=== PATIENT | female | born 1955 | race Hispanic/Latino ===

== ENCOUNTER 2018-01-17 15:17 | Inpatient (IN) | payer MEDICAID, MEDICARE, OTHER ==
[~2018-01-17 15:17] MED LIST: QUELICIN ONE; VERSED IV ONE
[2018-01-17] MEDS ORDERED: NACL 0.9% 1000 ML 1,000 ML ONE ×3 (15:21→22:14)
[2018-01-17] MEDS ORDERED: NACL 0.9% 500 ML 500 ML IV ONE (15:33)
[2018-01-17] MEDS ORDERED: D50W (25GM) Vial IV ONE (15:38)
[2018-01-17] MEDS ORDERED: D50W (25GM) Syringe IV ONE ×3 (16:00→19:31)
[2018-01-17] MEDS ORDERED: VERSED IV ONE (16:02)
[2018-01-17] MEDS ORDERED: DIPRIVAN 10 MG/ML 1,000 MG/100 ML BOTTLE IV ONE (16:06)
[2018-01-17] MEDS ORDERED: QUELICIN IV ONE (16:30)
--- NOTE | 2018-01-17 16:35 | Emergency Department Report ---
ED Altered Mental Status HPI - General Chief Complaint: Hypoglycemia Stated Complaint: LOW BLOOD PRESSURE Time Seen by Provider: 01/17/18 15:45 Source: patient, EMS Mode of arrival: Stretcher Limitations: No Limitations - History of Present Illness Initial Comments: She is a 62-year-old female that presented to the emergency room via EMS found down in bathroom. Patient is A&OX2. Patient is oriented to person and place. But confused to situation and and date. Patient was found to be hypoxic by EMS and placed on nonrebreather MD Complaint: altered mental status, confusion, decreased responsiveness, weakness -: Sudden Severity: severe Context: unknown Associated Symptoms: denies other symptoms Treatments Prior to Arrival: glucose, IV fluid, oxygen - Related Data Home Medications Medication Instructions Recorded Confirmed Last Taken Lisinopril 40 mg PO DAILY 01/17/18 01/17/18 Unknown Allergies Allergy/AdvReac Type Severity Reaction Status Date / Time Penicillins Allergy Hives Verified 01/17/18 15:27 ED Review of Systems ROS: Stated complaint: LOW BLOOD PRESSURE Other details as noted in HPI Comment: Unobtainable due to pts medical conditions ED Past Medical Hx - Past Medical History Previous Medical History?: Yes Hx Hypertension: Yes - Surgical History Past Surgical History?: No - Family History Family history: no significant - Social History Smoking Status: Never Smoker Substance Use Type: None - Medications Home Medications: Home Medications Medication Instructions Recorded Confirmed Last Taken Type Lisinopril 40 mg PO DAILY 01/17/18 01/17/18 Unknown History ED Physical Exam - General Limitations: No Limitations General appearance: alert, lethargic, in distress - Head Head exam: Present: atraumatic, normocephalic - Eye Eye exam: Present: normal appearance Pupils: Present: normal accommodation - ENT ENT exam: Present: mucous membranes dry - Neck Neck exam: Present: normal inspection - Respiratory Respiratory exam: Present: respiratory distress, rhonchi, accessory muscle use, decreased breath sounds - Cardiovascular Cardiovascular Exam: Present: regular rate, normal rhythm. Absent: systolic murmur, diastolic murmur, rubs, gallop - GI/Abdominal GI/Abdominal exam: Present: soft, normal bowel sounds - Extremities Exam Extremities exam: Present: normal inspection - Back Exam Back exam: Present: normal inspection - Neurological Exam Neurological exam: Present: altered - Skin Skin exam: Present: warm, dry, intact, normal color. Absent: rash ED Course Vital Signs 01/17/18 01/17/18 01/17/18 15:27 17:06 18:38 Temperature 97 F L Pulse Rate 99 H 89 90 Respiratory 16 Rate Blood Pressure 83/45 59/32 Blood Pressure 93/49 [Left] O2 Sat by Pulse 99 97 Oximetry 01/17/18 01/17/18 19:02 19:14 Temperature Pulse Rate 90 90 Respiratory Rate Blood Pressure Blood Pressure 77/47 81/47 [Left] O2 Sat by Pulse Oximetry - Reevaluation(s) Reevaluation #1: Patient found to be hypotensive and hypoxic and hypo-thermic. We will intubate patient to support oxygenation and airway. And give hemodynamic support. 01/17/18 15:45 Reevaluation #2: Patient still restless. We'll need to change her sedation back to propofol. Will add another pressor due to hypotension 01/17/18 19:48 Reevaluation #3: Discussed case with Dr. Denny. He agrees to admit patient to ICU.. 01/17/18 20:09 - Central Line Placement Right IJ Consent Obtained: emergent situation Time Out Performed: Yes Patient Placed on Monitor/Pulse Ox: Yes MD Prep: mask, gown, gloves Central Line Prep: Chlorhexidine scrub, sterile drapes applied Local Anesthesia Used: Lidocaine 1% Amount of Anesthesia Used (mls): 5 (mls) Ultrasound Used for Placement: Yes Central Line Lumen Inserted: triple Bloods Obtained for Lab: Yes Central Line Position: good blood return, all ports aspirated, flus, sutured in place with 2-0 Dressing Applied: Tegaderm Post Procedure X-Ray: tip of catheter in good p, pneumothorax seen Patient Tolerated Procedure: well Complications: none - Intubation Time Out Performed: Yes Sedative: Versed Paralytic: Succinylcholine Laryngoscope: fiberoptic video scope ET Tube Size: 7.5 Tube Secured Depth (cm): 22 Tube Secured Location: lips Tube Placement Confirmation: visualized tube passing t, equal breath sounds bilat, no breath sounds over epi, confirmation by capnometr Patient Tolerated Procedure: well Intubation Complications: none - Lab Data Result diagrams: 01/17/18 16:54 01/17/18 16:54 Lab Results 01/17/18 01/17/18 01/17/18 Range/Units 15:25 16:15 16:48 WBC (4.5-11.0) K/mm3 RBC (3.65-5.03) M/mm3 Hgb (10.1-14.3) gm/dl Hct (30.3-42.9) % MCV (79-97) fl MCH (28-32) pg MCHC (30-34) % RDW (13.2-15.2) % Plt Count (140-440) K/mm3 Lymph % (Auto) [place] % (Auto) Eos % (Auto) Baso % (Auto) Lymph # [place] # Eos # Baso # Add Manual Diff Total Counted Seg Neutrophils % Seg Neuts % (Manual) (40.0-70.0) % Band Neutrophils % % Lymphocytes % (Manual) (13.4-35.0) % Reactive Lymphs % (Man) % Monocytes % (Manual) (0.0-7.3) % Eosinophils % (Manual) (0.0-4.3) % Basophils % (Manual) (0.0-1.8) % Metamyelocytes % % Myelocytes % % Promyelocytes % % Blast Cells % % Nucleated RBC % Seg Neutrophils # Seg Neutrophils # Man (1.8-7.7) K/mm3 Band Neutrophils # K/mm3 Lymphocytes # (Manual) (1.2-5.4) K/mm3 Abs React Lymphs (Man) K/mm3 Monocytes # (Manual) (0.0-0.8) K/mm3 Eosinophils # (Manual) (0.0-0.4) K/mm3 Basophils # (Manual) (0.0-0.1) K/mm3 Metamyelocytes # K/mm3 Myelocytes # K/mm3 Promyelocytes # K/mm3 Blast Cells # K/mm3 WBC Morphology Hypersegmented Neuts Hyposegmented Neuts Hypogranular Neuts Smudge Cells Toxic Granulation Toxic Vacuolation Dohle Bodies Pelger-Huet Anomaly Opal Rods Platelet Estimate Clumped Platelets Plt Clumps, EDTA Large Platelets Giant Platelets Platelet Satelliting Plt Morphology Comment RBC Morphology Dimorphic RBCs Polychromasia Hypochromasia Poikilocytosis Anisocytosis Microcytosis Macrocytosis Spherocytes Pappenheimer Bodies Sickle Cells Target Cells Tear Drop Cells Ovalocytes Helmet Cells Frankel-Pollock Bodies [place] Cells Bite Cells Crenated Cell Elliptocytes Acanthocytes (Spur) Rouleaux Hemoglobin C Crystals Schistocytes Malaria parasites Brock Bodies Hem Pathologist Commnt PT (12.2-14.9) Sec. INR (0.87-1.13) POC ABG pH 7.099 L (7.35-7.45) POC ABG pCO2 58.9 H (35-45) POC ABG pO2 149 H (80-105) POC ABG HCO3 18.3 POC ABG Total CO2 20 POC ABG O2 Sat 98 POC ABG Base Excess -11 VBG pH (7.320-7.420) FiO2 100 % Sodium (137-145) mmol/L Potassium (3.6-5.0) mmol/L Chloride (98-107) mmol/L Carbon Dioxide (22-30) mmol/L Anion Gap mmol/L BUN (7-17) mg/dL Creatinine (0.7-1.2) mg/dL Estimated GFR ml/min BUN/Creatinine Ratio % Glucose (65-100) mg/dL POC Glucose < 40 L 121 H (70-105) Lactic Acid (0.7-2.0) mmol/L Calcium (8.4-10.2) mg/dL Total Bilirubin (0.1-1.2) mg/dL AST (5-40) units/L ALT (7-56) units/L Alkaline Phosphatase (35-129) units/L Total Protein (6.3-8.2) g/dL Albumin (3.9-5) g/dL Albumin/Globulin Ratio % 01/17/18 01/17/18 01/17/18 Range/Units 16:54 16:54 16:54 WBC 8.2 (4.5-11.0) K/mm3 RBC 4.03 (3.65-5.03) M/mm3 Hgb 11.4 (10.1-14.3) gm/dl Hct 36.8 (30.3-42.9) % MCV 91 (79-97) fl MCH 28 (28-32) pg MCHC 31 (30-34) % RDW 14.8 (13.2-15.2) % Plt Count 209 (140-440) K/mm3 Lymph % (Auto) [employer] [place] % (Auto) [employer] Eos % (Auto) [employer] Baso % (Auto) [employer] Lymph # [employer] [place] # [employer] Eos # [employer] Baso # [employer] Add Manual Diff Complete Total Counted 100 Seg Neutrophils % [employer] Seg Neuts % (Manual) 72.0 H (40.0-70.0) % Band Neutrophils % 12.0 % Lymphocytes % (Manual) 3.0 L (13.4-35.0) % Reactive Lymphs % (Man) 0 % Monocytes % (Manual) 4.0 (0.0-7.3) % Eosinophils % (Manual) 1.0 (0.0-4.3) % Basophils % (Manual) 0 (0.0-1.8) % Metamyelocytes % 5.0 % Myelocytes % 1.0 % Promyelocytes % 2.0 % Blast Cells % 0 % Nucleated RBC % Not Reportable Seg Neutrophils # [employer] Seg Neutrophils # Man 5.9 (1.8-7.7) K/mm3 Band Neutrophils # 1.0 K/mm3 Lymphocytes # (Manual) 0.2 L (1.2-5.4) K/mm3 Abs React Lymphs (Man) 0.0 K/mm3 Monocytes # (Manual) 0.3 (0.0-0.8) K/mm3 Eosinophils # (Manual) 0.1 (0.0-0.4) K/mm3 Basophils # (Manual) 0.0 (0.0-0.1) K/mm3 Metamyelocytes # 0.4 K/mm3 Myelocytes # 0.1 K/mm3 Promyelocytes # 0.2 K/mm3 Blast Cells # 0.0 K/mm3 WBC Morphology Not Reportable Hypersegmented Neuts Not Reportable Hyposegmented Neuts Not Reportable Hypogranular Neuts Not Reportable Smudge Cells Not Reportable Toxic Granulation Not Reportable Toxic Vacuolation Not Reportable Dohle Bodies Not Reportable Pelger-Huet Anomaly Not Reportable Opal Rods Not Reportable Platelet Estimate Appears normal Clumped Platelets Not Reportable Plt Clumps, EDTA Not Reportable Large Platelets Not Reportable Giant Platelets Not Reportable Platelet Satelliting Not Reportable Plt Morphology Comment Not Reportable RBC Morphology Normal Dimorphic RBCs Not Reportable Polychromasia Not Reportable Hypochromasia Not Reportable Poikilocytosis Not Reportable Anisocytosis Not Reportable Microcytosis Not Reportable Macrocytosis Not Reportable Spherocytes Not Reportable Pappenheimer Bodies Not Reportable Sickle Cells Not Reportable Target Cells Not Reportable Tear Drop Cells Not Reportable Ovalocytes Not Reportable Helmet Cells Not Reportable Frankel-Pollock Bodies Not Reportable [place] Not Reportable [place] Cells Not Reportable Bite Cells Not Reportable Crenated Cell Not Reportable Elliptocytes Not Reportable Acanthocytes (Spur) Not Reportable Rouleaux Not Reportable Hemoglobin C Crystals Not Reportable Schistocytes Not Reportable Malaria parasites Not Reportable Brock Bodies Not Reportable Hem Pathologist Commnt No PT 18.5 H (12.2-14.9) Sec. INR 1.45 H (0.87-1.13) POC ABG pH (7.35-7.45) POC ABG pCO2 (35-45) POC ABG pO2 (80-105) POC ABG HCO3 POC ABG Total CO2 POC ABG O2 Sat POC ABG Base Excess VBG pH (7.320-7.420) FiO2 % Sodium 136 L (137-145) mmol/L Potassium 3.7 (3.6-5.0) mmol/L Chloride 97.8 L (98-107) mmol/L Carbon Dioxide 16 L (22-30) mmol/L Anion Gap 26 mmol/L BUN 43 H (7-17) mg/dL Creatinine 3.3 H (0.7-1.2) mg/dL Estimated GFR 14 ml/min BUN/Creatinine Ratio 13 % Glucose 121 H (65-100) mg/dL POC Glucose (70-105) Lactic Acid (0.7-2.0) mmol/L Calcium 6.7 L (8.4-10.2) mg/dL Total Bilirubin 0.40 (0.1-1.2) mg/dL AST 17 (5-40) units/L ALT 8 (7-56) units/L Alkaline Phosphatase 54 (35-129) units/L Total Protein 4.4 L (6.3-8.2) g/dL Albumin 2.3 L (3.9-5) g/dL Albumin/Globulin Ratio 1.1 % 01/17/18 01/17/18 01/17/18 Range/Units 16:54 16:54 17:11 WBC (4.5-11.0) K/mm3 RBC (3.65-5.03) M/mm3 Hgb (10.1-14.3) gm/dl Hct (30.3-42.9) % MCV (79-97) fl MCH (28-32) pg MCHC (30-34) % RDW (13.2-15.2) % Plt Count (140-440) K/mm3 Lymph % (Auto) [place] % (Auto) Eos % (Auto) Baso % (Auto) Lymph # [place] # Eos # Baso # Add Manual Diff Total Counted Seg Neutrophils % Seg Neuts % (Manual) (40.0-70.0) % Band Neutrophils % % Lymphocytes % (Manual) (13.4-35.0) % Reactive Lymphs % (Man) % Monocytes % (Manual) (0.0-7.3) % Eosinophils % (Manual) (0.0-4.3) % Basophils % (Manual) (0.0-1.8) % Metamyelocytes % % Myelocytes % % Promyelocytes % % Blast Cells % % Nucleated RBC % Seg Neutrophils # Seg Neutrophils # Man (1.8-7.7) K/mm3 Band Neutrophils # K/mm3 Lymphocytes # (Manual) (1.2-5.4) K/mm3 Abs React Lymphs (Man) K/mm3 Monocytes # (Manual) (0.0-0.8) K/mm3 Eosinophils # (Manual) (0.0-0.4) K/mm3 Basophils # (Manual) (0.0-0.1) K/mm3 Metamyelocytes # K/mm3 Myelocytes # K/mm3 Promyelocytes # K/mm3 Blast Cells # K/mm3 WBC Morphology Hypersegmented Neuts Hyposegmented Neuts Hypogranular Neuts Smudge Cells Toxic Granulation Toxic Vacuolation Dohle Bodies Pelger-Huet Anomaly Opal Rods Platelet Estimate Clumped Platelets Plt Clumps, EDTA Large Platelets Giant Platelets Platelet Satelliting Plt Morphology Comment RBC Morphology Dimorphic RBCs Polychromasia Hypochromasia Poikilocytosis Anisocytosis Microcytosis Macrocytosis Spherocytes Pappenheimer Bodies Sickle Cells Target Cells Tear Drop Cells Ovalocytes Helmet Cells Frankel-Pollock Bodies [place] Cells Bite Cells Crenated Cell Elliptocytes Acanthocytes (Spur) Rouleaux Hemoglobin C Crystals Schistocytes Malaria parasites Rbock Bodies Hem Pathologist Commnt PT (12.2-14.9) Sec. INR (0.87-1.13) POC ABG pH (7.35-7.45) POC ABG pCO2 (35-45) POC ABG pO2 (80-105) POC ABG HCO3 POC ABG Total CO2 POC ABG O2 Sat POC ABG Base Excess VBG pH 7.273 L (7.320-7.420) FiO2 % Sodium (137-145) mmol/L Potassium (3.6-5.0) mmol/L Chloride (98-107) mmol/L Carbon Dioxide (22-30) mmol/L Anion Gap mmol/L BUN (7-17) mg/dL Creatinine (0.7-1.2) mg/dL Estimated GFR ml/min BUN/Creatinine Ratio % Glucose (65-100) mg/dL POC Glucose (70-105) Lactic Acid 4.70 H* 4.30 H* (0.7-2.0) mmol/L Calcium (8.4-10.2) mg/dL Total Bilirubin (0.1-1.2) mg/dL AST (5-40) units/L ALT (7-56) units/L Alkaline Phosphatase (35-129) units/L Total Protein (6.3-8.2) g/dL Albumin (3.9-5) g/dL Albumin/Globulin Ratio % 01/17/18 01/17/18 01/17/18 Range/Units 18:02 18:15 19:21 WBC (4.5-11.0) K/mm3 RBC (3.65-5.03) M/mm3 Hgb (10.1-14.3) gm/dl Hct (30.3-42.9) % MCV (79-97) fl MCH (28-32) pg MCHC (30-34) % RDW (13.2-15.2) % Plt Count (140-440) K/mm3 Lymph % (Auto) [place] % (Auto) Eos % (Auto) Baso % (Auto) Lymph # [place] # Eos # Baso # Add Manual Diff Total Counted Seg Neutrophils % Seg Neuts % (Manual) (40.0-70.0) % Band Neutrophils % % Lymphocytes % (Manual) (13.4-35.0) % Reactive Lymphs % (Man) % Monocytes % (Manual) (0.0-7.3) % Eosinophils % (Manual) (0.0-4.3) % Basophils % (Manual) (0.0-1.8) % Metamyelocytes % % Myelocytes % % Promyelocytes % % Blast Cells % % Nucleated RBC % Seg Neutrophils # Seg Neutrophils # Man (1.8-7.7) K/mm3 Band Neutrophils # K/mm3 Lymphocytes # (Manual) (1.2-5.4) K/mm3 Abs React Lymphs (Man) K/mm3 Monocytes # (Manual) (0.0-0.8) K/mm3 Eosinophils # (Manual) (0.0-0.4) K/mm3 Basophils # (Manual) (0.0-0.1) K/mm3 Metamyelocytes # K/mm3 Myelocytes # K/mm3 Promyelocytes # K/mm3 Blast Cells # K/mm3 WBC Morphology Hypersegmented Neuts Hyposegmented Neuts Hypogranular Neuts Smudge Cells Toxic Granulation Toxic Vacuolation Dohle Bodies Pelger-Huet Anomaly Opal Rods Platelet Estimate Clumped Platelets Plt Clumps, EDTA Large Platelets Giant Platelets Platelet Satelliting Plt Morphology Comment RBC Morphology Dimorphic RBCs Polychromasia Hypochromasia Poikilocytosis Anisocytosis Microcytosis Macrocytosis Spherocytes Pappenheimer Bodies Sickle Cells Target Cells Tear Drop Cells Ovalocytes Helmet Cells Frankel-Pollock Bodies [place] Cells Bite Cells Crenated Cell Elliptocytes Acanthocytes (Spur) Rouleaux Hemoglobin C Crystals Schistocytes Malaria parasites Brock Bodies Hem Pathologist Commnt PT (12.2-14.9) Sec. INR (0.87-1.13) POC ABG pH 7.177 L (7.35-7.45) POC ABG pCO2 45.0 (35-45) POC ABG pO2 87 (80-105) POC ABG HCO3 16.7 POC ABG Total CO2 18 POC ABG O2 Sat 94 POC ABG Base Excess -12 VBG pH (7.320-7.420) FiO2 100 % Sodium (137-145) mmol/L Potassium (3.6-5.0) mmol/L Chloride (98-107) mmol/L Carbon Dioxide (22-30) mmol/L Anion Gap mmol/L BUN (7-17) mg/dL Creatinine (0.7-1.2) mg/dL Estimated GFR ml/min BUN/Creatinine Ratio % Glucose (65-100) mg/dL POC Glucose < 40 L (70-105) Lactic Acid 3.00 H* (0.7-2.0) mmol/L Calcium (8.4-10.2) mg/dL Total Bilirubin (0.1-1.2) mg/dL AST (5-40) units/L ALT (7-56) units/L Alkaline Phosphatase (35-129) units/L Total Protein (6.3-8.2) g/dL Albumin (3.9-5) g/dL Albumin/Globulin Ratio % Critical Care Time: Yes Critical care attestation.: If time is entered above; I have spent that time in minutes in the direct care of this critically ill patient, excluding procedure time. Critical Care Time: 75 minutes spent for critical care time ED Disposition Clinical Impression: Lactic acidosis, Septic shock, Hypotension, Hypoxia, Hypoglycemia Disposition: OP ADMIT IP TO THIS HOSP Is pt being admited?: Yes Does the pt Need Aspirin: No Condition: Critical Time of Disposition: 20:10
[2018-01-17] MEDS ORDERED: NACL 0.9% 1000 ML 1,000 ML IV ONE (16:55)
[2018-01-17] MEDS ORDERED: LEVAQUIN 750MG/150ML 750 MG/150 ML BAG IV ONE (16:56)
[2018-01-17] MEDS ORDERED: VASELINE LIP THERAPY TP PRN (16:57)
[2018-01-17] MEDS ORDERED: NACL 0.9% 500 ML IV SCH (17:00)
[2018-01-17] MEDS ORDERED: VERSED IV NR ×2 (17:00)
[2018-01-17 17:13] LABS: INR 1.45 (0.87-1.13)
[2018-01-17 17:16] LABS: Albumin 2.3 g/dL (3.9-5); Calcium 6.7 mg/dL (8.4-10.2); Hematocrit 36.8 % (30.3-42.9); Hemoglobin 11.4 gm/dl (10.1-14.3); Mean Corpuscular HGB Conc 31 % (30-34); Mean Corpuscular Hemoglobin 28 pg (28-32); Mean Corpuscular Volume 91 fl (79-97); Mean Platelet Volume 8.5 fl (6-12); Platelet Count 209 K/mm3 (140-440); Red Blood Count 4.03 M/mm3 (3.65-5.03); Red Cell Distribution Width 14.8 % (13.2-15.2)
[2018-01-17] MEDS: LEVOPHED DRIP 4 MG/NS 250 ML 4 MG/250 ML BAG IV SCH (18:18)
[2018-01-17 18:22] LABS: Basophils % (Manual) 0 % (0.0-1.8); Myelocytes # (Manual) 0.1 K/mm3; Promyelocytes # (Manual) 0.2 K/mm3; Total Cells Counted 100
[2018-01-17 18:24] LABS: RBC Morphology Normal
[2018-01-17] MEDS: fentaNYL DRIP Premix 2,000 MCG/100 ML BAG IV SCH (18:37)
--- NOTE | 2018-01-17 19:34 | XRay Report ---
FINAL REPORT EXAM: XR CHEST 1V AP HISTORY: line placement TECHNIQUE: Chest single AP view PRIORS: Comparison is dated January 17, 2018 at 1626 hours FINDINGS: The ETT appears to have moved more inferiorly since the prior exam the distal tip overlies the right main bronchus proximally. There is near complete opacification throughout the left antonia thorax consistent with atelectasis at the left lung. Repositioning is recommended. Right IJ catheter has been placed distal tip is overlying the SVC. There is no evidence for pneumothorax post catheter placement. There is a pacemaker again noted. IMPRESSION: ET tube overlying the right main bronchus with near complete atelectasis of the left lung. Recommend repositioning. Could be pulled back 3 centimeters. Right IJ catheter appears in satisfactory position. No evidence for pneumothorax post catheter placement Pacemaker
--- NOTE | 2018-01-17 19:42 | XRay Report ---
FINAL REPORT EXAM: XR CHEST 1V AP HISTORY: possible Sepsis TECHNIQUE: Single AP portable chest PRIORS: Correlation made to a subsequent chest radiograph same date FINDINGS: ET tube present. Tip is just at the glen. There is some developing atelectasis in the left lung. Please see report is subsequent film for further findings. There is right-sided pacemaker present lead wires intact. No additional acute findings IMPRESSION: ET tube position somewhat low. Subsequent film demonstrates positioning of the right main bronchus and referring facility is been notified of the findings Some developing atelectasis seen within the left lung Pacemaker
--- NOTE | 2018-01-17 20:43 | History and Physical Report ---
History of Present Illness Date of examination: 01/17/18 Medications and Allergies Allergies Allergy/AdvReac Type Severity Reaction Status Date / Time Penicillins Allergy Hives Verified 01/17/18 15:27 Home Medications Medication Instructions Recorded Confirmed Last Taken Type Lisinopril 40 mg PO DAILY 01/17/18 01/17/18 Unknown History Active Meds: Active Medications Hydrophilic Ointment (Vaseline Lip Therapy) 1 applic TP Q2HR PRN PRN Reason: Dry Lips Fentanyl Citrate (Fentanyl Drip Premix) 2,000 mcg in 100 mls @ 5.67 mls/hr IV TITR RIGOBERTO; Protocol Last Admin: 01/17/18 18:37 Dose: 1 mcg/kg/hr, 5.67 mls/hr Norepinephrine (Levophed Drip 4 Mg/Ns 250 Ml) 4 mg in 250 mls @ 7.5 mls/hr IV TITR RIGOBERTO; Protocol Last Admin: 01/17/18 18:18 Dose: 12 mcg/min, 45 mls/hr Propofol (Diprivan 10 Mg/Ml) 1,000 mg in 100 mls @ 3.402 mls/hr IV TITR RIGOBERTO; Protocol Multi-Ingred Cream/Lotion/Oil/Oint (Artificial Tears Ophth Oint) 1 applic OU Q4HR PRN PRN Reason: Dry Eye(s) Sodium Chloride (Nacl 0.9% 500 Ml) 1 ml IV DIRECT RIGOBERTO Exam - Constitutional Vitals: Temp Pulse Resp BP Pulse Ox 97 F L 90 16 81/47 97 01/17/18 18:38 01/17/18 19:14 01/17/18 15:27 01/17/18 19:14 01/17/18 17:06 Results - Labs CBC & Chem 7: 01/17/18 16:54 01/17/18 16:54 Labs: Laboratory Last Values WBC 8.2 K/mm3 (4.5-11.0) 01/17/18 16:54 RBC 4.03 M/mm3 (3.65-5.03) 01/17/18 16:54 Hgb 11.4 gm/dl (10.1-14.3) 01/17/18 16:54 Hct 36.8 % (30.3-42.9) 01/17/18 16:54 MCV 91 fl (79-97) 01/17/18 16:54 MCH 28 pg (28-32) 01/17/18 16:54 MCHC 31 % (30-34) 01/17/18 16:54 RDW 14.8 % (13.2-15.2) 01/17/18 16:54 Plt Count 209 K/mm3 (140-440) 01/17/18 16:54 Lymph % (Auto) [facility] 01/17/18 16:54 Sanders % (Auto) [facility] 01/17/18 16:54 Eos % (Auto) [facility] 01/17/18 16:54 Baso % (Auto) [facility] 01/17/18 16:54 Lymph # [facility] 01/17/18 16:54 Sanders # [facility] 01/17/18 16:54 Eos # [facility] 01/17/18 16:54 Baso # [facility] 01/17/18 16:54 Add Manual Diff Complete 01/17/18 16:54 Total Counted 100 01/17/18 16:54 Seg Neutrophils % [facility] 01/17/18 16:54 Seg Neuts % (Manual) 72.0 % (40.0-70.0) H 01/17/18 16:54 Band Neutrophils % 12.0 % 01/17/18 16:54 Lymphocytes % (Manual) 3.0 % (13.4-35.0) L 01/17/18 16:54 Reactive Lymphs % (Man) 0 % 01/17/18 16:54 Monocytes % (Manual) 4.0 % (0.0-7.3) 01/17/18 16:54 Eosinophils % (Manual) 1.0 % (0.0-4.3) 01/17/18 16:54 Basophils % (Manual) 0 % (0.0-1.8) 01/17/18 16:54 Metamyelocytes % 5.0 % 01/17/18 16:54 Myelocytes % 1.0 % 01/17/18 16:54 Promyelocytes % 2.0 % 01/17/18 16:54 Blast Cells % 0 % 01/17/18 16:54 Nucleated RBC % Not Reportable 01/17/18 16:54 Seg Neutrophils # [facility] 01/17/18 16:54 Seg Neutrophils # Man 5.9 K/mm3 (1.8-7.7) 01/17/18 16:54 Band Neutrophils # 1.0 K/mm3 01/17/18 16:54 Lymphocytes # (Manual) 0.2 K/mm3 (1.2-5.4) L 01/17/18 16:54 Abs React Lymphs (Man) 0.0 K/mm3 01/17/18 16:54 Monocytes # (Manual) 0.3 K/mm3 (0.0-0.8) 01/17/18 16:54 Eosinophils # (Manual) 0.1 K/mm3 (0.0-0.4) 01/17/18 16:54 Basophils # (Manual) 0.0 K/mm3 (0.0-0.1) 01/17/18 16:54 Metamyelocytes # 0.4 K/mm3 01/17/18 16:54 Myelocytes # 0.1 K/mm3 01/17/18 16:54 Promyelocytes # 0.2 K/mm3 01/17/18 16:54 Blast Cells # 0.0 K/mm3 01/17/18 16:54 WBC Morphology Not Reportable 01/17/18 16:54 Hypersegmented Neuts Not Reportable 01/17/18 16:54 Hyposegmented Neuts Not Reportable 01/17/18 16:54 Hypogranular Neuts Not Reportable 01/17/18 16:54 Smudge Cells Not Reportable 01/17/18 16:54 Toxic Granulation Not Reportable 01/17/18 16:54 Toxic Vacuolation Not Reportable 01/17/18 16:54 Dohle Bodies Not Reportable 01/17/18 16:54 Pelger-Huet Anomaly Not Reportable 01/17/18 16:54 Opal Rods Not Reportable 01/17/18 16:54 Platelet Estimate Appears normal 01/17/18 16:54 Clumped Platelets Not Reportable 01/17/18 16:54 Plt Clumps, EDTA Not Reportable 01/17/18 16:54 Large Platelets Not Reportable 01/17/18 16:54 Giant Platelets Not Reportable 01/17/18 16:54 Platelet Satelliting Not Reportable 01/17/18 16:54 Plt Morphology Comment Not Reportable 01/17/18 16:54 RBC Morphology Normal 01/17/18 16:54 Dimorphic RBCs Not Reportable 01/17/18 16:54 Polychromasia Not Reportable 01/17/18 16:54 Hypochromasia Not Reportable 01/17/18 16:54 Poikilocytosis Not Reportable 01/17/18 16:54 Anisocytosis Not Reportable 01/17/18 16:54 Microcytosis Not Reportable 01/17/18 16:54 Macrocytosis Not Reportable 01/17/18 16:54 Spherocytes Not Reportable 01/17/18 16:54 Pappenheimer Bodies Not Reportable 01/17/18 16:54 Sickle Cells Not Reportable 01/17/18 16:54 Target Cells Not Reportable 01/17/18 16:54 Tear Drop Cells Not Reportable 01/17/18 16:54 Ovalocytes Not Reportable 01/17/18 16:54 Helmet Cells Not Reportable 01/17/18 16:54 Frankel-Embarrass Bodies Not Reportable 01/17/18 16:54 Comstock Rings Not Reportable 01/17/18 16:54 Jaclyn Cells Not Reportable 01/17/18 16:54 Bite Cells Not Reportable 01/17/18 16:54 Crenated Cell Not Reportable 01/17/18 16:54 Elliptocytes Not Reportable 01/17/18 16:54 Acanthocytes (Spur) Not Reportable 01/17/18 16:54 Rouleaux Not Reportable 01/17/18 16:54 Hemoglobin C Crystals Not Reportable 01/17/18 16:54 Schistocytes Not Reportable 01/17/18 16:54 Malaria parasites Not Reportable 01/17/18 16:54 Brock Bodies Not Reportable 01/17/18 16:54 Hem Pathologist Commnt No 01/17/18 16:54 PT 18.5 Sec. (12.2-14.9) H 01/17/18 16:54 INR 1.45 (0.87-1.13) H 01/17/18 16:54 POC ABG pH 7.177 (7.35-7.45) L 01/17/18 18:02 POC ABG pCO2 45.0 (35-45) 01/17/18 18:02 POC ABG pO2 87 (80-105) 01/17/18 18:02 POC ABG HCO3 16.7 01/17/18 18:02 POC ABG Total CO2 18 01/17/18 18:02 POC ABG O2 Sat 94 03/09/18 18:02 POC ABG Base Excess -12 01/17/18 18:02 VBG pH 7.273 (7.320-7.420) L 01/17/18 16:54 FiO2 100 % 01/17/18 18:02 Sodium 136 mmol/L (137-145) L 01/17/18 16:54 Potassium 3.7 mmol/L (3.6-5.0) 01/17/18 16:54 Chloride 97.8 mmol/L (98-107) L 01/17/18 16:54 Carbon Dioxide 16 mmol/L (22-30) L 01/17/18 16:54 Anion Gap 26 mmol/L 01/17/18 16:54 BUN 43 mg/dL (7-17) H 01/17/18 16:54 Creatinine 3.3 mg/dL (0.7-1.2) H 01/17/18 16:54 Estimated GFR 14 ml/min 01/17/18 16:54 BUN/Creatinine Ratio 13 % 01/17/18 16:54 Glucose 121 mg/dL (65-100) H 01/17/18 16:54 POC Glucose < 40 (70-105) L 01/17/18 19:21 Lactic Acid 3.00 mmol/L (0.7-2.0) H* 01/17/18 18:15 Calcium 6.7 mg/dL (8.4-10.2) L 01/17/18 16:54 Total Bilirubin 0.40 mg/dL (0.1-1.2) 01/17/18 16:54 AST 17 units/L (5-40) 01/17/18 16:54 ALT 8 units/L (7-56) 01/17/18 16:54 Alkaline Phosphatase 54 units/L (35-129) 01/17/18 16:54 Total Protein 4.4 g/dL (6.3-8.2) L 01/17/18 16:54 Albumin 2.3 g/dL (3.9-5) L 01/17/18 16:54 Albumin/Globulin Ratio 1.1 % 01/17/18 16:54
[2018-01-17] MEDS: INTROPIN DRIP 800 MG/D5W 250 ML 800 MG/250 ML BAG IV ONE ×2 (21:12→22:37)
[2018-01-17] MEDS ORDERED: MORPHINE IV PRN (22:07)
[2018-01-17] MEDS ORDERED: SODIUM BICARBONATE FEEDTUBE PRN (22:07)
[2018-01-17] MEDS ORDERED: SIMPLE SYRUP FEEDTUBE PRN ×2 (22:07)
[2018-01-17] MEDS ORDERED: D50W (25GM) Syringe IV PRN ×2 (22:07)
[2018-01-17] MEDS ORDERED: PANCREAZE DR 10,500 UNIT FEEDTUBE PRN (22:07)
[2018-01-17] MEDS ORDERED: DUONEB *Not for PRN Use IH (22:16)
[2018-01-17] MEDS ORDERED: VANCOMYCIN PHARMACY TO DOSE IV SCH (22:16)
[2018-01-17] MEDS: DUONEB *Not for PRN Use IH SCH (23:00)
[2018-01-17] MEDS ORDERED: D5NS 1,000 ML IV SCH (23:00)
[2018-01-17] MEDS ORDERED: MIDAZOLAM 100 MG in NACL 0.9% 80 ML IV SCH (23:00)
[2018-01-17] MEDS ORDERED: ATIVAN 100 MG in NACL 0.9% 50 ML, VIAFLEX EMPTY CONTAINER 0 ML IV SCH (23:00)
[2018-01-17] MEDS ORDERED: SODIUM BICARBONATE 150 MEQ in D5W 1,000 ML IV ONE (23:28)
[2018-01-17] MEDS ORDERED: SODIUM BICARBONATE IV ONE ×2 (23:31→23:45)
[2018-01-17] MEDS ORDERED: Vasostrict 20 UNIT in NACL 0.9% 100 ML IV SCH (23:45)
[2018-01-17] MEDS ORDERED: SODIUM BICARBONATE 100 MEQ in NACL 0.9% 1000 ML 1,000 ML IV SCH (23:45)
--- NOTE | 2018-01-17 23:54 | Event Note ---
Date: 01/17/18 See dictated H/p in reports Sepsis Septic shock Full code Ac resp failure
[2018-01-18] MEDS: HumaLOG SUB-Q SCH ×4 (01:15→19:00)
[2018-01-18] MEDS ORDERED: PROVENTIL IH PRN (01:25)
[2018-01-18] MEDS: ZOSYN/NS 2.25 GM/50ML 2.25 GM/50 ML BAG IV SCH ×3 (01:53→18:36)
[2018-01-18] MEDS ORDERED: VANCOMYCIN 2,000 MG in NACL 0.9% 500 ML 500 ML IV ONE (02:00)
[2018-01-18] MEDS: LEVOPHED DRIP 4 MG/NS 250 ML 4 MG/250 ML BAG IV SCH ×5 (02:51→18:23)
[2018-01-18] MEDS: DUONEB *Not for PRN Use IH SCH ×4 (02:58→21:23)
[2018-01-18] MEDS ORDERED: INTROPIN DRIP 800 MG/D5W 250 ML 800 MG/250 ML BAG IV SCH (04:00)
[2018-01-18 04:03] LABS: Hematocrit 37.8 % (30.3-42.9); Hemoglobin 12.2 gm/dl (10.1-14.3); Mean Corpuscular HGB Conc 32 % (30-34); Mean Corpuscular Hemoglobin 28 pg (28-32); Mean Corpuscular Volume 88 fl (79-97); Platelet Count 292 K/mm3 (140-440); Red Blood Count 4.28 M/mm3 (3.65-5.03); Red Cell Distribution Width 14.5 % (13.2-15.2)
[2018-01-18 04:31] LABS: Albumin 2.4 g/dL (3.9-5); Calcium 6.4 mg/dL (8.4-10.2)
[2018-01-18 04:57] LABS: Basophils % (Manual) 0 % (0.0-1.8); Burr Cells 1+; Eosinophils % (Manual) 0 % (0.0-4.3); Total Cells Counted 100
[2018-01-18 04:58] LABS: Dohle Bodies Few
--- NOTE | 2018-01-18 05:59 | XRay Report ---
FINAL REPORT PROCEDURE: XR CHEST 1V AP TECHNIQUE: Chest radiograph anteroposterior view. CPT 25566 HISTORY: follow up respiratory failure COMPARISON: 01/17/2018 FINDINGS: Heart: Normal. Mediastinum/Vessels: Normal. Lungs/Pleural space: Right lung is clear. There is increased aeration of the left lung compared to prior study suggesting improved pneumonitis or atelectasis. There is residual opacification of the lower half of the left lung field. There is no pneumothorax.. Bony thorax: No acute osseous abnormality. Life support devices: Endotracheal tube is in the mid trachea. NG tube is in the stomach. There is a right-sided central venous catheter. The tip is in the superior vena cava. Pacemaker leads are in proper position.. IMPRESSION: The heart size is normal.. Right lung is clear. There is increased aeration of the left lung compared to prior study suggesting improved pneumonitis or atelectasis. There is residual opacification of the lower half of the left lung field. There is no pneumothorax.. Endotracheal tube is in the mid trachea. NG tube is in the stomach. There is a right-sided central venous catheter. The tip is in the superior vena cava. Pacemaker leads are in proper position..
[2018-01-18] MEDS ORDERED: SODIUM BICARBONATE 150 MEQ in D5W 1,000 ML IV ONE (07:00)
[2018-01-18] MEDS ORDERED: D50W (25GM) Syringe IV ONE (07:00)
[2018-01-18] MEDS: fentaNYL DRIP Premix 2,000 MCG/100 ML BAG IV SCH (07:52)
[2018-01-18] MEDS: DIPRIVAN 10 MG/ML 1,000 MG/100 ML BOTTLE IV SCH ×2 (08:22→13:21)
[2018-01-18] MEDS: ARTIFICIAL TEARS OPHTH OINT OU PRN (08:46)
--- NOTE | 2018-01-18 09:26 | Consultation ---
History of Present Illness - History of Present Illness Thank you for the consultation patient was evaluated today. Source of information; From the current chart History of presenting illness; Patient is a 62-year-old female who was brought into the ER after she was found in the bathroom, she was also noted to be confused disoriented and was hypoxic, for which she was placed on nonrebreather. Patient was taking lisinopril at home, upon arrival in the ER her blood pressure was running in low 50s to 70s systolic. Upon arrival be given was 42 creatinine was 3.3 with a bicarbonate of 16 and potassium of 3.7. She was admitted with lactic acidosis septic shock hypotension and hypoxemia and hypoglycemia, no further information is obtained as there is no other family member available here at the bedside Patient is currently being followed by pulmonary services for respiratory failure requiring ventilatory support Is also history of cocaine abuse past medical history: Unable to obtain Home medication: Lisinopril Current allergies: Penicillin Social history: History of drug abuse Family history: Unable to obtain Review of systems: Unable to obtain Labs and x-rays: Were reviewed from the current chart Physical examination General: No acute distress HEENT: Oral mucosa moist no pharyngeal erythema no pallor or icterus no uremic order Neck: Supple no evidence of any thyromegaly trachea midline no JVD Chest: Clear to auscultation no crackles are also wheezes anteriorly Heart: Regular rate and rhythm S1-S2 heard no S3-S4 Abdomen: Soft nontender no renal bruit no CVA tenderness no suprapubic fullness no organomegaly Extremity: Minimal edema dry skin no peripheral cyanosis pulses palpable Neurological: appears to be encephalopathic no evidence of any tremors or seizure activity Back: Nontender thoracolumbar spine Musculoskeletal: No joint effusion noted Skin: No petechial rash/noted Assessment and plan Assessment and plan are as follows Patient was evaluated today discussed with ICU nurse Acute renal failure in a patient who is 62-year-old admitted with drug abuse, noted with severe lactic acidosis hypotensive on vasopressors, currently intubated also has respiratory failure multiorgan failure-like picture doing poorly on ventilator Hemodynamically patient is doing relatively better discussed with ICU nurse Current labs show hemoglobin 12.2, ABG pH 7.09 PCO2 31 better lactic acid level XI.1 potassium 4.7 bicarbonate of 14 creatinine is 3.4 Patient is currently oliguric Patient likely does require renal placement therapy at the very low blood flow cooler dialysate, she is going to be a high risk candidate in terms of dialysis as well and mortality risk in general is very high given the clinical scenario Would like to discuss with family about options here, with patient's family/ immediate relative If they agree hemodialysis can be attempted as tolerated if not would like to discontinue hemodialysis History of hypertension on lisinopril 40 mg once a day in the outpatient setting patient was profoundly hypotensive upon arrival Chest x-ray shows evidence of possible atelectasis of the lung Patient was found in the bathroom, Overall prognosis extremely poor to grim fertility risk is high Continue with supportive care Thank you for the consultation. Medications and Allergies Allergies Allergy/AdvReac Type Severity Reaction Status Date / Time Penicillins Allergy Hives Verified 01/17/18 15:27 Home Medications Medication Instructions Recorded Confirmed Last Taken Type Lisinopril 40 mg PO DAILY 01/17/18 01/17/18 Unknown History Active Meds: Active Medications Acetaminophen (Tylenol) 650 mg FEEDTUBE Q6H PRN PRN Reason: Pain MILD(1-3)/Fever >100.5/WHEELER Albuterol (Proventil) 2.5 mg IH Q4HRT PRN PRN Reason: Shortness Of Breath Albuterol/Ipratropium (Duoneb *Not For Prn Use*) 1 ampul IH Q6HRT [facility] Last Admin: 01/18/18 08:00 Dose: 1 ampul Lipase/Protease/Amylase (Pancreaze Dr 10,500 Unit) 1 each FEEDTUBE PRN PRN PRN Reason: For Clogged Feeding Tube Dextrose (D50w (25gm) Syringe) 50 ml IV PRN PRN PRN Reason: Hypoglycemia Famotidine (Pepcid) 20 mg IV DAILY [facility] Heparin Sodium (Porcine) (Heparin) 5,000 unit SUB-Q Q12HR [facility] Hydromorphone HCl (Dilaudid) 0.5 mg IV Q3H PRN PRN Reason: Pain , Severe (7-10) Hydrophilic Ointment (Vaseline Lip Therapy) 1 applic TP Q2HR PRN PRN Reason: Dry Lips Fentanyl Citrate (Fentanyl Drip Premix) 2,000 mcg in 100 mls @ 5.67 mls/hr IV TITR [facility]; Protocol Last Admin: 01/18/18 07:52 Dose: 2 mcg/kg/hr, 11.34 mls/hr Norepinephrine (Levophed Drip 4 Mg/Ns 250 Ml) 4 mg in 250 mls @ 7.5 mls/hr IV TITR RIGOBERTO; Protocol Last Admin: 01/18/18 07:40 Dose: 30 mcg/min, 112.5 mls/hr Propofol (Diprivan 10 Mg/Ml) 1,000 mg in 100 mls @ 3.402 mls/hr IV TITR RIGOBERTO; Protocol Last Admin: 01/18/18 08:22 Dose: 25 mcg/kg/min, 17.01 mls/hr Piperacillin Sod/Tazobactam Sod (Zosyn/Ns 2.25 Gm/50ml) 2.25 gm in 50 mls @ 100 mls/hr IV Q8H RIGOBERTO; Protocol Last Admin: 01/18/18 08:40 Dose: 100 mls/hr Lorazepam 100 mg/ Sodium Chloride/ Miscellaneous Information 100 mls @ 1 mls/ hr IV TITR RIGOBERTO; Protocol Vasopressin 20 unit/ Sodium (Chloride) 101 mls @ 9.09 mls/hr IV TITR RIGOBERTO; Protocol Stop: 01/22/18 23:59 Dopamine HCl/Dextrose (Intropin Drip 800 Mg/D5w 250 Ml) 800 mg in 250 mls @ 4.252 mls/hr IV TITR RIGOBERTO; Protocol Last Admin: 01/18/18 03:36 Dose: 20 mcg/kg/min, 42.524 mls/hr Sodium Bicarbonate 150 meq/ (Dextrose) 1,150 mls @ 125 mls/hr IV ONCE.ED ONE Stop: 01/18/18 16:11 Insulin Human Lispro (Humalog) 0 unit SUB-Q Q6HR RIGOBERTO; Protocol Last Admin: 01/18/18 01:15 Dose: Not Given Methylprednisolone Sodium Succinate (Solu-Medrol) 40 mg IV Q8H RIGOBERTO Last Admin: 01/18/18 01:58 Dose: 40 mg Metoclopramide HCl (Reglan) 10 mg IV Q6H PRN PRN Reason: Nausea And Vomiting Morphine Sulfate (Morphine) 2 mg IV Q4H PRN PRN Reason: Pain, Moderate (4-6) Multi-Ingred Cream/Lotion/Oil/Oint (Artificial Tears Ophth Oint) 1 applic OU Q4HR PRN PRN Reason: Dry Eye(s) Last Admin: 01/18/18 08:46 Dose: 1 applic Simple Syrup (Simple Syrup) 15 ml FEEDTUBE PRN PRN PRN Reason: Hypoglycemia Simple Syrup (Simple Syrup) 30 ml FEEDTUBE PRN PRN PRN Reason: Hypoglycemia Sodium Bicarbonate (Sodium Bicarbonate) 325 mg FEEDTUBE PRN PRN PRN Reason: For Clogged Feeding Tube Sodium Chloride (Nacl 0.9% 500 Ml) 1 ml IV DIRECT RIGOBERTO Sodium Chloride (Sodium Chloride Flush Syringe 10 Ml) 10 ml IV BID RIGOBERTO Sodium Chloride (Sodium Chloride Flush Syringe 10 Ml) 10 ml IV PRN PRN PRN Reason: LINE FLUSH Vancomycin HCl (Vancomycin Pharmacy To Dose) 1 each IV PKCONSULT RIGOBERTO; Protocol Exam - Vital Signs Vital signs: Vital Signs Pulse Resp BP 95 H 25 H 78/42 01/17/18 15:15 01/17/18 15:15 01/17/18 15:15 Results - Lab Results 02/12/18 06:09 02/14/18 06:04 Most recent lab results Calcium 6.4 mg/dL (8.4-10.2) L 01/18/18 03:21
[2018-01-18] MEDS: PEPCID IV SCH (09:46)
[2018-01-18] MEDS: HEPARIN SUB-Q SCH ×2 (09:46→22:30)
--- NOTE | 2018-01-18 10:52 | Operative Report ---
Operative Report Operative Report: EXAM: ULTRASOUND GUIDED PLACEMENT OF VAS-CATH CLINICAL INDICATION: ACUTE RENAL FAILURE DATE: 01/18/2018 Procedure: PROCEDURE: Following an explanation of the risks, benefits and alternatives; written informed consent was obtained. The procedure was performed at bedside in the ICU. Initial ultrasound evaluation of the patient' s right groin demonstrated a patent right common femoral vein. The patient's right groin was prepped and draped in the usual sterile fashion. 1% lidocaine was used for anesthesia. Under ultrasound guidance, the right common femoral vein was cannulated with a 7 cm 18-gauge needle. A 0.035 guidewire was advanced centrally easily. The needle was removed and following serial dilation, a 30 cm dialysis catheter was advanced over the guidewire centrally. The guidewire was removed. Nonpulsatile blood return from all 3 ports. The ports were flushed with sterile saline. The catheter was securely fasten the skin surface using 2-0 nylon suture and a sterile dressing applied. The patient tolerated the procedure well. There were no immediate post procedure complications. IMPRESSION: Ultrasound guided placement of Vas-Cath via the right common femoral vein
--- NOTE | 2018-01-18 11:00 | Progress Note ---
Assessment and Plan //Acute respiratory failure - Likely from drug abuse and aspiration //Sepsis likely from aspiration pneumonia - We'll continue broad-spectrum antibiotic for now -We'll follow culture, serial chest x-rays //Septic shock requiring 3 pressors - Continue IV antibiotics and IV fluid - Wean off pressors as tolerated //JANESSA likely due to tumor necrosis from severe sepsis - Continue IV fluid, monitor renal function - Avoid nephrotoxins, nephrology consulted //History of cocaine abuse, UDS pending //Acute encephalopathy - Multifactorial, likely from drug abuse vs severe sepsis - will obtain CT head //Lactic acidosis - Likely from severe sepsis and along with decline in renal function - placed on bicarbonate drip Brief history: 62-year-old admitted with drug abuse, unresponsive found in the bathroom, noted with severe lactic acidosis hypotensive on vasopressors, currently intubated for respiratory failure . Radiological test: Chest x-ray: Left lung atelectasis versus possible infiltrate Hospitalist Physical exam: GENERAL: well-developed and well-nourished elderly WF lying on bed intubated and sedated HEENT: Normocephalic. Atraumatic. No conjunctival congestion or icterus. Patient has dry mucous membranes. NECK: Supple. Trachea midline. ET tube in place CHEST/LUNGS: Clear to auscultated bilaterally, breathing underwent. Positive for a few wheezes, crackles or rhonchi. HEART/CARDIOVASCULAR: Regular in rate and rhythm. S1 and S2 positive. ABDOMEN: Abdomen is soft, nontender. Patient has normal bowel sounds. SKIN: There is no rash. Warm and dry. NEURO: Sedated, does not follow any command MUSCULOSKELETAL: No joint effusion EXTRIMITY: No edema, no cyanosis or clubbing. PSYCH: Unable to assess Subjective Date of service: 01/18/18 Interval history: Patient seen and examined in the ICU Medical record and medication list reviewed Discussed with RN at the bedside Patient remained intubated and sedated, unable to follow any command Objective - Constitutional Vitals: Vital Signs - 12hr 01/17/18 01/17/18 01/17/18 23:00 23:15 23:16 Temperature Pulse Rate 99 H 99 H 100 H Pulse Rate [ Anterior Bilateral Throughout] Respiratory 24 24 Rate Respiratory Rate [Anterior Bilateral Throughout] Blood Pressure 66/40 68/38 73/35 O2 Sat by Pulse 86 88 88 Oximetry 01/17/18 01/17/18 01/18/18 23:30 23:45 00:01 Temperature Pulse Rate 94 H 83 95 H Pulse Rate [ Anterior Bilateral Throughout] Respiratory 30 H 25 H 30 H Rate Respiratory Rate [Anterior Bilateral Throughout] Blood Pressure 51/30 51/30 51/30 O2 Sat by Pulse 83 L 71 L Oximetry 01/18/18 01/18/18 01/18/18 00:15 00:30 00:40 Temperature Pulse Rate 81 99 H 97 H Pulse Rate [ Anterior Bilateral Throughout] Respiratory 29 H 30 H 30 H Rate Respiratory Rate [Anterior Bilateral Throughout] Blood Pressure 51/30 83/46 63/33 O2 Sat by Pulse Oximetry 01/18/18 01/18/18 01/18/18 02:00 02:58 03:08 Temperature Pulse Rate Pulse Rate [ 102 H 104 H Anterior Bilateral Throughout] Respiratory 30 H Rate Respiratory 30 H 29 H Rate [Anterior Bilateral Throughout] Blood Pressure O2 Sat by Pulse Oximetry 01/18/18 01/18/18 01/18/18 03:35 03:41 03:50 Temperature Pulse Rate 92 H 96 H 98 H Pulse Rate [ Anterior Bilateral Throughout] Respiratory 29 H 20 30 H Rate Respiratory Rate [Anterior Bilateral Throughout] Blood Pressure 58/30 58/30 O2 Sat by Pulse Oximetry 01/18/18 01/18/18 01/18/18 04:00 04:01 04:11 Temperature 98.5 F Pulse Rate 103 H 107 H Pulse Rate [ Anterior Bilateral Throughout] Respiratory 30 H 25 H 29 H Rate Respiratory Rate [Anterior Bilateral Throughout] Blood Pressure 85/31 85/31 O2 Sat by Pulse Oximetry 01/18/18 01/18/18 01/18/18 04:15 04:21 04:31 Temperature Pulse Rate 105 H 109 H 108 H Pulse Rate [ Anterior Bilateral Throughout] Respiratory 30 H 19 Rate Respiratory Rate [Anterior Bilateral Throughout] Blood Pressure 95/59 71/45 71/45 O2 Sat by Pulse 105 H 82 L Oximetry 01/18/18 01/18/18 01/18/18 04:41 04:51 05:00 Temperature Pulse Rate 105 H 105 H 106 H Pulse Rate [ Anterior Bilateral Throughout] Respiratory 30 H 30 H 30 H Rate Respiratory Rate [Anterior Bilateral Throughout] Blood Pressure 71/45 95/59 103/66 O2 Sat by Pulse 96 93 Oximetry 01/18/18 01/18/18 01/18/18 07:56 08:00 08:09 Temperature 98.7 F Pulse Rate 106 H Pulse Rate [ 106 H 104 H Anterior Bilateral Throughout] Respiratory Rate Respiratory 34 H 30 H Rate [Anterior Bilateral Throughout] Blood Pressure 132/58 O2 Sat by Pulse 96 Oximetry - Labs CBC & Chem 7: 01/18/18 03:21 01/18/18 03:21 Labs: Abnormal lab results 01/17/18 01/17/18 01/17/18 Range/Units 15:25 16:15 16:48 Seg Neuts % (Manual) (40.0-70.0) % Lymphocytes % (Manual) (13.4-35.0) % Monocytes % (Manual) (0.0-7.3) % Lymphocytes # (Manual) (1.2-5.4) K/mm3 Monocytes # (Manual) (0.0-0.8) K/mm3 PT (12.2-14.9) Sec. INR (0.87-1.13) POC ABG pH 7.099 L (7.35-7.45) POC ABG pCO2 58.9 H (35-45) POC ABG pO2 149 H (80-105) VBG pH (7.320-7.420) Sodium (137-145) mmol/L Chloride (98-107) mmol/L Carbon Dioxide (22-30) mmol/L BUN (7-17) mg/dL Creatinine (0.7-1.2) mg/dL Glucose (65-100) mg/dL POC Glucose < 40 L 121 H (70-105) Hemoglobin A1c (4-6) % Lactic Acid (0.7-2.0) mmol/L Calcium (8.4-10.2) mg/dL AST (5-40) units/L Total Protein (6.3-8.2) g/dL Albumin (3.9-5) g/dL 01/17/18 01/17/18 01/17/18 Range/Units 16:54 16:54 16:54 Seg Neuts % (Manual) 72.0 H (40.0-70.0) % Lymphocytes % (Manual) 3.0 L (13.4-35.0) % Monocytes % (Manual) (0.0-7.3) % Lymphocytes # (Manual) 0.2 L (1.2-5.4) K/mm3 Monocytes # (Manual) (0.0-0.8) K/mm3 PT 18.5 H (12.2-14.9) Sec. INR 1.45 H (0.87-1.13) POC ABG pH (7.35-7.45) POC ABG pCO2 (35-45) POC ABG pO2 (80-105) VBG pH (7.320-7.420) Sodium 136 L (137-145) mmol/L Chloride 97.8 L (98-107) mmol/L Carbon Dioxide 16 L (22-30) mmol/L BUN 43 H (7-17) mg/dL Creatinine 3.3 H (0.7-1.2) mg/dL Glucose 121 H (65-100) mg/dL POC Glucose (70-105) Hemoglobin A1c (4-6) % Lactic Acid (0.7-2.0) mmol/L Calcium 6.7 L (8.4-10.2) mg/dL AST (5-40) units/L Total Protein 4.4 L (6.3-8.2) g/dL Albumin 2.3 L (3.9-5) g/dL 01/17/18 01/17/18 01/17/18 Range/Units 16:54 16:54 17:11 Seg Neuts % (Manual) (40.0-70.0) % Lymphocytes % (Manual) (13.4-35.0) % Monocytes % (Manual) (0.0-7.3) % Lymphocytes # (Manual) (1.2-5.4) K/mm3 Monocytes # (Manual) (0.0-0.8) K/mm3 PT (12.2-14.9) Sec. INR (0.87-1.13) POC ABG pH (7.35-7.45) POC ABG pCO2 (35-45) POC ABG pO2 (80-105) VBG pH 7.273 L (7.320-7.420) Sodium (137-145) mmol/L Chloride (98-107) mmol/L Carbon Dioxide (22-30) mmol/L BUN (7-17) mg/dL Creatinine (0.7-1.2) mg/dL Glucose (65-100) mg/dL POC Glucose (70-105) Hemoglobin A1c (4-6) % Lactic Acid 4.70 H* 4.30 H* (0.7-2.0) mmol/L Calcium (8.4-10.2) mg/dL AST (5-40) units/L Total Protein (6.3-8.2) g/dL Albumin (3.9-5) g/dL 01/17/18 01/17/18 01/17/18 Range/Units 18:02 18:15 19:21 Seg Neuts % (Manual) (40.0-70.0) % Lymphocytes % (Manual) (13.4-35.0) % Monocytes % (Manual) (0.0-7.3) % Lymphocytes # (Manual) (1.2-5.4) K/mm3 Monocytes # (Manual) (0.0-0.8) K/mm3 PT (12.2-14.9) Sec. INR (0.87-1.13) POC ABG pH 7.177 L (7.35-7.45) POC ABG pCO2 (35-45) POC ABG pO2 (80-105) VBG pH (7.320-7.420) Sodium (137-145) mmol/L Chloride (98-107) mmol/L Carbon Dioxide (22-30) mmol/L BUN (7-17) mg/dL Creatinine (0.7-1.2) mg/dL Glucose (65-100) mg/dL POC Glucose < 40 L (70-105) Hemoglobin A1c (4-6) % Lactic Acid 3.00 H* (0.7-2.0) mmol/L Calcium (8.4-10.2) mg/dL AST (5-40) units/L Total Protein (6.3-8.2) g/dL Albumin (3.9-5) g/dL 01/17/18 01/17/18 01/17/18 Range/Units 22:36 22:36 23:16 Seg Neuts % (Manual) (40.0-70.0) % Lymphocytes % (Manual) (13.4-35.0) % Monocytes % (Manual) (0.0-7.3) % Lymphocytes # (Manual) (1.2-5.4) K/mm3 Monocytes # (Manual) (0.0-0.8) K/mm3 PT (12.2-14.9) Sec. INR (0.87-1.13) POC ABG pH 7.112 L (7.35-7.45) POC ABG pCO2 50.1 H (35-45) POC ABG pO2 50 L (80-105) VBG pH (7.320-7.420) Sodium (137-145) mmol/L Chloride (98-107) mmol/L Carbon Dioxide (22-30) mmol/L BUN (7-17) mg/dL Creatinine (0.7-1.2) mg/dL Glucose (65-100) mg/dL POC Glucose (70-105) Hemoglobin A1c 9.0 H (4-6) % Lactic Acid 5.50 H* (0.7-2.0) mmol/L Calcium (8.4-10.2) mg/dL AST (5-40) units/L Total Protein (6.3-8.2) g/dL Albumin (3.9-5) g/dL 01/18/18 01/18/18 01/18/18 Range/Units 01:26 03:21 03:21 Seg Neuts % (Manual) 27.0 L (40.0-70.0) % Lymphocytes % (Manual) 3.0 L (13.4-35.0) % Monocytes % (Manual) 14.0 H (0.0-7.3) % Lymphocytes # (Manual) 0.3 L (1.2-5.4) K/mm3 Monocytes # (Manual) 1.4 H (0.0-0.8) K/mm3 PT (12.2-14.9) Sec. INR (0.87-1.13) POC ABG pH (7.35-7.45) POC ABG pCO2 (35-45) POC ABG pO2 (80-105) VBG pH (7.320-7.420) Sodium (137-145) mmol/L Chloride (98-107) mmol/L Carbon Dioxide (22-30) mmol/L BUN (7-17) mg/dL Creatinine (0.7-1.2) mg/dL Glucose (65-100) mg/dL POC Glucose 107 H (70-105) Hemoglobin A1c (4-6) % Lactic Acid 8.00 H* (0.7-2.0) mmol/L Calcium (8.4-10.2) mg/dL AST (5-40) units/L Total Protein (6.3-8.2) g/dL Albumin (3.9-5) g/dL 01/18/18 01/18/18 01/18/18 Range/Units 03:21 04:40 05:07 Seg Neuts % (Manual) (40.0-70.0) % Lymphocytes % (Manual) (13.4-35.0) % Monocytes % (Manual) (0.0-7.3) % Lymphocytes # (Manual) (1.2-5.4) K/mm3 Monocytes # (Manual) (0.0-0.8) K/mm3 PT (12.2-14.9) Sec. INR (0.87-1.13) POC ABG pH 7.093 L (7.35-7.45) POC ABG pCO2 31.5 L (35-45) POC ABG pO2 77 L (80-105) VBG pH (7.320-7.420) Sodium (137-145) mmol/L Chloride 96.9 L (98-107) mmol/L Carbon Dioxide 14 L (22-30) mmol/L BUN 47 H (7-17) mg/dL Creatinine 3.4 H (0.7-1.2) mg/dL Glucose (65-100) mg/dL POC Glucose (70-105) Hemoglobin A1c (4-6) % Lactic Acid 11.10 H* (0.7-2.0) mmol/L Calcium 6.4 L (8.4-10.2) mg/dL AST 47 H (5-40) units/L Total Protein 4.3 L (6.3-8.2) g/dL Albumin 2.4 L (3.9-5) g/dL 01/18/18 01/18/18 Range/Units 06:29 07:06 Seg Neuts % (Manual) (40.0-70.0) % Lymphocytes % (Manual) (13.4-35.0) % Monocytes % (Manual) (0.0-7.3) % Lymphocytes # (Manual) (1.2-5.4) K/mm3 Monocytes # (Manual) (0.0-0.8) K/mm3 PT (12.2-14.9) Sec. INR (0.87-1.13) POC ABG pH (7.35-7.45) POC ABG pCO2 (35-45) POC ABG pO2 (80-105) VBG pH (7.320-7.420) Sodium (137-145) mmol/L Chloride (98-107) mmol/L Carbon Dioxide (22-30) mmol/L BUN (7-17) mg/dL Creatinine (0.7-1.2) mg/dL Glucose (65-100) mg/dL POC Glucose 47 L 149 H (70-105) Hemoglobin A1c (4-6) % Lactic Acid (0.7-2.0) mmol/L Calcium (8.4-10.2) mg/dL AST (5-40) units/L Total Protein (6.3-8.2) g/dL Albumin (3.9-5) g/dL
--- NOTE | 2018-01-18 11:03 | History and Physical Report ---
CHIEF COMPLAINT: Patient was found unresponsive in the bathroom. HISTORY OF PRESENT ILLNESS: A 62-year-old female with a history of hypertension and also polysubstance abuse as per the family, was found in the bathroom. The patient apparently was oriented to person and place before being found in the bathroom, the patient was found confused to situation and date. Was found to be hypoxic and was placed on nonrebreather. When the patient was brought into the ER, the patient had a very low blood pressure and low oxygen saturation. The patient was intubated for protection of airway and also for ventilation effect because of severe hypoxia. No further history is available. The patient apparently lives alone. The patient has a son and daughter who live at a different place. The patient also has an ex- who lives at a different place. The son and daughter and ex- were present in the room during my examination. No known fever or chills. Apparently, he had some flu symptoms for the last one week as per the daughter, but the daughter could not elaborate the symptoms. PAST MEDICAL HISTORY: Significant for hypertension. PAST SURGICAL HISTORY: Not available. FAMILY HISTORY: Hypertension. SOCIAL HISTORY: Apparently smokes and does methamphetamine on a regular basis. REVIEW OF SYSTEMS: Could not be done. The patient is confused, hypotensive and hypoxic at the time of admission. Flu symptoms were one day prior to admission. Otherwise, review of systems could not be done. CURRENT MEDICATIONS: Lisinopril 40 mg daily. PHYSICAL EXAMINATION: GENERAL: The patient is intubated, obese, on ventilator. VITAL SIGNS: Initially blood pressure 60/40. saturations of 60%, heart rate of 106, respiratory rate of 30. After intubation and pressor, blood pressure improved to 103/56, temperature was 98.7. HEENT: The patient intubated. Pupils equal and reactive. Gag reflex present. NECK: Supple, no lymphadenopathy, no thyromegaly. LUNGS: Clear. Scattered rhonchi bilaterally. CARDIOVASCULAR: S1, S2 heard. No gallop, no murmur, no rub. Apical impulse in the left fifth intercostal space and midclavicular line. ABDOMEN: Soft and benign. No hepatosplenomegaly. No guarding, no rigidity. Hernial orifices are normal. EXTREMITIES: Good pedal pulses. CENTRAL NERVOUS SYSTEM: Unresponsive. LABORATORY DATA: White count is 8200, hemoglobin 11.4, hematocrit 36.8, platelet count is 209,000. ABG: pH of 7.177, pCO2 of 45, pO2 of 87, bicarbonate of 15.7. Sodium of 137, BUN and creatinine of 43 and 3.3, lactic acid of 3.0. It has increased to 5.5. Albumin is 2.3. DIAGNOSTIC DATA: Chest x-ray shows left lung atelectasis. Possible left lung infiltrates were present. ASSESSMENT AND PLAN: 1. Septic shock. The patient is in severe sepsis and shock, white count is unreflected. The patient was started on broad-spectrum antibiotics, IV Zosyn and IV vancomycin. The patient's lactic acid is high. The patient is persistently hypotensive and more in favor of sepsis, pending blood cultures and urine cultures. The patient is already intubated; hence, Zosyn was started even though history of PENICILLIN allergy in the past was taken into consideration. 2A Acute resp failure: Sec to L Pneumonia/Aspiration.Vent support 2B Hypotension. The patient started on vasopressin and also IV dopamine. 3. Polysubstance abuse. Urine drug screen ordered. [facility] protocol if necessary. 4. Acute kidney injury. IV fluids for now. Baseline creatinine is not known, 5. Type 2 diabetes, insulin coverage. A1c is 9.0. The family did not mention any history of diabetes. 6. Malnutrition. Albumin is 2.3. Mild to moderate---dietitian consult after extubation. 7. DVT prophylaxis, heparin 5000 q.8 hours. CRITICAL CARE STATEMENT: High probability of a clinically significant sudden or life-threatening deterioration of the pulmonary, cardiac, and renal systems required my full and direct attention, intervention, and personal management. Aggregate critical care time was 40 minutes. The time is in addition to time spent performing reported procedure, but includes the following, data review and interpretation, the patient assessment and monitoring of vital signs, documentation, medication orders and management. JOB# [id number] TONYA/KATE ROCKWELL
[2018-01-18] MEDS ORDERED: NACL 0.9% 100 ML IV PRN ×3 (11:46→20:28)
--- NOTE | 2018-01-18 12:10 | Consultation ---
History of Present Illness Consult date: 01/18/18 Requesting physician: ALESSIA RODNEY Reason for consult: other (Acute respiratory failure, lactic acidosis) History of present illness: 62-year-old admitted with drug abuse, unresponsive found in the bathroom, noted with severe lactic acidosis hypotensive on vasopressors, currently intubated for respiratory failure . Medications and Allergies Allergies Allergy/AdvReac Type Severity Reaction Status Date / Time Penicillins Allergy Hives Verified 01/17/18 15:27 Home Medications Medication Instructions Recorded Confirmed Last Taken Type Lisinopril 40 mg PO DAILY 01/17/18 01/17/18 Unknown History Active Meds: Active Medications Acetaminophen (Tylenol) 650 mg FEEDTUBE Q6H PRN PRN Reason: Pain MILD(1-3)/Fever >100.5/WHEELER Albuterol (Proventil) 2.5 mg IH Q4HRT PRN PRN Reason: Shortness Of Breath Albuterol/Ipratropium (Duoneb *Not For Prn Use*) 1 ampul IH Q6HRT [facility] Last Admin: 01/18/18 08:00 Dose: 1 ampul Lipase/Protease/Amylase (Pancreaze Dr 10,500 Unit) 1 each FEEDTUBE PRN PRN PRN Reason: For Clogged Feeding Tube Dextrose (D50w (25gm) Syringe) 50 ml IV PRN PRN PRN Reason: Hypoglycemia Famotidine (Pepcid) 20 mg IV DAILY [facility] Last Admin: 01/18/18 09:46 Dose: 20 mg Heparin Sodium (Porcine) (Heparin) 5,000 unit SUB-Q Q12HR [facility] Last Admin: 01/18/18 09:46 Dose: 5,000 unit Hydromorphone HCl (Dilaudid) 0.5 mg IV Q3H PRN PRN Reason: Pain , Severe (7-10) Hydrophilic Ointment (Vaseline Lip Therapy) 1 applic TP Q2HR PRN PRN Reason: Dry Lips Fentanyl Citrate (Fentanyl Drip Premix) 2,000 mcg in 100 mls @ 5.67 mls/hr IV TITR RIGOBERTO; Protocol Last Admin: 01/18/18 07:52 Dose: 2 mcg/kg/hr, 11.34 mls/hr Norepinephrine (Levophed Drip 4 Mg/Ns 250 Ml) 4 mg in 250 mls @ 7.5 mls/hr IV TITR RIGOBERTO; Protocol Last Admin: 01/18/18 10:45 Dose: 30 mcg/min, 112.5 mls/hr Propofol (Diprivan 10 Mg/Ml) 1,000 mg in 100 mls @ 3.402 mls/hr IV TITR RIGOBERTO; Protocol Last Admin: 01/18/18 08:22 Dose: 25 mcg/kg/min, 17.01 mls/hr Piperacillin Sod/Tazobactam Sod (Zosyn/Ns 2.25 Gm/50ml) 2.25 gm in 50 mls @ 100 mls/hr IV Q8H RIGOBERTO; Protocol Last Admin: 01/18/18 08:40 Dose: 100 mls/hr Lorazepam 100 mg/ Sodium Chloride/ Miscellaneous Information 100 mls @ 1 mls/ hr IV TITR RIGOBERTO; Protocol Vasopressin 20 unit/ Sodium (Chloride) 101 mls @ 9.09 mls/hr IV TITR RIGOBERTO; Protocol Stop: 01/22/18 23:59 Last Admin: 01/18/18 10:44 Dose: 0.03 units/min, 9.09 mls/hr Dopamine HCl/Dextrose (Intropin Drip 800 Mg/D5w 250 Ml) 800 mg in 250 mls @ 4.252 mls/hr IV TITR RIGOBERTO; Protocol Last Admin: 01/18/18 03:36 Dose: 20 mcg/kg/min, 42.524 mls/hr Sodium Bicarbonate 150 meq/ (Dextrose) 1,150 mls @ 125 mls/hr IV ONCE.ED ONE Stop: 01/18/18 16:11 Last Admin: 01/18/18 11:52 Dose: 125 mls/hr Sodium Chloride (Nacl 0.9%) 100 mls @ 999 mls/hr IV PAYAL PRN PRN Reason: Hypotension Insulin Human Lispro (Humalog) 0 unit SUB-Q Q6HR RIGOBERTO; Protocol Last Admin: 01/18/18 11:48 Dose: Not Given Methylprednisolone Sodium Succinate (Solu-Medrol) 40 mg IV Q8H RIGOBERTO Last Admin: 01/18/18 09:45 Dose: 40 mg Metoclopramide HCl (Reglan) 10 mg IV Q6H PRN PRN Reason: Nausea And Vomiting Morphine Sulfate (Morphine) 2 mg IV Q4H PRN PRN Reason: Pain, Moderate (4-6) Multi-Ingred Cream/Lotion/Oil/Oint (Artificial Tears Ophth Oint) 1 applic OU Q4HR PRN PRN Reason: Dry Eye(s) Last Admin: 01/18/18 08:46 Dose: 1 applic Simple Syrup (Simple Syrup) 15 ml FEEDTUBE PRN PRN PRN Reason: Hypoglycemia Simple Syrup (Simple Syrup) 30 ml FEEDTUBE PRN PRN PRN Reason: Hypoglycemia Sodium Bicarbonate (Sodium Bicarbonate) 325 mg FEEDTUBE PRN PRN PRN Reason: For Clogged Feeding Tube Sodium Chloride (Nacl 0.9% 500 Ml) 1 ml IV DIRECT RIGOBERTO Sodium Chloride (Sodium Chloride Flush Syringe 10 Ml) 10 ml IV BID RIGOBERTO Sodium Chloride (Sodium Chloride Flush Syringe 10 Ml) 10 ml IV PRN PRN PRN Reason: LINE FLUSH Vancomycin HCl (Vancomycin Pharmacy To Dose) 1 each IV PKCONSULT RIGOBERTO; Protocol Physical Examination Vital signs: Vital Signs Pulse Resp BP 95 H 25 H 78/42 01/17/18 15:15 01/17/18 15:15 01/17/18 15:15 GENERAL: well-developed and well-nourished elderly WF lying on bed intubated and sedated Not in any respiratory distress, no ventilator dys-synchrony HEENT: Normocephalic. Atraumatic. No conjunctival congestion or icterus. Patient has dry mucous membranes. NECK: Supple. Trachea midline. ET tube in place CHEST/LUNGS: Clear to auscultated bilaterally, breathing underwent. Positive for a few wheezes, crackles or rhonchi. HEART/CARDIOVASCULAR: Regular in rate and rhythm. S1 and S2 positive. ABDOMEN: Abdomen is soft, nontender. Patient has normal bowel sounds. SKIN: There is no rash. Warm and dry. NEURO: Sedated, does not follow any command MUSCULOSKELETAL: No joint effusion EXTRIMITY: No edema, no cyanosis or clubbing. PSYCH: Unable to assess Results - Laboratory Findings CBC and BMP: 01/19/18 06:50 01/19/18 06:50 ABG POC ABG pH 7.093 (7.35-7.45) L 01/18/18 05:07 POC ABG pCO2 31.5 (35-45) L 01/18/18 05:07 POC ABG pO2 77 (80-105) L 01/18/18 05:07 POC ABG HCO3 9.6 01/18/18 05:07 POC ABG Total CO2 11 01/18/18 05:07 POC ABG O2 Sat 89 01/18/18 05:07 PT/INR, D-dimer PT 18.5 Sec. (12.2-14.9) H 01/17/18 16:54 INR 1.45 (0.87-1.13) H 01/17/18 16:54 Abnormal lab findings: Abnormal Labs 01/17/18 01/17/18 01/17/18 15:25 16:15 16:48 Seg Neuts % (Manual) Lymphocytes % (Manual) Monocytes % (Manual) Lymphocytes # (Manual) Monocytes # (Manual) PT INR POC ABG pH 7.099 L POC ABG pCO2 58.9 H POC ABG pO2 149 H VBG pH Sodium Chloride Carbon Dioxide BUN Creatinine Glucose POC Glucose < 40 L 121 H Hemoglobin A1c Lactic Acid Calcium AST Total Protein Albumin 01/17/18 01/17/18 01/17/18 16:54 16:54 16:54 Seg Neuts % (Manual) 72.0 H Lymphocytes % (Manual) 3.0 L Monocytes % (Manual) Lymphocytes # (Manual) 0.2 L Monocytes # (Manual) PT 18.5 H INR 1.45 H POC ABG pH POC ABG pCO2 POC ABG pO2 VBG pH Sodium 136 L Chloride 97.8 L Carbon Dioxide 16 L BUN 43 H Creatinine 3.3 H Glucose 121 H POC Glucose Hemoglobin A1c Lactic Acid Calcium 6.7 L AST Total Protein 4.4 L Albumin 2.3 L 01/17/18 01/17/18 01/17/18 16:54 16:54 17:11 Seg Neuts % (Manual) Lymphocytes % (Manual) Monocytes % (Manual) Lymphocytes # (Manual) Monocytes # (Manual) PT INR POC ABG pH POC ABG pCO2 POC ABG pO2 VBG pH 7.273 L Sodium Chloride Carbon Dioxide BUN Creatinine Glucose POC Glucose Hemoglobin A1c Lactic Acid 4.70 H* 4.30 H* Calcium AST Total Protein Albumin 01/17/18 01/17/18 01/17/18 18:02 18:15 19:21 Seg Neuts % (Manual) Lymphocytes % (Manual) Monocytes % (Manual) Lymphocytes # (Manual) Monocytes # (Manual) PT INR POC ABG pH 7.177 L POC ABG pCO2 POC ABG pO2 VBG pH Sodium Chloride Carbon Dioxide BUN Creatinine Glucose POC Glucose < 40 L Hemoglobin A1c Lactic Acid 3.00 H* Calcium AST Total Protein Albumin 01/17/18 01/17/18 01/17/18 22:36 22:36 23:16 Seg Neuts % (Manual) Lymphocytes % (Manual) Monocytes % (Manual) Lymphocytes # (Manual) Monocytes # (Manual) PT INR POC ABG pH 7.112 L POC ABG pCO2 50.1 H POC ABG pO2 50 L VBG pH Sodium Chloride Carbon Dioxide BUN Creatinine Glucose POC Glucose Hemoglobin A1c 9.0 H Lactic Acid 5.50 H* Calcium AST Total Protein Albumin 01/18/18 01/18/18 01/18/18 01:26 03:21 03:21 Seg Neuts % (Manual) 27.0 L Lymphocytes % (Manual) 3.0 L Monocytes % (Manual) 14.0 H Lymphocytes # (Manual) 0.3 L Monocytes # (Manual) 1.4 H PT INR POC ABG pH POC ABG pCO2 POC ABG pO2 VBG pH Sodium Chloride Carbon Dioxide BUN Creatinine Glucose POC Glucose 107 H Hemoglobin A1c Lactic Acid 8.00 H* Calcium AST Total Protein Albumin 01/18/18 01/18/18 01/18/18 03:21 04:40 05:07 Seg Neuts % (Manual) Lymphocytes % (Manual) Monocytes % (Manual) Lymphocytes # (Manual) Monocytes # (Manual) PT INR POC ABG pH 7.093 L POC ABG pCO2 31.5 L POC ABG pO2 77 L VBG pH Sodium Chloride 96.9 L Carbon Dioxide 14 L BUN 47 H Creatinine 3.4 H Glucose POC Glucose Hemoglobin A1c Lactic Acid 11.10 H* Calcium 6.4 L AST 47 H Total Protein 4.3 L Albumin 2.4 L 01/18/18 01/18/18 01/18/18 06:29 07:06 11:44 Seg Neuts % (Manual) Lymphocytes % (Manual) Monocytes % (Manual) Lymphocytes # (Manual) Monocytes # (Manual) PT INR POC ABG pH POC ABG pCO2 POC ABG pO2 VBG pH Sodium Chloride Carbon Dioxide BUN Creatinine Glucose POC Glucose 47 L 149 H < 40 L Hemoglobin A1c Lactic Acid Calcium AST Total Protein Albumin 01/18/18 11:46 Seg Neuts % (Manual) Lymphocytes % (Manual) Monocytes % (Manual) Lymphocytes # (Manual) Monocytes # (Manual) PT INR POC ABG pH POC ABG pCO2 POC ABG pO2 VBG pH Sodium Chloride Carbon Dioxide BUN Creatinine Glucose POC Glucose 116 H Hemoglobin A1c Lactic Acid Calcium AST Total Protein Albumin 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 History of cocaine abuse, Acute encephalopathy Lactic acidosis -Continue with mechanical ventilatory support -VAP bundle -Daily evaluation for SATs and SBTs -For HD today per renal service -VTE prophylaxis -Stress ulcer prophylaxis -Empiric antibiotics, plan to de-escalate once cultures results are available -Supplemental oxygen to wean for oxygen saturations>90% -Wean vasopressor support for MAP>65 -Lung protective strategies, ARDS-net protocol -Family updated Critical care time in (mins) excluding proc time.: 45 Critical care attestation.: If time is entered above; I have spent that time in minutes in the direct care of this critically ill patient, excluding procedure time.
[2018-01-18] MEDS ORDERED: CATHFLO IV ONE (15:16)
[2018-01-18] MEDS ORDERED: WATER FOR INJ (PF) IJ ONE (15:30)
[2018-01-18] MEDS: SODIUM CHLORIDE FLUSH SYRINGE 10 ML IV SCH ×2 (16:40→22:31)
[2018-01-18] MEDS ORDERED: NACL 0.9% 1000 ML 1,000 ML ONE (19:58)
[2018-01-18] MEDS ORDERED: HEPARIN IV PRN (20:28)
[2018-01-18] MEDS: LEVOPHED 8 MG in NACL 0.9% 250ML 242 ML IV SCH (22:30)
[2018-01-19] MEDS: HumaLOG SUB-Q SCH ×4 (00:30→18:53)
[2018-01-19] MEDS ORDERED: PANCREAZE DR 10,500 UNIT FEEDTUBE PRN (00:35)
[2018-01-19] MEDS ORDERED: SIMPLE SYRUP FEEDTUBE PRN ×2 (00:35)
[2018-01-19] MEDS ORDERED: SODIUM BICARBONATE FEEDTUBE PRN (00:35)
[2018-01-19] MEDS: DIPRIVAN 10 MG/ML 1,000 MG/100 ML BOTTLE IV SCH ×2 (01:10→15:47)
[2018-01-19] MEDS: DUONEB *Not for PRN Use IH SCH ×4 (01:38→20:43)
[2018-01-19] MEDS ORDERED: VANCOMYCIN 1,750 MG in NACL 0.9% 500 ML 500 ML IV SCH (02:00)
[2018-01-19 07:10] LABS: Hematocrit 36.1 % (30.3-42.9); Mean Corpuscular HGB Conc 33 % (30-34); Mean Corpuscular Hemoglobin 28 pg (28-32); Mean Corpuscular Volume 84 fl (79-97); Platelet Count 136 K/mm3 (140-440); Red Cell Distribution Width 14.5 % (13.2-15.2)
[2018-01-19 07:19] LABS: INR 1.73 (0.87-1.13)
[2018-01-19 07:28] LABS: Calcium 7.1 mg/dL (8.4-10.2)
[2018-01-19] MEDS: ZOSYN/NS 2.25 GM/50ML 2.25 GM/50 ML BAG IV SCH ×3 (09:11→16:30)
[2018-01-19] MEDS: HEPARIN SUB-Q SCH ×2 (09:13→21:36)
[2018-01-19] MEDS: PEPCID IV SCH (09:16)
[2018-01-19] MEDS: REGLAN IV PRN (09:16)
--- NOTE | 2018-01-19 09:46 | XRay Report ---
AP CHEST: HISTORY: Follow up respiratory failure Lines and tubes remain in the same position. There is decreased opacity in the left lung since 01/18/18. The right lung remains generally clear. Mild cardiomegaly is stable. IMPRESSION: There is better aeration of the left lung on today's exam.
[2018-01-19] MEDS ORDERED: VANCOMYCIN VIAL 500 MG in NACL 0.9% 100 ML IV ONE (10:00)
--- NOTE | 2018-01-19 10:18 | Progress Note ---
Subjective Interval history: Patient was seen today for follow-up on multiple renal related issues patient remains on the ventilator critically ill Received hemodialysis treatment yesterday Tolerated fairly well Labs appear to be better today Vitals labs intake output medications were reviewed Social history: Reviewed Allergies: Reviewed Family history: Reviewed Physical examination HEENT: Oral mucosa moist no pallor or icterus, orally intubated Neck: Supple no JVD Chest: Clear to auscultation anteriorly CVS: Regular rate and rhythm S1 and S2 heard Abdomen: Soft nontender no suprapubic masses no organomegaly appreciable Extremity: Dry skin less than 1+ peripheral edema Musculoskeletal: No joint effusion noted in knees and ankle Neurological: encephalopathicDermatology: No petechial rashes Psychiatry: No evidence of any agitation and aggression noted Assessment and plan Acute kidney injury: status post-hemodialysis, no emergent indication for dialysis today and will need reevaluation in the morning History of cocaine abuse, methamphetamine abuse history; this has been discussed with daughter during this admission Encephalopathy: Multifactorial resulting from drug abuse, respiratory failure needs to be followed by primary team, May need a neurology evaluation Lactic acidosis: To monitor and follow, currently oxygenated well Evolving hepatic failure likely ischemic insult Hemodynamically: Fragile to monitor and follow Multi-organ dysfunction Mortality risk is very high, this has been discussed with the daughter already Continue with supportive care Respiratory failure currently intubated Progressive decline in platelet count will check for HIT, may need hematology evaluation follow up on serial lactate level We'll continue to follow and make recommendation from renal standpoint Objective - Vital Signs Vital signs: Vital Signs - 12hr 01/18/18 01/18/18 01/18/18 21:20 21:27 21:30 Temperature Pulse Rate 92 H 91 H Pulse Rate [ 89 Anterior Bilateral Throughout] Respiratory 30 H 20 Rate Respiratory 30 H Rate [Anterior Bilateral Throughout] Blood Pressure 83/47 66/33 O2 Sat by Pulse 88 Oximetry 01/18/18 01/18/18 01/18/18 21:40 21:50 21:51 Temperature 99.8 F H Pulse Rate 91 H 96 H 90 Pulse Rate [ Anterior Bilateral Throughout] Respiratory 30 H 30 H 30 H Rate Respiratory Rate [Anterior Bilateral Throughout] Blood Pressure 148/96 140/84 132/87 O2 Sat by Pulse 97 95 Oximetry 01/18/18 01/18/18 01/18/18 22:00 22:10 22:20 Temperature Pulse Rate 95 H 95 H 97 H Pulse Rate [ Anterior Bilateral Throughout] Respiratory 30 H 30 H 30 H Rate Respiratory Rate [Anterior Bilateral Throughout] Blood Pressure 151/91 156/95 134/86 O2 Sat by Pulse 97 96 94 Oximetry 01/18/18 01/18/18 01/18/18 22:30 22:40 22:50 Temperature Pulse Rate 97 H 100 H 100 H Pulse Rate [ Anterior Bilateral Throughout] Respiratory 30 H 30 H 30 H Rate Respiratory Rate [Anterior Bilateral Throughout] Blood Pressure 134/79 134/79 98/66 O2 Sat by Pulse 95 99 95 Oximetry 01/18/18 01/18/18 01/18/18 23:00 23:10 23:16 Temperature Pulse Rate 100 H 100 H 100 H Pulse Rate [ Anterior Bilateral Throughout] Respiratory 30 H 30 H Rate Respiratory Rate [Anterior Bilateral Throughout] Blood Pressure 98/64 98/64 90/62 O2 Sat by Pulse 95 91 89 Oximetry 01/18/18 01/18/18 01/18/18 23:20 23:30 23:40 Temperature Pulse Rate 101 H 101 H 98 H Pulse Rate [ Anterior Bilateral Throughout] Respiratory 30 H 30 H 30 H Rate Respiratory Rate [Anterior Bilateral Throughout] Blood Pressure 90/62 95/62 95/62 O2 Sat by Pulse 90 88 88 Oximetry 01/18/18 01/19/18 01/19/18 23:50 00:00 00:10 Temperature 99.7 F H Pulse Rate 100 H 101 H 100 H Pulse Rate [ Anterior Bilateral Throughout] Respiratory 30 H 30 H 30 H Rate Respiratory Rate [Anterior Bilateral Throughout] Blood Pressure 93/59 92/59 92/59 O2 Sat by Pulse 86 88 88 Oximetry 01/19/18 01/19/18 01/19/18 00:20 00:30 00:40 Temperature Pulse Rate 99 H 101 H 100 H Pulse Rate [ Anterior Bilateral Throughout] Respiratory 30 H 30 H 30 H Rate Respiratory Rate [Anterior Bilateral Throughout] Blood Pressure 94/61 93/61 94/61 O2 Sat by Pulse 86 88 87 Oximetry 01/19/18 01/19/18 01/19/18 00:50 01:00 01:10 Temperature Pulse Rate 102 H 101 H 101 H Pulse Rate [ Anterior Bilateral Throughout] Respiratory 30 H 30 H 30 H Rate Respiratory Rate [Anterior Bilateral Throughout] Blood Pressure 93/64 80/47 80/47 O2 Sat by Pulse 93 85 88 Oximetry 01/19/18 01/19/18 01/19/18 01:20 01:30 01:33 Temperature Pulse Rate 101 H 102 H Pulse Rate [ 100 H Anterior Bilateral Throughout] Respiratory 30 H 30 H Rate Respiratory 30 H Rate [Anterior Bilateral Throughout] Blood Pressure 94/60 96/64 O2 Sat by Pulse 88 91 Oximetry 01/19/18 01/19/18 01/19/18 01:40 01:44 01:50 Temperature Pulse Rate 101 H 99 H Pulse Rate [ 102 H Anterior Bilateral Throughout] Respiratory 30 H 30 H Rate Respiratory 30 H Rate [Anterior Bilateral Throughout] Blood Pressure 96/64 86/34 O2 Sat by Pulse 94 90 Oximetry 01/19/18 01/19/18 01/19/18 03:00 03:10 03:20 Temperature Pulse Rate 100 H 101 H 105 H Pulse Rate [ Anterior Bilateral Throughout] Respiratory 30 H 30 H 30 H Rate Respiratory Rate [Anterior Bilateral Throughout] Blood Pressure 87/59 87/59 89/57 O2 Sat by Pulse 88 86 87 Oximetry 01/19/18 01/19/18 01/19/18 03:30 03:40 03:50 Temperature Pulse Rate 103 H 105 H 99 H Pulse Rate [ Anterior Bilateral Throughout] Respiratory 30 H 30 H 30 H Rate Respiratory Rate [Anterior Bilateral Throughout] Blood Pressure 81/46 96/64 86/34 O2 Sat by Pulse 77 L Oximetry 01/19/18 01/19/18 01/19/18 03:54 04:00 04:10 Temperature 99.0 F Pulse Rate 97 H 108 H 109 H Pulse Rate [ Anterior Bilateral Throughout] Respiratory 30 H 30 H Rate Respiratory Rate [Anterior Bilateral Throughout] Blood Pressure 102/65 106/67 106/67 O2 Sat by Pulse 91 93 Oximetry 01/19/18 01/19/18 01/19/18 04:20 04:30 04:40 Temperature Pulse Rate 110 H 110 H 110 H Pulse Rate [ Anterior Bilateral Throughout] Respiratory 30 H 30 H 29 H Rate Respiratory Rate [Anterior Bilateral Throughout] Blood Pressure 106/70 107/67 107/67 O2 Sat by Pulse 92 95 Oximetry 01/19/18 01/19/18 01/19/18 04:50 05:00 05:10 Temperature Pulse Rate 110 H 110 H 111 H Pulse Rate [ Anterior Bilateral Throughout] Respiratory 30 H 30 H 30 H Rate Respiratory Rate [Anterior Bilateral Throughout] Blood Pressure 104/67 108/71 108/71 O2 Sat by Pulse 94 Oximetry 01/19/18 01/19/18 01/19/18 05:20 05:30 05:40 Temperature Pulse Rate 111 H 111 H 112 H Pulse Rate [ Anterior Bilateral Throughout] Respiratory 30 H 30 H 30 H Rate Respiratory Rate [Anterior Bilateral Throughout] Blood Pressure 110/70 109/74 109/74 O2 Sat by Pulse 98 94 Oximetry 01/19/18 01/19/18 01/19/18 05:50 06:00 06:10 Temperature Pulse Rate 112 H 111 H 112 H Pulse Rate [ Anterior Bilateral Throughout] Respiratory 30 H 30 H 30 H Rate Respiratory Rate [Anterior Bilateral Throughout] Blood Pressure 115/73 111/71 111/71 O2 Sat by Pulse 95 99 94 Oximetry 01/19/18 01/19/18 01/19/18 06:20 06:30 06:40 Temperature Pulse Rate 113 H 115 H 115 H Pulse Rate [ Anterior Bilateral Throughout] Respiratory 26 H 25 H 26 H Rate Respiratory Rate [Anterior Bilateral Throughout] Blood Pressure 109/71 116/76 116/76 O2 Sat by Pulse 96 96 96 Oximetry 01/19/18 01/19/18 01/19/18 06:50 07:00 07:10 Temperature Pulse Rate 115 H 116 H 116 H Pulse Rate [ Anterior Bilateral Throughout] Respiratory 26 H 26 H 24 Rate Respiratory Rate [Anterior Bilateral Throughout] Blood Pressure 99/56 109/68 109/68 O2 Sat by Pulse 92 92 92 Oximetry 01/19/18 01/19/18 01/19/18 07:20 07:30 07:40 Temperature Pulse Rate 116 H 115 H 115 H Pulse Rate [ Anterior Bilateral Throughout] Respiratory 24 25 H 25 H Rate Respiratory Rate [Anterior Bilateral Throughout] Blood Pressure 113/67 106/70 106/70 O2 Sat by Pulse 93 93 94 Oximetry 01/19/18 01/19/18 01/19/18 07:50 07:52 07:57 Temperature Pulse Rate 114 H 114 H Pulse Rate [ 115 H Anterior Bilateral Throughout] Respiratory 25 H Rate Respiratory 25 H Rate [Anterior Bilateral Throughout] Blood Pressure 105/61 105/61 O2 Sat by Pulse 93 93 Oximetry 01/19/18 01/19/18 01/19/18 08:00 08:04 08:10 Temperature 100.8 F H Pulse Rate 112 H 114 H Pulse Rate [ 111 H Anterior Bilateral Throughout] Respiratory 24 24 Rate Respiratory 24 Rate [Anterior Bilateral Throughout] Blood Pressure 90/60 90/60 O2 Sat by Pulse 93 93 Oximetry 01/19/18 01/19/18 01/19/18 08:20 08:28 08:30 Temperature Pulse Rate 115 H 113 H Pulse Rate [ Anterior Bilateral Throughout] Respiratory 24 24 Rate Respiratory Rate [Anterior Bilateral Throughout] Blood Pressure 112/68 106/66 O2 Sat by Pulse 92 93 93 Oximetry 01/19/18 01/19/18 01/19/18 08:40 08:50 09:00 Temperature Pulse Rate 114 H 114 H 113 H Pulse Rate [ Anterior Bilateral Throughout] Respiratory 24 24 25 H Rate Respiratory Rate [Anterior Bilateral Throughout] Blood Pressure 106/66 105/61 106/63 O2 Sat by Pulse 93 93 92 Oximetry 01/19/18 01/19/18 01/19/18 09:10 09:20 09:30 Temperature Pulse Rate 115 H 115 H 115 H Pulse Rate [ Anterior Bilateral Throughout] Respiratory 24 30 H 25 H Rate Respiratory Rate [Anterior Bilateral Throughout] Blood Pressure 106/63 109/67 116/69 O2 Sat by Pulse 93 95 Oximetry 01/19/18 01/19/18 01/19/18 09:40 09:50 10:00 Temperature Pulse Rate 115 H 115 H 115 H Pulse Rate [ Anterior Bilateral Throughout] Respiratory 24 24 Rate Respiratory Rate [Anterior Bilateral Throughout] Blood Pressure 116/69 106/68 O2 Sat by Pulse 90 93 Oximetry - Lab 01/20/18 05:18 01/20/18 05:18 Most recent lab results Calcium 7.1 mg/dL (8.4-10.2) L 01/19/18 06:50
--- NOTE | 2018-01-19 10:21 | Progress Note ---
Assessment and Plan //Acute respiratory failure - Likely from drug abuse and aspiration -on vent support //Sepsis likely from aspiration pneumonia - We'll continue broad-spectrum antibiotic for now -We'll follow culture, serial chest x-rays //Septic shock requiring pressors - Continue IV antibiotics and IV fluid - Wean off pressors as tolerated, currently on Levophed only //JANESSA likely due to tumor necrosis from severe sepsis - Continue IV fluid, monitor renal function - Avoid nephrotoxins, nephrology consulted //History of cocaine abuse, UDS pending //Acute encephalopathy - Multifactorial, likely from drug abuse vs severe sepsis versus anoxic encephalopathy - CT head could not be obtained as patient is very unstable //Lactic acidosis - Likely from severe sepsis and along with decline in renal function - placed on bicarbonate drip // Elevated LFTs - Likely from severe hypotension causing shock liver - Continue to monitor // Coagulopathy, due to severe sepsis and abnormal liver function Disposition: Continue ICU monitoring, very poor prognosis. Brief history: 62-year-old admitted with drug abuse, unresponsive found in the bathroom, noted with severe lactic acidosis hypotensive on vasopressors, currently intubated for respiratory failure . Radiological test: Chest x-ray: Left lung atelectasis versus possible infiltrate Hospitalist Physical exam: GENERAL: Elderly WF lying on bed intubated and sedated HEENT: Normocephalic. Atraumatic. No conjunctival congestion or icterus. Patient has dry mucous membranes. NECK: Supple. Trachea midline. ET tube in place CHEST/LUNGS: Clear to auscultated bilaterally, breathing underwent. Positive for a few wheezes, crackles or rhonchi. HEART/CARDIOVASCULAR: Regular in rate and rhythm. S1 and S2 positive. ABDOMEN: Abdomen is soft, nontender. Patient has normal bowel sounds. SKIN: There is no rash. Warm and dry. NEURO: Sedated, does not follow any command MUSCULOSKELETAL: No joint effusion EXTRIMITY: No edema, cyanosis of the toes and fingers. PSYCH: Unable to assess Subjective Date of service: 01/19/18 Interval history: Patient seen and examined in the ICU Medical record and medication list reviewed Discussed with RN at the bedside Patient remained intubated and sedated, unable to follow any command Updated daughter by phone Objective - Constitutional Vitals: Vital Signs - 12hr 01/18/18 01/18/18 01/18/18 21:27 21:30 21:40 Temperature Pulse Rate 91 H 91 H Pulse Rate [ 89 Anterior Bilateral Throughout] Respiratory 20 30 H Rate Respiratory 30 H Rate [Anterior Bilateral Throughout] Blood Pressure 66/33 148/96 O2 Sat by Pulse 88 97 Oximetry 01/18/18 01/18/18 01/18/18 21:50 21:51 22:00 Temperature 99.8 F H Pulse Rate 96 H 90 95 H Pulse Rate [ Anterior Bilateral Throughout] Respiratory 30 H 30 H 30 H Rate Respiratory Rate [Anterior Bilateral Throughout] Blood Pressure 140/84 132/87 151/91 O2 Sat by Pulse 95 97 Oximetry 01/18/18 01/18/18 01/18/18 22:10 22:20 22:30 Temperature Pulse Rate 95 H 97 H 97 H Pulse Rate [ Anterior Bilateral Throughout] Respiratory 30 H 30 H 30 H Rate Respiratory Rate [Anterior Bilateral Throughout] Blood Pressure 156/95 134/86 134/79 O2 Sat by Pulse 96 94 95 Oximetry 01/18/18 01/18/18 01/18/18 22:40 22:50 23:00 Temperature Pulse Rate 100 H 100 H 100 H Pulse Rate [ Anterior Bilateral Throughout] Respiratory 30 H 30 H 30 H Rate Respiratory Rate [Anterior Bilateral Throughout] Blood Pressure 134/79 98/66 98/64 O2 Sat by Pulse 99 95 95 Oximetry 01/18/18 01/18/18 01/18/18 23:10 23:16 23:20 Temperature Pulse Rate 100 H 100 H 101 H Pulse Rate [ Anterior Bilateral Throughout] Respiratory 30 H 30 H Rate Respiratory Rate [Anterior Bilateral Throughout] Blood Pressure 98/64 90/62 90/62 O2 Sat by Pulse 91 89 90 Oximetry 01/18/18 01/18/18 01/18/18 23:30 23:40 23:50 Temperature Pulse Rate 101 H 98 H 100 H Pulse Rate [ Anterior Bilateral Throughout] Respiratory 30 H 30 H 30 H Rate Respiratory Rate [Anterior Bilateral Throughout] Blood Pressure 95/62 95/62 93/59 O2 Sat by Pulse 88 88 86 Oximetry 01/19/18 01/19/18 01/19/18 00:00 00:10 00:20 Temperature 99.7 F H Pulse Rate 101 H 100 H 99 H Pulse Rate [ Anterior Bilateral Throughout] Respiratory 30 H 30 H 30 H Rate Respiratory Rate [Anterior Bilateral Throughout] Blood Pressure 92/59 92/59 94/61 O2 Sat by Pulse 88 88 86 Oximetry 01/19/18 01/19/18 01/19/18 00:30 00:40 00:50 Temperature Pulse Rate 101 H 100 H 102 H Pulse Rate [ Anterior Bilateral Throughout] Respiratory 30 H 30 H 30 H Rate Respiratory Rate [Anterior Bilateral Throughout] Blood Pressure 93/61 94/61 93/64 O2 Sat by Pulse 88 87 93 Oximetry 01/19/18 01/19/18 01/19/18 01:00 01:10 01:20 Temperature Pulse Rate 101 H 101 H 101 H Pulse Rate [ Anterior Bilateral Throughout] Respiratory 30 H 30 H 30 H Rate Respiratory Rate [Anterior Bilateral Throughout] Blood Pressure 80/47 80/47 94/60 O2 Sat by Pulse 85 88 88 Oximetry 01/19/18 01/19/18 01/19/18 01:30 01:33 01:40 Temperature Pulse Rate 102 H 101 H Pulse Rate [ 100 H Anterior Bilateral Throughout] Respiratory 30 H 30 H Rate Respiratory 30 H Rate [Anterior Bilateral Throughout] Blood Pressure 96/64 96/64 O2 Sat by Pulse 91 94 Oximetry 01/19/18 01/19/18 01/19/18 01:44 01:50 03:00 Temperature Pulse Rate 99 H 100 H Pulse Rate [ 102 H Anterior Bilateral Throughout] Respiratory 30 H 30 H Rate Respiratory 30 H Rate [Anterior Bilateral Throughout] Blood Pressure 86/34 87/59 O2 Sat by Pulse 90 88 Oximetry 01/19/18 01/19/18 01/19/18 03:10 03:20 03:30 Temperature Pulse Rate 101 H 105 H 103 H Pulse Rate [ Anterior Bilateral Throughout] Respiratory 30 H 30 H 30 H Rate Respiratory Rate [Anterior Bilateral Throughout] Blood Pressure 87/59 89/57 81/46 O2 Sat by Pulse 86 87 Oximetry 01/19/18 01/19/18 01/19/18 03:40 03:50 03:54 Temperature Pulse Rate 105 H 99 H 97 H Pulse Rate [ Anterior Bilateral Throughout] Respiratory 30 H 30 H Rate Respiratory Rate [Anterior Bilateral Throughout] Blood Pressure 96/64 86/34 102/65 O2 Sat by Pulse 77 L 91 Oximetry 01/19/18 01/19/18 01/19/18 04:00 04:10 04:20 Temperature 99.0 F Pulse Rate 108 H 109 H 110 H Pulse Rate [ Anterior Bilateral Throughout] Respiratory 30 H 30 H 30 H Rate Respiratory Rate [Anterior Bilateral Throughout] Blood Pressure 106/67 106/67 106/70 O2 Sat by Pulse 93 92 Oximetry 01/19/18 01/19/18 01/19/18 04:30 04:40 04:50 Temperature Pulse Rate 110 H 110 H 110 H Pulse Rate [ Anterior Bilateral Throughout] Respiratory 30 H 29 H 30 H Rate Respiratory Rate [Anterior Bilateral Throughout] Blood Pressure 107/67 107/67 104/67 O2 Sat by Pulse 95 94 Oximetry 01/19/18 01/19/18 01/19/18 05:00 05:10 05:20 Temperature Pulse Rate 110 H 111 H 111 H Pulse Rate [ Anterior Bilateral Throughout] Respiratory 30 H 30 H 30 H Rate Respiratory Rate [Anterior Bilateral Throughout] Blood Pressure 108/71 108/71 110/70 O2 Sat by Pulse 98 Oximetry 01/19/18 01/19/18 01/19/18 05:30 05:40 05:50 Temperature Pulse Rate 111 H 112 H 112 H Pulse Rate [ Anterior Bilateral Throughout] Respiratory 30 H 30 H 30 H Rate Respiratory Rate [Anterior Bilateral Throughout] Blood Pressure 109/74 109/74 115/73 O2 Sat by Pulse 94 95 Oximetry 01/19/18 01/19/18 01/19/18 06:00 06:10 06:20 Temperature Pulse Rate 111 H 112 H 113 H Pulse Rate [ Anterior Bilateral Throughout] Respiratory 30 H 30 H 26 H Rate Respiratory Rate [Anterior Bilateral Throughout] Blood Pressure 111/71 111/71 109/71 O2 Sat by Pulse 99 94 96 Oximetry 01/19/18 01/19/18 01/19/18 06:30 06:40 06:50 Temperature Pulse Rate 115 H 115 H 115 H Pulse Rate [ Anterior Bilateral Throughout] Respiratory 25 H 26 H 26 H Rate Respiratory Rate [Anterior Bilateral Throughout] Blood Pressure 116/76 116/76 99/56 O2 Sat by Pulse 96 96 92 Oximetry 01/19/18 01/19/18 01/19/18 07:00 07:10 07:20 Temperature Pulse Rate 116 H 116 H 116 H Pulse Rate [ Anterior Bilateral Throughout] Respiratory 26 H 24 24 Rate Respiratory Rate [Anterior Bilateral Throughout] Blood Pressure 109/68 109/68 113/67 O2 Sat by Pulse 92 92 93 Oximetry 01/19/18 01/19/18 01/19/18 07:30 07:40 07:50 Temperature Pulse Rate 115 H 115 H 114 H Pulse Rate [ Anterior Bilateral Throughout] Respiratory 25 H 25 H 25 H Rate Respiratory Rate [Anterior Bilateral Throughout] Blood Pressure 106/70 106/70 105/61 O2 Sat by Pulse 93 94 93 Oximetry 01/19/18 01/19/18 01/19/18 07:52 07:57 08:00 Temperature 100.8 F H Pulse Rate 114 H 112 H Pulse Rate [ 115 H Anterior Bilateral Throughout] Respiratory 24 Rate Respiratory 25 H Rate [Anterior Bilateral Throughout] Blood Pressure 105/61 90/60 O2 Sat by Pulse 93 93 Oximetry 01/19/18 01/19/18 01/19/18 08:04 08:10 08:20 Temperature Pulse Rate 114 H 115 H Pulse Rate [ 111 H Anterior Bilateral Throughout] Respiratory 24 24 Rate Respiratory 24 Rate [Anterior Bilateral Throughout] Blood Pressure 90/60 112/68 O2 Sat by Pulse 93 92 Oximetry 01/19/18 01/19/18 01/19/18 08:28 08:30 08:40 Temperature Pulse Rate 113 H 114 H Pulse Rate [ Anterior Bilateral Throughout] Respiratory 24 24 Rate Respiratory Rate [Anterior Bilateral Throughout] Blood Pressure 106/66 106/66 O2 Sat by Pulse 93 93 93 Oximetry 01/19/18 01/19/18 01/19/18 08:50 09:00 09:10 Temperature Pulse Rate 114 H 113 H 115 H Pulse Rate [ Anterior Bilateral Throughout] Respiratory 24 25 H 24 Rate Respiratory Rate [Anterior Bilateral Throughout] Blood Pressure 105/61 106/63 106/63 O2 Sat by Pulse 93 92 Oximetry 01/19/18 01/19/18 01/19/18 09:20 09:30 09:40 Temperature Pulse Rate 115 H 115 H 115 H Pulse Rate [ Anterior Bilateral Throughout] Respiratory 30 H 25 H 24 Rate Respiratory Rate [Anterior Bilateral Throughout] Blood Pressure 109/67 116/69 116/69 O2 Sat by Pulse 93 95 90 Oximetry 01/19/18 01/19/18 09:50 10:00 Temperature Pulse Rate 115 H 115 H Pulse Rate [ Anterior Bilateral Throughout] Respiratory 24 Rate Respiratory Rate [Anterior Bilateral Throughout] Blood Pressure 106/68 O2 Sat by Pulse 93 Oximetry - Labs CBC & Chem 7: 01/19/18 06:50 01/19/18 06:50 Labs: Abnormal lab results 01/17/18 01/17/18 01/18/18 Range/Units 16:54 16:54 11:44 WBC (4.5-11.0) K/mm3 Plt Count (140-440) K/mm3 PT 18.5 H (12.2-14.9) Sec. INR 1.45 H (0.87-1.13) POC ABG pCO2 (35-45) POC ABG pO2 (80-105) Sodium (137-145) mmol/L Chloride (98-107) mmol/L Carbon Dioxide (22-30) mmol/L BUN (7-17) mg/dL Creatinine (0.7-1.2) mg/dL POC Glucose < 40 L (70-105) Lactic Acid 4.70 H* (0.7-2.0) mmol/L Calcium (8.4-10.2) mg/dL Total Bilirubin (0.1-1.2) mg/dL AST (5-40) units/L ALT (7-56) units/L Alkaline Phosphatase (35-129) units/L Total Protein (6.3-8.2) g/dL Albumin (3.9-5) g/dL 01/18/18 01/18/18 01/18/18 Range/Units 11:46 14:15 18:01 WBC (4.5-11.0) K/mm3 Plt Count (140-440) K/mm3 PT (12.2-14.9) Sec. INR (0.87-1.13) POC ABG pCO2 (35-45) POC ABG pO2 (80-105) Sodium (137-145) mmol/L Chloride (98-107) mmol/L Carbon Dioxide (22-30) mmol/L BUN (7-17) mg/dL Creatinine (0.7-1.2) mg/dL POC Glucose 116 H < 40 L (70-105) Lactic Acid 10.00 H* (0.7-2.0) mmol/L Calcium (8.4-10.2) mg/dL Total Bilirubin (0.1-1.2) mg/dL AST (5-40) units/L ALT (7-56) units/L Alkaline Phosphatase (35-129) units/L Total Protein (6.3-8.2) g/dL Albumin (3.9-5) g/dL 01/18/18 01/18/18 01/18/18 Range/Units 18:02 23:25 23:27 WBC (4.5-11.0) K/mm3 Plt Count (140-440) K/mm3 PT (12.2-14.9) Sec. INR (0.87-1.13) POC ABG pCO2 (35-45) POC ABG pO2 (80-105) Sodium (137-145) mmol/L Chloride (98-107) mmol/L Carbon Dioxide (22-30) mmol/L BUN (7-17) mg/dL Creatinine (0.7-1.2) mg/dL POC Glucose 136 H < 40 L < 40 L (70-105) Lactic Acid (0.7-2.0) mmol/L Calcium (8.4-10.2) mg/dL Total Bilirubin (0.1-1.2) mg/dL AST (5-40) units/L ALT (7-56) units/L Alkaline Phosphatase (35-129) units/L Total Protein (6.3-8.2) g/dL Albumin (3.9-5) g/dL 01/19/18 01/19/18 01/19/18 Range/Units 04:02 06:50 06:50 WBC 18.5 H (4.5-11.0) K/mm3 Plt Count 136 L (140-440) K/mm3 PT 21.3 H (12.2-14.9) Sec. INR 1.73 H (0.87-1.13) POC ABG pCO2 28.3 L (35-45) POC ABG pO2 57 L (80-105) Sodium (137-145) mmol/L Chloride (98-107) mmol/L Carbon Dioxide (22-30) mmol/L BUN (7-17) mg/dL Creatinine (0.7-1.2) mg/dL POC Glucose (70-105) Lactic Acid (0.7-2.0) mmol/L Calcium (8.4-10.2) mg/dL Total Bilirubin (0.1-1.2) mg/dL AST (5-40) units/L ALT (7-56) units/L Alkaline Phosphatase (35-129) units/L Total Protein (6.3-8.2) g/dL Albumin (3.9-5) g/dL 01/19/18 01/19/18 Range/Units 06:50 08:45 WBC (4.5-11.0) K/mm3 Plt Count (140-440) K/mm3 PT (12.2-14.9) Sec. INR (0.87-1.13) POC ABG pCO2 (35-45) POC ABG pO2 (80-105) Sodium 135 L (137-145) mmol/L Chloride 92.8 L (98-107) mmol/L Carbon Dioxide 19 L (22-30) mmol/L BUN 31 H (7-17) mg/dL Creatinine 2.6 H (0.7-1.2) mg/dL POC Glucose (70-105) Lactic Acid 7.90 H* (0.7-2.0) mmol/L Calcium 7.1 L (8.4-10.2) mg/dL Total Bilirubin 1.60 H (0.1-1.2) mg/dL AST 2526 H (5-40) units/L ALT 1187 H (7-56) units/L Alkaline Phosphatase 133 H (35-129) units/L Total Protein 4.8 L (6.3-8.2) g/dL Albumin 2.0 L (3.9-5) g/dL
[2018-01-19] MEDS: SODIUM CHLORIDE FLUSH SYRINGE 10 ML IV SCH (10:51)
[2018-01-19 11:40] LABS: Anisocytosis 1+; Band Neutrophils # (Manual) 0.7 K/mm3; Basophils % (Manual) 0 % (0.0-1.8); Eosinophils % (Manual) 0 % (0.0-4.3); Platelet Estimate Consistent w Auto; Total Cells Counted 100
--- NOTE | 2018-01-19 11:41 | Progress Note ---
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 History of cocaine abuse, Acute encephalopathy Lactic acidosis Fevers..cultures pending Thrombocytopenia -Continue with mechanical ventilatory support -VAP bundle -Daily evaluation for SATs and SBTs -For HD today per renal service -Bellamy cather for monitoring of accurate intake and output in this patient with newly diagnosed acute renal failure in the setting of severe sepsis with septic shock -Stress ulcer prophylaxis, VTE prophylaxis -Empiric antibiotics, plan to de-escalate once cultures results are available -Supplemental oxygen to wean for oxygen saturations>90% -Wean vasopressor support for MAP>65 -Lung protective strategies, ARDS-net protocol -Family updated Subjective Date of service: 01/19/18 Principal diagnosis: Acute hypoxic respiratory failure, severe sepsis with shock , encephalopathy Interval history: Patient seen today for: Seen and examined at bedside; 24-hour events reviewed; nursing and respiratory care staff consulted; no adverse overnight events reported to me; Persistently elevated fevers. S/pHD ..femoral HD Worsening renal indices, leukocytosis Objective - Exam Narrative Exam: GENERAL: well-developed and well-nourished elderly WF lying on bed intubated and sedated Not in any respiratory distress, no ventilator dys-synchrony HEENT: Normocephalic. Atraumatic. No conjunctival congestion or icterus. Patient has dry mucous membranes. NECK: Supple. Trachea midline. ET tube in place CHEST/LUNGS: Clear to auscultated bilaterally, breathing underwent. Positive for a few wheezes, crackles or rhonchi. HEART/CARDIOVASCULAR: Regular in rate and rhythm. S1 and S2 positive. ABDOMEN: Abdomen is soft, nontender. Patient has normal bowel sounds. SKIN: There is no rash. Warm and dry. NEURO: Sedated, does not follow any command MUSCULOSKELETAL: No joint effusion EXTRIMITY: No edema, no cyanosis or clubbing. PSYCH: Unable to assess Vital Signs - 12hr 01/18/18 01/18/18 01/18/18 22:50 23:00 23:10 Temperature Pulse Rate 100 H 100 H 100 H Pulse Rate [ Anterior Bilateral Throughout] Respiratory 30 H 30 H 30 H Rate Respiratory Rate [Anterior Bilateral Throughout] Blood Pressure 98/66 98/64 98/64 O2 Sat by Pulse 95 95 91 Oximetry 01/18/18 01/18/18 01/18/18 23:16 23:20 23:30 Temperature Pulse Rate 100 H 101 H 101 H Pulse Rate [ Anterior Bilateral Throughout] Respiratory 30 H 30 H Rate Respiratory Rate [Anterior Bilateral Throughout] Blood Pressure 90/62 90/62 95/62 O2 Sat by Pulse 89 90 88 Oximetry 01/18/18 01/18/18 01/19/18 23:40 23:50 00:00 Temperature 99.7 F H Pulse Rate 98 H 100 H 101 H Pulse Rate [ Anterior Bilateral Throughout] Respiratory 30 H 30 H 30 H Rate Respiratory Rate [Anterior Bilateral Throughout] Blood Pressure 95/62 93/59 92/59 O2 Sat by Pulse 88 86 88 Oximetry 01/19/18 01/19/18 01/19/18 00:10 00:20 00:30 Temperature Pulse Rate 100 H 99 H 101 H Pulse Rate [ Anterior Bilateral Throughout] Respiratory 30 H 30 H 30 H Rate Respiratory Rate [Anterior Bilateral Throughout] Blood Pressure 92/59 94/61 93/61 O2 Sat by Pulse 88 86 88 Oximetry 01/19/18 01/19/18 01/19/18 00:40 00:50 01:00 Temperature Pulse Rate 100 H 102 H 101 H Pulse Rate [ Anterior Bilateral Throughout] Respiratory 30 H 30 H 30 H Rate Respiratory Rate [Anterior Bilateral Throughout] Blood Pressure 94/61 93/64 80/47 O2 Sat by Pulse 87 93 85 Oximetry 01/19/18 01/19/18 01/19/18 01:10 01:20 01:30 Temperature Pulse Rate 101 H 101 H 102 H Pulse Rate [ Anterior Bilateral Throughout] Respiratory 30 H 30 H 30 H Rate Respiratory Rate [Anterior Bilateral Throughout] Blood Pressure 80/47 94/60 96/64 O2 Sat by Pulse 88 88 91 Oximetry 01/19/18 01/19/18 01/19/18 01:33 01:40 01:44 Temperature Pulse Rate 101 H Pulse Rate [ 100 H 102 H Anterior Bilateral Throughout] Respiratory 30 H Rate Respiratory 30 H 30 H Rate [Anterior Bilateral Throughout] Blood Pressure 96/64 O2 Sat by Pulse 94 Oximetry 01/19/18 01/19/18 01/19/18 01:50 03:00 03:10 Temperature Pulse Rate 99 H 100 H 101 H Pulse Rate [ Anterior Bilateral Throughout] Respiratory 30 H 30 H 30 H Rate Respiratory Rate [Anterior Bilateral Throughout] Blood Pressure 86/34 87/59 87/59 O2 Sat by Pulse 90 88 86 Oximetry 01/19/18 01/19/18 01/19/18 03:20 03:30 03:40 Temperature Pulse Rate 105 H 103 H 105 H Pulse Rate [ Anterior Bilateral Throughout] Respiratory 30 H 30 H 30 H Rate Respiratory Rate [Anterior Bilateral Throughout] Blood Pressure 89/57 81/46 96/64 O2 Sat by Pulse 87 Oximetry 01/19/18 01/19/18 01/19/18 03:50 03:54 04:00 Temperature 99.0 F Pulse Rate 99 H 97 H 108 H Pulse Rate [ Anterior Bilateral Throughout] Respiratory 30 H 30 H Rate Respiratory Rate [Anterior Bilateral Throughout] Blood Pressure 86/34 102/65 106/67 O2 Sat by Pulse 77 L 91 Oximetry 01/19/18 01/19/18 01/19/18 04:10 04:20 04:30 Temperature Pulse Rate 109 H 110 H 110 H Pulse Rate [ Anterior Bilateral Throughout] Respiratory 30 H 30 H 30 H Rate Respiratory Rate [Anterior Bilateral Throughout] Blood Pressure 106/67 106/70 107/67 O2 Sat by Pulse 93 92 95 Oximetry 01/19/18 01/19/18 01/19/18 04:40 04:50 05:00 Temperature Pulse Rate 110 H 110 H 110 H Pulse Rate [ Anterior Bilateral Throughout] Respiratory 29 H 30 H 30 H Rate Respiratory Rate [Anterior Bilateral Throughout] Blood Pressure 107/67 104/67 108/71 O2 Sat by Pulse 94 Oximetry 01/19/18 01/19/18 01/19/18 05:10 05:20 05:30 Temperature Pulse Rate 111 H 111 H 111 H Pulse Rate [ Anterior Bilateral Throughout] Respiratory 30 H 30 H 30 H Rate Respiratory Rate [Anterior Bilateral Throughout] Blood Pressure 108/71 110/70 109/74 O2 Sat by Pulse 98 Oximetry 01/19/18 01/19/18 01/19/18 05:40 05:50 06:00 Temperature Pulse Rate 112 H 112 H 111 H Pulse Rate [ Anterior Bilateral Throughout] Respiratory 30 H 30 H 30 H Rate Respiratory Rate [Anterior Bilateral Throughout] Blood Pressure 109/74 115/73 111/71 O2 Sat by Pulse 94 95 99 Oximetry 01/19/18 01/19/18 01/19/18 06:10 06:20 06:30 Temperature Pulse Rate 112 H 113 H 115 H Pulse Rate [ Anterior Bilateral Throughout] Respiratory 30 H 26 H 25 H Rate Respiratory Rate [Anterior Bilateral Throughout] Blood Pressure 111/71 109/71 116/76 O2 Sat by Pulse 94 96 96 Oximetry 01/19/18 01/19/18 01/19/18 06:40 06:50 07:00 Temperature Pulse Rate 115 H 115 H 116 H Pulse Rate [ Anterior Bilateral Throughout] Respiratory 26 H 26 H 26 H Rate Respiratory Rate [Anterior Bilateral Throughout] Blood Pressure 116/76 99/56 109/68 O2 Sat by Pulse 96 92 92 Oximetry 01/19/18 01/19/18 01/19/18 07:10 07:20 07:30 Temperature Pulse Rate 116 H 116 H 115 H Pulse Rate [ Anterior Bilateral Throughout] Respiratory 24 24 25 H Rate Respiratory Rate [Anterior Bilateral Throughout] Blood Pressure 109/68 113/67 106/70 O2 Sat by Pulse 92 93 93 Oximetry 01/19/18 01/19/18 01/19/18 07:40 07:50 07:52 Temperature Pulse Rate 115 H 114 H 114 H Pulse Rate [ Anterior Bilateral Throughout] Respiratory 25 H 25 H Rate Respiratory Rate [Anterior Bilateral Throughout] Blood Pressure 106/70 105/61 105/61 O2 Sat by Pulse 94 93 93 Oximetry 01/19/18 01/19/18 01/19/18 07:57 08:00 08:04 Temperature 100.8 F H Pulse Rate 112 H Pulse Rate [ 115 H 111 H Anterior Bilateral Throughout] Respiratory 24 Rate Respiratory 25 H 24 Rate [Anterior Bilateral Throughout] Blood Pressure 90/60 O2 Sat by Pulse 93 Oximetry 01/19/18 01/19/18 01/19/18 08:10 08:20 08:28 Temperature Pulse Rate 114 H 115 H Pulse Rate [ Anterior Bilateral Throughout] Respiratory 24 24 Rate Respiratory Rate [Anterior Bilateral Throughout] Blood Pressure 90/60 112/68 O2 Sat by Pulse 93 92 93 Oximetry 01/19/18 01/19/18 01/19/18 08:30 08:40 08:50 Temperature Pulse Rate 113 H 114 H 114 H Pulse Rate [ Anterior Bilateral Throughout] Respiratory 24 24 24 Rate Respiratory Rate [Anterior Bilateral Throughout] Blood Pressure 106/66 106/66 105/61 O2 Sat by Pulse 93 93 93 Oximetry 01/19/18 01/19/18 01/19/18 09:00 09:10 09:20 Temperature Pulse Rate 113 H 115 H 115 H Pulse Rate [ Anterior Bilateral Throughout] Respiratory 25 H 24 30 H Rate Respiratory Rate [Anterior Bilateral Throughout] Blood Pressure 106/63 106/63 109/67 O2 Sat by Pulse 92 93 Oximetry 01/19/18 01/19/18 01/19/18 09:30 09:40 09:50 Temperature Pulse Rate 115 H 115 H 115 H Pulse Rate [ Anterior Bilateral Throughout] Respiratory 25 H 24 24 Rate Respiratory Rate [Anterior Bilateral Throughout] Blood Pressure 116/69 116/69 106/68 O2 Sat by Pulse 95 90 93 Oximetry 01/19/18 01/19/18 01/19/18 10:00 10:10 10:20 Temperature Pulse Rate 113 H 112 H 111 H Pulse Rate [ Anterior Bilateral Throughout] Respiratory 24 24 24 Rate Respiratory Rate [Anterior Bilateral Throughout] Blood Pressure 109/64 109/64 107/62 O2 Sat by Pulse 94 93 Oximetry 01/19/18 01/19/18 01/19/18 10:30 10:40 10:44 Temperature Pulse Rate 112 H 113 H 114 H Pulse Rate [ Anterior Bilateral Throughout] Respiratory 24 20 Rate Respiratory Rate [Anterior Bilateral Throughout] Blood Pressure 112/65 112/65 112/65 O2 Sat by Pulse 93 91 91 Oximetry 01/19/18 01/19/18 01/19/18 10:50 11:05 11:10 Temperature Pulse Rate 110 H 113 H 112 H Pulse Rate [ Anterior Bilateral Throughout] Respiratory 24 24 24 Rate Respiratory Rate [Anterior Bilateral Throughout] Blood Pressure 106/71 106/71 109/66 O2 Sat by Pulse 93 92 90 Oximetry 01/19/18 11:12 Temperature Pulse Rate 112 H Pulse Rate [ Anterior Bilateral Throughout] Respiratory Rate Respiratory Rate [Anterior Bilateral Throughout] Blood Pressure 109/66 O2 Sat by Pulse 90 Oximetry CBC and BMP: 01/21/18 05:00 01/21/18 05:00 ABG, PT/INR, D-dimer: ABG POC ABG pH 7.406 (7.35-7.45) 01/19/18 04:02 POC ABG pCO2 28.3 (35-45) L 01/19/18 04:02 POC ABG pO2 57 (80-105) L 01/19/18 04:02 POC ABG HCO3 17.8 01/19/18 04:02 POC ABG Total CO2 19 01/19/18 04:02 POC ABG O2 Sat 90 01/19/18 04:02 PT/INR, D-dimer PT 21.3 Sec. (12.2-14.9) H 01/19/18 06:50 INR 1.73 (0.87-1.13) H 01/19/18 06:50 Abnormal lab findings: Abnormal Labs 01/17/18 01/17/18 01/17/18 15:25 16:15 16:48 WBC Plt Count Seg Neuts % (Manual) Lymphocytes % (Manual) Monocytes % (Manual) Lymphocytes # (Manual) Monocytes # (Manual) PT INR POC ABG pH 7.099 L POC ABG pCO2 58.9 H POC ABG pO2 149 H VBG pH Sodium Chloride Carbon Dioxide BUN Creatinine Glucose POC Glucose < 40 L 121 H Hemoglobin A1c Lactic Acid Calcium Total Bilirubin AST ALT Alkaline Phosphatase Total Protein Albumin 01/17/18 01/17/18 01/17/18 16:54 16:54 16:54 WBC Plt Count Seg Neuts % (Manual) 72.0 H Lymphocytes % (Manual) 3.0 L Monocytes % (Manual) Lymphocytes # (Manual) 0.2 L Monocytes # (Manual) PT 18.5 H INR 1.45 H POC ABG pH POC ABG pCO2 POC ABG pO2 VBG pH Sodium 136 L Chloride 97.8 L Carbon Dioxide 16 L BUN 43 H Creatinine 3.3 H Glucose 121 H POC Glucose Hemoglobin A1c Lactic Acid Calcium 6.7 L Total Bilirubin AST ALT Alkaline Phosphatase Total Protein 4.4 L Albumin 2.3 L 01/17/18 01/17/18 01/17/18 16:54 16:54 17:11 WBC Plt Count Seg Neuts % (Manual) Lymphocytes % (Manual) Monocytes % (Manual) Lymphocytes # (Manual) Monocytes # (Manual) PT INR POC ABG pH POC ABG pCO2 POC ABG pO2 VBG pH 7.273 L Sodium Chloride Carbon Dioxide BUN Creatinine Glucose POC Glucose Hemoglobin A1c Lactic Acid 4.70 H* 4.30 H* Calcium Total Bilirubin AST ALT Alkaline Phosphatase Total Protein Albumin 01/17/18 01/17/18 01/17/18 18:02 18:15 19:21 WBC Plt Count Seg Neuts % (Manual) Lymphocytes % (Manual) Monocytes % (Manual) Lymphocytes # (Manual) Monocytes # (Manual) PT INR POC ABG pH 7.177 L POC ABG pCO2 POC ABG pO2 VBG pH Sodium Chloride Carbon Dioxide BUN Creatinine Glucose POC Glucose < 40 L Hemoglobin A1c Lactic Acid 3.00 H* Calcium Total Bilirubin AST ALT Alkaline Phosphatase Total Protein Albumin 01/17/18 01/17/18 01/17/18 22:36 22:36 23:16 WBC Plt Count Seg Neuts % (Manual) Lymphocytes % (Manual) Monocytes % (Manual) Lymphocytes # (Manual) Monocytes # (Manual) PT INR POC ABG pH 7.112 L POC ABG pCO2 50.1 H POC ABG pO2 50 L VBG pH Sodium Chloride Carbon Dioxide BUN Creatinine Glucose POC Glucose Hemoglobin A1c 9.0 H Lactic Acid 5.50 H* Calcium Total Bilirubin AST ALT Alkaline Phosphatase Total Protein Albumin 01/18/18 01/18/18 01/18/18 01:26 03:21 03:21 WBC Plt Count Seg Neuts % (Manual) 27.0 L Lymphocytes % (Manual) 3.0 L Monocytes % (Manual) 14.0 H Lymphocytes # (Manual) 0.3 L Monocytes # (Manual) 1.4 H PT INR POC ABG pH POC ABG pCO2 POC ABG pO2 VBG pH Sodium Chloride Carbon Dioxide BUN Creatinine Glucose POC Glucose 107 H Hemoglobin A1c Lactic Acid 8.00 H* Calcium Total Bilirubin AST ALT Alkaline Phosphatase Total Protein Albumin 01/18/18 01/18/18 01/18/18 03:21 04:40 05:07 WBC Plt Count Seg Neuts % (Manual) Lymphocytes % (Manual) Monocytes % (Manual) Lymphocytes # (Manual) Monocytes # (Manual) PT INR POC ABG pH 7.093 L POC ABG pCO2 31.5 L POC ABG pO2 77 L VBG pH Sodium Chloride 96.9 L Carbon Dioxide 14 L BUN 47 H Creatinine 3.4 H Glucose POC Glucose Hemoglobin A1c Lactic Acid 11.10 H* Calcium 6.4 L Total Bilirubin AST 47 H ALT Alkaline Phosphatase Total Protein 4.3 L Albumin 2.4 L 01/18/18 01/18/18 01/18/18 06:29 07:06 11:44 WBC Plt Count Seg Neuts % (Manual) Lymphocytes % (Manual) Monocytes % (Manual) Lymphocytes # (Manual) Monocytes # (Manual) PT INR POC ABG pH POC ABG pCO2 POC ABG pO2 VBG pH Sodium Chloride Carbon Dioxide BUN Creatinine Glucose POC Glucose 47 L 149 H < 40 L Hemoglobin A1c Lactic Acid Calcium Total Bilirubin AST ALT Alkaline Phosphatase Total Protein Albumin 01/18/18 01/18/18 01/18/18 11:46 14:15 18:01 WBC Plt Count Seg Neuts % (Manual) Lymphocytes % (Manual) Monocytes % (Manual) Lymphocytes # (Manual) Monocytes # (Manual) PT INR POC ABG pH POC ABG pCO2 POC ABG pO2 VBG pH Sodium Chloride Carbon Dioxide BUN Creatinine Glucose POC Glucose 116 H < 40 L Hemoglobin A1c Lactic Acid 10.00 H* Calcium Total Bilirubin AST ALT Alkaline Phosphatase Total Protein Albumin 01/18/18 01/18/18 01/18/18 18:02 23:25 23:27 WBC Plt Count Seg Neuts % (Manual) Lymphocytes % (Manual) Monocytes % (Manual) Lymphocytes # (Manual) Monocytes # (Manual) PT INR POC ABG pH POC ABG pCO2 POC ABG pO2 VBG pH Sodium Chloride Carbon Dioxide BUN Creatinine Glucose POC Glucose 136 H < 40 L < 40 L Hemoglobin A1c Lactic Acid Calcium Total Bilirubin AST ALT Alkaline Phosphatase Total Protein Albumin 01/19/18 01/19/18 01/19/18 04:02 06:50 06:50 WBC 18.5 H Plt Count 136 L Seg Neuts % (Manual) Lymphocytes % (Manual) Monocytes % (Manual) Lymphocytes # (Manual) Monocytes # (Manual) PT 21.3 H INR 1.73 H POC ABG pH POC ABG pCO2 28.3 L POC ABG pO2 57 L VBG pH Sodium Chloride Carbon Dioxide BUN Creatinine Glucose POC Glucose Hemoglobin A1c Lactic Acid Calcium Total Bilirubin AST ALT Alkaline Phosphatase Total Protein Albumin 01/19/18 01/19/18 01/19/18 06:50 08:45 11:17 WBC Plt Count Seg Neuts % (Manual) Lymphocytes % (Manual) Monocytes % (Manual) Lymphocytes # (Manual) Monocytes # (Manual) PT INR POC ABG pH POC ABG pCO2 POC ABG pO2 VBG pH Sodium 135 L Chloride 92.8 L Carbon Dioxide 19 L BUN 31 H Creatinine 2.6 H Glucose POC Glucose 110 H Hemoglobin A1c Lactic Acid 7.90 H* Calcium 7.1 L Total Bilirubin 1.60 H AST 2526 H ALT 1187 H Alkaline Phosphatase 133 H Total Protein 4.8 L Albumin 2.0 L Allied health notes reviewed: RT
[2018-01-19] MEDS: LEVOPHED 8 MG in NACL 0.9% 250ML 242 ML IV SCH (13:31)
[2018-01-19] MEDS: TYLENOL FEEDTUBE PRN (17:36)
[2018-01-19] MEDS: ARTIFICIAL TEARS OPHTH OINT OU PRN (17:41)
[2018-01-20] MEDS: ZOSYN/NS 2.25 GM/50ML 2.25 GM/50 ML BAG IV SCH ×4 (00:09→23:42)
[2018-01-20] MEDS: TYLENOL FEEDTUBE PRN ×3 (00:09→11:50)
[2018-01-20] MEDS: DUONEB *Not for PRN Use IH SCH ×4 (01:40→20:20)
--- NOTE | 2018-01-20 04:43 | XRay Report ---
FINAL REPORT PROCEDURE: XR CHEST 1V AP TECHNIQUE: Chest radiograph anteroposterior view. CPT 57470 HISTORY: follow up respiratory failure COMPARISON: 01/18/2018 FINDINGS: Heart: Normal. Mediastinum/Vessels: Normal. Lungs/Pleural space: There are bilateral pleural effusions. There is no pneumothorax. The lungs are well-expanded.. Bony thorax: No acute osseous abnormality. Life support devices: Endotracheal tube is in the mid trachea. NG tube is in the stomach. Pacemaker leads are in proper position. There is right-sided central venous catheter. The tip is in the superior vena cava.. IMPRESSION: Heart size is normal. There are bilateral pleural effusions. There is no pneumothorax. The lungs are well-expanded.. Endotracheal tube is in the mid trachea. NG tube is in the stomach. Pacemaker leads are in proper position. There is right-sided central venous catheter. The tip is in the superior vena cava..
--- NOTE | 2018-01-20 05:09 | Cat Scan Report ---
FINAL REPORT PROCEDURE: CT HEAD/BRAIN WO CON TECHNIQUE: Computerized tomography of the head was performed without contrast material. HISTORY: AMS COMPARISON: No prior studies are available for comparison. FINDINGS: Skull and scalp: Normal. Paranasal sinuses: Normal. Ventricles and subarachnoid spaces: Normal. Cerebrum: No evidence of hemorrhage, acute infarction or mass . Cerebellum and brainstem: No evidence of hemorrhage, acute infarction or mass. Vasculature: Normal. Comments: None. IMPRESSION: Normal Examination
[2018-01-20 06:02] LABS: Hematocrit 35.1 % (30.3-42.9); Hemoglobin 11.4 gm/dl (10.1-14.3); Mean Corpuscular HGB Conc 32 % (30-34); Mean Corpuscular Hemoglobin 27 pg (28-32); Mean Corpuscular Volume 85 fl (79-97); Red Blood Count 4.15 M/mm3 (3.65-5.03); Red Cell Distribution Width 14.5 % (13.2-15.2)
[2018-01-20 06:03] LABS: Platelet Count 84 K/mm3 (140-440)
[2018-01-20 06:26] LABS: Albumin 1.7 g/dL (3.9-5); Calcium 7.1 mg/dL (8.4-10.2)
[2018-01-20 06:37] LABS: Band Neutrophils # (Manual) 0.6 K/mm3; Basophils % (Manual) 0 % (0.0-1.8); Eosinophils % (Manual) 0 % (0.0-4.3); Myelocytes # (Manual) 0.6 K/mm3; Total Cells Counted 100
[2018-01-20 06:38] LABS: Platelet Estimate Appears Decreased
[2018-01-20 07:28] LABS: INR 1.35 (0.87-1.13)
[2018-01-20] MEDS: HEPARIN SUB-Q SCH (09:45)
[2018-01-20] MEDS: PEPCID IV SCH (09:45)
[2018-01-20] MEDS: HumaLOG SUB-Q SCH ×2 (09:46→11:52)
[2018-01-20] MEDS: SODIUM CHLORIDE FLUSH SYRINGE 10 ML IV SCH (10:27)
--- NOTE | 2018-01-20 10:31 | Progress Note ---
Subjective Principal diagnosis: Acute hypoxic respiratory failure, severe sepsis with shock , encephalopathy Interval history: Patient was seen today for follow-up on multiple renal related issues Patient remains on ventilator Hemodynamically a little more stable today Vitals labs intake output medications were reviewed Social history: Reviewed Allergies: Reviewed Family history: Reviewed Physical examination HEENT: Oral mucosa moist no pallor or icterus Neck: Supple no JVD Chest: Clear to auscultation anteriorly CVS: Regular rate and rhythm S1 and S2 heard Abdomen: Soft nontender no suprapubic masses no organomegaly appreciable Extremity: Dry skin less than 1+ peripheral edema Musculoskeletal: No joint effusion noted in knees and ankle Neurological: encephalopathicDermatology: No petechial rashes Psychiatry: No evidence of any agitation and aggression noted Assessment and plan Acute kidney injury: Patient will require hemodialysis today as tolerated I have discussed the renal care plan with patient's daughter at length History of cocaine abuse, methamphetamine abuse history; discussed with daughter during this admission Encephalopathy: Multifactorial resulting from drug abuse, respiratory failure needs to be followed by primary team Lactic acidosis: To monitor and follow Respiratory failure currently intubated Hemodynamically relatively more stable now, low-grade tachycardia under 115 Current labs: Hemoglobin normal 11.4 white cell count 19.7 thousand rising Progressive decline in platelet count will check for HIT, may need hematology evaluation Patient needs follow-up on the lactic acid level Hypocalcemia: Currently better Rising liver enzyme likely shock liver please consider ultrasonogram of the right upper quadrant Prognosis: Very poor Mortality risk: Very high Continue with supportive care Will order for hemodialysis today, more than 35 minutes were spent in direct patient care in the critical care setting Please discuss with family about goals of care and consider neurology evaluation We'll continue to follow and make recommendation from renal standpoint Objective - Vital Signs Vital signs: Vital Signs - 12hr 01/19/18 01/19/18 01/19/18 22:41 22:51 23:01 Temperature Pulse Rate 115 H 117 H 116 H Pulse Rate [ Anterior Bilateral Throughout] Pulse Rate [ From Monitor] Pulse Rate [ Right Dorsalis Pedis] Respiratory 34 H 33 H 30 H Rate Respiratory Rate [Anterior Bilateral Throughout] Blood Pressure 136/87 144/91 152/92 O2 Sat by Pulse 88 95 94 Oximetry 01/19/18 01/19/18 01/19/18 23:11 23:21 23:30 Temperature Pulse Rate 118 H 117 H 117 H Pulse Rate [ Anterior Bilateral Throughout] Pulse Rate [ From Monitor] Pulse Rate [ Right Dorsalis Pedis] Respiratory 32 H 34 H 35 H Rate Respiratory Rate [Anterior Bilateral Throughout] Blood Pressure 144/91 155/96 131/101 O2 Sat by Pulse 95 Oximetry 01/19/18 01/19/18 01/19/18 23:39 23:41 23:51 Temperature Pulse Rate 118 H 118 H 117 H Pulse Rate [ Anterior Bilateral Throughout] Pulse Rate [ From Monitor] Pulse Rate [ Right Dorsalis Pedis] Respiratory 32 H 29 H Rate Respiratory Rate [Anterior Bilateral Throughout] Blood Pressure 131/101 155/96 146/98 O2 Sat by Pulse 94 95 Oximetry 01/19/18 01/20/18 01/20/18 23:53 00:00 00:11 Temperature 102.7 F H Pulse Rate 117 H 117 H Pulse Rate [ Anterior Bilateral Throughout] Pulse Rate [ From Monitor] Pulse Rate [ 109 H Right Dorsalis Pedis] Respiratory 35 H 27 H Rate Respiratory Rate [Anterior Bilateral Throughout] Blood Pressure 136/100 131/101 O2 Sat by Pulse 95 96 Oximetry 01/20/18 01/20/18 01/20/18 00:21 00:30 00:41 Temperature Pulse Rate 118 H 114 H 118 H Pulse Rate [ Anterior Bilateral Throughout] Pulse Rate [ From Monitor] Pulse Rate [ Right Dorsalis Pedis] Respiratory 31 H 29 H 32 H Rate Respiratory Rate [Anterior Bilateral Throughout] Blood Pressure 154/91 139/89 136/100 O2 Sat by Pulse 95 94 95 Oximetry 01/20/18 01/20/18 01/20/18 00:51 01:00 01:11 Temperature Pulse Rate 118 H 119 H 118 H Pulse Rate [ Anterior Bilateral Throughout] Pulse Rate [ From Monitor] Pulse Rate [ Right Dorsalis Pedis] Respiratory 27 H 34 H 33 H Rate Respiratory Rate [Anterior Bilateral Throughout] Blood Pressure 163/90 159/105 139/89 O2 Sat by Pulse 95 95 95 Oximetry 01/20/18 01/20/18 01/20/18 01:21 01:30 01:36 Temperature Pulse Rate 118 H 119 H Pulse Rate [ 118 H Anterior Bilateral Throughout] Pulse Rate [ From Monitor] Pulse Rate [ Right Dorsalis Pedis] Respiratory 34 H 35 H Rate Respiratory 23 Rate [Anterior Bilateral Throughout] Blood Pressure 154/103 164/108 O2 Sat by Pulse 95 94 Oximetry 01/20/18 01/20/1801/20/18 01:41 01:46 01:51 Temperature Pulse Rate 116 H 117 H Pulse Rate [ 116 H Anterior Bilateral Throughout] Pulse Rate [ From Monitor] Pulse Rate [ Right Dorsalis Pedis] Respiratory 24 29 H Rate Respiratory 24 Rate [Anterior Bilateral Throughout] Blood Pressure 164/108 121/78 O2 Sat by Pulse 94 96 Oximetry 01/20/18 01/20/18 01/20/18 02:00 02:11 02:21 Temperature Pulse Rate 117 H 117 H 110 H Pulse Rate [ Anterior Bilateral Throughout] Pulse Rate [ From Monitor] Pulse Rate [ Right Dorsalis Pedis] Respiratory 31 H 34 H 20 Rate Respiratory Rate [Anterior Bilateral Throughout] Blood Pressure 143/97 143/97 128/85 O2 Sat by Pulse 95 95 Oximetry 01/20/18 01/20/18 01/20/18 02:30 02:41 02:51 Temperature Pulse Rate 111 H 115 H 115 H Pulse Rate [ Anterior Bilateral Throughout] Pulse Rate [ From Monitor] Pulse Rate [ Right Dorsalis Pedis] Respiratory 29 H 28 H 27 H Rate Respiratory Rate [Anterior Bilateral Throughout] Blood Pressure 123/73 143/97 128/80 O2 Sat by Pulse 98 96 97 Oximetry 01/20/18 01/20/18 01/20/18 03:00 03:11 03:21 Temperature Pulse Rate 114 H 115 H 115 H Pulse Rate [ Anterior Bilateral Throughout] Pulse Rate [ From Monitor] Pulse Rate [ Right Dorsalis Pedis] Respiratory 29 H 36 H 29 H Rate Respiratory Rate [Anterior Bilateral Throughout] Blood Pressure 128/81 123/73 135/85 O2 Sat by Pulse 96 96 98 Oximetry 01/20/18 01/20/18 01/20/18 03:30 03:41 04:00 Temperature 102.8 F H Pulse Rate 115 H 113 H Pulse Rate [ Anterior Bilateral Throughout] Pulse Rate [ From Monitor] Pulse Rate [ 109 H Right Dorsalis Pedis] Respiratory 33 H 29 H Rate Respiratory Rate [Anterior Bilateral Throughout] Blood Pressure 141/91 141/91 O2 Sat by Pulse 97 98 97 Oximetry 01/20/18 01/20/18 01/20/18 04:16 04:21 04:30 Temperature Pulse Rate 115 H 112 H 111 H Pulse Rate [ Anterior Bilateral Throughout] Pulse Rate [ From Monitor] Pulse Rate [ Right Dorsalis Pedis] Respiratory 31 H 28 H 27 H Rate Respiratory Rate [Anterior Bilateral Throughout] Blood Pressure 116/83 116/83 115/78 O2 Sat by Pulse 90 93 96 Oximetry 01/20/18 01/20/18 01/20/18 04:41 04:51 05:00 Temperature Pulse Rate 111 H 112 H 111 H Pulse Rate [ Anterior Bilateral Throughout] Pulse Rate [ From Monitor] Pulse Rate [ Right Dorsalis Pedis] Respiratory 30 H 27 H 29 H Rate Respiratory Rate [Anterior Bilateral Throughout] Blood Pressure 115/78 120/76 123/77 O2 Sat by Pulse 97 98 98 Oximetry 01/20/18 01/20/18 01/20/18 05:11 05:21 05:30 Temperature Pulse Rate 110 H 111 H 111 H Pulse Rate [ Anterior Bilateral Throughout] Pulse Rate [ From Monitor] Pulse Rate [ Right Dorsalis Pedis] Respiratory 28 H 27 H 27 H Rate Respiratory Rate [Anterior Bilateral Throughout] Blood Pressure 123/77 117/78 119/80 O2 Sat by Pulse 97 98 98 Oximetry 01/20/18 01/20/18 01/20/18 05:41 05:51 06:00 Temperature Pulse Rate 111 H 111 H 109 H Pulse Rate [ Anterior Bilateral Throughout] Pulse Rate [ From Monitor] Pulse Rate [ Right Dorsalis Pedis] Respiratory 28 H 29 H 27 H Rate Respiratory Rate [Anterior Bilateral Throughout] Blood Pressure 119/80 119/76 110/77 O2 Sat by Pulse 98 98 99 Oximetry 01/20/18 01/20/18 01/20/18 06:11 06:21 06:30 Temperature Pulse Rate 110 H 110 H 111 H Pulse Rate [ Anterior Bilateral Throughout] Pulse Rate [ From Monitor] Pulse Rate [ Right Dorsalis Pedis] Respiratory 27 H 28 H 28 H Rate Respiratory Rate [Anterior Bilateral Throughout] Blood Pressure 110/77 124/80 127/81 O2 Sat by Pulse 98 98 98 Oximetry 01/20/18 01/20/18 01/20/18 06:41 06:51 07:00 Temperature Pulse Rate 111 H 111 H 112 H Pulse Rate [ Anterior Bilateral Throughout] Pulse Rate [ From Monitor] Pulse Rate [ Right Dorsalis Pedis] Respiratory 27 H 28 H 28 H Rate Respiratory Rate [Anterior Bilateral Throughout] Blood Pressure 127/81 125/81 137/82 O2 Sat by Pulse 98 99 99 Oximetry 01/20/18 01/20/18 01/20/18 07:11 07:21 07:30 Temperature Pulse Rate 112 H 111 H 113 H Pulse Rate [ Anterior Bilateral Throughout] Pulse Rate [ From Monitor] Pulse Rate [ Right Dorsalis Pedis] Respiratory 28 H 28 H 31 H Rate Respiratory Rate [Anterior Bilateral Throughout] Blood Pressure 137/82 133/86 143/92 O2 Sat by Pulse 98 97 97 Oximetry 01/20/18 01/20/18 01/20/18 07:41 07:51 08:00 Temperature Pulse Rate 113 H 113 H 111 H Pulse Rate [ Anterior Bilateral Throughout] Pulse Rate [ 112 H From Monitor] Pulse Rate [ Right Dorsalis Pedis] Respiratory 31 H 29 H 27 H Rate Respiratory Rate [Anterior Bilateral Throughout] Blood Pressure 143/92 148/89 127/83 O2 Sat by Pulse 97 97 97 Oximetry 01/20/18 01/20/18 01/20/18 08:11 08:21 10:07 Temperature Pulse Rate 112 H 110 H 113 H Pulse Rate [ Anterior Bilateral Throughout] Pulse Rate [ From Monitor] Pulse Rate [ Right Dorsalis Pedis] Respiratory 27 H 27 H Rate Respiratory Rate [Anterior Bilateral Throughout] Blood Pressure 127/83 128/79 152/99 O2 Sat by Pulse 97 98 95 Oximetry 01/20/18 01/20/18 10:13 10:23 Temperature Pulse Rate Pulse Rate [ 111 H 105 H Anterior Bilateral Throughout] Pulse Rate [ From Monitor] Pulse Rate [ Right Dorsalis Pedis] Respiratory Rate Respiratory 26 H 24 Rate [Anterior Bilateral Throughout] Blood Pressure O2 Sat by Pulse Oximetry - Lab 01/20/18 05:18 01/20/18 05:18 Most recent lab results Calcium 7.1 mg/dL (8.4-10.2) L 01/20/18 05:18
--- NOTE | 2018-01-20 11:29 | Progress Note ---
Assessment and Plan //Acute respiratory failure - Likely from drug abuse and aspiration -on vent support //Sepsis likely from aspiration pneumonia - We'll continue broad-spectrum antibiotic for now -negative blood culture, sputum cx pending //Shock required pressors - likley from sepsis vs cardiogenic - Continue IV antibiotics - off pressors today. 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 - monitor renal function - Avoid nephrotoxins, nephrology consulted - started on HD since yesterday //History of cocaine abuse, UDS pending //Acute encephalopathy - Multifactorial, likely from drug abuse vs severe sepsis versus anoxic encephalopathy - CT head no acute finding - pt is off sedation since yesterday //Lactic acidosis - Likely from severe sepsis and along with decline in renal function - placed on bicarbonate drip inittially, now on HD // Elevated LFTs - Likely from severe hypotension causing shock liver - Continue to monitor // Coagulopathy, due to severe sepsis and abnormal liver function // FEN - start on TF, D5Ns @ 42ml/h Disposition: Continue ICU monitoring, very poor prognosis. Brief history: 62-year-old admitted with drug abuse, unresponsive found in the bathroom, noted with severe lactic acidosis hypotensive on vasopressors, currently intubated for respiratory failure . Radiological test: Chest x-ray: Left lung atelectasis versus possible infiltrate Hospitalist Physical exam: GENERAL: Elderly WF lying on bed intubated and unresponsive HEENT: Normocephalic. Atraumatic. No conjunctival congestion or icterus. Patient has dry mucous membranes. NECK: Supple. Trachea midline. ET tube in place CHEST/LUNGS: Clear to auscultated bilaterally, breathing under vent. Positive for a few wheezes, crackles or rhonchi. HEART/CARDIOVASCULAR: tachycardic. S1 and S2 positive. ABDOMEN: Abdomen is soft, nontender. Patient has normal bowel sounds. SKIN: There is no rash. Warm and dry. NEURO: Sedated, does not follow any command MUSCULOSKELETAL: No joint effusion EXTRIMITY: No edema, cyanosis of the toes and fingers. PSYCH: Unable to assess Subjective Date of service: 01/20/18 Principal diagnosis: Acute hypoxic respiratory failure, severe sepsis with shock , encephalopathy Interval history: Patient seen and examined in the ICU Medical record and medication list reviewed Discussed with RN at the bedside Patient remained intubated and sedated, unable to follow any command Updated daughter by phone, cont to spike fever Objective - Constitutional Vitals: Vital Signs - 12hr 01/19/18 01/19/18 01/19/18 23:30 23:39 23:41 Temperature Pulse Rate 117 H 118 H 118 H Pulse Rate [ Anterior Bilateral Throughout] Pulse Rate [ From Monitor] Pulse Rate [ Right Dorsalis Pedis] Respiratory 35 H 32 H Rate Respiratory Rate [Anterior Bilateral Throughout] Blood Pressure 131/101 131/101 155/96 O2 Sat by Pulse 94 Oximetry 01/19/18 01/19/18 01/20/18 23:51 23:53 00:00 Temperature 102.7 F H Pulse Rate 117 H 117 H Pulse Rate [ Anterior Bilateral Throughout] Pulse Rate [ From Monitor] Pulse Rate [ 109 H Right Dorsalis Pedis] Respiratory 29 H 35 H Rate Respiratory Rate [Anterior Bilateral Throughout] Blood Pressure 146/98 136/100 O2 Sat by Pulse 95 95 Oximetry 01/20/18 01/20/18 01/20/18 00:11 00:21 00:30 Temperature Pulse Rate 117 H 118 H 114 H Pulse Rate [ Anterior Bilateral Throughout] Pulse Rate [ From Monitor] Pulse Rate [ Right Dorsalis Pedis] Respiratory 27 H 31 H 29 H Rate Respiratory Rate [Anterior Bilateral Throughout] Blood Pressure 131/101 154/91 139/89 O2 Sat by Pulse 96 95 94 Oximetry 01/20/18 01/20/18 01/20/18 00:41 00:51 01:00 Temperature Pulse Rate 118 H 118 H 119 H Pulse Rate [ Anterior Bilateral Throughout] Pulse Rate [ From Monitor] Pulse Rate [ Right Dorsalis Pedis] Respiratory 32 H 27 H 34 H Rate Respiratory Rate [Anterior Bilateral Throughout] Blood Pressure 136/100 163/90 159/105 O2 Sat by Pulse 95 95 95 Oximetry 01/20/18 01/20/18 01/20/18 01:11 01:21 01:30 Temperature Pulse Rate 118 H 118 H 119 H Pulse Rate [ Anterior Bilateral Throughout] Pulse Rate [ From Monitor] Pulse Rate [ Right Dorsalis Pedis] Respiratory 33 H 34 H 35 H Rate Respiratory Rate [Anterior Bilateral Throughout] Blood Pressure 139/89 154/103 164/108 O2 Sat by Pulse 95 95 94 Oximetry 01/20/18 01/20/18 01/20/18 01:36 01:41 01:46 Temperature Pulse Rate 116 H Pulse Rate [ 118 H 116 H Anterior Bilateral Throughout] Pulse Rate [ From Monitor] Pulse Rate [ Right Dorsalis Pedis] Respiratory 24 Rate Respiratory 23 24 Rate [Anterior Bilateral Throughout] Blood Pressure 164/108 O2 Sat by Pulse 94 Oximetry 01/20/18 01/20/18 01/20/18 01:51 02:00 02:11 Temperature Pulse Rate 117 H 117 H 117 H Pulse Rate [ Anterior Bilateral Throughout] Pulse Rate [ From Monitor] Pulse Rate [ Right Dorsalis Pedis] Respiratory 29 H 31 H 34 H Rate Respiratory Rate [Anterior Bilateral Throughout] Blood Pressure 121/78 143/97 143/97 O2 Sat by Pulse 96 95 95 Oximetry 01/20/18 01/20/18 01/20/18 02:21 02:30 02:41 Temperature Pulse Rate 110 H 111 H 115 H Pulse Rate [ Anterior Bilateral Throughout] Pulse Rate [ From Monitor] Pulse Rate [ Right Dorsalis Pedis] Respiratory 20 29 H 28 H Rate Respiratory Rate [Anterior Bilateral Throughout] Blood Pressure 128/85 123/73 143/97 O2 Sat by Pulse 98 96 Oximetry 01/20/18 01/20/18 01/20/18 02:51 03:00 03:11 Temperature Pulse Rate 115 H 114 H 115 H Pulse Rate [ Anterior Bilateral Throughout] Pulse Rate [ From Monitor] Pulse Rate [ Right Dorsalis Pedis] Respiratory 27 H 29 H 36 H Rate Respiratory Rate [Anterior Bilateral Throughout] Blood Pressure 128/80 128/81 123/73 O2 Sat by Pulse 97 96 96 Oximetry 01/20/18 01/20/18 01/20/18 03:21 03:30 03:41 Temperature Pulse Rate 115 H 115 H 113 H Pulse Rate [ Anterior Bilateral Throughout] Pulse Rate [ From Monitor] Pulse Rate [ Right Dorsalis Pedis] Respiratory 29 H 33 H 29 H Rate Respiratory Rate [Anterior Bilateral Throughout] Blood Pressure 135/85 141/91 141/91 O2 Sat by Pulse 98 97 98 Oximetry 01/20/18 01/20/18 01/20/18 04:00 04:16 04:21 Temperature 102.8 F H Pulse Rate 115 H 112 H Pulse Rate [ Anterior Bilateral Throughout] Pulse Rate [ From Monitor] Pulse Rate [ 109 H Right Dorsalis Pedis] Respiratory 31 H 28 H Rate Respiratory Rate [Anterior Bilateral Throughout] Blood Pressure 116/83 116/83 O2 Sat by Pulse 97 90 93 Oximetry 01/20/18 01/20/18 01/20/18 04:30 04:41 04:51 Temperature Pulse Rate 111 H 111 H 112 H Pulse Rate [ Anterior Bilateral Throughout] Pulse Rate [ From Monitor] Pulse Rate [ Right Dorsalis Pedis] Respiratory 27 H 30 H 27 H Rate Respiratory Rate [Anterior Bilateral Throughout] Blood Pressure 115/78 115/78 120/76 O2 Sat by Pulse 96 97 98 Oximetry 01/20/18 01/20/18 01/20/18 05:00 05:11 05:21 Temperature Pulse Rate 111 H 110 H 111 H Pulse Rate [ Anterior Bilateral Throughout] Pulse Rate [ From Monitor] Pulse Rate [ Right Dorsalis Pedis] Respiratory 29 H 28 H 27 H Rate Respiratory Rate [Anterior Bilateral Throughout] Blood Pressure 123/77 123/77 117/78 O2 Sat by Pulse 98 97 98 Oximetry 01/20/18 01/20/18 01/20/18 05:30 05:41 05:51 Temperature Pulse Rate 111 H 111 H 111 H Pulse Rate [ Anterior Bilateral Throughout] Pulse Rate [ From Monitor] Pulse Rate [ Right Dorsalis Pedis] Respiratory 27 H 28 H 29 H Rate Respiratory Rate [Anterior Bilateral Throughout] Blood Pressure 119/80 119/80 119/76 O2 Sat by Pulse 98 98 98 Oximetry 01/20/18 01/20/18 01/20/18 06:00 06:11 06:21 Temperature Pulse Rate 109 H 110 H 110 H Pulse Rate [ Anterior Bilateral Throughout] Pulse Rate [ From Monitor] Pulse Rate [ Right Dorsalis Pedis] Respiratory 27 H 27 H 28 H Rate Respiratory Rate [Anterior Bilateral Throughout] Blood Pressure 110/77 110/77 124/80 O2 Sat by Pulse 99 98 98 Oximetry 01/20/18 01/20/18 01/20/18 06:30 06:41 06:51 Temperature Pulse Rate 111 H 111 H 111 H Pulse Rate [ Anterior Bilateral Throughout] Pulse Rate [ From Monitor] Pulse Rate [ Right Dorsalis Pedis] Respiratory 28 H 27 H 28 H Rate Respiratory Rate [Anterior Bilateral Throughout] Blood Pressure 127/81 127/81 125/81 O2 Sat by Pulse 98 98 99 Oximetry 01/20/18 01/20/18 01/20/18 07:00 07:11 07:21 Temperature Pulse Rate 112 H 112 H 111 H Pulse Rate [ Anterior Bilateral Throughout] Pulse Rate [ From Monitor] Pulse Rate [ Right Dorsalis Pedis] Respiratory 28 H 28 H 28 H Rate Respiratory Rate [Anterior Bilateral Throughout] Blood Pressure 137/82 137/82 133/86 O2 Sat by Pulse 99 98 97 Oximetry 01/20/18 01/20/18 01/20/18 07:30 07:41 07:51 Temperature Pulse Rate 113 H 113 H 113 H Pulse Rate [ Anterior Bilateral Throughout] Pulse Rate [ From Monitor] Pulse Rate [ Right Dorsalis Pedis] Respiratory 31 H 31 H 29 H Rate Respiratory Rate [Anterior Bilateral Throughout] Blood Pressure 143/92 143/92 148/89 O2 Sat by Pulse 97 97 97 Oximetry 01/20/18 01/20/18 01/20/18 08:00 08:11 08:21 Temperature Pulse Rate 111 H 112 H 110 H Pulse Rate [ Anterior Bilateral Throughout] Pulse Rate [ 112 H From Monitor] Pulse Rate [ Right Dorsalis Pedis] Respiratory 27 H 27 H 27 H Rate Respiratory Rate [Anterior Bilateral Throughout] Blood Pressure 127/83 127/83 128/79 O2 Sat by Pulse 97 97 98 Oximetry 01/20/18 01/20/18 01/20/18 10:07 10:13 10:23 Temperature Pulse Rate 113 H Pulse Rate [ 111 H 105 H Anterior Bilateral Throughout] Pulse Rate [ From Monitor] Pulse Rate [ Right Dorsalis Pedis] Respiratory Rate Respiratory 26 H 24 Rate [Anterior Bilateral Throughout] Blood Pressure 152/99 O2 Sat by Pulse 95 Oximetry - Labs CBC & Chem 7: 01/20/18 05:18 01/20/18 05:18 Labs: Abnormal lab results 01/19/18 01/19/18 01/19/18 Range/Units 06:50 11:31 22:12 WBC (4.5-11.0) K/mm3 MCH (28-32) pg Plt Count (140-440) K/mm3 Seg Neuts % (Manual) 86.0 H (40.0-70.0) % Lymphocytes % (Manual) 4.0 L (13.4-35.0) % Monocytes % (Manual) (0.0-7.3) % Seg Neutrophils # Man 15.9 H (1.8-7.7) K/mm3 Lymphocytes # (Manual) 0.7 L (1.2-5.4) K/mm3 Monocytes # (Manual) 1.1 H (0.0-0.8) K/mm3 PT (12.2-14.9) Sec. INR (0.87-1.13) POC ABG pCO2 31.6 L (35-45) POC ABG pO2 59 L (80-105) Sodium (137-145) mmol/L Chloride (98-107) mmol/L Carbon Dioxide (22-30) mmol/L BUN (7-17) mg/dL Creatinine (0.7-1.2) mg/dL Glucose (65-100) mg/dL POC Glucose 131 H (70-105) Calcium (8.4-10.2) mg/dL Total Bilirubin (0.1-1.2) mg/dL AST (5-40) units/L ALT (7-56) units/L Alkaline Phosphatase (35-129) units/L Total Protein (6.3-8.2) g/dL Albumin (3.9-5) g/dL 01/19/18 01/20/18 01/20/18 Range/Units 23:34 05:18 05:18 WBC 19.7 H (4.5-11.0) K/mm3 MCH 27 L (28-32) pg Plt Count 84 L (140-440) K/mm3 Seg Neuts % (Manual) 84.0 H (40.0-70.0) % Lymphocytes % (Manual) 2.0 L (13.4-35.0) % Monocytes % (Manual) 8.0 H (0.0-7.3) % Seg Neutrophils # Man 16.5 H (1.8-7.7) K/mm3 Lymphocytes # (Manual) 0.4 L (1.2-5.4) K/mm3 Monocytes # (Manual) 1.6 H (0.0-0.8) K/mm3 PT (12.2-14.9) Sec. INR (0.87-1.13) POC ABG pCO2 (35-45) POC ABG pO2 (80-105) Sodium 136 L (137-145) mmol/L Chloride 96.9 L (98-107) mmol/L Carbon Dioxide 17 L (22-30) mmol/L BUN 65 H (7-17) mg/dL Creatinine 4.1 H D (0.7-1.2) mg/dL Glucose 104 H (65-100) mg/dL POC Glucose 53 L (70-105) Calcium 7.1 L (8.4-10.2) mg/dL Total Bilirubin 1.60 H (0.1-1.2) mg/dL AST 1702 H (5-40) units/L ALT 1141 H (7-56) units/L Alkaline Phosphatase 172 H (35-129) units/L Total Protein 5.0 L (6.3-8.2) g/dL Albumin 1.7 L (3.9-5) g/dL 18 01/20/18 Range/Units 05:19 07:00 WBC (4.5-11.0) K/mm3 MCH (28-32) pg Plt Count (140-440) K/mm3 Seg Neuts % (Manual) (40.0-70.0) % Lymphocytes % (Manual) (13.4-35.0) % Monocytes % (Manual) (0.0-7.3) % Seg Neutrophils # Man (1.8-7.7) K/mm3 Lymphocytes # (Manual) (1.2-5.4) K/mm3 Monocytes # (Manual) (0.0-0.8) K/mm3 PT 17.5 H (12.2-14.9) Sec. INR 1.35 H (0.87-1.13) POC ABG pCO2 (35-45) POC ABG pO2 (80-105) Sodium (137-145) mmol/L Chloride (98-107) mmol/L Carbon Dioxide (22-30) mmol/L BUN (7-17) mg/dL Creatinine (0.7-1.2) mg/dL Glucose (65-100) mg/dL POC Glucose 125 H (70-105) Calcium (8.4-10.2) mg/dL Total Bilirubin (0.1-1.2) mg/dL AST (5-40) units/L ALT (7-56) units/L Alkaline Phosphatase (35-129) units/L Total Protein (6.3-8.2) g/dL Albumin (3.9-5) g/dL
[2018-01-20] MEDS ORDERED: D5/0.45NS 1,000 ML IV SCH (12:00)
[2018-01-20] MEDS ORDERED: D5NS 1,000 ML IV SCH (12:00)
[2018-01-20 12:49] LABS: Hepatitis A Antibody IgM Non-Reactive (NonReactive); Hepatitis B Core IgM Non-Reactive (NonReactive); Hepatitis B Surface Antigen Non-Reactive (Negative); Hepatitis C Virus Antibody Non-Reactive (NonReactive)
--- NOTE | 2018-01-20 12:53 | Consultation ---
History of Present Illness - Reason for Consult Consult date: 01/20/18 fever Requesting physician: ALESSAI RODNEY - History of Present Illness 62 years old female with hsitory of pacemaker in placed and ?presumed drug abuse ; admitted 01/17/18 after being found unresponsive in the bathroom. Upon EMS arrival, patient was alert and oriented 2. Her O2 sat was found low and she was placed on a nonrebreather. In the ED, initial temperature was 97, heart rate 95, respiration 25, blood pressure 78/42, O2 sat 99%. Initial white count 8.2. Hemoglobin 11.4. Platelets 209. Creatinine 3.3. Lactic acid 3. Hemoglobin A1c 9. In the ED she became more hypotensive, was found hypoglycemic, was intubated and started on pressors. On January 18 she spiked a fever of 101.9. Patient weak and oliguric and was started on hemodialysis. Chest x-ray showed left-sided atelectasis. TTE EF30-35%. Microbiology: Blood cultures: 01/17 ngtd 01/20 ngtd Urine cultures: Respiratory cultures: TA 01/17 ngtd Current Antimicrobials: Zosyn 01/18 Vancomycin 01/18 Previous Antimicrobials: Past History Past Medical History: other (unable to obtain ) Past Surgical History: Other (pacemaker) Medications and Allergies Allergies Allergy/AdvReac Type Severity Reaction Status Date / Time Penicillins Allergy Hives Verified 01/17/18 15:27 Home Medications Medication Instructions Recorded Confirmed Last Taken Type Lisinopril 40 mg PO DAILY 01/17/18 01/17/18 Unknown History Active Meds: Active Medications Acetaminophen (Tylenol) 650 mg FEEDTUBE Q6H PRN PRN Reason: Pain MILD(1-3)/Fever >100.5/WHEELER Last Admin: 01/20/18 11:50 Dose: 650 mg Albuterol (Proventil) 2.5 mg IH Q4HRT PRN PRN Reason: Shortness Of Breath Albuterol/Ipratropium (Duoneb *Not For Prn Use*) 1 ampul IH Q6HRT [facility] Last Admin: 01/20/18 10:13 Dose: 1 ampul Lipase/Protease/Amylase (Pancreaze Dr 10,500 Unit) 1 each FEEDTUBE PRN PRN PRN Reason: For Clogged Feeding Tube Dextrose (D50w (25gm) Syringe) 50 ml IV PRN PRN PRN Reason: Hypoglycemia Famotidine (Pepcid) 20 mg IV DAILY RIGOBERTO Last Admin: 01/20/18 09:45 Dose: 20 mg Heparin Sodium (Porcine) (Heparin) 5,000 unit SUB-Q Q12HR RIGOBERTO Last Admin: 01/20/18 09:45 Dose: 5,000 unit Heparin Sodium (Porcine) (Heparin) 5,000 unit IV PAYAL PRN PRN Reason: hemodialysis Last Admin: 01/18/18 21:36 Dose: 5,000 unit Hydromorphone HCl (Dilaudid) 0.5 mg IV Q3H PRN PRN Reason: Pain , Severe (7-10) Hydrophilic Ointment (Vaseline Lip Therapy) 1 applic TP Q2HR PRN PRN Reason: Dry Lips Fentanyl Citrate (Fentanyl Drip Premix) 2,000 mcg in 100 mls @ 5.67 mls/hr IV TITR RIGOBERTO; Protocol Last Admin: 01/18/18 07:52 Dose: 2 mcg/kg/hr, 11.34 mls/hr Propofol (Diprivan 10 Mg/Ml) 1,000 mg in 100 mls @ 3.402 mls/hr IV TITR RIGOBERTO; Protocol Last Admin: 01/19/18 15:47 Dose: 10 mcg/kg/min, 6.804 mls/hr Piperacillin Sod/Tazobactam Sod (Zosyn/Ns 2.25 Gm/50ml) 2.25 gm in 50 mls @ 100 mls/hr IV Q8H RIGOBERTO; Protocol Last Admin: 01/20/18 09:45 Dose: 100 mls/hr Lorazepam 100 mg/ Sodium Chloride/ Miscellaneous Information 100 mls @ 1 mls/ hr IV TITR RIGOBERTO; Protocol Last Admin: 01/18/18 13:00 Dose: 2 mg/hr, 2 mls/hr Vasopressin 20 unit/ Sodium (Chloride) 101 mls @ 9.09 mls/hr IV TITR RIGOBERTO; Protocol Stop: 01/22/18 23:59 Last Titration: 01/18/18 15:00 Dose: 0 units/min, 0 mls/hr Dopamine HCl/Dextrose (Intropin Drip 800 Mg/D5w 250 Ml) 800 mg in 250 mls @ 4.252 mls/hr IV TITR RIGOBERTO; Protocol Last Titration: 01/18/18 10:00 Dose: Infused Sodium Chloride (Nacl 0.9%) 100 mls @ 999 mls/hr IV PAYAL PRN PRN Reason: Hypotension Norepinephrine 8 mg/ Sodium (Chloride) 250 mls @ 56.25 mls/hr IV TITR RIGOBERTO; Protocol Last Titration: 01/19/18 22:03 Dose: 0 mcg/min, 0 mls/hr Dextrose/Sodium Chloride (D5ns) 1,000 mls @ 42 mls/hr IV DIRECT RIGOBERTO Dextrose/Sodium Chloride (D5/0.45ns) 1,000 mls @ 42 mls/hr IV DIRECT RIGOBERTO Last Admin: 01/20/18 12:21 Dose: 42 mls/hr Insulin Human Lispro (Humalog) 0 unit SUB-Q Q6HR RIGOBERTO; Protocol Last Admin: 01/20/18 11:52 Dose: Not Given Methylprednisolone Sodium Succinate (Solu-Medrol) 40 mg IV Q8H RIGOBERTO Last Admin: 01/20/18 09:45 Dose: 40 mg Metoclopramide HCl (Reglan) 10 mg IV Q6H PRN PRN Reason: Nausea And Vomiting Last Admin: 01/19/18 09:16 Dose: 10 mg Morphine Sulfate (Morphine) 2 mg IV Q4H PRN PRN Reason: Pain, Moderate (4-6) Multi-Ingred Cream/Lotion/Oil/Oint (Artificial Tears Ophth Oint) 1 applic OU Q4HR PRN PRN Reason: Dry Eye(s) Last Admin: 01/19/18 17:41 Dose: 1 applic Simple Syrup (Simple Syrup) 15 ml FEEDTUBE PRN PRN PRN Reason: Hypoglycemia Simple Syrup (Simple Syrup) 30 ml FEEDTUBE PRN PRN PRN Reason: Hypoglycemia Sodium Bicarbonate (Sodium Bicarbonate) 325 mg FEEDTUBE PRN PRN PRN Reason: For Clogged Feeding Tube Sodium Chloride (Nacl 0.9% 500 Ml) 1 ml IV DIRECT RIGOBERTO Sodium Chloride (Sodium Chloride Flush Syringe 10 Ml) 10 ml IV BID RIGOBERTO Last Admin: 01/19/18 10:51 Dose: 10 ml Sodium Chloride (Sodium Chloride Flush Syringe 10 Ml) 10 ml IV PRN PRN PRN Reason: LINE FLUSH Vancomycin HCl (Vancomycin Pharmacy To Dose) 1 each IV PKCONSULT [facility]; Protocol Review of Systems ROS unobtainable: due to endotracheal tube All systems: negative Physical Examination - Physical Exam Narrative exam: General appearance: sedated on the vent Eyes: anicteric sclerae, moist conjunctivae; no lid-lag; PERRLA HENT: Atraumatic; oropharynx clear +ETT +NGT Neck: Trachea midline; supple, no thyromegaly or lymphadenopathy Lungs: juan rhonchi CV: tachy Abdomen: Soft, non-tender; distended Extremities: No peripheral edema or extremity lymphadenopathy Skin: mild erythematous macular rash on chest and upper arms. +bilateral multiple fingers purpuric changes Psych: sedated Neuro: sedated Lines: right fem vascath, right IJ TLC - Constitutional Vitals: Vital Signs Temp Pulse Resp BP Pulse Ox 102.8 F H 105 H 24 152/99 95 01/20/18 04:00 01/20/18 10:23 01/20/18 10:23 01/20/18 10:07 01/20/18 10:07 Temperature -Last 24 Hours Temperature 102.8 F Temperature 102.7 F Temperature 101.5 F Results - Labs CBC & Chem 7: 01/20/18 05:18 01/20/18 05:18 Labs: Abnormal lab results 01/19/18 01/19/18 01/20/18 Range/Units 22:12 23:34 05:18 WBC 19.7 H (4.5-11.0) K/mm3 MCH 27 L (28-32) pg Plt Count 84 L (140-440) K/mm3 Seg Neuts % (Manual) 84.0 H (40.0-70.0) % Lymphocytes % (Manual) 2.0 L (13.4-35.0) % Monocytes % (Manual) 8.0 H (0.0-7.3) % Seg Neutrophils # Man 16.5 H (1.8-7.7) K/mm3 Lymphocytes # (Manual) 0.4 L (1.2-5.4) K/mm3 Monocytes # (Manual) 1.6 H (0.0-0.8) K/mm3 PT (12.2-14.9) Sec. INR (0.87-1.13) Sodium (137-145) mmol/L Chloride (98-107) mmol/L Carbon Dioxide (22-30) mmol/L BUN (7-17) mg/dL Creatinine (0.7-1.2) mg/dL Glucose (65-100) mg/dL POC Glucose 131 H 53 L (70-105) Calcium (8.4-10.2) mg/dL Total Bilirubin (0.1-1.2) mg/dL AST (5-40) units/L ALT (7-56) units/L Alkaline Phosphatase (35-129) units/L Total Protein (6.3-8.2) g/dL Albumin (3.9-5) g/dL 01/20/18 01/20/18 01/20/18 Range/Units 05:18 05:19 07:00 WBC (4.5-11.0) K/mm3 MCH (28-32) pg Plt Count (140-440) K/mm3 Seg Neuts % (Manual) (40.0-70.0) % Lymphocytes % (Manual) (13.4-35.0) % Monocytes % (Manual) (0.0-7.3) % Seg Neutrophils # Man (1.8-7.7) K/mm3 Lymphocytes # (Manual) (1.2-5.4) K/mm3 Monocytes # (Manual) (0.0-0.8) K/mm3 PT 17.5 H (12.2-14.9) Sec. INR 1.35 H (0.87-1.13) Sodium 136 L (137-145) mmol/L Chloride 96.9 L (98-107) mmol/L Carbon Dioxide 17 L (22-30) mmol/L BUN 65 H (7-17) mg/dL Creatinine 4.1 H D (0.7-1.2) mg/dL Glucose 104 H (65-100) mg/dL POC Glucose 125 H (70-105) Calcium 7.1 L (8.4-10.2) mg/dL Total Bilirubin 1.60 H (0.1-1.2) mg/dL AST 1702 H (5-40) units/L ALT 1141 H (7-56) units/L Alkaline Phosphatase 172 H (35-129) units/L Total Protein 5.0 L (6.3-8.2) g/dL Albumin 1.7 L (3.9-5) g/dL 01/20/18 Range/Units 11:48 WBC (4.5-11.0) K/mm3 MCH (28-32) pg Plt Count (140-440) K/mm3 Seg Neuts % (Manual) (40.0-70.0) % Lymphocytes % (Manual) (13.4-35.0) % Monocytes % (Manual) (0.0-7.3) % Seg Neutrophils # Man (1.8-7.7) K/mm3 Lymphocytes # (Manual) (1.2-5.4) K/mm3 Monocytes # (Manual) (0.0-0.8) K/mm3 PT (12.2-14.9) Sec. INR (0.87-1.13) Sodium (137-145) mmol/L Chloride (98-107) mmol/L Carbon Dioxide (22-30) mmol/L BUN (7-17) mg/dL Creatinine (0.7-1.2) mg/dL Glucose (65-100) mg/dL POC Glucose 109 H (70-105) Calcium (8.4-10.2) mg/dL Total Bilirubin (0.1-1.2) mg/dL AST (5-40) units/L ALT (7-56) units/L Alkaline Phosphatase (35-129) units/L Total Protein (6.3-8.2) g/dL Albumin (3.9-5) g/dL Assessment and Plan Assessment: 1) Severe sepsis with septic shock and MODS: Present on admission, manifested by fever, tachycardia, hypotension, increased lactate. Etiology most likely unclear. DDx: aspiration pneumonia, endocarditis, PE 2) Acute respiratory failure 3) Acute encephalopathy 4) JANESSA: worsening now on HD 5) Presumed ? drug abuse 6) DM-poorly controlled 7) Bilateral fingers ischemic changes 8) Pacemaker in place 9) Low EF Plan: -eval for PE? -legs US r/o DVT -vascular eval in view of juan finger ischemic changes -follow-up blood cultures -obtain respiratory cultures, procalcitonin, C-reactive protein (CRP) -check influenza antigen PCR in nasopharinx -continue vancomycin and zosyn renally dosed Thank you for your consultation, will follow up with you. Michaela Parekh MD Infectious Diseases Specialist [facility] ([facility]) M [phone] O [phone]
--- NOTE | 2018-01-20 12:55 | XRay Report ---
AP ABDOMEN: HISTORY: Distention. A nasogastric tube terminates in the fundus of the stomach. Right femoral venous catheter terminates at the level of L3-4. Little gas is appreciated within the abdomen. No obvious obstructive pattern. Calcifications overlie the expected position of the left kidney suggesting left nephrolithiasis. Cardiomegaly and small left pleural effusion are partially imaged at the lung bases. IMPRESSION: Unremarkable abdomen. Left abdominal calcifications which could represent renal stones. Cardiomegaly and left pleural effusion.
[2018-01-20] MEDS ORDERED: NACL 0.9% 100 ML IV PRN (15:12)
--- NOTE | 2018-01-20 16:24 | Progress Note ---
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 History of cocaine abuse, Acute encephalopathy Lactic acidosis Thrombocytopenia - Continue with mechanical ventilatory support - VAP bundle addressed - daily evaluation for SATs and SBTs - HD/UF per nephrology for toxin and volume clearance - VTE prophylaxis with eliquis and send HIT assay - continue stress ulcer prophylaxis - continue Empiric antibiotics, plan to de-escalate per ID recs - continue supplemental oxygen to wean for oxygen saturations >90% (on 70% FiO2 now) - Wean vasopressor support for MAP>65 - continue Lung protective strategies, ARDS-net protocol - send repeat lactic acid and send CRP levels re: anti-infective de-escalation - continue other care per attending/other consultants ....remains critically ill on MVS and at high risk for further deterioration including ...35' CCT Subjective Date of service: 01/20/18 Principal diagnosis: Acute hypoxic respiratory failure, severe sepsis with shock , encephalopathy Interval history: Patient seen today for: Acute hypoxic respiratory failure, severe sepsis with shock, encephalopathy Seen and examined at bedside; 24-hour events reviewed; nursing and respiratory care staff consulted; no adverse overnight events reported to me; remains on MVS ; FiO2 slowly improving; still encephalopathic; No emesis or overt aspiration reported; platelets dropping Objective Vital Signs - 12hr 01/20/18 01/20/18 01/20/18 04:30 04:41 04:51 Pulse Rate 111 H 111 H 112 H Pulse Rate [ Anterior Bilateral Throughout] Pulse Rate [ From Monitor] Respiratory 27 H 30 H 27 H Rate Respiratory Rate [Anterior Bilateral Throughout] Blood Pressure 115/78 115/78 120/76 O2 Sat by Pulse 96 97 98 Oximetry 01/20/18 01/20/18 01/20/18 05:00 05:11 05:21 Pulse Rate 111 H 110 H 111 H Pulse Rate [ Anterior Bilateral Throughout] Pulse Rate [ From Monitor] Respiratory 29 H 28 H 27 H Rate Respiratory Rate [Anterior Bilateral Throughout] Blood Pressure 123/77 123/77 117/78 O2 Sat by Pulse 98 97 98 Oximetry 01/20/18 01/20/18 01/20/18 05:30 05:41 05:51 Pulse Rate 111 H 111 H 111 H Pulse Rate [ Anterior Bilateral Throughout] Pulse Rate [ From Monitor] Respiratory 27 H 28 H 29 H Rate Respiratory Rate [Anterior Bilateral Throughout] Blood Pressure 119/80 119/80 119/76 O2 Sat by Pulse 98 98 98 Oximetry 01/20/18 01/20/18 01/20/18 06:00 06:11 06:21 Pulse Rate 109 H 110 H 110 H Pulse Rate [ Anterior Bilateral Throughout] Pulse Rate [ From Monitor] Respiratory 27 H 27 H 28 H Rate Respiratory Rate [Anterior Bilateral Throughout] Blood Pressure 110/77 110/77 124/80 O2 Sat by Pulse 99 98 98 Oximetry 01/20/18 01/20/18 01/20/18 06:30 06:41 06:51 Pulse Rate 111 H 111 H 111 H Pulse Rate [ Anterior Bilateral Throughout] Pulse Rate [ From Monitor] Respiratory 28 H 27 H 28 H Rate Respiratory Rate [Anterior Bilateral Throughout] Blood Pressure 127/81 127/81 125/81 O2 Sat by Pulse 98 98 99 Oximetry 01/20/18 01/20/18 01/20/18 07:00 07:11 07:21 Pulse Rate 112 H 112 H 111 H Pulse Rate [ Anterior Bilateral Throughout] Pulse Rate [ From Monitor] Respiratory 28 H 28 H 28 H Rate Respiratory Rate [Anterior Bilateral Throughout] Blood Pressure 137/82 137/82 133/86 O2 Sat by Pulse 99 98 97 Oximetry 01/20/18 01/20/18 01/20/18 07:30 07:41 07:51 Pulse Rate 113 H 113 H 113 H Pulse Rate [ Anterior Bilateral Throughout] Pulse Rate [ From Monitor] Respiratory 31 H 31 H 29 H Rate Respiratory Rate [Anterior Bilateral Throughout] Blood Pressure 143/92 143/92 148/89 O2 Sat by Pulse 97 97 97 Oximetry 01/20/18 01/20/18 01/20/18 08:00 08:11 08:21 Pulse Rate 111 H 112 H 110 H Pulse Rate [ Anterior Bilateral Throughout] Pulse Rate [ 112 H From Monitor] Respiratory 27 H 27 H 27 H Rate Respiratory Rate [Anterior Bilateral Throughout] Blood Pressure 127/83 127/83 128/79 O2 Sat by Pulse 97 97 98 Oximetry 01/20/18 01/20/18 01/20/18 08:30 08:41 08:51 Pulse Rate 112 H 111 H 110 H Pulse Rate [ Anterior Bilateral Throughout] Pulse Rate [ From Monitor] Respiratory 33 H 27 H 28 H Rate Respiratory Rate [Anterior Bilateral Throughout] Blood Pressure 144/95 144/95 126/78 O2 Sat by Pulse 96 97 97 Oximetry 01/20/18 01/20/18 01/20/18 09:00 09:11 09:21 Pulse Rate 111 H 112 H 110 H Pulse Rate [ Anterior Bilateral Throughout] Pulse Rate [ From Monitor] Respiratory 27 H 28 H 27 H Rate Respiratory Rate [Anterior Bilateral Throughout] Blood Pressure 139/88 139/88 127/86 O2 Sat by Pulse 98 98 97 Oximetry 01/20/18 01/20/18 01/20/18 09:30 09:41 09:51 Pulse Rate 112 H 117 H 112 H Pulse Rate [ Anterior Bilateral Throughout] Pulse Rate [ From Monitor] Respiratory 27 H 33 H 27 H Rate Respiratory Rate [Anterior Bilateral Throughout] Blood Pressure 133/89 133/89 141/88 O2 Sat by Pulse 99 97 98 Oximetry 01/20/18 01/20/18 01/20/18 10:00 10:07 10:11 Pulse Rate 113 H 113 H 110 H Pulse Rate [ Anterior Bilateral Throughout] Pulse Rate [ From Monitor] Respiratory 29 H 24 Rate Respiratory Rate [Anterior Bilateral Throughout] Blood Pressure 152/99 152/99 152/99 O2 Sat by Pulse 96 95 97 Oximetry 01/20/18 01/20/18 01/20/18 10:13 10:21 10:23 Pulse Rate 105 H Pulse Rate [ 111 H 105 H Anterior Bilateral Throughout] Pulse Rate [ From Monitor] Respiratory 21 Rate Respiratory 26 H 24 Rate [Anterior Bilateral Throughout] Blood Pressure 152/99 O2 Sat by Pulse 100 Oximetry 01/20/18 01/20/18 01/20/18 10:30 10:41 10:51 Pulse Rate 113 H 114 H 114 H Pulse Rate [ Anterior Bilateral Throughout] Pulse Rate [ From Monitor] Respiratory 27 H 29 H 30 H Rate Respiratory Rate [Anterior Bilateral Throughout] Blood Pressure 142/91 142/91 151/90 O2 Sat by Pulse 98 97 98 Oximetry 01/20/18 01/20/18 01/20/18 11:00 11:11 11:21 Pulse Rate 114 H 115 H 115 H Pulse Rate [ Anterior Bilateral Throughout] Pulse Rate [ From Monitor] Respiratory 30 H 30 H 30 H Rate Respiratory Rate [Anterior Bilateral Throughout] Blood Pressure 149/99 149/99 159/103 O2 Sat by Pulse 97 98 97 Oximetry 01/20/18 01/20/18 01/20/18 11:30 11:41 11:51 Pulse Rate 114 H 115 H 116 H Pulse Rate [ Anterior Bilateral Throughout] Pulse Rate [ From Monitor] Respiratory 27 H 29 H 27 H Rate Respiratory Rate [Anterior Bilateral Throughout] Blood Pressure 153/89 153/89 151/93 O2 Sat by Pulse 98 97 98 Oximetry 01/20/18 01/20/18 01/20/18 12:00 12:11 12:21 Pulse Rate 115 H 116 H 115 H Pulse Rate [ Anterior Bilateral Throughout] Pulse Rate [ From Monitor] Respiratory 28 H 31 H 29 H Rate Respiratory Rate [Anterior Bilateral Throughout] Blood Pressure 150/91 150/91 146/98 O2 Sat by Pulse 98 98 97 Oximetry 01/20/18 01/20/18 01/20/18 12:30 12:41 12:51 Pulse Rate 113 H 113 H 114 H Pulse Rate [ Anterior Bilateral Throughout] Pulse Rate [ From Monitor] Respiratory 27 H 30 H 31 H Rate Respiratory Rate [Anterior Bilateral Throughout] Blood Pressure 126/83 126/83 122/83 O2 Sat by Pulse 97 98 92 Oximetry 01/20/18 01/20/18 01/20/18 13:00 13:11 13:21 Pulse Rate 114 H 114 H 115 H Pulse Rate [ Anterior Bilateral Throughout] Pulse Rate [ From Monitor] Respiratory 27 H 28 H 30 H Rate Respiratory Rate [Anterior Bilateral Throughout] Blood Pressure 140/85 140/85 149/94 O2 Sat by Pulse 90 89 88 Oximetry 01/20/18 01/20/18 01/20/18 13:30 13:41 13:51 Pulse Rate 114 H 113 H 113 H Pulse Rate [ Anterior Bilateral Throughout] Pulse Rate [ From Monitor] Respiratory 31 H 27 H 30 H Rate Respiratory Rate [Anterior Bilateral Throughout] Blood Pressure 126/86 126/86 122/79 O2 Sat by Pulse 85 88 87 Oximetry 01/20/18 01/20/18 01/20/18 14:00 14:11 14:21 Pulse Rate 113 H 114 H 114 H Pulse Rate [ Anterior Bilateral Throughout] Pulse Rate [ From Monitor] Respiratory 28 H 31 H 29 H Rate Respiratory Rate [Anterior Bilateral Throughout] Blood Pressure 142/84 142/84 130/79 O2 Sat by Pulse 86 92 99 Oximetry 01/20/18 01/20/18 01/20/18 14:30 14:36 14:38 Pulse Rate 113 H 113 H Pulse Rate [ 114 H Anterior Bilateral Throughout] Pulse Rate [ From Monitor] Respiratory 28 H Rate Respiratory 30 H Rate [Anterior Bilateral Throughout] Blood Pressure 130/80 130/80 O2 Sat by Pulse 99 99 Oximetry 01/20/18 01/20/18 01/20/18 14:41 14:50 14:51 Pulse Rate 111 H 112 H Pulse Rate [ 110 H Anterior Bilateral Throughout] Pulse Rate [ From Monitor] Respiratory 24 29 H Rate Respiratory 29 H Rate [Anterior Bilateral Throughout] Blood Pressure 130/80 116/77 O2 Sat by Pulse 90 89 Oximetry 01/20/18 01/20/18 01/20/18 15:00 15:11 15:21 Pulse Rate 111 H 112 H 110 H Pulse Rate [ Anterior Bilateral Throughout] Pulse Rate [ From Monitor] Respiratory 28 H 28 H 28 H Rate Respiratory Rate [Anterior Bilateral Throughout] Blood Pressure 125/78 125/78 115/75 O2 Sat by Pulse 84 81 L 82 L Oximetry 01/20/18 15:30 Pulse Rate 110 H Pulse Rate [ Anterior Bilateral Throughout] Pulse Rate [ From Monitor] Respiratory 28 H Rate Respiratory Rate [Anterior Bilateral Throughout] Blood Pressure 118/72 O2 Sat by Pulse 81 L Oximetry Constitutional: appears uncomfortable Eyes: non-icteric ENT: oropharynx moist, other (ETT 23cm MARGOT) Neck: supple, no lymphadenopathy, no JVD, other (no thyromegaly) Effort: mildly labored Ascultation: Bilateral: diminished breath sounds, rales Percussion: Bilateral: not dull Cardiovascular: regular rate and rhythm, other (no rubs or murmurs) Gastrointestinal: normoactive bowel sounds, soft, non-tender, non-distended, other (no [place] HSM) Integumentary: normal Extremities: no cyanosis, no edema, pink and warm, pulses normal Neurologic: non-focal exam (grossly), motor strength normal and, unable to assess Psychiatric: other (unable to assess) CBC and BMP: 01/21/18 05:00 01/21/18 05:00 ABG, PT/INR, D-dimer: ABG POC ABG pH 7.402 (7.35-7.45) 01/20/18 05:31 POC ABG pCO2 35.6 (35-45) 01/20/18 05:31 POC ABG pO2 91 (80-105) 01/20/18 05:31 POC ABG HCO3 22.1 01/20/18 05:31 POC ABG Total CO2 23 01/20/18 05:31 POC ABG O2 Sat 97 01/20/18 05:31 PT/INR, D-dimer PT 17.5 Sec. (12.2-14.9) H 01/20/18 07:00 INR 1.35 (0.87-1.13) H 01/20/18 07:00 Abnormal lab findings: Abnormal Labs 01/17/18 01/17/18 01/17/18 15:25 16:15 16:48 WBC MCH Plt Count Seg Neuts % (Manual) Lymphocytes % (Manual) Monocytes % (Manual) Seg Neutrophils # Man Lymphocytes # (Manual) Monocytes # (Manual) PT INR POC ABG pH 7.099 L POC ABG pCO2 58.9 H POC ABG pO2 149 H VBG pH Sodium Chloride Carbon Dioxide BUN Creatinine Glucose POC Glucose < 40 L 121 H Hemoglobin A1c Lactic Acid Calcium Total Bilirubin AST ALT Alkaline Phosphatase C-Reactive Protein Total Protein Albumin 01/17/18 01/17/18 01/17/18 16:54 16:54 16:54 WBC MCH Plt Count Seg Neuts % (Manual) 72.0 H Lymphocytes % (Manual) 3.0 L Monocytes % (Manual) Seg Neutrophils # Man Lymphocytes # (Manual) 0.2 L Monocytes # (Manual) PT 18.5 H INR 1.45 H POC ABG pH POC ABG pCO2 POC ABG pO2 VBG pH Sodium 136 L Chloride 97.8 L Carbon Dioxide 16 L BUN 43 H Creatinine 3.3 H Glucose 121 H POC Glucose Hemoglobin A1c Lactic Acid Calcium 6.7 L Total Bilirubin AST ALT Alkaline Phosphatase C-Reactive Protein Total Protein 4.4 L Albumin 2.3 L 01/17/18 01/17/18 01/17/18 16:54 16:54 17:11 WBC MCH Plt Count Seg Neuts % (Manual) Lymphocytes % (Manual) Monocytes % (Manual) Seg Neutrophils # Man Lymphocytes # (Manual) Monocytes # (Manual) PT INR POC ABG pH POC ABG pCO2 POC ABG pO2 VBG pH 7.273 L Sodium Chloride Carbon Dioxide BUN Creatinine Glucose POC Glucose Hemoglobin A1c Lactic Acid 4.70 H* 4.30 H* Calcium Total Bilirubin AST ALT Alkaline Phosphatase C-Reactive Protein Total Protein Albumin 01/17/18 01/17/18 01/17/18 18:02 18:15 19:21 WBC MCH Plt Count Seg Neuts % (Manual) Lymphocytes % (Manual) Monocytes % (Manual) Seg Neutrophils # Man Lymphocytes # (Manual) Monocytes # (Manual) PT INR POC ABG pH 7.177 L POC ABG pCO2 POC ABG pO2 VBG pH Sodium Chloride Carbon Dioxide BUN Creatinine Glucose POC Glucose < 40 L Hemoglobin A1c Lactic Acid 3.00 H* Calcium Total Bilirubin AST ALT Alkaline Phosphatase C-Reactive Protein Total Protein Albumin 01/17/18 01/17/18 01/17/18 22:36 22:36 23:16 WBC MCH Plt Count Seg Neuts % (Manual) Lymphocytes % (Manual) Monocytes % (Manual) Seg Neutrophils # Man Lymphocytes # (Manual) Monocytes # (Manual) PT INR POC ABG pH 7.112 L POC ABG pCO2 50.1 H POC ABG pO2 50 L VBG pH Sodium Chloride Carbon Dioxide BUN Creatinine Glucose POC Glucose Hemoglobin A1c 9.0 H Lactic Acid 5.50 H* Calcium Total Bilirubin AST ALT Alkaline Phosphatase C-Reactive Protein Total Protein Albumin 01/18/18 01/18/18 01/18/18 01:26 03:21 03:21 WBC MCH Plt Count Seg Neuts % (Manual) 27.0 L Lymphocytes % (Manual) 3.0 L Monocytes % (Manual) 14.0 H Seg Neutrophils # Man Lymphocytes # (Manual) 0.3 L Monocytes # (Manual) 1.4 H PT INR POC ABG pH POC ABG pCO2 POC ABG pO2 VBG pH Sodium Chloride Carbon Dioxide BUN Creatinine Glucose POC Glucose 107 H Hemoglobin A1c Lactic Acid 8.00 H* Calcium Total Bilirubin AST ALT Alkaline Phosphatase C-Reactive Protein Total Protein Albumin 01/18/18 01/18/18 01/18/18 03:21 04:40 05:07 WBC MCH Plt Count Seg Neuts % (Manual) Lymphocytes % (Manual) Monocytes % (Manual) Seg Neutrophils # Man Lymphocytes # (Manual) Monocytes # (Manual) PT INR POC ABG pH 7.093 L POC ABG pCO2 31.5 L POC ABG pO2 77 L VBG pH Sodium Chloride 96.9 L Carbon Dioxide 14 L BUN 47 H Creatinine 3.4 H Glucose POC Glucose Hemoglobin A1c Lactic Acid 11.10 H* Calcium 6.4 L Total Bilirubin AST 47 H ALT Alkaline Phosphatase C-Reactive Protein Total Protein 4.3 L Albumin 2.4 L 0301/18/18 01/18/18 06:29 07:06 11:44 WBC MCH Plt Count Seg Neuts % (Manual) Lymphocytes % (Manual) Monocytes % (Manual) Seg Neutrophils # Man Lymphocytes # (Manual) Monocytes # (Manual) PT INR POC ABG pH POC ABG pCO2 POC ABG pO2 VBG pH Sodium Chloride Carbon Dioxide BUN Creatinine Glucose POC Glucose 47 L 149 H < 40 L Hemoglobin A1c Lactic Acid Calcium Total Bilirubin AST ALT Alkaline Phosphatase C-Reactive Protein Total Protein Albumin 01/18/18 01/18/18 01/18/18 11:46 14:15 18:01 WBC MCH Plt Count Seg Neuts % (Manual) Lymphocytes % (Manual) Monocytes % (Manual) Seg Neutrophils # Man Lymphocytes # (Manual) Monocytes # (Manual) PT INR POC ABG pH POC ABG pCO2 POC ABG pO2 VBG pH Sodium Chloride Carbon Dioxide BUN Creatinine Glucose POC Glucose 116 H < 40 L Hemoglobin A1c Lactic Acid 10.00 H* Calcium Total Bilirubin AST ALT Alkaline Phosphatase C-Reactive Protein Total Protein Albumin 01/18/18 01/18/18 01/18/18 18:02 23:25 23:27 WBC MCH Plt Count Seg Neuts % (Manual) Lymphocytes % (Manual) Monocytes % (Manual) Seg Neutrophils # Man Lymphocytes # (Manual) Monocytes # (Manual) PT INR POC ABG pH POC ABG pCO2 POC ABG pO2 VBG pH Sodium Chloride Carbon Dioxide BUN Creatinine Glucose POC Glucose 136 H < 40 L < 40 L Hemoglobin A1c Lactic Acid Calcium Total Bilirubin AST ALT Alkaline Phosphatase C-Reactive Protein Total Protein Albumin 01/19/18 01/19/18 01/19/18 04:02 06:50 06:50 WBC 18.5 H MCH Plt Count 136 L Seg Neuts % (Manual) 86.0 H Lymphocytes % (Manual) 4.0 L Monocytes % (Manual) Seg Neutrophils # Man 15.9 H Lymphocytes # (Manual) 0.7 L Monocytes # (Manual) 1.1 H PT 21.3 H INR 1.73 H POC ABG pH POC ABG pCO2 28.3 L POC ABG pO2 57 L VBG pH Sodium Chloride Carbon Dioxide BUN Creatinine Glucose POC Glucose Hemoglobin A1c Lactic Acid Calcium Total Bilirubin AST ALT Alkaline Phosphatase C-Reactive Protein Total Protein Albumin 01/19/18 01/19/18 01/19/18 06:50 08:45 11:17 WBC MCH Plt Count Seg Neuts % (Manual) Lymphocytes % (Manual) Monocytes % (Manual) Seg Neutrophils # Man Lymphocytes # (Manual) Monocytes # (Manual) PT INR POC ABG pH POC ABG pCO2 POC ABG pO2 VBG pH Sodium 135 L Chloride 92.8 L Carbon Dioxide 19 L BUN 31 H Creatinine 2.6 H Glucose POC Glucose 110 H Hemoglobin A1c Lactic Acid 7.90 H* Calcium 7.1 L Total Bilirubin 1.60 H AST 2526 H ALT 1187 H Alkaline Phosphatase 133 H C-Reactive Protein Total Protein 4.8 L Albumin 2.0 L 01/19/18 01/19/18 01/19/18 11:31 22:12 23:34 WBC MCH Plt Count Seg Neuts % (Manual) Lymphocytes % (Manual) Monocytes % (Manual) Seg Neutrophils # Man Lymphocytes # (Manual) Monocytes # (Manual) PT INR POC ABG pH POC ABG pCO2 31.6 L POC ABG pO2 59 L VBG pH Sodium Chloride Carbon Dioxide BUN Creatinine Glucose POC Glucose 131 H 53 L Hemoglobin A1c Lactic Acid Calcium Total Bilirubin AST ALT Alkaline Phosphatase C-Reactive Protein Total Protein Albumin 01/20/18 01/20/18 01/20/18 05:18 05:18 05:19 WBC 19.7 H MCH 27 L Plt Count 84 L Seg Neuts % (Manual) 84.0 H Lymphocytes % (Manual) 2.0 L Monocytes % (Manual) 8.0 H Seg Neutrophils # Man 16.5 H Lymphocytes # (Manual) 0.4 L Monocytes # (Manual) 1.6 H PT INR POC ABG pH POC ABG pCO2 POC ABG pO2 VBG pH Sodium 136 L Chloride 96.9 L Carbon Dioxide 17 L BUN 65 H Creatinine 4.1 H D Glucose 104 H POC Glucose 125 H Hemoglobin A1c Lactic Acid Calcium 7.1 L Total Bilirubin 1.60 H AST 1702 H ALT 1141 H Alkaline Phosphatase 172 H C-Reactive Protein Total Protein 5.0 L Albumin 1.7 L 01/20/18 01/20/18 01/20/18 07:00 11:48 13:54 WBC MCH Plt Count Seg Neuts % (Manual) Lymphocytes % (Manual) Monocytes % (Manual) Seg Neutrophils # Man Lymphocytes # (Manual) Monocytes # (Manual) PT 17.5 H INR 1.35 H POC ABG pH POC ABG pCO2 POC ABG pO2 VBG pH Sodium Chloride Carbon Dioxide BUN Creatinine Glucose POC Glucose 109 H Hemoglobin A1c Lactic Acid Calcium Total Bilirubin AST ALT Alkaline Phosphatase C-Reactive Protein 37.50 H Total Protein Albumin 01/20/18 Unknown WBC MCH Plt Count Seg Neuts % (Manual) Lymphocytes % (Manual) Monocytes % (Manual) Seg Neutrophils # Man Lymphocytes # (Manual) Monocytes # (Manual) PT INR POC ABG pH POC ABG pCO2 POC ABG pO2 VBG pH Sodium Chloride Carbon Dioxide BUN Creatinine Glucose POC Glucose Hemoglobin A1c Lactic Acid 2.50 H* Calcium Total Bilirubin AST ALT Alkaline Phosphatase C-Reactive Protein Total Protein Albumin Chest x-ray: image reviewed (AICD in right chest; stable bilateral effusions; ETT in good position; RIJ in place)
[2018-01-20] MEDS: ELIQUIS FEEDTUBE SCH ×2 (16:28→23:32)
[2018-01-20] MEDS: LEVOPHED 8 MG in NACL 0.9% 250ML 242 ML IV SCH (23:32)
[2018-01-21] MEDS: DUONEB *Not for PRN Use IH SCH ×4 (01:04→19:03)
--- NOTE | 2018-01-21 03:51 | XRay Report ---
FINAL REPORT PROCEDURE: XR CHEST 1V AP TECHNIQUE: Chest radiograph anteroposterior view. CPT 17841 HISTORY: follow up respiratory failure COMPARISON: 01/20/2018 FINDINGS: Heart: Normal. Mediastinum/Vessels: Normal. Lungs/Pleural space: There is a large left pleural effusion. There is suboptimal inspiration. There is atelectasis or infiltrate at the right lung base. There are no pneumothoraces.. Bony thorax: No acute osseous abnormality. Life support devices: The endotracheal tube, NG tube and central venous catheter are in proper position and unchanged from prior study.. IMPRESSION: The heart size is normal. There is a large left pleural effusion. There is suboptimal inspiration. There is atelectasis or infiltrate at the right lung base. There are no pneumothoraces.. The endotracheal tube, NG tube and central venous catheter are in proper position and unchanged from prior study..
[2018-01-21] MEDS: HumaLOG SUB-Q SCH ×4 (05:17→18:27)
[2018-01-21 05:48] LABS: Hematocrit 33.4 % (30.3-42.9); Hemoglobin 10.9 gm/dl (10.1-14.3); Mean Corpuscular HGB Conc 33 % (30-34); Mean Corpuscular Hemoglobin 27 pg (28-32); Mean Corpuscular Volume 84 fl (79-97); Red Cell Distribution Width 14.6 % (13.2-15.2)
[2018-01-21 05:54] LABS: Platelet Count 67 K/mm3 (140-440)
[2018-01-21 06:17] LABS: Albumin 1.9 g/dL (3.9-5); Calcium 7.5 mg/dL (8.4-10.2)
[2018-01-21 06:37] LABS: Band Neutrophils # (Manual) 3.9 K/mm3; Basophils % (Manual) 0 % (0.0-1.8); Eosinophils % (Manual) 0 % (0.0-4.3); Total Cells Counted 100
[2018-01-21 06:38] LABS: Stomatocytes Few
[2018-01-21 06:39] LABS: Dohle Bodies Rare; Platelet Estimate Consistent w Auto
--- NOTE | 2018-01-21 07:37 | Ultrasound Report ---
ULTRASOUND RENAL BILATERAL HISTORY: Acute renal insufficiency. TECHNIQUE: transabdominal ultrasound with color Doppler interrogation. COMPARISON: None at this facility. FINDINGS: The right kidney measures 11.5 x 4.5 x 5.3cm. Right renal cortex: 1.0cm. The left kidney measures 10.4 x 5.5 x 5.5cm. Left renal cortex: 1.2cm. The kidneys are normal size, contour and echotexture. No focal renal lesion, nephrolithiasis or hydronephrosis is identified. The bladder appears to be a decompressed containing a Bellamy catheter. While scanning the bladder, a complex cystic mass was identified in the superior pelvis measuring up to 10.3 cm in diameter. The etiology of this is unclear. This may be ovarian in origin. The uterus is visualized. There is no evidence for fibroid disease. The endometrial stripe is homogeneous but appears thickened measuring 13 mm. Correlate with the menstrual status of the patient and consider further imaging. IMPRESSION: Unremarkable renal ultrasound. A cystic mass is identified in the superior pelvis just above the uterine fundus, please see above. This cystic mass would likely best be evaluated with CT with IV and oral contrast if needed. I am assuming this patient is postmenopausal, the endometrium measures 13 mm. Consider further evaluation with pelvic ultrasound.
[2018-01-21] MEDS ORDERED: VANCOMYCIN PHARMACY TO DOSE IV SCH (08:00)
--- NOTE | 2018-01-21 08:37 | Progress Note ---
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 History of cocaine abuse, Acute encephalopathy Lactic acidosis Large left pleural effusion Fevers..cultures pending Thrombocytopenia -Continue with mechanical ventilatory support -VAP bundle -HIT pending, apixaban for VTE prophylaxis, continue with anticoagulation in view of ischemic digits -Daily evaluation for SATs and SBTs -For HD today per renal service -Bellamy catheter for monitoring of accurate intake and output in this patient with newly diagnosed acute renal failure in the setting of severe sepsis with septic shock -Stress ulcer prophylaxis -Empiric antibiotics, plan to de-escalate once cultures results are available -Supplemental oxygen to wean for oxygen saturations>90% -Wean vasopressor support for MAP>65 -Lung protective strategies, ARDS-net protocol -Discussed with ID, plan for thoracentesis of left pleural effusion to r/o parapneumoic effusion/empyema -Daughter updated Subjective Date of service: 01/21/18 Principal diagnosis: Acute hypoxic respiratory failure, severe sepsis with shock , encephalopathy Interval history: Patient seen today for: Acute hypoxic respiratory failures, severe sepsis with MODS, Seen and examined at bedside; 24-hour events reviewed; nursing and respiratory care staff consulted; no adverse overnight events reported to me; On going fevers, Vitals, labs, medications, chart notes reviewed. Discussed on interdisciplinary ICU rounds Objective - Exam Narrative Exam: General appearance: morbidly obese, encephalopathic Eyes: anicteric sclerae, moist conjunctivae; PERRLA HENT: Atraumatic; oropharynx clear +ETT +NGT Neck: Trachea midline; supple, no thyromegaly or lymphadenopathy Lungs: Decreased AE bilaterally, bilateral rhonchi CV: tachycardia, irregularly, irregular, S1, S2, no murmurs Abdomen: Soft, non-tender; distended Extremities: No peripheral edema or extremity lymphadenopathy Skin: mild erythematous macular rash on chest and upper arms. +bilateral multiple fingers ischemic changes..upper and lower extremities Psych: sedated Neuro: unresponsive Lines: right femoral vascath, right IJ TLC Vital Signs - 12hr 01/20/18 01/20/18 01/20/18 20:40 20:45 20:50 Temperature Pulse Rate 97 H 97 H 97 H Pulse Rate [ Anterior Bilateral Throughout] Pulse Rate [ From Monitor] Respiratory 25 H 26 H Rate Respiratory Rate [Anterior Bilateral Throughout] Blood Pressure 113/68 111/70 113/74 O2 Sat by Pulse 96 97 Oximetry O2 Sat by Pulse Oximetry [ Anterior Bilateral Throughout] 01/20/18 01/20/18 01/20/18 21:00 21:10 21:15 Temperature Pulse Rate 97 H 97 H 97 H Pulse Rate [ Anterior Bilateral Throughout] Pulse Rate [ From Monitor] Respiratory 26 H 24 Rate Respiratory Rate [Anterior Bilateral Throughout] Blood Pressure 111/73 115/72 111/73 O2 Sat by Pulse 98 97 Oximetry O2 Sat by Pulse Oximetry [ Anterior Bilateral Throughout] 01/20/18 01/20/18 01/20/18 21:20 21:30 21:40 Temperature Pulse Rate 94 H 94 H 92 H Pulse Rate [ Anterior Bilateral Throughout] Pulse Rate [ From Monitor] Respiratory 25 H 25 H 24 Rate Respiratory Rate [Anterior Bilateral Throughout] Blood Pressure 112/68 104/66 105/66 O2 Sat by Pulse 99 Oximetry O2 Sat by Pulse Oximetry [ Anterior Bilateral Throughout] 01/20/18 01/20/18 01/20/18 21:45 21:50 22:00 Temperature Pulse Rate 94 H 94 H 101 H Pulse Rate [ Anterior Bilateral Throughout] Pulse Rate [ 101 H From Monitor] Respiratory 26 H 25 H Rate Respiratory Rate [Anterior Bilateral Throughout] Blood Pressure 105/66 103/68 103/65 O2 Sat by Pulse 80 L Oximetry O2 Sat by Pulse Oximetry [ Anterior Bilateral Throughout] 01/20/18 01/20/18 01/20/18 22:05 22:10 22:15 Temperature 98.6 F Pulse Rate 94 H 91 H 93 H Pulse Rate [ Anterior Bilateral Throughout] Pulse Rate [ From Monitor] Respiratory 26 H 26 H Rate Respiratory Rate [Anterior Bilateral Throughout] Blood Pressure 103/68 101/66 103/63 O2 Sat by Pulse 99 Oximetry O2 Sat by Pulse 96 Oximetry [ Anterior Bilateral Throughout] 01/20/18 01/20/18 01/20/18 22:20 22:30 22:40 Temperature Pulse Rate 96 H 95 H 90 Pulse Rate [ Anterior Bilateral Throughout] Pulse Rate [ From Monitor] Respiratory 25 H 27 H 21 Rate Respiratory Rate [Anterior Bilateral Throughout] Blood Pressure 108/67 103/63 95/60 O2 Sat by Pulse 94 94 98 Oximetry O2 Sat by Pulse Oximetry [ Anterior Bilateral Throughout] 03/12/18 03/12/18 03/12/18 22:50 23:00 23:10 Temperature Pulse Rate 92 H 95 H 94 H Pulse Rate [ Anterior Bilateral Throughout] Pulse Rate [ From Monitor] Respiratory 24 24 24 Rate Respiratory Rate [Anterior Bilateral Throughout] Blood Pressure 96/62 78/53 82/55 O2 Sat by Pulse 97 98 100 Oximetry O2 Sat by Pulse Oximetry [ Anterior Bilateral Throughout] 01/20/18 01/20/18 01/20/18 23:20 23:24 23:30 Temperature Pulse Rate 95 H 96 H 96 H Pulse Rate [ Anterior Bilateral Throughout] Pulse Rate [ From Monitor] Respiratory 24 24 24 Rate Respiratory Rate [Anterior Bilateral Throughout] Blood Pressure 83/57 83/57 108/69 O2 Sat by Pulse 100 98 97 Oximetry O2 Sat by Pulse Oximetry [ Anterior Bilateral Throughout] 01/20/18 01/20/18 01/20/18 23:40 23:45 23:50 Temperature Pulse Rate 99 H 94 H 100 H Pulse Rate [ Anterior Bilateral Throughout] Pulse Rate [ From Monitor] Respiratory 24 25 H Rate Respiratory Rate [Anterior Bilateral Throughout] Blood Pressure 111/73 82/54 111/76 O2 Sat by Pulse 96 100 96 Oximetry O2 Sat by Pulse Oximetry [ Anterior Bilateral Throughout] 01/20/18 01/21/18 01/21/18 23:55 00:00 00:10 Temperature 100.2 F H Pulse Rate 100 H 100 H Pulse Rate [ Anterior Bilateral Throughout] Pulse Rate [ From Monitor] Respiratory 25 H 25 H Rate Respiratory Rate [Anterior Bilateral Throughout] Blood Pressure 111/74 111/74 O2 Sat by Pulse 99 97 Oximetry O2 Sat by Pulse Oximetry [ Anterior Bilateral Throughout] 01/21/18 01/21/18 01/21/18 00:20 00:30 00:40 Temperature Pulse Rate 101 H 101 H 101 H Pulse Rate [ Anterior Bilateral Throughout] Pulse Rate [ From Monitor] Respiratory 26 H 26 H 26 H Rate Respiratory Rate [Anterior Bilateral Throughout] Blood Pressure 108/71 115/72 110/74 O2 Sat by Pulse 99 97 97 Oximetry O2 Sat by Pulse Oximetry [ Anterior Bilateral Throughout] 01/21/18 01/21/18 01/21/18 00:50 01:00 01:04 Temperature Pulse Rate 101 H 96 H Pulse Rate [ 100 H Anterior Bilateral Throughout] Pulse Rate [ From Monitor] Respiratory 25 H 24 Rate Respiratory 20 Rate [Anterior Bilateral Throughout] Blood Pressure 107/70 89/59 O2 Sat by Pulse 97 95 Oximetry O2 Sat by Pulse Oximetry [ Anterior Bilateral Throughout] 01/21/18 01/21/18 01/21/18 01:10 01:19 01:20 Temperature Pulse Rate 94 H 97 H Pulse Rate [ 102 H Anterior Bilateral Throughout] Pulse Rate [ From Monitor] Respiratory 24 24 Rate Respiratory 20 Rate [Anterior Bilateral Throughout] Blood Pressure 90/60 106/71 O2 Sat by Pulse 97 98 Oximetry O2 Sat by Pulse Oximetry [ Anterior Bilateral Throughout] 01/21/18 01/21/18 01/21/18 01:30 01:40 01:50 Temperature Pulse Rate 100 H 100 H 99 H Pulse Rate [ Anterior Bilateral Throughout] Pulse Rate [ From Monitor] Respiratory 24 25 H 25 H Rate Respiratory Rate [Anterior Bilateral Throughout] Blood Pressure 112/72 106/70 111/71 O2 Sat by Pulse 96 97 96 Oximetry O2 Sat by Pulse Oximetry [ Anterior Bilateral Throughout] 01/21/18 01/21/18 01/21/18 02:00 02:10 02:20 Temperature Pulse Rate 99 H 100 H 102 H Pulse Rate [ Anterior Bilateral Throughout] Pulse Rate [ 111 H From Monitor] Respiratory 25 H 26 H 24 Rate Respiratory Rate [Anterior Bilateral Throughout] Blood Pressure 111/73 111/73 118/78 O2 Sat by Pulse 80 L 96 91 Oximetry O2 Sat by Pulse Oximetry [ Anterior Bilateral Throughout] 01/21/18 01/21/18 01/21/18 02:30 02:40 02:50 Temperature Pulse Rate 102 H 98 H 99 H Pulse Rate [ Anterior Bilateral Throughout] Pulse Rate [ From Monitor] Respiratory 27 H 26 H 27 H Rate Respiratory Rate [Anterior Bilateral Throughout] Blood Pressure 114/72 115/79 112/76 O2 Sat by Pulse 91 96 Oximetry O2 Sat by Pulse Oximetry [ Anterior Bilateral Throughout] 01/21/18 01/21/18 01/21/18 03:00 03:10 03:20 Temperature Pulse Rate 101 H 100 H 100 H Pulse Rate [ Anterior Bilateral Throughout] Pulse Rate [ From Monitor] Respiratory 26 H 28 H 26 H Rate Respiratory Rate [Anterior Bilateral Throughout] Blood Pressure 112/75 119/72 116/74 O2 Sat by Pulse Oximetry O2 Sat by Pulse Oximetry [ Anterior Bilateral Throughout] 01/21/18 01/21/18 01/21/18 03:30 03:40 03:47 Temperature 100.3 F H Pulse Rate 100 H 103 H Pulse Rate [ Anterior Bilateral Throughout] Pulse Rate [ From Monitor] Respiratory 26 H 26 H Rate Respiratory Rate [Anterior Bilateral Throughout] Blood Pressure 120/79 118/82 O2 Sat by Pulse 96 Oximetry O2 Sat by Pulse Oximetry [ Anterior Bilateral Throughout] 01/21/18 01/21/18 01/21/18 03:50 04:00 04:10 Temperature Pulse Rate 93 H 92 H 94 H Pulse Rate [ Anterior Bilateral Throughout] Pulse Rate [ From Monitor] Respiratory 25 H 21 26 H Rate Respiratory Rate [Anterior Bilateral Throughout] Blood Pressure 118/82 118/82 114/77 O2 Sat by Pulse 96 Oximetry O2 Sat by Pulse Oximetry [ Anterior Bilateral Throughout] 01/21/18 01/21/18 01/21/18 04:20 04:22 04:30 Temperature Pulse Rate 93 H 94 H 93 H Pulse Rate [ Anterior Bilateral Throughout] Pulse Rate [ From Monitor] Respiratory 26 H 26 H Rate Respiratory Rate [Anterior Bilateral Throughout] Blood Pressure 107/70 114/77 113/76 O2 Sat by Pulse 97 96 96 Oximetry O2 Sat by Pulse Oximetry [ Anterior Bilateral Throughout] 01/21/18 01/21/18 01/21/18 04:40 04:50 05:00 Temperature Pulse Rate 94 H 95 H 92 H Pulse Rate [ Anterior Bilateral Throughout] Pulse Rate [ From Monitor] Respiratory 26 H 27 H 26 H Rate Respiratory Rate [Anterior Bilateral Throughout] Blood Pressure 112/74 107/73 112/74 O2 Sat by Pulse 95 96 94 Oximetry O2 Sat by Pulse Oximetry [ Anterior Bilateral Throughout] 01/21/18 01/21/18 01/21/18 05:10 05:20 05:30 Temperature Pulse Rate 89 92 H 97 H Pulse Rate [ Anterior Bilateral Throughout] Pulse Rate [ From Monitor] Respiratory 24 26 H 30 H Rate Respiratory Rate [Anterior Bilateral Throughout] Blood Pressure 115/76 112/76 132/78 O2 Sat by Pulse 98 82 L Oximetry O2 Sat by Pulse Oximetry [ Anterior Bilateral Throughout] 01/21/18 01/21/18 01/21/18 05:40 05:50 06:00 Temperature Pulse Rate 97 H 92 H 95 H Pulse Rate [ Anterior Bilateral Throughout] Pulse Rate [ 109 H From Monitor] Respiratory 31 H 27 H 27 H Rate Respiratory Rate [Anterior Bilateral Throughout] Blood Pressure 119/81 106/76 114/67 O2 Sat by Pulse 82 L 89 88 Oximetry O2 Sat by Pulse Oximetry [ Anterior Bilateral Throughout] 01/21/18 01/21/18 01/21/18 06:10 06:20 06:30 Temperature Pulse Rate 94 H 94 H 93 H Pulse Rate [ Anterior Bilateral Throughout] Pulse Rate [ From Monitor] Respiratory 28 H 30 H 28 H Rate Respiratory Rate [Anterior Bilateral Throughout] Blood Pressure 110/75 107/76 109/72 O2 Sat by Pulse 87 87 91 Oximetry O2 Sat by Pulse Oximetry [ Anterior Bilateral Throughout] 01/21/18 01/21/18 01/21/18 06:40 06:50 07:00 Temperature Pulse Rate 93 H 92 H 91 H Pulse Rate [ Anterior Bilateral Throughout] Pulse Rate [ From Monitor] Respiratory 27 H 27 H 25 H Rate Respiratory Rate [Anterior Bilateral Throughout] Blood Pressure 108/73 110/72 111/75 O2 Sat by Pulse 92 94 95 Oximetry O2 Sat by Pulse Oximetry [ Anterior Bilateral Throughout] 01/21/18 01/21/18 01/21/18 07:10 07:20 07:30 Temperature Pulse Rate 93 H 92 H 93 H Pulse Rate [ Anterior Bilateral Throughout] Pulse Rate [ From Monitor] Respiratory 27 H 26 H 26 H Rate Respiratory Rate [Anterior Bilateral Throughout] Blood Pressure 114/77 115/77 121/73 O2 Sat by Pulse 95 95 94 Oximetry O2 Sat by Pulse Oximetry [ Anterior Bilateral Throughout] 01/21/18 01/21/18 01/21/18 07:40 07:50 08:00 Temperature Pulse Rate 93 H 93 H 94 H Pulse Rate [ Anterior Bilateral Throughout] Pulse Rate [ 94 H From Monitor] Respiratory 26 H 25 H 26 H Rate Respiratory Rate [Anterior Bilateral Throughout] Blood Pressure 115/77 113/78 122/78 O2 Sat by Pulse 94 95 97 Oximetry O2 Sat by Pulse Oximetry [ Anterior Bilateral Throughout] 01/21/18 01/21/18 08:01 08:10 Temperature Pulse Rate 95 H 95 H Pulse Rate [ Anterior Bilateral Throughout] Pulse Rate [ From Monitor] Respiratory 27 H Rate Respiratory Rate [Anterior Bilateral Throughout] Blood Pressure 122/78 122/79 O2 Sat by Pulse 94 95 Oximetry O2 Sat by Pulse Oximetry [ Anterior Bilateral Throughout] CBC and BMP: 01/21/18 05:00 01/21/18 05:00 ABG, PT/INR, D-dimer: ABG POC ABG pH 7.411 (7.35-7.45) 01/21/18 04:27 POC ABG pCO2 33.8 (35-45) L 01/21/18 04:27 POC ABG pO2 72 (80-105) L 01/21/18 04:27 POC ABG HCO3 21.5 01/21/18 04:27 POC ABG Total CO2 22 01/21/18 04:27 POC ABG O2 Sat 95 01/21/18 04:27 PT/INR, D-dimer PT 17.5 Sec. (12.2-14.9) H 01/20/18 07:00 INR 1.35 (0.87-1.13) H 01/20/18 07:00 Abnormal lab findings: Abnormal Labs 01/17/18 01/17/18 01/17/18 15:25 16:15 16:48 WBC MCH Plt Count Seg Neuts % (Manual) Lymphocytes % (Manual) Monocytes % (Manual) Nucleated RBC % Seg Neutrophils # Man Lymphocytes # (Manual) Monocytes # (Manual) PT INR POC ABG pH 7.099 L POC ABG pCO2 58.9 H POC ABG pO2 149 H VBG pH Sodium Chloride Carbon Dioxide BUN Creatinine Glucose POC Glucose < 40 L 121 H Hemoglobin A1c Lactic Acid Calcium Total Bilirubin AST ALT Alkaline Phosphatase C-Reactive Protein Total Protein Albumin 01/17/18 01/17/18 01/17/18 16:54 16:54 16:54 WBC MCH Plt Count Seg Neuts % (Manual) 72.0 H Lymphocytes % (Manual) 3.0 L Monocytes % (Manual) Nucleated RBC % Seg Neutrophils # Man Lymphocytes # (Manual) 0.2 L Monocytes # (Manual) PT 18.5 H INR 1.45 H POC ABG pH POC ABG pCO2 POC ABG pO2 VBG pH Sodium 136 L Chloride 97.8 L Carbon Dioxide 16 L BUN 43 H Creatinine 3.3 H Glucose 121 H POC Glucose Hemoglobin A1c Lactic Acid Calcium 6.7 L Total Bilirubin AST ALT Alkaline Phosphatase C-Reactive Protein Total Protein 4.4 L Albumin 2.3 L 01/17/18 01/17/18 01/17/18 16:54 16:54 17:11 WBC MCH Plt Count Seg Neuts % (Manual) Lymphocytes % (Manual) Monocytes % (Manual) Nucleated RBC % Seg Neutrophils # Man Lymphocytes # (Manual) Monocytes # (Manual) PT INR POC ABG pH POC ABG pCO2 POC ABG pO2 VBG pH 7.273 L Sodium Chloride Carbon Dioxide BUN Creatinine Glucose POC Glucose Hemoglobin A1c Lactic Acid 4.70 H* 4.30 H* Calcium Total Bilirubin AST ALT Alkaline Phosphatase C-Reactive Protein Total Protein Albumin 01/17/18 01/17/18 01/17/18 18:02 18:15 19:21 WBC MCH Plt Count Seg Neuts % (Manual) Lymphocytes % (Manual) Monocytes % (Manual) Nucleated RBC % Seg Neutrophils # Man Lymphocytes # (Manual) Monocytes # (Manual) PT INR POC ABG pH 7.177 L POC ABG pCO2 POC ABG pO2 VBG pH Sodium Chloride Carbon Dioxide BUN Creatinine Glucose POC Glucose < 40 L Hemoglobin A1c Lactic Acid 3.00 H* Calcium Total Bilirubin AST ALT Alkaline Phosphatase C-Reactive Protein Total Protein Albumin 01/17/18 01/17/18 01/17/18 22:36 22:36 23:16 WBC MCH Plt Count Seg Neuts % (Manual) Lymphocytes % (Manual) Monocytes % (Manual) Nucleated RBC % Seg Neutrophils # Man Lymphocytes # (Manual) Monocytes # (Manual) PT INR POC ABG pH 7.112 L POC ABG pCO2 50.1 H POC ABG pO2 50 L VBG pH Sodium Chloride Carbon Dioxide BUN Creatinine Glucose POC Glucose Hemoglobin A1c 9.0 H Lactic Acid 5.50 H* Calcium Total Bilirubin AST ALT Alkaline Phosphatase C-Reactive Protein Total Protein Albumin 01/18/18 01/18/18 01/18/18 01:26 03:21 03:21 WBC MCH Plt Count Seg Neuts % (Manual) 27.0 L Lymphocytes % (Manual) 3.0 L Monocytes % (Manual) 14.0 H Nucleated RBC % Seg Neutrophils # Man Lymphocytes # (Manual) 0.3 L Monocytes # (Manual) 1.4 H PT INR POC ABG pH POC ABG pCO2 POC ABG pO2 VBG pH Sodium Chloride Carbon Dioxide BUN Creatinine Glucose POC Glucose 107 H Hemoglobin A1c Lactic Acid 8.00 H* Calcium Total Bilirubin AST ALT Alkaline Phosphatase C-Reactive Protein Total Protein Albumin 01/18/18 01/18/18 01/18/18 03:21 04:40 05:07 WBC MCH Plt Count Seg Neuts % (Manual) Lymphocytes % (Manual) Monocytes % (Manual) Nucleated RBC % Seg Neutrophils # Man Lymphocytes # (Manual) Monocytes # (Manual) PT INR POC ABG pH 7.093 L POC ABG pCO2 31.5 L POC ABG pO2 77 L VBG pH Sodium Chloride 96.9 L Carbon Dioxide 14 L BUN 47 H Creatinine 3.4 H Glucose POC Glucose Hemoglobin A1c Lactic Acid 11.10 H* Calcium 6.4 L Total Bilirubin AST 47 H ALT Alkaline Phosphatase C-Reactive Protein Total Protein 4.3 L Albumin 2.4 L 01/18/18 01/18/18 01/18/18 06:29 07:06 11:44 WBC MCH Plt Count Seg Neuts % (Manual) Lymphocytes % (Manual) Monocytes % (Manual) Nucleated RBC % Seg Neutrophils # Man Lymphocytes # (Manual) Monocytes # (Manual) PT INR POC ABG pH POC ABG pCO2 POC ABG pO2 VBG pH Sodium Chloride Carbon Dioxide BUN Creatinine Glucose POC Glucose 47 L 149 H < 40 L Hemoglobin A1c Lactic Acid Calcium Total Bilirubin AST ALT Alkaline Phosphatase C-Reactive Protein Total Protein Albumin 01/18/18 01/18/18 01/18/18 11:46 14:15 18:01 WBC MCH Plt Count Seg Neuts % (Manual) Lymphocytes % (Manual) Monocytes % (Manual) Nucleated RBC % Seg Neutrophils # Man Lymphocytes # (Manual) Monocytes # (Manual) PT INR POC ABG pH POC ABG pCO2 POC ABG pO2 VBG pH Sodium Chloride Carbon Dioxide BUN Creatinine Glucose POC Glucose 116 H < 40 L Hemoglobin A1c Lactic Acid 10.00 H* Calcium Total Bilirubin AST ALT Alkaline Phosphatase C-Reactive Protein Total Protein Albumin 01/18/18 01/18/18 01/18/18 18:02 23:25 23:27 WBC MCH Plt Count Seg Neuts % (Manual) Lymphocytes % (Manual) Monocytes % (Manual) Nucleated RBC % Seg Neutrophils # Man Lymphocytes # (Manual) Monocytes # (Manual) PT INR POC ABG pH POC ABG pCO2 POC ABG pO2 VBG pH Sodium Chloride Carbon Dioxide BUN Creatinine Glucose POC Glucose 136 H < 40 L < 40 L Hemoglobin A1c Lactic Acid Calcium Total Bilirubin AST ALT Alkaline Phosphatase C-Reactive Protein Total Protein Albumin 01/19/18 01/19/18 01/19/18 04:02 06:50 06:50 WBC 18.5 H MCH Plt Count 136 L Seg Neuts % (Manual) 86.0 H Lymphocytes % (Manual) 4.0 L Monocytes % (Manual) Nucleated RBC % Seg Neutrophils # Man 15.9 H Lymphocytes # (Manual) 0.7 L Monocytes # (Manual) 1.1 H PT 21.3 H INR 1.73 H POC ABG pH POC ABG pCO2 28.3 L POC ABG pO2 57 L VBG pH Sodium Chloride Carbon Dioxide BUN Creatinine Glucose POC Glucose Hemoglobin A1c Lactic Acid Calcium Total Bilirubin AST ALT Alkaline Phosphatase C-Reactive Protein Total Protein Albumin 01/19/18 01/19/18 01/19/18 06:50 08:45 11:17 WBC MCH Plt Count Seg Neuts % (Manual) Lymphocytes % (Manual) Monocytes % (Manual) Nucleated RBC % Seg Neutrophils # Man Lymphocytes # (Manual) Monocytes # (Manual) PT INR POC ABG pH POC ABG pCO2 POC ABG pO2 VBG pH Sodium 135 L Chloride 92.8 L Carbon Dioxide 19 L BUN 31 H Creatinine 2.6 H Glucose POC Glucose 110 H Hemoglobin A1c Lactic Acid 7.90 H* Calcium 7.1 L Total Bilirubin 1.60 H AST 2526 H ALT 1187 H Alkaline Phosphatase 133 H C-Reactive Protein Total Protein 4.8 L Albumin 2.0 L 01/19/18 01/19/18 01/19/18 11:31 22:12 23:34 WBC MCH Plt Count Seg Neuts % (Manual) Lymphocytes % (Manual) Monocytes % (Manual) Nucleated RBC % Seg Neutrophils # Man Lymphocytes # (Manual) Monocytes # (Manual) PT INR POC ABG pH POC ABG pCO2 31.6 L POC ABG pO2 59 L VBG pH Sodium Chloride Carbon Dioxide BUN Creatinine Glucose POC Glucose 131 H 53 L Hemoglobin A1c Lactic Acid Calcium Total Bilirubin AST ALT Alkaline Phosphatase C-Reactive Protein Total Protein Albumin 01/20/18 01/20/18 01/20/18 05:18 05:18 05:19 WBC 19.7 H MCH 27 L Plt Count 84 L Seg Neuts % (Manual) 84.0 H Lymphocytes % (Manual) 2.0 L Monocytes % (Manual) 8.0 H Nucleated RBC % Seg Neutrophils # Man 16.5 H Lymphocytes # (Manual) 0.4 L Monocytes # (Manual) 1.6 H PT INR POC ABG pH POC ABG pCO2 POC ABG pO2 VBG pH Sodium 136 L Chloride 96.9 L Carbon Dioxide 17 L BUN 65 H Creatinine 4.1 H D Glucose 104 H POC Glucose 125 H Hemoglobin A1c Lactic Acid Calcium 7.1 L Total Bilirubin 1.60 H AST 1702 H ALT 1141 H Alkaline Phosphatase 172 H C-Reactive Protein Total Protein 5.0 L Albumin 1.7 L 01/20/18 01/20/18 01/20/18 07:00 11:48 13:54 WBC MCH Plt Count Seg Neuts % (Manual) Lymphocytes % (Manual) Monocytes % (Manual) Nucleated RBC % Seg Neutrophils # Man Lymphocytes # (Manual) Monocytes # (Manual) PT 17.5 H INR 1.35 H POC ABG pH POC ABG pCO2 POC ABG pO2 VBG pH Sodium Chloride Carbon Dioxide BUN Creatinine Glucose POC Glucose 109 H Hemoglobin A1c Lactic Acid Calcium Total Bilirubin AST ALT Alkaline Phosphatase C-Reactive Protein 37.50 H Total Protein Albumin 01/20/18 01/20/18 01/20/18 17:28 17:51 20:50 WBC MCH Plt Count Seg Neuts % (Manual) Lymphocytes % (Manual) Monocytes % (Manual) Nucleated RBC % Seg Neutrophils # Man Lymphocytes # (Manual) Monocytes # (Manual) PT INR POC ABG pH POC ABG pCO2 POC ABG pO2 VBG pH Sodium Chloride Carbon Dioxide BUN Creatinine Glucose POC Glucose 140 H Hemoglobin A1c Lactic Acid 2.70 H* 2.30 H* Calcium Total Bilirubin AST ALT Alkaline Phosphatase C-Reactive Protein Total Protein Albumin 01/20/18 01/20/18 01/21/18 23:55 Unknown 00:12 WBC MCH Plt Count Seg Neuts % (Manual) Lymphocytes % (Manual) Monocytes % (Manual) Nucleated RBC % Seg Neutrophils # Man Lymphocytes # (Manual) Monocytes # (Manual) PT INR POC ABG pH POC ABG pCO2 POC ABG pO2 VBG pH Sodium Chloride Carbon Dioxide BUN Creatinine Glucose POC Glucose 149 H 134 H Hemoglobin A1c Lactic Acid 2.50 H* Calcium Total Bilirubin AST ALT Alkaline Phosphatase C-Reactive Protein Total Protein Albumin 01/21/18 01/21/18 01/21/18 04:27 05:00 05:00 WBC 21.7 H MCH 27 L Plt Count 67 L Seg Neuts % (Manual) 71.0 H Lymphocytes % (Manual) 9.0 L Monocytes % (Manual) Nucleated RBC % 4.0 H Seg Neutrophils # Man 15.4 H Lymphocytes # (Manual) Monocytes # (Manual) PT INR POC ABG pH POC ABG pCO2 33.8 L POC ABG pO2 72 L VBG pH Sodium Chloride Carbon Dioxide 21 L BUN 71 H Creatinine 4.1 H Glucose 149 H POC Glucose Hemoglobin A1c Lactic Acid Calcium 7.5 L Total Bilirubin AST 494 H ALT 780 H Alkaline Phosphatase 151 H C-Reactive Protein Total Protein 4.9 L Albumin 1.9 L 01/21/18 01/21/18 05:00 05:18 WBC MCH Plt Count Seg Neuts % (Manual) Lymphocytes % (Manual) Monocytes % (Manual) Nucleated RBC % Seg Neutrophils # Man Lymphocytes # (Manual) Monocytes # (Manual) PT INR POC ABG pH POC ABG pCO2 POC ABG pO2 VBG pH Sodium Chloride Carbon Dioxide BUN Creatinine Glucose POC Glucose 132 H Hemoglobin A1c Lactic Acid 2.10 H* Calcium Total Bilirubin AST ALT Alkaline Phosphatase C-Reactive Protein Total Protein Albumin
--- NOTE | 2018-01-21 08:59 | Progress Note ---
Subjective Principal diagnosis: Acute hypoxic respiratory failure, severe sepsis with shock , encephalopathy Interval history: Patient was seen today for follow-up on multiple renal related issues patient remains on the ventilator critically ill,patient is unresponsive she received her hemodialysis treatment yesterday She does not follow any purposeful command Currently being followed by infectious disease as well as multiple other disciplines Acidosis appears to be better Vitals labs intake output medications were reviewed Social history: Reviewed Allergies: Reviewed Family history: Reviewed Physical examination HEENT: Oral mucosa moist no pallor or icterus, orally intubated Neck: Supple no JVD Chest: bilateral basilar crackles coarse breath sounds CVS: Regular rate and rhythm S1 and S2 heard Abdomen: Soft nontender no suprapubic masses no organomegaly appreciable Extremity: Dry skin less than 1+ peripheral edema Musculoskeletal: No joint effusion noted in knees and ankle Neurological: encephalopathicDermatology: No petechial rashes Psychiatry: No evidence of any agitation and aggression noted Assessment and plan Acute kidney injury: llikely due to acute tubular necrosis given the clinical scenario patient is currently dialysis dependent and will continue to dialyze as tolerated History of cocaine abuse, history of methamphetamine abuse, discussed and confirmed with daughter who is aware of patient's very poor prognosis, high mortality risk that has been clearly explained to her during this admission I would like to dialyze her today as long as she is stable Encephalopathy: Multivitamin at this time that includes respiratory failure, drug abuse, rule out other causes Lactic acidosis: Slowly improving to monitor and follow Hepatic failure, part of the clinical picture mostly resulting from ischemic injury/ shock liver in my opinion Overall prognosis is extremely poor patient is high risk mortality risk very high in my opinion Discussed with hospital medicine team We'll continue to follow and make recommendation from renal standpoint Objective - Vital Signs Vital signs: Vital Signs - 12hr 01/20/18 01/20/18 01/20/18 21:00 21:10 21:15 Temperature Pulse Rate 97 H 97 H 97 H Pulse Rate [ Anterior Bilateral Throughout] Pulse Rate [ From Monitor] Respiratory 26 H 24 Rate Respiratory Rate [Anterior Bilateral Throughout] Blood Pressure 111/73 115/72 111/73 O2 Sat by Pulse 98 97 Oximetry O2 Sat by Pulse Oximetry [ Anterior Bilateral Throughout] 01/20/18 01/20/18 01/20/18 21:20 21:30 21:40 Temperature Pulse Rate 94 H 94 H 92 H Pulse Rate [ Anterior Bilateral Throughout] Pulse Rate [ From Monitor] Respiratory 25 H 25 H 24 Rate Respiratory Rate [Anterior Bilateral Throughout] Blood Pressure 112/68 104/66 105/66 O2 Sat by Pulse 99 Oximetry O2 Sat by Pulse Oximetry [ Anterior Bilateral Throughout] 01/20/18 01/20/18 01/20/18 21:45 21:50 22:00 Temperature Pulse Rate 94 H 94 H 101 H Pulse Rate [ Anterior Bilateral Throughout] Pulse Rate [ 101 H From Monitor] Respiratory 26 H 25 H Rate Respiratory Rate [Anterior Bilateral Throughout] Blood Pressure 105/66 103/68 103/65 O2 Sat by Pulse 80 L Oximetry O2 Sat by Pulse Oximetry [ Anterior Bilateral Throughout] 01/20/18 01/20/18 01/20/18 22:05 22:10 22:15 Temperature 98.6 F Pulse Rate 94 H 91 H 93 H Pulse Rate [ Anterior Bilateral Throughout] Pulse Rate [ From Monitor] Respiratory 26 H 26 H Rate Respiratory Rate [Anterior Bilateral Throughout] Blood Pressure 103/68 101/66 103/63 O2 Sat by Pulse 99 Oximetry O2 Sat by Pulse 96 Oximetry [ Anterior Bilateral Throughout] 01/20/18 01/20/18 01/20/18 22:20 22:30 22:40 Temperature Pulse Rate 96 H 95 H 90 Pulse Rate [ Anterior Bilateral Throughout] Pulse Rate [ From Monitor] Respiratory 25 H 27 H 21 Rate Respiratory Rate [Anterior Bilateral Throughout] Blood Pressure 108/67 103/63 95/60 O2 Sat by Pulse 94 94 98 Oximetry O2 Sat by Pulse Oximetry [ Anterior Bilateral Throughout] 01/20/18 01/20/18 01/20/18 22:50 23:00 23:10 Temperature Pulse Rate 92 H 95 H 94 H Pulse Rate [ Anterior Bilateral Throughout] Pulse Rate [ From Monitor] Respiratory 24 24 24 Rate Respiratory Rate [Anterior Bilateral Throughout] Blood Pressure 96/62 78/53 82/55 O2 Sat by Pulse 97 98 100 Oximetry O2 Sat by Pulse Oximetry [ Anterior Bilateral Throughout] 01/20/18 01/20/18 01/20/18 23:20 23:24 23:30 Temperature Pulse Rate 95 H 96 H 96 H Pulse Rate [ Anterior Bilateral Throughout] Pulse Rate [ From Monitor] Respiratory 24 24 24 Rate Respiratory Rate [Anterior Bilateral Throughout] Blood Pressure 83/57 83/57 108/69 O2 Sat by Pulse 100 98 97 Oximetry O2 Sat by Pulse Oximetry [ Anterior Bilateral Throughout] 01/20/18 01/20/18 01/20/18 23:40 23:45 23:50 Temperature Pulse Rate 99 H 94 H 100 H Pulse Rate [ Anterior Bilateral Throughout] Pulse Rate [ From Monitor] Respiratory 24 25 H Rate Respiratory Rate [Anterior Bilateral Throughout] Blood Pressure 111/73 82/54 111/76 O2 Sat by Pulse 96 100 96 Oximetry O2 Sat by Pulse Oximetry [ Anterior Bilateral Throughout] 01/20/18 01/21/18 01/21/18 23:55 00:00 00:10 Temperature 100.2 F H Pulse Rate 100 H 100 H Pulse Rate [ Anterior Bilateral Throughout] Pulse Rate [ From Monitor] Respiratory 25 H 25 H Rate Respiratory Rate [Anterior Bilateral Throughout] Blood Pressure 111/74 111/74 O2 Sat by Pulse 99 97 Oximetry O2 Sat by Pulse Oximetry [ Anterior Bilateral Throughout] 01/21/18 01/21/18 01/21/18 00:20 00:30 00:40 Temperature Pulse Rate 101 H 101 H 101 H Pulse Rate [ Anterior Bilateral Throughout] Pulse Rate [ From Monitor] Respiratory 26 H 26 H 26 H Rate Respiratory Rate [Anterior Bilateral Throughout] Blood Pressure 108/71 115/72 110/74 O2 Sat by Pulse 99 97 97 Oximetry O2 Sat by Pulse Oximetry [ Anterior Bilateral Throughout] 01/21/18 01/21/18 01/21/18 00:50 01:00 01:04 Temperature Pulse Rate 101 H 96 H Pulse Rate [ 100 H Anterior Bilateral Throughout] Pulse Rate [ From Monitor] Respiratory 25 H 24 Rate Respiratory 20 Rate [Anterior Bilateral Throughout] Blood Pressure 107/70 89/59 O2 Sat by Pulse 97 95 Oximetry O2 Sat by Pulse Oximetry [ Anterior Bilateral Throughout] 01/21/18 01/21/18 01/21/18 01:10 01:19 01:20 Temperature Pulse Rate 94 H 97 H Pulse Rate [ 102 H Anterior Bilateral Throughout] Pulse Rate [ From Monitor] Respiratory 24 24 Rate Respiratory 20 Rate [Anterior Bilateral Throughout] Blood Pressure 90/60 106/71 O2 Sat by Pulse 97 98 Oximetry O2 Sat by Pulse Oximetry [ Anterior Bilateral Throughout] 01/21/18 01/21/18 01/21/18 01:30 01:40 01:50 Temperature Pulse Rate 100 H 100 H 99 H Pulse Rate [ Anterior Bilateral Throughout] Pulse Rate [ From Monitor] Respiratory 24 25 H 25 H Rate Respiratory Rate [Anterior Bilateral Throughout] Blood Pressure 112/72 106/70 111/71 O2 Sat by Pulse 96 97 96 Oximetry O2 Sat by Pulse Oximetry [ Anterior Bilateral Throughout] 01/21/18 01/21/18 01/21/18 02:00 02:10 02:20 Temperature Pulse Rate 99 H 100 H 102 H Pulse Rate [ Anterior Bilateral Throughout] Pulse Rate [ 111 H From Monitor] Respiratory 25 H 26 H 24 Rate Respiratory Rate [Anterior Bilateral Throughout] Blood Pressure 111/73 111/73 118/78 O2 Sat by Pulse 80 L 96 91 Oximetry O2 Sat by Pulse Oximetry [ Anterior Bilateral Throughout] 01/21/18 01/21/18 01/21/18 02:30 02:40 02:50 Temperature Pulse Rate 102 H 98 H 99 H Pulse Rate [ Anterior Bilateral Throughout] Pulse Rate [ From Monitor] Respiratory 27 H 26 H 27 H Rate Respiratory Rate [Anterior Bilateral Throughout] Blood Pressure 114/72 115/79 112/76 O2 Sat by Pulse 91 96 Oximetry O2 Sat by Pulse Oximetry [ Anterior Bilateral Throughout] 01/21/18 01/21/18 01/21/18 03:00 03:10 03:20 Temperature Pulse Rate 101 H 100 H 100 H Pulse Rate [ Anterior Bilateral Throughout] Pulse Rate [ From Monitor] Respiratory 26 H 28 H 26 H Rate Respiratory Rate [Anterior Bilateral Throughout] Blood Pressure 112/75 119/72 116/74 O2 Sat by Pulse Oximetry O2 Sat by Pulse Oximetry [ Anterior Bilateral Throughout] 01/21/18 01/21/18 01/21/18 03:30 03:40 03:47 Temperature 100.3 F H Pulse Rate 100 H 103 H Pulse Rate [ Anterior Bilateral Throughout] Pulse Rate [ From Monitor] Respiratory 26 H 26 H Rate Respiratory Rate [Anterior Bilateral Throughout] Blood Pressure 120/79 118/82 O2 Sat by Pulse 96 Oximetry O2 Sat by Pulse Oximetry [ Anterior Bilateral Throughout] 01/21/18 01/21/18 01/21/18 03:50 04:00 04:10 Temperature Pulse Rate 93 H 92 H 94 H Pulse Rate [ Anterior Bilateral Throughout] Pulse Rate [ From Monitor] Respiratory 25 H 21 26 H Rate Respiratory Rate [Anterior Bilateral Throughout] Blood Pressure 118/82 118/82 114/77 O2 Sat by Pulse 96 Oximetry O2 Sat by Pulse Oximetry [ Anterior Bilateral Throughout] 01/21/18 01/21/18 01/21/18 04:20 04:22 04:30 Temperature Pulse Rate 93 H 94 H 93 H Pulse Rate [ Anterior Bilateral Throughout] Pulse Rate [ From Monitor] Respiratory 26 H 26 H Rate Respiratory Rate [Anterior Bilateral Throughout] Blood Pressure 107/70 114/77 113/76 O2 Sat by Pulse 97 96 96 Oximetry O2 Sat by Pulse Oximetry [ Anterior Bilateral Throughout] 01/21/18 01/21/18 01/21/18 04:40 04:50 05:00 Temperature Pulse Rate 94 H 95 H 92 H Pulse Rate [ Anterior Bilateral Throughout] Pulse Rate [ From Monitor] Respiratory 26 H 27 H 26 H Rate Respiratory Rate [Anterior Bilateral Throughout] Blood Pressure 112/74 107/73 112/74 O2 Sat by Pulse 95 96 94 Oximetry O2 Sat by Pulse Oximetry [ Anterior Bilateral Throughout] 01/21/18 01/21/18 01/21/18 05:10 05:20 05:30 Temperature Pulse Rate 89 92 H 97 H Pulse Rate [ Anterior Bilateral Throughout] Pulse Rate [ From Monitor] Respiratory 24 26 H 30 H Rate Respiratory Rate [Anterior Bilateral Throughout] Blood Pressure 115/76 112/76 132/78 O2 Sat by Pulse 98 82 L Oximetry O2 Sat by Pulse Oximetry [ Anterior Bilateral Throughout] 01/21/18 01/21/18 01/21/18 05:40 05:50 06:00 Temperature Pulse Rate 97 H 92 H 95 H Pulse Rate [ Anterior Bilateral Throughout] Pulse Rate [ 109 H From Monitor] Respiratory 31 H 27 H 27 H Rate Respiratory Rate [Anterior Bilateral Throughout] Blood Pressure 119/81 106/76 114/67 O2 Sat by Pulse 82 L 89 88 Oximetry O2 Sat by Pulse Oximetry [ Anterior Bilateral Throughout] 01/21/18 01/21/18 01/21/18 06:10 06:20 06:30 Temperature Pulse Rate 94 H 94 H 93 H Pulse Rate [ Anterior Bilateral Throughout] Pulse Rate [ From Monitor] Respiratory 28 H 30 H 28 H Rate Respiratory Rate [Anterior Bilateral Throughout] Blood Pressure 110/75 107/76 109/72 O2 Sat by Pulse 87 87 91 Oximetry O2 Sat by Pulse Oximetry [ Anterior Bilateral Throughout] 01/21/18 01/21/18 01/21/18 06:40 06:50 07:00 Temperature Pulse Rate 93 H 92 H 91 H Pulse Rate [ Anterior Bilateral Throughout] Pulse Rate [ From Monitor] Respiratory 27 H 27 H 25 H Rate Respiratory Rate [Anterior Bilateral Throughout] Blood Pressure 108/73 110/72 111/75 O2 Sat by Pulse 92 94 95 Oximetry O2 Sat by Pulse Oximetry [ Anterior Bilateral Throughout] 01/21/18 01/21/18 01/21/18 07:10 07:20 07:30 Temperature Pulse Rate 93 H 92 H 93 H Pulse Rate [ Anterior Bilateral Throughout] Pulse Rate [ From Monitor] Respiratory 27 H 26 H 26 H Rate Respiratory Rate [Anterior Bilateral Throughout] Blood Pressure 114/77 115/77 121/73 O2 Sat by Pulse 95 95 94 Oximetry O2 Sat by Pulse Oximetry [ Anterior Bilateral Throughout] 01/21/18 01/21/18 01/21/18 07:40 07:50 08:00 Temperature Pulse Rate 93 H 93 H 94 H Pulse Rate [ Anterior Bilateral Throughout] Pulse Rate [ 94 H From Monitor] Respiratory 26 H 25 H 26 H Rate Respiratory Rate [Anterior Bilateral Throughout] Blood Pressure 115/77 113/78 122/78 O2 Sat by Pulse 94 95 97 Oximetry O2 Sat by Pulse Oximetry [ Anterior Bilateral Throughout] 01/21/18 01/21/18 01/21/18 08:01 08:10 08:50 Temperature Pulse Rate 95 H 95 H Pulse Rate [ 97 H Anterior Bilateral Throughout] Pulse Rate [ From Monitor] Respiratory 27 H Rate Respiratory 24 Rate [Anterior Bilateral Throughout] Blood Pressure 122/78 122/79 O2 Sat by Pulse 94 95 Oximetry O2 Sat by Pulse Oximetry [ Anterior Bilateral Throughout] - Lab 01/21/18 05:00 01/21/18 05:00 Most recent lab results Calcium 7.5 mg/dL (8.4-10.2) L 01/21/18 05:00
[2018-01-21] MEDS: PEPCID IV SCH (09:25)
[2018-01-21] MEDS: ZOSYN/NS 2.25 GM/50ML 2.25 GM/50 ML BAG IV SCH ×2 (09:25→20:38)
[2018-01-21] MEDS: ELIQUIS FEEDTUBE SCH ×2 (09:25→21:04)
[2018-01-21] MEDS: SODIUM CHLORIDE FLUSH SYRINGE 10 ML IV SCH (09:26)
[2018-01-21] MEDS ORDERED: VANCOMYCIN/0.45 NS 1 GM/250 ML 1 GM/250 ML BAG IV SCH (10:00)
--- NOTE | 2018-01-21 10:55 | Progress Note ---
Assessment and Plan Assessment and plan: 62-year-old admitted with hx of htn, polysubstance drug abuse per family, admitted after she was found unresponsive found in the bathroom pf a friends home, noted with severe lactic acidosis, hypotensive on vasopressors, hypercapeniac respiratory failure requiring intubation . //Acute hypercapenic respiratory failure - Likely from drug abuse and aspiration - VAP bundle -on vent support //Large Left Pleural Effusion - Will discuss with Pulmonary about Thoracentesis //Severe Sepsis with septic shock likely from aspiration pneumonia-POA -Recurrent fever possible due to the infection vs Central - Left lobar infiltrate on admission - We'll continue broad-spectrum antibiotic for now - negative blood culture, sputum cx pending //Shock required pressors - likely from sepsis vs cardiogenic - Continue IV antibiotics - off pressors today. required 3 pressors on admission //Decompensated acute CHF - EF 30-35% on ed echo - will consult cardiology - cautious use of iv fluid //Febrile illness, repeat cx, cont abx, consult ID ?pelvic mass, will get LOCUM TENENS eval and Pelvic ultrasound //JANESSA likely due to tumor necrosis from severe sepsis - monitor renal function, now on HD - Avoid nephrotoxins, nephrology consulted //History of cocaine abuse, UDS pending //Acute encephalopathy - Multifactorial, likely from drug abuse vs severe sepsis versus anoxic encephalopathy - CT head no acute finding - pt is off sedation since DAY prior to yesterday -Pacemaker precludes getting MRI brain -May obtain neurology if no clinical improvement //Lactic acidosis - Likely from severe sepsis and along with decline in renal function - placed on bicarbonate drip inittially, now on HD // Elevated LFTs- shock liver syndrome - Likely from severe hypotension causing shock liver - Continue to monitor // Coagulopathy, due to severe sepsis and abnormal liver function // Bilateral finger Ischemic Changes possible secondary to pressors but potentiated by hx of from drug abuse, will get vascular consult // FEN - start on TF, D5Ns @ 42ml/h Disposition: Continue ICU monitoring, very poor prognosis. Discussed management and prognosis in detail with the daughter, also discussed with lacquer sprayer and ID The high probability of a clinically significant, sudden or life threatening deterioration of the [multiorgan] system(s) required my full and direct attention, intervention and personal management. The aggregate critical care time was [35] minutes. This time is in addition to time spent performing reported procedures but includes the following: [x] Data Review and interpretation [x] Patient assessment and monitoring of vital signs [x] Documentation [x] Medication orders and management History Interval history: Patient seen and examined, remains on mechanical ventilation, unreponsive despite being off sedation. Daughter at bedside Hospitalist Physical - Physical exam Narrative exam: GENERAL: Elderly WF lying on bed intubated and unresponsive HEENT: Normocephalic. Atraumatic. No conjunctival congestion or icterus. Patient has dry mucous membranes. NECK: Supple. Trachea midline. ET tube in place CHEST/LUNGS: Clear to auscultated bilaterally, breathing under vent. Positive for a few wheezes, crackles or rhonchi. HEART/CARDIOVASCULAR: tachycardic. S1 and S2 positive. ABDOMEN: Abdomen is soft, nontender. Patient has normal bowel sounds. SKIN: There is no rash. Warm and dry. NEURO: Sedated, does not follow any command MUSCULOSKELETAL: No joint effusion EXTRIMITY: No edema, cyanosis of the toes and fingers possible ischmeia, fingers much worse PSYCH: Unable to assess - Constitutional Vitals: Temp Pulse Resp BP Pulse Ox 100.3 F H 95 H 27 H 130/87 100 01/21/18 03:47 01/21/18 10:40 01/21/18 10:40 01/21/18 10:40 01/21/18 10:40 Results - Labs CBC & Chem 7: 01/22/18 04:10 01/22/18 04:10 Labs: Laboratory Last Values WBC 21.7 K/mm3 (4.5-11.0) H 01/21/18 05:00 RBC 4.00 M/mm3 (3.65-5.03) 01/21/18 05:00 Hgb 10.9 gm/dl (10.1-14.3) 01/21/18 05:00 Hct 33.4 % (30.3-42.9) 01/21/18 05:00 MCV 84 fl (79-97) 01/21/18 05:00 MCH 27 pg (28-32) L 01/21/18 05:00 MCHC 33 % (30-34) 01/21/18 05:00 RDW 14.6 % (13.2-15.2) 01/21/18 05:00 Plt Count 67 K/mm3 (140-440) L 01/21/18 05:00 Lymph % (Auto) [employer] 01/17/18 16:54 Gates % (Auto) [employer] 01/17/18 16:54 Eos % (Auto) [employer] 01/17/18 16:54 Baso % (Auto) [employer] 01/17/18 16:54 Lymph # [employer] 01/17/18 16:54 Gates # [employer] 01/17/18 16:54 Eos # [employer] 01/17/18 16:54 Baso # [employer] 01/17/18 16:54 Add Manual Diff Complete 01/21/18 05:00 Total Counted 100 01/21/18 05:00 Seg Neutrophils % [employer] 01/21/18 05:00 Seg Neuts % (Manual) 71.0 % (40.0-70.0) H 01/21/18 05:00 Band Neutrophils % 18.0 % 01/21/18 05:00 Lymphocytes % (Manual) 9.0 % (13.4-35.0) L 01/21/18 05:00 Reactive Lymphs % (Man) 0 % 01/21/18 05:00 Monocytes % (Manual) 2.0 % (0.0-7.3) 01/21/18 05:00 Eosinophils % (Manual) 0 % (0.0-4.3) 01/21/18 05:00 Basophils % (Manual) 0 % (0.0-1.8) 01/21/18 05:00 Metamyelocytes % 0 % 01/21/18 05:00 Myelocytes % 0 % 01/21/18 05:00 Promyelocytes % 0 % 01/21/18 05:00 Blast Cells % 0 % 01/21/18 05:00 Nucleated RBC % 4.0 % (0.0-0.9) H 01/21/18 05:00 Seg Neutrophils # [employer] 01/17/18 16:54 Seg Neutrophils # Man 15.4 K/mm3 (1.8-7.7) H 01/21/18 05:00 Band Neutrophils # 3.9 K/mm3 01/21/18 05:00 Lymphocytes # (Manual) 2.0 K/mm3 (1.2-5.4) 01/21/18 05:00 Abs React Lymphs (Man) 0.0 K/mm3 01/21/18 05:00 Monocytes # (Manual) 0.4 K/mm3 (0.0-0.8) 01/21/18 05:00 Eosinophils # (Manual) 0.0 K/mm3 (0.0-0.4) 01/21/18 05:00 Basophils # (Manual) 0.0 K/mm3 (0.0-0.1) 01/21/18 05:00 Metamyelocytes # 0.0 K/mm3 01/21/18 05:00 Myelocytes # 0.0 K/mm3 01/21/18 05:00 Promyelocytes # 0.0 K/mm3 01/21/18 05:00 Blast Cells # 0.0 K/mm3 01/21/18 05:00 WBC Morphology Not Reportable 01/21/18 05:00 Hypersegmented Neuts Not Reportable 01/21/18 05:00 Hyposegmented Neuts Not Reportable 01/21/18 05:00 Hypogranular Neuts Not Reportable 01/21/18 05:00 Smudge Cells Not Reportable 01/21/18 05:00 Toxic Granulation Not Reportable 01/21/18 05:00 Toxic Vacuolation Not Reportable 01/21/18 05:00 Dohle Bodies Rare 01/21/18 05:00 Pelger-Huet Anomaly Not Reportable 01/21/18 05:00 Opal Rods Not Reportable 01/21/18 05:00 Platelet Estimate Consistent w auto 01/21/18 05:00 Clumped Platelets Not Reportable 01/21/18 05:00 Plt Clumps, EDTA Not Reportable 01/21/18 05:00 Large Platelets Not Reportable 01/21/18 05:00 Giant Platelets Not Reportable 01/21/18 05:00 Platelet Satelliting Not Reportable 01/21/18 05:00 Plt Morphology Comment Not Reportable 01/21/18 05:00 RBC Morphology Not Reportable 01/21/18 05:00 Dimorphic RBCs Not Reportable 01/21/18 05:00 Polychromasia Not Reportable 01/21/18 05:00 Hypochromasia Not Reportable 01/21/18 05:00 Poikilocytosis Not Reportable 01/21/18 05:00 Anisocytosis Not Reportable 01/21/18 05:00 Microcytosis Not Reportable 01/21/18 05:00 Macrocytosis Not Reportable 01/21/18 05:00 Spherocytes Not Reportable 01/21/18 05:00 Pappenheimer Bodies Not Reportable 01/21/18 05:00 Sickle Cells Not Reportable 01/21/18 05:00 Target Cells Not Reportable 01/21/18 05:00 Tear Drop Cells Not Reportable 01/21/18 05:00 Ovalocytes Not Reportable 01/21/18 05:00 Stomatocytes Few 01/21/18 05:00 Helmet Cells Not Reportable 01/21/18 05:00 Frankel-Haysi Bodies Not Reportable 01/21/18 05:00 [place] Rings Not Reportable 01/21/18 05:00 Jaclyn Cells Not Reportable 01/21/18 05:00 Bite Cells Not Reportable 01/21/18 05:00 Crenated Cell Not Reportable 01/21/18 05:00 Elliptocytes Not Reportable 01/21/18 05:00 Acanthocytes (Spur) Not Reportable 01/21/18 05:00 Rouleaux Not Reportable 01/21/18 05:00 Hemoglobin C Crystals Not Reportable 01/21/18 05:00 Schistocytes Not Reportable 01/21/18 05:00 Malaria parasites Not Reportable 01/21/18 05:00 Brock Bodies Not Reportable 01/21/18 05:00 Hem Pathologist Commnt No 01/21/18 05:00 PT 17.5 Sec. (12.2-14.9) H 01/20/18 07:00 INR 1.35 (0.87-1.13) H 01/20/18 07:00 POC ABG pH 7.411 (7.35-7.45) 01/21/18 04:27 POC ABG pCO2 33.8 (35-45) L 01/21/18 04:27 POC ABG pO2 72 (80-105) L 01/21/18 04:27 POC ABG HCO3 21.5 01/21/18 04:27 POC ABG Total CO2 22 01/21/18 04:27 POC ABG O2 Sat 95 01/21/18 04:27 POC ABG Base Excess -3 01/21/18 04:27 VBG pH 7.273 (7.320-7.420) L 01/17/18 16:54 FiO2 70 % 01/21/18 04:27 Sodium 142 mmol/L (137-145) 01/21/18 05:00 Potassium 4.1 mmol/L (3.6-5.0) 01/21/18 05:00 Chloride 102.2 mmol/L (98-107) 01/21/18 05:00 Carbon Dioxide 21 mmol/L (22-30) L 01/21/18 05:00 Anion Gap 23 mmol/L 01/21/18 05:00 BUN 71 mg/dL (7-17) H 01/21/18 05:00 Creatinine 4.1 mg/dL (0.7-1.2) H 01/21/18 05:00 Estimated GFR 11 ml/min 01/21/18 05:00 BUN/Creatinine Ratio 17 % 01/21/18 05:00 Glucose 149 mg/dL (65-100) H 01/21/18 05:00 POC Glucose 132 (70-105) H 01/21/18 05:18 Hemoglobin A1c 9.0 % (4-6) H 01/17/18 22:36 Lactic Acid 2.10 mmol/L (0.7-2.0) H* 01/21/18 05:00 Calcium 7.5 mg/dL (8.4-10.2) L 01/21/18 05:00 Total Bilirubin 1.00 mg/dL (0.1-1.2) 01/21/18 05:00 AST 494 units/L (5-40) H 01/21/18 05:00 ALT 780 units/L (7-56) H 01/21/18 05:00 Alkaline Phosphatase 151 units/L (35-129) H 01/21/18 05:00 C-Reactive Protein 37.50 mg/dL (0.00-1.30) H 01/20/18 13:54 Total Protein 4.9 g/dL (6.3-8.2) L 01/21/18 05:00 Albumin 1.9 g/dL (3.9-5) L 01/21/18 05:00 Albumin/Globulin Ratio 0.6 % 01/21/18 05:00 Random Vancomycin 12.5 ug/mL (0-40.0) 01/21/18 Unknown Hepatitis A IgM Ab Non-reactive (NonReactive) 01/20/18 07:00 Hep Bs Antigen Non-reactive (Negative) 01/20/18 07:00 Hep B Core IgM Ab Non-reactive (NonReactive) 01/20/18 07:00 Hepatitis C Antibody Non-reactive (NonReactive) 01/20/18 07:00 HIV 1&2 Antibody Rapid Non react (Non React) 01/20/18 Unknown HIV P24 Antigen Non react (Non React) 01/20/18 Unknown
--- NOTE | 2018-01-21 11:18 | Consultation ---
History of Present Illness Consult date: 01/21/18 Consult reason: congestive heart failure History of present illness: This is a 62yr old woman who was brought in 01/17 after she was found by friends unresponsive on the bathroom floor. On presentation, patient was noted hypotensive requiring pressors, hypoglycemic with a blood glucose less than 40 and hypoxic. Patient was subsequently intubated in the ED for airway support and admitted to CCU. Hospital course complicated with acute kidney injury requiring dialysis. Head CT scan is normal. Most recent chest xray reports a large left pleural effusion. There is atelectasis or infiltrate at the right lung base. There is also a right sided pacemaker present. An echocardiogram demonstrates a moderate left ventricular hypertrophy. There is also evidence of right ventricular volume overload. Left ventricular ejection fraction 30-35%. Cardiology consultation was requested for CHF evaluation. History is unobtainable. Patient remains intubated on mechanical ventilation. There are no family members present. 12 lead ECG is a sinus rhythm with LVH. Past History Past Medical History: other (unable to obtain ) Past Surgical History: Other (pacemaker) Medications and Allergies Allergies Allergy/AdvReac Type Severity Reaction Status Date / Time Penicillins Allergy Hives Verified 01/17/18 15:27 Home Medications Medication Instructions Recorded Confirmed Last Taken Type Lisinopril 40 mg PO DAILY 01/17/18 01/17/18 Unknown History Active Meds: Active Medications Acetaminophen (Tylenol) 650 mg FEEDTUBE Q6H PRN PRN Reason: Pain MILD(1-3)/Fever >100.5/WHEELER Last Admin: 01/20/18 11:50 Dose: 650 mg Albuterol (Proventil) 2.5 mg IH Q4HRT PRN PRN Reason: Shortness Of Breath Albuterol/Ipratropium (Duoneb *Not For Prn Use*) 1 ampul IH Q6HRT [facility] Last Admin: 01/21/18 08:51 Dose: 1 ampul Lipase/Protease/Amylase (Mackenzie Jarrell 10,500 Unit) 1 each FEEDTUBE PRN PRN PRN Reason: For Clogged Feeding Tube Apixaban (Eliquis) 2.5 mg FEEDTUBE BID [facility] Last Admin: 01/21/18 09:25 Dose: 2.5 mg Dextrose (D50w (25gm) Syringe) 50 ml IV PRN PRN PRN Reason: Hypoglycemia Famotidine (Pepcid) 20 mg IV DAILY [facility] Last Admin: 01/21/18 09:25 Dose: 20 mg Hydromorphone HCl (Dilaudid) 0.5 mg IV Q3H PRN PRN Reason: Pain , Severe (7-10) Hydrophilic Ointment (Vaseline Lip Therapy) 1 applic TP Q2HR PRN PRN Reason: Dry Lips Fentanyl Citrate (Fentanyl Drip Premix) 2,000 mcg in 100 mls @ 5.67 mls/hr IV TITR RIGOBERTO; Protocol Last Admin: 01/18/18 07:52 Dose: 2 mcg/kg/hr, 11.34 mls/hr Propofol (Diprivan 10 Mg/Ml) 1,000 mg in 100 mls @ 3.402 mls/hr IV TITR RIGOBERTO; Protocol Last Admin: 01/19/18 15:47 Dose: 10 mcg/kg/min, 6.804 mls/hr Piperacillin Sod/Tazobactam Sod (Zosyn/Ns 2.25 Gm/50ml) 2.25 gm in 50 mls @ 100 mls/hr IV Q8H [facility]IG[facility]; Protocol Last Admin: 01/21/18 09:25 Dose: 100 mls/hr Lorazepam 100 mg/ Sodium Chloride/ Miscellaneous Information 100 mls @ 1 mls/ hr IV TITR RIGOBERTO; Protocol Last Admin: 01/18/18 13:00 Dose: 2 mg/hr, 2 mls/hr Vasopressin 20 unit/ Sodium (Chloride) 101 mls @ 9.09 mls/hr IV TITR RIGOBERTO; Protocol Stop: 01/22/18 23:59 Last Titration: 01/18/18 15:00 Dose: 0 units/min, 0 mls/hr Dopamine HCl/Dextrose (Intropin Drip 800 Mg/D5w 250 Ml) 800 mg in 250 mls @ 4.252 mls/hr IV TITR RIGOBERTO; Protocol Last Titration: 01/18/18 10:00 Dose: Infused Sodium Chloride (Nacl 0.9%) 100 mls @ 999 mls/hr IV PAYAL PRN PRN Reason: Hypotension Norepinephrine 8 mg/ Sodium (Chloride) 250 mls @ 56.25 mls/hr IV TITR RIGOBERTO; Protocol Last Titration: 01/21/18 05:18 Dose: 0 mcg/min, 0 mls/hr Dextrose/Sodium Chloride (D5/0.45ns) 1,000 mls @ 42 mls/hr IV DIRECT RIGOBERTO Last Admin: 01/20/18 12:21 Dose: 42 mls/hr Sodium Chloride (Nacl 0.9%) 100 mls @ 999 mls/hr IV PAYAL PRN PRN Reason: Hypotension Vancomycin HCl (Vancomycin/0.45 Ns 1 Gm/250 Ml) 1 gm in 250 mls @ 167.007 mls/ hr IV ONCE RIGOBERTO Stop: 01/21/18 11:30 Insulin Human Lispro (Humalog) 0 unit SUB-Q Q6HR [facility]IGOBERT[facility]; Protocol Last Admin: 01/21/18 06:37 Dose: Not Given Methylprednisolone Sodium Succinate (Solu-Medrol) 40 mg IV Q8H [facility]IG[facility] Last Admin: 01/21/18 09:25 Dose: 40 mg Metoclopramide HCl (Reglan) 10 mg IV Q6H PRN PRN Reason: Nausea And Vomiting Last Admin: 01/19/18 09:16 Dose: 10 mg Morphine Sulfate (Morphine) 2 mg IV Q4H PRN PRN Reason: Pain, Moderate (4-6) Multi-Ingred Cream/Lotion/Oil/Oint (Artificial Tears Ophth Oint) 1 applic OU Q4HR PRN PRN Reason: Dry Eye(s) Last Admin: 01/19/18 17:41 Dose: 1 applic Simple Syrup (Simple Syrup) 15 ml FEEDTUBE PRN PRN PRN Reason: Hypoglycemia Simple Syrup (Simple Syrup) 30 ml FEEDTUBE PRN PRN PRN Reason: Hypoglycemia Sodium Bicarbonate (Sodium Bicarbonate) 325 mg FEEDTUBE PRN PRN PRN Reason: For Clogged Feeding Tube Sodium Chloride (Nacl 0.9% 500 Ml) 1 ml IV DIRECT RIGOBERTO Sodium Chloride (Sodium Chloride Flush Syringe 10 Ml) 10 ml IV BID [facility] Last Admin: 01/21/18 09:26 Dose: 10 ml Sodium Chloride (Sodium Chloride Flush Syringe 10 Ml) 10 ml IV PRN PRN PRN Reason: LINE FLUSH Vancomycin HCl (Vancomycin Pharmacy To Dose) 1 each IV PKCONSULT [facility]; Protocol Physical Examination Vital Signs Pulse Resp BP 95 H 25 H 78/42 01/17/18 15:15 01/17/18 15:15 01/17/18 15:15 General appearance: other (intubated on mechanical ventilation) Cardiac: Positive: Reg Rate and Rhythm Results 01/21/18 05:00 01/21/18 05:00 Cardiac Enzymes 01/21/18 Range/Units 05:00 AST 494 H (5-40) units/L CBC 01/21/18 Range/Units 05:00 WBC 21.7 H (4.5-11.0) K/mm3 RBC 4.00 (3.65-5.03) M/mm3 Hgb 10.9 (10.1-14.3) gm/dl Hct 33.4 (30.3-42.9) % Plt Count 67 L (140-440) K/mm3 Comprehensive Metabolic Panel 01/21/18 Range/Units 05:00 Sodium 142 (137-145) mmol/L Potassium 4.1 (3.6-5.0) mmol/L Chloride 102.2 (98-107) mmol/L Carbon Dioxide 21 L (22-30) mmol/L BUN 71 H (7-17) mg/dL Creatinine 4.1 H (0.7-1.2) mg/dL Glucose 149 H (65-100) mg/dL Calcium 7.5 L (8.4-10.2) mg/dL AST 494 H (5-40) units/L ALT 780 H (7-56) units/L Alkaline Phosphatase 151 H (35-129) units/L Total Protein 4.9 L (6.3-8.2) g/dL Albumin 1.9 L (3.9-5) g/dL Assessment and Plan Acute respiratory failure intubated on mechanical ventilation Pleural effusion, left Pneumonia Sepsis Thrombocytopenia Acute kidney injury requiring dialysis Presence of PPM Transaminitis Lactic acidosis Dilated Cardiomyopathy EF 30-35% on echocardiogram
--- NOTE | 2018-01-21 12:09 | Progress Note ---
Assessment and Plan Assessment: 1) Severe sepsis with septic shock and MODS: shock resolved, still high fever and leukocytosis. Etiology most likely unclear. DDx: pneumonia with parapneumonic effsion ? pelvic abscess? PE. CRP=37 2) Acute respiratory failure 3) Presumed pneumonia with large left pleural effusion 4) JANESSA: worsening now on HD 5) Presumed ? drug abuse 6) DM-poorly controlled 7) Bilateral fingers ischemic changes 8) Pacemaker in place 9) Low EF 10) Facial/chest rash ? flushing 11) Acute encephalopathy 12) Pelvic mass ? abscess Plan: -obtain CT abd with contrast -CHLORINE OPERATOR consult -large left pleural effusion to be eval by pulmonary -legs US r/o DVT -vascular eval in view of juan finger ischemic changes -follow-up blood cultures -obtain respiratory cultures, procalcitonin - pending -check influenza antigen PCR in nasopharinx -continue vancomycin and zosyn renally dosed Thank you for your consultation, will follow up with you. Michaela Parekh MD Infectious Diseases Specialist [facility] ([facility]) M [phone] O [phone] Subjective Date of service: 01/21/18 Principal diagnosis: Acute hypoxic respiratory failure, severe sepsis with shock , encephalopathy Interval history: Remains critically ill, intubated, sedated, tmax 103.1. Microbiology: Blood cultures: 01/17 ngtd 01/20 ngtd Urine cultures: Respiratory cultures: TA 01/17 ngtd / Gram stain many GPC in chains Current Antimicrobials: Zosyn 01/18 Vancomycin 01/18 Objective - Exam Narrative Exam: General appearance: sedated on the vent Eyes: anicteric sclerae, moist conjunctivae; no lid-lag; PERRLA HENT: Atraumatic; oropharynx clear +ETT +NGT Neck: Trachea midline; supple, no thyromegaly or lymphadenopathy Lungs: juna rhonchi CV: tachy Abdomen: Soft, non-tender; distended Extremities: No peripheral edema or extremity lymphadenopathy Skin: mild erythematous macular rash on chest and upper arms. +bilateral multiple fingers purpuric changes Psych: sedated Neuro: sedated Lines: right fem vascath, right IJ TLC - Constitutional Vitals: Vital Signs Temp Pulse Resp BP Pulse Ox 100.3 F H 94 H 27 H 130/87 94 01/21/18 03:47 01/21/18 11:30 01/21/18 10:40 01/21/18 10:40 01/21/18 11:30 Temperature -Last 24 Hours Temperature 100.3 F Temperature 100.2 F Temperature 98.6 F Temperature 98.6 F Temperature 98.9 F Temperature 98.9 F - Labs CBC & Chem 7: 01/21/18 05:00 01/21/18 05:00 Labs: Abnormal lab results 01/20/18 01/20/18 01/20/18 Range/Units 11:48 13:54 17:28 WBC (4.5-11.0) K/mm3 MCH (28-32) pg Plt Count (140-440) K/mm3 Seg Neuts % (Manual) (40.0-70.0) % Lymphocytes % (Manual) (13.4-35.0) % Nucleated RBC % (0.0-0.9) % Seg Neutrophils # Man (1.8-7.7) K/mm3 POC ABG pCO2 (35-45) POC ABG pO2 (80-105) Carbon Dioxide (22-30) mmol/L BUN (7-17) mg/dL Creatinine (0.7-1.2) mg/dL Glucose (65-100) mg/dL POC Glucose 109 H (70-105) Lactic Acid 2.70 H* (0.7-2.0) mmol/L Calcium (8.4-10.2) mg/dL AST (5-40) units/L ALT (7-56) units/L Alkaline Phosphatase (35-129) units/L C-Reactive Protein 37.50 H (0.00-1.30) mg/dL Total Protein (6.3-8.2) g/dL Albumin (3.9-5) g/dL 01/20/18 01/20/18 01/20/18 Range/Units 17:51 20:50 23:55 WBC (4.5-11.0) K/mm3 MCH (28-32) pg Plt Count (140-440) K/mm3 Seg Neuts % (Manual) (40.0-70.0) % Lymphocytes % (Manual) (13.4-35.0) % Nucleated RBC % (0.0-0.9) % Seg Neutrophils # Man (1.8-7.7) K/mm3 POC ABG pCO2 (35-45) POC ABG pO2 (80-105) Carbon Dioxide (22-30) mmol/L BUN (7-17) mg/dL Creatinine (0.7-1.2) mg/dL Glucose (65-100) mg/dL POC Glucose 140 H 149 H (70-105) Lactic Acid 2.30 H* (0.7-2.0) mmol/L Calcium (8.4-10.2) mg/dL AST (5-40) units/L ALT (7-56) units/L Alkaline Phosphatase (35-129) units/L C-Reactive Protein (0.00-1.30) mg/dL Total Protein (6.3-8.2) g/dL Albumin (3.9-5) g/dL 01/20/18 01/21/18 01/21/18 Range/Units Unknown 00:12 04:27 WBC (4.5-11.0) K/mm3 MCH (28-32) pg Plt Count (140-440) K/mm3 Seg Neuts % (Manual) (40.0-70.0) % Lymphocytes % (Manual) (13.4-35.0) % Nucleated RBC % (0.0-0.9) % Seg Neutrophils # Man (1.8-7.7) K/mm3 POC ABG pCO2 33.8 L (35-45) POC ABG pO2 72 L (80-105) Carbon Dioxide (22-30) mmol/L BUN (7-17) mg/dL Creatinine (0.7-1.2) mg/dL Glucose (65-100) mg/dL POC Glucose 134 H (70-105) Lactic Acid 2.50 H* (0.7-2.0) mmol/L Calcium (8.4-10.2) mg/dL AST (5-40) units/L ALT (7-56) units/L Alkaline Phosphatase (35-129) units/L C-Reactive Protein (0.00-1.30) mg/dL Total Protein (6.3-8.2) g/dL Albumin (3.9-5) g/dL 01/21/18 01/21/18 01/21/18 Range/Units 05:00 05:00 05:00 WBC 21.7 H (4.5-11.0) K/mm3 MCH 27 L (28-32) pg Plt Count 67 L (140-440) K/mm3 Seg Neuts % (Manual) 71.0 H (40.0-70.0) % Lymphocytes % (Manual) 9.0 L (13.4-35.0) % Nucleated RBC % 4.0 H (0.0-0.9) % Seg Neutrophils # Man 15.4 H (1.8-7.7) K/mm3 POC ABG pCO2 (35-45) POC ABG pO2 (80-105) Carbon Dioxide 21 L (22-30) mmol/L BUN 71 H (7-17) mg/dL Creatinine 4.1 H (0.7-1.2) mg/dL Glucose 149 H (65-100) mg/dL POC Glucose (70-105) Lactic Acid 2.10 H* (0.7-2.0) mmol/L Calcium 7.5 L (8.4-10.2) mg/dL AST 494 H (5-40) units/L ALT 780 H (7-56) units/L Alkaline Phosphatase 151 H (35-129) units/L C-Reactive Protein (0.00-1.30) mg/dL Total Protein 4.9 L (6.3-8.2) g/dL Albumin 1.9 L (3.9-5) g/dL 01/21/18 Range/Units 05:18 WBC (4.5-11.0) K/mm3 MCH (28-32) pg Plt Count (140-440) K/mm3 Seg Neuts % (Manual) (40.0-70.0) % Lymphocytes % (Manual) (13.4-35.0) % Nucleated RBC % (0.0-0.9) % Seg Neutrophils # Man (1.8-7.7) K/mm3 POC ABG pCO2 (35-45) POC ABG pO2 (80-105) Carbon Dioxide (22-30) mmol/L BUN (7-17) mg/dL Creatinine (0.7-1.2) mg/dL Glucose (65-100) mg/dL POC Glucose 132 H (70-105) Lactic Acid (0.7-2.0) mmol/L Calcium (8.4-10.2) mg/dL AST (5-40) units/L ALT (7-56) units/L Alkaline Phosphatase (35-129) units/L C-Reactive Protein (0.00-1.30) mg/dL Total Protein (6.3-8.2) g/dL Albumin (3.9-5) g/dL
[2018-01-21] MEDS ORDERED: HumaLOG SUB-Q ONE (12:24)
[2018-01-21] MEDS ORDERED: NACL 0.9% 100 ML IV PRN ×2 (14:38→19:48)
[2018-01-21 14:59] LABS: Heparin-Induced Platelet Antib Negative (Negative); Unfractionated Heparin Negative (Negative)
[2018-01-21] MEDS ORDERED: NACL 0.9% 1000 ML 2,000 ML ONE (15:54)
--- NOTE | 2018-01-21 16:58 | Progress Note ---
Assessment and Plan Patient with a history of hypertension and multiple pressors. She has developed ischemic changes to the digits on both hands and both feet. This will be secondary to her pressor support and hypertension however, will evaluate with arterial ultrasound. Would recommend local wound care as ordered ischemic digits on her hands declare themselves. Subjective Date of service: 01/21/18 Principal diagnosis: Acute hypoxic respiratory failure, severe sepsis with shock , encephalopathy Interval history: Patient with a history of hypertension requiring multiple pressure-support. She was noted to have the onset of ischemic changes to the digits of her hands and feet which has progressed. Patient is multiple ischemic digits on both hands as well as mottled feet. Her hands are warm with palpable radial pulses. Nonpalpable pedal pulses. Patient is unresponsive and intubated. Currently receiving dialysis at time of examination. Pressor support has been weaned back. Objective - Constitutional Vitals: Vital Signs - 12hr 01/21/18 01/21/18 01/21/18 05:00 05:10 05:20 Temperature Pulse Rate 92 H 89 92 H Pulse Rate [ Anterior Bilateral Throughout] Pulse Rate [ From Monitor] Respiratory 26 H 24 26 H Rate Respiratory Rate [Anterior Bilateral Throughout] Blood Pressure 112/74 115/76 112/76 O2 Sat by Pulse 94 98 Oximetry 01/21/18 01/21/18 01/21/18 05:30 05:40 05:50 Temperature Pulse Rate 97 H 97 H 92 H Pulse Rate [ Anterior Bilateral Throughout] Pulse Rate [ From Monitor] Respiratory 30 H 31 H 27 H Rate Respiratory Rate [Anterior Bilateral Throughout] Blood Pressure 132/78 119/81 106/76 O2 Sat by Pulse 82 L 82 L 89 Oximetry 01/21/18 01/21/18 01/21/18 06:00 06:10 06:20 Temperature Pulse Rate 95 H 94 H 94 H Pulse Rate [ Anterior Bilateral Throughout] Pulse Rate [ 109 H From Monitor] Respiratory 27 H 28 H 30 H Rate Respiratory Rate [Anterior Bilateral Throughout] Blood Pressure 114/67 110/75 107/76 O2 Sat by Pulse 88 87 87 Oximetry 01/21/18 01/21/18 01/21/18 06:30 06:40 06:50 Temperature Pulse Rate 93 H 93 H 92 H Pulse Rate [ Anterior Bilateral Throughout] Pulse Rate [ From Monitor] Respiratory 28 H 27 H 27 H Rate Respiratory Rate [Anterior Bilateral Throughout] Blood Pressure 109/72 108/73 110/72 O2 Sat by Pulse 91 92 94 Oximetry 01/21/18 01/21/18 01/21/18 07:00 07:10 07:20 Temperature Pulse Rate 91 H 93 H 92 H Pulse Rate [ Anterior Bilateral Throughout] Pulse Rate [ From Monitor] Respiratory 25 H 27 H 26 H Rate Respiratory Rate [Anterior Bilateral Throughout] Blood Pressure 111/75 114/77 115/77 O2 Sat by Pulse 95 95 95 Oximetry 01/21/18 01/21/18 01/21/18 07:30 07:40 07:50 Temperature Pulse Rate 93 H 93 H 93 H Pulse Rate [ Anterior Bilateral Throughout] Pulse Rate [ From Monitor] Respiratory 26 H 26 H 25 H Rate Respiratory Rate [Anterior Bilateral Throughout] Blood Pressure 121/73 115/77 113/78 O2 Sat by Pulse 94 94 95 Oximetry 01/21/18 01/21/18 01/21/18 08:00 08:01 08:10 Temperature 98.5 F Pulse Rate 94 H 95 H 95 H Pulse Rate [ Anterior Bilateral Throughout] Pulse Rate [ 94 H From Monitor] Respiratory 26 H 27 H Rate Respiratory Rate [Anterior Bilateral Throughout] Blood Pressure 122/78 122/78 122/79 O2 Sat by Pulse 97 94 95 Oximetry 01/21/18 01/21/18 01/21/18 08:20 08:30 08:40 Temperature Pulse Rate 94 H 92 H 93 H Pulse Rate [ Anterior Bilateral Throughout] Pulse Rate [ From Monitor] Respiratory 26 H 26 H 27 H Rate Respiratory Rate [Anterior Bilateral Throughout] Blood Pressure 119/77 117/77 120/81 O2 Sat by Pulse 95 95 96 Oximetry 01/21/18 01/21/18 01/21/18 08:50 09:00 09:10 Temperature Pulse Rate 91 H 92 H 94 H Pulse Rate [ 97 H 100 H Anterior Bilateral Throughout] Pulse Rate [ From Monitor] Respiratory 24 28 H 25 H Rate Respiratory 24 24 Rate [Anterior Bilateral Throughout] Blood Pressure 115/74 128/86 128/85 O2 Sat by Pulse 96 95 95 Oximetry 01/21/18 01/21/18 01/21/18 09:20 09:30 09:40 Temperature Pulse Rate 96 H 95 H 96 H Pulse Rate [ Anterior Bilateral Throughout] Pulse Rate [ From Monitor] Respiratory 29 H 30 H 30 H Rate Respiratory Rate [Anterior Bilateral Throughout] Blood Pressure 129/88 135/89 133/87 O2 Sat by Pulse 96 95 96 Oximetry 01/21/18 01/21/18 01/21/18 09:50 10:00 10:10 Temperature Pulse Rate 95 H 95 H 93 H Pulse Rate [ Anterior Bilateral Throughout] Pulse Rate [ 95 H From Monitor] Respiratory 28 H 28 H 27 H Rate Respiratory Rate [Anterior Bilateral Throughout] Blood Pressure 129/86 127/87 131/85 O2 Sat by Pulse 100 98 99 Oximetry 01/21/18 01/21/18 01/21/18 10:20 10:30 10:40 Temperature Pulse Rate 93 H 93 H 95 H Pulse Rate [ Anterior Bilateral Throughout] Pulse Rate [ From Monitor] Respiratory 28 H 27 H 27 H Rate Respiratory Rate [Anterior Bilateral Throughout] Blood Pressure 132/85 127/79 130/87 O2 Sat by Pulse 100 99 100 Oximetry 01/21/18 01/21/18 01/21/18 10:50 11:00 11:10 Temperature Pulse Rate 92 H 94 H 92 H Pulse Rate [ Anterior Bilateral Throughout] Pulse Rate [ From Monitor] Respiratory 24 27 H 25 H Rate Respiratory Rate [Anterior Bilateral Throughout] Blood Pressure 128/84 126/84 126/82 O2 Sat by Pulse 99 99 99 Oximetry 01/21/18 01/21/18 01/21/18 11:20 11:30 11:40 Temperature Pulse Rate 95 H 93 H 92 H Pulse Rate [ Anterior Bilateral Throughout] Pulse Rate [ From Monitor] Respiratory 28 H 30 H 29 H Rate Respiratory Rate [Anterior Bilateral Throughout] Blood Pressure 131/87 127/87 127/87 O2 Sat by Pulse 100 98 98 Oximetry 01/21/18 01/21/18 01/21/18 11:50 12:00 12:10 Temperature 98.7 F Pulse Rate 92 H 93 H 93 H Pulse Rate [ Anterior Bilateral Throughout] Pulse Rate [ 93 H From Monitor] Respiratory 25 H 27 H 25 H Rate Respiratory Rate [Anterior Bilateral Throughout] Blood Pressure 125/84 131/86 O2 Sat by Pulse 99 98 99 Oximetry 01/21/18 01/21/18 01/21/18 12:20 12:30 12:40 Temperature Pulse Rate 92 H 92 H 95 H Pulse Rate [ Anterior Bilateral Throughout] Pulse Rate [ From Monitor] Respiratory 26 H 26 H 26 H Rate Respiratory Rate [Anterior Bilateral Throughout] Blood Pressure 127/86 123/83 141/92 O2 Sat by Pulse 100 99 100 Oximetry 01/21/18 01/21/18 01/21/18 12:50 13:00 13:10 Temperature Pulse Rate 94 H 94 H 92 H Pulse Rate [ Anterior Bilateral Throughout] Pulse Rate [ From Monitor] Respiratory 27 H 30 H 26 H Rate Respiratory Rate [Anterior Bilateral Throughout] Blood Pressure 131/88 131/87 129/85 O2 Sat by Pulse 97 99 100 Oximetry 01/21/18 01/21/18 01/21/18 13:20 13:30 13:40 Temperature Pulse Rate 92 H 92 H 93 H Pulse Rate [ Anterior Bilateral Throughout] Pulse Rate [ From Monitor] Respiratory 27 H 26 H 29 H Rate Respiratory Rate [Anterior Bilateral Throughout] Blood Pressure 128/90 132/85 132/87 O2 Sat by Pulse 96 99 100 Oximetry 01/21/18 01/21/18 01/21/18 13:50 14:00 14:10 Temperature Pulse Rate 93 H 92 H 92 H Pulse Rate [ Anterior Bilateral Throughout] Pulse Rate [ 92 H From Monitor] Respiratory 25 H 24 24 Rate Respiratory Rate [Anterior Bilateral Throughout] Blood Pressure 135/88 125/84 133/88 O2 Sat by Pulse 100 99 99 Oximetry 01/21/18 01/21/18 01/21/18 14:20 14:28 14:30 Temperature Pulse Rate 94 H 83 Pulse Rate [ 94 H Anterior Bilateral Throughout] Pulse Rate [ From Monitor] Respiratory 27 H 24 Rate Respiratory 24 Rate [Anterior Bilateral Throughout] Blood Pressure 135/88 109/72 O2 Sat by Pulse 99 99 Oximetry 01/21/18 01/21/18 01/21/18 14:34 14:40 14:50 Temperature Pulse Rate 90 93 H Pulse Rate [ 98 H Anterior Bilateral Throughout] Pulse Rate [ From Monitor] Respiratory 24 28 H Rate Respiratory 24 Rate [Anterior Bilateral Throughout] Blood Pressure 129/84 130/91 O2 Sat by Pulse 98 98 Oximetry 01/21/18 01/21/18 01/21/18 15:00 15:10 15:20 Temperature Pulse Rate 89 94 H 96 H Pulse Rate [ Anterior Bilateral Throughout] Pulse Rate [ From Monitor] Respiratory 25 H 28 H 29 H Rate Respiratory Rate [Anterior Bilateral Throughout] Blood Pressure 121/82 131/84 129/84 O2 Sat by Pulse 98 98 Oximetry 01/21/18 01/21/18 01/21/18 15:30 15:40 15:46 Temperature Pulse Rate 97 H 93 H 92 H Pulse Rate [ Anterior Bilateral Throughout] Pulse Rate [ From Monitor] Respiratory 28 H 24 Rate Respiratory Rate [Anterior Bilateral Throughout] Blood Pressure 139/90 126/85 O2 Sat by Pulse 93 99 96 Oximetry 01/21/18 01/21/18 01/21/18 15:50 16:00 16:10 Temperature 98.9 F Pulse Rate 92 H 95 H Pulse Rate [ Anterior Bilateral Throughout] Pulse Rate [ 96 H From Monitor] Respiratory 29 H 25 H Rate Respiratory Rate [Anterior Bilateral Throughout] Blood Pressure 122/80 130/87 O2 Sat by Pulse 97 97 Oximetry General appearance: Present: other (intubated) - Neck Neck: other (right ijv catheter) - Breasts Breasts: deferred - Cardiovascular Rhythm: regular Extremities: abnormal Extremity abnormal: black, pulses diminished - Gastrointestinal General gastrointestinal: Present: deferred Rectal Exam: deferred - Genitourinary Female genitourinary: deferred - Labs CBC & Chem 7: 01/21/18 05:00 01/21/18 05:00 Labs: Abnormal lab results 01/20/18 01/20/18 01/20/18 Range/Units 17:28 17:51 20:50 WBC (4.5-11.0) K/mm3 MCH (28-32) pg Plt Count (140-440) K/mm3 Seg Neuts % (Manual) (40.0-70.0) % Lymphocytes % (Manual) (13.4-35.0) % Nucleated RBC % (0.0-0.9) % Seg Neutrophils # Man (1.8-7.7) K/mm3 POC ABG pCO2 (35-45) POC ABG pO2 (80-105) Carbon Dioxide (22-30) mmol/L BUN (7-17) mg/dL Creatinine (0.7-1.2) mg/dL Glucose (65-100) mg/dL POC Glucose 140 H (70-105) Lactic Acid 2.70 H* 2.30 H* (0.7-2.0) mmol/L Calcium (8.4-10.2) mg/dL AST (5-40) units/L ALT (7-56) units/L Alkaline Phosphatase (35-129) units/L Total Protein (6.3-8.2) g/dL Albumin (3.9-5) g/dL 01/20/18 01/21/18 01/21/18 Range/Units 23:55 00:12 04:27 WBC (4.5-11.0) K/mm3 MCH (28-32) pg Plt Count (140-440) K/mm3 Seg Neuts % (Manual) (40.0-70.0) % Lymphocytes % (Manual) (13.4-35.0) % Nucleated RBC % (0.0-0.9) % Seg Neutrophils # Man (1.8-7.7) K/mm3 POC ABG pCO2 33.8 L (35-45) POC ABG pO2 72 L (80-105) Carbon Dioxide (22-30) mmol/L BUN (7-17) mg/dL Creatinine (0.7-1.2) mg/dL Glucose (65-100) mg/dL POC Glucose 149 H 134 H (70-105) Lactic Acid (0.7-2.0) mmol/L Calcium (8.4-10.2) mg/dL AST (5-40) units/L ALT (7-56) units/L Alkaline Phosphatase (35-129) units/L Total Protein (6.3-8.2) g/dL Albumin (3.9-5) g/dL 01/21/18 01/21/18 01/21/18 Range/Units 05:00 05:00 05:00 WBC 21.7 H (4.5-11.0) K/mm3 MCH 27 L (28-32) pg Plt Count 67 L (140-440) K/mm3 Seg Neuts % (Manual) 71.0 H (40.0-70.0) % Lymphocytes % (Manual) 9.0 L (13.4-35.0) % Nucleated RBC % 4.0 H (0.0-0.9) % Seg Neutrophils # Man 15.4 H (1.8-7.7) K/mm3 POC ABG pCO2 (35-45) POC ABG pO2 (80-105) Carbon Dioxide 21 L (22-30) mmol/L BUN 71 H (7-17) mg/dL Creatinine 4.1 H (0.7-1.2) mg/dL Glucose 149 H (65-100) mg/dL POC Glucose (70-105) Lactic Acid 2.10 H* (0.7-2.0) mmol/L Calcium 7.5 L (8.4-10.2) mg/dL AST 494 H (5-40) units/L ALT 780 H (7-56) units/L Alkaline Phosphatase 151 H (35-129) units/L Total Protein 4.9 L (6.3-8.2) g/dL Albumin 1.9 L (3.9-5) g/dL 01/21/18 Range/Units 05:18 WBC (4.5-11.0) K/mm3 MCH (28-32) pg Plt Count (140-440) K/mm3 Seg Neuts % (Manual) (40.0-70.0) % Lymphocytes % (Manual) (13.4-35.0) % Nucleated RBC % (0.0-0.9) % Seg Neutrophils # Man (1.8-7.7) K/mm3 POC ABG pCO2 (35-45) POC ABG pO2 (80-105) Carbon Dioxide (22-30) mmol/L BUN (7-17) mg/dL Creatinine (0.7-1.2) mg/dL Glucose (65-100) mg/dL POC Glucose 132 H (70-105) Lactic Acid (0.7-2.0) mmol/L Calcium (8.4-10.2) mg/dL AST (5-40) units/L ALT (7-56) units/L Alkaline Phosphatase (35-129) units/L Total Protein (6.3-8.2) g/dL Albumin (3.9-5) g/dL
--- NOTE | 2018-01-21 18:11 | Ultrasound Report ---
FINAL REPORT PROCEDURE: US PELVIC COMPLETE TECHNIQUE: Real-time transabdominal sonography in multiple planes of pelvis was performed with image documentation. This examination was performed without Doppler. Vascular abnormalities, including ovarian torsion, will not be detectable without Doppler evaluation. CPT 52599 HISTORY: Possible abscess COMPARISON: No prior studies are available for comparison. FINDINGS: UTERUS: There is very limited evaluation of the uterus. Size: Approximately 7.8 x 4.6 x 6.1 cm. Endometrial thickness: Very limited evaluation, possibly thickened, measuring 9 millimeters in thickness Limited evaluation for focal uterine lesions. RIGHT Ovary: There is very limited evaluation of the right ovary. There are either cystic structures or focal fluid collections in the right pelvis. Three are measured, measuring up to 6.7 centimeters, 8.8 centimeters, and 7.3 centimeters. LEFT Ovary: Not visualized. Pelvic fluid: None. Other: None. IMPRESSION: Very limited evaluation of the uterus. Possible endometrial thickening. There are either large cysts in the right pelvis versus focal fluid collections. Consider further evaluation with CT with IV and oral contrast.
[2018-01-21] MEDS ORDERED: HEPARIN IV PRN (19:48)
[2018-01-21] MEDS ORDERED: NACL 0.9% 1000 ML 1,000 ML ONE (20:21)
[2018-01-21] MEDS: SODIUM CHLORIDE FLUSH SYRINGE 10 ML IV PRN (23:00)
[2018-01-22] MEDS: HumaLOG SUB-Q SCH ×4 (01:12→18:00)
[2018-01-22] MEDS: SODIUM CHLORIDE FLUSH SYRINGE 10 ML IV SCH ×2 (01:13→03:16)
[2018-01-22] MEDS: DUONEB *Not for PRN Use IH SCH ×4 (01:15→20:45)
[2018-01-22] MEDS: ZOSYN/NS 2.25 GM/50ML 2.25 GM/50 ML BAG IV SCH ×4 (01:18→23:58)
--- NOTE | 2018-01-22 03:26 | XRay Report ---
FINAL REPORT EXAM: XR CHEST 1V AP HISTORY: follow up respiratory failure COMPARISON: January 21, 2018 FINDINGS: Frontal view(s) of the chest obtained. Stable cardiac enlargement. Decrease in size of left-sided pleural effusion. Small pleural effusion consolidation remain. Linear atelectasis mid lungs bilaterally. Lines and tubes are grossly unchanged. IMPRESSION: Decrease in size of left-sided pleural effusion. Small consolidation and effusion remain at the left lung base.
[2018-01-22] MEDS: APRESOLINE IV PRN (04:50)
[2018-01-22 04:57] LABS: Mean Corpuscular HGB Conc 32 % (30-34); Mean Corpuscular Hemoglobin 27 pg (28-32); Mean Corpuscular Volume 84 fl (79-97); Red Blood Count 4.42 M/mm3 (3.65-5.03)
[2018-01-22 05:00] LABS: Platelet Count 80 K/mm3 (140-440)
[2018-01-22 05:16] LABS: Albumin 2.3 g/dL (3.9-5); Calcium 7.3 mg/dL (8.4-10.2)
[2018-01-22] MEDS: MORPHINE IV PRN ×2 (05:20→13:11)
--- NOTE | 2018-01-22 08:42 | Consultation ---
History of Present Illness Consult date: 01/22/18 Reason for consult: pelvic mass History of present illness: 62y/o female admitted from the emergency dept after being found in her bathroom. The patient was noted to be hypoxic upon evaluation. She is currently admitted to the ICU intubated and unresponsive. Medical history is not obtainable from the patient. She is experiencing multiple co-morbidities to include diabetes, hypertension, acute renal failure, respiratory distress, sepsis, peripheral vascular compromise. A pelvic ultrasound was obtained with findings of a right fluid collection measuring 6.7cm, 8.8cm, and 7.3cm respectively. Unable to clearly determine if these are actual ovarian cysts or loculated collections of fluid in the pelvis. The left ovary could not be identified. The images of the fluid is not consistent with an abscess. Current findings likely not contributing to patient's current condition. Past History Past Medical History: hypertension, diabetes, renal disease, vascular disease Past Surgical History: other (unable to obtain) Medications and Allergies Allergies Allergy/AdvReac Type Severity Reaction Status Date / Time Penicillins Allergy Hives Verified 01/17/18 15:27 Home Medications Medication Instructions Recorded Confirmed Last Taken Type Lisinopril 40 mg PO DAILY 01/17/18 01/17/18 Unknown History Active Meds: Active Medications Acetaminophen (Tylenol) 650 mg FEEDTUBE Q6H PRN PRN Reason: Pain MILD(1-3)/Fever >100.5/WHEELER Last Admin: 01/20/18 11:50 Dose: 650 mg Albuterol (Proventil) 2.5 mg IH Q4HRT PRN PRN Reason: Shortness Of Breath Albuterol/Ipratropium (Duoneb *Not For Prn Use*) 1 ampul IH Q6HRT [facility] Last Admin: 01/22/18 01:15 Dose: 1 ampul Lipase/Protease/Amylase (Pancreaze Dr 10,500 Unit) 1 each FEEDTUBE PRN PRN PRN Reason: For Clogged Feeding Tube Apixaban (Eliquis) 2.5 mg FEEDTUBE BID [facility] Last Admin: 01/21/18 21:04 Dose: 2.5 mg Dextrose (D50w (25gm) Syringe) 50 ml IV PRN PRN PRN Reason: Hypoglycemia Famotidine (Pepcid) 20 mg IV DAILY [facility] Last Admin: 01/21/18 09:25 Dose: 20 mg Heparin Sodium (Porcine) (Heparin) 5,000 unit IV PAYAL PRN PRN Reason: hemodialysis Hydralazine HCl (Apresoline) 5 mg IV Q4H PRN PRN Reason: Hypertension Last Admin: 01/22/18 04:50 Dose: 5 mg Hydromorphone HCl (Dilaudid) 0.5 mg IV Q3H PRN PRN Reason: Pain , Severe (7-10) Hydrophilic Ointment (Vaseline Lip Therapy) 1 applic TP Q2HR PRN PRN Reason: Dry Lips Fentanyl Citrate (Fentanyl Drip Premix) 2,000 mcg in 100 mls @ 5.67 mls/hr IV TITR RIGOBERTO; Protocol Last Admin: 01/18/18 07:52 Dose: 2 mcg/kg/hr, 11.34 mls/hr Propofol (Diprivan 10 Mg/Ml) 1,000 mg in 100 mls @ 3.402 mls/hr IV TITR RIGOBERTO; Protocol Last Admin: 01/19/18 15:47 Dose: 10 mcg/kg/min, 6.804 mls/hr Piperacillin Sod/Tazobactam Sod (Zosyn/Ns 2.25 Gm/50ml) 2.25 gm in 50 mls @ 100 mls/hr IV Q8H RIGOBERTO; Protocol Last Admin: 01/22/18 01:18 Dose: 100 mls/hr Lorazepam 100 mg/ Sodium Chloride/ Miscellaneous Information 100 mls @ 1 mls/ hr IV TITR RIGOBERTO; Protocol Last Admin: 01/18/18 13:00 Dose: 2 mg/hr, 2 mls/hr Dextrose/Sodium Chloride (D5/0.45ns) 1,000 mls @ 42 mls/hr IV DIRECT RIGOBERTO Last Admin: 01/20/18 12:21 Dose: 42 mls/hr Sodium Chloride (Nacl 0.9%) 100 mls @ 999 mls/hr IV PAYAL PRN PRN Reason: Hypotension Insulin Human Lispro (Humalog) 0 unit SUB-Q Q6HR RIGOBERTO; Protocol Last Admin: 01/22/18 06:30 Dose: Not Given Methylprednisolone Sodium Succinate (Solu-Medrol) 40 mg IV Q8H RIGOBERTO Last Admin: 01/22/18 00:00 Dose: 40 mg Metoclopramide HCl (Reglan) 10 mg IV Q6H PRN PRN Reason: Nausea And Vomiting Last Admin: 01/19/18 09:16 Dose: 10 mg Morphine Sulfate (Morphine) 2 mg IV Q4H PRN PRN Reason: Pain, Moderate (4-6) Last Admin: 01/22/18 05:20 Dose: 2 mg Multi-Ingred Cream/Lotion/Oil/Oint (Artificial Tears Ophth Oint) 1 applic OU Q4HR PRN PRN Reason: Dry Eye(s) Last Admin: 01/19/18 17:41 Dose: 1 applic Simple Syrup (Simple Syrup) 15 ml FEEDTUBE PRN PRN PRN Reason: Hypoglycemia Simple Syrup (Simple Syrup) 30 ml FEEDTUBE PRN PRN PRN Reason: Hypoglycemia Sodium Bicarbonate (Sodium Bicarbonate) 325 mg FEEDTUBE PRN PRN PRN Reason: For Clogged Feeding Tube Sodium Chloride (Nacl 0.9% 500 Ml) 1 ml IV DIRECT RIGOBERTO Sodium Chloride (Sodium Chloride Flush Syringe 10 Ml) 10 ml IV BID RIGOBERTO Last Admin: 01/22/18 03:16 Dose: Not Given Sodium Chloride (Sodium Chloride Flush Syringe 10 Ml) 10 ml IV PRN PRN PRN Reason: LINE FLUSH Last Admin: 01/21/18 23:00 Dose: 10 ml Vancomycin HCl (Vancomycin Pharmacy To Dose) 1 each IV PKCONSULT RIGOBERTO; Protocol Review of Systems ROS unobtainable: due to endotracheal tube, due to mental status - Vital Signs Vital signs: Vital Signs Pulse Resp BP 95 H 25 H 78/42 01/17/18 15:15 01/17/18 15:15 01/17/18 15:15 Temp Pulse Resp BP Pulse Ox 98.4 F 103 H 32 H 139/90 94 01/22/18 08:00 01/22/18 08:20 01/22/18 08:20 01/22/18 08:20 01/22/18 08:20 Results Result Diagrams: 01/22/18 04:10 01/22/18 04:10 Abnormal lab results 01/21/18 01/21/18 01/21/18 Range/Units 12:20 18:07 23:40 WBC (4.5-11.0) K/mm3 MCH (28-32) pg Plt Count (140-440) K/mm3 POC ABG pO2 (80-105) Chloride (98-107) mmol/L BUN (7-17) mg/dL Creatinine (0.7-1.2) mg/dL Glucose (65-100) mg/dL POC Glucose 158 H 143 H 136 H (70-105) Calcium (8.4-10.2) mg/dL AST (5-40) units/L ALT (7-56) units/L Total Protein (6.3-8.2) g/dL Albumin (3.9-5) g/dL 01/22/18 01/22/18 01/22/18 Range/Units 03:48 04:10 04:10 WBC 24.9 H (4.5-11.0) K/mm3 MCH 27 L (28-32) pg Plt Count 80 L (140-440) K/mm3 POC ABG pO2 65 L (80-105) Chloride 97.7 L (98-107) mmol/L BUN 72 H (7-17) mg/dL Creatinine 3.6 H (0.7-1.2) mg/dL Glucose 145 H (65-100) mg/dL POC Glucose (70-105) Calcium 7.3 L (8.4-10.2) mg/dL AST 146 H (5-40) units/L ALT 547 H (7-56) units/L Total Protein 5.2 L (6.3-8.2) g/dL Albumin 2.3 L (3.9-5) g/dL 01/22/18 Range/Units 05:56 WBC (4.5-11.0) K/mm3 MCH (28-32) pg Plt Count (140-440) K/mm3 POC ABG pO2 (80-105) Chloride (98-107) mmol/L BUN (7-17) mg/dL Creatinine (0.7-1.2) mg/dL Glucose (65-100) mg/dL POC Glucose 139 H (70-105) Calcium (8.4-10.2) mg/dL AST (5-40) units/L ALT (7-56) units/L Total Protein (6.3-8.2) g/dL Albumin (3.9-5) g/dL All other labs normal. Assessment and Plan - Patient Problems (1) Pelvic mass in female Current Visit: Yes Status: Acute Plan to address problem: findings of right fluid collection vs ovarian cysts. Images not consistent with pelvic abscess. 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 Highly unlikely that current findings are contributing to patient's multiple morbidities. She is not a surgical candidate until overall status improves dramatically Thank you for the consult Please let me know if I can be of further assistance Bernie Lance MD [phone] (cell) (2) Renal failure Current Visit: Yes Status: Acute (3) Hypoxia Current Visit: Yes Status: Acute (4) Septic shock Current Visit: Yes Status: Acute
[2018-01-22] MEDS ORDERED: SIMPLE SYRUP FEEDTUBE PRN ×2 (08:52)
[2018-01-22] MEDS ORDERED: SODIUM BICARBONATE FEEDTUBE PRN (08:52)
[2018-01-22] MEDS ORDERED: PANCREAZE DR 10,500 UNIT FEEDTUBE PRN (08:52)
--- NOTE | 2018-01-22 09:57 | Progress Note ---
Subjective Principal diagnosis: Acute hypoxic respiratory failure, severe sepsis with shock , encephalopathy Interval history: Patient was seen today for follow-up on multiple renal related issues, she is still intubated events of 24 hours noted Renal ultrasonogram unremarkable kidneys cystic mass in the pelvic area Vitals labs intake output medications were reviewed Social history: Reviewed Allergies: Reviewed Family history: Reviewed Physical examination HEENT: Oral mucosa moist no pallor or icterus, orally intubated Neck: Supple no JVD Chest: bilateral coarse breath sounds diminished at lung bases CVS: Regular rate and rhythm S1 and S2 heard Abdomen: Soft nontender no suprapubic masses no organomegaly appreciable Extremity: Dry skin less than 1+ peripheral edema Musculoskeletal: No joint effusion noted in knees and ankle Neurological: encephalopathic Dermatology: No petechial rashes Psychiatry: No evidence of any agitation and aggression noted Assessment and plan acute renal failure mostly resulting from acute tubular necrosis given the clinical satiety or currently dialysis dependent continue with hemodialysis 3-4 times per week for now Respiratory failure with pleural effusion continue to monitor may require pleural tap Cystic-appearing pelvic mass being followed by gynecology Worsening leukocytosis to monitor and follow likely may require pleural tap, if CT scan of the chest abdomen pelvis is to be done B high risk discussed with hospital medicine it'll also impair recovery of renal function however if it is life-threatening and needs to be done patient's family needs to be explained about this discussed with hospital medicine Hypotension: Slowly improving Encephalopathy: Appears to be dense toxic metabolic History of cocaine as well as methamphetamine abuse chronic according to daughter with whom I discussed when patient came in Aspiration pneumonia:? Parapneumonic effusion that needs to be tapped Mortality risk still remains high Objective - Vital Signs Vital signs: Vital Signs - 12hr 01/21/18 01/21/18 01/21/18 22:00 22:10 22:20 Temperature Pulse Rate 100 H 103 H 150 H Pulse Rate [ Anterior Bilateral Throughout] Pulse Rate [ 100 H From Monitor] Respiratory 30 H 29 H 32 H Rate Respiratory Rate [Anterior Bilateral Throughout] Respiratory Rate [denies] Blood Pressure 158/102 145/109 150/118 O2 Sat by Pulse 97 98 99 Oximetry 01/21/18 01/21/18 01/21/18 22:30 22:40 22:50 Temperature Pulse Rate 101 H 102 H 101 H Pulse Rate [ Anterior Bilateral Throughout] Pulse Rate [ From Monitor] Respiratory 29 H 30 H 27 H Rate Respiratory Rate [Anterior Bilateral Throughout] Respiratory Rate [denies] Blood Pressure 153/93 160/99 153/106 O2 Sat by Pulse 98 97 97 Oximetry 01/21/18 01/21/18 01/21/18 23:00 23:08 23:10 Temperature Pulse Rate 103 H 98 H 101 H Pulse Rate [ Anterior Bilateral Throughout] Pulse Rate [ From Monitor] Respiratory 32 H 29 H Rate Respiratory Rate [Anterior Bilateral Throughout] Respiratory Rate [denies] Blood Pressure 156/105 160/99 167/105 O2 Sat by Pulse 97 98 96 Oximetry 01/21/18 01/21/18 01/21/18 23:20 23:30 23:41 Temperature Pulse Rate 103 H 102 H 101 H Pulse Rate [ Anterior Bilateral Throughout] Pulse Rate [ From Monitor] Respiratory 32 H 28 H 30 H Rate Respiratory Rate [Anterior Bilateral Throughout] Respiratory Rate [denies] Blood Pressure 159/108 163/104 163/104 O2 Sat by Pulse 96 96 99 Oximetry 01/21/18 01/22/18 01/22/18 23:51 00:00 00:10 Temperature 99.1 F Pulse Rate 99 H 101 H 97 H Pulse Rate [ Anterior Bilateral Throughout] Pulse Rate [ From Monitor] Respiratory 26 H 22 26 H Rate Respiratory Rate [Anterior Bilateral Throughout] Respiratory Rate [denies] Blood Pressure 163/104 169/113 169/113 O2 Sat by Pulse 97 98 97 Oximetry 01/22/18 01/22/18 01/22/18 00:20 00:30 00:40 Temperature Pulse Rate 102 H 102 H 92 H Pulse Rate [ Anterior Bilateral Throughout] Pulse Rate [ From Monitor] Respiratory 33 H 33 H 28 H Rate Respiratory Rate [Anterior Bilateral Throughout] Respiratory Rate [denies] Blood Pressure 169/113 177/117 177/117 O2 Sat by Pulse 92 90 96 Oximetry 01/22/18 01/22/18 01/22/18 00:50 01:00 01:11 Temperature Pulse Rate 90 91 H 93 H Pulse Rate [ Anterior Bilateral Throughout] Pulse Rate [ From Monitor] Respiratory 28 H 27 H 28 H Rate Respiratory Rate [Anterior Bilateral Throughout] Respiratory Rate [denies] Blood Pressure 177/117 122/79 122/79 O2 Sat by Pulse 95 96 96 Oximetry 01/22/18 01/22/18 01/22/18 01:15 01:21 01:30 Temperature Pulse Rate 85 85 Pulse Rate [ 92 H 94 H Anterior Bilateral Throughout] Pulse Rate [ From Monitor] Respiratory 24 24 Rate Respiratory 29 H 29 H Rate [Anterior Bilateral Throughout] Respiratory Rate [denies] Blood Pressure 122/79 101/69 O2 Sat by Pulse 97 97 Oximetry 01/22/18 01/22/18 01/22/18 01:41 01:51 02:00 Temperature Pulse Rate 90 101 H Pulse Rate [ Anterior Bilateral Throughout] Pulse Rate [ 100 H From Monitor] Respiratory 21 31 H 30 H Rate Respiratory Rate [Anterior Bilateral Throughout] Respiratory Rate [denies] Blood Pressure 101/69 101/69 O2 Sat by Pulse 97 97 97 Oximetry 01/22/18 01/22/18 01/22/18 02:01 02:11 02:21 Temperature Pulse Rate 99 H 98 H 102 H Pulse Rate [ Anterior Bilateral Throughout] Pulse Rate [ From Monitor] Respiratory 28 H 26 H 33 H Rate Respiratory Rate [Anterior Bilateral Throughout] Respiratory Rate [denies] Blood Pressure 150/102 150/102 150/102 O2 Sat by Pulse 97 97 Oximetry 01/22/18 01/22/18 01/22/18 02:30 02:41 02:51 Temperature Pulse Rate 98 H 100 H 101 H Pulse Rate [ Anterior Bilateral Throughout] Pulse Rate [ From Monitor] Respiratory 28 H 29 H 32 H Rate Respiratory Rate [Anterior Bilateral Throughout] Respiratory Rate [denies] Blood Pressure 160/112 160/112 160/112 O2 Sat by Pulse 97 90 92 Oximetry 01/22/18 01/22/18 01/22/18 03:00 03:11 03:21 Temperature Pulse Rate 100 H 99 H 101 H Pulse Rate [ Anterior Bilateral Throughout] Pulse Rate [ From Monitor] Respiratory 35 H 30 H 33 H Rate Respiratory Rate [Anterior Bilateral Throughout] Respiratory Rate [denies] Blood Pressure 160/112 166/121 166/121 O2 Sat by Pulse 95 93 Oximetry 01/22/18 01/22/18 01/22/18 03:30 03:41 03:42 Temperature Pulse Rate 99 H 97 H 101 H Pulse Rate [ Anterior Bilateral Throughout] Pulse Rate [ From Monitor] Respiratory 25 H 32 H Rate Respiratory Rate [Anterior Bilateral Throughout] Respiratory Rate [denies] Blood Pressure 174/114 170/110 170/110 O2 Sat by Pulse 100 93 94 Oximetry 01/22/18 01/22/18 01/22/18 03:51 04:00 04:11 Temperature 100.1 F H Pulse Rate 96 H 98 H 101 H Pulse Rate [ Anterior Bilateral Throughout] Pulse Rate [ 106 H From Monitor] Respiratory 30 H 31 H 32 H Rate Respiratory Rate [Anterior Bilateral Throughout] Respiratory Rate [denies] Blood Pressure 170/110 177/116 191/122 O2 Sat by Pulse 96 94 91 Oximetry 01/22/18 01/22/18 01/22/18 04:20 04:30 04:40 Temperature Pulse Rate 101 H 100 H 101 H Pulse Rate [ Anterior Bilateral Throughout] Pulse Rate [ From Monitor] Respiratory 30 H 31 H 33 H Rate Respiratory Rate [Anterior Bilateral Throughout] Respiratory Rate [denies] Blood Pressure 191/122 193/123 191/122 O2 Sat by Pulse 93 93 Oximetry 01/22/18 01/22/18 01/22/18 04:50 05:00 05:10 Temperature Pulse Rate 96 H 98 H 101 H Pulse Rate [ Anterior Bilateral Throughout] Pulse Rate [ From Monitor] Respiratory 26 H 32 H 43 H Rate Respiratory Rate [Anterior Bilateral Throughout] Respiratory Rate [denies] Blood Pressure 191/122 164/101 164/101 O2 Sat by Pulse 97 100 96 Oximetry 01/22/18 01/22/18 01/22/18 05:16 05:20 05:30 Temperature Pulse Rate 105 H 107 H Pulse Rate [ Anterior Bilateral Throughout] Pulse Rate [ From Monitor] Respiratory 35 H 35 H Rate Respiratory Rate [Anterior Bilateral Throughout] Respiratory 40 H Rate [denies] Blood Pressure 164/101 214/136 O2 Sat by Pulse 95 94 Oximetry 01/22/18 01/22/18 01/22/18 05:40 05:50 06:00 Temperature Pulse Rate 106 H 106 H 106 H Pulse Rate [ Anterior Bilateral Throughout] Pulse Rate [ From Monitor] Respiratory 35 H 35 H 34 H Rate Respiratory Rate [Anterior Bilateral Throughout] Respiratory Rate [denies] Blood Pressure 214/136 214/136 214/125 O2 Sat by Pulse 94 94 93 Oximetry 01/22/18 01/22/18 01/22/18 06:10 06:20 06:30 Temperature Pulse Rate 105 H 106 H 105 H Pulse Rate [ Anterior Bilateral Throughout] Pulse Rate [ From Monitor] Respiratory 37 H 35 H 35 H Rate Respiratory Rate [Anterior Bilateral Throughout] Respiratory Rate [denies] Blood Pressure 214/125 214/125 200/114 O2 Sat by Pulse 92 95 94 Oximetry 0301/22/18 01/22/18 06:40 06:50 07:00 Temperature Pulse Rate 107 H 108 H 105 H Pulse Rate [ Anterior Bilateral Throughout] Pulse Rate [ From Monitor] Respiratory 34 H 35 H 37 H Rate Respiratory Rate [Anterior Bilateral Throughout] Respiratory Rate [denies] Blood Pressure 200/114 200/114 197/121 O2 Sat by Pulse 94 94 92 Oximetry 01/22/18 01/22/18 01/22/18 07:10 07:20 07:30 Temperature Pulse Rate 109 H 107 H 109 H Pulse Rate [ Anterior Bilateral Throughout] Pulse Rate [ From Monitor] Respiratory 33 H 34 H 32 H Rate Respiratory Rate [Anterior Bilateral Throughout] Respiratory Rate [denies] Blood Pressure 198/118 198/118 199/107 O2 Sat by Pulse 95 95 92 Oximetry 01/22/18 01/22/18 01/22/18 07:40 07:50 08:00 Temperature 98.4 F Pulse Rate 108 H 106 H 104 H Pulse Rate [ Anterior Bilateral Throughout] Pulse Rate [ From Monitor] Respiratory 36 H 34 H 23 Rate Respiratory Rate [Anterior Bilateral Throughout] Respiratory Rate [denies] Blood Pressure 199/107 199/107 139/90 O2 Sat by Pulse 90 88 96 Oximetry 01/22/18 01/22/18 01/22/18 08:10 08:20 09:14 Temperature Pulse Rate 105 H 103 H 109 H Pulse Rate [ Anterior Bilateral Throughout] Pulse Rate [ From Monitor] Respiratory 32 H 32 H Rate Respiratory Rate [Anterior Bilateral Throughout] Respiratory Rate [denies] Blood Pressure 139/90 139/90 161/92 O2 Sat by Pulse 94 94 94 Oximetry 01/22/18 09:19 Temperature Pulse Rate Pulse Rate [ 107 H Anterior Bilateral Throughout] Pulse Rate [ From Monitor] Respiratory Rate Respiratory 34 H Rate [Anterior Bilateral Throughout] Respiratory Rate [denies] Blood Pressure O2 Sat by Pulse Oximetry - Lab 01/22/18 04:10 01/22/18 04:10 Most recent lab results Calcium 7.3 mg/dL (8.4-10.2) L 01/22/18 04:10
--- NOTE | 2018-01-22 11:12 | Vascular Lab Report ---
LOWER EXTREMITY VENOUS DUPLEX: REASON FOR EXAM: Deep venous thrombosis. COMMENTS ON THE RIGHT: All veins visualized are freely compressible without evidence of internal echogenicity. Flow is spontaneous and phasic throughout. COMMENTS ON THE LEFT: All veins visualized are freely compressible without evidence of internal echogenicity. Flow is spontaneous and phasic throughout. IMPRESSION: No evidence of acute or chronic deep venous thrombosis in either lower extremity.
[2018-01-22] MEDS: ELIQUIS FEEDTUBE SCH ×2 (11:41→22:39)
[2018-01-22] MEDS: PEPCID IV SCH (11:42)
[2018-01-22] MEDS: REGLAN IV PRN (11:42)
--- NOTE | 2018-01-22 12:54 | Progress Note ---
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 History of cocaine abuse, Acute encephalopathy Lactic acidosis Thrombocytopenia - Continue with mechanical ventilatory support - VAP bundle addressed - daily evaluation for SATs and SBTs - HD/UF per nephrology for toxin and volume clearance - continue VTE prophylaxis with eliquis (sent HIT assay) - continue stress ulcer prophylaxis - continue Empiric antibiotics, plan to de-escalate per ID recs - continue supplemental oxygen to wean for oxygen saturations >90% (on 50% FiO2 now) - Wean vasopressor support for MAP>65 - continue Lung protective strategies, ARDS-net protocol - send repeat lactic acid and send CRP levels re: anti-infective de-escalation - continue other care per attending/other consultants ....remains critically ill on MVS and at high risk for further deterioration including ...30' CCT Subjective Date of service: 01/22/18 Principal diagnosis: Acute hypoxic respiratory failure, severe sepsis with shock , encephalopathy Interval history: Patient seen today for: Acute hypoxic respiratory failure, severe sepsis with shock, encephalopathy Seen and examined at bedside; 24-hour events reviewed; nursing and respiratory care staff consulted; no adverse overnight events reported to me; remains on MVS ; AMS is persistent; more active but not purposeful; FiO2 requirements slowly improving; No emesis or overt aspiration Objective Vital Signs - 12hr 01/22/18 01/22/18 01/22/18 01:00 01:11 01:15 Temperature Pulse Rate 91 H 93 H Pulse Rate [ 92 H Anterior Bilateral Throughout] Pulse Rate [ From Monitor] Respiratory 27 H 28 H Rate Respiratory 29 H Rate [Anterior Bilateral Throughout] Respiratory Rate [denies] Blood Pressure 122/79 122/79 O2 Sat by Pulse 96 96 Oximetry 01/22/18 01/22/18 01/22/18 01:21 01:30 01:41 Temperature Pulse Rate 85 85 90 Pulse Rate [ 94 H Anterior Bilateral Throughout] Pulse Rate [ From Monitor] Respiratory 24 24 21 Rate Respiratory 29 H Rate [Anterior Bilateral Throughout] Respiratory Rate [denies] Blood Pressure 122/79 101/69 101/69 O2 Sat by Pulse 97 97 97 Oximetry 01/22/18 01/22/18 01/22/18 01:51 02:00 02:01 Temperature Pulse Rate 101 H 99 H Pulse Rate [ Anterior Bilateral Throughout] Pulse Rate [ 100 H From Monitor] Respiratory 31 H 30 H 28 H Rate Respiratory Rate [Anterior Bilateral Throughout] Respiratory Rate [denies] Blood Pressure 101/69 150/102 O2 Sat by Pulse 97 97 97 Oximetry 01/22/18 01/22/18 01/22/18 02:11 02:21 02:30 Temperature Pulse Rate 98 H 102 H 98 H Pulse Rate [ Anterior Bilateral Throughout] Pulse Rate [ From Monitor] Respiratory 26 H 33 H 28 H Rate Respiratory Rate [Anterior Bilateral Throughout] Respiratory Rate [denies] Blood Pressure 150/102 150/102 160/112 O2 Sat by Pulse 97 97 Oximetry 01/22/18 01/22/18 01/22/18 02:41 02:51 03:00 Temperature Pulse Rate 100 H 101 H 100 H Pulse Rate [ Anterior Bilateral Throughout] Pulse Rate [ From Monitor] Respiratory 29 H 32 H 35 H Rate Respiratory Rate [Anterior Bilateral Throughout] Respiratory Rate [denies] Blood Pressure 160/112 160/112 160/112 O2 Sat by Pulse 90 92 Oximetry 01/22/18 01/22/18 01/22/18 03:11 03:21 03:30 Temperature Pulse Rate 99 H 101 H 99 H Pulse Rate [ Anterior Bilateral Throughout] Pulse Rate [ From Monitor] Respiratory 30 H 33 H 25 H Rate Respiratory Rate [Anterior Bilateral Throughout] Respiratory Rate [denies] Blood Pressure 166/121 166/121 174/114 O2 Sat by Pulse 95 93 100 Oximetry 01/22/18 01/22/18 01/22/18 03:41 03:42 03:51 Temperature Pulse Rate 97 H 101 H 96 H Pulse Rate [ Anterior Bilateral Throughout] Pulse Rate [ From Monitor] Respiratory 32 H 30 H Rate Respiratory Rate [Anterior Bilateral Throughout] Respiratory Rate [denies] Blood Pressure 170/110 170/110 170/110 O2 Sat by Pulse 93 94 96 Oximetry 01/22/18 01/22/18 01/22/18 04:00 04:11 04:20 Temperature 100.1 F H Pulse Rate 98 H 101 H 101 H Pulse Rate [ Anterior Bilateral Throughout] Pulse Rate [ 106 H From Monitor] Respiratory 31 H 32 H 30 H Rate Respiratory Rate [Anterior Bilateral Throughout] Respiratory Rate [denies] Blood Pressure 177/116 191/122 191/122 O2 Sat by Pulse 94 91 Oximetry 01/22/18 01/22/18 01/22/18 04:30 04:40 04:50 Temperature Pulse Rate 100 H 101 H 96 H Pulse Rate [ Anterior Bilateral Throughout] Pulse Rate [ From Monitor] Respiratory 31 H 33 H 26 H Rate Respiratory Rate [Anterior Bilateral Throughout] Respiratory Rate [denies] Blood Pressure 193/123 191/122 191/122 O2 Sat by Pulse 93 93 97 Oximetry 01/22/18 01/22/18 01/22/18 05:00 05:10 05:16 Temperature Pulse Rate 98 H 101 H Pulse Rate [ Anterior Bilateral Throughout] Pulse Rate [ From Monitor] Respiratory 32 H 43 H Rate Respiratory Rate [Anterior Bilateral Throughout] Respiratory 40 H Rate [denies] Blood Pressure 164/101 164/101 O2 Sat by Pulse 100 96 Oximetry 01/22/18 01/22/18 01/22/18 05:20 05:30 05:40 Temperature Pulse Rate 105 H 107 H 106 H Pulse Rate [ Anterior Bilateral Throughout] Pulse Rate [ From Monitor] Respiratory 35 H 35 H 35 H Rate Respiratory Rate [Anterior Bilateral Throughout] Respiratory Rate [denies] Blood Pressure 164/101 214/136 214/136 O2 Sat by Pulse 95 94 94 Oximetry 01/22/18 01/22/18 01/22/18 05:50 06:00 06:10 Temperature Pulse Rate 106 H 106 H 105 H Pulse Rate [ Anterior Bilateral Throughout] Pulse Rate [ From Monitor] Respiratory 35 H 34 H 37 H Rate Respiratory Rate [Anterior Bilateral Throughout] Respiratory Rate [denies] Blood Pressure 214/136 214/125 214/125 O2 Sat by Pulse 94 93 92 Oximetry 01/22/18 01/22/18 01/22/18 06:20 06:30 06:40 Temperature Pulse Rate 106 H 105 H 107 H Pulse Rate [ Anterior Bilateral Throughout] Pulse Rate [ From Monitor] Respiratory 35 H 35 H 34 H Rate Respiratory Rate [Anterior Bilateral Throughout] Respiratory Rate [denies] Blood Pressure 214/125 200/114 200/114 O2 Sat by Pulse 95 94 94 Oximetry 01/22/18 01/22/18 01/22/18 06:50 07:00 07:10 Temperature Pulse Rate 108 H 105 H 109 H Pulse Rate [ Anterior Bilateral Throughout] Pulse Rate [ From Monitor] Respiratory 35 H 37 H 33 H Rate Respiratory Rate [Anterior Bilateral Throughout] Respiratory Rate [denies] Blood Pressure 200/114 197/121 198/118 O2 Sat by Pulse 94 92 95 Oximetry 01/22/18 01/22/18 01/22/18 07:20 07:30 07:40 Temperature Pulse Rate 107 H 109 H 108 H Pulse Rate [ Anterior Bilateral Throughout] Pulse Rate [ From Monitor] Respiratory 34 H 32 H 36 H Rate Respiratory Rate [Anterior Bilateral Throughout] Respiratory Rate [denies] Blood Pressure 198/118 199/107 199/107 O2 Sat by Pulse 95 92 90 Oximetry 01/22/18 01/22/18 01/22/18 07:50 08:00 08:10 Temperature 98.4 F Pulse Rate 106 H 104 H 105 H Pulse Rate [ Anterior Bilateral Throughout] Pulse Rate [ From Monitor] Respiratory 34 H 23 32 H Rate Respiratory Rate [Anterior Bilateral Throughout] Respiratory Rate [denies] Blood Pressure 199/107 139/90 139/90 O2 Sat by Pulse 88 96 94 Oximetry 01/22/18 01/22/18 01/22/18 08:20 09:14 09:19 Temperature Pulse Rate 103 H 109 H Pulse Rate [ 107 H Anterior Bilateral Throughout] Pulse Rate [ From Monitor] Respiratory 32 H Rate Respiratory 34 H Rate [Anterior Bilateral Throughout] Respiratory Rate [denies] Blood Pressure 139/90 161/92 O2 Sat by Pulse 94 94 Oximetry 01/22/18 01/22/18 01/22/18 09:45 11:52 11:57 Temperature 99.7 F H Pulse Rate 100 H Pulse Rate [ 95 H Anterior Bilateral Throughout] Pulse Rate [ From Monitor] Respiratory Rate Respiratory 24 Rate [Anterior Bilateral Throughout] Respiratory Rate [denies] Blood Pressure 138/90 O2 Sat by Pulse 97 Oximetry Constitutional: appears uncomfortable Eyes: non-icteric ENT: oropharynx moist, other (ETT 23cm MARGOT) Neck: supple, no lymphadenopathy, no JVD, other (no thyromegaly) Effort: mildly labored Ascultation: Bilateral: diminished breath sounds, rales Percussion: Bilateral: not dull Cardiovascular: regular rate and rhythm, other (no rubs or murmurs) Gastrointestinal: normoactive bowel sounds, soft, non-tender, non-distended, other (no [place] HSM) Integumentary: normal Extremities: no cyanosis, no edema, pink and warm, pulses normal Neurologic: non-focal exam (grossly), motor strength normal and, unable to assess Psychiatric: other (unable to assess) CBC and BMP: 01/24/18 03:40 01/24/18 03:40 ABG, PT/INR, D-dimer: ABG POC ABG pH 7.400 (7.35-7.45) 01/22/18 03:48 POC ABG pCO2 37.5 (35-45) 01/22/18 03:48 POC ABG pO2 65 (80-105) L 01/22/18 03:48 POC ABG HCO3 23.2 01/22/18 03:48 POC ABG Total CO2 24 01/22/18 03:48 POC ABG O2 Sat 92 01/22/18 03:48 PT/INR, D-dimer PT 17.5 Sec. (12.2-14.9) H 01/20/18 07:00 INR 1.35 (0.87-1.13) H 01/20/18 07:00 Abnormal lab findings: Abnormal Labs 01/17/18 01/17/18 01/17/18 15:25 16:15 16:48 WBC MCH Plt Count Seg Neuts % (Manual) Lymphocytes % (Manual) Monocytes % (Manual) Nucleated RBC % Seg Neutrophils # Man Lymphocytes # (Manual) Monocytes # (Manual) PT INR POC ABG pH 7.099 L POC ABG pCO2 58.9 H POC ABG pO2 149 H VBG pH Sodium Chloride Carbon Dioxide BUN Creatinine Glucose POC Glucose < 40 L 121 H Hemoglobin A1c Lactic Acid Calcium Total Bilirubin AST ALT Alkaline Phosphatase C-Reactive Protein Total Protein Albumin 01/17/18 01/17/18 01/17/18 16:54 16:54 16:54 WBC MCH Plt Count Seg Neuts % (Manual) 72.0 H Lymphocytes % (Manual) 3.0 L Monocytes % (Manual) Nucleated RBC % Seg Neutrophils # Man Lymphocytes # (Manual) 0.2 L Monocytes # (Manual) PT 18.5 H INR 1.45 H POC ABG pH POC ABG pCO2 POC ABG pO2 VBG pH Sodium 136 L Chloride 97.8 L Carbon Dioxide 16 L BUN 43 H Creatinine 3.3 H Glucose 121 H POC Glucose Hemoglobin A1c Lactic Acid Calcium 6.7 L Total Bilirubin AST ALT Alkaline Phosphatase C-Reactive Protein Total Protein 4.4 L Albumin 2.3 L 01/17/18 01/17/18 01/17/18 16:54 16:54 17:11 WBC MCH Plt Count Seg Neuts % (Manual) Lymphocytes % (Manual) Monocytes % (Manual) Nucleated RBC % Seg Neutrophils # Man Lymphocytes # (Manual) Monocytes # (Manual) PT INR POC ABG pH POC ABG pCO2 POC ABG pO2 VBG pH 7.273 L Sodium Chloride Carbon Dioxide BUN Creatinine Glucose POC Glucose Hemoglobin A1c Lactic Acid 4.70 H* 4.30 H* Calcium Total Bilirubin AST ALT Alkaline Phosphatase C-Reactive Protein Total Protein Albumin 01/17/18 01/17/18 01/17/18 18:02 18:15 19:21 WBC MCH Plt Count Seg Neuts % (Manual) Lymphocytes % (Manual) Monocytes % (Manual) Nucleated RBC % Seg Neutrophils # Man Lymphocytes # (Manual) Monocytes # (Manual) PT INR POC ABG pH 7.177 L POC ABG pCO2 POC ABG pO2 VBG pH Sodium Chloride Carbon Dioxide BUN Creatinine Glucose POC Glucose < 40 L Hemoglobin A1c Lactic Acid 3.00 H* Calcium Total Bilirubin AST ALT Alkaline Phosphatase C-Reactive Protein Total Protein Albumin 01/17/18 01/17/18 01/17/18 22:36 22:36 23:16 WBC MCH Plt Count Seg Neuts % (Manual) Lymphocytes % (Manual) Monocytes % (Manual) Nucleated RBC % Seg Neutrophils # Man Lymphocytes # (Manual) Monocytes # (Manual) PT INR POC ABG pH 7.112 L POC ABG pCO2 50.1 H POC ABG pO2 50 L VBG pH Sodium Chloride Carbon Dioxide BUN Creatinine Glucose POC Glucose Hemoglobin A1c 9.0 H Lactic Acid 5.50 H* Calcium Total Bilirubin AST ALT Alkaline Phosphatase C-Reactive Protein Total Protein Albumin 01/18/18 01/18/18 01/18/18 01:26 03:21 03:21 WBC MCH Plt Count Seg Neuts % (Manual) 27.0 L Lymphocytes % (Manual) 3.0 L Monocytes % (Manual) 14.0 H Nucleated RBC % Seg Neutrophils # Man Lymphocytes # (Manual) 0.3 L Monocytes # (Manual) 1.4 H PT INR POC ABG pH POC ABG pCO2 POC ABG pO2 VBG pH Sodium Chloride Carbon Dioxide BUN Creatinine Glucose POC Glucose 107 H Hemoglobin A1c Lactic Acid 8.00 H* Calcium Total Bilirubin AST ALT Alkaline Phosphatase C-Reactive Protein Total Protein Albumin 01/18/18 01/18/18 01/18/18 03:21 04:40 05:07 WBC MCH Plt Count Seg Neuts % (Manual) Lymphocytes % (Manual) Monocytes % (Manual) Nucleated RBC % Seg Neutrophils # Man Lymphocytes # (Manual) Monocytes # (Manual) PT INR POC ABG pH 7.093 L POC ABG pCO2 31.5 L POC ABG pO2 77 L VBG pH Sodium Chloride 96.9 L Carbon Dioxide 14 L BUN 47 H Creatinine 3.4 H Glucose POC Glucose Hemoglobin A1c Lactic Acid 11.10 H* Calcium 6.4 L Total Bilirubin AST 47 H ALT Alkaline Phosphatase C-Reactive Protein Total Protein 4.3 L Albumin 2.4 L 01/18/18 01/18/18 01/18/18 06:29 07:06 11:44 WBC MCH Plt Count Seg Neuts % (Manual) Lymphocytes % (Manual) Monocytes % (Manual) Nucleated RBC % Seg Neutrophils # Man Lymphocytes # (Manual) Monocytes # (Manual) PT INR POC ABG pH POC ABG pCO2 POC ABG pO2 VBG pH Sodium Chloride Carbon Dioxide BUN Creatinine Glucose POC Glucose 47 L 149 H < 40 L Hemoglobin A1c Lactic Acid Calcium Total Bilirubin AST ALT Alkaline Phosphatase C-Reactive Protein Total Protein Albumin 01/18/18 01/18/18 01/18/18 11:46 14:15 18:01 WBC MCH Plt Count Seg Neuts % (Manual) Lymphocytes % (Manual) Monocytes % (Manual) Nucleated RBC % Seg Neutrophils # Man Lymphocytes # (Manual) Monocytes # (Manual) PT INR POC ABG pH POC ABG pCO2 POC ABG pO2 VBG pH Sodium Chloride Carbon Dioxide BUN Creatinine Glucose POC Glucose 116 H < 40 L Hemoglobin A1c Lactic Acid 10.00 H* Calcium Total Bilirubin AST ALT Alkaline Phosphatase C-Reactive Protein Total Protein Albumin 01/18/18 01/18/18 01/18/18 18:02 23:25 23:27 WBC MCH Plt Count Seg Neuts % (Manual) Lymphocytes % (Manual) Monocytes % (Manual) Nucleated RBC % Seg Neutrophils # Man Lymphocytes # (Manual) Monocytes # (Manual) PT INR POC ABG pH POC ABG pCO2 POC ABG pO2 VBG pH Sodium Chloride Carbon Dioxide BUN Creatinine Glucose POC Glucose 136 H < 40 L < 40 L Hemoglobin A1c Lactic Acid Calcium Total Bilirubin AST ALT Alkaline Phosphatase C-Reactive Protein Total Protein Albumin 01/19/18 01/19/18 01/19/18 04:02 06:50 06:50 WBC 18.5 H MCH Plt Count 136 L Seg Neuts % (Manual) 86.0 H Lymphocytes % (Manual) 4.0 L Monocytes % (Manual) Nucleated RBC % Seg Neutrophils # Man 15.9 H Lymphocytes # (Manual) 0.7 L Monocytes # (Manual) 1.1 H PT 21.3 H INR 1.73 H POC ABG pH POC ABG pCO2 28.3 L POC ABG pO2 57 L VBG pH Sodium Chloride Carbon Dioxide BUN Creatinine Glucose POC Glucose Hemoglobin A1c Lactic Acid Calcium Total Bilirubin AST ALT Alkaline Phosphatase C-Reactive Protein Total Protein Albumin 01/19/18 01/19/18 01/19/18 06:50 08:45 11:17 WBC MCH Plt Count Seg Neuts % (Manual) Lymphocytes % (Manual) Monocytes % (Manual) Nucleated RBC % Seg Neutrophils # Man Lymphocytes # (Manual) Monocytes # (Manual) PT INR POC ABG pH POC ABG pCO2 POC ABG pO2 VBG pH Sodium 135 L Chloride 92.8 L Carbon Dioxide 19 L BUN 31 H Creatinine 2.6 H Glucose POC Glucose 110 H Hemoglobin A1c Lactic Acid 7.90 H* Calcium 7.1 L Total Bilirubin 1.60 H AST 2526 H ALT 1187 H Alkaline Phosphatase 133 H C-Reactive Protein Total Protein 4.8 L Albumin 2.0 L 01/19/18 01/19/18 01/19/18 11:31 22:12 23:34 WBC MCH Plt Count Seg Neuts % (Manual) Lymphocytes % (Manual) Monocytes % (Manual) Nucleated RBC % Seg Neutrophils # Man Lymphocytes # (Manual) Monocytes # (Manual) PT INR POC ABG pH POC ABG pCO2 31.6 L POC ABG pO2 59 L VBG pH Sodium Chloride Carbon Dioxide BUN Creatinine Glucose POC Glucose 131 H 53 L Hemoglobin A1c Lactic Acid Calcium Total Bilirubin AST ALT Alkaline Phosphatase C-Reactive Protein Total Protein Albumin 01/20/18 01/20/18 01/20/18 05:18 05:18 05:19 WBC 19.7 H MCH 27 L Plt Count 84 L Seg Neuts % (Manual) 84.0 H Lymphocytes % (Manual) 2.0 L Monocytes % (Manual) 8.0 H Nucleated RBC % Seg Neutrophils # Man 16.5 H Lymphocytes # (Manual) 0.4 L Monocytes # (Manual) 1.6 H PT INR POC ABG pH POC ABG pCO2 POC ABG pO2 VBG pH Sodium 136 L Chloride 96.9 L Carbon Dioxide 17 L BUN 65 H Creatinine 4.1 H D Glucose 104 H POC Glucose 125 H Hemoglobin A1c Lactic Acid Calcium 7.1 L Total Bilirubin 1.60 H AST 1702 H ALT 1141 H Alkaline Phosphatase 172 H C-Reactive Protein Total Protein 5.0 L Albumin 1.7 L 01/20/18 01/20/18 01/20/18 07:00 11:48 13:54 WBC MCH Plt Count Seg Neuts % (Manual) Lymphocytes % (Manual) Monocytes % (Manual) Nucleated RBC % Seg Neutrophils # Man Lymphocytes # (Manual) Monocytes # (Manual) PT 17.5 H INR 1.35 H POC ABG pH POC ABG pCO2 POC ABG pO2 VBG pH Sodium Chloride Carbon Dioxide BUN Creatinine Glucose POC Glucose 109 H Hemoglobin A1c Lactic Acid Calcium Total Bilirubin AST ALT Alkaline Phosphatase C-Reactive Protein 37.50 H Total Protein Albumin 01/20/18 01/20/18 01/20/18 17:28 17:51 20:50 WBC MCH Plt Count Seg Neuts % (Manual) Lymphocytes % (Manual) Monocytes % (Manual) Nucleated RBC % Seg Neutrophils # Man Lymphocytes # (Manual) Monocytes # (Manual) PT INR POC ABG pH POC ABG pCO2 POC ABG pO2 VBG pH Sodium Chloride Carbon Dioxide BUN Creatinine Glucose POC Glucose 140 H Hemoglobin A1c Lactic Acid 2.70 H* 2.30 H* Calcium Total Bilirubin AST ALT Alkaline Phosphatase C-Reactive Protein Total Protein Albumin 01/20/18 01/20/18 01/21/18 23:55 Unknown 00:12 WBC MCH Plt Count Seg Neuts % (Manual) Lymphocytes % (Manual) Monocytes % (Manual) Nucleated RBC % Seg Neutrophils # Man Lymphocytes # (Manual) Monocytes # (Manual) PT INR POC ABG pH POC ABG pCO2 POC ABG pO2 VBG pH Sodium Chloride Carbon Dioxide BUN Creatinine Glucose POC Glucose 149 H 134 H Hemoglobin A1c Lactic Acid 2.50 H* Calcium Total Bilirubin AST ALT Alkaline Phosphatase C-Reactive Protein Total Protein Albumin 01/21/18 01/21/18 01/21/18 04:27 05:00 05:00 WBC 21.7 H MCH 27 L Plt Count 67 L Seg Neuts % (Manual) 71.0 H Lymphocytes % (Manual) 9.0 L Monocytes % (Manual) Nucleated RBC % 4.0 H Seg Neutrophils # Man 15.4 H Lymphocytes # (Manual) Monocytes # (Manual) PT INR POC ABG pH POC ABG pCO2 33.8 L POC ABG pO2 72 L VBG pH Sodium Chloride Carbon Dioxide 21 L BUN 71 H Creatinine 4.1 H Glucose 149 H POC Glucose Hemoglobin A1c Lactic Acid Calcium 7.5 L Total Bilirubin AST 494 H ALT 780 H Alkaline Phosphatase 151 H C-Reactive Protein Total Protein 4.9 L Albumin 1.9 L 01/21/18 01/21/18 01/21/18 05:00 05:18 12:20 WBC MCH Plt Count Seg Neuts % (Manual) Lymphocytes % (Manual) Monocytes % (Manual) Nucleated RBC % Seg Neutrophils # Man Lymphocytes # (Manual) Monocytes # (Manual) PT INR POC ABG pH POC ABG pCO2 POC ABG pO2 VBG pH Sodium Chloride Carbon Dioxide BUN Creatinine Glucose POC Glucose 132 H 158 H Hemoglobin A1c Lactic Acid 2.10 H* Calcium Total Bilirubin AST ALT Alkaline Phosphatase C-Reactive Protein Total Protein Albumin 01/21/18 01/21/18 01/22/18 18:07 23:40 03:48 WBC MCH Plt Count Seg Neuts % (Manual) Lymphocytes % (Manual) Monocytes % (Manual) Nucleated RBC % Seg Neutrophils # Man Lymphocytes # (Manual) Monocytes # (Manual) PT INR POC ABG pH POC ABG pCO2 POC ABG pO2 65 L VBG pH Sodium Chloride Carbon Dioxide BUN Creatinine Glucose POC Glucose 143 H 136 H Hemoglobin A1c Lactic Acid Calcium Total Bilirubin AST ALT Alkaline Phosphatase C-Reactive Protein Total Protein Albumin 01/22/18 01/22/18 01/22/18 04:10 04:10 05:56 WBC 24.9 H MCH 27 L Plt Count 80 L Seg Neuts % (Manual) Lymphocytes % (Manual) Monocytes % (Manual) Nucleated RBC % Seg Neutrophils # Man Lymphocytes # (Manual) Monocytes # (Manual) PT INR POC ABG pH POC ABG pCO2 POC ABG pO2 VBG pH Sodium Chloride 97.7 L Carbon Dioxide BUN 72 H Creatinine 3.6 H Glucose 145 H POC Glucose 139 H Hemoglobin A1c Lactic Acid Calcium 7.3 L Total Bilirubin AST 146 H ALT 547 H Alkaline Phosphatase C-Reactive Protein Total Protein 5.2 L Albumin 2.3 L 01/22/18 11:30 WBC MCH Plt Count Seg Neuts % (Manual) Lymphocytes % (Manual) Monocytes % (Manual) Nucleated RBC % Seg Neutrophils # Man Lymphocytes # (Manual) Monocytes # (Manual) PT INR POC ABG pH POC ABG pCO2 POC ABG pO2 VBG pH Sodium Chloride Carbon Dioxide BUN Creatinine Glucose POC Glucose 156 H Hemoglobin A1c Lactic Acid Calcium Total Bilirubin AST ALT Alkaline Phosphatase C-Reactive Protein Total Protein Albumin Chest x-ray: image reviewed (ETT riding a little high; subtle left lung infiltrate / effusion) Allied health notes reviewed: RT
--- NOTE | 2018-01-22 13:36 | Progress Note ---
Assessment and Plan Assessment: 1) Severe sepsis with septic shock and MODS: shock resolved, still low fever and worsening leukocytosis. Etiology most likely unclear. DDx: pneumonia with para-pneumonic effusion ? pelvic collections? PE. CRP=37 -blood cx negative -legs US neg for DVT 2) Acute respiratory failure 3) Presumed pneumonia with large left pleural effusion: -repeat CXR - decreased effusion -TA pending 4) JANESSA: worsening now on HD 5) Presumed ? drug abuse 6) DM-poorly controlled 7) Bilateral fingers ischemic changes: from pressors ? 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 flushing 11) Acute encephalopathy 12) Pelvic collections x 3: ? etiology Plan: -follow-up tracheal asp cultures and procalcitonin - pending -continue vancomycin and zosyn renally dosed - day 5 Thank you for your consultation, will follow up with you. Michaela Parekh MD Infectious Diseases Specialist [facility] ([facility]) M [phone] O [phone] Subjective Date of service: 01/22/18 Principal diagnosis: Acute hypoxic respiratory failure, severe sepsis with shock , encephalopathy Interval history: Remains critically ill, intubated, sedated, tmax 100.1 Microbiology: Blood cultures: 01/17 neg 01/20 ngtd Urine cultures: Respiratory cultures: TA 01/17 ngtd / Gram stain - many GPC in chains Current Antimicrobials: Zosyn 01/18 Vancomycin 01/18 Objective - Exam Narrative Exam: General appearance: sedated on the vent Eyes: anicteric sclerae, moist conjunctivae; no lid-lag; PERRLA HENT: Atraumatic; oropharynx clear +ETT +NGT Neck: Trachea midline; supple, no thyromegaly or lymphadenopathy Lungs: juan rhonchi CV: tachy Abdomen: Soft, non-tender; distended Extremities: No peripheral edema or extremity lymphadenopathy Skin: mild erythematous macular rash on chest and upper arms. +bilateral multiple fingers purpuric changes Psych: sedated Neuro: sedated Lines: right fem vascath, right IJ TLC - Constitutional Vitals: Vital Signs Temp Pulse Resp BP Pulse Ox 99.7 F H 100 H 24 138/90 97 01/22/18 11:52 01/22/18 11:57 01/22/18 09:45 01/22/18 11:57 01/22/18 11:57 Temperature -Last 24 Hours Temperature 99.7 F Temperature 98.4 F Temperature 100.1 F Temperature 99.1 F Temperature 97.9 F Temperature 98.9 F Temperature 98.9 F Temperature 98.9 F - Labs CBC & Chem 7: 01/22/18 04:10 01/22/18 04:10 Labs: Abnormal lab results 01/21/18 01/21/18 01/21/18 Range/Units 12:20 18:07 23:40 WBC (4.5-11.0) K/mm3 MCH (28-32) pg Plt Count (140-440) K/mm3 POC ABG pO2 (80-105) Chloride (98-107) mmol/L BUN (7-17) mg/dL Creatinine (0.7-1.2) mg/dL Glucose (65-100) mg/dL POC Glucose 158 H 143 H 136 H (70-105) Calcium (8.4-10.2) mg/dL AST (5-40) units/L ALT (7-56) units/L Total Protein (6.3-8.2) g/dL Albumin (3.9-5) g/dL 01/22/18 01/22/18 01/22/18 Range/Units 03:48 04:10 04:10 WBC 24.9 H (4.5-11.0) K/mm3 MCH 27 L (28-32) pg Plt Count 80 L (140-440) K/mm3 POC ABG pO2 65 L (80-105) Chloride 97.7 L (98-107) mmol/L BUN 72 H (7-17) mg/dL Creatinine 3.6 H (0.7-1.2) mg/dL Glucose 145 H (65-100) mg/dL POC Glucose (70-105) Calcium 7.3 L (8.4-10.2) mg/dL AST 146 H (5-40) units/L ALT 547 H (7-56) units/L Total Protein 5.2 L (6.3-8.2) g/dL Albumin 2.3 L (3.9-5) g/dL 01/22/18 01/22/18 Range/Units 05:56 11:30 WBC (4.5-11.0) K/mm3 MCH (28-32) pg Plt Count (140-440) K/mm3 POC ABG pO2 (80-105) Chloride (98-107) mmol/L BUN (7-17) mg/dL Creatinine (0.7-1.2) mg/dL Glucose (65-100) mg/dL POC Glucose 139 H 156 H (70-105) Calcium (8.4-10.2) mg/dL AST (5-40) units/L ALT (7-56) units/L Total Protein (6.3-8.2) g/dL Albumin (3.9-5) g/dL
--- NOTE | 2018-01-22 14:19 | Progress Note ---
Assessment and Plan Acute respiratory failure intubated on mechanical ventilation Pleural effusion, left History of active methamphetamine use Family lost contact with patient on Saturday. She was found unresponsive on saturday Daughter concerned about the time lapse and anticipating grave neurological prognosis History of pacemaker insertion in 2008 post PCI The pacemaker has never been checked since the. Family was told that battery is depleted and PPM is non-functional Tele is showing SR, sinus tach with no pauses History of CAD s/p PCI in 2008 History of heavy tobacco use Patient smokes 3 packs per day History of uncontrolled hypertension Acute renal failure requiring hemodialysis Cardiomyopathy, LVEF 30-35% Pneumonia/sepsis/leukocytosis/thrombocytopenia Conservative cardiac management. Subjective Date of service: 01/22/18 Principal diagnosis: Acute hypoxic respiratory failure, severe sepsis with shock , encephalopathy Interval history: Remains intubated on mechanical ventilation. Noted febrile today. Objective Vital Signs Temp Pulse Pulse Pulse Resp Resp Resp 01/22/18 11:57 100 H 01/22/18 11:52 99.7 F H 01/22/18 09:45 95 H 24 01/22/18 09:19 107 H 34 H 01/22/18 09:14 109 H 01/22/18 08:20 103 H 32 H 01/22/18 08:10 105 H 32 H 01/22/18 08:00 98.4 F 104 H 23 01/22/18 07:50 106 H 34 H 01/22/18 07:40 108 H 36 H 01/22/18 07:30 109 H 32 H 01/22/18 07:20 107 H 34 H 01/22/18 07:10 109 H 33 H 01/22/18 07:00 105 H 37 H 01/22/18 06:50 108 H 35 H 01/22/18 06:40 107 H 34 H 01/22/18 06:30 105 H 35 H 01/22/18 06:20 106 H 35 H 01/22/18 06:10 105 H 37 H 01/22/18 06:00 106 H 34 H 01/22/18 05:50 106 H 35 H 01/22/18 05:40 106 H 35 H 01/22/18 05:30 107 H 35 H 01/22/18 05:20 105 H 35 H 01/22/18 05:16 40 H 01/22/18 05:10 101 H 43 H 01/22/18 05:00 98 H 32 H 01/22/18 04:50 96 H 26 H 18 04:40 101 H 33 H 01/22/18 04:30 100 H 31 H 01/22/18 04:20 101 H 30 H 01/22/18 04:11 101 H 32 H 01/22/18 04:00 100.1 F H 98 H 106 H 31 H 01/22/18 03:51 96 H 30 H 01/22/18 03:42 101 H 01/22/18 03:41 97 H 32 H 01/22/18 03:30 99 H 25 H 01/22/18 03:21 101 H 33 H 01/22/18 03:11 99 H 30 H 01/22/18 03:00 100 H 35 H 01/22/18 02:51 101 H 32 H 01/22/18 02:41 100 H 29 H 01/22/18 02:30 98 H 28 H 01/22/18 02:21 102 H 33 H 01/22/18 02:11 98 H 26 H 01/22/18 02:01 99 H 28 H 01/22/18 02:00 100 H 30 H 01/22/18 01:51 101 H 31 H 01/22/18 01:41 90 21 01/22/18 01:30 85 94 H 24 29 H 01/22/18 01:21 85 24 01/22/18 01:15 92 H 29 H 01/22/18 01:11 93 H 28 H 01/22/18 01:00 91 H 27 H 01/22/18 00:50 90 28 H 01/22/18 00:40 92 H 28 H 01/22/18 00:30 102 H 33 H 18 00:20 102 H 33 H 18 00:10 97 H 26 H 18 00:00 99.1 F 101 H 22 18 23:51 99 H 26 H 18 23:41 101 H 30 H 18 23:30 102 H 28 H 18 23:20 103 H 32 H 18 23:10 101 H 29 H 18 23:08 98 H 18 23:00 103 H 32 H 18 22:50 101 H 27 H 03/13/18 22:40 102 H 30 H 03/13/18 22:30 101 H 29 H 03/13/18 22:20 150 H 32 H 03/13/18 22:10 103 H 29 H 03/13/18 22:00 100 H 100 H 30 H 03/13/18 21:50 98 H 28 H 03/13/18 21:40 94 H 24 03/13/18 21:30 96 H 27 H 03/13/18 21:20 94 H 24 03/13/18 21:10 98 H 26 H 03/13/18 21:00 97 H 27 H 03/13/18 20:50 98 H 29 H 03/13/18 20:40 99 H 27 H 03/13/18 20:30 100 H 28 H 03/13/18 20:20 99 H 27 H 03/13/18 20:10 96 H 24 03/13/18 20:02 97.9 F 878 H 24 03/13/18 20:00 98.9 F 93 H 93 H 28 H 03/13/18 19:50 87 24 03/13/18 19:45 91 H 03/13/18 19:40 85 24 03/13/18 19:30 82 24 03/13/18 19:20 91 H 99 H 25 H 24 03/13/18 19:15 83 03/13/18 19:10 88 24 03/13/18 19:04 96 H 97 H 24 03/13/18 19:00 93 H 26 H 03/13/18 18:50 94 H 23 03/13/18 18:45 96 H 03/13/18 18:40 93 H 27 H 03/13/18 18:35 92 H 03/13/18 18:30 90 25 H 03/13/18 18:20 91 H 25 H 03/13/18 18:15 92 H 03/13/18 18:10 90 25 H 03/13/18 18:03 95 H 26 H 03/13/18 18:00 95 H 26 H 03/13/18 17:50 92 H 19 03/13/18 17:45 92 H 03/13/18 17:40 94 H 28 H 03/13/18 17:30 91 H 27 H 03/13/18 17:20 94 H 25 H 03/13/18 17:15 94 H 18 17:10 89 24 18 17:00 90 27 H 18 16:50 90 24 01/21/18 16:46 98.9 F 94 H 27 H 18 16:45 54 L 18 16:40 94 H 27 H 01/21/18 16:30 95 H 30 H 01/21/18 16:20 89 26 H 01/21/18 16:10 98.9 F 92 H 25 H 01/21/18 16:00 95 H 96 H 25 H 13/18 15:50 92 H 29 H 13/18 15:46 92 H 0313/18 15:40 93 H 24 01/21/18 15:30 97 H 28 H 01/21/18 15:20 96 H 29 H 01/21/18 15:10 94 H 28 H 01/21/18 15:00 89 25 H 01/21/18 14:50 93 H 28 H 18 14:40 90 24 01/21/18 14:34 98 H 24 18 14:30 83 24 18 14:28 94 H 24 01/21/18 14:20 94 H 27 H BP Pulse Ox 01/22/18 11:57 138/90 97 01/22/18 11:52 01/22/18 09:45 01/22/18 09:19 01/22/18 09:14 161/92 94 01/22/18 08:20 139/90 94 01/22/18 08:10 139/90 94 01/22/18 08:00 139/90 96 01/22/18 07:50 199/107 88 01/22/18 07:40 199/107 90 01/22/18 07:30 199/107 92 01/22/18 07:20 198/118 95 01/22/18 07:10 198/118 95 01/22/18 07:00 197/121 92 18 06:50 200/114 94 01/22/18 06:40 200/114 94 18 06:30 200/114 94 14 06:20 214/125 95 01/22/18 06:10 214/125 92 03/14/18 06:00 214/125 93 03/14/18 05:50 214/136 94 03/14/18 05:40 214/136 94 14/18 05:30 214/136 94 14/18 05:20 164/101 95 0314/18 05:16 1418 05:10 164/101 96 14/18 05:00 164/101 100 1418 04:50 191/122 97 1418 04:40 191/122 93 1418 04:30 193/123 93 14/18 04:20 191/122 18 04:11 191/122 91 1418 04:00 177/116 94 1418 03:51 170/110 96 1418 03:42 170/110 94 1418 03:41 170/110 93 1418 03:30 174/114 100 14/18 03:21 166/121 93 1418 03:11 166/121 95 18 03:00 160/112 1418 02:51 160/112 92 1418 02:41 160/112 90 14/18 02:30 160/112 97 1418 02:21 150/102 1418 02:11 150/102 97 1418 02:01 150/102 97 1418 02:00 97 1418 01:51 101/69 97 14/18 01:41 101/69 97 1418 01:30 101/69 97 1418 01:21 122/79 97 14/18 01:15 18 01:11 122/79 96 14/18 01:00 122/79 96 14/18 00:50 177/117 95 0314/18 00:40 177/117 96 14/18 00:30 177/117 90 14/18 00:20 169/113 92 14/18 00:10 169/113 97 /14/18 00:00 169/113 98 01/21/18 23:51 163/104 97 18 23:41 163/104 99 03/13/18 23:30 163/104 96 01/21/18 23:20 159/108 96 01/21/18 23:10 167/105 96 01/21/18 23:08 160/99 98 01/21/18 23:00 156/105 97 18 22:50 153/106 97 01/21/18 22:40 160/99 97 01/21/18 22:30 153/93 98 01/21/18 22:20 150/118 99 01/21/18 22:10 145/109 98 01/21/18 22:00 158/102 97 01/21/18 21:50 150/93 98 01/21/18 21:40 144/63 97 01/21/18 21:30 144/63 98 01/21/18 21:20 140/84 97 01/21/18 21:10 129/88 97 01/21/18 21:00 139/81 97 01/21/18 20:50 140/92 97 01/21/18 20:40 141/84 97 01/21/18 20:30 137/88 96 01/21/18 20:20 127/88 97 01/21/18 20:10 119/89 97 01/21/18 20:02 101/68 01/21/18 20:00 113/82 100 01/21/18 19:50 103/68 92 18 19:45 103/68 18 19:40 101/68 18 19:30 111/73 18 19:20 117/87 96 01/21/18 19:15 104/46 01/21/18 19:10 141/90 100 18 19:04 141/90 97 01/21/18 19:00 141/90 97 18 18:50 137/93 97 18 18:45 137/93 18 18:40 138/91 98 01/21/18 18:35 135/88 18 18:30 135/88 97 18 18:20 135/90 97 18 18:15 145/80 18 18:10 145/80 98 18 18:03 96 01/21/18 18:00 145/95 96 01/21/18 17:50 145/89 96 01/21/18 17:45 145/89 01/21/18 17:40 143/98 97 01/21/18 17:30 135/99 99 01/21/18 17:20 141/100 98 01/21/18 17:15 131/90 01/21/18 17:10 131/90 97 01/21/18 17:00 126/86 99 01/21/18 16:50 117/81 100 01/21/18 16:46 147/96 01/21/18 16:45 129/87 01/21/18 16:40 147/96 97 01/21/18 16:30 137/92 98 01/21/18 16:20 117/78 99 01/21/18 16:10 120/79 98 01/21/18 16:00 130/87 97 01/21/18 15:50 122/80 97 01/21/18 15:46 96 01/21/18 15:40 126/85 99 01/21/18 15:30 139/90 93 01/21/18 15:20 129/84 98 01/21/18 15:10 131/84 98 01/21/18 15:00 121/82 01/21/18 14:50 130/91 98 01/21/18 14:40 129/84 98 01/21/18 14:34 01/21/18 14:30 109/72 99 01/21/18 14:28 01/21/18 14:20 135/88 99 - Physical Examination General: Other (intubated on the vent) Cardiac: Positive: Tachycardia - Labs and Meds Cardiac Enzymes 01/22/18 Range/Units 04:10 AST 146 H (5-40) units/L CBC 01/22/18 Range/Units 04:10 WBC 24.9 H (4.5-11.0) K/mm3 RBC 4.42 (3.65-5.03) M/mm3 Hgb 12.0 (10.1-14.3) gm/dl Hct 37.0 (30.3-42.9) % Plt Count 80 L (140-440) K/mm3 Comprehensive Metabolic Panel 01/22/18 Range/Units 04:10 Sodium 138 (137-145) mmol/L Potassium 4.7 (3.6-5.0) mmol/L Chloride 97.7 L (98-107) mmol/L Carbon Dioxide 22 (22-30) mmol/L BUN 72 H (7-17) mg/dL Creatinine 3.6 H (0.7-1.2) mg/dL Glucose 145 H (65-100) mg/dL Calcium 7.3 L (8.4-10.2) mg/dL AST 146 H (5-40) units/L ALT 547 H (7-56) units/L Alkaline Phosphatase 123 (35-129) units/L Total Protein 5.2 L (6.3-8.2) g/dL Albumin 2.3 L (3.9-5) g/dL - Allied health notes Allied health notes reviewed: RT
[2018-01-22 21:07] LABS: ANA Screen, IFA Negative (Negative)
[2018-01-23] MEDS: HumaLOG SUB-Q SCH ×6 (00:31→20:22)
[2018-01-23] MEDS: SODIUM CHLORIDE FLUSH SYRINGE 10 ML IV SCH ×4 (00:34→21:59)
[2018-01-23] MEDS: DUONEB *Not for PRN Use IH SCH ×4 (01:41→19:42)
[2018-01-23] MEDS: SODIUM CHLORIDE FLUSH SYRINGE 10 ML IV PRN (02:18)
--- NOTE | 2018-01-23 03:23 | XRay Report ---
FINAL REPORT EXAM: XR CHEST 1V AP HISTORY: follow up respiratory failure COMPARISON: January 22, 2018 FINDINGS: Frontal view(s) of the chest obtained. Stable mild cardiac enlargement. Lines and tubes unchanged. Stable discoid atelectasis right midlung. Stable hazy opacity left lung base and small effusion. No pneumothorax. IMPRESSION: Stable hazy opacity left lung base and small effusion. Discoid atelectasis right midlung is unchanged.
[2018-01-23] MEDS: APRESOLINE IV PRN (03:57)
[2018-01-23] MEDS: MORPHINE IV PRN ×4 (04:02→22:10)
[2018-01-23] MEDS ORDERED: HumaLOG SUB-Q ONE (06:42)
--- NOTE | 2018-01-23 08:39 | Progress Note ---
Assessment and Plan Assessment and plan: 62-year-old admitted with hx of htn, polysubstance drug abuse per family, admitted after she was found unresponsive found in the bathroom pf a friends home, noted with severe lactic acidosis, hypotensive on vasopressors, hypercapeniac respiratory failure requiring intubation . //Acute hypercapenic respiratory failure - Likely from drug abuse and aspiration - VAP bundle -on vent support //Large Left Pleural Effusion - Will discuss with Pulmonary about Thoracentesis //Severe Sepsis with septic shock likely from aspiration pneumonia-POA -Recurrent fever possible due to the infection vs Central - Left lobar infiltrate on admission - We'll continue broad-spectrum antibiotic for now - negative blood culture, sputum cx pending //Shock required pressors - likely from sepsis vs cardiogenic - Continue IV antibiotics - off pressors today. required 3 pressors on admission //Decompensated acute CHF - EF 30-35% on ed echo - will consult cardiology - cautious use of iv fluid //Febrile illness, repeat cx, cont abx, consult ID ?pelvic mass, Discussed with POLICE SPECIALIST likely cyst. and Pelvic ultrasound //JANESSA likely due to tumor necrosis from severe sepsis - monitor renal function, now on HD - Avoid nephrotoxins, nephrology consulted //History of cocaine abuse, UDS pending //Acute encephalopathy - Multifactorial, likely from drug abuse vs severe sepsis versus anoxic encephalopathy - CT head no acute finding - pt is off sedation since DAY prior to yesterday -Pacemaker precludes getting MRI brain -May obtain neurology if no clinical improvement //Lactic acidosis - Likely from severe sepsis and along with decline in renal function - placed on bicarbonate drip inittially, now on HD // Elevated LFTs- shock liver syndrome - Likely from severe hypotension causing shock liver - Continue to monitor // Coagulopathy, due to severe sepsis and abnormal liver function // Bilateral finger Ischemic Changes possible secondary to pressors but potentiated by hx of from drug abuse, will get vascular consult // FEN - start on TF, D5Ns @ 42ml/h Disposition: Continue ICU monitoring, very poor prognosis. Discussed management and prognosis in detail with the daughter, also discussed with pluck trimmer and ID lATE ENTRY The high probability of a clinically significant, sudden or life threatening deterioration of the [multiorgan] system(s) required my full and direct attention, intervention and personal management. The aggregate critical care time was [35] minutes. This time is in addition to time spent performing reported procedures but includes the following: [x] Data Review and interpretation [x] Patient assessment and monitoring of vital signs [x] Documentation [x] Medication orders and management History Interval history: Patient seen and examined, remains on mechanical ventilation, unreponsive despite being off sedation. Daughter at bedside Hospitalist Physical - Physical exam Narrative exam: GENERAL: Elderly WF lying on bed intubated and unresponsive HEENT: Normocephalic. Atraumatic. No conjunctival congestion or icterus. Patient has dry mucous membranes. NECK: Supple. Trachea midline. ET tube in place CHEST/LUNGS: Clear to auscultated bilaterally, breathing under vent. Positive for a few wheezes, crackles or rhonchi. HEART/CARDIOVASCULAR: tachycardic. S1 and S2 positive. ABDOMEN: Abdomen is soft, nontender. Patient has normal bowel sounds. SKIN: There is no rash. Warm and dry. NEURO: Sedated, does not follow any command MUSCULOSKELETAL: No joint effusion EXTRIMITY: No edema, cyanosis of the toes and fingers possible ischmeia, fingers much worse PSYCH: Unable to assess - Constitutional Vitals: Temp Pulse Resp BP Pulse Ox 98.9 F 99 H 26 H 186/96 87 01/23/18 04:00 01/23/18 06:11 01/23/18 06:11 01/23/18 06:11 01/23/18 06:11 General appearance: Present: other (intubated) Results - Labs CBC & Chem 7: 01/22/18 04:10 01/22/18 04:10 Labs: Laboratory Last Values WBC 24.9 K/mm3 (4.5-11.0) H 01/22/18 04:10 RBC 4.42 M/mm3 (3.65-5.03) 01/22/18 04:10 Hgb 12.0 gm/dl (10.1-14.3) 01/22/18 04:10 Hct 37.0 % (30.3-42.9) 01/22/18 04:10 MCV 84 fl (79-97) 01/22/18 04:10 MCH 27 pg (28-32) L 01/22/18 04:10 MCHC 32 % (30-34) 01/22/18 04:10 RDW 15.0 % (13.2-15.2) 01/22/18 04:10 Plt Count 80 K/mm3 (140-440) L 01/22/18 04:10 Lymph % (Auto) Automotive Electrical Helper 01/17/18 16:54 Smith % (Auto) Automotive Electrical Helper 01/17/18 16:54 Eos % (Auto) [employer]otive Electrical Helper 01/17/18 16:54 Baso % (Auto) [employer] Electrical Helper 01/17/18 16:54 Lymph # [employer] Electrical Helper 01/17/18 16:54 Smith # Automotive Electrical Helper 01/17/18 16:54 Eos # Automotive Electrical Helper 01/17/18 16:54 Baso # Automotive Electrical Helper 01/17/18 16:54 Add Manual Diff Complete 01/21/18 05:00 Total Counted 100 01/21/18 05:00 Seg Neutrophils % [employer] Electrical Helper 01/21/18 05:00 Seg Neuts % (Manual) 71.0 % (40.0-70.0) H 01/21/18 05:00 Band Neutrophils % 18.0 % 01/21/18 05:00 Lymphocytes % (Manual) 9.0 % (13.4-35.0) L 01/21/18 05:00 Reactive Lymphs % (Man) 0 % 01/21/18 05:00 Monocytes % (Manual) 2.0 % (0.0-7.3) 01/21/18 05:00 Eosinophils % (Manual) 0 % (0.0-4.3) 01/21/18 05:00 Basophils % (Manual) 0 % (0.0-1.8) 01/21/18 05:00 Metamyelocytes % 0 % 01/21/18 05:00 Myelocytes % 0 % 01/21/18 05:00 Promyelocytes % 0 % 01/21/18 05:00 Blast Cells % 0 % 01/21/18 05:00 Nucleated RBC % 4.0 % (0.0-0.9) H 01/21/18 05:00 Seg Neutrophils # [employer]otive Electrical Helper 01/17/18 16:54 Seg Neutrophils # Man 15.4 K/mm3 (1.8-7.7) H 01/21/18 05:00 Band Neutrophils # 3.9 K/mm3 01/21/18 05:00 Lymphocytes # (Manual) 2.0 K/mm3 (1.2-5.4) 01/21/18 05:00 Abs React Lymphs (Man) 0.0 K/mm3 01/21/18 05:00 Monocytes # (Manual) 0.4 K/mm3 (0.0-0.8) 01/21/18 05:00 Eosinophils # (Manual) 0.0 K/mm3 (0.0-0.4) 01/21/18 05:00 Basophils # (Manual) 0.0 K/mm3 (0.0-0.1) 01/21/18 05:00 Metamyelocytes # 0.0 K/mm3 01/21/18 05:00 Myelocytes # 0.0 K/mm3 01/21/18 05:00 Promyelocytes # 0.0 K/mm3 01/21/18 05:00 Blast Cells # 0.0 K/mm3 01/21/18 05:00 WBC Morphology Not Reportable 01/21/18 05:00 Hypersegmented Neuts Not Reportable 01/21/18 05:00 Hyposegmented Neuts Not Reportable 01/21/18 05:00 Hypogranular Neuts Not Reportable 01/21/18 05:00 Smudge Cells Not Reportable 01/21/18 05:00 Toxic Granulation Not Reportable 01/21/18 05:00 Toxic Vacuolation Not Reportable 01/21/18 05:00 Dohle Bodies Rare 01/21/18 05:00 Pelger-Huet Anomaly Not Reportable 01/21/18 05:00 Opal Rods Not Reportable 01/21/18 05:00 Platelet Estimate Consistent w auto 01/21/18 05:00 Clumped Platelets Not Reportable 01/21/18 05:00 Plt Clumps, EDTA Not Reportable 01/21/18 05:00 Large Platelets Not Reportable 01/21/18 05:00 Giant Platelets Not Reportable 01/21/18 05:00 Platelet Satelliting Not Reportable 01/21/18 05:00 Plt Morphology Comment Not Reportable 01/21/18 05:00 RBC Morphology Not Reportable 01/21/18 05:00 Dimorphic RBCs Not Reportable 01/21/18 05:00 Polychromasia Not Reportable 01/21/18 05:00 Hypochromasia Not Reportable 01/21/18 05:00 Poikilocytosis Not Reportable 01/21/18 05:00 Anisocytosis Not Reportable 01/21/18 05:00 Microcytosis Not Reportable 01/21/18 05:00 Macrocytosis Not Reportable 01/21/18 05:00 Spherocytes Not Reportable 01/21/18 05:00 Pappenheimer Bodies Not Reportable 01/21/18 05:00 Sickle Cells Not Reportable 01/21/18 05:00 Target Cells Not Reportable 01/21/18 05:00 Tear Drop Cells Not Reportable 01/21/18 05:00 Ovalocytes Not Reportable 01/21/18 05:00 Stomatocytes Few 01/21/18 05:00 Helmet Cells Not Reportable 01/21/18 05:00 Frankel-Crum Bodies Not Reportable 01/21/18 05:00 [place] Rings Not Reportable 01/21/18 05:00 Gridley Cells Not Reportable 01/21/18 05:00 Bite Cells Not Reportable 01/21/18 05:00 Crenated Cell Not Reportable 01/21/18 05:00 Elliptocytes Not Reportable 01/21/18 05:00 Acanthocytes (Spur) Not Reportable 01/21/18 05:00 Rouleaux Not Reportable 01/21/18 05:00 Hemoglobin C Crystals Not Reportable 01/21/18 05:00 Schistocytes Not Reportable 01/21/18 05:00 Malaria parasites Not Reportable 01/21/18 05:00 Brock Bodies Not Reportable 01/21/18 05:00 Hem Pathologist Commnt No 01/21/18 05:00 PT 17.5 Sec. (12.2-14.9) H 01/20/18 07:00 INR 1.35 (0.87-1.13) H 01/20/18 07:00 Heparin Anti-Xa, Unfract Negative (Negative) 01/20/18 11:03 POC ABG pH 7.399 (7.35-7.45) 01/23/18 04:39 POC ABG pCO2 31.9 (35-45) L 01/23/18 04:39 POC ABG pO2 62 (80-105) L 01/23/18 04:39 POC ABG HCO3 19.7 01/23/18 04:39 POC ABG Total CO2 21 01/23/18 04:39 POC ABG O2 Sat 92 01/23/18 04:39 POC ABG Base Excess -5 01/23/18 04:39 VBG pH 7.273 (7.320-7.420) L 01/17/18 16:54 FiO2 40 % 01/23/18 04:39 Sodium 138 mmol/L (137-145) 01/22/18 04:10 Potassium 4.7 mmol/L (3.6-5.0) 01/22/18 04:10 Chloride 97.7 mmol/L (98-107) L 01/22/18 04:10 Carbon Dioxide 22 mmol/L (22-30) 01/22/18 04:10 Anion Gap 23 mmol/L 01/22/18 04:10 BUN 72 mg/dL (7-17) H 01/22/18 04:10 Creatinine 3.6 mg/dL (0.7-1.2) H 01/22/18 04:10 Estimated GFR 13 ml/min 01/22/18 04:10 BUN/Creatinine Ratio 20 % 01/22/18 04:10 Glucose 145 mg/dL (65-100) H 01/22/18 04:10 POC Glucose 215 (70-105) H 01/23/18 05:24 Hemoglobin A1c 9.0 % (4-6) H 01/17/18 22:36 Lactic Acid 2.10 mmol/L (0.7-2.0) H* 01/21/18 05:00 Calcium 7.3 mg/dL (8.4-10.2) L 01/22/18 04:10 Total Bilirubin 0.90 mg/dL (0.1-1.2) 01/22/18 04:10 AST 146 units/L (5-40) H 01/22/18 04:10 ALT 547 units/L (7-56) H 01/22/18 04:10 Alkaline Phosphatase 123 units/L (35-129) 01/22/18 04:10 C-Reactive Protein 37.50 mg/dL (0.00-1.30) H 01/20/18 13:54 Total Protein 5.2 g/dL (6.3-8.2) L 01/22/18 04:10 Albumin 2.3 g/dL (3.9-5) L 01/22/18 04:10 Albumin/Globulin Ratio 0.8 % 01/22/18 04:10 Random Vancomycin 12.5 ug/mL (0-40.0) 01/21/18 Unknown ALISA Screen Negative (Negative) 01/20/18 Unknown Heparin-induced Plt Ab Negative (Negative) 01/20/18 11:03 UF Heparin High Dose 0 % Release 01/20/18 11:03 NEGRITA UFH Low Dose 0.1 0 % Release 01/20/18 11:03 NEGRITA UFH Low Dose 0.5 0 % Release 01/20/18 11:03 Hepatitis A IgM Ab Non-reactive (NonReactive) 01/20/18 07:00 Hep Bs Antigen Non-reactive (Negative) 01/20/18 07:00 Hep B Core IgM Ab Non-reactive (NonReactive) 01/20/18 07:00 Hepatitis C Antibody Non-reactive (NonReactive) 01/20/18 07:00 HIV 1&2 Antibody Rapid Non react (Non React) 01/20/18 Unknown HIV P24 Antigen Non react (Non React) 01/20/18 Unknown
--- NOTE | 2018-01-23 09:09 | Progress Note ---
Subjective Principal diagnosis: Acute hypoxic respiratory failure, severe sepsis with shock , encephalopathy Interval history: Patient was seen today for follow-up on multiple renal related issues, she is still intubated Trying to open her eyes but could not when called by her name and squeezed her hand for handshake events of 24 hours noted Vitals labs intake output medications were reviewed Social history: Reviewed Allergies: Reviewed Family history: Reviewed Physical examination HEENT: Oral mucosa moist no pallor or icterus, orally intubated Neck: Supple no JVD Chest: bilateral coarse breath sounds diminished at lung bases CVS: Regular rate and rhythm S1 and S2 heard Abdomen: Soft nontender no suprapubic masses no organomegaly appreciable Extremity: Dry skin less than 1+ peripheral edema Musculoskeletal: No joint effusion noted in knees and ankle Neurological: encephalopathic Dermatology: No petechial rashes Psychiatry: No evidence of any agitation and aggression noted Assessment and plan Acute renal failure in a patient who has been admitted with respiratory failure drug abuse high suspicion for acute kidney injury resulting from acute tubular necrosis given the clinical scenario patient is currently dialysis dependent: We will need to hemodialysis treatment today verbal orders were given to dialysis nurse Madeleine about dialysis as tolerated as the [employer] system was down Labs were reviewed potassium was 4.7BU and 72 creatinine 3.6, worsening leukocytosis renal ultrasound: Unremarkable, cystic mass in pelvis etiology unclear, remains to be defined Pleural effusion: Need to rule out any possibility of empyema pleural tap may be beneficial Worsening thrombocytopenia: Please monitor and follow likely due to sepsis Anemia and renal failure: To monitor and follow Dense encephalopathy: Multifactorial patient trying to open her eyes but could not Respiratory failure currently intubated Hypotension: Currently improving slowly History of cocaine and methamphetamine abuse, chronic per daughter Severe sepsis with multiorgan dysfunction currently being followed by multiple disciplines Aspiration pneumonia large left pleural effusion Poorly controlled diabetes, pacemaker placement, low ejection fraction, Prognosis remains guarded to poor in my opinion from a renal standpoint as well as in general Mortality risk still remains high Objective - Vital Signs Vital signs: Vital Signs - 12hr 01/22/18 01/22/18 01/22/18 21:10 21:20 21:30 Temperature Pulse Rate 83 85 86 Pulse Rate [ Anterior Bilateral Throughout] Respiratory 22 24 24 Rate Respiratory Rate [Anterior Bilateral Throughout] Blood Pressure 106/72 106/72 139/87 O2 Sat by Pulse 98 98 98 Oximetry 01/22/18 01/22/18 01/22/18 21:40 21:50 22:00 Temperature Pulse Rate 86 85 84 Pulse Rate [ Anterior Bilateral Throughout] Respiratory 22 24 24 Rate Respiratory Rate [Anterior Bilateral Throughout] Blood Pressure 139/87 139/87 138/85 O2 Sat by Pulse 99 99 99 Oximetry 01/22/18 01/22/18 01/22/18 22:10 22:20 22:30 Temperature Pulse Rate 87 83 86 Pulse Rate [ Anterior Bilateral Throughout] Respiratory 25 H 25 H 24 Rate Respiratory Rate [Anterior Bilateral Throughout] Blood Pressure 138/85 138/85 136/85 O2 Sat by Pulse 99 99 99 Oximetry 01/22/18 01/22/18 01/22/18 22:40 22:50 23:00 Temperature Pulse Rate 86 87 87 Pulse Rate [ Anterior Bilateral Throughout] Respiratory 24 24 24 Rate Respiratory Rate [Anterior Bilateral Throughout] Blood Pressure 136/85 136/85 141/87 O2 Sat by Pulse 99 99 99 Oximetry 01/22/18 01/22/18 01/22/18 23:10 23:20 23:28 Temperature Pulse Rate 85 83 84 Pulse Rate [ Anterior Bilateral Throughout] Respiratory 24 24 Rate Respiratory Rate [Anterior Bilateral Throughout] Blood Pressure 141/87 141/87 141/87 O2 Sat by Pulse 99 99 98 Oximetry 01/22/18 01/22/18 01/22/18 23:30 23:40 23:42 Temperature Pulse Rate 84 83 83 Pulse Rate [ Anterior Bilateral Throughout] Respiratory 24 25 H 24 Rate Respiratory Rate [Anterior Bilateral Throughout] Blood Pressure 139/86 139/86 139/86 O2 Sat by Pulse 99 98 98 Oximetry 01/22/18 01/23/18 01/23/18 23:50 00:00 00:10 Temperature 98.3 F Pulse Rate 84 80 83 Pulse Rate [ Anterior Bilateral Throughout] Respiratory 24 24 24 Rate Respiratory Rate [Anterior Bilateral Throughout] Blood Pressure 139/86 144/88 144/88 O2 Sat by Pulse 99 97 98 Oximetry 01/23/18 01/23/18 01/23/18 00:20 00:30 00:40 Temperature Pulse Rate 85 83 81 Pulse Rate [ Anterior Bilateral Throughout] Respiratory 18 20 22 Rate Respiratory Rate [Anterior Bilateral Throughout] Blood Pressure 144/88 150/94 150/94 O2 Sat by Pulse 98 98 98 Oximetry 01/23/18 01/23/18 01/23/18 00:50 01:00 01:10 Temperature Pulse Rate 84 91 H 93 H Pulse Rate [ Anterior Bilateral Throughout] Respiratory 23 27 H 27 H Rate Respiratory Rate [Anterior Bilateral Throughout] Blood Pressure 150/94 153/99 153/99 O2 Sat by Pulse 98 Oximetry 01/23/18 01/23/18 01/23/18 01:20 01:30 01:40 Temperature Pulse Rate 93 H 95 H 93 H Pulse Rate [ Anterior Bilateral Throughout] Respiratory 27 H 28 H 22 Rate Respiratory Rate [Anterior Bilateral Throughout] Blood Pressure 153/99 153/99 153/99 O2 Sat by Pulse 97 Oximetry 01/23/18 01/23/18 01/23/18 01:41 01:50 01:56 Temperature Pulse Rate 83 Pulse Rate [ 95 H 97 H Anterior Bilateral Throughout] Respiratory 24 Rate Respiratory 29 H 29 H Rate [Anterior Bilateral Throughout] Blood Pressure 147/84 O2 Sat by Pulse 97 Oximetry 01/23/18 01/23/18 01/23/18 02:00 02:10 02:20 Temperature Pulse Rate 82 95 H 89 Pulse Rate [ Anterior Bilateral Throughout] Respiratory 18 28 H 18 Rate Respiratory Rate [Anterior Bilateral Throughout] Blood Pressure 134/81 134/81 134/81 O2 Sat by Pulse 99 98 96 Oximetry 01/23/18 01/23/18 01/23/18 02:30 02:40 02:50 Temperature Pulse Rate 83 94 H 96 H Pulse Rate [ Anterior Bilateral Throughout] Respiratory 28 H 25 H 24 Rate Respiratory Rate [Anterior Bilateral Throughout] Blood Pressure 157/92 157/92 157/92 O2 Sat by Pulse 99 97 Oximetry 01/23/18 01/23/18 01/23/18 03:00 03:10 03:20 Temperature Pulse Rate 94 H 96 H 92 H Pulse Rate [ Anterior Bilateral Throughout] Respiratory 29 H 30 H 27 H Rate Respiratory Rate [Anterior Bilateral Throughout] Blood Pressure 211/111 211/111 211/111 O2 Sat by Pulse 96 96 96 Oximetry 01/23/18 01/23/18 01/23/18 03:30 03:40 03:50 Temperature Pulse Rate 94 H 96 H 94 H Pulse Rate [ Anterior Bilateral Throughout] Respiratory 26 H 24 29 H Rate Respiratory Rate [Anterior Bilateral Throughout] Blood Pressure 200/113 199/115 199/115 O2 Sat by Pulse 96 96 Oximetry 01/23/18 01/23/18 01/23/18 04:00 04:10 04:20 Temperature 98.9 F Pulse Rate 98 H 96 H 96 H Pulse Rate [ Anterior Bilateral Throughout] Respiratory 30 H 32 H 31 H Rate Respiratory Rate [Anterior Bilateral Throughout] Blood Pressure 199/104 199/104 199/104 O2 Sat by Pulse 98 93 93 Oximetry 01/23/18 01/23/18 01/23/18 04:30 04:34 04:41 Temperature Pulse Rate 99 H 99 H 98 H Pulse Rate [ Anterior Bilateral Throughout] Respiratory 20 25 H Rate Respiratory Rate [Anterior Bilateral Throughout] Blood Pressure 170/104 185/98 O2 Sat by Pulse 94 93 96 Oximetry 01/23/18 01/23/18 01/23/18 04:51 05:00 05:11 Temperature Pulse Rate 98 H 100 H 99 H Pulse Rate [ Anterior Bilateral Throughout] Respiratory 29 H 26 H 33 H Rate Respiratory Rate [Anterior Bilateral Throughout] Blood Pressure 185/98 184/91 184/91 O2 Sat by Pulse 88 Oximetry 01/23/18 01/23/18 01/23/18 05:21 05:30 05:41 Temperature Pulse Rate 98 H 99 H 99 H Pulse Rate [ Anterior Bilateral Throughout] Respiratory 33 H 31 H 33 H Rate Respiratory Rate [Anterior Bilateral Throughout] Blood Pressure 184/91 192/94 192/94 O2 Sat by Pulse 91 90 89 Oximetry 01/23/18 01/23/18 01/23/18 05:51 06:00 06:11 Temperature Pulse Rate 98 H 98 H 99 H Pulse Rate [ Anterior Bilateral Throughout] Respiratory 33 H 33 H 26 H Rate Respiratory Rate [Anterior Bilateral Throughout] Blood Pressure 192/94 186/96 186/96 O2 Sat by Pulse 87 88 87 Oximetry 01/23/18 08:29 Temperature Pulse Rate 94 H Pulse Rate [ 86 Anterior Bilateral Throughout] Respiratory Rate Respiratory 24 Rate [Anterior Bilateral Throughout] Blood Pressure 176/90 O2 Sat by Pulse 97 Oximetry - Lab 01/22/18 04:10 01/22/18 04:10 Most recent lab results Calcium 7.3 mg/dL (8.4-10.2) L 01/22/18 04:10
--- NOTE | 2018-01-23 09:28 | Progress Note ---
Assessment and Plan Assessment and plan: 62-year-old admitted with hx of htn, polysubstance drug abuse per family, admitted after she was found unresponsive found in the bathroom pf a friends home, noted with severe lactic acidosis, hypotensive on vasopressors, hypercapeniac respiratory failure requiring intubation . //Acute hypercapenic respiratory failure - Likely from drug abuse and aspiration - VAP bundle -on vent support //Large Left Pleural Effusion - Will discuss with Pulmonary about Thoracentesis //Severe Sepsis with septic shock likely from aspiration pneumonia-POA -Recurrent fever possible due to the infection vs Central - Left lobar infiltrate on admission - We'll continue broad-spectrum antibiotic for now - negative blood culture, sputum cx pending //Shock required pressors - likely from sepsis vs cardiogenic - Continue IV antibiotics - off pressors today. required 3 pressors on admission //Decompensated acute CHF - EF 30-35% on ed echo - will consult cardiology - cautious use of iv fluid //Febrile illness, repeat cx, cont abx, consult ID ?pelvic mass, Discussed with CHLORINATOR likely cyst. and Pelvic ultrasound //JANESSA likely due to tumor necrosis from severe sepsis - monitor renal function, now on HD - Avoid nephrotoxins, nephrology consulted //History of cocaine abuse, UDS pending //Acute encephalopathy - Multifactorial, likely from drug abuse vs severe sepsis versus anoxic encephalopathy - CT head no acute finding - pt is off sedation since DAY prior to yesterday -Pacemaker precludes getting MRI brain -May obtain neurology if no clinical improvement //Lactic acidosis - Likely from severe sepsis and along with decline in renal function - placed on bicarbonate drip inittially, now on HD // Elevated LFTs- shock liver syndrome - Likely from severe hypotension causing shock liver - Continue to monitor // Coagulopathy, due to severe sepsis and abnormal liver function // Bilateral finger Ischemic Changes possible secondary to pressors but potentiated by hx of from drug abuse, will get vascular consult // FEN - start on TF, D5Ns @ 42ml/h Disposition: Continue ICU monitoring, very poor prognosis. Discussed management and prognosis in detail with the daughter, also discussed with bottle house cleaners supervisor and ID lATE ENTRY The high probability of a clinically significant, sudden or life threatening deterioration of the [multiorgan] system(s) required my full and direct attention, intervention and personal management. The aggregate critical care time was [35] minutes. This time is in addition to time spent performing reported procedures but includes the following: [x] Data Review and interpretation [x] Patient assessment and monitoring of vital signs [x] Documentation [x] Medication orders and management History Interval history: Patient seen and examined, remains on mechanical ventilation, No change Hospitalist Physical - Physical exam Narrative exam: GENERAL: Elderly WF lying on bed intubated and unresponsive HEENT: Normocephalic. Atraumatic. No conjunctival congestion or icterus. Patient has dry mucous membranes. NECK: Supple. Trachea midline. ET tube in place CHEST/LUNGS: Clear to auscultated bilaterally, breathing under vent. Positive for a few wheezes, crackles or rhonchi. HEART/CARDIOVASCULAR: tachycardic. S1 and S2 positive. ABDOMEN: Abdomen is soft, nontender. Patient has normal bowel sounds. SKIN: There is no rash. Warm and dry. NEURO: Sedated, does not follow any command MUSCULOSKELETAL: No joint effusion EXTRIMITY: No edema, cyanosis of the toes and fingers possible ischmeia, fingers much worse PSYCH: Unable to assess - Constitutional Vitals: Temp Pulse Resp BP Pulse Ox 98.9 F 86 24 176/90 97 01/23/18 04:00 01/23/18 08:29 01/23/18 08:29 01/23/18 08:29 01/23/18 08:29 General appearance: Present: other (intubated) Results - Labs CBC & Chem 7: 01/24/18 03:40 01/24/18 03:40 Labs: Laboratory Last Values WBC 24.9 K/mm3 (4.5-11.0) H 01/22/18 04:10 RBC 4.42 M/mm3 (3.65-5.03) 01/22/18 04:10 Hgb 12.0 gm/dl (10.1-14.3) 01/22/18 04:10 Hct 37.0 % (30.3-42.9) 01/22/18 04:10 MCV 84 fl (79-97) 01/22/18 04:10 MCH 27 pg (28-32) L 01/22/18 04:10 MCHC 32 % (30-34) 01/22/18 04:10 RDW 15.0 % (13.2-15.2) 01/22/18 04:10 Plt Count 80 K/mm3 (140-440) L 01/22/18 04:10 Lymph % (Auto) Underground Roof Bolter 01/17/18 16:54 [place] % (Auto) Underground Ro[place]ter 01/17/18 16:54 Eos % (Auto) Underground [place] 01/17/18 16:54 Baso % (Auto) Underground [place] 01/17/18 16:54 Lymph # Underground [place] 01/17/18 16:54 [place] # Underground Roof Bolter 01/17/18 16:54 Eos # Underground Ro[place]ter 01/17/18 16:54 Baso # Underground [place]ter 01/17/18 16:54 Add Manual Diff Complete 01/21/18 05:00 Total Counted 100 01/21/18 05:00 Seg Neutrophils % Underground [place]ter 01/21/18 05:00 Seg Neuts % (Manual) 71.0 % (40.0-70.0) H 01/21/18 05:00 Band Neutrophils % 18.0 % 01/21/18 05:00 Lymphocytes % (Manual) 9.0 % (13.4-35.0) L 01/21/18 05:00 Reactive Lymphs % (Man) 0 % 01/21/18 05:00 Monocytes % (Manual) 2.0 % (0.0-7.3) 01/21/18 05:00 Eosinophils % (Manual) 0 % (0.0-4.3) 01/21/18 05:00 Basophils % (Manual) 0 % (0.0-1.8) 01/21/18 05:00 Metamyelocytes % 0 % 01/21/18 05:00 Myelocytes % 0 % 01/21/18 05:00 Promyelocytes % 0 % 01/21/18 05:00 Blast Cells % 0 % 01/21/18 05:00 Nucleated RBC % 4.0 % (0.0-0.9) H 01/21/18 05:00 Seg Neutrophils # Underground [place] 01/17/18 16:54 Seg Neutrophils # Man 15.4 K/mm3 (1.8-7.7) H 01/21/18 05:00 Band Neutrophils # 3.9 K/mm3 01/21/18 05:00 Lymphocytes # (Manual) 2.0 K/mm3 (1.2-5.4) 01/21/18 05:00 Abs React Lymphs (Man) 0.0 K/mm3 01/21/18 05:00 Monocytes # (Manual) 0.4 K/mm3 (0.0-0.8) 01/21/18 05:00 Eosinophils # (Manual) 0.0 K/mm3 (0.0-0.4) 01/21/18 05:00 Basophils # (Manual) 0.0 K/mm3 (0.0-0.1) 01/21/18 05:00 Metamyelocytes # 0.0 K/mm3 01/21/18 05:00 Myelocytes # 0.0 K/mm3 01/21/18 05:00 Promyelocytes # 0.0 K/mm3 01/21/18 05:00 Blast Cells # 0.0 K/mm3 01/21/18 05:00 WBC Morphology Not Reportable 01/21/18 05:00 Hypersegmented Neuts Not Reportable 01/21/18 05:00 Hyposegmented Neuts Not Reportable 01/21/18 05:00 Hypogranular Neuts Not Reportable 01/21/18 05:00 Smudge Cells Not Reportable 01/21/18 05:00 Toxic Granulation Not Reportable 01/21/18 05:00 Toxic Vacuolation Not Reportable 01/21/18 05:00 Dohle Bodies Rare 01/21/18 05:00 Pelger-Huet Anomaly Not Reportable 01/21/18 05:00 Opal Rods Not Reportable 01/21/18 05:00 Platelet Estimate Consistent w auto 01/21/18 05:00 Clumped Platelets Not Reportable 01/21/18 05:00 Plt Clumps, EDTA Not Reportable 01/21/18 05:00 Large Platelets Not Reportable 01/21/18 05:00 Giant Platelets Not Reportable 01/21/18 05:00 Platelet Satelliting Not Reportable 01/21/18 05:00 Plt Morphology Comment Not Reportable 01/21/18 05:00 RBC Morphology Not Reportable 01/21/18 05:00 Dimorphic RBCs Not Reportable 01/21/18 05:00 Polychromasia Not Reportable 01/21/18 05:00 Hypochromasia Not Reportable 01/21/18 05:00 Poikilocytosis Not Reportable 01/21/18 05:00 Anisocytosis Not Reportable 01/21/18 05:00 Microcytosis Not Reportable 01/21/18 05:00 Macrocytosis Not Reportable 01/21/18 05:00 Spherocytes Not Reportable 01/21/18 05:00 Pappenheimer Bodies Not Reportable 01/21/18 05:00 Sickle Cells Not Reportable 01/21/18 05:00 Target Cells Not Reportable 01/21/18 05:00 Tear Drop Cells Not Reportable 01/21/18 05:00 Ovalocytes Not Reportable 01/21/18 05:00 Stomatocytes Few 01/21/18 05:00 Helmet Cells Not Reportable 01/21/18 05:00 [place] Bodies Not Reportable 01/21/18 05:00 [place] Rings Not Reportable 01/21/18 05:00 [place] Cells Not Reportable 01/21/18 05:00 Bite Cells Not Reportable 01/21/18 05:00 Crenated Cell Not Reportable 01/21/18 05:00 Elliptocytes Not Reportable 01/21/18 05:00 Acanthocytes (Spur) Not Reportable 01/21/18 05:00 Rouleaux Not Reportable 01/21/18 05:00 Hemoglobin C Crystals Not Reportable 01/21/18 05:00 Schistocytes Not Reportable 01/21/18 05:00 Malaria parasites Not Reportable 01/21/18 05:00 [place] Bodies Not Reportable 01/21/18 05:00 Hem Pathologist Commnt No 01/21/18 05:00 PT 17.5 Sec. (12.2-14.9) H 01/20/18 07:00 INR 1.35 (0.87-1.13) H 01/20/18 07:00 Heparin Anti-Xa, Unfract Negative (Negative) 01/20/18 11:03 POC ABG pH 7.399 (7.35-7.45) 01/23/18 04:39 POC ABG pCO2 31.9 (35-45) L 01/23/18 04:39 POC ABG pO2 62 (80-105) L 01/23/18 04:39 POC ABG HCO3 19.7 01/23/18 04:39 POC ABG Total CO2 21 01/23/18 04:39 POC ABG O2 Sat 92 01/23/18 04:39 POC ABG Base Excess -5 01/23/18 04:39 VBG pH 7.273 (7.320-7.420) L 01/17/18 16:54 FiO2 40 % 01/23/18 04:39 Sodium 138 mmol/L (137-145) 01/22/18 04:10 Potassium 4.7 mmol/L (3.6-5.0) 01/22/18 04:10 Chloride 97.7 mmol/L (98-107) L 01/22/18 04:10 Carbon Dioxide 22 mmol/L (22-30) 01/22/18 04:10 Anion Gap 23 mmol/L 01/22/18 04:10 BUN 72 mg/dL (7-17) H 01/22/18 04:10 Creatinine 3.6 mg/dL (0.7-1.2) H 01/22/18 04:10 Estimated GFR 13 ml/min 01/22/18 04:10 BUN/Creatinine Ratio 20 % 01/22/18 04:10 Glucose 145 mg/dL (65-100) H 01/22/18 04:10 POC Glucose 215 (70-105) H 01/23/18 05:24 Hemoglobin A1c 9.0 % (4-6) H 01/17/18 22:36 Lactic Acid 2.10 mmol/L (0.7-2.0) H* 01/21/18 05:00 Calcium 7.3 mg/dL (8.4-10.2) L 01/22/18 04:10 Total Bilirubin 0.90 mg/dL (0.1-1.2) 01/22/18 04:10 AST 146 units/L (5-40) H 01/22/18 04:10 ALT 547 units/L (7-56) H 01/22/18 04:10 Alkaline Phosphatase 123 units/L (35-129) 01/22/18 04:10 C-Reactive Protein 37.50 mg/dL (0.00-1.30) H 01/20/18 13:54 Total Protein 5.2 g/dL (6.3-8.2) L 01/22/18 04:10 Albumin 2.3 g/dL (3.9-5) L 01/22/18 04:10 Albumin/Globulin Ratio 0.8 % 01/22/18 04:10 Random Vancomycin 12.5 ug/mL (0-40.0) 01/21/18 Unknown ALISA Screen Negative (Negative) 01/20/18 Unknown Heparin-induced Plt Ab Negative (Negative) 01/20/18 11:03 UF Heparin High Dose 0 % Release 01/20/18 11:03 NEGRITA UFH Low Dose 0.1 0 % Release 01/20/18 11:03 NEGRITA UFH Low Dose 0.5 0 % Release 01/20/18 11:03 Hepatitis A IgM Ab Non-reactive (NonReactive) 01/20/18 07:00 Hep Bs Antigen Non-reactive (Negative) 01/20/18 07:00 Hep B Core IgM Ab Non-reactive (NonReactive) 01/20/18 07:00 Hepatitis C Antibody Non-reactive (NonReactive) 01/20/18 07:00 HIV 1&2 Antibody Rapid Non react (Non React) 01/20/18 Unknown HIV P24 Antigen Non react (Non React) 01/20/18 Unknown
[2018-01-23] MEDS ORDERED: APRESOLINE IV PRN (09:30)
[2018-01-23] MEDS: ZOSYN/NS 2.25 GM/50ML 2.25 GM/50 ML BAG IV SCH (09:55)
--- NOTE | 2018-01-23 10:13 | Progress Note ---
Assessment and Plan Acute respiratory failure intubated on mechanical ventilation Pleural effusion, left History of active methamphetamine use Family lost contact with patient on Saturday. She was found unresponsive on saturday Daughter concerned about the time lapse and anticipating grave neurological prognosis History of pacemaker insertion in 2008 post PCI The pacemaker has never been checked since the. Family was told that battery is depleted and PPM is non-functional Tele is showing SR, sinus tach with no pauses History of CAD s/p PCI in 2008 History of heavy tobacco use Patient smokes 3 packs per day History of uncontrolled hypertension Acute renal failure requiring hemodialysis Cardiomyopathy, LVEF 30-35% Pneumonia/sepsis/leukocytosis/thrombocytopenia Conservative cardiac management. Subjective Date of service: 01/23/18 Principal diagnosis: Acute hypoxic respiratory failure, severe sepsis with shock , encephalopathy Interval history: Remains intubated on mechanical ventilation. Objective Vital Signs Temp Pulse Pulse Pulse Resp Resp BP 01/23/18 08:29 94 H 86 24 176/90 01/23/18 06:11 99 H 26 H 186/96 01/23/18 06:00 98 H 33 H 186/96 01/23/18 05:51 98 H 33 H 192/94 01/23/18 05:41 99 H 33 H 192/94 01/23/18 05:30 99 H 31 H 192/94 01/23/18 05:21 98 H 33 H 184/91 01/23/18 05:11 99 H 33 H 184/91 01/23/18 05:00 100 H 26 H 184/91 01/23/18 04:51 98 H 29 H 185/98 01/23/18 04:41 98 H 25 H 01/23/18 04:34 99 H 185/98 01/23/18 04:30 99 H 20 170/104 01/23/18 04:20 96 H 31 H 199/104 01/23/18 04:10 96 H 32 H 199/104 01/23/18 04:00 98.9 F 98 H 30 H 199/104 01/23/18 03:50 94 H 29 H 199/115 01/23/18 03:40 96 H 24 199/115 01/23/18 03:30 94 H 26 H 200/113 01/23/18 03:20 92 H 27 H 211/111 01/23/18 03:10 96 H 30 H 211/111 01/23/18 03:00 94 H 29 H 211/111 01/23/18 02:50 96 H 24 157/92 /15/18 02:40 94 H 25 H 157/92 18 02:30 83 28 H 157/92 18 02:20 89 18 134/81 18 02:10 95 H 28 H 134/81 15/18 02:00 82 18 134/81 18 01:56 97 H 29 H 01/23/18 01:50 83 24 147/84 01/23/18 01:41 95 H 29 H 01/23/18 01:40 93 H 22 153/99 /18 01:30 95 H 28 H 153/99 01/23/18 01:20 93 H 27 H 153/99 / 01:10 93 H 27 H 153/99 01/23/18 01:00 91 H 27 H 153/99 18 00:50 84 23 150/94 18 00:40 81 22 150/94 18 00:30 83 20 150/94 1518 00:20 85 18 144/88 1518 00:10 83 24 144/88 18 00:00 98.3 F 80 24 144/88 18 23:50 84 24 139/86 /14/18 23:42 83 24 139/86 /14/18 23:40 83 25 H 139/86 /14/18 23:30 84 24 139/86 /14/18 23:28 84 141/87 14/18 23:20 83 24 141/87 14/18 23:10 85 24 141/87 14/18 23:00 87 24 141/87 /14/18 22:50 87 24 136/85 03/14/18 22:40 86 24 136/85 /14/18 22:30 86 24 136/85 03/14/18 22:20 83 25 H 138/85 03/14/18 22:10 87 25 H 138/85 03/14/18 22:00 84 24 138/85 03/14/18 21:50 85 24 139/87 14/18 21:40 86 22 139/87 03/14/18 21:30 86 24 139/87 03/14/18 21:20 85 24 106/72 03/14/18 21:10 83 22 106/72 03/14/18 21:01 88 24 03/14/18 21:00 78 24 106/72 03/14/18 20:50 83 24 144/87 03/14/18 20:47 85 144/87 03/14/18 20:46 86 24 03/14/18 20:40 84 23 144/87 03/14/18 20:30 86 25 H 144/87 03/14/18 20:20 90 22 142/84 03/14/18 20:10 88 25 H 142/84 03/14/18 20:00 98.8 F 88 24 142/84 03/14/18 19:50 88 25 H 140/87 03/14/18 19:40 88 26 H 140/87 03/14/18 19:30 88 21 140/87 03/14/18 19:20 89 25 H 136/82 03/14/18 19:10 86 24 136/82 03/14/18 19:00 87 21 136/82 03/14/18 18:50 89 26 H 127/78 03/14/18 18:40 91 H 26 H 127/78 03/14/18 18:30 91 H 22 127/78 03/14/18 18:20 92 H 27 H 129/80 03/14/18 18:10 91 H 23 129/80 03/14/18 18:00 92 H 26 H 129/80 03/14/18 17:50 93 H 30 H 125/75 03/14/18 17:40 93 H 27 H 125/75 03/14/18 17:30 92 H 22 125/75 03/14/18 17:29 91 H 03/14/18 17:20 92 H 27 H 150/93 03/14/18 17:10 95 H 25 H 150/93 03/14/18 17:00 98 H 26 H 150/93 03/14/18 16:50 85 23 122/76 03/14/18 16:46 95 H 122/76 03/14/18 16:40 91 H 27 H 122/76 03/14/18 16:30 92 H 26 H 122/76 03/14/18 16:20 95 H 29 H 131/85 03/14/18 16:10 94 H 28 H 131/85 03/14/18 16:00 98.7 F 96 H 27 H 131/85 03/14/18 15:50 96 H 28 H 139/89 03/14/18 15:40 96 H 27 H 139/89 03/14/18 15:30 99 H 26 H 139/89 03/14/18 15:20 98 H 24 141/88 03/14/18 15:10 99 H 27 H 141/88 03/14/18 15:00 102 H 25 H 141/88 03/14/18 14:54 92 H 24 03/14/18 14:50 92 H 24 140/90 03/14/18 14:40 95 H 24 140/90 03/14/18 14:39 100 H 29 H 03/14/18 14:30 103 H 26 H 140/90 03/14/18 14:20 100 H 30 H 170/103 03/14/18 14:10 102 H 28 H 170/103 /14/18 14:00 104 H 33 H 170/103 03/14/18 13:50 102 H 30 H 162/112 03/14/18 13:40 162 H 31 H 162/112 03/14/18 13:30 102 H 39 H 162/112 03/14/18 13:20 108 H 26 H 147/94 03/14/18 13:10 103 H 31 H 147/94 03/14/18 13:00 97 H 26 H 147/94 03/14/18 12:50 104 H 29 H 207/122 /14/18 12:40 103 H 30 H 204/107 03/14/18 12:30 101 H 27 H 204/107 /14/18 12:20 98 H 27 H 162/95 03/14/18 12:10 100 H 27 H 162/95 03/14/18 12:00 105 H 30 H 03/14/18 11:57 100 H 138/90 03/14/18 11:52 99.7 F H Pulse Ox 18 08:29 97 15/18 06:11 87 15/18 06:00 88 1518 05:51 87 18 05:41 89 15/18 05:30 90 03/15/18 05:21 91 01/23/18 05:11 01/23/18 05:00 01/23/18 04:51 88 01/23/18 04:41 96 01/23/18 04:34 93 01/23/18 04:30 94 01/23/18 04:20 93 01/23/18 04:10 93 01/23/18 04:00 98 01/23/18 03:50 01/23/18 03:40 96 01/23/18 03:30 96 01/23/18 03:20 96 01/23/18 03:10 96 01/23/18 03:00 96 01/23/18 02:50 97 01/23/18 02:40 01/23/18 02:30 99 01/23/18 02:20 96 01/23/18 02:10 98 01/23/18 02:00 99 01/23/18 01:56 01/23/18 01:50 97 01/23/18 01:41 01/23/18 01:40 97 01/23/18 01:30 01/23/18 01:20 01/23/18 01:10 01/23/18 01:00 01/23/18 00:50 98 01/23/18 00:40 98 01/23/18 00:30 98 01/23/18 00:20 98 01/23/18 00:10 98 01/23/18 00:00 97 01/22/18 23:50 99 01/22/18 23:42 98 01/22/18 23:40 98 01/22/18 23:30 99 01/22/18 23:28 98 01/22/18 23:20 99 18 23:10 99 01/22/18 23:00 99 18 22:50 99 18 22:40 99 18 22:30 99 18 22:20 99 01/22/18 22:10 99 01/22/18 22:00 99 01/22/18 21:50 99 18 21:40 99 18 21:30 98 18 21:20 98 01/22/18 21:10 98 01/22/18 21:01 01/22/18 21:00 99 03/14/18 20:50 99 03/14/18 20:47 98 03/14/18 20:46 03/14/18 20:40 99 03/14/18 20:30 99 03/14/18 20:20 99 03/14/18 20:10 99 03/14/18 20:00 98 03/14/18 19:50 99 03/14/18 19:40 98 03/14/18 19:30 98 03/14/18 19:20 98 03/14/18 19:10 98 03/14/18 19:00 98 03/14/18 18:50 98 03/14/18 18:40 98 03/14/18 18:30 98 03/14/18 18:20 98 0314/18 18:10 98 03/14/18 18:00 98 03/14/18 17:50 98 03/14/18 17:40 98 03/14/18 17:30 98 03/14/18 17:29 98 0314/18 17:20 98 14/18 17:10 98 0314/18 17:00 97 0314/18 16:50 0314/18 16:46 99 03/14/18 16:40 99 /14/18 16:30 98 14/18 16:20 96 14/18 16:10 97 14/18 16:00 03/14/18 15:50 03/14/18 15:40 03/14/18 15:30 03/14/18 15:20 /14/18 15:10 97 14/18 15:00 96 14/18 14:54 03/14/18 14:50 96 03/14/18 14:40 95 03/14/18 14:39 03/14/18 14:30 95 03/14/18 14:20 95 03/14/18 14:10 95 03/14/18 14:00 94 03/14/18 13:50 95 03/14/18 13:40 94 03/14/18 13:30 91 03/14/18 13:20 95 03/14/18 13:10 95 03/14/18 13:00 96 03/14/18 12:50 92 03/14/18 12:40 92 03/14/18 12:30 94 03/14/18 12:20 97 01/22/18 12:10 97 01/22/18 12:00 97 01/22/18 11:57 97 01/22/18 11:52 - Physical Examination General: Other (intubated on the vent) Cardiac: Positive: Reg Rate and Rhythm - Allied health notes Allied health notes reviewed: RT
[2018-01-23] MEDS: PEPCID PO SCH (10:56)
[2018-01-23] MEDS: ELIQUIS FEEDTUBE SCH ×2 (10:56→21:58)
--- NOTE | 2018-01-23 11:08 | Progress Note ---
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 History of cocaine abuse, Acute encephalopathy Lactic acidosis Thrombocytopenia - Continue with mechanical ventilatory support - VAP bundle addressed - daily evaluation for SATs and SBTs - HD/UF per nephrology for toxin and volume clearance - continue VTE prophylaxis with eliquis (sent HIT assay) - continue stress ulcer prophylaxis - continue Empiric antibiotics, plan to de-escalate per ID recs - continue supplemental oxygen to wean for oxygen saturations >90% (on 50% FiO2 now) - Wean vasopressor support for MAP>65 - continue Lung protective strategies, ARDS-net protocol - send repeat lactic acid and send CRP levels re: anti-infective de-escalation - continue other care per attending/other consultants ....remains critically ill on MVS and at high risk for further deterioration including ...35' CCT Subjective Date of service: 01/23/18 Principal diagnosis: Acute hypoxic respiratory failure, severe sepsis with shock , encephalopathy Interval history: Patient seen today for: Acute hypoxic respiratory failure, severe sepsis with shock, encephalopathy Seen and examined at bedside; 24-hour events reviewed; nursing and respiratory care staff consulted; no adverse overnight events reported to me; remains on MVS ; AMS is persistent; more active but still not purposeful; daughter in room and care plan discussed; FiO2 at 45%; tolerating HD/UF sessions so far Objective Vital Signs - 12hr 01/22/18 01/22/18 01/22/18 23:10 23:20 23:28 Temperature Pulse Rate 85 83 84 Pulse Rate [ Anterior Bilateral Throughout] Respiratory 24 24 Rate Respiratory Rate [Anterior Bilateral Throughout] Blood Pressure 141/87 141/87 141/87 O2 Sat by Pulse 99 99 98 Oximetry 01/22/18 01/22/18 01/22/18 23:30 23:40 23:42 Temperature Pulse Rate 84 83 83 Pulse Rate [ Anterior Bilateral Throughout] Respiratory 24 25 H 24 Rate Respiratory Rate [Anterior Bilateral Throughout] Blood Pressure 139/86 139/86 139/86 O2 Sat by Pulse 99 98 98 Oximetry 01/22/18 01/23/18 01/23/18 23:50 00:00 00:10 Temperature 98.3 F Pulse Rate 84 80 83 Pulse Rate [ Anterior Bilateral Throughout] Respiratory 24 24 24 Rate Respiratory Rate [Anterior Bilateral Throughout] Blood Pressure 139/86 144/88 144/88 O2 Sat by Pulse 99 97 98 Oximetry 01/23/18 01/23/18 01/23/18 00:20 00:30 00:40 Temperature Pulse Rate 85 83 81 Pulse Rate [ Anterior Bilateral Throughout] Respiratory 18 20 22 Rate Respiratory Rate [Anterior Bilateral Throughout] Blood Pressure 144/88 150/94 150/94 O2 Sat by Pulse 98 98 98 Oximetry 01/23/18 01/23/18 01/23/18 00:50 01:00 01:10 Temperature Pulse Rate 84 91 H 93 H Pulse Rate [ Anterior Bilateral Throughout] Respiratory 23 27 H 27 H Rate Respiratory Rate [Anterior Bilateral Throughout] Blood Pressure 150/94 153/99 153/99 O2 Sat by Pulse 98 Oximetry 01/23/18 01/23/18 01/23/18 01:20 01:30 01:40 Temperature Pulse Rate 93 H 95 H 93 H Pulse Rate [ Anterior Bilateral Throughout] Respiratory 27 H 28 H 22 Rate Respiratory Rate [Anterior Bilateral Throughout] Blood Pressure 153/99 153/99 153/99 O2 Sat by Pulse 97 Oximetry 01/23/18 01/23/18 01/23/18 01:41 01:50 01:56 Temperature Pulse Rate 83 Pulse Rate [ 95 H 97 H Anterior Bilateral Throughout] Respiratory 24 Rate Respiratory 29 H 29 H Rate [Anterior Bilateral Throughout] Blood Pressure 147/84 O2 Sat by Pulse 97 Oximetry 01/23/18 01/23/18 01/23/18 02:00 02:10 02:20 Temperature Pulse Rate 82 95 H 89 Pulse Rate [ Anterior Bilateral Throughout] Respiratory 18 28 H 18 Rate Respiratory Rate [Anterior Bilateral Throughout] Blood Pressure 134/81 134/81 134/81 O2 Sat by Pulse 99 98 96 Oximetry 01/23/18 01/23/18 01/23/18 02:30 02:40 02:50 Temperature Pulse Rate 83 94 H 96 H Pulse Rate [ Anterior Bilateral Throughout] Respiratory 28 H 25 H 24 Rate Respiratory Rate [Anterior Bilateral Throughout] Blood Pressure 157/92 157/92 157/92 O2 Sat by Pulse 99 97 Oximetry 01/23/18 01/23/18 01/23/18 03:00 03:10 03:20 Temperature Pulse Rate 94 H 96 H 92 H Pulse Rate [ Anterior Bilateral Throughout] Respiratory 29 H 30 H 27 H Rate Respiratory Rate [Anterior Bilateral Throughout] Blood Pressure 211/111 211/111 211/111 O2 Sat by Pulse 96 96 96 Oximetry 01/23/18 01/23/18 01/23/18 03:30 03:40 03:50 Temperature Pulse Rate 94 H 96 H 94 H Pulse Rate [ Anterior Bilateral Throughout] Respiratory 26 H 24 29 H Rate Respiratory Rate [Anterior Bilateral Throughout] Blood Pressure 200/113 199/115 199/115 O2 Sat by Pulse 96 96 Oximetry 01/23/18 01/23/18 01/23/18 04:00 04:10 04:20 Temperature 98.9 F Pulse Rate 98 H 96 H 96 H Pulse Rate [ Anterior Bilateral Throughout] Respiratory 30 H 32 H 31 H Rate Respiratory Rate [Anterior Bilateral Throughout] Blood Pressure 199/104 199/104 199/104 O2 Sat by Pulse 98 93 93 Oximetry 01/23/18 01/23/18 01/23/18 04:30 04:34 04:41 Temperature Pulse Rate 99 H 99 H 98 H Pulse Rate [ Anterior Bilateral Throughout] Respiratory 20 25 H Rate Respiratory Rate [Anterior Bilateral Throughout] Blood Pressure 170/104 185/98 O2 Sat by Pulse 94 93 96 Oximetry 01/23/18 01/23/18 01/23/18 04:51 05:00 05:11 Temperature Pulse Rate 98 H 100 H 99 H Pulse Rate [ Anterior Bilateral Throughout] Respiratory 29 H 26 H 33 H Rate Respiratory Rate [Anterior Bilateral Throughout] Blood Pressure 185/98 184/91 184/91 O2 Sat by Pulse 88 Oximetry 01/23/18 01/23/18 01/23/18 05:21 05:30 05:41 Temperature Pulse Rate 98 H 99 H 99 H Pulse Rate [ Anterior Bilateral Throughout] Respiratory 33 H 31 H 33 H Rate Respiratory Rate [Anterior Bilateral Throughout] Blood Pressure 184/91 192/94 192/94 O2 Sat by Pulse 91 90 89 Oximetry 01/23/18 01/23/18 01/23/18 05:51 06:00 06:11 Temperature Pulse Rate 98 H 98 H 99 H Pulse Rate [ Anterior Bilateral Throughout] Respiratory 33 H 33 H 26 H Rate Respiratory Rate [Anterior Bilateral Throughout] Blood Pressure 192/94 186/96 186/96 O2 Sat by Pulse 87 88 87 Oximetry 01/23/18 08:29 Temperature Pulse Rate 94 H Pulse Rate [ 86 Anterior Bilateral Throughout] Respiratory Rate Respiratory 24 Rate [Anterior Bilateral Throughout] Blood Pressure 176/90 O2 Sat by Pulse 97 Oximetry Constitutional: appears uncomfortable Eyes: non-icteric ENT: oropharynx moist, other (ETT 23cm MARGOT) Neck: supple, no lymphadenopathy, no JVD, other (no thyromegaly) Effort: mildly labored Ascultation: Bilateral: diminished breath sounds, rales Percussion: Bilateral: not dull Cardiovascular: regular rate and rhythm, other (no rubs or murmurs) Gastrointestinal: normoactive bowel sounds, soft, non-tender, non-distended, other (no [place] HSM) Integumentary: normal Extremities: no cyanosis, no edema, pink and warm, pulses normal Neurologic: non-focal exam (grossly), motor strength normal and, unable to assess Psychiatric: other (unable to assess) CBC and BMP: 01/24/18 03:40 01/24/18 03:40 ABG, PT/INR, D-dimer: ABG POC ABG pH 7.399 (7.35-7.45) 01/23/18 04:39 POC ABG pCO2 31.9 (35-45) L 01/23/18 04:39 POC ABG pO2 62 (80-105) L 01/23/18 04:39 POC ABG HCO3 19.7 01/23/18 04:39 POC ABG Total CO2 21 01/23/18 04:39 POC ABG O2 Sat 92 01/23/18 04:39 PT/INR, D-dimer PT 17.5 Sec. (12.2-14.9) H 01/20/18 07:00 INR 1.35 (0.87-1.13) H 01/20/18 07:00 Abnormal lab findings: Abnormal Labs 01/17/18 01/17/18 01/17/18 15:25 16:15 16:48 WBC MCH Plt Count Seg Neuts % (Manual) Lymphocytes % (Manual) Monocytes % (Manual) Nucleated RBC % Seg Neutrophils # Man Lymphocytes # (Manual) Monocytes # (Manual) PT INR POC ABG pH 7.099 L POC ABG pCO2 58.9 H POC ABG pO2 149 H VBG pH Sodium Chloride Carbon Dioxide BUN Creatinine Glucose POC Glucose < 40 L 121 H Hemoglobin A1c Lactic Acid Calcium Total Bilirubin AST ALT Alkaline Phosphatase C-Reactive Protein Total Protein Albumin 01/17/18 01/17/18 01/17/18 16:54 16:54 16:54 WBC MCH Plt Count Seg Neuts % (Manual) 72.0 H Lymphocytes % (Manual) 3.0 L Monocytes % (Manual) Nucleated RBC % Seg Neutrophils # Man Lymphocytes # (Manual) 0.2 L Monocytes # (Manual) PT 18.5 H INR 1.45 H POC ABG pH POC ABG pCO2 POC ABG pO2 VBG pH Sodium 136 L Chloride 97.8 L Carbon Dioxide 16 L BUN 43 H Creatinine 3.3 H Glucose 121 H POC Glucose Hemoglobin A1c Lactic Acid Calcium 6.7 L Total Bilirubin AST ALT Alkaline Phosphatase C-Reactive Protein Total Protein 4.4 L Albumin 2.3 L 01/17/18 01/17/18 01/17/18 16:54 16:54 17:11 WBC MCH Plt Count Seg Neuts % (Manual) Lymphocytes % (Manual) Monocytes % (Manual) Nucleated RBC % Seg Neutrophils # Man Lymphocytes # (Manual) Monocytes # (Manual) PT INR POC ABG pH POC ABG pCO2 POC ABG pO2 VBG pH 7.273 L Sodium Chloride Carbon Dioxide BUN Creatinine Glucose POC Glucose Hemoglobin A1c Lactic Acid 4.70 H* 4.30 H* Calcium Total Bilirubin AST ALT Alkaline Phosphatase C-Reactive Protein Total Protein Albumin 01/17/18 01/17/18 01/17/18 18:02 18:15 19:21 WBC MCH Plt Count Seg Neuts % (Manual) Lymphocytes % (Manual) Monocytes % (Manual) Nucleated RBC % Seg Neutrophils # Man Lymphocytes # (Manual) Monocytes # (Manual) PT INR POC ABG pH 7.177 L POC ABG pCO2 POC ABG pO2 VBG pH Sodium Chloride Carbon Dioxide BUN Creatinine Glucose POC Glucose < 40 L Hemoglobin A1c Lactic Acid 3.00 H* Calcium Total Bilirubin AST ALT Alkaline Phosphatase C-Reactive Protein Total Protein Albumin 01/17/18 01/17/18 01/17/18 22:36 22:36 23:16 WBC MCH Plt Count Seg Neuts % (Manual) Lymphocytes % (Manual) Monocytes % (Manual) Nucleated RBC % Seg Neutrophils # Man Lymphocytes # (Manual) Monocytes # (Manual) PT INR POC ABG pH 7.112 L POC ABG pCO2 50.1 H POC ABG pO2 50 L VBG pH Sodium Chloride Carbon Dioxide BUN Creatinine Glucose POC Glucose Hemoglobin A1c 9.0 H Lactic Acid 5.50 H* Calcium Total Bilirubin AST ALT Alkaline Phosphatase C-Reactive Protein Total Protein Albumin 01/18/18 01/18/18 01/18/18 01:26 03:21 03:21 WBC MCH Plt Count Seg Neuts % (Manual) 27.0 L Lymphocytes % (Manual) 3.0 L Monocytes % (Manual) 14.0 H Nucleated RBC % Seg Neutrophils # Man Lymphocytes # (Manual) 0.3 L Monocytes # (Manual) 1.4 H PT INR POC ABG pH POC ABG pCO2 POC ABG pO2 VBG pH Sodium Chloride Carbon Dioxide BUN Creatinine Glucose POC Glucose 107 H Hemoglobin A1c Lactic Acid 8.00 H* Calcium Total Bilirubin AST ALT Alkaline Phosphatase C-Reactive Protein Total Protein Albumin 01/18/18 01/18/18 01/18/18 03:21 04:40 05:07 WBC MCH Plt Count Seg Neuts % (Manual) Lymphocytes % (Manual) Monocytes % (Manual) Nucleated RBC % Seg Neutrophils # Man Lymphocytes # (Manual) Monocytes # (Manual) PT INR POC ABG pH 7.093 L POC ABG pCO2 31.5 L POC ABG pO2 77 L VBG pH Sodium Chloride 96.9 L Carbon Dioxide 14 L BUN 47 H Creatinine 3.4 H Glucose POC Glucose Hemoglobin A1c Lactic Acid 11.10 H* Calcium 6.4 L Total Bilirubin AST 47 H ALT Alkaline Phosphatase C-Reactive Protein Total Protein 4.3 L Albumin 2.4 L 01/18/18 01/18/18 01/18/18 06:29 07:06 11:44 WBC MCH Plt Count Seg Neuts % (Manual) Lymphocytes % (Manual) Monocytes % (Manual) Nucleated RBC % Seg Neutrophils # Man Lymphocytes # (Manual) Monocytes # (Manual) PT INR POC ABG pH POC ABG pCO2 POC ABG pO2 VBG pH Sodium Chloride Carbon Dioxide BUN Creatinine Glucose POC Glucose 47 L 149 H < 40 L Hemoglobin A1c Lactic Acid Calcium Total Bilirubin AST ALT Alkaline Phosphatase C-Reactive Protein Total Protein Albumin 01/18/18 01/18/18 01/18/18 11:46 14:15 18:01 WBC MCH Plt Count Seg Neuts % (Manual) Lymphocytes % (Manual) Monocytes % (Manual) Nucleated RBC % Seg Neutrophils # Man Lymphocytes # (Manual) Monocytes # (Manual) PT INR POC ABG pH POC ABG pCO2 POC ABG pO2 VBG pH Sodium Chloride Carbon Dioxide BUN Creatinine Glucose POC Glucose 116 H < 40 L Hemoglobin A1c Lactic Acid 10.00 H* Calcium Total Bilirubin AST ALT Alkaline Phosphatase C-Reactive Protein Total Protein Albumin 01/18/18 01/18/18 01/18/18 18:02 23:25 23:27 WBC MCH Plt Count Seg Neuts % (Manual) Lymphocytes % (Manual) Monocytes % (Manual) Nucleated RBC % Seg Neutrophils # Man Lymphocytes # (Manual) Monocytes # (Manual) PT INR POC ABG pH POC ABG pCO2 POC ABG pO2 VBG pH Sodium Chloride Carbon Dioxide BUN Creatinine Glucose POC Glucose 136 H < 40 L < 40 L Hemoglobin A1c Lactic Acid Calcium Total Bilirubin AST ALT Alkaline Phosphatase C-Reactive Protein Total Protein Albumin 01/19/18 01/19/18 01/19/18 04:02 06:50 06:50 WBC 18.5 H MCH Plt Count 136 L Seg Neuts % (Manual) 86.0 H Lymphocytes % (Manual) 4.0 L Monocytes % (Manual) Nucleated RBC % Seg Neutrophils # Man 15.9 H Lymphocytes # (Manual) 0.7 L Monocytes # (Manual) 1.1 H PT 21.3 H INR 1.73 H POC ABG pH POC ABG pCO2 28.3 L POC ABG pO2 57 L VBG pH Sodium Chloride Carbon Dioxide BUN Creatinine Glucose POC Glucose Hemoglobin A1c Lactic Acid Calcium Total Bilirubin AST ALT Alkaline Phosphatase C-Reactive Protein Total Protein Albumin 01/19/18 01/19/18 01/19/18 06:50 08:45 11:17 WBC MCH Plt Count Seg Neuts % (Manual) Lymphocytes % (Manual) Monocytes % (Manual) Nucleated RBC % Seg Neutrophils # Man Lymphocytes # (Manual) Monocytes # (Manual) PT INR POC ABG pH POC ABG pCO2 POC ABG pO2 VBG pH Sodium 135 L Chloride 92.8 L Carbon Dioxide 19 L BUN 31 H Creatinine 2.6 H Glucose POC Glucose 110 H Hemoglobin A1c Lactic Acid 7.90 H* Calcium 7.1 L Total Bilirubin 1.60 H AST 2526 H ALT 1187 H Alkaline Phosphatase 133 H C-Reactive Protein Total Protein 4.8 L Albumin 2.0 L 01/19/18 01/19/18 01/19/18 11:31 22:12 23:34 WBC MCH Plt Count Seg Neuts % (Manual) Lymphocytes % (Manual) Monocytes % (Manual) Nucleated RBC % Seg Neutrophils # Man Lymphocytes # (Manual) Monocytes # (Manual) PT INR POC ABG pH POC ABG pCO2 31.6 L POC ABG pO2 59 L VBG pH Sodium Chloride Carbon Dioxide BUN Creatinine Glucose POC Glucose 131 H 53 L Hemoglobin A1c Lactic Acid Calcium Total Bilirubin AST ALT Alkaline Phosphatase C-Reactive Protein Total Protein Albumin 01/20/18 01/20/18 01/20/18 05:18 05:18 05:19 WBC 19.7 H MCH 27 L Plt Count 84 L Seg Neuts % (Manual) 84.0 H Lymphocytes % (Manual) 2.0 L Monocytes % (Manual) 8.0 H Nucleated RBC % Seg Neutrophils # Man 16.5 H Lymphocytes # (Manual) 0.4 L Monocytes # (Manual) 1.6 H PT INR POC ABG pH POC ABG pCO2 POC ABG pO2 VBG pH Sodium 136 L Chloride 96.9 L Carbon Dioxide 17 L BUN 65 H Creatinine 4.1 H D Glucose 104 H POC Glucose 125 H Hemoglobin A1c Lactic Acid Calcium 7.1 L Total Bilirubin 1.60 H AST 1702 H ALT 1141 H Alkaline Phosphatase 172 H C-Reactive Protein Total Protein 5.0 L Albumin 1.7 L 01/20/18 01/20/18 01/20/18 07:00 11:48 13:54 WBC MCH Plt Count Seg Neuts % (Manual) Lymphocytes % (Manual) Monocytes % (Manual) Nucleated RBC % Seg Neutrophils # Man Lymphocytes # (Manual) Monocytes # (Manual) PT 17.5 H INR 1.35 H POC ABG pH POC ABG pCO2 POC ABG pO2 VBG pH Sodium Chloride Carbon Dioxide BUN Creatinine Glucose POC Glucose 109 H Hemoglobin A1c Lactic Acid Calcium Total Bilirubin AST ALT Alkaline Phosphatase C-Reactive Protein 37.50 H Total Protein Albumin 01/20/18 01/20/18 01/20/18 17:28 17:51 20:50 WBC MCH Plt Count Seg Neuts % (Manual) Lymphocytes % (Manual) Monocytes % (Manual) Nucleated RBC % Seg Neutrophils # Man Lymphocytes # (Manual) Monocytes # (Manual) PT INR POC ABG pH POC ABG pCO2 POC ABG pO2 VBG pH Sodium Chloride Carbon Dioxide BUN Creatinine Glucose POC Glucose 140 H Hemoglobin A1c Lactic Acid 2.70 H* 2.30 H* Calcium Total Bilirubin AST ALT Alkaline Phosphatase C-Reactive Protein Total Protein Albumin 01/20/18 01/20/18 01/21/18 23:55 Unknown 00:12 WBC MCH Plt Count Seg Neuts % (Manual) Lymphocytes % (Manual) Monocytes % (Manual) Nucleated RBC % Seg Neutrophils # Man Lymphocytes # (Manual) Monocytes # (Manual) PT INR POC ABG pH POC ABG pCO2 POC ABG pO2 VBG pH Sodium Chloride Carbon Dioxide BUN Creatinine Glucose POC Glucose 149 H 134 H Hemoglobin A1c Lactic Acid 2.50 H* Calcium Total Bilirubin AST ALT Alkaline Phosphatase C-Reactive Protein Total Protein Albumin 01/21/18 01/21/18 01/21/18 04:27 05:00 05:00 WBC 21.7 H MCH 27 L Plt Count 67 L Seg Neuts % (Manual) 71.0 H Lymphocytes % (Manual) 9.0 L Monocytes % (Manual) Nucleated RBC % 4.0 H Seg Neutrophils # Man 15.4 H Lymphocytes # (Manual) Monocytes # (Manual) PT INR POC ABG pH POC ABG pCO2 33.8 L POC ABG pO2 72 L VBG pH Sodium Chloride Carbon Dioxide 21 L BUN 71 H Creatinine 4.1 H Glucose 149 H POC Glucose Hemoglobin A1c Lactic Acid Calcium 7.5 L Total Bilirubin AST 494 H ALT 780 H Alkaline Phosphatase 151 H C-Reactive Protein Total Protein 4.9 L Albumin 1.9 L 01/21/18 01/21/18 01/21/18 05:00 05:18 12:20 WBC MCH Plt Count Seg Neuts % (Manual) Lymphocytes % (Manual) Monocytes % (Manual) Nucleated RBC % Seg Neutrophils # Man Lymphocytes # (Manual) Monocytes # (Manual) PT INR POC ABG pH POC ABG pCO2 POC ABG pO2 VBG pH Sodium Chloride Carbon Dioxide BUN Creatinine Glucose POC Glucose 132 H 158 H Hemoglobin A1c Lactic Acid 2.10 H* Calcium Total Bilirubin AST ALT Alkaline Phosphatase C-Reactive Protein Total Protein Albumin 01/21/18 01/21/18 01/22/18 18:07 23:40 03:48 WBC MCH Plt Count Seg Neuts % (Manual) Lymphocytes % (Manual) Monocytes % (Manual) Nucleated RBC % Seg Neutrophils # Man Lymphocytes # (Manual) Monocytes # (Manual) PT INR POC ABG pH POC ABG pCO2 POC ABG pO2 65 L VBG pH Sodium Chloride Carbon Dioxide BUN Creatinine Glucose POC Glucose 143 H 136 H Hemoglobin A1c Lactic Acid Calcium Total Bilirubin AST ALT Alkaline Phosphatase C-Reactive Protein Total Protein Albumin 01/22/18 01/22/18 01/22/18 04:10 04:10 05:56 WBC 24.9 H MCH 27 L Plt Count 80 L Seg Neuts % (Manual) Lymphocytes % (Manual) Monocytes % (Manual) Nucleated RBC % Seg Neutrophils # Man Lymphocytes # (Manual) Monocytes # (Manual) PT INR POC ABG pH POC ABG pCO2 POC ABG pO2 VBG pH Sodium Chloride 97.7 L Carbon Dioxide BUN 72 H Creatinine 3.6 H Glucose 145 H POC Glucose 139 H Hemoglobin A1c Lactic Acid Calcium 7.3 L Total Bilirubin AST 146 H ALT 547 H Alkaline Phosphatase C-Reactive Protein Total Protein 5.2 L Albumin 2.3 L 01/22/18 01/22/18 01/23/18 11:30 17:41 00:00 WBC MCH Plt Count Seg Neuts % (Manual) Lymphocytes % (Manual) Monocytes % (Manual) Nucleated RBC % Seg Neutrophils # Man Lymphocytes # (Manual) Monocytes # (Manual) PT INR POC ABG pH POC ABG pCO2 POC ABG pO2 VBG pH Sodium Chloride Carbon Dioxide BUN Creatinine Glucose POC Glucose 156 H 185 H 150 H Hemoglobin A1c Lactic Acid Calcium Total Bilirubin AST ALT Alkaline Phosphatase C-Reactive Protein Total Protein Albumin 01/23/18 01/23/18 04:39 05:24 WBC MCH Plt Count Seg Neuts % (Manual) Lymphocytes % (Manual) Monocytes % (Manual) Nucleated RBC % Seg Neutrophils # Man Lymphocytes # (Manual) Monocytes # (Manual) PT INR POC ABG pH POC ABG pCO2 31.9 L POC ABG pO2 62 L VBG pH Sodium Chloride Carbon Dioxide BUN Creatinine Glucose POC Glucose 215 H Hemoglobin A1c Lactic Acid Calcium Total Bilirubin AST ALT Alkaline Phosphatase C-Reactive Protein Total Protein Albumin Chest x-ray: image reviewed Allied health notes reviewed: RT
[2018-01-23] MEDS ORDERED: BENADRYL ONE (12:28)
--- NOTE | 2018-01-23 16:35 | Progress Note ---
Assessment and Plan Assessment: 1) Severe sepsis with septic shock and MODS: shock resolved, still low fever and worsening leukocytosis. Etiology most likely unclear. DDx: pneumonia with para-pneumonic effusion ? pelvic collections? PE. CRP=37 -blood cx negative -legs US neg for DVT 2) Acute respiratory failure 3) Presumed pneumonia with large left pleural effusion: -repeat CXR - decreased effusion -TA no growth 4) JANESSA: worsening now on HD 5) Presumed ? drug abuse 6) DM-poorly controlled 7) Bilateral fingers ischemic changes: from pressors ? 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 flushing ? zosyn allergy 11) Acute encephalopathy 12) Pelvic collections x 3: ? etiology 13) Penicillin allergy Plan: -stop zosyn -start levaquin and flagyl -follow-up tracheal asp cultures and procalcitonin - pending -continue vancomycin - day 6 Thank you for your consultation, will follow up with you. Michaela Parekh MD Infectious Diseases Specialist [facility] ([facility]) M [phone] O [phone] Subjective Date of service: 01/23/18 Principal diagnosis: Acute hypoxic respiratory failure, severe sepsis with shock , encephalopathy Interval history: Remains critically ill, intubated, sedated, tmax 100.1 Microbiology: Blood cultures: 01/17 neg 01/20 ngtd Urine cultures: Respiratory cultures: TA 01/17 ngtd / Gram stain - many GPC in chains Current Antimicrobials: Zosyn 01/18 Vancomycin 01/18 Objective - Exam Narrative Exam: General appearance: sedated on the vent Eyes: anicteric sclerae, moist conjunctivae; no lid-lag; PERRLA HENT: Atraumatic; oropharynx clear +ETT +NGT Neck: Trachea midline; supple, no thyromegaly or lymphadenopathy Lungs: juan rhonchi CV: tachy Abdomen: Soft, non-tender; distended Extremities: No peripheral edema or extremity lymphadenopathy Skin: mild erythematous macular rash on chest and upper arms. +bilateral multiple fingers purpuric changes Psych: sedated Neuro: sedated Lines: right fem vascath, right IJ TLC - Constitutional Vitals: Vital Signs Temp Pulse Resp BP Pulse Ox 97.6 F 92 H 32 H 160/81 95 01/23/18 15:00 01/23/18 16:15 03/15/18 15:00 01/23/18 16:15 01/23/18 15:00 Temperature -Last 24 Hours Temperature 97.6 F Temperature 98.9 F Temperature 98.3 F Temperature 98.8 F - Labs CBC & Chem 7: 01/22/18 04:10 01/22/18 04:10 Labs: Abnormal lab results 01/22/18 01/23/18 01/23/18 Range/Units 17:41 00:00 04:39 POC ABG pCO2 31.9 L (35-45) POC ABG pO2 62 L (80-105) POC Glucose 185 H 150 H (70-105) 01/23/18 Range/Units 05:24 POC ABG pCO2 (35-45) POC ABG pO2 (80-105) POC Glucose 215 H (70-105)
[2018-01-23] MEDS ORDERED: NACL 0.9% 100 ML IV PRN (17:00)
[2018-01-23] MEDS: LEVAQUIN 750MG/150ML 750 MG/150 ML BAG IV SCH (21:58)
[2018-01-23] MEDS: FLAGYL 500 MG/100 ML 500 MG/100 ML BAG IV SCH (21:58)
[2018-01-24] MEDS ORDERED: HumaLOG SUB-Q ONE ×2 (00:11)
[2018-01-24] MEDS: HumaLOG SUB-Q SCH ×2 (00:11→06:14)
[2018-01-24] MEDS: FLAGYL 500 MG/100 ML 500 MG/100 ML BAG IV SCH ×3 (02:29→18:43)
[2018-01-24] MEDS: DUONEB *Not for PRN Use IH SCH ×4 (02:55→20:11)
--- NOTE | 2018-01-24 03:17 | XRay Report ---
FINAL REPORT EXAM: XR CHEST 1V AP HISTORY: follow up respiratory failure TECHNIQUE: A portable semi-erect view the chest was obtained and compared the study of 01/23/2018. FINDINGS: The heart is moderately enlarged. The lungs remain congested with bilateral effusions. The central venous line ET tube and NG tube appear in good position. There is a right-sided pacemaker noted with the leads in the right atrium and right ventricle. The skeletal structures otherwise are unchanged. IMPRESSION: Stable cardiomegaly with diffuse vascular congestion and bilateral effusions. Satisfactory position of all tubes and lines.
[2018-01-24 04:40] LABS: Hematocrit 35.6 % (30.3-42.9); Hemoglobin 11.2 gm/dl (10.1-14.3); Mean Corpuscular HGB Conc 31 % (30-34); Mean Corpuscular Hemoglobin 27 pg (28-32); Mean Corpuscular Volume 85 fl (79-97); Red Blood Count 4.21 M/mm3 (3.65-5.03); Red Cell Distribution Width 14.9 % (13.2-15.2)
[2018-01-24 04:58] LABS: Platelet Count 130 K/mm3 (140-440)
[2018-01-24 05:04] LABS: Albumin 2.5 g/dL (3.9-5); Calcium 7.3 mg/dL (8.4-10.2)
--- NOTE | 2018-01-24 09:19 | Progress Note ---
Assessment and Plan Assessment and plan: 62-year-old admitted with hx of htn, polysubstance drug abuse per family, admitted after she was found unresponsive found in the bathroom pf a friends home, noted with severe lactic acidosis, hypotensive on vasopressors, hypercapeniac respiratory failure requiring intubation . //Acute hypercapenic respiratory failure - Likely from drug abuse and aspiration - VAP bundle -on vent support //Large Left Pleural Effusion - Will discuss with Pulmonary about Thoracentesis //Severe Sepsis with septic shock likely from aspiration pneumonia-POA -Recurrent fever possible due to the infection - Had some reaction to zosyn with facial flushing -abx changed to levaquin and flagyl -worsening Leukocytosis like secondary to steroids given for allergic reaction - Left lobar infiltrate on admission - We'll continue broad-spectrum antibiotic for now - negative blood culture, sputum cx pending //DM uncontrolled hyperglycemia -Continue insulin therapy //Shock required pressors - likely from sepsis vs cardiogenic - Continue IV antibiotics - off pressors today. required 3 pressors on admission //Decompensated acute CHF - EF 30-35% on ed echo - will consult cardiology - cautious use of iv fluid //Febrile illness, repeat cx, cont abx, consult ID ?pelvic mass, Discussed with PROGRAM SCHEDULER likely cyst. and Pelvic ultrasound //JANESSA likely due to tumor necrosis from severe sepsis - monitor renal function, now on HD - Avoid nephrotoxins, nephrology consulted //History of cocaine abuse, UDS pending //Acute encephalopathy - Multifactorial, likely from drug abuse vs severe sepsis versus anoxic encephalopathy - CT head no acute finding - pt is off sedation since DAY prior to yesterday -Pacemaker precludes getting MRI brain -May obtain neurology if no clinical improvement //Lactic acidosis - Likely from severe sepsis and along with decline in renal function - placed on bicarbonate drip inittially, now on HD // Elevated LFTs- shock liver syndrome - Likely from severe hypotension causing shock liver - Continue to monitor // Coagulopathy, due to severe sepsis and abnormal liver function // Bilateral finger Ischemic Changes possible secondary to pressors but potentiated by hx of from drug abuse, will get vascular consult //Thrombocytopenia - Montior // FEN - start on TF, D5Ns @ 42ml/h Disposition: Continue ICU monitoring, very poor prognosis. Discussed management and prognosis in detail with the daughter, also discussed with charge gang weigher and ID The high probability of a clinically significant, sudden or life threatening deterioration of the [multiorgan] system(s) required my full and direct attention, intervention and personal management. The aggregate critical care time was [35] minutes. This time is in addition to time spent performing reported procedures but includes the following: [x] Data Review and interpretation [x] Patient assessment and monitoring of vital signs [x] Documentation [x] Medication orders and management History Interval history: Patient seen and examined, remains on mechanical ventilation, remains with flushed face but improved compared to yesterday Hospitalist Physical - Physical exam Narrative exam: GENERAL: Elderly WF lying on bed intubated and unresponsive HEENT: Normocephalic. Atraumatic. No conjunctival congestion or icterus. Patient has dry mucous membranes. NECK: Supple. Trachea midline. ET tube in place CHEST/LUNGS: Clear to auscultated bilaterally, breathing under vent. Positive for a few wheezes, crackles or rhonchi. HEART/CARDIOVASCULAR: tachycardic. S1 and S2 positive. ABDOMEN: Abdomen is soft, nontender. Patient has normal bowel sounds. SKIN: There is no rash. Warm and dry. NEURO: Sedated, does not follow any command MUSCULOSKELETAL: No joint effusion EXTRIMITY: No edema, cyanosis of the toes and fingers possible ischmeia, fingers much worse PSYCH: Unable to assess skin: multiple tattoes - Constitutional Vitals: Temp Pulse Resp BP Pulse Ox 97.3 F L 90 20 173/120 99 01/24/18 08:00 01/24/18 09:00 01/24/18 09:00 01/24/18 09:00 01/24/18 09:00 General appearance: Present: other (intubated) Results - Labs CBC & Chem 7: 01/24/18 03:40 01/24/18 03:40 Labs: Laboratory Last Values WBC 34.5 K/mm3 (4.5-11.0) H 01/24/18 03:40 RBC 4.21 M/mm3 (3.65-5.03) 01/24/18 03:40 Hgb 11.2 gm/dl (10.1-14.3) 01/24/18 03:40 Hct 35.6 % (30.3-42.9) 01/24/18 03:40 MCV 85 fl (79-97) 01/24/18 03:40 MCH 27 pg (28-32) L 01/24/18 03:40 MCHC 31 % (30-34) 01/24/18 03:40 RDW 14.9 % (13.2-15.2) 01/24/18 03:40 Plt Count 130 K/mm3 (140-440) L 01/24/18 03:40 Lymph % (Auto) Verification Lead 01/17/18 16:54 Chester % (Auto) Verification Lead 01/17/18 16:54 Eos % (Auto) Verification Lead 01/17/18 16:54 Baso % (Auto) Verification Lead 01/17/18 16:54 Lymph # Verification Lead 01/17/18 16:54 Chester # Verification Lead 01/17/18 16:54 Eos # Verification Lead 01/17/18 16:54 Baso # Verification Lead 01/17/18 16:54 Add Manual Diff Complete 01/21/18 05:00 Total Counted 100 01/21/18 05:00 Seg Neutrophils % Verification Lead 01/21/18 05:00 Seg Neuts % (Manual) 71.0 % (40.0-70.0) H 01/21/18 05:00 Band Neutrophils % 18.0 % 01/21/18 05:00 Lymphocytes % (Manual) 9.0 % (13.4-35.0) L 01/21/18 05:00 Reactive Lymphs % (Man) 0 % 01/21/18 05:00 Monocytes % (Manual) 2.0 % (0.0-7.3) 01/21/18 05:00 Eosinophils % (Manual) 0 % (0.0-4.3) 01/21/18 05:00 Basophils % (Manual) 0 % (0.0-1.8) 01/21/18 05:00 Metamyelocytes % 0 % 01/21/18 05:00 Myelocytes % 0 % 01/21/18 05:00 Promyelocytes % 0 % 01/21/18 05:00 Blast Cells % 0 % 01/21/18 05:00 Nucleated RBC % 4.0 % (0.0-0.9) H 01/21/18 05:00 Seg Neutrophils # Verification Lead 01/17/18 16:54 Seg Neutrophils # Man 15.4 K/mm3 (1.8-7.7) H 01/21/18 05:00 Band Neutrophils # 3.9 K/mm3 01/21/18 05:00 Lymphocytes # (Manual) 2.0 K/mm3 (1.2-5.4) 01/21/18 05:00 Abs React Lymphs (Man) 0.0 K/mm3 01/21/18 05:00 Monocytes # (Manual) 0.4 K/mm3 (0.0-0.8) 01/21/18 05:00 Eosinophils # (Manual) 0.0 K/mm3 (0.0-0.4) 01/21/18 05:00 Basophils # (Manual) 0.0 K/mm3 (0.0-0.1) 01/21/18 05:00 Metamyelocytes # 0.0 K/mm3 01/21/18 05:00 Myelocytes # 0.0 K/mm3 01/21/18 05:00 Promyelocytes # 0.0 K/mm3 01/21/18 05:00 Blast Cells # 0.0 K/mm3 01/21/18 05:00 WBC Morphology Not Reportable 01/21/18 05:00 Hypersegmented Neuts Not Reportable 01/21/18 05:00 Hyposegmented Neuts Not Reportable 01/21/18 05:00 Hypogranular Neuts Not Reportable 01/21/18 05:00 Smudge Cells Not Reportable 01/21/18 05:00 Toxic Granulation Not Reportable 01/21/18 05:00 Toxic Vacuolation Not Reportable 01/21/18 05:00 Dohle Bodies Rare 01/21/18 05:00 Pelger-Huet Anomaly Not Reportable 01/21/18 05:00 Opal Rods Not Reportable 01/21/18 05:00 Platelet Estimate Consistent w auto 01/21/18 05:00 Clumped Platelets Not Reportable 01/21/18 05:00 Plt Clumps, EDTA Not Reportable 01/21/18 05:00 Large Platelets Not Reportable 01/21/18 05:00 Giant Platelets Not Reportable 01/21/18 05:00 Platelet Satelliting Not Reportable 01/21/18 05:00 Plt Morphology Comment Not Reportable 01/21/18 05:00 RBC Morphology Not Reportable 01/21/18 05:00 Dimorphic RBCs Not Reportable 01/21/18 05:00 Polychromasia Not Reportable 01/21/18 05:00 Hypochromasia Not Reportable 01/21/18 05:00 Poikilocytosis Not Reportable 01/21/18 05:00 Anisocytosis Not Reportable 01/21/18 05:00 Microcytosis Not Reportable 01/21/18 05:00 Macrocytosis Not Reportable 01/21/18 05:00 Spherocytes Not Reportable 01/21/18 05:00 Pappenheimer Bodies Not Reportable 01/21/18 05:00 Sickle Cells Not Reportable 01/21/18 05:00 Target Cells Not Reportable 01/21/18 05:00 Tear Drop Cells Not Reportable 01/21/18 05:00 Ovalocytes Not Reportable 01/21/18 05:00 Stomatocytes Few 01/21/18 05:00 Helmet Cells Not Reportable 01/21/18 05:00 Frankel-[place] Bodies Not Reportable 01/21/18 05:00 Ramona Rings Not Reportable 01/21/18 05:00 Jaclyn Cells Not Reportable 01/21/18 05:00 Bite Cells Not Reportable 01/21/18 05:00 Crenated Cell Not Reportable 01/21/18 05:00 Elliptocytes Not Reportable 01/21/18 05:00 Acanthocytes (Spur) Not Reportable 01/21/18 05:00 Rouleaux Not Reportable 01/21/18 05:00 Hemoglobin C Crystals Not Reportable 01/21/18 05:00 Schistocytes Not Reportable 01/21/18 05:00 Malaria parasites Not Reportable 01/21/18 05:00 Brock Bodies Not Reportable 01/21/18 05:00 Hem Pathologist Commnt No 01/21/18 05:00 PT 17.5 Sec. (12.2-14.9) H 01/20/18 07:00 INR 1.35 (0.87-1.13) H 01/20/18 07:00 Heparin Anti-Xa, Unfract Negative (Negative) 01/20/18 11:03 POC ABG pH 7.399 (7.35-7.45) 01/23/18 04:39 POC ABG pCO2 31.9 (35-45) L 01/23/18 04:39 POC ABG pO2 62 (80-105) L 01/23/18 04:39 POC ABG HCO3 19.7 01/23/18 04:39 POC ABG Total CO2 21 01/23/18 04:39 POC ABG O2 Sat 92 01/23/18 04:39 POC ABG Base Excess -5 01/23/18 04:39 VBG pH 7.273 (7.320-7.420) L 01/17/18 16:54 FiO2 40 % 01/23/18 04:39 Sodium 138 mmol/L (137-145) 01/24/18 03:40 Potassium 5.7 mmol/L (3.6-5.0) H D 01/24/18 03:40 Chloride 95.6 mmol/L (98-107) L 01/24/18 03:40 Carbon Dioxide 20 mmol/L (22-30) L 01/24/18 03:40 Anion Gap 28 mmol/L 01/24/18 03:40 BUN 96 mg/dL (7-17) H 01/24/18 03:40 Creatinine 4.2 mg/dL (0.7-1.2) H 01/24/18 03:40 Estimated GFR 11 ml/min 01/24/18 03:40 BUN/Creatinine Ratio 23 % 01/24/18 03:40 Glucose 166 mg/dL (65-100) H 01/24/18 03:40 POC Glucose 215 (70-105) H 01/23/18 05:24 Hemoglobin A1c 9.0 % (4-6) H 01/17/18 22:36 Lactic Acid 2.10 mmol/L (0.7-2.0) H* 01/21/18 05:00 Calcium 7.3 mg/dL (8.4-10.2) L 01/24/18 03:40 Total Bilirubin 1.10 mg/dL (0.1-1.2) 01/24/18 03:40 AST 52 units/L (5-40) H 01/24/18 03:40 ALT 235 units/L (7-56) H 01/24/18 03:40 Alkaline Phosphatase 105 units/L (35-129) 01/24/18 03:40 C-Reactive Protein 37.50 mg/dL (0.00-1.30) H 01/20/18 13:54 Total Protein 5.1 g/dL (6.3-8.2) L 01/24/18 03:40 Albumin 2.5 g/dL (3.9-5) L 01/24/18 03:40 Albumin/Globulin Ratio 1.0 % 01/24/18 03:40 Random Vancomycin 11.5 ug/mL (0-40.0) 01/24/18 03:40 ALISA Screen Negative (Negative) 01/20/18 Unknown Heparin-induced Plt Ab Negative (Negative) 01/20/18 11:03 UF Heparin High Dose 0 % Release 01/20/18 11:03 NEGRITA UFH Low Dose 0.1 0 % Release 01/20/18 11:03 NEGRITA UFH Low Dose 0.5 0 % Release 01/20/18 11:03 Hepatitis A IgM Ab Non-reactive (NonReactive) 01/20/18 07:00 Hep Bs Antigen Non-reactive (Negative) 01/20/18 07:00 Hep B Core IgM Ab Non-reactive (NonReactive) 01/20/18 07:00 Hepatitis C Antibody Non-reactive (NonReactive) 01/20/18 07:00 HIV 1&2 Antibody Rapid Non react (Non React) 01/20/18 Unknown HIV P24 Antigen Non react (Non React) 01/20/18 Unknown
[2018-01-24] MEDS ORDERED: NORMODYNE IV ONE (09:44)
[2018-01-24] MEDS: PEPCID PO SCH (09:51)
[2018-01-24] MEDS: ELIQUIS FEEDTUBE SCH ×2 (09:51→22:17)
--- NOTE | 2018-01-24 10:22 | Progress Note ---
Assessment and Plan Acute respiratory failure intubated on mechanical ventilation Pleural effusion, left History of active methamphetamine use Family lost contact with patient on Saturday. She was found unresponsive on saturday Daughter concerned about the time lapse and anticipating grave neurological prognosis History of pacemaker insertion in 2008 post PCI The pacemaker has never been checked since the. Family was told that battery is depleted and PPM is non-functional Tele is showing SR, sinus tach with no pauses History of CAD s/p PCI in 2008 History of heavy tobacco use Patient smokes 3 packs per day History of uncontrolled hypertension Acute renal failure requiring hemodialysis Cardiomyopathy, LVEF 30-35% Pneumonia/sepsis/leukocytosis/thrombocytopenia Conservative cardiac management. Subjective Date of service: 01/24/18 Principal diagnosis: Acute hypoxic respiratory failure, severe sepsis with shock , encephalopathy Interval history: Remains intubated on mechanical ventilation. Objective Vital Signs Temp Pulse Pulse Pulse Resp Resp BP 01/24/18 09:15 64 180/91 01/24/18 09:00 90 20 173/120 01/24/18 08:51 83 21 142/101 01/24/18 08:41 89 23 175/91 01/24/18 08:30 89 22 175/91 01/24/18 08:20 86 22 160/78 01/24/18 08:11 90 25 H 200/96 01/24/18 08:01 97 H 20 200/96 01/24/18 08:00 97.3 F L 87 23 01/24/18 07:51 95 H 16 191/87 01/24/18 07:41 93 H 30 H 183/111 01/24/18 07:30 97 H 31 H 183/111 01/24/18 07:21 97 H 26 H 179/114 01/24/18 07:11 98 H 26 H 150/89 01/24/18 07:01 91 H 23 150/89 01/24/18 06:51 88 22 163/82 01/24/18 06:41 95 H 19 159/74 01/24/18 06:30 92 H 23 159/74 01/24/18 06:21 94 H 23 157/82 01/24/18 06:11 89 22 154/88 01/24/18 06:00 93 H 22 154/88 01/24/18 05:51 100 H 28 H 190/123 01/24/18 05:41 96 H 29 H 176/98 /16/18 05:31 95 H 22 176/98 /16/18 05:21 97 H 30 H 165/107 16/18 05:11 94 H 28 H 0316/18 05:00 96 H 27 H 195/126 /16/18 04:59 98 H 184/84 /16/18 04:51 96 H 25 H 195/126 /16/18 04:41 95 H 24 184/84 /16/18 04:30 96 H 23 184/84 16/18 04:21 96 H 27 H 185/83 16/18 04:11 93 H 26 H 191/92 16/18 04:01 96 H 29 H 191/92 16/18 04:00 98 F 98 H 30 H 16/18 03:51 98 H 27 H 178/88 1618 03:41 97 H 23 151/91 16/18 03:31 95 H 26 H 151/91 1618 03:21 93 H 26 H 136/70 16/18 03:11 87 15 122/64 /16/18 03:01 89 18 122/64 16/18 02:51 87 15 165/90 1618 02:41 92 H 18 171/87 16/18 02:40 102 H 31 H 1618 02:30 96 H 102 H 21 35 H 171/87 1618 02:21 98 H 26 H 177/73 16/18 02:11 100 H 24 176/73 1618 02:00 98 H 26 H 176/73 16/18 01:51 99 H 23 170/86 1618 01:41 99 H 27 H 158/79 /16/18 01:30 94 H 26 H 158/79 16/18 01:21 96 H 28 H 158/104 1618 01:11 99 H 27 H 163/94 16/18 01:01 101 H 28 H 163/94 16/18 00:50 102 H 32 H 180/90 16/18 00:47 99 H 153/78 16/18 00:41 101 H 24 164/98 1618 00:30 99 H 25 H 164/98 16/18 00:21 99 H 27 H 153/78 16/18 00:11 102 H 22 162/90 /16/18 00:00 98.3 F 98 H 97 H 23 162/90 18 23:51 96 H 29 H 163/79 18 23:41 101 H 22 140/84 15/18 23:30 99 H 32 H 140/84 18 23:21 102 H 27 H 145/90 18 23:11 103 H 24 145/81 /18 23:00 101 H 21 145/81 /15/18 22:51 103 H 27 H 155/89 18 22:41 102 H 30 H 152/91 18 22:30 101 H 25 H 152/91 18 22:21 101 H 33 H 173/92 18 22:11 100 H 25 H 180/110 18 22:10 98 H 180/110 18 22:00 100 H 22 180/110 18 21:51 96 H 20 174/115 1518 21:46 93 H 19 18 21:41 95 H 24 147/81 1518 21:30 94 H 22 147/81 18 21:21 89 26 H 171/63 /15/18 21:11 92 H 21 169/73 /15/18 21:01 90 22 169/73 01/23/18 20:51 92 H 23 171/63 /15/18 20:50 89 22 171/63 15/18 20:45 96 H 24 1518 20:41 98 H 27 H 170/98 /15/18 20:31 94 H 24 170/98 /15/18 20:21 96 H 24 152/76 1518 20:11 93 H 23 138/85 /15/18 20:00 98.1 F 94 H 26 H 138/85 15/18 19:51 90 23 132/82 03/15/18 19:42 95 H 136/86 03/15/18 19:41 93 H 21 136/86 03/15/18 19:30 94 H 24 136/86 03/15/18 19:21 94 H 23 119/72 03/15/18 19:11 90 22 115/69 03/15/18 19:00 95 H 23 115/69 /15/18 18:57 97.6 F 95 H 22 116/66 /15/18 18:51 96 H 24 116/66 03/15/18 18:45 95 H 116/66 03/15/18 18:41 93 H 23 118/63 /15/18 18:30 91 H 24 118/63 /15/18 18:21 95 H 25 H 116/84 /15/18 18:15 94 H 116/34 /15/18 18:11 93 H 26 H 124/73 /15/18 18:00 91 H 27 H 124/73 15/18 17:51 92 H 26 H 122/77 15/18 17:45 92 H 122/77 15/18 17:41 95 H 25 H 128/78 18 17:30 94 H 28 H 128/78 01/23/18 17:21 100 H 30 H 148/83 1518 17:15 94 H 153/86 15/18 17:11 98 H 32 H 148/83 18 17:04 98 H 148/83 18 17:00 94 H 28 H 148/83 1518 16:50 97 H 32 H 141/85 15/18 16:45 96 H 155/80 18 16:41 96 H 30 H 150/87 1518 16:30 97 H 34 H 150/87 15/18 16:21 95 H 31 H 160/81 15/18 16:15 92 H 160/81 15/18 16:11 94 H 30 H 188/86 /15/18 16:01 91 H 30 H 188/86 15/18 16:00 97.6 F 93 H 188/86 15/18 15:51 96 H 33 H 189/84 03/15/18 15:45 97 H 189/84 15/18 15:41 92 H 32 H 194/92 15/18 15:30 96 H 33 H 194/92 0315/18 15:21 99 H 32 H 172/84 03/15/18 15:15 100 H 172/84 03/15/18 15:11 101 H 32 H 178/83 /1518 15:00 97.6 F 104 H 34 H 178/83 1518 14:51 103 H 35 H 188/97 18 14:41 101 H 34 H 177/86 18 14:30 102 H 32 H 177/86 18 14:21 102 H 29 H 210/84 18 14:11 100 H 30 H 197/94 18 14:01 99 H 26 H 197/94 18 13:51 95 H 33 H 154/77 01/23/18 13:41 101 H 28 H 200/104 18 13:35 105 H 18 01/23/18 13:30 101 H 36 H 196/92 01/23/18 13:25 102 H 24 01/23/18 13:21 96 H 32 H 198/102 01/23/18 13:11 99 H 34 H 202/115 01/23/18 13:01 101 H 28 H 193/107 18 13:00 102 H 197/101 01/23/18 12:51 99 H 22 166/74 01/23/18 12:40 97 H 28 H 202/115 18 12:31 102 H 27 H 202/115 18 12:20 100 H 31 H 200/107 01/23/18 12:11 101 H 23 178/92 01/23/18 12:01 100 H 28 H 164/128 18 12:00 99.7 F H 101 H 28 H 18 11:51 91 H 19 110/68 18 11:41 81 24 106/56 18 11:30 78 24 106/56 18 11:21 83 24 97/56 18 11:11 80 24 88/45 18 11:00 80 24 95/39 18 10:51 75 24 86/38 18 10:40 78 24 84/36 18 10:30 77 25 H 84/36 03/15/18 10:21 80 25 H 74/44 Pulse Ox Pulse Ox 01/24/18 09:15 100 01/24/18 09:00 99 01/24/18 08:51 100 01/24/18 08:41 99 01/24/18 08:30 100 01/24/18 08:20 99 01/24/18 08:11 01/24/18 08:01 97 01/24/18 08:00 96 01/24/18 07:51 99 01/24/18 07:41 96 01/24/18 07:30 96 01/24/18 07:21 96 01/24/18 07:11 97 01/24/18 07:01 100 01/24/18 06:51 100 01/24/18 06:41 99 01/24/18 06:30 100 01/24/18 06:21 99 01/24/18 06:11 99 01/24/18 06:00 98 01/24/18 05:51 01/24/18 05:41 01/24/18 05:31 01/24/18 05:21 01/24/18 05:11 01/24/18 05:00 01/24/18 04:59 98 01/24/18 04:51 01/24/18 04:41 98 01/24/18 04:30 99 01/24/18 04:21 99 01/24/18 04:11 100 01/24/18 04:01 97 01/24/18 04:00 95 01/24/18 03:51 97 01/24/18 03:41 98 01/24/18 03:31 97 01/24/18 03:21 99 01/24/18 03:11 100 01/24/18 03:01 99 01/24/18 02:51 99 01/24/18 02:41 99 01/24/18 02:40 01/24/18 02:30 99 01/24/18 02:21 99 01/24/18 02:11 100 01/24/18 02:00 98 01/24/18 01:51 01/24/18 01:41 99 01/24/18 01:30 98 01/24/18 01:21 98 01/24/18 01:11 96 01/24/18 01:01 96 01/24/18 00:50 94 01/24/18 00:47 99 18 00:41 95 18 00:30 99 18 00:21 99 18 00:11 99 18 00:00 98 18 23:51 99 18 23:41 97 01/23/18 23:30 99 18 23:21 99 01/23/18 23:11 98 01/23/18 23:00 98 01/23/18 22:51 97 18 22:41 96 01/23/18 22:30 98 01/23/18 22:21 97 01/23/18 22:11 97 01/23/18 22:10 01/23/18 22:00 98 01/23/18 21:51 97 01/23/18 21:46 01/23/18 21:41 97 01/23/18 21:30 01/23/18 21:21 94 01/23/18 21:11 94 01/23/18 21:01 94 01/23/18 20:51 94 18 20:50 95 01/23/18 20:45 18 20:41 98 01/23/18 20:31 97 01/23/18 20:21 97 01/23/18 20:11 97 01/23/18 20:00 97 18 19:51 97 18 19:42 97 18 19:41 97 01/23/18 19:30 96 01/23/18 19:21 99 01/23/18 19:11 99 18 19:00 98 18 18:57 99 18 18:51 99 18 18:45 18 18:41 99 18 18:30 97 18 18:21 98 01/23/18 18:15 18 18:11 99 18 18:00 99 18 17:51 18 17:45 18 17:41 01/23/18 17:30 18 17:21 97 01/23/18 17:15 03/15/18 17:11 97 03/15/18 17:04 01/23/18 17:00 98 01/23/18 16:50 82 L 01/23/18 16:45 01/23/18 16:41 99 01/23/18 16:30 97 01/23/18 16:21 98 01/23/18 16:15 01/23/18 16:11 99 01/23/18 16:01 95 01/23/18 16:00 01/23/18 15:51 95 01/23/18 15:45 01/23/18 15:41 96 01/23/18 15:30 94 01/23/18 15:21 93 01/23/18 15:15 01/23/18 15:11 93 01/23/18 15:00 93 95 01/23/18 14:51 94 01/23/18 14:41 94 01/23/18 14:30 85 01/23/18 14:21 89 01/23/18 14:11 83 L 01/23/18 14:01 99 01/23/18 13:51 97 01/23/18 13:41 94 01/23/18 13:35 01/23/18 13:30 94 01/23/18 13:25 01/23/18 13:21 94 01/23/18 13:11 01/23/18 13:01 93 01/23/18 13:00 93 01/23/18 12:51 99 01/23/18 12:40 92 01/23/18 12:31 93 01/23/18 12:20 93 01/23/18 12:11 93 01/23/18 12:01 95 01/23/18 12:00 98 01/23/18 11:51 96 01/23/18 11:41 95 01/23/18 11:30 96 01/23/18 11:21 96 01/23/18 11:11 98 01/23/18 11:00 99 01/23/18 10:51 100 01/23/18 10:40 98 01/23/18 10:30 99 01/23/18 10:21 - Physical Examination General: Other (intubated on the vent) Cardiac: Positive: Reg Rate and Rhythm - Labs and Meds Cardiac Enzymes 01/24/18 Range/Units 03:40 AST 52 H (5-40) units/L CBC 01/24/18 Range/Units 03:40 WBC 34.5 H (4.5-11.0) K/mm3 RBC 4.21 (3.65-5.03) M/mm3 Hgb 11.2 (10.1-14.3) gm/dl Hct 35.6 (30.3-42.9) % Plt Count 130 L (140-440) K/mm3 Comprehensive Metabolic Panel 01/24/18 Range/Units 03:40 Sodium 138 (137-145) mmol/L Potassium 5.7 H D (3.6-5.0) mmol/L Chloride 95.6 L (98-107) mmol/L Carbon Dioxide 20 L (22-30) mmol/L BUN 96 H (7-17) mg/dL Creatinine 4.2 H (0.7-1.2) mg/dL Glucose 166 H (65-100) mg/dL Calcium 7.3 L (8.4-10.2) mg/dL AST 52 H (5-40) units/L ALT 235 H (7-56) units/L Alkaline Phosphatase 105 (35-129) units/L Total Protein 5.1 L (6.3-8.2) g/dL Albumin 2.5 L (3.9-5) g/dL - Allied health notes Allied health notes reviewed: RT
[2018-01-24] MEDS ORDERED: VANCOMYCIN/0.45 NS 1 GM/250 ML 1 GM/250 ML BAG IV ONE (12:00)
--- NOTE | 2018-01-24 12:13 | Progress Note ---
Assessment and Plan Impression: * JANESSA-with ATN * VAP * Pl Effusion * Cardiomyopathy * Anemia * Sepsis * Drug abuse * DM type 2 Plan: * HD q MWF and prn * monitory for renal recovery * strict i/os * avoid nephrotoxins * uf as tolerated with HD * daily lytes * ?thoracentesis * IV abx per primary team Subjective Date of service: 01/24/18 Principal diagnosis: Acute hypoxic respiratory failure, severe sepsis with shock , encephalopathy Interval history: resting well in bed today Objective - Exam Narrative Exam: HEENT: Oral mucosa moist no pallor or icterus, orally intubated Neck: Supple no JVD Chest: bilateral coarse breath sounds diminished at lung bases CVS: Regular rate and rhythm S1 and S2 heard Abdomen: Soft nontender no suprapubic masses no organomegaly appreciable Extremity: Dry skin less than 1+ peripheral edema Musculoskeletal: No joint effusion noted in knees and ankle Neurological: encephalopathic Dermatology: No petechial rashes Psychiatry: No evidence of any agitation and aggression noted - Vital Signs Vital signs: Vital Signs - 12hr 01/24/18 01/24/18 01/24/18 00:11 00:21 00:30 Temperature Pulse Rate 102 H 99 H 99 H Pulse Rate [ Anterior Bilateral Throughout] Pulse Rate [ From Monitor] Respiratory 22 27 H 25 H Rate Respiratory Rate [Anterior Bilateral Throughout] Blood Pressure 162/90 153/78 164/98 O2 Sat by Pulse 99 99 99 Oximetry 01/24/18 01/24/18 01/24/18 00:41 00:47 00:50 Temperature Pulse Rate 101 H 99 H 102 H Pulse Rate [ Anterior Bilateral Throughout] Pulse Rate [ From Monitor] Respiratory 24 32 H Rate Respiratory Rate [Anterior Bilateral Throughout] Blood Pressure 164/98 153/78 180/90 O2 Sat by Pulse 95 99 94 Oximetry 01/24/18 01/24/18 01/24/18 01:01 01:11 01:21 Temperature Pulse Rate 101 H 99 H 96 H Pulse Rate [ Anterior Bilateral Throughout] Pulse Rate [ From Monitor] Respiratory 28 H 27 H 28 H Rate Respiratory Rate [Anterior Bilateral Throughout] Blood Pressure 163/94 163/94 158/104 O2 Sat by Pulse 96 96 98 Oximetry 01/24/18 01/24/18 01/24/18 01:30 01:41 01:51 Temperature Pulse Rate 94 H 99 H 99 H Pulse Rate [ Anterior Bilateral Throughout] Pulse Rate [ From Monitor] Respiratory 26 H 27 H 23 Rate Respiratory Rate [Anterior Bilateral Throughout] Blood Pressure 158/79 158/79 170/86 O2 Sat by Pulse 98 99 Oximetry 01/24/18 01/24/18 01/24/18 02:00 02:11 02:21 Temperature Pulse Rate 98 H 100 H 98 H Pulse Rate [ Anterior Bilateral Throughout] Pulse Rate [ From Monitor] Respiratory 26 H 24 26 H Rate Respiratory Rate [Anterior Bilateral Throughout] Blood Pressure 176/73 176/73 177/73 O2 Sat by Pulse 98 100 99 Oximetry 01/24/18 01/24/18 01/24/18 02:30 02:40 02:41 Temperature Pulse Rate 96 H 92 H Pulse Rate [ 102 H 102 H Anterior Bilateral Throughout] Pulse Rate [ From Monitor] Respiratory 21 18 Rate Respiratory 35 H 31 H Rate [Anterior Bilateral Throughout] Blood Pressure 171/87 171/87 O2 Sat by Pulse 99 99 Oximetry 01/24/18 01/24/18 01/24/18 02:51 03:01 03:11 Temperature Pulse Rate 87 89 87 Pulse Rate [ Anterior Bilateral Throughout] Pulse Rate [ From Monitor] Respiratory 15 18 15 Rate Respiratory Rate [Anterior Bilateral Throughout] Blood Pressure 165/90 122/64 122/64 O2 Sat by Pulse 99 99 100 Oximetry 01/24/18 01/24/18 01/24/18 03:21 03:31 03:41 Temperature Pulse Rate 93 H 95 H 97 H Pulse Rate [ Anterior Bilateral Throughout] Pulse Rate [ From Monitor] Respiratory 26 H 26 H 23 Rate Respiratory Rate [Anterior Bilateral Throughout] Blood Pressure 136/70 151/91 151/91 O2 Sat by Pulse 99 97 98 Oximetry 01/24/18 01/24/18 01/24/18 03:51 04:00 04:01 Temperature 98 F Pulse Rate 98 H 96 H Pulse Rate [ Anterior Bilateral Throughout] Pulse Rate [ 98 H From Monitor] Respiratory 27 H 30 H 29 H Rate Respiratory Rate [Anterior Bilateral Throughout] Blood Pressure 178/88 191/92 O2 Sat by Pulse 97 95 97 Oximetry 01/24/18 01/24/18 01/24/18 04:11 04:21 04:30 Temperature Pulse Rate 93 H 96 H 96 H Pulse Rate [ Anterior Bilateral Throughout] Pulse Rate [ From Monitor] Respiratory 26 H 27 H 23 Rate Respiratory Rate [Anterior Bilateral Throughout] Blood Pressure 191/92 185/83 184/84 O2 Sat by Pulse 100 99 99 Oximetry 01/24/18 01/24/18 01/24/18 04:41 04:51 04:59 Temperature Pulse Rate 95 H 96 H 98 H Pulse Rate [ Anterior Bilateral Throughout] Pulse Rate [ From Monitor] Respiratory 24 25 H Rate Respiratory Rate [Anterior Bilateral Throughout] Blood Pressure 184/84 195/126 184/84 O2 Sat by Pulse 98 98 Oximetry 01/24/18 01/24/18 01/24/18 05:00 05:11 05:21 Temperature Pulse Rate 96 H 94 H 97 H Pulse Rate [ Anterior Bilateral Throughout] Pulse Rate [ From Monitor] Respiratory 27 H 28 H 30 H Rate Respiratory Rate [Anterior Bilateral Throughout] Blood Pressure 195/126 165/107 O2 Sat by Pulse Oximetry 01/24/18 01/24/18 01/24/18 05:31 05:41 05:51 Temperature Pulse Rate 95 H 96 H 100 H Pulse Rate [ Anterior Bilateral Throughout] Pulse Rate [ From Monitor] Respiratory 22 29 H 28 H Rate Respiratory Rate [Anterior Bilateral Throughout] Blood Pressure 176/98 176/98 190/123 O2 Sat by Pulse Oximetry 01/24/18 01/24/18 01/24/18 06:00 06:11 06:21 Temperature Pulse Rate 93 H 89 94 H Pulse Rate [ Anterior Bilateral Throughout] Pulse Rate [ From Monitor] Respiratory 22 22 23 Rate Respiratory Rate [Anterior Bilateral Throughout] Blood Pressure 154/88 154/88 157/82 O2 Sat by Pulse 98 99 99 Oximetry 01/24/18 01/24/18 01/24/18 06:30 06:41 06:51 Temperature Pulse Rate 92 H 95 H 88 Pulse Rate [ Anterior Bilateral Throughout] Pulse Rate [ From Monitor] Respiratory 23 19 22 Rate Respiratory Rate [Anterior Bilateral Throughout] Blood Pressure 159/74 159/74 163/82 O2 Sat by Pulse 100 99 100 Oximetry 01/24/18 01/24/18 01/24/18 07:01 07:11 07:21 Temperature Pulse Rate 91 H 98 H 97 H Pulse Rate [ Anterior Bilateral Throughout] Pulse Rate [ From Monitor] Respiratory 23 26 H 26 H Rate Respiratory Rate [Anterior Bilateral Throughout] Blood Pressure 150/89 150/89 179/114 O2 Sat by Pulse 100 97 96 Oximetry 01/24/18 01/24/18 01/24/18 07:30 07:41 07:51 Temperature Pulse Rate 97 H 93 H 95 H Pulse Rate [ Anterior Bilateral Throughout] Pulse Rate [ From Monitor] Respiratory 31 H 30 H 16 Rate Respiratory Rate [Anterior Bilateral Throughout] Blood Pressure 183/111 183/111 191/87 O2 Sat by Pulse 96 96 99 Oximetry 01/24/18 01/24/18 01/24/18 08:00 08:01 08:11 Temperature 97.3 F L Pulse Rate 97 H 90 Pulse Rate [ Anterior Bilateral Throughout] Pulse Rate [ 87 From Monitor] Respiratory 23 20 25 H Rate Respiratory Rate [Anterior Bilateral Throughout] Blood Pressure 200/96 200/96 O2 Sat by Pulse 96 97 Oximetry 01/24/18 01/24/18 01/24/18 08:20 08:30 08:41 Temperature Pulse Rate 86 89 89 Pulse Rate [ Anterior Bilateral Throughout] Pulse Rate [ From Monitor] Respiratory 22 22 23 Rate Respiratory Rate [Anterior Bilateral Throughout] Blood Pressure 160/78 175/91 175/91 O2 Sat by Pulse 99 100 99 Oximetry 01/24/18 01/24/18 01/24/18 08:51 09:00 09:11 Temperature Pulse Rate 83 90 97 H Pulse Rate [ Anterior Bilateral Throughout] Pulse Rate [ From Monitor] Respiratory 21 20 29 H Rate Respiratory Rate [Anterior Bilateral Throughout] Blood Pressure 142/101 173/120 173/120 O2 Sat by Pulse 100 99 Oximetry 01/24/18 01/24/18 01/24/18 09:15 09:21 09:30 Temperature Pulse Rate 64 96 H 97 H Pulse Rate [ 68 Anterior Bilateral Throughout] Pulse Rate [ From Monitor] Respiratory 30 H 24 Rate Respiratory 20 Rate [Anterior Bilateral Throughout] Blood Pressure 180/91 204/135 221/125 O2 Sat by Pulse 100 Oximetry 01/24/18 01/24/18 01/24/18 09:40 09:41 09:51 Temperature Pulse Rate 94 H 85 Pulse Rate [ 116 H Anterior Bilateral Throughout] Pulse Rate [ From Monitor] Respiratory 21 18 Rate Respiratory 20 Rate [Anterior Bilateral Throughout] Blood Pressure 221/125 180/91 O2 Sat by Pulse Oximetry 01/24/18 01/24/18 01/24/18 10:01 10:11 10:21 Temperature Pulse Rate 66 70 71 Pulse Rate [ Anterior Bilateral Throughout] Pulse Rate [ From Monitor] Respiratory 20 21 20 Rate Respiratory Rate [Anterior Bilateral Throughout] Blood Pressure 96/56 96/56 111/56 O2 Sat by Pulse 100 99 100 Oximetry 01/24/18 01/24/18 01/24/18 10:30 10:31 10:41 Temperature Pulse Rate 68 69 73 Pulse Rate [ Anterior Bilateral Throughout] Pulse Rate [ From Monitor] Respiratory 21 21 Rate Respiratory Rate [Anterior Bilateral Throughout] Blood Pressure 114/62 111/56 114/62 O2 Sat by Pulse 92 100 Oximetry 01/24/18 01/24/18 01/24/18 10:51 11:00 11:11 Temperature Pulse Rate 76 78 80 Pulse Rate [ Anterior Bilateral Throughout] Pulse Rate [ From Monitor] Respiratory 17 13 20 Rate Respiratory Rate [Anterior Bilateral Throughout] Blood Pressure 128/82 150/96 150/96 O2 Sat by Pulse 100 99 100 Oximetry 01/24/18 01/24/18 11:21 11:30 Temperature Pulse Rate 80 79 Pulse Rate [ Anterior Bilateral Throughout] Pulse Rate [ From Monitor] Respiratory 15 15 Rate Respiratory Rate [Anterior Bilateral Throughout] Blood Pressure 160/95 151/91 O2 Sat by Pulse 98 99 Oximetry - Lab 01/24/18 03:40 01/24/18 03:40 Most recent lab results Calcium 7.3 mg/dL (8.4-10.2) L 01/24/18 03:40
[2018-01-24] MEDS: LOPRESSOR IV SCH ×2 (12:26→18:43)
[2018-01-24] MEDS: fentaNYL DRIP Premix 2,000 MCG/100 ML BAG IV SCH (12:27)
--- NOTE | 2018-01-24 13:10 | Progress Note ---
Assessment and Plan Assessment: 1) Severe sepsis with septic shock and MODS: shock resolved, fever resolved and worsening leukocytosis 24-->34K. Etiology most likely unclear. DDx: pneumonia with para-pneumonic effusion ? pelvic collections? PE. CRP=37 -blood cx negative -legs US neg for DVT 2) Acute respiratory failure 3) Presumed pneumonia with large left pleural effusion: -repeat CXR - decreased effusion -TA no growth 4) JANESSA: worsening now on HD 5) Presumed ? drug abuse 6) DM-poorly controlled 7) Bilateral fingers ischemic changes: from pressors ? 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 flushing ? zosyn allergy 11) Acute encephalopathy 12) Pelvic collections x 3: ? etiology 13) Penicillin allergy Plan: -obtain CT chest,abd,pelvis w/o contrast respiratory. Discussed with Dr Aleman -taper down steroids -continue levaquin and flagyl - day 2 -continue vancomycin - day 7 -follow-up tracheal asp cultures and procalcitonin - pending -monitor leukocytosis I am rounding on Saturday Thank you for your consultation, will follow up with you. . Michaela Parekh MD Infectious Diseases Specialist [facility] M [phone] O [phone] Subjective Date of service: 01/24/18 Principal diagnosis: Acute hypoxic respiratory failure, severe sepsis with shock , encephalopathy Interval history: Remains intubated, sedated, no fever Microbiology: Blood cultures: 01/17 neg 01/20 ngtd Urine cultures: Respiratory cultures: TA 01/17 ngtd / Gram stain - many GPC in chains Current Antimicrobials: levaquin 01/23 flagyl 01/23 Vancomycin 01/18 Previous Antimicrobials: Zosyn 01/18 Objective - Exam Narrative Exam: General appearance: sedated on the vent, alert eyes opening Eyes: anicteric sclerae, moist conjunctivae; no lid-lag; PERRLA HENT: Atraumatic; oropharynx clear +ETT +NGT Neck: Trachea midline; supple, no thyromegaly or lymphadenopathy Lungs: juan rhonchi CV: tachy Abdomen: Soft, non-tender; distended Extremities: No peripheral edema or extremity lymphadenopathy Skin: resolved erythematous macular rash on chest and upper arms. +bilateral multiple fingers purpuric changes Psych: sedated Neuro: sedated Lines: right fem vascath, right IJ TLC - Constitutional Vitals: Vital Signs Temp Pulse Resp BP Pulse Ox 98.3 F 78 19 145/76 100 01/24/18 12:00 01/24/18 12:50 01/24/18 12:31 01/24/18 12:50 01/24/18 12:50 Temperature -Last 24 Hours Temperature 98.3 F Temperature 98.3 F Temperature 97.3 F Temperature 98 F Temperature 98.3 F Temperature 98.1 F Temperature 97.6 F Temperature 97.6 F Temperature 97.6 F - Labs CBC & Chem 7: 01/24/18 03:40 01/24/18 03:40 Labs: Abnormal lab results 01/23/18 01/23/18 01/23/18 Range/Units 11:38 14:20 17:26 WBC (4.5-11.0) K/mm3 MCH (28-32) pg Plt Count (140-440) K/mm3 POC ABG pCO2 31.4 L (35-45) POC ABG pO2 55 L (80-105) Potassium (3.6-5.0) mmol/L Chloride (98-107) mmol/L Carbon Dioxide (22-30) mmol/L BUN (7-17) mg/dL Creatinine (0.7-1.2) mg/dL Glucose (65-100) mg/dL POC Glucose 182 H 252 H (70-105) Calcium (8.4-10.2) mg/dL AST (5-40) units/L ALT (7-56) units/L Total Protein (6.3-8.2) g/dL Albumin (3.9-5) g/dL 01/24/18 01/24/18 01/24/18 Range/Units 00:10 03:40 03:40 WBC 34.5 H (4.5-11.0) K/mm3 MCH 27 L (28-32) pg Plt Count 130 L (140-440) K/mm3 POC ABG pCO2 (35-45) POC ABG pO2 (80-105) Potassium 5.7 H D (3.6-5.0) mmol/L Chloride 95.6 L (98-107) mmol/L Carbon Dioxide 20 L (22-30) mmol/L BUN 96 H (7-17) mg/dL Creatinine 4.2 H (0.7-1.2) mg/dL Glucose 166 H (65-100) mg/dL POC Glucose 225 H (70-105) Calcium 7.3 L (8.4-10.2) mg/dL AST 52 H (5-40) units/L ALT 235 H (7-56) units/L Total Protein 5.1 L (6.3-8.2) g/dL Albumin 2.5 L (3.9-5) g/dL 01/24/18 01/24/18 Range/Units 06:06 11:36 WBC (4.5-11.0) K/mm3 MCH (28-32) pg Plt Count (140-440) K/mm3 POC ABG pCO2 (35-45) POC ABG pO2 (80-105) Potassium (3.6-5.0) mmol/L Chloride (98-107) mmol/L Carbon Dioxide (22-30) mmol/L BUN (7-17) mg/dL Creatinine (0.7-1.2) mg/dL Glucose (65-100) mg/dL POC Glucose 162 H 160 H (70-105) Calcium (8.4-10.2) mg/dL AST (5-40) units/L ALT (7-56) units/L Total Protein (6.3-8.2) g/dL Albumin (3.9-5) g/dL
--- NOTE | 2018-01-24 13:18 | Progress Note ---
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 effusion vs infiltrate as possible source (+/- Thoracentesis) - quickly wean off steroids at this stage re: ? steroid leucocytosis - continue stress ulcer prophylaxis - continue Empiric antibiotics, plan to de-escalate per ID recs - continue supplemental oxygen to wean for oxygen saturations >90% (on 50% FiO2 now) - Wean vasopressor support for MAP>65 - continue Lung protective strategies, ARDS-net protocol - send repeat lactic acid and send CRP levels re: anti-infective de-escalation - continue other care per attending/other consultants ....remains critically ill on MVS and at high risk for further deterioration including ...35' CCT Subjective Date of service: 01/24/18 Principal diagnosis: Acute hypoxic respiratory failure, severe sepsis with shock , encephalopathy Interval history: Patient seen today for: Acute hypoxic respiratory failure, severe sepsis with shock, encephalopathy Seen and examined at bedside; 24-hour events reviewed; nursing and respiratory care staff consulted; no adverse overnight events reported to me; remains on MVS ; AMS is persistent; more active but still not purposeful; daughter in room and care plan discussed; FiO2 at 40% and peep at 8; leucocytosis is worsening but fevers better Objective Vital Signs - 12hr 01/24/18 01/24/18 01/24/18 01:21 01:30 01:41 Temperature Pulse Rate 96 H 94 H 99 H Pulse Rate [ Anterior Bilateral Throughout] Pulse Rate [ From Monitor] Respiratory 28 H 26 H 27 H Rate Respiratory Rate [Anterior Bilateral Throughout] Blood Pressure 158/104 158/79 158/79 O2 Sat by Pulse 98 98 99 Oximetry 01/24/18 01/24/18 01/24/18 01:51 02:00 02:11 Temperature Pulse Rate 99 H 98 H 100 H Pulse Rate [ Anterior Bilateral Throughout] Pulse Rate [ From Monitor] Respiratory 23 26 H 24 Rate Respiratory Rate [Anterior Bilateral Throughout] Blood Pressure 170/86 176/73 176/73 O2 Sat by Pulse 98 100 Oximetry 01/24/18 01/24/18 01/24/18 02:21 02:30 02:40 Temperature Pulse Rate 98 H 96 H Pulse Rate [ 102 H 102 H Anterior Bilateral Throughout] Pulse Rate [ From Monitor] Respiratory 26 H 21 Rate Respiratory 35 H 31 H Rate [Anterior Bilateral Throughout] Blood Pressure 177/73 171/87 O2 Sat by Pulse 99 99 Oximetry 01/24/18 01/24/18 01/24/18 02:41 02:51 03:01 Temperature Pulse Rate 92 H 87 89 Pulse Rate [ Anterior Bilateral Throughout] Pulse Rate [ From Monitor] Respiratory 18 15 18 Rate Respiratory Rate [Anterior Bilateral Throughout] Blood Pressure 171/87 165/90 122/64 O2 Sat by Pulse 99 99 99 Oximetry 01/24/18 01/24/18 01/24/18 03:11 03:21 03:31 Temperature Pulse Rate 87 93 H 95 H Pulse Rate [ Anterior Bilateral Throughout] Pulse Rate [ From Monitor] Respiratory 15 26 H 26 H Rate Respiratory Rate [Anterior Bilateral Throughout] Blood Pressure 122/64 136/70 151/91 O2 Sat by Pulse 100 99 97 Oximetry 01/24/18 01/24/18 01/24/18 03:41 03:51 04:00 Temperature 98 F Pulse Rate 97 H 98 H Pulse Rate [ Anterior Bilateral Throughout] Pulse Rate [ 98 H From Monitor] Respiratory 23 27 H 30 H Rate Respiratory Rate [Anterior Bilateral Throughout] Blood Pressure 151/91 178/88 O2 Sat by Pulse 98 97 95 Oximetry 01/24/18 01/24/18 01/24/18 04:01 04:11 04:21 Temperature Pulse Rate 96 H 93 H 96 H Pulse Rate [ Anterior Bilateral Throughout] Pulse Rate [ From Monitor] Respiratory 29 H 26 H 27 H Rate Respiratory Rate [Anterior Bilateral Throughout] Blood Pressure 191/92 191/92 185/83 O2 Sat by Pulse 97 100 99 Oximetry 01/24/18 01/24/18 01/24/18 04:30 04:41 04:51 Temperature Pulse Rate 96 H 95 H 96 H Pulse Rate [ Anterior Bilateral Throughout] Pulse Rate [ From Monitor] Respiratory 23 24 25 H Rate Respiratory Rate [Anterior Bilateral Throughout] Blood Pressure 184/84 184/84 195/126 O2 Sat by Pulse 99 98 Oximetry 01/24/18 01/24/18 01/24/18 04:59 05:00 05:11 Temperature Pulse Rate 98 H 96 H 94 H Pulse Rate [ Anterior Bilateral Throughout] Pulse Rate [ From Monitor] Respiratory 27 H 28 H Rate Respiratory Rate [Anterior Bilateral Throughout] Blood Pressure 184/84 195/126 O2 Sat by Pulse 98 Oximetry 01/24/18 01/24/18 01/24/18 05:21 05:31 05:41 Temperature Pulse Rate 97 H 95 H 96 H Pulse Rate [ Anterior Bilateral Throughout] Pulse Rate [ From Monitor] Respiratory 30 H 22 29 H Rate Respiratory Rate [Anterior Bilateral Throughout] Blood Pressure 165/107 176/98 176/98 O2 Sat by Pulse Oximetry 01/24/18 01/24/18 01/24/18 05:51 06:00 06:11 Temperature Pulse Rate 100 H 93 H 89 Pulse Rate [ Anterior Bilateral Throughout] Pulse Rate [ From Monitor] Respiratory 28 H 22 22 Rate Respiratory Rate [Anterior Bilateral Throughout] Blood Pressure 190/123 154/88 154/88 O2 Sat by Pulse 98 99 Oximetry 01/24/18 01/24/18 01/24/18 06:21 06:30 06:41 Temperature Pulse Rate 94 H 92 H 95 H Pulse Rate [ Anterior Bilateral Throughout] Pulse Rate [ From Monitor] Respiratory 23 23 19 Rate Respiratory Rate [Anterior Bilateral Throughout] Blood Pressure 157/82 159/74 159/74 O2 Sat by Pulse 99 100 99 Oximetry 01/24/18 01/24/18 01/24/18 06:51 07:01 07:11 Temperature Pulse Rate 88 91 H 98 H Pulse Rate [ Anterior Bilateral Throughout] Pulse Rate [ From Monitor] Respiratory 22 23 26 H Rate Respiratory Rate [Anterior Bilateral Throughout] Blood Pressure 163/82 150/89 150/89 O2 Sat by Pulse 100 100 97 Oximetry 01/24/18 01/24/18 01/24/18 07:21 07:30 07:41 Temperature Pulse Rate 97 H 97 H 93 H Pulse Rate [ Anterior Bilateral Throughout] Pulse Rate [ From Monitor] Respiratory 26 H 31 H 30 H Rate Respiratory Rate [Anterior Bilateral Throughout] Blood Pressure 179/114 183/111 183/111 O2 Sat by Pulse 96 96 96 Oximetry 01/24/18 01/24/18 01/24/18 07:51 08:00 08:01 Temperature 97.3 F L Pulse Rate 95 H 97 H Pulse Rate [ Anterior Bilateral Throughout] Pulse Rate [ 87 From Monitor] Respiratory 16 23 20 Rate Respiratory Rate [Anterior Bilateral Throughout] Blood Pressure 191/87 200/96 O2 Sat by Pulse 99 96 97 Oximetry 01/24/18 01/24/18 01/24/18 08:11 08:20 08:30 Temperature Pulse Rate 90 86 89 Pulse Rate [ Anterior Bilateral Throughout] Pulse Rate [ From Monitor] Respiratory 25 H 22 22 Rate Respiratory Rate [Anterior Bilateral Throughout] Blood Pressure 200/96 160/78 175/91 O2 Sat by Pulse 99 100 Oximetry 01/24/18 01/24/18 01/24/18 08:41 08:51 09:00 Temperature Pulse Rate 89 83 90 Pulse Rate [ Anterior Bilateral Throughout] Pulse Rate [ From Monitor] Respiratory 23 21 20 Rate Respiratory Rate [Anterior Bilateral Throughout] Blood Pressure 175/91 142/101 173/120 O2 Sat by Pulse 99 100 99 Oximetry 01/24/18 01/24/18 01/24/18 09:11 09:15 09:21 Temperature Pulse Rate 97 H 64 96 H Pulse Rate [ Anterior Bilateral Throughout] Pulse Rate [ From Monitor] Respiratory 29 H 30 H Rate Respiratory Rate [Anterior Bilateral Throughout] Blood Pressure 173/120 180/91 204/135 O2 Sat by Pulse 100 Oximetry 01/24/18 01/24/18 01/24/18 09:30 09:40 09:41 Temperature Pulse Rate 97 H 94 H Pulse Rate [ 68 116 H Anterior Bilateral Throughout] Pulse Rate [ From Monitor] Respiratory 24 21 Rate Respiratory 20 20 Rate [Anterior Bilateral Throughout] Blood Pressure 221/125 221/125 O2 Sat by Pulse Oximetry 01/24/18 01/24/18 01/24/18 09:51 10:01 10:11 Temperature Pulse Rate 85 66 70 Pulse Rate [ Anterior Bilateral Throughout] Pulse Rate [ From Monitor] Respiratory 18 20 21 Rate Respiratory Rate [Anterior Bilateral Throughout] Blood Pressure 180/91 96/56 96/56 O2 Sat by Pulse 100 99 Oximetry 01/24/18 01/24/18 01/24/18 10:21 10:30 10:31 Temperature Pulse Rate 71 68 69 Pulse Rate [ Anterior Bilateral Throughout] Pulse Rate [ From Monitor] Respiratory 20 21 Rate Respiratory Rate [Anterior Bilateral Throughout] Blood Pressure 111/56 114/62 111/56 O2 Sat by Pulse 100 92 Oximetry 01/24/18 01/24/18 01/24/18 10:41 10:51 11:00 Temperature Pulse Rate 73 76 78 Pulse Rate [ Anterior Bilateral Throughout] Pulse Rate [ From Monitor] Respiratory 21 17 13 Rate Respiratory Rate [Anterior Bilateral Throughout] Blood Pressure 114/62 128/82 150/96 O2 Sat by Pulse 100 100 99 Oximetry 01/24/18 01/24/18 01/24/18 11:11 11:21 11:30 Temperature Pulse Rate 80 80 79 Pulse Rate [ Anterior Bilateral Throughout] Pulse Rate [ From Monitor] Respiratory 20 15 15 Rate Respiratory Rate [Anterior Bilateral Throughout] Blood Pressure 150/96 160/95 151/91 O2 Sat by Pulse 100 98 99 Oximetry 01/24/18 01/24/18 01/24/18 11:41 11:51 12:00 Temperature 98.3 F Pulse Rate 81 85 82 Pulse Rate [ Anterior Bilateral Throughout] Pulse Rate [ From Monitor] Respiratory 25 H 12 19 Rate Respiratory Rate [Anterior Bilateral Throughout] Blood Pressure 151/91 166/85 155/90 O2 Sat by Pulse 99 100 Oximetry 01/24/18 01/24/18 01/24/18 12:11 12:21 12:26 Temperature Pulse Rate 80 79 79 Pulse Rate [ Anterior Bilateral Throughout] Pulse Rate [ From Monitor] Respiratory 21 26 H Rate Respiratory Rate [Anterior Bilateral Throughout] Blood Pressure 155/90 165/94 165/94 O2 Sat by Pulse 99 100 Oximetry 01/24/18 01/24/18 12:31 12:50 Temperature Pulse Rate 71 78 Pulse Rate [ Anterior Bilateral Throughout] Pulse Rate [ From Monitor] Respiratory 19 Rate Respiratory Rate [Anterior Bilateral Throughout] Blood Pressure 126/73 145/76 O2 Sat by Pulse 100 100 Oximetry Constitutional: appears uncomfortable Eyes: non-icteric ENT: oropharynx moist, other (ETT 23cm MARGOT) Neck: supple, no lymphadenopathy, no JVD, other (no thyromegaly) Effort: mildly labored Ascultation: Bilateral: diminished breath sounds, rales Percussion: Bilateral: not dull Cardiovascular: regular rate and rhythm, other (no rubs or murmurs) Gastrointestinal: normoactive bowel sounds, soft, non-tender, non-distended, other (no [place] HSM) Integumentary: normal Extremities: no cyanosis, no edema, pink and warm, pulses normal Neurologic: non-focal exam (grossly), motor strength normal and, unable to assess Psychiatric: other (unable to assess) CBC and BMP: 01/24/18 03:40 01/24/18 03:40 ABG, PT/INR, D-dimer: ABG POC ABG pH 7.408 (7.35-7.45) 01/24/18 05:27 POC ABG pCO2 35.8 (35-45) 01/24/18 05:27 POC ABG pO2 82 (80-105) 01/24/18 05:27 POC ABG HCO3 22.6 01/24/18 05:27 POC ABG Total CO2 24 01/24/18 05:27 POC ABG O2 Sat 96 01/24/18 05:27 PT/INR, D-dimer PT 17.5 Sec. (12.2-14.9) H 01/20/18 07:00 INR 1.35 (0.87-1.13) H 01/20/18 07:00 Abnormal lab findings: Abnormal Labs 01/17/18 01/17/18 01/17/18 15:25 16:15 16:48 WBC MCH Plt Count Seg Neuts % (Manual) Lymphocytes % (Manual) Monocytes % (Manual) Nucleated RBC % Seg Neutrophils # Man Lymphocytes # (Manual) Monocytes # (Manual) PT INR POC ABG pH 7.099 L POC ABG pCO2 58.9 H POC ABG pO2 149 H VBG pH Sodium Potassium Chloride Carbon Dioxide BUN Creatinine Glucose POC Glucose < 40 L 121 H Hemoglobin A1c Lactic Acid Calcium Total Bilirubin AST ALT Alkaline Phosphatase C-Reactive Protein Total Protein Albumin 01/17/18 01/17/18 01/17/18 16:54 16:54 16:54 WBC MCH Plt Count Seg Neuts % (Manual) 72.0 H Lymphocytes % (Manual) 3.0 L Monocytes % (Manual) Nucleated RBC % Seg Neutrophils # Man Lymphocytes # (Manual) 0.2 L Monocytes # (Manual) PT 18.5 H INR 1.45 H POC ABG pH POC ABG pCO2 POC ABG pO2 VBG pH Sodium 136 L Potassium Chloride 97.8 L Carbon Dioxide 16 L BUN 43 H Creatinine 3.3 H Glucose 121 H POC Glucose Hemoglobin A1c Lactic Acid Calcium 6.7 L Total Bilirubin AST ALT Alkaline Phosphatase C-Reactive Protein Total Protein 4.4 L Albumin 2.3 L 01/17/18 01/17/18 01/17/18 16:54 16:54 17:11 WBC MCH Plt Count Seg Neuts % (Manual) Lymphocytes % (Manual) Monocytes % (Manual) Nucleated RBC % Seg Neutrophils # Man Lymphocytes # (Manual) Monocytes # (Manual) PT INR POC ABG pH POC ABG pCO2 POC ABG pO2 VBG pH 7.273 L Sodium Potassium Chloride Carbon Dioxide BUN Creatinine Glucose POC Glucose Hemoglobin A1c Lactic Acid 4.70 H* 4.30 H* Calcium Total Bilirubin AST ALT Alkaline Phosphatase C-Reactive Protein Total Protein Albumin 01/17/18 01/17/18 01/17/18 18:02 18:15 19:21 WBC MCH Plt Count Seg Neuts % (Manual) Lymphocytes % (Manual) Monocytes % (Manual) Nucleated RBC % Seg Neutrophils # Man Lymphocytes # (Manual) Monocytes # (Manual) PT INR POC ABG pH 7.177 L POC ABG pCO2 POC ABG pO2 VBG pH Sodium Potassium Chloride Carbon Dioxide BUN Creatinine Glucose POC Glucose < 40 L Hemoglobin A1c Lactic Acid 3.00 H* Calcium Total Bilirubin AST ALT Alkaline Phosphatase C-Reactive Protein Total Protein Albumin 01/17/18 01/17/18 01/17/18 22:36 22:36 23:16 WBC MCH Plt Count Seg Neuts % (Manual) Lymphocytes % (Manual) Monocytes % (Manual) Nucleated RBC % Seg Neutrophils # Man Lymphocytes # (Manual) Monocytes # (Manual) PT INR POC ABG pH 7.112 L POC ABG pCO2 50.1 H POC ABG pO2 50 L VBG pH Sodium Potassium Chloride Carbon Dioxide BUN Creatinine Glucose POC Glucose Hemoglobin A1c 9.0 H Lactic Acid 5.50 H* Calcium Total Bilirubin AST ALT Alkaline Phosphatase C-Reactive Protein Total Protein Albumin 01/18/18 01/18/18 01/18/18 01:26 03:21 03:21 WBC MCH Plt Count Seg Neuts % (Manual) 27.0 L Lymphocytes % (Manual) 3.0 L Monocytes % (Manual) 14.0 H Nucleated RBC % Seg Neutrophils # Man Lymphocytes # (Manual) 0.3 L Monocytes # (Manual) 1.4 H PT INR POC ABG pH POC ABG pCO2 POC ABG pO2 VBG pH Sodium Potassium Chloride Carbon Dioxide BUN Creatinine Glucose POC Glucose 107 H Hemoglobin A1c Lactic Acid 8.00 H* Calcium Total Bilirubin AST ALT Alkaline Phosphatase C-Reactive Protein Total Protein Albumin 01/18/18 01/18/18 01/18/18 03:21 04:40 05:07 WBC MCH Plt Count Seg Neuts % (Manual) Lymphocytes % (Manual) Monocytes % (Manual) Nucleated RBC % Seg Neutrophils # Man Lymphocytes # (Manual) Monocytes # (Manual) PT INR POC ABG pH 7.093 L POC ABG pCO2 31.5 L POC ABG pO2 77 L VBG pH Sodium Potassium Chloride 96.9 L Carbon Dioxide 14 L BUN 47 H Creatinine 3.4 H Glucose POC Glucose Hemoglobin A1c Lactic Acid 11.10 H* Calcium 6.4 L Total Bilirubin AST 47 H ALT Alkaline Phosphatase C-Reactive Protein Total Protein 4.3 L Albumin 2.4 L 01/18/18 01/18/18 01/18/18 06:29 07:06 11:44 WBC MCH Plt Count Seg Neuts % (Manual) Lymphocytes % (Manual) Monocytes % (Manual) Nucleated RBC % Seg Neutrophils # Man Lymphocytes # (Manual) Monocytes # (Manual) PT INR POC ABG pH POC ABG pCO2 POC ABG pO2 VBG pH Sodium Potassium Chloride Carbon Dioxide BUN Creatinine Glucose POC Glucose 47 L 149 H < 40 L Hemoglobin A1c Lactic Acid Calcium Total Bilirubin AST ALT Alkaline Phosphatase C-Reactive Protein Total Protein Albumin 01/18/18 01/18/18 01/18/18 11:46 14:15 18:01 WBC MCH Plt Count Seg Neuts % (Manual) Lymphocytes % (Manual) Monocytes % (Manual) Nucleated RBC % Seg Neutrophils # Man Lymphocytes # (Manual) Monocytes # (Manual) PT INR POC ABG pH POC ABG pCO2 POC ABG pO2 VBG pH Sodium Potassium Chloride Carbon Dioxide BUN Creatinine Glucose POC Glucose 116 H < 40 L Hemoglobin A1c Lactic Acid 10.00 H* Calcium Total Bilirubin AST ALT Alkaline Phosphatase C-Reactive Protein Total Protein Albumin 01/18/18 01/18/18 01/18/18 18:02 23:25 23:27 WBC MCH Plt Count Seg Neuts % (Manual) Lymphocytes % (Manual) Monocytes % (Manual) Nucleated RBC % Seg Neutrophils # Man Lymphocytes # (Manual) Monocytes # (Manual) PT INR POC ABG pH POC ABG pCO2 POC ABG pO2 VBG pH Sodium Potassium Chloride Carbon Dioxide BUN Creatinine Glucose POC Glucose 136 H < 40 L < 40 L Hemoglobin A1c Lactic Acid Calcium Total Bilirubin AST ALT Alkaline Phosphatase C-Reactive Protein Total Protein Albumin 01/19/18 01/19/18 01/19/18 04:02 06:50 06:50 WBC 18.5 H MCH Plt Count 136 L Seg Neuts % (Manual) 86.0 H Lymphocytes % (Manual) 4.0 L Monocytes % (Manual) Nucleated RBC % Seg Neutrophils # Man 15.9 H Lymphocytes # (Manual) 0.7 L Monocytes # (Manual) 1.1 H PT 21.3 H INR 1.73 H POC ABG pH POC ABG pCO2 28.3 L POC ABG pO2 57 L VBG pH Sodium Potassium Chloride Carbon Dioxide BUN Creatinine Glucose POC Glucose Hemoglobin A1c Lactic Acid Calcium Total Bilirubin AST ALT Alkaline Phosphatase C-Reactive Protein Total Protein Albumin 01/19/18 01/19/18 01/19/18 06:50 08:45 11:17 WBC MCH Plt Count Seg Neuts % (Manual) Lymphocytes % (Manual) Monocytes % (Manual) Nucleated RBC % Seg Neutrophils # Man Lymphocytes # (Manual) Monocytes # (Manual) PT INR POC ABG pH POC ABG pCO2 POC ABG pO2 VBG pH Sodium 135 L Potassium Chloride 92.8 L Carbon Dioxide 19 L BUN 31 H Creatinine 2.6 H Glucose POC Glucose 110 H Hemoglobin A1c Lactic Acid 7.90 H* Calcium 7.1 L Total Bilirubin 1.60 H AST 2526 H ALT 1187 H Alkaline Phosphatase 133 H C-Reactive Protein Total Protein 4.8 L Albumin 2.0 L 01/19/18 01/19/18 01/19/18 11:31 22:12 23:34 WBC MCH Plt Count Seg Neuts % (Manual) Lymphocytes % (Manual) Monocytes % (Manual) Nucleated RBC % Seg Neutrophils # Man Lymphocytes # (Manual) Monocytes # (Manual) PT INR POC ABG pH POC ABG pCO2 31.6 L POC ABG pO2 59 L VBG pH Sodium Potassium Chloride Carbon Dioxide BUN Creatinine Glucose POC Glucose 131 H 53 L Hemoglobin A1c Lactic Acid Calcium Total Bilirubin AST ALT Alkaline Phosphatase C-Reactive Protein Total Protein Albumin 01/20/18 01/20/18 01/20/18 05:18 05:18 05:19 WBC 19.7 H MCH 27 L Plt Count 84 L Seg Neuts % (Manual) 84.0 H Lymphocytes % (Manual) 2.0 L Monocytes % (Manual) 8.0 H Nucleated RBC % Seg Neutrophils # Man 16.5 H Lymphocytes # (Manual) 0.4 L Monocytes # (Manual) 1.6 H PT INR POC ABG pH POC ABG pCO2 POC ABG pO2 VBG pH Sodium 136 L Potassium Chloride 96.9 L Carbon Dioxide 17 L BUN 65 H Creatinine 4.1 H D Glucose 104 H POC Glucose 125 H Hemoglobin A1c Lactic Acid Calcium 7.1 L Total Bilirubin 1.60 H AST 1702 H ALT 1141 H Alkaline Phosphatase 172 H C-Reactive Protein Total Protein 5.0 L Albumin 1.7 L 01/20/18 01/20/18 01/20/18 07:00 11:48 13:54 WBC MCH Plt Count Seg Neuts % (Manual) Lymphocytes % (Manual) Monocytes % (Manual) Nucleated RBC % Seg Neutrophils # Man Lymphocytes # (Manual) Monocytes # (Manual) PT 17.5 H INR 1.35 H POC ABG pH POC ABG pCO2 POC ABG pO2 VBG pH Sodium Potassium Chloride Carbon Dioxide BUN Creatinine Glucose POC Glucose 109 H Hemoglobin A1c Lactic Acid Calcium Total Bilirubin AST ALT Alkaline Phosphatase C-Reactive Protein 37.50 H Total Protein Albumin 01/20/18 01/20/18 01/20/18 17:28 17:51 20:50 WBC MCH Plt Count Seg Neuts % (Manual) Lymphocytes % (Manual) Monocytes % (Manual) Nucleated RBC % Seg Neutrophils # Man Lymphocytes # (Manual) Monocytes # (Manual) PT INR POC ABG pH POC ABG pCO2 POC ABG pO2 VBG pH Sodium Potassium Chloride Carbon Dioxide BUN Creatinine Glucose POC Glucose 140 H Hemoglobin A1c Lactic Acid 2.70 H* 2.30 H* Calcium Total Bilirubin AST ALT Alkaline Phosphatase C-Reactive Protein Total Protein Albumin 01/20/18 01/20/18 01/21/18 23:55 Unknown 00:12 WBC MCH Plt Count Seg Neuts % (Manual) Lymphocytes % (Manual) Monocytes % (Manual) Nucleated RBC % Seg Neutrophils # Man Lymphocytes # (Manual) Monocytes # (Manual) PT INR POC ABG pH POC ABG pCO2 POC ABG pO2 VBG pH Sodium Potassium Chloride Carbon Dioxide BUN Creatinine Glucose POC Glucose 149 H 134 H Hemoglobin A1c Lactic Acid 2.50 H* Calcium Total Bilirubin AST ALT Alkaline Phosphatase C-Reactive Protein Total Protein Albumin 01/21/18 01/21/18 01/21/18 04:27 05:00 05:00 WBC 21.7 H MCH 27 L Plt Count 67 L Seg Neuts % (Manual) 71.0 H Lymphocytes % (Manual) 9.0 L Monocytes % (Manual) Nucleated RBC % 4.0 H Seg Neutrophils # Man 15.4 H Lymphocytes # (Manual) Monocytes # (Manual) PT INR POC ABG pH POC ABG pCO2 33.8 L POC ABG pO2 72 L VBG pH Sodium Potassium Chloride Carbon Dioxide 21 L BUN 71 H Creatinine 4.1 H Glucose 149 H POC Glucose Hemoglobin A1c Lactic Acid Calcium 7.5 L Total Bilirubin AST 494 H ALT 780 H Alkaline Phosphatase 151 H C-Reactive Protein Total Protein 4.9 L Albumin 1.9 L 01/21/18 01/21/18 01/21/18 05:00 05:18 12:20 WBC MCH Plt Count Seg Neuts % (Manual) Lymphocytes % (Manual) Monocytes % (Manual) Nucleated RBC % Seg Neutrophils # Man Lymphocytes # (Manual) Monocytes # (Manual) PT INR POC ABG pH POC ABG pCO2 POC ABG pO2 VBG pH Sodium Potassium Chloride Carbon Dioxide BUN Creatinine Glucose POC Glucose 132 H 158 H Hemoglobin A1c Lactic Acid 2.10 H* Calcium Total Bilirubin AST ALT Alkaline Phosphatase C-Reactive Protein Total Protein Albumin 01/21/18 01/21/18 01/22/18 18:07 23:40 03:48 WBC MCH Plt Count Seg Neuts % (Manual) Lymphocytes % (Manual) Monocytes % (Manual) Nucleated RBC % Seg Neutrophils # Man Lymphocytes # (Manual) Monocytes # (Manual) PT INR POC ABG pH POC ABG pCO2 POC ABG pO2 65 L VBG pH Sodium Potassium Chloride Carbon Dioxide BUN Creatinine Glucose POC Glucose 143 H 136 H Hemoglobin A1c Lactic Acid Calcium Total Bilirubin AST ALT Alkaline Phosphatase C-Reactive Protein Total Protein Albumin 01/22/18 01/22/18 01/22/18 04:10 04:10 05:56 WBC 24.9 H MCH 27 L Plt Count 80 L Seg Neuts % (Manual) Lymphocytes % (Manual) Monocytes % (Manual) Nucleated RBC % Seg Neutrophils # Man Lymphocytes # (Manual) Monocytes # (Manual) PT INR POC ABG pH POC ABG pCO2 POC ABG pO2 VBG pH Sodium Potassium Chloride 97.7 L Carbon Dioxide BUN 72 H Creatinine 3.6 H Glucose 145 H POC Glucose 139 H Hemoglobin A1c Lactic Acid Calcium 7.3 L Total Bilirubin AST 146 H ALT 547 H Alkaline Phosphatase C-Reactive Protein Total Protein 5.2 L Albumin 2.3 L 01/22/18 01/22/18 01/23/18 11:30 17:41 00:00 WBC MCH Plt Count Seg Neuts % (Manual) Lymphocytes % (Manual) Monocytes % (Manual) Nucleated RBC % Seg Neutrophils # Man Lymphocytes # (Manual) Monocytes # (Manual) PT INR POC ABG pH POC ABG pCO2 POC ABG pO2 VBG pH Sodium Potassium Chloride Carbon Dioxide BUN Creatinine Glucose POC Glucose 156 H 185 H 150 H Hemoglobin A1c Lactic Acid Calcium Total Bilirubin AST ALT Alkaline Phosphatase C-Reactive Protein Total Protein Albumin 01/23/18 01/23/18 01/23/18 04:39 05:24 11:38 WBC MCH Plt Count Seg Neuts % (Manual) Lymphocytes % (Manual) Monocytes % (Manual) Nucleated RBC % Seg Neutrophils # Man Lymphocytes # (Manual) Monocytes # (Manual) PT INR POC ABG pH POC ABG pCO2 31.9 L POC ABG pO2 62 L VBG pH Sodium Potassium Chloride Carbon Dioxide BUN Creatinine Glucose POC Glucose 215 H 182 H Hemoglobin A1c Lactic Acid Calcium Total Bilirubin AST ALT Alkaline Phosphatase C-Reactive Protein Total Protein Albumin 01/23/18 01/23/18 01/24/18 14:20 17:26 00:10 WBC MCH Plt Count Seg Neuts % (Manual) Lymphocytes % (Manual) Monocytes % (Manual) Nucleated RBC % Seg Neutrophils # Man Lymphocytes # (Manual) Monocytes # (Manual) PT INR POC ABG pH POC ABG pCO2 31.4 L POC ABG pO2 55 L VBG pH Sodium Potassium Chloride Carbon Dioxide BUN Creatinine Glucose POC Glucose 252 H 225 H Hemoglobin A1c Lactic Acid Calcium Total Bilirubin AST ALT Alkaline Phosphatase C-Reactive Protein Total Protein Albumin 01/24/18 01/24/18 01/24/18 03:40 03:40 06:06 WBC 34.5 H MCH 27 L Plt Count 130 L Seg Neuts % (Manual) Lymphocytes % (Manual) Monocytes % (Manual) Nucleated RBC % Seg Neutrophils # Man Lymphocytes # (Manual) Monocytes # (Manual) PT INR POC ABG pH POC ABG pCO2 POC ABG pO2 VBG pH Sodium Potassium 5.7 H D Chloride 95.6 L Carbon Dioxide 20 L BUN 96 H Creatinine 4.2 H Glucose 166 H POC Glucose 162 H Hemoglobin A1c Lactic Acid Calcium 7.3 L Total Bilirubin AST 52 H ALT 235 H Alkaline Phosphatase C-Reactive Protein Total Protein 5.1 L Albumin 2.5 L 01/24/18 11:36 WBC MCH Plt Count Seg Neuts % (Manual) Lymphocytes % (Manual) Monocytes % (Manual) Nucleated RBC % Seg Neutrophils # Man Lymphocytes # (Manual) Monocytes # (Manual) PT INR POC ABG pH POC ABG pCO2 POC ABG pO2 VBG pH Sodium Potassium Chloride Carbon Dioxide BUN Creatinine Glucose POC Glucose 160 H Hemoglobin A1c Lactic Acid Calcium Total Bilirubin AST ALT Alkaline Phosphatase C-Reactive Protein Total Protein Albumin Allied health notes reviewed: RT
--- NOTE | 2018-01-24 17:06 | Vascular Lab Report ---
UPPER EXTREMITY ARTERIAL DUPLEX: REASON FOR EXAM: Ischemic fingers. COMMENTS ON THE RIGHT: Triphasic waveforms are seen proximally. Monophasic waveforms are seen distally. No significant velocity gradients are identified. No significant plaque is identified. Findings are consistent with mildly abnormal perfusion. COMMENTS ON THE LEFT: Triphasic waveforms are seen proximally. Monophasic waveforms are seen distally. No significant velocity gradients are identified. No significant plaque is identified. Findings are consistent with mildly abnormal perfusion. IMPRESSION: RIGHT: Essentially normal arterial flow. LEFT:Essentially normal arterial flow. Monophasic flow velocities in the hand are consistent with general low perfusion in a patient with septic shock.
--- NOTE | 2018-01-24 17:08 | Vascular Lab Report ---
LOWER EXTREMITY ARTERIAL DUPLEX: REASON FOR EXAM: Ischemic feet and septic shock. COMMENTS ON THE RIGHT: Triphasic waveforms are seen proximally. Biphasic waveforms are seen distally. No significant velocity gradients are identified. No significant plaque is identified. Findings are consistent with abnormal perfusion. COMMENTS ON THE LEFT: Triphasic waveforms are seen proximally. Biphasic waveforms are seen distally. No significant velocity gradients are identified. No significant plaque is identified. Findings are consistent with and normal perfusion. IMPRESSION: RIGHT: Reduced arterial flow distally. This is consistent with low flow in septic shock. LEFT:As on the right, there is reduced arterial flow distally consistent with low flow state in septic shock.
[2018-01-24] MEDS: SODIUM CHLORIDE FLUSH SYRINGE 10 ML IV SCH (22:17)
[2018-01-25] MEDS: HumaLOG SUB-Q SCH ×5 (00:24→17:42)
[2018-01-25] MEDS: LOPRESSOR IV SCH ×4 (00:25→17:41)
[2018-01-25] MEDS: FLAGYL 500 MG/100 ML 500 MG/100 ML BAG IV SCH ×3 (02:13→17:41)
[2018-01-25] MEDS: fentaNYL DRIP Premix 2,000 MCG/100 ML BAG IV SCH ×3 (02:14→18:34)
[2018-01-25] MEDS: DUONEB *Not for PRN Use IH SCH ×4 (03:08→20:23)
[2018-01-25] MEDS: SODIUM CHLORIDE FLUSH SYRINGE 10 ML IV SCH ×4 (07:28→21:53)
[2018-01-25] MEDS: ZOSYN/NS 2.25 GM/50ML 2.25 GM/50 ML BAG IV SCH (07:30)
[2018-01-25] MEDS: PEPCID PO SCH (09:48)
[2018-01-25] MEDS: DELTASONE PO SCH (09:49)
[2018-01-25] MEDS: ELIQUIS FEEDTUBE SCH ×2 (09:49→21:52)
--- NOTE | 2018-01-25 11:46 | Progress Note ---
Assessment and Plan Impression: * JANESSA-with ATN * VAP * Pl Effusion * Cardiomyopathy * Anemia * Sepsis * Drug abuse * DM type 2 Plan: * HD q MWF and prn * monitory for renal recovery * strict i/os * avoid nephrotoxins * uf as tolerated with HD * daily lytes * ?thoracentesis * IV abx per primary team Subjective Date of service: 01/25/18 Principal diagnosis: Acute hypoxic respiratory failure, severe sepsis with shock , encephalopathy Interval history: resting well in bed today Objective - Exam Narrative Exam: HEENT: Oral mucosa moist no pallor or icterus, orally intubated Neck: Supple no JVD Chest: bilateral coarse breath sounds diminished at lung bases CVS: Regular rate and rhythm S1 and S2 heard Abdomen: Soft nontender no suprapubic masses no organomegaly appreciable Extremity: Dry skin less than 1+ peripheral edema Musculoskeletal: No joint effusion noted in knees and ankle Neurological: encephalopathic Dermatology: No petechial rashes Psychiatry: No evidence of any agitation and aggression noted - Vital Signs Vital signs: Vital Signs - 12hr 01/24/18 01/25/18 01/25/18 23:51 00:00 00:11 Temperature 98.4 F Pulse Rate 75 72 71 Pulse Rate [ Anterior Bilateral Throughout] Pulse Rate [ 71 From Monitor] Respiratory 15 15 14 Rate Respiratory Rate [Anterior Bilateral Throughout] Blood Pressure 109/58 109/58 O2 Sat by Pulse 99 99 99 Oximetry 01/25/18 01/25/18 01/25/18 00:20 00:25 00:30 Temperature Pulse Rate 67 71 67 Pulse Rate [ Anterior Bilateral Throughout] Pulse Rate [ From Monitor] Respiratory 14 14 Rate Respiratory Rate [Anterior Bilateral Throughout] Blood Pressure 109/58 109/58 O2 Sat by Pulse 99 99 Oximetry 01/25/18 01/25/18 01/25/18 00:40 00:50 01:00 Temperature Pulse Rate 63 65 68 Pulse Rate [ Anterior Bilateral Throughout] Pulse Rate [ From Monitor] Respiratory 15 14 14 Rate Respiratory Rate [Anterior Bilateral Throughout] Blood Pressure 109/58 109/58 102/54 O2 Sat by Pulse 100 99 99 Oximetry 01/25/18 01/25/18 01/25/18 01:03 01:10 01:20 Temperature Pulse Rate 63 65 83 Pulse Rate [ Anterior Bilateral Throughout] Pulse Rate [ From Monitor] Respiratory 15 16 14 Rate Respiratory Rate [Anterior Bilateral Throughout] Blood Pressure 102/54 102/54 102/54 O2 Sat by Pulse 100 100 100 Oximetry 01/25/18 01/25/18 01/25/18 01:30 01:40 01:50 Temperature Pulse Rate 75 81 83 Pulse Rate [ Anterior Bilateral Throughout] Pulse Rate [ From Monitor] Respiratory 12 12 13 Rate Respiratory Rate [Anterior Bilateral Throughout] Blood Pressure 102/54 102/54 102/54 O2 Sat by Pulse Oximetry 01/25/18 01/25/18 01/25/18 02:00 02:10 02:20 Temperature Pulse Rate 79 67 68 Pulse Rate [ Anterior Bilateral Throughout] Pulse Rate [ From Monitor] Respiratory 15 15 14 Rate Respiratory Rate [Anterior Bilateral Throughout] Blood Pressure 102/54 177/82 177/82 O2 Sat by Pulse 94 Oximetry 01/25/18 01/25/18 01/25/18 02:30 02:40 02:50 Temperature Pulse Rate 68 70 68 Pulse Rate [ Anterior Bilateral Throughout] Pulse Rate [ From Monitor] Respiratory 14 14 14 Rate Respiratory Rate [Anterior Bilateral Throughout] Blood Pressure 177/82 177/82 177/82 O2 Sat by Pulse 89 88 87 Oximetry 01/25/18 01/25/18 01/25/18 03:00 03:10 03:20 Temperature Pulse Rate 68 62 65 Pulse Rate [ 67 70 Anterior Bilateral Throughout] Pulse Rate [ From Monitor] Respiratory 14 14 14 Rate Respiratory 14 16 Rate [Anterior Bilateral Throughout] Blood Pressure 177/82 90/49 90/49 O2 Sat by Pulse 88 98 97 Oximetry 01/25/18 01/25/18 01/25/18 03:30 03:40 03:50 Temperature 97.1 F L Pulse Rate 66 86 73 Pulse Rate [ Anterior Bilateral Throughout] Pulse Rate [ From Monitor] Respiratory 14 17 14 Rate Respiratory Rate [Anterior Bilateral Throughout] Blood Pressure 90/49 90/49 90/49 O2 Sat by Pulse 97 100 100 Oximetry 01/25/18 01/25/18 01/25/18 04:00 04:10 04:20 Temperature Pulse Rate 72 87 65 Pulse Rate [ Anterior Bilateral Throughout] Pulse Rate [ 86 From Monitor] Respiratory 14 15 14 Rate Respiratory Rate [Anterior Bilateral Throughout] Blood Pressure 90/49 139/79 139/79 O2 Sat by Pulse 100 99 Oximetry 01/25/18 01/25/18 01/25/18 04:28 04:30 04:40 Temperature Pulse Rate 71 80 87 Pulse Rate [ Anterior Bilateral Throughout] Pulse Rate [ From Monitor] Respiratory 11 L 15 Rate Respiratory Rate [Anterior Bilateral Throughout] Blood Pressure 139/79 139/79 139/79 O2 Sat by Pulse 97 99 Oximetry 01/25/18 01/25/18 01/25/18 04:50 05:00 05:10 Temperature Pulse Rate 67 83 71 Pulse Rate [ Anterior Bilateral Throughout] Pulse Rate [ From Monitor] Respiratory 14 12 17 Rate Respiratory Rate [Anterior Bilateral Throughout] Blood Pressure 139/79 129/78 129/78 O2 Sat by Pulse 100 100 100 Oximetry 01/25/18 01/25/18 01/25/18 05:20 05:30 05:40 Temperature Pulse Rate 87 77 80 Pulse Rate [ Anterior Bilateral Throughout] Pulse Rate [ From Monitor] Respiratory 22 18 16 Rate Respiratory Rate [Anterior Bilateral Throughout] Blood Pressure 129/78 129/78 129/78 O2 Sat by Pulse 100 100 100 Oximetry 01/25/18 01/25/18 01/25/18 05:50 05:51 06:00 Temperature Pulse Rate 71 88 74 Pulse Rate [ Anterior Bilateral Throughout] Pulse Rate [ From Monitor] Respiratory 14 13 Rate Respiratory Rate [Anterior Bilateral Throughout] Blood Pressure 129/78 129/78 129/78 O2 Sat by Pulse 100 100 Oximetry 01/25/18 01/25/18 01/25/18 06:10 06:20 06:30 Temperature Pulse Rate 63 80 84 Pulse Rate [ Anterior Bilateral Throughout] Pulse Rate [ From Monitor] Respiratory 15 13 14 Rate Respiratory Rate [Anterior Bilateral Throughout] Blood Pressure 148/69 148/69 148/69 O2 Sat by Pulse 100 100 100 Oximetry 01/25/18 01/25/18 01/25/18 06:40 06:50 07:00 Temperature Pulse Rate 91 H 91 H 92 H Pulse Rate [ Anterior Bilateral Throughout] Pulse Rate [ From Monitor] Respiratory 14 15 15 Rate Respiratory Rate [Anterior Bilateral Throughout] Blood Pressure 148/69 148/69 148/69 O2 Sat by Pulse 100 100 99 Oximetry 01/25/18 01/25/18 01/25/18 07:10 07:20 07:30 Temperature Pulse Rate 89 89 90 Pulse Rate [ Anterior Bilateral Throughout] Pulse Rate [ From Monitor] Respiratory 15 13 15 Rate Respiratory Rate [Anterior Bilateral Throughout] Blood Pressure 122/83 122/83 122/83 O2 Sat by Pulse 98 98 98 Oximetry 01/25/18 01/25/18 01/25/18 07:40 07:50 08:00 Temperature 98.5 F Pulse Rate 95 H 93 H 72 Pulse Rate [ Anterior Bilateral Throughout] Pulse Rate [ 72 From Monitor] Respiratory 14 9 L 7 L Rate Respiratory Rate [Anterior Bilateral Throughout] Blood Pressure 122/83 122/83 89/52 O2 Sat by Pulse 98 97 99 Oximetry 01/25/18 01/25/18 01/25/18 08:10 08:20 08:30 Temperature Pulse Rate 73 72 72 Pulse Rate [ Anterior Bilateral Throughout] Pulse Rate [ From Monitor] Respiratory 14 14 14 Rate Respiratory Rate [Anterior Bilateral Throughout] Blood Pressure 89/52 89/52 89/52 O2 Sat by Pulse 100 100 99 Oximetry 01/25/18 01/25/18 01/25/18 08:40 08:50 09:00 Temperature Pulse Rate 69 70 69 Pulse Rate [ Anterior Bilateral Throughout] Pulse Rate [ From Monitor] Respiratory 14 14 14 Rate Respiratory Rate [Anterior Bilateral Throughout] Blood Pressure 89/52 89/52 76/43 O2 Sat by Pulse 100 100 99 Oximetry 01/25/18 01/25/18 01/25/18 09:10 09:20 09:30 Temperature Pulse Rate 69 70 64 Pulse Rate [ 89 82 Anterior Bilateral Throughout] Pulse Rate [ From Monitor] Respiratory 14 14 13 Rate Respiratory 16 16 Rate [Anterior Bilateral Throughout] Blood Pressure 74/40 74/40 74/40 O2 Sat by Pulse 97 100 100 Oximetry 01/25/18 01/25/18 01/25/18 09:40 09:50 10:00 Temperature Pulse Rate 64 63 61 Pulse Rate [ Anterior Bilateral Throughout] Pulse Rate [ From Monitor] Respiratory 14 14 11 L Rate Respiratory Rate [Anterior Bilateral Throughout] Blood Pressure 77/50 80/43 92/54 O2 Sat by Pulse 100 100 99 Oximetry 01/25/18 01/25/18 01/25/18 10:10 10:20 10:30 Temperature Pulse Rate 76 85 72 Pulse Rate [ Anterior Bilateral Throughout] Pulse Rate [ From Monitor] Respiratory 12 15 14 Rate Respiratory Rate [Anterior Bilateral Throughout] Blood Pressure 109/66 109/66 109/66 O2 Sat by Pulse 98 99 Oximetry 01/25/18 01/25/18 01/25/18 10:40 10:50 11:00 Temperature Pulse Rate 88 68 78 Pulse Rate [ Anterior Bilateral Throughout] Pulse Rate [ From Monitor] Respiratory 24 16 12 Rate Respiratory Rate [Anterior Bilateral Throughout] Blood Pressure 109/66 109/66 109/66 O2 Sat by Pulse 99 98 98 Oximetry 01/25/18 01/25/18 11:10 11:20 Temperature Pulse Rate 76 87 Pulse Rate [ Anterior Bilateral Throughout] Pulse Rate [ From Monitor] Respiratory 11 L 12 Rate Respiratory Rate [Anterior Bilateral Throughout] Blood Pressure 163/78 163/78 O2 Sat by Pulse 97 95 Oximetry - Lab 01/24/18 03:40 01/24/18 03:40 Most recent lab results Calcium 7.3 mg/dL (8.4-10.2) L 01/24/18 03:40
--- NOTE | 2018-01-25 12:27 | Cat Scan Report ---
CT scan of chest without IV contrast: History: Empyema, abscess evaluate pelvic abscess. Findings: No definite endobronchial lesion identified in the distal left lower lobe bronchus. Evidence of atelectasis of left lower lobe. Minimal left pleural effusion. There is pleural thickening noted in the right lower lobe with scarring of the adjacent lung parenchyma. No pericardial effusion. No mediastinal mass or adenopathy. No definite ulceration lung parenchyma. Impression: Left lower lobe atelectasis with left pleural effusion. Pleural thickening right lower lobe with adjacent linear densities probably suggestive of scarring or areas of discoid atelectasis and less likely pneumonitis.
[2018-01-25] MEDS ORDERED: VANCOMYCIN/0.45 NS 1 GM/250 ML 1 GM/250 ML BAG IV ONE (12:30)
--- NOTE | 2018-01-25 12:30 | Progress Note ---
Assessment and Plan Assessment and plan: Acute hypercapenic respiratory failure - Likely from drug abuse and aspiration - VAP bundle -on vent support Large Left Pleural Effusion - Will discuss with Pulmonary about Thoracentesis Severe Sepsis with septic shock likely from aspiration pneumonia-POA -Recurrent fever possible due to the infection - Had some reaction to zosyn with facial flushing -abx changed to levaquin and flagyl -worsening Leukocytosis like secondary to steroids given for allergic reaction - Left lobar infiltrate on admission - We'll continue broad-spectrum antibiotic for now - ?pelvic mass, Discussed with [employer] 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 and Pelvic ultrasound -negative blood culture, sputum cx pending -Lactic acidosis L\likely from severe sepsis and along with decline in renal function - placed on bicarbonate drip initially, now on HD DM uncontrolled hyperglycemia -Continue insulin therapy Shock required pressors - likely from sepsis vs cardiogenic - Continue IV antibiotics - off pressors today. required 3 pressors on admission Decompensated acute CHF - EF 30-35% on ed echo - will consult cardiology - cautious use of iv fluid JANESSA Etiology likely due to ATN from severe sepsis - monitor renal function, now on HD - Avoid nephrotoxins, nephrology consulted History of cocaine abuse, UDS pending Acute encephalopathy - Multifactorial, likely from drug abuse vs severe sepsis versus anoxic encephalopathy - CT head no acute finding - pt is off sedation since DAY prior to yesterday -Pacemaker precludes getting MRI brain -May obtain neurology if no clinical improvement Ischemic hepatitis Elevated LFTs, etiology secondary to shock liver syndrome - Likely from severe hypotension causing shock liver - Continue to monitor Coagulopathy Etiology due to severe sepsis and abnormal liver function Bilateral finger Ischemic Changes possible secondary to pressors but potentiated by hx of from drug abuse, will get vascular consult Thrombocytopenia Etiology likely secondary to sepsis - Montior Disposition: Continue ICU monitoring, very poor prognosis. The high probability of a clinically significant, sudden or life threatening deterioration of the [multiorgan] system(s) required my full and direct attention, intervention and personal management. The aggregate critical care time was [33] minutes. This time is in addition to time spent performing reported procedures but includes the following: [x] Data Review and interpretation [x] Patient assessment and monitoring of vital signs [x] Documentation [x] Medication orders and management History Interval history: 62-year-old admitted with hx of htn, polysubstance drug abuse per family, admitted after she was found unresponsive found in the bathroom pf a friends home, noted with severe lactic acidosis, hypotensive on vasopressors, hypercapeniac respiratory failure requiring intubation . Hospitalist Physical - Constitutional Vitals: Temp Pulse Resp BP Pulse Ox 98.4 F 64 21 150/77 97 01/25/18 12:00 01/25/18 12:10 01/25/18 12:10 01/25/18 12:10 01/25/18 12:10 General appearance: Present: other (intubated) - EENT Eyes: Present: PERRL, EOM intact ENT: hearing intact, clear oral mucosa, dentition normal - Neck Neck: Present: supple, normal ROM - Respiratory Respiratory effort: normal Respiratory: bilateral: diminished, rhonchi - Cardiovascular Rhythm: regular Heart Sounds: Present: S1 & S2. Absent: gallop, rub - Extremities Extremities: No edema, Full ROM Extremity abnormal: cyanosis, black, cold, other (iscemic digits) - Abdominal General gastrointestinal: soft, non-tender, non-distended, normal bowel sounds - Integumentary Integumentary: Present: clear, warm, dry - Neurologic Neurologic: CNII-XII intact, moves all extremities Results - Labs CBC & Chem 7: 01/24/18 03:40 01/24/18 03:40 Labs: Laboratory Last Values WBC 34.5 K/mm3 (4.5-11.0) H 01/24/18 03:40 RBC 4.21 M/mm3 (3.65-5.03) 01/24/18 03:40 Hgb 11.2 gm/dl (10.1-14.3) 01/24/18 03:40 Hct 35.6 % (30.3-42.9) 01/24/18 03:40 MCV 85 fl (79-97) 01/24/18 03:40 MCH 27 pg (28-32) L 01/24/18 03:40 MCHC 31 % (30-34) 01/24/18 03:40 RDW 14.9 % (13.2-15.2) 01/24/18 03:40 Plt Count 130 K/mm3 (140-440) L 01/24/18 03:40 Lymph % (Auto) Manager Statistics 01/17/18 16:54 [place] % (Auto) Manager Statistics 01/17/18 16:54 Eos % (Auto) Manager Statistics 01/17/18 16:54 Baso % (Auto) Manager Statistics 01/17/18 16:54 Lymph # Manager Statistics 01/17/18 16:54 [place] # Manager Statistics 01/17/18 16:54 Eos # Manager Statistics 01/17/18 16:54 Baso # Manager Statistics 01/17/18 16:54 Add Manual Diff Complete 01/21/18 05:00 Total Counted 100 01/21/18 05:00 Seg Neutrophils % Manager Statistics 01/21/18 05:00 Seg Neuts % (Manual) 71.0 % (40.0-70.0) H 01/21/18 05:00 Band Neutrophils % 18.0 % 01/21/18 05:00 Lymphocytes % (Manual) 9.0 % (13.4-35.0) L 01/21/18 05:00 Reactive Lymphs % (Man) 0 % 01/21/18 05:00 Monocytes % (Manual) 2.0 % (0.0-7.3) 01/21/18 05:00 Eosinophils % (Manual) 0 % (0.0-4.3) 01/21/18 05:00 Basophils % (Manual) 0 % (0.0-1.8) 01/21/18 05:00 Metamyelocytes % 0 % 01/21/18 05:00 Myelocytes % 0 % 01/21/18 05:00 Promyelocytes % 0 % 01/21/18 05:00 Blast Cells % 0 % 01/21/18 05:00 Nucleated RBC % 4.0 % (0.0-0.9) H 01/21/18 05:00 Seg Neutrophils # Manager Statistics 01/17/18 16:54 Seg Neutrophils # Man 15.4 K/mm3 (1.8-7.7) H 01/21/18 05:00 Band Neutrophils # 3.9 K/mm3 01/21/18 05:00 Lymphocytes # (Manual) 2.0 K/mm3 (1.2-5.4) 01/21/18 05:00 Abs React Lymphs (Man) 0.0 K/mm3 01/21/18 05:00 Monocytes # (Manual) 0.4 K/mm3 (0.0-0.8) 01/21/18 05:00 Eosinophils # (Manual) 0.0 K/mm3 (0.0-0.4) 01/21/18 05:00 Basophils # (Manual) 0.0 K/mm3 (0.0-0.1) 01/21/18 05:00 Metamyelocytes # 0.0 K/mm3 01/21/18 05:00 Myelocytes # 0.0 K/mm3 01/21/18 05:00 Promyelocytes # 0.0 K/mm3 01/21/18 05:00 Blast Cells # 0.0 K/mm3 01/21/18 05:00 WBC Morphology Not Reportable 01/21/18 05:00 Hypersegmented Neuts Not Reportable 01/21/18 05:00 Hyposegmented Neuts Not Reportable 01/21/18 05:00 Hypogranular Neuts Not Reportable 01/21/18 05:00 Smudge Cells Not Reportable 01/21/18 05:00 Toxic Granulation Not Reportable 01/21/18 05:00 Toxic Vacuolation Not Reportable 01/21/18 05:00 Dohle Bodies Rare 01/21/18 05:00 Pelger-Huet Anomaly Not Reportable 01/21/18 05:00 Opal Rods Not Reportable 01/21/18 05:00 Platelet Estimate Consistent w auto 01/21/18 05:00 Clumped Platelets Not Reportable 01/21/18 05:00 Plt Clumps, EDTA Not Reportable 01/21/18 05:00 Large Platelets Not Reportable 01/21/18 05:00 Giant Platelets Not Reportable 01/21/18 05:00 Platelet Satelliting Not Reportable 01/21/18 05:00 Plt Morphology Comment Not Reportable 01/21/18 05:00 RBC Morphology Not Reportable 01/21/18 05:00 Dimorphic RBCs Not Reportable 01/21/18 05:00 Polychromasia Not Reportable 01/21/18 05:00 Hypochromasia Not Reportable 01/21/18 05:00 Poikilocytosis Not Reportable 01/21/18 05:00 Anisocytosis Not Reportable 01/21/18 05:00 Microcytosis Not Reportable 01/21/18 05:00 Macrocytosis Not Reportable 01/21/18 05:00 Spherocytes Not Reportable 01/21/18 05:00 Pappenheimer Bodies Not Reportable 01/21/18 05:00 Sickle Cells Not Reportable 01/21/18 05:00 Target Cells Not Reportable 01/21/18 05:00 Tear Drop Cells Not Reportable 01/21/18 05:00 Ovalocytes Not Reportable 01/21/18 05:00 Stomatocytes Few 01/21/18 05:00 Helmet Cells Not Reportable 01/21/18 05:00 Frank[place] Bodies Not Reportable 01/21/18 05:00 [place] Rings Not Reportable 01/21/18 05:00 Jaclyn Cells Not Reportable 01/21/18 05:00 Bite Cells Not Reportable 01/21/18 05:00 Crenated Cell Not Reportable 01/21/18 05:00 Elliptocytes Not Reportable 01/21/18 05:00 Acanthocytes (Spur) Not Reportable 01/21/18 05:00 Rouleaux Not Reportable 01/21/18 05:00 Hemoglobin C Crystals Not Reportable 01/21/18 05:00 Schistocytes Not Reportable 01/21/18 05:00 Malaria parasites Not Reportable 01/21/18 05:00 Brock Bodies Not Reportable 01/21/18 05:00 Hem Pathologist Commnt No 01/21/18 05:00 PT 17.5 Sec. (12.2-14.9) H 01/20/18 07:00 INR 1.35 (0.87-1.13) H 01/20/18 07:00 Heparin Anti-Xa, Unfract Negative (Negative) 01/20/18 11:03 POC ABG pH 7.342 (7.35-7.45) L 01/25/18 04:34 POC ABG pCO2 48.7 (35-45) H 01/25/18 04:34 POC ABG pO2 80 (80-105) 01/25/18 04:34 POC ABG HCO3 26.4 01/25/18 04:34 POC ABG Total CO2 28 01/25/18 04:34 POC ABG O2 Sat 95 01/25/18 04:34 POC ABG Base Excess 1 01/25/18 04:34 VBG pH 7.273 (7.320-7.420) L 01/17/18 16:54 FiO2 35 % 01/25/18 04:34 Sodium 138 mmol/L (137-145) 01/24/18 03:40 Potassium 5.7 mmol/L (3.6-5.0) H D 01/24/18 03:40 Chloride 95.6 mmol/L (98-107) L 01/24/18 03:40 Carbon Dioxide 20 mmol/L (22-30) L 01/24/18 03:40 Anion Gap 28 mmol/L 01/24/18 03:40 BUN 96 mg/dL (7-17) H 01/24/18 03:40 Creatinine 4.2 mg/dL (0.7-1.2) H 01/24/18 03:40 Estimated GFR 11 ml/min 01/24/18 03:40 BUN/Creatinine Ratio 23 % 01/24/18 03:40 Glucose 166 mg/dL (65-100) H 01/24/18 03:40 POC Glucose 121 (70-105) H 01/25/18 11:46 Hemoglobin A1c 9.0 % (4-6) H 01/17/18 22:36 Lactic Acid 1.40 mmol/L (0.7-2.0) 01/24/18 15:08 Calcium 7.3 mg/dL (8.4-10.2) L 01/24/18 03:40 Total Bilirubin 1.10 mg/dL (0.1-1.2) 01/24/18 03:40 AST 52 units/L (5-40) H 01/24/18 03:40 ALT 235 units/L (7-56) H 01/24/18 03:40 Alkaline Phosphatase 105 units/L (35-129) 01/24/18 03:40 C-Reactive Protein 3.30 mg/dL (0.00-1.30) H 01/24/18 15:08 Total Protein 5.1 g/dL (6.3-8.2) L 01/24/18 03:40 Albumin 2.5 g/dL (3.9-5) L 01/24/18 03:40 Albumin/Globulin Ratio 1.0 % 01/24/18 03:40 Serotonin Release Assay See scanned report 01/20/18 11:03 Random Vancomycin 11.5 ug/mL (0-40.0) 01/24/18 03:40 ALISA Screen Negative (Negative) 01/20/18 Unknown Heparin-induced Plt Ab Negative (Negative) 01/20/18 11:03 UF Heparin High Dose 0 % Release 01/20/18 11:03 NEGRTIA UFH Low Dose 0.1 0 % Release 01/20/18 11:03 NEGRITA UFH Low Dose 0.5 0 % Release 01/20/18 11:03 Hepatitis A IgM Ab Non-reactive (NonReactive) 01/20/18 07:00 Hep Bs Antigen Non-reactive (Negative) 01/20/18 07:00 Hep B Core IgM Ab Non-reactive (NonReactive) 01/20/18 07:00 Hepatitis C Antibody Non-reactive (NonReactive) 01/20/18 07:00 HIV 1&2 Antibody Rapid Non react (Non React) 01/20/18 Unknown HIV P24 Antigen Non react (Non React) 01/20/18 Unknown
--- NOTE | 2018-01-25 12:36 | Cat Scan Report ---
CT scan of abdomen and pelvis without IV contrast: Next History: Evaluate for pelvic abscess empyema or abscess. Findings: Normal liver. Very faint areas of low attenuation in spleen probably artifactual. Ischemic changes if present cannot be entirely excluded. Patient status post cholecystectomy. Normal pancreas. Normal adrenals. There is 8mm radiopaque density left kidney suggestive of calculus. There is tiny 1 mm calculus also identified in the adjacent parenchyma. No evidence of hydronephrosis. Bladder is faintly visualized and appears decompressed with a catheter within the bladder. There is a large cyst identified at superior aspect of uterus measuring 12 x 7 cm in diameter. There is oval mass identified to the left of the uterus within the pelvis measuring 8.8 x 5.7 cm in diameter with attenuation value of 30. No free intraperitoneal fluid or. No evidence of adenopathy degenerative sclerotic abdominal aorta without aneurysm. Impression: Faint linear lucencies within the spleen may be artifactual or related to ischemia/trauma. Further evaluation with contrast study advised. Nonobstructing calculi left kidney. Large cyst with thin septa anterosuperior to the uterus. Solid appearing mass left of the uterus in the pelvis. Further correlation with sonography may be recommended. Diverticulosis sigmoid colon without evidence of diverticulitis.
--- NOTE | 2018-01-25 14:35 | Progress Note ---
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 effusion vs infiltrate as possible source (+/- Thoracentesis) - quickly wean off steroids at this stage re: ? steroid leucocytosis - continue stress ulcer prophylaxis - continue Empiric antibiotics, plan to de-escalate per ID recs - continue supplemental oxygen to wean for oxygen saturations >90% (on 50% FiO2 now) - Wean vasopressor support for MAP>65 - continue Lung protective strategies, ARDS-net protocol - send repeat lactic acid and send CRP levels re: anti-infective de-escalation - continue other care per attending/other consultants ....remains critically ill on MVS and at high risk for further deterioration including ...35' CCT Subjective Date of service: 01/25/18 Principal diagnosis: Acute hypoxic respiratory failure, severe sepsis with shock , encephalopathy Interval history: Patient seen today for: Acute hypoxic respiratory failure, severe sepsis with shock, encephalopathy Seen and examined at bedside; 24-hour events reviewed; nursing and respiratory care staff consulted; no adverse overnight events reported to me; remains on MVS ; in bed; more alert and appropriate; No N/V/F/C; denies pain; did not tolerate bedside SBT well; delirious really Objective Vital Signs - 12hr 01/25/18 01/25/18 01/25/18 02:40 02:50 03:00 Temperature Pulse Rate 70 68 68 Pulse Rate [ 67 Anterior Bilateral Throughout] Pulse Rate [ From Monitor] Respiratory 14 14 14 Rate Respiratory 14 Rate [Anterior Bilateral Throughout] Blood Pressure 177/82 177/82 177/82 O2 Sat by Pulse 88 87 88 Oximetry 01/25/18 01/25/18 01/25/18 03:10 03:20 03:30 Temperature 97.1 F L Pulse Rate 62 65 66 Pulse Rate [ 70 Anterior Bilateral Throughout] Pulse Rate [ From Monitor] Respiratory 14 14 14 Rate Respiratory 16 Rate [Anterior Bilateral Throughout] Blood Pressure 90/49 90/49 90/49 O2 Sat by Pulse 98 97 97 Oximetry 01/25/18 01/25/18 01/25/18 03:40 03:50 04:00 Temperature Pulse Rate 86 73 72 Pulse Rate [ Anterior Bilateral Throughout] Pulse Rate [ 86 From Monitor] Respiratory 17 14 14 Rate Respiratory Rate [Anterior Bilateral Throughout] Blood Pressure 90/49 90/49 90/49 O2 Sat by Pulse 100 100 100 Oximetry 01/25/18 01/25/18 01/25/18 04:10 04:20 04:28 Temperature Pulse Rate 87 65 71 Pulse Rate [ Anterior Bilateral Throughout] Pulse Rate [ From Monitor] Respiratory 15 14 Rate Respiratory Rate [Anterior Bilateral Throughout] Blood Pressure 139/79 139/79 139/79 O2 Sat by Pulse 99 97 Oximetry 01/25/18 01/25/18 01/25/18 04:30 04:40 04:50 Temperature Pulse Rate 80 87 67 Pulse Rate [ Anterior Bilateral Throughout] Pulse Rate [ From Monitor] Respiratory 11 L 15 14 Rate Respiratory Rate [Anterior Bilateral Throughout] Blood Pressure 139/79 139/79 139/79 O2 Sat by Pulse 99 100 Oximetry 01/25/18 01/25/18 01/25/18 05:00 05:10 05:20 Temperature Pulse Rate 83 71 87 Pulse Rate [ Anterior Bilateral Throughout] Pulse Rate [ From Monitor] Respiratory 12 17 22 Rate Respiratory Rate [Anterior Bilateral Throughout] Blood Pressure 129/78 129/78 129/78 O2 Sat by Pulse 100 100 100 Oximetry 01/25/18 01/25/18 01/25/18 05:30 05:40 05:50 Temperature Pulse Rate 77 80 71 Pulse Rate [ Anterior Bilateral Throughout] Pulse Rate [ From Monitor] Respiratory 18 16 14 Rate Respiratory Rate [Anterior Bilateral Throughout] Blood Pressure 129/78 129/78 129/78 O2 Sat by Pulse 100 100 100 Oximetry 01/25/18 01/25/18 01/25/18 05:51 06:00 06:10 Temperature Pulse Rate 88 74 63 Pulse Rate [ Anterior Bilateral Throughout] Pulse Rate [ From Monitor] Respiratory 13 15 Rate Respiratory Rate [Anterior Bilateral Throughout] Blood Pressure 129/78 129/78 148/69 O2 Sat by Pulse 100 100 Oximetry 01/25/18 01/25/18 01/25/18 06:20 06:30 06:40 Temperature Pulse Rate 80 84 91 H Pulse Rate [ Anterior Bilateral Throughout] Pulse Rate [ From Monitor] Respiratory 13 14 14 Rate Respiratory Rate [Anterior Bilateral Throughout] Blood Pressure 148/69 148/69 148/69 O2 Sat by Pulse 100 100 100 Oximetry 01/25/18 01/25/18 01/25/18 06:50 07:00 07:10 Temperature Pulse Rate 91 H 92 H 89 Pulse Rate [ Anterior Bilateral Throughout] Pulse Rate [ From Monitor] Respiratory 15 15 15 Rate Respiratory Rate [Anterior Bilateral Throughout] Blood Pressure 148/69 148/69 122/83 O2 Sat by Pulse 100 99 98 Oximetry 01/25/18 01/25/18 01/25/18 07:20 07:30 07:40 Temperature Pulse Rate 89 90 95 H Pulse Rate [ Anterior Bilateral Throughout] Pulse Rate [ From Monitor] Respiratory 13 15 14 Rate Respiratory Rate [Anterior Bilateral Throughout] Blood Pressure 122/83 122/83 122/83 O2 Sat by Pulse 98 98 98 Oximetry 01/25/18 01/25/18 01/25/18 07:50 08:00 08:10 Temperature 98.5 F Pulse Rate 93 H 72 73 Pulse Rate [ Anterior Bilateral Throughout] Pulse Rate [ 72 From Monitor] Respiratory 9 L 7 L 14 Rate Respiratory Rate [Anterior Bilateral Throughout] Blood Pressure 122/83 89/52 89/52 O2 Sat by Pulse 97 99 100 Oximetry 01/25/18 01/25/18 01/25/18 08:20 08:30 08:40 Temperature Pulse Rate 72 72 69 Pulse Rate [ Anterior Bilateral Throughout] Pulse Rate [ From Monitor] Respiratory 14 14 14 Rate Respiratory Rate [Anterior Bilateral Throughout] Blood Pressure 89/52 89/52 89/52 O2 Sat by Pulse 100 99 100 Oximetry 01/25/18 01/25/18 01/25/18 08:50 09:00 09:10 Temperature Pulse Rate 70 69 69 Pulse Rate [ 89 Anterior Bilateral Throughout] Pulse Rate [ From Monitor] Respiratory 14 14 14 Rate Respiratory 16 Rate [Anterior Bilateral Throughout] Blood Pressure 89/52 76/43 74/40 O2 Sat by Pulse 100 99 97 Oximetry 01/25/18 01/25/18 01/25/18 09:20 09:30 09:40 Temperature Pulse Rate 70 64 64 Pulse Rate [ 82 Anterior Bilateral Throughout] Pulse Rate [ From Monitor] Respiratory 14 13 14 Rate Respiratory 16 Rate [Anterior Bilateral Throughout] Blood Pressure 74/40 74/40 77/50 O2 Sat by Pulse 100 100 100 Oximetry 01/25/18 01/25/18 01/25/18 09:50 10:00 10:10 Temperature Pulse Rate 63 61 76 Pulse Rate [ Anterior Bilateral Throughout] Pulse Rate [ From Monitor] Respiratory 14 11 L 12 Rate Respiratory Rate [Anterior Bilateral Throughout] Blood Pressure 80/43 92/54 109/66 O2 Sat by Pulse 100 99 98 Oximetry 01/25/18 01/25/18 01/25/18 10:20 10:30 10:40 Temperature Pulse Rate 85 72 88 Pulse Rate [ Anterior Bilateral Throughout] Pulse Rate [ From Monitor] Respiratory 15 14 24 Rate Respiratory Rate [Anterior Bilateral Throughout] Blood Pressure 109/66 109/66 109/66 O2 Sat by Pulse 99 99 Oximetry 01/25/18 01/25/18 01/25/18 10:50 11:00 11:10 Temperature Pulse Rate 68 78 76 Pulse Rate [ Anterior Bilateral Throughout] Pulse Rate [ From Monitor] Respiratory 16 12 11 L Rate Respiratory Rate [Anterior Bilateral Throughout] Blood Pressure 109/66 109/66 163/78 O2 Sat by Pulse 98 98 97 Oximetry 01/25/18 01/25/18 01/25/18 11:20 11:30 11:40 Temperature Pulse Rate 87 84 Pulse Rate [ Anterior Bilateral Throughout] Pulse Rate [ From Monitor] Respiratory 12 13 14 Rate Respiratory Rate [Anterior Bilateral Throughout] Blood Pressure 163/78 163/78 163/78 O2 Sat by Pulse 95 95 95 Oximetry 01/25/18 01/25/18 01/25/18 12:00 12:02 12:10 Temperature 98.4 F Pulse Rate 62 64 Pulse Rate [ Anterior Bilateral Throughout] Pulse Rate [ From Monitor] Respiratory 13 21 Rate Respiratory Rate [Anterior Bilateral Throughout] Blood Pressure 150/77 O2 Sat by Pulse 96 97 Oximetry 01/25/18 01/25/18 01/25/18 12:20 12:30 12:33 Temperature Pulse Rate 66 86 77 Pulse Rate [ Anterior Bilateral Throughout] Pulse Rate [ From Monitor] Respiratory 16 8 L Rate Respiratory Rate [Anterior Bilateral Throughout] Blood Pressure 150/77 177/75 177/75 O2 Sat by Pulse 96 Oximetry 01/25/18 01/25/18 01/25/18 12:40 12:50 13:00 Temperature Pulse Rate 79 66 68 Pulse Rate [ Anterior Bilateral Throughout] Pulse Rate [ From Monitor] Respiratory 12 10 L 12 Rate Respiratory Rate [Anterior Bilateral Throughout] Blood Pressure 177/75 177/75 131/86 O2 Sat by Pulse 97 97 97 Oximetry Constitutional: appears uncomfortable Eyes: non-icteric ENT: oropharynx moist, other (ETT 20 cm MARGOT and advanced to 23cm MARGOT) Neck: supple, no lymphadenopathy, no JVD, other (no thyromegaly) Effort: mildly labored Ascultation: Bilateral: diminished breath sounds, rales Percussion: Bilateral: not dull Cardiovascular: regular rate and rhythm, other (no rubs or murmurs) Gastrointestinal: normoactive bowel sounds, soft, non-tender, non-distended, other (no [place] HSM) Integumentary: normal Extremities: no cyanosis, no edema, pink and warm, pulses normal Neurologic: non-focal exam (grossly), motor strength normal and, other (agitated ) Psychiatric: other (delirious) CBC and BMP: 01/26/18 06:20 01/26/18 06:20 ABG, PT/INR, D-dimer: ABG POC ABG pH 7.342 (7.35-7.45) L 01/25/18 04:34 POC ABG pCO2 48.7 (35-45) H 01/25/18 04:34 POC ABG pO2 80 (80-105) 01/25/18 04:34 POC ABG HCO3 26.4 01/25/18 04:34 POC ABG Total CO2 28 01/25/18 04:34 POC ABG O2 Sat 95 01/25/18 04:34 PT/INR, D-dimer PT 17.5 Sec. (12.2-14.9) H 01/20/18 07:00 INR 1.35 (0.87-1.13) H 01/20/18 07:00 Abnormal lab findings: Abnormal Labs 01/17/18 01/17/18 01/17/18 15:25 16:15 16:48 WBC MCH Plt Count Seg Neuts % (Manual) Lymphocytes % (Manual) Monocytes % (Manual) Nucleated RBC % Seg Neutrophils # Man Lymphocytes # (Manual) Monocytes # (Manual) PT INR POC ABG pH 7.099 L POC ABG pCO2 58.9 H POC ABG pO2 149 H VBG pH Sodium Potassium Chloride Carbon Dioxide BUN Creatinine Glucose POC Glucose < 40 L 121 H Hemoglobin A1c Lactic Acid Calcium Total Bilirubin AST ALT Alkaline Phosphatase C-Reactive Protein Total Protein Albumin 01/17/18 01/17/18 01/17/18 16:54 16:54 16:54 WBC MCH Plt Count Seg Neuts % (Manual) 72.0 H Lymphocytes % (Manual) 3.0 L Monocytes % (Manual) Nucleated RBC % Seg Neutrophils # Man Lymphocytes # (Manual) 0.2 L Monocytes # (Manual) PT 18.5 H INR 1.45 H POC ABG pH POC ABG pCO2 POC ABG pO2 VBG pH Sodium 136 L Potassium Chloride 97.8 L Carbon Dioxide 16 L BUN 43 H Creatinine 3.3 H Glucose 121 H POC Glucose Hemoglobin A1c Lactic Acid Calcium 6.7 L Total Bilirubin AST ALT Alkaline Phosphatase C-Reactive Protein Total Protein 4.4 L Albumin 2.3 L 01/17/18 01/17/18 01/17/18 16:54 16:54 17:11 WBC MCH Plt Count Seg Neuts % (Manual) Lymphocytes % (Manual) Monocytes % (Manual) Nucleated RBC % Seg Neutrophils # Man Lymphocytes # (Manual) Monocytes # (Manual) PT INR POC ABG pH POC ABG pCO2 POC ABG pO2 VBG pH 7.273 L Sodium Potassium Chloride Carbon Dioxide BUN Creatinine Glucose POC Glucose Hemoglobin A1c Lactic Acid 4.70 H* 4.30 H* Calcium Total Bilirubin AST ALT Alkaline Phosphatase C-Reactive Protein Total Protein Albumin 01/17/18 01/17/18 01/17/18 18:02 18:15 19:21 WBC MCH Plt Count Seg Neuts % (Manual) Lymphocytes % (Manual) Monocytes % (Manual) Nucleated RBC % Seg Neutrophils # Man Lymphocytes # (Manual) Monocytes # (Manual) PT INR POC ABG pH 7.177 L POC ABG pCO2 POC ABG pO2 VBG pH Sodium Potassium Chloride Carbon Dioxide BUN Creatinine Glucose POC Glucose < 40 L Hemoglobin A1c Lactic Acid 3.00 H* Calcium Total Bilirubin AST ALT Alkaline Phosphatase C-Reactive Protein Total Protein Albumin 01/17/18 01/17/18 01/17/18 22:36 22:36 23:16 WBC MCH Plt Count Seg Neuts % (Manual) Lymphocytes % (Manual) Monocytes % (Manual) Nucleated RBC % Seg Neutrophils # Man Lymphocytes # (Manual) Monocytes # (Manual) PT INR POC ABG pH 7.112 L POC ABG pCO2 50.1 H POC ABG pO2 50 L VBG pH Sodium Potassium Chloride Carbon Dioxide BUN Creatinine Glucose POC Glucose Hemoglobin A1c 9.0 H Lactic Acid 5.50 H* Calcium Total Bilirubin AST ALT Alkaline Phosphatase C-Reactive Protein Total Protein Albumin 01/18/18 01/18/18 01/18/18 01:26 03:21 03:21 WBC MCH Plt Count Seg Neuts % (Manual) 27.0 L Lymphocytes % (Manual) 3.0 L Monocytes % (Manual) 14.0 H Nucleated RBC % Seg Neutrophils # Man Lymphocytes # (Manual) 0.3 L Monocytes # (Manual) 1.4 H PT INR POC ABG pH POC ABG pCO2 POC ABG pO2 VBG pH Sodium Potassium Chloride Carbon Dioxide BUN Creatinine Glucose POC Glucose 107 H Hemoglobin A1c Lactic Acid 8.00 H* Calcium Total Bilirubin AST ALT Alkaline Phosphatase C-Reactive Protein Total Protein Albumin 01/18/18 01/18/18 01/18/18 03:21 04:40 05:07 WBC MCH Plt Count Seg Neuts % (Manual) Lymphocytes % (Manual) Monocytes % (Manual) Nucleated RBC % Seg Neutrophils # Man Lymphocytes # (Manual) Monocytes # (Manual) PT INR POC ABG pH 7.093 L POC ABG pCO2 31.5 L POC ABG pO2 77 L VBG pH Sodium Potassium Chloride 96.9 L Carbon Dioxide 14 L BUN 47 H Creatinine 3.4 H Glucose POC Glucose Hemoglobin A1c Lactic Acid 11.10 H* Calcium 6.4 L Total Bilirubin AST 47 H ALT Alkaline Phosphatase C-Reactive Protein Total Protein 4.3 L Albumin 2.4 L 01/18/18 01/18/18 01/18/18 06:29 07:06 11:44 WBC MCH Plt Count Seg Neuts % (Manual) Lymphocytes % (Manual) Monocytes % (Manual) Nucleated RBC % Seg Neutrophils # Man Lymphocytes # (Manual) Monocytes # (Manual) PT INR POC ABG pH POC ABG pCO2 POC ABG pO2 VBG pH Sodium Potassium Chloride Carbon Dioxide BUN Creatinine Glucose POC Glucose 47 L 149 H < 40 L Hemoglobin A1c Lactic Acid Calcium Total Bilirubin AST ALT Alkaline Phosphatase C-Reactive Protein Total Protein Albumin 01/18/18 01/18/18 01/18/18 11:46 14:15 18:01 WBC MCH Plt Count Seg Neuts % (Manual) Lymphocytes % (Manual) Monocytes % (Manual) Nucleated RBC % Seg Neutrophils # Man Lymphocytes # (Manual) Monocytes # (Manual) PT INR POC ABG pH POC ABG pCO2 POC ABG pO2 VBG pH Sodium Potassium Chloride Carbon Dioxide BUN Creatinine Glucose POC Glucose 116 H < 40 L Hemoglobin A1c Lactic Acid 10.00 H* Calcium Total Bilirubin AST ALT Alkaline Phosphatase C-Reactive Protein Total Protein Albumin 01/18/18 01/18/18 01/18/18 18:02 23:25 23:27 WBC MCH Plt Count Seg Neuts % (Manual) Lymphocytes % (Manual) Monocytes % (Manual) Nucleated RBC % Seg Neutrophils # Man Lymphocytes # (Manual) Monocytes # (Manual) PT INR POC ABG pH POC ABG pCO2 POC ABG pO2 VBG pH Sodium Potassium Chloride Carbon Dioxide BUN Creatinine Glucose POC Glucose 136 H < 40 L < 40 L Hemoglobin A1c Lactic Acid Calcium Total Bilirubin AST ALT Alkaline Phosphatase C-Reactive Protein Total Protein Albumin 01/19/18 01/19/18 01/19/18 04:02 06:50 06:50 WBC 18.5 H MCH Plt Count 136 L Seg Neuts % (Manual) 86.0 H Lymphocytes % (Manual) 4.0 L Monocytes % (Manual) Nucleated RBC % Seg Neutrophils # Man 15.9 H Lymphocytes # (Manual) 0.7 L Monocytes # (Manual) 1.1 H PT 21.3 H INR 1.73 H POC ABG pH POC ABG pCO2 28.3 L POC ABG pO2 57 L VBG pH Sodium Potassium Chloride Carbon Dioxide BUN Creatinine Glucose POC Glucose Hemoglobin A1c Lactic Acid Calcium Total Bilirubin AST ALT Alkaline Phosphatase C-Reactive Protein Total Protein Albumin 01/19/18 01/19/18 01/19/18 06:50 08:45 11:17 WBC MCH Plt Count Seg Neuts % (Manual) Lymphocytes % (Manual) Monocytes % (Manual) Nucleated RBC % Seg Neutrophils # Man Lymphocytes # (Manual) Monocytes # (Manual) PT INR POC ABG pH POC ABG pCO2 POC ABG pO2 VBG pH Sodium 135 L Potassium Chloride 92.8 L Carbon Dioxide 19 L BUN 31 H Creatinine 2.6 H Glucose POC Glucose 110 H Hemoglobin A1c Lactic Acid 7.90 H* Calcium 7.1 L Total Bilirubin 1.60 H AST 2526 H ALT 1187 H Alkaline Phosphatase 133 H C-Reactive Protein Total Protein 4.8 L Albumin 2.0 L 01/19/18 01/19/18 01/19/18 11:31 22:12 23:34 WBC MCH Plt Count Seg Neuts % (Manual) Lymphocytes % (Manual) Monocytes % (Manual) Nucleated RBC % Seg Neutrophils # Man Lymphocytes # (Manual) Monocytes # (Manual) PT INR POC ABG pH POC ABG pCO2 31.6 L POC ABG pO2 59 L VBG pH Sodium Potassium Chloride Carbon Dioxide BUN Creatinine Glucose POC Glucose 131 H 53 L Hemoglobin A1c Lactic Acid Calcium Total Bilirubin AST ALT Alkaline Phosphatase C-Reactive Protein Total Protein Albumin 01/20/18 01/20/18 01/20/18 05:18 05:18 05:19 WBC 19.7 H MCH 27 L Plt Count 84 L Seg Neuts % (Manual) 84.0 H Lymphocytes % (Manual) 2.0 L Monocytes % (Manual) 8.0 H Nucleated RBC % Seg Neutrophils # Man 16.5 H Lymphocytes # (Manual) 0.4 L Monocytes # (Manual) 1.6 H PT INR POC ABG pH POC ABG pCO2 POC ABG pO2 VBG pH Sodium 136 L Potassium Chloride 96.9 L Carbon Dioxide 17 L BUN 65 H Creatinine 4.1 H D Glucose 104 H POC Glucose 125 H Hemoglobin A1c Lactic Acid Calcium 7.1 L Total Bilirubin 1.60 H AST 1702 H ALT 1141 H Alkaline Phosphatase 172 H C-Reactive Protein Total Protein 5.0 L Albumin 1.7 L 01/20/18 01/20/18 01/20/18 07:00 11:48 13:54 WBC MCH Plt Count Seg Neuts % (Manual) Lymphocytes % (Manual) Monocytes % (Manual) Nucleated RBC % Seg Neutrophils # Man Lymphocytes # (Manual) Monocytes # (Manual) PT 17.5 H INR 1.35 H POC ABG pH POC ABG pCO2 POC ABG pO2 VBG pH Sodium Potassium Chloride Carbon Dioxide BUN Creatinine Glucose POC Glucose 109 H Hemoglobin A1c Lactic Acid Calcium Total Bilirubin AST ALT Alkaline Phosphatase C-Reactive Protein 37.50 H Total Protein Albumin 01/20/18 01/20/18 01/20/18 17:28 17:51 20:50 WBC MCH Plt Count Seg Neuts % (Manual) Lymphocytes % (Manual) Monocytes % (Manual) Nucleated RBC % Seg Neutrophils # Man Lymphocytes # (Manual) Monocytes # (Manual) PT INR POC ABG pH POC ABG pCO2 POC ABG pO2 VBG pH Sodium Potassium Chloride Carbon Dioxide BUN Creatinine Glucose POC Glucose 140 H Hemoglobin A1c Lactic Acid 2.70 H* 2.30 H* Calcium Total Bilirubin AST ALT Alkaline Phosphatase C-Reactive Protein Total Protein Albumin 01/20/18 01/20/18 01/21/18 23:55 Unknown 00:12 WBC MCH Plt Count Seg Neuts % (Manual) Lymphocytes % (Manual) Monocytes % (Manual) Nucleated RBC % Seg Neutrophils # Man Lymphocytes # (Manual) Monocytes # (Manual) PT INR POC ABG pH POC ABG pCO2 POC ABG pO2 VBG pH Sodium Potassium Chloride Carbon Dioxide BUN Creatinine Glucose POC Glucose 149 H 134 H Hemoglobin A1c Lactic Acid 2.50 H* Calcium Total Bilirubin AST ALT Alkaline Phosphatase C-Reactive Protein Total Protein Albumin 01/21/18 01/21/18 01/21/18 04:27 05:00 05:00 WBC 21.7 H MCH 27 L Plt Count 67 L Seg Neuts % (Manual) 71.0 H Lymphocytes % (Manual) 9.0 L Monocytes % (Manual) Nucleated RBC % 4.0 H Seg Neutrophils # Man 15.4 H Lymphocytes # (Manual) Monocytes # (Manual) PT INR POC ABG pH POC ABG pCO2 33.8 L POC ABG pO2 72 L VBG pH Sodium Potassium Chloride Carbon Dioxide 21 L BUN 71 H Creatinine 4.1 H Glucose 149 H POC Glucose Hemoglobin A1c Lactic Acid Calcium 7.5 L Total Bilirubin AST 494 H ALT 780 H Alkaline Phosphatase 151 H C-Reactive Protein Total Protein 4.9 L Albumin 1.9 L 01/21/18 01/21/18 01/21/18 05:00 05:18 12:20 WBC MCH Plt Count Seg Neuts % (Manual) Lymphocytes % (Manual) Monocytes % (Manual) Nucleated RBC % Seg Neutrophils # Man Lymphocytes # (Manual) Monocytes # (Manual) PT INR POC ABG pH POC ABG pCO2 POC ABG pO2 VBG pH Sodium Potassium Chloride Carbon Dioxide BUN Creatinine Glucose POC Glucose 132 H 158 H Hemoglobin A1c Lactic Acid 2.10 H* Calcium Total Bilirubin AST ALT Alkaline Phosphatase C-Reactive Protein Total Protein Albumin 01/21/18 01/21/18 01/22/18 18:07 23:40 03:48 WBC MCH Plt Count Seg Neuts % (Manual) Lymphocytes % (Manual) Monocytes % (Manual) Nucleated RBC % Seg Neutrophils # Man Lymphocytes # (Manual) Monocytes # (Manual) PT INR POC ABG pH POC ABG pCO2 POC ABG pO2 65 L VBG pH Sodium Potassium Chloride Carbon Dioxide BUN Creatinine Glucose POC Glucose 143 H 136 H Hemoglobin A1c Lactic Acid Calcium Total Bilirubin AST ALT Alkaline Phosphatase C-Reactive Protein Total Protein Albumin 01/22/18 01/22/18 01/22/18 04:10 04:10 05:56 WBC 24.9 H MCH 27 L Plt Count 80 L Seg Neuts % (Manual) Lymphocytes % (Manual) Monocytes % (Manual) Nucleated RBC % Seg Neutrophils # Man Lymphocytes # (Manual) Monocytes # (Manual) PT INR POC ABG pH POC ABG pCO2 POC ABG pO2 VBG pH Sodium Potassium Chloride 97.7 L Carbon Dioxide BUN 72 H Creatinine 3.6 H Glucose 145 H POC Glucose 139 H Hemoglobin A1c Lactic Acid Calcium 7.3 L Total Bilirubin AST 146 H ALT 547 H Alkaline Phosphatase C-Reactive Protein Total Protein 5.2 L Albumin 2.3 L 01/22/18 01/22/18 01/23/18 11:30 17:41 00:00 WBC MCH Plt Count Seg Neuts % (Manual) Lymphocytes % (Manual) Monocytes % (Manual) Nucleated RBC % Seg Neutrophils # Man Lymphocytes # (Manual) Monocytes # (Manual) PT INR POC ABG pH POC ABG pCO2 POC ABG pO2 VBG pH Sodium Potassium Chloride Carbon Dioxide BUN Creatinine Glucose POC Glucose 156 H 185 H 150 H Hemoglobin A1c Lactic Acid Calcium Total Bilirubin AST ALT Alkaline Phosphatase C-Reactive Protein Total Protein Albumin 01/23/18 01/23/18 01/23/18 04:39 05:24 11:38 WBC MCH Plt Count Seg Neuts % (Manual) Lymphocytes % (Manual) Monocytes % (Manual) Nucleated RBC % Seg Neutrophils # Man Lymphocytes # (Manual) Monocytes # (Manual) PT INR POC ABG pH POC ABG pCO2 31.9 L POC ABG pO2 62 L VBG pH Sodium Potassium Chloride Carbon Dioxide BUN Creatinine Glucose POC Glucose 215 H 182 H Hemoglobin A1c Lactic Acid Calcium Total Bilirubin AST ALT Alkaline Phosphatase C-Reactive Protein Total Protein Albumin 01/23/18 01/23/18 01/24/18 14:20 17:26 00:10 WBC MCH Plt Count Seg Neuts % (Manual) Lymphocytes % (Manual) Monocytes % (Manual) Nucleated RBC % Seg Neutrophils # Man Lymphocytes # (Manual) Monocytes # (Manual) PT INR POC ABG pH POC ABG pCO2 31.4 L POC ABG pO2 55 L VBG pH Sodium Potassium Chloride Carbon Dioxide BUN Creatinine Glucose POC Glucose 252 H 225 H Hemoglobin A1c Lactic Acid Calcium Total Bilirubin AST ALT Alkaline Phosphatase C-Reactive Protein Total Protein Albumin 01/24/18 01/24/18 01/24/18 03:40 03:40 06:06 WBC 34.5 H MCH 27 L Plt Count 130 L Seg Neuts % (Manual) Lymphocytes % (Manual) Monocytes % (Manual) Nucleated RBC % Seg Neutrophils # Man Lymphocytes # (Manual) Monocytes # (Manual) PT INR POC ABG pH POC ABG pCO2 POC ABG pO2 VBG pH Sodium Potassium 5.7 H D Chloride 95.6 L Carbon Dioxide 20 L BUN 96 H Creatinine 4.2 H Glucose 166 H POC Glucose 162 H Hemoglobin A1c Lactic Acid Calcium 7.3 L Total Bilirubin AST 52 H ALT 235 H Alkaline Phosphatase C-Reactive Protein Total Protein 5.1 L Albumin 2.5 L 01/24/18 01/24/18 01/24/18 11:36 15:08 17:32 WBC MCH Plt Count Seg Neuts % (Manual) Lymphocytes % (Manual) Monocytes % (Manual) Nucleated RBC % Seg Neutrophils # Man Lymphocytes # (Manual) Monocytes # (Manual) PT INR POC ABG pH POC ABG pCO2 POC ABG pO2 VBG pH Sodium Potassium Chloride Carbon Dioxide BUN Creatinine Glucose POC Glucose 160 H 160 H Hemoglobin A1c Lactic Acid Calcium Total Bilirubin AST ALT Alkaline Phosphatase C-Reactive Protein 3.30 H Total Protein Albumin 01/25/18 01/25/18 01/25/18 00:04 04:34 05:25 WBC MCH Plt Count Seg Neuts % (Manual) Lymphocytes % (Manual) Monocytes % (Manual) Nucleated RBC % Seg Neutrophils # Man Lymphocytes # (Manual) Monocytes # (Manual) PT INR POC ABG pH 7.342 L POC ABG pCO2 48.7 H POC ABG pO2 VBG pH Sodium Potassium Chloride Carbon Dioxide BUN Creatinine Glucose POC Glucose 169 H 133 H Hemoglobin A1c Lactic Acid Calcium Total Bilirubin AST ALT Alkaline Phosphatase C-Reactive Protein Total Protein Albumin 01/25/18 11:46 WBC MCH Plt Count Seg Neuts % (Manual) Lymphocytes % (Manual) Monocytes % (Manual) Nucleated RBC % Seg Neutrophils # Man Lymphocytes # (Manual) Monocytes # (Manual) PT INR POC ABG pH POC ABG pCO2 POC ABG pO2 VBG pH Sodium Potassium Chloride Carbon Dioxide BUN Creatinine Glucose POC Glucose 121 H Hemoglobin A1c Lactic Acid Calcium Total Bilirubin AST ALT Alkaline Phosphatase C-Reactive Protein Total Protein Albumin Chest x-ray: image reviewed (ETT riding high) Allied health notes reviewed: nursing
--- NOTE | 2018-01-25 17:06 | XRay Report ---
FINAL REPORT EXAM: XR CHEST 1V AP HISTORY: ET tube advancement TECHNIQUE: Frontal portable examination of the chest PRIORS: 01/24/2018 FINDINGS: An electronic cardiac device remains in place and again obscures a portion of the right chest, limiting the examination. Cable entry is via the right subclavian vein. Stable position of NG tube and right central venous catheter. Right lung appears clear. Visible portion of left lung appears clear although the base is obscured by cardiac silhouette. Left diaphragm also obscured possibly from effusion, atelectasis, or pneumonitis. No pneumothorax. Cardiac silhouette slightly enlarged. No acute displaced fracture. IMPRESSION: An endotracheal tube remains in place in the region of the trachea with distal tip projecting approximately 4.4 cm above the region of the glen. Left lung base opacity may be artifact from obscuration. Differential includes left pleural effusion, atelectasis, or pneumonitis Cardiomegaly without definite vascular congestion
[2018-01-25] MEDS: LEVAQUIN 750MG/150ML 750 MG/150 ML BAG IV SCH (17:41)
[2018-01-26] MEDS: HumaLOG SUB-Q SCH ×4 (00:11→18:39)
[2018-01-26] MEDS: LOPRESSOR IV SCH ×4 (00:12→17:38)
[2018-01-26] MEDS: FLAGYL 500 MG/100 ML 500 MG/100 ML BAG IV SCH ×3 (03:28→17:42)
[2018-01-26] MEDS: DUONEB *Not for PRN Use IH SCH ×4 (03:54→19:43)
[2018-01-26] MEDS: fentaNYL DRIP Premix 2,000 MCG/100 ML BAG IV SCH (04:30)
[2018-01-26 07:10] LABS: Hematocrit 32.2 % (30.3-42.9); Hemoglobin 10.4 gm/dl (10.1-14.3); Mean Corpuscular HGB Conc 32 % (30-34); Mean Corpuscular Hemoglobin 28 pg (28-32); Mean Corpuscular Volume 85 fl (79-97); Platelet Count 221 K/mm3 (140-440); Red Blood Count 3.77 M/mm3 (3.65-5.03); Red Cell Distribution Width 15.1 % (13.2-15.2)
[2018-01-26 07:21] LABS: Calcium 6.6 mg/dL (8.4-10.2)
[2018-01-26 08:38] LABS: Band Neutrophils # (Manual) 0.4 K/mm3; Basophils % (Manual) 0 % (0.0-1.8); Eosinophils % (Manual) 0 % (0.0-4.3); Myelocytes # (Manual) 0.2 K/mm3; Total Cells Counted 100
[2018-01-26 08:39] LABS: Ovalocytes 1+; Stomatocytes Few; Target Cells Few
[2018-01-26] MEDS: PEPCID PO SCH (09:18)
[2018-01-26] MEDS: DELTASONE PO SCH (09:18)
[2018-01-26] MEDS: SODIUM CHLORIDE FLUSH SYRINGE 10 ML IV SCH ×2 (09:18→21:38)
[2018-01-26] MEDS: ELIQUIS FEEDTUBE SCH ×2 (09:19→21:37)
--- NOTE | 2018-01-26 11:19 | Progress Note ---
Assessment and Plan Assessment and plan: Acute hypercapenic respiratory failure - Likely from drug abuse and aspiration - VAP bundle -on vent support Large Left Pleural Effusion - Will discuss with Pulmonary about Thoracentesis Severe Sepsis with septic shock likely from aspiration pneumonia-POA -Recurrent fever possible due to the infection -Had some reaction to zosyn with facial flushing -abx changed to levaquin and flagyl -worsening Leukocytosis like secondary to steroids given for allergic reaction -Left lobar infiltrate on admission -We'll continue broad-spectrum antibiotic for now -?pelvic mass, Discussed with INSURANCE CONSULTANT likely cyst. and Pelvic ultrasound -negative blood culture, sputum cx pending -Lactic acidosis likely from severe sepsis and along with decline in renal function -placed on bicarbonate drip initially, now on HD DM uncontrolled -Continue insulin therapy Shock required pressors - likely from sepsis vs cardiogenic - Continue IV antibiotics - off pressors today. required 3 pressors on admission Decompensated acute CHF - EF 30-35% on echo - cardiology following - cautious use of iv fluid History of pacemaker insertion in 2008 post PCI History of CAD s/p PCI in 2008 JANESSA Etiology likely due to ATN from severe sepsis - monitor renal function, now on HD - Avoid nephrotoxins, nephrology consulted Hyperkalemia -Continue hemodialysis -Kayexalate 1 History of cocaine and methamphetamine abuse, Acute encephalopathy - Multifactorial, likely from drug abuse vs severe sepsis versus anoxic encephalopathy - CT head no acute finding -Pacemaker precludes getting MRI brain -Neurology consultation ordered Ischemic hepatitis Elevated LFTs, etiology secondary to shock liver syndrome - Likely from severe hypotension causing shock liver - Continue to monitor Coagulopathy Etiology due to severe sepsis and abnormal liver function Bilateral finger Ischemic Changes possible secondary to pressors but potentiated by hx of from drug abuse, will get vascular consult Thrombocytopenia Etiology likely secondary to sepsis - Mont[place] Disposition: Continue ICU monitoring, very poor prognosis. The high probability of a clinically significant, sudden or life threatening deterioration of the [multiorgan] system(s) required my full and direct attention, intervention and personal management. The aggregate critical care time was [33] minutes. This time is in addition to time spent performing reported procedures but includes the following: [x] Data Review and interpretation [x] Patient assessment and monitoring of vital signs [x] Documentation [x] Medication orders and management History Interval history: 62-year-old admitted with hx of htn, polysubstance drug abuse per family, admitted after she was found unresponsive found in the bathroom pf a friends home, noted with severe lactic acidosis, hypotensive on vasopressors, hypercapenic respiratory failure requiring intubation . Hospitalist Physical - Constitutional Vitals: Temp Pulse Resp BP Pulse Ox 97.9 F 70 10 L 107/52 100 01/26/18 08:00 01/26/18 11:00 01/26/18 11:00 01/26/18 11:00 01/26/18 11:00 General appearance: Present: other (intubated) - EENT Eyes: Present: PERRL, EOM intact ENT: hearing intact, clear oral mucosa, dentition normal - Neck Neck: Present: supple, normal ROM - Respiratory Respiratory effort: normal Respiratory: bilateral: diminished, rhonchi - Cardiovascular Rhythm: regular Heart Sounds: Present: S1 & S2. Absent: gallop, rub - Extremities Extremities: no ischemia, No edema, Full ROM - Abdominal General gastrointestinal: soft, non-tender, non-distended, normal bowel sounds - Integumentary Integumentary: Present: clear, warm, dry - Neurologic Neurologic: CNII-XII intact, moves all extremities Results - Labs CBC & Chem 7: 01/26/18 06:20 01/26/18 06:20 Labs: Laboratory Last Values WBC 21.0 K/mm3 (4.5-11.0) H 01/26/18 06:20 RBC 3.77 M/mm3 (3.65-5.03) 01/26/18 06:20 Hgb 10.4 gm/dl (10.1-14.3) 01/26/18 06:20 Hct 32.2 % (30.3-42.9) 01/26/18 06:20 MCV 85 fl (79-97) 01/26/18 06:20 MCH 28 pg (28-32) 01/26/18 06:20 MCHC 32 % (30-34) 01/26/18 06:20 RDW 15.1 % (13.2-15.2) 01/26/18 06:20 Plt Count 221 K/mm3 (140-440) 01/26/18 06:20 Lymph % (Auto) Advertising Coordinator 01/17/18 16:54 Wheeler % (Auto) Advertising Coordinator 01/17/18 16:54 Eos % (Auto) Advertising Coordinator 03/09/18 16:54 Baso % (Auto) Advertising Coordinator 01/17/18 16:54 Lymph # Advertising Coordinator 01/17/18 16:54 Wheeler # Advertising Coordinator 01/17/18 16:54 Eos # Advertising Coordinator 01/17/18 16:54 Baso # Advertising Coordinator 01/17/18 16:54 Add Manual Diff Complete 01/26/18 06:20 Total Counted 100 01/26/18 06:20 Seg Neutrophils % Advertising Coordinator 01/26/18 06:20 Seg Neuts % (Manual) 95.0 % (40.0-70.0) H 01/26/18 06:20 Band Neutrophils % 2.0 % 01/26/18 06:20 Lymphocytes % (Manual) 1.0 % (13.4-35.0) L 01/26/18 06:20 Reactive Lymphs % (Man) 0 % 01/26/18 06:20 Monocytes % (Manual) 1.0 % (0.0-7.3) 01/26/18 06:20 Eosinophils % (Manual) 0 % (0.0-4.3) 01/26/18 06:20 Basophils % (Manual) 0 % (0.0-1.8) 01/26/18 06:20 Metamyelocytes % 0 % 01/26/18 06:20 Myelocytes % 1.0 % 01/26/18 06:20 Promyelocytes % 0 % 01/26/18 06:20 Blast Cells % 0 % 01/26/18 06:20 Nucleated RBC % Not Reportable 01/26/18 06:20 Seg Neutrophils # Advertising Coordinator 01/17/18 16:54 Seg Neutrophils # Man 20.0 K/mm3 (1.8-7.7) H 01/26/18 06:20 Band Neutrophils # 0.4 K/mm3 01/26/18 06:20 Lymphocytes # (Manual) 0.2 K/mm3 (1.2-5.4) L 01/26/18 06:20 Abs React Lymphs (Man) 0.0 K/mm3 01/26/18 06:20 Monocytes # (Manual) 0.2 K/mm3 (0.0-0.8) 01/26/18 06:20 Eosinophils # (Manual) 0.0 K/mm3 (0.0-0.4) 01/26/18 06:20 Basophils # (Manual) 0.0 K/mm3 (0.0-0.1) 01/26/18 06:20 Metamyelocytes # 0.0 K/mm3 01/26/18 06:20 Myelocytes # 0.2 K/mm3 01/26/18 06:20 Promyelocytes # 0.0 K/mm3 01/26/18 06:20 Blast Cells # 0.0 K/mm3 01/26/18 06:20 WBC Morphology Not Reportable 01/26/18 06:20 Hypersegmented Neuts Not Reportable 01/26/18 06:20 Hyposegmented Neuts Not Reportable 01/26/18 06:20 Hypogranular Neuts Not Reportable 01/26/18 06:20 Smudge Cells Not Reportable 01/26/18 06:20 Toxic Granulation Not Reportable 01/26/18 06:20 Toxic Vacuolation Not Reportable 01/26/18 06:20 Dohle Bodies Not Reportable 01/26/18 06:20 Pelger-Huet Anomaly Not Reportable 01/26/18 06:20 Opal Rods Not Reportable 01/26/18 06:20 Platelet Estimate Appears normal 01/26/18 06:20 Clumped Platelets Not Reportable 01/26/18 06:20 Plt Clumps, EDTA Not Reportable 01/26/18 06:20 Large Platelets Not Reportable 01/26/18 06:20 Giant Platelets Not Reportable 01/26/18 06:20 Platelet Satelliting Not Reportable 01/26/18 06:20 Plt Morphology Comment Not Reportable 01/26/18 06:20 RBC Morphology Not Reportable 01/26/18 06:20 Dimorphic RBCs Not Reportable 01/26/18 06:20 Polychromasia Not Reportable 01/26/18 06:20 Hypochromasia Not Reportable 01/26/18 06:20 Poikilocytosis Not Reportable 01/26/18 06:20 Anisocytosis Not Reportable 01/26/18 06:20 Microcytosis Not Reportable 01/26/18 06:20 Macrocytosis Not Reportable 01/26/18 06:20 Spherocytes Not Reportable 01/26/18 06:20 Pappenheimer Bodies Not Reportable 01/26/18 06:20 Sickle Cells Not Reportable 01/26/18 06:20 Target Cells Few 01/26/18 06:20 Tear Drop Cells Not Reportable 01/26/18 06:20 Ovalocytes 1+ 01/26/18 06:20 Stomatocytes Few 01/26/18 06:20 Helmet Cells Not Reportable 01/26/18 06:20 [place] Bodies Not Reportable 01/26/18 06:20 [place] Rings Not Reportable 01/26/18 06:20 [place] Cells Not Reportable 01/26/18 06:20 Bite Cells Not Reportable 01/26/18 06:20 Crenated Cell Not Reportable 01/26/18 06:20 Elliptocytes Rare 01/26/18 06:20 Acanthocytes (Spur) Not Reportable 01/26/18 06:20 Rouleaux Not Reportable 01/26/18 06:20 Hemoglobin C Crystals Not Reportable 01/26/18 06:20 Schistocytes Not Reportable 01/26/18 06:20 Malaria parasites Not Reportable 01/26/18 06:20 Brock Bodies Not Reportable 01/26/18 06:20 Hem Pathologist Commnt No 01/26/18 06:20 PT 17.5 Sec. (12.2-14.9) H 01/20/18 07:00 INR 1.35 (0.87-1.13) H 01/20/18 07:00 Heparin Anti-Xa, Unfract Negative (Negative) 01/20/18 11:03 POC ABG pH 7.380 (7.35-7.45) 01/26/18 04:13 POC ABG pCO2 40.9 (35-45) 01/26/18 04:13 POC ABG pO2 70 (80-105) L 01/26/18 04:13 POC ABG HCO3 24.2 01/26/18 04:13 POC ABG Total CO2 25 01/26/18 04:13 POC ABG O2 Sat 94 01/26/18 04:13 POC ABG Base Excess -1 01/26/18 04:13 VBG pH 7.273 (7.320-7.420) L 01/17/18 16:54 FiO2 30 % 01/26/18 04:13 Sodium 138 mmol/L (137-145) 01/26/18 06:20 Potassium 5.9 mmol/L (3.6-5.0) H 01/26/18 06:20 Chloride 95.7 mmol/L (98-107) L 01/26/18 06:20 Carbon Dioxide 22 mmol/L (22-30) 01/26/18 06:20 Anion Gap 26 mmol/L 01/26/18 06:20 BUN 102 mg/dL (7-17) H 01/26/18 06:20 Creatinine 4.6 mg/dL (0.7-1.2) H 01/26/18 06:20 Estimated GFR 10 ml/min 01/26/18 06:20 BUN/Creatinine Ratio 22 % 01/26/18 06:20 Glucose 94 mg/dL (65-100) 01/26/18 06:20 POC Glucose 107 (70-105) H 01/26/18 05:25 Hemoglobin A1c 9.0 % (4-6) H 01/17/18 22:36 Lactic Acid 1.40 mmol/L (0.7-2.0) 01/24/18 15:08 Calcium 6.6 mg/dL (8.4-10.2) L 01/26/18 06:20 Total Bilirubin 1.10 mg/dL (0.1-1.2) 01/24/18 03:40 AST 52 units/L (5-40) H 01/24/18 03:40 ALT 235 units/L (7-56) H 01/24/18 03:40 Alkaline Phosphatase 105 units/L (35-129) 01/24/18 03:40 C-Reactive Protein 3.30 mg/dL (0.00-1.30) H 01/24/18 15:08 Total Protein 5.1 g/dL (6.3-8.2) L 01/24/18 03:40 Albumin 2.5 g/dL (3.9-5) L 01/24/18 03:40 Albumin/Globulin Ratio 1.0 % 01/24/18 03:40 Serotonin Release Assay See scanned report 01/20/18 11:03 Random Vancomycin 21.7 ug/mL (0-40.0) 01/26/18 06:20 ALISA Screen Negative (Negative) 01/20/18 Unknown Heparin-induced Plt Ab Negative (Negative) 01/20/18 11:03 UF Heparin High Dose 0 % Release 01/20/18 11:03 NEGRITA UFH Low Dose 0.1 0 % Release 01/20/18 11:03 NEGRITA UFH Low Dose 0.5 0 % Release 01/20/18 11:03 Hepatitis A IgM Ab Non-reactive (NonReactive) 01/20/18 07:00 Hep Bs Antigen Non-reactive (Negative) 01/20/18 07:00 Hep B Core IgM Ab Non-reactive (NonReactive) 01/20/18 07:00 Hepatitis C Antibody Non-reactive (NonReactive) 01/20/18 07:00 HIV 1&2 Antibody Rapid Non react (Non React) 01/20/18 Unknown HIV P24 Antigen Non react (Non React) 01/20/18 Unknown
[2018-01-26] MEDS ORDERED: KIONEX PO ONE ×2 (11:20→14:30)
--- NOTE | 2018-01-26 11:28 | Progress Note ---
Assessment and Plan Impression: * JANESSA-with ATN * VAP * Pl Effusion * Cardiomyopathy * Anemia * Sepsis * Drug abuse * DM type 2 * hyperkalemia Plan: * HD q MWF and prn * k noted, kayexalate today * low k bath with hd * monitory for renal recovery * strict i/os * avoid nephrotoxins * uf as tolerated with HD * daily lytes * ?thoracentesis * IV abx per primary team Subjective Date of service: 01/26/18 Principal diagnosis: Acute hypoxic respiratory failure, severe sepsis with shock , encephalopathy Interval history: resting well in bed today Objective - Exam Narrative Exam: HEENT: Oral mucosa moist no pallor or icterus, orally intubated Neck: Supple no JVD Chest: bilateral coarse breath sounds diminished at lung bases CVS: Regular rate and rhythm S1 and S2 heard Abdomen: Soft nontender no suprapubic masses no organomegaly appreciable Extremity: Dry skin less than 1+ peripheral edema Musculoskeletal: No joint effusion noted in knees and ankle Neurological: encephalopathic Dermatology: No petechial rashes Psychiatry: No evidence of any agitation and aggression noted - Vital Signs Vital signs: Vital Signs - 12hr 01/25/18 01/25/18 01/25/18 23:31 23:34 23:41 Temperature 97.4 F L Pulse Rate 72 73 Pulse Rate [ Anterior Bilateral Throughout] Pulse Rate [ From Monitor] Pulse Rate [ Left Dorsalis Pedis] Pulse Rate [ Right Dorsalis Pedis] Respiratory 14 15 Rate Respiratory Rate [Anterior Bilateral Throughout] Blood Pressure 94/52 94/52 O2 Sat by Pulse 100 100 Oximetry 01/25/18 01/26/18 01/26/18 23:51 00:00 00:01 Temperature Pulse Rate 73 75 75 Pulse Rate [ Anterior Bilateral Throughout] Pulse Rate [ 77 From Monitor] Pulse Rate [ 77 Left Dorsalis Pedis] Pulse Rate [ 77 Right Dorsalis Pedis] Respiratory 14 14 7 L Rate Respiratory Rate [Anterior Bilateral Throughout] Blood Pressure 94/52 86/45 83/43 O2 Sat by Pulse 100 100 100 Oximetry 01/26/18 01/26/18 01/26/18 00:11 00:12 00:21 Temperature Pulse Rate 70 74 74 Pulse Rate [ Anterior Bilateral Throughout] Pulse Rate [ From Monitor] Pulse Rate [ Left Dorsalis Pedis] Pulse Rate [ Right Dorsalis Pedis] Respiratory 14 15 Rate Respiratory Rate [Anterior Bilateral Throughout] Blood Pressure 93/43 85/41 93/43 O2 Sat by Pulse 100 100 Oximetry 01/26/18 01/26/18 01/26/18 00:31 00:36 00:41 Temperature Pulse Rate 68 71 71 Pulse Rate [ Anterior Bilateral Throughout] Pulse Rate [ From Monitor] Pulse Rate [ Left Dorsalis Pedis] Pulse Rate [ Right Dorsalis Pedis] Respiratory 14 16 Rate Respiratory Rate [Anterior Bilateral Throughout] Blood Pressure 93/43 93/43 93/43 O2 Sat by Pulse 100 100 100 Oximetry 01/26/18 01/26/18 01/26/18 00:51 01:00 01:11 Temperature Pulse Rate 73 70 69 Pulse Rate [ Anterior Bilateral Throughout] Pulse Rate [ From Monitor] Pulse Rate [ Left Dorsalis Pedis] Pulse Rate [ Right Dorsalis Pedis] Respiratory 13 14 16 Rate Respiratory Rate [Anterior Bilateral Throughout] Blood Pressure 93/43 92/49 92/49 O2 Sat by Pulse 100 100 100 Oximetry 01/26/18 01/26/18 01/26/18 01:21 01:31 01:41 Temperature Pulse Rate 70 68 70 Pulse Rate [ Anterior Bilateral Throughout] Pulse Rate [ From Monitor] Pulse Rate [ Left Dorsalis Pedis] Pulse Rate [ Right Dorsalis Pedis] Respiratory 13 13 14 Rate Respiratory Rate [Anterior Bilateral Throughout] Blood Pressure 92/49 92/49 92/49 O2 Sat by Pulse 100 100 100 Oximetry 01/26/18 01/26/18 01/26/18 01:51 02:00 02:11 Temperature Pulse Rate 70 70 66 Pulse Rate [ Anterior Bilateral Throughout] Pulse Rate [ 77 From Monitor] Pulse Rate [ 77 Left Dorsalis Pedis] Pulse Rate [ 77 Right Dorsalis Pedis] Respiratory 15 13 13 Rate Respiratory Rate [Anterior Bilateral Throughout] Blood Pressure 92/49 103/55 103/55 O2 Sat by Pulse 100 100 100 Oximetry 01/26/18 01/26/18 01/26/18 02:21 02:31 02:41 Temperature Pulse Rate 67 68 67 Pulse Rate [ Anterior Bilateral Throughout] Pulse Rate [ From Monitor] Pulse Rate [ Left Dorsalis Pedis] Pulse Rate [ Right Dorsalis Pedis] Respiratory 8 L 13 18 Rate Respiratory Rate [Anterior Bilateral Throughout] Blood Pressure 103/55 103/55 103/55 O2 Sat by Pulse 100 100 100 Oximetry 01/26/18 01/26/18 01/26/18 02:51 03:01 03:11 Temperature Pulse Rate 68 71 74 Pulse Rate [ Anterior Bilateral Throughout] Pulse Rate [ From Monitor] Pulse Rate [ Left Dorsalis Pedis] Pulse Rate [ Right Dorsalis Pedis] Respiratory 12 11 L 22 Rate Respiratory Rate [Anterior Bilateral Throughout] Blood Pressure 103/55 129/65 129/65 O2 Sat by Pulse 100 100 100 Oximetry 01/26/18 01/26/18 01/26/18 03:12 03:21 03:31 Temperature 98.8 F Pulse Rate 68 69 Pulse Rate [ Anterior Bilateral Throughout] Pulse Rate [ From Monitor] Pulse Rate [ Left Dorsalis Pedis] Pulse Rate [ Right Dorsalis Pedis] Respiratory 10 L 9 L Rate Respiratory Rate [Anterior Bilateral Throughout] Blood Pressure 129/65 129/65 O2 Sat by Pulse 100 Oximetry 01/26/18 01/26/18 01/26/18 03:41 03:51 03:54 Temperature Pulse Rate 87 88 87 Pulse Rate [ 75 Anterior Bilateral Throughout] Pulse Rate [ From Monitor] Pulse Rate [ Left Dorsalis Pedis] Pulse Rate [ Right Dorsalis Pedis] Respiratory 11 L 12 Rate Respiratory 13 Rate [Anterior Bilateral Throughout] Blood Pressure 129/65 129/65 129/65 O2 Sat by Pulse 100 Oximetry 01/26/18 01/26/18 01/26/18 04:00 04:01 04:11 Temperature Pulse Rate 83 84 Pulse Rate [ Anterior Bilateral Throughout] Pulse Rate [ 72 From Monitor] Pulse Rate [ 72 Left Dorsalis Pedis] Pulse Rate [ 72 Right Dorsalis Pedis] Respiratory 8 L 11 L 16 Rate Respiratory Rate [Anterior Bilateral Throughout] Blood Pressure 129/65 129/65 O2 Sat by Pulse Oximetry 01/26/18 01/26/18 01/26/18 04:21 04:31 04:41 Temperature Pulse Rate 86 68 86 Pulse Rate [ Anterior Bilateral Throughout] Pulse Rate [ From Monitor] Pulse Rate [ Left Dorsalis Pedis] Pulse Rate [ Right Dorsalis Pedis] Respiratory 14 10 L 17 Rate Respiratory Rate [Anterior Bilateral Throughout] Blood Pressure 124/58 124/58 124/58 O2 Sat by Pulse Oximetry 01/26/18 01/26/18 01/26/18 04:51 05:00 05:11 Temperature Pulse Rate 75 66 67 Pulse Rate [ Anterior Bilateral Throughout] Pulse Rate [ From Monitor] Pulse Rate [ Left Dorsalis Pedis] Pulse Rate [ Right Dorsalis Pedis] Respiratory 12 13 13 Rate Respiratory Rate [Anterior Bilateral Throughout] Blood Pressure 124/58 106/53 106/53 O2 Sat by Pulse Oximetry 01/26/18 01/26/18 01/26/18 05:21 05:31 05:41 Temperature Pulse Rate 71 74 70 Pulse Rate [ Anterior Bilateral Throughout] Pulse Rate [ From Monitor] Pulse Rate [ Left Dorsalis Pedis] Pulse Rate [ Right Dorsalis Pedis] Respiratory 14 13 11 L Rate Respiratory Rate [Anterior Bilateral Throughout] Blood Pressure 106/53 106/53 106/53 O2 Sat by Pulse Oximetry 01/26/18 01/26/18 01/26/18 05:51 06:00 06:11 Temperature Pulse Rate 76 67 89 Pulse Rate [ Anterior Bilateral Throughout] Pulse Rate [ From Monitor] Pulse Rate [ Left Dorsalis Pedis] Pulse Rate [ Right Dorsalis Pedis] Respiratory 14 11 L 20 Rate Respiratory Rate [Anterior Bilateral Throughout] Blood Pressure 106/53 116/51 116/51 O2 Sat by Pulse Oximetry 01/26/18 01/26/18 01/26/18 06:21 06:31 06:41 Temperature Pulse Rate 82 79 78 Pulse Rate [ Anterior Bilateral Throughout] Pulse Rate [ From Monitor] Pulse Rate [ Left Dorsalis Pedis] Pulse Rate [ Right Dorsalis Pedis] Respiratory 15 11 L 10 L Rate Respiratory Rate [Anterior Bilateral Throughout] Blood Pressure 116/51 116/51 116/51 O2 Sat by Pulse 84 96 97 Oximetry 01/26/18 01/26/18 01/26/18 06:49 06:51 07:01 Temperature Pulse Rate 76 73 Pulse Rate [ Anterior Bilateral Throughout] Pulse Rate [ From Monitor] Pulse Rate [ Left Dorsalis Pedis] Pulse Rate [ Right Dorsalis Pedis] Respiratory 13 12 Rate Respiratory Rate [Anterior Bilateral Throughout] Blood Pressure 106/53 116/51 87/46 O2 Sat by Pulse 98 98 Oximetry 01/26/18 01/26/18 01/26/18 07:11 07:21 07:31 Temperature Pulse Rate 69 68 68 Pulse Rate [ Anterior Bilateral Throughout] Pulse Rate [ From Monitor] Pulse Rate [ Left Dorsalis Pedis] Pulse Rate [ Right Dorsalis Pedis] Respiratory 15 14 14 Rate Respiratory Rate [Anterior Bilateral Throughout] Blood Pressure 87/46 75/41 83/49 O2 Sat by Pulse 98 99 100 Oximetry 01/26/18 01/26/18 01/26/18 07:41 07:51 07:55 Temperature Pulse Rate 68 66 65 Pulse Rate [ Anterior Bilateral Throughout] Pulse Rate [ From Monitor] Pulse Rate [ Left Dorsalis Pedis] Pulse Rate [ Right Dorsalis Pedis] Respiratory 14 14 14 Rate Respiratory Rate [Anterior Bilateral Throughout] Blood Pressure 72/38 83/38 83/38 O2 Sat by Pulse 100 99 99 Oximetry 01/26/18 01/26/18 01/26/18 07:58 08:00 08:06 Temperature 97.9 F Pulse Rate 76 Pulse Rate [ 68 73 Anterior Bilateral Throughout] Pulse Rate [ 83 From Monitor] Pulse Rate [ Left Dorsalis Pedis] Pulse Rate [ Right Dorsalis Pedis] Respiratory 14 Rate Respiratory 11 L 12 Rate [Anterior Bilateral Throughout] Blood Pressure 90/46 O2 Sat by Pulse 100 Oximetry 01/26/18 01/26/18 01/26/18 08:11 08:21 08:31 Temperature Pulse Rate 72 78 71 Pulse Rate [ Anterior Bilateral Throughout] Pulse Rate [ From Monitor] Pulse Rate [ Left Dorsalis Pedis] Pulse Rate [ Right Dorsalis Pedis] Respiratory 16 14 11 L Rate Respiratory Rate [Anterior Bilateral Throughout] Blood Pressure 90/46 90/46 90/46 O2 Sat by Pulse 100 100 100 Oximetry 01/26/18 01/26/18 01/26/18 08:41 08:51 09:00 Temperature Pulse Rate 74 84 81 Pulse Rate [ Anterior Bilateral Throughout] Pulse Rate [ From Monitor] Pulse Rate [ Left Dorsalis Pedis] Pulse Rate [ Right Dorsalis Pedis] Respiratory 12 11 L 11 L Rate Respiratory Rate [Anterior Bilateral Throughout] Blood Pressure 119/53 119/53 134/70 O2 Sat by Pulse 100 100 100 Oximetry 01/26/18 01/26/18 01/26/18 09:11 09:21 09:31 Temperature Pulse Rate 79 78 86 Pulse Rate [ Anterior Bilateral Throughout] Pulse Rate [ From Monitor] Pulse Rate [ Left Dorsalis Pedis] Pulse Rate [ Right Dorsalis Pedis] Respiratory 13 11 L 12 Rate Respiratory Rate [Anterior Bilateral Throughout] Blood Pressure 134/70 134/70 134/70 O2 Sat by Pulse 100 100 100 Oximetry 01/26/18 01/26/18 01/26/18 09:41 09:51 10:00 Temperature Pulse Rate 85 86 84 Pulse Rate [ Anterior Bilateral Throughout] Pulse Rate [ From Monitor] Pulse Rate [ Left Dorsalis Pedis] Pulse Rate [ Right Dorsalis Pedis] Respiratory 11 L 12 13 Rate Respiratory Rate [Anterior Bilateral Throughout] Blood Pressure 134/70 134/70 102/51 O2 Sat by Pulse 100 99 100 Oximetry 01/26/18 01/26/18 01/26/18 10:11 10:21 10:31 Temperature Pulse Rate 84 88 82 Pulse Rate [ Anterior Bilateral Throughout] Pulse Rate [ From Monitor] Pulse Rate [ Left Dorsalis Pedis] Pulse Rate [ Right Dorsalis Pedis] Respiratory 12 12 14 Rate Respiratory Rate [Anterior Bilateral Throughout] Blood Pressure 102/51 102/51 102/51 O2 Sat by Pulse 100 100 100 Oximetry 01/26/18 01/26/18 01/26/18 10:41 10:51 11:00 Temperature Pulse Rate 82 74 70 Pulse Rate [ Anterior Bilateral Throughout] Pulse Rate [ From Monitor] Pulse Rate [ Left Dorsalis Pedis] Pulse Rate [ Right Dorsalis Pedis] Respiratory 16 12 10 L Rate Respiratory Rate [Anterior Bilateral Throughout] Blood Pressure 102/51 102/51 107/52 O2 Sat by Pulse 100 100 100 Oximetry - Lab 01/26/18 06:20 01/26/18 06:20 Most recent lab results Calcium 6.6 mg/dL (8.4-10.2) L 01/26/18 06:20
--- NOTE | 2018-01-26 14:02 | Progress Note ---
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 Hyperkalemia History of cocaine abuse, Acute encephalopathy Lactic acidosis Thrombocytopenia - keep Peep at 8 for alveolar recruitment -Continue with mechanical ventilatory support - continue daily SBT's - Small effusion and clinically improving; will hold on thoracentesis acutely - Kayexalate given by nephrology re: K+ - advanced ETT to 23cm MARGOT - continue seroquel re: delirium - VAP bundle addressed - continue daily SATs - HD/UF per nephrology for toxin and volume clearance - continue VTE prophylaxis with eliquis (sent HIT assay); platelet count improving - trend CRP & lactate (Significantly improved) - continue steroid taper - continue stress ulcer prophylaxis - continue Empiric antibiotics, plan to de-escalate per ID recs - continue supplemental oxygen to wean for oxygen saturations >90% - Wean vasopressor support for MAP>65 - continue Lung protective strategies, ARDS-net protocol - continue other care per attending/other consultants ....remains critically ill on MVS and at high risk for further deterioration including ...35' CCT Subjective Date of service: 01/26/18 Principal diagnosis: Acute hypoxic respiratory failure, severe sepsis with shock , encephalopathy Interval history: Patient seen today for: Acute hypoxic respiratory failure, severe sepsis with shock, encephalopathy Seen and examined at bedside; 24-hour events reviewed; nursing and respiratory care staff consulted; no adverse overnight events reported to me; remains on MVS ; less agitated; tolerating SBT; responds appropriately; NAD Objective Vital Signs - 12hr 01/26/18 01/26/18 01/26/18 02:11 02:21 02:31 Temperature Pulse Rate 66 67 68 Pulse Rate [ Anterior Bilateral Throughout] Pulse Rate [ From Monitor] Pulse Rate [ Left Dorsalis Pedis] Pulse Rate [ Right Dorsalis Pedis] Respiratory 13 8 L 13 Rate Respiratory Rate [Anterior Bilateral Throughout] Blood Pressure 103/55 103/55 103/55 O2 Sat by Pulse 100 100 100 Oximetry 01/26/18 01/26/18 01/26/18 02:41 02:51 03:01 Temperature Pulse Rate 67 68 71 Pulse Rate [ Anterior Bilateral Throughout] Pulse Rate [ From Monitor] Pulse Rate [ Left Dorsalis Pedis] Pulse Rate [ Right Dorsalis Pedis] Respiratory 18 12 11 L Rate Respiratory Rate [Anterior Bilateral Throughout] Blood Pressure 103/55 103/55 129/65 O2 Sat by Pulse 100 100 100 Oximetry 01/26/18 01/26/18 01/26/18 03:11 03:12 03:21 Temperature 98.8 F Pulse Rate 74 68 Pulse Rate [ Anterior Bilateral Throughout] Pulse Rate [ From Monitor] Pulse Rate [ Left Dorsalis Pedis] Pulse Rate [ Right Dorsalis Pedis] Respiratory 22 10 L Rate Respiratory Rate [Anterior Bilateral Throughout] Blood Pressure 129/65 129/65 O2 Sat by Pulse 100 Oximetry 01/26/18 01/26/18 01/26/18 03:31 03:41 03:51 Temperature Pulse Rate 69 87 88 Pulse Rate [ Anterior Bilateral Throughout] Pulse Rate [ From Monitor] Pulse Rate [ Left Dorsalis Pedis] Pulse Rate [ Right Dorsalis Pedis] Respiratory 9 L 11 L 12 Rate Respiratory Rate [Anterior Bilateral Throughout] Blood Pressure 129/65 129/65 129/65 O2 Sat by Pulse 100 Oximetry 01/26/18 01/26/18 01/26/18 03:54 04:00 04:01 Temperature Pulse Rate 87 83 Pulse Rate [ 75 Anterior Bilateral Throughout] Pulse Rate [ 72 From Monitor] Pulse Rate [ 72 Left Dorsalis Pedis] Pulse Rate [ 72 Right Dorsalis Pedis] Respiratory 8 L 11 L Rate Respiratory 13 Rate [Anterior Bilateral Throughout] Blood Pressure 129/65 129/65 O2 Sat by Pulse 100 Oximetry 01/26/18 01/26/18 01/26/18 04:11 04:21 04:31 Temperature Pulse Rate 84 86 68 Pulse Rate [ Anterior Bilateral Throughout] Pulse Rate [ From Monitor] Pulse Rate [ Left Dorsalis Pedis] Pulse Rate [ Right Dorsalis Pedis] Respiratory 16 14 10 L Rate Respiratory Rate [Anterior Bilateral Throughout] Blood Pressure 129/65 124/58 124/58 O2 Sat by Pulse Oximetry 01/26/18 01/26/18 01/26/18 04:41 04:51 05:00 Temperature Pulse Rate 86 75 66 Pulse Rate [ Anterior Bilateral Throughout] Pulse Rate [ From Monitor] Pulse Rate [ Left Dorsalis Pedis] Pulse Rate [ Right Dorsalis Pedis] Respiratory 17 12 13 Rate Respiratory Rate [Anterior Bilateral Throughout] Blood Pressure 124/58 124/58 106/53 O2 Sat by Pulse Oximetry 01/26/18 01/26/18 01/26/18 05:11 05:21 05:31 Temperature Pulse Rate 67 71 74 Pulse Rate [ Anterior Bilateral Throughout] Pulse Rate [ From Monitor] Pulse Rate [ Left Dorsalis Pedis] Pulse Rate [ Right Dorsalis Pedis] Respiratory 13 14 13 Rate Respiratory Rate [Anterior Bilateral Throughout] Blood Pressure 106/53 106/53 106/53 O2 Sat by Pulse Oximetry 01/26/18 01/26/18 01/26/18 05:41 05:51 06:00 Temperature Pulse Rate 70 76 67 Pulse Rate [ Anterior Bilateral Throughout] Pulse Rate [ From Monitor] Pulse Rate [ Left Dorsalis Pedis] Pulse Rate [ Right Dorsalis Pedis] Respiratory 11 L 14 11 L Rate Respiratory Rate [Anterior Bilateral Throughout] Blood Pressure 106/53 106/53 116/51 O2 Sat by Pulse Oximetry 01/26/18 01/26/18 01/26/18 06:11 06:21 06:31 Temperature Pulse Rate 89 82 79 Pulse Rate [ Anterior Bilateral Throughout] Pulse Rate [ From Monitor] Pulse Rate [ Left Dorsalis Pedis] Pulse Rate [ Right Dorsalis Pedis] Respiratory 20 15 11 L Rate Respiratory Rate [Anterior Bilateral Throughout] Blood Pressure 116/51 116/51 116/51 O2 Sat by Pulse 84 96 Oximetry 01/26/18 01/26/18 01/26/18 06:41 06:49 06:51 Temperature Pulse Rate 78 76 Pulse Rate [ Anterior Bilateral Throughout] Pulse Rate [ From Monitor] Pulse Rate [ Left Dorsalis Pedis] Pulse Rate [ Right Dorsalis Pedis] Respiratory 10 L 13 Rate Respiratory Rate [Anterior Bilateral Throughout] Blood Pressure 116/51 106/53 116/51 O2 Sat by Pulse 97 98 Oximetry 01/26/18 01/26/18 01/26/18 07:01 07:11 07:21 Temperature Pulse Rate 73 69 68 Pulse Rate [ Anterior Bilateral Throughout] Pulse Rate [ From Monitor] Pulse Rate [ Left Dorsalis Pedis] Pulse Rate [ Right Dorsalis Pedis] Respiratory 12 15 14 Rate Respiratory Rate [Anterior Bilateral Throughout] Blood Pressure 87/46 87/46 75/41 O2 Sat by Pulse 98 98 99 Oximetry 01/26/18 01/26/18 01/26/18 07:31 07:41 07:51 Temperature Pulse Rate 68 68 66 Pulse Rate [ Anterior Bilateral Throughout] Pulse Rate [ From Monitor] Pulse Rate [ Left Dorsalis Pedis] Pulse Rate [ Right Dorsalis Pedis] Respiratory 14 14 14 Rate Respiratory Rate [Anterior Bilateral Throughout] Blood Pressure 83/49 72/38 83/38 O2 Sat by Pulse 100 100 99 Oximetry 01/26/18 01/26/18 01/26/18 07:55 07:58 08:00 Temperature 97.9 F Pulse Rate 65 76 Pulse Rate [ 68 Anterior Bilateral Throughout] Pulse Rate [ 83 From Monitor] Pulse Rate [ Left Dorsalis Pedis] Pulse Rate [ Right Dorsalis Pedis] Respiratory 14 14 Rate Respiratory 11 L Rate [Anterior Bilateral Throughout] Blood Pressure 83/38 90/46 O2 Sat by Pulse 99 100 Oximetry 01/26/18 01/26/18 01/26/18 08:06 08:11 08:21 Temperature Pulse Rate 72 78 Pulse Rate [ 73 Anterior Bilateral Throughout] Pulse Rate [ From Monitor] Pulse Rate [ Left Dorsalis Pedis] Pulse Rate [ Right Dorsalis Pedis] Respiratory 16 14 Rate Respiratory 12 Rate [Anterior Bilateral Throughout] Blood Pressure 90/46 90/46 O2 Sat by Pulse 100 100 Oximetry 01/26/18 01/26/18 01/26/18 08:31 08:41 08:51 Temperature Pulse Rate 71 74 84 Pulse Rate [ Anterior Bilateral Throughout] Pulse Rate [ From Monitor] Pulse Rate [ Left Dorsalis Pedis] Pulse Rate [ Right Dorsalis Pedis] Respiratory 11 L 12 11 L Rate Respiratory Rate [Anterior Bilateral Throughout] Blood Pressure 90/46 119/53 119/53 O2 Sat by Pulse 100 100 100 Oximetry 01/26/18 01/26/18 01/26/18 09:00 09:11 09:21 Temperature Pulse Rate 81 79 78 Pulse Rate [ Anterior Bilateral Throughout] Pulse Rate [ From Monitor] Pulse Rate [ Left Dorsalis Pedis] Pulse Rate [ Right Dorsalis Pedis] Respiratory 11 L 13 11 L Rate Respiratory Rate [Anterior Bilateral Throughout] Blood Pressure 134/70 134/70 134/70 O2 Sat by Pulse 100 100 100 Oximetry 01/26/18 01/26/18 01/26/18 09:31 09:41 09:51 Temperature Pulse Rate 86 85 86 Pulse Rate [ Anterior Bilateral Throughout] Pulse Rate [ From Monitor] Pulse Rate [ Left Dorsalis Pedis] Pulse Rate [ Right Dorsalis Pedis] Respiratory 12 11 L 12 Rate Respiratory Rate [Anterior Bilateral Throughout] Blood Pressure 134/70 134/70 134/70 O2 Sat by Pulse 100 100 99 Oximetry 01/26/18 01/26/18 01/26/18 10:00 10:11 10:21 Temperature Pulse Rate 84 84 88 Pulse Rate [ Anterior Bilateral Throughout] Pulse Rate [ From Monitor] Pulse Rate [ Left Dorsalis Pedis] Pulse Rate [ Right Dorsalis Pedis] Respiratory 13 12 12 Rate Respiratory Rate [Anterior Bilateral Throughout] Blood Pressure 102/51 102/51 102/51 O2 Sat by Pulse 100 100 100 Oximetry 01/26/18 01/26/18 01/26/18 10:31 10:41 10:51 Temperature Pulse Rate 82 82 74 Pulse Rate [ Anterior Bilateral Throughout] Pulse Rate [ From Monitor] Pulse Rate [ Left Dorsalis Pedis] Pulse Rate [ Right Dorsalis Pedis] Respiratory 14 16 12 Rate Respiratory Rate [Anterior Bilateral Throughout] Blood Pressure 102/51 102/51 102/51 O2 Sat by Pulse 100 100 100 Oximetry 01/26/18 01/26/18 01/26/18 11:00 11:10 11:21 Temperature Pulse Rate 70 80 80 Pulse Rate [ Anterior Bilateral Throughout] Pulse Rate [ From Monitor] Pulse Rate [ Left Dorsalis Pedis] Pulse Rate [ Right Dorsalis Pedis] Respiratory 10 L 9 L 8 L Rate Respiratory Rate [Anterior Bilateral Throughout] Blood Pressure 107/52 107/52 102/51 O2 Sat by Pulse 100 100 100 Oximetry 01/26/18 01/26/18 01/26/18 11:31 11:36 11:41 Temperature Pulse Rate 70 82 78 Pulse Rate [ Anterior Bilateral Throughout] Pulse Rate [ From Monitor] Pulse Rate [ Left Dorsalis Pedis] Pulse Rate [ Right Dorsalis Pedis] Respiratory 13 13 10 L Rate Respiratory Rate [Anterior Bilateral Throughout] Blood Pressure 107/52 107/52 107/52 O2 Sat by Pulse 100 100 100 Oximetry 01/26/18 01/26/18 01/26/18 11:51 12:00 12:02 Temperature 97.6 F Pulse Rate 82 81 Pulse Rate [ Anterior Bilateral Throughout] Pulse Rate [ From Monitor] Pulse Rate [ Left Dorsalis Pedis] Pulse Rate [ Right Dorsalis Pedis] Respiratory 12 11 L Rate Respiratory Rate [Anterior Bilateral Throughout] Blood Pressure 107/52 109/64 O2 Sat by Pulse 100 100 Oximetry 01/26/18 01/26/18 01/26/18 12:11 12:21 12:31 Temperature Pulse Rate 84 79 81 Pulse Rate [ Anterior Bilateral Throughout] Pulse Rate [ From Monitor] Pulse Rate [ Left Dorsalis Pedis] Pulse Rate [ Right Dorsalis Pedis] Respiratory 13 12 9 L Rate Respiratory Rate [Anterior Bilateral Throughout] Blood Pressure 109/64 109/64 109/64 O2 Sat by Pulse 100 100 100 Oximetry 01/26/18 01/26/18 01/26/18 12:41 12:51 13:00 Temperature Pulse Rate 72 81 77 Pulse Rate [ Anterior Bilateral Throughout] Pulse Rate [ From Monitor] Pulse Rate [ Left Dorsalis Pedis] Pulse Rate [ Right Dorsalis Pedis] Respiratory 11 L 8 L 12 Rate Respiratory Rate [Anterior Bilateral Throughout] Blood Pressure 109/64 109/64 109/65 O2 Sat by Pulse 100 100 100 Oximetry 01/26/18 01/26/18 01/26/18 13:11 13:21 13:31 Temperature Pulse Rate 76 85 81 Pulse Rate [ Anterior Bilateral Throughout] Pulse Rate [ From Monitor] Pulse Rate [ Left Dorsalis Pedis] Pulse Rate [ Right Dorsalis Pedis] Respiratory 13 13 13 Rate Respiratory Rate [Anterior Bilateral Throughout] Blood Pressure 109/65 109/65 109/65 O2 Sat by Pulse 100 100 100 Oximetry 01/26/18 13:49 Temperature Pulse Rate 85 Pulse Rate [ Anterior Bilateral Throughout] Pulse Rate [ From Monitor] Pulse Rate [ Left Dorsalis Pedis] Pulse Rate [ Right Dorsalis Pedis] Respiratory Rate Respiratory Rate [Anterior Bilateral Throughout] Blood Pressure 109/65 O2 Sat by Pulse Oximetry Constitutional: no acute distress Eyes: non-icteric ENT: oropharynx moist, other (ETT 20 cm MARGOT and advanced to 23cm MARGOT) Neck: supple, no lymphadenopathy, no JVD Effort: mildly labored Ascultation: Bilateral: diminished breath sounds, rales Percussion: Bilateral: not dull Cardiovascular: regular rate and rhythm, other (no rubs or murmurs) Gastrointestinal: normoactive bowel sounds, soft, non-tender, non-distended, other (no [place] HSM) Integumentary: normal Extremities: no cyanosis, no edema, pink and warm, pulses normal Neurologic: non-focal exam (grossly), pupils equal and round, CN II-XII normal, motor strength normal and Psychiatric: other (calm) CBC and BMP: 01/26/18 06:20 01/26/18 06:20 ABG, PT/INR, D-dimer: ABG POC ABG pH 7.380 (7.35-7.45) 01/26/18 04:13 POC ABG pCO2 40.9 (35-45) 01/26/18 04:13 POC ABG pO2 70 (80-105) L 01/26/18 04:13 POC ABG HCO3 24.2 01/26/18 04:13 POC ABG Total CO2 25 01/26/18 04:13 POC ABG O2 Sat 94 01/26/18 04:13 PT/INR, D-dimer PT 17.5 Sec. (12.2-14.9) H 01/20/18 07:00 INR 1.35 (0.87-1.13) H 01/20/18 07:00 Abnormal lab findings: Abnormal Labs 01/17/18 01/17/18 01/17/18 15:25 16:15 16:48 WBC MCH Plt Count Seg Neuts % (Manual) Lymphocytes % (Manual) Monocytes % (Manual) Nucleated RBC % Seg Neutrophils # Man Lymphocytes # (Manual) Monocytes # (Manual) PT INR POC ABG pH 7.099 L POC ABG pCO2 58.9 H POC ABG pO2 149 H VBG pH Sodium Potassium Chloride Carbon Dioxide BUN Creatinine Glucose POC Glucose < 40 L 121 H Hemoglobin A1c Lactic Acid Calcium Total Bilirubin AST ALT Alkaline Phosphatase C-Reactive Protein Total Protein Albumin 01/17/18 01/17/18 01/17/18 16:54 16:54 16:54 WBC MCH Plt Count Seg Neuts % (Manual) 72.0 H Lymphocytes % (Manual) 3.0 L Monocytes % (Manual) Nucleated RBC % Seg Neutrophils # Man Lymphocytes # (Manual) 0.2 L Monocytes # (Manual) PT 18.5 H INR 1.45 H POC ABG pH POC ABG pCO2 POC ABG pO2 VBG pH Sodium 136 L Potassium Chloride 97.8 L Carbon Dioxide 16 L BUN 43 H Creatinine 3.3 H Glucose 121 H POC Glucose Hemoglobin A1c Lactic Acid Calcium 6.7 L Total Bilirubin AST ALT Alkaline Phosphatase C-Reactive Protein Total Protein 4.4 L Albumin 2.3 L 01/17/18 01/17/18 01/17/18 16:54 16:54 17:11 WBC MCH Plt Count Seg Neuts % (Manual) Lymphocytes % (Manual) Monocytes % (Manual) Nucleated RBC % Seg Neutrophils # Man Lymphocytes # (Manual) Monocytes # (Manual) PT INR POC ABG pH POC ABG pCO2 POC ABG pO2 VBG pH 7.273 L Sodium Potassium Chloride Carbon Dioxide BUN Creatinine Glucose POC Glucose Hemoglobin A1c Lactic Acid 4.70 H* 4.30 H* Calcium Total Bilirubin AST ALT Alkaline Phosphatase C-Reactive Protein Total Protein Albumin 01/17/18 01/17/18 01/17/18 18:02 18:15 19:21 WBC MCH Plt Count Seg Neuts % (Manual) Lymphocytes % (Manual) Monocytes % (Manual) Nucleated RBC % Seg Neutrophils # Man Lymphocytes # (Manual) Monocytes # (Manual) PT INR POC ABG pH 7.177 L POC ABG pCO2 POC ABG pO2 VBG pH Sodium Potassium Chloride Carbon Dioxide BUN Creatinine Glucose POC Glucose < 40 L Hemoglobin A1c Lactic Acid 3.00 H* Calcium Total Bilirubin AST ALT Alkaline Phosphatase C-Reactive Protein Total Protein Albumin 01/17/18 01/17/18 01/17/18 22:36 22:36 23:16 WBC MCH Plt Count Seg Neuts % (Manual) Lymphocytes % (Manual) Monocytes % (Manual) Nucleated RBC % Seg Neutrophils # Man Lymphocytes # (Manual) Monocytes # (Manual) PT INR POC ABG pH 7.112 L POC ABG pCO2 50.1 H POC ABG pO2 50 L VBG pH Sodium Potassium Chloride Carbon Dioxide BUN Creatinine Glucose POC Glucose Hemoglobin A1c 9.0 H Lactic Acid 5.50 H* Calcium Total Bilirubin AST ALT Alkaline Phosphatase C-Reactive Protein Total Protein Albumin 01/18/18 01/18/18 01/18/18 01:26 03:21 03:21 WBC MCH Plt Count Seg Neuts % (Manual) 27.0 L Lymphocytes % (Manual) 3.0 L Monocytes % (Manual) 14.0 H Nucleated RBC % Seg Neutrophils # Man Lymphocytes # (Manual) 0.3 L Monocytes # (Manual) 1.4 H PT INR POC ABG pH POC ABG pCO2 POC ABG pO2 VBG pH Sodium Potassium Chloride Carbon Dioxide BUN Creatinine Glucose POC Glucose 107 H Hemoglobin A1c Lactic Acid 8.00 H* Calcium Total Bilirubin AST ALT Alkaline Phosphatase C-Reactive Protein Total Protein Albumin 01/18/18 01/18/18 01/18/18 03:21 04:40 05:07 WBC MCH Plt Count Seg Neuts % (Manual) Lymphocytes % (Manual) Monocytes % (Manual) Nucleated RBC % Seg Neutrophils # Man Lymphocytes # (Manual) Monocytes # (Manual) PT INR POC ABG pH 7.093 L POC ABG pCO2 31.5 L POC ABG pO2 77 L VBG pH Sodium Potassium Chloride 96.9 L Carbon Dioxide 14 L BUN 47 H Creatinine 3.4 H Glucose POC Glucose Hemoglobin A1c Lactic Acid 11.10 H* Calcium 6.4 L Total Bilirubin AST 47 H ALT Alkaline Phosphatase C-Reactive Protein Total Protein 4.3 L Albumin 2.4 L 01/18/18 01/18/18 01/18/18 06:29 07:06 11:44 WBC MCH Plt Count Seg Neuts % (Manual) Lymphocytes % (Manual) Monocytes % (Manual) Nucleated RBC % Seg Neutrophils # Man Lymphocytes # (Manual) Monocytes # (Manual) PT INR POC ABG pH POC ABG pCO2 POC ABG pO2 VBG pH Sodium Potassium Chloride Carbon Dioxide BUN Creatinine Glucose POC Glucose 47 L 149 H < 40 L Hemoglobin A1c Lactic Acid Calcium Total Bilirubin AST ALT Alkaline Phosphatase C-Reactive Protein Total Protein Albumin 01/18/18 01/18/18 01/18/18 11:46 14:15 18:01 WBC MCH Plt Count Seg Neuts % (Manual) Lymphocytes % (Manual) Monocytes % (Manual) Nucleated RBC % Seg Neutrophils # Man Lymphocytes # (Manual) Monocytes # (Manual) PT INR POC ABG pH POC ABG pCO2 POC ABG pO2 VBG pH Sodium Potassium Chloride Carbon Dioxide BUN Creatinine Glucose POC Glucose 116 H < 40 L Hemoglobin A1c Lactic Acid 10.00 H* Calcium Total Bilirubin AST ALT Alkaline Phosphatase C-Reactive Protein Total Protein Albumin 01/18/18 01/18/18 01/18/18 18:02 23:25 23:27 WBC MCH Plt Count Seg Neuts % (Manual) Lymphocytes % (Manual) Monocytes % (Manual) Nucleated RBC % Seg Neutrophils # Man Lymphocytes # (Manual) Monocytes # (Manual) PT INR POC ABG pH POC ABG pCO2 POC ABG pO2 VBG pH Sodium Potassium Chloride Carbon Dioxide BUN Creatinine Glucose POC Glucose 136 H < 40 L < 40 L Hemoglobin A1c Lactic Acid Calcium Total Bilirubin AST ALT Alkaline Phosphatase C-Reactive Protein Total Protein Albumin 01/19/18 01/19/18 01/19/18 04:02 06:50 06:50 WBC 18.5 H MCH Plt Count 136 L Seg Neuts % (Manual) 86.0 H Lymphocytes % (Manual) 4.0 L Monocytes % (Manual) Nucleated RBC % Seg Neutrophils # Man 15.9 H Lymphocytes # (Manual) 0.7 L Monocytes # (Manual) 1.1 H PT 21.3 H INR 1.73 H POC ABG pH POC ABG pCO2 28.3 L POC ABG pO2 57 L VBG pH Sodium Potassium Chloride Carbon Dioxide BUN Creatinine Glucose POC Glucose Hemoglobin A1c Lactic Acid Calcium Total Bilirubin AST ALT Alkaline Phosphatase C-Reactive Protein Total Protein Albumin 01/19/18 01/19/18 01/19/18 06:50 08:45 11:17 WBC MCH Plt Count Seg Neuts % (Manual) Lymphocytes % (Manual) Monocytes % (Manual) Nucleated RBC % Seg Neutrophils # Man Lymphocytes # (Manual) Monocytes # (Manual) PT INR POC ABG pH POC ABG pCO2 POC ABG pO2 VBG pH Sodium 135 L Potassium Chloride 92.8 L Carbon Dioxide 19 L BUN 31 H Creatinine 2.6 H Glucose POC Glucose 110 H Hemoglobin A1c Lactic Acid 7.90 H* Calcium 7.1 L Total Bilirubin 1.60 H AST 2526 H ALT 1187 H Alkaline Phosphatase 133 H C-Reactive Protein Total Protein 4.8 L Albumin 2.0 L 01/19/18 01/19/18 01/19/18 11:31 22:12 23:34 WBC MCH Plt Count Seg Neuts % (Manual) Lymphocytes % (Manual) Monocytes % (Manual) Nucleated RBC % Seg Neutrophils # Man Lymphocytes # (Manual) Monocytes # (Manual) PT INR POC ABG pH POC ABG pCO2 31.6 L POC ABG pO2 59 L VBG pH Sodium Potassium Chloride Carbon Dioxide BUN Creatinine Glucose POC Glucose 131 H 53 L Hemoglobin A1c Lactic Acid Calcium Total Bilirubin AST ALT Alkaline Phosphatase C-Reactive Protein Total Protein Albumin 01/20/18 01/20/18 01/20/18 05:18 05:18 05:19 WBC 19.7 H MCH 27 L Plt Count 84 L Seg Neuts % (Manual) 84.0 H Lymphocytes % (Manual) 2.0 L Monocytes % (Manual) 8.0 H Nucleated RBC % Seg Neutrophils # Man 16.5 H Lymphocytes # (Manual) 0.4 L Monocytes # (Manual) 1.6 H PT INR POC ABG pH POC ABG pCO2 POC ABG pO2 VBG pH Sodium 136 L Potassium Chloride 96.9 L Carbon Dioxide 17 L BUN 65 H Creatinine 4.1 H D Glucose 104 H POC Glucose 125 H Hemoglobin A1c Lactic Acid Calcium 7.1 L Total Bilirubin 1.60 H AST 1702 H ALT 1141 H Alkaline Phosphatase 172 H C-Reactive Protein Total Protein 5.0 L Albumin 1.7 L 01/20/18 01/20/18 01/20/18 07:00 11:48 13:54 WBC MCH Plt Count Seg Neuts % (Manual) Lymphocytes % (Manual) Monocytes % (Manual) Nucleated RBC % Seg Neutrophils # Man Lymphocytes # (Manual) Monocytes # (Manual) PT 17.5 H INR 1.35 H POC ABG pH POC ABG pCO2 POC ABG pO2 VBG pH Sodium Potassium Chloride Carbon Dioxide BUN Creatinine Glucose POC Glucose 109 H Hemoglobin A1c Lactic Acid Calcium Total Bilirubin AST ALT Alkaline Phosphatase C-Reactive Protein 37.50 H Total Protein Albumin 01/20/18 01/20/18 01/20/18 17:28 17:51 20:50 WBC MCH Plt Count Seg Neuts % (Manual) Lymphocytes % (Manual) Monocytes % (Manual) Nucleated RBC % Seg Neutrophils # Man Lymphocytes # (Manual) Monocytes # (Manual) PT INR POC ABG pH POC ABG pCO2 POC ABG pO2 VBG pH Sodium Potassium Chloride Carbon Dioxide BUN Creatinine Glucose POC Glucose 140 H Hemoglobin A1c Lactic Acid 2.70 H* 2.30 H* Calcium Total Bilirubin AST ALT Alkaline Phosphatase C-Reactive Protein Total Protein Albumin 01/20/18 01/20/18 01/21/18 23:55 Unknown 00:12 WBC MCH Plt Count Seg Neuts % (Manual) Lymphocytes % (Manual) Monocytes % (Manual) Nucleated RBC % Seg Neutrophils # Man Lymphocytes # (Manual) Monocytes # (Manual) PT INR POC ABG pH POC ABG pCO2 POC ABG pO2 VBG pH Sodium Potassium Chloride Carbon Dioxide BUN Creatinine Glucose POC Glucose 149 H 134 H Hemoglobin A1c Lactic Acid 2.50 H* Calcium Total Bilirubin AST ALT Alkaline Phosphatase C-Reactive Protein Total Protein Albumin 01/21/18 01/21/18 01/21/18 04:27 05:00 05:00 WBC 21.7 H MCH 27 L Plt Count 67 L Seg Neuts % (Manual) 71.0 H Lymphocytes % (Manual) 9.0 L Monocytes % (Manual) Nucleated RBC % 4.0 H Seg Neutrophils # Man 15.4 H Lymphocytes # (Manual) Monocytes # (Manual) PT INR POC ABG pH POC ABG pCO2 33.8 L POC ABG pO2 72 L VBG pH Sodium Potassium Chloride Carbon Dioxide 21 L BUN 71 H Creatinine 4.1 H Glucose 149 H POC Glucose Hemoglobin A1c Lactic Acid Calcium 7.5 L Total Bilirubin AST 494 H ALT 780 H Alkaline Phosphatase 151 H C-Reactive Protein Total Protein 4.9 L Albumin 1.9 L 01/21/18 01/21/18 01/21/18 05:00 05:18 12:20 WBC MCH Plt Count Seg Neuts % (Manual) Lymphocytes % (Manual) Monocytes % (Manual) Nucleated RBC % Seg Neutrophils # Man Lymphocytes # (Manual) Monocytes # (Manual) PT INR POC ABG pH POC ABG pCO2 POC ABG pO2 VBG pH Sodium Potassium Chloride Carbon Dioxide BUN Creatinine Glucose POC Glucose 132 H 158 H Hemoglobin A1c Lactic Acid 2.10 H* Calcium Total Bilirubin AST ALT Alkaline Phosphatase C-Reactive Protein Total Protein Albumin 01/21/18 01/21/18 01/22/18 18:07 23:40 03:48 WBC MCH Plt Count Seg Neuts % (Manual) Lymphocytes % (Manual) Monocytes % (Manual) Nucleated RBC % Seg Neutrophils # Man Lymphocytes # (Manual) Monocytes # (Manual) PT INR POC ABG pH POC ABG pCO2 POC ABG pO2 65 L VBG pH Sodium Potassium Chloride Carbon Dioxide BUN Creatinine Glucose POC Glucose 143 H 136 H Hemoglobin A1c Lactic Acid Calcium Total Bilirubin AST ALT Alkaline Phosphatase C-Reactive Protein Total Protein Albumin 01/22/18 01/22/18 01/22/18 04:10 04:10 05:56 WBC 24.9 H MCH 27 L Plt Count 80 L Seg Neuts % (Manual) Lymphocytes % (Manual) Monocytes % (Manual) Nucleated RBC % Seg Neutrophils # Man Lymphocytes # (Manual) Monocytes # (Manual) PT INR POC ABG pH POC ABG pCO2 POC ABG pO2 VBG pH Sodium Potassium Chloride 97.7 L Carbon Dioxide BUN 72 H Creatinine 3.6 H Glucose 145 H POC Glucose 139 H Hemoglobin A1c Lactic Acid Calcium 7.3 L Total Bilirubin AST 146 H ALT 547 H Alkaline Phosphatase C-Reactive Protein Total Protein 5.2 L Albumin 2.3 L 01/22/18 01/22/18 01/23/18 11:30 17:41 00:00 WBC MCH Plt Count Seg Neuts % (Manual) Lymphocytes % (Manual) Monocytes % (Manual) Nucleated RBC % Seg Neutrophils # Man Lymphocytes # (Manual) Monocytes # (Manual) PT INR POC ABG pH POC ABG pCO2 POC ABG pO2 VBG pH Sodium Potassium Chloride Carbon Dioxide BUN Creatinine Glucose POC Glucose 156 H 185 H 150 H Hemoglobin A1c Lactic Acid Calcium Total Bilirubin AST ALT Alkaline Phosphatase C-Reactive Protein Total Protein Albumin 01/23/18 01/23/18 01/23/18 04:39 05:24 11:38 WBC MCH Plt Count Seg Neuts % (Manual) Lymphocytes % (Manual) Monocytes % (Manual) Nucleated RBC % Seg Neutrophils # Man Lymphocytes # (Manual) Monocytes # (Manual) PT INR POC ABG pH POC ABG pCO2 31.9 L POC ABG pO2 62 L VBG pH Sodium Potassium Chloride Carbon Dioxide BUN Creatinine Glucose POC Glucose 215 H 182 H Hemoglobin A1c Lactic Acid Calcium Total Bilirubin AST ALT Alkaline Phosphatase C-Reactive Protein Total Protein Albumin 01/23/18 01/23/18 01/24/18 14:20 17:26 00:10 WBC MCH Plt Count Seg Neuts % (Manual) Lymphocytes % (Manual) Monocytes % (Manual) Nucleated RBC % Seg Neutrophils # Man Lymphocytes # (Manual) Monocytes # (Manual) PT INR POC ABG pH POC ABG pCO2 31.4 L POC ABG pO2 55 L VBG pH Sodium Potassium Chloride Carbon Dioxide BUN Creatinine Glucose POC Glucose 252 H 225 H Hemoglobin A1c Lactic Acid Calcium Total Bilirubin AST ALT Alkaline Phosphatase C-Reactive Protein Total Protein Albumin 01/24/18 01/24/18 01/24/18 03:40 03:40 06:06 WBC 34.5 H MCH 27 L Plt Count 130 L Seg Neuts % (Manual) Lymphocytes % (Manual) Monocytes % (Manual) Nucleated RBC % Seg Neutrophils # Man Lymphocytes # (Manual) Monocytes # (Manual) PT INR POC ABG pH POC ABG pCO2 POC ABG pO2 VBG pH Sodium Potassium 5.7 H D Chloride 95.6 L Carbon Dioxide 20 L BUN 96 H Creatinine 4.2 H Glucose 166 H POC Glucose 162 H Hemoglobin A1c Lactic Acid Calcium 7.3 L Total Bilirubin AST 52 H ALT 235 H Alkaline Phosphatase C-Reactive Protein Total Protein 5.1 L Albumin 2.5 L 01/24/18 01/24/18 01/24/18 11:36 15:08 17:32 WBC MCH Plt Count Seg Neuts % (Manual) Lymphocytes % (Manual) Monocytes % (Manual) Nucleated RBC % Seg Neutrophils # Man Lymphocytes # (Manual) Monocytes # (Manual) PT INR POC ABG pH POC ABG pCO2 POC ABG pO2 VBG pH Sodium Potassium Chloride Carbon Dioxide BUN Creatinine Glucose POC Glucose 160 H 160 H Hemoglobin A1c Lactic Acid Calcium Total Bilirubin AST ALT Alkaline Phosphatase C-Reactive Protein 3.30 H Total Protein Albumin 01/25/18 01/25/18 01/25/18 00:04 04:34 05:25 WBC MCH Plt Count Seg Neuts % (Manual) Lymphocytes % (Manual) Monocytes % (Manual) Nucleated RBC % Seg Neutrophils # Man Lymphocytes # (Manual) Monocytes # (Manual) PT INR POC ABG pH 7.342 L POC ABG pCO2 48.7 H POC ABG pO2 VBG pH Sodium Potassium Chloride Carbon Dioxide BUN Creatinine Glucose POC Glucose 169 H 133 H Hemoglobin A1c Lactic Acid Calcium Total Bilirubin AST ALT Alkaline Phosphatase C-Reactive Protein Total Protein Albumin 01/25/18 01/25/18 01/25/18 11:46 17:42 23:50 WBC MCH Plt Count Seg Neuts % (Manual) Lymphocytes % (Manual) Monocytes % (Manual) Nucleated RBC % Seg Neutrophils # Man Lymphocytes # (Manual) Monocytes # (Manual) PT INR POC ABG pH POC ABG pCO2 POC ABG pO2 VBG pH Sodium Potassium Chloride Carbon Dioxide BUN Creatinine Glucose POC Glucose 121 H 150 H 149 H Hemoglobin A1c Lactic Acid Calcium Total Bilirubin AST ALT Alkaline Phosphatase C-Reactive Protein Total Protein Albumin 01/26/18 01/26/18 01/26/18 04:13 05:25 06:20 WBC 21.0 H MCH Plt Count Seg Neuts % (Manual) 95.0 H Lymphocytes % (Manual) 1.0 L Monocytes % (Manual) Nucleated RBC % Seg Neutrophils # Man 20.0 H Lymphocytes # (Manual) 0.2 L Monocytes # (Manual) PT INR POC ABG pH POC ABG pCO2 POC ABG pO2 70 L VBG pH Sodium Potassium Chloride Carbon Dioxide BUN Creatinine Glucose POC Glucose 107 H Hemoglobin A1c Lactic Acid Calcium Total Bilirubin AST ALT Alkaline Phosphatase C-Reactive Protein Total Protein Albumin 01/26/18 01/26/18 06:20 12:19 WBC MCH Plt Count Seg Neuts % (Manual) Lymphocytes % (Manual) Monocytes % (Manual) Nucleated RBC % Seg Neutrophils # Man Lymphocytes # (Manual) Monocytes # (Manual) PT INR POC ABG pH POC ABG pCO2 POC ABG pO2 VBG pH Sodium Potassium 5.9 H Chloride 95.7 L Carbon Dioxide BUN 102 H Creatinine 4.6 H Glucose POC Glucose 151 H Hemoglobin A1c Lactic Acid Calcium 6.6 L Total Bilirubin AST ALT Alkaline Phosphatase C-Reactive Protein Total Protein Albumin Chest x-ray: image reviewed (mild improvement in LLL atelectasis) Allied health notes reviewed: nursing
--- NOTE | 2018-01-26 15:30 | XRay Report ---
FINAL REPORT EXAM: XR CHEST 1V AP HISTORY: Resp Failure; LLL Atelectasis vs effusion TECHNIQUE: AP portable view of the chest PRIORS: CXR 01/25/2018 FINDINGS: Lines, tubes, and devices: Endotracheal tube, nasogastric tube, and right jugular catheter are unchanged and in satisfactory position. Right subclavian dual lead pacemaker is again noted. Lungs and pleura: Trachea is normal in position. There is haziness in the left base consistent with pleural effusion tracking posteriorly. Mild right hemidiaphragm elevation is again noted Cardiomediastinal silhouette: Cardiac silhouette is mildly prominent but stable. Calcification of the aorta is stable. Other: Bony structures are intact. IMPRESSION: Left pleural effusion. Stable cardiomegaly.
[2018-01-26] MEDS: DILAUDID IV PRN (21:37)
[2018-01-27] MEDS: LOPRESSOR IV SCH ×4 (00:45→17:02)
[2018-01-27] MEDS ORDERED: HumaLOG SUB-Q ONE (00:54)
[2018-01-27] MEDS: HumaLOG SUB-Q SCH ×4 (00:54→17:43)
[2018-01-27] MEDS: FLAGYL 500 MG/100 ML 500 MG/100 ML BAG IV SCH ×3 (02:18→17:07)
[2018-01-27] MEDS: DILAUDID IV PRN ×2 (03:09→18:24)
[2018-01-27] MEDS: DUONEB *Not for PRN Use IH SCH ×4 (04:25→19:45)
[2018-01-27 05:41] LABS: Hematocrit 32.3 % (30.3-42.9); Hemoglobin 10.2 gm/dl (10.1-14.3); Mean Corpuscular HGB Conc 31 % (30-34); Mean Corpuscular Hemoglobin 27 pg (28-32); Mean Corpuscular Volume 86 fl (79-97); Platelet Count 262 K/mm3 (140-440); Red Blood Count 3.78 M/mm3 (3.65-5.03)
[2018-01-27 06:10] LABS: Calcium 6.1 mg/dL (8.4-10.2)
[2018-01-27 06:20] LABS: Basophils % (Manual) 0 % (0.0-1.8); Eosinophils % (Manual) 0 % (0.0-4.3); Giant Platelets Rare; Myelocytes # (Manual) 0.2 K/mm3; Total Cells Counted 100
[2018-01-27 06:21] LABS: Platelet Estimate Consistent w Auto
[2018-01-27] MEDS: PEPCID PO SCH (09:02)
[2018-01-27] MEDS: SODIUM CHLORIDE FLUSH SYRINGE 10 ML IV SCH (09:02)
[2018-01-27] MEDS: DELTASONE PO SCH (09:02)
[2018-01-27] MEDS: ELIQUIS FEEDTUBE SCH (09:02)
--- NOTE | 2018-01-27 09:39 | Progress Note ---
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 History of cocaine abuse, Acute encephalopathy Lactic acidosis Fevers..cultures pending Thrombocytopenia Pleural efffusion -Continue with mechanical ventilatory support - continue daily SBT's - Small effusion and clinically improving - continue seroquel re: delirium - VAP bundle addressed - continue daily SATs - HD/UF per nephrology for toxin and volume clearance - continue VTE prophylaxis - continue steroid taper - continue stress ulcer prophylaxis - continue Empiric antibiotics, plan to de-escalate per ID recs - continue supplemental oxygen to wean for oxygen saturations >90% - continue Lung protective strategies, ARDS-net protocol - continue other care per attending/other consultants -follow up CXR today to evaluate pleural effusion ....remains critically ill on MVS and at high risk for further deterioration including ...35' CCT -Daughter updated Subjective Date of service: 01/27/18 Principal diagnosis: Acute hypoxic respiratory failure, severe sepsis with shock , encephalopathy Interval history: Patient seen today for: Seen and examined at bedside; 24-hour events reviewed; nursing and respiratory care staff consulted; no adverse overnight events reported to me; Reamins afebrile S/pHD ..femoral HD, getting HD Fentanyl infusion is off. Off vasopressors Objective - Exam Narrative Exam: HEENT: Oral mucosa moist no pallor or icterus, orally intubated Neck: Supple no JVD Chest: bilateral coarse breath sounds diminished at lung bases CVS: Regular rate and rhythm S1 and S2 heard Abdomen: Soft nontender no suprapubic masses no organomegaly appreciable Extremity: Dry skin less than 1+ peripheral edema Musculoskeletal: No joint effusion noted in knees and ankle Neurological: encephalopathic Dermatology: No petechial rashes Psychiatry: No evidence of any agitation and aggression noted Vital Signs - 12hr 01/26/18 01/26/18 01/26/18 21:41 21:50 22:00 Temperature Pulse Rate 96 H 92 H 67 Pulse Rate [ Anterior Bilateral Throughout] Pulse Rate [ From Monitor] Respiratory 20 18 20 Rate Respiratory Rate [Anterior Bilateral Throughout] Respiratory 17 Rate [denies] Blood Pressure 133/66 159/80 135/68 O2 Sat by Pulse 97 Oximetry 01/26/18 01/26/18 01/26/18 22:10 22:20 22:30 Temperature Pulse Rate 82 80 87 Pulse Rate [ Anterior Bilateral Throughout] Pulse Rate [ From Monitor] Respiratory 17 16 11 L Rate Respiratory Rate [Anterior Bilateral Throughout] Respiratory Rate [denies] Blood Pressure 159/80 159/80 159/80 O2 Sat by Pulse Oximetry 01/26/18 01/26/18 01/26/18 22:40 22:50 23:00 Temperature Pulse Rate 68 70 69 Pulse Rate [ Anterior Bilateral Throughout] Pulse Rate [ From Monitor] Respiratory 14 19 18 Rate Respiratory Rate [Anterior Bilateral Throughout] Respiratory Rate [denies] Blood Pressure 159/80 159/80 109/55 O2 Sat by Pulse 100 100 100 Oximetry 01/26/18 01/26/18 01/26/18 23:10 23:13 23:20 Temperature Pulse Rate 68 67 67 Pulse Rate [ Anterior Bilateral Throughout] Pulse Rate [ From Monitor] Respiratory 15 14 Rate Respiratory Rate [Anterior Bilateral Throughout] Respiratory Rate [denies] Blood Pressure 109/55 109/55 109/55 O2 Sat by Pulse 100 100 100 Oximetry 01/26/18 01/26/18 01/26/18 23:30 23:38 23:40 Temperature 97.4 F L Pulse Rate 70 70 Pulse Rate [ Anterior Bilateral Throughout] Pulse Rate [ From Monitor] Respiratory 16 14 Rate Respiratory Rate [Anterior Bilateral Throughout] Respiratory Rate [denies] Blood Pressure 109/55 109/55 O2 Sat by Pulse 100 100 Oximetry 01/26/18 01/27/18 01/27/18 23:50 00:00 00:10 Temperature Pulse Rate 70 66 69 Pulse Rate [ Anterior Bilateral Throughout] Pulse Rate [ 86 From Monitor] Respiratory 15 14 19 Rate Respiratory Rate [Anterior Bilateral Throughout] Respiratory Rate [denies] Blood Pressure 109/55 97/46 97/46 O2 Sat by Pulse 100 100 99 Oximetry 01/27/18 01/27/18 01/27/18 00:20 00:30 00:45 Temperature Pulse Rate 69 66 68 Pulse Rate [ Anterior Bilateral Throughout] Pulse Rate [ From Monitor] Respiratory 16 15 Rate Respiratory Rate [Anterior Bilateral Throughout] Respiratory Rate [denies] Blood Pressure 97/46 97/46 97/46 O2 Sat by Pulse 100 100 Oximetry 01/27/18 01/27/18 01/27/18 01:00 01:30 02:00 Temperature Pulse Rate 71 70 71 Pulse Rate [ Anterior Bilateral Throughout] Pulse Rate [ From Monitor] Respiratory 17 18 19 Rate Respiratory Rate [Anterior Bilateral Throughout] Respiratory Rate [denies] Blood Pressure 101/51 101/51 109/54 O2 Sat by Pulse 100 100 97 Oximetry 01/27/18 01/27/18 01/27/18 02:44 03:00 03:09 Temperature 98.1 F Pulse Rate 96 H 97 H Pulse Rate [ Anterior Bilateral Throughout] Pulse Rate [ From Monitor] Respiratory 22 19 Rate Respiratory Rate [Anterior Bilateral Throughout] Respiratory Rate [denies] Blood Pressure 109/54 121/64 O2 Sat by Pulse 97 Oximetry 01/27/18 01/27/18 01/27/18 03:30 03:39 04:00 Temperature Pulse Rate 94 H 82 Pulse Rate [ 74 Anterior Bilateral Throughout] Pulse Rate [ 97 H From Monitor] Respiratory 19 19 13 Rate Respiratory 19 Rate [Anterior Bilateral Throughout] Respiratory Rate [denies] Blood Pressure 109/54 97/50 O2 Sat by Pulse 97 96 Oximetry 01/27/18 01/27/18 01/27/18 04:21 05:00 05:43 Temperature Pulse Rate 74 91 H Pulse Rate [ Anterior Bilateral Throughout] Pulse Rate [ 78 From Monitor] Respiratory 12 10 L Rate Respiratory Rate [Anterior Bilateral Throughout] Respiratory Rate [denies] Blood Pressure 97/50 129/71 O2 Sat by Pulse 100 98 Oximetry 01/27/18 01/27/18 01/27/18 06:00 06:50 07:00 Temperature Pulse Rate 81 81 74 Pulse Rate [ Anterior Bilateral Throughout] Pulse Rate [ From Monitor] Respiratory 17 14 Rate Respiratory Rate [Anterior Bilateral Throughout] Respiratory Rate [denies] Blood Pressure 109/58 109/58 98/49 O2 Sat by Pulse 97 98 Oximetry 01/27/18 01/27/18 01/27/18 07:40 08:00 09:00 Temperature 97.4 F L Pulse Rate 80 75 77 Pulse Rate [ Anterior Bilateral Throughout] Pulse Rate [ 75 From Monitor] Respiratory 19 18 12 Rate Respiratory Rate [Anterior Bilateral Throughout] Respiratory Rate [denies] Blood Pressure 98/49 98/61 90/60 O2 Sat by Pulse 99 100 100 Oximetry Constitutional: no acute distress Eyes: non-icteric ENT: oropharynx moist, other (ETT 20 cm MARGOT and advanced to 23cm MARGOT) Neck: supple, no lymphadenopathy, no JVD Effort: mildly labored Ascultation: Bilateral: diminished breath sounds, rales Percussion: Bilateral: not dull Cardiovascular: regular rate and rhythm, other (no rubs or murmurs) Gastrointestinal: normoactive bowel sounds, soft, non-tender, non-distended, other (no [place] HSM) Integumentary: normal Extremities: no cyanosis, no edema, pink and warm, pulses normal Neurologic: non-focal exam (grossly), pupils equal and round, CN II-XII normal, motor strength normal and Psychiatric: other (calm) CBC and BMP: 01/28/18 06:30 01/28/18 06:30 ABG, PT/INR, D-dimer: ABG POC ABG pH 7.362 (7.35-7.45) 01/27/18 04:42 POC ABG pCO2 39.1 (35-45) 01/27/18 04:42 POC ABG pO2 83 (80-105) 01/27/18 04:42 POC ABG HCO3 22.2 01/27/18 04:42 POC ABG Total CO2 23 01/27/18 04:42 POC ABG O2 Sat 96 01/27/18 04:42 PT/INR, D-dimer PT 17.5 Sec. (12.2-14.9) H 01/20/18 07:00 INR 1.35 (0.87-1.13) H 01/20/18 07:00 Abnormal lab findings: Abnormal Labs 01/17/18 01/17/18 01/17/18 15:25 16:15 16:48 WBC MCH Plt Count Seg Neuts % (Manual) Lymphocytes % (Manual) Monocytes % (Manual) Nucleated RBC % Seg Neutrophils # Man Lymphocytes # (Manual) Monocytes # (Manual) PT INR POC ABG pH 7.099 L POC ABG pCO2 58.9 H POC ABG pO2 149 H VBG pH Sodium Potassium Chloride Carbon Dioxide BUN Creatinine Glucose POC Glucose < 40 L 121 H Hemoglobin A1c Lactic Acid Calcium Total Bilirubin AST ALT Alkaline Phosphatase C-Reactive Protein Total Protein Albumin 01/17/18 01/17/18 01/17/18 16:54 16:54 16:54 WBC MCH Plt Count Seg Neuts % (Manual) 72.0 H Lymphocytes % (Manual) 3.0 L Monocytes % (Manual) Nucleated RBC % Seg Neutrophils # Man Lymphocytes # (Manual) 0.2 L Monocytes # (Manual) PT 18.5 H INR 1.45 H POC ABG pH POC ABG pCO2 POC ABG pO2 VBG pH Sodium 136 L Potassium Chloride 97.8 L Carbon Dioxide 16 L BUN 43 H Creatinine 3.3 H Glucose 121 H POC Glucose Hemoglobin A1c Lactic Acid Calcium 6.7 L Total Bilirubin AST ALT Alkaline Phosphatase C-Reactive Protein Total Protein 4.4 L Albumin 2.3 L 01/17/18 01/17/18 01/17/18 16:54 16:54 17:11 WBC MCH Plt Count Seg Neuts % (Manual) Lymphocytes % (Manual) Monocytes % (Manual) Nucleated RBC % Seg Neutrophils # Man Lymphocytes # (Manual) Monocytes # (Manual) PT INR POC ABG pH POC ABG pCO2 POC ABG pO2 VBG pH 7.273 L Sodium Potassium Chloride Carbon Dioxide BUN Creatinine Glucose POC Glucose Hemoglobin A1c Lactic Acid 4.70 H* 4.30 H* Calcium Total Bilirubin AST ALT Alkaline Phosphatase C-Reactive Protein Total Protein Albumin 01/17/18 01/17/18 01/17/18 18:02 18:15 19:21 WBC MCH Plt Count Seg Neuts % (Manual) Lymphocytes % (Manual) Monocytes % (Manual) Nucleated RBC % Seg Neutrophils # Man Lymphocytes # (Manual) Monocytes # (Manual) PT INR POC ABG pH 7.177 L POC ABG pCO2 POC ABG pO2 VBG pH Sodium Potassium Chloride Carbon Dioxide BUN Creatinine Glucose POC Glucose < 40 L Hemoglobin A1c Lactic Acid 3.00 H* Calcium Total Bilirubin AST ALT Alkaline Phosphatase C-Reactive Protein Total Protein Albumin 01/17/18 01/17/18 01/17/18 22:36 22:36 23:16 WBC MCH Plt Count Seg Neuts % (Manual) Lymphocytes % (Manual) Monocytes % (Manual) Nucleated RBC % Seg Neutrophils # Man Lymphocytes # (Manual) Monocytes # (Manual) PT INR POC ABG pH 7.112 L POC ABG pCO2 50.1 H POC ABG pO2 50 L VBG pH Sodium Potassium Chloride Carbon Dioxide BUN Creatinine Glucose POC Glucose Hemoglobin A1c 9.0 H Lactic Acid 5.50 H* Calcium Total Bilirubin AST ALT Alkaline Phosphatase C-Reactive Protein Total Protein Albumin 01/18/18 01/18/18 01/18/18 01:26 03:21 03:21 WBC MCH Plt Count Seg Neuts % (Manual) 27.0 L Lymphocytes % (Manual) 3.0 L Monocytes % (Manual) 14.0 H Nucleated RBC % Seg Neutrophils # Man Lymphocytes # (Manual) 0.3 L Monocytes # (Manual) 1.4 H PT INR POC ABG pH POC ABG pCO2 POC ABG pO2 VBG pH Sodium Potassium Chloride Carbon Dioxide BUN Creatinine Glucose POC Glucose 107 H Hemoglobin A1c Lactic Acid 8.00 H* Calcium Total Bilirubin AST ALT Alkaline Phosphatase C-Reactive Protein Total Protein Albumin 01/18/18 01/18/18 01/18/18 03:21 04:40 05:07 WBC MCH Plt Count Seg Neuts % (Manual) Lymphocytes % (Manual) Monocytes % (Manual) Nucleated RBC % Seg Neutrophils # Man Lymphocytes # (Manual) Monocytes # (Manual) PT INR POC ABG pH 7.093 L POC ABG pCO2 31.5 L POC ABG pO2 77 L VBG pH Sodium Potassium Chloride 96.9 L Carbon Dioxide 14 L BUN 47 H Creatinine 3.4 H Glucose POC Glucose Hemoglobin A1c Lactic Acid 11.10 H* Calcium 6.4 L Total Bilirubin AST 47 H ALT Alkaline Phosphatase C-Reactive Protein Total Protein 4.3 L Albumin 2.4 L 01/18/18 01/18/18 01/18/18 06:29 07:06 11:44 WBC MCH Plt Count Seg Neuts % (Manual) Lymphocytes % (Manual) Monocytes % (Manual) Nucleated RBC % Seg Neutrophils # Man Lymphocytes # (Manual) Monocytes # (Manual) PT INR POC ABG pH POC ABG pCO2 POC ABG pO2 VBG pH Sodium Potassium Chloride Carbon Dioxide BUN Creatinine Glucose POC Glucose 47 L 149 H < 40 L Hemoglobin A1c Lactic Acid Calcium Total Bilirubin AST ALT Alkaline Phosphatase C-Reactive Protein Total Protein Albumin 01/18/18 01/18/18 01/18/18 11:46 14:15 18:01 WBC MCH Plt Count Seg Neuts % (Manual) Lymphocytes % (Manual) Monocytes % (Manual) Nucleated RBC % Seg Neutrophils # Man Lymphocytes # (Manual) Monocytes # (Manual) PT INR POC ABG pH POC ABG pCO2 POC ABG pO2 VBG pH Sodium Potassium Chloride Carbon Dioxide BUN Creatinine Glucose POC Glucose 116 H < 40 L Hemoglobin A1c Lactic Acid 10.00 H* Calcium Total Bilirubin AST ALT Alkaline Phosphatase C-Reactive Protein Total Protein Albumin 01/18/18 01/18/18 01/18/18 18:02 23:25 23:27 WBC MCH Plt Count Seg Neuts % (Manual) Lymphocytes % (Manual) Monocytes % (Manual) Nucleated RBC % Seg Neutrophils # Man Lymphocytes # (Manual) Monocytes # (Manual) PT INR POC ABG pH POC ABG pCO2 POC ABG pO2 VBG pH Sodium Potassium Chloride Carbon Dioxide BUN Creatinine Glucose POC Glucose 136 H < 40 L < 40 L Hemoglobin A1c Lactic Acid Calcium Total Bilirubin AST ALT Alkaline Phosphatase C-Reactive Protein Total Protein Albumin 01/19/18 01/19/18 01/19/18 04:02 06:50 06:50 WBC 18.5 H MCH Plt Count 136 L Seg Neuts % (Manual) 86.0 H Lymphocytes % (Manual) 4.0 L Monocytes % (Manual) Nucleated RBC % Seg Neutrophils # Man 15.9 H Lymphocytes # (Manual) 0.7 L Monocytes # (Manual) 1.1 H PT 21.3 H INR 1.73 H POC ABG pH POC ABG pCO2 28.3 L POC ABG pO2 57 L VBG pH Sodium Potassium Chloride Carbon Dioxide BUN Creatinine Glucose POC Glucose Hemoglobin A1c Lactic Acid Calcium Total Bilirubin AST ALT Alkaline Phosphatase C-Reactive Protein Total Protein Albumin 01/19/18 01/19/18 01/19/18 06:50 08:45 11:17 WBC MCH Plt Count Seg Neuts % (Manual) Lymphocytes % (Manual) Monocytes % (Manual) Nucleated RBC % Seg Neutrophils # Man Lymphocytes # (Manual) Monocytes # (Manual) PT INR POC ABG pH POC ABG pCO2 POC ABG pO2 VBG pH Sodium 135 L Potassium Chloride 92.8 L Carbon Dioxide 19 L BUN 31 H Creatinine 2.6 H Glucose POC Glucose 110 H Hemoglobin A1c Lactic Acid 7.90 H* Calcium 7.1 L Total Bilirubin 1.60 H AST 2526 H ALT 1187 H Alkaline Phosphatase 133 H C-Reactive Protein Total Protein 4.8 L Albumin 2.0 L 01/19/18 01/19/18 01/19/18 11:31 22:12 23:34 WBC MCH Plt Count Seg Neuts % (Manual) Lymphocytes % (Manual) Monocytes % (Manual) Nucleated RBC % Seg Neutrophils # Man Lymphocytes # (Manual) Monocytes # (Manual) PT INR POC ABG pH POC ABG pCO2 31.6 L POC ABG pO2 59 L VBG pH Sodium Potassium Chloride Carbon Dioxide BUN Creatinine Glucose POC Glucose 131 H 53 L Hemoglobin A1c Lactic Acid Calcium Total Bilirubin AST ALT Alkaline Phosphatase C-Reactive Protein Total Protein Albumin 01/20/18 01/20/18 01/20/18 05:18 05:18 05:19 WBC 19.7 H MCH 27 L Plt Count 84 L Seg Neuts % (Manual) 84.0 H Lymphocytes % (Manual) 2.0 L Monocytes % (Manual) 8.0 H Nucleated RBC % Seg Neutrophils # Man 16.5 H Lymphocytes # (Manual) 0.4 L Monocytes # (Manual) 1.6 H PT INR POC ABG pH POC ABG pCO2 POC ABG pO2 VBG pH Sodium 136 L Potassium Chloride 96.9 L Carbon Dioxide 17 L BUN 65 H Creatinine 4.1 H D Glucose 104 H POC Glucose 125 H Hemoglobin A1c Lactic Acid Calcium 7.1 L Total Bilirubin 1.60 H AST 1702 H ALT 1141 H Alkaline Phosphatase 172 H C-Reactive Protein Total Protein 5.0 L Albumin 1.7 L 01/20/18 01/20/18 01/20/18 07:00 11:48 13:54 WBC MCH Plt Count Seg Neuts % (Manual) Lymphocytes % (Manual) Monocytes % (Manual) Nucleated RBC % Seg Neutrophils # Man Lymphocytes # (Manual) Monocytes # (Manual) PT 17.5 H INR 1.35 H POC ABG pH POC ABG pCO2 POC ABG pO2 VBG pH Sodium Potassium Chloride Carbon Dioxide BUN Creatinine Glucose POC Glucose 109 H Hemoglobin A1c Lactic Acid Calcium Total Bilirubin AST ALT Alkaline Phosphatase C-Reactive Protein 37.50 H Total Protein Albumin 01/20/18 01/20/18 01/20/18 17:28 17:51 20:50 WBC MCH Plt Count Seg Neuts % (Manual) Lymphocytes % (Manual) Monocytes % (Manual) Nucleated RBC % Seg Neutrophils # Man Lymphocytes # (Manual) Monocytes # (Manual) PT INR POC ABG pH POC ABG pCO2 POC ABG pO2 VBG pH Sodium Potassium Chloride Carbon Dioxide BUN Creatinine Glucose POC Glucose 140 H Hemoglobin A1c Lactic Acid 2.70 H* 2.30 H* Calcium Total Bilirubin AST ALT Alkaline Phosphatase C-Reactive Protein Total Protein Albumin 01/20/18 01/20/18 01/21/18 23:55 Unknown 00:12 WBC MCH Plt Count Seg Neuts % (Manual) Lymphocytes % (Manual) Monocytes % (Manual) Nucleated RBC % Seg Neutrophils # Man Lymphocytes # (Manual) Monocytes # (Manual) PT INR POC ABG pH POC ABG pCO2 POC ABG pO2 VBG pH Sodium Potassium Chloride Carbon Dioxide BUN Creatinine Glucose POC Glucose 149 H 134 H Hemoglobin A1c Lactic Acid 2.50 H* Calcium Total Bilirubin AST ALT Alkaline Phosphatase C-Reactive Protein Total Protein Albumin 01/21/18 01/21/18 01/21/18 04:27 05:00 05:00 WBC 21.7 H MCH 27 L Plt Count 67 L Seg Neuts % (Manual) 71.0 H Lymphocytes % (Manual) 9.0 L Monocytes % (Manual) Nucleated RBC % 4.0 H Seg Neutrophils # Man 15.4 H Lymphocytes # (Manual) Monocytes # (Manual) PT INR POC ABG pH POC ABG pCO2 33.8 L POC ABG pO2 72 L VBG pH Sodium Potassium Chloride Carbon Dioxide 21 L BUN 71 H Creatinine 4.1 H Glucose 149 H POC Glucose Hemoglobin A1c Lactic Acid Calcium 7.5 L Total Bilirubin AST 494 H ALT 780 H Alkaline Phosphatase 151 H C-Reactive Protein Total Protein 4.9 L Albumin 1.9 L 01/21/18 01/21/18 01/21/18 05:00 05:18 12:20 WBC MCH Plt Count Seg Neuts % (Manual) Lymphocytes % (Manual) Monocytes % (Manual) Nucleated RBC % Seg Neutrophils # Man Lymphocytes # (Manual) Monocytes # (Manual) PT INR POC ABG pH POC ABG pCO2 POC ABG pO2 VBG pH Sodium Potassium Chloride Carbon Dioxide BUN Creatinine Glucose POC Glucose 132 H 158 H Hemoglobin A1c Lactic Acid 2.10 H* Calcium Total Bilirubin AST ALT Alkaline Phosphatase C-Reactive Protein Total Protein Albumin 01/21/18 01/21/18 01/22/18 18:07 23:40 03:48 WBC MCH Plt Count Seg Neuts % (Manual) Lymphocytes % (Manual) Monocytes % (Manual) Nucleated RBC % Seg Neutrophils # Man Lymphocytes # (Manual) Monocytes # (Manual) PT INR POC ABG pH POC ABG pCO2 POC ABG pO2 65 L VBG pH Sodium Potassium Chloride Carbon Dioxide BUN Creatinine Glucose POC Glucose 143 H 136 H Hemoglobin A1c Lactic Acid Calcium Total Bilirubin AST ALT Alkaline Phosphatase C-Reactive Protein Total Protein Albumin 01/22/18 01/22/18 01/22/18 04:10 04:10 05:56 WBC 24.9 H MCH 27 L Plt Count 80 L Seg Neuts % (Manual) Lymphocytes % (Manual) Monocytes % (Manual) Nucleated RBC % Seg Neutrophils # Man Lymphocytes # (Manual) Monocytes # (Manual) PT INR POC ABG pH POC ABG pCO2 POC ABG pO2 VBG pH Sodium Potassium Chloride 97.7 L Carbon Dioxide BUN 72 H Creatinine 3.6 H Glucose 145 H POC Glucose 139 H Hemoglobin A1c Lactic Acid Calcium 7.3 L Total Bilirubin AST 146 H ALT 547 H Alkaline Phosphatase C-Reactive Protein Total Protein 5.2 L Albumin 2.3 L 01/22/18 01/22/18 01/23/18 11:30 17:41 00:00 WBC MCH Plt Count Seg Neuts % (Manual) Lymphocytes % (Manual) Monocytes % (Manual) Nucleated RBC % Seg Neutrophils # Man Lymphocytes # (Manual) Monocytes # (Manual) PT INR POC ABG pH POC ABG pCO2 POC ABG pO2 VBG pH Sodium Potassium Chloride Carbon Dioxide BUN Creatinine Glucose POC Glucose 156 H 185 H 150 H Hemoglobin A1c Lactic Acid Calcium Total Bilirubin AST ALT Alkaline Phosphatase C-Reactive Protein Total Protein Albumin 01/23/18 01/23/18 01/23/18 04:39 05:24 11:38 WBC MCH Plt Count Seg Neuts % (Manual) Lymphocytes % (Manual) Monocytes % (Manual) Nucleated RBC % Seg Neutrophils # Man Lymphocytes # (Manual) Monocytes # (Manual) PT INR POC ABG pH POC ABG pCO2 31.9 L POC ABG pO2 62 L VBG pH Sodium Potassium Chloride Carbon Dioxide BUN Creatinine Glucose POC Glucose 215 H 182 H Hemoglobin A1c Lactic Acid Calcium Total Bilirubin AST ALT Alkaline Phosphatase C-Reactive Protein Total Protein Albumin 01/23/18 01/23/18 01/24/18 14:20 17:26 00:10 WBC MCH Plt Count Seg Neuts % (Manual) Lymphocytes % (Manual) Monocytes % (Manual) Nucleated RBC % Seg Neutrophils # Man Lymphocytes # (Manual) Monocytes # (Manual) PT INR POC ABG pH POC ABG pCO2 31.4 L POC ABG pO2 55 L VBG pH Sodium Potassium Chloride Carbon Dioxide BUN Creatinine Glucose POC Glucose 252 H 225 H Hemoglobin A1c Lactic Acid Calcium Total Bilirubin AST ALT Alkaline Phosphatase C-Reactive Protein Total Protein Albumin 01/24/18 01/24/18 01/24/18 03:40 03:40 06:06 WBC 34.5 H MCH 27 L Plt Count 130 L Seg Neuts % (Manual) Lymphocytes % (Manual) Monocytes % (Manual) Nucleated RBC % Seg Neutrophils # Man Lymphocytes # (Manual) Monocytes # (Manual) PT INR POC ABG pH POC ABG pCO2 POC ABG pO2 VBG pH Sodium Potassium 5.7 H D Chloride 95.6 L Carbon Dioxide 20 L BUN 96 H Creatinine 4.2 H Glucose 166 H POC Glucose 162 H Hemoglobin A1c Lactic Acid Calcium 7.3 L Total Bilirubin AST 52 H ALT 235 H Alkaline Phosphatase C-Reactive Protein Total Protein 5.1 L Albumin 2.5 L 01/24/18 01/24/18 01/24/18 11:36 15:08 17:32 WBC MCH Plt Count Seg Neuts % (Manual) Lymphocytes % (Manual) Monocytes % (Manual) Nucleated RBC % Seg Neutrophils # Man Lymphocytes # (Manual) Monocytes # (Manual) PT INR POC ABG pH POC ABG pCO2 POC ABG pO2 VBG pH Sodium Potassium Chloride Carbon Dioxide BUN Creatinine Glucose POC Glucose 160 H 160 H Hemoglobin A1c Lactic Acid Calcium Total Bilirubin AST ALT Alkaline Phosphatase C-Reactive Protein 3.30 H Total Protein Albumin 01/25/18 01/25/18 01/25/18 00:04 04:34 05:25 WBC MCH Plt Count Seg Neuts % (Manual) Lymphocytes % (Manual) Monocytes % (Manual) Nucleated RBC % Seg Neutrophils # Man Lymphocytes # (Manual) Monocytes # (Manual) PT INR POC ABG pH 7.342 L POC ABG pCO2 48.7 H POC ABG pO2 VBG pH Sodium Potassium Chloride Carbon Dioxide BUN Creatinine Glucose POC Glucose 169 H 133 H Hemoglobin A1c Lactic Acid Calcium Total Bilirubin AST ALT Alkaline Phosphatase C-Reactive Protein Total Protein Albumin 01/25/18 01/25/18 01/25/18 11:46 17:42 23:50 WBC MCH Plt Count Seg Neuts % (Manual) Lymphocytes % (Manual) Monocytes % (Manual) Nucleated RBC % Seg Neutrophils # Man Lymphocytes # (Manual) Monocytes # (Manual) PT INR POC ABG pH POC ABG pCO2 POC ABG pO2 VBG pH Sodium Potassium Chloride Carbon Dioxide BUN Creatinine Glucose POC Glucose 121 H 150 H 149 H Hemoglobin A1c Lactic Acid Calcium Total Bilirubin AST ALT Alkaline Phosphatase C-Reactive Protein Total Protein Albumin 01/26/18 01/26/18 01/26/18 04:13 05:25 06:20 WBC 21.0 H MCH Plt Count Seg Neuts % (Manual) 95.0 H Lymphocytes % (Manual) 1.0 L Monocytes % (Manual) Nucleated RBC % Seg Neutrophils # Man 20.0 H Lymphocytes # (Manual) 0.2 L Monocytes # (Manual) PT INR POC ABG pH POC ABG pCO2 POC ABG pO2 70 L VBG pH Sodium Potassium Chloride Carbon Dioxide BUN Creatinine Glucose POC Glucose 107 H Hemoglobin A1c Lactic Acid Calcium Total Bilirubin AST ALT Alkaline Phosphatase C-Reactive Protein Total Protein Albumin 01/26/18 01/26/18 01/26/18 06:20 12:19 18:09 WBC MCH Plt Count Seg Neuts % (Manual) Lymphocytes % (Manual) Monocytes % (Manual) Nucleated RBC % Seg Neutrophils # Man Lymphocytes # (Manual) Monocytes # (Manual) PT INR POC ABG pH POC ABG pCO2 POC ABG pO2 VBG pH Sodium Potassium 5.9 H Chloride 95.7 L Carbon Dioxide BUN 102 H Creatinine 4.6 H Glucose POC Glucose 151 H 110 H Hemoglobin A1c Lactic Acid Calcium 6.6 L Total Bilirubin AST ALT Alkaline Phosphatase C-Reactive Protein Total Protein Albumin 01/27/18 01/27/18 01/27/18 00:17 05:20 05:20 WBC 23.3 H MCH 27 L Plt Count Seg Neuts % (Manual) 97.0 H Lymphocytes % (Manual) 0 L Monocytes % (Manual) Nucleated RBC % Seg Neutrophils # Man 22.6 H Lymphocytes # (Manual) 0.0 L Monocytes # (Manual) PT INR POC ABG pH POC ABG pCO2 POC ABG pO2 VBG pH Sodium Potassium 5.7 H Chloride 93.9 L Carbon Dioxide 21 L BUN 121 H Creatinine 5.2 H Glucose 131 H POC Glucose 159 H Hemoglobin A1c Lactic Acid Calcium 6.1 L Total Bilirubin AST ALT Alkaline Phosphatase C-Reactive Protein Total Protein Albumin 01/27/18 05:43 WBC MCH Plt Count Seg Neuts % (Manual) Lymphocytes % (Manual) Monocytes % (Manual) Nucleated RBC % Seg Neutrophils # Man Lymphocytes # (Manual) Monocytes # (Manual) PT INR POC ABG pH POC ABG pCO2 POC ABG pO2 VBG pH Sodium Potassium Chloride Carbon Dioxide BUN Creatinine Glucose POC Glucose 121 H Hemoglobin A1c Lactic Acid Calcium Total Bilirubin AST ALT Alkaline Phosphatase C-Reactive Protein Total Protein Albumin Allied health notes reviewed: nursing
--- NOTE | 2018-01-27 11:33 | Progress Note ---
Assessment and Plan Assessment and plan: Acute hypercapnic respiratory failure - Likely from drug abuse and aspiration - VAP bundle -on vent support -Lung protective strategies, ARDS-net protocol Large Left Pleural Effusion - Will discuss with Pulmonary about Thoracentesis Severe Sepsis with septic shock likely from aspiration pneumonia-POA -Recurrent fever possible due to the infection -Had some reaction to zosyn with facial flushing -abx changed to levaquin and flagyl -worsening Leukocytosis like secondary to steroids given for allergic reaction -Left lobar infiltrate on admission -We'll continue broad-spectrum antibiotic for now -?pelvic mass, Discussed with [employer] likely cyst. and Pelvic ultrasound -negative blood culture, sputum cx pending -Lactic acidosis likely from severe sepsis and along with decline in renal function -placed on bicarbonate drip initially, now on HD DM uncontrolled -Continue insulin therapy Shock required pressors - likely from sepsis vs cardiogenic - Continue IV antibiotics - off pressors today. required 3 pressors on admission Decompensated acute CHF - EF 30-35% on echo - cardiology following - For HD today per renal service History of pacemaker insertion in 2008 post PCI History of CAD s/p PCI in 2008 JANESSA Etiology likely due to ATN from severe sepsis - monitor renal function, now on HD - For HD today per renal service - Avoid nephrotoxins, nephrology consulted Hyperkalemia -Continue hemodialysis History of cocaine and methamphetamine abuse Acute encephalopathy - Multifactorial, likely from drug abuse vs severe sepsis versus anoxic encephalopathy - CT head no acute finding - Pacemaker precludes getting MRI brain - Neurology consultation ordered Ischemic hepatitis Elevated LFTs, etiology secondary to shock liver syndrome - Likely from severe hypotension causing shock liver - Continue to monitor Coagulopathy Etiology due to severe sepsis and abnormal liver function Bilateral finger Ischemic Changes possible secondary to pressors but potentiated by hx of from drug abuse, will get vascular consult Thrombocytopenia Etiology likely secondary to sepsis - Montior Disposition: Continue ICU monitoring, very poor prognosis. The high probability of a clinically significant, sudden or life threatening deterioration of the [multiorgan] system(s) required my full and direct attention, intervention and personal management. The aggregate critical care time was [31] minutes. This time is in addition to time spent performing reported procedures but includes the following: [x] Data Review and interpretation [x] Patient assessment and monitoring of vital signs [x] Documentation [x] Medication orders and management History Interval history: 62-year-old admitted with hx of htn, polysubstance drug abuse per family, admitted after she was found unresponsive found in the bathroom pf a friends home, noted with severe lactic acidosis, hypotensive on vasopressors, hypercapenic respiratory failure requiring intubation . Hospitalist Physical - Constitutional Vitals: Temp Pulse Resp BP Pulse Ox 97.4 F L 89 20 106/58 100 01/27/18 09:00 01/27/18 11:07 01/27/18 11:00 01/27/18 11:07 01/27/18 11:00 General appearance: Present: other (intubated) - EENT Eyes: Present: PERRL, EOM intact ENT: hearing intact, clear oral mucosa, dentition normal - Neck Neck: Present: supple, normal ROM - Respiratory Respiratory effort: normal Respiratory: bilateral: diminished, rhonchi - Cardiovascular Rhythm: regular Heart Sounds: Present: S1 & S2. Absent: gallop, rub - Extremities Extremities: no ischemia, No edema, Full ROM - Abdominal General gastrointestinal: soft, non-tender, non-distended, normal bowel sounds - Integumentary Integumentary: Present: clear, warm, dry - Neurologic Neurologic: CNII-XII intact, moves all extremities Results - Labs CBC & Chem 7: 01/27/18 05:20 01/27/18 05:20 Labs: Laboratory Last Values WBC 23.3 K/mm3 (4.5-11.0) H 01/27/18 05:20 RBC 3.78 M/mm3 (3.65-5.03) 01/27/18 05:20 Hgb 10.2 gm/dl (10.1-14.3) 01/27/18 05:20 Hct 32.3 % (30.3-42.9) 01/27/18 05:20 MCV 86 fl (79-97) 01/27/18 05:20 MCH 27 pg (28-32) L 01/27/18 05:20 MCHC 31 % (30-34) 01/27/18 05:20 RDW 15.0 % (13.2-15.2) 01/27/18 05:20 Plt Count 262 K/mm3 (140-440) 01/27/18 05:20 Lymph % (Auto) Bank Reconciliator 01/17/18 16:54 Ellis % (Auto) Bank Reconciliator 01/17/18 16:54 Eos % (Auto) Bank Reconciliator 01/17/18 16:54 Baso % (Auto) Bank Reconciliator 01/17/18 16:54 Lymph # Bank Reconciliator 01/17/18 16:54 Ellis # Bank Reconciliator 01/17/18 16:54 Eos # Bank Reconciliator 01/17/18 16:54 Baso # Bank Reconciliator 01/17/18 16:54 Add Manual Diff Complete 01/27/18 05:20 Total Counted 100 01/27/18 05:20 Seg Neutrophils % Bank Reconciliator 01/27/18 05:20 Seg Neuts % (Manual) 97.0 % (40.0-70.0) H 01/27/18 05:20 Band Neutrophils % 0 % 01/27/18 05:20 Lymphocytes % (Manual) 0 % (13.4-35.0) L 01/27/18 05:20 Reactive Lymphs % (Man) 0 % 01/27/18 05:20 Monocytes % (Manual) 2.0 % (0.0-7.3) 01/27/18 05:20 Eosinophils % (Manual) 0 % (0.0-4.3) 01/27/18 05:20 Basophils % (Manual) 0 % (0.0-1.8) 01/27/18 05:20 Metamyelocytes % 0 % 01/27/18 05:20 Myelocytes % 1.0 % 01/27/18 05:20 Promyelocytes % 0 % 01/27/18 05:20 Blast Cells % 0 % 01/27/18 05:20 Nucleated RBC % Not Reportable 01/27/18 05:20 Seg Neutrophils # Bank Reconciliator 01/17/18 16:54 Seg Neutrophils # Man 22.6 K/mm3 (1.8-7.7) H 01/27/18 05:20 Band Neutrophils # 0.0 K/mm3 01/27/18 05:20 Lymphocytes # (Manual) 0.0 K/mm3 (1.2-5.4) L 01/27/18 05:20 Abs React Lymphs (Man) 0.0 K/mm3 01/27/18 05:20 Monocytes # (Manual) 0.5 K/mm3 (0.0-0.8) 01/27/18 05:20 Eosinophils # (Manual) 0.0 K/mm3 (0.0-0.4) 01/27/18 05:20 Basophils # (Manual) 0.0 K/mm3 (0.0-0.1) 01/27/18 05:20 Metamyelocytes # 0.0 K/mm3 01/27/18 05:20 Myelocytes # 0.2 K/mm3 01/27/18 05:20 Promyelocytes # 0.0 K/mm3 01/27/18 05:20 Blast Cells # 0.0 K/mm3 01/27/18 05:20 WBC Morphology Not Reportable 01/27/18 05:20 Hypersegmented Neuts Not Reportable 01/27/18 05:20 Hyposegmented Neuts Not Reportable 01/27/18 05:20 Hypogranular Neuts Not Reportable 01/27/18 05:20 Smudge Cells Not Reportable 01/27/18 05:20 Toxic Granulation Not Reportable 01/27/18 05:20 Toxic Vacuolation Not Reportable 01/27/18 05:20 Dohle Bodies Not Reportable 01/27/18 05:20 Pelger-Huet Anomaly Not Reportable 01/27/18 05:20 Opal Rods Not Reportable 01/27/18 05:20 Platelet Estimate Consistent w auto 01/27/18 05:20 Clumped Platelets Not Reportable 01/27/18 05:20 Plt Clumps, EDTA Not Reportable 01/27/18 05:20 Large Platelets Not Reportable 01/27/18 05:20 Giant Platelets Rare 01/27/18 05:20 Platelet Satelliting Not Reportable 01/27/18 05:20 Plt Morphology Comment Not Reportable 01/27/18 05:20 RBC Morphology Not Reportable 01/27/18 05:20 Dimorphic RBCs Not Reportable 01/27/18 05:20 Polychromasia Not Reportable 01/27/18 05:20 Hypochromasia Not Reportable 01/27/18 05:20 Poikilocytosis Not Reportable 01/27/18 05:20 Anisocytosis Not Reportable 01/27/18 05:20 Microcytosis Not Reportable 01/27/18 05:20 Macrocytosis Not Reportable 01/27/18 05:20 Spherocytes Not Reportable 01/27/18 05:20 Pappenheimer Bodies Not Reportable 01/27/18 05:20 Sickle Cells Not Reportable 01/27/18 05:20 Target Cells Not Reportable 01/27/18 05:20 Tear Drop Cells Not Reportable 01/27/18 05:20 Ovalocytes Not Reportable 01/27/18 05:20 Stomatocytes Few 01/26/18 06:20 Helmet Cells Not Reportable 01/27/18 05:20 [place] Bodies Not Reportable 01/27/18 05:20 [place] Rings Not Reportable 01/27/18 05:20 [place] Cells Not Reportable 01/27/18 05:20 Bite Cells Not Reportable 01/27/18 05:20 Crenated Cell Not Reportable 01/27/18 05:20 Elliptocytes Not Reportable 01/27/18 05:20 Acanthocytes (Spur) Not Reportable 01/27/18 05:20 Rouleaux Not Reportable 01/27/18 05:20 Hemoglobin C Crystals Not Reportable 01/27/18 05:20 Schistocytes Not Reportable 01/27/18 05:20 Malaria parasites Not Reportable 01/27/18 05:20 Brock Bodies Not Reportable 01/27/18 05:20 Hem Pathologist Commnt No 01/27/18 05:20 PT 17.5 Sec. (12.2-14.9) H 01/20/18 07:00 INR 1.35 (0.87-1.13) H 01/20/18 07:00 Heparin Anti-Xa, Unfract Negative (Negative) 01/20/18 11:03 POC ABG pH 7.362 (7.35-7.45) 01/27/18 04:42 POC ABG pCO2 39.1 (35-45) 01/27/18 04:42 POC ABG pO2 83 (80-105) 01/27/18 04:42 POC ABG HCO3 22.2 01/27/18 04:42 POC ABG Total CO2 23 01/27/18 04:42 POC ABG O2 Sat 96 01/27/18 04:42 POC ABG Base Excess -3 01/27/18 04:42 VBG pH 7.273 (7.320-7.420) L 01/17/18 16:54 FiO2 30 % 01/27/18 04:42 Sodium 137 mmol/L (137-145) 01/27/18 05:20 Potassium 5.7 mmol/L (3.6-5.0) H 01/27/18 05:20 Chloride 93.9 mmol/L (98-107) L 01/27/18 05:20 Carbon Dioxide 21 mmol/L (22-30) L 01/27/18 05:20 Anion Gap 28 mmol/L 01/27/18 05:20 BUN 121 mg/dL (7-17) H 01/27/18 05:20 Creatinine 5.2 mg/dL (0.7-1.2) H 01/27/18 05:20 Estimated GFR 8 ml/min 01/27/18 05:20 BUN/Creatinine Ratio 23 % 01/27/18 05:20 Glucose 131 mg/dL (65-100) H 01/27/18 05:20 POC Glucose 121 (70-105) H 01/27/18 05:43 Hemoglobin A1c 9.0 % (4-6) H 01/17/18 22:36 Lactic Acid 1.40 mmol/L (0.7-2.0) 01/24/18 15:08 Calcium 6.1 mg/dL (8.4-10.2) L 01/27/18 05:20 Total Bilirubin 1.10 mg/dL (0.1-1.2) 01/24/18 03:40 AST 52 units/L (5-40) H 01/24/18 03:40 ALT 235 units/L (7-56) H 01/24/18 03:40 Alkaline Phosphatase 105 units/L (35-129) 01/24/18 03:40 C-Reactive Protein 3.30 mg/dL (0.00-1.30) H 01/24/18 15:08 Total Protein 5.1 g/dL (6.3-8.2) L 01/24/18 03:40 Albumin 2.5 g/dL (3.9-5) L 01/24/18 03:40 Albumin/Globulin Ratio 1.0 % 01/24/18 03:40 Serotonin Release Assay See scanned report 01/20/18 11:03 Random Vancomycin 19.8 ug/mL (0-40.0) 01/27/18 05:20 ALISA Screen Negative (Negative) 01/20/18 Unknown Heparin-induced Plt Ab Negative (Negative) 01/20/18 11:03 UF Heparin High Dose 0 % Release 01/20/18 11:03 NEGRITA UFH Low Dose 0.1 0 % Release 01/20/18 11:03 NEGRITA UFH Low Dose 0.5 0 % Release 01/20/18 11:03 Hepatitis A IgM Ab Non-reactive (NonReactive) 01/20/18 07:00 Hep Bs Antigen Non-reactive (Negative) 01/20/18 07:00 Hep B Core IgM Ab Non-reactive (NonReactive) 01/20/18 07:00 Hepatitis C Antibody Non-reactive (NonReactive) 01/20/18 07:00 HIV 1&2 Antibody Rapid Non react (Non React) 01/20/18 Unknown HIV P24 Antigen Non react (Non React) 01/20/18 Unknown
--- NOTE | 2018-01-27 11:45 | Progress Note ---
Assessment and Plan Assessment: 1) Severe sepsis with septic shock and MODS: shock resolved, fever resolved and still leukocytosis 24-->34-->23K. Etiology most likely unclear. DDx: pneumonia ? pelvic collections? PE. CRP=37 -blood cx negative -legs US neg for DVT 2) Acute respiratory failure 3) Presumed pneumonia with large left pleural effusion: -repeat CXR - decreased effusion -TA no growth 4) JANESSA: worsening now on HD 5) Presumed ? drug abuse 6) DM-poorly controlled 7) Bilateral fingers ischemic changes: from pressors ? 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 flushing ? zosyn allergy 11) Acute encephalopathy 12) Pelvic collections x 3: ? etiology -CT showed non obstructed left kidney stones, large left pelvic cyst 8.8 x 5.7 cm, LLL atelectasis minimal pleural effusion 13) Penicillin allergy Plan: -continue levaquin and flagyl - day 5 (day 11 counting previous abx) -stop vancomycin - day11 -monitor leukocytosis -consider IR eval to drain large left pelvic cyst 8.8 x 5.7 cm Thank you for your consultation, will follow up with you. . Michaela Parekh MD Infectious Diseases Specialist [facility] ([facility] M [phone] O [phone] Subjective Date of service: 01/27/18 Principal diagnosis: Acute hypoxic respiratory failure, severe sepsis with shock , encephalopathy Interval history: Remains intubated, sedated, no fever Microbiology: Blood cultures: 01/17 neg 01/20 ngtd Urine cultures: Respiratory cultures: TA 01/17 ngtd / Gram stain - many GPC in chains Current Antimicrobials: levaquin 01/23 flagyl 01/23 Vancomycin 01/18 Previous Antimicrobials: Zosyn 01/18 Objective - Exam Narrative Exam: General appearance: sedated on the vent, alert eyes opening Eyes: anicteric sclerae, moist conjunctivae; no lid-lag; PERRLA HENT: Atraumatic; oropharynx clear +ETT +NGT Neck: Trachea midline; supple, no thyromegaly or lymphadenopathy Lungs: juan rhonchi CV: tachy Abdomen: Soft, non-tender; distended Extremities: No peripheral edema or extremity lymphadenopathy Skin: resolved erythematous macular rash on chest and upper arms. +bilateral multiple fingers and toes purpuric changes Psych: sedated Neuro: sedated Lines: right fem vascath, right IJ TLC - Constitutional Vitals: Vital Signs Temp Pulse Resp BP Pulse Ox 97.4 F L 89 20 106/58 100 01/27/18 09:00 01/27/18 11:07 01/27/18 11:00 01/27/18 11:07 01/27/18 11:00 Temperature -Last 24 Hours Temperature 97.4 F Temperature 97.4 F Temperature 98.1 F Temperature 97.4 F Temperature 97.5 F Temperature 97.9 F Temperature 97.6 F - Labs CBC & Chem 7: 01/27/18 05:20 01/27/18 05:20 Labs: Abnormal lab results 01/26/18 01/26/18 01/27/18 Range/Units 12:19 18:09 00:17 WBC (4.5-11.0) K/mm3 MCH (28-32) pg Seg Neuts % (Manual) (40.0-70.0) % Lymphocytes % (Manual) (13.4-35.0) % Seg Neutrophils # Man (1.8-7.7) K/mm3 Lymphocytes # (Manual) (1.2-5.4) K/mm3 Potassium (3.6-5.0) mmol/L Chloride (98-107) mmol/L Carbon Dioxide (22-30) mmol/L BUN (7-17) mg/dL Creatinine (0.7-1.2) mg/dL Glucose (65-100) mg/dL POC Glucose 151 H 110 H 159 H (70-105) Calcium (8.4-10.2) mg/dL 01/27/18 01/27/18 01/27/18 Range/Units 05:20 05:20 05:43 WBC 23.3 H (4.5-11.0) K/mm3 MCH 27 L (28-32) pg Seg Neuts % (Manual) 97.0 H (40.0-70.0) % Lymphocytes % (Manual) 0 L (13.4-35.0) % Seg Neutrophils # Man 22.6 H (1.8-7.7) K/mm3 Lymphocytes # (Manual) 0.0 L (1.2-5.4) K/mm3 Potassium 5.7 H (3.6-5.0) mmol/L Chloride 93.9 L (98-107) mmol/L Carbon Dioxide 21 L (22-30) mmol/L BUN 121 H (7-17) mg/dL Creatinine 5.2 H (0.7-1.2) mg/dL Glucose 131 H (65-100) mg/dL POC Glucose 121 H (70-105) Calcium 6.1 L (8.4-10.2) mg/dL
--- NOTE | 2018-01-27 12:52 | Progress Note ---
Assessment and Plan - Patient Problems (1) Acute renal failure Current Visit: Yes Status: Acute Plan to address problem: may be prerenal with ATN. Pt has mild hyperkalemia-HD as ordered. Adjust meds per renal function. Prognosis- guarded (2) Sepsis Current Visit: Yes Status: Acute Plan to address problem: Severe sepsis with multiorgan failure. ID notes reviewed (3) Acute respiratory failure Current Visit: Yes Status: Acute Plan to address problem: on ventilator-pulmonary notes reviewed. (4) PVD (peripheral vascular disease) Current Visit: Yes Status: Acute (5) Anemia Current Visit: Yes Status: Acute (6) Hypocalcemia Current Visit: Yes Status: Acute (7) Hypoalbuminemia Current Visit: Yes Status: Acute (8) Transaminitis Current Visit: Yes Status: Acute (9) Pleural effusion Current Visit: Yes Status: Acute (10) Encephalopathy Current Visit: Yes Status: Acute (11) Hyperkalemia Current Visit: Yes Status: Acute Subjective Date of service: 01/27/18 Principal diagnosis: Acute hypoxic respiratory failure, severe sepsis with shock , encephalopathy Interval history: pt is orally intubated, on ventilator, sedated. Fio2-30%.Chart was reviewed, spoke with pt's nurse Objective - Vital Signs Vital signs: Vital Signs - 12hr 01/27/18 01/27/18 01/27/18 01:00 01:30 02:00 Temperature Pulse Rate 71 70 71 Pulse Rate [ Anterior Bilateral Throughout] Pulse Rate [ From Monitor] Respiratory 17 18 19 Rate Respiratory Rate [Anterior Bilateral Throughout] Blood Pressure 101/51 101/51 109/54 O2 Sat by Pulse 100 100 97 Oximetry O2 Sat by Pulse Oximetry [ Anterior Bilateral Throughout] 01/27/18 01/27/18 01/27/18 02:44 03:00 03:09 Temperature 98.1 F Pulse Rate 96 H 97 H Pulse Rate [ Anterior Bilateral Throughout] Pulse Rate [ From Monitor] Respiratory 22 19 Rate Respiratory Rate [Anterior Bilateral Throughout] Blood Pressure 109/54 121/64 O2 Sat by Pulse 97 Oximetry O2 Sat by Pulse Oximetry [ Anterior Bilateral Throughout] 01/27/18 01/27/18 01/27/18 03:30 03:39 04:00 Temperature Pulse Rate 94 H 82 Pulse Rate [ 74 Anterior Bilateral Throughout] Pulse Rate [ 97 H From Monitor] Respiratory 19 19 13 Rate Respiratory 19 Rate [Anterior Bilateral Throughout] Blood Pressure 109/54 97/50 O2 Sat by Pulse 97 96 Oximetry O2 Sat by Pulse Oximetry [ Anterior Bilateral Throughout] 01/27/18 01/27/18 01/27/18 04:21 05:00 05:43 Temperature Pulse Rate 74 91 H Pulse Rate [ Anterior Bilateral Throughout] Pulse Rate [ 78 From Monitor] Respiratory 12 10 L Rate Respiratory Rate [Anterior Bilateral Throughout] Blood Pressure 97/50 129/71 O2 Sat by Pulse 100 98 Oximetry O2 Sat by Pulse Oximetry [ Anterior Bilateral Throughout] 01/27/18 01/27/18 01/27/18 06:00 06:50 07:00 Temperature Pulse Rate 81 81 74 Pulse Rate [ Anterior Bilateral Throughout] Pulse Rate [ From Monitor] Respiratory 17 14 Rate Respiratory Rate [Anterior Bilateral Throughout] Blood Pressure 109/58 109/58 98/49 O2 Sat by Pulse 97 98 Oximetry O2 Sat by Pulse Oximetry [ Anterior Bilateral Throughout] 01/27/18 01/27/18 01/27/18 07:40 08:00 09:00 Temperature 97.4 F L 97.4 F L Pulse Rate 80 75 80 Pulse Rate [ Anterior Bilateral Throughout] Pulse Rate [ 75 From Monitor] Respiratory 19 18 16 Rate Respiratory Rate [Anterior Bilateral Throughout] Blood Pressure 98/49 98/61 92/50 O2 Sat by Pulse 99 100 100 Oximetry O2 Sat by Pulse 100 Oximetry [ Anterior Bilateral Throughout] 01/27/18 01/27/18 01/27/18 09:40 09:45 10:00 Temperature Pulse Rate 94 H 83 84 Pulse Rate [ Anterior Bilateral Throughout] Pulse Rate [ From Monitor] Respiratory 26 H Rate Respiratory Rate [Anterior Bilateral Throughout] Blood Pressure 96/50 104/60 94/52 O2 Sat by Pulse 100 Oximetry O2 Sat by Pulse Oximetry [ Anterior Bilateral Throughout] 01/27/18 01/27/18 01/27/18 10:15 10:25 10:30 Temperature Pulse Rate 83 86 Pulse Rate [ Anterior Bilateral Throughout] Pulse Rate [ From Monitor] Respiratory 17 22 Rate Respiratory Rate [Anterior Bilateral Throughout] Blood Pressure 89/56 104/60 90/55 O2 Sat by Pulse 100 99 Oximetry O2 Sat by Pulse Oximetry [ Anterior Bilateral Throughout] 01/27/18 01/27/18 01/27/18 10:35 10:45 11:00 Temperature Pulse Rate 75 86 82 Pulse Rate [ Anterior Bilateral Throughout] Pulse Rate [ From Monitor] Respiratory 22 23 20 Rate Respiratory Rate [Anterior Bilateral Throughout] Blood Pressure 101/60 106/59 O2 Sat by Pulse 98 99 100 Oximetry O2 Sat by Pulse Oximetry [ Anterior Bilateral Throughout] 01/27/18 01/27/18 01/27/18 11:07 11:15 11:30 Temperature Pulse Rate 89 92 H 79 Pulse Rate [ Anterior Bilateral Throughout] Pulse Rate [ From Monitor] Respiratory 20 18 Rate Respiratory Rate [Anterior Bilateral Throughout] Blood Pressure 106/58 98/54 97/54 O2 Sat by Pulse 100 Oximetry O2 Sat by Pulse Oximetry [ Anterior Bilateral Throughout] 01/27/18 01/27/18 01/27/18 11:45 12:00 12:15 Temperature Pulse Rate 85 90 88 Pulse Rate [ Anterior Bilateral Throughout] Pulse Rate [ From Monitor] Respiratory 20 22 18 Rate Respiratory Rate [Anterior Bilateral Throughout] Blood Pressure 99/63 104/65 114/63 O2 Sat by Pulse 100 100 100 Oximetry O2 Sat by Pulse Oximetry [ Anterior Bilateral Throughout] 01/27/18 01/27/18 12:30 12:45 Temperature Pulse Rate 77 79 Pulse Rate [ Anterior Bilateral Throughout] Pulse Rate [ From Monitor] Respiratory 19 15 Rate Respiratory Rate [Anterior Bilateral Throughout] Blood Pressure 91/58 97/61 O2 Sat by Pulse 100 100 Oximetry O2 Sat by Pulse Oximetry [ Anterior Bilateral Throughout] - General Appearance General appearance: chronically ill, sedated on ventilator, intubated EENT: mucous membranes dry Neck: no JVD Respiratory: Present: Decreased Breath Sounds Cardiology: regular Gastrointestinal: normoactive bowel sounds Integumentary: cool/clammy, other (ischemic extremities) - Lab 01/27/18 05:20 01/27/18 05:20 Most recent lab results Calcium 6.1 mg/dL (8.4-10.2) L 01/27/18 05:20 - Imaging Chest x-ray: report reviewed
[2018-01-27] MEDS: LEVAQUIN 750MG/150ML 750 MG/150 ML BAG IV SCH (17:43)
[2018-01-27] MEDS ORDERED: NACL 0.9 (PRIMING MACHINE ONLY DIALYSIS) MC ONE (18:57)
[2018-01-27] MEDS ORDERED: VANCOMYCIN/0.45 NS 1 GM/250 ML 1 GM/250 ML BAG IV SCH (20:00)
--- NOTE | 2018-01-27 20:14 | Consultation ---
History of Present Illness Consult date: 01/27/18 Requesting physician: NILE FOWLER Reason for Consult: altered mental status Chief complaint: altered mental status History of present illness: This 63-year-old left-handed white female omitted 01/17/18 after having been found unresponsive in the bathroom by family. Blood pressure and oxygen were low and she was intubated. She had a history of use of methamphetamine nasally up to admission and smokes at least one pack per day but no alcohol. She has a pacemaker and echo previously has shown low ejection fraction and she is thought to have sepsis. EEG which I ordered shows some slowing in the centrotemporal and parietal regions bilaterally that is intermittent. There is lots of motion artifact. No epileptiform activity was seen. Past History Past Medical History: other (unable to obtain ) Past Surgical History: Other (pacemaker) Social history: smoking, other (nasal methamphetamine frequently per daughter). denies: alcohol abuse (1 pack per day) Family history: hypertension (both parents), other (no history of seizures). denies: stroke Medications and Allergies Allergies Allergy/AdvReac Type Severity Reaction Status Date / Time Penicillins Allergy Hives Verified 01/17/18 15:27 Home Medications Medication Instructions Recorded Confirmed Last Taken Type Lisinopril 40 mg PO DAILY 01/17/18 01/17/18 Unknown History Active Meds: Active Medications Acetaminophen (Tylenol) 650 mg FEEDTUBE Q6H PRN PRN Reason: Pain MILD(1-3)/Fever >100.5/WHEELER Last Admin: 01/20/18 11:50 Dose: 650 mg Albuterol (Proventil) 2.5 mg IH Q4HRT PRN PRN Reason: Shortness Of Breath Albuterol/Ipratropium (Duoneb *Not For Prn Use*) 1 ampul IH Q6HRT [facility] Last Admin: 01/27/18 19:45 Dose: 1 ampul Lipase/Protease/Amylase (Mackenzie Jarrell 10,500 Unit) 1 each FEEDTUBE PRN PRN PRN Reason: For Clogged Feeding Tube Apixaban (Eliquis) 2.5 mg FEEDTUBE BID [facility] Last Admin: 01/27/18 09:02 Dose: 2.5 mg Dextrose (D50w (25gm) Syringe) 50 ml IV PRN PRN PRN Reason: Hypoglycemia Famotidine (Pepcid) 20 mg PO DAILY [facility] Last Admin: 01/27/18 09:02 Dose: 20 mg Hydralazine HCl (Apresoline) 10 mg IV Q4H PRN PRN Reason: Hypertension Hydromorphone HCl (Dilaudid) 0.5 mg IV Q3H PRN PRN Reason: Pain , Severe (7-10) Last Admin: 01/27/18 18:24 Dose: 0.5 mg Hydrophilic Ointment (Vaseline Lip Therapy) 1 applic TP Q2HR PRN PRN Reason: Dry Lips Sodium Chloride (Nacl 0.9%) 100 mls @ 999 mls/hr IV PAYAL PRN PRN Reason: Hypotension Sodium Chloride (Nacl 0.9%) 100 mls @ 999 mls/hr IV PAYAL PRN PRN Reason: Hypotension Levofloxacin/Dextrose (Levaquin 750mg/150ml) 750 mg in 150 mls @ 100 mls/hr IV Q48H [facility]; Protocol Last Admin: 01/27/18 17:43 Dose: 100 mls/hr Metronidazole (Flagyl 500 Mg/100 Ml) 500 mg in 100 mls @ 100 mls/hr IV Q8H [facility] Last Admin: 01/27/18 17:07 Dose: 100 mls/hr Insulin Human Lispro (Humalog) 0 unit SUB-Q Q6HR [facility]; Protocol Last Admin: 01/27/18 17:43 Dose: Not Given Metoclopramide HCl (Reglan) 10 mg IV Q6H PRN PRN Reason: Nausea And Vomiting Last Admin: 01/22/18 11:42 Dose: 10 mg Metoprolol Tartrate (Lopressor) 2.5 mg IV Q6HR [facility] Last Admin: 01/27/18 17:02 Dose: Not Given Morphine Sulfate (Morphine) 2 mg IV Q4H PRN PRN Reason: Pain, Moderate (4-6) Last Admin: 01/23/18 22:10 Dose: 2 mg Multi-Ingred Cream/Lotion/Oil/Oint (Artificial Tears Ophth Oint) 1 applic OU Q4HR PRN PRN Reason: Dry Eye(s) Last Admin: 01/19/18 17:41 Dose: 1 applic Prednisone (Deltasone) 40 mg PO QDAY [facility] Last Admin: 01/27/18 09:02 Dose: 40 mg Quetiapine Fumarate (Seroquel) 200 mg PO QHS RIGOBERTO Simple Syrup (Simple Syrup) 15 ml FEEDTUBE PRN PRN PRN Reason: Hypoglycemia Simple Syrup (Simple Syrup) 30 ml FEEDTUBE PRN PRN PRN Reason: Hypoglycemia Sodium Bicarbonate (Sodium Bicarbonate) 325 mg FEEDTUBE PRN PRN PRN Reason: For Clogged Feeding Tube Sodium Chloride (Nacl 0.9% 500 Ml) 1 ml IV DIRECT RIGOBERTO Sodium Chloride (Sodium Chloride Flush Syringe 10 Ml) 10 ml IV BID RIGOBERTO Last Admin: 01/27/18 09:02 Dose: 10 ml Sodium Chloride (Sodium Chloride Flush Syringe 10 Ml) 10 ml IV PRN PRN PRN Reason: LINE FLUSH Last Admin: 01/23/18 02:18 Dose: 10 ml Review of Systems All systems: negative (no headaches or dizziness. Some snoring but no pauses noted and not sleepy driving. No memory problems her daughter.) Physical Examination - Vital Signs Vital Signs: Vital Signs Pulse Resp BP 95 H 25 H 78/42 01/17/18 15:15 01/17/18 15:15 01/17/18 15:15 - Physical Exam Narrative exam: General Appearance: well developed but obese (per BMI) early 60s white female in [facility], intubated orally. HEENT: atraumatic, normocephalic; no bruits, 2+ Nathalie without soreness or induration or enlargement, sclerae nonicteric. Oropharynx pink and moist. Neck: supple, no bruits. Heart: no murmur but sounds are distant. Extremities: no clubbing, cyanosis or edema but dusky fingers and toes with possibly some gangrene. No posterior tibial or dorsalis pedis pulses on either side. Neurologic Exam: Mental Status: Awake, alert, oriented to being at home according to her mounting but cannot identify the month and nods yes for the year being 2016. Cannot identify President by multiple choice. Cannot do further testing. Cranial Nerves: cornell full, cannot see fundi due to lack of cooperation, SVPs present, PERRL, EOMs full without nystagmus or diplopia, facial sensation intact to pinprick, no facial weakness, Messina is midline, gags are absent, shoulder shrug cannot be tested due to lack of cooperation, tongue protrudes midline. Cerebellar: finger to nose and heel to pitts cannot be done due to weakness. Sensory: intact to light touch and vibrations, pinprick is diminished below the knees. Cannot assess double simultaneous stimulation. Motor Exam Upper Extremities: Cannot hold her arms off the bed but tribal delegate 4+ right and 3+ left. Mis intact. Tone is normal. No atrophy or fasciculations are noted visually. Motor Exam Lower Extremities: Cannot lift legs off the bed even with knee support but wiggles toes of both feet to command. Mis intact. Tone is normal. No atrophy or fasciculations are noted visually. Reflexes: Palmomental and jaw jerk are negative but snout is slightly positive. Triceps are trace, biceps are 0 right and 1 left and brachioradialis are trace right and 1 left bilaterally. Baljinder's is negative bilaterally. Knee jerks are trace to 1 right and trace left and ankle jerks are 0 bilaterally without clonus. Toes are downgoing right and slightly upgoing left to Babinski testing. Results - Laboratory Findings CBC and BMP: 01/27/18 05:20 01/27/18 05:20 Abnormal Lab Findings: Abnormal Labs 01/17/18 01/17/18 01/17/18 15:25 16:15 16:48 WBC MCH Plt Count Seg Neuts % (Manual) Lymphocytes % (Manual) Monocytes % (Manual) Nucleated RBC % Seg Neutrophils # Man Lymphocytes # (Manual) Monocytes # (Manual) PT INR POC ABG pH 7.099 L POC ABG pCO2 58.9 H POC ABG pO2 149 H VBG pH Sodium Potassium Chloride Carbon Dioxide BUN Creatinine Glucose POC Glucose < 40 L 121 H Hemoglobin A1c Lactic Acid Calcium Total Bilirubin AST ALT Alkaline Phosphatase C-Reactive Protein Total Protein Albumin 01/17/18 01/17/18 01/17/18 16:54 16:54 16:54 WBC MCH Plt Count Seg Neuts % (Manual) 72.0 H Lymphocytes % (Manual) 3.0 L Monocytes % (Manual) Nucleated RBC % Seg Neutrophils # Man Lymphocytes # (Manual) 0.2 L Monocytes # (Manual) PT 18.5 H INR 1.45 H POC ABG pH POC ABG pCO2 POC ABG pO2 VBG pH Sodium 136 L Potassium Chloride 97.8 L Carbon Dioxide 16 L BUN 43 H Creatinine 3.3 H Glucose 121 H POC Glucose Hemoglobin A1c Lactic Acid Calcium 6.7 L Total Bilirubin AST ALT Alkaline Phosphatase C-Reactive Protein Total Protein 4.4 L Albumin 2.3 L 01/17/18 01/17/18 01/17/18 16:54 16:54 17:11 WBC MCH Plt Count Seg Neuts % (Manual) Lymphocytes % (Manual) Monocytes % (Manual) Nucleated RBC % Seg Neutrophils # Man Lymphocytes # (Manual) Monocytes # (Manual) PT INR POC ABG pH POC ABG pCO2 POC ABG pO2 VBG pH 7.273 L Sodium Potassium Chloride Carbon Dioxide BUN Creatinine Glucose POC Glucose Hemoglobin A1c Lactic Acid 4.70 H* 4.30 H* Calcium Total Bilirubin AST ALT Alkaline Phosphatase C-Reactive Protein Total Protein Albumin 01/17/18 01/17/18 01/17/18 18:02 18:15 19:21 WBC MCH Plt Count Seg Neuts % (Manual) Lymphocytes % (Manual) Monocytes % (Manual) Nucleated RBC % Seg Neutrophils # Man Lymphocytes # (Manual) Monocytes # (Manual) PT INR POC ABG pH 7.177 L POC ABG pCO2 POC ABG pO2 VBG pH Sodium Potassium Chloride Carbon Dioxide BUN Creatinine Glucose POC Glucose < 40 L Hemoglobin A1c Lactic Acid 3.00 H* Calcium Total Bilirubin AST ALT Alkaline Phosphatase C-Reactive Protein Total Protein Albumin 01/17/18 01/17/18 01/17/18 22:36 22:36 23:16 WBC MCH Plt Count Seg Neuts % (Manual) Lymphocytes % (Manual) Monocytes % (Manual) Nucleated RBC % Seg Neutrophils # Man Lymphocytes # (Manual) Monocytes # (Manual) PT INR POC ABG pH 7.112 L POC ABG pCO2 50.1 H POC ABG pO2 50 L VBG pH Sodium Potassium Chloride Carbon Dioxide BUN Creatinine Glucose POC Glucose Hemoglobin A1c 9.0 H Lactic Acid 5.50 H* Calcium Total Bilirubin AST ALT Alkaline Phosphatase C-Reactive Protein Total Protein Albumin 01/18/18 01/18/18 01/18/18 01:26 03:21 03:21 WBC MCH Plt Count Seg Neuts % (Manual) 27.0 L Lymphocytes % (Manual) 3.0 L Monocytes % (Manual) 14.0 H Nucleated RBC % Seg Neutrophils # Man Lymphocytes # (Manual) 0.3 L Monocytes # (Manual) 1.4 H PT INR POC ABG pH POC ABG pCO2 POC ABG pO2 VBG pH Sodium Potassium Chloride Carbon Dioxide BUN Creatinine Glucose POC Glucose 107 H Hemoglobin A1c Lactic Acid 8.00 H* Calcium Total Bilirubin AST ALT Alkaline Phosphatase C-Reactive Protein Total Protein Albumin 01/18/18 01/18/18 01/18/18 03:21 04:40 05:07 WBC MCH Plt Count Seg Neuts % (Manual) Lymphocytes % (Manual) Monocytes % (Manual) Nucleated RBC % Seg Neutrophils # Man Lymphocytes # (Manual) Monocytes # (Manual) PT INR POC ABG pH 7.093 L POC ABG pCO2 31.5 L POC ABG pO2 77 L VBG pH Sodium Potassium Chloride 96.9 L Carbon Dioxide 14 L BUN 47 H Creatinine 3.4 H Glucose POC Glucose Hemoglobin A1c Lactic Acid 11.10 H* Calcium 6.4 L Total Bilirubin AST 47 H ALT Alkaline Phosphatase C-Reactive Protein Total Protein 4.3 L Albumin 2.4 L 01/18/18 01/18/18 01/18/18 06:29 07:06 11:44 WBC MCH Plt Count Seg Neuts % (Manual) Lymphocytes % (Manual) Monocytes % (Manual) Nucleated RBC % Seg Neutrophils # Man Lymphocytes # (Manual) Monocytes # (Manual) PT INR POC ABG pH POC ABG pCO2 POC ABG pO2 VBG pH Sodium Potassium Chloride Carbon Dioxide BUN Creatinine Glucose POC Glucose 47 L 149 H < 40 L Hemoglobin A1c Lactic Acid Calcium Total Bilirubin AST ALT Alkaline Phosphatase C-Reactive Protein Total Protein Albumin 01/18/18 01/18/18 01/18/18 11:46 14:15 18:01 WBC MCH Plt Count Seg Neuts % (Manual) Lymphocytes % (Manual) Monocytes % (Manual) Nucleated RBC % Seg Neutrophils # Man Lymphocytes # (Manual) Monocytes # (Manual) PT INR POC ABG pH POC ABG pCO2 POC ABG pO2 VBG pH Sodium Potassium Chloride Carbon Dioxide BUN Creatinine Glucose POC Glucose 116 H < 40 L Hemoglobin A1c Lactic Acid 10.00 H* Calcium Total Bilirubin AST ALT Alkaline Phosphatase C-Reactive Protein Total Protein Albumin 01/18/18 01/18/18 01/18/18 18:02 23:25 23:27 WBC MCH Plt Count Seg Neuts % (Manual) Lymphocytes % (Manual) Monocytes % (Manual) Nucleated RBC % Seg Neutrophils # Man Lymphocytes # (Manual) Monocytes # (Manual) PT INR POC ABG pH POC ABG pCO2 POC ABG pO2 VBG pH Sodium Potassium Chloride Carbon Dioxide BUN Creatinine Glucose POC Glucose 136 H < 40 L < 40 L Hemoglobin A1c Lactic Acid Calcium Total Bilirubin AST ALT Alkaline Phosphatase C-Reactive Protein Total Protein Albumin 01/19/18 01/19/18 01/19/18 04:02 06:50 06:50 WBC 18.5 H MCH Plt Count 136 L Seg Neuts % (Manual) 86.0 H Lymphocytes % (Manual) 4.0 L Monocytes % (Manual) Nucleated RBC % Seg Neutrophils # Man 15.9 H Lymphocytes # (Manual) 0.7 L Monocytes # (Manual) 1.1 H PT 21.3 H INR 1.73 H POC ABG pH POC ABG pCO2 28.3 L POC ABG pO2 57 L VBG pH Sodium Potassium Chloride Carbon Dioxide BUN Creatinine Glucose POC Glucose Hemoglobin A1c Lactic Acid Calcium Total Bilirubin AST ALT Alkaline Phosphatase C-Reactive Protein Total Protein Albumin 01/19/18 01/19/18 01/19/18 06:50 08:45 11:17 WBC MCH Plt Count Seg Neuts % (Manual) Lymphocytes % (Manual) Monocytes % (Manual) Nucleated RBC % Seg Neutrophils # Man Lymphocytes # (Manual) Monocytes # (Manual) PT INR POC ABG pH POC ABG pCO2 POC ABG pO2 VBG pH Sodium 135 L Potassium Chloride 92.8 L Carbon Dioxide 19 L BUN 31 H Creatinine 2.6 H Glucose POC Glucose 110 H Hemoglobin A1c Lactic Acid 7.90 H* Calcium 7.1 L Total Bilirubin 1.60 H AST 2526 H ALT 1187 H Alkaline Phosphatase 133 H C-Reactive Protein Total Protein 4.8 L Albumin 2.0 L 01/19/18 01/19/18 01/19/18 11:31 22:12 23:34 WBC MCH Plt Count Seg Neuts % (Manual) Lymphocytes % (Manual) Monocytes % (Manual) Nucleated RBC % Seg Neutrophils # Man Lymphocytes # (Manual) Monocytes # (Manual) PT INR POC ABG pH POC ABG pCO2 31.6 L POC ABG pO2 59 L VBG pH Sodium Potassium Chloride Carbon Dioxide BUN Creatinine Glucose POC Glucose 131 H 53 L Hemoglobin A1c Lactic Acid Calcium Total Bilirubin AST ALT Alkaline Phosphatase C-Reactive Protein Total Protein Albumin 01/20/18 01/20/18 01/20/18 05:18 05:18 05:19 WBC 19.7 H MCH 27 L Plt Count 84 L Seg Neuts % (Manual) 84.0 H Lymphocytes % (Manual) 2.0 L Monocytes % (Manual) 8.0 H Nucleated RBC % Seg Neutrophils # Man 16.5 H Lymphocytes # (Manual) 0.4 L Monocytes # (Manual) 1.6 H PT INR POC ABG pH POC ABG pCO2 POC ABG pO2 VBG pH Sodium 136 L Potassium Chloride 96.9 L Carbon Dioxide 17 L BUN 65 H Creatinine 4.1 H D Glucose 104 H POC Glucose 125 H Hemoglobin A1c Lactic Acid Calcium 7.1 L Total Bilirubin 1.60 H AST 1702 H ALT 1141 H Alkaline Phosphatase 172 H C-Reactive Protein Total Protein 5.0 L Albumin 1.7 L 01/20/18 01/20/18 01/20/18 07:00 11:48 13:54 WBC MCH Plt Count Seg Neuts % (Manual) Lymphocytes % (Manual) Monocytes % (Manual) Nucleated RBC % Seg Neutrophils # Man Lymphocytes # (Manual) Monocytes # (Manual) PT 17.5 H INR 1.35 H POC ABG pH POC ABG pCO2 POC ABG pO2 VBG pH Sodium Potassium Chloride Carbon Dioxide BUN Creatinine Glucose POC Glucose 109 H Hemoglobin A1c Lactic Acid Calcium Total Bilirubin AST ALT Alkaline Phosphatase C-Reactive Protein 37.50 H Total Protein Albumin 01/20/18 01/20/18 01/20/18 17:28 17:51 20:50 WBC MCH Plt Count Seg Neuts % (Manual) Lymphocytes % (Manual) Monocytes % (Manual) Nucleated RBC % Seg Neutrophils # Man Lymphocytes # (Manual) Monocytes # (Manual) PT INR POC ABG pH POC ABG pCO2 POC ABG pO2 VBG pH Sodium Potassium Chloride Carbon Dioxide BUN Creatinine Glucose POC Glucose 140 H Hemoglobin A1c Lactic Acid 2.70 H* 2.30 H* Calcium Total Bilirubin AST ALT Alkaline Phosphatase C-Reactive Protein Total Protein Albumin 01/20/18 01/20/18 01/21/18 23:55 Unknown 00:12 WBC MCH Plt Count Seg Neuts % (Manual) Lymphocytes % (Manual) Monocytes % (Manual) Nucleated RBC % Seg Neutrophils # Man Lymphocytes # (Manual) Monocytes # (Manual) PT INR POC ABG pH POC ABG pCO2 POC ABG pO2 VBG pH Sodium Potassium Chloride Carbon Dioxide BUN Creatinine Glucose POC Glucose 149 H 134 H Hemoglobin A1c Lactic Acid 2.50 H* Calcium Total Bilirubin AST ALT Alkaline Phosphatase C-Reactive Protein Total Protein Albumin 01/21/18 01/21/18 01/21/18 04:27 05:00 05:00 WBC 21.7 H MCH 27 L Plt Count 67 L Seg Neuts % (Manual) 71.0 H Lymphocytes % (Manual) 9.0 L Monocytes % (Manual) Nucleated RBC % 4.0 H Seg Neutrophils # Man 15.4 H Lymphocytes # (Manual) Monocytes # (Manual) PT INR POC ABG pH POC ABG pCO2 33.8 L POC ABG pO2 72 L VBG pH Sodium Potassium Chloride Carbon Dioxide 21 L BUN 71 H Creatinine 4.1 H Glucose 149 H POC Glucose Hemoglobin A1c Lactic Acid Calcium 7.5 L Total Bilirubin AST 494 H ALT 780 H Alkaline Phosphatase 151 H C-Reactive Protein Total Protein 4.9 L Albumin 1.9 L 01/21/18 01/21/18 01/21/18 05:00 05:18 12:20 WBC MCH Plt Count Seg Neuts % (Manual) Lymphocytes % (Manual) Monocytes % (Manual) Nucleated RBC % Seg Neutrophils # Man Lymphocytes # (Manual) Monocytes # (Manual) PT INR POC ABG pH POC ABG pCO2 POC ABG pO2 VBG pH Sodium Potassium Chloride Carbon Dioxide BUN Creatinine Glucose POC Glucose 132 H 158 H Hemoglobin A1c Lactic Acid 2.10 H* Calcium Total Bilirubin AST ALT Alkaline Phosphatase C-Reactive Protein Total Protein Albumin 01/21/18 01/21/18 01/22/18 18:07 23:40 03:48 WBC MCH Plt Count Seg Neuts % (Manual) Lymphocytes % (Manual) Monocytes % (Manual) Nucleated RBC % Seg Neutrophils # Man Lymphocytes # (Manual) Monocytes # (Manual) PT INR POC ABG pH POC ABG pCO2 POC ABG pO2 65 L VBG pH Sodium Potassium Chloride Carbon Dioxide BUN Creatinine Glucose POC Glucose 143 H 136 H Hemoglobin A1c Lactic Acid Calcium Total Bilirubin AST ALT Alkaline Phosphatase C-Reactive Protein Total Protein Albumin 01/22/18 01/22/18 01/22/18 04:10 04:10 05:56 WBC 24.9 H MCH 27 L Plt Count 80 L Seg Neuts % (Manual) Lymphocytes % (Manual) Monocytes % (Manual) Nucleated RBC % Seg Neutrophils # Man Lymphocytes # (Manual) Monocytes # (Manual) PT INR POC ABG pH POC ABG pCO2 POC ABG pO2 VBG pH Sodium Potassium Chloride 97.7 L Carbon Dioxide BUN 72 H Creatinine 3.6 H Glucose 145 H POC Glucose 139 H Hemoglobin A1c Lactic Acid Calcium 7.3 L Total Bilirubin AST 146 H ALT 547 H Alkaline Phosphatase C-Reactive Protein Total Protein 5.2 L Albumin 2.3 L 01/22/18 01/22/18 01/23/18 11:30 17:41 00:00 WBC MCH Plt Count Seg Neuts % (Manual) Lymphocytes % (Manual) Monocytes % (Manual) Nucleated RBC % Seg Neutrophils # Man Lymphocytes # (Manual) Monocytes # (Manual) PT INR POC ABG pH POC ABG pCO2 POC ABG pO2 VBG pH Sodium Potassium Chloride Carbon Dioxide BUN Creatinine Glucose POC Glucose 156 H 185 H 150 H Hemoglobin A1c Lactic Acid Calcium Total Bilirubin AST ALT Alkaline Phosphatase C-Reactive Protein Total Protein Albumin 01/23/18 01/23/18 01/23/18 04:39 05:24 11:38 WBC MCH Plt Count Seg Neuts % (Manual) Lymphocytes % (Manual) Monocytes % (Manual) Nucleated RBC % Seg Neutrophils # Man Lymphocytes # (Manual) Monocytes # (Manual) PT INR POC ABG pH POC ABG pCO2 31.9 L POC ABG pO2 62 L VBG pH Sodium Potassium Chloride Carbon Dioxide BUN Creatinine Glucose POC Glucose 215 H 182 H Hemoglobin A1c Lactic Acid Calcium Total Bilirubin AST ALT Alkaline Phosphatase C-Reactive Protein Total Protein Albumin 01/23/18 01/23/18 01/24/18 14:20 17:26 00:10 WBC MCH Plt Count Seg Neuts % (Manual) Lymphocytes % (Manual) Monocytes % (Manual) Nucleated RBC % Seg Neutrophils # Man Lymphocytes # (Manual) Monocytes # (Manual) PT INR POC ABG pH POC ABG pCO2 31.4 L POC ABG pO2 55 L VBG pH Sodium Potassium Chloride Carbon Dioxide BUN Creatinine Glucose POC Glucose 252 H 225 H Hemoglobin A1c Lactic Acid Calcium Total Bilirubin AST ALT Alkaline Phosphatase C-Reactive Protein Total Protein Albumin 01/24/18 01/24/18 01/24/18 03:40 03:40 06:06 WBC 34.5 H MCH 27 L Plt Count 130 L Seg Neuts % (Manual) Lymphocytes % (Manual) Monocytes % (Manual) Nucleated RBC % Seg Neutrophils # Man Lymphocytes # (Manual) Monocytes # (Manual) PT INR POC ABG pH POC ABG pCO2 POC ABG pO2 VBG pH Sodium Potassium 5.7 H D Chloride 95.6 L Carbon Dioxide 20 L BUN 96 H Creatinine 4.2 H Glucose 166 H POC Glucose 162 H Hemoglobin A1c Lactic Acid Calcium 7.3 L Total Bilirubin AST 52 H ALT 235 H Alkaline Phosphatase C-Reactive Protein Total Protein 5.1 L Albumin 2.5 L 01/24/18 01/24/18 01/24/18 11:36 15:08 17:32 WBC MCH Plt Count Seg Neuts % (Manual) Lymphocytes % (Manual) Monocytes % (Manual) Nucleated RBC % Seg Neutrophils # Man Lymphocytes # (Manual) Monocytes # (Manual) PT INR POC ABG pH POC ABG pCO2 POC ABG pO2 VBG pH Sodium Potassium Chloride Carbon Dioxide BUN Creatinine Glucose POC Glucose 160 H 160 H Hemoglobin A1c Lactic Acid Calcium Total Bilirubin AST ALT Alkaline Phosphatase C-Reactive Protein 3.30 H Total Protein Albumin 01/25/18 01/25/18 01/25/18 00:04 04:34 05:25 WBC MCH Plt Count Seg Neuts % (Manual) Lymphocytes % (Manual) Monocytes % (Manual) Nucleated RBC % Seg Neutrophils # Man Lymphocytes # (Manual) Monocytes # (Manual) PT INR POC ABG pH 7.342 L POC ABG pCO2 48.7 H POC ABG pO2 VBG pH Sodium Potassium Chloride Carbon Dioxide BUN Creatinine Glucose POC Glucose 169 H 133 H Hemoglobin A1c Lactic Acid Calcium Total Bilirubin AST ALT Alkaline Phosphatase C-Reactive Protein Total Protein Albumin 01/25/18 01/25/18 01/25/18 11:46 17:42 23:50 WBC MCH Plt Count Seg Neuts % (Manual) Lymphocytes % (Manual) Monocytes % (Manual) Nucleated RBC % Seg Neutrophils # Man Lymphocytes # (Manual) Monocytes # (Manual) PT INR POC ABG pH POC ABG pCO2 POC ABG pO2 VBG pH Sodium Potassium Chloride Carbon Dioxide BUN Creatinine Glucose POC Glucose 121 H 150 H 149 H Hemoglobin A1c Lactic Acid Calcium Total Bilirubin AST ALT Alkaline Phosphatase C-Reactive Protein Total Protein Albumin 01/26/18 01/26/18 01/26/18 04:13 05:25 06:20 WBC 21.0 H MCH Plt Count Seg Neuts % (Manual) 95.0 H Lymphocytes % (Manual) 1.0 L Monocytes % (Manual) Nucleated RBC % Seg Neutrophils # Man 20.0 H Lymphocytes # (Manual) 0.2 L Monocytes # (Manual) PT INR POC ABG pH POC ABG pCO2 POC ABG pO2 70 L VBG pH Sodium Potassium Chloride Carbon Dioxide BUN Creatinine Glucose POC Glucose 107 H Hemoglobin A1c Lactic Acid Calcium Total Bilirubin AST ALT Alkaline Phosphatase C-Reactive Protein Total Protein Albumin 01/26/18 01/26/18 01/26/18 06:20 12:19 18:09 WBC MCH Plt Count Seg Neuts % (Manual) Lymphocytes % (Manual) Monocytes % (Manual) Nucleated RBC % Seg Neutrophils # Man Lymphocytes # (Manual) Monocytes # (Manual) PT INR POC ABG pH POC ABG pCO2 POC ABG pO2 VBG pH Sodium Potassium 5.9 H Chloride 95.7 L Carbon Dioxide BUN 102 H Creatinine 4.6 H Glucose POC Glucose 151 H 110 H Hemoglobin A1c Lactic Acid Calcium 6.6 L Total Bilirubin AST ALT Alkaline Phosphatase C-Reactive Protein Total Protein Albumin 01/27/18 01/27/18 01/27/18 00:17 05:20 05:20 WBC 23.3 H MCH 27 L Plt Count Seg Neuts % (Manual) 97.0 H Lymphocytes % (Manual) 0 L Monocytes % (Manual) Nucleated RBC % Seg Neutrophils # Man 22.6 H Lymphocytes # (Manual) 0.0 L Monocytes # (Manual) PT INR POC ABG pH POC ABG pCO2 POC ABG pO2 VBG pH Sodium Potassium 5.7 H Chloride 93.9 L Carbon Dioxide 21 L BUN 121 H Creatinine 5.2 H Glucose 131 H POC Glucose 159 H Hemoglobin A1c Lactic Acid Calcium 6.1 L Total Bilirubin AST ALT Alkaline Phosphatase C-Reactive Protein Total Protein Albumin 01/27/18 01/27/18 01/27/18 05:43 12:16 17:32 WBC MCH Plt Count Seg Neuts % (Manual) Lymphocytes % (Manual) Monocytes % (Manual) Nucleated RBC % Seg Neutrophils # Man Lymphocytes # (Manual) Monocytes # (Manual) PT INR POC ABG pH POC ABG pCO2 POC ABG pO2 VBG pH Sodium Potassium Chloride Carbon Dioxide BUN Creatinine Glucose POC Glucose 121 H 161 H 146 H Hemoglobin A1c Lactic Acid Calcium Total Bilirubin AST ALT Alkaline Phosphatase C-Reactive Protein Total Protein Albumin Assessment and Plan Impression: 1. Hypoxic ischemic encephalopathy Plan: 1. Reviewed CT showing moderate cerebral atrophy but a lot of noise. Pending her clinical course, should be repeated without contrast. 2. Will sign off since seeming to improve slowly. Call us to reevaluate her once extubated and off sedation if not improved to baseline. 35 minutes critical care time spent with this patient. Thank you for an interesting consultation on this unfortunate early 60s lady.
[2018-01-28] MEDS: DILAUDID IV PRN ×3 (00:18→20:57)
[2018-01-28] MEDS: ELIQUIS FEEDTUBE SCH ×3 (00:19→22:59)
[2018-01-28] MEDS: SODIUM CHLORIDE FLUSH SYRINGE 10 ML IV SCH ×2 (00:20→23:00)
[2018-01-28] MEDS: HumaLOG SUB-Q SCH ×3 (00:20→16:57)
[2018-01-28] MEDS: LOPRESSOR IV SCH ×4 (00:20→17:30)
[2018-01-28] MEDS: DUONEB *Not for PRN Use IH SCH ×4 (01:44→20:27)
[2018-01-28] MEDS: FLAGYL 500 MG/100 ML 500 MG/100 ML BAG IV SCH ×3 (02:00→17:41)
[2018-01-28 07:32] LABS: Calcium 6.4 mg/dL (8.4-10.2)
[2018-01-28 08:12] LABS: Hematocrit 32.6 % (30.3-42.9); Hemoglobin 10.7 gm/dl (10.1-14.3); Mean Corpuscular HGB Conc 33 % (30-34); Mean Corpuscular Hemoglobin 28 pg (28-32); Mean Corpuscular Volume 84 fl (79-97); Platelet Count 294 K/mm3 (140-440); Red Blood Count 3.87 M/mm3 (3.65-5.03); Red Cell Distribution Width 14.9 % (13.2-15.2)
--- NOTE | 2018-01-28 08:33 | Progress Note ---
Assessment and Plan Assessment: 1) Severe sepsis with septic shock and MODS: shock resolved, fever resolved and still leukocytosis 24-->34-->23-->24K. Etiology most likely unclear. DDx: pneumonia ? pelvic collections? PE. CRP=37 -blood cx negative -legs US neg for DVT 2) Acute respiratory failure - better 3) Presumed pneumonia with large left pleural effusion: -repeat CXR - decreased effusion -TA no growth 4) JANESSA: on HD 5) Presumed ? drug abuse 6) DM-poorly controlled 7) Bilateral fingers ischemic changes: from pressors ? 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 flushing ? zosyn allergy 11) Acute encephalopathy 12) Pelvic collections x 3: ? etiology -CT showed non obstructed left kidney stones, large left pelvic cyst 8.8 x 5.7 cm, LLL atelectasis minimal pleural effusion 13) Penicillin allergy Plan: -continue levaquin and flagyl - day 6 (day 12 counting previous abx) -monitor leukocytosis -consider IR eval to drain large left pelvic cyst 8.8 x 5.7 cm Thank you for your consultation, will follow up with you. . Michaela Parekh MD Infectious Diseases Specialist [facility] ([facility] M [phone] O [phone] Subjective Date of service: 01/28/18 Principal diagnosis: Acute hypoxic respiratory failure, severe sepsis with shock , encephalopathy Interval history: Remains intubated, sedated, no fever, alert following commands Microbiology: Blood cultures: 01/17 neg 01/20 ngtd Urine cultures: Respiratory cultures: TA 01/17 ngtd / Gram stain - many GPC in chains Current Antimicrobials: levaquin 01/23 flagyl 01/23 Previous Antimicrobials: Zosyn 01/18 Vancomycin 01/18 Objective - Exam Narrative Exam: General appearance: sedated on the vent, alert eyes opening Eyes: anicteric sclerae, moist conjunctivae; no lid-lag; PERRLA HENT: Atraumatic; oropharynx clear +ETT +NGT Neck: Trachea midline; supple, no thyromegaly or lymphadenopathy Lungs: juan rhonchi CV: tachy Abdomen: Soft, non-tender; distended Extremities: No peripheral edema or extremity lymphadenopathy Skin: . +bilateral hands, multiple fingers and sole and toes necrotic changes Psych: sedated Neuro: sedated Lines: right fem vascath, right IJ TLC - Constitutional Vitals: Vital Signs Temp Pulse Resp BP Pulse Ox 97.7 F 95 H 15 79/43 99 01/28/18 08:00 01/28/18 07:50 01/28/18 07:50 01/28/18 07:38 01/28/18 07:38 Temperature -Last 24 Hours Temperature 97.7 F Temperature 98.9 F Temperature 99.0 F Temperature 98.8 F Temperature 98.0 F Temperature 98.0 F Temperature 98.0 F Temperature 97.4 F - Labs CBC & Chem 7: 01/28/18 06:30 01/28/18 06:30 Labs: Abnormal lab results 01/27/18 01/27/18 01/28/18 Range/Units 12:16 17:32 00:05 WBC (4.5-11.0) K/mm3 POC ABG pO2 (80-105) Chloride (98-107) mmol/L BUN (7-17) mg/dL Creatinine (0.7-1.2) mg/dL Glucose (65-100) mg/dL POC Glucose 161 H 146 H 128 H (70-105) Calcium (8.4-10.2) mg/dL 01/28/18 01/28/18 01/28/18 Range/Units 04:24 05:43 06:30 WBC 24.8 H (4.5-11.0) K/mm3 POC ABG pO2 77 L (80-105) Chloride (98-107) mmol/L BUN (7-17) mg/dL Creatinine (0.7-1.2) mg/dL Glucose (65-100) mg/dL POC Glucose 137 H (70-105) Calcium (8.4-10.2) mg/dL 01/28/18 Range/Units 06:30 WBC (4.5-11.0) K/mm3 POC ABG pO2 (80-105) Chloride 95.2 L (98-107) mmol/L BUN 70 H (7-17) mg/dL Creatinine 3.7 H (0.7-1.2) mg/dL Glucose 135 H (65-100) mg/dL POC Glucose (70-105) Calcium 6.4 L (8.4-10.2) mg/dL
--- NOTE | 2018-01-28 09:14 | Progress Note ---
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 History of cocaine abuse, Acute encephalopathy Lactic acidosis Fevers..cultures pending Thrombocytopenia Pleural efffusion -Continue with mechanical ventilatory support - continue daily SBT's trials as tolerated - Small effusion and clinically improving - continue seroquel re: delirium - VAP bundle addressed - continue daily SATs - HD/UF per nephrology for toxin and volume clearance - continue VTE prophylaxis with eliquis (sent HIT assay); platelet count improving - trend CRP & lactate (Significantly improved) - continue steroid taper - continue stress ulcer prophylaxis - continue Empiric antibiotics, plan to de-escalate per ID recs - continue supplemental oxygen to wean for oxygen saturations >90% - Wean vasopressor support for MAP>65 - continue Lung protective strategies, ARDS-net protocol - continue other care per attending/other consultants ....remains critically ill on MVS and at high risk for further deterioration including ...35' CCT -Daughter updated Subjective Date of service: 01/28/18 Principal diagnosis: Acute hypoxic respiratory failure, severe sepsis with shock , encephalopathy Interval history: Patient seen today for: Seen and examined at bedside; 24-hour events reviewed; nursing and respiratory care staff consulted; no adverse overnight events reported to me; Reamins afebrile Femoral vasc cath in place. RIJ CVC, getting HD Fentanyl infusion is off. Off vasopressors Not tolerating PSV today. I got a CXR which shows a pneumothorax...IR to place a right pleural drain Objective - Exam Narrative Exam: HEENT: Oral mucosa moist no pallor or icterus, orally intubated Neck: Supple no JVD Chest: bilateral coarse breath sounds diminished at lung bases CVS: Regular rate and rhythm S1 and S2 heard Abdomen: Soft nontender no suprapubic masses no organomegaly appreciable Extremity: Dry skin less than 1+ peripheral edema Musculoskeletal: No joint effusion noted in knees and ankle Neurological: encephalopathic Dermatology: No petechial rashes Psychiatry: No evidence of any agitation and aggression noted Vital Signs - 12hr 01/27/18 01/27/18 01/27/18 21:15 21:30 21:45 Temperature Pulse Rate 77 74 81 Pulse Rate [ Anterior Bilateral Throughout] Pulse Rate [ From Monitor] Respiratory 22 19 20 Rate Respiratory Rate [Anterior Bilateral Throughout] Blood Pressure 87/50 101/59 98/57 O2 Sat by Pulse 99 99 100 Oximetry 01/27/18 01/27/18 01/27/18 22:00 22:15 22:30 Temperature Pulse Rate 101 H 74 80 Pulse Rate [ Anterior Bilateral Throughout] Pulse Rate [ 102 H From Monitor] Respiratory 16 13 19 Rate Respiratory Rate [Anterior Bilateral Throughout] Blood Pressure 104/59 103/55 100/60 O2 Sat by Pulse 100 100 99 Oximetry 01/27/18 01/27/18 01/27/18 22:45 22:55 23:00 Temperature Pulse Rate 81 77 77 Pulse Rate [ Anterior Bilateral Throughout] Pulse Rate [ From Monitor] Respiratory 19 17 16 Rate Respiratory Rate [Anterior Bilateral Throughout] Blood Pressure 93/57 93/57 90/53 O2 Sat by Pulse 100 100 99 Oximetry 01/27/18 01/27/18 01/27/18 23:15 23:31 23:45 Temperature Pulse Rate 77 107 H 102 H Pulse Rate [ Anterior Bilateral Throughout] Pulse Rate [ From Monitor] Respiratory 17 21 11 L Rate Respiratory Rate [Anterior Bilateral Throughout] Blood Pressure 106/55 139/90 153/90 O2 Sat by Pulse 99 97 95 Oximetry 01/27/18 01/28/18 01/28/18 23:46 00:00 00:15 Temperature 99.0 F Pulse Rate 106 H 96 H 90 Pulse Rate [ Anterior Bilateral Throughout] Pulse Rate [ 102 H From Monitor] Respiratory 23 22 Rate Respiratory Rate [Anterior Bilateral Throughout] Blood Pressure 106/55 143/80 105/62 O2 Sat by Pulse 98 94 91 Oximetry 01/28/18 01/28/18 01/28/18 00:20 00:30 00:45 Temperature Pulse Rate 92 H 81 75 Pulse Rate [ Anterior Bilateral Throughout] Pulse Rate [ From Monitor] Respiratory 19 18 Rate Respiratory Rate [Anterior Bilateral Throughout] Blood Pressure 105/62 90/56 85/51 O2 Sat by Pulse 95 92 Oximetry 01/28/18 01/28/18 01/28/18 01:00 01:15 01:30 Temperature Pulse Rate 75 73 74 Pulse Rate [ Anterior Bilateral Throughout] Pulse Rate [ From Monitor] Respiratory 18 16 15 Rate Respiratory Rate [Anterior Bilateral Throughout] Blood Pressure 90/49 85/51 79/42 O2 Sat by Pulse 84 88 91 Oximetry 01/28/18 01/28/18 01/28/18 01:44 01:45 02:00 Temperature Pulse Rate 80 75 Pulse Rate [ 79 81 Anterior Bilateral Throughout] Pulse Rate [ 101 H From Monitor] Respiratory 14 14 Rate Respiratory 14 14 Rate [Anterior Bilateral Throughout] Blood Pressure 79/42 69/41 O2 Sat by Pulse 99 Oximetry 01/28/18 01/28/18 01/28/18 02:15 02:31 02:45 Temperature Pulse Rate 83 91 H 95 H Pulse Rate [ Anterior Bilateral Throughout] Pulse Rate [ From Monitor] Respiratory 15 15 18 Rate Respiratory Rate [Anterior Bilateral Throughout] Blood Pressure 84/50 144/72 144/72 O2 Sat by Pulse 97 97 99 Oximetry 01/28/18 01/28/18 01/28/18 03:00 03:15 03:30 Temperature Pulse Rate 75 89 89 Pulse Rate [ Anterior Bilateral Throughout] Pulse Rate [ From Monitor] Respiratory 22 13 24 Rate Respiratory Rate [Anterior Bilateral Throughout] Blood Pressure 114/63 114/63 125/61 O2 Sat by Pulse 97 96 Oximetry 01/28/18 01/28/18 01/28/18 03:45 04:00 04:15 Temperature 98.9 F Pulse Rate 85 91 H 83 Pulse Rate [ Anterior Bilateral Throughout] Pulse Rate [ 94 H From Monitor] Respiratory 21 22 20 Rate Respiratory Rate [Anterior Bilateral Throughout] Blood Pressure 125/61 94/52 125/61 O2 Sat by Pulse 97 98 98 Oximetry 01/28/18 01/28/18 01/28/18 04:18 04:30 04:45 Temperature Pulse Rate 83 90 89 Pulse Rate [ Anterior Bilateral Throughout] Pulse Rate [ From Monitor] Respiratory 16 21 Rate Respiratory Rate [Anterior Bilateral Throughout] Blood Pressure 94/52 95/57 94/52 O2 Sat by Pulse 97 98 99 Oximetry 01/28/18 01/28/18 01/28/18 05:00 05:15 05:30 Temperature Pulse Rate 91 H 92 H 93 H Pulse Rate [ Anterior Bilateral Throughout] Pulse Rate [ From Monitor] Respiratory 20 22 23 Rate Respiratory Rate [Anterior Bilateral Throughout] Blood Pressure 100/58 100/58 82/55 O2 Sat by Pulse 97 97 98 Oximetry 01/28/18 01/28/18 01/28/18 05:45 06:00 06:15 Temperature Pulse Rate 91 H 96 H 93 H Pulse Rate [ Anterior Bilateral Throughout] Pulse Rate [ 92 H From Monitor] Respiratory 22 26 H 22 Rate Respiratory Rate [Anterior Bilateral Throughout] Blood Pressure 82/55 89/56 82/55 O2 Sat by Pulse 97 97 98 Oximetry 01/28/18 01/28/18 01/28/18 06:30 06:44 06:45 Temperature Pulse Rate 92 H 99 H 90 Pulse Rate [ Anterior Bilateral Throughout] Pulse Rate [ From Monitor] Respiratory 18 25 H Rate Respiratory Rate [Anterior Bilateral Throughout] Blood Pressure 97/52 97/52 89/56 O2 Sat by Pulse 99 Oximetry 01/28/18 01/28/18 01/28/18 07:00 07:15 07:30 Temperature Pulse Rate 96 H 93 H 93 H Pulse Rate [ Anterior Bilateral Throughout] Pulse Rate [ From Monitor] Respiratory 24 15 21 Rate Respiratory Rate [Anterior Bilateral Throughout] Blood Pressure 79/50 78/48 79/43 O2 Sat by Pulse 99 98 99 Oximetry 01/28/18 01/28/18 01/28/18 07:31 07:35 07:38 Temperature Pulse Rate 93 H 95 H 96 H Pulse Rate [ Anterior Bilateral Throughout] Pulse Rate [ From Monitor] Respiratory 39 H Rate Respiratory Rate [Anterior Bilateral Throughout] Blood Pressure 80/42 79/73 79/43 O2 Sat by Pulse 99 97 99 Oximetry 01/28/18 01/28/18 01/28/18 07:40 07:50 08:00 Temperature 97.7 F Pulse Rate Pulse Rate [ 94 H 95 H Anterior Bilateral Throughout] Pulse Rate [ From Monitor] Respiratory Rate Respiratory 25 H 15 Rate [Anterior Bilateral Throughout] Blood Pressure O2 Sat by Pulse Oximetry Constitutional: no acute distress Eyes: non-icteric ENT: oropharynx moist, other (ETT 20 cm MARGOT and advanced to 23cm MARGOT) Neck: supple, no lymphadenopathy, no JVD Effort: mildly labored Ascultation: Bilateral: diminished breath sounds, rales Percussion: Bilateral: not dull Cardiovascular: regular rate and rhythm, other (no rubs or murmurs) Gastrointestinal: normoactive bowel sounds, soft, non-tender, non-distended, other (no [place] HSM) Integumentary: normal Extremities: no cyanosis, no edema, pink and warm, pulses normal Neurologic: non-focal exam (grossly), pupils equal and round, CN II-XII normal, motor strength normal and Psychiatric: other (calm) CBC and BMP: 01/30/18 Unknown 01/30/18 Unknown ABG, PT/INR, D-dimer: ABG POC ABG pH 7.429 (7.35-7.45) 01/28/18 04:24 POC ABG pCO2 39.1 (35-45) 01/28/18 04:24 POC ABG pO2 77 (80-105) L 01/28/18 04:24 POC ABG HCO3 25.9 01/28/18 04:24 POC ABG Total CO2 27 01/28/18 04:24 POC ABG O2 Sat 96 01/28/18 04:24 PT/INR, D-dimer PT 17.5 Sec. (12.2-14.9) H 01/20/18 07:00 INR 1.35 (0.87-1.13) H 01/20/18 07:00 Abnormal lab findings: Abnormal Labs 01/17/18 01/17/18 01/17/18 15:25 16:15 16:48 WBC MCH Plt Count Seg Neuts % (Manual) Lymphocytes % (Manual) Monocytes % (Manual) Nucleated RBC % Seg Neutrophils # Man Lymphocytes # (Manual) Monocytes # (Manual) PT INR POC ABG pH 7.099 L POC ABG pCO2 58.9 H POC ABG pO2 149 H VBG pH Sodium Potassium Chloride Carbon Dioxide BUN Creatinine Glucose POC Glucose < 40 L 121 H Hemoglobin A1c Lactic Acid Calcium Total Bilirubin AST ALT Alkaline Phosphatase C-Reactive Protein Total Protein Albumin 01/17/18 01/17/18 01/17/18 16:54 16:54 16:54 WBC MCH Plt Count Seg Neuts % (Manual) 72.0 H Lymphocytes % (Manual) 3.0 L Monocytes % (Manual) Nucleated RBC % Seg Neutrophils # Man Lymphocytes # (Manual) 0.2 L Monocytes # (Manual) PT 18.5 H INR 1.45 H POC ABG pH POC ABG pCO2 POC ABG pO2 VBG pH Sodium 136 L Potassium Chloride 97.8 L Carbon Dioxide 16 L BUN 43 H Creatinine 3.3 H Glucose 121 H POC Glucose Hemoglobin A1c Lactic Acid Calcium 6.7 L Total Bilirubin AST ALT Alkaline Phosphatase C-Reactive Protein Total Protein 4.4 L Albumin 2.3 L 01/17/18 01/17/18 01/17/18 16:54 16:54 17:11 WBC MCH Plt Count Seg Neuts % (Manual) Lymphocytes % (Manual) Monocytes % (Manual) Nucleated RBC % Seg Neutrophils # Man Lymphocytes # (Manual) Monocytes # (Manual) PT INR POC ABG pH POC ABG pCO2 POC ABG pO2 VBG pH 7.273 L Sodium Potassium Chloride Carbon Dioxide BUN Creatinine Glucose POC Glucose Hemoglobin A1c Lactic Acid 4.70 H* 4.30 H* Calcium Total Bilirubin AST ALT Alkaline Phosphatase C-Reactive Protein Total Protein Albumin 01/17/18 01/17/18 01/17/18 18:02 18:15 19:21 WBC MCH Plt Count Seg Neuts % (Manual) Lymphocytes % (Manual) Monocytes % (Manual) Nucleated RBC % Seg Neutrophils # Man Lymphocytes # (Manual) Monocytes # (Manual) PT INR POC ABG pH 7.177 L POC ABG pCO2 POC ABG pO2 VBG pH Sodium Potassium Chloride Carbon Dioxide BUN Creatinine Glucose POC Glucose < 40 L Hemoglobin A1c Lactic Acid 3.00 H* Calcium Total Bilirubin AST ALT Alkaline Phosphatase C-Reactive Protein Total Protein Albumin 01/17/18 01/17/18 01/17/18 22:36 22:36 23:16 WBC MCH Plt Count Seg Neuts % (Manual) Lymphocytes % (Manual) Monocytes % (Manual) Nucleated RBC % Seg Neutrophils # Man Lymphocytes # (Manual) Monocytes # (Manual) PT INR POC ABG pH 7.112 L POC ABG pCO2 50.1 H POC ABG pO2 50 L VBG pH Sodium Potassium Chloride Carbon Dioxide BUN Creatinine Glucose POC Glucose Hemoglobin A1c 9.0 H Lactic Acid 5.50 H* Calcium Total Bilirubin AST ALT Alkaline Phosphatase C-Reactive Protein Total Protein Albumin 01/18/18 01/18/18 01/18/18 01:26 03:21 03:21 WBC MCH Plt Count Seg Neuts % (Manual) 27.0 L Lymphocytes % (Manual) 3.0 L Monocytes % (Manual) 14.0 H Nucleated RBC % Seg Neutrophils # Man Lymphocytes # (Manual) 0.3 L Monocytes # (Manual) 1.4 H PT INR POC ABG pH POC ABG pCO2 POC ABG pO2 VBG pH Sodium Potassium Chloride Carbon Dioxide BUN Creatinine Glucose POC Glucose 107 H Hemoglobin A1c Lactic Acid 8.00 H* Calcium Total Bilirubin AST ALT Alkaline Phosphatase C-Reactive Protein Total Protein Albumin 01/18/18 01/18/18 01/18/18 03:21 04:40 05:07 WBC MCH Plt Count Seg Neuts % (Manual) Lymphocytes % (Manual) Monocytes % (Manual) Nucleated RBC % Seg Neutrophils # Man Lymphocytes # (Manual) Monocytes # (Manual) PT INR POC ABG pH 7.093 L POC ABG pCO2 31.5 L POC ABG pO2 77 L VBG pH Sodium Potassium Chloride 96.9 L Carbon Dioxide 14 L BUN 47 H Creatinine 3.4 H Glucose POC Glucose Hemoglobin A1c Lactic Acid 11.10 H* Calcium 6.4 L Total Bilirubin AST 47 H ALT Alkaline Phosphatase C-Reactive Protein Total Protein 4.3 L Albumin 2.4 L 01/18/18 01/18/18 01/18/18 06:29 07:06 11:44 WBC MCH Plt Count Seg Neuts % (Manual) Lymphocytes % (Manual) Monocytes % (Manual) Nucleated RBC % Seg Neutrophils # Man Lymphocytes # (Manual) Monocytes # (Manual) PT INR POC ABG pH POC ABG pCO2 POC ABG pO2 VBG pH Sodium Potassium Chloride Carbon Dioxide BUN Creatinine Glucose POC Glucose 47 L 149 H < 40 L Hemoglobin A1c Lactic Acid Calcium Total Bilirubin AST ALT Alkaline Phosphatase C-Reactive Protein Total Protein Albumin 01/18/18 01/18/18 01/18/18 11:46 14:15 18:01 WBC MCH Plt Count Seg Neuts % (Manual) Lymphocytes % (Manual) Monocytes % (Manual) Nucleated RBC % Seg Neutrophils # Man Lymphocytes # (Manual) Monocytes # (Manual) PT INR POC ABG pH POC ABG pCO2 POC ABG pO2 VBG pH Sodium Potassium Chloride Carbon Dioxide BUN Creatinine Glucose POC Glucose 116 H < 40 L Hemoglobin A1c Lactic Acid 10.00 H* Calcium Total Bilirubin AST ALT Alkaline Phosphatase C-Reactive Protein Total Protein Albumin 01/18/18 01/18/18 01/18/18 18:02 23:25 23:27 WBC MCH Plt Count Seg Neuts % (Manual) Lymphocytes % (Manual) Monocytes % (Manual) Nucleated RBC % Seg Neutrophils # Man Lymphocytes # (Manual) Monocytes # (Manual) PT INR POC ABG pH POC ABG pCO2 POC ABG pO2 VBG pH Sodium Potassium Chloride Carbon Dioxide BUN Creatinine Glucose POC Glucose 136 H < 40 L < 40 L Hemoglobin A1c Lactic Acid Calcium Total Bilirubin AST ALT Alkaline Phosphatase C-Reactive Protein Total Protein Albumin 01/19/18 01/19/18 01/19/18 04:02 06:50 06:50 WBC 18.5 H MCH Plt Count 136 L Seg Neuts % (Manual) 86.0 H Lymphocytes % (Manual) 4.0 L Monocytes % (Manual) Nucleated RBC % Seg Neutrophils # Man 15.9 H Lymphocytes # (Manual) 0.7 L Monocytes # (Manual) 1.1 H PT 21.3 H INR 1.73 H POC ABG pH POC ABG pCO2 28.3 L POC ABG pO2 57 L VBG pH Sodium Potassium Chloride Carbon Dioxide BUN Creatinine Glucose POC Glucose Hemoglobin A1c Lactic Acid Calcium Total Bilirubin AST ALT Alkaline Phosphatase C-Reactive Protein Total Protein Albumin 01/19/18 01/19/18 01/19/18 06:50 08:45 11:17 WBC MCH Plt Count Seg Neuts % (Manual) Lymphocytes % (Manual) Monocytes % (Manual) Nucleated RBC % Seg Neutrophils # Man Lymphocytes # (Manual) Monocytes # (Manual) PT INR POC ABG pH POC ABG pCO2 POC ABG pO2 VBG pH Sodium 135 L Potassium Chloride 92.8 L Carbon Dioxide 19 L BUN 31 H Creatinine 2.6 H Glucose POC Glucose 110 H Hemoglobin A1c Lactic Acid 7.90 H* Calcium 7.1 L Total Bilirubin 1.60 H AST 2526 H ALT 1187 H Alkaline Phosphatase 133 H C-Reactive Protein Total Protein 4.8 L Albumin 2.0 L 01/19/18 01/19/18 01/19/18 11:31 22:12 23:34 WBC MCH Plt Count Seg Neuts % (Manual) Lymphocytes % (Manual) Monocytes % (Manual) Nucleated RBC % Seg Neutrophils # Man Lymphocytes # (Manual) Monocytes # (Manual) PT INR POC ABG pH POC ABG pCO2 31.6 L POC ABG pO2 59 L VBG pH Sodium Potassium Chloride Carbon Dioxide BUN Creatinine Glucose POC Glucose 131 H 53 L Hemoglobin A1c Lactic Acid Calcium Total Bilirubin AST ALT Alkaline Phosphatase C-Reactive Protein Total Protein Albumin 01/20/18 01/20/18 01/20/18 05:18 05:18 05:19 WBC 19.7 H MCH 27 L Plt Count 84 L Seg Neuts % (Manual) 84.0 H Lymphocytes % (Manual) 2.0 L Monocytes % (Manual) 8.0 H Nucleated RBC % Seg Neutrophils # Man 16.5 H Lymphocytes # (Manual) 0.4 L Monocytes # (Manual) 1.6 H PT INR POC ABG pH POC ABG pCO2 POC ABG pO2 VBG pH Sodium 136 L Potassium Chloride 96.9 L Carbon Dioxide 17 L BUN 65 H Creatinine 4.1 H D Glucose 104 H POC Glucose 125 H Hemoglobin A1c Lactic Acid Calcium 7.1 L Total Bilirubin 1.60 H AST 1702 H ALT 1141 H Alkaline Phosphatase 172 H C-Reactive Protein Total Protein 5.0 L Albumin 1.7 L 01/20/18 01/20/18 01/20/18 07:00 11:48 13:54 WBC MCH Plt Count Seg Neuts % (Manual) Lymphocytes % (Manual) Monocytes % (Manual) Nucleated RBC % Seg Neutrophils # Man Lymphocytes # (Manual) Monocytes # (Manual) PT 17.5 H INR 1.35 H POC ABG pH POC ABG pCO2 POC ABG pO2 VBG pH Sodium Potassium Chloride Carbon Dioxide BUN Creatinine Glucose POC Glucose 109 H Hemoglobin A1c Lactic Acid Calcium Total Bilirubin AST ALT Alkaline Phosphatase C-Reactive Protein 37.50 H Total Protein Albumin 01/20/18 01/20/18 01/20/18 17:28 17:51 20:50 WBC MCH Plt Count Seg Neuts % (Manual) Lymphocytes % (Manual) Monocytes % (Manual) Nucleated RBC % Seg Neutrophils # Man Lymphocytes # (Manual) Monocytes # (Manual) PT INR POC ABG pH POC ABG pCO2 POC ABG pO2 VBG pH Sodium Potassium Chloride Carbon Dioxide BUN Creatinine Glucose POC Glucose 140 H Hemoglobin A1c Lactic Acid 2.70 H* 2.30 H* Calcium Total Bilirubin AST ALT Alkaline Phosphatase C-Reactive Protein Total Protein Albumin 01/20/18 01/20/18 01/21/18 23:55 Unknown 00:12 WBC MCH Plt Count Seg Neuts % (Manual) Lymphocytes % (Manual) Monocytes % (Manual) Nucleated RBC % Seg Neutrophils # Man Lymphocytes # (Manual) Monocytes # (Manual) PT INR POC ABG pH POC ABG pCO2 POC ABG pO2 VBG pH Sodium Potassium Chloride Carbon Dioxide BUN Creatinine Glucose POC Glucose 149 H 134 H Hemoglobin A1c Lactic Acid 2.50 H* Calcium Total Bilirubin AST ALT Alkaline Phosphatase C-Reactive Protein Total Protein Albumin 01/21/18 01/21/18 01/21/18 04:27 05:00 05:00 WBC 21.7 H MCH 27 L Plt Count 67 L Seg Neuts % (Manual) 71.0 H Lymphocytes % (Manual) 9.0 L Monocytes % (Manual) Nucleated RBC % 4.0 H Seg Neutrophils # Man 15.4 H Lymphocytes # (Manual) Monocytes # (Manual) PT INR POC ABG pH POC ABG pCO2 33.8 L POC ABG pO2 72 L VBG pH Sodium Potassium Chloride Carbon Dioxide 21 L BUN 71 H Creatinine 4.1 H Glucose 149 H POC Glucose Hemoglobin A1c Lactic Acid Calcium 7.5 L Total Bilirubin AST 494 H ALT 780 H Alkaline Phosphatase 151 H C-Reactive Protein Total Protein 4.9 L Albumin 1.9 L 01/21/18 01/21/18 01/21/18 05:00 05:18 12:20 WBC MCH Plt Count Seg Neuts % (Manual) Lymphocytes % (Manual) Monocytes % (Manual) Nucleated RBC % Seg Neutrophils # Man Lymphocytes # (Manual) Monocytes # (Manual) PT INR POC ABG pH POC ABG pCO2 POC ABG pO2 VBG pH Sodium Potassium Chloride Carbon Dioxide BUN Creatinine Glucose POC Glucose 132 H 158 H Hemoglobin A1c Lactic Acid 2.10 H* Calcium Total Bilirubin AST ALT Alkaline Phosphatase C-Reactive Protein Total Protein Albumin 01/21/18 01/21/18 01/22/18 18:07 23:40 03:48 WBC MCH Plt Count Seg Neuts % (Manual) Lymphocytes % (Manual) Monocytes % (Manual) Nucleated RBC % Seg Neutrophils # Man Lymphocytes # (Manual) Monocytes # (Manual) PT INR POC ABG pH POC ABG pCO2 POC ABG pO2 65 L VBG pH Sodium Potassium Chloride Carbon Dioxide BUN Creatinine Glucose POC Glucose 143 H 136 H Hemoglobin A1c Lactic Acid Calcium Total Bilirubin AST ALT Alkaline Phosphatase C-Reactive Protein Total Protein Albumin 01/22/18 01/22/18 01/22/18 04:10 04:10 05:56 WBC 24.9 H MCH 27 L Plt Count 80 L Seg Neuts % (Manual) Lymphocytes % (Manual) Monocytes % (Manual) Nucleated RBC % Seg Neutrophils # Man Lymphocytes # (Manual) Monocytes # (Manual) PT INR POC ABG pH POC ABG pCO2 POC ABG pO2 VBG pH Sodium Potassium Chloride 97.7 L Carbon Dioxide BUN 72 H Creatinine 3.6 H Glucose 145 H POC Glucose 139 H Hemoglobin A1c Lactic Acid Calcium 7.3 L Total Bilirubin AST 146 H ALT 547 H Alkaline Phosphatase C-Reactive Protein Total Protein 5.2 L Albumin 2.3 L 01/22/18 01/22/18 01/23/18 11:30 17:41 00:00 WBC MCH Plt Count Seg Neuts % (Manual) Lymphocytes % (Manual) Monocytes % (Manual) Nucleated RBC % Seg Neutrophils # Man Lymphocytes # (Manual) Monocytes # (Manual) PT INR POC ABG pH POC ABG pCO2 POC ABG pO2 VBG pH Sodium Potassium Chloride Carbon Dioxide BUN Creatinine Glucose POC Glucose 156 H 185 H 150 H Hemoglobin A1c Lactic Acid Calcium Total Bilirubin AST ALT Alkaline Phosphatase C-Reactive Protein Total Protein Albumin 01/23/18 01/23/18 01/23/18 04:39 05:24 11:38 WBC MCH Plt Count Seg Neuts % (Manual) Lymphocytes % (Manual) Monocytes % (Manual) Nucleated RBC % Seg Neutrophils # Man Lymphocytes # (Manual) Monocytes # (Manual) PT INR POC ABG pH POC ABG pCO2 31.9 L POC ABG pO2 62 L VBG pH Sodium Potassium Chloride Carbon Dioxide BUN Creatinine Glucose POC Glucose 215 H 182 H Hemoglobin A1c Lactic Acid Calcium Total Bilirubin AST ALT Alkaline Phosphatase C-Reactive Protein Total Protein Albumin 01/23/18 01/23/18 01/24/18 14:20 17:26 00:10 WBC MCH Plt Count Seg Neuts % (Manual) Lymphocytes % (Manual) Monocytes % (Manual) Nucleated RBC % Seg Neutrophils # Man Lymphocytes # (Manual) Monocytes # (Manual) PT INR POC ABG pH POC ABG pCO2 31.4 L POC ABG pO2 55 L VBG pH Sodium Potassium Chloride Carbon Dioxide BUN Creatinine Glucose POC Glucose 252 H 225 H Hemoglobin A1c Lactic Acid Calcium Total Bilirubin AST ALT Alkaline Phosphatase C-Reactive Protein Total Protein Albumin 01/24/18 01/24/18 01/24/18 03:40 03:40 06:06 WBC 34.5 H MCH 27 L Plt Count 130 L Seg Neuts % (Manual) Lymphocytes % (Manual) Monocytes % (Manual) Nucleated RBC % Seg Neutrophils # Man Lymphocytes # (Manual) Monocytes # (Manual) PT INR POC ABG pH POC ABG pCO2 POC ABG pO2 VBG pH Sodium Potassium 5.7 H D Chloride 95.6 L Carbon Dioxide 20 L BUN 96 H Creatinine 4.2 H Glucose 166 H POC Glucose 162 H Hemoglobin A1c Lactic Acid Calcium 7.3 L Total Bilirubin AST 52 H ALT 235 H Alkaline Phosphatase C-Reactive Protein Total Protein 5.1 L Albumin 2.5 L 01/24/18 01/24/18 01/24/18 11:36 15:08 17:32 WBC MCH Plt Count Seg Neuts % (Manual) Lymphocytes % (Manual) Monocytes % (Manual) Nucleated RBC % Seg Neutrophils # Man Lymphocytes # (Manual) Monocytes # (Manual) PT INR POC ABG pH POC ABG pCO2 POC ABG pO2 VBG pH Sodium Potassium Chloride Carbon Dioxide BUN Creatinine Glucose POC Glucose 160 H 160 H Hemoglobin A1c Lactic Acid Calcium Total Bilirubin AST ALT Alkaline Phosphatase C-Reactive Protein 3.30 H Total Protein Albumin 01/25/18 01/25/18 01/25/18 00:04 04:34 05:25 WBC MCH Plt Count Seg Neuts % (Manual) Lymphocytes % (Manual) Monocytes % (Manual) Nucleated RBC % Seg Neutrophils # Man Lymphocytes # (Manual) Monocytes # (Manual) PT INR POC ABG pH 7.342 L POC ABG pCO2 48.7 H POC ABG pO2 VBG pH Sodium Potassium Chloride Carbon Dioxide BUN Creatinine Glucose POC Glucose 169 H 133 H Hemoglobin A1c Lactic Acid Calcium Total Bilirubin AST ALT Alkaline Phosphatase C-Reactive Protein Total Protein Albumin 01/25/18 01/25/18 01/25/18 11:46 17:42 23:50 WBC MCH Plt Count Seg Neuts % (Manual) Lymphocytes % (Manual) Monocytes % (Manual) Nucleated RBC % Seg Neutrophils # Man Lymphocytes # (Manual) Monocytes # (Manual) PT INR POC ABG pH POC ABG pCO2 POC ABG pO2 VBG pH Sodium Potassium Chloride Carbon Dioxide BUN Creatinine Glucose POC Glucose 121 H 150 H 149 H Hemoglobin A1c Lactic Acid Calcium Total Bilirubin AST ALT Alkaline Phosphatase C-Reactive Protein Total Protein Albumin 01/26/18 01/26/18 01/26/18 04:13 05:25 06:20 WBC 21.0 H MCH Plt Count Seg Neuts % (Manual) 95.0 H Lymphocytes % (Manual) 1.0 L Monocytes % (Manual) Nucleated RBC % Seg Neutrophils # Man 20.0 H Lymphocytes # (Manual) 0.2 L Monocytes # (Manual) PT INR POC ABG pH POC ABG pCO2 POC ABG pO2 70 L VBG pH Sodium Potassium Chloride Carbon Dioxide BUN Creatinine Glucose POC Glucose 107 H Hemoglobin A1c Lactic Acid Calcium Total Bilirubin AST ALT Alkaline Phosphatase C-Reactive Protein Total Protein Albumin 01/26/18 01/26/18 01/26/18 06:20 12:19 18:09 WBC MCH Plt Count Seg Neuts % (Manual) Lymphocytes % (Manual) Monocytes % (Manual) Nucleated RBC % Seg Neutrophils # Man Lymphocytes # (Manual) Monocytes # (Manual) PT INR POC ABG pH POC ABG pCO2 POC ABG pO2 VBG pH Sodium Potassium 5.9 H Chloride 95.7 L Carbon Dioxide BUN 102 H Creatinine 4.6 H Glucose POC Glucose 151 H 110 H Hemoglobin A1c Lactic Acid Calcium 6.6 L Total Bilirubin AST ALT Alkaline Phosphatase C-Reactive Protein Total Protein Albumin 01/27/18 01/27/18 01/27/18 00:17 05:20 05:20 WBC 23.3 H MCH 27 L Plt Count Seg Neuts % (Manual) 97.0 H Lymphocytes % (Manual) 0 L Monocytes % (Manual) Nucleated RBC % Seg Neutrophils # Man 22.6 H Lymphocytes # (Manual) 0.0 L Monocytes # (Manual) PT INR POC ABG pH POC ABG pCO2 POC ABG pO2 VBG pH Sodium Potassium 5.7 H Chloride 93.9 L Carbon Dioxide 21 L BUN 121 H Creatinine 5.2 H Glucose 131 H POC Glucose 159 H Hemoglobin A1c Lactic Acid Calcium 6.1 L Total Bilirubin AST ALT Alkaline Phosphatase C-Reactive Protein Total Protein Albumin 01/27/18 01/27/18 01/27/18 05:43 12:16 17:32 WBC MCH Plt Count Seg Neuts % (Manual) Lymphocytes % (Manual) Monocytes % (Manual) Nucleated RBC % Seg Neutrophils # Man Lymphocytes # (Manual) Monocytes # (Manual) PT INR POC ABG pH POC ABG pCO2 POC ABG pO2 VBG pH Sodium Potassium Chloride Carbon Dioxide BUN Creatinine Glucose POC Glucose 121 H 161 H 146 H Hemoglobin A1c Lactic Acid Calcium Total Bilirubin AST ALT Alkaline Phosphatase C-Reactive Protein Total Protein Albumin 01/28/18 01/28/18 01/28/18 00:05 04:24 05:43 WBC MCH Plt Count Seg Neuts % (Manual) Lymphocytes % (Manual) Monocytes % (Manual) Nucleated RBC % Seg Neutrophils # Man Lymphocytes # (Manual) Monocytes # (Manual) PT INR POC ABG pH POC ABG pCO2 POC ABG pO2 77 L VBG pH Sodium Potassium Chloride Carbon Dioxide BUN Creatinine Glucose POC Glucose 128 H 137 H Hemoglobin A1c Lactic Acid Calcium Total Bilirubin AST ALT Alkaline Phosphatase C-Reactive Protein Total Protein Albumin 01/28/18 01/28/18 06:30 06:30 WBC 24.8 H MCH Plt Count Seg Neuts % (Manual) Lymphocytes % (Manual) Monocytes % (Manual) Nucleated RBC % Seg Neutrophils # Man Lymphocytes # (Manual) Monocytes # (Manual) PT INR POC ABG pH POC ABG pCO2 POC ABG pO2 VBG pH Sodium Potassium Chloride 95.2 L Carbon Dioxide BUN 70 H Creatinine 3.7 H Glucose 135 H POC Glucose Hemoglobin A1c Lactic Acid Calcium 6.4 L Total Bilirubin AST ALT Alkaline Phosphatase C-Reactive Protein Total Protein Albumin Allied health notes reviewed: nursing
[2018-01-28] MEDS: DELTASONE PO SCH (09:47)
[2018-01-28] MEDS: PEPCID PO SCH (09:48)
[2018-01-28] MEDS ORDERED: NACL 0.9% 500 ML 500 ML IV SCH (10:00)
--- NOTE | 2018-01-28 10:58 | XRay Report ---
AP CHEST: HISTORY: Respiratory failure Compared to 01/26/18. A new large left pneumothorax is identified is estimated at 50-60%. There is mild mediastinal shift to the right. The right lung is generally clear. Heart size is borderline and unchanged. The endotracheal tube, nasogastric tube and right venous catheter and pacemaker device are unchanged. IMPRESSION: New left pneumothorax as described. These findings were relayed to CC1 at 1042 hrs. The patient's doctor and nurse were in a code.
--- NOTE | 2018-01-28 12:01 | Progress Note ---
Assessment and Plan Assessment and plan: Acute hypercapnic respiratory failure -Likely from drug abuse and aspiration -VAP bundle -on vent support -Lung protective strategies, ARDS-net protocol Left Pneumothorax -Consult IR for chest tube -I notified pulmonary Severe Sepsis with septic shock likely from aspiration pneumonia-POA -Recurrent fever possible due to the infection -Had some reaction to zosyn with facial flushing -abx per ID -worsening Leukocytosis like secondary to steroids given for allergic reaction -Left lobar infiltrate on admission -?pelvic abscess -IR evaluation for possible drainage and cx DM uncontrolled -Continue insulin therapy Shock required pressors - likely from sepsis vs cardiogenic - Continue IV antibiotics - off pressors today. required 3 pressors on admission Decompensated acute CHF - EF 30-35% on echo - cardiology following - For HD today per renal service History of pacemaker insertion in 2008 post PCI History of CAD s/p PCI in 2008 JANESSA Etiology likely due to ATN from severe sepsis - monitor renal function, now on HD - For HD today per renal service - Avoid nephrotoxins, nephrology consulted Hyperkalemia -Continue hemodialysis History of cocaine and methamphetamine abuse Acute encephalopathy - Multifactorial, likely from drug abuse vs severe sepsis versus anoxic encephalopathy - CT head no acute finding - Pacemaker precludes getting MRI brain - Neurology consultation ordered Ischemic hepatitis Elevated LFTs, etiology secondary to shock liver syndrome - Likely from severe hypotension causing shock liver - Continue to monitor Coagulopathy Etiology due to severe sepsis and abnormal liver function Bilateral finger Ischemic Changes possible secondary to pressors but potentiated by hx of from drug abuse, will get vascular consult Thrombocytopenia Etiology likely secondary to sepsis - Montior Disposition: Continue ICU monitoring, very poor prognosis. The high probability of a clinically significant, sudden or life threatening deterioration of the [multiorgan] system(s) required my full and direct attention, intervention and personal management. The aggregate critical care time was [31] minutes. This time is in addition to time spent performing reported procedures but includes the following: [x] Data Review and interpretation [x] Patient assessment and monitoring of vital signs [x] Documentation [x] Medication orders and management History Interval history: 62-year-old admitted with hx of htn, polysubstance drug abuse per family, admitted after she was found unresponsive found in the bathroom of a friends home, noted with severe lactic acidosis, hypotensive on vasopressors, hypercapenic respiratory failure requiring intubation . Hospitalist Physical - Constitutional Vitals: Temp Pulse Resp BP Pulse Ox 97.7 F 95 H 15 79/43 99 01/28/18 08:00 01/28/18 07:50 01/28/18 07:50 01/28/18 07:38 01/28/18 07:38 General appearance: Present: other (intubated) - EENT Eyes: Present: PERRL, EOM intact ENT: hearing intact, clear oral mucosa, dentition normal - Neck Neck: Present: supple, normal ROM - Respiratory Respiratory effort: normal Respiratory: bilateral: diminished, rhonchi - Cardiovascular Rhythm: regular Heart Sounds: Present: S1 & S2. Absent: gallop, rub - Extremities Extremities: no ischemia, No edema, Full ROM - Abdominal General gastrointestinal: soft, non-tender, non-distended, normal bowel sounds - Integumentary Integumentary: Present: clear, warm, dry - Neurologic Neurologic: CNII-XII intact, moves all extremities Results - Labs CBC & Chem 7: 01/28/18 06:30 01/28/18 06:30 Labs: Laboratory Last Values WBC 24.8 K/mm3 (4.5-11.0) H 01/28/18 06:30 RBC 3.87 M/mm3 (3.65-5.03) 01/28/18 06:30 Hgb 10.7 gm/dl (10.1-14.3) 01/28/18 06:30 Hct 32.6 % (30.3-42.9) 01/28/18 06:30 MCV 84 fl (79-97) 01/28/18 06:30 MCH 28 pg (28-32) 01/28/18 06:30 MCHC 33 % (30-34) 01/28/18 06:30 RDW 14.9 % (13.2-15.2) 01/28/18 06:30 Plt Count 294 K/mm3 (140-440) 01/28/18 06:30 Lymph % (Auto) Avian Keeper 01/17/18 16:54 [place] % (Auto) Avian Keeper 01/17/18 16:54 Eos % (Auto) Avian Keeper 01/17/18 16:54 Baso % (Auto) Avian Keeper 01/17/18 16:54 Lymph # Avian Keeper 01/17/18 16:54 [place] # Avian Keeper 01/17/18 16:54 Eos # Avian Keeper 01/17/18 16:54 Baso # Avian Keeper 01/17/18 16:54 Add Manual Diff Complete 01/27/18 05:20 Total Counted 100 01/27/18 05:20 Seg Neutrophils % Avian Keeper 01/28/18 06:30 Seg Neuts % (Manual) 97.0 % (40.0-70.0) H 01/27/18 05:20 Band Neutrophils % 0 % 01/27/18 05:20 Lymphocytes % (Manual) 0 % (13.4-35.0) L 01/27/18 05:20 Reactive Lymphs % (Man) 0 % 01/27/18 05:20 Monocytes % (Manual) 2.0 % (0.0-7.3) 01/27/18 05:20 Eosinophils % (Manual) 0 % (0.0-4.3) 01/27/18 05:20 Basophils % (Manual) 0 % (0.0-1.8) 01/27/18 05:20 Metamyelocytes % 0 % 01/27/18 05:20 Myelocytes % 1.0 % 01/27/18 05:20 Promyelocytes % 0 % 01/27/18 05:20 Blast Cells % 0 % 01/27/18 05:20 Nucleated RBC % Not Reportable 01/27/18 05:20 Seg Neutrophils # Avian Keeper 01/17/18 16:54 Seg Neutrophils # Man 22.6 K/mm3 (1.8-7.7) H 01/27/18 05:20 Band Neutrophils # 0.0 K/mm3 01/27/18 05:20 Lymphocytes # (Manual) 0.0 K/mm3 (1.2-5.4) L 01/27/18 05:20 Abs React Lymphs (Man) 0.0 K/mm3 01/27/18 05:20 Monocytes # (Manual) 0.5 K/mm3 (0.0-0.8) 01/27/18 05:20 Eosinophils # (Manual) 0.0 K/mm3 (0.0-0.4) 01/27/18 05:20 Basophils # (Manual) 0.0 K/mm3 (0.0-0.1) 01/27/18 05:20 Metamyelocytes # 0.0 K/mm3 01/27/18 05:20 Myelocytes # 0.2 K/mm3 01/27/18 05:20 Promyelocytes # 0.0 K/mm3 01/27/18 05:20 Blast Cells # 0.0 K/mm3 01/27/18 05:20 WBC Morphology Not Reportable 01/27/18 05:20 Hypersegmented Neuts Not Reportable 01/27/18 05:20 Hyposegmented Neuts Not Reportable 01/27/18 05:20 Hypogranular Neuts Not Reportable 01/27/18 05:20 Smudge Cells Not Reportable 01/27/18 05:20 Toxic Granulation Not Reportable 01/27/18 05:20 Toxic Vacuolation Not Reportable 01/27/18 05:20 Dohle Bodies Not Reportable 01/27/18 05:20 Pelger-Huet Anomaly Not Reportable 01/27/18 05:20 Opal Rods Not Reportable 01/27/18 05:20 Platelet Estimate Consistent w auto 01/27/18 05:20 Clumped Platelets Not Reportable 01/27/18 05:20 Plt Clumps, EDTA Not Reportable 01/27/18 05:20 Large Platelets Not Reportable 01/27/18 05:20 Giant Platelets Rare 01/27/18 05:20 Platelet Satelliting Not Reportable 01/27/18 05:20 Plt Morphology Comment Not Reportable 01/27/18 05:20 RBC Morphology Not Reportable 01/27/18 05:20 Dimorphic RBCs Not Reportable 01/27/18 05:20 Polychromasia Not Reportable 01/27/18 05:20 Hypochromasia Not Reportable 01/27/18 05:20 Poikilocytosis Not Reportable 01/27/18 05:20 Anisocytosis Not Reportable 01/27/18 05:20 Microcytosis Not Reportable 01/27/18 05:20 Macrocytosis Not Reportable 01/27/18 05:20 Spherocytes Not Reportable 01/27/18 05:20 Pappenheimer Bodies Not Reportable 01/27/18 05:20 Sickle Cells Not Reportable 01/27/18 05:20 Target Cells Not Reportable 01/27/18 05:20 Tear Drop Cells Not Reportable 01/27/18 05:20 Ovalocytes Not Reportable 01/27/18 05:20 Stomatocytes Few 01/26/18 06:20 Helmet Cells Not Reportable 01/27/18 05:20 Frankel-Daguao Bodies Not Reportable 01/27/18 05:20 [place] Rings Not Reportable 01/27/18 05:20 Carefree Cells Not Reportable 01/27/18 05:20 Bite Cells Not Reportable 01/27/18 05:20 Crenated Cell Not Reportable 01/27/18 05:20 Elliptocytes Not Reportable 01/27/18 05:20 Acanthocytes (Spur) Not Reportable 01/27/18 05:20 Rouleaux Not Reportable 01/27/18 05:20 Hemoglobin C Crystals Not Reportable 01/27/18 05:20 Schistocytes Not Reportable 01/27/18 05:20 Malaria parasites Not Reportable 01/27/18 05:20 Brock Bodies Not Reportable 01/27/18 05:20 Hem Pathologist Commnt No 01/27/18 05:20 PT 17.5 Sec. (12.2-14.9) H 01/20/18 07:00 INR 1.35 (0.87-1.13) H 01/20/18 07:00 Heparin Anti-Xa, Unfract Negative (Negative) 01/20/18 11:03 POC ABG pH 7.429 (7.35-7.45) 01/28/18 04:24 POC ABG pCO2 39.1 (35-45) 01/28/18 04:24 POC ABG pO2 77 (80-105) L 01/28/18 04:24 POC ABG HCO3 25.9 01/28/18 04:24 POC ABG Total CO2 27 01/28/18 04:24 POC ABG O2 Sat 96 01/28/18 04:24 POC ABG Base Excess 2 01/28/18 04:24 VBG pH 7.273 (7.320-7.420) L 01/17/18 16:54 FiO2 30 % 01/28/18 04:24 Sodium 138 mmol/L (137-145) 01/28/18 06:30 Potassium 4.5 mmol/L (3.6-5.0) D 01/28/18 06:30 Chloride 95.2 mmol/L (98-107) L 01/28/18 06:30 Carbon Dioxide 24 mmol/L (22-30) 01/28/18 06:30 Anion Gap 23 mmol/L 01/28/18 06:30 BUN 70 mg/dL (7-17) H 01/28/18 06:30 Creatinine 3.7 mg/dL (0.7-1.2) H 01/28/18 06:30 Estimated GFR 12 ml/min 01/28/18 06:30 BUN/Creatinine Ratio 19 % 01/28/18 06:30 Glucose 135 mg/dL (65-100) H 01/28/18 06:30 POC Glucose 137 (70-105) H 01/28/18 05:43 Hemoglobin A1c 9.0 % (4-6) H 01/17/18 22:36 Lactic Acid 1.40 mmol/L (0.7-2.0) 01/24/18 15:08 Calcium 6.4 mg/dL (8.4-10.2) L 01/28/18 06:30 Total Bilirubin 1.10 mg/dL (0.1-1.2) 01/24/18 03:40 AST 52 units/L (5-40) H 01/24/18 03:40 ALT 235 units/L (7-56) H 01/24/18 03:40 Alkaline Phosphatase 105 units/L (35-129) 01/24/18 03:40 C-Reactive Protein 3.30 mg/dL (0.00-1.30) H 01/24/18 15:08 Total Protein 5.1 g/dL (6.3-8.2) L 01/24/18 03:40 Albumin 2.5 g/dL (3.9-5) L 01/24/18 03:40 Albumin/Globulin Ratio 1.0 % 01/24/18 03:40 Serotonin Release Assay See scanned report 01/20/18 11:03 Random Vancomycin 19.8 ug/mL (0-40.0) 01/27/18 05:20 ALISA Screen Negative (Negative) 01/20/18 Unknown Heparin-induced Plt Ab Negative (Negative) 01/20/18 11:03 UF Heparin High Dose 0 % Release 01/20/18 11:03 NEGRITA UFH Low Dose 0.1 0 % Release 01/20/18 11:03 NEGRITA UFH Low Dose 0.5 0 % Release 01/20/18 11:03 Hepatitis A IgM Ab Non-reactive (NonReactive) 01/20/18 07:00 Hep Bs Antigen Non-reactive (Negative) 01/20/18 07:00 Hep B Core IgM Ab Non-reactive (NonReactive) 01/20/18 07:00 Hepatitis C Antibody Non-reactive (NonReactive) 01/20/18 07:00 HIV 1&2 Antibody Rapid Non react (Non React) 01/20/18 Unknown HIV P24 Antigen Non react (Non React) 01/20/18 Unknown
--- NOTE | 2018-01-28 12:15 | Progress Note ---
Assessment and Plan - Patient Problems (1) Acute renal failure Current Visit: Yes Status: Acute Plan to address problem: may be prerenal with ATN. Dialysis dependent. Adjust meds per renal function. Prognosis- guarded. Calcium noted to be low with low Albumin. Check ionised Calcium and Magnesium levels. (2) Sepsis Current Visit: Yes Status: Acute Plan to address problem: Severe sepsis with multiorgan failure. Antibiotics per ID- notes reviewed (3) Acute respiratory failure Current Visit: Yes Status: Acute (4) PVD (peripheral vascular disease) Current Visit: Yes Status: Acute (5) Anemia Current Visit: Yes Status: Acute (6) Hypocalcemia Current Visit: Yes Status: Acute (7) Hypoalbuminemia Current Visit: Yes Status: Acute (8) Transaminitis Current Visit: Yes Status: Acute (9) Pleural effusion Current Visit: Yes Status: Acute (10) Encephalopathy Current Visit: Yes Status: Acute Subjective Date of service: 01/28/18 Principal diagnosis: Acute hypoxic respiratory failure, severe sepsis with shock , encephalopathy Interval history: pt is orally intubated, on ventilator, sedated. Fio2-30%.Chart was reviewed, spoke with pt's nurse. Reported to have spontaneous Left pneumothorax Objective - Vital Signs Vital signs: Vital Signs - 12hr 01/28/18 01/28/18 01/28/18 00:20 00:30 00:45 Temperature Pulse Rate 92 H 81 75 Pulse Rate [ Anterior Bilateral Throughout] Pulse Rate [ From Monitor] Respiratory 19 18 Rate Respiratory Rate [Anterior Bilateral Throughout] Blood Pressure 105/62 90/56 85/51 O2 Sat by Pulse 95 92 Oximetry 01/28/18 01/28/18 01/28/18 01:00 01:15 01:30 Temperature Pulse Rate 75 73 74 Pulse Rate [ Anterior Bilateral Throughout] Pulse Rate [ From Monitor] Respiratory 18 16 15 Rate Respiratory Rate [Anterior Bilateral Throughout] Blood Pressure 90/49 85/51 79/42 O2 Sat by Pulse 84 88 91 Oximetry 01/28/18 01/28/18 01/28/18 01:44 01:45 02:00 Temperature Pulse Rate 80 75 Pulse Rate [ 79 81 Anterior Bilateral Throughout] Pulse Rate [ 101 H From Monitor] Respiratory 14 14 Rate Respiratory 14 14 Rate [Anterior Bilateral Throughout] Blood Pressure 79/42 69/41 O2 Sat by Pulse 99 Oximetry 01/28/18 01/28/18 01/28/18 02:15 02:31 02:45 Temperature Pulse Rate 83 91 H 95 H Pulse Rate [ Anterior Bilateral Throughout] Pulse Rate [ From Monitor] Respiratory 15 15 18 Rate Respiratory Rate [Anterior Bilateral Throughout] Blood Pressure 84/50 144/72 144/72 O2 Sat by Pulse 97 97 99 Oximetry 01/28/18 01/28/18 01/28/18 03:00 03:15 03:30 Temperature Pulse Rate 75 89 89 Pulse Rate [ Anterior Bilateral Throughout] Pulse Rate [ From Monitor] Respiratory 22 13 24 Rate Respiratory Rate [Anterior Bilateral Throughout] Blood Pressure 114/63 114/63 125/61 O2 Sat by Pulse 97 96 Oximetry 01/28/18 01/28/18 01/28/18 03:45 04:00 04:15 Temperature 98.9 F Pulse Rate 85 91 H 83 Pulse Rate [ Anterior Bilateral Throughout] Pulse Rate [ 94 H From Monitor] Respiratory 21 22 20 Rate Respiratory Rate [Anterior Bilateral Throughout] Blood Pressure 125/61 94/52 125/61 O2 Sat by Pulse 97 98 98 Oximetry 01/28/18 01/28/18 01/28/18 04:18 04:30 04:45 Temperature Pulse Rate 83 90 89 Pulse Rate [ Anterior Bilateral Throughout] Pulse Rate [ From Monitor] Respiratory 16 21 Rate Respiratory Rate [Anterior Bilateral Throughout] Blood Pressure 94/52 95/57 94/52 O2 Sat by Pulse 97 98 99 Oximetry 01/28/18 01/28/18 01/28/18 05:00 05:15 05:30 Temperature Pulse Rate 91 H 92 H 93 H Pulse Rate [ Anterior Bilateral Throughout] Pulse Rate [ From Monitor] Respiratory 20 22 23 Rate Respiratory Rate [Anterior Bilateral Throughout] Blood Pressure 100/58 100/58 82/55 O2 Sat by Pulse 97 97 98 Oximetry 01/28/18 01/28/18 01/28/18 05:45 06:00 06:15 Temperature Pulse Rate 91 H 96 H 93 H Pulse Rate [ Anterior Bilateral Throughout] Pulse Rate [ 92 H From Monitor] Respiratory 22 26 H 22 Rate Respiratory Rate [Anterior Bilateral Throughout] Blood Pressure 82/55 89/56 82/55 O2 Sat by Pulse 97 97 98 Oximetry 01/28/18 01/28/18 01/28/18 06:30 06:44 06:45 Temperature Pulse Rate 92 H 99 H 90 Pulse Rate [ Anterior Bilateral Throughout] Pulse Rate [ From Monitor] Respiratory 18 25 H Rate Respiratory Rate [Anterior Bilateral Throughout] Blood Pressure 97/52 97/52 89/56 O2 Sat by Pulse 99 Oximetry 01/28/18 01/28/18 01/28/18 07:00 07:15 07:30 Temperature Pulse Rate 96 H 93 H 93 H Pulse Rate [ Anterior Bilateral Throughout] Pulse Rate [ From Monitor] Respiratory 24 15 21 Rate Respiratory Rate [Anterior Bilateral Throughout] Blood Pressure 79/50 78/48 79/43 O2 Sat by Pulse 99 98 99 Oximetry 01/28/18 01/28/18 01/28/18 07:31 07:35 07:38 Temperature Pulse Rate 93 H 95 H 96 H Pulse Rate [ Anterior Bilateral Throughout] Pulse Rate [ From Monitor] Respiratory 39 H Rate Respiratory Rate [Anterior Bilateral Throughout] Blood Pressure 80/42 79/73 79/43 O2 Sat by Pulse 99 97 99 Oximetry 01/28/18 01/28/18 01/28/18 07:40 07:50 08:00 Temperature 97.7 F Pulse Rate Pulse Rate [ 94 H 95 H Anterior Bilateral Throughout] Pulse Rate [ From Monitor] Respiratory Rate Respiratory 25 H 15 Rate [Anterior Bilateral Throughout] Blood Pressure O2 Sat by Pulse Oximetry 01/28/18 12:03 Temperature Pulse Rate 95 H Pulse Rate [ Anterior Bilateral Throughout] Pulse Rate [ From Monitor] Respiratory Rate Respiratory Rate [Anterior Bilateral Throughout] Blood Pressure 114/76 O2 Sat by Pulse 97 Oximetry - General Appearance General appearance: chronically ill, sedated on ventilator EENT: mucous membranes dry Neck: no JVD Respiratory: Present: Decreased Breath Sounds Cardiology: regular Gastrointestinal: normoactive bowel sounds Musculoskeletal: other (ischemic extremities) - Lab 01/28/18 06:30 01/28/18 06:30 Most recent lab results Calcium 6.4 mg/dL (8.4-10.2) L 01/28/18 06:30
--- NOTE | 2018-01-28 12:20 | Event Note ---
Date: 01/28/18 Pt known to our service with spontaneous large left PTX found on CXR. Will place chest tube for decompression.
[2018-01-28] MEDS ORDERED: NACL 0.9% 500 ML 500 ML ONE (12:55)
[2018-01-28] MEDS ORDERED: XYLOCAINE 2% INFILTRATI ONE (12:56)
[2018-01-28] MEDS ORDERED: HEPARIN/NS 5000 UNIT/500ML(CATH LAB) 500 ML IR ONE (12:56)
[2018-01-28 13:42] LABS: Basophils % (Manual) 0 % (0.0-1.8); RBC Morphology Normal; Total Cells Counted 100
--- NOTE | 2018-01-28 14:28 | Operative Report ---
Operative Report Operative Report: Procedure: Fluoroscopic-guided placement of a left-sided chest tube Date of Procedure: 01/28/2018 History/Indication: 63-year-old female on a ventilator in the intensive care unit, with spontaneous left-sided pneumothorax Physician: Jose Smith MD Technique/Procedural Details: The patient was placed in the supine position and prepped and draped in the usual sterile fashion. A timeout was performed. Local anesthetic was administered. A skin neck was made, and tissue dilation was performed with a hemostat. Under fluoroscopic guidance, an 18-gauge needle was advanced into the pleural cavity at the superior aspect of the seventh postero-lateral rib. The needle was exchanged over a note 35 wire for a 10 Czech purpose drainage catheter. The locking loop was formed, and the catheter was connected to a Pleur-evac unit. The catheter was sutured in place with 2-0 Ethilon suture and dressed with Vaseline gauze. Discussion: Initial imaging demonstrates a moderate to large left pneumothorax. After chest tube placement, there was immediate decompression of the pleural space, with reexpansion of the lungs. After evacuation of air, somewhat purulent appearing pleural fluid began to accumulate in the Pleur-evac, raising suspicion for an infectious/inflammatory process. The patient is already on antibiotics for pneumonia. Specimen: None EBL: <5 cc
--- NOTE | 2018-01-28 15:23 | XRay Report ---
AP CHEST: HISTORY: Chest tube placement, left pneumothorax A left Heimlich chest tube has been inserted which terminates along the lateral thoracic cage at the level of the left hilum. No residual left pneumothorax is detected. The remainder of the examination is unchanged since 1014 hrs. earlier today. IMPRESSION: Left chest tube placement. No residual left pneumothorax is detected.
[2018-01-29] MEDS: FLAGYL 500 MG/100 ML 500 MG/100 ML BAG IV SCH ×3 (02:47→18:37)
[2018-01-29] MEDS: DUONEB *Not for PRN Use IH SCH ×5 (04:42→20:04)
[2018-01-29] MEDS: HumaLOG SUB-Q SCH ×4 (06:13→18:45)
[2018-01-29] MEDS: LOPRESSOR IV SCH ×3 (06:13→12:30)
[2018-01-29 07:07] LABS: Hematocrit 28.6 % (30.3-42.9); Hemoglobin 9.1 gm/dl (10.1-14.3); Mean Corpuscular HGB Conc 32 % (30-34); Mean Corpuscular Hemoglobin 27 pg (28-32); Mean Corpuscular Volume 85 fl (79-97); Platelet Count 275 K/mm3 (140-440); Red Blood Count 3.37 M/mm3 (3.65-5.03); Red Cell Distribution Width 15.1 % (13.2-15.2)
[2018-01-29 07:14] LABS: Calcium 6.5 mg/dL (8.4-10.2)
--- NOTE | 2018-01-29 08:04 | Progress Note ---
Assessment and Plan Assessment: 1) Severe sepsis with septic shock and MODS: shock resolved, fever resolved and leukocytosis better 34-->23-->24-->15K. Etiology most likely unclear. DDx: pneumonia ? pelvic collections? large left sided pneumothorax -blood cx negative -legs US neg for DVT -CRP=37 -HIV neg -ALISA neg 2) Acute respiratory failure - better s/p Chest tube due to large left sided pneumothorax on 01/28 3) Presumed pneumonia: -repeat CXR - decreased effusion -TA no growth -CT chest left minimal pleural effusion and infiltrate 4) JANESSA: on HD 5) Large left sided pneumothorax s/p CT on 01/28 6) DM-poorly controlled 7) Bilateral fingers ischemic changes: from pressors ? 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 flushing ? zosyn allergy 11) Acute encephalopathy 12) Pelvic collections x 3: ? etiology -CT showed non obstructed left kidney stones, large left pelvic cyst 8.8 x 5.7 cm, LLL atelectasis minimal pleural effusion 13) Penicillin allergy Plan: -continue levaquin and flagyl - day 7 (day 13 counting previous abx) -monitor leukocytosis -consider IR eval to drain large left pelvic cyst 8.8 x 5.7 cm -chest tube monitoring Thank you for your consultation, will follow up with you. . Michaela Parekh MD Infectious Diseases Specialist [facility] ([facility]) M [phone] O [phone] Subjective Date of service: 01/29/18 Principal diagnosis: Acute hypoxic respiratory failure, severe sepsis with shock , encephalopathy Interval history: Remains intubated fiO2 30%, p5, sedated, no fever, sedated. Had a left large pneumothorax s/p CT placement yesterday. Microbiology: Blood cultures: 01/17 neg 01/20 ngtd Urine cultures: Respiratory cultures: TA 01/17 ngtd / Gram stain - many GPC in chains Current Antimicrobials: levaquin 01/23 flagyl 01/23 Previous Antimicrobials: Zosyn 01/18 Vancomycin 01/18 Objective - Exam Narrative Exam: General appearance: sedated on the vent Eyes: anicteric sclerae, moist conjunctivae; no lid-lag; PERRLA HENT: Atraumatic; oropharynx clear +ETT +NGT Neck: Trachea midline; supple, no thyromegaly or lymphadenopathy Lungs: juan rhonchi, left sided chest tube CV: tachy Abdomen: Soft, non-tender; distended Extremities: No peripheral edema or extremity lymphadenopathy Skin: . +bilateral hands, multiple fingers and sole and toes necrotic changes. Multiple skin tears and ecchymoses Psych: sedated Neuro: sedated Lines: right fem vascath, right IJ TLC - Constitutional Vitals: Vital Signs Temp Pulse Resp BP Pulse Ox 98.8 F 79 17 113/66 92 01/29/18 04:00 01/29/18 06:00 01/29/18 06:00 01/29/18 06:00 01/29/18 06:00 Temperature -Last 24 Hours Temperature 98.8 F Temperature 98.1 F Temperature 97.8 F Temperature 98.4 F Temperature 98.3 F - Labs CBC & Chem 7: 01/29/18 06:00 01/29/18 06:00 Labs: Abnormal lab results 01/28/18 01/28/18 01/28/18 Range/Units 06:30 11:30 18:08 WBC 24.8 H (4.5-11.0) K/mm3 RBC (3.65-5.03) M/mm3 Hgb (10.1-14.3) gm/dl Hct (30.3-42.9) % MCH (28-32) pg Seg Neuts % (Manual) 91.0 H (40.0-70.0) % Lymphocytes % (Manual) 4.0 L (13.4-35.0) % Seg Neutrophils # Man 22.6 H (1.8-7.7) K/mm3 Lymphocytes # (Manual) 1.0 L (1.2-5.4) K/mm3 Monocytes # (Manual) 1.0 H (0.0-0.8) K/mm3 Sodium (137-145) mmol/L Chloride (98-107) mmol/L BUN (7-17) mg/dL Creatinine (0.7-1.2) mg/dL Glucose (65-100) mg/dL POC Glucose 183 H 129 H (70-105) Calcium (8.4-10.2) mg/dL Total Protein (6.3-8.2) g/dL Albumin (3.9-5) g/dL 03/21/18 03/21/18 03/21/18 Range/Units 00:00 05:50 06:00 WBC 15.8 H (4.5-11.0) K/mm3 RBC 3.37 L (3.65-5.03) M/mm3 Hgb 9.1 L (10.1-14.3) gm/dl Hct 28.6 L (30.3-42.9) % MCH 27 L (28-32) pg Seg Neuts % (Manual) (40.0-70.0) % Lymphocytes % (Manual) (13.4-35.0) % Seg Neutrophils # Man (1.8-7.7) K/mm3 Lymphocytes # (Manual) (1.2-5.4) K/mm3 Monocytes # (Manual) (0.0-0.8) K/mm3 Sodium (137-145) mmol/L Chloride (98-107) mmol/L BUN (7-17) mg/dL Creatinine (0.7-1.2) mg/dL Glucose (65-100) mg/dL POC Glucose 111 H 120 H (70-105) Calcium (8.4-10.2) mg/dL Total Protein (6.3-8.2) g/dL Albumin (3.9-5) g/dL 01/29/18 Range/Units 06:00 WBC (4.5-11.0) K/mm3 RBC (3.65-5.03) M/mm3 Hgb (10.1-14.3) gm/dl Hct (30.3-42.9) % MCH (28-32) pg Seg Neuts % (Manual) (40.0-70.0) % Lymphocytes % (Manual) (13.4-35.0) % Seg Neutrophils # Man (1.8-7.7) K/mm3 Lymphocytes # (Manual) (1.2-5.4) K/mm3 Monocytes # (Manual) (0.0-0.8) K/mm3 Sodium 136 L (137-145) mmol/L Chloride 95.4 L (98-107) mmol/L BUN 94 H (7-17) mg/dL Creatinine 4.2 H (0.7-1.2) mg/dL Glucose 120 H (65-100) mg/dL POC Glucose (70-105) Calcium 6.5 L (8.4-10.2) mg/dL Total Protein 4.5 L (6.3-8.2) g/dL Albumin 2.0 L (3.9-5) g/dL
--- NOTE | 2018-01-29 08:24 | XRay Report ---
AP CHEST: HISTORY: Left chest tube, followup left pneumothorax The left chest tube appears to have been repositioned and now terminates near the left lung base. No residual or recurrent left pneumothorax is detected. Mild segmental atelectasis has developed in the lingula. The right lung remains generally clear. Heart size is stable. The remaining lines and support devices are in adequate position. IMPRESSION: No recurrent left pneumothorax identified.
[2018-01-29 09:19] LABS: Basophils % (Manual) 0 % (0.0-1.8); RBC Morphology Normal; Total Cells Counted 100
[2018-01-29] MEDS: ELIQUIS FEEDTUBE SCH ×3 (09:49→23:21)
[2018-01-29] MEDS: DELTASONE PO SCH ×2 (09:49→14:04)
[2018-01-29] MEDS: PEPCID PO SCH ×2 (09:49→14:06)
--- NOTE | 2018-01-29 11:12 | Progress Note ---
Assessment and Plan Assessment and plan: Acute hypercapnic respiratory failure -Likely from drug abuse and aspiration -VAP bundle -on vent support -Lung protective strategies, ARDS-net protocol Left Pneumothorax -s/p chest tube with immediate decompression of pleural space and reexpansion of the lung -Follow up serial chest x-ray Severe Sepsis with septic shock likely from aspiration pneumonia-POA -Shock resolved -abx per ID -Leukocytosis is improving -Left lobar infiltrate on admission -?pelvic abscess -IR evaluation for possible drainage and cx Penicillin allergy DM uncontrolled -Continue insulin therapy Shock required pressors -Resolved - likely from sepsis vs cardiogenic - Continue IV antibiotics - off pressors but required 3 pressors on admission Decompensated acute CHF - EF 30-35% on echo - cardiology following History of pacemaker insertion in 2008 post PCI History of CAD s/p PCI in 2008 JANESSA Etiology likely due to ATN from severe sepsis - monitor renal function, now on HD - HD per renal service - Avoid nephrotoxins, nephrology consulted Hyperkalemia -Continue hemodialysis History of cocaine and methamphetamine abuse Acute encephalopathy - Multifactorial, likely from drug abuse vs severe sepsis versus anoxic encephalopathy - CT head no acute finding - Pacemaker precludes getting MRI brain Ischemic hepatitis Elevated LFTs, etiology secondary to shock liver syndrome - Likely from severe hypotension causing shock liver - Continue to monitor Coagulopathy Etiology due to severe sepsis and abnormal liver function Bilateral finger Ischemic Changes possible secondary to pressors but potentiated by hx of from drug abuse, will get vascular consult Thrombocytopenia Etiology likely secondary to sepsis - Montior Disposition: Continue ICU monitoring, very poor prognosis. The high probability of a clinically significant, sudden or life threatening deterioration of the [multiorgan] system(s) required my full and direct attention, intervention and personal management. The aggregate critical care time was [31] minutes. This time is in addition to time spent performing reported procedures but includes the following: [x] Data Review and interpretation [x] Patient assessment and monitoring of vital signs [x] Documentation [x] Medication orders and management History Interval history: 62-year-old admitted with hx of htn, polysubstance drug abuse per family, admitted after she was found unresponsive found in the bathroom of a friends home, noted with severe lactic acidosis, hypotensive on vasopressors, hypercapenic respiratory failure requiring intubation . Hospitalist Physical - Constitutional Vitals: Temp Pulse Resp BP Pulse Ox 97.6 F 78 24 108/66 94 01/29/18 08:00 01/29/18 10:45 01/29/18 10:45 01/29/18 10:45 01/29/18 10:45 General appearance: Present: other (intubated) - EENT Eyes: Present: PERRL, EOM intact ENT: hearing intact, clear oral mucosa, dentition normal - Neck Neck: Present: supple, normal ROM - Respiratory Respiratory effort: normal Respiratory: bilateral: diminished, rhonchi - Cardiovascular Rhythm: regular Heart Sounds: Present: S1 & S2. Absent: gallop, rub - Extremities Extremities: no ischemia, No edema, Full ROM - Abdominal General gastrointestinal: soft, non-tender, non-distended, normal bowel sounds - Integumentary Integumentary: Present: clear, warm, dry - Neurologic Neurologic: CNII-XII intact, moves all extremities Results - Labs CBC & Chem 7: 01/29/18 06:00 01/29/18 06:00 Labs: Laboratory Last Values WBC 15.8 K/mm3 (4.5-11.0) H 01/29/18 06:00 RBC 3.37 M/mm3 (3.65-5.03) L 01/29/18 06:00 Hgb 9.1 gm/dl (10.1-14.3) L 01/29/18 06:00 Hct 28.6 % (30.3-42.9) L 01/29/18 06:00 MCV 85 fl (79-97) 01/29/18 06:00 MCH 27 pg (28-32) L 01/29/18 06:00 MCHC 32 % (30-34) 01/29/18 06:00 RDW 15.1 % (13.2-15.2) 01/29/18 06:00 Plt Count 275 K/mm3 (140-440) 01/29/18 06:00 Lymph % (Auto) Carrier Blower 01/17/18 16:54 Frederick % (Auto) Carrier Blower 01/17/18 16:54 Eos % (Auto) Carrier Blower 01/17/18 16:54 Baso % (Auto) Carrier Blower 01/17/18 16:54 Lymph # Carrier Blower 01/17/18 16:54 Frederick # Carrier Blower 01/17/18 16:54 Eos # Carrier Blower 01/17/18 16:54 Baso # Carrier Blower 01/17/18 16:54 Add Manual Diff Complete 01/29/18 06:00 Total Counted 100 01/29/18 06:00 Seg Neutrophils % Carrier Blower 01/29/18 06:00 Seg Neuts % (Manual) 87.0 % (40.0-70.0) H 01/29/18 06:00 Band Neutrophils % 0 % 01/29/18 06:00 Lymphocytes % (Manual) 7.0 % (13.4-35.0) L 01/29/18 06:00 Reactive Lymphs % (Man) 0 % 01/29/18 06:00 Monocytes % (Manual) 5.0 % (0.0-7.3) 01/29/18 06:00 Eosinophils % (Manual) 1.0 % (0.0-4.3) 01/29/18 06:00 Basophils % (Manual) 0 % (0.0-1.8) 01/29/18 06:00 Metamyelocytes % 0 % 01/29/18 06:00 Myelocytes % 0 % 01/29/18 06:00 Promyelocytes % 0 % 01/29/18 06:00 Blast Cells % 0 % 01/29/18 06:00 Nucleated RBC % Not Reportable 01/29/18 06:00 Seg Neutrophils # Carrier Blower 01/17/18 16:54 Seg Neutrophils # Man 13.7 K/mm3 (1.8-7.7) H 01/29/18 06:00 Band Neutrophils # 0.0 K/mm3 01/29/18 06:00 Lymphocytes # (Manual) 1.1 K/mm3 (1.2-5.4) L 01/29/18 06:00 Abs React Lymphs (Man) 0.0 K/mm3 01/29/18 06:00 Monocytes # (Manual) 0.8 K/mm3 (0.0-0.8) 01/29/18 06:00 Eosinophils # (Manual) 0.2 K/mm3 (0.0-0.4) 01/29/18 06:00 Basophils # (Manual) 0.0 K/mm3 (0.0-0.1) 01/29/18 06:00 Metamyelocytes # 0.0 K/mm3 01/29/18 06:00 Myelocytes # 0.0 K/mm3 01/29/18 06:00 Promyelocytes # 0.0 K/mm3 01/29/18 06:00 Blast Cells # 0.0 K/mm3 01/29/18 06:00 WBC Morphology Not Reportable 01/29/18 06:00 Hypersegmented Neuts Not Reportable 01/29/18 06:00 Hyposegmented Neuts Not Reportable 01/29/18 06:00 Hypogranular Neuts Not Reportable 01/29/18 06:00 Smudge Cells Not Reportable 01/29/18 06:00 Toxic Granulation Not Reportable 01/29/18 06:00 Toxic Vacuolation Not Reportable 01/29/18 06:00 Dohle Bodies Not Reportable 01/29/18 06:00 Pelger-Huet Anomaly Not Reportable 01/29/18 06:00 Opal Rods Not Reportable 01/29/18 06:00 Platelet Estimate Not Reportable 01/29/18 06:00 Clumped Platelets Not Reportable 01/29/18 06:00 Plt Clumps, EDTA Not Reportable 01/29/18 06:00 Large Platelets Not Reportable 01/29/18 06:00 Giant Platelets Not Reportable 01/29/18 06:00 Platelet Satelliting Not Reportable 01/29/18 06:00 Plt Morphology Comment Not Reportable 01/29/18 06:00 RBC Morphology Normal 01/29/18 06:00 Dimorphic RBCs Not Reportable 01/29/18 06:00 Polychromasia Not Reportable 01/29/18 06:00 Hypochromasia Not Reportable 01/29/18 06:00 Poikilocytosis Not Reportable 01/29/18 06:00 Anisocytosis Not Reportable 01/29/18 06:00 Microcytosis Not Reportable 01/29/18 06:00 Macrocytosis Not Reportable 01/29/18 06:00 Spherocytes Not Reportable 01/29/18 06:00 Pappenheimer Bodies Not Reportable 01/29/18 06:00 Sickle Cells Not Reportable 01/29/18 06:00 Target Cells Not Reportable 01/29/18 06:00 Tear Drop Cells Not Reportable 01/29/18 06:00 Ovalocytes Not Reportable 01/29/18 06:00 Stomatocytes Few 01/26/18 06:20 Helmet Cells Not Reportable 01/29/18 06:00 Frankel-Nicut Bodies Not Reportable 01/29/18 06:00 [facility] Rings Not Reportable 01/29/18 06:00 Jaclyn Cells Not Reportable 01/29/18 06:00 Bite Cells Not Reportable 01/29/18 06:00 Crenated Cell Not Reportable 01/29/18 06:00 Elliptocytes Not Reportable 01/29/18 06:00 Acanthocytes (Spur) Not Reportable 01/29/18 06:00 Rouleaux Not Reportable 01/29/18 06:00 Hemoglobin C Crystals Not Reportable 01/29/18 06:00 Schistocytes Not Reportable 01/29/18 06:00 Malaria parasites Not Reportable 01/29/18 06:00 Brock Bodies Not Reportable 01/29/18 06:00 Hem Pathologist Commnt No 01/29/18 06:00 PT 17.5 Sec. (12.2-14.9) H 01/20/18 07:00 INR 1.35 (0.87-1.13) H 01/20/18 07:00 Heparin Anti-Xa, Unfract Negative (Negative) 01/20/18 11:03 POC ABG pH 7.398 (7.35-7.45) 01/29/18 05:44 POC ABG pCO2 38.9 (35-45) 01/29/18 05:44 POC ABG pO2 84 (80-105) 01/29/18 05:44 POC ABG HCO3 24.0 01/29/18 05:44 POC ABG Total CO2 25 01/29/18 05:44 POC ABG O2 Sat 96 01/29/18 05:44 POC ABG Base Excess -1 01/29/18 05:44 VBG pH 7.273 (7.320-7.420) L 01/17/18 16:54 FiO2 30 % 01/29/18 05:44 Sodium 136 mmol/L (137-145) L 01/29/18 06:00 Potassium 4.2 mmol/L (3.6-5.0) 01/29/18 06:00 Chloride 95.4 mmol/L (98-107) L 01/29/18 06:00 Carbon Dioxide 25 mmol/L (22-30) 01/29/18 06:00 Anion Gap 20 mmol/L 01/29/18 06:00 BUN 94 mg/dL (7-17) H 01/29/18 06:00 Creatinine 4.2 mg/dL (0.7-1.2) H 01/29/18 06:00 Estimated GFR 11 ml/min 01/29/18 06:00 BUN/Creatinine Ratio 22 % 01/29/18 06:00 Glucose 120 mg/dL (65-100) H 01/29/18 06:00 POC Glucose 120 (70-105) H 01/29/18 05:50 Hemoglobin A1c 9.0 % (4-6) H 01/17/18 22:36 Lactic Acid 1.40 mmol/L (0.7-2.0) 01/24/18 15:08 Calcium 6.5 mg/dL (8.4-10.2) L 01/29/18 06:00 Magnesium 1.80 mg/dL (1.7-2.3) 01/29/18 06:00 Total Bilirubin 0.50 mg/dL (0.1-1.2) 01/29/18 06:00 AST 21 units/L (5-40) 01/29/18 06:00 ALT 53 units/L (7-56) 01/29/18 06:00 Alkaline Phosphatase 88 units/L (35-129) 01/29/18 06:00 C-Reactive Protein 3.30 mg/dL (0.00-1.30) H 01/24/18 15:08 Total Protein 4.5 g/dL (6.3-8.2) L 01/29/18 06:00 Albumin 2.0 g/dL (3.9-5) L 01/29/18 06:00 Albumin/Globulin Ratio 0.8 % 01/29/18 06:00 Serotonin Release Assay See scanned report 01/20/18 11:03 Random Vancomycin 19.8 ug/mL (0-40.0) 01/27/18 05:20 ALISA Screen Negative (Negative) 01/20/18 Unknown Heparin-induced Plt Ab Negative (Negative) 01/20/18 11:03 UF Heparin High Dose 0 % Release 01/20/18 11:03 NEGRITA UFH Low Dose 0.1 0 % Release 01/20/18 11:03 NEGRITA UFH Low Dose 0.5 0 % Release 01/20/18 11:03 Hepatitis A IgM Ab Non-reactive (NonReactive) 01/20/18 07:00 Hep Bs Antigen Non-reactive (Negative) 01/20/18 07:00 Hep B Core IgM Ab Non-reactive (NonReactive) 01/20/18 07:00 Hepatitis C Antibody Non-reactive (NonReactive) 01/20/18 07:00 HIV 1&2 Antibody Rapid Non react (Non React) 01/20/18 Unknown HIV P24 Antigen Non react (Non React) 01/20/18 Unknown
[2018-01-29] MEDS ORDERED: NACL 0.9% 100 ML IV PRN (11:19)
--- NOTE | 2018-01-29 11:51 | Progress Note ---
Assessment and Plan Impression: * Acute kidney injury secondary to ATN - on hemodialysis * Acute respiratory failure * Left pneumothorax s/p chest tube insertion * Sepsis * Pleural effusion * Cardiomyopathy * Anemia * Polysubstance abuse * Type II DM * Ischemic digits of hands/feet Plan: * HD q MWF and prn * UF as tolerated * Monitor for renal recovery * Consultants' recommendations noted * Abx per ID * Strict i/os * Avoid nephrotoxins * Daily lytes Subjective Date of service: 01/29/18 Principal diagnosis: Acute hypoxic respiratory failure, severe sepsis with shock , encephalopathy Interval history: 24h events reviewed. Objective - Vital Signs Vital signs: Vital Signs - 12hr 01/29/18 01/29/18 01/29/18 00:00 00:01 00:15 Temperature 98.1 F Pulse Rate 83 80 Pulse Rate [ Anterior Bilateral Throughout] Respiratory 19 19 Rate Respiratory Rate [Anterior Bilateral Throughout] Blood Pressure 105/56 105/56 O2 Sat by Pulse 95 95 Oximetry O2 Sat by Pulse Oximetry [ Anterior Bilateral Throughout] 01/29/18 01/29/18 01/29/18 00:30 00:45 01:00 Temperature Pulse Rate 80 75 84 Pulse Rate [ Anterior Bilateral Throughout] Respiratory 13 14 16 Rate Respiratory Rate [Anterior Bilateral Throughout] Blood Pressure 106/60 106/60 108/62 O2 Sat by Pulse 90 96 95 Oximetry O2 Sat by Pulse Oximetry [ Anterior Bilateral Throughout] 01/29/18 01/29/18 01/29/18 01:15 01:30 01:45 Temperature Pulse Rate 88 81 77 Pulse Rate [ Anterior Bilateral Throughout] Respiratory 23 19 13 Rate Respiratory Rate [Anterior Bilateral Throughout] Blood Pressure 108/62 107/61 107/61 O2 Sat by Pulse 93 96 92 Oximetry O2 Sat by Pulse Oximetry [ Anterior Bilateral Throughout] 01/29/18 01/29/18 01/29/18 02:00 02:15 02:30 Temperature Pulse Rate 81 85 88 Pulse Rate [ Anterior Bilateral Throughout] Respiratory 13 23 27 H Rate Respiratory Rate [Anterior Bilateral Throughout] Blood Pressure 120/68 120/68 131/80 O2 Sat by Pulse 97 98 97 Oximetry O2 Sat by Pulse Oximetry [ Anterior Bilateral Throughout] 01/29/18 01/29/18 01/29/18 02:45 03:00 03:15 Temperature Pulse Rate 81 85 83 Pulse Rate [ Anterior Bilateral Throughout] Respiratory 22 22 13 Rate Respiratory Rate [Anterior Bilateral Throughout] Blood Pressure 131/80 123/74 123/74 O2 Sat by Pulse 96 97 96 Oximetry O2 Sat by Pulse Oximetry [ Anterior Bilateral Throughout] 01/29/18 01/29/18 01/29/18 03:31 03:45 04:00 Temperature 98.8 F Pulse Rate 87 77 76 Pulse Rate [ 79 Anterior Bilateral Throughout] Respiratory 18 15 19 Rate Respiratory 16 Rate [Anterior Bilateral Throughout] Blood Pressure 111/61 111/61 114/65 O2 Sat by Pulse 96 96 96 Oximetry O2 Sat by Pulse Oximetry [ Anterior Bilateral Throughout] 01/29/18 01/29/18 01/29/18 04:15 04:31 04:45 Temperature Pulse Rate 74 92 H 77 Pulse Rate [ Anterior Bilateral Throughout] Respiratory 17 19 17 Rate Respiratory Rate [Anterior Bilateral Throughout] Blood Pressure 114/65 89/47 89/47 O2 Sat by Pulse 97 97 98 Oximetry O2 Sat by Pulse Oximetry [ Anterior Bilateral Throughout] 01/29/18 01/29/18 01/29/18 05:00 05:05 05:15 Temperature Pulse Rate 75 77 76 Pulse Rate [ Anterior Bilateral Throughout] Respiratory 17 10 L Rate Respiratory Rate [Anterior Bilateral Throughout] Blood Pressure 98/50 98/50 O2 Sat by Pulse 96 97 Oximetry O2 Sat by Pulse Oximetry [ Anterior Bilateral Throughout] 01/29/18 01/29/18 01/29/18 05:30 05:45 06:00 Temperature Pulse Rate 76 81 79 Pulse Rate [ Anterior Bilateral Throughout] Respiratory 12 22 17 Rate Respiratory Rate [Anterior Bilateral Throughout] Blood Pressure 105/59 98/50 113/66 O2 Sat by Pulse 97 93 92 Oximetry O2 Sat by Pulse Oximetry [ Anterior Bilateral Throughout] 01/29/18 01/29/18 01/29/18 06:15 06:31 06:45 Temperature Pulse Rate 77 84 72 Pulse Rate [ Anterior Bilateral Throughout] Respiratory 10 L 22 21 Rate Respiratory Rate [Anterior Bilateral Throughout] Blood Pressure 105/59 121/74 113/66 O2 Sat by Pulse 96 95 93 Oximetry O2 Sat by Pulse Oximetry [ Anterior Bilateral Throughout] 01/29/18 01/29/18 01/29/18 07:00 07:15 07:30 Temperature Pulse Rate 75 82 81 Pulse Rate [ Anterior Bilateral Throughout] Respiratory 17 17 17 Rate Respiratory Rate [Anterior Bilateral Throughout] Blood Pressure 95/52 121/74 100/58 O2 Sat by Pulse 90 98 96 Oximetry O2 Sat by Pulse Oximetry [ Anterior Bilateral Throughout] 01/29/18 01/29/18 01/29/18 07:45 08:00 08:15 Temperature 97.6 F Pulse Rate 75 83 82 Pulse Rate [ Anterior Bilateral Throughout] Respiratory 18 19 24 Rate Respiratory Rate [Anterior Bilateral Throughout] Blood Pressure 95/52 122/77 122/77 O2 Sat by Pulse 90 98 97 Oximetry O2 Sat by Pulse Oximetry [ Anterior Bilateral Throughout] 01/29/18 01/29/18 01/29/18 08:30 08:45 08:48 Temperature Pulse Rate 82 80 83 Pulse Rate [ Anterior Bilateral Throughout] Respiratory 22 19 Rate Respiratory Rate [Anterior Bilateral Throughout] Blood Pressure 99/58 122/77 99/58 O2 Sat by Pulse 97 97 95 Oximetry O2 Sat by Pulse Oximetry [ Anterior Bilateral Throughout] 01/29/18 01/29/18 01/29/18 09:00 09:07 09:15 Temperature Pulse Rate 77 84 Pulse Rate [ 82 Anterior Bilateral Throughout] Respiratory 24 14 Rate Respiratory 26 H Rate [Anterior Bilateral Throughout] Blood Pressure 105/59 99/58 O2 Sat by Pulse 95 94 Oximetry O2 Sat by Pulse Oximetry [ Anterior Bilateral Throughout] 01/29/18 01/29/18 01/29/18 09:20 09:30 09:45 Temperature Pulse Rate 76 75 Pulse Rate [ 90 Anterior Bilateral Throughout] Respiratory 22 20 Rate Respiratory 24 Rate [Anterior Bilateral Throughout] Blood Pressure 104/61 105/59 O2 Sat by Pulse 93 91 Oximetry O2 Sat by Pulse Oximetry [ Anterior Bilateral Throughout] 01/29/18 01/29/18 01/29/18 10:00 10:15 10:30 Temperature 97.6 F Pulse Rate 84 84 78 Pulse Rate [ Anterior Bilateral Throughout] Respiratory 19 22 23 Rate Respiratory Rate [Anterior Bilateral Throughout] Blood Pressure 117/54 117/54 115/60 O2 Sat by Pulse 98 95 96 Oximetry O2 Sat by Pulse 94 Oximetry [ Anterior Bilateral Throughout] 01/29/18 01/29/18 01/29/18 10:45 11:00 11:15 Temperature Pulse Rate 72 80 82 Pulse Rate [ Anterior Bilateral Throughout] Respiratory 24 Rate Respiratory Rate [Anterior Bilateral Throughout] Blood Pressure 117/64 101/60 110/64 O2 Sat by Pulse 94 Oximetry O2 Sat by Pulse Oximetry [ Anterior Bilateral Throughout] 01/29/18 01/29/18 11:30 11:45 Temperature Pulse Rate 73 76 Pulse Rate [ Anterior Bilateral Throughout] Respiratory Rate Respiratory Rate [Anterior Bilateral Throughout] Blood Pressure 102/51 92/64 O2 Sat by Pulse Oximetry O2 Sat by Pulse Oximetry [ Anterior Bilateral Throughout] - General Appearance General appearance: intubated EENT: ATNC, other (ETT in place) Respiratory: Present: Clear to Ascultation Cardiology: regular, S1S2 Gastrointestinal: normal, no tenderness, no distended Musculoskeletal: other (ischemic digits of hands/feet) - Lab 01/29/18 06:00 01/29/18 06:00 Most recent lab results Calcium 6.5 mg/dL (8.4-10.2) L 01/29/18 06:00 Magnesium 1.80 mg/dL (1.7-2.3) 01/29/18 06:00
--- NOTE | 2018-01-29 12:38 | Progress Note ---
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 Hyperkalemia History of cocaine abuse, Acute encephalopathy Lactic acidosis Thrombocytopenia - continue with mechanical ventilatory support (Daily SBT's as tolerated) - continue daily SAT's - s/p left chest tube for spontaneous pneumothorax with small volume sero- sanguinous drainage - advanced ETT to 23cm MARGOT - continue seroquel re: delirium - VAP bundle addressed - continue HD/UF per nephrology for toxin and volume clearance (M/W/F) - continue VTE prophylaxis with eliquis - trend CRP & lactate (Significantly improved) - continue steroid taper - continue stress ulcer prophylaxis - continue Empiric antibiotics, plan to de-escalate per ID recs - continue supplemental oxygen to wean for oxygen saturations >90% - Wean vasopressor support for MAP>65 - continue Lung protective strategies, ARDS-net protocol - continue other care per attending/other consultants ....remains critically ill on MVS and at high risk for further deterioration including ...35' CCT Subjective Date of service: 01/29/18 Principal diagnosis: Acute hypoxic respiratory failure, severe sepsis with shock , encephalopathy Interval history: Patient seen today for: Acute hypoxic respiratory failure, severe sepsis with shock, encephalopathy Seen and examined at bedside; 24-hour events reviewed; nursing and respiratory care staff consulted; no adverse overnight events reported to me; remains on MVS ; Tolerating HD/uf and remains dialysis dependent; responds to simple questions ; not tolerating PSV trials well today Objective Vital Signs - 12hr 01/29/18 01/29/18 01/29/18 00:45 01:00 01:15 Temperature Pulse Rate 75 84 88 Pulse Rate [ Anterior Bilateral Throughout] Respiratory 14 16 23 Rate Respiratory Rate [Anterior Bilateral Throughout] Blood Pressure 106/60 108/62 108/62 O2 Sat by Pulse 96 95 93 Oximetry O2 Sat by Pulse Oximetry [ Anterior Bilateral Throughout] 01/29/18 01/29/18 01/29/18 01:30 01:45 02:00 Temperature Pulse Rate 81 77 81 Pulse Rate [ Anterior Bilateral Throughout] Respiratory 19 13 13 Rate Respiratory Rate [Anterior Bilateral Throughout] Blood Pressure 107/61 107/61 120/68 O2 Sat by Pulse 96 92 97 Oximetry O2 Sat by Pulse Oximetry [ Anterior Bilateral Throughout] 01/29/18 01/29/18 01/29/18 02:15 02:30 02:45 Temperature Pulse Rate 85 88 81 Pulse Rate [ Anterior Bilateral Throughout] Respiratory 23 27 H 22 Rate Respiratory Rate [Anterior Bilateral Throughout] Blood Pressure 120/68 131/80 131/80 O2 Sat by Pulse 98 97 96 Oximetry O2 Sat by Pulse Oximetry [ Anterior Bilateral Throughout] 01/29/18 01/29/18 01/29/18 03:00 03:15 03:31 Temperature Pulse Rate 85 83 87 Pulse Rate [ Anterior Bilateral Throughout] Respiratory 22 13 18 Rate Respiratory Rate [Anterior Bilateral Throughout] Blood Pressure 123/74 123/74 111/61 O2 Sat by Pulse 97 96 96 Oximetry O2 Sat by Pulse Oximetry [ Anterior Bilateral Throughout] 01/29/18 01/29/18 01/29/18 03:45 04:00 04:15 Temperature 98.8 F Pulse Rate 77 76 74 Pulse Rate [ 79 Anterior Bilateral Throughout] Respiratory 15 19 17 Rate Respiratory 16 Rate [Anterior Bilateral Throughout] Blood Pressure 111/61 114/65 114/65 O2 Sat by Pulse 96 96 97 Oximetry O2 Sat by Pulse Oximetry [ Anterior Bilateral Throughout] 01/29/18 01/29/18 01/29/18 04:31 04:45 05:00 Temperature Pulse Rate 92 H 77 75 Pulse Rate [ Anterior Bilateral Throughout] Respiratory 19 17 17 Rate Respiratory Rate [Anterior Bilateral Throughout] Blood Pressure 89/47 89/47 98/50 O2 Sat by Pulse 97 98 96 Oximetry O2 Sat by Pulse Oximetry [ Anterior Bilateral Throughout] 01/29/18 01/29/18 01/29/18 05:05 05:15 05:30 Temperature Pulse Rate 77 76 76 Pulse Rate [ Anterior Bilateral Throughout] Respiratory 10 L 12 Rate Respiratory Rate [Anterior Bilateral Throughout] Blood Pressure 98/50 105/59 O2 Sat by Pulse 97 97 Oximetry O2 Sat by Pulse Oximetry [ Anterior Bilateral Throughout] 01/29/18 01/29/18 01/29/18 05:45 06:00 06:15 Temperature Pulse Rate 81 79 77 Pulse Rate [ Anterior Bilateral Throughout] Respiratory 22 17 10 L Rate Respiratory Rate [Anterior Bilateral Throughout] Blood Pressure 98/50 113/66 105/59 O2 Sat by Pulse 93 92 96 Oximetry O2 Sat by Pulse Oximetry [ Anterior Bilateral Throughout] 01/29/18 01/29/18 01/29/18 06:31 06:45 07:00 Temperature Pulse Rate 84 72 75 Pulse Rate [ Anterior Bilateral Throughout] Respiratory 22 21 17 Rate Respiratory Rate [Anterior Bilateral Throughout] Blood Pressure 121/74 113/66 95/52 O2 Sat by Pulse 95 93 90 Oximetry O2 Sat by Pulse Oximetry [ Anterior Bilateral Throughout] 01/29/18 01/29/18 01/29/18 07:15 07:30 07:45 Temperature Pulse Rate 82 81 75 Pulse Rate [ Anterior Bilateral Throughout] Respiratory 17 17 18 Rate Respiratory Rate [Anterior Bilateral Throughout] Blood Pressure 121/74 100/58 95/52 O2 Sat by Pulse 98 96 90 Oximetry O2 Sat by Pulse Oximetry [ Anterior Bilateral Throughout] 01/29/18 01/29/18 01/29/18 08:00 08:15 08:30 Temperature 97.6 F Pulse Rate 83 82 82 Pulse Rate [ Anterior Bilateral Throughout] Respiratory 19 24 22 Rate Respiratory Rate [Anterior Bilateral Throughout] Blood Pressure 122/77 122/77 99/58 O2 Sat by Pulse 98 97 97 Oximetry O2 Sat by Pulse Oximetry [ Anterior Bilateral Throughout] 01/29/18 01/29/18 01/29/18 08:45 08:48 09:00 Temperature Pulse Rate 80 83 77 Pulse Rate [ Anterior Bilateral Throughout] Respiratory 19 24 Rate Respiratory Rate [Anterior Bilateral Throughout] Blood Pressure 122/77 99/58 105/59 O2 Sat by Pulse 97 95 95 Oximetry O2 Sat by Pulse Oximetry [ Anterior Bilateral Throughout] 01/29/18 01/29/18 01/29/18 09:07 09:15 09:20 Temperature Pulse Rate 84 Pulse Rate [ 82 90 Anterior Bilateral Throughout] Respiratory 14 Rate Respiratory 26 H 24 Rate [Anterior Bilateral Throughout] Blood Pressure 99/58 O2 Sat by Pulse 94 Oximetry O2 Sat by Pulse Oximetry [ Anterior Bilateral Throughout] 01/29/18 01/29/18 01/29/18 09:30 09:45 10:00 Temperature 97.6 F Pulse Rate 76 75 84 Pulse Rate [ Anterior Bilateral Throughout] Respiratory 22 20 19 Rate Respiratory Rate [Anterior Bilateral Throughout] Blood Pressure 104/61 105/59 117/54 O2 Sat by Pulse 93 91 98 Oximetry O2 Sat by Pulse 94 Oximetry [ Anterior Bilateral Throughout] 01/29/18 01/29/18 01/29/18 10:15 10:30 10:45 Temperature Pulse Rate 84 78 72 Pulse Rate [ Anterior Bilateral Throughout] Respiratory 22 23 24 Rate Respiratory Rate [Anterior Bilateral Throughout] Blood Pressure 117/54 115/60 117/64 O2 Sat by Pulse 95 96 94 Oximetry O2 Sat by Pulse Oximetry [ Anterior Bilateral Throughout] 01/29/18 01/29/18 01/29/18 11:00 11:15 11:30 Temperature Pulse Rate 80 82 73 Pulse Rate [ Anterior Bilateral Throughout] Respiratory Rate Respiratory Rate [Anterior Bilateral Throughout] Blood Pressure 101/60 110/64 102/51 O2 Sat by Pulse Oximetry O2 Sat by Pulse Oximetry [ Anterior Bilateral Throughout] 01/29/18 01/29/18 01/29/18 11:45 12:00 12:15 Temperature Pulse Rate 76 81 79 Pulse Rate [ Anterior Bilateral Throughout] Respiratory Rate Respiratory Rate [Anterior Bilateral Throughout] Blood Pressure 92/64 109/66 99/68 O2 Sat by Pulse Oximetry O2 Sat by Pulse Oximetry [ Anterior Bilateral Throughout] 01/29/18 12:30 Temperature Pulse Rate 90 Pulse Rate [ Anterior Bilateral Throughout] Respiratory Rate Respiratory Rate [Anterior Bilateral Throughout] Blood Pressure 96/56 O2 Sat by Pulse Oximetry O2 Sat by Pulse Oximetry [ Anterior Bilateral Throughout] Constitutional: no acute distress Eyes: non-icteric ENT: oropharynx moist, other (ETT 20 cm MARGOT and advanced to 23cm MARGOT) Neck: supple, no lymphadenopathy, no JVD Effort: mildly labored Ascultation: Bilateral: diminished breath sounds, rales Percussion: Bilateral: not dull Cardiovascular: regular rate and rhythm, other (no rubs or murmurs) Gastrointestinal: normoactive bowel sounds, soft, non-tender, non-distended, other (no [place] HSM) Integumentary: normal Extremities: no cyanosis, no edema, pink and warm, pulses normal Neurologic: non-focal exam (grossly), pupils equal and round, CN II-XII normal, motor strength normal and Psychiatric: other (calm) CBC and BMP: 02/01/18 04:00 02/03/18 04:45 ABG, PT/INR, D-dimer: ABG POC ABG pH 7.398 (7.35-7.45) 01/29/18 05:44 POC ABG pCO2 38.9 (35-45) 01/29/18 05:44 POC ABG pO2 84 (80-105) 01/29/18 05:44 POC ABG HCO3 24.0 01/29/18 05:44 POC ABG Total CO2 25 01/29/18 05:44 POC ABG O2 Sat 96 01/29/18 05:44 PT/INR, D-dimer PT 17.5 Sec. (12.2-14.9) H 01/20/18 07:00 INR 1.35 (0.87-1.13) H 01/20/18 07:00 Abnormal lab findings: Abnormal Labs 01/17/18 01/17/18 01/17/18 15:25 16:15 16:48 WBC RBC Hgb Hct MCH Plt Count Seg Neuts % (Manual) Lymphocytes % (Manual) Monocytes % (Manual) Nucleated RBC % Seg Neutrophils # Man Lymphocytes # (Manual) Monocytes # (Manual) PT INR POC ABG pH 7.099 L POC ABG pCO2 58.9 H POC ABG pO2 149 H VBG pH Sodium Potassium Chloride Carbon Dioxide BUN Creatinine Glucose POC Glucose < 40 L 121 H Hemoglobin A1c Lactic Acid Calcium Total Bilirubin AST ALT Alkaline Phosphatase C-Reactive Protein Total Protein Albumin 01/17/18 01/17/18 01/17/18 16:54 16:54 16:54 WBC RBC Hgb Hct MCH Plt Count Seg Neuts % (Manual) 72.0 H Lymphocytes % (Manual) 3.0 L Monocytes % (Manual) Nucleated RBC % Seg Neutrophils # Man Lymphocytes # (Manual) 0.2 L Monocytes # (Manual) PT 18.5 H INR 1.45 H POC ABG pH POC ABG pCO2 POC ABG pO2 VBG pH Sodium 136 L Potassium Chloride 97.8 L Carbon Dioxide 16 L BUN 43 H Creatinine 3.3 H Glucose 121 H POC Glucose Hemoglobin A1c Lactic Acid Calcium 6.7 L Total Bilirubin AST ALT Alkaline Phosphatase C-Reactive Protein Total Protein 4.4 L Albumin 2.3 L 01/17/18 01/17/18 01/17/18 16:54 16:54 17:11 WBC RBC Hgb Hct MCH Plt Count Seg Neuts % (Manual) Lymphocytes % (Manual) Monocytes % (Manual) Nucleated RBC % Seg Neutrophils # Man Lymphocytes # (Manual) Monocytes # (Manual) PT INR POC ABG pH POC ABG pCO2 POC ABG pO2 VBG pH 7.273 L Sodium Potassium Chloride Carbon Dioxide BUN Creatinine Glucose POC Glucose Hemoglobin A1c Lactic Acid 4.70 H* 4.30 H* Calcium Total Bilirubin AST ALT Alkaline Phosphatase C-Reactive Protein Total Protein Albumin 01/17/18 01/17/18 01/17/18 18:02 18:15 19:21 WBC RBC Hgb Hct MCH Plt Count Seg Neuts % (Manual) Lymphocytes % (Manual) Monocytes % (Manual) Nucleated RBC % Seg Neutrophils # Man Lymphocytes # (Manual) Monocytes # (Manual) PT INR POC ABG pH 7.177 L POC ABG pCO2 POC ABG pO2 VBG pH Sodium Potassium Chloride Carbon Dioxide BUN Creatinine Glucose POC Glucose < 40 L Hemoglobin A1c Lactic Acid 3.00 H* Calcium Total Bilirubin AST ALT Alkaline Phosphatase C-Reactive Protein Total Protein Albumin 01/17/18 01/17/18 01/17/18 22:36 22:36 23:16 WBC RBC Hgb Hct MCH Plt Count Seg Neuts % (Manual) Lymphocytes % (Manual) Monocytes % (Manual) Nucleated RBC % Seg Neutrophils # Man Lymphocytes # (Manual) Monocytes # (Manual) PT INR POC ABG pH 7.112 L POC ABG pCO2 50.1 H POC ABG pO2 50 L VBG pH Sodium Potassium Chloride Carbon Dioxide BUN Creatinine Glucose POC Glucose Hemoglobin A1c 9.0 H Lactic Acid 5.50 H* Calcium Total Bilirubin AST ALT Alkaline Phosphatase C-Reactive Protein Total Protein Albumin 01/18/18 01/18/18 01/18/18 01:26 03:21 03:21 WBC RBC Hgb Hct MCH Plt Count Seg Neuts % (Manual) 27.0 L Lymphocytes % (Manual) 3.0 L Monocytes % (Manual) 14.0 H Nucleated RBC % Seg Neutrophils # Man Lymphocytes # (Manual) 0.3 L Monocytes # (Manual) 1.4 H PT INR POC ABG pH POC ABG pCO2 POC ABG pO2 VBG pH Sodium Potassium Chloride Carbon Dioxide BUN Creatinine Glucose POC Glucose 107 H Hemoglobin A1c Lactic Acid 8.00 H* Calcium Total Bilirubin AST ALT Alkaline Phosphatase C-Reactive Protein Total Protein Albumin 01/18/18 01/18/18 01/18/18 03:21 04:40 05:07 WBC RBC Hgb Hct MCH Plt Count Seg Neuts % (Manual) Lymphocytes % (Manual) Monocytes % (Manual) Nucleated RBC % Seg Neutrophils # Man Lymphocytes # (Manual) Monocytes # (Manual) PT INR POC ABG pH 7.093 L POC ABG pCO2 31.5 L POC ABG pO2 77 L VBG pH Sodium Potassium Chloride 96.9 L Carbon Dioxide 14 L BUN 47 H Creatinine 3.4 H Glucose POC Glucose Hemoglobin A1c Lactic Acid 11.10 H* Calcium 6.4 L Total Bilirubin AST 47 H ALT Alkaline Phosphatase C-Reactive Protein Total Protein 4.3 L Albumin 2.4 L 01/18/18 01/18/18 01/18/18 06:29 07:06 11:44 WBC RBC Hgb Hct MCH Plt Count Seg Neuts % (Manual) Lymphocytes % (Manual) Monocytes % (Manual) Nucleated RBC % Seg Neutrophils # Man Lymphocytes # (Manual) Monocytes # (Manual) PT INR POC ABG pH POC ABG pCO2 POC ABG pO2 VBG pH Sodium Potassium Chloride Carbon Dioxide BUN Creatinine Glucose POC Glucose 47 L 149 H < 40 L Hemoglobin A1c Lactic Acid Calcium Total Bilirubin AST ALT Alkaline Phosphatase C-Reactive Protein Total Protein Albumin 01/18/18 01/18/18 01/18/18 11:46 14:15 18:01 WBC RBC Hgb Hct MCH Plt Count Seg Neuts % (Manual) Lymphocytes % (Manual) Monocytes % (Manual) Nucleated RBC % Seg Neutrophils # Man Lymphocytes # (Manual) Monocytes # (Manual) PT INR POC ABG pH POC ABG pCO2 POC ABG pO2 VBG pH Sodium Potassium Chloride Carbon Dioxide BUN Creatinine Glucose POC Glucose 116 H < 40 L Hemoglobin A1c Lactic Acid 10.00 H* Calcium Total Bilirubin AST ALT Alkaline Phosphatase C-Reactive Protein Total Protein Albumin 01/18/18 01/18/18 01/18/18 18:02 23:25 23:27 WBC RBC Hgb Hct MCH Plt Count Seg Neuts % (Manual) Lymphocytes % (Manual) Monocytes % (Manual) Nucleated RBC % Seg Neutrophils # Man Lymphocytes # (Manual) Monocytes # (Manual) PT INR POC ABG pH POC ABG pCO2 POC ABG pO2 VBG pH Sodium Potassium Chloride Carbon Dioxide BUN Creatinine Glucose POC Glucose 136 H < 40 L < 40 L Hemoglobin A1c Lactic Acid Calcium Total Bilirubin AST ALT Alkaline Phosphatase C-Reactive Protein Total Protein Albumin 01/19/18 01/19/18 01/19/18 04:02 06:50 06:50 WBC 18.5 H RBC Hgb Hct MCH Plt Count 136 L Seg Neuts % (Manual) 86.0 H Lymphocytes % (Manual) 4.0 L Monocytes % (Manual) Nucleated RBC % Seg Neutrophils # Man 15.9 H Lymphocytes # (Manual) 0.7 L Monocytes # (Manual) 1.1 H PT 21.3 H INR 1.73 H POC ABG pH POC ABG pCO2 28.3 L POC ABG pO2 57 L VBG pH Sodium Potassium Chloride Carbon Dioxide BUN Creatinine Glucose POC Glucose Hemoglobin A1c Lactic Acid Calcium Total Bilirubin AST ALT Alkaline Phosphatase C-Reactive Protein Total Protein Albumin 01/19/18 01/19/18 01/19/18 06:50 08:45 11:17 WBC RBC Hgb Hct MCH Plt Count Seg Neuts % (Manual) Lymphocytes % (Manual) Monocytes % (Manual) Nucleated RBC % Seg Neutrophils # Man Lymphocytes # (Manual) Monocytes # (Manual) PT INR POC ABG pH POC ABG pCO2 POC ABG pO2 VBG pH Sodium 135 L Potassium Chloride 92.8 L Carbon Dioxide 19 L BUN 31 H Creatinine 2.6 H Glucose POC Glucose 110 H Hemoglobin A1c Lactic Acid 7.90 H* Calcium 7.1 L Total Bilirubin 1.60 H AST 2526 H ALT 1187 H Alkaline Phosphatase 133 H C-Reactive Protein Total Protein 4.8 L Albumin 2.0 L 01/19/18 01/19/18 01/19/18 11:31 22:12 23:34 WBC RBC Hgb Hct MCH Plt Count Seg Neuts % (Manual) Lymphocytes % (Manual) Monocytes % (Manual) Nucleated RBC % Seg Neutrophils # Man Lymphocytes # (Manual) Monocytes # (Manual) PT INR POC ABG pH POC ABG pCO2 31.6 L POC ABG pO2 59 L VBG pH Sodium Potassium Chloride Carbon Dioxide BUN Creatinine Glucose POC Glucose 131 H 53 L Hemoglobin A1c Lactic Acid Calcium Total Bilirubin AST ALT Alkaline Phosphatase C-Reactive Protein Total Protein Albumin 01/20/18 01/20/18 01/20/18 05:18 05:18 05:19 WBC 19.7 H RBC Hgb Hct MCH 27 L Plt Count 84 L Seg Neuts % (Manual) 84.0 H Lymphocytes % (Manual) 2.0 L Monocytes % (Manual) 8.0 H Nucleated RBC % Seg Neutrophils # Man 16.5 H Lymphocytes # (Manual) 0.4 L Monocytes # (Manual) 1.6 H PT INR POC ABG pH POC ABG pCO2 POC ABG pO2 VBG pH Sodium 136 L Potassium Chloride 96.9 L Carbon Dioxide 17 L BUN 65 H Creatinine 4.1 H D Glucose 104 H POC Glucose 125 H Hemoglobin A1c Lactic Acid Calcium 7.1 L Total Bilirubin 1.60 H AST 1702 H ALT 1141 H Alkaline Phosphatase 172 H C-Reactive Protein Total Protein 5.0 L Albumin 1.7 L 01/20/18 01/20/18 01/20/18 07:00 11:48 13:54 WBC RBC Hgb Hct MCH Plt Count Seg Neuts % (Manual) Lymphocytes % (Manual) Monocytes % (Manual) Nucleated RBC % Seg Neutrophils # Man Lymphocytes # (Manual) Monocytes # (Manual) PT 17.5 H INR 1.35 H POC ABG pH POC ABG pCO2 POC ABG pO2 VBG pH Sodium Potassium Chloride Carbon Dioxide BUN Creatinine Glucose POC Glucose 109 H Hemoglobin A1c Lactic Acid Calcium Total Bilirubin AST ALT Alkaline Phosphatase C-Reactive Protein 37.50 H Total Protein Albumin 01/20/18 01/20/18 01/20/18 17:28 17:51 20:50 WBC RBC Hgb Hct MCH Plt Count Seg Neuts % (Manual) Lymphocytes % (Manual) Monocytes % (Manual) Nucleated RBC % Seg Neutrophils # Man Lymphocytes # (Manual) Monocytes # (Manual) PT INR POC ABG pH POC ABG pCO2 POC ABG pO2 VBG pH Sodium Potassium Chloride Carbon Dioxide BUN Creatinine Glucose POC Glucose 140 H Hemoglobin A1c Lactic Acid 2.70 H* 2.30 H* Calcium Total Bilirubin AST ALT Alkaline Phosphatase C-Reactive Protein Total Protein Albumin 01/20/18 01/20/18 01/21/18 23:55 Unknown 00:12 WBC RBC Hgb Hct MCH Plt Count Seg Neuts % (Manual) Lymphocytes % (Manual) Monocytes % (Manual) Nucleated RBC % Seg Neutrophils # Man Lymphocytes # (Manual) Monocytes # (Manual) PT INR POC ABG pH POC ABG pCO2 POC ABG pO2 VBG pH Sodium Potassium Chloride Carbon Dioxide BUN Creatinine Glucose POC Glucose 149 H 134 H Hemoglobin A1c Lactic Acid 2.50 H* Calcium Total Bilirubin AST ALT Alkaline Phosphatase C-Reactive Protein Total Protein Albumin 01/21/18 01/21/18 01/21/18 04:27 05:00 05:00 WBC 21.7 H RBC Hgb Hct MCH 27 L Plt Count 67 L Seg Neuts % (Manual) 71.0 H Lymphocytes % (Manual) 9.0 L Monocytes % (Manual) Nucleated RBC % 4.0 H Seg Neutrophils # Man 15.4 H Lymphocytes # (Manual) Monocytes # (Manual) PT INR POC ABG pH POC ABG pCO2 33.8 L POC ABG pO2 72 L VBG pH Sodium Potassium Chloride Carbon Dioxide 21 L BUN 71 H Creatinine 4.1 H Glucose 149 H POC Glucose Hemoglobin A1c Lactic Acid Calcium 7.5 L Total Bilirubin AST 494 H ALT 780 H Alkaline Phosphatase 151 H C-Reactive Protein Total Protein 4.9 L Albumin 1.9 L 01/21/18 01/21/18 01/21/18 05:00 05:18 12:20 WBC RBC Hgb Hct MCH Plt Count Seg Neuts % (Manual) Lymphocytes % (Manual) Monocytes % (Manual) Nucleated RBC % Seg Neutrophils # Man Lymphocytes # (Manual) Monocytes # (Manual) PT INR POC ABG pH POC ABG pCO2 POC ABG pO2 VBG pH Sodium Potassium Chloride Carbon Dioxide BUN Creatinine Glucose POC Glucose 132 H 158 H Hemoglobin A1c Lactic Acid 2.10 H* Calcium Total Bilirubin AST ALT Alkaline Phosphatase C-Reactive Protein Total Protein Albumin 01/21/18 01/21/18 01/22/18 18:07 23:40 03:48 WBC RBC Hgb Hct MCH Plt Count Seg Neuts % (Manual) Lymphocytes % (Manual) Monocytes % (Manual) Nucleated RBC % Seg Neutrophils # Man Lymphocytes # (Manual) Monocytes # (Manual) PT INR POC ABG pH POC ABG pCO2 POC ABG pO2 65 L VBG pH Sodium Potassium Chloride Carbon Dioxide BUN Creatinine Glucose POC Glucose 143 H 136 H Hemoglobin A1c Lactic Acid Calcium Total Bilirubin AST ALT Alkaline Phosphatase C-Reactive Protein Total Protein Albumin 01/22/18 01/22/18 01/22/18 04:10 04:10 05:56 WBC 24.9 H RBC Hgb Hct MCH 27 L Plt Count 80 L Seg Neuts % (Manual) Lymphocytes % (Manual) Monocytes % (Manual) Nucleated RBC % Seg Neutrophils # Man Lymphocytes # (Manual) Monocytes # (Manual) PT INR POC ABG pH POC ABG pCO2 POC ABG pO2 VBG pH Sodium Potassium Chloride 97.7 L Carbon Dioxide BUN 72 H Creatinine 3.6 H Glucose 145 H POC Glucose 139 H Hemoglobin A1c Lactic Acid Calcium 7.3 L Total Bilirubin AST 146 H ALT 547 H Alkaline Phosphatase C-Reactive Protein Total Protein 5.2 L Albumin 2.3 L 01/22/18 01/22/18 01/23/18 11:30 17:41 00:00 WBC RBC Hgb Hct MCH Plt Count Seg Neuts % (Manual) Lymphocytes % (Manual) Monocytes % (Manual) Nucleated RBC % Seg Neutrophils # Man Lymphocytes # (Manual) Monocytes # (Manual) PT INR POC ABG pH POC ABG pCO2 POC ABG pO2 VBG pH Sodium Potassium Chloride Carbon Dioxide BUN Creatinine Glucose POC Glucose 156 H 185 H 150 H Hemoglobin A1c Lactic Acid Calcium Total Bilirubin AST ALT Alkaline Phosphatase C-Reactive Protein Total Protein Albumin 01/23/18 01/23/18 01/23/18 04:39 05:24 11:38 WBC RBC Hgb Hct MCH Plt Count Seg Neuts % (Manual) Lymphocytes % (Manual) Monocytes % (Manual) Nucleated RBC % Seg Neutrophils # Man Lymphocytes # (Manual) Monocytes # (Manual) PT INR POC ABG pH POC ABG pCO2 31.9 L POC ABG pO2 62 L VBG pH Sodium Potassium Chloride Carbon Dioxide BUN Creatinine Glucose POC Glucose 215 H 182 H Hemoglobin A1c Lactic Acid Calcium Total Bilirubin AST ALT Alkaline Phosphatase C-Reactive Protein Total Protein Albumin 01/23/18 01/23/18 01/24/18 14:20 17:26 00:10 WBC RBC Hgb Hct MCH Plt Count Seg Neuts % (Manual) Lymphocytes % (Manual) Monocytes % (Manual) Nucleated RBC % Seg Neutrophils # Man Lymphocytes # (Manual) Monocytes # (Manual) PT INR POC ABG pH POC ABG pCO2 31.4 L POC ABG pO2 55 L VBG pH Sodium Potassium Chloride Carbon Dioxide BUN Creatinine Glucose POC Glucose 252 H 225 H Hemoglobin A1c Lactic Acid Calcium Total Bilirubin AST ALT Alkaline Phosphatase C-Reactive Protein Total Protein Albumin 01/24/18 01/24/18 01/24/18 03:40 03:40 06:06 WBC 34.5 H RBC Hgb Hct MCH 27 L Plt Count 130 L Seg Neuts % (Manual) Lymphocytes % (Manual) Monocytes % (Manual) Nucleated RBC % Seg Neutrophils # Man Lymphocytes # (Manual) Monocytes # (Manual) PT INR POC ABG pH POC ABG pCO2 POC ABG pO2 VBG pH Sodium Potassium 5.7 H D Chloride 95.6 L Carbon Dioxide 20 L BUN 96 H Creatinine 4.2 H Glucose 166 H POC Glucose 162 H Hemoglobin A1c Lactic Acid Calcium 7.3 L Total Bilirubin AST 52 H ALT 235 H Alkaline Phosphatase C-Reactive Protein Total Protein 5.1 L Albumin 2.5 L 01/24/18 01/24/18 01/24/18 11:36 15:08 17:32 WBC RBC Hgb Hct MCH Plt Count Seg Neuts % (Manual) Lymphocytes % (Manual) Monocytes % (Manual) Nucleated RBC % Seg Neutrophils # Man Lymphocytes # (Manual) Monocytes # (Manual) PT INR POC ABG pH POC ABG pCO2 POC ABG pO2 VBG pH Sodium Potassium Chloride Carbon Dioxide BUN Creatinine Glucose POC Glucose 160 H 160 H Hemoglobin A1c Lactic Acid Calcium Total Bilirubin AST ALT Alkaline Phosphatase C-Reactive Protein 3.30 H Total Protein Albumin 01/25/18 01/25/18 01/25/18 00:04 04:34 05:25 WBC RBC Hgb Hct MCH Plt Count Seg Neuts % (Manual) Lymphocytes % (Manual) Monocytes % (Manual) Nucleated RBC % Seg Neutrophils # Man Lymphocytes # (Manual) Monocytes # (Manual) PT INR POC ABG pH 7.342 L POC ABG pCO2 48.7 H POC ABG pO2 VBG pH Sodium Potassium Chloride Carbon Dioxide BUN Creatinine Glucose POC Glucose 169 H 133 H Hemoglobin A1c Lactic Acid Calcium Total Bilirubin AST ALT Alkaline Phosphatase C-Reactive Protein Total Protein Albumin 01/25/18 01/25/18 01/25/18 11:46 17:42 23:50 WBC RBC Hgb Hct MCH Plt Count Seg Neuts % (Manual) Lymphocytes % (Manual) Monocytes % (Manual) Nucleated RBC % Seg Neutrophils # Man Lymphocytes # (Manual) Monocytes # (Manual) PT INR POC ABG pH POC ABG pCO2 POC ABG pO2 VBG pH Sodium Potassium Chloride Carbon Dioxide BUN Creatinine Glucose POC Glucose 121 H 150 H 149 H Hemoglobin A1c Lactic Acid Calcium Total Bilirubin AST ALT Alkaline Phosphatase C-Reactive Protein Total Protein Albumin 01/26/18 01/26/18 01/26/18 04:13 05:25 06:20 WBC 21.0 H RBC Hgb Hct MCH Plt Count Seg Neuts % (Manual) 95.0 H Lymphocytes % (Manual) 1.0 L Monocytes % (Manual) Nucleated RBC % Seg Neutrophils # Man 20.0 H Lymphocytes # (Manual) 0.2 L Monocytes # (Manual) PT INR POC ABG pH POC ABG pCO2 POC ABG pO2 70 L VBG pH Sodium Potassium Chloride Carbon Dioxide BUN Creatinine Glucose POC Glucose 107 H Hemoglobin A1c Lactic Acid Calcium Total Bilirubin AST ALT Alkaline Phosphatase C-Reactive Protein Total Protein Albumin 01/26/18 01/26/18 01/26/18 06:20 12:19 18:09 WBC RBC Hgb Hct MCH Plt Count Seg Neuts % (Manual) Lymphocytes % (Manual) Monocytes % (Manual) Nucleated RBC % Seg Neutrophils # Man Lymphocytes # (Manual) Monocytes # (Manual) PT INR POC ABG pH POC ABG pCO2 POC ABG pO2 VBG pH Sodium Potassium 5.9 H Chloride 95.7 L Carbon Dioxide BUN 102 H Creatinine 4.6 H Glucose POC Glucose 151 H 110 H Hemoglobin A1c Lactic Acid Calcium 6.6 L Total Bilirubin AST ALT Alkaline Phosphatase C-Reactive Protein Total Protein Albumin 01/27/18 01/27/18 01/27/18 00:17 05:20 05:20 WBC 23.3 H RBC Hgb Hct MCH 27 L Plt Count Seg Neuts % (Manual) 97.0 H Lymphocytes % (Manual) 0 L Monocytes % (Manual) Nucleated RBC % Seg Neutrophils # Man 22.6 H Lymphocytes # (Manual) 0.0 L Monocytes # (Manual) PT INR POC ABG pH POC ABG pCO2 POC ABG pO2 VBG pH Sodium Potassium 5.7 H Chloride 93.9 L Carbon Dioxide 21 L BUN 121 H Creatinine 5.2 H Glucose 131 H POC Glucose 159 H Hemoglobin A1c Lactic Acid Calcium 6.1 L Total Bilirubin AST ALT Alkaline Phosphatase C-Reactive Protein Total Protein Albumin 01/27/18 01/27/18 01/27/18 05:43 12:16 17:32 WBC RBC Hgb Hct MCH Plt Count Seg Neuts % (Manual) Lymphocytes % (Manual) Monocytes % (Manual) Nucleated RBC % Seg Neutrophils # Man Lymphocytes # (Manual) Monocytes # (Manual) PT INR POC ABG pH POC ABG pCO2 POC ABG pO2 VBG pH Sodium Potassium Chloride Carbon Dioxide BUN Creatinine Glucose POC Glucose 121 H 161 H 146 H Hemoglobin A1c Lactic Acid Calcium Total Bilirubin AST ALT Alkaline Phosphatase C-Reactive Protein Total Protein Albumin 01/28/18 01/28/18 01/28/18 00:05 04:24 05:43 WBC RBC Hgb Hct MCH Plt Count Seg Neuts % (Manual) Lymphocytes % (Manual) Monocytes % (Manual) Nucleated RBC % Seg Neutrophils # Man Lymphocytes # (Manual) Monocytes # (Manual) PT INR POC ABG pH POC ABG pCO2 POC ABG pO2 77 L VBG pH Sodium Potassium Chloride Carbon Dioxide BUN Creatinine Glucose POC Glucose 128 H 137 H Hemoglobin A1c Lactic Acid Calcium Total Bilirubin AST ALT Alkaline Phosphatase C-Reactive Protein Total Protein Albumin 01/28/18 01/28/18 01/28/18 06:30 06:30 11:30 WBC 24.8 H RBC Hgb Hct MCH Plt Count Seg Neuts % (Manual) 91.0 H Lymphocytes % (Manual) 4.0 L Monocytes % (Manual) Nucleated RBC % Seg Neutrophils # Man 22.6 H Lymphocytes # (Manual) 1.0 L Monocytes # (Manual) 1.0 H PT INR POC ABG pH POC ABG pCO2 POC ABG pO2 VBG pH Sodium Potassium Chloride 95.2 L Carbon Dioxide BUN 70 H Creatinine 3.7 H Glucose 135 H POC Glucose 183 H Hemoglobin A1c Lactic Acid Calcium 6.4 L Total Bilirubin AST ALT Alkaline Phosphatase C-Reactive Protein Total Protein Albumin 01/28/18 01/29/18 01/29/18 18:08 00:00 05:50 WBC RBC Hgb Hct MCH Plt Count Seg Neuts % (Manual) Lymphocytes % (Manual) Monocytes % (Manual) Nucleated RBC % Seg Neutrophils # Man Lymphocytes # (Manual) Monocytes # (Manual) PT INR POC ABG pH POC ABG pCO2 POC ABG pO2 VBG pH Sodium Potassium Chloride Carbon Dioxide BUN Creatinine Glucose POC Glucose 129 H 111 H 120 H Hemoglobin A1c Lactic Acid Calcium Total Bilirubin AST ALT Alkaline Phosphatase C-Reactive Protein Total Protein Albumin 01/29/18 01/29/18 01/29/18 06:00 06:00 12:29 WBC 15.8 H RBC 3.37 L Hgb 9.1 L Hct 28.6 L MCH 27 L Plt Count Seg Neuts % (Manual) 87.0 H Lymphocytes % (Manual) 7.0 L Monocytes % (Manual) Nucleated RBC % Seg Neutrophils # Man 13.7 H Lymphocytes # (Manual) 1.1 L Monocytes # (Manual) PT INR POC ABG pH POC ABG pCO2 POC ABG pO2 VBG pH Sodium 136 L Potassium Chloride 95.4 L Carbon Dioxide BUN 94 H Creatinine 4.2 H Glucose 120 H POC Glucose 134 H Hemoglobin A1c Lactic Acid Calcium 6.5 L Total Bilirubin AST ALT Alkaline Phosphatase C-Reactive Protein Total Protein 4.5 L Albumin 2.0 L Chest x-ray: image reviewed Allied health notes reviewed: nursing
[2018-01-29] MEDS ORDERED: LOPRESSOR IV PRN (14:00)
[2018-01-29] MEDS: SODIUM CHLORIDE FLUSH SYRINGE 10 ML IV SCH ×2 (14:10→23:22)
[2018-01-29] MEDS: HEPARIN IV PRN (14:17)
[2018-01-29] MEDS: DILAUDID IV PRN (18:29)
[2018-01-29] MEDS: LEVAQUIN 750MG/150ML 750 MG/150 ML BAG IV SCH (18:30)
[2018-01-30] MEDS: HumaLOG SUB-Q SCH ×4 (00:47→18:01)
[2018-01-30] MEDS: FLAGYL 500 MG/100 ML 500 MG/100 ML BAG IV SCH (01:35)
[2018-01-30] MEDS ORDERED: NACL 0.9% 500 ML 500 ML IV ONE (02:47)
[2018-01-30] MEDS: DUONEB *Not for PRN Use IH SCH ×4 (03:01→19:42)
[2018-01-30 06:59] LABS: Hematocrit 26.2 % (30.3-42.9); Hemoglobin 8.4 gm/dl (10.1-14.3); Mean Corpuscular HGB Conc 32 % (30-34); Mean Corpuscular Hemoglobin 27 pg (28-32); Mean Corpuscular Volume 85 fl (79-97); Platelet Count 263 K/mm3 (140-440); Red Blood Count 3.09 M/mm3 (3.65-5.03)
[2018-01-30 07:20] LABS: Calcium 6.7 mg/dL (8.4-10.2)
--- NOTE | 2018-01-30 08:40 | Progress Note ---
Assessment and Plan Assessment: 1) Severe sepsis with septic shock and MODS: shock resolved, fever resolved and leukocytosis better 34-->23-->24-->15K. Etiology most likely unclear. DDx: pneumonia ? pelvic collections? large left sided pneumothorax -blood cx negative -legs US neg for DVT -CRP=37 -HIV neg -ALISA neg 2) Acute respiratory failure - better s/p Chest tube due to large left sided pneumothorax on 01/28 3) Presumed pneumonia: -repeat CXR - decreased effusion -TA no growth -CT chest left minimal pleural effusion and infiltrate 4) JANESSA: on HD 5) Large left sided pneumothorax s/p CT on 01/28 6) DM-poorly controlled 7) Bilateral fingers ischemic changes: from pressors ? 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 flushing ? zosyn allergy 11) Acute encephalopathy 12) Pelvic collections x 3: ? etiology -CT showed non obstructed left kidney stones, large left pelvic cyst 8.8 x 5.7 cm, LLL atelectasis minimal pleural effusion 13) Penicillin allergy Plan: -stop levaquin and flagyl - day 8 (day 14 counting previous abx) -monitor leukocytosis off antibiotics -consider IR eval to drain large left pelvic cyst 8.8 x 5.7 cm -chest tube monitoring Thank you for your consultation, will follow up with you. . Michaela Parekh MD Infectious Diseases Specialist [facility] [id number] [phone] Subjective Date of service: 01/30/18 Principal diagnosis: Acute hypoxic respiratory failure, severe sepsis with shock , encephalopathy Interval history: Remains intubated fiO2 30%, p5, sedated, no fever, sedated. Microbiology: Blood cultures: 01/17 neg 01/20 ngtd Urine cultures: Respiratory cultures: TA 01/17 ngtd / Gram stain - many GPC in chains Current Antimicrobials: levaquin 01/23 flagyl 01/23 Previous Antimicrobials: Zosyn 01/18 Vancomycin 01/18 Objective - Exam Narrative Exam: General appearance: sedated on the vent Eyes: anicteric sclerae, moist conjunctivae; no lid-lag; PERRLA HENT: Atraumatic; oropharynx clear +ETT +NGT Neck: Trachea midline; supple, no thyromegaly or lymphadenopathy Lungs: juan rhonchi, left sided chest tube CV: tachy Abdomen: Soft, non-tender; distended Extremities: No peripheral edema or extremity lymphadenopathy Skin: . +bilateral hands, multiple fingers and sole and toes necrotic changes. Multiple skin tears and ecchymoses Psych: sedated Neuro: sedated Lines: right fem vascath, right IJ TLC - Constitutional Vitals: Vital Signs Temp Pulse Resp BP Pulse Ox 98.2 F 77 19 111/51 91 01/30/18 08:00 01/30/18 06:00 01/30/18 06:00 01/30/18 06:00 01/30/18 06:00 Temperature -Last 24 Hours Temperature 98.2 F Temperature 98.9 F Temperature 98.5 F Temperature 97.5 F Temperature 98.8 F Temperature 97.6 F Temperature 98.2 F Temperature 97.6 F - Labs CBC & Chem 7: 01/30/18 Unknown 01/30/18 Unknown Labs: Abnormal lab results 01/29/18 01/29/18 01/29/18 Range/Units 06:00 12:29 18:32 WBC (4.5-11.0) K/mm3 RBC (3.65-5.03) M/mm3 Hgb (10.1-14.3) gm/dl Hct (30.3-42.9) % MCH (28-32) pg Seg Neuts % (Manual) 87.0 H (40.0-70.0) % Lymphocytes % (Manual) 7.0 L (13.4-35.0) % Seg Neutrophils # Man 13.7 H (1.8-7.7) K/mm3 Lymphocytes # (Manual) 1.1 L (1.2-5.4) K/mm3 POC ABG pH (7.35-7.45) BUN (7-17) mg/dL Creatinine (0.7-1.2) mg/dL Glucose (65-100) mg/dL POC Glucose 134 H 158 H (70-105) Calcium (8.4-10.2) mg/dL 01/30/18 01/30/18 01/30/18 Range/Units 00:12 04:47 Unknown WBC 12.8 H (4.5-11.0) K/mm3 RBC 3.09 L (3.65-5.03) M/mm3 Hgb 8.4 L (10.1-14.3) gm/dl Hct 26.2 L (30.3-42.9) % MCH 27 L (28-32) pg Seg Neuts % (Manual) (40.0-70.0) % Lymphocytes % (Manual) (13.4-35.0) % Seg Neutrophils # Man (1.8-7.7) K/mm3 Lymphocytes # (Manual) (1.2-5.4) K/mm3 POC ABG pH 7.456 H (7.35-7.45) BUN (7-17) mg/dL Creatinine (0.7-1.2) mg/dL Glucose (65-100) mg/dL POC Glucose 155 H (70-105) Calcium (8.4-10.2) mg/dL 01/30/18 Range/Units Unknown WBC (4.5-11.0) K/mm3 RBC (3.65-5.03) M/mm3 Hgb (10.1-14.3) gm/dl Hct (30.3-42.9) % MCH (28-32) pg Seg Neuts % (Manual) (40.0-70.0) % Lymphocytes % (Manual) (13.4-35.0) % Seg Neutrophils # Man (1.8-7.7) K/mm3 Lymphocytes # (Manual) (1.2-5.4) K/mm3 POC ABG pH (7.35-7.45) BUN 52 H (7-17) mg/dL Creatinine 2.9 H (0.7-1.2) mg/dL Glucose 105 H (65-100) mg/dL POC Glucose (70-105) Calcium 6.7 L (8.4-10.2) mg/dL
[2018-01-30] MEDS ORDERED: DELTASONE PO SCH (10:00)
[2018-01-30] MEDS: ELIQUIS FEEDTUBE SCH (10:03)
[2018-01-30] MEDS: PEPCID PO SCH (10:03)
[2018-01-30] MEDS: DILAUDID IV PRN ×3 (10:05→21:00)
[2018-01-30] MEDS: SODIUM CHLORIDE FLUSH SYRINGE 10 ML IV SCH ×3 (10:30→21:00)
--- NOTE | 2018-01-30 10:41 | Progress Note ---
Assessment and Plan Assessment and plan: Acute hypercapnic respiratory failure -Likely from drug abuse and aspiration -VAP bundle -on vent support -Lung protective strategies, ARDS-net protocol Left Pneumothorax -s/p chest tube with immediate decompression of pleural space and reexpansion of the lung -Follow up serial chest x-ray Severe Sepsis with septic shock likely from aspiration pneumonia-POA -Shock resolved -abx on hold per ID -Leukocytosis is improving -Left lobar infiltrate on admission -?pelvic abscess -IR consulted for evaluation for possible drainage and cx Penicillin allergy DM uncontrolled -Continue insulin therapy Shock required pressors -Resolved -likely from sepsis vs cardiogenic -off pressors but required 3 pressors on admission Bilateral upper and lower extremity ischemia/necrosis Etiology secondary to sepsis and previous pressors. Decompensated acute CHF - EF 30-35% on echo - cardiology following History of pacemaker insertion in 2008 post PCI History of CAD s/p PCI in 2008 JANESSA Etiology likely due to ATN from severe sepsis - monitor renal function, now on HD - HD per renal service - Avoid nephrotoxins, nephrology consulted Hyperkalemia -Continue hemodialysis History of cocaine and methamphetamine abuse Acute encephalopathy - Multifactorial, likely from drug abuse vs severe sepsis versus anoxic encephalopathy - CT head no acute finding - Pacemaker precludes getting MRI brain Ischemic hepatitis Elevated LFTs, etiology secondary to shock liver syndrome - Likely from severe hypotension causing shock liver - Continue to monitor Coagulopathy Etiology due to severe sepsis and abnormal liver function Bilateral finger Ischemic Changes possible secondary to pressors but potentiated by hx of from drug abuse, will get vascular consult Thrombocytopenia Etiology likely secondary to sepsis - Montior Disposition: Continue ICU monitoring, very poor prognosis. The high probability of a clinically significant, sudden or life threatening deterioration of the [multiorgan] system(s) required my full and direct attention, intervention and personal management. The aggregate critical care time was [33] minutes. This time is in addition to time spent performing reported procedures but includes the following: [x] Data Review and interpretation [x] Patient assessment and monitoring of vital signs [x] Documentation [x] Medication orders and management History Interval history: 62-year-old admitted with hx of htn, polysubstance drug abuse per family, admitted after she was found unresponsive found in the bathroom of a friends home, noted with severe lactic acidosis, hypotensive on vasopressors, hypercapenic respiratory failure requiring intubation . Hospitalist Physical - Constitutional Vitals: Temp Pulse Resp BP Pulse Ox 98.2 F 70 20 128/63 100 01/30/18 08:00 01/30/18 09:30 01/30/18 10:05 01/30/18 09:30 01/30/18 09:30 General appearance: Present: other (intubated) - EENT Eyes: Present: PERRL, EOM intact ENT: hearing intact, clear oral mucosa, dentition normal - Neck Neck: Present: supple, normal ROM - Respiratory Respiratory effort: normal Respiratory: bilateral: CTA - Cardiovascular Rhythm: regular Heart Sounds: Present: S1 & S2. Absent: gallop, rub - Extremities Extremities: No edema, Full ROM Extremity abnormal: cyanosis (Bilateral feet, toes and fingers) - Abdominal General gastrointestinal: soft, non-tender, non-distended, normal bowel sounds - Integumentary Integumentary: Present: dry - Neurologic Neurologic: CNII-XII intact, moves all extremities Results - Labs CBC & Chem 7: 01/30/18 Unknown 01/30/18 Unknown Labs: Laboratory Last Values WBC 12.8 K/mm3 (4.5-11.0) H 01/30/18 Unknown RBC 3.09 M/mm3 (3.65-5.03) L 01/30/18 Unknown Hgb 8.4 gm/dl (10.1-14.3) L 01/30/18 Unknown Hct 26.2 % (30.3-42.9) L 01/30/18 Unknown MCV 85 fl (79-97) 01/30/18 Unknown MCH 27 pg (28-32) L 01/30/18 Unknown MCHC 32 % (30-34) 01/30/18 Unknown RDW 15.0 % (13.2-15.2) 01/30/18 Unknown Plt Count 263 K/mm3 (140-440) 01/30/18 Unknown Lymph % (Auto) Livestock Feeder 01/17/18 16:54 [place] % (Auto) Livestock Feeder 01/17/18 16:54 Eos % (Auto) Livestock Feeder 01/17/18 16:54 Baso % (Auto) Livestock Feeder 01/17/18 16:54 Lymph # Livestock Feeder 01/17/18 16:54 [place] # Livestock Feeder 01/17/18 16:54 Eos # Livestock Feeder 01/17/18 16:54 Baso # Livestock Feeder 01/17/18 16:54 Add Manual Diff Complete 01/29/18 06:00 Total Counted 100 01/29/18 06:00 Seg Neutrophils % Livestock Feeder 01/29/18 06:00 Seg Neuts % (Manual) 87.0 % (40.0-70.0) H 01/29/18 06:00 Band Neutrophils % 0 % 01/29/18 06:00 Lymphocytes % (Manual) 7.0 % (13.4-35.0) L 01/29/18 06:00 Reactive Lymphs % (Man) 0 % 01/29/18 06:00 Monocytes % (Manual) 5.0 % (0.0-7.3) 01/29/18 06:00 Eosinophils % (Manual) 1.0 % (0.0-4.3) 01/29/18 06:00 Basophils % (Manual) 0 % (0.0-1.8) 01/29/18 06:00 Metamyelocytes % 0 % 01/29/18 06:00 Myelocytes % 0 % 01/29/18 06:00 Promyelocytes % 0 % 01/29/18 06:00 Blast Cells % 0 % 01/29/18 06:00 Nucleated RBC % Not Reportable 01/29/18 06:00 Seg Neutrophils # Livestock Feeder 01/17/18 16:54 Seg Neutrophils # Man 13.7 K/mm3 (1.8-7.7) H 01/29/18 06:00 Band Neutrophils # 0.0 K/mm3 01/29/18 06:00 Lymphocytes # (Manual) 1.1 K/mm3 (1.2-5.4) L 01/29/18 06:00 Abs React Lymphs (Man) 0.0 K/mm3 01/29/18 06:00 Monocytes # (Manual) 0.8 K/mm3 (0.0-0.8) 01/29/18 06:00 Eosinophils # (Manual) 0.2 K/mm3 (0.0-0.4) 01/29/18 06:00 Basophils # (Manual) 0.0 K/mm3 (0.0-0.1) 01/29/18 06:00 Metamyelocytes # 0.0 K/mm3 01/29/18 06:00 Myelocytes # 0.0 K/mm3 01/29/18 06:00 Promyelocytes # 0.0 K/mm3 01/29/18 06:00 Blast Cells # 0.0 K/mm3 01/29/18 06:00 WBC Morphology Not Reportable 01/29/18 06:00 Hypersegmented Neuts Not Reportable 01/29/18 06:00 Hyposegmented Neuts Not Reportable 01/29/18 06:00 Hypogranular Neuts Not Reportable 01/29/18 06:00 Smudge Cells Not Reportable 01/29/18 06:00 Toxic Granulation Not Reportable 01/29/18 06:00 Toxic Vacuolation Not Reportable 01/29/18 06:00 Dohle Bodies Not Reportable 01/29/18 06:00 Pelger-Huet Anomaly Not Reportable 01/29/18 06:00 Opal Rods Not Reportable 01/29/18 06:00 Platelet Estimate Not Reportable 01/29/18 06:00 Clumped Platelets Not Reportable 01/29/18 06:00 Plt Clumps, EDTA Not Reportable 01/29/18 06:00 Large Platelets Not Reportable 01/29/18 06:00 Giant Platelets Not Reportable 01/29/18 06:00 Platelet Satelliting Not Reportable 01/29/18 06:00 Plt Morphology Comment Not Reportable 01/29/18 06:00 RBC Morphology Normal 01/29/18 06:00 Dimorphic RBCs Not Reportable 01/29/18 06:00 Polychromasia Not Reportable 01/29/18 06:00 Hypochromasia Not Reportable 01/29/18 06:00 Poikilocytosis Not Reportable 01/29/18 06:00 Anisocytosis Not Reportable 01/29/18 06:00 Microcytosis Not Reportable 01/29/18 06:00 Macrocytosis Not Reportable 01/29/18 06:00 Spherocytes Not Reportable 01/29/18 06:00 Pappenheimer Bodies Not Reportable 01/29/18 06:00 Sickle Cells Not Reportable 01/29/18 06:00 Target Cells Not Reportable 01/29/18 06:00 Tear Drop Cells Not Reportable 01/29/18 06:00 Ovalocytes Not Reportable 01/29/18 06:00 Stomatocytes Few 01/26/18 06:20 Helmet Cells Not Reportable 01/29/18 06:00 [place] Bodies Not Reportable 01/29/18 06:00 [place] Rings Not Reportable 01/29/18 06:00 [place] Cells Not Reportable 01/29/18 06:00 Bite Cells Not Reportable 01/29/18 06:00 Crenated Cell Not Reportable 01/29/18 06:00 Elliptocytes Not Reportable 01/29/18 06:00 Acanthocytes (Spur) Not Reportable 01/29/18 06:00 Rouleaux Not Reportable 01/29/18 06:00 Hemoglobin C Crystals Not Reportable 01/29/18 06:00 Schistocytes Not Reportable 01/29/18 06:00 Malaria parasites Not Reportable 01/29/18 06:00 Brock Bodies Not Reportable 01/29/18 06:00 Hem Pathologist Commnt No 01/29/18 06:00 PT 17.5 Sec. (12.2-14.9) H 01/20/18 07:00 INR 1.35 (0.87-1.13) H 01/20/18 07:00 Heparin Anti-Xa, Unfract Negative (Negative) 01/20/18 11:03 POC ABG pH 7.456 (7.35-7.45) H 01/30/18 04:47 POC ABG pCO2 36.5 (35-45) 01/30/18 04:47 POC ABG pO2 82 (80-105) 01/30/18 04:47 POC ABG HCO3 25.7 01/30/18 04:47 POC ABG Total CO2 27 01/30/18 04:47 POC ABG O2 Sat 97 01/30/18 04:47 POC ABG Base Excess 2 01/30/18 04:47 VBG pH 7.273 (7.320-7.420) L 01/17/18 16:54 FiO2 30 % 01/30/18 04:47 Sodium 140 mmol/L (137-145) 01/30/18 Unknown Potassium 3.8 mmol/L (3.6-5.0) 01/30/18 Unknown Chloride 100.1 mmol/L (98-107) 01/30/18 Unknown Carbon Dioxide 26 mmol/L (22-30) 01/30/18 Unknown Anion Gap 18 mmol/L 01/30/18 Unknown BUN 52 mg/dL (7-17) H 01/30/18 Unknown Creatinine 2.9 mg/dL (0.7-1.2) H 01/30/18 Unknown Estimated GFR 16 ml/min 01/30/18 Unknown BUN/Creatinine Ratio 18 % 01/30/18 Unknown Glucose 105 mg/dL (65-100) H 01/30/18 Unknown POC Glucose 96 (70-105) 01/30/18 05:33 Hemoglobin A1c 9.0 % (4-6) H 01/17/18 22:36 Lactic Acid 1.40 mmol/L (0.7-2.0) 01/24/18 15:08 Calcium 6.7 mg/dL (8.4-10.2) L 01/30/18 Unknown Magnesium 1.80 mg/dL (1.7-2.3) 01/29/18 06:00 Total Bilirubin 0.50 mg/dL (0.1-1.2) 01/29/18 06:00 AST 21 units/L (5-40) 01/29/18 06:00 ALT 53 units/L (7-56) 01/29/18 06:00 Alkaline Phosphatase 88 units/L (35-129) 01/29/18 06:00 C-Reactive Protein 3.30 mg/dL (0.00-1.30) H 01/24/18 15:08 Total Protein 4.5 g/dL (6.3-8.2) L 01/29/18 06:00 Albumin 2.0 g/dL (3.9-5) L 01/29/18 06:00 Albumin/Globulin Ratio 0.8 % 01/29/18 06:00 Serotonin Release Assay See scanned report 01/20/18 11:03 Random Vancomycin 19.8 ug/mL (0-40.0) 01/27/18 05:20 ALISA Screen Negative (Negative) 01/20/18 Unknown Heparin-induced Plt Ab Negative (Negative) 01/20/18 11:03 UF Heparin High Dose 0 % Release 01/20/18 11:03 NEGRITA UFH Low Dose 0.1 0 % Release 01/20/18 11:03 NEGRITA UFH Low Dose 0.5 0 % Release 01/20/18 11:03 Hepatitis A IgM Ab Non-reactive (NonReactive) 01/20/18 07:00 Hep Bs Antigen Non-reactive (Negative) 01/20/18 07:00 Hep B Core IgM Ab Non-reactive (NonReactive) 01/20/18 07:00 Hepatitis C Antibody Non-reactive (NonReactive) 01/20/18 07:00 HIV 1&2 Antibody Rapid Non react (Non React) 01/20/18 Unknown HIV P24 Antigen Non react (Non React) 01/20/18 Unknown
--- NOTE | 2018-01-30 10:49 | Progress Note ---
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 She completes antibiotics today -IR to place trialysis catheter, neck veins, discontinue the femoral HD catheter - VAP bundle addressed - continue daily SATs - HD/UF per nephrology for toxin and volume clearance - continue steroid taper - continue stress ulcer prophylaxis - continue supplemental oxygen to wean for oxygen saturations >90% - continue other care per attending/other consultants ....remains critically ill on MVS and at high risk for further deterioration including Subjective Date of service: 01/30/18 Principal diagnosis: Acute hypoxic respiratory failure, severe sepsis with shock , encephalopathy Interval history: Patient seen today for: Seen and examined at bedside; 24-hour events reviewed; nursing and respiratory care staff consulted; no adverse overnight events reported to me; Awake and alert, mouthing "water". Did not tolerate PSV trial today. HIT panel negative. Vitals, labs, medications, chart reviewed. Discussed in IDT rounds Objective - Exam Narrative Exam: General appearance: obese, ETT to MVS, awake and alert, mouthing words. No dyssynchrony Eyes: anicteric sclerae, moist conjunctivae; no lid-lag; PERRLA HENT: Atraumatic; oropharynx clear +ETT +NGT Neck: Trachea midline; supple, no thyromegaly or lymphadenopathy Lungs: juan rhonchi, left sided chest tube Breasts with induration and sloughing CV: tachy Abdomen: Soft, non-tender; distended Extremities: No peripheral edema or extremity lymphadenopathy Skin: . +bilateral hands, multiple fingers and sole and toes necrotic changes. Multiple skin tears and ecchymoses Psych:Flat affect Neuro:Obeys simple commands, non-focal neurology Lines: right fem vascath, right IJ TLC Vital Signs - 12hr 01/29/18 01/29/18 01/29/18 23:00 23:15 23:30 Temperature Pulse Rate 84 82 84 Pulse Rate [ Anterior Bilateral Throughout] Respiratory 14 14 14 Rate Respiratory Rate [Anterior Bilateral Throughout] Blood Pressure 103/60 95/58 101/58 O2 Sat by Pulse 100 100 100 Oximetry 01/29/18 01/29/18 01/30/18 23:45 23:48 00:00 Temperature 98.5 F Pulse Rate 75 74 Pulse Rate [ Anterior Bilateral Throughout] Respiratory 14 14 Rate Respiratory Rate [Anterior Bilateral Throughout] Blood Pressure 104/56 82/44 O2 Sat by Pulse 100 100 Oximetry 01/30/18 01/30/18 01/30/18 00:15 00:30 00:45 Temperature Pulse Rate 90 90 81 Pulse Rate [ Anterior Bilateral Throughout] Respiratory 13 15 13 Rate Respiratory Rate [Anterior Bilateral Throughout] Blood Pressure 82/42 87/46 O2 Sat by Pulse 100 Oximetry 01/30/18 01/30/18 01/30/18 01:00 01:15 01:30 Temperature Pulse Rate 82 82 85 Pulse Rate [ Anterior Bilateral Throughout] Respiratory 15 20 15 Rate Respiratory Rate [Anterior Bilateral Throughout] Blood Pressure 76/42 81/44 92/53 O2 Sat by Pulse 100 98 Oximetry 01/30/18 01/30/18 01/30/18 01:45 02:00 02:15 Temperature Pulse Rate 87 85 77 Pulse Rate [ Anterior Bilateral Throughout] Respiratory 18 19 17 Rate Respiratory Rate [Anterior Bilateral Throughout] Blood Pressure 93/50 76/43 84/42 O2 Sat by Pulse 99 97 98 Oximetry 01/30/18 01/30/18 01/30/18 02:30 02:45 03:00 Temperature Pulse Rate 73 78 81 Pulse Rate [ Anterior Bilateral Throughout] Respiratory 19 19 15 Rate Respiratory Rate [Anterior Bilateral Throughout] Blood Pressure 85/44 81/42 96/52 O2 Sat by Pulse 99 99 100 Oximetry 01/30/18 01/30/18 01/30/18 03:15 03:30 03:45 Temperature Pulse Rate 77 83 83 Pulse Rate [ Anterior Bilateral Throughout] Respiratory 14 15 19 Rate Respiratory Rate [Anterior Bilateral Throughout] Blood Pressure 101/55 105/53 84/42 O2 Sat by Pulse 100 99 98 Oximetry 01/30/18 01/30/18 01/30/18 04:00 04:15 04:30 Temperature 98.9 F Pulse Rate 85 79 77 Pulse Rate [ Anterior Bilateral Throughout] Respiratory 14 20 18 Rate Respiratory Rate [Anterior Bilateral Throughout] Blood Pressure 116/58 99/53 93/47 O2 Sat by Pulse 97 96 97 Oximetry 01/30/18 01/30/18 01/30/18 04:45 04:47 05:00 Temperature Pulse Rate 79 79 74 Pulse Rate [ Anterior Bilateral Throughout] Respiratory 16 17 Rate Respiratory Rate [Anterior Bilateral Throughout] Blood Pressure 95/51 95/51 94/44 O2 Sat by Pulse 94 94 97 Oximetry 01/30/18 01/30/18 01/30/18 05:15 05:30 05:45 Temperature Pulse Rate 79 87 81 Pulse Rate [ Anterior Bilateral Throughout] Respiratory 17 21 22 Rate Respiratory Rate [Anterior Bilateral Throughout] Blood Pressure 96/50 111/53 110/56 O2 Sat by Pulse 95 98 94 Oximetry 01/30/18 01/30/18 01/30/18 06:00 06:15 06:30 Temperature Pulse Rate 77 78 79 Pulse Rate [ Anterior Bilateral Throughout] Respiratory 19 18 17 Rate Respiratory Rate [Anterior Bilateral Throughout] Blood Pressure 111/51 105/58 102/52 O2 Sat by Pulse 91 90 90 Oximetry 01/30/18 01/30/18 01/30/18 06:45 07:00 07:15 Temperature Pulse Rate 74 90 81 Pulse Rate [ Anterior Bilateral Throughout] Respiratory 18 15 25 H Rate Respiratory Rate [Anterior Bilateral Throughout] Blood Pressure 111/50 117/56 119/51 O2 Sat by Pulse 97 98 93 Oximetry 01/30/18 01/30/18 01/30/18 07:30 07:45 08:00 Temperature 98.2 F Pulse Rate 99 H 77 75 Pulse Rate [ Anterior Bilateral Throughout] Respiratory 14 22 22 Rate Respiratory Rate [Anterior Bilateral Throughout] Blood Pressure 115/70 99/53 110/49 O2 Sat by Pulse 99 99 100 Oximetry 01/30/18 01/30/18 01/30/18 08:15 08:30 08:45 Temperature Pulse Rate 72 71 69 Pulse Rate [ Anterior Bilateral Throughout] Respiratory 19 17 18 Rate Respiratory Rate [Anterior Bilateral Throughout] Blood Pressure 109/58 114/58 111/59 O2 Sat by Pulse 100 100 100 Oximetry 01/30/18 01/30/18 01/30/18 09:00 09:15 09:20 Temperature Pulse Rate 76 76 80 Pulse Rate [ Anterior Bilateral Throughout] Respiratory 22 19 Rate Respiratory Rate [Anterior Bilateral Throughout] Blood Pressure 111/57 109/57 109/57 O2 Sat by Pulse 100 100 100 Oximetry 01/30/18 01/30/18 01/30/18 09:21 09:28 09:30 Temperature Pulse Rate 74 70 Pulse Rate [ 74 Anterior Bilateral Throughout] Respiratory 18 Rate Respiratory 14 Rate [Anterior Bilateral Throughout] Blood Pressure 109/57 128/63 O2 Sat by Pulse 98 100 Oximetry 01/30/18 10:05 Temperature Pulse Rate Pulse Rate [ Anterior Bilateral Throughout] Respiratory 20 Rate Respiratory Rate [Anterior Bilateral Throughout] Blood Pressure O2 Sat by Pulse Oximetry Constitutional: no acute distress Eyes: non-icteric ENT: oropharynx moist, other (ETT 20 cm MARGOT and advanced to 23cm MARGOT) Neck: supple, no lymphadenopathy, no JVD Effort: mildly labored Ascultation: Bilateral: diminished breath sounds, rales Percussion: Bilateral: not dull Cardiovascular: regular rate and rhythm, other (no rubs or murmurs) Gastrointestinal: normoactive bowel sounds, soft, non-tender, non-distended, other (no [place] HSM) Integumentary: normal Extremities: no cyanosis, no edema, pink and warm, pulses normal Neurologic: non-focal exam (grossly), pupils equal and round, CN II-XII normal, motor strength normal and Psychiatric: other (calm) CBC and BMP: 01/31/18 04:50 01/31/18 04:50 ABG, PT/INR, D-dimer: ABG POC ABG pH 7.456 (7.35-7.45) H 01/30/18 04:47 POC ABG pCO2 36.5 (35-45) 01/30/18 04:47 POC ABG pO2 82 (80-105) 01/30/18 04:47 POC ABG HCO3 25.7 01/30/18 04:47 POC ABG Total CO2 27 01/30/18 04:47 POC ABG O2 Sat 97 01/30/18 04:47 PT/INR, D-dimer PT 17.5 Sec. (12.2-14.9) H 01/20/18 07:00 INR 1.35 (0.87-1.13) H 01/20/18 07:00 Abnormal lab findings: Abnormal Labs 01/17/18 01/17/18 01/17/18 15:25 16:15 16:48 WBC RBC Hgb Hct MCH Plt Count Seg Neuts % (Manual) Lymphocytes % (Manual) Monocytes % (Manual) Nucleated RBC % Seg Neutrophils # Man Lymphocytes # (Manual) Monocytes # (Manual) PT INR POC ABG pH 7.099 L POC ABG pCO2 58.9 H POC ABG pO2 149 H VBG pH Sodium Potassium Chloride Carbon Dioxide BUN Creatinine Glucose POC Glucose < 40 L 121 H Hemoglobin A1c Lactic Acid Calcium Total Bilirubin AST ALT Alkaline Phosphatase C-Reactive Protein Total Protein Albumin 01/17/18 01/17/18 01/17/18 16:54 16:54 16:54 WBC RBC Hgb Hct MCH Plt Count Seg Neuts % (Manual) 72.0 H Lymphocytes % (Manual) 3.0 L Monocytes % (Manual) Nucleated RBC % Seg Neutrophils # Man Lymphocytes # (Manual) 0.2 L Monocytes # (Manual) PT 18.5 H INR 1.45 H POC ABG pH POC ABG pCO2 POC ABG pO2 VBG pH Sodium 136 L Potassium Chloride 97.8 L Carbon Dioxide 16 L BUN 43 H Creatinine 3.3 H Glucose 121 H POC Glucose Hemoglobin A1c Lactic Acid Calcium 6.7 L Total Bilirubin AST ALT Alkaline Phosphatase C-Reactive Protein Total Protein 4.4 L Albumin 2.3 L 01/17/18 01/17/18 01/17/18 16:54 16:54 17:11 WBC RBC Hgb Hct MCH Plt Count Seg Neuts % (Manual) Lymphocytes % (Manual) Monocytes % (Manual) Nucleated RBC % Seg Neutrophils # Man Lymphocytes # (Manual) Monocytes # (Manual) PT INR POC ABG pH POC ABG pCO2 POC ABG pO2 VBG pH 7.273 L Sodium Potassium Chloride Carbon Dioxide BUN Creatinine Glucose POC Glucose Hemoglobin A1c Lactic Acid 4.70 H* 4.30 H* Calcium Total Bilirubin AST ALT Alkaline Phosphatase C-Reactive Protein Total Protein Albumin 01/17/18 01/17/18 01/17/18 18:02 18:15 19:21 WBC RBC Hgb Hct MCH Plt Count Seg Neuts % (Manual) Lymphocytes % (Manual) Monocytes % (Manual) Nucleated RBC % Seg Neutrophils # Man Lymphocytes # (Manual) Monocytes # (Manual) PT INR POC ABG pH 7.177 L POC ABG pCO2 POC ABG pO2 VBG pH Sodium Potassium Chloride Carbon Dioxide BUN Creatinine Glucose POC Glucose < 40 L Hemoglobin A1c Lactic Acid 3.00 H* Calcium Total Bilirubin AST ALT Alkaline Phosphatase C-Reactive Protein Total Protein Albumin 01/17/18 01/17/18 01/17/18 22:36 22:36 23:16 WBC RBC Hgb Hct MCH Plt Count Seg Neuts % (Manual) Lymphocytes % (Manual) Monocytes % (Manual) Nucleated RBC % Seg Neutrophils # Man Lymphocytes # (Manual) Monocytes # (Manual) PT INR POC ABG pH 7.112 L POC ABG pCO2 50.1 H POC ABG pO2 50 L VBG pH Sodium Potassium Chloride Carbon Dioxide BUN Creatinine Glucose POC Glucose Hemoglobin A1c 9.0 H Lactic Acid 5.50 H* Calcium Total Bilirubin AST ALT Alkaline Phosphatase C-Reactive Protein Total Protein Albumin 01/18/18 01/18/18 01/18/18 01:26 03:21 03:21 WBC RBC Hgb Hct MCH Plt Count Seg Neuts % (Manual) 27.0 L Lymphocytes % (Manual) 3.0 L Monocytes % (Manual) 14.0 H Nucleated RBC % Seg Neutrophils # Man Lymphocytes # (Manual) 0.3 L Monocytes # (Manual) 1.4 H PT INR POC ABG pH POC ABG pCO2 POC ABG pO2 VBG pH Sodium Potassium Chloride Carbon Dioxide BUN Creatinine Glucose POC Glucose 107 H Hemoglobin A1c Lactic Acid 8.00 H* Calcium Total Bilirubin AST ALT Alkaline Phosphatase C-Reactive Protein Total Protein Albumin 01/18/18 01/18/18 01/18/18 03:21 04:40 05:07 WBC RBC Hgb Hct MCH Plt Count Seg Neuts % (Manual) Lymphocytes % (Manual) Monocytes % (Manual) Nucleated RBC % Seg Neutrophils # Man Lymphocytes # (Manual) Monocytes # (Manual) PT INR POC ABG pH 7.093 L POC ABG pCO2 31.5 L POC ABG pO2 77 L VBG pH Sodium Potassium Chloride 96.9 L Carbon Dioxide 14 L BUN 47 H Creatinine 3.4 H Glucose POC Glucose Hemoglobin A1c Lactic Acid 11.10 H* Calcium 6.4 L Total Bilirubin AST 47 H ALT Alkaline Phosphatase C-Reactive Protein Total Protein 4.3 L Albumin 2.4 L 01/18/18 01/18/18 01/18/18 06:29 07:06 11:44 WBC RBC Hgb Hct MCH Plt Count Seg Neuts % (Manual) Lymphocytes % (Manual) Monocytes % (Manual) Nucleated RBC % Seg Neutrophils # Man Lymphocytes # (Manual) Monocytes # (Manual) PT INR POC ABG pH POC ABG pCO2 POC ABG pO2 VBG pH Sodium Potassium Chloride Carbon Dioxide BUN Creatinine Glucose POC Glucose 47 L 149 H < 40 L Hemoglobin A1c Lactic Acid Calcium Total Bilirubin AST ALT Alkaline Phosphatase C-Reactive Protein Total Protein Albumin 01/18/18 01/18/18 01/18/18 11:46 14:15 18:01 WBC RBC Hgb Hct MCH Plt Count Seg Neuts % (Manual) Lymphocytes % (Manual) Monocytes % (Manual) Nucleated RBC % Seg Neutrophils # Man Lymphocytes # (Manual) Monocytes # (Manual) PT INR POC ABG pH POC ABG pCO2 POC ABG pO2 VBG pH Sodium Potassium Chloride Carbon Dioxide BUN Creatinine Glucose POC Glucose 116 H < 40 L Hemoglobin A1c Lactic Acid 10.00 H* Calcium Total Bilirubin AST ALT Alkaline Phosphatase C-Reactive Protein Total Protein Albumin 01/18/18 01/18/18 01/18/18 18:02 23:25 23:27 WBC RBC Hgb Hct MCH Plt Count Seg Neuts % (Manual) Lymphocytes % (Manual) Monocytes % (Manual) Nucleated RBC % Seg Neutrophils # Man Lymphocytes # (Manual) Monocytes # (Manual) PT INR POC ABG pH POC ABG pCO2 POC ABG pO2 VBG pH Sodium Potassium Chloride Carbon Dioxide BUN Creatinine Glucose POC Glucose 136 H < 40 L < 40 L Hemoglobin A1c Lactic Acid Calcium Total Bilirubin AST ALT Alkaline Phosphatase C-Reactive Protein Total Protein Albumin 01/19/18 01/19/18 01/19/18 04:02 06:50 06:50 WBC 18.5 H RBC Hgb Hct MCH Plt Count 136 L Seg Neuts % (Manual) 86.0 H Lymphocytes % (Manual) 4.0 L Monocytes % (Manual) Nucleated RBC % Seg Neutrophils # Man 15.9 H Lymphocytes # (Manual) 0.7 L Monocytes # (Manual) 1.1 H PT 21.3 H INR 1.73 H POC ABG pH POC ABG pCO2 28.3 L POC ABG pO2 57 L VBG pH Sodium Potassium Chloride Carbon Dioxide BUN Creatinine Glucose POC Glucose Hemoglobin A1c Lactic Acid Calcium Total Bilirubin AST ALT Alkaline Phosphatase C-Reactive Protein Total Protein Albumin 01/19/18 01/19/18 01/19/18 06:50 08:45 11:17 WBC RBC Hgb Hct MCH Plt Count Seg Neuts % (Manual) Lymphocytes % (Manual) Monocytes % (Manual) Nucleated RBC % Seg Neutrophils # Man Lymphocytes # (Manual) Monocytes # (Manual) PT INR POC ABG pH POC ABG pCO2 POC ABG pO2 VBG pH Sodium 135 L Potassium Chloride 92.8 L Carbon Dioxide 19 L BUN 31 H Creatinine 2.6 H Glucose POC Glucose 110 H Hemoglobin A1c Lactic Acid 7.90 H* Calcium 7.1 L Total Bilirubin 1.60 H AST 2526 H ALT 1187 H Alkaline Phosphatase 133 H C-Reactive Protein Total Protein 4.8 L Albumin 2.0 L 01/19/18 01/19/18 01/19/18 11:31 22:12 23:34 WBC RBC Hgb Hct MCH Plt Count Seg Neuts % (Manual) Lymphocytes % (Manual) Monocytes % (Manual) Nucleated RBC % Seg Neutrophils # Man Lymphocytes # (Manual) Monocytes # (Manual) PT INR POC ABG pH POC ABG pCO2 31.6 L POC ABG pO2 59 L VBG pH Sodium Potassium Chloride Carbon Dioxide BUN Creatinine Glucose POC Glucose 131 H 53 L Hemoglobin A1c Lactic Acid Calcium Total Bilirubin AST ALT Alkaline Phosphatase C-Reactive Protein Total Protein Albumin 01/20/18 01/20/18 01/20/18 05:18 05:18 05:19 WBC 19.7 H RBC Hgb Hct MCH 27 L Plt Count 84 L Seg Neuts % (Manual) 84.0 H Lymphocytes % (Manual) 2.0 L Monocytes % (Manual) 8.0 H Nucleated RBC % Seg Neutrophils # Man 16.5 H Lymphocytes # (Manual) 0.4 L Monocytes # (Manual) 1.6 H PT INR POC ABG pH POC ABG pCO2 POC ABG pO2 VBG pH Sodium 136 L Potassium Chloride 96.9 L Carbon Dioxide 17 L BUN 65 H Creatinine 4.1 H D Glucose 104 H POC Glucose 125 H Hemoglobin A1c Lactic Acid Calcium 7.1 L Total Bilirubin 1.60 H AST 1702 H ALT 1141 H Alkaline Phosphatase 172 H C-Reactive Protein Total Protein 5.0 L Albumin 1.7 L 01/20/18 01/20/18 01/20/18 07:00 11:48 13:54 WBC RBC Hgb Hct MCH Plt Count Seg Neuts % (Manual) Lymphocytes % (Manual) Monocytes % (Manual) Nucleated RBC % Seg Neutrophils # Man Lymphocytes # (Manual) Monocytes # (Manual) PT 17.5 H INR 1.35 H POC ABG pH POC ABG pCO2 POC ABG pO2 VBG pH Sodium Potassium Chloride Carbon Dioxide BUN Creatinine Glucose POC Glucose 109 H Hemoglobin A1c Lactic Acid Calcium Total Bilirubin AST ALT Alkaline Phosphatase C-Reactive Protein 37.50 H Total Protein Albumin 01/20/18 01/20/18 01/20/18 17:28 17:51 20:50 WBC RBC Hgb Hct MCH Plt Count Seg Neuts % (Manual) Lymphocytes % (Manual) Monocytes % (Manual) Nucleated RBC % Seg Neutrophils # Man Lymphocytes # (Manual) Monocytes # (Manual) PT INR POC ABG pH POC ABG pCO2 POC ABG pO2 VBG pH Sodium Potassium Chloride Carbon Dioxide BUN Creatinine Glucose POC Glucose 140 H Hemoglobin A1c Lactic Acid 2.70 H* 2.30 H* Calcium Total Bilirubin AST ALT Alkaline Phosphatase C-Reactive Protein Total Protein Albumin 01/20/18 01/20/18 01/21/18 23:55 Unknown 00:12 WBC RBC Hgb Hct MCH Plt Count Seg Neuts % (Manual) Lymphocytes % (Manual) Monocytes % (Manual) Nucleated RBC % Seg Neutrophils # Man Lymphocytes # (Manual) Monocytes # (Manual) PT INR POC ABG pH POC ABG pCO2 POC ABG pO2 VBG pH Sodium Potassium Chloride Carbon Dioxide BUN Creatinine Glucose POC Glucose 149 H 134 H Hemoglobin A1c Lactic Acid 2.50 H* Calcium Total Bilirubin AST ALT Alkaline Phosphatase C-Reactive Protein Total Protein Albumin 01/21/18 01/21/18 01/21/18 04:27 05:00 05:00 WBC 21.7 H RBC Hgb Hct MCH 27 L Plt Count 67 L Seg Neuts % (Manual) 71.0 H Lymphocytes % (Manual) 9.0 L Monocytes % (Manual) Nucleated RBC % 4.0 H Seg Neutrophils # Man 15.4 H Lymphocytes # (Manual) Monocytes # (Manual) PT INR POC ABG pH POC ABG pCO2 33.8 L POC ABG pO2 72 L VBG pH Sodium Potassium Chloride Carbon Dioxide 21 L BUN 71 H Creatinine 4.1 H Glucose 149 H POC Glucose Hemoglobin A1c Lactic Acid Calcium 7.5 L Total Bilirubin AST 494 H ALT 780 H Alkaline Phosphatase 151 H C-Reactive Protein Total Protein 4.9 L Albumin 1.9 L 01/21/18 01/21/18 01/21/18 05:00 05:18 12:20 WBC RBC Hgb Hct MCH Plt Count Seg Neuts % (Manual) Lymphocytes % (Manual) Monocytes % (Manual) Nucleated RBC % Seg Neutrophils # Man Lymphocytes # (Manual) Monocytes # (Manual) PT INR POC ABG pH POC ABG pCO2 POC ABG pO2 VBG pH Sodium Potassium Chloride Carbon Dioxide BUN Creatinine Glucose POC Glucose 132 H 158 H Hemoglobin A1c Lactic Acid 2.10 H* Calcium Total Bilirubin AST ALT Alkaline Phosphatase C-Reactive Protein Total Protein Albumin 01/21/18 01/21/18 01/22/18 18:07 23:40 03:48 WBC RBC Hgb Hct MCH Plt Count Seg Neuts % (Manual) Lymphocytes % (Manual) Monocytes % (Manual) Nucleated RBC % Seg Neutrophils # Man Lymphocytes # (Manual) Monocytes # (Manual) PT INR POC ABG pH POC ABG pCO2 POC ABG pO2 65 L VBG pH Sodium Potassium Chloride Carbon Dioxide BUN Creatinine Glucose POC Glucose 143 H 136 H Hemoglobin A1c Lactic Acid Calcium Total Bilirubin AST ALT Alkaline Phosphatase C-Reactive Protein Total Protein Albumin 01/22/18 01/22/18 01/22/18 04:10 04:10 05:56 WBC 24.9 H RBC Hgb Hct MCH 27 L Plt Count 80 L Seg Neuts % (Manual) Lymphocytes % (Manual) Monocytes % (Manual) Nucleated RBC % Seg Neutrophils # Man Lymphocytes # (Manual) Monocytes # (Manual) PT INR POC ABG pH POC ABG pCO2 POC ABG pO2 VBG pH Sodium Potassium Chloride 97.7 L Carbon Dioxide BUN 72 H Creatinine 3.6 H Glucose 145 H POC Glucose 139 H Hemoglobin A1c Lactic Acid Calcium 7.3 L Total Bilirubin AST 146 H ALT 547 H Alkaline Phosphatase C-Reactive Protein Total Protein 5.2 L Albumin 2.3 L 01/22/18 01/22/18 01/23/18 11:30 17:41 00:00 WBC RBC Hgb Hct MCH Plt Count Seg Neuts % (Manual) Lymphocytes % (Manual) Monocytes % (Manual) Nucleated RBC % Seg Neutrophils # Man Lymphocytes # (Manual) Monocytes # (Manual) PT INR POC ABG pH POC ABG pCO2 POC ABG pO2 VBG pH Sodium Potassium Chloride Carbon Dioxide BUN Creatinine Glucose POC Glucose 156 H 185 H 150 H Hemoglobin A1c Lactic Acid Calcium Total Bilirubin AST ALT Alkaline Phosphatase C-Reactive Protein Total Protein Albumin 01/23/18 01/23/18 01/23/18 04:39 05:24 11:38 WBC RBC Hgb Hct MCH Plt Count Seg Neuts % (Manual) Lymphocytes % (Manual) Monocytes % (Manual) Nucleated RBC % Seg Neutrophils # Man Lymphocytes # (Manual) Monocytes # (Manual) PT INR POC ABG pH POC ABG pCO2 31.9 L POC ABG pO2 62 L VBG pH Sodium Potassium Chloride Carbon Dioxide BUN Creatinine Glucose POC Glucose 215 H 182 H Hemoglobin A1c Lactic Acid Calcium Total Bilirubin AST ALT Alkaline Phosphatase C-Reactive Protein Total Protein Albumin 01/23/18 01/23/18 01/24/18 14:20 17:26 00:10 WBC RBC Hgb Hct MCH Plt Count Seg Neuts % (Manual) Lymphocytes % (Manual) Monocytes % (Manual) Nucleated RBC % Seg Neutrophils # Man Lymphocytes # (Manual) Monocytes # (Manual) PT INR POC ABG pH POC ABG pCO2 31.4 L POC ABG pO2 55 L VBG pH Sodium Potassium Chloride Carbon Dioxide BUN Creatinine Glucose POC Glucose 252 H 225 H Hemoglobin A1c Lactic Acid Calcium Total Bilirubin AST ALT Alkaline Phosphatase C-Reactive Protein Total Protein Albumin 01/24/18 01/24/18 01/24/18 03:40 03:40 06:06 WBC 34.5 H RBC Hgb Hct MCH 27 L Plt Count 130 L Seg Neuts % (Manual) Lymphocytes % (Manual) Monocytes % (Manual) Nucleated RBC % Seg Neutrophils # Man Lymphocytes # (Manual) Monocytes # (Manual) PT INR POC ABG pH POC ABG pCO2 POC ABG pO2 VBG pH Sodium Potassium 5.7 H D Chloride 95.6 L Carbon Dioxide 20 L BUN 96 H Creatinine 4.2 H Glucose 166 H POC Glucose 162 H Hemoglobin A1c Lactic Acid Calcium 7.3 L Total Bilirubin AST 52 H ALT 235 H Alkaline Phosphatase C-Reactive Protein Total Protein 5.1 L Albumin 2.5 L 01/24/18 01/24/18 01/24/18 11:36 15:08 17:32 WBC RBC Hgb Hct MCH Plt Count Seg Neuts % (Manual) Lymphocytes % (Manual) Monocytes % (Manual) Nucleated RBC % Seg Neutrophils # Man Lymphocytes # (Manual) Monocytes # (Manual) PT INR POC ABG pH POC ABG pCO2 POC ABG pO2 VBG pH Sodium Potassium Chloride Carbon Dioxide BUN Creatinine Glucose POC Glucose 160 H 160 H Hemoglobin A1c Lactic Acid Calcium Total Bilirubin AST ALT Alkaline Phosphatase C-Reactive Protein 3.30 H Total Protein Albumin 01/25/18 01/25/18 01/25/18 00:04 04:34 05:25 WBC RBC Hgb Hct MCH Plt Count Seg Neuts % (Manual) Lymphocytes % (Manual) Monocytes % (Manual) Nucleated RBC % Seg Neutrophils # Man Lymphocytes # (Manual) Monocytes # (Manual) PT INR POC ABG pH 7.342 L POC ABG pCO2 48.7 H POC ABG pO2 VBG pH Sodium Potassium Chloride Carbon Dioxide BUN Creatinine Glucose POC Glucose 169 H 133 H Hemoglobin A1c Lactic Acid Calcium Total Bilirubin AST ALT Alkaline Phosphatase C-Reactive Protein Total Protein Albumin 01/25/18 01/25/18 01/25/18 11:46 17:42 23:50 WBC RBC Hgb Hct MCH Plt Count Seg Neuts % (Manual) Lymphocytes % (Manual) Monocytes % (Manual) Nucleated RBC % Seg Neutrophils # Man Lymphocytes # (Manual) Monocytes # (Manual) PT INR POC ABG pH POC ABG pCO2 POC ABG pO2 VBG pH Sodium Potassium Chloride Carbon Dioxide BUN Creatinine Glucose POC Glucose 121 H 150 H 149 H Hemoglobin A1c Lactic Acid Calcium Total Bilirubin AST ALT Alkaline Phosphatase C-Reactive Protein Total Protein Albumin 01/26/18 01/26/18 01/26/18 04:13 05:25 06:20 WBC 21.0 H RBC Hgb Hct MCH Plt Count Seg Neuts % (Manual) 95.0 H Lymphocytes % (Manual) 1.0 L Monocytes % (Manual) Nucleated RBC % Seg Neutrophils # Man 20.0 H Lymphocytes # (Manual) 0.2 L Monocytes # (Manual) PT INR POC ABG pH POC ABG pCO2 POC ABG pO2 70 L VBG pH Sodium Potassium Chloride Carbon Dioxide BUN Creatinine Glucose POC Glucose 107 H Hemoglobin A1c Lactic Acid Calcium Total Bilirubin AST ALT Alkaline Phosphatase C-Reactive Protein Total Protein Albumin 01/26/18 01/26/18 01/26/18 06:20 12:19 18:09 WBC RBC Hgb Hct MCH Plt Count Seg Neuts % (Manual) Lymphocytes % (Manual) Monocytes % (Manual) Nucleated RBC % Seg Neutrophils # Man Lymphocytes # (Manual) Monocytes # (Manual) PT INR POC ABG pH POC ABG pCO2 POC ABG pO2 VBG pH Sodium Potassium 5.9 H Chloride 95.7 L Carbon Dioxide BUN 102 H Creatinine 4.6 H Glucose POC Glucose 151 H 110 H Hemoglobin A1c Lactic Acid Calcium 6.6 L Total Bilirubin AST ALT Alkaline Phosphatase C-Reactive Protein Total Protein Albumin 01/27/18 01/27/18 01/27/18 00:17 05:20 05:20 WBC 23.3 H RBC Hgb Hct MCH 27 L Plt Count Seg Neuts % (Manual) 97.0 H Lymphocytes % (Manual) 0 L Monocytes % (Manual) Nucleated RBC % Seg Neutrophils # Man 22.6 H Lymphocytes # (Manual) 0.0 L Monocytes # (Manual) PT INR POC ABG pH POC ABG pCO2 POC ABG pO2 VBG pH Sodium Potassium 5.7 H Chloride 93.9 L Carbon Dioxide 21 L BUN 121 H Creatinine 5.2 H Glucose 131 H POC Glucose 159 H Hemoglobin A1c Lactic Acid Calcium 6.1 L Total Bilirubin AST ALT Alkaline Phosphatase C-Reactive Protein Total Protein Albumin 01/27/18 01/27/18 01/27/18 05:43 12:16 17:32 WBC RBC Hgb Hct MCH Plt Count Seg Neuts % (Manual) Lymphocytes % (Manual) Monocytes % (Manual) Nucleated RBC % Seg Neutrophils # Man Lymphocytes # (Manual) Monocytes # (Manual) PT INR POC ABG pH POC ABG pCO2 POC ABG pO2 VBG pH Sodium Potassium Chloride Carbon Dioxide BUN Creatinine Glucose POC Glucose 121 H 161 H 146 H Hemoglobin A1c Lactic Acid Calcium Total Bilirubin AST ALT Alkaline Phosphatase C-Reactive Protein Total Protein Albumin 01/28/18 01/28/18 01/28/18 00:05 04:24 05:43 WBC RBC Hgb Hct MCH Plt Count Seg Neuts % (Manual) Lymphocytes % (Manual) Monocytes % (Manual) Nucleated RBC % Seg Neutrophils # Man Lymphocytes # (Manual) Monocytes # (Manual) PT INR POC ABG pH POC ABG pCO2 POC ABG pO2 77 L VBG pH Sodium Potassium Chloride Carbon Dioxide BUN Creatinine Glucose POC Glucose 128 H 137 H Hemoglobin A1c Lactic Acid Calcium Total Bilirubin AST ALT Alkaline Phosphatase C-Reactive Protein Total Protein Albumin 01/28/18 01/28/18 01/28/18 06:30 06:30 11:30 WBC 24.8 H RBC Hgb Hct MCH Plt Count Seg Neuts % (Manual) 91.0 H Lymphocytes % (Manual) 4.0 L Monocytes % (Manual) Nucleated RBC % Seg Neutrophils # Man 22.6 H Lymphocytes # (Manual) 1.0 L Monocytes # (Manual) 1.0 H PT INR POC ABG pH POC ABG pCO2 POC ABG pO2 VBG pH Sodium Potassium Chloride 95.2 L Carbon Dioxide BUN 70 H Creatinine 3.7 H Glucose 135 H POC Glucose 183 H Hemoglobin A1c Lactic Acid Calcium 6.4 L Total Bilirubin AST ALT Alkaline Phosphatase C-Reactive Protein Total Protein Albumin 01/28/18 01/29/18 01/29/18 18:08 00:00 05:50 WBC RBC Hgb Hct MCH Plt Count Seg Neuts % (Manual) Lymphocytes % (Manual) Monocytes % (Manual) Nucleated RBC % Seg Neutrophils # Man Lymphocytes # (Manual) Monocytes # (Manual) PT INR POC ABG pH POC ABG pCO2 POC ABG pO2 VBG pH Sodium Potassium Chloride Carbon Dioxide BUN Creatinine Glucose POC Glucose 129 H 111 H 120 H Hemoglobin A1c Lactic Acid Calcium Total Bilirubin AST ALT Alkaline Phosphatase C-Reactive Protein Total Protein Albumin 01/29/18 01/29/18 01/29/18 06:00 06:00 12:29 WBC 15.8 H RBC 3.37 L Hgb 9.1 L Hct 28.6 L MCH 27 L Plt Count Seg Neuts % (Manual) 87.0 H Lymphocytes % (Manual) 7.0 L Monocytes % (Manual) Nucleated RBC % Seg Neutrophils # Man 13.7 H Lymphocytes # (Manual) 1.1 L Monocytes # (Manual) PT INR POC ABG pH POC ABG pCO2 POC ABG pO2 VBG pH Sodium 136 L Potassium Chloride 95.4 L Carbon Dioxide BUN 94 H Creatinine 4.2 H Glucose 120 H POC Glucose 134 H Hemoglobin A1c Lactic Acid Calcium 6.5 L Total Bilirubin AST ALT Alkaline Phosphatase C-Reactive Protein Total Protein 4.5 L Albumin 2.0 L 01/29/18 01/30/18 01/30/18 18:32 00:12 04:47 WBC RBC Hgb Hct MCH Plt Count Seg Neuts % (Manual) Lymphocytes % (Manual) Monocytes % (Manual) Nucleated RBC % Seg Neutrophils # Man Lymphocytes # (Manual) Monocytes # (Manual) PT INR POC ABG pH 7.456 H POC ABG pCO2 POC ABG pO2 VBG pH Sodium Potassium Chloride Carbon Dioxide BUN Creatinine Glucose POC Glucose 158 H 155 H Hemoglobin A1c Lactic Acid Calcium Total Bilirubin AST ALT Alkaline Phosphatase C-Reactive Protein Total Protein Albumin 01/30/18 01/30/18 Unknown Unknown WBC 12.8 H RBC 3.09 L Hgb 8.4 L Hct 26.2 L MCH 27 L Plt Count Seg Neuts % (Manual) Lymphocytes % (Manual) Monocytes % (Manual) Nucleated RBC % Seg Neutrophils # Man Lymphocytes # (Manual) Monocytes # (Manual) PT INR POC ABG pH POC ABG pCO2 POC ABG pO2 VBG pH Sodium Potassium Chloride Carbon Dioxide BUN 52 H Creatinine 2.9 H Glucose 105 H POC Glucose Hemoglobin A1c Lactic Acid Calcium 6.7 L Total Bilirubin AST ALT Alkaline Phosphatase C-Reactive Protein Total Protein Albumin Allied health notes reviewed: nursing
[2018-01-30 10:50] LABS: Band Neutrophils # (Manual) 0.3 K/mm3; Basophils % (Manual) 0 % (0.0-1.8); Eosinophils % (Manual) 0 % (0.0-4.3); Total Cells Counted 100
[2018-01-30 10:51] LABS: Hypochromasia 1+; Platelet Estimate Consistent w Auto; Stomatocytes Few
--- NOTE | 2018-01-30 13:18 | Progress Note ---
Assessment and Plan Impression: * Acute kidney injury secondary to ATN - on hemodialysis * Acute respiratory failure * Spontaneous left pneumothorax s/p chest tube insertion * Sepsis * Pleural effusion * Cardiomyopathy * Anemia * Polysubstance abuse * Type II DM * Ischemic, necrotic digits of hands/feet Plan: * HD q MWF and prn; UF as tolerated * Currently dialyzing via femoral vas cath; needs IJ access * Will plan to remove femoral vas cath after HD tomorrow w/ IJ access next week - will discuss w/ vascular * Monitor for renal recovery * Consultants' recommendations noted * Abx per ID * Strict i/os * Avoid nephrotoxins * Daily lytes Subjective Date of service: 01/30/18 Principal diagnosis: Acute hypoxic respiratory failure, severe sepsis with shock , encephalopathy Interval history: Received 500ml bolus overnight due to hypotension; remains off pressors. Intubated - TV 450, Rage 14, FiO2 30 and PEEP 5. Objective - Vital Signs Vital signs: Vital Signs - 12hr 01/30/18 01/30/18 01/30/18 01:30 01:45 02:00 Temperature Pulse Rate 85 87 85 Pulse Rate [ Anterior Bilateral Throughout] Pulse Rate [ From Monitor] Respiratory 15 18 19 Rate Respiratory Rate [Anterior Bilateral Throughout] Blood Pressure 92/53 93/50 76/43 O2 Sat by Pulse 98 99 97 Oximetry 01/30/18 01/30/18 01/30/18 02:15 02:30 02:45 Temperature Pulse Rate 77 73 78 Pulse Rate [ Anterior Bilateral Throughout] Pulse Rate [ From Monitor] Respiratory 17 19 19 Rate Respiratory Rate [Anterior Bilateral Throughout] Blood Pressure 84/42 85/44 81/42 O2 Sat by Pulse 98 99 99 Oximetry 01/30/18 01/30/18 01/30/18 03:00 03:15 03:30 Temperature Pulse Rate 81 77 83 Pulse Rate [ Anterior Bilateral Throughout] Pulse Rate [ From Monitor] Respiratory 15 14 15 Rate Respiratory Rate [Anterior Bilateral Throughout] Blood Pressure 96/52 101/55 105/53 O2 Sat by Pulse 100 100 99 Oximetry 01/30/18 01/30/18 01/30/18 03:45 04:00 04:15 Temperature 98.9 F Pulse Rate 83 85 79 Pulse Rate [ Anterior Bilateral Throughout] Pulse Rate [ From Monitor] Respiratory 19 14 20 Rate Respiratory Rate [Anterior Bilateral Throughout] Blood Pressure 84/42 116/58 99/53 O2 Sat by Pulse 98 97 96 Oximetry 01/30/18 01/30/18 01/30/18 04:30 04:45 04:47 Temperature Pulse Rate 77 79 79 Pulse Rate [ Anterior Bilateral Throughout] Pulse Rate [ From Monitor] Respiratory 18 16 Rate Respiratory Rate [Anterior Bilateral Throughout] Blood Pressure 93/47 95/51 95/51 O2 Sat by Pulse 97 94 94 Oximetry 01/30/18 01/30/18 01/30/18 05:00 05:15 05:30 Temperature Pulse Rate 74 79 87 Pulse Rate [ Anterior Bilateral Throughout] Pulse Rate [ From Monitor] Respiratory 17 17 21 Rate Respiratory Rate [Anterior Bilateral Throughout] Blood Pressure 94/44 96/50 111/53 O2 Sat by Pulse 97 95 98 Oximetry 01/30/18 01/30/18 01/30/18 05:45 06:00 06:15 Temperature Pulse Rate 81 77 78 Pulse Rate [ Anterior Bilateral Throughout] Pulse Rate [ From Monitor] Respiratory 19 18 Rate Respiratory Rate [Anterior Bilateral Throughout] Blood Pressure 110/56 111/51 105/58 O2 Sat by Pulse 94 91 90 Oximetry 01/30/18 01/30/18 01/30/18 06:30 06:45 07:00 Temperature Pulse Rate 79 74 90 Pulse Rate [ Anterior Bilateral Throughout] Pulse Rate [ From Monitor] Respiratory 17 18 15 Rate Respiratory Rate [Anterior Bilateral Throughout] Blood Pressure 102/52 111/50 117/56 O2 Sat by Pulse 90 97 98 Oximetry 01/30/18 01/30/18 01/30/18 07:15 07:30 07:45 Temperature Pulse Rate 81 99 H 77 Pulse Rate [ Anterior Bilateral Throughout] Pulse Rate [ From Monitor] Respiratory 25 H 14 22 Rate Respiratory Rate [Anterior Bilateral Throughout] Blood Pressure 119/51 115/70 99/53 O2 Sat by Pulse 93 99 99 Oximetry 01/30/18 01/30/18 01/30/18 08:00 08:15 08:30 Temperature 98.2 F Pulse Rate 75 72 71 Pulse Rate [ Anterior Bilateral Throughout] Pulse Rate [ 83 From Monitor] Respiratory 22 19 17 Rate Respiratory Rate [Anterior Bilateral Throughout] Blood Pressure 110/49 109/58 114/58 O2 Sat by Pulse 93 100 100 Oximetry 01/30/18 01/30/18 01/30/18 08:45 09:00 09:15 Temperature Pulse Rate 69 76 76 Pulse Rate [ Anterior Bilateral Throughout] Pulse Rate [ From Monitor] Respiratory 18 22 19 Rate Respiratory Rate [Anterior Bilateral Throughout] Blood Pressure 111/59 111/57 109/57 O2 Sat by Pulse 100 100 100 Oximetry 01/30/18 01/30/18 01/30/18 09:20 09:21 09:28 Temperature Pulse Rate 80 74 Pulse Rate [ 74 Anterior Bilateral Throughout] Pulse Rate [ From Monitor] Respiratory Rate Respiratory 14 Rate [Anterior Bilateral Throughout] Blood Pressure 109/57 109/57 O2 Sat by Pulse 100 98 Oximetry 01/30/18 01/30/18 01/30/18 09:30 09:31 09:45 Temperature Pulse Rate 70 75 Pulse Rate [ 74 Anterior Bilateral Throughout] Pulse Rate [ From Monitor] Respiratory 18 19 Rate Respiratory 17 Rate [Anterior Bilateral Throughout] Blood Pressure 128/63 122/63 O2 Sat by Pulse 100 99 Oximetry 01/30/18 01/30/18 01/30/18 10:00 10:05 10:15 Temperature Pulse Rate 74 68 Pulse Rate [ Anterior Bilateral Throughout] Pulse Rate [ From Monitor] Respiratory 18 20 20 Rate Respiratory Rate [Anterior Bilateral Throughout] Blood Pressure 134/66 128/67 O2 Sat by Pulse 100 100 Oximetry 01/30/18 01/30/18 01/30/18 10:30 10:45 11:00 Temperature Pulse Rate 65 77 69 Pulse Rate [ Anterior Bilateral Throughout] Pulse Rate [ From Monitor] Respiratory 8 L 18 16 Rate Respiratory Rate [Anterior Bilateral Throughout] Blood Pressure 120/63 128/75 128/75 O2 Sat by Pulse 100 100 100 Oximetry 01/30/18 01/30/18 01/30/18 11:15 11:30 11:45 Temperature Pulse Rate 67 69 72 Pulse Rate [ Anterior Bilateral Throughout] Pulse Rate [ From Monitor] Respiratory 16 14 16 Rate Respiratory Rate [Anterior Bilateral Throughout] Blood Pressure 111/58 119/65 107/57 O2 Sat by Pulse 100 100 99 Oximetry 01/30/18 01/30/18 01/30/18 12:00 12:44 12:52 Temperature 98.9 F 98.9 F Pulse Rate 67 73 Pulse Rate [ Anterior Bilateral Throughout] Pulse Rate [ 66 From Monitor] Respiratory 16 Rate Respiratory Rate [Anterior Bilateral Throughout] Blood Pressure 111/61 98/51 O2 Sat by Pulse 99 100 Oximetry - General Appearance General appearance: intubated, other (opens eyes to verbal stimuli) EENT: ATNC Respiratory: Present: Other (coarse breath sounds) Cardiology: regular, S1S2 Gastrointestinal: normal, no tenderness, no distended Integumentary: other (necrotic, ischemic digits of hands and feet) Musculoskeletal: other (trace edema) Psychiatric: cooperative - Lab 01/30/18 Unknown 01/30/18 Unknown Most recent lab results Calcium 6.7 mg/dL (8.4-10.2) L 01/30/18 Unknown Magnesium 1.80 mg/dL (1.7-2.3) 01/29/18 06:00
[2018-01-30] MEDS: HEPARIN SUB-Q SCH ×2 (14:05→21:02)
[2018-01-31] MEDS: HumaLOG SUB-Q SCH ×4 (01:10→23:37)
[2018-01-31] MEDS: DUONEB *Not for PRN Use IH SCH ×4 (01:18→19:49)
[2018-01-31] MEDS: DILAUDID IV PRN ×5 (03:12→21:53)
[2018-01-31] MEDS: SODIUM CHLORIDE FLUSH SYRINGE 10 ML IV SCH ×3 (03:14→21:53)
[2018-01-31] MEDS: HEPARIN SUB-Q SCH ×3 (05:04→21:54)
[2018-01-31 05:20] LABS: Basophils % (Auto) 0.3 % (0.0-1.8); Eosinophils % (Auto) 0.3 % (0.0-4.3); Hemoglobin 9.8 gm/dl (10.1-14.3); Lymphocytes # (Auto) 0.5 K/mm3 (1.2-5.4); Lymphocytes % (Auto) 3.6 % (13.4-35.0); Mean Corpuscular HGB Conc 33 % (30-34); Mean Corpuscular Hemoglobin 28 pg (28-32); Mean Corpuscular Volume 85 fl (79-97); Monocytes # (Auto) 1.2 K/mm3 (0.0-0.8); Monocytes % (Auto) 8.7 % (0.0-7.3); Platelet Count 321 K/mm3 (140-440); Red Blood Count 3.53 M/mm3 (3.65-5.03); Red Cell Distribution Width 15.4 % (13.2-15.2)
[2018-01-31 05:26] LABS: Calcium 7.1 mg/dL (8.4-10.2)
--- NOTE | 2018-01-31 09:31 | Progress Note ---
Assessment and Plan Assessment: 1) Severe sepsis with septic shock and MODS: shock resolved, fever resolved and leukocytosis better 34-->23-->24-->15K. Etiology most likely unclear. DDx: pneumonia ? pelvic collections? large left sided pneumothorax -blood cx negative -legs US neg for DVT -CRP=37 -HIV neg -ALISA neg 2) Acute respiratory failure - better s/p Chest tube due to large left sided pneumothorax on 01/28 3) Presumed pneumonia: -repeat CXR - decreased effusion -TA no growth -CT chest left minimal pleural effusion and infiltrate 4) JANESSA: on HD 5) Large left sided pneumothorax s/p CT on 01/28 6) DM-poorly controlled 7) Bilateral fingers ischemic changes: from pressors ? 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 flushing ? zosyn allergy 11) Acute encephalopathy 12) Pelvic collections x 3: ? etiology -CT showed non obstructed left kidney stones, large left pelvic cyst 8.8 x 5.7 cm, LLL atelectasis minimal pleural effusion 13) Penicillin allergy Plan: -monitor leukocytosis off antibiotics -chest tube monitoring -monitor leukocytosis -at some point needs vascualr eval about digits ischemia. I am signing off Thank you for your consultation, will follow up with you. . Michaela Parekh MD Infectious Diseases Specialist [facility] ([facility]) M [phone] O [phone] Subjective Date of service: 01/31/18 Principal diagnosis: Acute hypoxic respiratory failure, severe sepsis with shock , encephalopathy Interval history: Remains intubated fiO2 30%, p5, sedated, no fever, sedated however eyes opening Microbiology: Blood cultures: 01/17 neg 01/20 neg 01/24 neg Urine cultures: Respiratory cultures: TA 01/17 ngtd Current Antimicrobials: none Previous Antimicrobials: Zosyn 01/18 Vancomycin 01/18 levaquin 01/23 -01/28 flagyl 01/23 -01/28 Objective - Exam Narrative Exam: General appearance: sedated on the vent Eyes: anicteric sclerae, moist conjunctivae; no lid-lag; PERRLA HENT: Atraumatic; oropharynx clear +ETT +NGT Neck: Trachea midline; supple, no thyromegaly or lymphadenopathy Lungs: juan rhonchi, left sided chest tube CV: tachy Abdomen: Soft, non-tender; distended Extremities: No peripheral edema or extremity lymphadenopathy Skin: . +bilateral hands, multiple fingers and sole and toes necrotic changes. Multiple skin tears and ecchymoses Psych: sedated Neuro: sedated Lines: right fem vascath, right IJ TLC - Constitutional Vitals: Vital Signs Temp Pulse Resp BP Pulse Ox 97.9 F 87 16 119/68 98 01/31/18 03:16 01/31/18 09:15 01/31/18 09:15 01/31/18 09:15 01/31/18 09:15 Temperature -Last 24 Hours Temperature 97.9 F Temperature 97.5 F Temperature 98.5 F Temperature 98.5 F Temperature 98.5 F Temperature 97.7 F Temperature 98.9 F Temperature 98.9 F - Labs CBC & Chem 7: 01/31/18 04:50 01/31/18 04:50 Labs: Abnormal lab results 01/20/18 01/20/18 01/30/18 Range/Units Unknown Unknown 12:06 WBC (4.5-11.0) K/mm3 RBC (3.65-5.03) M/mm3 Hgb (10.1-14.3) gm/dl Hct (30.3-42.9) % RDW (13.2-15.2) % Lymph % (Auto) (13.4-35.0) % [place] % (Auto) (0.0-7.3) % Lymph # (1.2-5.4) K/mm3 [place] # (0.0-0.8) K/mm3 Seg Neutrophils % (40.0-70.0) % Seg Neuts % (Manual) (40.0-70.0) % Lymphocytes % (Manual) (13.4-35.0) % Seg Neutrophils # (1.8-7.7) K/mm3 Seg Neutrophils # Man (1.8-7.7) K/mm3 Lymphocytes # (Manual) (1.2-5.4) K/mm3 BUN (7-17) mg/dL Creatinine (0.7-1.2) mg/dL Glucose (65-100) mg/dL POC Glucose 117 H (70-105) Calcium (8.4-10.2) mg/dL Complement C3 47 L (83-193) mg/dL Complement C4 9 L (15-57) mg/dL 01/30/18 01/30/18 01/31/18 Range/Units 17:46 Unknown 00:04 WBC (4.5-11.0) K/mm3 RBC (3.65-5.03) M/mm3 Hgb (10.1-14.3) gm/dl Hct (30.3-42.9) % RDW (13.2-15.2) % Lymph % (Auto) (13.4-35.0) % [place] % (Auto) (0.0-7.3) % Lymph # (1.2-5.4) K/mm3 [place] # (0.0-0.8) K/mm3 Seg Neutrophils % (40.0-70.0) % Seg Neuts % (Manual) 95.0 H (40.0-70.0) % Lymphocytes % (Manual) 1.0 L (13.4-35.0) % Seg Neutrophils # (1.8-7.7) K/mm3 Seg Neutrophils # Man 12.2 H (1.8-7.7) K/mm3 Lymphocytes # (Manual) 0.1 L (1.2-5.4) K/mm3 BUN (7-17) mg/dL Creatinine (0.7-1.2) mg/dL Glucose (65-100) mg/dL POC Glucose 166 H 155 H (70-105) Calcium (8.4-10.2) mg/dL Complement C3 (83-193) mg/dL Complement C4 (15-57) mg/dL 01/31/18 01/31/18 Range/Units 04:50 04:50 WBC 13.6 H (4.5-11.0) K/mm3 RBC 3.53 L (3.65-5.03) M/mm3 Hgb 9.8 L (10.1-14.3) gm/dl Hct 30.0 L (30.3-42.9) % RDW 15.4 H (13.2-15.2) % Lymph % (Auto) 3.6 L (13.4-35.0) % [place] % (Auto) 8.7 H (0.0-7.3) % Lymph # 0.5 L (1.2-5.4) K/mm3 [place] # 1.2 H (0.0-0.8) K/mm3 Seg Neutrophils % 87.1 H (40.0-70.0) % Seg Neuts % (Manual) (40.0-70.0) % Lymphocytes % (Manual) (13.4-35.0) % Seg Neutrophils # 11.8 H (1.8-7.7) K/mm3 Seg Neutrophils # Man (1.8-7.7) K/mm3 Lymphocytes # (Manual) (1.2-5.4) K/mm3 BUN 70 H (7-17) mg/dL Creatinine 3.3 H (0.7-1.2) mg/dL Glucose 102 H (65-100) mg/dL POC Glucose (70-105) Calcium 7.1 L (8.4-10.2) mg/dL Complement C3 (83-193) mg/dL Complement C4 (15-57) mg/dL
[2018-01-31] MEDS ORDERED: DELTASONE PO SCH (10:00)
--- NOTE | 2018-01-31 10:36 | Progress Note ---
Assessment and Plan Impression: * Acute kidney injury secondary to ATN - on hemodialysis * Acute respiratory failure * Spontaneous left pneumothorax s/p chest tube insertion * Sepsis * Pleural effusion * Cardiomyopathy * Anemia * Polysubstance abuse * Type II DM * Ischemic, necrotic digits of hands/feet * Pelvic mass Plan: * HD q MWF and prn; UF as tolerated * Monitor for recovery - UOP seems to be improving * Currently dialyzing via femoral vas cath; needs IJ access if to remain on HD. Will plan to remove femoral vas cath after HD today * Discussed potential need for IJ vas cath placement next week w/ * Consultants' recommendations noted * Abx per ID * Strict i/os * Avoid nephrotoxins * Daily lytes Subjective Date of service: 01/31/18 Principal diagnosis: Acute hypoxic respiratory failure, severe sepsis with shock , encephalopathy Interval history: No acute events overnight. Remains off pressors. Objective - Vital Signs Vital signs: Vital Signs - 12hr 01/30/18 01/30/18 01/30/18 22:45 23:00 23:15 Temperature Pulse Rate 75 76 79 Pulse Rate [ Bilateral Throughout] Respiratory 15 8 L 14 Rate Respiratory Rate [Bilateral Throughout] Blood Pressure 104/54 110/59 110/64 O2 Sat by Pulse 99 99 99 Oximetry 01/30/18 01/30/18 01/30/18 23:19 23:30 23:31 Temperature 98.5 F Pulse Rate 70 78 78 Pulse Rate [ Bilateral Throughout] Respiratory 18 15 Rate Respiratory Rate [Bilateral Throughout] Blood Pressure 110/64 154/72 154/72 O2 Sat by Pulse 99 100 Oximetry 01/30/18 01/30/18 01/31/18 23:45 23:46 00:00 Temperature 97.5 F L Pulse Rate 84 80 78 Pulse Rate [ Bilateral Throughout] Respiratory 14 17 17 Rate Respiratory Rate [Bilateral Throughout] Blood Pressure 118/58 118/58 140/62 O2 Sat by Pulse 100 Oximetry 01/31/18 01/31/18 01/31/18 00:15 00:30 00:45 Temperature Pulse Rate 80 86 100 H Pulse Rate [ Bilateral Throughout] Respiratory 14 21 16 Rate Respiratory Rate [Bilateral Throughout] Blood Pressure 124/63 146/73 155/74 O2 Sat by Pulse 100 100 Oximetry 01/31/18 01/31/18 01/31/18 01:00 01:15 01:18 Temperature Pulse Rate 78 82 Pulse Rate [ 75 Bilateral Throughout] Respiratory 18 18 Rate Respiratory 17 Rate [Bilateral Throughout] Blood Pressure 132/68 151/68 O2 Sat by Pulse 100 100 Oximetry 01/31/18 01/31/18 01/31/18 01:28 01:30 01:45 Temperature Pulse Rate 80 80 Pulse Rate [ 86 Bilateral Throughout] Respiratory 20 21 Rate Respiratory 17 Rate [Bilateral Throughout] Blood Pressure 143/63 139/64 O2 Sat by Pulse 100 100 Oximetry 01/31/18 01/31/18 01/31/18 02:00 02:15 02:30 Temperature Pulse Rate 84 82 83 Pulse Rate [ Bilateral Throughout] Respiratory 22 21 19 Rate Respiratory Rate [Bilateral Throughout] Blood Pressure 140/69 124/63 131/63 O2 Sat by Pulse 100 100 100 Oximetry 01/31/18 01/31/18 01/31/18 02:45 03:00 03:12 Temperature Pulse Rate 82 85 Pulse Rate [ Bilateral Throughout] Respiratory 20 22 21 Rate Respiratory Rate [Bilateral Throughout] Blood Pressure 140/65 148/68 O2 Sat by Pulse 100 100 Oximetry 01/31/18 01/31/18 01/31/18 03:15 03:16 03:31 Temperature 97.9 F Pulse Rate 91 H 96 H Pulse Rate [ Bilateral Throughout] Respiratory 13 15 Rate Respiratory Rate [Bilateral Throughout] Blood Pressure 137/70 137/70 O2 Sat by Pulse 99 98 Oximetry 01/31/18 01/31/18 01/31/18 03:42 03:45 04:00 Temperature Pulse Rate 95 H 96 H Pulse Rate [ Bilateral Throughout] Respiratory 18 25 H 18 Rate Respiratory Rate [Bilateral Throughout] Blood Pressure 167/94 184/96 O2 Sat by Pulse 95 100 Oximetry 01/31/18 01/31/18 01/31/18 04:15 04:30 04:45 Temperature Pulse Rate 96 H 87 85 Pulse Rate [ Bilateral Throughout] Respiratory 28 H 24 21 Rate Respiratory Rate [Bilateral Throughout] Blood Pressure 178/85 150/77 139/72 O2 Sat by Pulse 93 93 96 Oximetry 01/31/18 01/31/18 01/31/18 05:00 05:15 05:30 Temperature Pulse Rate 82 86 82 Pulse Rate [ Bilateral Throughout] Respiratory 17 20 12 Rate Respiratory Rate [Bilateral Throughout] Blood Pressure 133/70 117/67 135/73 O2 Sat by Pulse 99 97 97 Oximetry 01/31/18 01/31/18 01/31/18 05:45 06:00 06:15 Temperature Pulse Rate 90 86 83 Pulse Rate [ Bilateral Throughout] Respiratory 22 19 20 Rate Respiratory Rate [Bilateral Throughout] Blood Pressure 131/73 126/71 125/69 O2 Sat by Pulse 98 100 100 Oximetry 01/31/18 01/31/18 01/31/18 06:30 06:45 07:00 Temperature Pulse Rate 91 H 88 85 Pulse Rate [ Bilateral Throughout] Respiratory 22 20 20 Rate Respiratory Rate [Bilateral Throughout] Blood Pressure 134/76 127/73 128/69 O2 Sat by Pulse 95 94 96 Oximetry 01/31/18 01/31/18 01/31/18 07:15 07:30 07:45 Temperature Pulse Rate 83 84 92 H Pulse Rate [ Bilateral Throughout] Respiratory 20 21 15 Rate Respiratory Rate [Bilateral Throughout] Blood Pressure 135/70 130/70 130/70 O2 Sat by Pulse 96 99 90 Oximetry 01/31/18 01/31/18 01/31/18 08:00 08:15 08:23 Temperature Pulse Rate 85 87 89 Pulse Rate [ 84 Bilateral Throughout] Respiratory 22 20 Rate Respiratory 20 Rate [Bilateral Throughout] Blood Pressure 123/73 135/74 135/74 O2 Sat by Pulse 100 100 100 Oximetry 01/31/18 01/31/18 01/31/18 08:31 08:34 08:45 Temperature Pulse Rate 85 91 H Pulse Rate [ 94 H Bilateral Throughout] Respiratory 14 14 Rate Respiratory 15 Rate [Bilateral Throughout] Blood Pressure 114/64 129/69 O2 Sat by Pulse 100 98 Oximetry 01/31/18 01/31/18 09:00 09:15 Temperature Pulse Rate 83 87 Pulse Rate [ Bilateral Throughout] Respiratory 14 16 Rate Respiratory Rate [Bilateral Throughout] Blood Pressure 101/54 119/68 O2 Sat by Pulse 98 98 Oximetry - General Appearance General appearance: intubated EENT: ATNC, other (ETT in place) Neck: no JVD Respiratory: Present: Other (coarse breath sounds) Cardiology: regular, S1S2 Gastrointestinal: hypoactive bowel sounds Neurologic: other (awakens to verbal stimuli) Musculoskeletal: other (ischemic, necrotic digits of hands, feet) - Lab 01/31/18 04:50 01/31/18 04:50 Most recent lab results Calcium 7.1 mg/dL (8.4-10.2) L 01/31/18 04:50 Magnesium 1.80 mg/dL (1.7-2.3) 01/29/18 06:00
--- NOTE | 2018-01-31 10:51 | Progress Note ---
Assessment and Plan Assessment and plan: Acute hypercapnic respiratory failure -Likely from drug abuse and aspiration -VAP bundle -on vent support -Lung protective strategies, ARDS-net protocol Left Pneumothorax -s/p chest tube with immediate decompression of pleural space and reexpansion of the lung -Follow up serial chest x-ray Severe Sepsis with septic shock likely from aspiration pneumonia-POA -Shock resolved -abx on hold per ID -Leukocytosis is improving -Left lobar infiltrate on admission -?pelvic abscess -IR consulted for evaluation for possible drainage and cx Penicillin allergy DM uncontrolled -Continue insulin therapy Shock required pressors -Resolved -likely from sepsis vs cardiogenic -off pressors but required 3 pressors on admission Bilateral upper and lower extremity ischemia/necrosis Etiology secondary to sepsis and previous pressors. Vascular follow up. Decompensated acute CHF - EF 30-35% on echo - cardiology following History of pacemaker insertion in 2008 post PCI History of CAD s/p PCI in 2008 JANESSA Etiology likely due to ATN from severe sepsis - monitor renal function, now on HD - HD per renal service. Patient currently dialyzing via a femoral Vas-Cath. Vascular surgery to place access next week - Avoid nephrotoxins, nephrology consulted History of cocaine and methamphetamine abuse Acute encephalopathy - Multifactorial, likely from drug abuse vs severe sepsis versus anoxic encephalopathy - CT head no acute finding - Pacemaker precludes getting MRI brain Ischemic hepatitis Elevated LFTs, etiology secondary to shock liver syndrome - Likely from severe hypotension causing shock liver - Continue to monitor Coagulopathy Etiology due to severe sepsis and abnormal liver function Thrombocytopenia Etiology likely secondary to sepsis - Montior Disposition: Continue ICU monitoring, very poor prognosis. The high probability of a clinically significant, sudden or life threatening deterioration of the [multiorgan] system(s) required my full and direct attention, intervention and personal management. The aggregate critical care time was [33] minutes. This time is in addition to time spent performing reported procedures but includes the following: [x] Data Review and interpretation [x] Patient assessment and monitoring of vital signs [x] Documentation [x] Medication orders and management History Interval history: 62-year-old admitted with hx of htn, polysubstance drug abuse per family, admitted after she was found unresponsive found in the bathroom of a friends home, noted with severe lactic acidosis, hypotensive on vasopressors, hypercapenic respiratory failure requiring intubation . Hospitalist Physical - Constitutional Vitals: Temp Pulse Resp BP Pulse Ox 97.9 F 83 19 133/61 100 01/31/18 10:00 01/31/18 10:30 01/31/18 10:00 01/31/18 10:30 01/31/18 10:00 General appearance: Present: other (intubated) - EENT Eyes: Present: PERRL, EOM intact ENT: hearing intact, clear oral mucosa, dentition normal - Neck Neck: Present: supple, normal ROM - Respiratory Respiratory effort: normal Respiratory: bilateral: CTA - Cardiovascular Rhythm: regular Heart Sounds: Present: S1 & S2. Absent: gallop, rub - Extremities Extremities: no ischemia, No edema, Full ROM - Abdominal General gastrointestinal: soft, non-tender, non-distended, normal bowel sounds - Integumentary Integumentary: Present: clear, warm, dry - Neurologic Neurologic: CNII-XII intact, moves all extremities Results - Labs CBC & Chem 7: 01/31/18 04:50 01/31/18 04:50 Labs: Laboratory Last Values WBC 13.6 K/mm3 (4.5-11.0) H 01/31/18 04:50 RBC 3.53 M/mm3 (3.65-5.03) L 01/31/18 04:50 Hgb 9.8 gm/dl (10.1-14.3) L 01/31/18 04:50 Hct 30.0 % (30.3-42.9) L 01/31/18 04:50 MCV 85 fl (79-97) 01/31/18 04:50 MCH 28 pg (28-32) 01/31/18 04:50 MCHC 33 % (30-34) 01/31/18 04:50 RDW 15.4 % (13.2-15.2) H 01/31/18 04:50 Plt Count 321 K/mm3 (140-440) 01/31/18 04:50 Lymph % (Auto) 3.6 % (13.4-35.0) L 01/31/18 04:50 Hale % (Auto) 8.7 % (0.0-7.3) H 01/31/18 04:50 Eos % (Auto) 0.3 % (0.0-4.3) 01/31/18 04:50 Baso % (Auto) 0.3 % (0.0-1.8) 01/31/18 04:50 Lymph # 0.5 K/mm3 (1.2-5.4) L 01/31/18 04:50 Hale # 1.2 K/mm3 (0.0-0.8) H 01/31/18 04:50 Eos # 0.0 K/mm3 (0.0-0.4) 01/31/18 04:50 Baso # 0.0 K/mm3 (0.0-0.1) 01/31/18 04:50 Add Manual Diff Complete 01/30/18 Unknown Total Counted 100 01/30/18 Unknown Seg Neutrophils % 87.1 % (40.0-70.0) H 01/31/18 04:50 Seg Neuts % (Manual) 95.0 % (40.0-70.0) H 01/30/18 Unknown Band Neutrophils % 2.0 % 01/30/18 Unknown Lymphocytes % (Manual) 1.0 % (13.4-35.0) L 01/30/18 Unknown Reactive Lymphs % (Man) 0 % 01/30/18 Unknown Monocytes % (Manual) 2.0 % (0.0-7.3) 01/30/18 Unknown Eosinophils % (Manual) 0 % (0.0-4.3) 01/30/18 Unknown Basophils % (Manual) 0 % (0.0-1.8) 01/30/18 Unknown Metamyelocytes % 0 % 01/30/18 Unknown Myelocytes % 0 % 01/30/18 Unknown Promyelocytes % 0 % 01/30/18 Unknown Blast Cells % 0 % 01/30/18 Unknown Nucleated RBC % Not Reportable 01/30/18 Unknown Seg Neutrophils # 11.8 K/mm3 (1.8-7.7) H 01/31/18 04:50 Seg Neutrophils # Man 12.2 K/mm3 (1.8-7.7) H 01/30/18 Unknown Band Neutrophils # 0.3 K/mm3 01/30/18 Unknown Lymphocytes # (Manual) 0.1 K/mm3 (1.2-5.4) L 01/30/18 Unknown Abs React Lymphs (Man) 0.0 K/mm3 01/30/18 Unknown Monocytes # (Manual) 0.3 K/mm3 (0.0-0.8) 01/30/18 Unknown Eosinophils # (Manual) 0.0 K/mm3 (0.0-0.4) 01/30/18 Unknown Basophils # (Manual) 0.0 K/mm3 (0.0-0.1) 01/30/18 Unknown Metamyelocytes # 0.0 K/mm3 01/30/18 Unknown Myelocytes # 0.0 K/mm3 01/30/18 Unknown Promyelocytes # 0.0 K/mm3 01/30/18 Unknown Blast Cells # 0.0 K/mm3 01/30/18 Unknown WBC Morphology Not Reportable 01/30/18 Unknown Hypersegmented Neuts Not Reportable 01/30/18 Unknown Hyposegmented Neuts Not Reportable 01/30/18 Unknown Hypogranular Neuts Not Reportable 01/30/18 Unknown Smudge Cells Not Reportable 01/30/18 Unknown Toxic Granulation Not Reportable 01/30/18 Unknown Toxic Vacuolation Not Reportable 01/30/18 Unknown Dohle Bodies Not Reportable 01/30/18 Unknown Pelger-Huet Anomaly Not Reportable 01/30/18 Unknown Opal Rods Not Reportable 01/30/18 Unknown Platelet Estimate Consistent w auto 01/30/18 Unknown Clumped Platelets Not Reportable 01/30/18 Unknown Plt Clumps, EDTA Not Reportable 01/30/18 Unknown Large Platelets Not Reportable 01/30/18 Unknown Giant Platelets Not Reportable 01/30/18 Unknown Platelet Satelliting Not Reportable 01/30/18 Unknown Plt Morphology Comment Not Reportable 01/30/18 Unknown RBC Morphology Not Reportable 01/30/18 Unknown Dimorphic RBCs Not Reportable 01/30/18 Unknown Polychromasia Not Reportable 01/30/18 Unknown Hypochromasia 1+ 01/30/18 Unknown Poikilocytosis Not Reportable 01/30/18 Unknown Anisocytosis Not Reportable 01/30/18 Unknown Microcytosis Few 01/30/18 Unknown Macrocytosis Not Reportable 01/30/18 Unknown Spherocytes Not Reportable 01/30/18 Unknown Pappenheimer Bodies Not Reportable 01/30/18 Unknown Sickle Cells Not Reportable 01/30/18 Unknown Target Cells Not Reportable 01/30/18 Unknown Tear Drop Cells Not Reportable 01/30/18 Unknown Ovalocytes Not Reportable 01/30/18 Unknown Stomatocytes Few 01/30/18 Unknown Helmet Cells Not Reportable 01/30/18 Unknown Frankel-Mary [place] Bodies Not Reportable 01/30/18 Unknown Flat Lick Rings Not Reportable 01/30/18 Unknown Jaclyn Cells Not Reportable 01/30/18 Unknown Bite Cells Not Reportable 01/30/18 Unknown Crenated Cell Not Reportable 01/30/18 Unknown Elliptocytes Not Reportable 01/30/18 Unknown Acanthocytes (Spur) Not Reportable 01/30/18 Unknown Rouleaux Not Reportable 01/30/18 Unknown Hemoglobin C Crystals Not Reportable 01/30/18 Unknown Schistocytes Not Reportable 01/30/18 Unknown Malaria parasites Not Reportable 01/30/18 Unknown Brock Bodies Not Reportable 01/30/18 Unknown Hem Pathologist Commnt No 01/30/18 Unknown PT 17.5 Sec. (12.2-14.9) H 01/20/18 07:00 INR 1.35 (0.87-1.13) H 01/20/18 07:00 Heparin Anti-Xa, Unfract Negative (Negative) 01/20/18 11:03 POC ABG pH 7.456 (7.35-7.45) H 01/30/18 04:47 POC ABG pCO2 36.5 (35-45) 01/30/18 04:47 POC ABG pO2 82 (80-105) 01/30/18 04:47 POC ABG HCO3 25.7 01/30/18 04:47 POC ABG Total CO2 27 01/30/18 04:47 POC ABG O2 Sat 97 01/30/18 04:47 POC ABG Base Excess 2 01/30/18 04:47 VBG pH 7.273 (7.320-7.420) L 01/17/18 16:54 FiO2 30 % 01/30/18 04:47 Sodium 141 mmol/L (137-145) 01/31/18 04:50 Potassium 3.9 mmol/L (3.6-5.0) 01/31/18 04:50 Chloride 99.0 mmol/L (98-107) 01/31/18 04:50 Carbon Dioxide 26 mmol/L (22-30) 01/31/18 04:50 Anion Gap 20 mmol/L 01/31/18 04:50 BUN 70 mg/dL (7-17) H 01/31/18 04:50 Creatinine 3.3 mg/dL (0.7-1.2) H 01/31/18 04:50 Estimated GFR 14 ml/min 01/31/18 04:50 BUN/Creatinine Ratio 21 % 01/31/18 04:50 Glucose 102 mg/dL (65-100) H 01/31/18 04:50 POC Glucose 96 (70-105) 01/31/18 04:57 Hemoglobin A1c 9.0 % (4-6) H 01/17/18 22:36 Lactic Acid 1.40 mmol/L (0.7-2.0) 01/24/18 15:08 Calcium 7.1 mg/dL (8.4-10.2) L 01/31/18 04:50 Magnesium 1.80 mg/dL (1.7-2.3) 01/29/18 06:00 Total Bilirubin 0.50 mg/dL (0.1-1.2) 01/29/18 06:00 AST 21 units/L (5-40) 01/29/18 06:00 ALT 53 units/L (7-56) 01/29/18 06:00 Alkaline Phosphatase 88 units/L (35-129) 01/29/18 06:00 C-Reactive Protein 3.30 mg/dL (0.00-1.30) H 01/24/18 15:08 Total Protein 4.5 g/dL (6.3-8.2) L 01/29/18 06:00 Albumin 2.0 g/dL (3.9-5) L 01/29/18 06:00 Albumin/Globulin Ratio 0.8 % 01/29/18 06:00 Serotonin Release Assay See scanned report 01/20/18 11:03 Random Vancomycin 19.8 ug/mL (0-40.0) 01/27/18 05:20 ALISA Screen Negative (Negative) 01/20/18 Unknown Heparin-induced Plt Ab Negative (Negative) 01/20/18 11:03 UF Heparin High Dose 0 % Release 01/20/18 11:03 NEGRITA UFH Low Dose 0.1 0 % Release 01/20/18 11:03 NEGRITA UFH Low Dose 0.5 0 % Release 01/20/18 11:03 Complement C3 47 mg/dL (83-193) L 01/20/18 Unknown Complement C4 9 mg/dL (15-57) L 01/20/18 Unknown Hepatitis A IgM Ab Non-reactive (NonReactive) 01/20/18 07:00 Hep Bs Antigen Non-reactive (Negative) 01/20/18 07:00 Hep B Core IgM Ab Non-reactive (NonReactive) 01/20/18 07:00 Hepatitis C Antibody Non-reactive (NonReactive) 01/20/18 07:00 HIV 1&2 Antibody Rapid Non react (Non React) 01/20/18 Unknown HIV P24 Antigen Non react (Non React) 01/20/18 Unknown
--- NOTE | 2018-01-31 14:22 | Event Note ---
Date: 01/31/18 Contacted for evaluation for drainage of pelvic collections a 63-year-old female with numerous medical issues who is currently intubated. Multiple cystic lesions associated with masses in the pelvis in a postmenopausal female patient. These are likely related to the ovaries. Recommended utility bag assembler consult. This is concerning for underlying ovarian malignancy. Percutaneous drainage of ovarian cysts is contraindicated.
[2018-01-31] MEDS: PEPCID PO SCH (15:39)
--- NOTE | 2018-01-31 18:23 | Event Note ---
Date: 01/31/[address] Cano about vascath in the groin. She will remove it today. Nephrology will reassess need for vascath on saturday. If we need to replace catheter, we will attempt to place it in the jugular vein.
[2018-02-01] MEDS: DUONEB *Not for PRN Use IH SCH ×4 (01:37→20:09)
[2018-02-01 04:15] LABS: Basophils % (Auto) 0.4 % (0.0-1.8); Eosinophils # (Auto) 0.1 K/mm3 (0.0-0.4); Eosinophils % (Auto) 1.3 % (0.0-4.3); Hematocrit 27.5 % (30.3-42.9); Hemoglobin 8.7 gm/dl (10.1-14.3); Lymphocytes # (Auto) 0.7 K/mm3 (1.2-5.4); Lymphocytes % (Auto) 6.4 % (13.4-35.0); Mean Corpuscular HGB Conc 32 % (30-34); Mean Corpuscular Hemoglobin 28 pg (28-32); Mean Corpuscular Volume 87 fl (79-97); Monocytes # (Auto) 1.1 K/mm3 (0.0-0.8); Monocytes % (Auto) 10.2 % (0.0-7.3); Platelet Count 257 K/mm3 (140-440); Red Blood Count 3.16 M/mm3 (3.65-5.03); Red Cell Distribution Width 15.2 % (13.2-15.2)
[2018-02-01 05:00] LABS: Calcium 7.1 mg/dL (8.4-10.2)
[2018-02-01] MEDS: HEPARIN SUB-Q SCH ×3 (05:33→21:10)
[2018-02-01] MEDS: HumaLOG SUB-Q SCH ×4 (05:35→18:22)
[2018-02-01] MEDS: PEPCID PO SCH (09:46)
[2018-02-01] MEDS ORDERED: DELTASONE PO SCH (10:00)
--- NOTE | 2018-02-01 11:00 | Progress Note ---
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 She completes antibiotics today -IR to place trialysis catheter, neck veins, discontinue the femoral HD catheter - VAP bundle addressed - continue daily SATs - HD/UF per nephrology for toxin and volume clearance - continue steroid taper - continue stress ulcer prophylaxis - continue supplemental oxygen to wean for oxygen saturations >90% - continue other care per attending/other consultants ....remains critically ill on MVS and at high risk for further deterioration including Subjective Date of service: 02/01/18 Principal diagnosis: Acute hypoxic respiratory failure, severe sepsis with shock , encephalopathy Interval history: Patient seen today for: Seen and examined at bedside; 24-hour events reviewed; nursing and respiratory care staff consulted; no adverse overnight events reported to me; Awake and alert, mouthing "water". Did not tolerate PSV trial today. HIT panel negative. Vitals, labs, medications, chart reviewed. Discussed in IDT rounds Objective - Exam Narrative Exam: General appearance: sedated on the vent Eyes: anicteric sclerae, moist conjunctivae; no lid-lag; PERRLA HENT: Atraumatic; oropharynx clear +ETT +NGT Neck: Trachea midline; supple, no thyromegaly or lymphadenopathy Lungs: juan rhonchi, left sided chest tube CV: tachy Abdomen: Soft, non-tender; distended Extremities: No peripheral edema or extremity lymphadenopathy Skin: . +bilateral hands, multiple fingers and sole and toes necrotic changes. Multiple skin tears and ecchymoses Psych: sedated Neuro: sedated Lines: right fem vascath, right IJ TLC Vital Signs - 12hr 01/31/18 01/31/18 01/31/18 23:15 23:22 23:31 Temperature Pulse Rate 91 H 88 82 Pulse Rate [ Bilateral Throughout] Respiratory 17 14 Rate Respiratory Rate [Bilateral Throughout] Blood Pressure 77/42 77/42 93/55 O2 Sat by Pulse 98 98 100 Oximetry 01/31/18 01/31/18 01/31/18 23:36 23:39 23:45 Temperature 98.3 F Pulse Rate 88 83 Pulse Rate [ Bilateral Throughout] Respiratory 17 19 Rate Respiratory Rate [Bilateral Throughout] Blood Pressure 93/55 O2 Sat by Pulse 99 Oximetry 02/01/18 02/01/18 02/01/18 00:00 00:15 00:31 Temperature Pulse Rate 79 82 82 Pulse Rate [ Bilateral Throughout] Respiratory 15 16 15 Rate Respiratory Rate [Bilateral Throughout] Blood Pressure 95/52 95/52 93/55 O2 Sat by Pulse 100 100 100 Oximetry 02/01/18 02/01/18 02/01/18 00:45 01:00 01:11 Temperature Pulse Rate 83 83 88 Pulse Rate [ Bilateral Throughout] Respiratory 15 18 17 Rate Respiratory Rate [Bilateral Throughout] Blood Pressure 93/55 95/52 O2 Sat by Pulse 99 100 Oximetry 02/01/18 02/01/18 02/01/18 01:15 01:31 01:37 Temperature Pulse Rate 83 83 Pulse Rate [ 82 Bilateral Throughout] Respiratory 16 14 Rate Respiratory 14 Rate [Bilateral Throughout] Blood Pressure 92/59 92/59 O2 Sat by Pulse 99 100 Oximetry 02/01/18 02/01/18 02/01/18 01:45 02:00 02:15 Temperature Pulse Rate 82 84 85 Pulse Rate [ 83 Bilateral Throughout] Respiratory 14 16 17 Rate Respiratory 14 Rate [Bilateral Throughout] Blood Pressure 92/59 108/58 108/58 O2 Sat by Pulse 97 99 99 Oximetry 02/01/18 02/01/18 02/01/18 02:31 02:45 03:00 Temperature Pulse Rate 83 90 86 Pulse Rate [ Bilateral Throughout] Respiratory 16 20 18 Rate Respiratory Rate [Bilateral Throughout] Blood Pressure 108/58 108/58 98/55 O2 Sat by Pulse 99 99 100 Oximetry 02/01/18 02/01/18 02/01/18 03:15 03:30 03:31 Temperature 98.3 F Pulse Rate 99 H 86 97 H Pulse Rate [ Bilateral Throughout] Respiratory 24 17 14 Rate Respiratory Rate [Bilateral Throughout] Blood Pressure 98/55 98/52 98/55 O2 Sat by Pulse 97 100 93 Oximetry 02/01/18 02/01/18 02/01/18 03:45 04:00 04:15 Temperature Pulse Rate 90 88 90 Pulse Rate [ Bilateral Throughout] Respiratory 16 15 19 Rate Respiratory Rate [Bilateral Throughout] Blood Pressure 98/55 98/52 98/52 O2 Sat by Pulse 100 100 100 Oximetry 02/01/18 02/01/18 02/01/18 04:31 04:45 05:01 Temperature Pulse Rate 78 85 84 Pulse Rate [ Bilateral Throughout] Respiratory 15 17 16 Rate Respiratory Rate [Bilateral Throughout] Blood Pressure 98/52 98/52 98/52 O2 Sat by Pulse 100 99 99 Oximetry 02/01/18 02/01/18 02/01/18 05:15 05:23 05:31 Temperature Pulse Rate 94 H 94 H 86 Pulse Rate [ Bilateral Throughout] Respiratory 22 17 17 Rate Respiratory Rate [Bilateral Throughout] Blood Pressure 98/52 118/60 O2 Sat by Pulse 100 100 Oximetry 02/01/18 02/01/18 02/01/18 05:45 06:00 06:15 Temperature Pulse Rate 85 84 84 Pulse Rate [ Bilateral Throughout] Respiratory 17 16 18 Rate Respiratory Rate [Bilateral Throughout] Blood Pressure 118/60 94/56 94/56 O2 Sat by Pulse 100 100 100 Oximetry 02/01/18 02/01/18 02/01/18 06:31 06:45 07:00 Temperature Pulse Rate 97 H 85 88 Pulse Rate [ Bilateral Throughout] Respiratory 17 16 18 Rate Respiratory Rate [Bilateral Throughout] Blood Pressure 94/56 94/56 110/59 O2 Sat by Pulse 98 Oximetry 02/01/18 02/01/18 02/01/18 07:15 07:30 07:46 Temperature Pulse Rate 91 H 89 87 Pulse Rate [ Bilateral Throughout] Respiratory 19 19 17 Rate Respiratory Rate [Bilateral Throughout] Blood Pressure 110/59 110/59 O2 Sat by Pulse Oximetry 02/01/18 02/01/18 02/01/18 08:00 08:16 08:30 Temperature 99.0 F Pulse Rate 102 H 102 H 91 H Pulse Rate [ Bilateral Throughout] Respiratory 20 14 24 Rate Respiratory Rate [Bilateral Throughout] Blood Pressure 110/59 110/59 110/59 O2 Sat by Pulse Oximetry 02/01/18 02/01/18 08:31 08:46 Temperature Pulse Rate 90 86 Pulse Rate [ Bilateral Throughout] Respiratory 24 23 Rate Respiratory Rate [Bilateral Throughout] Blood Pressure 110/59 110/59 O2 Sat by Pulse Oximetry Constitutional: no acute distress Eyes: non-icteric ENT: oropharynx moist, other (ETT 20 cm MARGOT and advanced to 23cm MARGOT) Neck: supple, no lymphadenopathy, no JVD Effort: mildly labored Ascultation: Bilateral: diminished breath sounds, rales Percussion: Bilateral: not dull Cardiovascular: regular rate and rhythm, other (no rubs or murmurs) Gastrointestinal: normoactive bowel sounds, soft, non-tender, non-distended, other (no [place] HSM) Integumentary: normal Extremities: no cyanosis, no edema, pink and warm, pulses normal Neurologic: non-focal exam (grossly), pupils equal and round, CN II-XII normal, motor strength normal and Psychiatric: other (calm) CBC and BMP: 02/01/18 04:00 02/01/18 04:00 ABG, PT/INR, D-dimer: ABG POC ABG pH 7.456 (7.35-7.45) H 01/30/18 04:47 POC ABG pCO2 36.5 (35-45) 01/30/18 04:47 POC ABG pO2 82 (80-105) 01/30/18 04:47 POC ABG HCO3 25.7 01/30/18 04:47 POC ABG Total CO2 27 01/30/18 04:47 POC ABG O2 Sat 97 01/30/18 04:47 PT/INR, D-dimer PT 17.5 Sec. (12.2-14.9) H 01/20/18 07:00 INR 1.35 (0.87-1.13) H 01/20/18 07:00 Abnormal lab findings: Abnormal Labs 01/17/18 01/17/18 01/17/18 15:25 16:15 16:48 WBC RBC Hgb Hct MCH RDW Plt Count Lymph % (Auto) [place] % (Auto) Lymph # [place] # Seg Neutrophils % Seg Neuts % (Manual) Lymphocytes % (Manual) Monocytes % (Manual) Nucleated RBC % Seg Neutrophils # Seg Neutrophils # Man Lymphocytes # (Manual) Monocytes # (Manual) PT INR POC ABG pH 7.099 L POC ABG pCO2 58.9 H POC ABG pO2 149 H VBG pH Sodium Potassium Chloride Carbon Dioxide BUN Creatinine Glucose POC Glucose < 40 L 121 H Hemoglobin A1c Lactic Acid Calcium Ionized Calcium Total Bilirubin AST ALT Alkaline Phosphatase C-Reactive Protein Total Protein Albumin Complement C3 Complement C4 01/17/18 01/17/18 01/17/18 16:54 16:54 16:54 WBC RBC Hgb Hct MCH RDW Plt Count Lymph % (Auto) [place] % (Auto) Lymph # [place] # Seg Neutrophils % Seg Neuts % (Manual) 72.0 H Lymphocytes % (Manual) 3.0 L Monocytes % (Manual) Nucleated RBC % Seg Neutrophils # Seg Neutrophils # Man Lymphocytes # (Manual) 0.2 L Monocytes # (Manual) PT 18.5 H INR 1.45 H POC ABG pH POC ABG pCO2 POC ABG pO2 VBG pH Sodium 136 L Potassium Chloride 97.8 L Carbon Dioxide 16 L BUN 43 H Creatinine 3.3 H Glucose 121 H POC Glucose Hemoglobin A1c Lactic Acid Calcium 6.7 L Ionized Calcium Total Bilirubin AST ALT Alkaline Phosphatase C-Reactive Protein Total Protein 4.4 L Albumin 2.3 L Complement C3 Complement C4 01/17/18 01/17/18 01/17/18 16:54 16:54 17:11 WBC RBC Hgb Hct MCH RDW Plt Count Lymph % (Auto) [place] % (Auto) Lymph # [place] # Seg Neutrophils % Seg Neuts % (Manual) Lymphocytes % (Manual) Monocytes % (Manual) Nucleated RBC % Seg Neutrophils # Seg Neutrophils # Man Lymphocytes # (Manual) Monocytes # (Manual) PT INR POC ABG pH POC ABG pCO2 POC ABG pO2 VBG pH 7.273 L Sodium Potassium Chloride Carbon Dioxide BUN Creatinine Glucose POC Glucose Hemoglobin A1c Lactic Acid 4.70 H* 4.30 H* Calcium Ionized Calcium Total Bilirubin AST ALT Alkaline Phosphatase C-Reactive Protein Total Protein Albumin Complement C3 Complement C4 01/17/18 01/17/18 01/17/18 18:02 18:15 19:21 WBC RBC Hgb Hct MCH RDW Plt Count Lymph % (Auto) [place] % (Auto) Lymph # [place] # Seg Neutrophils % Seg Neuts % (Manual) Lymphocytes % (Manual) Monocytes % (Manual) Nucleated RBC % Seg Neutrophils # Seg Neutrophils # Man Lymphocytes # (Manual) Monocytes # (Manual) PT INR POC ABG pH 7.177 L POC ABG pCO2 POC ABG pO2 VBG pH Sodium Potassium Chloride Carbon Dioxide BUN Creatinine Glucose POC Glucose < 40 L Hemoglobin A1c Lactic Acid 3.00 H* Calcium Ionized Calcium Total Bilirubin AST ALT Alkaline Phosphatase C-Reactive Protein Total Protein Albumin Complement C3 Complement C4 01/17/18 01/17/18 01/17/18 22:36 22:36 23:16 WBC RBC Hgb Hct MCH RDW Plt Count Lymph % (Auto) [place] % (Auto) Lymph # [place] # Seg Neutrophils % Seg Neuts % (Manual) Lymphocytes % (Manual) Monocytes % (Manual) Nucleated RBC % Seg Neutrophils # Seg Neutrophils # Man Lymphocytes # (Manual) Monocytes # (Manual) PT INR POC ABG pH 7.112 L POC ABG pCO2 50.1 H POC ABG pO2 50 L VBG pH Sodium Potassium Chloride Carbon Dioxide BUN Creatinine Glucose POC Glucose Hemoglobin A1c 9.0 H Lactic Acid 5.50 H* Calcium Ionized Calcium Total Bilirubin AST ALT Alkaline Phosphatase C-Reactive Protein Total Protein Albumin Complement C3 Complement C4 01/18/18 01/18/18 01/18/18 01:26 03:21 03:21 WBC RBC Hgb Hct MCH RDW Plt Count Lymph % (Auto) [place] % (Auto) Lymph # [place] # Seg Neutrophils % Seg Neuts % (Manual) 27.0 L Lymphocytes % (Manual) 3.0 L Monocytes % (Manual) 14.0 H Nucleated RBC % Seg Neutrophils # Seg Neutrophils # Man Lymphocytes # (Manual) 0.3 L Monocytes # (Manual) 1.4 H PT INR POC ABG pH POC ABG pCO2 POC ABG pO2 VBG pH Sodium Potassium Chloride Carbon Dioxide BUN Creatinine Glucose POC Glucose 107 H Hemoglobin A1c Lactic Acid 8.00 H* Calcium Ionized Calcium Total Bilirubin AST ALT Alkaline Phosphatase C-Reactive Protein Total Protein Albumin Complement C3 Complement C4 01/18/18 01/18/18 01/18/18 03:21 04:40 05:07 WBC RBC Hgb Hct MCH RDW Plt Count Lymph % (Auto) [place] % (Auto) Lymph # [place] # Seg Neutrophils % Seg Neuts % (Manual) Lymphocytes % (Manual) Monocytes % (Manual) Nucleated RBC % Seg Neutrophils # Seg Neutrophils # Man Lymphocytes # (Manual) Monocytes # (Manual) PT INR POC ABG pH 7.093 L POC ABG pCO2 31.5 L POC ABG pO2 77 L VBG pH Sodium Potassium Chloride 96.9 L Carbon Dioxide 14 L BUN 47 H Creatinine 3.4 H Glucose POC Glucose Hemoglobin A1c Lactic Acid 11.10 H* Calcium 6.4 L Ionized Calcium Total Bilirubin AST 47 H ALT Alkaline Phosphatase C-Reactive Protein Total Protein 4.3 L Albumin 2.4 L Complement C3 Complement C4 01/18/18 01/18/18 01/18/18 06:29 07:06 11:44 WBC RBC Hgb Hct MCH RDW Plt Count Lymph % (Auto) [place] % (Auto) Lymph # [place] # Seg Neutrophils % Seg Neuts % (Manual) Lymphocytes % (Manual) Monocytes % (Manual) Nucleated RBC % Seg Neutrophils # Seg Neutrophils # Man Lymphocytes # (Manual) Monocytes # (Manual) PT INR POC ABG pH POC ABG pCO2 POC ABG pO2 VBG pH Sodium Potassium Chloride Carbon Dioxide BUN Creatinine Glucose POC Glucose 47 L 149 H < 40 L Hemoglobin A1c Lactic Acid Calcium Ionized Calcium Total Bilirubin AST ALT Alkaline Phosphatase C-Reactive Protein Total Protein Albumin Complement C3 Complement C4 01/18/18 01/18/18 01/18/18 11:46 14:15 18:01 WBC RBC Hgb Hct MCH RDW Plt Count Lymph % (Auto) [place] % (Auto) Lymph # [place] # Seg Neutrophils % Seg Neuts % (Manual) Lymphocytes % (Manual) Monocytes % (Manual) Nucleated RBC % Seg Neutrophils # Seg Neutrophils # Man Lymphocytes # (Manual) Monocytes # (Manual) PT INR POC ABG pH POC ABG pCO2 POC ABG pO2 VBG pH Sodium Potassium Chloride Carbon Dioxide BUN Creatinine Glucose POC Glucose 116 H < 40 L Hemoglobin A1c Lactic Acid 10.00 H* Calcium Ionized Calcium Total Bilirubin AST ALT Alkaline Phosphatase C-Reactive Protein Total Protein Albumin Complement C3 Complement C4 01/18/18 01/18/18 01/18/18 18:02 23:25 23:27 WBC RBC Hgb Hct MCH RDW Plt Count Lymph % (Auto) [place] % (Auto) Lymph # [place] # Seg Neutrophils % Seg Neuts % (Manual) Lymphocytes % (Manual) Monocytes % (Manual) Nucleated RBC % Seg Neutrophils # Seg Neutrophils # Man Lymphocytes # (Manual) Monocytes # (Manual) PT INR POC ABG pH POC ABG pCO2 POC ABG pO2 VBG pH Sodium Potassium Chloride Carbon Dioxide BUN Creatinine Glucose POC Glucose 136 H < 40 L < 40 L Hemoglobin A1c Lactic Acid Calcium Ionized Calcium Total Bilirubin AST ALT Alkaline Phosphatase C-Reactive Protein Total Protein Albumin Complement C3 Complement C4 01/19/18 01/19/18 01/19/18 04:02 06:50 06:50 WBC 18.5 H RBC Hgb Hct MCH RDW Plt Count 136 L Lymph % (Auto) [place] % (Auto) Lymph # [place] # Seg Neutrophils % Seg Neuts % (Manual) 86.0 H Lymphocytes % (Manual) 4.0 L Monocytes % (Manual) Nucleated RBC % Seg Neutrophils # Seg Neutrophils # Man 15.9 H Lymphocytes # (Manual) 0.7 L Monocytes # (Manual) 1.1 H PT 21.3 H INR 1.73 H POC ABG pH POC ABG pCO2 28.3 L POC ABG pO2 57 L VBG pH Sodium Potassium Chloride Carbon Dioxide BUN Creatinine Glucose POC Glucose Hemoglobin A1c Lactic Acid Calcium Ionized Calcium Total Bilirubin AST ALT Alkaline Phosphatase C-Reactive Protein Total Protein Albumin Complement C3 Complement C4 01/19/18 01/19/18 01/19/18 06:50 08:45 11:17 WBC RBC Hgb Hct MCH RDW Plt Count Lymph % (Auto) [place] % (Auto) Lymph # [place] # Seg Neutrophils % Seg Neuts % (Manual) Lymphocytes % (Manual) Monocytes % (Manual) Nucleated RBC % Seg Neutrophils # Seg Neutrophils # Man Lymphocytes # (Manual) Monocytes # (Manual) PT INR POC ABG pH POC ABG pCO2 POC ABG pO2 VBG pH Sodium 135 L Potassium Chloride 92.8 L Carbon Dioxide 19 L BUN 31 H Creatinine 2.6 H Glucose POC Glucose 110 H Hemoglobin A1c Lactic Acid 7.90 H* Calcium 7.1 L Ionized Calcium Total Bilirubin 1.60 H AST 2526 H ALT 1187 H Alkaline Phosphatase 133 H C-Reactive Protein Total Protein 4.8 L Albumin 2.0 L Complement C3 Complement C4 01/19/18 01/19/18 01/19/18 11:31 22:12 23:34 WBC RBC Hgb Hct MCH RDW Plt Count Lymph % (Auto) [place] % (Auto) Lymph # [place] # Seg Neutrophils % Seg Neuts % (Manual) Lymphocytes % (Manual) Monocytes % (Manual) Nucleated RBC % Seg Neutrophils # Seg Neutrophils # Man Lymphocytes # (Manual) Monocytes # (Manual) PT INR POC ABG pH POC ABG pCO2 31.6 L POC ABG pO2 59 L VBG pH Sodium Potassium Chloride Carbon Dioxide BUN Creatinine Glucose POC Glucose 131 H 53 L Hemoglobin A1c Lactic Acid Calcium Ionized Calcium Total Bilirubin AST ALT Alkaline Phosphatase C-Reactive Protein Total Protein Albumin Complement C3 Complement C4 01/20/18 01/20/18 01/20/18 05:18 05:18 05:19 WBC 19.7 H RBC Hgb Hct MCH 27 L RDW Plt Count 84 L Lymph % (Auto) [place] % (Auto) Lymph # [place] # Seg Neutrophils % Seg Neuts % (Manual) 84.0 H Lymphocytes % (Manual) 2.0 L Monocytes % (Manual) 8.0 H Nucleated RBC % Seg Neutrophils # Seg Neutrophils # Man 16.5 H Lymphocytes # (Manual) 0.4 L Monocytes # (Manual) 1.6 H PT INR POC ABG pH POC ABG pCO2 POC ABG pO2 VBG pH Sodium 136 L Potassium Chloride 96.9 L Carbon Dioxide 17 L BUN 65 H Creatinine 4.1 H D Glucose 104 H POC Glucose 125 H Hemoglobin A1c Lactic Acid Calcium 7.1 L Ionized Calcium Total Bilirubin 1.60 H AST 1702 H ALT 1141 H Alkaline Phosphatase 172 H C-Reactive Protein Total Protein 5.0 L Albumin 1.7 L Complement C3 Complement C4 01/20/18 01/20/18 01/20/18 07:00 11:48 13:54 WBC RBC Hgb Hct MCH RDW Plt Count Lymph % (Auto) [place] % (Auto) Lymph # [place] # Seg Neutrophils % Seg Neuts % (Manual) Lymphocytes % (Manual) Monocytes % (Manual) Nucleated RBC % Seg Neutrophils # Seg Neutrophils # Man Lymphocytes # (Manual) Monocytes # (Manual) PT 17.5 H INR 1.35 H POC ABG pH POC ABG pCO2 POC ABG pO2 VBG pH Sodium Potassium Chloride Carbon Dioxide BUN Creatinine Glucose POC Glucose 109 H Hemoglobin A1c Lactic Acid Calcium Ionized Calcium Total Bilirubin AST ALT Alkaline Phosphatase C-Reactive Protein 37.50 H Total Protein Albumin Complement C3 Complement C4 01/20/18 01/20/18 01/20/18 17:28 17:51 20:50 WBC RBC Hgb Hct MCH RDW Plt Count Lymph % (Auto) [place] % (Auto) Lymph # [place] # Seg Neutrophils % Seg Neuts % (Manual) Lymphocytes % (Manual) Monocytes % (Manual) Nucleated RBC % Seg Neutrophils # Seg Neutrophils # Man Lymphocytes # (Manual) Monocytes # (Manual) PT INR POC ABG pH POC ABG pCO2 POC ABG pO2 VBG pH Sodium Potassium Chloride Carbon Dioxide BUN Creatinine Glucose POC Glucose 140 H Hemoglobin A1c Lactic Acid 2.70 H* 2.30 H* Calcium Ionized Calcium Total Bilirubin AST ALT Alkaline Phosphatase C-Reactive Protein Total Protein Albumin Complement C3 Complement C4 01/20/18 01/20/18 01/20/18 23:55 Unknown Unknown WBC RBC Hgb Hct MCH RDW Plt Count Lymph % (Auto) [place] % (Auto) Lymph # [place] # Seg Neutrophils % Seg Neuts % (Manual) Lymphocytes % (Manual) Monocytes % (Manual) Nucleated RBC % Seg Neutrophils # Seg Neutrophils # Man Lymphocytes # (Manual) Monocytes # (Manual) PT INR POC ABG pH POC ABG pCO2 POC ABG pO2 VBG pH Sodium Potassium Chloride Carbon Dioxide BUN Creatinine Glucose POC Glucose 149 H Hemoglobin A1c Lactic Acid 2.50 H* Calcium Ionized Calcium Total Bilirubin AST ALT Alkaline Phosphatase C-Reactive Protein Total Protein Albumin Complement C3 47 L Complement C4 01/20/18 01/21/18 01/21/18 Unknown 00:12 04:27 WBC RBC Hgb Hct MCH RDW Plt Count Lymph % (Auto) [place] % (Auto) Lymph # [place] # Seg Neutrophils % Seg Neuts % (Manual) Lymphocytes % (Manual) Monocytes % (Manual) Nucleated RBC % Seg Neutrophils # Seg Neutrophils # Man Lymphocytes # (Manual) Monocytes # (Manual) PT INR POC ABG pH POC ABG pCO2 33.8 L POC ABG pO2 72 L VBG pH Sodium Potassium Chloride Carbon Dioxide BUN Creatinine Glucose POC Glucose 134 H Hemoglobin A1c Lactic Acid Calcium Ionized Calcium Total Bilirubin AST ALT Alkaline Phosphatase C-Reactive Protein Total Protein Albumin Complement C3 Complement C4 9 L 01/21/18 01/21/18 01/21/18 05:00 05:00 05:00 WBC 21.7 H RBC Hgb Hct MCH 27 L RDW Plt Count 67 L Lymph % (Auto) [place] % (Auto) Lymph # [place] # Seg Neutrophils % Seg Neuts % (Manual) 71.0 H Lymphocytes % (Manual) 9.0 L Monocytes % (Manual) Nucleated RBC % 4.0 H Seg Neutrophils # Seg Neutrophils # Man 15.4 H Lymphocytes # (Manual) Monocytes # (Manual) PT INR POC ABG pH POC ABG pCO2 POC ABG pO2 VBG pH Sodium Potassium Chloride Carbon Dioxide 21 L BUN 71 H Creatinine 4.1 H Glucose 149 H POC Glucose Hemoglobin A1c Lactic Acid 2.10 H* Calcium 7.5 L Ionized Calcium Total Bilirubin AST 494 H ALT 780 H Alkaline Phosphatase 151 H C-Reactive Protein Total Protein 4.9 L Albumin 1.9 L Complement C3 Complement C4 01/21/18 01/21/18 01/21/18 05:18 12:20 18:07 WBC RBC Hgb Hct MCH RDW Plt Count Lymph % (Auto) [place] % (Auto) Lymph # [place] # Seg Neutrophils % Seg Neuts % (Manual) Lymphocytes % (Manual) Monocytes % (Manual) Nucleated RBC % Seg Neutrophils # Seg Neutrophils # Man Lymphocytes # (Manual) Monocytes # (Manual) PT INR POC ABG pH POC ABG pCO2 POC ABG pO2 VBG pH Sodium Potassium Chloride Carbon Dioxide BUN Creatinine Glucose POC Glucose 132 H 158 H 143 H Hemoglobin A1c Lactic Acid Calcium Ionized Calcium Total Bilirubin AST ALT Alkaline Phosphatase C-Reactive Protein Total Protein Albumin Complement C3 Complement C4 01/21/18 01/22/18 01/22/18 23:40 03:48 04:10 WBC 24.9 H RBC Hgb Hct MCH 27 L RDW Plt Count 80 L Lymph % (Auto) [place] % (Auto) Lymph # [place] # Seg Neutrophils % Seg Neuts % (Manual) Lymphocytes % (Manual) Monocytes % (Manual) Nucleated RBC % Seg Neutrophils # Seg Neutrophils # Man Lymphocytes # (Manual) Monocytes # (Manual) PT INR POC ABG pH POC ABG pCO2 POC ABG pO2 65 L VBG pH Sodium Potassium Chloride Carbon Dioxide BUN Creatinine Glucose POC Glucose 136 H Hemoglobin A1c Lactic Acid Calcium Ionized Calcium Total Bilirubin AST ALT Alkaline Phosphatase C-Reactive Protein Total Protein Albumin Complement C3 Complement C4 01/22/18 01/22/18 01/22/18 04:10 05:56 11:30 WBC RBC Hgb Hct MCH RDW Plt Count Lymph % (Auto) [place] % (Auto) Lymph # [place] # Seg Neutrophils % Seg Neuts % (Manual) Lymphocytes % (Manual) Monocytes % (Manual) Nucleated RBC % Seg Neutrophils # Seg Neutrophils # Man Lymphocytes # (Manual) Monocytes # (Manual) PT INR POC ABG pH POC ABG pCO2 POC ABG pO2 VBG pH Sodium Potassium Chloride 97.7 L Carbon Dioxide BUN 72 H Creatinine 3.6 H Glucose 145 H POC Glucose 139 H 156 H Hemoglobin A1c Lactic Acid Calcium 7.3 L Ionized Calcium Total Bilirubin AST 146 H ALT 547 H Alkaline Phosphatase C-Reactive Protein Total Protein 5.2 L Albumin 2.3 L Complement C3 Complement C4 01/22/18 01/23/18 01/23/18 17:41 00:00 04:39 WBC RBC Hgb Hct MCH RDW Plt Count Lymph % (Auto) [place] % (Auto) Lymph # [place] # Seg Neutrophils % Seg Neuts % (Manual) Lymphocytes % (Manual) Monocytes % (Manual) Nucleated RBC % Seg Neutrophils # Seg Neutrophils # Man Lymphocytes # (Manual) Monocytes # (Manual) PT INR POC ABG pH POC ABG pCO2 31.9 L POC ABG pO2 62 L VBG pH Sodium Potassium Chloride Carbon Dioxide BUN Creatinine Glucose POC Glucose 185 H 150 H Hemoglobin A1c Lactic Acid Calcium Ionized Calcium Total Bilirubin AST ALT Alkaline Phosphatase C-Reactive Protein Total Protein Albumin Complement C3 Complement C4 01/23/18 01/23/18 01/23/18 05:24 11:38 14:20 WBC RBC Hgb Hct MCH RDW Plt Count Lymph % (Auto) [place] % (Auto) Lymph # [place] # Seg Neutrophils % Seg Neuts % (Manual) Lymphocytes % (Manual) Monocytes % (Manual) Nucleated RBC % Seg Neutrophils # Seg Neutrophils # Man Lymphocytes # (Manual) Monocytes # (Manual) PT INR POC ABG pH POC ABG pCO2 31.4 L POC ABG pO2 55 L VBG pH Sodium Potassium Chloride Carbon Dioxide BUN Creatinine Glucose POC Glucose 215 H 182 H Hemoglobin A1c Lactic Acid Calcium Ionized Calcium Total Bilirubin AST ALT Alkaline Phosphatase C-Reactive Protein Total Protein Albumin Complement C3 Complement C4 01/23/18 01/24/18 01/24/18 17:26 00:10 03:40 WBC 34.5 H RBC Hgb Hct MCH 27 L RDW Plt Count 130 L Lymph % (Auto) [place] % (Auto) Lymph # [place] # Seg Neutrophils % Seg Neuts % (Manual) Lymphocytes % (Manual) Monocytes % (Manual) Nucleated RBC % Seg Neutrophils # Seg Neutrophils # Man Lymphocytes # (Manual) Monocytes # (Manual) PT INR POC ABG pH POC ABG pCO2 POC ABG pO2 VBG pH Sodium Potassium Chloride Carbon Dioxide BUN Creatinine Glucose POC Glucose 252 H 225 H Hemoglobin A1c Lactic Acid Calcium Ionized Calcium Total Bilirubin AST ALT Alkaline Phosphatase C-Reactive Protein Total Protein Albumin Complement C3 Complement C4 01/24/18 01/24/18 01/24/18 03:40 06:06 11:36 WBC RBC Hgb Hct MCH RDW Plt Count Lymph % (Auto) [place] % (Auto) Lymph # [place] # Seg Neutrophils % Seg Neuts % (Manual) Lymphocytes % (Manual) Monocytes % (Manual) Nucleated RBC % Seg Neutrophils # Seg Neutrophils # Man Lymphocytes # (Manual) Monocytes # (Manual) PT INR POC ABG pH POC ABG pCO2 POC ABG pO2 VBG pH Sodium Potassium 5.7 H D Chloride 95.6 L Carbon Dioxide 20 L BUN 96 H Creatinine 4.2 H Glucose 166 H POC Glucose 162 H 160 H Hemoglobin A1c Lactic Acid Calcium 7.3 L Ionized Calcium Total Bilirubin AST 52 H ALT 235 H Alkaline Phosphatase C-Reactive Protein Total Protein 5.1 L Albumin 2.5 L Complement C3 Complement C4 01/24/18 01/24/18 01/25/18 15:08 17:32 00:04 WBC RBC Hgb Hct MCH RDW Plt Count Lymph % (Auto) [place] % (Auto) Lymph # [place] # Seg Neutrophils % Seg Neuts % (Manual) Lymphocytes % (Manual) Monocytes % (Manual) Nucleated RBC % Seg Neutrophils # Seg Neutrophils # Man Lymphocytes # (Manual) Monocytes # (Manual) PT INR POC ABG pH POC ABG pCO2 POC ABG pO2 VBG pH Sodium Potassium Chloride Carbon Dioxide BUN Creatinine Glucose POC Glucose 160 H 169 H Hemoglobin A1c Lactic Acid Calcium Ionized Calcium Total Bilirubin AST ALT Alkaline Phosphatase C-Reactive Protein 3.30 H Total Protein Albumin Complement C3 Complement C4 01/25/18 01/25/18 01/25/18 04:34 05:25 11:46 WBC RBC Hgb Hct MCH RDW Plt Count Lymph % (Auto) [place] % (Auto) Lymph # [place] # Seg Neutrophils % Seg Neuts % (Manual) Lymphocytes % (Manual) Monocytes % (Manual) Nucleated RBC % Seg Neutrophils # Seg Neutrophils # Man Lymphocytes # (Manual) Monocytes # (Manual) PT INR POC ABG pH 7.342 L POC ABG pCO2 48.7 H POC ABG pO2 VBG pH Sodium Potassium Chloride Carbon Dioxide BUN Creatinine Glucose POC Glucose 133 H 121 H Hemoglobin A1c Lactic Acid Calcium Ionized Calcium Total Bilirubin AST ALT Alkaline Phosphatase C-Reactive Protein Total Protein Albumin Complement C3 Complement C4 01/25/18 01/25/18 01/26/18 17:42 23:50 04:13 WBC RBC Hgb Hct MCH RDW Plt Count Lymph % (Auto) [place] % (Auto) Lymph # [place] # Seg Neutrophils % Seg Neuts % (Manual) Lymphocytes % (Manual) Monocytes % (Manual) Nucleated RBC % Seg Neutrophils # Seg Neutrophils # Man Lymphocytes # (Manual) Monocytes # (Manual) PT INR POC ABG pH POC ABG pCO2 POC ABG pO2 70 L VBG pH Sodium Potassium Chloride Carbon Dioxide BUN Creatinine Glucose POC Glucose 150 H 149 H Hemoglobin A1c Lactic Acid Calcium Ionized Calcium Total Bilirubin AST ALT Alkaline Phosphatase C-Reactive Protein Total Protein Albumin Complement C3 Complement C4 01/26/18 01/26/18 01/26/18 05:25 06:20 06:20 WBC 21.0 H RBC Hgb Hct MCH RDW Plt Count Lymph % (Auto) [place] % (Auto) Lymph # [place] # Seg Neutrophils % Seg Neuts % (Manual) 95.0 H Lymphocytes % (Manual) 1.0 L Monocytes % (Manual) Nucleated RBC % Seg Neutrophils # Seg Neutrophils # Man 20.0 H Lymphocytes # (Manual) 0.2 L Monocytes # (Manual) PT INR POC ABG pH POC ABG pCO2 POC ABG pO2 VBG pH Sodium Potassium 5.9 H Chloride 95.7 L Carbon Dioxide BUN 102 H Creatinine 4.6 H Glucose POC Glucose 107 H Hemoglobin A1c Lactic Acid Calcium 6.6 L Ionized Calcium Total Bilirubin AST ALT Alkaline Phosphatase C-Reactive Protein Total Protein Albumin Complement C3 Complement C4 01/26/18 01/26/18 01/27/18 12:19 18:09 00:17 WBC RBC Hgb Hct MCH RDW Plt Count Lymph % (Auto) [place] % (Auto) Lymph # [place] # Seg Neutrophils % Seg Neuts % (Manual) Lymphocytes % (Manual) Monocytes % (Manual) Nucleated RBC % Seg Neutrophils # Seg Neutrophils # Man Lymphocytes # (Manual) Monocytes # (Manual) PT INR POC ABG pH POC ABG pCO2 POC ABG pO2 VBG pH Sodium Potassium Chloride Carbon Dioxide BUN Creatinine Glucose POC Glucose 151 H 110 H 159 H Hemoglobin A1c Lactic Acid Calcium Ionized Calcium Total Bilirubin AST ALT Alkaline Phosphatase C-Reactive Protein Total Protein Albumin Complement C3 Complement C4 01/27/18 01/27/18 01/27/18 05:20 05:20 05:43 WBC 23.3 H RBC Hgb Hct MCH 27 L RDW Plt Count Lymph % (Auto) [place] % (Auto) Lymph # [place] # Seg Neutrophils % Seg Neuts % (Manual) 97.0 H Lymphocytes % (Manual) 0 L Monocytes % (Manual) Nucleated RBC % Seg Neutrophils # Seg Neutrophils # Man 22.6 H Lymphocytes # (Manual) 0.0 L Monocytes # (Manual) PT INR POC ABG pH POC ABG pCO2 POC ABG pO2 VBG pH Sodium Potassium 5.7 H Chloride 93.9 L Carbon Dioxide 21 L BUN 121 H Creatinine 5.2 H Glucose 131 H POC Glucose 121 H Hemoglobin A1c Lactic Acid Calcium 6.1 L Ionized Calcium Total Bilirubin AST ALT Alkaline Phosphatase C-Reactive Protein Total Protein Albumin Complement C3 Complement C4 01/27/18 01/27/18 01/28/18 12:16 17:32 00:05 WBC RBC Hgb Hct MCH RDW Plt Count Lymph % (Auto) [place] % (Auto) Lymph # [place] # Seg Neutrophils % Seg Neuts % (Manual) Lymphocytes % (Manual) Monocytes % (Manual) Nucleated RBC % Seg Neutrophils # Seg Neutrophils # Man Lymphocytes # (Manual) Monocytes # (Manual) PT INR POC ABG pH POC ABG pCO2 POC ABG pO2 VBG pH Sodium Potassium Chloride Carbon Dioxide BUN Creatinine Glucose POC Glucose 161 H 146 H 128 H Hemoglobin A1c Lactic Acid Calcium Ionized Calcium Total Bilirubin AST ALT Alkaline Phosphatase C-Reactive Protein Total Protein Albumin Complement C3 Complement C4 01/28/18 01/28/18 01/28/18 04:24 05:43 06:30 WBC 24.8 H RBC Hgb Hct MCH RDW Plt Count Lymph % (Auto) [place] % (Auto) Lymph # [place] # Seg Neutrophils % Seg Neuts % (Manual) 91.0 H Lymphocytes % (Manual) 4.0 L Monocytes % (Manual) Nucleated RBC % Seg Neutrophils # Seg Neutrophils # Man 22.6 H Lymphocytes # (Manual) 1.0 L Monocytes # (Manual) 1.0 H PT INR POC ABG pH POC ABG pCO2 POC ABG pO2 77 L VBG pH Sodium Potassium Chloride Carbon Dioxide BUN Creatinine Glucose POC Glucose 137 H Hemoglobin A1c Lactic Acid Calcium Ionized Calcium Total Bilirubin AST ALT Alkaline Phosphatase C-Reactive Protein Total Protein Albumin Complement C3 Complement C4 01/28/18 01/28/18 01/28/18 06:30 11:30 18:08 WBC RBC Hgb Hct MCH RDW Plt Count Lymph % (Auto) [place] % (Auto) Lymph # [place] # Seg Neutrophils % Seg Neuts % (Manual) Lymphocytes % (Manual) Monocytes % (Manual) Nucleated RBC % Seg Neutrophils # Seg Neutrophils # Man Lymphocytes # (Manual) Monocytes # (Manual) PT INR POC ABG pH POC ABG pCO2 POC ABG pO2 VBG pH Sodium Potassium Chloride 95.2 L Carbon Dioxide BUN 70 H Creatinine 3.7 H Glucose 135 H POC Glucose 183 H 129 H Hemoglobin A1c Lactic Acid Calcium 6.4 L Ionized Calcium Total Bilirubin AST ALT Alkaline Phosphatase C-Reactive Protein Total Protein Albumin Complement C3 Complement C4 01/29/18 01/29/18 01/29/18 00:00 05:50 06:00 WBC 15.8 H RBC 3.37 L Hgb 9.1 L Hct 28.6 L MCH 27 L RDW Plt Count Lymph % (Auto) [place] % (Auto) Lymph # [place] # Seg Neutrophils % Seg Neuts % (Manual) 87.0 H Lymphocytes % (Manual) 7.0 L Monocytes % (Manual) Nucleated RBC % Seg Neutrophils # Seg Neutrophils # Man 13.7 H Lymphocytes # (Manual) 1.1 L Monocytes # (Manual) PT INR POC ABG pH POC ABG pCO2 POC ABG pO2 VBG pH Sodium Potassium Chloride Carbon Dioxide BUN Creatinine Glucose POC Glucose 111 H 120 H Hemoglobin A1c Lactic Acid Calcium Ionized Calcium Total Bilirubin AST ALT Alkaline Phosphatase C-Reactive Protein Total Protein Albumin Complement C3 Complement C4 01/29/18 01/29/18 01/29/18 06:00 06:00 12:29 WBC RBC Hgb Hct MCH RDW Plt Count Lymph % (Auto) [place] % (Auto) Lymph # [place] # Seg Neutrophils % Seg Neuts % (Manual) Lymphocytes % (Manual) Monocytes % (Manual) Nucleated RBC % Seg Neutrophils # Seg Neutrophils # Man Lymphocytes # (Manual) Monocytes # (Manual) PT INR POC ABG pH POC ABG pCO2 POC ABG pO2 VBG pH Sodium 136 L Potassium Chloride 95.4 L Carbon Dioxide BUN 94 H Creatinine 4.2 H Glucose 120 H POC Glucose 134 H Hemoglobin A1c Lactic Acid Calcium 6.5 L Ionized Calcium 3.9 L Total Bilirubin AST ALT Alkaline Phosphatase C-Reactive Protein Total Protein 4.5 L Albumin 2.0 L Complement C3 Complement C4 01/29/18 01/30/18 01/30/18 18:32 00:12 04:47 WBC RBC Hgb Hct MCH RDW Plt Count Lymph % (Auto) [place] % (Auto) Lymph # [place] # Seg Neutrophils % Seg Neuts % (Manual) Lymphocytes % (Manual) Monocytes % (Manual) Nucleated RBC % Seg Neutrophils # Seg Neutrophils # Man Lymphocytes # (Manual) Monocytes # (Manual) PT INR POC ABG pH 7.456 H POC ABG pCO2 POC ABG pO2 VBG pH Sodium Potassium Chloride Carbon Dioxide BUN Creatinine Glucose POC Glucose 158 H 155 H Hemoglobin A1c Lactic Acid Calcium Ionized Calcium Total Bilirubin AST ALT Alkaline Phosphatase C-Reactive Protein Total Protein Albumin Complement C3 Complement C4 01/30/18 01/30/18 01/30/18 12:06 17:46 Unknown WBC 12.8 H RBC 3.09 L Hgb 8.4 L Hct 26.2 L MCH 27 L RDW Plt Count Lymph % (Auto) [place] % (Auto) Lymph # [place] # Seg Neutrophils % Seg Neuts % (Manual) 95.0 H Lymphocytes % (Manual) 1.0 L Monocytes % (Manual) Nucleated RBC % Seg Neutrophils # Seg Neutrophils # Man 12.2 H Lymphocytes # (Manual) 0.1 L Monocytes # (Manual) PT INR POC ABG pH POC ABG pCO2 POC ABG pO2 VBG pH Sodium Potassium Chloride Carbon Dioxide BUN Creatinine Glucose POC Glucose 117 H 166 H Hemoglobin A1c Lactic Acid Calcium Ionized Calcium Total Bilirubin AST ALT Alkaline Phosphatase C-Reactive Protein Total Protein Albumin Complement C3 Complement C4 01/30/18 01/31/18 01/31/18 Unknown 00:04 04:50 WBC 13.6 H RBC 3.53 L Hgb 9.8 L Hct 30.0 L MCH RDW 15.4 H Plt Count Lymph % (Auto) 3.6 L [place] % (Auto) 8.7 H Lymph # 0.5 L [place] # 1.2 H Seg Neutrophils % 87.1 H Seg Neuts % (Manual) Lymphocytes % (Manual) Monocytes % (Manual) Nucleated RBC % Seg Neutrophils # 11.8 H Seg Neutrophils # Man Lymphocytes # (Manual) Monocytes # (Manual) PT INR POC ABG pH POC ABG pCO2 POC ABG pO2 VBG pH Sodium Potassium Chloride Carbon Dioxide BUN 52 H Creatinine 2.9 H Glucose 105 H POC Glucose 155 H Hemoglobin A1c Lactic Acid Calcium 6.7 L Ionized Calcium Total Bilirubin AST ALT Alkaline Phosphatase C-Reactive Protein Total Protein Albumin Complement C3 Complement C4 01/31/18 01/31/18 01/31/18 04:50 17:08 23:38 WBC RBC Hgb Hct MCH RDW Plt Count Lymph % (Auto) [place] % (Auto) Lymph # [place] # Seg Neutrophils % Seg Neuts % (Manual) Lymphocytes % (Manual) Monocytes % (Manual) Nucleated RBC % Seg Neutrophils # Seg Neutrophils # Man Lymphocytes # (Manual) Monocytes # (Manual) PT INR POC ABG pH POC ABG pCO2 POC ABG pO2 VBG pH Sodium Potassium Chloride Carbon Dioxide BUN 70 H Creatinine 3.3 H Glucose 102 H POC Glucose 106 H 136 H Hemoglobin A1c Lactic Acid Calcium 7.1 L Ionized Calcium Total Bilirubin AST ALT Alkaline Phosphatase C-Reactive Protein Total Protein Albumin Complement C3 Complement C4 02/01/18 02/01/18 02/01/18 04:00 04:00 05:25 WBC RBC 3.16 L Hgb 8.7 L Hct 27.5 L MCH RDW Plt Count Lymph % (Auto) 6.4 L [place] % (Auto) 10.2 H Lymph # 0.7 L [place] # 1.1 H Seg Neutrophils % 81.7 H Seg Neuts % (Manual) Lymphocytes % (Manual) Monocytes % (Manual) Nucleated RBC % Seg Neutrophils # 8.6 H Seg Neutrophils # Man Lymphocytes # (Manual) Monocytes # (Manual) PT INR POC ABG pH POC ABG pCO2 POC ABG pO2 VBG pH Sodium Potassium 3.4 L Chloride Carbon Dioxide 31 H BUN 42 H Creatinine 2.2 H Glucose 101 H POC Glucose 163 H Hemoglobin A1c Lactic Acid Calcium 7.1 L Ionized Calcium Total Bilirubin AST ALT Alkaline Phosphatase C-Reactive Protein Total Protein Albumin Complement C3 Complement C4 Allied health notes reviewed: nursing
[2018-02-01] MEDS: SODIUM CHLORIDE FLUSH SYRINGE 10 ML IV SCH ×2 (11:54→21:12)
--- NOTE | 2018-02-01 12:44 | Progress Note ---
Assessment and Plan Assessment and plan: Acute hypercapnic respiratory failure -Likely from drug abuse and aspiration -VAP bundle -on vent support -Lung protective strategies, ARDS-net protocol Left Pneumothorax -s/p chest tube with immediate decompression of pleural space and reexpansion of the lung -Follow up serial chest x-ray Severe Sepsis with septic shock likely from aspiration pneumonia-POA -Shock resolved -abx on hold per ID -Leukocytosis is improving -Left lobar infiltrate on admission -?pelvic abscess -IR consulted for evaluation for possible drainage and cx Penicillin allergy DM uncontrolled -Continue insulin therapy Shock required pressors -Resolved -likely from sepsis vs cardiogenic -off pressors but required 3 pressors on admission Bilateral upper and lower extremity ischemia/necrosis Etiology secondary to sepsis and previous pressors. Vascular follow up. Decompensated acute CHF - EF 30-35% on echo - cardiology following History of pacemaker insertion in 2008 post PCI History of CAD s/p PCI in 2008 [place] Etiology likely due to ATN from severe sepsis - monitor renal function, now on HD - HD per renal service. Patient currently dialyzing via a femoral Vas-Cath. Vascular surgery to place access next week - Avoid nephrotoxins, nephrology consulted History of cocaine and methamphetamine abuse Acute encephalopathy - Multifactorial, likely from drug abuse vs severe sepsis versus anoxic encephalopathy - CT head no acute finding - Pacemaker precludes getting MRI brain Ischemic hepatitis Elevated LFTs, etiology secondary to shock liver syndrome - Likely from severe hypotension causing shock liver - Continue to monitor Coagulopathy Etiology due to severe sepsis and abnormal liver function Thrombocytopenia Etiology likely secondary to sepsis - [place] Disposition: Continue ICU monitoring, very poor prognosis. The high probability of a clinically significant, sudden or life threatening deterioration of the [multiorgan] system(s) required my full and direct attention, intervention and personal management. The aggregate critical care time was [33] minutes. This time is in addition to time spent performing reported procedures but includes the following: [x] Data Review and interpretation [x] Patient assessment and monitoring of vital signs [x] Documentation [x] Medication orders and management History Interval history: 62-year-old admitted with hx of htn, polysubstance drug abuse per family, admitted after she was found unresponsive found in the bathroom of a friends home, noted with severe lactic acidosis, hypotensive on vasopressors, hypercapenic respiratory failure requiring intubation . Hospitalist Physical - Constitutional Vitals: Temp Pulse Resp BP Pulse Ox 98.9 F 87 23 128/63 98 02/01/18 12:00 02/01/18 12:16 02/01/18 12:16 02/01/18 12:16 02/01/18 12:16 General appearance: Present: other (intubated) - EENT Eyes: Present: PERRL, EOM intact ENT: hearing intact, clear oral mucosa, dentition normal - Neck Neck: Present: supple, normal ROM - Respiratory Respiratory effort: normal Respiratory: bilateral: CTA - Cardiovascular Rhythm: regular Heart Sounds: Present: S1 & S2. Absent: gallop, rub - Extremities Extremities: no ischemia, No edema, Full ROM - Abdominal General gastrointestinal: soft, non-tender, non-distended, normal bowel sounds - Integumentary Integumentary: Present: clear, warm, dry - Neurologic Neurologic: CNII-XII intact, moves all extremities Results - Labs CBC & Chem 7: 02/01/18 04:00 02/01/18 04:00 Labs: Laboratory Last Values WBC 10.5 K/mm3 (4.5-11.0) 02/01/18 04:00 RBC 3.16 M/mm3 (3.65-5.03) L 02/01/18 04:00 Hgb 8.7 gm/dl (10.1-14.3) L 02/01/18 04:00 Hct 27.5 % (30.3-42.9) L 02/01/18 04:00 MCV 87 fl (79-97) 02/01/18 04:00 MCH 28 pg (28-32) 02/01/18 04:00 MCHC 32 % (30-34) 02/01/18 04:00 RDW 15.2 % (13.2-15.2) 02/01/18 04:00 Plt Count 257 K/mm3 (140-440) 02/01/18 04:00 Lymph % (Auto) 6.4 % (13.4-35.0) L 02/01/18 04:00 [place] % (Auto) 10.2 % (0.0-7.3) H 02/01/18 04:00 Eos % (Auto) 1.3 % (0.0-4.3) 02/01/18 04:00 Baso % (Auto) 0.4 % (0.0-1.8) 02/01/18 04:00 Lymph # 0.7 K/mm3 (1.2-5.4) L 02/01/18 04:00 [place] # 1.1 K/mm3 (0.0-0.8) H 02/01/18 04:00 Eos # 0.1 K/mm3 (0.0-0.4) 02/01/18 04:00 Baso # 0.0 K/mm3 (0.0-0.1) 02/01/18 04:00 Add Manual Diff Complete 01/30/18 Unknown Total Counted 100 01/30/18 Unknown Seg Neutrophils % 81.7 % (40.0-70.0) H 02/01/18 04:00 Seg Neuts % (Manual) 95.0 % (40.0-70.0) H 01/30/18 Unknown Band Neutrophils % 2.0 % 01/30/18 Unknown Lymphocytes % (Manual) 1.0 % (13.4-35.0) L 01/30/18 Unknown Reactive Lymphs % (Man) 0 % 01/30/18 Unknown Monocytes % (Manual) 2.0 % (0.0-7.3) 01/30/18 Unknown Eosinophils % (Manual) 0 % (0.0-4.3) 01/30/18 Unknown Basophils % (Manual) 0 % (0.0-1.8) 01/30/18 Unknown Metamyelocytes % 0 % 01/30/18 Unknown Myelocytes % 0 % 01/30/18 Unknown Promyelocytes % 0 % 01/30/18 Unknown Blast Cells % 0 % 01/30/18 Unknown Nucleated RBC % Not Reportable 01/30/18 Unknown Seg Neutrophils # 8.6 K/mm3 (1.8-7.7) H 02/01/18 04:00 Seg Neutrophils # Man 12.2 K/mm3 (1.8-7.7) H 01/30/18 Unknown Band Neutrophils # 0.3 K/mm3 01/30/18 Unknown Lymphocytes # (Manual) 0.1 K/mm3 (1.2-5.4) L 01/30/18 Unknown Abs React Lymphs (Man) 0.0 K/mm3 01/30/18 Unknown Monocytes # (Manual) 0.3 K/mm3 (0.0-0.8) 01/30/18 Unknown Eosinophils # (Manual) 0.0 K/mm3 (0.0-0.4) 01/30/18 Unknown Basophils # (Manual) 0.0 K/mm3 (0.0-0.1) 01/30/18 Unknown Metamyelocytes # 0.0 K/mm3 01/30/18 Unknown Myelocytes # 0.0 K/mm3 01/30/18 Unknown Promyelocytes # 0.0 K/mm3 01/30/18 Unknown Blast Cells # 0.0 K/mm3 01/30/18 Unknown WBC Morphology Not Reportable 01/30/18 Unknown Hypersegmented Neuts Not Reportable 01/30/18 Unknown Hyposegmented Neuts Not Reportable 01/30/18 Unknown Hypogranular Neuts Not Reportable 01/30/18 Unknown Smudge Cells Not Reportable 01/30/18 Unknown Toxic Granulation Not Reportable 01/30/18 Unknown Toxic Vacuolation Not Reportable 01/30/18 Unknown Dohle Bodies Not Reportable 01/30/18 Unknown Pelger-Huet Anomaly Not Reportable 01/30/18 Unknown [place] Rods Not Reportable 01/30/18 Unknown Platelet Estimate Consistent w auto 01/30/18 Unknown Clumped Platelets Not Reportable 01/30/18 Unknown Plt Clumps, EDTA Not Reportable 01/30/18 Unknown Large Platelets Not Reportable 01/30/18 Unknown Giant Platelets Not Reportable 01/30/18 Unknown Platelet Satelliting Not Reportable 01/30/18 Unknown Plt Morphology Comment Not Reportable 01/30/18 Unknown RBC Morphology Not Reportable 01/30/18 Unknown Dimorphic RBCs Not Reportable 01/30/18 Unknown Polychromasia Not Reportable 01/30/18 Unknown Hypochromasia 1+ 01/30/18 Unknown Poikilocytosis Not Reportable 01/30/18 Unknown Anisocytosis Not Reportable 01/30/18 Unknown Microcytosis Few 01/30/18 Unknown Macrocytosis Not Reportable 01/30/18 Unknown Spherocytes Not Reportable 01/30/18 Unknown Pappenheimer Bodies Not Reportable 01/30/18 Unknown Sickle Cells Not Reportable 01/30/18 Unknown Target Cells Not Reportable 01/30/18 Unknown Tear Drop Cells Not Reportable 01/30/18 Unknown Ovalocytes Not Reportable 01/30/18 Unknown Stomatocytes Few 01/30/18 Unknown Helmet Cells Not Reportable 01/30/18 Unknown [place] Bodies Not Reportable 01/30/18 Unknown [place] Rings Not Reportable 01/30/18 Unknown [place] Cells Not Reportable 01/30/18 Unknown Bite Cells Not Reportable 01/30/18 Unknown Crenated Cell Not Reportable 01/30/18 Unknown Elliptocytes Not Reportable 01/30/18 Unknown Acanthocytes (Spur) Not Reportable 01/30/18 Unknown Rouleaux Not Reportable 01/30/18 Unknown Hemoglobin C Crystals Not Reportable 01/30/18 Unknown Schistocytes Not Reportable 01/30/18 Unknown Malaria parasites Not Reportable 01/30/18 Unknown Brock Bodies Not Reportable 01/30/18 Unknown Hem Pathologist Commnt No 01/30/18 Unknown PT 17.5 Sec. (12.2-14.9) H 01/20/18 07:00 INR 1.35 (0.87-1.13) H 01/20/18 07:00 Heparin Anti-Xa, Unfract Negative (Negative) 01/20/18 11:03 POC ABG pH 7.456 (7.35-7.45) H 01/30/18 04:47 POC ABG pCO2 36.5 (35-45) 01/30/18 04:47 POC ABG pO2 82 (80-105) 01/30/18 04:47 POC ABG HCO3 25.7 01/30/18 04:47 POC ABG Total CO2 27 01/30/18 04:47 POC ABG O2 Sat 97 01/30/18 04:47 POC ABG Base Excess 2 01/30/18 04:47 VBG pH 7.273 (7.320-7.420) L 01/17/18 16:54 FiO2 30 % 01/30/18 04:47 Sodium 142 mmol/L (137-145) 02/01/18 04:00 Potassium 3.4 mmol/L (3.6-5.0) L 02/01/18 04:00 Chloride 99.8 mmol/L (98-107) 02/01/18 04:00 Carbon Dioxide 31 mmol/L (22-30) H 02/01/18 04:00 Anion Gap 15 mmol/L 02/01/18 04:00 BUN 42 mg/dL (7-17) H 02/01/18 04:00 Creatinine 2.2 mg/dL (0.7-1.2) H 02/01/18 04:00 Estimated GFR 23 ml/min 02/01/18 04:00 BUN/Creatinine Ratio 19 % 02/01/18 04:00 Glucose 101 mg/dL (65-100) H 02/01/18 04:00 POC Glucose 123 (70-105) H 02/01/18 11:54 Hemoglobin A1c 9.0 % (4-6) H 01/17/18 22:36 Lactic Acid 1.40 mmol/L (0.7-2.0) 01/24/18 15:08 Calcium 7.1 mg/dL (8.4-10.2) L 02/01/18 04:00 Ionized Calcium 3.9 mg/dL (4.8-5.6) L 01/29/18 06:00 Magnesium 1.80 mg/dL (1.7-2.3) 01/29/18 06:00 Total Bilirubin 0.50 mg/dL (0.1-1.2) 01/29/18 06:00 AST 21 units/L (5-40) 01/29/18 06:00 ALT 53 units/L (7-56) 01/29/18 06:00 Alkaline Phosphatase 88 units/L (35-129) 01/29/18 06:00 C-Reactive Protein 3.30 mg/dL (0.00-1.30) H 01/24/18 15:08 Total Protein 4.5 g/dL (6.3-8.2) L 01/29/18 06:00 Albumin 2.0 g/dL (3.9-5) L 01/29/18 06:00 Albumin/Globulin Ratio 0.8 % 01/29/18 06:00 Serotonin Release Assay See scanned report 01/20/18 11:03 Random Vancomycin 19.8 ug/mL (0-40.0) 01/27/18 05:20 ALISA Screen Negative (Negative) 01/20/18 Unknown Heparin-induced Plt Ab Negative (Negative) 01/20/18 11:03 UF Heparin High Dose 0 % Release 01/20/18 11:03 NEGRITA UFH Low Dose 0.1 0 % Release 01/20/18 11:03 NEGRITA UFH Low Dose 0.5 0 % Release 01/20/18 11:03 Complement C3 47 mg/dL (83-193) L 01/20/18 Unknown Complement C4 9 mg/dL (15-57) L 01/20/18 Unknown Hepatitis A IgM Ab Non-reactive (NonReactive) 01/20/18 07:00 Hep Bs Antigen Non-reactive (Negative) 01/20/18 07:00 Hep B Core IgM Ab Non-reactive (NonReactive) 01/20/18 07:00 Hepatitis C Antibody Non-reactive (NonReactive) 01/20/18 07:00 HIV 1&2 Antibody Rapid Non react (Non React) 01/20/18 Unknown HIV P24 Antigen Non react (Non React) 01/20/18 Unknown
--- NOTE | 2018-02-01 14:00 | Progress Note ---
Assessment and Plan Impression: * Acute kidney injury secondary to ATN - on hemodialysis * Acute respiratory failure * Spontaneous left pneumothorax s/p chest tube insertion * Sepsis * Pleural effusion * Cardiomyopathy * Anemia * Polysubstance abuse * Type II DM * Ischemic, necrotic digits of hands/feet * Pelvic mass Plan: * Patient had hemodialysis yesterday * Monitor for recovery - UOP seems to be improving * Her femoral Vas-Cath has been removed . If patient needs to continue dialysis , she will require an IJ access on Saturday * Consultants' recommendations noted * Abx per ID * Strict i/os * Avoid nephrotoxins * Daily lytes Subjective Date of service: 02/01/18 Principal diagnosis: Acute hypoxic respiratory failure, severe sepsis with shock , encephalopathy Interval history: Patient remains on the ventilator. Currently on 30% FiO2. Unresponsive. Her femoral Vas-Cath has been removed. Objective - Vital Signs Vital signs: Vital Signs - 12hr 02/01/18 02/01/18 02/01/18 02:00 02:15 02:31 Temperature Pulse Rate 84 85 83 Respiratory 16 17 16 Rate Blood Pressure 108/58 108/58 108/58 O2 Sat by Pulse 99 99 99 Oximetry 02/01/18 02/01/18 02/01/18 02:45 03:00 03:15 Temperature Pulse Rate 90 86 99 H Respiratory 20 18 24 Rate Blood Pressure 108/58 98/55 98/55 O2 Sat by Pulse 99 100 97 Oximetry 02/01/18 02/01/18 02/01/18 03:30 03:31 03:45 Temperature 98.3 F Pulse Rate 86 97 H 90 Respiratory 17 14 16 Rate Blood Pressure 98/52 98/55 98/55 O2 Sat by Pulse 100 93 100 Oximetry 02/01/18 02/01/18 02/01/18 04:00 04:15 04:31 Temperature Pulse Rate 88 90 78 Respiratory 15 19 15 Rate Blood Pressure 98/52 98/52 98/52 O2 Sat by Pulse 100 100 100 Oximetry 02/01/18 02/01/18 02/01/18 04:45 05:01 05:15 Temperature Pulse Rate 85 84 94 H Respiratory 17 16 22 Rate Blood Pressure 98/52 98/52 98/52 O2 Sat by Pulse 99 99 100 Oximetry 02/01/18 02/01/18 02/01/18 05:23 05:31 05:45 Temperature Pulse Rate 94 H 86 85 Respiratory 17 17 17 Rate Blood Pressure 118/60 118/60 O2 Sat by Pulse 100 100 Oximetry 02/01/18 02/01/18 02/01/18 06:00 06:15 06:31 Temperature Pulse Rate 84 84 97 H Respiratory 16 18 17 Rate Blood Pressure 94/56 94/56 94/56 O2 Sat by Pulse 100 100 98 Oximetry 02/01/18 02/01/18 02/01/18 06:45 07:00 07:15 Temperature Pulse Rate 85 88 91 H Respiratory 16 18 19 Rate Blood Pressure 94/56 110/59 110/59 O2 Sat by Pulse Oximetry 02/01/18 02/01/18 02/01/18 07:30 07:46 08:00 Temperature 99.0 F Pulse Rate 89 87 102 H Respiratory 19 17 20 Rate Blood Pressure 110/59 110/59 O2 Sat by Pulse Oximetry 02/01/18 02/01/18 02/01/18 08:16 08:30 08:31 Temperature Pulse Rate 102 H 91 H 90 Respiratory 14 24 24 Rate Blood Pressure 110/59 110/59 110/59 O2 Sat by Pulse Oximetry 02/01/18 02/01/18 02/01/18 08:46 09:00 09:16 Temperature Pulse Rate 86 87 87 Respiratory 23 23 25 H Rate Blood Pressure 110/59 110/59 110/59 O2 Sat by Pulse Oximetry 02/01/18 02/01/18 02/01/18 09:30 09:46 10:00 Temperature Pulse Rate 87 89 85 Respiratory 24 21 25 H Rate Blood Pressure 110/59 110/59 105/56 O2 Sat by Pulse 100 Oximetry 02/01/18 02/01/18 02/01/18 10:16 10:30 10:46 Temperature Pulse Rate 82 82 83 Respiratory 24 22 23 Rate Blood Pressure 105/56 105/56 105/56 O2 Sat by Pulse 99 100 100 Oximetry 02/01/18 02/01/18 02/01/18 11:00 11:16 11:30 Temperature Pulse Rate 81 90 81 Respiratory 22 24 22 Rate Blood Pressure 101/52 101/52 101/52 O2 Sat by Pulse 100 99 100 Oximetry 02/01/18 02/01/18 02/01/18 11:46 12:00 12:16 Temperature 98.9 F Pulse Rate 86 86 87 Respiratory 25 H 23 23 Rate Blood Pressure 101/52 128/63 128/63 O2 Sat by Pulse 100 95 98 Oximetry 02/01/18 02/01/18 12:30 12:46 Temperature Pulse Rate 85 88 Respiratory 21 23 Rate Blood Pressure 128/63 128/63 O2 Sat by Pulse 98 98 Oximetry - General Appearance General appearance: well-developed, well-nourished, appears stated age EENT: PERRL, mucous membranes moist Neck: no JVD, no thyromegaly, no carotid bruit, supple Respiratory: Present: Ronchi, Other (left chest tube in place ) Gastrointestinal: normal, normoactive bowel sounds Integumentary: other (trace edema ) - Lab 02/01/18 04:00 02/01/18 04:00 Most recent lab results Calcium 7.1 mg/dL (8.4-10.2) L 02/01/18 04:00 Magnesium 1.80 mg/dL (1.7-2.3) 01/29/18 06:00
[2018-02-01] MEDS: DILAUDID IV PRN (21:10)
[2018-02-02] MEDS: HumaLOG SUB-Q SCH ×4 (01:29→17:47)
[2018-02-02] MEDS: DUONEB *Not for PRN Use IH SCH ×4 (02:30→20:08)
[2018-02-02] MEDS: DILAUDID IV PRN ×2 (05:05→18:11)
[2018-02-02] MEDS: HEPARIN SUB-Q SCH ×3 (05:05→21:32)
[2018-02-02 05:36] LABS: Calcium 7.1 mg/dL (8.4-10.2)
[2018-02-02] MEDS: SODIUM CHLORIDE FLUSH SYRINGE 10 ML IV SCH ×2 (11:03→21:32)
[2018-02-02] MEDS: PEPCID PO SCH (11:04)
--- NOTE | 2018-02-02 11:06 | Progress Note ---
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 - VAP bundle addressed - continue daily SATs - HD/UF per nephrology for toxin and volume clearance - continue steroid taper - continue stress ulcer prophylaxis - continue supplemental oxygen to wean for oxygen saturations >90% - continue other care per attending/other consultants ....remains critically ill on MVS and at high risk for further deterioration including Subjective Date of service: 02/02/18 Principal diagnosis: Acute hypoxic respiratory failure, severe sepsis with shock , encephalopathy Interval history: Patient seen today for: Acute hypoxic respiratory failure, Left PTX, sepsis, aspiration pneumonia Seen and examined at bedside; 24-hour events reviewed; nursing and respiratory care staff consulted; no adverse overnight events reported to me; Tolerating PSV today, however requires PS 12 to generate spontaneous tidal volumes of 350 Sleeping but rousable Vitals, labs, medications, chart reviewed. Objective - Exam Narrative Exam: General appearance: sedated on the vent Not in any distress, no dyssynchrony Eyes: anicteric sclerae, moist conjunctivae; no lid-lag; PERRLA HENT: Atraumatic; oropharynx clear +ETT +NGT Neck: Trachea midline; supple, no thyromegaly or lymphadenopathy Lungs: juan rhonchi, left sided chest tube CV: tachy Abdomen: Soft, non-tender; distended Extremities: No peripheral edema or extremity lymphadenopathy Skin: . +bilateral hands, multiple fingers and sole and toes necrotic changes. Multiple skin tears and ecchymoses Psych: sedated Neuro: sedated Lines:right IJ TLC Vital Signs - 12hr 02/01/18 02/01/18 02/01/18 23:16 23:30 23:46 Temperature Pulse Rate 91 H 92 H 85 Pulse Rate [ Bilateral Throughout] Pulse Rate [ From Monitor] Respiratory 22 22 20 Rate Respiratory Rate [Bilateral Throughout] Blood Pressure 113/53 113/53 113/53 O2 Sat by Pulse 100 99 100 Oximetry 02/02/18 02/02/18 02/02/18 00:00 00:16 00:21 Temperature 99.9 F H Pulse Rate 83 90 86 Pulse Rate [ Bilateral Throughout] Pulse Rate [ 83 From Monitor] Respiratory 19 20 Rate Respiratory Rate [Bilateral Throughout] Blood Pressure 93/50 113/53 93/50 O2 Sat by Pulse 100 99 99 Oximetry 02/02/18 02/02/18 02/02/18 00:30 00:46 01:00 Temperature Pulse Rate 84 82 88 Pulse Rate [ Bilateral Throughout] Pulse Rate [ From Monitor] Respiratory 21 21 19 Rate Respiratory Rate [Bilateral Throughout] Blood Pressure 113/53 93/50 93/50 O2 Sat by Pulse 100 100 100 Oximetry 02/02/18 02/02/18 02/02/18 01:16 01:30 01:46 Temperature Pulse Rate 83 86 84 Pulse Rate [ Bilateral Throughout] Pulse Rate [ From Monitor] Respiratory 18 16 16 Rate Respiratory Rate [Bilateral Throughout] Blood Pressure 109/62 109/62 109/62 O2 Sat by Pulse 100 100 100 Oximetry 02/02/18 02/02/18 02/02/18 02:00 02:16 02:30 Temperature Pulse Rate 87 90 89 Pulse Rate [ 93 H Bilateral Throughout] Pulse Rate [ From Monitor] Respiratory 18 18 14 Rate Respiratory 19 Rate [Bilateral Throughout] Blood Pressure 115/57 115/57 115/57 O2 Sat by Pulse 99 99 100 Oximetry 02/02/18 02/02/18 02/02/18 02:36 02:46 03:00 Temperature Pulse Rate 91 H 87 Pulse Rate [ 88 Bilateral Throughout] Pulse Rate [ From Monitor] Respiratory 20 17 Rate Respiratory 15 Rate [Bilateral Throughout] Blood Pressure 115/57 103/55 O2 Sat by Pulse 100 99 Oximetry 02/02/18 02/02/18 02/02/18 03:16 03:30 03:46 Temperature Pulse Rate 90 87 83 Pulse Rate [ Bilateral Throughout] Pulse Rate [ From Monitor] Respiratory 16 20 16 Rate Respiratory Rate [Bilateral Throughout] Blood Pressure 103/55 115/57 103/55 O2 Sat by Pulse 100 99 100 Oximetry 02/02/18 02/02/18 02/02/18 04:00 04:15 04:30 Temperature 99.6 F Pulse Rate 82 93 H 98 H Pulse Rate [ Bilateral Throughout] Pulse Rate [ 85 From Monitor] Respiratory 15 14 22 Rate Respiratory Rate [Bilateral Throughout] Blood Pressure 96/50 96/50 96/50 O2 Sat by Pulse 99 Oximetry 02/02/18 02/02/18 02/02/18 04:35 04:45 05:01 Temperature Pulse Rate 90 95 H 89 Pulse Rate [ Bilateral Throughout] Pulse Rate [ From Monitor] Respiratory 28 H 18 Rate Respiratory Rate [Bilateral Throughout] Blood Pressure 96/50 96/50 96/50 O2 Sat by Pulse 99 87 Oximetry 02/02/18 02/02/18 02/02/18 05:15 05:31 05:45 Temperature Pulse Rate 84 83 86 Pulse Rate [ Bilateral Throughout] Pulse Rate [ From Monitor] Respiratory 16 15 17 Rate Respiratory Rate [Bilateral Throughout] Blood Pressure 140/72 140/72 140/72 O2 Sat by Pulse 99 100 100 Oximetry 02/02/18 02/02/18 02/02/18 06:00 06:15 06:31 Temperature Pulse Rate 86 85 87 Pulse Rate [ Bilateral Throughout] Pulse Rate [ From Monitor] Respiratory 19 15 14 Rate Respiratory Rate [Bilateral Throughout] Blood Pressure 129/67 129/67 129/67 O2 Sat by Pulse 100 100 100 Oximetry 02/02/18 02/02/18 02/02/18 06:45 07:00 07:15 Temperature Pulse Rate 86 85 83 Pulse Rate [ Bilateral Throughout] Pulse Rate [ From Monitor] Respiratory 18 16 15 Rate Respiratory Rate [Bilateral Throughout] Blood Pressure 129/67 104/56 104/56 O2 Sat by Pulse 100 100 100 Oximetry 02/02/18 02/02/18 02/02/18 07:31 07:45 08:00 Temperature 97.9 F Pulse Rate 83 84 79 Pulse Rate [ Bilateral Throughout] Pulse Rate [ 81 From Monitor] Respiratory 15 16 10 L Rate Respiratory Rate [Bilateral Throughout] Blood Pressure 104/56 104/56 116/56 O2 Sat by Pulse 100 100 100 Oximetry 02/02/18 02/02/18 02/02/18 08:15 08:31 08:38 Temperature Pulse Rate 80 80 81 Pulse Rate [ Bilateral Throughout] Pulse Rate [ From Monitor] Respiratory 14 15 22 Rate Respiratory Rate [Bilateral Throughout] Blood Pressure 116/56 116/56 116/56 O2 Sat by Pulse 100 100 100 Oximetry 02/02/18 02/02/18 02/02/18 08:42 08:45 08:50 Temperature Pulse Rate 81 Pulse Rate [ 80 81 Bilateral Throughout] Pulse Rate [ From Monitor] Respiratory 19 Rate Respiratory 22 21 Rate [Bilateral Throughout] Blood Pressure 116/56 O2 Sat by Pulse 100 Oximetry 02/02/18 09:00 Temperature Pulse Rate 79 Pulse Rate [ Bilateral Throughout] Pulse Rate [ From Monitor] Respiratory 19 Rate Respiratory Rate [Bilateral Throughout] Blood Pressure 114/60 O2 Sat by Pulse 99 Oximetry Constitutional: no acute distress Eyes: non-icteric ENT: oropharynx moist, other (ETT 20 cm MARGOT and advanced to 23cm MARGOT) Neck: supple, no lymphadenopathy, no JVD Effort: mildly labored Ascultation: Bilateral: diminished breath sounds, rales Percussion: Bilateral: not dull Cardiovascular: regular rate and rhythm, other (no rubs or murmurs) Gastrointestinal: normoactive bowel sounds, soft, non-tender, non-distended, other (no [place] HSM) Integumentary: normal Extremities: no cyanosis, no edema, pink and warm, pulses normal Neurologic: pupils equal and round Psychiatric: other (calm) CBC and BMP: 02/01/18 04:00 02/03/18 04:45 ABG, PT/INR, D-dimer: ABG POC ABG pH 7.456 (7.35-7.45) H 01/30/18 04:47 POC ABG pCO2 36.5 (35-45) 01/30/18 04:47 POC ABG pO2 82 (80-105) 01/30/18 04:47 POC ABG HCO3 25.7 01/30/18 04:47 POC ABG Total CO2 27 01/30/18 04:47 POC ABG O2 Sat 97 01/30/18 04:47 PT/INR, D-dimer PT 17.5 Sec. (12.2-14.9) H 01/20/18 07:00 INR 1.35 (0.87-1.13) H 01/20/18 07:00 Abnormal lab findings: Abnormal Labs 01/17/18 01/17/18 01/17/18 15:25 16:15 16:48 WBC RBC Hgb Hct MCH RDW Plt Count Lymph % (Auto) [place] % (Auto) Lymph # Dent # Seg Neutrophils % Seg Neuts % (Manual) Lymphocytes % (Manual) Monocytes % (Manual) Nucleated RBC % Seg Neutrophils # Seg Neutrophils # Man Lymphocytes # (Manual) Monocytes # (Manual) PT INR POC ABG pH 7.099 L POC ABG pCO2 58.9 H POC ABG pO2 149 H VBG pH Sodium Potassium Chloride Carbon Dioxide BUN Creatinine Glucose POC Glucose < 40 L 121 H Hemoglobin A1c Lactic Acid Calcium Ionized Calcium Total Bilirubin AST ALT Alkaline Phosphatase C-Reactive Protein Total Protein Albumin Complement C3 Complement C4 01/17/18 01/17/18 01/17/18 16:54 16:54 16:54 WBC RBC Hgb Hct MCH RDW Plt Count Lymph % (Auto) [place] % (Auto) Lymph # [place] # Seg Neutrophils % Seg Neuts % (Manual) 72.0 H Lymphocytes % (Manual) 3.0 L Monocytes % (Manual) Nucleated RBC % Seg Neutrophils # Seg Neutrophils # Man Lymphocytes # (Manual) 0.2 L Monocytes # (Manual) PT 18.5 H INR 1.45 H POC ABG pH POC ABG pCO2 POC ABG pO2 VBG pH Sodium 136 L Potassium Chloride 97.8 L Carbon Dioxide 16 L BUN 43 H Creatinine 3.3 H Glucose 121 H POC Glucose Hemoglobin A1c Lactic Acid Calcium 6.7 L Ionized Calcium Total Bilirubin AST ALT Alkaline Phosphatase C-Reactive Protein Total Protein 4.4 L Albumin 2.3 L Complement C3 Complement C4 01/17/18 01/17/18 01/17/18 16:54 16:54 17:11 WBC RBC Hgb Hct MCH RDW Plt Count Lymph % (Auto) [place] % (Auto) Lymph # [place] # Seg Neutrophils % Seg Neuts % (Manual) Lymphocytes % (Manual) Monocytes % (Manual) Nucleated RBC % Seg Neutrophils # Seg Neutrophils # Man Lymphocytes # (Manual) Monocytes # (Manual) PT INR POC ABG pH POC ABG pCO2 POC ABG pO2 VBG pH 7.273 L Sodium Potassium Chloride Carbon Dioxide BUN Creatinine Glucose POC Glucose Hemoglobin A1c Lactic Acid 4.70 H* 4.30 H* Calcium Ionized Calcium Total Bilirubin AST ALT Alkaline Phosphatase C-Reactive Protein Total Protein Albumin Complement C3 Complement C4 01/17/18 01/17/18 01/17/18 18:02 18:15 19:21 WBC RBC Hgb Hct MCH RDW Plt Count Lymph % (Auto) [place] % (Auto) Lymph # [place] # Seg Neutrophils % Seg Neuts % (Manual) Lymphocytes % (Manual) Monocytes % (Manual) Nucleated RBC % Seg Neutrophils # Seg Neutrophils # Man Lymphocytes # (Manual) Monocytes # (Manual) PT INR POC ABG pH 7.177 L POC ABG pCO2 POC ABG pO2 VBG pH Sodium Potassium Chloride Carbon Dioxide BUN Creatinine Glucose POC Glucose < 40 L Hemoglobin A1c Lactic Acid 3.00 H* Calcium Ionized Calcium Total Bilirubin AST ALT Alkaline Phosphatase C-Reactive Protein Total Protein Albumin Complement C3 Complement C4 01/17/18 01/17/18 01/17/18 22:36 22:36 23:16 WBC RBC Hgb Hct MCH RDW Plt Count Lymph % (Auto) [place] % (Auto) Lymph # [place] # Seg Neutrophils % Seg Neuts % (Manual) Lymphocytes % (Manual) Monocytes % (Manual) Nucleated RBC % Seg Neutrophils # Seg Neutrophils # Man Lymphocytes # (Manual) Monocytes # (Manual) PT INR POC ABG pH 7.112 L POC ABG pCO2 50.1 H POC ABG pO2 50 L VBG pH Sodium Potassium Chloride Carbon Dioxide BUN Creatinine Glucose POC Glucose Hemoglobin A1c 9.0 H Lactic Acid 5.50 H* Calcium Ionized Calcium Total Bilirubin AST ALT Alkaline Phosphatase C-Reactive Protein Total Protein Albumin Complement C3 Complement C4 01/18/18 01/18/18 01/18/18 01:26 03:21 03:21 WBC RBC Hgb Hct MCH RDW Plt Count Lymph % (Auto) [place] % (Auto) Lymph # [place] # Seg Neutrophils % Seg Neuts % (Manual) 27.0 L Lymphocytes % (Manual) 3.0 L Monocytes % (Manual) 14.0 H Nucleated RBC % Seg Neutrophils # Seg Neutrophils # Man Lymphocytes # (Manual) 0.3 L Monocytes # (Manual) 1.4 H PT INR POC ABG pH POC ABG pCO2 POC ABG pO2 VBG pH Sodium Potassium Chloride Carbon Dioxide BUN Creatinine Glucose POC Glucose 107 H Hemoglobin A1c Lactic Acid 8.00 H* Calcium Ionized Calcium Total Bilirubin AST ALT Alkaline Phosphatase C-Reactive Protein Total Protein Albumin Complement C3 Complement C4 01/18/18 01/18/18 01/18/18 03:21 04:40 05:07 WBC RBC Hgb Hct MCH RDW Plt Count Lymph % (Auto) [place] % (Auto) Lymph # [place] # Seg Neutrophils % Seg Neuts % (Manual) Lymphocytes % (Manual) Monocytes % (Manual) Nucleated RBC % Seg Neutrophils # Seg Neutrophils # Man Lymphocytes # (Manual) Monocytes # (Manual) PT INR POC ABG pH 7.093 L POC ABG pCO2 31.5 L POC ABG pO2 77 L VBG pH Sodium Potassium Chloride 96.9 L Carbon Dioxide 14 L BUN 47 H Creatinine 3.4 H Glucose POC Glucose Hemoglobin A1c Lactic Acid 11.10 H* Calcium 6.4 L Ionized Calcium Total Bilirubin AST 47 H ALT Alkaline Phosphatase C-Reactive Protein Total Protein 4.3 L Albumin 2.4 L Complement C3 Complement C4 01/18/18 01/18/18 01/18/18 06:29 07:06 11:44 WBC RBC Hgb Hct MCH RDW Plt Count Lymph % (Auto) [place] % (Auto) Lymph # [place] # Seg Neutrophils % Seg Neuts % (Manual) Lymphocytes % (Manual) Monocytes % (Manual) Nucleated RBC % Seg Neutrophils # Seg Neutrophils # Man Lymphocytes # (Manual) Monocytes # (Manual) PT INR POC ABG pH POC ABG pCO2 POC ABG pO2 VBG pH Sodium Potassium Chloride Carbon Dioxide BUN Creatinine Glucose POC Glucose 47 L 149 H < 40 L Hemoglobin A1c Lactic Acid Calcium Ionized Calcium Total Bilirubin AST ALT Alkaline Phosphatase C-Reactive Protein Total Protein Albumin Complement C3 Complement C4 01/18/18 01/18/18 01/18/18 11:46 14:15 18:01 WBC RBC Hgb Hct MCH RDW Plt Count Lymph % (Auto) [place] % (Auto) Lymph # [place] # Seg Neutrophils % Seg Neuts % (Manual) Lymphocytes % (Manual) Monocytes % (Manual) Nucleated RBC % Seg Neutrophils # Seg Neutrophils # Man Lymphocytes # (Manual) Monocytes # (Manual) PT INR POC ABG pH POC ABG pCO2 POC ABG pO2 VBG pH Sodium Potassium Chloride Carbon Dioxide BUN Creatinine Glucose POC Glucose 116 H < 40 L Hemoglobin A1c Lactic Acid 10.00 H* Calcium Ionized Calcium Total Bilirubin AST ALT Alkaline Phosphatase C-Reactive Protein Total Protein Albumin Complement C3 Complement C4 01/18/18 01/18/18 01/18/18 18:02 23:25 23:27 WBC RBC Hgb Hct MCH RDW Plt Count Lymph % (Auto) [place] % (Auto) Lymph # [place] # Seg Neutrophils % Seg Neuts % (Manual) Lymphocytes % (Manual) Monocytes % (Manual) Nucleated RBC % Seg Neutrophils # Seg Neutrophils # Man Lymphocytes # (Manual) Monocytes # (Manual) PT INR POC ABG pH POC ABG pCO2 POC ABG pO2 VBG pH Sodium Potassium Chloride Carbon Dioxide BUN Creatinine Glucose POC Glucose 136 H < 40 L < 40 L Hemoglobin A1c Lactic Acid Calcium Ionized Calcium Total Bilirubin AST ALT Alkaline Phosphatase C-Reactive Protein Total Protein Albumin Complement C3 Complement C4 01/19/18 01/19/18 01/19/18 04:02 06:50 06:50 WBC 18.5 H RBC Hgb Hct MCH RDW Plt Count 136 L Lymph % (Auto) [place] % (Auto) Lymph # [place] # Seg Neutrophils % Seg Neuts % (Manual) 86.0 H Lymphocytes % (Manual) 4.0 L Monocytes % (Manual) Nucleated RBC % Seg Neutrophils # Seg Neutrophils # Man 15.9 H Lymphocytes # (Manual) 0.7 L Monocytes # (Manual) 1.1 H PT 21.3 H INR 1.73 H POC ABG pH POC ABG pCO2 28.3 L POC ABG pO2 57 L VBG pH Sodium Potassium Chloride Carbon Dioxide BUN Creatinine Glucose POC Glucose Hemoglobin A1c Lactic Acid Calcium Ionized Calcium Total Bilirubin AST ALT Alkaline Phosphatase C-Reactive Protein Total Protein Albumin Complement C3 Complement C4 01/19/18 01/19/18 01/19/18 06:50 08:45 11:17 WBC RBC Hgb Hct MCH RDW Plt Count Lymph % (Auto) [place] % (Auto) Lymph # [place] # Seg Neutrophils % Seg Neuts % (Manual) Lymphocytes % (Manual) Monocytes % (Manual) Nucleated RBC % Seg Neutrophils # Seg Neutrophils # Man Lymphocytes # (Manual) Monocytes # (Manual) PT INR POC ABG pH POC ABG pCO2 POC ABG pO2 VBG pH Sodium 135 L Potassium Chloride 92.8 L Carbon Dioxide 19 L BUN 31 H Creatinine 2.6 H Glucose POC Glucose 110 H Hemoglobin A1c Lactic Acid 7.90 H* Calcium 7.1 L Ionized Calcium Total Bilirubin 1.60 H AST 2526 H ALT 1187 H Alkaline Phosphatase 133 H C-Reactive Protein Total Protein 4.8 L Albumin 2.0 L Complement C3 Complement C4 01/19/18 01/19/18 01/19/18 11:31 22:12 23:34 WBC RBC Hgb Hct MCH RDW Plt Count Lymph % (Auto) [place] % (Auto) Lymph # [place] # Seg Neutrophils % Seg Neuts % (Manual) Lymphocytes % (Manual) Monocytes % (Manual) Nucleated RBC % Seg Neutrophils # Seg Neutrophils # Man Lymphocytes # (Manual) Monocytes # (Manual) PT INR POC ABG pH POC ABG pCO2 31.6 L POC ABG pO2 59 L VBG pH Sodium Potassium Chloride Carbon Dioxide BUN Creatinine Glucose POC Glucose 131 H 53 L Hemoglobin A1c Lactic Acid Calcium Ionized Calcium Total Bilirubin AST ALT Alkaline Phosphatase C-Reactive Protein Total Protein Albumin Complement C3 Complement C4 01/20/18 01/20/18 01/20/18 05:18 05:18 05:19 WBC 19.7 H RBC Hgb Hct MCH 27 L RDW Plt Count 84 L Lymph % (Auto) [place] % (Auto) Lymph # [place] # Seg Neutrophils % Seg Neuts % (Manual) 84.0 H Lymphocytes % (Manual) 2.0 L Monocytes % (Manual) 8.0 H Nucleated RBC % Seg Neutrophils # Seg Neutrophils # Man 16.5 H Lymphocytes # (Manual) 0.4 L Monocytes # (Manual) 1.6 H PT INR POC ABG pH POC ABG pCO2 POC ABG pO2 VBG pH Sodium 136 L Potassium Chloride 96.9 L Carbon Dioxide 17 L BUN 65 H Creatinine 4.1 H D Glucose 104 H POC Glucose 125 H Hemoglobin A1c Lactic Acid Calcium 7.1 L Ionized Calcium Total Bilirubin 1.60 H AST 1702 H ALT 1141 H Alkaline Phosphatase 172 H C-Reactive Protein Total Protein 5.0 L Albumin 1.7 L Complement C3 Complement C4 01/20/18 01/20/18 01/20/18 07:00 11:48 13:54 WBC RBC Hgb Hct MCH RDW Plt Count Lymph % (Auto) [place] % (Auto) Lymph # [place] # Seg Neutrophils % Seg Neuts % (Manual) Lymphocytes % (Manual) Monocytes % (Manual) Nucleated RBC % Seg Neutrophils # Seg Neutrophils # Man Lymphocytes # (Manual) Monocytes # (Manual) PT 17.5 H INR 1.35 H POC ABG pH POC ABG pCO2 POC ABG pO2 VBG pH Sodium Potassium Chloride Carbon Dioxide BUN Creatinine Glucose POC Glucose 109 H Hemoglobin A1c Lactic Acid Calcium Ionized Calcium Total Bilirubin AST ALT Alkaline Phosphatase C-Reactive Protein 37.50 H Total Protein Albumin Complement C3 Complement C4 01/20/18 01/20/18 01/20/18 17:28 17:51 20:50 WBC RBC Hgb Hct MCH RDW Plt Count Lymph % (Auto) [place] % (Auto) Lymph # [place] # Seg Neutrophils % Seg Neuts % (Manual) Lymphocytes % (Manual) Monocytes % (Manual) Nucleated RBC % Seg Neutrophils # Seg Neutrophils # Man Lymphocytes # (Manual) Monocytes # (Manual) PT INR POC ABG pH POC ABG pCO2 POC ABG pO2 VBG pH Sodium Potassium Chloride Carbon Dioxide BUN Creatinine Glucose POC Glucose 140 H Hemoglobin A1c Lactic Acid 2.70 H* 2.30 H* Calcium Ionized Calcium Total Bilirubin AST ALT Alkaline Phosphatase C-Reactive Protein Total Protein Albumin Complement C3 Complement C4 01/20/18 01/20/18 01/20/18 23:55 Unknown Unknown WBC RBC Hgb Hct MCH RDW Plt Count Lymph % (Auto) [place] % (Auto) Lymph # [place] # Seg Neutrophils % Seg Neuts % (Manual) Lymphocytes % (Manual) Monocytes % (Manual) Nucleated RBC % Seg Neutrophils # Seg Neutrophils # Man Lymphocytes # (Manual) Monocytes # (Manual) PT INR POC ABG pH POC ABG pCO2 POC ABG pO2 VBG pH Sodium Potassium Chloride Carbon Dioxide BUN Creatinine Glucose POC Glucose 149 H Hemoglobin A1c Lactic Acid 2.50 H* Calcium Ionized Calcium Total Bilirubin AST ALT Alkaline Phosphatase C-Reactive Protein Total Protein Albumin Complement C3 47 L Complement C4 01/20/18 01/21/18 01/21/18 Unknown 00:12 04:27 WBC RBC Hgb Hct MCH RDW Plt Count Lymph % (Auto) [place] % (Auto) Lymph # [place] # Seg Neutrophils % Seg Neuts % (Manual) Lymphocytes % (Manual) Monocytes % (Manual) Nucleated RBC % Seg Neutrophils # Seg Neutrophils # Man Lymphocytes # (Manual) Monocytes # (Manual) PT INR POC ABG pH POC ABG pCO2 33.8 L POC ABG pO2 72 L VBG pH Sodium Potassium Chloride Carbon Dioxide BUN Creatinine Glucose POC Glucose 134 H Hemoglobin A1c Lactic Acid Calcium Ionized Calcium Total Bilirubin AST ALT Alkaline Phosphatase C-Reactive Protein Total Protein Albumin Complement C3 Complement C4 9 L 01/21/18 01/21/18 01/21/18 05:00 05:00 05:00 WBC 21.7 H RBC Hgb Hct MCH 27 L RDW Plt Count 67 L Lymph % (Auto) [place] % (Auto) Lymph # [place] # Seg Neutrophils % Seg Neuts % (Manual) 71.0 H Lymphocytes % (Manual) 9.0 L Monocytes % (Manual) Nucleated RBC % 4.0 H Seg Neutrophils # Seg Neutrophils # Man 15.4 H Lymphocytes # (Manual) Monocytes # (Manual) PT INR POC ABG pH POC ABG pCO2 POC ABG pO2 VBG pH Sodium Potassium Chloride Carbon Dioxide 21 L BUN 71 H Creatinine 4.1 H Glucose 149 H POC Glucose Hemoglobin A1c Lactic Acid 2.10 H* Calcium 7.5 L Ionized Calcium Total Bilirubin AST 494 H ALT 780 H Alkaline Phosphatase 151 H C-Reactive Protein Total Protein 4.9 L Albumin 1.9 L Complement C3 Complement C4 01/21/18 01/21/18 01/21/18 05:18 12:20 18:07 WBC RBC Hgb Hct MCH RDW Plt Count Lymph % (Auto) [place] % (Auto) Lymph # [place] # Seg Neutrophils % Seg Neuts % (Manual) Lymphocytes % (Manual) Monocytes % (Manual) Nucleated RBC % Seg Neutrophils # Seg Neutrophils # Man Lymphocytes # (Manual) Monocytes # (Manual) PT INR POC ABG pH POC ABG pCO2 POC ABG pO2 VBG pH Sodium Potassium Chloride Carbon Dioxide BUN Creatinine Glucose POC Glucose 132 H 158 H 143 H Hemoglobin A1c Lactic Acid Calcium Ionized Calcium Total Bilirubin AST ALT Alkaline Phosphatase C-Reactive Protein Total Protein Albumin Complement C3 Complement C4 01/21/18 01/22/18 01/22/18 23:40 03:48 04:10 WBC 24.9 H RBC Hgb Hct MCH 27 L RDW Plt Count 80 L Lymph % (Auto) [place] % (Auto) Lymph # [place] # Seg Neutrophils % Seg Neuts % (Manual) Lymphocytes % (Manual) Monocytes % (Manual) Nucleated RBC % Seg Neutrophils # Seg Neutrophils # Man Lymphocytes # (Manual) Monocytes # (Manual) PT INR POC ABG pH POC ABG pCO2 POC ABG pO2 65 L VBG pH Sodium Potassium Chloride Carbon Dioxide BUN Creatinine Glucose POC Glucose 136 H Hemoglobin A1c Lactic Acid Calcium Ionized Calcium Total Bilirubin AST ALT Alkaline Phosphatase C-Reactive Protein Total Protein Albumin Complement C3 Complement C4 01/22/18 01/22/18 01/22/18 04:10 05:56 11:30 WBC RBC Hgb Hct MCH RDW Plt Count Lymph % (Auto) [place] % (Auto) Lymph # [place] # Seg Neutrophils % Seg Neuts % (Manual) Lymphocytes % (Manual) Monocytes % (Manual) Nucleated RBC % Seg Neutrophils # Seg Neutrophils # Man Lymphocytes # (Manual) Monocytes # (Manual) PT INR POC ABG pH POC ABG pCO2 POC ABG pO2 VBG pH Sodium Potassium Chloride 97.7 L Carbon Dioxide BUN 72 H Creatinine 3.6 H Glucose 145 H POC Glucose 139 H 156 H Hemoglobin A1c Lactic Acid Calcium 7.3 L Ionized Calcium Total Bilirubin AST 146 H ALT 547 H Alkaline Phosphatase C-Reactive Protein Total Protein 5.2 L Albumin 2.3 L Complement C3 Complement C4 01/22/18 01/23/18 01/23/18 17:41 00:00 04:39 WBC RBC Hgb Hct MCH RDW Plt Count Lymph % (Auto) [place] % (Auto) Lymph # [place] # Seg Neutrophils % Seg Neuts % (Manual) Lymphocytes % (Manual) Monocytes % (Manual) Nucleated RBC % Seg Neutrophils # Seg Neutrophils # Man Lymphocytes # (Manual) Monocytes # (Manual) PT INR POC ABG pH POC ABG pCO2 31.9 L POC ABG pO2 62 L VBG pH Sodium Potassium Chloride Carbon Dioxide BUN Creatinine Glucose POC Glucose 185 H 150 H Hemoglobin A1c Lactic Acid Calcium Ionized Calcium Total Bilirubin AST ALT Alkaline Phosphatase C-Reactive Protein Total Protein Albumin Complement C3 Complement C4 01/23/18 01/23/18 01/23/18 05:24 11:38 14:20 WBC RBC Hgb Hct MCH RDW Plt Count Lymph % (Auto) [place] % (Auto) Lymph # [place] # Seg Neutrophils % Seg Neuts % (Manual) Lymphocytes % (Manual) Monocytes % (Manual) Nucleated RBC % Seg Neutrophils # Seg Neutrophils # Man Lymphocytes # (Manual) Monocytes # (Manual) PT INR POC ABG pH POC ABG pCO2 31.4 L POC ABG pO2 55 L VBG pH Sodium Potassium Chloride Carbon Dioxide BUN Creatinine Glucose POC Glucose 215 H 182 H Hemoglobin A1c Lactic Acid Calcium Ionized Calcium Total Bilirubin AST ALT Alkaline Phosphatase C-Reactive Protein Total Protein Albumin Complement C3 Complement C4 01/23/18 01/24/18 01/24/18 17:26 00:10 03:40 WBC 34.5 H RBC Hgb Hct MCH 27 L RDW Plt Count 130 L Lymph % (Auto) [place] % (Auto) Lymph # [place] # Seg Neutrophils % Seg Neuts % (Manual) Lymphocytes % (Manual) Monocytes % (Manual) Nucleated RBC % Seg Neutrophils # Seg Neutrophils # Man Lymphocytes # (Manual) Monocytes # (Manual) PT INR POC ABG pH POC ABG pCO2 POC ABG pO2 VBG pH Sodium Potassium Chloride Carbon Dioxide BUN Creatinine Glucose POC Glucose 252 H 225 H Hemoglobin A1c Lactic Acid Calcium Ionized Calcium Total Bilirubin AST ALT Alkaline Phosphatase C-Reactive Protein Total Protein Albumin Complement C3 Complement C4 01/24/18 01/24/18 01/24/18 03:40 06:06 11:36 WBC RBC Hgb Hct MCH RDW Plt Count Lymph % (Auto) [place] % (Auto) Lymph # [place] # Seg Neutrophils % Seg Neuts % (Manual) Lymphocytes % (Manual) Monocytes % (Manual) Nucleated RBC % Seg Neutrophils # Seg Neutrophils # Man Lymphocytes # (Manual) Monocytes # (Manual) PT INR POC ABG pH POC ABG pCO2 POC ABG pO2 VBG pH Sodium Potassium 5.7 H D Chloride 95.6 L Carbon Dioxide 20 L BUN 96 H Creatinine 4.2 H Glucose 166 H POC Glucose 162 H 160 H Hemoglobin A1c Lactic Acid Calcium 7.3 L Ionized Calcium Total Bilirubin AST 52 H ALT 235 H Alkaline Phosphatase C-Reactive Protein Total Protein 5.1 L Albumin 2.5 L Complement C3 Complement C4 01/24/18 01/24/18 01/25/18 15:08 17:32 00:04 WBC RBC Hgb Hct MCH RDW Plt Count Lymph % (Auto) [place] % (Auto) Lymph # [place] # Seg Neutrophils % Seg Neuts % (Manual) Lymphocytes % (Manual) Monocytes % (Manual) Nucleated RBC % Seg Neutrophils # Seg Neutrophils # Man Lymphocytes # (Manual) Monocytes # (Manual) PT INR POC ABG pH POC ABG pCO2 POC ABG pO2 VBG pH Sodium Potassium Chloride Carbon Dioxide BUN Creatinine Glucose POC Glucose 160 H 169 H Hemoglobin A1c Lactic Acid Calcium Ionized Calcium Total Bilirubin AST ALT Alkaline Phosphatase C-Reactive Protein 3.30 H Total Protein Albumin Complement C3 Complement C4 01/25/18 01/25/18 01/25/18 04:34 05:25 11:46 WBC RBC Hgb Hct MCH RDW Plt Count Lymph % (Auto) [place] % (Auto) Lymph # [place] # Seg Neutrophils % Seg Neuts % (Manual) Lymphocytes % (Manual) Monocytes % (Manual) Nucleated RBC % Seg Neutrophils # Seg Neutrophils # Man Lymphocytes # (Manual) Monocytes # (Manual) PT INR POC ABG pH 7.342 L POC ABG pCO2 48.7 H POC ABG pO2 VBG pH Sodium Potassium Chloride Carbon Dioxide BUN Creatinine Glucose POC Glucose 133 H 121 H Hemoglobin A1c Lactic Acid Calcium Ionized Calcium Total Bilirubin AST ALT Alkaline Phosphatase C-Reactive Protein Total Protein Albumin Complement C3 Complement C4 01/25/18 01/25/18 01/26/18 17:42 23:50 04:13 WBC RBC Hgb Hct MCH RDW Plt Count Lymph % (Auto) [place] % (Auto) Lymph # [place] # Seg Neutrophils % Seg Neuts % (Manual) Lymphocytes % (Manual) Monocytes % (Manual) Nucleated RBC % Seg Neutrophils # Seg Neutrophils # Man Lymphocytes # (Manual) Monocytes # (Manual) PT INR POC ABG pH POC ABG pCO2 POC ABG pO2 70 L VBG pH Sodium Potassium Chloride Carbon Dioxide BUN Creatinine Glucose POC Glucose 150 H 149 H Hemoglobin A1c Lactic Acid Calcium Ionized Calcium Total Bilirubin AST ALT Alkaline Phosphatase C-Reactive Protein Total Protein Albumin Complement C3 Complement C4 01/26/18 01/26/18 01/26/18 05:25 06:20 06:20 WBC 21.0 H RBC Hgb Hct MCH RDW Plt Count Lymph % (Auto) [place] % (Auto) Lymph # [place] # Seg Neutrophils % Seg Neuts % (Manual) 95.0 H Lymphocytes % (Manual) 1.0 L Monocytes % (Manual) Nucleated RBC % Seg Neutrophils # Seg Neutrophils # Man 20.0 H Lymphocytes # (Manual) 0.2 L Monocytes # (Manual) PT INR POC ABG pH POC ABG pCO2 POC ABG pO2 VBG pH Sodium Potassium 5.9 H Chloride 95.7 L Carbon Dioxide BUN 102 H Creatinine 4.6 H Glucose POC Glucose 107 H Hemoglobin A1c Lactic Acid Calcium 6.6 L Ionized Calcium Total Bilirubin AST ALT Alkaline Phosphatase C-Reactive Protein Total Protein Albumin Complement C3 Complement C4 01/26/18 01/26/18 01/27/18 12:19 18:09 00:17 WBC RBC Hgb Hct MCH RDW Plt Count Lymph % (Auto) [place] % (Auto) Lymph # [place] # Seg Neutrophils % Seg Neuts % (Manual) Lymphocytes % (Manual) Monocytes % (Manual) Nucleated RBC % Seg Neutrophils # Seg Neutrophils # Man Lymphocytes # (Manual) Monocytes # (Manual) PT INR POC ABG pH POC ABG pCO2 POC ABG pO2 VBG pH Sodium Potassium Chloride Carbon Dioxide BUN Creatinine Glucose POC Glucose 151 H 110 H 159 H Hemoglobin A1c Lactic Acid Calcium Ionized Calcium Total Bilirubin AST ALT Alkaline Phosphatase C-Reactive Protein Total Protein Albumin Complement C3 Complement C4 01/27/18 01/27/18 01/27/18 05:20 05:20 05:43 WBC 23.3 H RBC Hgb Hct MCH 27 L RDW Plt Count Lymph % (Auto) [place] % (Auto) Lymph # [place] # Seg Neutrophils % Seg Neuts % (Manual) 97.0 H Lymphocytes % (Manual) 0 L Monocytes % (Manual) Nucleated RBC % Seg Neutrophils # Seg Neutrophils # Man 22.6 H Lymphocytes # (Manual) 0.0 L Monocytes # (Manual) PT INR POC ABG pH POC ABG pCO2 POC ABG pO2 VBG pH Sodium Potassium 5.7 H Chloride 93.9 L Carbon Dioxide 21 L BUN 121 H Creatinine 5.2 H Glucose 131 H POC Glucose 121 H Hemoglobin A1c Lactic Acid Calcium 6.1 L Ionized Calcium Total Bilirubin AST ALT Alkaline Phosphatase C-Reactive Protein Total Protein Albumin Complement C3 Complement C4 01/27/18 01/27/18 01/28/18 12:16 17:32 00:05 WBC RBC Hgb Hct MCH RDW Plt Count Lymph % (Auto) [place] % (Auto) Lymph # [place] # Seg Neutrophils % Seg Neuts % (Manual) Lymphocytes % (Manual) Monocytes % (Manual) Nucleated RBC % Seg Neutrophils # Seg Neutrophils # Man Lymphocytes # (Manual) Monocytes # (Manual) PT INR POC ABG pH POC ABG pCO2 POC ABG pO2 VBG pH Sodium Potassium Chloride Carbon Dioxide BUN Creatinine Glucose POC Glucose 161 H 146 H 128 H Hemoglobin A1c Lactic Acid Calcium Ionized Calcium Total Bilirubin AST ALT Alkaline Phosphatase C-Reactive Protein Total Protein Albumin Complement C3 Complement C4 01/28/18 01/28/18 01/28/18 04:24 05:43 06:30 WBC 24.8 H RBC Hgb Hct MCH RDW Plt Count Lymph % (Auto) [place] % (Auto) Lymph # [place] # Seg Neutrophils % Seg Neuts % (Manual) 91.0 H Lymphocytes % (Manual) 4.0 L Monocytes % (Manual) Nucleated RBC % Seg Neutrophils # Seg Neutrophils # Man 22.6 H Lymphocytes # (Manual) 1.0 L Monocytes # (Manual) 1.0 H PT INR POC ABG pH POC ABG pCO2 POC ABG pO2 77 L VBG pH Sodium Potassium Chloride Carbon Dioxide BUN Creatinine Glucose POC Glucose 137 H Hemoglobin A1c Lactic Acid Calcium Ionized Calcium Total Bilirubin AST ALT Alkaline Phosphatase C-Reactive Protein Total Protein Albumin Complement C3 Complement C4 01/28/18 01/28/18 01/28/18 06:30 11:30 18:08 WBC RBC Hgb Hct MCH RDW Plt Count Lymph % (Auto) [place] % (Auto) Lymph # [place] # Seg Neutrophils % Seg Neuts % (Manual) Lymphocytes % (Manual) Monocytes % (Manual) Nucleated RBC % Seg Neutrophils # Seg Neutrophils # Man Lymphocytes # (Manual) Monocytes # (Manual) PT INR POC ABG pH POC ABG pCO2 POC ABG pO2 VBG pH Sodium Potassium Chloride 95.2 L Carbon Dioxide BUN 70 H Creatinine 3.7 H Glucose 135 H POC Glucose 183 H 129 H Hemoglobin A1c Lactic Acid Calcium 6.4 L Ionized Calcium Total Bilirubin AST ALT Alkaline Phosphatase C-Reactive Protein Total Protein Albumin Complement C3 Complement C4 01/29/18 01/29/18 01/29/18 00:00 05:50 06:00 WBC 15.8 H RBC 3.37 L Hgb 9.1 L Hct 28.6 L MCH 27 L RDW Plt Count Lymph % (Auto) [place] % (Auto) Lymph # [place] # Seg Neutrophils % Seg Neuts % (Manual) 87.0 H Lymphocytes % (Manual) 7.0 L Monocytes % (Manual) Nucleated RBC % Seg Neutrophils # Seg Neutrophils # Man 13.7 H Lymphocytes # (Manual) 1.1 L Monocytes # (Manual) PT INR POC ABG pH POC ABG pCO2 POC ABG pO2 VBG pH Sodium Potassium Chloride Carbon Dioxide BUN Creatinine Glucose POC Glucose 111 H 120 H Hemoglobin A1c Lactic Acid Calcium Ionized Calcium Total Bilirubin AST ALT Alkaline Phosphatase C-Reactive Protein Total Protein Albumin Complement C3 Complement C4 01/29/18 01/29/18 01/29/18 06:00 06:00 12:29 WBC RBC Hgb Hct MCH RDW Plt Count Lymph % (Auto) [place] % (Auto) Lymph # [place] # Seg Neutrophils % Seg Neuts % (Manual) Lymphocytes % (Manual) Monocytes % (Manual) Nucleated RBC % Seg Neutrophils # Seg Neutrophils # Man Lymphocytes # (Manual) Monocytes # (Manual) PT INR POC ABG pH POC ABG pCO2 POC ABG pO2 VBG pH Sodium 136 L Potassium Chloride 95.4 L Carbon Dioxide BUN 94 H Creatinine 4.2 H Glucose 120 H POC Glucose 134 H Hemoglobin A1c Lactic Acid Calcium 6.5 L Ionized Calcium 3.9 L Total Bilirubin AST ALT Alkaline Phosphatase C-Reactive Protein Total Protein 4.5 L Albumin 2.0 L Complement C3 Complement C4 01/29/18 01/30/18 01/30/18 18:32 00:12 04:47 WBC RBC Hgb Hct MCH RDW Plt Count Lymph % (Auto) [place] % (Auto) Lymph # [place] # Seg Neutrophils % Seg Neuts % (Manual) Lymphocytes % (Manual) Monocytes % (Manual) Nucleated RBC % Seg Neutrophils # Seg Neutrophils # Man Lymphocytes # (Manual) Monocytes # (Manual) PT INR POC ABG pH 7.456 H POC ABG pCO2 POC ABG pO2 VBG pH Sodium Potassium Chloride Carbon Dioxide BUN Creatinine Glucose POC Glucose 158 H 155 H Hemoglobin A1c Lactic Acid Calcium Ionized Calcium Total Bilirubin AST ALT Alkaline Phosphatase C-Reactive Protein Total Protein Albumin Complement C3 Complement C4 01/30/18 01/30/18 01/30/18 12:06 17:46 Unknown WBC 12.8 H RBC 3.09 L Hgb 8.4 L Hct 26.2 L MCH 27 L RDW Plt Count Lymph % (Auto) [place] % (Auto) Lymph # [place] # Seg Neutrophils % Seg Neuts % (Manual) 95.0 H Lymphocytes % (Manual) 1.0 L Monocytes % (Manual) Nucleated RBC % Seg Neutrophils # Seg Neutrophils # Man 12.2 H Lymphocytes # (Manual) 0.1 L Monocytes # (Manual) PT INR POC ABG pH POC ABG pCO2 POC ABG pO2 VBG pH Sodium Potassium Chloride Carbon Dioxide BUN Creatinine Glucose POC Glucose 117 H 166 H Hemoglobin A1c Lactic Acid Calcium Ionized Calcium Total Bilirubin AST ALT Alkaline Phosphatase C-Reactive Protein Total Protein Albumin Complement C3 Complement C4 01/30/18 01/31/18 01/31/18 Unknown 00:04 04:50 WBC 13.6 H RBC 3.53 L Hgb 9.8 L Hct 30.0 L MCH RDW 15.4 H Plt Count Lymph % (Auto) 3.6 L [place] % (Auto) 8.7 H Lymph # 0.5 L [place] # 1.2 H Seg Neutrophils % 87.1 H Seg Neuts % (Manual) Lymphocytes % (Manual) Monocytes % (Manual) Nucleated RBC % Seg Neutrophils # 11.8 H Seg Neutrophils # Man Lymphocytes # (Manual) Monocytes # (Manual) PT INR POC ABG pH POC ABG pCO2 POC ABG pO2 VBG pH Sodium Potassium Chloride Carbon Dioxide BUN 52 H Creatinine 2.9 H Glucose 105 H POC Glucose 155 H Hemoglobin A1c Lactic Acid Calcium 6.7 L Ionized Calcium Total Bilirubin AST ALT Alkaline Phosphatase C-Reactive Protein Total Protein Albumin Complement C3 Complement C4 01/31/18 01/31/18 01/31/18 04:50 17:08 23:38 WBC RBC Hgb Hct MCH RDW Plt Count Lymph % (Auto) [place] % (Auto) Lymph # [place] # Seg Neutrophils % Seg Neuts % (Manual) Lymphocytes % (Manual) Monocytes % (Manual) Nucleated RBC % Seg Neutrophils # Seg Neutrophils # Man Lymphocytes # (Manual) Monocytes # (Manual) PT INR POC ABG pH POC ABG pCO2 POC ABG pO2 VBG pH Sodium Potassium Chloride Carbon Dioxide BUN 70 H Creatinine 3.3 H Glucose 102 H POC Glucose 106 H 136 H Hemoglobin A1c Lactic Acid Calcium 7.1 L Ionized Calcium Total Bilirubin AST ALT Alkaline Phosphatase C-Reactive Protein Total Protein Albumin Complement C3 Complement C4 02/01/18 02/01/18 02/01/18 04:00 04:00 05:25 WBC RBC 3.16 L Hgb 8.7 L Hct 27.5 L MCH RDW Plt Count Lymph % (Auto) 6.4 L [place] % (Auto) 10.2 H Lymph # 0.7 L [place] # 1.1 H Seg Neutrophils % 81.7 H Seg Neuts % (Manual) Lymphocytes % (Manual) Monocytes % (Manual) Nucleated RBC % Seg Neutrophils # 8.6 H Seg Neutrophils # Man Lymphocytes # (Manual) Monocytes # (Manual) PT INR POC ABG pH POC ABG pCO2 POC ABG pO2 VBG pH Sodium Potassium 3.4 L Chloride Carbon Dioxide 31 H BUN 42 H Creatinine 2.2 H Glucose 101 H POC Glucose 163 H Hemoglobin A1c Lactic Acid Calcium 7.1 L Ionized Calcium Total Bilirubin AST ALT Alkaline Phosphatase C-Reactive Protein Total Protein Albumin Complement C3 Complement C4 02/01/18 02/01/18 02/01/18 11:54 18:21 23:34 WBC RBC Hgb Hct MCH RDW Plt Count Lymph % (Auto) [place] % (Auto) Lymph # [place] # Seg Neutrophils % Seg Neuts % (Manual) Lymphocytes % (Manual) Monocytes % (Manual) Nucleated RBC % Seg Neutrophils # Seg Neutrophils # Man Lymphocytes # (Manual) Monocytes # (Manual) PT INR POC ABG pH POC ABG pCO2 POC ABG pO2 VBG pH Sodium Potassium Chloride Carbon Dioxide BUN Creatinine Glucose POC Glucose 123 H 157 H 114 H Hemoglobin A1c Lactic Acid Calcium Ionized Calcium Total Bilirubin AST ALT Alkaline Phosphatase C-Reactive Protein Total Protein Albumin Complement C3 Complement C4 02/02/18 02/02/18 03:30 05:45 WBC RBC Hgb Hct MCH RDW Plt Count Lymph % (Auto) [place] % (Auto) Lymph # [place] # Seg Neutrophils % Seg Neuts % (Manual) Lymphocytes % (Manual) Monocytes % (Manual) Nucleated RBC % Seg Neutrophils # Seg Neutrophils # Man Lymphocytes # (Manual) Monocytes # (Manual) PT INR POC ABG pH POC ABG pCO2 POC ABG pO2 VBG pH Sodium Potassium 3.3 L Chloride 97.8 L Carbon Dioxide BUN 58 H Creatinine 2.7 H Glucose 111 H POC Glucose 110 H Hemoglobin A1c Lactic Acid Calcium 7.1 L Ionized Calcium Total Bilirubin AST ALT Alkaline Phosphatase C-Reactive Protein Total Protein Albumin Complement C3 Complement C4 Allied health notes reviewed: nursing
--- NOTE | 2018-02-02 12:01 | Progress Note ---
Assessment and Plan Assessment and plan: Acute hypercapnic respiratory failure -Likely from drug abuse and aspiration -VAP bundle -on vent support -Lung protective strategies, ARDS-net protocol Left Pneumothorax -s/p chest tube -Follow up serial chest x-ray Severe Sepsis with septic shock likely from aspiration pneumonia-POA -Shock resolved -abx on hold per ID -Leukocytosis is improving -Left lobar infiltrate on admission -?pelvic abscess -IR consulted for evaluation for possible drainage and cx Penicillin allergy DM uncontrolled -Continue insulin therapy Shock required pressors -Resolved -likely from sepsis vs cardiogenic -off pressors but required 3 pressors on admission Bilateral upper and lower extremity ischemia/necrosis Etiology secondary to sepsis and previous pressors. Vascular follow up. Decompensated acute CHF - EF 30-35% on echo - cardiology following History of pacemaker insertion in 2008 post PCI History of CAD s/p PCI in 2008 [place] Etiology likely due to ATN from severe sepsis - monitor renal function, now on HD - HD per renal service. Patient currently dialyzing via a femoral Vas-Cath. Vascular surgery to place access next week - Avoid nephrotoxins, nephrology consulted History of cocaine and methamphetamine abuse Acute encephalopathy - Multifactorial, likely from drug abuse vs severe sepsis versus anoxic encephalopathy - CT head no acute finding - Pacemaker precludes getting MRI brain Ischemic hepatitis Elevated LFTs, etiology secondary to shock liver syndrome - Likely from severe hypotension causing shock liver - Continue to monitor Coagulopathy Etiology due to severe sepsis and abnormal liver function Thrombocytopenia Etiology likely secondary to sepsis - Montior Disposition: Continue ICU monitoring The high probability of a clinically significant, sudden or life threatening deterioration of the [multiorgan] system(s) required my full and direct attention, intervention and personal management. The aggregate critical care time was [32] minutes. This time is in addition to time spent performing reported procedures but includes the following: [x] Data Review and interpretation [x] Patient assessment and monitoring of vital signs [x] Documentation [x] Medication orders and management History Interval history: 62-year-old admitted with hx of htn, polysubstance drug abuse per family, admitted after she was found unresponsive found in the bathroom of a friends home, noted with severe lactic acidosis, hypotensive on vasopressors, hypercapenic respiratory failure requiring intubation . Hospitalist Physical - Constitutional Vitals: Temp Pulse Resp BP Pulse Ox 97.9 F 79 19 114/60 99 02/02/18 08:00 02/02/18 09:00 02/02/18 09:00 02/02/18 09:00 02/02/18 09:00 General appearance: Present: other (intubated) - EENT Eyes: Present: PERRL, EOM intact ENT: hearing intact, clear oral mucosa, dentition normal - Neck Neck: Present: supple, normal ROM - Respiratory Respiratory effort: normal Respiratory: bilateral: diminished, rhonchi - Cardiovascular Rhythm: regular Heart Sounds: Present: S1 & S2. Absent: gallop, rub - Extremities Extremities: no ischemia, No edema, Full ROM - Abdominal General gastrointestinal: soft, non-tender, non-distended, normal bowel sounds - Integumentary Integumentary: Present: clear, warm, dry - Neurologic Neurologic: CNII-XII intact, moves all extremities Results - Labs CBC & Chem 7: 02/01/18 04:00 02/02/18 03:30 Labs: Laboratory Last Values WBC 10.5 K/mm3 (4.5-11.0) 02/01/18 04:00 RBC 3.16 M/mm3 (3.65-5.03) L 02/01/18 04:00 Hgb 8.7 gm/dl (10.1-14.3) L 02/01/18 04:00 Hct 27.5 % (30.3-42.9) L 02/01/18 04:00 MCV 87 fl (79-97) 02/01/18 04:00 MCH 28 pg (28-32) 02/01/18 04:00 MCHC 32 % (30-34) 02/01/18 04:00 RDW 15.2 % (13.2-15.2) 02/01/18 04:00 Plt Count 257 K/mm3 (140-440) 02/01/18 04:00 Lymph % (Auto) 6.4 % (13.4-35.0) L 02/01/18 04:00 [place] % (Auto) 10.2 % (0.0-7.3) H 02/01/18 04:00 Eos % (Auto) 1.3 % (0.0-4.3) 02/01/18 04:00 Baso % (Auto) 0.4 % (0.0-1.8) 02/01/18 04:00 Lymph # 0.7 K/mm3 (1.2-5.4) L 02/01/18 04:00 [place] # 1.1 K/mm3 (0.0-0.8) H 02/01/18 04:00 Eos # 0.1 K/mm3 (0.0-0.4) 02/01/18 04:00 Baso # 0.0 K/mm3 (0.0-0.1) 02/01/18 04:00 Add Manual Diff Complete 01/30/18 Unknown Total Counted 100 01/30/18 Unknown Seg Neutrophils % 81.7 % (40.0-70.0) H 02/01/18 04:00 Seg Neuts % (Manual) 95.0 % (40.0-70.0) H 01/30/18 Unknown Band Neutrophils % 2.0 % 01/30/18 Unknown Lymphocytes % (Manual) 1.0 % (13.4-35.0) L 01/30/18 Unknown Reactive Lymphs % (Man) 0 % 01/30/18 Unknown Monocytes % (Manual) 2.0 % (0.0-7.3) 01/30/18 Unknown Eosinophils % (Manual) 0 % (0.0-4.3) 01/30/18 Unknown Basophils % (Manual) 0 % (0.0-1.8) 01/30/18 Unknown Metamyelocytes % 0 % 01/30/18 Unknown Myelocytes % 0 % 01/30/18 Unknown Promyelocytes % 0 % 01/30/18 Unknown Blast Cells % 0 % 01/30/18 Unknown Nucleated RBC % Not Reportable 01/30/18 Unknown Seg Neutrophils # 8.6 K/mm3 (1.8-7.7) H 02/01/18 04:00 Seg Neutrophils # Man 12.2 K/mm3 (1.8-7.7) H 01/30/18 Unknown Band Neutrophils # 0.3 K/mm3 01/30/18 Unknown Lymphocytes # (Manual) 0.1 K/mm3 (1.2-5.4) L 01/30/18 Unknown Abs React Lymphs (Man) 0.0 K/mm3 01/30/18 Unknown Monocytes # (Manual) 0.3 K/mm3 (0.0-0.8) 01/30/18 Unknown Eosinophils # (Manual) 0.0 K/mm3 (0.0-0.4) 01/30/18 Unknown Basophils # (Manual) 0.0 K/mm3 (0.0-0.1) 01/30/18 Unknown Metamyelocytes # 0.0 K/mm3 01/30/18 Unknown Myelocytes # 0.0 K/mm3 01/30/18 Unknown Promyelocytes # 0.0 K/mm3 01/30/18 Unknown Blast Cells # 0.0 K/mm3 01/30/18 Unknown WBC Morphology Not Reportable 01/30/18 Unknown Hypersegmented Neuts Not Reportable 01/30/18 Unknown Hyposegmented Neuts Not Reportable 01/30/18 Unknown Hypogranular Neuts Not Reportable 01/30/18 Unknown Smudge Cells Not Reportable 01/30/18 Unknown Toxic Granulation Not Reportable 01/30/18 Unknown Toxic Vacuolation Not Reportable 01/30/18 Unknown Dohle Bodies Not Reportable 01/30/18 Unknown Pelger-Huet Anomaly Not Reportable 01/30/18 Unknown Opal Rods Not Reportable 01/30/18 Unknown Platelet Estimate Consistent w auto 01/30/18 Unknown Clumped Platelets Not Reportable 01/30/18 Unknown Plt Clumps, EDTA Not Reportable 01/30/18 Unknown Large Platelets Not Reportable 01/30/18 Unknown Giant Platelets Not Reportable 01/30/18 Unknown Platelet Satelliting Not Reportable 01/30/18 Unknown Plt Morphology Comment Not Reportable 01/30/18 Unknown RBC Morphology Not Reportable 01/30/18 Unknown Dimorphic RBCs Not Reportable 01/30/18 Unknown Polychromasia Not Reportable 01/30/18 Unknown Hypochromasia 1+ 01/30/18 Unknown Poikilocytosis Not Reportable 01/30/18 Unknown Anisocytosis Not Reportable 01/30/18 Unknown Microcytosis Few 01/30/18 Unknown Macrocytosis Not Reportable 01/30/18 Unknown Spherocytes Not Reportable 01/30/18 Unknown Pappenheimer Bodies Not Reportable 01/30/18 Unknown Sickle Cells Not Reportable 01/30/18 Unknown Target Cells Not Reportable 01/30/18 Unknown Tear Drop Cells Not Reportable 01/30/18 Unknown Ovalocytes Not Reportable 01/30/18 Unknown Stomatocytes Few 01/30/18 Unknown Helmet Cells Not Reportable 01/30/18 Unknown [place] Bodies Not Reportable 01/30/18 Unknown [place] Rings Not Reportable 01/30/18 Unknown [place] Cells Not Reportable 01/30/18 Unknown Bite Cells Not Reportable 01/30/18 Unknown Crenated Cell Not Reportable 01/30/18 Unknown Elliptocytes Not Reportable 01/30/18 Unknown Acanthocytes (Spur) Not Reportable 01/30/18 Unknown Rouleaux Not Reportable 01/30/18 Unknown Hemoglobin C Crystals Not Reportable 01/30/18 Unknown Schistocytes Not Reportable 01/30/18 Unknown Malaria parasites Not Reportable 01/30/18 Unknown Brock Bodies Not Reportable 01/30/18 Unknown Hem Pathologist Commnt No 01/30/18 Unknown PT 17.5 Sec. (12.2-14.9) H 01/20/18 07:00 INR 1.35 (0.87-1.13) H 01/20/18 07:00 Heparin Anti-Xa, Unfract Negative (Negative) 01/20/18 11:03 POC ABG pH 7.456 (7.35-7.45) H 01/30/18 04:47 POC ABG pCO2 36.5 (35-45) 01/30/18 04:47 POC ABG pO2 82 (80-105) 01/30/18 04:47 POC ABG HCO3 25.7 01/30/18 04:47 POC ABG Total CO2 27 01/30/18 04:47 POC ABG O2 Sat 97 01/30/18 04:47 POC ABG Base Excess 2 01/30/18 04:47 VBG pH 7.273 (7.320-7.420) L 01/17/18 16:54 FiO2 30 % 01/30/18 04:47 Sodium 138 mmol/L (137-145) 02/02/18 03:30 Potassium 3.3 mmol/L (3.6-5.0) L 02/02/18 03:30 Chloride 97.8 mmol/L (98-107) L 02/02/18 03:30 Carbon Dioxide 28 mmol/L (22-30) 02/02/18 03:30 Anion Gap 16 mmol/L 02/02/18 03:30 BUN 58 mg/dL (7-17) H 02/02/18 03:30 Creatinine 2.7 mg/dL (0.7-1.2) H 02/02/18 03:30 Estimated GFR 18 ml/min 02/02/18 03:30 BUN/Creatinine Ratio 21 % 02/02/18 03:30 Glucose 111 mg/dL (65-100) H 02/02/18 03:30 POC Glucose 110 (70-105) H 02/02/18 05:45 Hemoglobin A1c 9.0 % (4-6) H 01/17/18 22:36 Lactic Acid 1.40 mmol/L (0.7-2.0) 01/24/18 15:08 Calcium 7.1 mg/dL (8.4-10.2) L 02/02/18 03:30 Ionized Calcium 3.9 mg/dL (4.8-5.6) L 01/29/18 06:00 Magnesium 1.80 mg/dL (1.7-2.3) 01/29/18 06:00 Total Bilirubin 0.50 mg/dL (0.1-1.2) 01/29/18 06:00 AST 21 units/L (5-40) 01/29/18 06:00 ALT 53 units/L (7-56) 01/29/18 06:00 Alkaline Phosphatase 88 units/L (35-129) 01/29/18 06:00 C-Reactive Protein 3.30 mg/dL (0.00-1.30) H 01/24/18 15:08 Total Protein 4.5 g/dL (6.3-8.2) L 01/29/18 06:00 Albumin 2.0 g/dL (3.9-5) L 01/29/18 06:00 Albumin/Globulin Ratio 0.8 % 01/29/18 06:00 Serotonin Release Assay See scanned report 01/20/18 11:03 Random Vancomycin 19.8 ug/mL (0-40.0) 01/27/18 05:20 ALISA Screen Negative (Negative) 01/20/18 Unknown Heparin-induced Plt Ab Negative (Negative) 01/20/18 11:03 UF Heparin High Dose 0 % Release 01/20/18 11:03 NEGRITA UFH Low Dose 0.1 0 % Release 01/20/18 11:03 NEGRITA UFH Low Dose 0.5 0 % Release 01/20/18 11:03 Complement C3 47 mg/dL (83-193) L 01/20/18 Unknown Complement C4 9 mg/dL (15-57) L 01/20/18 Unknown Hepatitis A IgM Ab Non-reactive (NonReactive) 01/20/18 07:00 Hep Bs Antigen Non-reactive (Negative) 01/20/18 07:00 Hep B Core IgM Ab Non-reactive (NonReactive) 01/20/18 07:00 Hepatitis C Antibody Non-reactive (NonReactive) 01/20/18 07:00 HIV 1&2 Antibody Rapid Non react (Non React) 01/20/18 Unknown HIV P24 Antigen Non react (Non React) 01/20/18 Unknown
--- NOTE | 2018-02-02 12:46 | Progress Note ---
Assessment and Plan Impression: * Acute kidney injury secondary to ATN - on hemodialysis * Acute respiratory failure * Spontaneous left pneumothorax s/p chest tube insertion * Sepsis * Pleural effusion * Cardiomyopathy * Anemia * Polysubstance abuse * Type II DM * Ischemic, necrotic digits of hands/feet * Pelvic mass Plan: * Patient had hemodialysis on Saturday * Monitor for recovery - * Her urine output seems to be borderline. Serum creatinine is slightly higher today. * Depending on her volume status and chemistries will decide about her next dialysis. Shall keep her nothing by mouth from midnight for possible access placement in the morning. Discussed with Dr. Frederick * Consultants' recommendations noted * Abx per ID * Strict i/os * Avoid nephrotoxins * Daily lytes Subjective Date of service: 02/02/18 Principal diagnosis: Acute hypoxic respiratory failure, severe sepsis with shock , encephalopathy Interval history: Patient remains on the ventilator. Currently on 30% FiO2. Unresponsive. Currently off pressors. Objective - Vital Signs Vital signs: Vital Signs - 12hr 02/02/18 02/02/18 02/02/18 00:46 01:00 01:16 Temperature Pulse Rate 82 88 83 Pulse Rate [ Bilateral Throughout] Pulse Rate [ From Monitor] Respiratory 21 19 18 Rate Respiratory Rate [Bilateral Throughout] Blood Pressure 93/50 93/50 109/62 O2 Sat by Pulse 100 100 100 Oximetry 02/02/18 02/02/18 02/02/18 01:30 01:46 02:00 Temperature Pulse Rate 86 84 87 Pulse Rate [ Bilateral Throughout] Pulse Rate [ From Monitor] Respiratory 16 16 18 Rate Respiratory Rate [Bilateral Throughout] Blood Pressure 109/62 109/62 115/57 O2 Sat by Pulse 100 100 99 Oximetry 02/02/18 02/02/18 02/02/18 02:16 02:30 02:36 Temperature Pulse Rate 90 89 Pulse Rate [ 93 H 88 Bilateral Throughout] Pulse Rate [ From Monitor] Respiratory 18 14 Rate Respiratory 19 15 Rate [Bilateral Throughout] Blood Pressure 115/57 115/57 O2 Sat by Pulse 99 100 Oximetry 02/02/18 02/02/18 02/02/18 02:46 03:00 03:16 Temperature Pulse Rate 91 H 87 90 Pulse Rate [ Bilateral Throughout] Pulse Rate [ From Monitor] Respiratory 20 17 16 Rate Respiratory Rate [Bilateral Throughout] Blood Pressure 115/57 103/55 103/55 O2 Sat by Pulse 100 99 100 Oximetry 02/02/18 02/02/18 02/02/18 03:30 03:46 04:00 Temperature 99.6 F Pulse Rate 87 83 82 Pulse Rate [ Bilateral Throughout] Pulse Rate [ 85 From Monitor] Respiratory 20 16 15 Rate Respiratory Rate [Bilateral Throughout] Blood Pressure 115/57 103/55 96/50 O2 Sat by Pulse 99 100 99 Oximetry 02/02/18 02/02/18 02/02/18 04:15 04:30 04:35 Temperature Pulse Rate 93 H 98 H 90 Pulse Rate [ Bilateral Throughout] Pulse Rate [ From Monitor] Respiratory 14 22 Rate Respiratory Rate [Bilateral Throughout] Blood Pressure 96/50 96/50 96/50 O2 Sat by Pulse 99 Oximetry 02/02/18 02/02/18 02/02/18 04:45 05:01 05:15 Temperature Pulse Rate 95 H 89 84 Pulse Rate [ Bilateral Throughout] Pulse Rate [ From Monitor] Respiratory 28 H 18 16 Rate Respiratory Rate [Bilateral Throughout] Blood Pressure 96/50 96/50 140/72 O2 Sat by Pulse 87 99 Oximetry 02/02/18 02/02/18 02/02/18 05:31 05:45 06:00 Temperature Pulse Rate 83 86 86 Pulse Rate [ Bilateral Throughout] Pulse Rate [ From Monitor] Respiratory 15 17 19 Rate Respiratory Rate [Bilateral Throughout] Blood Pressure 140/72 140/72 129/67 O2 Sat by Pulse 100 100 100 Oximetry 02/02/18 02/02/18 02/02/18 06:15 06:31 06:45 Temperature Pulse Rate 85 87 86 Pulse Rate [ Bilateral Throughout] Pulse Rate [ From Monitor] Respiratory 15 14 18 Rate Respiratory Rate [Bilateral Throughout] Blood Pressure 129/67 129/67 129/67 O2 Sat by Pulse 100 100 100 Oximetry 02/02/18 02/02/18 02/02/18 07:00 07:15 07:31 Temperature Pulse Rate 85 83 83 Pulse Rate [ Bilateral Throughout] Pulse Rate [ From Monitor] Respiratory 16 15 15 Rate Respiratory Rate [Bilateral Throughout] Blood Pressure 104/56 104/56 104/56 O2 Sat by Pulse 100 100 100 Oximetry 02/02/18 02/02/18 02/02/18 07:45 08:00 08:15 Temperature 97.9 F Pulse Rate 84 79 80 Pulse Rate [ Bilateral Throughout] Pulse Rate [ 81 From Monitor] Respiratory 16 10 L 14 Rate Respiratory Rate [Bilateral Throughout] Blood Pressure 104/56 116/56 116/56 O2 Sat by Pulse 100 100 100 Oximetry 02/02/18 02/02/18 02/02/18 08:31 08:38 08:42 Temperature Pulse Rate 80 81 Pulse Rate [ 80 Bilateral Throughout] Pulse Rate [ From Monitor] Respiratory 15 22 Rate Respiratory 22 Rate [Bilateral Throughout] Blood Pressure 116/56 116/56 O2 Sat by Pulse 100 100 Oximetry 02/02/18 02/02/18 02/02/18 08:45 08:50 09:00 Temperature Pulse Rate 81 79 Pulse Rate [ 81 Bilateral Throughout] Pulse Rate [ From Monitor] Respiratory 19 19 Rate Respiratory 21 Rate [Bilateral Throughout] Blood Pressure 116/56 114/60 O2 Sat by Pulse 100 99 Oximetry 02/02/18 02/02/18 02/02/18 09:15 09:31 09:45 Temperature Pulse Rate 78 80 81 Pulse Rate [ Bilateral Throughout] Pulse Rate [ From Monitor] Respiratory 18 18 19 Rate Respiratory Rate [Bilateral Throughout] Blood Pressure 116/56 116/56 116/56 O2 Sat by Pulse 100 100 100 Oximetry 02/02/18 02/02/18 02/02/18 10:00 10:15 10:31 Temperature Pulse Rate 79 78 82 Pulse Rate [ Bilateral Throughout] Pulse Rate [ From Monitor] Respiratory 16 24 18 Rate Respiratory Rate [Bilateral Throughout] Blood Pressure 113/60 113/60 113/60 O2 Sat by Pulse 100 99 100 Oximetry 02/02/18 02/02/18 02/02/18 10:45 11:00 11:15 Temperature Pulse Rate 80 80 78 Pulse Rate [ Bilateral Throughout] Pulse Rate [ From Monitor] Respiratory 16 18 17 Rate Respiratory Rate [Bilateral Throughout] Blood Pressure 113/60 129/69 129/69 O2 Sat by Pulse 100 100 100 Oximetry 02/02/18 02/02/18 02/02/18 11:31 11:45 12:00 Temperature Pulse Rate 88 92 H 86 Pulse Rate [ Bilateral Throughout] Pulse Rate [ From Monitor] Respiratory 20 15 18 Rate Respiratory Rate [Bilateral Throughout] Blood Pressure 129/69 129/69 139/71 O2 Sat by Pulse 100 99 100 Oximetry 02/02/18 02/02/18 12:01 12:15 Temperature Pulse Rate 87 87 Pulse Rate [ Bilateral Throughout] Pulse Rate [ From Monitor] Respiratory 17 15 Rate Respiratory Rate [Bilateral Throughout] Blood Pressure 139/71 139/71 O2 Sat by Pulse 100 99 Oximetry - General Appearance General appearance: well-developed, well-nourished, appears stated age, intubated EENT: PERRL, mucous membranes moist Neck: no JVD, no thyromegaly, no carotid bruit, supple Respiratory: Present: Clear to Ascultation Cardiology: regular, normal heart rate Gastrointestinal: normal, normoactive bowel sounds Integumentary: other (1+ edema) - Lab 02/01/18 04:00 02/02/18 03:30 Most recent lab results Calcium 7.1 mg/dL (8.4-10.2) L 02/02/18 03:30 Magnesium 1.80 mg/dL (1.7-2.3) 01/29/18 06:00
[2018-02-02] MEDS: APRESOLINE IV PRN (17:47)
[2018-02-03] MEDS: HumaLOG SUB-Q SCH ×5 (00:05→23:12)
[2018-02-03] MEDS: HEPARIN SUB-Q SCH ×3 (05:34→21:33)
[2018-02-03 05:42] LABS: Calcium 7.6 mg/dL (8.4-10.2)
[2018-02-03] MEDS: DUONEB *Not for PRN Use IH SCH ×4 (06:20→21:09)
--- NOTE | 2018-02-03 08:34 | Progress Note ---
Assessment and Plan Assessment: 1) Severe sepsis with septic shock and MODS: shock resolved, fever resolved and leukocytosis better 34-->23-->24-->15 -->8K. Etiology most likely unclear. DDx: pneumonia ? pelvic collections? large left sided pneumothorax -blood cx negative -legs US neg for DVT -CRP=37 -HIV neg -ALISA neg 2) Acute respiratory failure - better s/p Chest tube due to large left sided pneumothorax on 01/28 3) Presumed pneumonia: -repeat CXR - decreased effusion -TA no growth -CT chest left minimal pleural effusion and infiltrate 4) JANESSA: on HD 5) Large left sided pneumothorax s/p CT on 01/28 6) DM-poorly controlled 7) Bilateral fingers ischemic changes: from pressors ? 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 flushing ? zosyn allergy 11) Acute encephalopathy 12) Pelvic collections x 3: ? etiology -CT showed non obstructed left kidney stones, large left pelvic cyst 8.8 x 5.7 cm, LLL atelectasis minimal pleural effusion 13) Penicillin allergy Plan: -monitor fever off antibiotics -at some point needs vascular eval about digits ischemia.\ -Call me back if fever >101 and check blood cultures I am signing off Thank you for your consultation, will follow up with you. . Michaela Parekh MD Infectious Diseases Specialist [facility], [place] [phone] O [phone] Subjective Date of service: 02/03/18 Principal diagnosis: Acute hypoxic respiratory failure, severe sepsis with shock , encephalopathy Interval history: Remains intubated fiO2 30%, p5, sedated, sedated however eyes opening. + low grade temp 100.2 Microbiology: Blood cultures: 01/17 neg 01/20 neg 01/24 neg Urine cultures: Respiratory cultures: TA 01/17 ngtd Current Antimicrobials: none Previous Antimicrobials: Zosyn 01/18 Vancomycin 01/18 levaquin 01/23 -01/28 flagyl 01/23 -01/28 Objective - Exam Narrative Exam: General appearance: sedated on the vent open eyes Eyes: anicteric sclerae, moist conjunctivae; no lid-lag; PERRLA HENT: Atraumatic; oropharynx clear +ETT +NGT Neck: Trachea midline; supple, no thyromegaly or lymphadenopathy Lungs: juan rhonchi, left sided chest tube CV: tachy Abdomen: Soft, non-tender; distended Extremities: No peripheral edema or extremity lymphadenopathy Skin: . +bilateral hands, multiple fingers and sole and toes necrotic changes. Multiple skin tears and ecchymoses Psych: sedated Neuro: sedated Lines: right fem vascath, right IJ TLC - Constitutional Vitals: Vital Signs Temp Pulse Resp BP Pulse Ox 99 F 84 15 102/43 99 02/03/18 04:00 02/03/18 08:00 02/03/18 08:00 02/03/18 08:00 02/03/18 08:00 Temperature -Last 24 Hours Temperature 99 F Temperature 100.0 F Temperature 100.3 F Temperature 99.2 F Temperature 98.7 F - Labs CBC & Chem 7: 02/01/18 04:00 02/03/18 04:45 Labs: Abnormal lab results 02/02/18 02/02/18 02/03/18 Range/Units 17:27 23:34 04:45 BUN 72 H (7-17) mg/dL Creatinine 3.2 H (0.7-1.2) mg/dL POC Glucose 125 H 153 H (70-105) Calcium 7.6 L (8.4-10.2) mg/dL 02/03/18 Range/Units 05:38 BUN (7-17) mg/dL Creatinine (0.7-1.2) mg/dL POC Glucose 111 H (70-105) Calcium (8.4-10.2) mg/dL
--- NOTE | 2018-02-03 09:55 | Event Note ---
Date: 02/03/18 Patient will have Vas-Cath placed today so that she may resume dialysis. Additionally, evaluating the patient, her left chest tube has serous drainage but also blood. We'll order a CT of the chest for further evaluation.
--- NOTE | 2018-02-03 10:49 | Progress Note ---
Assessment and Plan Impression: * JANESSA-with ATN * VAP * Pl Effusion * Cardiomyopathy * Anemia * Sepsis * Drug abuse * DM type 2 * hyperkalemia Plan: * HD q MWF and prn * k noted, kayexalate today * low k bath with hd * monitory for renal recovery * strict i/os * avoid nephrotoxins * uf as tolerated with HD * daily lytes * IV abx per primary team Subjective Date of service: 02/03/18 Principal diagnosis: Acute hypoxic respiratory failure, severe sepsis with shock , encephalopathy Interval history: resting well in bed today Objective - Exam Narrative Exam: HEENT: Oral mucosa moist no pallor or icterus, orally intubated Neck: Supple no JVD Chest: bilateral coarse breath sounds diminished at lung bases CVS: Regular rate and rhythm S1 and S2 heard Abdomen: Soft nontender no suprapubic masses no organomegaly appreciable Extremity: Dry skin less than 1+ peripheral edema Musculoskeletal: No joint effusion noted in knees and ankle Neurological: encephalopathic Dermatology: No petechial rashes Psychiatry: No evidence of any agitation and aggression noted - Vital Signs Vital signs: Vital Signs - 12hr 02/02/18 02/02/18 02/02/18 23:00 23:15 23:24 Temperature Pulse Rate 110 H 102 H 121 H Pulse Rate [ Bilateral Throughout] Respiratory 21 17 Rate Respiratory Rate [Bilateral Throughout] Blood Pressure 106/64 96/54 106/64 O2 Sat by Pulse 99 97 99 Oximetry 02/02/18 02/02/18 02/03/18 23:31 23:45 00:00 Temperature 100.0 F H Pulse Rate 104 H 103 H 103 H Pulse Rate [ Bilateral Throughout] Respiratory 28 H 24 25 H Rate Respiratory Rate [Bilateral Throughout] Blood Pressure 96/54 96/54 94/56 O2 Sat by Pulse 95 93 96 Oximetry 02/03/18 02/03/18 02/03/18 00:15 00:30 00:45 Temperature Pulse Rate 98 H 97 H 97 H Pulse Rate [ Bilateral Throughout] Respiratory 22 18 19 Rate Respiratory Rate [Bilateral Throughout] Blood Pressure 94/56 94/56 94/56 O2 Sat by Pulse 94 96 94 Oximetry 02/03/18 02/03/18 02/03/18 01:00 01:15 01:31 Temperature Pulse Rate 96 H 95 H 103 H Pulse Rate [ Bilateral Throughout] Respiratory 17 19 18 Rate Respiratory Rate [Bilateral Throughout] Blood Pressure 99/55 99/55 99/55 O2 Sat by Pulse 92 96 94 Oximetry 02/03/18 02/03/18 02/03/18 01:45 02:00 02:15 Temperature Pulse Rate 98 H 97 H 105 H Pulse Rate [ Bilateral Throughout] Respiratory 20 17 22 Rate Respiratory Rate [Bilateral Throughout] Blood Pressure 99/55 100/60 100/60 O2 Sat by Pulse 95 91 92 Oximetry 02/03/18 02/03/18 02/03/18 02:31 02:45 03:00 Temperature Pulse Rate 100 H 98 H 94 H Pulse Rate [ Bilateral Throughout] Respiratory 22 22 19 Rate Respiratory Rate [Bilateral Throughout] Blood Pressure 100/60 100/60 99/55 O2 Sat by Pulse 93 100 99 Oximetry 02/03/18 02/03/18 02/03/18 03:15 03:30 03:46 Temperature Pulse Rate 92 H 97 H 93 H Pulse Rate [ Bilateral Throughout] Respiratory 21 16 14 Rate Respiratory Rate [Bilateral Throughout] Blood Pressure 99/55 99/55 O2 Sat by Pulse 99 99 99 Oximetry 02/03/18 02/03/18 02/03/18 04:00 04:16 04:30 Temperature 99 F Pulse Rate 93 H 95 H 93 H Pulse Rate [ Bilateral Throughout] Respiratory 20 18 18 Rate Respiratory Rate [Bilateral Throughout] Blood Pressure 97/55 97/55 97/55 O2 Sat by Pulse 99 99 99 Oximetry 02/03/18 02/03/18 02/03/18 04:46 05:00 05:16 Temperature Pulse Rate 93 H 91 H 90 Pulse Rate [ Bilateral Throughout] Respiratory 19 18 17 Rate Respiratory Rate [Bilateral Throughout] Blood Pressure 97/55 97/55 104/58 O2 Sat by Pulse 99 99 99 Oximetry 02/03/18 02/03/18 02/03/18 05:30 05:46 06:00 Temperature Pulse Rate 92 H 90 87 Pulse Rate [ Bilateral Throughout] Respiratory 17 18 17 Rate Respiratory Rate [Bilateral Throughout] Blood Pressure 104/58 104/58 98/56 O2 Sat by Pulse 99 99 98 Oximetry 02/03/18 02/03/18 02/03/18 07:00 08:00 08:15 Temperature Pulse Rate 94 H 84 88 Pulse Rate [ Bilateral Throughout] Respiratory 21 15 Rate Respiratory Rate [Bilateral Throughout] Blood Pressure 110/63 102/43 102/43 O2 Sat by Pulse 98 99 98 Oximetry 02/03/18 02/03/18 02/03/18 08:30 08:45 08:57 Temperature 98.7 F Pulse Rate Pulse Rate [ 98 H 88 Bilateral Throughout] Respiratory Rate Respiratory 24 24 Rate [Bilateral Throughout] Blood Pressure O2 Sat by Pulse Oximetry - Lab 02/01/18 04:00 02/03/18 04:45 Most recent lab results Calcium 7.6 mg/dL (8.4-10.2) L 02/03/18 04:45 Magnesium 1.80 mg/dL (1.7-2.3) 01/29/18 06:00
[2018-02-03] MEDS: PEPCID PO SCH (11:00)
[2018-02-03] MEDS: SODIUM CHLORIDE FLUSH SYRINGE 10 ML IV SCH ×2 (11:01→21:20)
--- NOTE | 2018-02-03 11:06 | Operative Report ---
Operative Report Operative Report: Operative note: Date: 02/03/2018 Preoperative diagnosis: Renal failure Postoperative diagnosis: Same. Operation: Left IJ Vas-Cath insertion Surgeon: Linnea Montano. Asst.: None Anesthesia: Local EBL: Minimal Findings: patent left IJ Indications: Acute renal failure, patient had femoral Vas-Cath that was removed and needs IJ access. All risks and benefits were discussed with her daughter, she agreed and signed informed consent. Operative details: Procedure was performed at the bedside in the ICU setting. Patient's left neck was prepped and draped right groin in a sterile fashion. After timeout performed and left neck injected with local anesthetic left IJ vein was accessed under ultrasound guidance with micropuncture needle and exchanged for micropuncture sheath. Wire was advanced in the SVC. Skin incision was made with 11 blade and serially dilated skin past with subsequent insertion of Vas-Cath catheter 15 cm in length. Ports were checked for good flow and flushed with saline. Catheter was secured in place with 3-0 silk stitches and sterile dressing applied. she tolerated the procedure well.
--- NOTE | 2018-02-03 12:05 | Progress Note ---
Assessment and Plan Assessment and plan: Acute hypercapnic respiratory failure -Likely from drug abuse and aspiration -VAP bundle -on vent support -Lung protective strategies, ARDS-net protocol Left Pneumothorax -s/p chest tube. Patient with bloody drainage today. -? Hemothorax -Follow up CT chest today. I discussed with Dr. Suazo. Severe Sepsis with septic shock likely from aspiration pneumonia-POA -Shock resolved -abx on hold per ID -Leukocytosis is improving -Left lobar infiltrate on admission -?pelvic abscess -IR consulted for evaluation for possible drainage and cx Penicillin allergy DM uncontrolled -Continue insulin therapy Shock required pressors -Resolved -likely from sepsis vs cardiogenic -off pressors but required 3 pressors on admission Bilateral upper and lower extremity ischemia/necrosis Etiology secondary to sepsis and previous pressors. Vascular follow up. Decompensated acute CHF - EF 30-35% on echo - cardiology following History of pacemaker insertion in 2008 post PCI History of CAD s/p PCI in 2008 [place] Etiology likely due to ATN from severe sepsis - monitor renal function, now on HD - HD per renal service. Vascular surgery placed left IJ Vas-Cath today - Avoid nephrotoxins, nephrology consulted History of cocaine and methamphetamine abuse Acute encephalopathy - Multifactorial, likely from drug abuse vs severe sepsis versus anoxic encephalopathy - CT head no acute finding - Pacemaker precludes getting MRI brain Ischemic hepatitis Elevated LFTs, etiology secondary to shock liver syndrome - Likely from severe hypotension causing shock liver - Continue to monitor Coagulopathy Etiology due to severe sepsis and abnormal liver function Thrombocytopenia Etiology likely secondary to sepsis - Montior Disposition: Continue ICU monitoring The high probability of a clinically significant, sudden or life threatening deterioration of the [multiorgan] system(s) required my full and direct attention, intervention and personal management. The aggregate critical care time was [32] minutes. This time is in addition to time spent performing reported procedures but includes the following: [x] Data Review and interpretation [x] Patient assessment and monitoring of vital signs [x] Documentation [x] Medication orders and management History Interval history: 62-year-old admitted with hx of htn, polysubstance drug abuse per family, admitted after she was found unresponsive found in the bathroom of a friends home, noted with severe lactic acidosis, hypotensive on vasopressors, hypercapenic respiratory failure requiring intubation . Hospitalist Physical - Constitutional Vitals: Temp Pulse Resp BP Pulse Ox 98.7 F 82 24 111/56 100 02/03/18 08:57 03/26/18 11:00 02/03/18 11:00 02/03/18 11:00 02/03/18 11:00 General appearance: Present: other (intubated) - EENT Eyes: Present: PERRL, EOM intact ENT: hearing intact, clear oral mucosa, dentition normal - Neck Neck: Present: supple, normal ROM - Respiratory Respiratory effort: normal Respiratory: bilateral: CTA - Cardiovascular Rhythm: regular Heart Sounds: Present: S1 & S2. Absent: gallop, rub - Extremities Extremities: no ischemia, No edema, Full ROM - Abdominal General gastrointestinal: soft, non-tender, non-distended, normal bowel sounds - Integumentary Integumentary: Present: clear, warm, dry - Neurologic Neurologic: CNII-XII intact, moves all extremities Results - Labs CBC & Chem 7: 02/01/18 04:00 02/03/18 04:45 Labs: Laboratory Last Values WBC 10.5 K/mm3 (4.5-11.0) 02/01/18 04:00 RBC 3.16 M/mm3 (3.65-5.03) L 02/01/18 04:00 Hgb 8.7 gm/dl (10.1-14.3) L 02/01/18 04:00 Hct 27.5 % (30.3-42.9) L 02/01/18 04:00 MCV 87 fl (79-97) 02/01/18 04:00 MCH 28 pg (28-32) 02/01/18 04:00 MCHC 32 % (30-34) 02/01/18 04:00 RDW 15.2 % (13.2-15.2) 02/01/18 04:00 Plt Count 257 K/mm3 (140-440) 02/01/18 04:00 Lymph % (Auto) 6.4 % (13.4-35.0) L 02/01/18 04:00 [place] % (Auto) 10.2 % (0.0-7.3) H 02/01/18 04:00 Eos % (Auto) 1.3 % (0.0-4.3) 02/01/18 04:00 Baso % (Auto) 0.4 % (0.0-1.8) 02/01/18 04:00 Lymph # 0.7 K/mm3 (1.2-5.4) L 02/01/18 04:00 [place] # 1.1 K/mm3 (0.0-0.8) H 02/01/18 04:00 Eos # 0.1 K/mm3 (0.0-0.4) 02/01/18 04:00 Baso # 0.0 K/mm3 (0.0-0.1) 02/01/18 04:00 Add Manual Diff Complete 01/30/18 Unknown Total Counted 100 01/30/18 Unknown Seg Neutrophils % 81.7 % (40.0-70.0) H 02/01/18 04:00 Seg Neuts % (Manual) 95.0 % (40.0-70.0) H 01/30/18 Unknown Band Neutrophils % 2.0 % 01/30/18 Unknown Lymphocytes % (Manual) 1.0 % (13.4-35.0) L 01/30/18 Unknown Reactive Lymphs % (Man) 0 % 01/30/18 Unknown Monocytes % (Manual) 2.0 % (0.0-7.3) 01/30/18 Unknown Eosinophils % (Manual) 0 % (0.0-4.3) 01/30/18 Unknown Basophils % (Manual) 0 % (0.0-1.8) 01/30/18 Unknown Metamyelocytes % 0 % 01/30/18 Unknown Myelocytes % 0 % 01/30/18 Unknown Promyelocytes % 0 % 01/30/18 Unknown Blast Cells % 0 % 01/30/18 Unknown Nucleated RBC % Not Reportable 01/30/18 Unknown Seg Neutrophils # 8.6 K/mm3 (1.8-7.7) H 02/01/18 04:00 Seg Neutrophils # Man 12.2 K/mm3 (1.8-7.7) H 01/30/18 Unknown Band Neutrophils # 0.3 K/mm3 01/30/18 Unknown Lymphocytes # (Manual) 0.1 K/mm3 (1.2-5.4) L 01/30/18 Unknown Abs React Lymphs (Man) 0.0 K/mm3 01/30/18 Unknown Monocytes # (Manual) 0.3 K/mm3 (0.0-0.8) 01/30/18 Unknown Eosinophils # (Manual) 0.0 K/mm3 (0.0-0.4) 01/30/18 Unknown Basophils # (Manual) 0.0 K/mm3 (0.0-0.1) 01/30/18 Unknown Metamyelocytes # 0.0 K/mm3 01/30/18 Unknown Myelocytes # 0.0 K/mm3 01/30/18 Unknown Promyelocytes # 0.0 K/mm3 01/30/18 Unknown Blast Cells # 0.0 K/mm3 01/30/18 Unknown WBC Morphology Not Reportable 01/30/18 Unknown Hypersegmented Neuts Not Reportable 01/30/18 Unknown Hyposegmented Neuts Not Reportable 01/30/18 Unknown Hypogranular Neuts Not Reportable 01/30/18 Unknown Smudge Cells Not Reportable 01/30/18 Unknown Toxic Granulation Not Reportable 01/30/18 Unknown Toxic Vacuolation Not Reportable 01/30/18 Unknown Dohle Bodies Not Reportable 01/30/18 Unknown Pelger-Huet Anomaly Not Reportable 01/30/18 Unknown Opal Rods Not Reportable 01/30/18 Unknown Platelet Estimate Consistent w auto 01/30/18 Unknown Clumped Platelets Not Reportable 01/30/18 Unknown Plt Clumps, EDTA Not Reportable 01/30/18 Unknown Large Platelets Not Reportable 01/30/18 Unknown Giant Platelets Not Reportable 01/30/18 Unknown Platelet Satelliting Not Reportable 01/30/18 Unknown Plt Morphology Comment Not Reportable 01/30/18 Unknown RBC Morphology Not Reportable 01/30/18 Unknown Dimorphic RBCs Not Reportable 01/30/18 Unknown Polychromasia Not Reportable 01/30/18 Unknown Hypochromasia 1+ 01/30/18 Unknown Poikilocytosis Not Reportable 01/30/18 Unknown Anisocytosis Not Reportable 01/30/18 Unknown Microcytosis Few 01/30/18 Unknown Macrocytosis Not Reportable 01/30/18 Unknown Spherocytes Not Reportable 01/30/18 Unknown Pappenheimer Bodies Not Reportable 01/30/18 Unknown Sickle Cells Not Reportable 01/30/18 Unknown Target Cells Not Reportable 01/30/18 Unknown Tear Drop Cells Not Reportable 01/30/18 Unknown Ovalocytes Not Reportable 01/30/18 Unknown Stomatocytes Few 01/30/18 Unknown Helmet Cells Not Reportable 01/30/18 Unknown [place] Bodies Not Reportable 01/30/18 Unknown [place] Rings Not Reportable 01/30/18 Unknown [place] Cells Not Reportable 01/30/18 Unknown Bite Cells Not Reportable 01/30/18 Unknown Crenated Cell Not Reportable 01/30/18 Unknown Elliptocytes Not Reportable 01/30/18 Unknown Acanthocytes (Spur) Not Reportable 01/30/18 Unknown Rouleaux Not Reportable 01/30/18 Unknown Hemoglobin C Crystals Not Reportable 01/30/18 Unknown Schistocytes Not Reportable 01/30/18 Unknown Malaria parasites Not Reportable 01/30/18 Unknown Brock Bodies Not Reportable 01/30/18 Unknown Hem Pathologist Commnt No 01/30/18 Unknown PT 17.5 Sec. (12.2-14.9) H 01/20/18 07:00 INR 1.35 (0.87-1.13) H 01/20/18 07:00 Heparin Anti-Xa, Unfract Negative (Negative) 01/20/18 11:03 POC ABG pH 7.456 (7.35-7.45) H 01/30/18 04:47 POC ABG pCO2 36.5 (35-45) 01/30/18 04:47 POC ABG pO2 82 (80-105) 01/30/18 04:47 POC ABG HCO3 25.7 01/30/18 04:47 POC ABG Total CO2 27 01/30/18 04:47 POC ABG O2 Sat 97 01/30/18 04:47 POC ABG Base Excess 2 01/30/18 04:47 VBG pH 7.273 (7.320-7.420) L 01/17/18 16:54 FiO2 30 % 01/30/18 04:47 Sodium 141 mmol/L (137-145) 02/03/18 04:45 Potassium 3.6 mmol/L (3.6-5.0) 02/03/18 04:45 Chloride 100.1 mmol/L (98-107) 02/03/18 04:45 Carbon Dioxide 28 mmol/L (22-30) 02/03/18 04:45 Anion Gap 17 mmol/L 02/03/18 04:45 BUN 72 mg/dL (7-17) H 02/03/18 04:45 Creatinine 3.2 mg/dL (0.7-1.2) H 02/03/18 04:45 Estimated GFR 15 ml/min 02/03/18 04:45 BUN/Creatinine Ratio 23 % 02/03/18 04:45 Glucose 94 mg/dL (65-100) 02/03/18 04:45 POC Glucose 111 (70-105) H 02/03/18 05:38 Hemoglobin A1c 9.0 % (4-6) H 01/17/18 22:36 Lactic Acid 1.40 mmol/L (0.7-2.0) 01/24/18 15:08 Calcium 7.6 mg/dL (8.4-10.2) L 02/03/18 04:45 Ionized Calcium 3.9 mg/dL (4.8-5.6) L 01/29/18 06:00 Magnesium 1.80 mg/dL (1.7-2.3) 01/29/18 06:00 Total Bilirubin 0.50 mg/dL (0.1-1.2) 01/29/18 06:00 AST 21 units/L (5-40) 01/29/18 06:00 ALT 53 units/L (7-56) 01/29/18 06:00 Alkaline Phosphatase 88 units/L (35-129) 01/29/18 06:00 C-Reactive Protein 3.30 mg/dL (0.00-1.30) H 01/24/18 15:08 Total Protein 4.5 g/dL (6.3-8.2) L 01/29/18 06:00 Albumin 2.0 g/dL (3.9-5) L 01/29/18 06:00 Albumin/Globulin Ratio 0.8 % 01/29/18 06:00 Serotonin Release Assay See scanned report 01/20/18 11:03 Random Vancomycin 19.8 ug/mL (0-40.0) 01/27/18 05:20 ALISA Screen Negative (Negative) 01/20/18 Unknown Heparin-induced Plt Ab Negative (Negative) 01/20/18 11:03 UF Heparin High Dose 0 % Release 01/20/18 11:03 NEGRITA UFH Low Dose 0.1 0 % Release 01/20/18 11:03 NEGRITA UFH Low Dose 0.5 0 % Release 01/20/18 11:03 Complement C3 47 mg/dL (83-193) L 01/20/18 Unknown Complement C4 9 mg/dL (15-57) L 01/20/18 Unknown Hepatitis A IgM Ab Non-reactive (NonReactive) 01/20/18 07:00 Hep Bs Antigen Non-reactive (Negative) 01/20/18 07:00 Hep B Core IgM Ab Non-reactive (NonReactive) 01/20/18 07:00 Hepatitis C Antibody Non-reactive (NonReactive) 01/20/18 07:00 HIV 1&2 Antibody Rapid Non react (Non React) 01/20/18 Unknown HIV P24 Antigen Non react (Non React) 01/20/18 Unknown
--- NOTE | 2018-02-03 13:20 | Progress Note ---
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 Hyperkalemia History of cocaine abuse, Acute encephalopathy Lactic acidosis Thrombocytopenia - s/p left chest tube for spontaneous pneumothorax with small volume sero- sanguinous drainage; will plan to discontinue in am - continue seroquel re: delirium issues prior but taper to off - continue HD/UF per nephrology for toxin and volume clearance (M/W/F) - continue VTE prophylaxis with eliquis - trend CRP & lactate (Significantly improved) - tapered off steroids - continue stress ulcer prophylaxis - off antibiotics - continue supplemental oxygen to wean for oxygen saturations >90% - continue other care per attending/other consultants .... transfer to telemetry mo ...35' Subjective Date of service: 02/03/18 Principal diagnosis: Acute hypoxic respiratory failure, severe sepsis with shock , encephalopathy Interval history: Patient seen today for: Acute hypoxic respiratory failure, severe sepsis with shock, encephalopathy Seen and examined at bedside; 24-hour events reviewed; nursing and respiratory care staff consulted; no adverse overnight events reported to me; remains off MVS; doing well post-extubation; no N/V/F/C; tolerating HD/UF; no new issues otherwise Objective Vital Signs - 12hr 02/03/18 02/03/18 02/03/18 01:31 01:45 02:00 Temperature Pulse Rate 103 H 98 H 97 H Pulse Rate [ Bilateral Throughout] Respiratory 18 20 17 Rate Respiratory Rate [Bilateral Throughout] Respiratory Rate [denies] Blood Pressure 99/55 99/55 100/60 O2 Sat by Pulse 94 95 91 Oximetry 02/03/18 02/03/18 02/03/18 02:15 02:31 02:45 Temperature Pulse Rate 105 H 100 H 98 H Pulse Rate [ Bilateral Throughout] Respiratory 22 22 22 Rate Respiratory Rate [Bilateral Throughout] Respiratory Rate [denies] Blood Pressure 100/60 100/60 100/60 O2 Sat by Pulse 92 93 100 Oximetry 02/03/18 02/03/18 02/03/18 03:00 03:15 03:30 Temperature Pulse Rate 94 H 92 H 97 H Pulse Rate [ Bilateral Throughout] Respiratory 19 21 16 Rate Respiratory Rate [Bilateral Throughout] Respiratory Rate [denies] Blood Pressure 99/55 99/55 99/55 O2 Sat by Pulse 99 99 99 Oximetry 02/03/18 02/03/18 02/03/18 03:46 04:00 04:16 Temperature 99 F Pulse Rate 93 H 93 H 95 H Pulse Rate [ Bilateral Throughout] Respiratory 14 20 18 Rate Respiratory Rate [Bilateral Throughout] Respiratory Rate [denies] Blood Pressure 97/55 97/55 O2 Sat by Pulse 99 99 99 Oximetry 02/03/18 02/03/18 02/03/18 04:30 04:46 05:00 Temperature Pulse Rate 93 H 93 H 91 H Pulse Rate [ Bilateral Throughout] Respiratory 18 19 18 Rate Respiratory Rate [Bilateral Throughout] Respiratory Rate [denies] Blood Pressure 97/55 97/55 97/55 O2 Sat by Pulse 99 99 99 Oximetry 02/03/18 02/03/18 02/03/18 05:16 05:30 05:46 Temperature Pulse Rate 90 92 H 90 Pulse Rate [ Bilateral Throughout] Respiratory 17 17 18 Rate Respiratory Rate [Bilateral Throughout] Respiratory Rate [denies] Blood Pressure 104/58 104/58 104/58 O2 Sat by Pulse 99 99 99 Oximetry 02/03/18 02/03/18 02/03/18 06:00 07:00 08:00 Temperature Pulse Rate 87 94 H 84 Pulse Rate [ Bilateral Throughout] Respiratory 17 21 15 Rate Respiratory Rate [Bilateral Throughout] Respiratory Rate [denies] Blood Pressure 98/56 110/63 102/43 O2 Sat by Pulse 98 98 99 Oximetry 02/03/18 02/03/18 02/03/18 08:15 08:30 08:45 Temperature Pulse Rate 88 Pulse Rate [ 98 H 88 Bilateral Throughout] Respiratory Rate Respiratory 24 24 Rate [Bilateral Throughout] Respiratory Rate [denies] Blood Pressure 102/43 O2 Sat by Pulse 98 Oximetry 02/03/18 02/03/18 02/03/18 08:57 09:00 10:00 Temperature 98.7 F Pulse Rate 87 86 Pulse Rate [ Bilateral Throughout] Respiratory 24 25 H Rate Respiratory Rate [Bilateral Throughout] Respiratory 27 H Rate [denies] Blood Pressure 112/50 103/49 O2 Sat by Pulse 99 99 Oximetry 02/03/18 02/03/18 02/03/18 11:00 11:49 12:40 Temperature 97.7 F Pulse Rate 82 84 Pulse Rate [ Bilateral Throughout] Respiratory 24 Rate Respiratory Rate [Bilateral Throughout] Respiratory Rate [denies] Blood Pressure 111/56 112/56 O2 Sat by Pulse 100 99 Oximetry Constitutional: no acute distress Eyes: non-icteric ENT: oropharynx moist, other (mallampatti 3) Neck: supple, no lymphadenopathy, no JVD, other (no thyromegaly) Effort: mildly labored Ascultation: Bilateral: diminished breath sounds, rales Percussion: Bilateral: not dull Cardiovascular: regular rate and rhythm, other (no rubs or murmurs) Gastrointestinal: normoactive bowel sounds, soft, non-tender, non-distended, other (no [place] HSM) Integumentary: normal Extremities: no cyanosis, no edema, pink and warm, pulses normal Neurologic: normal mental status, non-focal exam (grossly), pupils equal and round, CN II-XII normal, motor strength normal and Psychiatric: mood appropriate, affect normal CBC and BMP: 02/12/18 06:09 02/14/18 06:04 ABG, PT/INR, D-dimer: ABG POC ABG pH 7.456 (7.35-7.45) H 01/30/18 04:47 POC ABG pCO2 36.5 (35-45) 01/30/18 04:47 POC ABG pO2 82 (80-105) 01/30/18 04:47 POC ABG HCO3 25.7 01/30/18 04:47 POC ABG Total CO2 27 01/30/18 04:47 POC ABG O2 Sat 97 01/30/18 04:47 PT/INR, D-dimer PT 17.5 Sec. (12.2-14.9) H 01/20/18 07:00 INR 1.35 (0.87-1.13) H 01/20/18 07:00 Abnormal lab findings: Abnormal Labs 01/17/18 01/17/18 01/17/18 15:25 16:15 16:48 WBC RBC Hgb Hct MCH RDW Plt Count Lymph % (Auto) [place] % (Auto) Lymph # [place] # Seg Neutrophils % Seg Neuts % (Manual) Lymphocytes % (Manual) Monocytes % (Manual) Nucleated RBC % Seg Neutrophils # Seg Neutrophils # Man Lymphocytes # (Manual) Monocytes # (Manual) PT INR POC ABG pH 7.099 L POC ABG pCO2 58.9 H POC ABG pO2 149 H VBG pH Sodium Potassium Chloride Carbon Dioxide BUN Creatinine Glucose POC Glucose < 40 L 121 H Hemoglobin A1c Lactic Acid Calcium Ionized Calcium Total Bilirubin AST ALT Alkaline Phosphatase C-Reactive Protein Total Protein Albumin Complement C3 Complement C4 01/17/18 01/17/18 01/17/18 16:54 16:54 16:54 WBC RBC Hgb Hct MCH RDW Plt Count Lymph % (Auto) [place] % (Auto) Lymph # [place] # Seg Neutrophils % Seg Neuts % (Manual) 72.0 H Lymphocytes % (Manual) 3.0 L Monocytes % (Manual) Nucleated RBC % Seg Neutrophils # Seg Neutrophils # Man Lymphocytes # (Manual) 0.2 L Monocytes # (Manual) PT 18.5 H INR 1.45 H POC ABG pH POC ABG pCO2 POC ABG pO2 VBG pH Sodium 136 L Potassium Chloride 97.8 L Carbon Dioxide 16 L BUN 43 H Creatinine 3.3 H Glucose 121 H POC Glucose Hemoglobin A1c Lactic Acid Calcium 6.7 L Ionized Calcium Total Bilirubin AST ALT Alkaline Phosphatase C-Reactive Protein Total Protein 4.4 L Albumin 2.3 L Complement C3 Complement C4 01/17/18 01/17/18 01/17/18 16:54 16:54 17:11 WBC RBC Hgb Hct MCH RDW Plt Count Lymph % (Auto) [place] % (Auto) Lymph # [place] # Seg Neutrophils % Seg Neuts % (Manual) Lymphocytes % (Manual) Monocytes % (Manual) Nucleated RBC % Seg Neutrophils # Seg Neutrophils # Man Lymphocytes # (Manual) Monocytes # (Manual) PT INR POC ABG pH POC ABG pCO2 POC ABG pO2 VBG pH 7.273 L Sodium Potassium Chloride Carbon Dioxide BUN Creatinine Glucose POC Glucose Hemoglobin A1c Lactic Acid 4.70 H* 4.30 H* Calcium Ionized Calcium Total Bilirubin AST ALT Alkaline Phosphatase C-Reactive Protein Total Protein Albumin Complement C3 Complement C4 01/17/18 01/17/18 01/17/18 18:02 18:15 19:21 WBC RBC Hgb Hct MCH RDW Plt Count Lymph % (Auto) [place] % (Auto) Lymph # [place] # Seg Neutrophils % Seg Neuts % (Manual) Lymphocytes % (Manual) Monocytes % (Manual) Nucleated RBC % Seg Neutrophils # Seg Neutrophils # Man Lymphocytes # (Manual) Monocytes # (Manual) PT INR POC ABG pH 7.177 L POC ABG pCO2 POC ABG pO2 VBG pH Sodium Potassium Chloride Carbon Dioxide BUN Creatinine Glucose POC Glucose < 40 L Hemoglobin A1c Lactic Acid 3.00 H* Calcium Ionized Calcium Total Bilirubin AST ALT Alkaline Phosphatase C-Reactive Protein Total Protein Albumin Complement C3 Complement C4 01/17/18 01/17/18 01/17/18 22:36 22:36 23:16 WBC RBC Hgb Hct MCH RDW Plt Count Lymph % (Auto) [place] % (Auto) Lymph # [place] # Seg Neutrophils % Seg Neuts % (Manual) Lymphocytes % (Manual) Monocytes % (Manual) Nucleated RBC % Seg Neutrophils # Seg Neutrophils # Man Lymphocytes # (Manual) Monocytes # (Manual) PT INR POC ABG pH 7.112 L POC ABG pCO2 50.1 H POC ABG pO2 50 L VBG pH Sodium Potassium Chloride Carbon Dioxide BUN Creatinine Glucose POC Glucose Hemoglobin A1c 9.0 H Lactic Acid 5.50 H* Calcium Ionized Calcium Total Bilirubin AST ALT Alkaline Phosphatase C-Reactive Protein Total Protein Albumin Complement C3 Complement C4 01/18/18 01/18/18 01/18/18 01:26 03:21 03:21 WBC RBC Hgb Hct MCH RDW Plt Count Lymph % (Auto) [place] % (Auto) Lymph # [place] # Seg Neutrophils % Seg Neuts % (Manual) 27.0 L Lymphocytes % (Manual) 3.0 L Monocytes % (Manual) 14.0 H Nucleated RBC % Seg Neutrophils # Seg Neutrophils # Man Lymphocytes # (Manual) 0.3 L Monocytes # (Manual) 1.4 H PT INR POC ABG pH POC ABG pCO2 POC ABG pO2 VBG pH Sodium Potassium Chloride Carbon Dioxide BUN Creatinine Glucose POC Glucose 107 H Hemoglobin A1c Lactic Acid 8.00 H* Calcium Ionized Calcium Total Bilirubin AST ALT Alkaline Phosphatase C-Reactive Protein Total Protein Albumin Complement C3 Complement C4 01/18/18 01/18/18 01/18/18 03:21 04:40 05:07 WBC RBC Hgb Hct MCH RDW Plt Count Lymph % (Auto) [place] % (Auto) Lymph # [place] # Seg Neutrophils % Seg Neuts % (Manual) Lymphocytes % (Manual) Monocytes % (Manual) Nucleated RBC % Seg Neutrophils # Seg Neutrophils # Man Lymphocytes # (Manual) Monocytes # (Manual) PT INR POC ABG pH 7.093 L POC ABG pCO2 31.5 L POC ABG pO2 77 L VBG pH Sodium Potassium Chloride 96.9 L Carbon Dioxide 14 L BUN 47 H Creatinine 3.4 H Glucose POC Glucose Hemoglobin A1c Lactic Acid 11.10 H* Calcium 6.4 L Ionized Calcium Total Bilirubin AST 47 H ALT Alkaline Phosphatase C-Reactive Protein Total Protein 4.3 L Albumin 2.4 L Complement C3 Complement C4 01/18/18 01/18/18 01/18/18 06:29 07:06 11:44 WBC RBC Hgb Hct MCH RDW Plt Count Lymph % (Auto) [place] % (Auto) Lymph # [place] # Seg Neutrophils % Seg Neuts % (Manual) Lymphocytes % (Manual) Monocytes % (Manual) Nucleated RBC % Seg Neutrophils # Seg Neutrophils # Man Lymphocytes # (Manual) Monocytes # (Manual) PT INR POC ABG pH POC ABG pCO2 POC ABG pO2 VBG pH Sodium Potassium Chloride Carbon Dioxide BUN Creatinine Glucose POC Glucose 47 L 149 H < 40 L Hemoglobin A1c Lactic Acid Calcium Ionized Calcium Total Bilirubin AST ALT Alkaline Phosphatase C-Reactive Protein Total Protein Albumin Complement C3 Complement C4 01/18/18 01/18/18 01/18/18 11:46 14:15 18:01 WBC RBC Hgb Hct MCH RDW Plt Count Lymph % (Auto) [place] % (Auto) Lymph # [place] # Seg Neutrophils % Seg Neuts % (Manual) Lymphocytes % (Manual) Monocytes % (Manual) Nucleated RBC % Seg Neutrophils # Seg Neutrophils # Man Lymphocytes # (Manual) Monocytes # (Manual) PT INR POC ABG pH POC ABG pCO2 POC ABG pO2 VBG pH Sodium Potassium Chloride Carbon Dioxide BUN Creatinine Glucose POC Glucose 116 H < 40 L Hemoglobin A1c Lactic Acid 10.00 H* Calcium Ionized Calcium Total Bilirubin AST ALT Alkaline Phosphatase C-Reactive Protein Total Protein Albumin Complement C3 Complement C4 01/18/18 01/18/18 01/18/18 18:02 23:25 23:27 WBC RBC Hgb Hct MCH RDW Plt Count Lymph % (Auto) [place] % (Auto) Lymph # [place] # Seg Neutrophils % Seg Neuts % (Manual) Lymphocytes % (Manual) Monocytes % (Manual) Nucleated RBC % Seg Neutrophils # Seg Neutrophils # Man Lymphocytes # (Manual) Monocytes # (Manual) PT INR POC ABG pH POC ABG pCO2 POC ABG pO2 VBG pH Sodium Potassium Chloride Carbon Dioxide BUN Creatinine Glucose POC Glucose 136 H < 40 L < 40 L Hemoglobin A1c Lactic Acid Calcium Ionized Calcium Total Bilirubin AST ALT Alkaline Phosphatase C-Reactive Protein Total Protein Albumin Complement C3 Complement C4 01/19/18 01/19/18 01/19/18 04:02 06:50 06:50 WBC 18.5 H RBC Hgb Hct MCH RDW Plt Count 136 L Lymph % (Auto) [place] % (Auto) Lymph # [place] # Seg Neutrophils % Seg Neuts % (Manual) 86.0 H Lymphocytes % (Manual) 4.0 L Monocytes % (Manual) Nucleated RBC % Seg Neutrophils # Seg Neutrophils # Man 15.9 H Lymphocytes # (Manual) 0.7 L Monocytes # (Manual) 1.1 H PT 21.3 H INR 1.73 H POC ABG pH POC ABG pCO2 28.3 L POC ABG pO2 57 L VBG pH Sodium Potassium Chloride Carbon Dioxide BUN Creatinine Glucose POC Glucose Hemoglobin A1c Lactic Acid Calcium Ionized Calcium Total Bilirubin AST ALT Alkaline Phosphatase C-Reactive Protein Total Protein Albumin Complement C3 Complement C4 01/19/18 01/19/18 01/19/18 06:50 08:45 11:17 WBC RBC Hgb Hct MCH RDW Plt Count Lymph % (Auto) [place] % (Auto) Lymph # [place] # Seg Neutrophils % Seg Neuts % (Manual) Lymphocytes % (Manual) Monocytes % (Manual) Nucleated RBC % Seg Neutrophils # Seg Neutrophils # Man Lymphocytes # (Manual) Monocytes # (Manual) PT INR POC ABG pH POC ABG pCO2 POC ABG pO2 VBG pH Sodium 135 L Potassium Chloride 92.8 L Carbon Dioxide 19 L BUN 31 H Creatinine 2.6 H Glucose POC Glucose 110 H Hemoglobin A1c Lactic Acid 7.90 H* Calcium 7.1 L Ionized Calcium Total Bilirubin 1.60 H AST 2526 H ALT 1187 H Alkaline Phosphatase 133 H C-Reactive Protein Total Protein 4.8 L Albumin 2.0 L Complement C3 Complement C4 01/19/18 01/19/18 01/19/18 11:31 22:12 23:34 WBC RBC Hgb Hct MCH RDW Plt Count Lymph % (Auto) [place] % (Auto) Lymph # [place] # Seg Neutrophils % Seg Neuts % (Manual) Lymphocytes % (Manual) Monocytes % (Manual) Nucleated RBC % Seg Neutrophils # Seg Neutrophils # Man Lymphocytes # (Manual) Monocytes # (Manual) PT INR POC ABG pH POC ABG pCO2 31.6 L POC ABG pO2 59 L VBG pH Sodium Potassium Chloride Carbon Dioxide BUN Creatinine Glucose POC Glucose 131 H 53 L Hemoglobin A1c Lactic Acid Calcium Ionized Calcium Total Bilirubin AST ALT Alkaline Phosphatase C-Reactive Protein Total Protein Albumin Complement C3 Complement C4 01/20/18 01/20/18 01/20/18 05:18 05:18 05:19 WBC 19.7 H RBC Hgb Hct MCH 27 L RDW Plt Count 84 L Lymph % (Auto) [place] % (Auto) Lymph # [place] # Seg Neutrophils % Seg Neuts % (Manual) 84.0 H Lymphocytes % (Manual) 2.0 L Monocytes % (Manual) 8.0 H Nucleated RBC % Seg Neutrophils # Seg Neutrophils # Man 16.5 H Lymphocytes # (Manual) 0.4 L Monocytes # (Manual) 1.6 H PT INR POC ABG pH POC ABG pCO2 POC ABG pO2 VBG pH Sodium 136 L Potassium Chloride 96.9 L Carbon Dioxide 17 L BUN 65 H Creatinine 4.1 H D Glucose 104 H POC Glucose 125 H Hemoglobin A1c Lactic Acid Calcium 7.1 L Ionized Calcium Total Bilirubin 1.60 H AST 1702 H ALT 1141 H Alkaline Phosphatase 172 H C-Reactive Protein Total Protein 5.0 L Albumin 1.7 L Complement C3 Complement C4 01/20/18 01/20/18 01/20/18 07:00 11:48 13:54 WBC RBC Hgb Hct MCH RDW Plt Count Lymph % (Auto) [place] % (Auto) Lymph # [place] # Seg Neutrophils % Seg Neuts % (Manual) Lymphocytes % (Manual) Monocytes % (Manual) Nucleated RBC % Seg Neutrophils # Seg Neutrophils # Man Lymphocytes # (Manual) Monocytes # (Manual) PT 17.5 H INR 1.35 H POC ABG pH POC ABG pCO2 POC ABG pO2 VBG pH Sodium Potassium Chloride Carbon Dioxide BUN Creatinine Glucose POC Glucose 109 H Hemoglobin A1c Lactic Acid Calcium Ionized Calcium Total Bilirubin AST ALT Alkaline Phosphatase C-Reactive Protein 37.50 H Total Protein Albumin Complement C3 Complement C4 01/20/18 01/20/18 01/20/18 17:28 17:51 20:50 WBC RBC Hgb Hct MCH RDW Plt Count Lymph % (Auto) [place] % (Auto) Lymph # [place] # Seg Neutrophils % Seg Neuts % (Manual) Lymphocytes % (Manual) Monocytes % (Manual) Nucleated RBC % Seg Neutrophils # Seg Neutrophils # Man Lymphocytes # (Manual) Monocytes # (Manual) PT INR POC ABG pH POC ABG pCO2 POC ABG pO2 VBG pH Sodium Potassium Chloride Carbon Dioxide BUN Creatinine Glucose POC Glucose 140 H Hemoglobin A1c Lactic Acid 2.70 H* 2.30 H* Calcium Ionized Calcium Total Bilirubin AST ALT Alkaline Phosphatase C-Reactive Protein Total Protein Albumin Complement C3 Complement C4 01/20/18 01/20/18 01/20/18 23:55 Unknown Unknown WBC RBC Hgb Hct MCH RDW Plt Count Lymph % (Auto) [place] % (Auto) Lymph # [place] # Seg Neutrophils % Seg Neuts % (Manual) Lymphocytes % (Manual) Monocytes % (Manual) Nucleated RBC % Seg Neutrophils # Seg Neutrophils # Man Lymphocytes # (Manual) Monocytes # (Manual) PT INR POC ABG pH POC ABG pCO2 POC ABG pO2 VBG pH Sodium Potassium Chloride Carbon Dioxide BUN Creatinine Glucose POC Glucose 149 H Hemoglobin A1c Lactic Acid 2.50 H* Calcium Ionized Calcium Total Bilirubin AST ALT Alkaline Phosphatase C-Reactive Protein Total Protein Albumin Complement C3 47 L Complement C4 01/20/18 01/21/18 01/21/18 Unknown 00:12 04:27 WBC RBC Hgb Hct MCH RDW Plt Count Lymph % (Auto) [place] % (Auto) Lymph # [place] # Seg Neutrophils % Seg Neuts % (Manual) Lymphocytes % (Manual) Monocytes % (Manual) Nucleated RBC % Seg Neutrophils # Seg Neutrophils # Man Lymphocytes # (Manual) Monocytes # (Manual) PT INR POC ABG pH POC ABG pCO2 33.8 L POC ABG pO2 72 L VBG pH Sodium Potassium Chloride Carbon Dioxide BUN Creatinine Glucose POC Glucose 134 H Hemoglobin A1c Lactic Acid Calcium Ionized Calcium Total Bilirubin AST ALT Alkaline Phosphatase C-Reactive Protein Total Protein Albumin Complement C3 Complement C4 9 L 01/21/18 01/21/18 01/21/18 05:00 05:00 05:00 WBC 21.7 H RBC Hgb Hct MCH 27 L RDW Plt Count 67 L Lymph % (Auto) [place] % (Auto) Lymph # [place] # Seg Neutrophils % Seg Neuts % (Manual) 71.0 H Lymphocytes % (Manual) 9.0 L Monocytes % (Manual) Nucleated RBC % 4.0 H Seg Neutrophils # Seg Neutrophils # Man 15.4 H Lymphocytes # (Manual) Monocytes # (Manual) PT INR POC ABG pH POC ABG pCO2 POC ABG pO2 VBG pH Sodium Potassium Chloride Carbon Dioxide 21 L BUN 71 H Creatinine 4.1 H Glucose 149 H POC Glucose Hemoglobin A1c Lactic Acid 2.10 H* Calcium 7.5 L Ionized Calcium Total Bilirubin AST 494 H ALT 780 H Alkaline Phosphatase 151 H C-Reactive Protein Total Protein 4.9 L Albumin 1.9 L Complement C3 Complement C4 01/21/18 01/21/18 01/21/18 05:18 12:20 18:07 WBC RBC Hgb Hct MCH RDW Plt Count Lymph % (Auto) [place] % (Auto) Lymph # [place] # Seg Neutrophils % Seg Neuts % (Manual) Lymphocytes % (Manual) Monocytes % (Manual) Nucleated RBC % Seg Neutrophils # Seg Neutrophils # Man Lymphocytes # (Manual) Monocytes # (Manual) PT INR POC ABG pH POC ABG pCO2 POC ABG pO2 VBG pH Sodium Potassium Chloride Carbon Dioxide BUN Creatinine Glucose POC Glucose 132 H 158 H 143 H Hemoglobin A1c Lactic Acid Calcium Ionized Calcium Total Bilirubin AST ALT Alkaline Phosphatase C-Reactive Protein Total Protein Albumin Complement C3 Complement C4 01/21/18 01/22/18 01/22/18 23:40 03:48 04:10 WBC 24.9 H RBC Hgb Hct MCH 27 L RDW Plt Count 80 L Lymph % (Auto) [place] % (Auto) Lymph # [place] # Seg Neutrophils % Seg Neuts % (Manual) Lymphocytes % (Manual) Monocytes % (Manual) Nucleated RBC % Seg Neutrophils # Seg Neutrophils # Man Lymphocytes # (Manual) Monocytes # (Manual) PT INR POC ABG pH POC ABG pCO2 POC ABG pO2 65 L VBG pH Sodium Potassium Chloride Carbon Dioxide BUN Creatinine Glucose POC Glucose 136 H Hemoglobin A1c Lactic Acid Calcium Ionized Calcium Total Bilirubin AST ALT Alkaline Phosphatase C-Reactive Protein Total Protein Albumin Complement C3 Complement C4 01/22/18 01/22/18 01/22/18 04:10 05:56 11:30 WBC RBC Hgb Hct MCH RDW Plt Count Lymph % (Auto) [place] % (Auto) Lymph # [place] # Seg Neutrophils % Seg Neuts % (Manual) Lymphocytes % (Manual) Monocytes % (Manual) Nucleated RBC % Seg Neutrophils # Seg Neutrophils # Man Lymphocytes # (Manual) Monocytes # (Manual) PT INR POC ABG pH POC ABG pCO2 POC ABG pO2 VBG pH Sodium Potassium Chloride 97.7 L Carbon Dioxide BUN 72 H Creatinine 3.6 H Glucose 145 H POC Glucose 139 H 156 H Hemoglobin A1c Lactic Acid Calcium 7.3 L Ionized Calcium Total Bilirubin AST 146 H ALT 547 H Alkaline Phosphatase C-Reactive Protein Total Protein 5.2 L Albumin 2.3 L Complement C3 Complement C4 01/22/18 01/23/18 01/23/18 17:41 00:00 04:39 WBC RBC Hgb Hct MCH RDW Plt Count Lymph % (Auto) [place] % (Auto) Lymph # [place] # Seg Neutrophils % Seg Neuts % (Manual) Lymphocytes % (Manual) Monocytes % (Manual) Nucleated RBC % Seg Neutrophils # Seg Neutrophils # Man Lymphocytes # (Manual) Monocytes # (Manual) PT INR POC ABG pH POC ABG pCO2 31.9 L POC ABG pO2 62 L VBG pH Sodium Potassium Chloride Carbon Dioxide BUN Creatinine Glucose POC Glucose 185 H 150 H Hemoglobin A1c Lactic Acid Calcium Ionized Calcium Total Bilirubin AST ALT Alkaline Phosphatase C-Reactive Protein Total Protein Albumin Complement C3 Complement C4 01/23/18 01/23/18 01/23/18 05:24 11:38 14:20 WBC RBC Hgb Hct MCH RDW Plt Count Lymph % (Auto) [place] % (Auto) Lymph # [place] # Seg Neutrophils % Seg Neuts % (Manual) Lymphocytes % (Manual) Monocytes % (Manual) Nucleated RBC % Seg Neutrophils # Seg Neutrophils # Man Lymphocytes # (Manual) Monocytes # (Manual) PT INR POC ABG pH POC ABG pCO2 31.4 L POC ABG pO2 55 L VBG pH Sodium Potassium Chloride Carbon Dioxide BUN Creatinine Glucose POC Glucose 215 H 182 H Hemoglobin A1c Lactic Acid Calcium Ionized Calcium Total Bilirubin AST ALT Alkaline Phosphatase C-Reactive Protein Total Protein Albumin Complement C3 Complement C4 01/23/18 01/24/18 01/24/18 17:26 00:10 03:40 WBC 34.5 H RBC Hgb Hct MCH 27 L RDW Plt Count 130 L Lymph % (Auto) [place] % (Auto) Lymph # [place] # Seg Neutrophils % Seg Neuts % (Manual) Lymphocytes % (Manual) Monocytes % (Manual) Nucleated RBC % Seg Neutrophils # Seg Neutrophils # Man Lymphocytes # (Manual) Monocytes # (Manual) PT INR POC ABG pH POC ABG pCO2 POC ABG pO2 VBG pH Sodium Potassium Chloride Carbon Dioxide BUN Creatinine Glucose POC Glucose 252 H 225 H Hemoglobin A1c Lactic Acid Calcium Ionized Calcium Total Bilirubin AST ALT Alkaline Phosphatase C-Reactive Protein Total Protein Albumin Complement C3 Complement C4 01/24/18 01/24/18 01/24/18 03:40 06:06 11:36 WBC RBC Hgb Hct MCH RDW Plt Count Lymph % (Auto) [place] % (Auto) Lymph # [place] # Seg Neutrophils % Seg Neuts % (Manual) Lymphocytes % (Manual) Monocytes % (Manual) Nucleated RBC % Seg Neutrophils # Seg Neutrophils # Man Lymphocytes # (Manual) Monocytes # (Manual) PT INR POC ABG pH POC ABG pCO2 POC ABG pO2 VBG pH Sodium Potassium 5.7 H D Chloride 95.6 L Carbon Dioxide 20 L BUN 96 H Creatinine 4.2 H Glucose 166 H POC Glucose 162 H 160 H Hemoglobin A1c Lactic Acid Calcium 7.3 L Ionized Calcium Total Bilirubin AST 52 H ALT 235 H Alkaline Phosphatase C-Reactive Protein Total Protein 5.1 L Albumin 2.5 L Complement C3 Complement C4 01/24/18 01/24/18 01/25/18 15:08 17:32 00:04 WBC RBC Hgb Hct MCH RDW Plt Count Lymph % (Auto) [place] % (Auto) Lymph # [place] # Seg Neutrophils % Seg Neuts % (Manual) Lymphocytes % (Manual) Monocytes % (Manual) Nucleated RBC % Seg Neutrophils # Seg Neutrophils # Man Lymphocytes # (Manual) Monocytes # (Manual) PT INR POC ABG pH POC ABG pCO2 POC ABG pO2 VBG pH Sodium Potassium Chloride Carbon Dioxide BUN Creatinine Glucose POC Glucose 160 H 169 H Hemoglobin A1c Lactic Acid Calcium Ionized Calcium Total Bilirubin AST ALT Alkaline Phosphatase C-Reactive Protein 3.30 H Total Protein Albumin Complement C3 Complement C4 01/25/18 01/25/18 01/25/18 04:34 05:25 11:46 WBC RBC Hgb Hct MCH RDW Plt Count Lymph % (Auto) [place] % (Auto) Lymph # [place] # Seg Neutrophils % Seg Neuts % (Manual) Lymphocytes % (Manual) Monocytes % (Manual) Nucleated RBC % Seg Neutrophils # Seg Neutrophils # Man Lymphocytes # (Manual) Monocytes # (Manual) PT INR POC ABG pH 7.342 L POC ABG pCO2 48.7 H POC ABG pO2 VBG pH Sodium Potassium Chloride Carbon Dioxide BUN Creatinine Glucose POC Glucose 133 H 121 H Hemoglobin A1c Lactic Acid Calcium Ionized Calcium Total Bilirubin AST ALT Alkaline Phosphatase C-Reactive Protein Total Protein Albumin Complement C3 Complement C4 01/25/18 01/25/18 01/26/18 17:42 23:50 04:13 WBC RBC Hgb Hct MCH RDW Plt Count Lymph % (Auto) [place] % (Auto) Lymph # [place] # Seg Neutrophils % Seg Neuts % (Manual) Lymphocytes % (Manual) Monocytes % (Manual) Nucleated RBC % Seg Neutrophils # Seg Neutrophils # Man Lymphocytes # (Manual) Monocytes # (Manual) PT INR POC ABG pH POC ABG pCO2 POC ABG pO2 70 L VBG pH Sodium Potassium Chloride Carbon Dioxide BUN Creatinine Glucose POC Glucose 150 H 149 H Hemoglobin A1c Lactic Acid Calcium Ionized Calcium Total Bilirubin AST ALT Alkaline Phosphatase C-Reactive Protein Total Protein Albumin Complement C3 Complement C4 01/26/18 01/26/18 01/26/18 05:25 06:20 06:20 WBC 21.0 H RBC Hgb Hct MCH RDW Plt Count Lymph % (Auto) [place] % (Auto) Lymph # [place] # Seg Neutrophils % Seg Neuts % (Manual) 95.0 H Lymphocytes % (Manual) 1.0 L Monocytes % (Manual) Nucleated RBC % Seg Neutrophils # Seg Neutrophils # Man 20.0 H Lymphocytes # (Manual) 0.2 L Monocytes # (Manual) PT INR POC ABG pH POC ABG pCO2 POC ABG pO2 VBG pH Sodium Potassium 5.9 H Chloride 95.7 L Carbon Dioxide BUN 102 H Creatinine 4.6 H Glucose POC Glucose 107 H Hemoglobin A1c Lactic Acid Calcium 6.6 L Ionized Calcium Total Bilirubin AST ALT Alkaline Phosphatase C-Reactive Protein Total Protein Albumin Complement C3 Complement C4 01/26/18 01/26/18 01/27/18 12:19 18:09 00:17 WBC RBC Hgb Hct MCH RDW Plt Count Lymph % (Auto) [place] % (Auto) Lymph # [place] # Seg Neutrophils % Seg Neuts % (Manual) Lymphocytes % (Manual) Monocytes % (Manual) Nucleated RBC % Seg Neutrophils # Seg Neutrophils # Man Lymphocytes # (Manual) Monocytes # (Manual) PT INR POC ABG pH POC ABG pCO2 POC ABG pO2 VBG pH Sodium Potassium Chloride Carbon Dioxide BUN Creatinine Glucose POC Glucose 151 H 110 H 159 H Hemoglobin A1c Lactic Acid Calcium Ionized Calcium Total Bilirubin AST ALT Alkaline Phosphatase C-Reactive Protein Total Protein Albumin Complement C3 Complement C4 01/27/18 01/27/18 01/27/18 05:20 05:20 05:43 WBC 23.3 H RBC Hgb Hct MCH 27 L RDW Plt Count Lymph % (Auto) [place] % (Auto) Lymph # [place] # Seg Neutrophils % Seg Neuts % (Manual) 97.0 H Lymphocytes % (Manual) 0 L Monocytes % (Manual) Nucleated RBC % Seg Neutrophils # Seg Neutrophils # Man 22.6 H Lymphocytes # (Manual) 0.0 L Monocytes # (Manual) PT INR POC ABG pH POC ABG pCO2 POC ABG pO2 VBG pH Sodium Potassium 5.7 H Chloride 93.9 L Carbon Dioxide 21 L BUN 121 H Creatinine 5.2 H Glucose 131 H POC Glucose 121 H Hemoglobin A1c Lactic Acid Calcium 6.1 L Ionized Calcium Total Bilirubin AST ALT Alkaline Phosphatase C-Reactive Protein Total Protein Albumin Complement C3 Complement C4 01/27/18 01/27/18 01/28/18 12:16 17:32 00:05 WBC RBC Hgb Hct MCH RDW Plt Count Lymph % (Auto) [place] % (Auto) Lymph # [place] # Seg Neutrophils % Seg Neuts % (Manual) Lymphocytes % (Manual) Monocytes % (Manual) Nucleated RBC % Seg Neutrophils # Seg Neutrophils # Man Lymphocytes # (Manual) Monocytes # (Manual) PT INR POC ABG pH POC ABG pCO2 POC ABG pO2 VBG pH Sodium Potassium Chloride Carbon Dioxide BUN Creatinine Glucose POC Glucose 161 H 146 H 128 H Hemoglobin A1c Lactic Acid Calcium Ionized Calcium Total Bilirubin AST ALT Alkaline Phosphatase C-Reactive Protein Total Protein Albumin Complement C3 Complement C4 01/28/18 01/28/18 01/28/18 04:24 05:43 06:30 WBC 24.8 H RBC Hgb Hct MCH RDW Plt Count Lymph % (Auto) [place] % (Auto) Lymph # [place] # Seg Neutrophils % Seg Neuts % (Manual) 91.0 H Lymphocytes % (Manual) 4.0 L Monocytes % (Manual) Nucleated RBC % Seg Neutrophils # Seg Neutrophils # Man 22.6 H Lymphocytes # (Manual) 1.0 L Monocytes # (Manual) 1.0 H PT INR POC ABG pH POC ABG pCO2 POC ABG pO2 77 L VBG pH Sodium Potassium Chloride Carbon Dioxide BUN Creatinine Glucose POC Glucose 137 H Hemoglobin A1c Lactic Acid Calcium Ionized Calcium Total Bilirubin AST ALT Alkaline Phosphatase C-Reactive Protein Total Protein Albumin Complement C3 Complement C4 01/28/18 01/28/18 01/28/18 06:30 11:30 18:08 WBC RBC Hgb Hct MCH RDW Plt Count Lymph % (Auto) [place] % (Auto) Lymph # [place] # Seg Neutrophils % Seg Neuts % (Manual) Lymphocytes % (Manual) Monocytes % (Manual) Nucleated RBC % Seg Neutrophils # Seg Neutrophils # Man Lymphocytes # (Manual) Monocytes # (Manual) PT INR POC ABG pH POC ABG pCO2 POC ABG pO2 VBG pH Sodium Potassium Chloride 95.2 L Carbon Dioxide BUN 70 H Creatinine 3.7 H Glucose 135 H POC Glucose 183 H 129 H Hemoglobin A1c Lactic Acid Calcium 6.4 L Ionized Calcium Total Bilirubin AST ALT Alkaline Phosphatase C-Reactive Protein Total Protein Albumin Complement C3 Complement C4 01/29/18 01/29/18 01/29/18 00:00 05:50 06:00 WBC 15.8 H RBC 3.37 L Hgb 9.1 L Hct 28.6 L MCH 27 L RDW Plt Count Lymph % (Auto) [place] % (Auto) Lymph # [place] # Seg Neutrophils % Seg Neuts % (Manual) 87.0 H Lymphocytes % (Manual) 7.0 L Monocytes % (Manual) Nucleated RBC % Seg Neutrophils # Seg Neutrophils # Man 13.7 H Lymphocytes # (Manual) 1.1 L Monocytes # (Manual) PT INR POC ABG pH POC ABG pCO2 POC ABG pO2 VBG pH Sodium Potassium Chloride Carbon Dioxide BUN Creatinine Glucose POC Glucose 111 H 120 H Hemoglobin A1c Lactic Acid Calcium Ionized Calcium Total Bilirubin AST ALT Alkaline Phosphatase C-Reactive Protein Total Protein Albumin Complement C3 Complement C4 01/29/18 01/29/18 01/29/18 06:00 06:00 12:29 WBC RBC Hgb Hct MCH RDW Plt Count Lymph % (Auto) [place] % (Auto) Lymph # [place] # Seg Neutrophils % Seg Neuts % (Manual) Lymphocytes % (Manual) Monocytes % (Manual) Nucleated RBC % Seg Neutrophils # Seg Neutrophils # Man Lymphocytes # (Manual) Monocytes # (Manual) PT INR POC ABG pH POC ABG pCO2 POC ABG pO2 VBG pH Sodium 136 L Potassium Chloride 95.4 L Carbon Dioxide BUN 94 H Creatinine 4.2 H Glucose 120 H POC Glucose 134 H Hemoglobin A1c Lactic Acid Calcium 6.5 L Ionized Calcium 3.9 L Total Bilirubin AST ALT Alkaline Phosphatase C-Reactive Protein Total Protein 4.5 L Albumin 2.0 L Complement C3 Complement C4 01/29/18 01/30/18 01/30/18 18:32 00:12 04:47 WBC RBC Hgb Hct MCH RDW Plt Count Lymph % (Auto) [place] % (Auto) Lymph # [place] # Seg Neutrophils % Seg Neuts % (Manual) Lymphocytes % (Manual) Monocytes % (Manual) Nucleated RBC % Seg Neutrophils # Seg Neutrophils # Man Lymphocytes # (Manual) Monocytes # (Manual) PT INR POC ABG pH 7.456 H POC ABG pCO2 POC ABG pO2 VBG pH Sodium Potassium Chloride Carbon Dioxide BUN Creatinine Glucose POC Glucose 158 H 155 H Hemoglobin A1c Lactic Acid Calcium Ionized Calcium Total Bilirubin AST ALT Alkaline Phosphatase C-Reactive Protein Total Protein Albumin Complement C3 Complement C4 01/30/18 01/30/18 01/30/18 12:06 17:46 Unknown WBC 12.8 H RBC 3.09 L Hgb 8.4 L Hct 26.2 L MCH 27 L RDW Plt Count Lymph % (Auto) [place] % (Auto) Lymph # [place] # Seg Neutrophils % Seg Neuts % (Manual) 95.0 H Lymphocytes % (Manual) 1.0 L Monocytes % (Manual) Nucleated RBC % Seg Neutrophils # Seg Neutrophils # Man 12.2 H Lymphocytes # (Manual) 0.1 L Monocytes # (Manual) PT INR POC ABG pH POC ABG pCO2 POC ABG pO2 VBG pH Sodium Potassium Chloride Carbon Dioxide BUN Creatinine Glucose POC Glucose 117 H 166 H Hemoglobin A1c Lactic Acid Calcium Ionized Calcium Total Bilirubin AST ALT Alkaline Phosphatase C-Reactive Protein Total Protein Albumin Complement C3 Complement C4 01/30/18 01/31/18 01/31/18 Unknown 00:04 04:50 WBC 13.6 H RBC 3.53 L Hgb 9.8 L Hct 30.0 L MCH RDW 15.4 H Plt Count Lymph % (Auto) 3.6 L [place] % (Auto) 8.7 H Lymph # 0.5 L [place] # 1.2 H Seg Neutrophils % 87.1 H Seg Neuts % (Manual) Lymphocytes % (Manual) Monocytes % (Manual) Nucleated RBC % Seg Neutrophils # 11.8 H Seg Neutrophils # Man Lymphocytes # (Manual) Monocytes # (Manual) PT INR POC ABG pH POC ABG pCO2 POC ABG pO2 VBG pH Sodium Potassium Chloride Carbon Dioxide BUN 52 H Creatinine 2.9 H Glucose 105 H POC Glucose 155 H Hemoglobin A1c Lactic Acid Calcium 6.7 L Ionized Calcium Total Bilirubin AST ALT Alkaline Phosphatase C-Reactive Protein Total Protein Albumin Complement C3 Complement C4 01/31/18 01/31/18 01/31/18 04:50 17:08 23:38 WBC RBC Hgb Hct MCH RDW Plt Count Lymph % (Auto) [place] % (Auto) Lymph # [place] # Seg Neutrophils % Seg Neuts % (Manual) Lymphocytes % (Manual) Monocytes % (Manual) Nucleated RBC % Seg Neutrophils # Seg Neutrophils # Man Lymphocytes # (Manual) Monocytes # (Manual) PT INR POC ABG pH POC ABG pCO2 POC ABG pO2 VBG pH Sodium Potassium Chloride Carbon Dioxide BUN 70 H Creatinine 3.3 H Glucose 102 H POC Glucose 106 H 136 H Hemoglobin A1c Lactic Acid Calcium 7.1 L Ionized Calcium Total Bilirubin AST ALT Alkaline Phosphatase C-Reactive Protein Total Protein Albumin Complement C3 Complement C4 02/01/18 02/01/18 02/01/18 04:00 04:00 05:25 WBC RBC 3.16 L Hgb 8.7 L Hct 27.5 L MCH RDW Plt Count Lymph % (Auto) 6.4 L [place] % (Auto) 10.2 H Lymph # 0.7 L [place] # 1.1 H Seg Neutrophils % 81.7 H Seg Neuts % (Manual) Lymphocytes % (Manual) Monocytes % (Manual) Nucleated RBC % Seg Neutrophils # 8.6 H Seg Neutrophils # Man Lymphocytes # (Manual) Monocytes # (Manual) PT INR POC ABG pH POC ABG pCO2 POC ABG pO2 VBG pH Sodium Potassium 3.4 L Chloride Carbon Dioxide 31 H BUN 42 H Creatinine 2.2 H Glucose 101 H POC Glucose 163 H Hemoglobin A1c Lactic Acid Calcium 7.1 L Ionized Calcium Total Bilirubin AST ALT Alkaline Phosphatase C-Reactive Protein Total Protein Albumin Complement C3 Complement C4 02/01/18 02/01/18 02/01/18 11:54 18:21 23:34 WBC RBC Hgb Hct MCH RDW Plt Count Lymph % (Auto) [place] % (Auto) Lymph # [place] # Seg Neutrophils % Seg Neuts % (Manual) Lymphocytes % (Manual) Monocytes % (Manual) Nucleated RBC % Seg Neutrophils # Seg Neutrophils # Man Lymphocytes # (Manual) Monocytes # (Manual) PT INR POC ABG pH POC ABG pCO2 POC ABG pO2 VBG pH Sodium Potassium Chloride Carbon Dioxide BUN Creatinine Glucose POC Glucose 123 H 157 H 114 H Hemoglobin A1c Lactic Acid Calcium Ionized Calcium Total Bilirubin AST ALT Alkaline Phosphatase C-Reactive Protein Total Protein Albumin Complement C3 Complement C4 02/02/18 02/02/18 02/02/18 03:30 05:45 17:27 WBC RBC Hgb Hct MCH RDW Plt Count Lymph % (Auto) [place] % (Auto) Lymph # [place] # Seg Neutrophils % Seg Neuts % (Manual) Lymphocytes % (Manual) Monocytes % (Manual) Nucleated RBC % Seg Neutrophils # Seg Neutrophils # Man Lymphocytes # (Manual) Monocytes # (Manual) PT INR POC ABG pH POC ABG pCO2 POC ABG pO2 VBG pH Sodium Potassium 3.3 L Chloride 97.8 L Carbon Dioxide BUN 58 H Creatinine 2.7 H Glucose 111 H POC Glucose 110 H 125 H Hemoglobin A1c Lactic Acid Calcium 7.1 L Ionized Calcium Total Bilirubin AST ALT Alkaline Phosphatase C-Reactive Protein Total Protein Albumin Complement C3 Complement C4 02/02/18 02/03/18 02/03/18 23:34 04:45 05:38 WBC RBC Hgb Hct MCH RDW Plt Count Lymph % (Auto) [place] % (Auto) Lymph # [place] # Seg Neutrophils % Seg Neuts % (Manual) Lymphocytes % (Manual) Monocytes % (Manual) Nucleated RBC % Seg Neutrophils # Seg Neutrophils # Man Lymphocytes # (Manual) Monocytes # (Manual) PT INR POC ABG pH POC ABG pCO2 POC ABG pO2 VBG pH Sodium Potassium Chloride Carbon Dioxide BUN 72 H Creatinine 3.2 H Glucose POC Glucose 153 H 111 H Hemoglobin A1c Lactic Acid Calcium 7.6 L Ionized Calcium Total Bilirubin AST ALT Alkaline Phosphatase C-Reactive Protein Total Protein Albumin Complement C3 Complement C4 02/03/18 11:36 WBC RBC Hgb Hct MCH RDW Plt Count Lymph % (Auto) [place] % (Auto) Lymph # [place] # Seg Neutrophils % Seg Neuts % (Manual) Lymphocytes % (Manual) Monocytes % (Manual) Nucleated RBC % Seg Neutrophils # Seg Neutrophils # Man Lymphocytes # (Manual) Monocytes # (Manual) PT INR POC ABG pH POC ABG pCO2 POC ABG pO2 VBG pH Sodium Potassium Chloride Carbon Dioxide BUN Creatinine Glucose POC Glucose 108 H Hemoglobin A1c Lactic Acid Calcium Ionized Calcium Total Bilirubin AST ALT Alkaline Phosphatase C-Reactive Protein Total Protein Albumin Complement C3 Complement C4 Chest x-ray: image reviewed (left chest tube) Allied health notes reviewed: nursing
--- NOTE | 2018-02-03 14:14 | XRay Report ---
AP CHEST: HISTORY: Left IJ Vas-Cath placement A left IJ Vas-Cath has been inserted which terminates in the lower SVC. There is no evidence for pneumothorax. The endotracheal tube, nasogastric tube, right IJ venous catheter and pacemaker device are unchanged. Heart size is at the upper limits of normal. The right lung is clear. There is decreased hazy infiltrate or atelectasis in the lingula on today's exam. Small left pleural effusion is noted. The left chest tube remains in similar position. IMPRESSION: Left IJ Vas-Cath placement as described. No pneumothorax.
--- NOTE | 2018-02-03 15:25 | Cat Scan Report ---
CT CHEST WITH CONTRAST: HISTORY: Bloody drainage from left chest tube. COMPARISON: CT chest without contrast dated 01/25/18. TECHNIQUE: Helical CT in 1.25mm intervals following IV contrast. Sagittal and coronal reformatted images. FINDINGS: Thyroid gland: Not included. Tracheobronchial tree: Normal. An endotracheal tube terminates just below the clavicles. Esophagus: Normal. A nasogastric tube is in place. Heart: Normal. Pericardium: Normal. Mediastinum: Normal. Lung Cortes: A left thymic chest tube terminates in the anterior left pleural space near the lingula. There is decreased atelectasis throughout the left lower lobe. A cavitary lesion in the left lower lobe is now evident measuring approximately 5.2 x 5.8 cm in axial dimensions. This may represent a pneumatocele. Cavitating mass or fungal lesion is thought less likely. Minor segmental atelectasis in the right lower lobe is stable. The remainder of the lungs are well-aerated. Pleural Spaces: Small layering right pleural effusion is relatively stable. Small to medium left pleural effusion has increased slightly. No pneumothorax is visualized. Musculoskeletal: Within normal limits. IMPRESSION: The left chest tube terminates in the anterior left pleural space adjacent to lingula. There is decreased left lower lobe atelectasis although a cavitating lesion in the left lower lobe is now visualized most consistent with a pneumatocele. Bilateral pleural effusions as described.
[2018-02-03] MEDS: HEPARIN IV PRN (21:14)
[2018-02-03] MEDS: TYLENOL FEEDTUBE PRN (21:20)
[2018-02-03] MEDS: DILAUDID IV PRN (21:21)
[2018-02-04] MEDS: DUONEB *Not for PRN Use IH SCH ×4 (02:24→20:17)
[2018-02-04 05:11] LABS: Calcium 7.3 mg/dL (8.4-10.2)
[2018-02-04] MEDS: HEPARIN SUB-Q SCH ×3 (05:36→21:39)
[2018-02-04] MEDS: HumaLOG SUB-Q SCH ×4 (05:36→23:35)
[2018-02-04] MEDS: PEPCID PO SCH (09:19)
[2018-02-04] MEDS: SODIUM CHLORIDE FLUSH SYRINGE 10 ML IV SCH (09:19)
--- NOTE | 2018-02-04 10:01 | Progress Note ---
Assessment and Plan Impression: * JANESSA-with ATN * VAP * Pl Effusion * Cardiomyopathy * Anemia * Sepsis * Drug abuse * DM type 2 * hyperkalemia Plan: * HD q MWF and prn * k noted, kayexalate today * low k bath with hd * monitory for renal recovery * strict i/os * avoid nephrotoxins * uf as tolerated with HD * daily lytes * IV abx per primary team Subjective Date of service: 02/04/18 Principal diagnosis: Acute hypoxic respiratory failure, severe sepsis with shock , encephalopathy Interval history: resting well in bed today Objective - Exam Narrative Exam: HEENT: Oral mucosa moist no pallor or icterus, orally intubated Neck: Supple no JVD Chest: bilateral coarse breath sounds diminished at lung bases CVS: Regular rate and rhythm S1 and S2 heard Abdomen: Soft nontender no suprapubic masses no organomegaly appreciable Extremity: Dry skin less than 1+ peripheral edema Musculoskeletal: No joint effusion noted in knees and ankle Neurological: encephalopathic Dermatology: No petechial rashes Psychiatry: No evidence of any agitation and aggression noted - Vital Signs Vital signs: Vital Signs - 12hr 02/03/18 02/03/18 02/04/18 23:00 23:06 00:00 Temperature Pulse Rate 83 89 Pulse Rate [ Bilateral Throughout] Pulse Rate [ From Monitor] Pulse Rate [ Left Throughout ] Pulse Rate [ None] Respiratory 17 17 17 Rate Respiratory Rate [Bilateral Throughout] Respiratory Rate [Left Throughout] Blood Pressure 97/44 97/44 O2 Sat by Pulse 100 100 Oximetry 02/04/18 02/04/18 02/04/18 00:03 00:06 00:07 Temperature Pulse Rate 100 H 78 80 Pulse Rate [ Bilateral Throughout] Pulse Rate [ From Monitor] Pulse Rate [ Left Throughout ] Pulse Rate [ None] Respiratory 14 16 Rate Respiratory Rate [Bilateral Throughout] Respiratory Rate [Left Throughout] Blood Pressure 84/43 85/43 94/50 O2 Sat by Pulse 100 100 100 Oximetry 02/04/18 02/04/18 02/04/18 00:08 00:10 00:12 Temperature Pulse Rate 81 82 82 Pulse Rate [ Bilateral Throughout] Pulse Rate [ From Monitor] Pulse Rate [ Left Throughout ] Pulse Rate [ None] Respiratory 16 15 16 Rate Respiratory Rate [Bilateral Throughout] Respiratory Rate [Left Throughout] Blood Pressure 94/50 94/50 94/50 O2 Sat by Pulse 100 100 100 Oximetry 02/04/18 02/04/18 02/04/18 00:14 00:18 00:20 Temperature Pulse Rate 81 79 82 Pulse Rate [ Bilateral Throughout] Pulse Rate [ From Monitor] Pulse Rate [ Left Throughout ] Pulse Rate [ 82 None] Respiratory 16 16 16 Rate Respiratory Rate [Bilateral Throughout] Respiratory Rate [Left Throughout] Blood Pressure 94/50 87/48 87/48 O2 Sat by Pulse 100 100 100 Oximetry 02/04/18 02/04/18 02/04/18 00:22 00:24 00:26 Temperature Pulse Rate 78 88 84 Pulse Rate [ Bilateral Throughout] Pulse Rate [ From Monitor] Pulse Rate [ Left Throughout ] Pulse Rate [ None] Respiratory 16 15 16 Rate Respiratory Rate [Bilateral Throughout] Respiratory Rate [Left Throughout] Blood Pressure 87/48 87/48 94/50 O2 Sat by Pulse 100 100 100 Oximetry 02/04/18 02/04/18 02/04/18 00:27 00:30 00:32 Temperature 98.7 F Pulse Rate 81 83 Pulse Rate [ Bilateral Throughout] Pulse Rate [ From Monitor] Pulse Rate [ Left Throughout ] Pulse Rate [ None] Respiratory 15 15 Rate Respiratory Rate [Bilateral Throughout] Respiratory Rate [Left Throughout] Blood Pressure 104/53 104/55 110/58 O2 Sat by Pulse 100 100 Oximetry 02/04/18 02/04/18 02/04/18 00:46 01:00 01:16 Temperature Pulse Rate 81 86 85 Pulse Rate [ Bilateral Throughout] Pulse Rate [ From Monitor] Pulse Rate [ Left Throughout ] Pulse Rate [ None] Respiratory 16 17 17 Rate Respiratory Rate [Bilateral Throughout] Respiratory Rate [Left Throughout] Blood Pressure 104/55 110/62 110/62 O2 Sat by Pulse 100 100 98 Oximetry 02/04/18 02/04/18 02/04/18 01:30 01:42 02:00 Temperature Pulse Rate 84 Pulse Rate [ 82 Bilateral Throughout] Pulse Rate [ From Monitor] Pulse Rate [ Left Throughout ] Pulse Rate [ 80 77 None] Respiratory 17 17 17 Rate Respiratory 16 Rate [Bilateral Throughout] Respiratory Rate [Left Throughout] Blood Pressure 110/62 92/55 97/56 O2 Sat by Pulse 98 98 98 Oximetry 02/04/18 02/04/18 02/04/18 02:25 02:30 02:46 Temperature Pulse Rate 77 78 Pulse Rate [ 80 Bilateral Throughout] Pulse Rate [ From Monitor] Pulse Rate [ Left Throughout ] Pulse Rate [ None] Respiratory 14 16 Rate Respiratory 14 Rate [Bilateral Throughout] Respiratory Rate [Left Throughout] Blood Pressure 106/60 106/60 O2 Sat by Pulse 100 100 Oximetry 02/04/18 02/04/18 02/04/18 03:00 03:16 03:30 Temperature Pulse Rate 78 75 77 Pulse Rate [ Bilateral Throughout] Pulse Rate [ From Monitor] Pulse Rate [ Left Throughout ] Pulse Rate [ None] Respiratory 17 17 16 Rate Respiratory Rate [Bilateral Throughout] Respiratory Rate [Left Throughout] Blood Pressure 101/55 101/55 105/55 O2 Sat by Pulse 100 100 100 Oximetry 02/04/18 02/04/18 02/04/18 03:46 03:50 04:00 Temperature 99.9 F H Pulse Rate 78 80 Pulse Rate [ Bilateral Throughout] Pulse Rate [ From Monitor] Pulse Rate [ Left Throughout ] Pulse Rate [ None] Respiratory 17 21 Rate Respiratory Rate [Bilateral Throughout] Respiratory Rate [Left Throughout] Blood Pressure 105/55 112/62 O2 Sat by Pulse 100 100 Oximetry 02/04/18 02/04/18 02/04/18 04:16 04:30 04:46 Temperature Pulse Rate 88 82 81 Pulse Rate [ Bilateral Throughout] Pulse Rate [ From Monitor] Pulse Rate [ Left Throughout ] Pulse Rate [ None] Respiratory 17 16 20 Rate Respiratory Rate [Bilateral Throughout] Respiratory Rate [Left Throughout] Blood Pressure 112/62 122/64 122/64 O2 Sat by Pulse 98 98 94 Oximetry 02/04/18 02/04/18 02/04/18 04:55 05:00 05:16 Temperature Pulse Rate 83 86 81 Pulse Rate [ Bilateral Throughout] Pulse Rate [ From Monitor] Pulse Rate [ Left Throughout ] Pulse Rate [ None] Respiratory 19 18 Rate Respiratory Rate [Bilateral Throughout] Respiratory Rate [Left Throughout] Blood Pressure 122/64 123/66 123/66 O2 Sat by Pulse 96 94 93 Oximetry 02/04/18 02/04/18 02/04/18 05:30 05:46 06:00 Temperature Pulse Rate 82 87 84 Pulse Rate [ Bilateral Throughout] Pulse Rate [ From Monitor] Pulse Rate [ Left Throughout ] Pulse Rate [ None] Respiratory 17 20 17 Rate Respiratory Rate [Bilateral Throughout] Respiratory Rate [Left Throughout] Blood Pressure 118/63 118/63 113/58 O2 Sat by Pulse 95 96 97 Oximetry 02/04/18 02/04/18 02/04/18 06:16 06:30 06:46 Temperature Pulse Rate 85 85 83 Pulse Rate [ Bilateral Throughout] Pulse Rate [ From Monitor] Pulse Rate [ Left Throughout ] Pulse Rate [ None] Respiratory 17 16 17 Rate Respiratory Rate [Bilateral Throughout] Respiratory Rate [Left Throughout] Blood Pressure 113/58 119/62 119/62 O2 Sat by Pulse 99 99 99 Oximetry 02/04/18 02/04/18 02/04/18 07:00 07:16 07:30 Temperature Pulse Rate 79 84 82 Pulse Rate [ Bilateral Throughout] Pulse Rate [ From Monitor] Pulse Rate [ Left Throughout ] Pulse Rate [ None] Respiratory 19 17 24 Rate Respiratory Rate [Bilateral Throughout] Respiratory Rate [Left Throughout] Blood Pressure 110/59 110/59 126/63 O2 Sat by Pulse 99 99 100 Oximetry 02/04/18 02/04/18 02/04/18 07:33 07:34 07:46 Temperature Pulse Rate 82 81 Pulse Rate [ 85 Bilateral Throughout] Pulse Rate [ From Monitor] Pulse Rate [ Left Throughout ] Pulse Rate [ None] Respiratory 18 Rate Respiratory 20 Rate [Bilateral Throughout] Respiratory Rate [Left Throughout] Blood Pressure 126/63 126/63 O2 Sat by Pulse 100 100 Oximetry 02/04/18 02/04/18 02/04/18 07:54 08:00 08:10 Temperature 99.3 F Pulse Rate 90 Pulse Rate [ Bilateral Throughout] Pulse Rate [ 82 From Monitor] Pulse Rate [ 81 Left Throughout ] Pulse Rate [ None] Respiratory 20 22 Rate Respiratory Rate [Bilateral Throughout] Respiratory 19 Rate [Left Throughout] Blood Pressure 119/62 O2 Sat by Pulse 99 99 Oximetry 02/04/18 02/04/18 02/04/18 08:16 08:30 08:46 Temperature Pulse Rate 88 86 87 Pulse Rate [ Bilateral Throughout] Pulse Rate [ From Monitor] Pulse Rate [ Left Throughout ] Pulse Rate [ None] Respiratory 17 17 17 Rate Respiratory Rate [Bilateral Throughout] Respiratory Rate [Left Throughout] Blood Pressure 119/62 119/59 119/59 O2 Sat by Pulse 100 99 99 Oximetry 02/04/18 09:00 Temperature Pulse Rate 82 Pulse Rate [ Bilateral Throughout] Pulse Rate [ From Monitor] Pulse Rate [ Left Throughout ] Pulse Rate [ None] Respiratory 21 Rate Respiratory Rate [Bilateral Throughout] Respiratory Rate [Left Throughout] Blood Pressure 117/61 O2 Sat by Pulse 98 Oximetry - Lab 02/01/18 04:00 02/04/18 04:06 Most recent lab results Calcium 7.3 mg/dL (8.4-10.2) L 02/04/18 04:06 Magnesium 1.80 mg/dL (1.7-2.3) 01/29/18 06:00
--- NOTE | 2018-02-04 12:08 | Progress Note ---
Assessment and Plan Assessment and plan: Acute hypercapnic respiratory failure -Likely from drug abuse and aspiration -VAP bundle -on vent support -Lung protective strategies, ARDS-net protocol Left Pneumothorax -s/p chest tube. Patient with bloody drainage today. -? Hemothorax -Follow up CT chest today. I discussed with Dr. Suazo. Severe Sepsis with septic shock likely from aspiration pneumonia-POA -Shock resolved -abx on hold per ID -Leukocytosis is improving -Left lobar infiltrate on admission -?pelvic abscess -IR consulted for evaluation for possible drainage and cx Penicillin allergy DM uncontrolled -Continue insulin therapy Shock required pressors -Resolved -likely from sepsis vs cardiogenic -off pressors but required 3 pressors on admission Bilateral upper and lower extremity ischemia/necrosis Etiology secondary to sepsis and previous pressors. Vascular follow up. Decompensated acute CHF - EF 30-35% on echo - cardiology following History of pacemaker insertion in 2008 post PCI History of CAD s/p PCI in 2008 [place] Etiology likely due to ATN from severe sepsis - monitor renal function, now on HD - HD per renal service. Vascular surgery placed left IJ Vas-Cath today - Avoid nephrotoxins, nephrology consulted History of cocaine and methamphetamine abuse Acute encephalopathy - Multifactorial, likely from drug abuse vs severe sepsis versus anoxic encephalopathy - CT head no acute finding - Pacemaker precludes getting MRI brain Ischemic hepatitis Elevated LFTs, etiology secondary to shock liver syndrome - Likely from severe hypotension causing shock liver - Continue to monitor Coagulopathy Etiology due to severe sepsis and abnormal liver function Thrombocytopenia Etiology likely secondary to sepsis - Montior Disposition: Continue ICU monitoring The high probability of a clinically significant, sudden or life threatening deterioration of the [multiorgan] system(s) required my full and direct attention, intervention and personal management. The aggregate critical care time was [32] minutes. This time is in addition to time spent performing reported procedures but includes the following: [x] Data Review and interpretation [x] Patient assessment and monitoring of vital signs [x] Documentation [x] Medication orders and management History Interval history: 62-year-old admitted with hx of htn, polysubstance drug abuse per family, admitted after she was found unresponsive found in the bathroom of a friends home, noted with severe lactic acidosis, hypotensive on vasopressors, hypercapenic respiratory failure requiring intubation . Hospitalist Physical - Constitutional Vitals: Temp Pulse Resp BP Pulse Ox 99.3 F 85 19 116/58 100 02/04/18 08:00 02/04/18 10:30 02/04/18 10:30 02/04/18 10:30 02/04/18 10:30 General appearance: Present: other (intubated) - EENT Eyes: Present: PERRL, EOM intact ENT: hearing intact, clear oral mucosa, dentition normal - Neck Neck: Present: supple, normal ROM - Respiratory Respiratory effort: normal Respiratory: bilateral: CTA - Cardiovascular Rhythm: regular Heart Sounds: Present: S1 & S2. Absent: gallop, rub - Extremities Extremities: no ischemia, No edema, Full ROM - Abdominal General gastrointestinal: soft, non-tender, non-distended, normal bowel sounds - Integumentary Integumentary: Present: clear, warm, dry - Neurologic Neurologic: CNII-XII intact, moves all extremities Results - Labs CBC & Chem 7: 02/01/18 04:00 02/04/18 04:06 Labs: Laboratory Last Values WBC 10.5 K/mm3 (4.5-11.0) 02/01/18 04:00 RBC 3.16 M/mm3 (3.65-5.03) L 02/01/18 04:00 Hgb 8.7 gm/dl (10.1-14.3) L 02/01/18 04:00 Hct 27.5 % (30.3-42.9) L 02/01/18 04:00 MCV 87 fl (79-97) 02/01/18 04:00 MCH 28 pg (28-32) 02/01/18 04:00 MCHC 32 % (30-34) 02/01/18 04:00 RDW 15.2 % (13.2-15.2) 02/01/18 04:00 Plt Count 257 K/mm3 (140-440) 02/01/18 04:00 Lymph % (Auto) 6.4 % (13.4-35.0) L 02/01/18 04:00 [place] % (Auto) 10.2 % (0.0-7.3) H 02/01/18 04:00 Eos % (Auto) 1.3 % (0.0-4.3) 02/01/18 04:00 Baso % (Auto) 0.4 % (0.0-1.8) 02/01/18 04:00 Lymph # 0.7 K/mm3 (1.2-5.4) L 02/01/18 04:00 [place] # 1.1 K/mm3 (0.0-0.8) H 02/01/18 04:00 Eos # 0.1 K/mm3 (0.0-0.4) 02/01/18 04:00 Baso # 0.0 K/mm3 (0.0-0.1) 02/01/18 04:00 Add Manual Diff Complete 01/30/18 Unknown Total Counted 100 01/30/18 Unknown Seg Neutrophils % 81.7 % (40.0-70.0) H 02/01/18 04:00 Seg Neuts % (Manual) 95.0 % (40.0-70.0) H 01/30/18 Unknown Band Neutrophils % 2.0 % 01/30/18 Unknown Lymphocytes % (Manual) 1.0 % (13.4-35.0) L 01/30/18 Unknown Reactive Lymphs % (Man) 0 % 01/30/18 Unknown Monocytes % (Manual) 2.0 % (0.0-7.3) 01/30/18 Unknown Eosinophils % (Manual) 0 % (0.0-4.3) 01/30/18 Unknown Basophils % (Manual) 0 % (0.0-1.8) 01/30/18 Unknown Metamyelocytes % 0 % 01/30/18 Unknown Myelocytes % 0 % 01/30/18 Unknown Promyelocytes % 0 % 01/30/18 Unknown Blast Cells % 0 % 01/30/18 Unknown Nucleated RBC % Not Reportable 01/30/18 Unknown Seg Neutrophils # 8.6 K/mm3 (1.8-7.7) H 02/01/18 04:00 Seg Neutrophils # Man 12.2 K/mm3 (1.8-7.7) H 01/30/18 Unknown Band Neutrophils # 0.3 K/mm3 01/30/18 Unknown Lymphocytes # (Manual) 0.1 K/mm3 (1.2-5.4) L 01/30/18 Unknown Abs React Lymphs (Man) 0.0 K/mm3 01/30/18 Unknown Monocytes # (Manual) 0.3 K/mm3 (0.0-0.8) 01/30/18 Unknown Eosinophils # (Manual) 0.0 K/mm3 (0.0-0.4) 01/30/18 Unknown Basophils # (Manual) 0.0 K/mm3 (0.0-0.1) 01/30/18 Unknown Metamyelocytes # 0.0 K/mm3 01/30/18 Unknown Myelocytes # 0.0 K/mm3 01/30/18 Unknown Promyelocytes # 0.0 K/mm3 01/30/18 Unknown Blast Cells # 0.0 K/mm3 01/30/18 Unknown WBC Morphology Not Reportable 01/30/18 Unknown Hypersegmented Neuts Not Reportable 01/30/18 Unknown Hyposegmented Neuts Not Reportable 01/30/18 Unknown Hypogranular Neuts Not Reportable 01/30/18 Unknown Smudge Cells Not Reportable 01/30/18 Unknown Toxic Granulation Not Reportable 01/30/18 Unknown Toxic Vacuolation Not Reportable 01/30/18 Unknown Dohle Bodies Not Reportable 01/30/18 Unknown Pelger-Huet Anomaly Not Reportable 01/30/18 Unknown Opal Rods Not Reportable 01/30/18 Unknown Platelet Estimate Consistent w auto 01/30/18 Unknown Clumped Platelets Not Reportable 01/30/18 Unknown Plt Clumps, EDTA Not Reportable 01/30/18 Unknown Large Platelets Not Reportable 01/30/18 Unknown Giant Platelets Not Reportable 01/30/18 Unknown Platelet Satelliting Not Reportable 01/30/18 Unknown Plt Morphology Comment Not Reportable 01/30/18 Unknown RBC Morphology Not Reportable 01/30/18 Unknown Dimorphic RBCs Not Reportable 01/30/18 Unknown Polychromasia Not Reportable 01/30/18 Unknown Hypochromasia 1+ 01/30/18 Unknown Poikilocytosis Not Reportable 01/30/18 Unknown Anisocytosis Not Reportable 01/30/18 Unknown Microcytosis Few 01/30/18 Unknown Macrocytosis Not Reportable 01/30/18 Unknown Spherocytes Not Reportable 01/30/18 Unknown Pappenheimer Bodies Not Reportable 01/30/18 Unknown Sickle Cells Not Reportable 01/30/18 Unknown Target Cells Not Reportable 01/30/18 Unknown Tear Drop Cells Not Reportable 01/30/18 Unknown Ovalocytes Not Reportable 01/30/18 Unknown Stomatocytes Few 01/30/18 Unknown Helmet Cells Not Reportable 01/30/18 Unknown Frankel-Aniwa Bodies Not Reportable 01/30/18 Unknown [place] Rings Not Reportable 01/30/18 Unknown [place] Cells Not Reportable 01/30/18 Unknown Bite Cells Not Reportable 01/30/18 Unknown Crenated Cell Not Reportable 01/30/18 Unknown Elliptocytes Not Reportable 01/30/18 Unknown Acanthocytes (Spur) Not Reportable 01/30/18 Unknown Rouleaux Not Reportable 01/30/18 Unknown Hemoglobin C Crystals Not Reportable 01/30/18 Unknown Schistocytes Not Reportable 01/30/18 Unknown Malaria parasites Not Reportable 01/30/18 Unknown Brock Bodies Not Reportable 01/30/18 Unknown Hem Pathologist Commnt No 01/30/18 Unknown PT 17.5 Sec. (12.2-14.9) H 01/20/18 07:00 INR 1.35 (0.87-1.13) H 01/20/18 07:00 Heparin Anti-Xa, Unfract Negative (Negative) 01/20/18 11:03 POC ABG pH 7.456 (7.35-7.45) H 01/30/18 04:47 POC ABG pCO2 36.5 (35-45) 01/30/18 04:47 POC ABG pO2 82 (80-105) 01/30/18 04:47 POC ABG HCO3 25.7 01/30/18 04:47 POC ABG Total CO2 27 01/30/18 04:47 POC ABG O2 Sat 97 01/30/18 04:47 POC ABG Base Excess 2 01/30/18 04:47 VBG pH 7.273 (7.320-7.420) L 01/17/18 16:54 FiO2 30 % 01/30/18 04:47 Sodium 136 mmol/L (137-145) L 02/04/18 04:06 Potassium 3.4 mmol/L (3.6-5.0) L 02/04/18 04:06 Chloride 96.7 mmol/L (98-107) L 02/04/18 04:06 Carbon Dioxide 27 mmol/L (22-30) 02/04/18 04:06 Anion Gap 16 mmol/L 02/04/18 04:06 BUN 42 mg/dL (7-17) H 02/04/18 04:06 Creatinine 1.9 mg/dL (0.7-1.2) H 02/04/18 04:06 Estimated GFR 27 ml/min 02/04/18 04:06 BUN/Creatinine Ratio 22 % 02/04/18 04:06 Glucose 90 mg/dL (65-100) 02/04/18 04:06 POC Glucose 119 (70-105) H 02/04/18 11:57 Hemoglobin A1c 9.0 % (4-6) H 01/17/18 22:36 Lactic Acid 1.40 mmol/L (0.7-2.0) 01/24/18 15:08 Calcium 7.3 mg/dL (8.4-10.2) L 02/04/18 04:06 Ionized Calcium 3.9 mg/dL (4.8-5.6) L 01/29/18 06:00 Magnesium 1.80 mg/dL (1.7-2.3) 01/29/18 06:00 Total Bilirubin 0.50 mg/dL (0.1-1.2) 01/29/18 06:00 AST 21 units/L (5-40) 01/29/18 06:00 ALT 53 units/L (7-56) 01/29/18 06:00 Alkaline Phosphatase 88 units/L (35-129) 01/29/18 06:00 C-Reactive Protein 3.30 mg/dL (0.00-1.30) H 01/24/18 15:08 Total Protein 4.5 g/dL (6.3-8.2) L 01/29/18 06:00 Albumin 2.0 g/dL (3.9-5) L 01/29/18 06:00 Albumin/Globulin Ratio 0.8 % 01/29/18 06:00 Serotonin Release Assay See scanned report 01/20/18 11:03 Random Vancomycin 19.8 ug/mL (0-40.0) 01/27/18 05:20 ALISA Screen Negative (Negative) 01/20/18 Unknown Heparin-induced Plt Ab Negative (Negative) 01/20/18 11:03 UF Heparin High Dose 0 % Release 01/20/18 11:03 NEGRITA UFH Low Dose 0.1 0 % Release 01/20/18 11:03 NEGRITA UFH Low Dose 0.5 0 % Release 01/20/18 11:03 Complement C3 47 mg/dL (83-193) L 01/20/18 Unknown Complement C4 9 mg/dL (15-57) L 01/20/18 Unknown Hepatitis A IgM Ab Non-reactive (NonReactive) 01/20/18 07:00 Hep Bs Antigen Non-reactive (Negative) 01/20/18 07:00 Hep B Core IgM Ab Non-reactive (NonReactive) 01/20/18 07:00 Hepatitis C Antibody Non-reactive (NonReactive) 01/20/18 07:00 HIV 1&2 Antibody Rapid Non react (Non React) 01/20/18 Unknown HIV P24 Antigen Non react (Non React) 01/20/18 Unknown
[2018-02-04] MEDS ORDERED: SIMPLE SYRUP FEEDTUBE PRN ×2 (14:45)
[2018-02-04] MEDS ORDERED: PANCREAZE DR 10,500 UNIT FEEDTUBE PRN (14:45)
[2018-02-04] MEDS ORDERED: SODIUM BICARBONATE FEEDTUBE PRN (14:45)
--- NOTE | 2018-02-04 14:46 | Progress Note ---
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 History of cocaine abuse, Acute encephalopathy-improving Left PTX, left pleural drain in place Thrombocytopenia-improving Pleural efffusion-improving Cardiomyopathy -Get weaning parameters, if acceptable will extubate Chest tube will be discontinued off she is weaned off mechanical ventilatory support Stop apixaban, resume heparin..HIT negative - VAP bundle addressed - HD/UF per nephrology for toxin and volume clearance - continue steroid taper - continue stress ulcer prophylaxis - continue supplemental oxygen to wean for oxygen saturations >90% - continue other care per attending/other consultants Subjective Date of service: 02/04/18 Principal diagnosis: Acute hypoxic respiratory failure, severe sepsis with shock , encephalopathy Interval history: Patient seen today for: Acute hypoxic respiratory failure, Left PTX, sepsis, aspiration pneumonia Seen and examined at bedside; 24-hour events reviewed; nursing and respiratory care staff consulted; no adverse overnight events reported to me; Tolerating PSV today,with minimal PS. Plan for T-piece trial Sleeping but rousable Vitals, labs, medications, chart reviewed. Objective - Exam Narrative Exam: HEENT: Oral mucosa moist no pallor or icterus, orally intubated Neck: Supple no JVD Chest: bilateral coarse breath sounds diminished at lung bases CVS: Regular rate and rhythm S1 and S2 heard Abdomen: Soft nontender no suprapubic masses no organomegaly appreciable Extremity: Dry skin less than 1+ peripheral edema Musculoskeletal: No joint effusion noted in knees and ankle Neurological: encephalopathic Dermatology: No petechial rashes Psychiatry: No evidence of any agitation and aggression noted Vital Signs - 12hr 02/04/18 02/04/18 02/04/18 03:00 03:16 03:30 Temperature Pulse Rate 78 75 77 Pulse Rate [ Bilateral Throughout] Pulse Rate [ From Monitor] Pulse Rate [ Left Throughout ] Respiratory 17 17 16 Rate Respiratory Rate [Bilateral Throughout] Respiratory Rate [Left Throughout] Blood Pressure 101/55 101/55 105/55 O2 Sat by Pulse 100 100 100 Oximetry 02/04/18 02/04/18 02/04/18 03:46 03:50 04:00 Temperature 99.9 F H Pulse Rate 78 80 Pulse Rate [ Bilateral Throughout] Pulse Rate [ From Monitor] Pulse Rate [ Left Throughout ] Respiratory 17 21 Rate Respiratory Rate [Bilateral Throughout] Respiratory Rate [Left Throughout] Blood Pressure 105/55 112/62 O2 Sat by Pulse 100 100 Oximetry 02/04/18 02/04/18 02/04/18 04:16 04:30 04:46 Temperature Pulse Rate 88 82 81 Pulse Rate [ Bilateral Throughout] Pulse Rate [ From Monitor] Pulse Rate [ Left Throughout ] Respiratory 17 16 20 Rate Respiratory Rate [Bilateral Throughout] Respiratory Rate [Left Throughout] Blood Pressure 112/62 122/64 122/64 O2 Sat by Pulse 98 98 94 Oximetry 02/04/18 02/04/18 02/04/18 04:55 05:00 05:16 Temperature Pulse Rate 83 86 81 Pulse Rate [ Bilateral Throughout] Pulse Rate [ From Monitor] Pulse Rate [ Left Throughout ] Respiratory 19 18 Rate Respiratory Rate [Bilateral Throughout] Respiratory Rate [Left Throughout] Blood Pressure 122/64 123/66 123/66 O2 Sat by Pulse 96 94 93 Oximetry 02/04/18 02/04/18 02/04/18 05:30 05:46 06:00 Temperature Pulse Rate 82 87 84 Pulse Rate [ Bilateral Throughout] Pulse Rate [ From Monitor] Pulse Rate [ Left Throughout ] Respiratory 17 20 17 Rate Respiratory Rate [Bilateral Throughout] Respiratory Rate [Left Throughout] Blood Pressure 118/63 118/63 113/58 O2 Sat by Pulse 95 96 97 Oximetry 02/04/18 02/04/18 02/04/18 06:16 06:30 06:46 Temperature Pulse Rate 85 85 83 Pulse Rate [ Bilateral Throughout] Pulse Rate [ From Monitor] Pulse Rate [ Left Throughout ] Respiratory 17 16 17 Rate Respiratory Rate [Bilateral Throughout] Respiratory Rate [Left Throughout] Blood Pressure 113/58 119/62 119/62 O2 Sat by Pulse 99 99 99 Oximetry 02/04/18 02/04/18 02/04/18 07:00 07:16 07:30 Temperature Pulse Rate 79 84 82 Pulse Rate [ Bilateral Throughout] Pulse Rate [ From Monitor] Pulse Rate [ Left Throughout ] Respiratory 19 17 24 Rate Respiratory Rate [Bilateral Throughout] Respiratory Rate [Left Throughout] Blood Pressure 110/59 110/59 126/63 O2 Sat by Pulse 99 99 100 Oximetry 02/04/18 02/04/18 02/04/18 07:33 07:34 07:46 Temperature Pulse Rate 82 81 Pulse Rate [ 85 Bilateral Throughout] Pulse Rate [ From Monitor] Pulse Rate [ Left Throughout ] Respiratory 18 Rate Respiratory 20 Rate [Bilateral Throughout] Respiratory Rate [Left Throughout] Blood Pressure 126/63 126/63 O2 Sat by Pulse 100 100 Oximetry 02/04/18 02/04/18 02/04/18 07:54 08:00 08:10 Temperature 99.3 F Pulse Rate 90 Pulse Rate [ Bilateral Throughout] Pulse Rate [ 82 From Monitor] Pulse Rate [ 81 Left Throughout ] Respiratory 20 22 Rate Respiratory Rate [Bilateral Throughout] Respiratory 19 Rate [Left Throughout] Blood Pressure 119/62 O2 Sat by Pulse 99 99 Oximetry 02/04/18 02/04/18 02/04/18 08:16 08:30 08:46 Temperature Pulse Rate 88 86 87 Pulse Rate [ Bilateral Throughout] Pulse Rate [ From Monitor] Pulse Rate [ Left Throughout ] Respiratory 17 17 17 Rate Respiratory Rate [Bilateral Throughout] Respiratory Rate [Left Throughout] Blood Pressure 119/62 119/59 119/59 O2 Sat by Pulse 100 99 99 Oximetry 02/04/18 02/04/18 02/04/18 09:00 09:16 09:30 Temperature Pulse Rate 82 83 83 Pulse Rate [ Bilateral Throughout] Pulse Rate [ From Monitor] Pulse Rate [ Left Throughout ] Respiratory 21 18 20 Rate Respiratory Rate [Bilateral Throughout] Respiratory Rate [Left Throughout] Blood Pressure 117/61 117/61 124/60 O2 Sat by Pulse 98 96 97 Oximetry 02/04/18 02/04/18 02/04/18 09:46 10:00 10:16 Temperature Pulse Rate 81 83 84 Pulse Rate [ Bilateral Throughout] Pulse Rate [ From Monitor] Pulse Rate [ Left Throughout ] Respiratory 19 20 19 Rate Respiratory Rate [Bilateral Throughout] Respiratory Rate [Left Throughout] Blood Pressure 124/60 117/59 117/59 O2 Sat by Pulse 99 100 100 Oximetry 02/04/18 02/04/18 02/04/18 10:20 10:30 10:46 Temperature Pulse Rate 85 83 Pulse Rate [ Bilateral Throughout] Pulse Rate [ 89 From Monitor] Pulse Rate [ Left Throughout ] Respiratory 18 19 19 Rate Respiratory Rate [Bilateral Throughout] Respiratory Rate [Left Throughout] Blood Pressure 116/58 116/58 O2 Sat by Pulse 100 100 100 Oximetry 02/04/18 02/04/18 02/04/18 11:00 11:16 11:30 Temperature Pulse Rate 87 81 84 Pulse Rate [ Bilateral Throughout] Pulse Rate [ From Monitor] Pulse Rate [ Left Throughout ] Respiratory 20 18 19 Rate Respiratory Rate [Bilateral Throughout] Respiratory Rate [Left Throughout] Blood Pressure 122/60 122/60 119/58 O2 Sat by Pulse 99 99 99 Oximetry 02/04/18 02/04/18 02/04/18 11:46 11:50 12:00 Temperature 99 F Pulse Rate 92 H 87 Pulse Rate [ Bilateral Throughout] Pulse Rate [ 87 From Monitor] Pulse Rate [ Left Throughout ] Respiratory 22 21 18 Rate Respiratory Rate [Bilateral Throughout] Respiratory Rate [Left Throughout] Blood Pressure 119/58 116/57 O2 Sat by Pulse 99 99 99 Oximetry 02/04/18 02/04/18 02/04/18 12:16 12:30 12:46 Temperature Pulse Rate 86 83 91 H Pulse Rate [ Bilateral Throughout] Pulse Rate [ From Monitor] Pulse Rate [ Left Throughout ] Respiratory 22 20 22 Rate Respiratory Rate [Bilateral Throughout] Respiratory Rate [Left Throughout] Blood Pressure 116/57 119/58 119/58 O2 Sat by Pulse 99 99 99 Oximetry 02/04/18 02/04/18 02/04/18 13:00 13:16 13:30 Temperature Pulse Rate 95 H 92 H 92 H Pulse Rate [ Bilateral Throughout] Pulse Rate [ From Monitor] Pulse Rate [ Left Throughout ] Respiratory 31 H 24 22 Rate Respiratory Rate [Bilateral Throughout] Respiratory Rate [Left Throughout] Blood Pressure 117/53 117/53 127/65 O2 Sat by Pulse 99 100 98 Oximetry 02/04/18 02/04/18 02/04/18 13:46 14:00 14:16 Temperature Pulse Rate 89 88 96 H Pulse Rate [ Bilateral Throughout] Pulse Rate [ From Monitor] Pulse Rate [ Left Throughout ] Respiratory 25 H 25 H 24 Rate Respiratory Rate [Bilateral Throughout] Respiratory Rate [Left Throughout] Blood Pressure 127/65 127/62 127/62 O2 Sat by Pulse 97 98 99 Oximetry Constitutional: no acute distress Eyes: non-icteric ENT: oropharynx moist, other (ETT 20 cm MARGOT and advanced to 23cm MARGOT) Neck: supple, no lymphadenopathy, no JVD Effort: mildly labored Ascultation: Bilateral: diminished breath sounds, rales Percussion: Bilateral: not dull Cardiovascular: regular rate and rhythm, other (no rubs or murmurs) Gastrointestinal: normoactive bowel sounds, soft, non-tender, non-distended, other (no [place] HSM) Integumentary: normal Extremities: no cyanosis, no edema, pink and warm, pulses normal Neurologic: non-focal exam (grossly), pupils equal and round, CN II-XII normal, motor strength normal and Psychiatric: other (calm) CBC and BMP: 02/08/18 08:16 02/08/18 08:16 ABG, PT/INR, D-dimer: ABG POC ABG pH 7.456 (7.35-7.45) H 01/30/18 04:47 POC ABG pCO2 36.5 (35-45) 01/30/18 04:47 POC ABG pO2 82 (80-105) 01/30/18 04:47 POC ABG HCO3 25.7 01/30/18 04:47 POC ABG Total CO2 27 01/30/18 04:47 POC ABG O2 Sat 97 01/30/18 04:47 PT/INR, D-dimer PT 17.5 Sec. (12.2-14.9) H 01/20/18 07:00 INR 1.35 (0.87-1.13) H 01/20/18 07:00 Abnormal lab findings: Abnormal Labs 01/17/18 01/17/18 01/17/18 15:25 16:15 16:48 WBC RBC Hgb Hct MCH RDW Plt Count Lymph % (Auto) [place] % (Auto) Lymph # [place] # Seg Neutrophils % Seg Neuts % (Manual) Lymphocytes % (Manual) Monocytes % (Manual) Nucleated RBC % Seg Neutrophils # Seg Neutrophils # Man Lymphocytes # (Manual) Monocytes # (Manual) PT INR POC ABG pH 7.099 L POC ABG pCO2 58.9 H POC ABG pO2 149 H VBG pH Sodium Potassium Chloride Carbon Dioxide BUN Creatinine Glucose POC Glucose < 40 L 121 H Hemoglobin A1c Lactic Acid Calcium Ionized Calcium Total Bilirubin AST ALT Alkaline Phosphatase C-Reactive Protein Total Protein Albumin Complement C3 Complement C4 01/17/18 01/17/18 01/17/18 16:54 16:54 16:54 WBC RBC Hgb Hct MCH RDW Plt Count Lymph % (Auto) [place] % (Auto) Lymph # [place] # Seg Neutrophils % Seg Neuts % (Manual) 72.0 H Lymphocytes % (Manual) 3.0 L Monocytes % (Manual) Nucleated RBC % Seg Neutrophils # Seg Neutrophils # Man Lymphocytes # (Manual) 0.2 L Monocytes # (Manual) PT 18.5 H INR 1.45 H POC ABG pH POC ABG pCO2 POC ABG pO2 VBG pH Sodium 136 L Potassium Chloride 97.8 L Carbon Dioxide 16 L BUN 43 H Creatinine 3.3 H Glucose 121 H POC Glucose Hemoglobin A1c Lactic Acid Calcium 6.7 L Ionized Calcium Total Bilirubin AST ALT Alkaline Phosphatase C-Reactive Protein Total Protein 4.4 L Albumin 2.3 L Complement C3 Complement C4 01/17/18 01/17/18 01/17/18 16:54 16:54 17:11 WBC RBC Hgb Hct MCH RDW Plt Count Lymph % (Auto) [place] % (Auto) Lymph # [place] # Seg Neutrophils % Seg Neuts % (Manual) Lymphocytes % (Manual) Monocytes % (Manual) Nucleated RBC % Seg Neutrophils # Seg Neutrophils # Man Lymphocytes # (Manual) Monocytes # (Manual) PT INR POC ABG pH POC ABG pCO2 POC ABG pO2 VBG pH 7.273 L Sodium Potassium Chloride Carbon Dioxide BUN Creatinine Glucose POC Glucose Hemoglobin A1c Lactic Acid 4.70 H* 4.30 H* Calcium Ionized Calcium Total Bilirubin AST ALT Alkaline Phosphatase C-Reactive Protein Total Protein Albumin Complement C3 Complement C4 01/17/18 01/17/18 01/17/18 18:02 18:15 19:21 WBC RBC Hgb Hct MCH RDW Plt Count Lymph % (Auto) [place] % (Auto) Lymph # [place] # Seg Neutrophils % Seg Neuts % (Manual) Lymphocytes % (Manual) Monocytes % (Manual) Nucleated RBC % Seg Neutrophils # Seg Neutrophils # Man Lymphocytes # (Manual) Monocytes # (Manual) PT INR POC ABG pH 7.177 L POC ABG pCO2 POC ABG pO2 VBG pH Sodium Potassium Chloride Carbon Dioxide BUN Creatinine Glucose POC Glucose < 40 L Hemoglobin A1c Lactic Acid 3.00 H* Calcium Ionized Calcium Total Bilirubin AST ALT Alkaline Phosphatase C-Reactive Protein Total Protein Albumin Complement C3 Complement C4 01/17/18 01/17/18 01/17/18 22:36 22:36 23:16 WBC RBC Hgb Hct MCH RDW Plt Count Lymph % (Auto) [place] % (Auto) Lymph # [place] # Seg Neutrophils % Seg Neuts % (Manual) Lymphocytes % (Manual) Monocytes % (Manual) Nucleated RBC % Seg Neutrophils # Seg Neutrophils # Man Lymphocytes # (Manual) Monocytes # (Manual) PT INR POC ABG pH 7.112 L POC ABG pCO2 50.1 H POC ABG pO2 50 L VBG pH Sodium Potassium Chloride Carbon Dioxide BUN Creatinine Glucose POC Glucose Hemoglobin A1c 9.0 H Lactic Acid 5.50 H* Calcium Ionized Calcium Total Bilirubin AST ALT Alkaline Phosphatase C-Reactive Protein Total Protein Albumin Complement C3 Complement C4 01/18/18 01/18/18 01/18/18 01:26 03:21 03:21 WBC RBC Hgb Hct MCH RDW Plt Count Lymph % (Auto) [place] % (Auto) Lymph # [place] # Seg Neutrophils % Seg Neuts % (Manual) 27.0 L Lymphocytes % (Manual) 3.0 L Monocytes % (Manual) 14.0 H Nucleated RBC % Seg Neutrophils # Seg Neutrophils # Man Lymphocytes # (Manual) 0.3 L Monocytes # (Manual) 1.4 H PT INR POC ABG pH POC ABG pCO2 POC ABG pO2 VBG pH Sodium Potassium Chloride Carbon Dioxide BUN Creatinine Glucose POC Glucose 107 H Hemoglobin A1c Lactic Acid 8.00 H* Calcium Ionized Calcium Total Bilirubin AST ALT Alkaline Phosphatase C-Reactive Protein Total Protein Albumin Complement C3 Complement C4 01/18/18 01/18/18 01/18/18 03:21 04:40 05:07 WBC RBC Hgb Hct MCH RDW Plt Count Lymph % (Auto) [place] % (Auto) Lymph # [place] # Seg Neutrophils % Seg Neuts % (Manual) Lymphocytes % (Manual) Monocytes % (Manual) Nucleated RBC % Seg Neutrophils # Seg Neutrophils # Man Lymphocytes # (Manual) Monocytes # (Manual) PT INR POC ABG pH 7.093 L POC ABG pCO2 31.5 L POC ABG pO2 77 L VBG pH Sodium Potassium Chloride 96.9 L Carbon Dioxide 14 L BUN 47 H Creatinine 3.4 H Glucose POC Glucose Hemoglobin A1c Lactic Acid 11.10 H* Calcium 6.4 L Ionized Calcium Total Bilirubin AST 47 H ALT Alkaline Phosphatase C-Reactive Protein Total Protein 4.3 L Albumin 2.4 L Complement C3 Complement C4 01/18/18 01/18/18 01/18/18 06:29 07:06 11:44 WBC RBC Hgb Hct MCH RDW Plt Count Lymph % (Auto) [place] % (Auto) Lymph # [place] # Seg Neutrophils % Seg Neuts % (Manual) Lymphocytes % (Manual) Monocytes % (Manual) Nucleated RBC % Seg Neutrophils # Seg Neutrophils # Man Lymphocytes # (Manual) Monocytes # (Manual) PT INR POC ABG pH POC ABG pCO2 POC ABG pO2 VBG pH Sodium Potassium Chloride Carbon Dioxide BUN Creatinine Glucose POC Glucose 47 L 149 H < 40 L Hemoglobin A1c Lactic Acid Calcium Ionized Calcium Total Bilirubin AST ALT Alkaline Phosphatase C-Reactive Protein Total Protein Albumin Complement C3 Complement C4 01/18/18 01/18/18 01/18/18 11:46 14:15 18:01 WBC RBC Hgb Hct MCH RDW Plt Count Lymph % (Auto) [place] % (Auto) Lymph # [place] # Seg Neutrophils % Seg Neuts % (Manual) Lymphocytes % (Manual) Monocytes % (Manual) Nucleated RBC % Seg Neutrophils # Seg Neutrophils # Man Lymphocytes # (Manual) Monocytes # (Manual) PT INR POC ABG pH POC ABG pCO2 POC ABG pO2 VBG pH Sodium Potassium Chloride Carbon Dioxide BUN Creatinine Glucose POC Glucose 116 H < 40 L Hemoglobin A1c Lactic Acid 10.00 H* Calcium Ionized Calcium Total Bilirubin AST ALT Alkaline Phosphatase C-Reactive Protein Total Protein Albumin Complement C3 Complement C4 01/18/18 01/18/18 01/18/18 18:02 23:25 23:27 WBC RBC Hgb Hct MCH RDW Plt Count Lymph % (Auto) [place] % (Auto) Lymph # [place] # Seg Neutrophils % Seg Neuts % (Manual) Lymphocytes % (Manual) Monocytes % (Manual) Nucleated RBC % Seg Neutrophils # Seg Neutrophils # Man Lymphocytes # (Manual) Monocytes # (Manual) PT INR POC ABG pH POC ABG pCO2 POC ABG pO2 VBG pH Sodium Potassium Chloride Carbon Dioxide BUN Creatinine Glucose POC Glucose 136 H < 40 L < 40 L Hemoglobin A1c Lactic Acid Calcium Ionized Calcium Total Bilirubin AST ALT Alkaline Phosphatase C-Reactive Protein Total Protein Albumin Complement C3 Complement C4 01/19/18 01/19/18 01/19/18 04:02 06:50 06:50 WBC 18.5 H RBC Hgb Hct MCH RDW Plt Count 136 L Lymph % (Auto) [place] % (Auto) Lymph # [place] # Seg Neutrophils % Seg Neuts % (Manual) 86.0 H Lymphocytes % (Manual) 4.0 L Monocytes % (Manual) Nucleated RBC % Seg Neutrophils # Seg Neutrophils # Man 15.9 H Lymphocytes # (Manual) 0.7 L Monocytes # (Manual) 1.1 H PT 21.3 H INR 1.73 H POC ABG pH POC ABG pCO2 28.3 L POC ABG pO2 57 L VBG pH Sodium Potassium Chloride Carbon Dioxide BUN Creatinine Glucose POC Glucose Hemoglobin A1c Lactic Acid Calcium Ionized Calcium Total Bilirubin AST ALT Alkaline Phosphatase C-Reactive Protein Total Protein Albumin Complement C3 Complement C4 01/19/18 01/19/18 01/19/18 06:50 08:45 11:17 WBC RBC Hgb Hct MCH RDW Plt Count Lymph % (Auto) [place] % (Auto) Lymph # [place] # Seg Neutrophils % Seg Neuts % (Manual) Lymphocytes % (Manual) Monocytes % (Manual) Nucleated RBC % Seg Neutrophils # Seg Neutrophils # Man Lymphocytes # (Manual) Monocytes # (Manual) PT INR POC ABG pH POC ABG pCO2 POC ABG pO2 VBG pH Sodium 135 L Potassium Chloride 92.8 L Carbon Dioxide 19 L BUN 31 H Creatinine 2.6 H Glucose POC Glucose 110 H Hemoglobin A1c Lactic Acid 7.90 H* Calcium 7.1 L Ionized Calcium Total Bilirubin 1.60 H AST 2526 H ALT 1187 H Alkaline Phosphatase 133 H C-Reactive Protein Total Protein 4.8 L Albumin 2.0 L Complement C3 Complement C4 01/19/18 01/19/18 01/19/18 11:31 22:12 23:34 WBC RBC Hgb Hct MCH RDW Plt Count Lymph % (Auto) [place] % (Auto) Lymph # [place] # Seg Neutrophils % Seg Neuts % (Manual) Lymphocytes % (Manual) Monocytes % (Manual) Nucleated RBC % Seg Neutrophils # Seg Neutrophils # Man Lymphocytes # (Manual) Monocytes # (Manual) PT INR POC ABG pH POC ABG pCO2 31.6 L POC ABG pO2 59 L VBG pH Sodium Potassium Chloride Carbon Dioxide BUN Creatinine Glucose POC Glucose 131 H 53 L Hemoglobin A1c Lactic Acid Calcium Ionized Calcium Total Bilirubin AST ALT Alkaline Phosphatase C-Reactive Protein Total Protein Albumin Complement C3 Complement C4 01/20/18 01/20/18 01/20/18 05:18 05:18 05:19 WBC 19.7 H RBC Hgb Hct MCH 27 L RDW Plt Count 84 L Lymph % (Auto) [place] % (Auto) Lymph # [place] # Seg Neutrophils % Seg Neuts % (Manual) 84.0 H Lymphocytes % (Manual) 2.0 L Monocytes % (Manual) 8.0 H Nucleated RBC % Seg Neutrophils # Seg Neutrophils # Man 16.5 H Lymphocytes # (Manual) 0.4 L Monocytes # (Manual) 1.6 H PT INR POC ABG pH POC ABG pCO2 POC ABG pO2 VBG pH Sodium 136 L Potassium Chloride 96.9 L Carbon Dioxide 17 L BUN 65 H Creatinine 4.1 H D Glucose 104 H POC Glucose 125 H Hemoglobin A1c Lactic Acid Calcium 7.1 L Ionized Calcium Total Bilirubin 1.60 H AST 1702 H ALT 1141 H Alkaline Phosphatase 172 H C-Reactive Protein Total Protein 5.0 L Albumin 1.7 L Complement C3 Complement C4 01/20/18 01/20/18 01/20/18 07:00 11:48 13:54 WBC RBC Hgb Hct MCH RDW Plt Count Lymph % (Auto) [place] % (Auto) Lymph # [place] # Seg Neutrophils % Seg Neuts % (Manual) Lymphocytes % (Manual) Monocytes % (Manual) Nucleated RBC % Seg Neutrophils # Seg Neutrophils # Man Lymphocytes # (Manual) Monocytes # (Manual) PT 17.5 H INR 1.35 H POC ABG pH POC ABG pCO2 POC ABG pO2 VBG pH Sodium Potassium Chloride Carbon Dioxide BUN Creatinine Glucose POC Glucose 109 H Hemoglobin A1c Lactic Acid Calcium Ionized Calcium Total Bilirubin AST ALT Alkaline Phosphatase C-Reactive Protein 37.50 H Total Protein Albumin Complement C3 Complement C4 01/20/18 01/20/18 01/20/18 17:28 17:51 20:50 WBC RBC Hgb Hct MCH RDW Plt Count Lymph % (Auto) [place] % (Auto) Lymph # [place] # Seg Neutrophils % Seg Neuts % (Manual) Lymphocytes % (Manual) Monocytes % (Manual) Nucleated RBC % Seg Neutrophils # Seg Neutrophils # Man Lymphocytes # (Manual) Monocytes # (Manual) PT INR POC ABG pH POC ABG pCO2 POC ABG pO2 VBG pH Sodium Potassium Chloride Carbon Dioxide BUN Creatinine Glucose POC Glucose 140 H Hemoglobin A1c Lactic Acid 2.70 H* 2.30 H* Calcium Ionized Calcium Total Bilirubin AST ALT Alkaline Phosphatase C-Reactive Protein Total Protein Albumin Complement C3 Complement C4 01/20/18 01/20/18 01/20/18 23:55 Unknown Unknown WBC RBC Hgb Hct MCH RDW Plt Count Lymph % (Auto) [place] % (Auto) Lymph # [place] # Seg Neutrophils % Seg Neuts % (Manual) Lymphocytes % (Manual) Monocytes % (Manual) Nucleated RBC % Seg Neutrophils # Seg Neutrophils # Man Lymphocytes # (Manual) Monocytes # (Manual) PT INR POC ABG pH POC ABG pCO2 POC ABG pO2 VBG pH Sodium Potassium Chloride Carbon Dioxide BUN Creatinine Glucose POC Glucose 149 H Hemoglobin A1c Lactic Acid 2.50 H* Calcium Ionized Calcium Total Bilirubin AST ALT Alkaline Phosphatase C-Reactive Protein Total Protein Albumin Complement C3 47 L Complement C4 01/20/18 01/21/18 01/21/18 Unknown 00:12 04:27 WBC RBC Hgb Hct MCH RDW Plt Count Lymph % (Auto) [place] % (Auto) Lymph # [place] # Seg Neutrophils % Seg Neuts % (Manual) Lymphocytes % (Manual) Monocytes % (Manual) Nucleated RBC % Seg Neutrophils # Seg Neutrophils # Man Lymphocytes # (Manual) Monocytes # (Manual) PT INR POC ABG pH POC ABG pCO2 33.8 L POC ABG pO2 72 L VBG pH Sodium Potassium Chloride Carbon Dioxide BUN Creatinine Glucose POC Glucose 134 H Hemoglobin A1c Lactic Acid Calcium Ionized Calcium Total Bilirubin AST ALT Alkaline Phosphatase C-Reactive Protein Total Protein Albumin Complement C3 Complement C4 9 L 01/21/18 01/21/18 01/21/18 05:00 05:00 05:00 WBC 21.7 H RBC Hgb Hct MCH 27 L RDW Plt Count 67 L Lymph % (Auto) [place] % (Auto) Lymph # [place] # Seg Neutrophils % Seg Neuts % (Manual) 71.0 H Lymphocytes % (Manual) 9.0 L Monocytes % (Manual) Nucleated RBC % 4.0 H Seg Neutrophils # Seg Neutrophils # Man 15.4 H Lymphocytes # (Manual) Monocytes # (Manual) PT INR POC ABG pH POC ABG pCO2 POC ABG pO2 VBG pH Sodium Potassium Chloride Carbon Dioxide 21 L BUN 71 H Creatinine 4.1 H Glucose 149 H POC Glucose Hemoglobin A1c Lactic Acid 2.10 H* Calcium 7.5 L Ionized Calcium Total Bilirubin AST 494 H ALT 780 H Alkaline Phosphatase 151 H C-Reactive Protein Total Protein 4.9 L Albumin 1.9 L Complement C3 Complement C4 01/21/18 01/21/18 01/21/18 05:18 12:20 18:07 WBC RBC Hgb Hct MCH RDW Plt Count Lymph % (Auto) [place] % (Auto) Lymph # [place] # Seg Neutrophils % Seg Neuts % (Manual) Lymphocytes % (Manual) Monocytes % (Manual) Nucleated RBC % Seg Neutrophils # Seg Neutrophils # Man Lymphocytes # (Manual) Monocytes # (Manual) PT INR POC ABG pH POC ABG pCO2 POC ABG pO2 VBG pH Sodium Potassium Chloride Carbon Dioxide BUN Creatinine Glucose POC Glucose 132 H 158 H 143 H Hemoglobin A1c Lactic Acid Calcium Ionized Calcium Total Bilirubin AST ALT Alkaline Phosphatase C-Reactive Protein Total Protein Albumin Complement C3 Complement C4 01/21/18 01/22/18 01/22/18 23:40 03:48 04:10 WBC 24.9 H RBC Hgb Hct MCH 27 L RDW Plt Count 80 L Lymph % (Auto) [place] % (Auto) Lymph # [place] # Seg Neutrophils % Seg Neuts % (Manual) Lymphocytes % (Manual) Monocytes % (Manual) Nucleated RBC % Seg Neutrophils # Seg Neutrophils # Man Lymphocytes # (Manual) Monocytes # (Manual) PT INR POC ABG pH POC ABG pCO2 POC ABG pO2 65 L VBG pH Sodium Potassium Chloride Carbon Dioxide BUN Creatinine Glucose POC Glucose 136 H Hemoglobin A1c Lactic Acid Calcium Ionized Calcium Total Bilirubin AST ALT Alkaline Phosphatase C-Reactive Protein Total Protein Albumin Complement C3 Complement C4 01/22/18 01/22/18 01/22/18 04:10 05:56 11:30 WBC RBC Hgb Hct MCH RDW Plt Count Lymph % (Auto) [place] % (Auto) Lymph # [place] # Seg Neutrophils % Seg Neuts % (Manual) Lymphocytes % (Manual) Monocytes % (Manual) Nucleated RBC % Seg Neutrophils # Seg Neutrophils # Man Lymphocytes # (Manual) Monocytes # (Manual) PT INR POC ABG pH POC ABG pCO2 POC ABG pO2 VBG pH Sodium Potassium Chloride 97.7 L Carbon Dioxide BUN 72 H Creatinine 3.6 H Glucose 145 H POC Glucose 139 H 156 H Hemoglobin A1c Lactic Acid Calcium 7.3 L Ionized Calcium Total Bilirubin AST 146 H ALT 547 H Alkaline Phosphatase C-Reactive Protein Total Protein 5.2 L Albumin 2.3 L Complement C3 Complement C4 01/22/18 01/23/18 01/23/18 17:41 00:00 04:39 WBC RBC Hgb Hct MCH RDW Plt Count Lymph % (Auto) [place] % (Auto) Lymph # [place] # Seg Neutrophils % Seg Neuts % (Manual) Lymphocytes % (Manual) Monocytes % (Manual) Nucleated RBC % Seg Neutrophils # Seg Neutrophils # Man Lymphocytes # (Manual) Monocytes # (Manual) PT INR POC ABG pH POC ABG pCO2 31.9 L POC ABG pO2 62 L VBG pH Sodium Potassium Chloride Carbon Dioxide BUN Creatinine Glucose POC Glucose 185 H 150 H Hemoglobin A1c Lactic Acid Calcium Ionized Calcium Total Bilirubin AST ALT Alkaline Phosphatase C-Reactive Protein Total Protein Albumin Complement C3 Complement C4 01/23/18 01/23/18 01/23/18 05:24 11:38 14:20 WBC RBC Hgb Hct MCH RDW Plt Count Lymph % (Auto) [place] % (Auto) Lymph # [place] # Seg Neutrophils % Seg Neuts % (Manual) Lymphocytes % (Manual) Monocytes % (Manual) Nucleated RBC % Seg Neutrophils # Seg Neutrophils # Man Lymphocytes # (Manual) Monocytes # (Manual) PT INR POC ABG pH POC ABG pCO2 31.4 L POC ABG pO2 55 L VBG pH Sodium Potassium Chloride Carbon Dioxide BUN Creatinine Glucose POC Glucose 215 H 182 H Hemoglobin A1c Lactic Acid Calcium Ionized Calcium Total Bilirubin AST ALT Alkaline Phosphatase C-Reactive Protein Total Protein Albumin Complement C3 Complement C4 01/23/18 01/24/18 01/24/18 17:26 00:10 03:40 WBC 34.5 H RBC Hgb Hct MCH 27 L RDW Plt Count 130 L Lymph % (Auto) [place] % (Auto) Lymph # [place] # Seg Neutrophils % Seg Neuts % (Manual) Lymphocytes % (Manual) Monocytes % (Manual) Nucleated RBC % Seg Neutrophils # Seg Neutrophils # Man Lymphocytes # (Manual) Monocytes # (Manual) PT INR POC ABG pH POC ABG pCO2 POC ABG pO2 VBG pH Sodium Potassium Chloride Carbon Dioxide BUN Creatinine Glucose POC Glucose 252 H 225 H Hemoglobin A1c Lactic Acid Calcium Ionized Calcium Total Bilirubin AST ALT Alkaline Phosphatase C-Reactive Protein Total Protein Albumin Complement C3 Complement C4 01/24/18 01/24/18 01/24/18 03:40 06:06 11:36 WBC RBC Hgb Hct MCH RDW Plt Count Lymph % (Auto) [place] % (Auto) Lymph # [place] # Seg Neutrophils % Seg Neuts % (Manual) Lymphocytes % (Manual) Monocytes % (Manual) Nucleated RBC % Seg Neutrophils # Seg Neutrophils # Man Lymphocytes # (Manual) Monocytes # (Manual) PT INR POC ABG pH POC ABG pCO2 POC ABG pO2 VBG pH Sodium Potassium 5.7 H D Chloride 95.6 L Carbon Dioxide 20 L BUN 96 H Creatinine 4.2 H Glucose 166 H POC Glucose 162 H 160 H Hemoglobin A1c Lactic Acid Calcium 7.3 L Ionized Calcium Total Bilirubin AST 52 H ALT 235 H Alkaline Phosphatase C-Reactive Protein Total Protein 5.1 L Albumin 2.5 L Complement C3 Complement C4 01/24/18 01/24/18 01/25/18 15:08 17:32 00:04 WBC RBC Hgb Hct MCH RDW Plt Count Lymph % (Auto) [place] % (Auto) Lymph # [place] # Seg Neutrophils % Seg Neuts % (Manual) Lymphocytes % (Manual) Monocytes % (Manual) Nucleated RBC % Seg Neutrophils # Seg Neutrophils # Man Lymphocytes # (Manual) Monocytes # (Manual) PT INR POC ABG pH POC ABG pCO2 POC ABG pO2 VBG pH Sodium Potassium Chloride Carbon Dioxide BUN Creatinine Glucose POC Glucose 160 H 169 H Hemoglobin A1c Lactic Acid Calcium Ionized Calcium Total Bilirubin AST ALT Alkaline Phosphatase C-Reactive Protein 3.30 H Total Protein Albumin Complement C3 Complement C4 01/25/18 01/25/18 01/25/18 04:34 05:25 11:46 WBC RBC Hgb Hct MCH RDW Plt Count Lymph % (Auto) [place] % (Auto) Lymph # [place] # Seg Neutrophils % Seg Neuts % (Manual) Lymphocytes % (Manual) Monocytes % (Manual) Nucleated RBC % Seg Neutrophils # Seg Neutrophils # Man Lymphocytes # (Manual) Monocytes # (Manual) PT INR POC ABG pH 7.342 L POC ABG pCO2 48.7 H POC ABG pO2 VBG pH Sodium Potassium Chloride Carbon Dioxide BUN Creatinine Glucose POC Glucose 133 H 121 H Hemoglobin A1c Lactic Acid Calcium Ionized Calcium Total Bilirubin AST ALT Alkaline Phosphatase C-Reactive Protein Total Protein Albumin Complement C3 Complement C4 01/25/18 01/25/18 01/26/18 17:42 23:50 04:13 WBC RBC Hgb Hct MCH RDW Plt Count Lymph % (Auto) [place] % (Auto) Lymph # [place] # Seg Neutrophils % Seg Neuts % (Manual) Lymphocytes % (Manual) Monocytes % (Manual) Nucleated RBC % Seg Neutrophils # Seg Neutrophils # Man Lymphocytes # (Manual) Monocytes # (Manual) PT INR POC ABG pH POC ABG pCO2 POC ABG pO2 70 L VBG pH Sodium Potassium Chloride Carbon Dioxide BUN Creatinine Glucose POC Glucose 150 H 149 H Hemoglobin A1c Lactic Acid Calcium Ionized Calcium Total Bilirubin AST ALT Alkaline Phosphatase C-Reactive Protein Total Protein Albumin Complement C3 Complement C4 01/26/18 01/26/18 01/26/18 05:25 06:20 06:20 WBC 21.0 H RBC Hgb Hct MCH RDW Plt Count Lymph % (Auto) [place] % (Auto) Lymph # [place] # Seg Neutrophils % Seg Neuts % (Manual) 95.0 H Lymphocytes % (Manual) 1.0 L Monocytes % (Manual) Nucleated RBC % Seg Neutrophils # Seg Neutrophils # Man 20.0 H Lymphocytes # (Manual) 0.2 L Monocytes # (Manual) PT INR POC ABG pH POC ABG pCO2 POC ABG pO2 VBG pH Sodium Potassium 5.9 H Chloride 95.7 L Carbon Dioxide BUN 102 H Creatinine 4.6 H Glucose POC Glucose 107 H Hemoglobin A1c Lactic Acid Calcium 6.6 L Ionized Calcium Total Bilirubin AST ALT Alkaline Phosphatase C-Reactive Protein Total Protein Albumin Complement C3 Complement C4 01/26/18 01/26/18 01/27/18 12:19 18:09 00:17 WBC RBC Hgb Hct MCH RDW Plt Count Lymph % (Auto) [place] % (Auto) Lymph # [place] # Seg Neutrophils % Seg Neuts % (Manual) Lymphocytes % (Manual) Monocytes % (Manual) Nucleated RBC % Seg Neutrophils # Seg Neutrophils # Man Lymphocytes # (Manual) Monocytes # (Manual) PT INR POC ABG pH POC ABG pCO2 POC ABG pO2 VBG pH Sodium Potassium Chloride Carbon Dioxide BUN Creatinine Glucose POC Glucose 151 H 110 H 159 H Hemoglobin A1c Lactic Acid Calcium Ionized Calcium Total Bilirubin AST ALT Alkaline Phosphatase C-Reactive Protein Total Protein Albumin Complement C3 Complement C4 01/27/18 01/27/18 01/27/18 05:20 05:20 05:43 WBC 23.3 H RBC Hgb Hct MCH 27 L RDW Plt Count Lymph % (Auto) [place] % (Auto) Lymph # [place] # Seg Neutrophils % Seg Neuts % (Manual) 97.0 H Lymphocytes % (Manual) 0 L Monocytes % (Manual) Nucleated RBC % Seg Neutrophils # Seg Neutrophils # Man 22.6 H Lymphocytes # (Manual) 0.0 L Monocytes # (Manual) PT INR POC ABG pH POC ABG pCO2 POC ABG pO2 VBG pH Sodium Potassium 5.7 H Chloride 93.9 L Carbon Dioxide 21 L BUN 121 H Creatinine 5.2 H Glucose 131 H POC Glucose 121 H Hemoglobin A1c Lactic Acid Calcium 6.1 L Ionized Calcium Total Bilirubin AST ALT Alkaline Phosphatase C-Reactive Protein Total Protein Albumin Complement C3 Complement C4 01/27/18 01/27/18 01/28/18 12:16 17:32 00:05 WBC RBC Hgb Hct MCH RDW Plt Count Lymph % (Auto) [place] % (Auto) Lymph # [place] # Seg Neutrophils % Seg Neuts % (Manual) Lymphocytes % (Manual) Monocytes % (Manual) Nucleated RBC % Seg Neutrophils # Seg Neutrophils # Man Lymphocytes # (Manual) Monocytes # (Manual) PT INR POC ABG pH POC ABG pCO2 POC ABG pO2 VBG pH Sodium Potassium Chloride Carbon Dioxide BUN Creatinine Glucose POC Glucose 161 H 146 H 128 H Hemoglobin A1c Lactic Acid Calcium Ionized Calcium Total Bilirubin AST ALT Alkaline Phosphatase C-Reactive Protein Total Protein Albumin Complement C3 Complement C4 01/28/18 01/28/18 01/28/18 04:24 05:43 06:30 WBC 24.8 H RBC Hgb Hct MCH RDW Plt Count Lymph % (Auto) [place] % (Auto) Lymph # [place] # Seg Neutrophils % Seg Neuts % (Manual) 91.0 H Lymphocytes % (Manual) 4.0 L Monocytes % (Manual) Nucleated RBC % Seg Neutrophils # Seg Neutrophils # Man 22.6 H Lymphocytes # (Manual) 1.0 L Monocytes # (Manual) 1.0 H PT INR POC ABG pH POC ABG pCO2 POC ABG pO2 77 L VBG pH Sodium Potassium Chloride Carbon Dioxide BUN Creatinine Glucose POC Glucose 137 H Hemoglobin A1c Lactic Acid Calcium Ionized Calcium Total Bilirubin AST ALT Alkaline Phosphatase C-Reactive Protein Total Protein Albumin Complement C3 Complement C4 01/28/18 01/28/18 01/28/18 06:30 11:30 18:08 WBC RBC Hgb Hct MCH RDW Plt Count Lymph % (Auto) [place] % (Auto) Lymph # [place] # Seg Neutrophils % Seg Neuts % (Manual) Lymphocytes % (Manual) Monocytes % (Manual) Nucleated RBC % Seg Neutrophils # Seg Neutrophils # Man Lymphocytes # (Manual) Monocytes # (Manual) PT INR POC ABG pH POC ABG pCO2 POC ABG pO2 VBG pH Sodium Potassium Chloride 95.2 L Carbon Dioxide BUN 70 H Creatinine 3.7 H Glucose 135 H POC Glucose 183 H 129 H Hemoglobin A1c Lactic Acid Calcium 6.4 L Ionized Calcium Total Bilirubin AST ALT Alkaline Phosphatase C-Reactive Protein Total Protein Albumin Complement C3 Complement C4 01/29/18 01/29/18 01/29/18 00:00 05:50 06:00 WBC 15.8 H RBC 3.37 L Hgb 9.1 L Hct 28.6 L MCH 27 L RDW Plt Count Lymph % (Auto) [place] % (Auto) Lymph # [place] # Seg Neutrophils % Seg Neuts % (Manual) 87.0 H Lymphocytes % (Manual) 7.0 L Monocytes % (Manual) Nucleated RBC % Seg Neutrophils # Seg Neutrophils # Man 13.7 H Lymphocytes # (Manual) 1.1 L Monocytes # (Manual) PT INR POC ABG pH POC ABG pCO2 POC ABG pO2 VBG pH Sodium Potassium Chloride Carbon Dioxide BUN Creatinine Glucose POC Glucose 111 H 120 H Hemoglobin A1c Lactic Acid Calcium Ionized Calcium Total Bilirubin AST ALT Alkaline Phosphatase C-Reactive Protein Total Protein Albumin Complement C3 Complement C4 01/29/18 01/29/18 01/29/18 06:00 06:00 12:29 WBC RBC Hgb Hct MCH RDW Plt Count Lymph % (Auto) [place] % (Auto) Lymph # [place] # Seg Neutrophils % Seg Neuts % (Manual) Lymphocytes % (Manual) Monocytes % (Manual) Nucleated RBC % Seg Neutrophils # Seg Neutrophils # Man Lymphocytes # (Manual) Monocytes # (Manual) PT INR POC ABG pH POC ABG pCO2 POC ABG pO2 VBG pH Sodium 136 L Potassium Chloride 95.4 L Carbon Dioxide BUN 94 H Creatinine 4.2 H Glucose 120 H POC Glucose 134 H Hemoglobin A1c Lactic Acid Calcium 6.5 L Ionized Calcium 3.9 L Total Bilirubin AST ALT Alkaline Phosphatase C-Reactive Protein Total Protein 4.5 L Albumin 2.0 L Complement C3 Complement C4 01/29/18 01/30/18 01/30/18 18:32 00:12 04:47 WBC RBC Hgb Hct MCH RDW Plt Count Lymph % (Auto) [place] % (Auto) Lymph # [place] # Seg Neutrophils % Seg Neuts % (Manual) Lymphocytes % (Manual) Monocytes % (Manual) Nucleated RBC % Seg Neutrophils # Seg Neutrophils # Man Lymphocytes # (Manual) Monocytes # (Manual) PT INR POC ABG pH 7.456 H POC ABG pCO2 POC ABG pO2 VBG pH Sodium Potassium Chloride Carbon Dioxide BUN Creatinine Glucose POC Glucose 158 H 155 H Hemoglobin A1c Lactic Acid Calcium Ionized Calcium Total Bilirubin AST ALT Alkaline Phosphatase C-Reactive Protein Total Protein Albumin Complement C3 Complement C4 01/30/18 01/30/18 01/30/18 12:06 17:46 Unknown WBC 12.8 H RBC 3.09 L Hgb 8.4 L Hct 26.2 L MCH 27 L RDW Plt Count Lymph % (Auto) [place] % (Auto) Lymph # [place] # Seg Neutrophils % Seg Neuts % (Manual) 95.0 H Lymphocytes % (Manual) 1.0 L Monocytes % (Manual) Nucleated RBC % Seg Neutrophils # Seg Neutrophils # Man 12.2 H Lymphocytes # (Manual) 0.1 L Monocytes # (Manual) PT INR POC ABG pH POC ABG pCO2 POC ABG pO2 VBG pH Sodium Potassium Chloride Carbon Dioxide BUN Creatinine Glucose POC Glucose 117 H 166 H Hemoglobin A1c Lactic Acid Calcium Ionized Calcium Total Bilirubin AST ALT Alkaline Phosphatase C-Reactive Protein Total Protein Albumin Complement C3 Complement C4 01/30/18 01/31/18 01/31/18 Unknown 00:04 04:50 WBC 13.6 H RBC 3.53 L Hgb 9.8 L Hct 30.0 L MCH RDW 15.4 H Plt Count Lymph % (Auto) 3.6 L [place] % (Auto) 8.7 H Lymph # 0.5 L [place] # 1.2 H Seg Neutrophils % 87.1 H Seg Neuts % (Manual) Lymphocytes % (Manual) Monocytes % (Manual) Nucleated RBC % Seg Neutrophils # 11.8 H Seg Neutrophils # Man Lymphocytes # (Manual) Monocytes # (Manual) PT INR POC ABG pH POC ABG pCO2 POC ABG pO2 VBG pH Sodium Potassium Chloride Carbon Dioxide BUN 52 H Creatinine 2.9 H Glucose 105 H POC Glucose 155 H Hemoglobin A1c Lactic Acid Calcium 6.7 L Ionized Calcium Total Bilirubin AST ALT Alkaline Phosphatase C-Reactive Protein Total Protein Albumin Complement C3 Complement C4 01/31/18 01/31/18 01/31/18 04:50 17:08 23:38 WBC RBC Hgb Hct MCH RDW Plt Count Lymph % (Auto) [place] % (Auto) Lymph # [place] # Seg Neutrophils % Seg Neuts % (Manual) Lymphocytes % (Manual) Monocytes % (Manual) Nucleated RBC % Seg Neutrophils # Seg Neutrophils # Man Lymphocytes # (Manual) Monocytes # (Manual) PT INR POC ABG pH POC ABG pCO2 POC ABG pO2 VBG pH Sodium Potassium Chloride Carbon Dioxide BUN 70 H Creatinine 3.3 H Glucose 102 H POC Glucose 106 H 136 H Hemoglobin A1c Lactic Acid Calcium 7.1 L Ionized Calcium Total Bilirubin AST ALT Alkaline Phosphatase C-Reactive Protein Total Protein Albumin Complement C3 Complement C4 02/01/18 02/01/18 02/01/18 04:00 04:00 05:25 WBC RBC 3.16 L Hgb 8.7 L Hct 27.5 L MCH RDW Plt Count Lymph % (Auto) 6.4 L [place] % (Auto) 10.2 H Lymph # 0.7 L [place] # 1.1 H Seg Neutrophils % 81.7 H Seg Neuts % (Manual) Lymphocytes % (Manual) Monocytes % (Manual) Nucleated RBC % Seg Neutrophils # 8.6 H Seg Neutrophils # Man Lymphocytes # (Manual) Monocytes # (Manual) PT INR POC ABG pH POC ABG pCO2 POC ABG pO2 VBG pH Sodium Potassium 3.4 L Chloride Carbon Dioxide 31 H BUN 42 H Creatinine 2.2 H Glucose 101 H POC Glucose 163 H Hemoglobin A1c Lactic Acid Calcium 7.1 L Ionized Calcium Total Bilirubin AST ALT Alkaline Phosphatase C-Reactive Protein Total Protein Albumin Complement C3 Complement C4 02/01/18 02/01/18 02/01/18 11:54 18:21 23:34 WBC RBC Hgb Hct MCH RDW Plt Count Lymph % (Auto) [place] % (Auto) Lymph # [place] # Seg Neutrophils % Seg Neuts % (Manual) Lymphocytes % (Manual) Monocytes % (Manual) Nucleated RBC % Seg Neutrophils # Seg Neutrophils # Man Lymphocytes # (Manual) Monocytes # (Manual) PT INR POC ABG pH POC ABG pCO2 POC ABG pO2 VBG pH Sodium Potassium Chloride Carbon Dioxide BUN Creatinine Glucose POC Glucose 123 H 157 H 114 H Hemoglobin A1c Lactic Acid Calcium Ionized Calcium Total Bilirubin AST ALT Alkaline Phosphatase C-Reactive Protein Total Protein Albumin Complement C3 Complement C4 02/02/18 02/02/18 02/02/18 03:30 05:45 17:27 WBC RBC Hgb Hct MCH RDW Plt Count Lymph % (Auto) [place] % (Auto) Lymph # [place] # Seg Neutrophils % Seg Neuts % (Manual) Lymphocytes % (Manual) Monocytes % (Manual) Nucleated RBC % Seg Neutrophils # Seg Neutrophils # Man Lymphocytes # (Manual) Monocytes # (Manual) PT INR POC ABG pH POC ABG pCO2 POC ABG pO2 VBG pH Sodium Potassium 3.3 L Chloride 97.8 L Carbon Dioxide BUN 58 H Creatinine 2.7 H Glucose 111 H POC Glucose 110 H 125 H Hemoglobin A1c Lactic Acid Calcium 7.1 L Ionized Calcium Total Bilirubin AST ALT Alkaline Phosphatase C-Reactive Protein Total Protein Albumin Complement C3 Complement C4 02/02/18 02/03/18 02/03/18 23:34 04:45 05:38 WBC RBC Hgb Hct MCH RDW Plt Count Lymph % (Auto) [place] % (Auto) Lymph # [place] # Seg Neutrophils % Seg Neuts % (Manual) Lymphocytes % (Manual) Monocytes % (Manual) Nucleated RBC % Seg Neutrophils # Seg Neutrophils # Man Lymphocytes # (Manual) Monocytes # (Manual) PT INR POC ABG pH POC ABG pCO2 POC ABG pO2 VBG pH Sodium Potassium Chloride Carbon Dioxide BUN 72 H Creatinine 3.2 H Glucose POC Glucose 153 H 111 H Hemoglobin A1c Lactic Acid Calcium 7.6 L Ionized Calcium Total Bilirubin AST ALT Alkaline Phosphatase C-Reactive Protein Total Protein Albumin Complement C3 Complement C4 02/03/18 02/03/18 02/03/18 11:36 18:26 22:45 WBC RBC Hgb Hct MCH RDW Plt Count Lymph % (Auto) [place] % (Auto) Lymph # [place] # Seg Neutrophils % Seg Neuts % (Manual) Lymphocytes % (Manual) Monocytes % (Manual) Nucleated RBC % Seg Neutrophils # Seg Neutrophils # Man Lymphocytes # (Manual) Monocytes # (Manual) PT INR POC ABG pH POC ABG pCO2 POC ABG pO2 VBG pH Sodium Potassium Chloride Carbon Dioxide BUN Creatinine Glucose POC Glucose 108 H 155 H 141 H Hemoglobin A1c Lactic Acid Calcium Ionized Calcium Total Bilirubin AST ALT Alkaline Phosphatase C-Reactive Protein Total Protein Albumin Complement C3 Complement C4 02/04/18 02/04/18 04:06 11:57 WBC RBC Hgb Hct MCH RDW Plt Count Lymph % (Auto) [place] % (Auto) Lymph # [place] # Seg Neutrophils % Seg Neuts % (Manual) Lymphocytes % (Manual) Monocytes % (Manual) Nucleated RBC % Seg Neutrophils # Seg Neutrophils # Man Lymphocytes # (Manual) Monocytes # (Manual) PT INR POC ABG pH POC ABG pCO2 POC ABG pO2 VBG pH Sodium 136 L Potassium 3.4 L Chloride 96.7 L Carbon Dioxide BUN 42 H Creatinine 1.9 H Glucose POC Glucose 119 H Hemoglobin A1c Lactic Acid Calcium 7.3 L Ionized Calcium Total Bilirubin AST ALT Alkaline Phosphatase C-Reactive Protein Total Protein Albumin Complement C3 Complement C4 Allied health notes reviewed: nursing
[2018-02-04] MEDS: TYLENOL FEEDTUBE PRN (21:39)
[2018-02-05] MEDS: DUONEB *Not for PRN Use IH SCH ×4 (01:58→20:10)
[2018-02-05 05:12] LABS: Calcium 7.5 mg/dL (8.4-10.2)
[2018-02-05] MEDS: HumaLOG SUB-Q SCH ×3 (05:53→18:03)
[2018-02-05] MEDS: HEPARIN SUB-Q SCH ×3 (05:53→22:00)
[2018-02-05] MEDS: PEPCID PO SCH (09:17)
[2018-02-05] MEDS: SODIUM CHLORIDE FLUSH SYRINGE 10 ML IV SCH ×2 (09:18→22:00)
--- NOTE | 2018-02-05 10:30 | Progress Note ---
Assessment and Plan Assessment and plan: Acute hypercapnic respiratory failure -Likely from drug abuse and aspiration -VAP bundle -Patient extubated. Continue O2 for supportive care. Left Pneumothorax -s/p chest tube. Severe Sepsis with septic shock likely from aspiration pneumonia-POA -Shock resolved -abx on hold per ID -Leukocytosis has improved -Left lobar infiltrate on admission Multiple cystic lesions associated with masses in the pelvis reconsult [employer] now the patient is extubated Penicillin allergy DM uncontrolled -Continue insulin therapy Shock required pressors -Resolved -likely from sepsis vs cardiogenic -off pressors but required 3 pressors on admission Bilateral upper and lower extremity ischemia/necrosis Etiology secondary to sepsis and previous pressors. Vascular follow up now that the patient has stabilized and is extubated. Decompensated acute CHF - EF 30-35% on echo - cardiology following History of pacemaker insertion in 2008 post PCI History of CAD s/p PCI in 2008 [place] Etiology likely due to ATN from severe sepsis - monitor renal function, now on HD - HD per renal service. Vascular surgery placed left IJ Vas-Cath - Avoid nephrotoxins, nephrology consulted History of cocaine and methamphetamine abuse Acute encephalopathy -Improved - Multifactorial, likely from drug abuse vs severe sepsis versus anoxic encephalopathy - CT head no acute finding - Pacemaker precludes getting MRI brain Ischemic hepatitis Elevated LFTs, etiology secondary to shock liver syndrome - Likely from severe hypotension causing shock liver - Continue to monitor Coagulopathy Etiology due to severe sepsis and abnormal liver function Thrombocytopenia Etiology likely secondary to sepsis - Mont[place] Disposition: Continue ICU monitoring History Interval history: 62-year-old admitted with hx of htn, polysubstance drug abuse per family, admitted after she was found unresponsive found in the bathroom of a friends home, noted with severe lactic acidosis, hypotensive on vasopressors, hypercapenic respiratory failure requiring intubation. Patient now extubated on Ventimask. Hospitalist Physical - Constitutional Vitals: Temp Pulse Resp BP Pulse Ox 99.5 F 95 H 25 H 145/73 100 02/05/18 08:00 02/05/18 08:15 02/05/18 08:15 02/05/18 08:15 02/05/18 08:15 General appearance: Present: other (intubated) - EENT Eyes: Present: PERRL, EOM intact ENT: hearing intact, clear oral mucosa, dentition normal - Neck Neck: Present: supple, normal ROM - Respiratory Respiratory effort: normal Respiratory: bilateral: CTA - Cardiovascular Rhythm: regular Heart Sounds: Present: S1 & S2. Absent: gallop, rub - Extremities Extremities: no ischemia, No edema, Full ROM - Abdominal General gastrointestinal: soft, non-tender, non-distended, normal bowel sounds - Integumentary Integumentary: Present: clear, warm, dry - Neurologic Neurologic: CNII-XII intact, moves all extremities Results - Labs CBC & Chem 7: 02/01/18 04:00 02/05/18 04:10 Labs: Laboratory Last Values WBC 10.5 K/mm3 (4.5-11.0) 02/01/18 04:00 RBC 3.16 M/mm3 (3.65-5.03) L 02/01/18 04:00 Hgb 8.7 gm/dl (10.1-14.3) L 02/01/18 04:00 Hct 27.5 % (30.3-42.9) L 02/01/18 04:00 MCV 87 fl (79-97) 02/01/18 04:00 MCH 28 pg (28-32) 02/01/18 04:00 MCHC 32 % (30-34) 02/01/18 04:00 RDW 15.2 % (13.2-15.2) 02/01/18 04:00 Plt Count 257 K/mm3 (140-440) 02/01/18 04:00 Lymph % (Auto) 6.4 % (13.4-35.0) L 02/01/18 04:00 [place] % (Auto) 10.2 % (0.0-7.3) H 02/01/18 04:00 Eos % (Auto) 1.3 % (0.0-4.3) 02/01/18 04:00 Baso % (Auto) 0.4 % (0.0-1.8) 02/01/18 04:00 Lymph # 0.7 K/mm3 (1.2-5.4) L 02/01/18 04:00 [place] # 1.1 K/mm3 (0.0-0.8) H 02/01/18 04:00 Eos # 0.1 K/mm3 (0.0-0.4) 02/01/18 04:00 Baso # 0.0 K/mm3 (0.0-0.1) 02/01/18 04:00 Add Manual Diff Complete 01/30/18 Unknown Total Counted 100 01/30/18 Unknown Seg Neutrophils % 81.7 % (40.0-70.0) H 02/01/18 04:00 Seg Neuts % (Manual) 95.0 % (40.0-70.0) H 01/30/18 Unknown Band Neutrophils % 2.0 % 01/30/18 Unknown Lymphocytes % (Manual) 1.0 % (13.4-35.0) L 01/30/18 Unknown Reactive Lymphs % (Man) 0 % 01/30/18 Unknown Monocytes % (Manual) 2.0 % (0.0-7.3) 01/30/18 Unknown Eosinophils % (Manual) 0 % (0.0-4.3) 01/30/18 Unknown Basophils % (Manual) 0 % (0.0-1.8) 01/30/18 Unknown Metamyelocytes % 0 % 01/30/18 Unknown Myelocytes % 0 % 01/30/18 Unknown Promyelocytes % 0 % 01/30/18 Unknown Blast Cells % 0 % 01/30/18 Unknown Nucleated RBC % Not Reportable 01/30/18 Unknown Seg Neutrophils # 8.6 K/mm3 (1.8-7.7) H 02/01/18 04:00 Seg Neutrophils # Man 12.2 K/mm3 (1.8-7.7) H 01/30/18 Unknown Band Neutrophils # 0.3 K/mm3 01/30/18 Unknown Lymphocytes # (Manual) 0.1 K/mm3 (1.2-5.4) L 01/30/18 Unknown Abs React Lymphs (Man) 0.0 K/mm3 01/30/18 Unknown Monocytes # (Manual) 0.3 K/mm3 (0.0-0.8) 01/30/18 Unknown Eosinophils # (Manual) 0.0 K/mm3 (0.0-0.4) 01/30/18 Unknown Basophils # (Manual) 0.0 K/mm3 (0.0-0.1) 01/30/18 Unknown Metamyelocytes # 0.0 K/mm3 01/30/18 Unknown Myelocytes # 0.0 K/mm3 01/30/18 Unknown Promyelocytes # 0.0 K/mm3 01/30/18 Unknown Blast Cells # 0.0 K/mm3 01/30/18 Unknown WBC Morphology Not Reportable 01/30/18 Unknown Hypersegmented Neuts Not Reportable 01/30/18 Unknown Hyposegmented Neuts Not Reportable 01/30/18 Unknown Hypogranular Neuts Not Reportable 01/30/18 Unknown Smudge Cells Not Reportable 01/30/18 Unknown Toxic Granulation Not Reportable 01/30/18 Unknown Toxic Vacuolation Not Reportable 01/30/18 Unknown Dohle Bodies Not Reportable 01/30/18 Unknown Pelger-Huet Anomaly Not Reportable 01/30/18 Unknown Opal Rods Not Reportable 01/30/18 Unknown Platelet Estimate Consistent w auto 01/30/18 Unknown Clumped Platelets Not Reportable 01/30/18 Unknown Plt Clumps, EDTA Not Reportable 01/30/18 Unknown Large Platelets Not Reportable 01/30/18 Unknown Giant Platelets Not Reportable 01/30/18 Unknown Platelet Satelliting Not Reportable 01/30/18 Unknown Plt Morphology Comment Not Reportable 01/30/18 Unknown RBC Morphology Not Reportable 01/30/18 Unknown Dimorphic RBCs Not Reportable 01/30/18 Unknown Polychromasia Not Reportable 01/30/18 Unknown Hypochromasia 1+ 01/30/18 Unknown Poikilocytosis Not Reportable 01/30/18 Unknown Anisocytosis Not Reportable 01/30/18 Unknown Microcytosis Few 01/30/18 Unknown Macrocytosis Not Reportable 01/30/18 Unknown Spherocytes Not Reportable 01/30/18 Unknown Pappenheimer Bodies Not Reportable 01/30/18 Unknown Sickle Cells Not Reportable 01/30/18 Unknown Target Cells Not Reportable 01/30/18 Unknown Tear Drop Cells Not Reportable 01/30/18 Unknown Ovalocytes Not Reportable 01/30/18 Unknown Stomatocytes Few 01/30/18 Unknown Helmet Cells Not Reportable 01/30/18 Unknown Frankel-Ryan Bodies Not Reportable 01/30/18 Unknown [place] Rings Not Reportable 01/30/18 Unknown [employer] Cells Not Reportable 01/30/18 Unknown Bite Cells Not Reportable 01/30/18 Unknown Crenated Cell Not Reportable 01/30/18 Unknown Elliptocytes Not Reportable 01/30/18 Unknown Acanthocytes (Spur) Not Reportable 01/30/18 Unknown Rouleaux Not Reportable 01/30/18 Unknown Hemoglobin C Crystals Not Reportable 01/30/18 Unknown Schistocytes Not Reportable 01/30/18 Unknown Malaria parasites Not Reportable 01/30/18 Unknown Brock Bodies Not Reportable 01/30/18 Unknown Hem Pathologist Commnt No 01/30/18 Unknown PT 17.5 Sec. (12.2-14.9) H 01/20/18 07:00 INR 1.35 (0.87-1.13) H 01/20/18 07:00 Heparin Anti-Xa, Unfract Negative (Negative) 01/20/18 11:03 POC ABG pH 7.441 (7.35-7.45) 02/04/18 15:05 POC ABG pCO2 43.6 (35-45) 02/04/18 15:05 POC ABG pO2 109 (80-105) H 02/04/18 15:05 POC ABG HCO3 29.7 02/04/18 15:05 POC ABG Total CO2 31 02/04/18 15:05 POC ABG O2 Sat 98 02/04/18 15:05 POC ABG Base Excess 6 02/04/18 15:05 VBG pH 7.273 (7.320-7.420) L 01/17/18 16:54 FiO2 35 % 02/04/18 15:05 Sodium 139 mmol/L (137-145) 02/05/18 04:10 Potassium 3.5 mmol/L (3.6-5.0) L 02/05/18 04:10 Chloride 99.3 mmol/L (98-107) 02/05/18 04:10 Carbon Dioxide 28 mmol/L (22-30) 02/05/18 04:10 Anion Gap 15 mmol/L 02/05/18 04:10 BUN 52 mg/dL (7-17) H 02/05/18 04:10 Creatinine 2.2 mg/dL (0.7-1.2) H 02/05/18 04:10 Estimated GFR 23 ml/min 02/05/18 04:10 BUN/Creatinine Ratio 24 % 02/05/18 04:10 Glucose 97 mg/dL (65-100) 02/05/18 04:10 POC Glucose 108 (70-105) H 02/05/18 05:04 Hemoglobin A1c 9.0 % (4-6) H 01/17/18 22:36 Lactic Acid 1.40 mmol/L (0.7-2.0) 01/24/18 15:08 Calcium 7.5 mg/dL (8.4-10.2) L 02/05/18 04:10 Ionized Calcium 3.9 mg/dL (4.8-5.6) L 01/29/18 06:00 Magnesium 1.80 mg/dL (1.7-2.3) 01/29/18 06:00 Total Bilirubin 0.50 mg/dL (0.1-1.2) 01/29/18 06:00 AST 21 units/L (5-40) 01/29/18 06:00 ALT 53 units/L (7-56) 01/29/18 06:00 Alkaline Phosphatase 88 units/L (35-129) 01/29/18 06:00 C-Reactive Protein 3.30 mg/dL (0.00-1.30) H 01/24/18 15:08 Total Protein 4.5 g/dL (6.3-8.2) L 01/29/18 06:00 Albumin 2.0 g/dL (3.9-5) L 01/29/18 06:00 Albumin/Globulin Ratio 0.8 % 01/29/18 06:00 Serotonin Release Assay See scanned report 01/20/18 11:03 Random Vancomycin 19.8 ug/mL (0-40.0) 01/27/18 05:20 ALISA Screen Negative (Negative) 01/20/18 Unknown Heparin-induced Plt Ab Negative (Negative) 01/20/18 11:03 UF Heparin High Dose 0 % Release 01/20/18 11:03 NEGRITA UFH Low Dose 0.1 0 % Release 01/20/18 11:03 NEGRITA UFH Low Dose 0.5 0 % Release 01/20/18 11:03 Complement C3 47 mg/dL (83-193) L 01/20/18 Unknown Complement C4 9 mg/dL (15-57) L 01/20/18 Unknown Hepatitis A IgM Ab Non-reactive (NonReactive) 01/20/18 07:00 Hep Bs Antigen Non-reactive (Negative) 01/20/18 07:00 Hep B Core IgM Ab Non-reactive (NonReactive) 01/20/18 07:00 Hepatitis C Antibody Non-reactive (NonReactive) 01/20/18 07:00 HIV 1&2 Antibody Rapid Non react (Non React) 01/20/18 Unknown HIV P24 Antigen Non react (Non React) 01/20/18 Unknown
--- NOTE | 2018-02-05 10:37 | Progress Note ---
Assessment and Plan - Patient Problems (1) Acute renal failure Current Visit: Yes Status: Acute Plan to address problem: may be prerenal with ATN. Dialysis dependent. Adjust meds per renal function. Prognosis- guarded. Monitor for renal recovery. Bellamy is out, unable to measure urine output. Pt was seen and examined during HD [id number], afebrile (2) Sepsis Current Visit: Yes Status: Acute (3) Acute respiratory failure Current Visit: Yes Status: Acute (4) PVD (peripheral vascular disease) Current Visit: Yes Status: Acute (5) Anemia Current Visit: Yes Status: Acute (6) Hypocalcemia Current Visit: Yes Status: Acute (7) Hypoalbuminemia Current Visit: Yes Status: Acute (8) Transaminitis Current Visit: Yes Status: Acute (9) Pleural effusion Current Visit: Yes Status: Acute (10) Encephalopathy Current Visit: Yes Status: Acute Subjective Date of service: 02/05/18 Principal diagnosis: Acute hypoxic respiratory failure, severe sepsis with shock , encephalopathy Interval history: pt is off ventilator, sleepy , but arousable, currently on HD Objective - Vital Signs Vital signs: Vital Signs - 12hr 02/04/18 02/04/18 02/04/18 22:46 23:00 23:16 Temperature Pulse Rate 91 H 93 H 90 Pulse Rate [ Bilateral Throughout] Pulse Rate [ From Monitor] Respiratory 17 25 H 22 Rate Respiratory Rate [Bilateral Throughout] Blood Pressure 92/42 93/47 92/42 O2 Sat by Pulse 100 100 100 Oximetry 02/04/18 02/04/18 02/04/18 23:22 23:30 23:46 Temperature Pulse Rate 89 91 H 96 H Pulse Rate [ Bilateral Throughout] Pulse Rate [ From Monitor] Respiratory 23 25 H 26 H Rate Respiratory Rate [Bilateral Throughout] Blood Pressure 92/42 107/48 107/48 O2 Sat by Pulse 100 100 100 Oximetry 02/04/18 02/05/18 02/05/18 23:47 00:00 00:15 Temperature 98.6 F Pulse Rate 92 H 90 Pulse Rate [ Bilateral Throughout] Pulse Rate [ From Monitor] Respiratory 24 22 Rate Respiratory Rate [Bilateral Throughout] Blood Pressure 96/47 107/48 O2 Sat by Pulse 100 100 Oximetry 02/05/18 02/05/18 02/05/18 00:30 00:45 01:00 Temperature Pulse Rate 90 89 90 Pulse Rate [ Bilateral Throughout] Pulse Rate [ From Monitor] Respiratory 25 H 21 24 Rate Respiratory Rate [Bilateral Throughout] Blood Pressure 96/47 120/69 O2 Sat by Pulse 100 100 100 Oximetry 02/05/18 02/05/18 02/05/18 01:15 01:30 01:45 Temperature Pulse Rate 88 85 87 Pulse Rate [ 85 Bilateral Throughout] Pulse Rate [ From Monitor] Respiratory 21 21 22 Rate Respiratory 20 Rate [Bilateral Throughout] Blood Pressure 120/69 109/58 109/58 O2 Sat by Pulse 100 100 100 Oximetry 02/05/18 02/05/18 02/05/18 02:00 02:15 02:30 Temperature Pulse Rate 86 89 90 Pulse Rate [ Bilateral Throughout] Pulse Rate [ From Monitor] Respiratory 19 19 22 Rate Respiratory Rate [Bilateral Throughout] Blood Pressure 122/64 122/64 117/56 O2 Sat by Pulse 100 100 100 Oximetry 02/05/18 02/05/18 02/05/18 02:45 03:00 03:15 Temperature Pulse Rate 89 88 92 H Pulse Rate [ Bilateral Throughout] Pulse Rate [ From Monitor] Respiratory 21 24 21 Rate Respiratory Rate [Bilateral Throughout] Blood Pressure 117/56 116/63 116/63 O2 Sat by Pulse 100 100 100 Oximetry 02/05/18 02/05/18 02/05/18 03:30 03:45 04:00 Temperature 99.4 F Pulse Rate 84 86 84 Pulse Rate [ Bilateral Throughout] Pulse Rate [ From Monitor] Respiratory 20 21 21 Rate Respiratory Rate [Bilateral Throughout] Blood Pressure 123/68 123/68 111/56 O2 Sat by Pulse 99 100 100 Oximetry 02/05/18 02/05/18 02/05/18 04:15 04:30 04:45 Temperature Pulse Rate 83 83 86 Pulse Rate [ Bilateral Throughout] Pulse Rate [ From Monitor] Respiratory 18 20 20 Rate Respiratory Rate [Bilateral Throughout] Blood Pressure 111/56 110/57 110/57 O2 Sat by Pulse 100 100 100 Oximetry 02/05/18 02/05/18 02/05/18 05:01 05:15 05:31 Temperature Pulse Rate 95 H 88 91 H Pulse Rate [ Bilateral Throughout] Pulse Rate [ From Monitor] Respiratory 24 22 19 Rate Respiratory Rate [Bilateral Throughout] Blood Pressure 123/73 123/73 152/82 O2 Sat by Pulse 100 100 99 Oximetry 02/05/18 02/05/1802/05/18 05:45 06:00 06:15 Temperature Pulse Rate 88 84 89 Pulse Rate [ Bilateral Throughout] Pulse Rate [ From Monitor] Respiratory 23 23 25 H Rate Respiratory Rate [Bilateral Throughout] Blood Pressure 152/82 138/75 138/75 O2 Sat by Pulse 99 100 100 Oximetry 02/05/18 02/05/18 02/05/18 06:30 06:45 07:00 Temperature Pulse Rate 89 88 89 Pulse Rate [ Bilateral Throughout] Pulse Rate [ From Monitor] Respiratory 22 24 22 Rate Respiratory Rate [Bilateral Throughout] Blood Pressure 140/76 140/76 139/74 O2 Sat by Pulse 99 100 100 Oximetry 02/05/18 02/05/18 02/05/18 07:15 07:30 07:45 Temperature Pulse Rate 92 H 93 H 95 H Pulse Rate [ Bilateral Throughout] Pulse Rate [ From Monitor] Respiratory 26 H 29 H 27 H Rate Respiratory Rate [Bilateral Throughout] Blood Pressure 139/74 144/81 144/81 O2 Sat by Pulse 100 100 100 Oximetry 02/05/18 02/05/18 02/05/18 08:00 08:05 08:15 Temperature 99.5 F Pulse Rate 95 H 95 H Pulse Rate [ Bilateral Throughout] Pulse Rate [ 92 H From Monitor] Respiratory 29 H 26 H 25 H Rate Respiratory Rate [Bilateral Throughout] Blood Pressure 145/73 145/73 O2 Sat by Pulse 100 100 100 Oximetry - General Appearance General appearance: chronically ill EENT: mucous membranes dry Neck: no JVD Respiratory: Present: Decreased Breath Sounds Cardiology: regular, systolic murmur Gastrointestinal: normoactive bowel sounds Musculoskeletal: other (ischemic extremities) - Lab 02/01/18 04:00 02/05/18 04:10 Most recent lab results Calcium 7.5 mg/dL (8.4-10.2) L 02/05/18 04:10 Magnesium 1.80 mg/dL (1.7-2.3) 01/29/18 06:00
--- NOTE | 2018-02-05 13:42 | Progress Note ---
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 Hyperkalemia History of cocaine abuse, Acute encephalopathy Lactic acidosis Thrombocytopenia - continue with mechanical ventilatory support (Daily SBT's as tolerated) - continue daily SAT's - s/p left chest tube for spontaneous pneumothorax with small volume sero- sanguinous drainage - advanced ETT to 23cm MARGOT - continue seroquel re: delirium - VAP bundle addressed - continue HD/UF per nephrology for toxin and volume clearance (M/W/F) - continue VTE prophylaxis with eliquis - trend CRP & lactate (Significantly improved) - continue steroid taper - continue stress ulcer prophylaxis - continue Empiric antibiotics, plan to de-escalate per ID recs - continue supplemental oxygen to wean for oxygen saturations >90% - Wean vasopressor support for MAP>65 - continue Lung protective strategies, ARDS-net protocol - surgery / vascuklar team evaluation for gangrene - continue other care per attending/other consultants ....remains critically ill on MVS and at high risk for further deterioration including ...35' CCT Subjective Date of service: 02/05/18 Principal diagnosis: Acute hypoxic respiratory failure, severe sepsis with shock , encephalopathy Interval history: Patient seen today for: Acute hypoxic respiratory failure, severe sepsis with shock, encephalopathy Seen and examined at bedside; 24-hour events reviewed; nursing and respiratory care staff consulted; no adverse overnight events reported to me; Objective Vital Signs - 12hr 02/05/18 02/05/18 02/05/18 01:45 02:00 02:15 Temperature Pulse Rate 87 86 89 Pulse Rate [ 85 Bilateral Throughout] Pulse Rate [ From Monitor] Respiratory 22 19 19 Rate Respiratory 20 Rate [Bilateral Throughout] Blood Pressure 109/58 122/64 122/64 O2 Sat by Pulse 100 100 100 Oximetry O2 Sat by Pulse Oximetry [ Bilateral Throughout] 02/05/18 02/05/18 02/05/18 02:30 02:45 03:00 Temperature Pulse Rate 90 89 88 Pulse Rate [ Bilateral Throughout] Pulse Rate [ From Monitor] Respiratory 22 21 24 Rate Respiratory Rate [Bilateral Throughout] Blood Pressure 117/56 117/56 116/63 O2 Sat by Pulse 100 100 100 Oximetry O2 Sat by Pulse Oximetry [ Bilateral Throughout] 02/05/18 02/05/18 02/05/18 03:15 03:30 03:45 Temperature Pulse Rate 92 H 84 86 Pulse Rate [ Bilateral Throughout] Pulse Rate [ From Monitor] Respiratory 21 20 21 Rate Respiratory Rate [Bilateral Throughout] Blood Pressure 116/63 123/68 123/68 O2 Sat by Pulse 100 99 100 Oximetry O2 Sat by Pulse Oximetry [ Bilateral Throughout] 02/05/18 02/05/18 02/05/18 04:00 04:15 04:30 Temperature 99.4 F Pulse Rate 84 83 83 Pulse Rate [ Bilateral Throughout] Pulse Rate [ From Monitor] Respiratory 21 18 20 Rate Respiratory Rate [Bilateral Throughout] Blood Pressure 111/56 111/56 110/57 O2 Sat by Pulse 100 100 100 Oximetry O2 Sat by Pulse Oximetry [ Bilateral Throughout] 02/05/18 02/05/18 02/05/18 04:45 05:01 05:15 Temperature Pulse Rate 86 95 H 88 Pulse Rate [ Bilateral Throughout] Pulse Rate [ From Monitor] Respiratory 20 24 22 Rate Respiratory Rate [Bilateral Throughout] Blood Pressure 110/57 123/73 123/73 O2 Sat by Pulse 100 100 100 Oximetry O2 Sat by Pulse Oximetry [ Bilateral Throughout] 02/05/18 02/05/18 02/05/18 05:31 05:45 06:00 Temperature Pulse Rate 91 H 88 84 Pulse Rate [ Bilateral Throughout] Pulse Rate [ From Monitor] Respiratory 19 23 23 Rate Respiratory Rate [Bilateral Throughout] Blood Pressure 152/82 152/82 138/75 O2 Sat by Pulse 99 99 100 Oximetry O2 Sat by Pulse Oximetry [ Bilateral Throughout] 02/05/18 02/05/18 02/05/18 06:15 06:30 06:45 Temperature Pulse Rate 89 89 88 Pulse Rate [ Bilateral Throughout] Pulse Rate [ From Monitor] Respiratory 25 H 22 24 Rate Respiratory Rate [Bilateral Throughout] Blood Pressure 138/75 140/76 140/76 O2 Sat by Pulse 100 99 100 Oximetry O2 Sat by Pulse Oximetry [ Bilateral Throughout] 02/05/18 02/05/18 02/05/18 07:00 07:15 07:30 Temperature Pulse Rate 89 92 H 93 H Pulse Rate [ Bilateral Throughout] Pulse Rate [ From Monitor] Respiratory 22 26 H 29 H Rate Respiratory Rate [Bilateral Throughout] Blood Pressure 139/74 139/74 144/81 O2 Sat by Pulse 100 100 100 Oximetry O2 Sat by Pulse Oximetry [ Bilateral Throughout] 0302/05/18 02/05/18 07:45 08:00 08:05 Temperature 99.5 F Pulse Rate 95 H 95 H Pulse Rate [ Bilateral Throughout] Pulse Rate [ 92 H From Monitor] Respiratory 27 H 29 H 26 H Rate Respiratory Rate [Bilateral Throughout] Blood Pressure 144/81 145/73 O2 Sat by Pulse 100 100 100 Oximetry O2 Sat by Pulse Oximetry [ Bilateral Throughout] 02/05/18 02/05/18 02/05/18 08:15 08:30 08:45 Temperature Pulse Rate 95 H 92 H 99 H Pulse Rate [ Bilateral Throughout] Pulse Rate [ From Monitor] Respiratory 25 H 30 H 27 H Rate Respiratory Rate [Bilateral Throughout] Blood Pressure 145/73 139/84 139/84 O2 Sat by Pulse 100 100 99 Oximetry O2 Sat by Pulse Oximetry [ Bilateral Throughout] 02/05/18 02/05/18 02/05/18 09:00 09:15 09:30 Temperature Pulse Rate 93 H 95 H 93 H Pulse Rate [ Bilateral Throughout] Pulse Rate [ From Monitor] Respiratory 26 H 26 H 19 Rate Respiratory Rate [Bilateral Throughout] Blood Pressure 135/78 135/78 140/73 O2 Sat by Pulse 99 99 99 Oximetry O2 Sat by Pulse Oximetry [ Bilateral Throughout] 02/05/18 02/05/18 02/05/18 09:45 10:00 10:05 Temperature Pulse Rate 96 H 95 H Pulse Rate [ Bilateral Throughout] Pulse Rate [ 86 From Monitor] Respiratory 29 H 26 H 24 Rate Respiratory Rate [Bilateral Throughout] Blood Pressure 140/73 144/80 O2 Sat by Pulse 99 100 100 Oximetry O2 Sat by Pulse Oximetry [ Bilateral Throughout] 02/05/18 02/05/18 02/05/18 10:15 10:30 10:45 Temperature 99.5 F Pulse Rate 92 H 95 H 95 H Pulse Rate [ Bilateral Throughout] Pulse Rate [ From Monitor] Respiratory 28 H 29 H 28 H Rate Respiratory Rate [Bilateral Throughout] Blood Pressure 138/75 152/81 141/75 O2 Sat by Pulse 99 100 99 Oximetry O2 Sat by Pulse 97 Oximetry [ Bilateral Throughout] 02/05/18 02/05/18 02/05/18 10:50 11:00 11:15 Temperature Pulse Rate 94 H 91 H 90 Pulse Rate [ Bilateral Throughout] Pulse Rate [ From Monitor] Respiratory 28 H 29 H Rate Respiratory Rate [Bilateral Throughout] Blood Pressure 141/75 150/78 138/73 O2 Sat by Pulse 100 100 Oximetry O2 Sat by Pulse Oximetry [ Bilateral Throughout] 02/05/18 02/05/18 02/05/18 11:30 11:45 12:00 Temperature 99.6 F Pulse Rate 90 91 H 90 Pulse Rate [ Bilateral Throughout] Pulse Rate [ 90 From Monitor] Respiratory 26 H 25 H 27 H Rate Respiratory Rate [Bilateral Throughout] Blood Pressure 154/90 145/85 148/83 O2 Sat by Pulse 99 100 99 Oximetry O2 Sat by Pulse Oximetry [ Bilateral Throughout] 02/05/18 02/05/18 02/05/18 12:02 12:15 12:30 Temperature Pulse Rate 92 H 90 88 Pulse Rate [ Bilateral Throughout] Pulse Rate [ From Monitor] Respiratory 27 H 22 Rate Respiratory Rate [Bilateral Throughout] Blood Pressure 148/83 159/83 136/81 O2 Sat by Pulse 99 99 Oximetry O2 Sat by Pulse Oximetry [ Bilateral Throughout] 02/05/18 02/05/18 02/05/18 12:32 12:45 13:00 Temperature Pulse Rate 96 H 90 93 H Pulse Rate [ Bilateral Throughout] Pulse Rate [ From Monitor] Respiratory 26 H 27 H Rate Respiratory Rate [Bilateral Throughout] Blood Pressure 155/80 132/84 154/79 O2 Sat by Pulse 98 98 Oximetry O2 Sat by Pulse Oximetry [ Bilateral Throughout] 02/05/18 02/05/18 13:15 13:30 Temperature Pulse Rate 93 H 91 H Pulse Rate [ Bilateral Throughout] Pulse Rate [ From Monitor] Respiratory 24 Rate Respiratory Rate [Bilateral Throughout] Blood Pressure 145/86 145/86 O2 Sat by Pulse 99 Oximetry O2 Sat by Pulse Oximetry [ Bilateral Throughout] Constitutional: no acute distress Eyes: non-icteric ENT: oropharynx moist, other (ETT 20 cm MARGOT and advanced to 23cm MARGOT) Neck: supple, no lymphadenopathy, no JVD Effort: mildly labored Ascultation: Bilateral: diminished breath sounds, rales Percussion: Bilateral: not dull Cardiovascular: regular rate and rhythm, other (no rubs or murmurs) Gastrointestinal: normoactive bowel sounds, soft, non-tender, non-distended, other (no [place] HSM) Integumentary: normal Extremities: no cyanosis, no edema, pink and warm, pulses normal Neurologic: non-focal exam (grossly), pupils equal and round, CN II-XII normal, motor strength normal and Psychiatric: other (calm) CBC and BMP: 02/06/18 07:52 02/06/18 07:52 ABG, PT/INR, D-dimer: ABG POC ABG pH 7.441 (7.35-7.45) 02/04/18 15:05 POC ABG pCO2 43.6 (35-45) 02/04/18 15:05 POC ABG pO2 109 (80-105) H 02/04/18 15:05 POC ABG HCO3 29.7 02/04/18 15:05 POC ABG Total CO2 31 02/04/18 15:05 POC ABG O2 Sat 98 02/04/18 15:05 PT/INR, D-dimer PT 17.5 Sec. (12.2-14.9) H 01/20/18 07:00 INR 1.35 (0.87-1.13) H 01/20/18 07:00 Abnormal lab findings: Abnormal Labs 01/17/18 01/17/18 01/17/18 15:25 16:15 16:48 WBC RBC Hgb Hct MCH RDW Plt Count Lymph % (Auto) [place] % (Auto) Lymph # [place] # Seg Neutrophils % Seg Neuts % (Manual) Lymphocytes % (Manual) Monocytes % (Manual) Nucleated RBC % Seg Neutrophils # Seg Neutrophils # Man Lymphocytes # (Manual) Monocytes # (Manual) PT INR POC ABG pH 7.099 L POC ABG pCO2 58.9 H POC ABG pO2 149 H VBG pH Sodium Potassium Chloride Carbon Dioxide BUN Creatinine Glucose POC Glucose < 40 L 121 H Hemoglobin A1c Lactic Acid Calcium Ionized Calcium Total Bilirubin AST ALT Alkaline Phosphatase C-Reactive Protein Total Protein Albumin Complement C3 Complement C4 01/17/18 01/17/18 01/17/18 16:54 16:54 16:54 WBC RBC Hgb Hct MCH RDW Plt Count Lymph % (Auto) [place] % (Auto) Lymph # [place] # Seg Neutrophils % Seg Neuts % (Manual) 72.0 H Lymphocytes % (Manual) 3.0 L Monocytes % (Manual) Nucleated RBC % Seg Neutrophils # Seg Neutrophils # Man Lymphocytes # (Manual) 0.2 L Monocytes # (Manual) PT 18.5 H INR 1.45 H POC ABG pH POC ABG pCO2 POC ABG pO2 VBG pH Sodium 136 L Potassium Chloride 97.8 L Carbon Dioxide 16 L BUN 43 H Creatinine 3.3 H Glucose 121 H POC Glucose Hemoglobin A1c Lactic Acid Calcium 6.7 L Ionized Calcium Total Bilirubin AST ALT Alkaline Phosphatase C-Reactive Protein Total Protein 4.4 L Albumin 2.3 L Complement C3 Complement C4 01/17/18 01/17/18 01/17/18 16:54 16:54 17:11 WBC RBC Hgb Hct MCH RDW Plt Count Lymph % (Auto) [place] % (Auto) Lymph # [place] # Seg Neutrophils % Seg Neuts % (Manual) Lymphocytes % (Manual) Monocytes % (Manual) Nucleated RBC % Seg Neutrophils # Seg Neutrophils # Man Lymphocytes # (Manual) Monocytes # (Manual) PT INR POC ABG pH POC ABG pCO2 POC ABG pO2 VBG pH 7.273 L Sodium Potassium Chloride Carbon Dioxide BUN Creatinine Glucose POC Glucose Hemoglobin A1c Lactic Acid 4.70 H* 4.30 H* Calcium Ionized Calcium Total Bilirubin AST ALT Alkaline Phosphatase C-Reactive Protein Total Protein Albumin Complement C3 Complement C4 01/17/18 01/17/18 01/17/18 18:02 18:15 19:21 WBC RBC Hgb Hct MCH RDW Plt Count Lymph % (Auto) [place] % (Auto) Lymph # [place] # Seg Neutrophils % Seg Neuts % (Manual) Lymphocytes % (Manual) Monocytes % (Manual) Nucleated RBC % Seg Neutrophils # Seg Neutrophils # Man Lymphocytes # (Manual) Monocytes # (Manual) PT INR POC ABG pH 7.177 L POC ABG pCO2 POC ABG pO2 VBG pH Sodium Potassium Chloride Carbon Dioxide BUN Creatinine Glucose POC Glucose < 40 L Hemoglobin A1c Lactic Acid 3.00 H* Calcium Ionized Calcium Total Bilirubin AST ALT Alkaline Phosphatase C-Reactive Protein Total Protein Albumin Complement C3 Complement C4 01/17/18 01/17/18 01/17/18 22:36 22:36 23:16 WBC RBC Hgb Hct MCH RDW Plt Count Lymph % (Auto) [place] % (Auto) Lymph # [place] # Seg Neutrophils % Seg Neuts % (Manual) Lymphocytes % (Manual) Monocytes % (Manual) Nucleated RBC % Seg Neutrophils # Seg Neutrophils # Man Lymphocytes # (Manual) Monocytes # (Manual) PT INR POC ABG pH 7.112 L POC ABG pCO2 50.1 H POC ABG pO2 50 L VBG pH Sodium Potassium Chloride Carbon Dioxide BUN Creatinine Glucose POC Glucose Hemoglobin A1c 9.0 H Lactic Acid 5.50 H* Calcium Ionized Calcium Total Bilirubin AST ALT Alkaline Phosphatase C-Reactive Protein Total Protein Albumin Complement C3 Complement C4 01/18/18 01/18/18 01/18/18 01:26 03:21 03:21 WBC RBC Hgb Hct MCH RDW Plt Count Lymph % (Auto) [place] % (Auto) Lymph # [place] # Seg Neutrophils % Seg Neuts % (Manual) 27.0 L Lymphocytes % (Manual) 3.0 L Monocytes % (Manual) 14.0 H Nucleated RBC % Seg Neutrophils # Seg Neutrophils # Man Lymphocytes # (Manual) 0.3 L Monocytes # (Manual) 1.4 H PT INR POC ABG pH POC ABG pCO2 POC ABG pO2 VBG pH Sodium Potassium Chloride Carbon Dioxide BUN Creatinine Glucose POC Glucose 107 H Hemoglobin A1c Lactic Acid 8.00 H* Calcium Ionized Calcium Total Bilirubin AST ALT Alkaline Phosphatase C-Reactive Protein Total Protein Albumin Complement C3 Complement C4 01/18/18 01/18/18 01/18/18 03:21 04:40 05:07 WBC RBC Hgb Hct MCH RDW Plt Count Lymph % (Auto) [place] % (Auto) Lymph # [place] # Seg Neutrophils % Seg Neuts % (Manual) Lymphocytes % (Manual) Monocytes % (Manual) Nucleated RBC % Seg Neutrophils # Seg Neutrophils # Man Lymphocytes # (Manual) Monocytes # (Manual) PT INR POC ABG pH 7.093 L POC ABG pCO2 31.5 L POC ABG pO2 77 L VBG pH Sodium Potassium Chloride 96.9 L Carbon Dioxide 14 L BUN 47 H Creatinine 3.4 H Glucose POC Glucose Hemoglobin A1c Lactic Acid 11.10 H* Calcium 6.4 L Ionized Calcium Total Bilirubin AST 47 H ALT Alkaline Phosphatase C-Reactive Protein Total Protein 4.3 L Albumin 2.4 L Complement C3 Complement C4 01/18/18 01/18/18 01/18/18 06:29 07:06 11:44 WBC RBC Hgb Hct MCH RDW Plt Count Lymph % (Auto) [place] % (Auto) Lymph # [place] # Seg Neutrophils % Seg Neuts % (Manual) Lymphocytes % (Manual) Monocytes % (Manual) Nucleated RBC % Seg Neutrophils # Seg Neutrophils # Man Lymphocytes # (Manual) Monocytes # (Manual) PT INR POC ABG pH POC ABG pCO2 POC ABG pO2 VBG pH Sodium Potassium Chloride Carbon Dioxide BUN Creatinine Glucose POC Glucose 47 L 149 H < 40 L Hemoglobin A1c Lactic Acid Calcium Ionized Calcium Total Bilirubin AST ALT Alkaline Phosphatase C-Reactive Protein Total Protein Albumin Complement C3 Complement C4 01/18/18 01/18/18 01/18/18 11:46 14:15 18:01 WBC RBC Hgb Hct MCH RDW Plt Count Lymph % (Auto) [place] % (Auto) Lymph # [place] # Seg Neutrophils % Seg Neuts % (Manual) Lymphocytes % (Manual) Monocytes % (Manual) Nucleated RBC % Seg Neutrophils # Seg Neutrophils # Man Lymphocytes # (Manual) Monocytes # (Manual) PT INR POC ABG pH POC ABG pCO2 POC ABG pO2 VBG pH Sodium Potassium Chloride Carbon Dioxide BUN Creatinine Glucose POC Glucose 116 H < 40 L Hemoglobin A1c Lactic Acid 10.00 H* Calcium Ionized Calcium Total Bilirubin AST ALT Alkaline Phosphatase C-Reactive Protein Total Protein Albumin Complement C3 Complement C4 01/18/18 01/18/18 01/18/18 18:02 23:25 23:27 WBC RBC Hgb Hct MCH RDW Plt Count Lymph % (Auto) [place] % (Auto) Lymph # [place] # Seg Neutrophils % Seg Neuts % (Manual) Lymphocytes % (Manual) Monocytes % (Manual) Nucleated RBC % Seg Neutrophils # Seg Neutrophils # Man Lymphocytes # (Manual) Monocytes # (Manual) PT INR POC ABG pH POC ABG pCO2 POC ABG pO2 VBG pH Sodium Potassium Chloride Carbon Dioxide BUN Creatinine Glucose POC Glucose 136 H < 40 L < 40 L Hemoglobin A1c Lactic Acid Calcium Ionized Calcium Total Bilirubin AST ALT Alkaline Phosphatase C-Reactive Protein Total Protein Albumin Complement C3 Complement C4 01/19/18 01/19/18 01/19/18 04:02 06:50 06:50 WBC 18.5 H RBC Hgb Hct MCH RDW Plt Count 136 L Lymph % (Auto) [place] % (Auto) Lymph # [place] # Seg Neutrophils % Seg Neuts % (Manual) 86.0 H Lymphocytes % (Manual) 4.0 L Monocytes % (Manual) Nucleated RBC % Seg Neutrophils # Seg Neutrophils # Man 15.9 H Lymphocytes # (Manual) 0.7 L Monocytes # (Manual) 1.1 H PT 21.3 H INR 1.73 H POC ABG pH POC ABG pCO2 28.3 L POC ABG pO2 57 L VBG pH Sodium Potassium Chloride Carbon Dioxide BUN Creatinine Glucose POC Glucose Hemoglobin A1c Lactic Acid Calcium Ionized Calcium Total Bilirubin AST ALT Alkaline Phosphatase C-Reactive Protein Total Protein Albumin Complement C3 Complement C4 01/19/18 01/19/18 01/19/18 06:50 08:45 11:17 WBC RBC Hgb Hct MCH RDW Plt Count Lymph % (Auto) [place] % (Auto) Lymph # [place] # Seg Neutrophils % Seg Neuts % (Manual) Lymphocytes % (Manual) Monocytes % (Manual) Nucleated RBC % Seg Neutrophils # Seg Neutrophils # Man Lymphocytes # (Manual) Monocytes # (Manual) PT INR POC ABG pH POC ABG pCO2 POC ABG pO2 VBG pH Sodium 135 L Potassium Chloride 92.8 L Carbon Dioxide 19 L BUN 31 H Creatinine 2.6 H Glucose POC Glucose 110 H Hemoglobin A1c Lactic Acid 7.90 H* Calcium 7.1 L Ionized Calcium Total Bilirubin 1.60 H AST 2526 H ALT 1187 H Alkaline Phosphatase 133 H C-Reactive Protein Total Protein 4.8 L Albumin 2.0 L Complement C3 Complement C4 01/19/18 01/19/18 01/19/18 11:31 22:12 23:34 WBC RBC Hgb Hct MCH RDW Plt Count Lymph % (Auto) [place] % (Auto) Lymph # [place] # Seg Neutrophils % Seg Neuts % (Manual) Lymphocytes % (Manual) Monocytes % (Manual) Nucleated RBC % Seg Neutrophils # Seg Neutrophils # Man Lymphocytes # (Manual) Monocytes # (Manual) PT INR POC ABG pH POC ABG pCO2 31.6 L POC ABG pO2 59 L VBG pH Sodium Potassium Chloride Carbon Dioxide BUN Creatinine Glucose POC Glucose 131 H 53 L Hemoglobin A1c Lactic Acid Calcium Ionized Calcium Total Bilirubin AST ALT Alkaline Phosphatase C-Reactive Protein Total Protein Albumin Complement C3 Complement C4 01/20/18 01/20/18 01/20/18 05:18 05:18 05:19 WBC 19.7 H RBC Hgb Hct MCH 27 L RDW Plt Count 84 L Lymph % (Auto) [place] % (Auto) Lymph # [place] # Seg Neutrophils % Seg Neuts % (Manual) 84.0 H Lymphocytes % (Manual) 2.0 L Monocytes % (Manual) 8.0 H Nucleated RBC % Seg Neutrophils # Seg Neutrophils # Man 16.5 H Lymphocytes # (Manual) 0.4 L Monocytes # (Manual) 1.6 H PT INR POC ABG pH POC ABG pCO2 POC ABG pO2 VBG pH Sodium 136 L Potassium Chloride 96.9 L Carbon Dioxide 17 L BUN 65 H Creatinine 4.1 H D Glucose 104 H POC Glucose 125 H Hemoglobin A1c Lactic Acid Calcium 7.1 L Ionized Calcium Total Bilirubin 1.60 H AST 1702 H ALT 1141 H Alkaline Phosphatase 172 H C-Reactive Protein Total Protein 5.0 L Albumin 1.7 L Complement C3 Complement C4 01/20/18 01/20/18 01/20/18 07:00 11:48 13:54 WBC RBC Hgb Hct MCH RDW Plt Count Lymph % (Auto) [place] % (Auto) Lymph # [place] # Seg Neutrophils % Seg Neuts % (Manual) Lymphocytes % (Manual) Monocytes % (Manual) Nucleated RBC % Seg Neutrophils # Seg Neutrophils # Man Lymphocytes # (Manual) Monocytes # (Manual) PT 17.5 H INR 1.35 H POC ABG pH POC ABG pCO2 POC ABG pO2 VBG pH Sodium Potassium Chloride Carbon Dioxide BUN Creatinine Glucose POC Glucose 109 H Hemoglobin A1c Lactic Acid Calcium Ionized Calcium Total Bilirubin AST ALT Alkaline Phosphatase C-Reactive Protein 37.50 H Total Protein Albumin Complement C3 Complement C4 01/20/18 01/20/18 01/20/18 17:28 17:51 20:50 WBC RBC Hgb Hct MCH RDW Plt Count Lymph % (Auto) [place] % (Auto) Lymph # [place] # Seg Neutrophils % Seg Neuts % (Manual) Lymphocytes % (Manual) Monocytes % (Manual) Nucleated RBC % Seg Neutrophils # Seg Neutrophils # Man Lymphocytes # (Manual) Monocytes # (Manual) PT INR POC ABG pH POC ABG pCO2 POC ABG pO2 VBG pH Sodium Potassium Chloride Carbon Dioxide BUN Creatinine Glucose POC Glucose 140 H Hemoglobin A1c Lactic Acid 2.70 H* 2.30 H* Calcium Ionized Calcium Total Bilirubin AST ALT Alkaline Phosphatase C-Reactive Protein Total Protein Albumin Complement C3 Complement C4 01/20/18 01/20/18 01/20/18 23:55 Unknown Unknown WBC RBC Hgb Hct MCH RDW Plt Count Lymph % (Auto) [place] % (Auto) Lymph # [place] # Seg Neutrophils % Seg Neuts % (Manual) Lymphocytes % (Manual) Monocytes % (Manual) Nucleated RBC % Seg Neutrophils # Seg Neutrophils # Man Lymphocytes # (Manual) Monocytes # (Manual) PT INR POC ABG pH POC ABG pCO2 POC ABG pO2 VBG pH Sodium Potassium Chloride Carbon Dioxide BUN Creatinine Glucose POC Glucose 149 H Hemoglobin A1c Lactic Acid 2.50 H* Calcium Ionized Calcium Total Bilirubin AST ALT Alkaline Phosphatase C-Reactive Protein Total Protein Albumin Complement C3 47 L Complement C4 01/20/18 01/21/18 01/21/18 Unknown 00:12 04:27 WBC RBC Hgb Hct MCH RDW Plt Count Lymph % (Auto) [place] % (Auto) Lymph # [place] # Seg Neutrophils % Seg Neuts % (Manual) Lymphocytes % (Manual) Monocytes % (Manual) Nucleated RBC % Seg Neutrophils # Seg Neutrophils # Man Lymphocytes # (Manual) Monocytes # (Manual) PT INR POC ABG pH POC ABG pCO2 33.8 L POC ABG pO2 72 L VBG pH Sodium Potassium Chloride Carbon Dioxide BUN Creatinine Glucose POC Glucose 134 H Hemoglobin A1c Lactic Acid Calcium Ionized Calcium Total Bilirubin AST ALT Alkaline Phosphatase C-Reactive Protein Total Protein Albumin Complement C3 Complement C4 9 L 01/21/18 01/21/18 01/21/18 05:00 05:00 05:00 WBC 21.7 H RBC Hgb Hct MCH 27 L RDW Plt Count 67 L Lymph % (Auto) [place] % (Auto) Lymph # [place] # Seg Neutrophils % Seg Neuts % (Manual) 71.0 H Lymphocytes % (Manual) 9.0 L Monocytes % (Manual) Nucleated RBC % 4.0 H Seg Neutrophils # Seg Neutrophils # Man 15.4 H Lymphocytes # (Manual) Monocytes # (Manual) PT INR POC ABG pH POC ABG pCO2 POC ABG pO2 VBG pH Sodium Potassium Chloride Carbon Dioxide 21 L BUN 71 H Creatinine 4.1 H Glucose 149 H POC Glucose Hemoglobin A1c Lactic Acid 2.10 H* Calcium 7.5 L Ionized Calcium Total Bilirubin AST 494 H ALT 780 H Alkaline Phosphatase 151 H C-Reactive Protein Total Protein 4.9 L Albumin 1.9 L Complement C3 Complement C4 01/21/18 01/21/18 01/21/18 05:18 12:20 18:07 WBC RBC Hgb Hct MCH RDW Plt Count Lymph % (Auto) [place] % (Auto) Lymph # [place] # Seg Neutrophils % Seg Neuts % (Manual) Lymphocytes % (Manual) Monocytes % (Manual) Nucleated RBC % Seg Neutrophils # Seg Neutrophils # Man Lymphocytes # (Manual) Monocytes # (Manual) PT INR POC ABG pH POC ABG pCO2 POC ABG pO2 VBG pH Sodium Potassium Chloride Carbon Dioxide BUN Creatinine Glucose POC Glucose 132 H 158 H 143 H Hemoglobin A1c Lactic Acid Calcium Ionized Calcium Total Bilirubin AST ALT Alkaline Phosphatase C-Reactive Protein Total Protein Albumin Complement C3 Complement C4 01/21/18 01/22/18 01/22/18 23:40 03:48 04:10 WBC 24.9 H RBC Hgb Hct MCH 27 L RDW Plt Count 80 L Lymph % (Auto) [place] % (Auto) Lymph # [place] # Seg Neutrophils % Seg Neuts % (Manual) Lymphocytes % (Manual) Monocytes % (Manual) Nucleated RBC % Seg Neutrophils # Seg Neutrophils # Man Lymphocytes # (Manual) Monocytes # (Manual) PT INR POC ABG pH POC ABG pCO2 POC ABG pO2 65 L VBG pH Sodium Potassium Chloride Carbon Dioxide BUN Creatinine Glucose POC Glucose 136 H Hemoglobin A1c Lactic Acid Calcium Ionized Calcium Total Bilirubin AST ALT Alkaline Phosphatase C-Reactive Protein Total Protein Albumin Complement C3 Complement C4 01/22/18 01/22/18 01/22/18 04:10 05:56 11:30 WBC RBC Hgb Hct MCH RDW Plt Count Lymph % (Auto) [place] % (Auto) Lymph # [place] # Seg Neutrophils % Seg Neuts % (Manual) Lymphocytes % (Manual) Monocytes % (Manual) Nucleated RBC % Seg Neutrophils # Seg Neutrophils # Man Lymphocytes # (Manual) Monocytes # (Manual) PT INR POC ABG pH POC ABG pCO2 POC ABG pO2 VBG pH Sodium Potassium Chloride 97.7 L Carbon Dioxide BUN 72 H Creatinine 3.6 H Glucose 145 H POC Glucose 139 H 156 H Hemoglobin A1c Lactic Acid Calcium 7.3 L Ionized Calcium Total Bilirubin AST 146 H ALT 547 H Alkaline Phosphatase C-Reactive Protein Total Protein 5.2 L Albumin 2.3 L Complement C3 Complement C4 01/22/18 01/23/18 01/23/18 17:41 00:00 04:39 WBC RBC Hgb Hct MCH RDW Plt Count Lymph % (Auto) [place] % (Auto) Lymph # [place] # Seg Neutrophils % Seg Neuts % (Manual) Lymphocytes % (Manual) Monocytes % (Manual) Nucleated RBC % Seg Neutrophils # Seg Neutrophils # Man Lymphocytes # (Manual) Monocytes # (Manual) PT INR POC ABG pH POC ABG pCO2 31.9 L POC ABG pO2 62 L VBG pH Sodium Potassium Chloride Carbon Dioxide BUN Creatinine Glucose POC Glucose 185 H 150 H Hemoglobin A1c Lactic Acid Calcium Ionized Calcium Total Bilirubin AST ALT Alkaline Phosphatase C-Reactive Protein Total Protein Albumin Complement C3 Complement C4 01/23/18 01/23/18 01/23/18 05:24 11:38 14:20 WBC RBC Hgb Hct MCH RDW Plt Count Lymph % (Auto) [place] % (Auto) Lymph # [place] # Seg Neutrophils % Seg Neuts % (Manual) Lymphocytes % (Manual) Monocytes % (Manual) Nucleated RBC % Seg Neutrophils # Seg Neutrophils # Man Lymphocytes # (Manual) Monocytes # (Manual) PT INR POC ABG pH POC ABG pCO2 31.4 L POC ABG pO2 55 L VBG pH Sodium Potassium Chloride Carbon Dioxide BUN Creatinine Glucose POC Glucose 215 H 182 H Hemoglobin A1c Lactic Acid Calcium Ionized Calcium Total Bilirubin AST ALT Alkaline Phosphatase C-Reactive Protein Total Protein Albumin Complement C3 Complement C4 01/23/18 01/24/18 01/24/18 17:26 00:10 03:40 WBC 34.5 H RBC Hgb Hct MCH 27 L RDW Plt Count 130 L Lymph % (Auto) [place] % (Auto) Lymph # [place] # Seg Neutrophils % Seg Neuts % (Manual) Lymphocytes % (Manual) Monocytes % (Manual) Nucleated RBC % Seg Neutrophils # Seg Neutrophils # Man Lymphocytes # (Manual) Monocytes # (Manual) PT INR POC ABG pH POC ABG pCO2 POC ABG pO2 VBG pH Sodium Potassium Chloride Carbon Dioxide BUN Creatinine Glucose POC Glucose 252 H 225 H Hemoglobin A1c Lactic Acid Calcium Ionized Calcium Total Bilirubin AST ALT Alkaline Phosphatase C-Reactive Protein Total Protein Albumin Complement C3 Complement C4 01/24/18 01/24/18 01/24/18 03:40 06:06 11:36 WBC RBC Hgb Hct MCH RDW Plt Count Lymph % (Auto) [place] % (Auto) Lymph # [place] # Seg Neutrophils % Seg Neuts % (Manual) Lymphocytes % (Manual) Monocytes % (Manual) Nucleated RBC % Seg Neutrophils # Seg Neutrophils # Man Lymphocytes # (Manual) Monocytes # (Manual) PT INR POC ABG pH POC ABG pCO2 POC ABG pO2 VBG pH Sodium Potassium 5.7 H D Chloride 95.6 L Carbon Dioxide 20 L BUN 96 H Creatinine 4.2 H Glucose 166 H POC Glucose 162 H 160 H Hemoglobin A1c Lactic Acid Calcium 7.3 L Ionized Calcium Total Bilirubin AST 52 H ALT 235 H Alkaline Phosphatase C-Reactive Protein Total Protein 5.1 L Albumin 2.5 L Complement C3 Complement C4 01/24/18 01/24/18 01/25/18 15:08 17:32 00:04 WBC RBC Hgb Hct MCH RDW Plt Count Lymph % (Auto) [place] % (Auto) Lymph # [place] # Seg Neutrophils % Seg Neuts % (Manual) Lymphocytes % (Manual) Monocytes % (Manual) Nucleated RBC % Seg Neutrophils # Seg Neutrophils # Man Lymphocytes # (Manual) Monocytes # (Manual) PT INR POC ABG pH POC ABG pCO2 POC ABG pO2 VBG pH Sodium Potassium Chloride Carbon Dioxide BUN Creatinine Glucose POC Glucose 160 H 169 H Hemoglobin A1c Lactic Acid Calcium Ionized Calcium Total Bilirubin AST ALT Alkaline Phosphatase C-Reactive Protein 3.30 H Total Protein Albumin Complement C3 Complement C4 01/25/18 01/25/18 01/25/18 04:34 05:25 11:46 WBC RBC Hgb Hct MCH RDW Plt Count Lymph % (Auto) [place] % (Auto) Lymph # [place] # Seg Neutrophils % Seg Neuts % (Manual) Lymphocytes % (Manual) Monocytes % (Manual) Nucleated RBC % Seg Neutrophils # Seg Neutrophils # Man Lymphocytes # (Manual) Monocytes # (Manual) PT INR POC ABG pH 7.342 L POC ABG pCO2 48.7 H POC ABG pO2 VBG pH Sodium Potassium Chloride Carbon Dioxide BUN Creatinine Glucose POC Glucose 133 H 121 H Hemoglobin A1c Lactic Acid Calcium Ionized Calcium Total Bilirubin AST ALT Alkaline Phosphatase C-Reactive Protein Total Protein Albumin Complement C3 Complement C4 01/25/18 01/25/18 01/26/18 17:42 23:50 04:13 WBC RBC Hgb Hct MCH RDW Plt Count Lymph % (Auto) [place] % (Auto) Lymph # [place] # Seg Neutrophils % Seg Neuts % (Manual) Lymphocytes % (Manual) Monocytes % (Manual) Nucleated RBC % Seg Neutrophils # Seg Neutrophils # Man Lymphocytes # (Manual) Monocytes # (Manual) PT INR POC ABG pH POC ABG pCO2 POC ABG pO2 70 L VBG pH Sodium Potassium Chloride Carbon Dioxide BUN Creatinine Glucose POC Glucose 150 H 149 H Hemoglobin A1c Lactic Acid Calcium Ionized Calcium Total Bilirubin AST ALT Alkaline Phosphatase C-Reactive Protein Total Protein Albumin Complement C3 Complement C4 01/26/18 01/26/18 01/26/18 05:25 06:20 06:20 WBC 21.0 H RBC Hgb Hct MCH RDW Plt Count Lymph % (Auto) [place] % (Auto) Lymph # [place] # Seg Neutrophils % Seg Neuts % (Manual) 95.0 H Lymphocytes % (Manual) 1.0 L Monocytes % (Manual) Nucleated RBC % Seg Neutrophils # Seg Neutrophils # Man 20.0 H Lymphocytes # (Manual) 0.2 L Monocytes # (Manual) PT INR POC ABG pH POC ABG pCO2 POC ABG pO2 VBG pH Sodium Potassium 5.9 H Chloride 95.7 L Carbon Dioxide BUN 102 H Creatinine 4.6 H Glucose POC Glucose 107 H Hemoglobin A1c Lactic Acid Calcium 6.6 L Ionized Calcium Total Bilirubin AST ALT Alkaline Phosphatase C-Reactive Protein Total Protein Albumin Complement C3 Complement C4 01/26/18 01/26/18 01/27/18 12:19 18:09 00:17 WBC RBC Hgb Hct MCH RDW Plt Count Lymph % (Auto) [place] % (Auto) Lymph # [place] # Seg Neutrophils % Seg Neuts % (Manual) Lymphocytes % (Manual) Monocytes % (Manual) Nucleated RBC % Seg Neutrophils # Seg Neutrophils # Man Lymphocytes # (Manual) Monocytes # (Manual) PT INR POC ABG pH POC ABG pCO2 POC ABG pO2 VBG pH Sodium Potassium Chloride Carbon Dioxide BUN Creatinine Glucose POC Glucose 151 H 110 H 159 H Hemoglobin A1c Lactic Acid Calcium Ionized Calcium Total Bilirubin AST ALT Alkaline Phosphatase C-Reactive Protein Total Protein Albumin Complement C3 Complement C4 01/27/18 01/27/18 01/27/18 05:20 05:20 05:43 WBC 23.3 H RBC Hgb Hct MCH 27 L RDW Plt Count Lymph % (Auto) [place] % (Auto) Lymph # [place] # Seg Neutrophils % Seg Neuts % (Manual) 97.0 H Lymphocytes % (Manual) 0 L Monocytes % (Manual) Nucleated RBC % Seg Neutrophils # Seg Neutrophils # Man 22.6 H Lymphocytes # (Manual) 0.0 L Monocytes # (Manual) PT INR POC ABG pH POC ABG pCO2 POC ABG pO2 VBG pH Sodium Potassium 5.7 H Chloride 93.9 L Carbon Dioxide 21 L BUN 121 H Creatinine 5.2 H Glucose 131 H POC Glucose 121 H Hemoglobin A1c Lactic Acid Calcium 6.1 L Ionized Calcium Total Bilirubin AST ALT Alkaline Phosphatase C-Reactive Protein Total Protein Albumin Complement C3 Complement C4 01/27/18 01/27/18 01/28/18 12:16 17:32 00:05 WBC RBC Hgb Hct MCH RDW Plt Count Lymph % (Auto) [place] % (Auto) Lymph # [place] # Seg Neutrophils % Seg Neuts % (Manual) Lymphocytes % (Manual) Monocytes % (Manual) Nucleated RBC % Seg Neutrophils # Seg Neutrophils # Man Lymphocytes # (Manual) Monocytes # (Manual) PT INR POC ABG pH POC ABG pCO2 POC ABG pO2 VBG pH Sodium Potassium Chloride Carbon Dioxide BUN Creatinine Glucose POC Glucose 161 H 146 H 128 H Hemoglobin A1c Lactic Acid Calcium Ionized Calcium Total Bilirubin AST ALT Alkaline Phosphatase C-Reactive Protein Total Protein Albumin Complement C3 Complement C4 01/28/18 01/28/18 01/28/18 04:24 05:43 06:30 WBC 24.8 H RBC Hgb Hct MCH RDW Plt Count Lymph % (Auto) [place] % (Auto) Lymph # [place] # Seg Neutrophils % Seg Neuts % (Manual) 91.0 H Lymphocytes % (Manual) 4.0 L Monocytes % (Manual) Nucleated RBC % Seg Neutrophils # Seg Neutrophils # Man 22.6 H Lymphocytes # (Manual) 1.0 L Monocytes # (Manual) 1.0 H PT INR POC ABG pH POC ABG pCO2 POC ABG pO2 77 L VBG pH Sodium Potassium Chloride Carbon Dioxide BUN Creatinine Glucose POC Glucose 137 H Hemoglobin A1c Lactic Acid Calcium Ionized Calcium Total Bilirubin AST ALT Alkaline Phosphatase C-Reactive Protein Total Protein Albumin Complement C3 Complement C4 01/28/18 01/28/18 01/28/18 06:30 11:30 18:08 WBC RBC Hgb Hct MCH RDW Plt Count Lymph % (Auto) [place] % (Auto) Lymph # [place] # Seg Neutrophils % Seg Neuts % (Manual) Lymphocytes % (Manual) Monocytes % (Manual) Nucleated RBC % Seg Neutrophils # Seg Neutrophils # Man Lymphocytes # (Manual) Monocytes # (Manual) PT INR POC ABG pH POC ABG pCO2 POC ABG pO2 VBG pH Sodium Potassium Chloride 95.2 L Carbon Dioxide BUN 70 H Creatinine 3.7 H Glucose 135 H POC Glucose 183 H 129 H Hemoglobin A1c Lactic Acid Calcium 6.4 L Ionized Calcium Total Bilirubin AST ALT Alkaline Phosphatase C-Reactive Protein Total Protein Albumin Complement C3 Complement C4 01/29/18 01/29/18 01/29/18 00:00 05:50 06:00 WBC 15.8 H RBC 3.37 L Hgb 9.1 L Hct 28.6 L MCH 27 L RDW Plt Count Lymph % (Auto) [place] % (Auto) Lymph # [place] # Seg Neutrophils % Seg Neuts % (Manual) 87.0 H Lymphocytes % (Manual) 7.0 L Monocytes % (Manual) Nucleated RBC % Seg Neutrophils # Seg Neutrophils # Man 13.7 H Lymphocytes # (Manual) 1.1 L Monocytes # (Manual) PT INR POC ABG pH POC ABG pCO2 POC ABG pO2 VBG pH Sodium Potassium Chloride Carbon Dioxide BUN Creatinine Glucose POC Glucose 111 H 120 H Hemoglobin A1c Lactic Acid Calcium Ionized Calcium Total Bilirubin AST ALT Alkaline Phosphatase C-Reactive Protein Total Protein Albumin Complement C3 Complement C4 01/29/18 01/29/18 01/29/18 06:00 06:00 12:29 WBC RBC Hgb Hct MCH RDW Plt Count Lymph % (Auto) [place] % (Auto) Lymph # [place] # Seg Neutrophils % Seg Neuts % (Manual) Lymphocytes % (Manual) Monocytes % (Manual) Nucleated RBC % Seg Neutrophils # Seg Neutrophils # Man Lymphocytes # (Manual) Monocytes # (Manual) PT INR POC ABG pH POC ABG pCO2 POC ABG pO2 VBG pH Sodium 136 L Potassium Chloride 95.4 L Carbon Dioxide BUN 94 H Creatinine 4.2 H Glucose 120 H POC Glucose 134 H Hemoglobin A1c Lactic Acid Calcium 6.5 L Ionized Calcium 3.9 L Total Bilirubin AST ALT Alkaline Phosphatase C-Reactive Protein Total Protein 4.5 L Albumin 2.0 L Complement C3 Complement C4 01/29/18 01/30/18 01/30/18 18:32 00:12 04:47 WBC RBC Hgb Hct MCH RDW Plt Count Lymph % (Auto) [place] % (Auto) Lymph # [place] # Seg Neutrophils % Seg Neuts % (Manual) Lymphocytes % (Manual) Monocytes % (Manual) Nucleated RBC % Seg Neutrophils # Seg Neutrophils # Man Lymphocytes # (Manual) Monocytes # (Manual) PT INR POC ABG pH 7.456 H POC ABG pCO2 POC ABG pO2 VBG pH Sodium Potassium Chloride Carbon Dioxide BUN Creatinine Glucose POC Glucose 158 H 155 H Hemoglobin A1c Lactic Acid Calcium Ionized Calcium Total Bilirubin AST ALT Alkaline Phosphatase C-Reactive Protein Total Protein Albumin Complement C3 Complement C4 01/30/18 01/30/18 01/30/18 12:06 17:46 Unknown WBC 12.8 H RBC 3.09 L Hgb 8.4 L Hct 26.2 L MCH 27 L RDW Plt Count Lymph % (Auto) [place] % (Auto) Lymph # [place] # Seg Neutrophils % Seg Neuts % (Manual) 95.0 H Lymphocytes % (Manual) 1.0 L Monocytes % (Manual) Nucleated RBC % Seg Neutrophils # Seg Neutrophils # Man 12.2 H Lymphocytes # (Manual) 0.1 L Monocytes # (Manual) PT INR POC ABG pH POC ABG pCO2 POC ABG pO2 VBG pH Sodium Potassium Chloride Carbon Dioxide BUN Creatinine Glucose POC Glucose 117 H 166 H Hemoglobin A1c Lactic Acid Calcium Ionized Calcium Total Bilirubin AST ALT Alkaline Phosphatase C-Reactive Protein Total Protein Albumin Complement C3 Complement C4 01/30/18 01/31/18 01/31/18 Unknown 00:04 04:50 WBC 13.6 H RBC 3.53 L Hgb 9.8 L Hct 30.0 L MCH RDW 15.4 H Plt Count Lymph % (Auto) 3.6 L [place] % (Auto) 8.7 H Lymph # 0.5 L [place] # 1.2 H Seg Neutrophils % 87.1 H Seg Neuts % (Manual) Lymphocytes % (Manual) Monocytes % (Manual) Nucleated RBC % Seg Neutrophils # 11.8 H Seg Neutrophils # Man Lymphocytes # (Manual) Monocytes # (Manual) PT INR POC ABG pH POC ABG pCO2 POC ABG pO2 VBG pH Sodium Potassium Chloride Carbon Dioxide BUN 52 H Creatinine 2.9 H Glucose 105 H POC Glucose 155 H Hemoglobin A1c Lactic Acid Calcium 6.7 L Ionized Calcium Total Bilirubin AST ALT Alkaline Phosphatase C-Reactive Protein Total Protein Albumin Complement C3 Complement C4 01/31/18 01/31/18 01/31/18 04:50 17:08 23:38 WBC RBC Hgb Hct MCH RDW Plt Count Lymph % (Auto) [place] % (Auto) Lymph # [place] # Seg Neutrophils % Seg Neuts % (Manual) Lymphocytes % (Manual) Monocytes % (Manual) Nucleated RBC % Seg Neutrophils # Seg Neutrophils # Man Lymphocytes # (Manual) Monocytes # (Manual) PT INR POC ABG pH POC ABG pCO2 POC ABG pO2 VBG pH Sodium Potassium Chloride Carbon Dioxide BUN 70 H Creatinine 3.3 H Glucose 102 H POC Glucose 106 H 136 H Hemoglobin A1c Lactic Acid Calcium 7.1 L Ionized Calcium Total Bilirubin AST ALT Alkaline Phosphatase C-Reactive Protein Total Protein Albumin Complement C3 Complement C4 02/01/18 02/01/18 02/01/18 04:00 04:00 05:25 WBC RBC 3.16 L Hgb 8.7 L Hct 27.5 L MCH RDW Plt Count Lymph % (Auto) 6.4 L [place] % (Auto) 10.2 H Lymph # 0.7 L [place] # 1.1 H Seg Neutrophils % 81.7 H Seg Neuts % (Manual) Lymphocytes % (Manual) Monocytes % (Manual) Nucleated RBC % Seg Neutrophils # 8.6 H Seg Neutrophils # Man Lymphocytes # (Manual) Monocytes # (Manual) PT INR POC ABG pH POC ABG pCO2 POC ABG pO2 VBG pH Sodium Potassium 3.4 L Chloride Carbon Dioxide 31 H BUN 42 H Creatinine 2.2 H Glucose 101 H POC Glucose 163 H Hemoglobin A1c Lactic Acid Calcium 7.1 L Ionized Calcium Total Bilirubin AST ALT Alkaline Phosphatase C-Reactive Protein Total Protein Albumin Complement C3 Complement C4 02/01/18 02/01/18 02/01/18 11:54 18:21 23:34 WBC RBC Hgb Hct MCH RDW Plt Count Lymph % (Auto) [place] % (Auto) Lymph # [place] # Seg Neutrophils % Seg Neuts % (Manual) Lymphocytes % (Manual) Monocytes % (Manual) Nucleated RBC % Seg Neutrophils # Seg Neutrophils # Man Lymphocytes # (Manual) Monocytes # (Manual) PT INR POC ABG pH POC ABG pCO2 POC ABG pO2 VBG pH Sodium Potassium Chloride Carbon Dioxide BUN Creatinine Glucose POC Glucose 123 H 157 H 114 H Hemoglobin A1c Lactic Acid Calcium Ionized Calcium Total Bilirubin AST ALT Alkaline Phosphatase C-Reactive Protein Total Protein Albumin Complement C3 Complement C4 02/02/18 02/02/18 02/02/18 03:30 05:45 17:27 WBC RBC Hgb Hct MCH RDW Plt Count Lymph % (Auto) [place] % (Auto) Lymph # [place] # Seg Neutrophils % Seg Neuts % (Manual) Lymphocytes % (Manual) Monocytes % (Manual) Nucleated RBC % Seg Neutrophils # Seg Neutrophils # Man Lymphocytes # (Manual) Monocytes # (Manual) PT INR POC ABG pH POC ABG pCO2 POC ABG pO2 VBG pH Sodium Potassium 3.3 L Chloride 97.8 L Carbon Dioxide BUN 58 H Creatinine 2.7 H Glucose 111 H POC Glucose 110 H 125 H Hemoglobin A1c Lactic Acid Calcium 7.1 L Ionized Calcium Total Bilirubin AST ALT Alkaline Phosphatase C-Reactive Protein Total Protein Albumin Complement C3 Complement C4 02/02/18 02/03/18 02/03/18 23:34 04:45 05:38 WBC RBC Hgb Hct MCH RDW Plt Count Lymph % (Auto) [place] % (Auto) Lymph # [place] # Seg Neutrophils % Seg Neuts % (Manual) Lymphocytes % (Manual) Monocytes % (Manual) Nucleated RBC % Seg Neutrophils # Seg Neutrophils # Man Lymphocytes # (Manual) Monocytes # (Manual) PT INR POC ABG pH POC ABG pCO2 POC ABG pO2 VBG pH Sodium Potassium Chloride Carbon Dioxide BUN 72 H Creatinine 3.2 H Glucose POC Glucose 153 H 111 H Hemoglobin A1c Lactic Acid Calcium 7.6 L Ionized Calcium Total Bilirubin AST ALT Alkaline Phosphatase C-Reactive Protein Total Protein Albumin Complement C3 Complement C4 02/03/18 02/03/18 02/03/18 11:36 18:26 22:45 WBC RBC Hgb Hct MCH RDW Plt Count Lymph % (Auto) [place] % (Auto) Lymph # [place] # Seg Neutrophils % Seg Neuts % (Manual) Lymphocytes % (Manual) Monocytes % (Manual) Nucleated RBC % Seg Neutrophils # Seg Neutrophils # Man Lymphocytes # (Manual) Monocytes # (Manual) PT INR POC ABG pH POC ABG pCO2 POC ABG pO2 VBG pH Sodium Potassium Chloride Carbon Dioxide BUN Creatinine Glucose POC Glucose 108 H 155 H 141 H Hemoglobin A1c Lactic Acid Calcium Ionized Calcium Total Bilirubin AST ALT Alkaline Phosphatase C-Reactive Protein Total Protein Albumin Complement C3 Complement C4 02/04/18 02/04/18 02/04/18 04:06 11:57 15:05 WBC RBC Hgb Hct MCH RDW Plt Count Lymph % (Auto) [place] % (Auto) Lymph # [place] # Seg Neutrophils % Seg Neuts % (Manual) Lymphocytes % (Manual) Monocytes % (Manual) Nucleated RBC % Seg Neutrophils # Seg Neutrophils # Man Lymphocytes # (Manual) Monocytes # (Manual) PT INR POC ABG pH POC ABG pCO2 POC ABG pO2 109 H VBG pH Sodium 136 L Potassium 3.4 L Chloride 96.7 L Carbon Dioxide BUN 42 H Creatinine 1.9 H Glucose POC Glucose 119 H Hemoglobin A1c Lactic Acid Calcium 7.3 L Ionized Calcium Total Bilirubin AST ALT Alkaline Phosphatase C-Reactive Protein Total Protein Albumin Complement C3 Complement C4 02/05/18 02/05/18 04:10 05:04 WBC RBC Hgb Hct MCH RDW Plt Count Lymph % (Auto) [place] % (Auto) Lymph # [place] # Seg Neutrophils % Seg Neuts % (Manual) Lymphocytes % (Manual) Monocytes % (Manual) Nucleated RBC % Seg Neutrophils # Seg Neutrophils # Man Lymphocytes # (Manual) Monocytes # (Manual) PT INR POC ABG pH POC ABG pCO2 POC ABG pO2 VBG pH Sodium Potassium 3.5 L Chloride Carbon Dioxide BUN 52 H Creatinine 2.2 H Glucose POC Glucose 108 H Hemoglobin A1c Lactic Acid Calcium 7.5 L Ionized Calcium Total Bilirubin AST ALT Alkaline Phosphatase C-Reactive Protein Total Protein Albumin Complement C3 Complement C4 Allied health notes reviewed: nursing
--- NOTE | 2018-02-05 15:32 | Progress Note ---
Assessment and Plan Asked to re-evaluate the pt due to gangrenous changes to upper and lower ext. The gangrenous changes do not appear to be related to Peripheral arterial disease, based upon easily palpable pulses and the recent arterial duplex examination. The pt was admitted with severe sepsis and placed on multiple vasopressor support which likely resulted in peripheral arterial constriction, and subsequent tissue necrosis. Tissue necrosis to both feet appears extensive, I doubt they are salvageable. She certainly is not a good surgical candidate at present. Would continue to allow to demarcate for now. Would only intervene if you believe these are source of sepsis (which they do not to be at present). We do not treat upper ext necrosis, recommend ortho/hand surgeon consult. - Patient Problems (1) Gangrene of lower extremity Current Visit: Yes Status: Acute (2) Gas gangrene of upper extremity Current Visit: Yes Status: Acute Subjective Date of service: 02/05/18 Principal diagnosis: Acute hypoxic respiratory failure, severe sepsis with shock , encephalopathy Interval history: Pt extubated. Drowsy, but responds to verbal stimulus. C/o hands and feet discomfort when asked. Requests analgesics. Objective - Constitutional Vitals: Vital Signs - 12hr 02/05/18 02/05/18 02/05/18 03:30 03:45 04:00 Temperature 99.4 F Pulse Rate 84 86 84 Pulse Rate [ From Monitor] Respiratory 20 21 21 Rate Blood Pressure 123/68 123/68 111/56 O2 Sat by Pulse 99 100 100 Oximetry O2 Sat by Pulse Oximetry [ Bilateral Throughout] 02/05/18 02/05/18 02/05/18 04:15 04:30 04:45 Temperature Pulse Rate 83 83 86 Pulse Rate [ From Monitor] Respiratory 18 20 20 Rate Blood Pressure 111/56 110/57 110/57 O2 Sat by Pulse 100 100 100 Oximetry O2 Sat by Pulse Oximetry [ Bilateral Throughout] 02/05/18 02/05/18 02/05/18 05:01 05:15 05:31 Temperature Pulse Rate 95 H 88 91 H Pulse Rate [ From Monitor] Respiratory 24 22 19 Rate Blood Pressure 123/73 123/73 152/82 O2 Sat by Pulse 100 100 99 Oximetry O2 Sat by Pulse Oximetry [ Bilateral Throughout] 02/05/18 02/05/18 02/05/18 05:45 06:00 06:15 Temperature Pulse Rate 88 84 89 Pulse Rate [ From Monitor] Respiratory 23 23 25 H Rate Blood Pressure 152/82 138/75 138/75 O2 Sat by Pulse 99 100 100 Oximetry O2 Sat by Pulse Oximetry [ Bilateral Throughout] 02/05/18 02/05/18 02/05/18 06:30 06:45 07:00 Temperature Pulse Rate 89 88 89 Pulse Rate [ From Monitor] Respiratory 22 24 22 Rate Blood Pressure 140/76 140/76 139/74 O2 Sat by Pulse 99 100 100 Oximetry O2 Sat by Pulse Oximetry [ Bilateral Throughout] 02/05/18 02/05/18 02/05/18 07:15 07:30 07:45 Temperature Pulse Rate 92 H 93 H 95 H Pulse Rate [ From Monitor] Respiratory 26 H 29 H 27 H Rate Blood Pressure 139/74 144/81 144/81 O2 Sat by Pulse 100 100 100 Oximetry O2 Sat by Pulse Oximetry [ Bilateral Throughout] 02/05/18 02/05/18 02/05/18 08:00 08:05 08:15 Temperature 99.5 F Pulse Rate 95 H 95 H Pulse Rate [ 92 H From Monitor] Respiratory 29 H 26 H 25 H Rate Blood Pressure 145/73 145/73 O2 Sat by Pulse 100 100 100 Oximetry O2 Sat by Pulse Oximetry [ Bilateral Throughout] 02/05/18 02/05/18 02/05/18 08:30 08:45 09:00 Temperature Pulse Rate 92 H 99 H 93 H Pulse Rate [ From Monitor] Respiratory 30 H 27 H 26 H Rate Blood Pressure 139/84 139/84 135/78 O2 Sat by Pulse 100 99 99 Oximetry O2 Sat by Pulse Oximetry [ Bilateral Throughout] 02/05/18 02/05/18 02/05/18 09:15 09:30 09:45 Temperature Pulse Rate 95 H 93 H 96 H Pulse Rate [ From Monitor] Respiratory 26 H 19 29 H Rate Blood Pressure 135/78 140/73 140/73 O2 Sat by Pulse 99 99 99 Oximetry O2 Sat by Pulse Oximetry [ Bilateral Throughout] 02/05/18 02/05/18 02/05/18 10:00 10:05 10:15 Temperature Pulse Rate 95 H 92 H Pulse Rate [ 86 From Monitor] Respiratory 26 H 24 28 H Rate Blood Pressure 144/80 138/75 O2 Sat by Pulse 100 100 99 Oximetry O2 Sat by Pulse Oximetry [ Bilateral Throughout] 02/05/18 02/05/18 02/05/18 10:30 10:45 10:50 Temperature 99.5 F Pulse Rate 95 H 95 H 94 H Pulse Rate [ From Monitor] Respiratory 29 H 28 H Rate Blood Pressure 152/81 141/75 141/75 O2 Sat by Pulse 100 99 Oximetry O2 Sat by Pulse 97 Oximetry [ Bilateral Throughout] 02/05/18 02/05/18 02/05/18 11:00 11:15 11:30 Temperature Pulse Rate 91 H 90 90 Pulse Rate [ From Monitor] Respiratory 28 H 29 H 26 H Rate Blood Pressure 150/78 138/73 154/90 O2 Sat by Pulse 100 100 99 Oximetry O2 Sat by Pulse Oximetry [ Bilateral Throughout] 02/05/18 02/05/18 02/05/18 11:45 12:00 12:02 Temperature 99.6 F Pulse Rate 91 H 90 92 H Pulse Rate [ 90 From Monitor] Respiratory 25 H 27 H Rate Blood Pressure 145/85 148/83 148/83 O2 Sat by Pulse 100 99 Oximetry O2 Sat by Pulse Oximetry [ Bilateral Throughout] 02/05/18 02/05/18 02/05/18 12:15 12:30 12:32 Temperature Pulse Rate 90 88 96 H Pulse Rate [ From Monitor] Respiratory 27 H 22 Rate Blood Pressure 159/83 136/81 155/80 O2 Sat by Pulse 99 99 Oximetry O2 Sat by Pulse Oximetry [ Bilateral Throughout] 02/05/18 02/05/18 02/05/18 12:45 13:00 13:15 Temperature Pulse Rate 90 93 H 93 H Pulse Rate [ From Monitor] Respiratory 26 H 27 H 24 Rate Blood Pressure 132/84 154/79 145/86 O2 Sat by Pulse 98 98 99 Oximetry O2 Sat by Pulse Oximetry [ Bilateral Throughout] 02/05/18 02/05/18 02/05/18 13:30 13:45 14:00 Temperature Pulse Rate 91 H 92 H 93 H Pulse Rate [ From Monitor] Respiratory 19 24 22 Rate Blood Pressure 133/80 157/87 148/82 O2 Sat by Pulse 99 96 97 Oximetry O2 Sat by Pulse Oximetry [ Bilateral Throughout] 02/05/18 02/05/18 02/05/18 14:15 14:20 14:30 Temperature Pulse Rate 94 H 95 H 97 H Pulse Rate [ From Monitor] Respiratory 16 27 H Rate Blood Pressure 154/92 154/92 153/85 O2 Sat by Pulse 96 95 Oximetry O2 Sat by Pulse Oximetry [ Bilateral Throughout] 02/05/18 02/05/18 02/05/18 14:31 14:45 15:00 Temperature 99.5 F Pulse Rate 99 H 96 H 91 H Pulse Rate [ From Monitor] Respiratory 26 H 25 H 25 H Rate Blood Pressure 154/92 149/84 137/82 O2 Sat by Pulse 98 99 Oximetry O2 Sat by Pulse 95 Oximetry [ Bilateral Throughout] General appearance: Present: no acute distress - EENT Eyes: EOM intact ENT: hearing intact - Respiratory Respiratory effort: normal (Extubated, unlabored at rest.) Extremities: pulses intact (easily palp radial and posterior tibial pulse bilaterally. Necrotic tissue over the dorsal surface of both feet making it difficult to palp DP bilat.), normal temperature Extremity abnormal: black (blackened necrotic tissue to bilateral lower ext including most of the volar aspect of the feet. The toes appear mumified. No erythema or drainage appreciated at this point. Blackened tips as well as whole digits to both hands. (see pictures)) - Neurologic Neurologic: no focal deficits - Psychiatric Psychiatric: appropriate mood/affect, no memory intact, cooperative - Additional findings Additional findings: - Labs CBC & Chem 7: 02/01/18 04:00 02/05/18 04:10 Labs: Abnormal lab results 02/04/18 02/05/18 02/05/18 Range/Units 15:05 04:10 05:04 POC ABG pO2 109 H (80-105) Potassium 3.5 L (3.6-5.0) mmol/L BUN 52 H (7-17) mg/dL Creatinine 2.2 H (0.7-1.2) mg/dL POC Glucose 108 H (70-105) Calcium 7.5 L (8.4-10.2) mg/dL
[2018-02-05] MEDS: DILAUDID IV PRN (15:48)
[2018-02-05] MEDS: SODIUM CHLORIDE FLUSH SYRINGE 10 ML IV PRN ×2 (15:53→17:58)
[2018-02-05] MEDS: REGLAN IV PRN (17:58)
[2018-02-05] MEDS: BROVANA NEBU IH SCH (20:10)
[2018-02-05] MEDS: PULMICORT IH SCH (20:10)
[2018-02-06] MEDS: DUONEB *Not for PRN Use IH SCH ×4 (01:49→20:54)
[2018-02-06] MEDS: SODIUM CHLORIDE FLUSH SYRINGE 10 ML IV SCH ×3 (03:24→21:58)
[2018-02-06] MEDS: HumaLOG SUB-Q SCH ×4 (06:02→18:15)
[2018-02-06] MEDS: HEPARIN SUB-Q SCH ×3 (06:12→21:56)
[2018-02-06] MEDS: DILAUDID IV PRN ×3 (06:12→21:55)
[2018-02-06] MEDS: BROVANA NEBU IH SCH ×2 (08:15→20:53)
[2018-02-06] MEDS: PULMICORT IH SCH ×2 (08:15→20:53)
[2018-02-06 08:27] LABS: Basophils % (Auto) 0.7 % (0.0-1.8); Eosinophils # (Auto) 0.2 K/mm3 (0.0-0.4); Eosinophils % (Auto) 2.7 % (0.0-4.3); Hematocrit 24.6 % (30.3-42.9); Hemoglobin 8.1 gm/dl (10.1-14.3); Lymphocytes # (Auto) 0.6 K/mm3 (1.2-5.4); Lymphocytes % (Auto) 11.2 % (13.4-35.0); Mean Corpuscular HGB Conc 33 % (30-34); Mean Corpuscular Hemoglobin 28 pg (28-32); Mean Corpuscular Volume 85 fl (79-97); Monocytes # (Auto) 0.5 K/mm3 (0.0-0.8); Monocytes % (Auto) 8.5 % (0.0-7.3); Platelet Count 152 K/mm3 (140-440); Red Blood Count 2.91 M/mm3 (3.65-5.03); Red Cell Distribution Width 14.7 % (13.2-15.2)
[2018-02-06 08:42] LABS: Calcium 8.1 mg/dL (8.4-10.2)
--- NOTE | 2018-02-06 11:01 | Progress Note ---
Assessment and Plan Assessment and plan: Patient is a 63-year-old woman with a history of coronary artery disease status post coronary artery disease status post stent, permanent pacemaker, hypertension and polysubstance abuse including methamphetamine and cocaine, who presented to the emergency department on 01/17/2018 after being found unresponsive at home. She was intubated and hypotensive requiring vasopressor admission to the ICU. She was extubated 02/05/2018 and transferred out of the icu -Acute combined respiratory failure on ventilator greater than 96 hours status post extubation: treated with oxygen via nasal cannula -Septic shock, resolved s/p vasopressors -Acute on chronic combined heart failure improved, Cardiology has signed off -Large left pleural effusion status post left chest tube: Pulmonology is following -Acute renal failure due to ATN present on admission, improved -Acute toxic metabolic encephalopathy, POA -Shock liver/ischemic hepatitis: Monitor closely, repeat levels -Gangrene of the digits due to the above: vascular surgery did elevated. -Pelvic masses, ?incidental findings -DVT prophylaxis: sq heparin History Interval history: Patient was seen and examined. Follow-up on current diagnosis of shortness of breath which is improved. Overnight uneventful. Patient denies any chest pain , nausea/vomiting or severe headaches. Imaging, nursing note, chart, labs and old chart reviewed. Discussed with patient. Hospitalist Physical - Physical exam Narrative exam: GEN: Ill appearing, BMI 35.3 NAD, AWAKE, ALERT, ORIENTATED HEENT: NCAT, EOMI, PERRL, OP Clear, ngt in nose but partially out NECK: supple, no adenopathy, no thyromegaly, no JVD CVS/HEART: RRR, NORMAL S1S2, pulses present bilaterally CHEST/LUNGS: Diminished breath sounds bilaterally, Symmetrical chest expansion, adequate air entry bilaterally GI/Abdomen: soft, NTND, good bowel sounds, no guarding or rebound /Bladder: no suprapubic tenderness, no CVA or paraspinal tenderness EXT/Skin: no c/c/e, no obvious rash MSK: FROM x 4 Neuro: CN 2-12 grossly intact, no new focal deficits Psych: calm - Constitutional Vitals: Temp Pulse Resp BP Pulse Ox 97.9 F 92 H 20 127/71 95 02/06/18 08:46 02/06/18 08:46 02/06/18 08:46 02/06/18 08:46 02/06/18 08:46 General appearance: Present: no acute distress Results - Labs CBC & Chem 7: 02/06/18 07:52 02/06/18 07:52 Labs: Laboratory Last Values WBC 5.6 K/mm3 (4.5-11.0) 02/06/18 07:52 RBC 2.91 M/mm3 (3.65-5.03) L 02/06/18 07:52 Hgb 8.1 gm/dl (10.1-14.3) L 02/06/18 07:52 Hct 24.6 % (30.3-42.9) L 02/06/18 07:52 MCV 85 fl (79-97) 02/06/18 07:52 MCH 28 pg (28-32) 02/06/18 07:52 MCHC 33 % (30-34) 02/06/18 07:52 RDW 14.7 % (13.2-15.2) 02/06/18 07:52 Plt Count 152 K/mm3 (140-440) 02/06/18 07:52 Lymph % (Auto) 11.2 % (13.4-35.0) L 02/06/18 07:52 Mills % (Auto) 8.5 % (0.0-7.3) H 02/06/18 07:52 Eos % (Auto) 2.7 % (0.0-4.3) 02/06/18 07:52 Baso % (Auto) 0.7 % (0.0-1.8) 02/06/18 07:52 Lymph # 0.6 K/mm3 (1.2-5.4) L 02/06/18 07:52 Mills # 0.5 K/mm3 (0.0-0.8) 02/06/18 07:52 Eos # 0.2 K/mm3 (0.0-0.4) 02/06/18 07:52 Baso # 0.0 K/mm3 (0.0-0.1) 02/06/18 07:52 Add Manual Diff Complete 01/30/18 Unknown Total Counted 100 01/30/18 Unknown Seg Neutrophils % 76.9 % (40.0-70.0) H 02/06/18 07:52 Seg Neuts % (Manual) 95.0 % (40.0-70.0) H 01/30/18 Unknown Band Neutrophils % 2.0 % 01/30/18 Unknown Lymphocytes % (Manual) 1.0 % (13.4-35.0) L 01/30/18 Unknown Reactive Lymphs % (Man) 0 % 01/30/18 Unknown Monocytes % (Manual) 2.0 % (0.0-7.3) 01/30/18 Unknown Eosinophils % (Manual) 0 % (0.0-4.3) 01/30/18 Unknown Basophils % (Manual) 0 % (0.0-1.8) 01/30/18 Unknown Metamyelocytes % 0 % 01/30/18 Unknown Myelocytes % 0 % 01/30/18 Unknown Promyelocytes % 0 % 01/30/18 Unknown Blast Cells % 0 % 01/30/18 Unknown Nucleated RBC % Not Reportable 01/30/18 Unknown Seg Neutrophils # 4.3 K/mm3 (1.8-7.7) 02/06/18 07:52 Seg Neutrophils # Man 12.2 K/mm3 (1.8-7.7) H 01/30/18 Unknown Band Neutrophils # 0.3 K/mm3 01/30/18 Unknown Lymphocytes # (Manual) 0.1 K/mm3 (1.2-5.4) L 01/30/18 Unknown Abs React Lymphs (Man) 0.0 K/mm3 01/30/18 Unknown Monocytes # (Manual) 0.3 K/mm3 (0.0-0.8) 01/30/18 Unknown Eosinophils # (Manual) 0.0 K/mm3 (0.0-0.4) 01/30/18 Unknown Basophils # (Manual) 0.0 K/mm3 (0.0-0.1) 01/30/18 Unknown Metamyelocytes # 0.0 K/mm3 01/30/18 Unknown Myelocytes # 0.0 K/mm3 01/30/18 Unknown Promyelocytes # 0.0 K/mm3 01/30/18 Unknown Blast Cells # 0.0 K/mm3 01/30/18 Unknown WBC Morphology Not Reportable 01/30/18 Unknown Hypersegmented Neuts Not Reportable 01/30/18 Unknown Hyposegmented Neuts Not Reportable 01/30/18 Unknown Hypogranular Neuts Not Reportable 01/30/18 Unknown Smudge Cells Not Reportable 01/30/18 Unknown Toxic Granulation Not Reportable 01/30/18 Unknown Toxic Vacuolation Not Reportable 01/30/18 Unknown Dohle Bodies Not Reportable 01/30/18 Unknown Pelger-Huet Anomaly Not Reportable 01/30/18 Unknown Opal Rods Not Reportable 01/30/18 Unknown Platelet Estimate Consistent w auto 01/30/18 Unknown Clumped Platelets Not Reportable 01/30/18 Unknown Plt Clumps, EDTA Not Reportable 01/30/18 Unknown Large Platelets Not Reportable 01/30/18 Unknown Giant Platelets Not Reportable 01/30/18 Unknown Platelet Satelliting Not Reportable 01/30/18 Unknown Plt Morphology Comment Not Reportable 01/30/18 Unknown RBC Morphology Not Reportable 01/30/18 Unknown Dimorphic RBCs Not Reportable 01/30/18 Unknown Polychromasia Not Reportable 01/30/18 Unknown Hypochromasia 1+ 01/30/18 Unknown Poikilocytosis Not Reportable 01/30/18 Unknown Anisocytosis Not Reportable 01/30/18 Unknown Microcytosis Few 01/30/18 Unknown Macrocytosis Not Reportable 01/30/18 Unknown Spherocytes Not Reportable 01/30/18 Unknown Pappenheimer Bodies Not Reportable 01/30/18 Unknown Sickle Cells Not Reportable 01/30/18 Unknown Target Cells Not Reportable 01/30/18 Unknown Tear Drop Cells Not Reportable 01/30/18 Unknown Ovalocytes Not Reportable 01/30/18 Unknown Stomatocytes Few 01/30/18 Unknown Helmet Cells Not Reportable 01/30/18 Unknown Frankel-[place] Bodies Not Reportable 01/30/18 Unknown [place] Rings Not Reportable 01/30/18 Unknown [place] Cells Not Reportable 01/30/18 Unknown Bite Cells Not Reportable 01/30/18 Unknown Crenated Cell Not Reportable 01/30/18 Unknown Elliptocytes Not Reportable 01/30/18 Unknown Acanthocytes (Spur) Not Reportable 01/30/18 Unknown Rouleaux Not Reportable 01/30/18 Unknown Hemoglobin C Crystals Not Reportable 01/30/18 Unknown Schistocytes Not Reportable 01/30/18 Unknown Malaria parasites Not Reportable 01/30/18 Unknown Brock Bodies Not Reportable 03/22/18 Unknown Hem Pathologist Commnt No 01/30/18 Unknown PT 17.5 Sec. (12.2-14.9) H 01/20/18 07:00 INR 1.35 (0.87-1.13) H 01/20/18 07:00 Heparin Anti-Xa, Unfract Negative (Negative) 01/20/18 11:03 POC ABG pH 7.441 (7.35-7.45) 02/04/18 15:05 POC ABG pCO2 43.6 (35-45) 02/04/18 15:05 POC ABG pO2 109 (80-105) H 02/04/18 15:05 POC ABG HCO3 29.7 02/04/18 15:05 POC ABG Total CO2 31 02/04/18 15:05 POC ABG O2 Sat 98 02/04/18 15:05 POC ABG Base Excess 6 02/04/18 15:05 VBG pH 7.273 (7.320-7.420) L 01/17/18 16:54 FiO2 35 % 02/04/18 15:05 Sodium 141 mmol/L (137-145) 02/06/18 07:52 Potassium 3.2 mmol/L (3.6-5.0) L 02/06/18 07:52 Chloride 100.2 mmol/L (98-107) 02/06/18 07:52 Carbon Dioxide 29 mmol/L (22-30) 02/06/18 07:52 Anion Gap 15 mmol/L 02/06/18 07:52 BUN 37 mg/dL (7-17) H 02/06/18 07:52 Creatinine 1.6 mg/dL (0.7-1.2) H 02/06/18 07:52 Estimated GFR 33 ml/min 02/06/18 07:52 BUN/Creatinine Ratio 23 % 02/06/18 07:52 Glucose 109 mg/dL (65-100) H 02/06/18 07:52 POC Glucose 119 (70-105) H 02/06/18 05:38 Hemoglobin A1c 9.0 % (4-6) H 01/17/18 22:36 Lactic Acid 1.40 mmol/L (0.7-2.0) 01/24/18 15:08 Calcium 8.1 mg/dL (8.4-10.2) L 02/06/18 07:52 Ionized Calcium 3.9 mg/dL (4.8-5.6) L 01/29/18 06:00 Magnesium 1.80 mg/dL (1.7-2.3) 01/29/18 06:00 Total Bilirubin 0.50 mg/dL (0.1-1.2) 01/29/18 06:00 AST 21 units/L (5-40) 01/29/18 06:00 ALT 53 units/L (7-56) 01/29/18 06:00 Alkaline Phosphatase 88 units/L (35-129) 01/29/18 06:00 C-Reactive Protein 3.30 mg/dL (0.00-1.30) H 01/24/18 15:08 Total Protein 4.5 g/dL (6.3-8.2) L 01/29/18 06:00 Albumin 2.0 g/dL (3.9-5) L 01/29/18 06:00 Albumin/Globulin Ratio 0.8 % 01/29/18 06:00 Serotonin Release Assay See scanned report 01/20/18 11:03 Random Vancomycin 19.8 ug/mL (0-40.0) 01/27/18 05:20 ALISA Screen Negative (Negative) 01/20/18 Unknown Heparin-induced Plt Ab Negative (Negative) 01/20/18 11:03 UF Heparin High Dose 0 % Release 01/20/18 11:03 NEGRITA UFH Low Dose 0.1 0 % Release 01/20/18 11:03 NEGRITA UFH Low Dose 0.5 0 % Release 01/20/18 11:03 Complement C3 47 mg/dL (83-193) L 01/20/18 Unknown Complement C4 9 mg/dL (15-57) L 01/20/18 Unknown Hepatitis A IgM Ab Non-reactive (NonReactive) 01/20/18 07:00 Hep Bs Antigen Non-reactive (Negative) 01/20/18 07:00 Hep B Core IgM Ab Non-reactive (NonReactive) 01/20/18 07:00 Hepatitis C Antibody Non-reactive (NonReactive) 01/20/18 07:00 HIV 1&2 Antibody Rapid Non react (Non React) 01/20/18 Unknown HIV P24 Antigen Non react (Non React) 01/20/18 Unknown
--- NOTE | 2018-02-06 11:43 | Progress Note ---
Assessment and Plan - Patient Problems (1) Acute renal failure Current Visit: Yes Status: Acute Plan to address problem: may be prerenal with ATN. Scr down--may run twice a week and monitor for renal recovery. Adjust meds per renal function. Prognosis- guarded. Bellamy is out, unable to measure urine output. K- slightly low--recheck (2) Sepsis Current Visit: Yes Status: Acute (3) Acute respiratory failure Current Visit: Yes Status: Acute (4) PVD (peripheral vascular disease) Current Visit: Yes Status: Acute (5) Anemia Current Visit: Yes Status: Acute (6) Hypocalcemia Current Visit: Yes Status: Acute (7) Hypoalbuminemia Current Visit: Yes Status: Acute (8) Transaminitis Current Visit: Yes Status: Acute (9) Pleural effusion Current Visit: Yes Status: Acute (10) Encephalopathy Current Visit: Yes Status: Acute Subjective Date of service: 02/06/18 Principal diagnosis: Acute hypoxic respiratory failure, severe sepsis with shock , encephalopathy Interval history: pt is more alert, asking for food to eat Objective - Vital Signs Vital signs: Vital Signs - 12hr 02/06/18 02/06/18 02/06/18 00:00 01:52 02:07 Temperature Pulse Rate Pulse Rate [ 96 H 98 H Bilateral Throughout] Pulse Rate [ 84 From Monitor] Pulse Rate [ 84 Left Radial] Respiratory 20 Rate Respiratory 20 20 Rate [Bilateral Throughout] Blood Pressure [Left] O2 Sat by Pulse 100 Oximetry 02/06/18 02/06/18 05:14 08:46 Temperature 98.9 F 97.9 F Pulse Rate 92 H 92 H Pulse Rate [ Bilateral Throughout] Pulse Rate [ From Monitor] Pulse Rate [ Left Radial] Respiratory 18 20 Rate Respiratory Rate [Bilateral Throughout] Blood Pressure 126/73 127/71 [Left] O2 Sat by Pulse 93 95 Oximetry - General Appearance General appearance: chronically ill EENT: mucous membranes dry Neck: no JVD Respiratory: Present: Decreased Breath Sounds Cardiology: regular Gastrointestinal: normoactive bowel sounds Musculoskeletal: other (ischemic extremities-same) - Lab 02/06/18 07:52 02/06/18 07:52 Most recent lab results Calcium 8.1 mg/dL (8.4-10.2) L 02/06/18 07:52 Magnesium 1.80 mg/dL (1.7-2.3) 01/29/18 06:00
[2018-02-06] MEDS: PEPCID PO SCH (12:39)
--- NOTE | 2018-02-06 13:32 | XRay Report ---
AP CHEST: HISTORY: Chest tube position Compared to 02/03/18. The left Heimlich chest tube appears in the same position terminating in the peripheral left lung base. There is no evidence for pneumothorax. Small left pleural effusion remains. Subtle cavitary lesion in the inferior left lung is also unchanged measuring up to 5 cm. There is segmental atelectasis in the lingula, otherwise, the lungs are clear. Mild cardiomegaly and pacemaker device are unchanged. The left IJ venous catheter remains in the same position. The endotracheal tube, right IJ venous catheter and nasogastric tube have been removed.
[2018-02-06] MEDS ORDERED: POTASSIUM CHLORIDE PO ONE (17:59)
--- NOTE | 2018-02-06 18:19 | Progress Note ---
Assessment and Plan Patient sleeping on 2 litrs O2 at this time.O2 saturation 100%. Patient afebrile. No acute respiratory distress. - Patient Problems (1) Acute respiratory failure Current Visit: Yes Status: Acute Plan to address problem: Patient presently resting on nasal canula 2 litrs, O2 saturation 100%. Brovanna/budesonide aerosol treatments q 12 hours. Albuterol/atrovent aerosol treatments q 6 hours PRN for shortness of breath. Heparin 5000 units S/C q 8 hours Continue Famotadine. (2) Pleural effusion Current Visit: Yes Status: Acute Plan to address problem: Left Heimilick chest tube placement. (3) Acute renal failure Current Visit: Yes Status: Acute Plan to address problem: Management as per nephrology. (4) Encephalopathy Current Visit: Yes Status: Acute Plan to address problem: Management as per primary care and neurology. (5) Gangrene of lower extremity Current Visit: Yes Status: Acute Plan to address problem: Management as per vascular surgery. (6) Gas gangrene of upper extremity Current Visit: Yes Status: Acute Plan to address problem: Management as per vascular surgery. Subjective Date of service: 02/06/18 Principal diagnosis: Acute hypoxic respiratory failure, severe sepsis with shock , encephalopathy Interval history: Patient sleeping on 2 litrs O2 at this time.O2 saturation 100%. Patient afebrile. No acute respiratory distress. Objective Vital Signs - 12hr 02/06/18 02/06/18 02/06/18 08:15 08:25 08:46 Temperature 97.9 F Pulse Rate 92 H Pulse Rate [ 84 92 H Bilateral Throughout] Respiratory 20 Rate Respiratory 16 16 Rate [Bilateral Throughout] Blood Pressure 127/71 [Left] O2 Sat by Pulse 95 Oximetry 02/06/18 02/06/18 02/06/18 10:00 12:59 14:00 Temperature 98.6 F Pulse Rate 94 H Pulse Rate [ 98 H Bilateral Throughout] Respiratory 20 Rate Respiratory 18 Rate [Bilateral Throughout] Blood Pressure 147/85 [Left] O2 Sat by Pulse 99 98 Oximetry 02/06/18 02/06/18 14:10 18:00 Temperature 97.6 F Pulse Rate 97 H Pulse Rate [ 99 H Bilateral Throughout] Respiratory 20 Rate Respiratory 18 Rate [Bilateral Throughout] Blood Pressure 162/87 [Left] O2 Sat by Pulse 100 Oximetry Constitutional: no acute distress, asleep Eyes: non-icteric ENT: oropharynx moist, other (ETT 20 cm MARGOT and advanced to 23cm MARGOT) Neck: supple, no lymphadenopathy, no JVD Effort: mildly labored Ascultation: Bilateral: diminished breath sounds, rales Percussion: Bilateral: not dull Cardiovascular: regular rate and rhythm, other (no rubs or murmurs) Gastrointestinal: normoactive bowel sounds, soft, non-tender, non-distended, other (no [place] HSM) Integumentary: other (Gangrene extremities.) Extremities: other (Gangrene extremities.) Neurologic: non-focal exam (grossly), pupils equal and round, CN II-XII normal Psychiatric: other (calm) CBC and BMP: 02/06/18 07:52 02/06/18 07:52 ABG, PT/INR, D-dimer: ABG POC ABG pH 7.441 (7.35-7.45) 02/04/18 15:05 POC ABG pCO2 43.6 (35-45) 02/04/18 15:05 POC ABG pO2 109 (80-105) H 02/04/18 15:05 POC ABG HCO3 29.7 02/04/18 15:05 POC ABG Total CO2 31 02/04/18 15:05 POC ABG O2 Sat 98 02/04/18 15:05 PT/INR, D-dimer PT 17.5 Sec. (12.2-14.9) H 01/20/18 07:00 INR 1.35 (0.87-1.13) H 01/20/18 07:00 Abnormal lab findings: Abnormal Labs 01/17/18 01/17/18 01/17/18 15:25 16:15 16:48 WBC RBC Hgb Hct MCH RDW Plt Count Lymph % (Auto) [place] % (Auto) Lymph # [place] # Seg Neutrophils % Seg Neuts % (Manual) Lymphocytes % (Manual) Monocytes % (Manual) Nucleated RBC % Seg Neutrophils # Seg Neutrophils # Man Lymphocytes # (Manual) Monocytes # (Manual) PT INR POC ABG pH 7.099 L POC ABG pCO2 58.9 H POC ABG pO2 149 H VBG pH Sodium Potassium Chloride Carbon Dioxide BUN Creatinine Glucose POC Glucose < 40 L 121 H Hemoglobin A1c Lactic Acid Calcium Ionized Calcium Total Bilirubin AST ALT Alkaline Phosphatase C-Reactive Protein Total Protein Albumin Complement C3 Complement C4 01/17/18 01/17/18 01/17/18 16:54 16:54 16:54 WBC RBC Hgb Hct MCH RDW Plt Count Lymph % (Auto) [place] % (Auto) Lymph # [place] # Seg Neutrophils % Seg Neuts % (Manual) 72.0 H Lymphocytes % (Manual) 3.0 L Monocytes % (Manual) Nucleated RBC % Seg Neutrophils # Seg Neutrophils # Man Lymphocytes # (Manual) 0.2 L Monocytes # (Manual) PT 18.5 H INR 1.45 H POC ABG pH POC ABG pCO2 POC ABG pO2 VBG pH Sodium 136 L Potassium Chloride 97.8 L Carbon Dioxide 16 L BUN 43 H Creatinine 3.3 H Glucose 121 H POC Glucose Hemoglobin A1c Lactic Acid Calcium 6.7 L Ionized Calcium Total Bilirubin AST ALT Alkaline Phosphatase C-Reactive Protein Total Protein 4.4 L Albumin 2.3 L Complement C3 Complement C4 01/17/18 01/17/18 01/17/18 16:54 16:54 17:11 WBC RBC Hgb Hct MCH RDW Plt Count Lymph % (Auto) [place] % (Auto) Lymph # [place] # Seg Neutrophils % Seg Neuts % (Manual) Lymphocytes % (Manual) Monocytes % (Manual) Nucleated RBC % Seg Neutrophils # Seg Neutrophils # Man Lymphocytes # (Manual) Monocytes # (Manual) PT INR POC ABG pH POC ABG pCO2 POC ABG pO2 VBG pH 7.273 L Sodium Potassium Chloride Carbon Dioxide BUN Creatinine Glucose POC Glucose Hemoglobin A1c Lactic Acid 4.70 H* 4.30 H* Calcium Ionized Calcium Total Bilirubin AST ALT Alkaline Phosphatase C-Reactive Protein Total Protein Albumin Complement C3 Complement C4 01/17/18 01/17/18 01/17/18 18:02 18:15 19:21 WBC RBC Hgb Hct MCH RDW Plt Count Lymph % (Auto) [place] % (Auto) Lymph # [place] # Seg Neutrophils % Seg Neuts % (Manual) Lymphocytes % (Manual) Monocytes % (Manual) Nucleated RBC % Seg Neutrophils # Seg Neutrophils # Man Lymphocytes # (Manual) Monocytes # (Manual) PT INR POC ABG pH 7.177 L POC ABG pCO2 POC ABG pO2 VBG pH Sodium Potassium Chloride Carbon Dioxide BUN Creatinine Glucose POC Glucose < 40 L Hemoglobin A1c Lactic Acid 3.00 H* Calcium Ionized Calcium Total Bilirubin AST ALT Alkaline Phosphatase C-Reactive Protein Total Protein Albumin Complement C3 Complement C4 01/17/18 01/17/18 01/17/18 22:36 22:36 23:16 WBC RBC Hgb Hct MCH RDW Plt Count Lymph % (Auto) [place] % (Auto) Lymph # [place] # Seg Neutrophils % Seg Neuts % (Manual) Lymphocytes % (Manual) Monocytes % (Manual) Nucleated RBC % Seg Neutrophils # Seg Neutrophils # Man Lymphocytes # (Manual) Monocytes # (Manual) PT INR POC ABG pH 7.112 L POC ABG pCO2 50.1 H POC ABG pO2 50 L VBG pH Sodium Potassium Chloride Carbon Dioxide BUN Creatinine Glucose POC Glucose Hemoglobin A1c 9.0 H Lactic Acid 5.50 H* Calcium Ionized Calcium Total Bilirubin AST ALT Alkaline Phosphatase C-Reactive Protein Total Protein Albumin Complement C3 Complement C4 01/18/18 01/18/18 01/18/18 01:26 03:21 03:21 WBC RBC Hgb Hct MCH RDW Plt Count Lymph % (Auto) [place] % (Auto) Lymph # [place] # Seg Neutrophils % Seg Neuts % (Manual) 27.0 L Lymphocytes % (Manual) 3.0 L Monocytes % (Manual) 14.0 H Nucleated RBC % Seg Neutrophils # Seg Neutrophils # Man Lymphocytes # (Manual) 0.3 L Monocytes # (Manual) 1.4 H PT INR POC ABG pH POC ABG pCO2 POC ABG pO2 VBG pH Sodium Potassium Chloride Carbon Dioxide BUN Creatinine Glucose POC Glucose 107 H Hemoglobin A1c Lactic Acid 8.00 H* Calcium Ionized Calcium Total Bilirubin AST ALT Alkaline Phosphatase C-Reactive Protein Total Protein Albumin Complement C3 Complement C4 01/18/18 01/18/18 01/18/18 03:21 04:40 05:07 WBC RBC Hgb Hct MCH RDW Plt Count Lymph % (Auto) [place] % (Auto) Lymph # [place] # Seg Neutrophils % Seg Neuts % (Manual) Lymphocytes % (Manual) Monocytes % (Manual) Nucleated RBC % Seg Neutrophils # Seg Neutrophils # Man Lymphocytes # (Manual) Monocytes # (Manual) PT INR POC ABG pH 7.093 L POC ABG pCO2 31.5 L POC ABG pO2 77 L VBG pH Sodium Potassium Chloride 96.9 L Carbon Dioxide 14 L BUN 47 H Creatinine 3.4 H Glucose POC Glucose Hemoglobin A1c Lactic Acid 11.10 H* Calcium 6.4 L Ionized Calcium Total Bilirubin AST 47 H ALT Alkaline Phosphatase C-Reactive Protein Total Protein 4.3 L Albumin 2.4 L Complement C3 Complement C4 01/18/18 01/18/18 01/18/18 06:29 07:06 11:44 WBC RBC Hgb Hct MCH RDW Plt Count Lymph % (Auto) [place] % (Auto) Lymph # [place] # Seg Neutrophils % Seg Neuts % (Manual) Lymphocytes % (Manual) Monocytes % (Manual) Nucleated RBC % Seg Neutrophils # Seg Neutrophils # Man Lymphocytes # (Manual) Monocytes # (Manual) PT INR POC ABG pH POC ABG pCO2 POC ABG pO2 VBG pH Sodium Potassium Chloride Carbon Dioxide BUN Creatinine Glucose POC Glucose 47 L 149 H < 40 L Hemoglobin A1c Lactic Acid Calcium Ionized Calcium Total Bilirubin AST ALT Alkaline Phosphatase C-Reactive Protein Total Protein Albumin Complement C3 Complement C4 01/18/18 01/18/18 01/18/18 11:46 14:15 18:01 WBC RBC Hgb Hct MCH RDW Plt Count Lymph % (Auto) [place] % (Auto) Lymph # [place] # Seg Neutrophils % Seg Neuts % (Manual) Lymphocytes % (Manual) Monocytes % (Manual) Nucleated RBC % Seg Neutrophils # Seg Neutrophils # Man Lymphocytes # (Manual) Monocytes # (Manual) PT INR POC ABG pH POC ABG pCO2 POC ABG pO2 VBG pH Sodium Potassium Chloride Carbon Dioxide BUN Creatinine Glucose POC Glucose 116 H < 40 L Hemoglobin A1c Lactic Acid 10.00 H* Calcium Ionized Calcium Total Bilirubin AST ALT Alkaline Phosphatase C-Reactive Protein Total Protein Albumin Complement C3 Complement C4 01/18/18 01/18/18 01/18/18 18:02 23:25 23:27 WBC RBC Hgb Hct MCH RDW Plt Count Lymph % (Auto) [place] % (Auto) Lymph # [place] # Seg Neutrophils % Seg Neuts % (Manual) Lymphocytes % (Manual) Monocytes % (Manual) Nucleated RBC % Seg Neutrophils # Seg Neutrophils # Man Lymphocytes # (Manual) Monocytes # (Manual) PT INR POC ABG pH POC ABG pCO2 POC ABG pO2 VBG pH Sodium Potassium Chloride Carbon Dioxide BUN Creatinine Glucose POC Glucose 136 H < 40 L < 40 L Hemoglobin A1c Lactic Acid Calcium Ionized Calcium Total Bilirubin AST ALT Alkaline Phosphatase C-Reactive Protein Total Protein Albumin Complement C3 Complement C4 01/19/18 01/19/18 01/19/18 04:02 06:50 06:50 WBC 18.5 H RBC Hgb Hct MCH RDW Plt Count 136 L Lymph % (Auto) [place] % (Auto) Lymph # [place] # Seg Neutrophils % Seg Neuts % (Manual) 86.0 H Lymphocytes % (Manual) 4.0 L Monocytes % (Manual) Nucleated RBC % Seg Neutrophils # Seg Neutrophils # Man 15.9 H Lymphocytes # (Manual) 0.7 L Monocytes # (Manual) 1.1 H PT 21.3 H INR 1.73 H POC ABG pH POC ABG pCO2 28.3 L POC ABG pO2 57 L VBG pH Sodium Potassium Chloride Carbon Dioxide BUN Creatinine Glucose POC Glucose Hemoglobin A1c Lactic Acid Calcium Ionized Calcium Total Bilirubin AST ALT Alkaline Phosphatase C-Reactive Protein Total Protein Albumin Complement C3 Complement C4 01/19/18 01/19/18 01/19/18 06:50 08:45 11:17 WBC RBC Hgb Hct MCH RDW Plt Count Lymph % (Auto) [place] % (Auto) Lymph # [place] # Seg Neutrophils % Seg Neuts % (Manual) Lymphocytes % (Manual) Monocytes % (Manual) Nucleated RBC % Seg Neutrophils # Seg Neutrophils # Man Lymphocytes # (Manual) Monocytes # (Manual) PT INR POC ABG pH POC ABG pCO2 POC ABG pO2 VBG pH Sodium 135 L Potassium Chloride 92.8 L Carbon Dioxide 19 L BUN 31 H Creatinine 2.6 H Glucose POC Glucose 110 H Hemoglobin A1c Lactic Acid 7.90 H* Calcium 7.1 L Ionized Calcium Total Bilirubin 1.60 H AST 2526 H ALT 1187 H Alkaline Phosphatase 133 H C-Reactive Protein Total Protein 4.8 L Albumin 2.0 L Complement C3 Complement C4 01/19/18 01/19/18 01/19/18 11:31 22:12 23:34 WBC RBC Hgb Hct MCH RDW Plt Count Lymph % (Auto) [place] % (Auto) Lymph # [place] # Seg Neutrophils % Seg Neuts % (Manual) Lymphocytes % (Manual) Monocytes % (Manual) Nucleated RBC % Seg Neutrophils # Seg Neutrophils # Man Lymphocytes # (Manual) Monocytes # (Manual) PT INR POC ABG pH POC ABG pCO2 31.6 L POC ABG pO2 59 L VBG pH Sodium Potassium Chloride Carbon Dioxide BUN Creatinine Glucose POC Glucose 131 H 53 L Hemoglobin A1c Lactic Acid Calcium Ionized Calcium Total Bilirubin AST ALT Alkaline Phosphatase C-Reactive Protein Total Protein Albumin Complement C3 Complement C4 01/20/18 01/20/18 01/20/18 05:18 05:18 05:19 WBC 19.7 H RBC Hgb Hct MCH 27 L RDW Plt Count 84 L Lymph % (Auto) [place] % (Auto) Lymph # [place] # Seg Neutrophils % Seg Neuts % (Manual) 84.0 H Lymphocytes % (Manual) 2.0 L Monocytes % (Manual) 8.0 H Nucleated RBC % Seg Neutrophils # Seg Neutrophils # Man 16.5 H Lymphocytes # (Manual) 0.4 L Monocytes # (Manual) 1.6 H PT INR POC ABG pH POC ABG pCO2 POC ABG pO2 VBG pH Sodium 136 L Potassium Chloride 96.9 L Carbon Dioxide 17 L BUN 65 H Creatinine 4.1 H D Glucose 104 H POC Glucose 125 H Hemoglobin A1c Lactic Acid Calcium 7.1 L Ionized Calcium Total Bilirubin 1.60 H AST 1702 H ALT 1141 H Alkaline Phosphatase 172 H C-Reactive Protein Total Protein 5.0 L Albumin 1.7 L Complement C3 Complement C4 01/20/18 01/20/18 01/20/18 07:00 11:48 13:54 WBC RBC Hgb Hct MCH RDW Plt Count Lymph % (Auto) [place] % (Auto) Lymph # [place] # Seg Neutrophils % Seg Neuts % (Manual) Lymphocytes % (Manual) Monocytes % (Manual) Nucleated RBC % Seg Neutrophils # Seg Neutrophils # Man Lymphocytes # (Manual) Monocytes # (Manual) PT 17.5 H INR 1.35 H POC ABG pH POC ABG pCO2 POC ABG pO2 VBG pH Sodium Potassium Chloride Carbon Dioxide BUN Creatinine Glucose POC Glucose 109 H Hemoglobin A1c Lactic Acid Calcium Ionized Calcium Total Bilirubin AST ALT Alkaline Phosphatase C-Reactive Protein 37.50 H Total Protein Albumin Complement C3 Complement C4 01/20/18 01/20/18 01/20/18 17:28 17:51 20:50 WBC RBC Hgb Hct MCH RDW Plt Count Lymph % (Auto) [place] % (Auto) Lymph # [place] # Seg Neutrophils % Seg Neuts % (Manual) Lymphocytes % (Manual) Monocytes % (Manual) Nucleated RBC % Seg Neutrophils # Seg Neutrophils # Man Lymphocytes # (Manual) Monocytes # (Manual) PT INR POC ABG pH POC ABG pCO2 POC ABG pO2 VBG pH Sodium Potassium Chloride Carbon Dioxide BUN Creatinine Glucose POC Glucose 140 H Hemoglobin A1c Lactic Acid 2.70 H* 2.30 H* Calcium Ionized Calcium Total Bilirubin AST ALT Alkaline Phosphatase C-Reactive Protein Total Protein Albumin Complement C3 Complement C4 01/20/18 01/20/18 01/20/18 23:55 Unknown Unknown WBC RBC Hgb Hct MCH RDW Plt Count Lymph % (Auto) [place] % (Auto) Lymph # [place] # Seg Neutrophils % Seg Neuts % (Manual) Lymphocytes % (Manual) Monocytes % (Manual) Nucleated RBC % Seg Neutrophils # Seg Neutrophils # Man Lymphocytes # (Manual) Monocytes # (Manual) PT INR POC ABG pH POC ABG pCO2 POC ABG pO2 VBG pH Sodium Potassium Chloride Carbon Dioxide BUN Creatinine Glucose POC Glucose 149 H Hemoglobin A1c Lactic Acid 2.50 H* Calcium Ionized Calcium Total Bilirubin AST ALT Alkaline Phosphatase C-Reactive Protein Total Protein Albumin Complement C3 47 L Complement C4 01/20/18 01/21/18 01/21/18 Unknown 00:12 04:27 WBC RBC Hgb Hct MCH RDW Plt Count Lymph % (Auto) [place] % (Auto) Lymph # [place] # Seg Neutrophils % Seg Neuts % (Manual) Lymphocytes % (Manual) Monocytes % (Manual) Nucleated RBC % Seg Neutrophils # Seg Neutrophils # Man Lymphocytes # (Manual) Monocytes # (Manual) PT INR POC ABG pH POC ABG pCO2 33.8 L POC ABG pO2 72 L VBG pH Sodium Potassium Chloride Carbon Dioxide BUN Creatinine Glucose POC Glucose 134 H Hemoglobin A1c Lactic Acid Calcium Ionized Calcium Total Bilirubin AST ALT Alkaline Phosphatase C-Reactive Protein Total Protein Albumin Complement C3 Complement C4 9 L 01/21/18 01/21/18 01/21/18 05:00 05:00 05:00 WBC 21.7 H RBC Hgb Hct MCH 27 L RDW Plt Count 67 L Lymph % (Auto) [place] % (Auto) Lymph # [place] # Seg Neutrophils % Seg Neuts % (Manual) 71.0 H Lymphocytes % (Manual) 9.0 L Monocytes % (Manual) Nucleated RBC % 4.0 H Seg Neutrophils # Seg Neutrophils # Man 15.4 H Lymphocytes # (Manual) Monocytes # (Manual) PT INR POC ABG pH POC ABG pCO2 POC ABG pO2 VBG pH Sodium Potassium Chloride Carbon Dioxide 21 L BUN 71 H Creatinine 4.1 H Glucose 149 H POC Glucose Hemoglobin A1c Lactic Acid 2.10 H* Calcium 7.5 L Ionized Calcium Total Bilirubin AST 494 H ALT 780 H Alkaline Phosphatase 151 H C-Reactive Protein Total Protein 4.9 L Albumin 1.9 L Complement C3 Complement C4 01/21/18 01/21/18 01/21/18 05:18 12:20 18:07 WBC RBC Hgb Hct MCH RDW Plt Count Lymph % (Auto) [place] % (Auto) Lymph # [place] # Seg Neutrophils % Seg Neuts % (Manual) Lymphocytes % (Manual) Monocytes % (Manual) Nucleated RBC % Seg Neutrophils # Seg Neutrophils # Man Lymphocytes # (Manual) Monocytes # (Manual) PT INR POC ABG pH POC ABG pCO2 POC ABG pO2 VBG pH Sodium Potassium Chloride Carbon Dioxide BUN Creatinine Glucose POC Glucose 132 H 158 H 143 H Hemoglobin A1c Lactic Acid Calcium Ionized Calcium Total Bilirubin AST ALT Alkaline Phosphatase C-Reactive Protein Total Protein Albumin Complement C3 Complement C4 01/21/18 01/22/18 01/22/18 23:40 03:48 04:10 WBC 24.9 H RBC Hgb Hct MCH 27 L RDW Plt Count 80 L Lymph % (Auto) [place] % (Auto) Lymph # [place] # Seg Neutrophils % Seg Neuts % (Manual) Lymphocytes % (Manual) Monocytes % (Manual) Nucleated RBC % Seg Neutrophils # Seg Neutrophils # Man Lymphocytes # (Manual) Monocytes # (Manual) PT INR POC ABG pH POC ABG pCO2 POC ABG pO2 65 L VBG pH Sodium Potassium Chloride Carbon Dioxide BUN Creatinine Glucose POC Glucose 136 H Hemoglobin A1c Lactic Acid Calcium Ionized Calcium Total Bilirubin AST ALT Alkaline Phosphatase C-Reactive Protein Total Protein Albumin Complement C3 Complement C4 01/22/18 01/22/18 01/22/18 04:10 05:56 11:30 WBC RBC Hgb Hct MCH RDW Plt Count Lymph % (Auto) [place] % (Auto) Lymph # [place] # Seg Neutrophils % Seg Neuts % (Manual) Lymphocytes % (Manual) Monocytes % (Manual) Nucleated RBC % Seg Neutrophils # Seg Neutrophils # Man Lymphocytes # (Manual) Monocytes # (Manual) PT INR POC ABG pH POC ABG pCO2 POC ABG pO2 VBG pH Sodium Potassium Chloride 97.7 L Carbon Dioxide BUN 72 H Creatinine 3.6 H Glucose 145 H POC Glucose 139 H 156 H Hemoglobin A1c Lactic Acid Calcium 7.3 L Ionized Calcium Total Bilirubin AST 146 H ALT 547 H Alkaline Phosphatase C-Reactive Protein Total Protein 5.2 L Albumin 2.3 L Complement C3 Complement C4 01/22/18 01/23/18 01/23/18 17:41 00:00 04:39 WBC RBC Hgb Hct MCH RDW Plt Count Lymph % (Auto) [place] % (Auto) Lymph # [place] # Seg Neutrophils % Seg Neuts % (Manual) Lymphocytes % (Manual) Monocytes % (Manual) Nucleated RBC % Seg Neutrophils # Seg Neutrophils # Man Lymphocytes # (Manual) Monocytes # (Manual) PT INR POC ABG pH POC ABG pCO2 31.9 L POC ABG pO2 62 L VBG pH Sodium Potassium Chloride Carbon Dioxide BUN Creatinine Glucose POC Glucose 185 H 150 H Hemoglobin A1c Lactic Acid Calcium Ionized Calcium Total Bilirubin AST ALT Alkaline Phosphatase C-Reactive Protein Total Protein Albumin Complement C3 Complement C4 01/23/18 01/23/18 01/23/18 05:24 11:38 14:20 WBC RBC Hgb Hct MCH RDW Plt Count Lymph % (Auto) [place] % (Auto) Lymph # [place] # Seg Neutrophils % Seg Neuts % (Manual) Lymphocytes % (Manual) Monocytes % (Manual) Nucleated RBC % Seg Neutrophils # Seg Neutrophils # Man Lymphocytes # (Manual) Monocytes # (Manual) PT INR POC ABG pH POC ABG pCO2 31.4 L POC ABG pO2 55 L VBG pH Sodium Potassium Chloride Carbon Dioxide BUN Creatinine Glucose POC Glucose 215 H 182 H Hemoglobin A1c Lactic Acid Calcium Ionized Calcium Total Bilirubin AST ALT Alkaline Phosphatase C-Reactive Protein Total Protein Albumin Complement C3 Complement C4 01/23/18 01/24/18 01/24/18 17:26 00:10 03:40 WBC 34.5 H RBC Hgb Hct MCH 27 L RDW Plt Count 130 L Lymph % (Auto) [place] % (Auto) Lymph # [place] # Seg Neutrophils % Seg Neuts % (Manual) Lymphocytes % (Manual) Monocytes % (Manual) Nucleated RBC % Seg Neutrophils # Seg Neutrophils # Man Lymphocytes # (Manual) Monocytes # (Manual) PT INR POC ABG pH POC ABG pCO2 POC ABG pO2 VBG pH Sodium Potassium Chloride Carbon Dioxide BUN Creatinine Glucose POC Glucose 252 H 225 H Hemoglobin A1c Lactic Acid Calcium Ionized Calcium Total Bilirubin AST ALT Alkaline Phosphatase C-Reactive Protein Total Protein Albumin Complement C3 Complement C4 01/24/18 01/24/18 01/24/18 03:40 06:06 11:36 WBC RBC Hgb Hct MCH RDW Plt Count Lymph % (Auto) [place] % (Auto) Lymph # [place] # Seg Neutrophils % Seg Neuts % (Manual) Lymphocytes % (Manual) Monocytes % (Manual) Nucleated RBC % Seg Neutrophils # Seg Neutrophils # Man Lymphocytes # (Manual) Monocytes # (Manual) PT INR POC ABG pH POC ABG pCO2 POC ABG pO2 VBG pH Sodium Potassium 5.7 H D Chloride 95.6 L Carbon Dioxide 20 L BUN 96 H Creatinine 4.2 H Glucose 166 H POC Glucose 162 H 160 H Hemoglobin A1c Lactic Acid Calcium 7.3 L Ionized Calcium Total Bilirubin AST 52 H ALT 235 H Alkaline Phosphatase C-Reactive Protein Total Protein 5.1 L Albumin 2.5 L Complement C3 Complement C4 01/24/18 01/24/18 01/25/18 15:08 17:32 00:04 WBC RBC Hgb Hct MCH RDW Plt Count Lymph % (Auto) [place] % (Auto) Lymph # [place] # Seg Neutrophils % Seg Neuts % (Manual) Lymphocytes % (Manual) Monocytes % (Manual) Nucleated RBC % Seg Neutrophils # Seg Neutrophils # Man Lymphocytes # (Manual) Monocytes # (Manual) PT INR POC ABG pH POC ABG pCO2 POC ABG pO2 VBG pH Sodium Potassium Chloride Carbon Dioxide BUN Creatinine Glucose POC Glucose 160 H 169 H Hemoglobin A1c Lactic Acid Calcium Ionized Calcium Total Bilirubin AST ALT Alkaline Phosphatase C-Reactive Protein 3.30 H Total Protein Albumin Complement C3 Complement C4 01/25/18 01/25/18 01/25/18 04:34 05:25 11:46 WBC RBC Hgb Hct MCH RDW Plt Count Lymph % (Auto) [place] % (Auto) Lymph # [place] # Seg Neutrophils % Seg Neuts % (Manual) Lymphocytes % (Manual) Monocytes % (Manual) Nucleated RBC % Seg Neutrophils # Seg Neutrophils # Man Lymphocytes # (Manual) Monocytes # (Manual) PT INR POC ABG pH 7.342 L POC ABG pCO2 48.7 H POC ABG pO2 VBG pH Sodium Potassium Chloride Carbon Dioxide BUN Creatinine Glucose POC Glucose 133 H 121 H Hemoglobin A1c Lactic Acid Calcium Ionized Calcium Total Bilirubin AST ALT Alkaline Phosphatase C-Reactive Protein Total Protein Albumin Complement C3 Complement C4 01/25/18 01/25/18 01/26/18 17:42 23:50 04:13 WBC RBC Hgb Hct MCH RDW Plt Count Lymph % (Auto) [place] % (Auto) Lymph # [place] # Seg Neutrophils % Seg Neuts % (Manual) Lymphocytes % (Manual) Monocytes % (Manual) Nucleated RBC % Seg Neutrophils # Seg Neutrophils # Man Lymphocytes # (Manual) Monocytes # (Manual) PT INR POC ABG pH POC ABG pCO2 POC ABG pO2 70 L VBG pH Sodium Potassium Chloride Carbon Dioxide BUN Creatinine Glucose POC Glucose 150 H 149 H Hemoglobin A1c Lactic Acid Calcium Ionized Calcium Total Bilirubin AST ALT Alkaline Phosphatase C-Reactive Protein Total Protein Albumin Complement C3 Complement C4 01/26/18 01/26/18 01/26/18 05:25 06:20 06:20 WBC 21.0 H RBC Hgb Hct MCH RDW Plt Count Lymph % (Auto) [place] % (Auto) Lymph # [place] # Seg Neutrophils % Seg Neuts % (Manual) 95.0 H Lymphocytes % (Manual) 1.0 L Monocytes % (Manual) Nucleated RBC % Seg Neutrophils # Seg Neutrophils # Man 20.0 H Lymphocytes # (Manual) 0.2 L Monocytes # (Manual) PT INR POC ABG pH POC ABG pCO2 POC ABG pO2 VBG pH Sodium Potassium 5.9 H Chloride 95.7 L Carbon Dioxide BUN 102 H Creatinine 4.6 H Glucose POC Glucose 107 H Hemoglobin A1c Lactic Acid Calcium 6.6 L Ionized Calcium Total Bilirubin AST ALT Alkaline Phosphatase C-Reactive Protein Total Protein Albumin Complement C3 Complement C4 01/26/18 01/26/18 01/27/18 12:19 18:09 00:17 WBC RBC Hgb Hct MCH RDW Plt Count Lymph % (Auto) [place] % (Auto) Lymph # [place] # Seg Neutrophils % Seg Neuts % (Manual) Lymphocytes % (Manual) Monocytes % (Manual) Nucleated RBC % Seg Neutrophils # Seg Neutrophils # Man Lymphocytes # (Manual) Monocytes # (Manual) PT INR POC ABG pH POC ABG pCO2 POC ABG pO2 VBG pH Sodium Potassium Chloride Carbon Dioxide BUN Creatinine Glucose POC Glucose 151 H 110 H 159 H Hemoglobin A1c Lactic Acid Calcium Ionized Calcium Total Bilirubin AST ALT Alkaline Phosphatase C-Reactive Protein Total Protein Albumin Complement C3 Complement C4 01/27/18 01/27/18 01/27/18 05:20 05:20 05:43 WBC 23.3 H RBC Hgb Hct MCH 27 L RDW Plt Count Lymph % (Auto) [place] % (Auto) Lymph # [place] # Seg Neutrophils % Seg Neuts % (Manual) 97.0 H Lymphocytes % (Manual) 0 L Monocytes % (Manual) Nucleated RBC % Seg Neutrophils # Seg Neutrophils # Man 22.6 H Lymphocytes # (Manual) 0.0 L Monocytes # (Manual) PT INR POC ABG pH POC ABG pCO2 POC ABG pO2 VBG pH Sodium Potassium 5.7 H Chloride 93.9 L Carbon Dioxide 21 L BUN 121 H Creatinine 5.2 H Glucose 131 H POC Glucose 121 H Hemoglobin A1c Lactic Acid Calcium 6.1 L Ionized Calcium Total Bilirubin AST ALT Alkaline Phosphatase C-Reactive Protein Total Protein Albumin Complement C3 Complement C4 01/27/18 01/27/18 01/28/18 12:16 17:32 00:05 WBC RBC Hgb Hct MCH RDW Plt Count Lymph % (Auto) [place] % (Auto) Lymph # [place] # Seg Neutrophils % Seg Neuts % (Manual) Lymphocytes % (Manual) Monocytes % (Manual) Nucleated RBC % Seg Neutrophils # Seg Neutrophils # Man Lymphocytes # (Manual) Monocytes # (Manual) PT INR POC ABG pH POC ABG pCO2 POC ABG pO2 VBG pH Sodium Potassium Chloride Carbon Dioxide BUN Creatinine Glucose POC Glucose 161 H 146 H 128 H Hemoglobin A1c Lactic Acid Calcium Ionized Calcium Total Bilirubin AST ALT Alkaline Phosphatase C-Reactive Protein Total Protein Albumin Complement C3 Complement C4 01/28/18 01/28/18 01/28/18 04:24 05:43 06:30 WBC 24.8 H RBC Hgb Hct MCH RDW Plt Count Lymph % (Auto) [place] % (Auto) Lymph # [place] # Seg Neutrophils % Seg Neuts % (Manual) 91.0 H Lymphocytes % (Manual) 4.0 L Monocytes % (Manual) Nucleated RBC % Seg Neutrophils # Seg Neutrophils # Man 22.6 H Lymphocytes # (Manual) 1.0 L Monocytes # (Manual) 1.0 H PT INR POC ABG pH POC ABG pCO2 POC ABG pO2 77 L VBG pH Sodium Potassium Chloride Carbon Dioxide BUN Creatinine Glucose POC Glucose 137 H Hemoglobin A1c Lactic Acid Calcium Ionized Calcium Total Bilirubin AST ALT Alkaline Phosphatase C-Reactive Protein Total Protein Albumin Complement C3 Complement C4 01/28/18 01/28/18 01/28/18 06:30 11:30 18:08 WBC RBC Hgb Hct MCH RDW Plt Count Lymph % (Auto) [place] % (Auto) Lymph # [place] # Seg Neutrophils % Seg Neuts % (Manual) Lymphocytes % (Manual) Monocytes % (Manual) Nucleated RBC % Seg Neutrophils # Seg Neutrophils # Man Lymphocytes # (Manual) Monocytes # (Manual) PT INR POC ABG pH POC ABG pCO2 POC ABG pO2 VBG pH Sodium Potassium Chloride 95.2 L Carbon Dioxide BUN 70 H Creatinine 3.7 H Glucose 135 H POC Glucose 183 H 129 H Hemoglobin A1c Lactic Acid Calcium 6.4 L Ionized Calcium Total Bilirubin AST ALT Alkaline Phosphatase C-Reactive Protein Total Protein Albumin Complement C3 Complement C4 03/21/18 03/21/18 03/21/18 00:00 05:50 06:00 WBC 15.8 H RBC 3.37 L Hgb 9.1 L Hct 28.6 L MCH 27 L RDW Plt Count Lymph % (Auto) [place] % (Auto) Lymph # [place] # Seg Neutrophils % Seg Neuts % (Manual) 87.0 H Lymphocytes % (Manual) 7.0 L Monocytes % (Manual) Nucleated RBC % Seg Neutrophils # Seg Neutrophils # Man 13.7 H Lymphocytes # (Manual) 1.1 L Monocytes # (Manual) PT INR POC ABG pH POC ABG pCO2 POC ABG pO2 VBG pH Sodium Potassium Chloride Carbon Dioxide BUN Creatinine Glucose POC Glucose 111 H 120 H Hemoglobin A1c Lactic Acid Calcium Ionized Calcium Total Bilirubin AST ALT Alkaline Phosphatase C-Reactive Protein Total Protein Albumin Complement C3 Complement C4 01/29/18 01/29/18 01/29/18 06:00 06:00 12:29 WBC RBC Hgb Hct MCH RDW Plt Count Lymph % (Auto) [place] % (Auto) Lymph # [place] # Seg Neutrophils % Seg Neuts % (Manual) Lymphocytes % (Manual) Monocytes % (Manual) Nucleated RBC % Seg Neutrophils # Seg Neutrophils # Man Lymphocytes # (Manual) Monocytes # (Manual) PT INR POC ABG pH POC ABG pCO2 POC ABG pO2 VBG pH Sodium 136 L Potassium Chloride 95.4 L Carbon Dioxide BUN 94 H Creatinine 4.2 H Glucose 120 H POC Glucose 134 H Hemoglobin A1c Lactic Acid Calcium 6.5 L Ionized Calcium 3.9 L Total Bilirubin AST ALT Alkaline Phosphatase C-Reactive Protein Total Protein 4.5 L Albumin 2.0 L Complement C3 Complement C4 01/29/18 01/30/18 01/30/18 18:32 00:12 04:47 WBC RBC Hgb Hct MCH RDW Plt Count Lymph % (Auto) [place] % (Auto) Lymph # [place] # Seg Neutrophils % Seg Neuts % (Manual) Lymphocytes % (Manual) Monocytes % (Manual) Nucleated RBC % Seg Neutrophils # Seg Neutrophils # Man Lymphocytes # (Manual) Monocytes # (Manual) PT INR POC ABG pH 7.456 H POC ABG pCO2 POC ABG pO2 VBG pH Sodium Potassium Chloride Carbon Dioxide BUN Creatinine Glucose POC Glucose 158 H 155 H Hemoglobin A1c Lactic Acid Calcium Ionized Calcium Total Bilirubin AST ALT Alkaline Phosphatase C-Reactive Protein Total Protein Albumin Complement C3 Complement C4 01/30/18 01/30/18 01/30/18 12:06 17:46 Unknown WBC 12.8 H RBC 3.09 L Hgb 8.4 L Hct 26.2 L MCH 27 L RDW Plt Count Lymph % (Auto) [place] % (Auto) Lymph # [place] # Seg Neutrophils % Seg Neuts % (Manual) 95.0 H Lymphocytes % (Manual) 1.0 L Monocytes % (Manual) Nucleated RBC % Seg Neutrophils # Seg Neutrophils # Man 12.2 H Lymphocytes # (Manual) 0.1 L Monocytes # (Manual) PT INR POC ABG pH POC ABG pCO2 POC ABG pO2 VBG pH Sodium Potassium Chloride Carbon Dioxide BUN Creatinine Glucose POC Glucose 117 H 166 H Hemoglobin A1c Lactic Acid Calcium Ionized Calcium Total Bilirubin AST ALT Alkaline Phosphatase C-Reactive Protein Total Protein Albumin Complement C3 Complement C4 01/30/18 01/31/18 01/31/18 Unknown 00:04 04:50 WBC 13.6 H RBC 3.53 L Hgb 9.8 L Hct 30.0 L MCH RDW 15.4 H Plt Count Lymph % (Auto) 3.6 L [place] % (Auto) 8.7 H Lymph # 0.5 L [place] # 1.2 H Seg Neutrophils % 87.1 H Seg Neuts % (Manual) Lymphocytes % (Manual) Monocytes % (Manual) Nucleated RBC % Seg Neutrophils # 11.8 H Seg Neutrophils # Man Lymphocytes # (Manual) Monocytes # (Manual) PT INR POC ABG pH POC ABG pCO2 POC ABG pO2 VBG pH Sodium Potassium Chloride Carbon Dioxide BUN 52 H Creatinine 2.9 H Glucose 105 H POC Glucose 155 H Hemoglobin A1c Lactic Acid Calcium 6.7 L Ionized Calcium Total Bilirubin AST ALT Alkaline Phosphatase C-Reactive Protein Total Protein Albumin Complement C3 Complement C4 01/31/18 01/31/18 01/31/18 04:50 17:08 23:38 WBC RBC Hgb Hct MCH RDW Plt Count Lymph % (Auto) [place] % (Auto) Lymph # [place] # Seg Neutrophils % Seg Neuts % (Manual) Lymphocytes % (Manual) Monocytes % (Manual) Nucleated RBC % Seg Neutrophils # Seg Neutrophils # Man Lymphocytes # (Manual) Monocytes # (Manual) PT INR POC ABG pH POC ABG pCO2 POC ABG pO2 VBG pH Sodium Potassium Chloride Carbon Dioxide BUN 70 H Creatinine 3.3 H Glucose 102 H POC Glucose 106 H 136 H Hemoglobin A1c Lactic Acid Calcium 7.1 L Ionized Calcium Total Bilirubin AST ALT Alkaline Phosphatase C-Reactive Protein Total Protein Albumin Complement C3 Complement C4 02/01/18 02/01/18 02/01/18 04:00 04:00 05:25 WBC RBC 3.16 L Hgb 8.7 L Hct 27.5 L MCH RDW Plt Count Lymph % (Auto) 6.4 L [place] % (Auto) 10.2 H Lymph # 0.7 L [place] # 1.1 H Seg Neutrophils % 81.7 H Seg Neuts % (Manual) Lymphocytes % (Manual) Monocytes % (Manual) Nucleated RBC % Seg Neutrophils # 8.6 H Seg Neutrophils # Man Lymphocytes # (Manual) Monocytes # (Manual) PT INR POC ABG pH POC ABG pCO2 POC ABG pO2 VBG pH Sodium Potassium 3.4 L Chloride Carbon Dioxide 31 H BUN 42 H Creatinine 2.2 H Glucose 101 H POC Glucose 163 H Hemoglobin A1c Lactic Acid Calcium 7.1 L Ionized Calcium Total Bilirubin AST ALT Alkaline Phosphatase C-Reactive Protein Total Protein Albumin Complement C3 Complement C4 02/01/18 02/01/18 02/01/18 11:54 18:21 23:34 WBC RBC Hgb Hct MCH RDW Plt Count Lymph % (Auto) [place] % (Auto) Lymph # [place] # Seg Neutrophils % Seg Neuts % (Manual) Lymphocytes % (Manual) Monocytes % (Manual) Nucleated RBC % Seg Neutrophils # Seg Neutrophils # Man Lymphocytes # (Manual) Monocytes # (Manual) PT INR POC ABG pH POC ABG pCO2 POC ABG pO2 VBG pH Sodium Potassium Chloride Carbon Dioxide BUN Creatinine Glucose POC Glucose 123 H 157 H 114 H Hemoglobin A1c Lactic Acid Calcium Ionized Calcium Total Bilirubin AST ALT Alkaline Phosphatase C-Reactive Protein Total Protein Albumin Complement C3 Complement C4 02/02/18 02/02/18 02/02/18 03:30 05:45 17:27 WBC RBC Hgb Hct MCH RDW Plt Count Lymph % (Auto) [place] % (Auto) Lymph # [place] # Seg Neutrophils % Seg Neuts % (Manual) Lymphocytes % (Manual) Monocytes % (Manual) Nucleated RBC % Seg Neutrophils # Seg Neutrophils # Man Lymphocytes # (Manual) Monocytes # (Manual) PT INR POC ABG pH POC ABG pCO2 POC ABG pO2 VBG pH Sodium Potassium 3.3 L Chloride 97.8 L Carbon Dioxide BUN 58 H Creatinine 2.7 H Glucose 111 H POC Glucose 110 H 125 H Hemoglobin A1c Lactic Acid Calcium 7.1 L Ionized Calcium Total Bilirubin AST ALT Alkaline Phosphatase C-Reactive Protein Total Protein Albumin Complement C3 Complement C4 02/02/18 02/03/18 02/03/18 23:34 04:45 05:38 WBC RBC Hgb Hct MCH RDW Plt Count Lymph % (Auto) [place] % (Auto) Lymph # [place] # Seg Neutrophils % Seg Neuts % (Manual) Lymphocytes % (Manual) Monocytes % (Manual) Nucleated RBC % Seg Neutrophils # Seg Neutrophils # Man Lymphocytes # (Manual) Monocytes # (Manual) PT INR POC ABG pH POC ABG pCO2 POC ABG pO2 VBG pH Sodium Potassium Chloride Carbon Dioxide BUN 72 H Creatinine 3.2 H Glucose POC Glucose 153 H 111 H Hemoglobin A1c Lactic Acid Calcium 7.6 L Ionized Calcium Total Bilirubin AST ALT Alkaline Phosphatase C-Reactive Protein Total Protein Albumin Complement C3 Complement C4 02/03/18 02/03/18 02/03/18 11:36 18:26 22:45 WBC RBC Hgb Hct MCH RDW Plt Count Lymph % (Auto) [place] % (Auto) Lymph # [place] # Seg Neutrophils % Seg Neuts % (Manual) Lymphocytes % (Manual) Monocytes % (Manual) Nucleated RBC % Seg Neutrophils # Seg Neutrophils # Man Lymphocytes # (Manual) Monocytes # (Manual) PT INR POC ABG pH POC ABG pCO2 POC ABG pO2 VBG pH Sodium Potassium Chloride Carbon Dioxide BUN Creatinine Glucose POC Glucose 108 H 155 H 141 H Hemoglobin A1c Lactic Acid Calcium Ionized Calcium Total Bilirubin AST ALT Alkaline Phosphatase C-Reactive Protein Total Protein Albumin Complement C3 Complement C4 02/04/18 02/04/18 02/04/18 04:06 11:57 15:05 WBC RBC Hgb Hct MCH RDW Plt Count Lymph % (Auto) [place] % (Auto) Lymph # [place] # Seg Neutrophils % Seg Neuts % (Manual) Lymphocytes % (Manual) Monocytes % (Manual) Nucleated RBC % Seg Neutrophils # Seg Neutrophils # Man Lymphocytes # (Manual) Monocytes # (Manual) PT INR POC ABG pH POC ABG pCO2 POC ABG pO2 109 H VBG pH Sodium 136 L Potassium 3.4 L Chloride 96.7 L Carbon Dioxide BUN 42 H Creatinine 1.9 H Glucose POC Glucose 119 H Hemoglobin A1c Lactic Acid Calcium 7.3 L Ionized Calcium Total Bilirubin AST ALT Alkaline Phosphatase C-Reactive Protein Total Protein Albumin Complement C3 Complement C4 02/05/18 02/05/18 02/05/18 04:10 05:04 18:02 WBC RBC Hgb Hct MCH RDW Plt Count Lymph % (Auto) [place] % (Auto) Lymph # [place] # Seg Neutrophils % Seg Neuts % (Manual) Lymphocytes % (Manual) Monocytes % (Manual) Nucleated RBC % Seg Neutrophils # Seg Neutrophils # Man Lymphocytes # (Manual) Monocytes # (Manual) PT INR POC ABG pH POC ABG pCO2 POC ABG pO2 VBG pH Sodium Potassium 3.5 L Chloride Carbon Dioxide BUN 52 H Creatinine 2.2 H Glucose POC Glucose 108 H 124 H Hemoglobin A1c Lactic Acid Calcium 7.5 L Ionized Calcium Total Bilirubin AST ALT Alkaline Phosphatase C-Reactive Protein Total Protein Albumin Complement C3 Complement C4 02/06/18 02/06/18 02/06/18 05:38 07:52 07:52 WBC RBC 2.91 L Hgb 8.1 L Hct 24.6 L MCH RDW Plt Count Lymph % (Auto) 11.2 L [place] % (Auto) 8.5 H Lymph # 0.6 L [place] # Seg Neutrophils % 76.9 H Seg Neuts % (Manual) Lymphocytes % (Manual) Monocytes % (Manual) Nucleated RBC % Seg Neutrophils # Seg Neutrophils # Man Lymphocytes # (Manual) Monocytes # (Manual) PT INR POC ABG pH POC ABG pCO2 POC ABG pO2 VBG pH Sodium Potassium 3.2 L Chloride Carbon Dioxide BUN 37 H Creatinine 1.6 H Glucose 109 H POC Glucose 119 H Hemoglobin A1c Lactic Acid Calcium 8.1 L Ionized Calcium Total Bilirubin AST ALT Alkaline Phosphatase C-Reactive Protein Total Protein Albumin Complement C3 Complement C4 Chest x-ray: report reviewed (Left Heimilich chest tube, No pneumothorax, Subtle cavitary lesion left lower lobe.), image reviewed Allied health notes reviewed: nursing
[2018-02-07] MEDS: HEPARIN SUB-Q SCH ×3 (06:16→22:25)
[2018-02-07] MEDS: HumaLOG SUB-Q SCH ×3 (06:17→14:25)
[2018-02-07] MEDS: BROVANA NEBU IH SCH ×2 (07:36→20:21)
[2018-02-07] MEDS: PULMICORT IH SCH ×2 (07:36→20:21)
[2018-02-07 08:04] LABS: Hematocrit 22.7 % (30.3-42.9); Hemoglobin 7.4 gm/dl (10.1-14.3); Mean Corpuscular HGB Conc 33 % (30-34); Mean Corpuscular Hemoglobin 28 pg (28-32); Mean Corpuscular Volume 87 fl (79-97); Platelet Count 178 K/mm3 (140-440); Red Blood Count 2.61 M/mm3 (3.65-5.03); Red Cell Distribution Width 14.3 % (13.2-15.2)
[2018-02-07 08:20] LABS: Calcium 8.1 mg/dL (8.4-10.2)
--- NOTE | 2018-02-07 15:29 | Progress Note ---
Assessment and Plan Impression: * Acute kidney injury secondary to ATN - on hemodialysis * Acute respiratory failure - extubated * Spontaneous left pneumothorax s/p chest tube insertion * Sepsis * Pleural effusion * Cardiomyopathy * Anemia * Polysubstance abuse * Type II DM * Ischemic, necrotic digits of hands/feet * Pelvic mass Plan: * Hold HD today * Monitor for recovery * Consultants' recommendations noted * Abx per ID * Strict i/os * Avoid nephrotoxins * Daily lytes Subjective Date of service: 02/07/18 Principal diagnosis: Acute hypoxic respiratory failure, severe sepsis with shock , encephalopathy Interval history: Patient has no complaints Objective - Vital Signs Vital signs: Vital Signs - 12hr 02/07/18 02/07/18 02/07/18 05:47 05:48 07:27 Temperature 99.0 F 97.6 F Pulse Rate 102 H 102 H 101 H Pulse Rate [ Anterior Bilateral Throughout] Respiratory 18 Rate Respiratory Rate [Anterior Bilateral Throughout] Blood Pressure 133/78 133/70 O2 Sat by Pulse 97 98 97 Oximetry 02/07/18 07:36 Temperature Pulse Rate Pulse Rate [ 98 H Anterior Bilateral Throughout] Respiratory Rate Respiratory 18 Rate [Anterior Bilateral Throughout] Blood Pressure O2 Sat by Pulse 97 Oximetry - General Appearance General appearance: well-developed, well-nourished Respiratory: Present: Decreased Breath Sounds Cardiology: regular, S1S2 Gastrointestinal: normal, no tenderness, no distended Integumentary: other (ischemic changes of digits of hands/feet) Musculoskeletal: other (trace edema) Psychiatric: cooperative - Lab 02/07/18 07:45 02/07/18 07:45 Most recent lab results Calcium 8.1 mg/dL (8.4-10.2) L 02/07/18 07:45 Magnesium 1.80 mg/dL (1.7-2.3) 01/29/18 06:00
--- NOTE | 2018-02-07 15:52 | Progress Note ---
Assessment and Plan Assessment and plan: Patient is a 63-year-old woman with a history of coronary artery disease status post coronary artery disease status post stent, permanent pacemaker, hypertension and polysubstance abuse including methamphetamine and cocaine, who presented to the emergency department on 01/17/2018 after being found unresponsive at home. She was intubated and hypotensive requiring vasopressor admission to the ICU. She was extubated 02/05/2018 and transferred out of the icu * 01/20/18 Renal Ultrasound Bilateral IMPRESSION: Unremarkable renal ultrasound. A cystic mass is identified in the superior pelvis just above the uterine fundus , please see above. This cystic mass would likely best be evaluated with CT with IV and oral contrast if needed. I am assuming this patient is postmenopausal, the endometrium measures 13 mm. Consider further evaluation with pelvic ultrasound. * 01/21/18 Pelvic ultrasound IMPRESSION: Very limited evaluation of the uterus. Possible endometrial thickening. There are either large cysts in the right pelvis versus focal fluid collections. Consider further evaluation with CT with IV and oral contrast. * 01/25/18 CT abd/pelvis wo Impression: Faint linear lucencies within the spleen may be artifactual or related to ischemia/trauma. Further evaluation with contrast study advised. Nonobstructing calculi left kidney. Large cyst with thin septa anterosuperior to the uterus. Solid appearing mass left of the uterus in the pelvis. Further correlation with sonography may be recommended. Diverticulosis sigmoid colon without evidence of diverticulitis. * 02/03/18 CT chest w/ contrast IMPRESSION: The left chest tube terminates in the anterior left pleural space adjacent to lingula. There is decreased left lower lobe atelectasis although a cavitating lesion in the left lower lobe is now visualized most consistent with a pneumatocele. Bilateral pleural effusions as described. -Acute combined respiratory failure on ventilator greater than 96 hours status post extubation: still with oxygen via nasal cannula -Septic shock, resolved s/p vasopressors -Acute on chronic combined heart failure improved, Cardiology has signed off -Large left pleural effusion status post left chest tube: Pulmonology is following -Acute renal failure due to ATN present on admission, improved -Acute toxic metabolic encephalopathy, POA -Shock liver/ischemic hepatitis: Monitor closely, repeat levels -Gangrene of the digits due to the above: vascular surgery did evaluate, self auto amputation likely -Pelvic masses, ?incidental findings -DVT prophylaxis: sq heparin 02/06/18 Day 20, my first day caring for patient, moved out of icu overnight. speech eval pending, remove ngt if she passes swallow evaluation 02/07/18: Ordered PT/OT, still with Chest tube, pulmonology is managing. Disposition: Placement/SNF will be difficult because she is unfunded per case management. Possibly home with daughter once chest tube removed. History Interval history: Patient was seen and examined. Follow-up on current diagnosis of shortness of breath which has improved. Overnight uneventful. Patient denies any chest pain , nausea/vomiting or severe headaches. Imaging, nursing note, chart, labs and old chart reviewed. Discussed with patient. Hospitalist Physical - Physical exam Narrative exam: GEN: nad, BMI 35.3 NAD, AWAKE, ALERT, ORIENTATED HEENT: NCAT, EOMI, PERRL, OP Clear, ngt removed NECK: supple, no adenopathy, no thyromegaly, no JVD CVS/HEART: RRR, NORMAL S1S2, pulses present bilaterally CHEST/LUNGS: Diminished breath sounds bilaterally, Symmetrical chest expansion, adequate air entry bilaterally, chest tube in place on left GI/Abdomen: soft, NTND, good bowel sounds, no guarding or rebound /Bladder: no suprapubic tenderness, no CVA or paraspinal tenderness EXT/Skin: no c/c/e, no obvious rash MSK: FROM x 4 Neuro: CN 2-12 grossly intact, no new focal deficits Psych: calm - Constitutional Vitals: Temp Pulse Resp BP Pulse Ox 97.6 F 98 H 18 133/70 97 02/07/18 07:27 02/07/18 07:36 02/07/18 07:36 02/07/18 07:27 02/07/18 07:36 General appearance: Present: no acute distress Results - Labs CBC & Chem 7: 02/07/18 07:45 02/07/18 07:45 Labs: Laboratory Last Values WBC 6.1 K/mm3 (4.5-11.0) 02/07/18 07:45 RBC 2.61 M/mm3 (3.65-5.03) L 02/07/18 07:45 Hgb 7.4 gm/dl (10.1-14.3) L 02/07/18 07:45 Hct 22.7 % (30.3-42.9) L 02/07/18 07:45 MCV 87 fl (79-97) 02/07/18 07:45 MCH 28 pg (28-32) 02/07/18 07:45 MCHC 33 % (30-34) 02/07/18 07:45 RDW 14.3 % (13.2-15.2) 02/07/18 07:45 Plt Count 178 K/mm3 (140-440) 02/07/18 07:45 Lymph % (Auto) 11.2 % (13.4-35.0) L 02/06/18 07:52 [place] % (Auto) 8.5 % (0.0-7.3) H 02/06/18 07:52 Eos % (Auto) 2.7 % (0.0-4.3) 02/06/18 07:52 Baso % (Auto) 0.7 % (0.0-1.8) 02/06/18 07:52 Lymph # 0.6 K/mm3 (1.2-5.4) L 02/06/18 07:52 [place] # 0.5 K/mm3 (0.0-0.8) 02/06/18 07:52 Eos # 0.2 K/mm3 (0.0-0.4) 02/06/18 07:52 Baso # 0.0 K/mm3 (0.0-0.1) 02/06/18 07:52 Add Manual Diff Complete 01/30/18 Unknown Total Counted 100 01/30/18 Unknown Seg Neutrophils % 76.9 % (40.0-70.0) H 02/06/18 07:52 Seg Neuts % (Manual) 95.0 % (40.0-70.0) H 01/30/18 Unknown Band Neutrophils % 2.0 % 01/30/18 Unknown Lymphocytes % (Manual) 1.0 % (13.4-35.0) L 01/30/18 Unknown Reactive Lymphs % (Man) 0 % 01/30/18 Unknown Monocytes % (Manual) 2.0 % (0.0-7.3) 01/30/18 Unknown Eosinophils % (Manual) 0 % (0.0-4.3) 01/30/18 Unknown Basophils % (Manual) 0 % (0.0-1.8) 01/30/18 Unknown Metamyelocytes % 0 % 01/30/18 Unknown Myelocytes % 0 % 01/30/18 Unknown Promyelocytes % 0 % 01/30/18 Unknown Blast Cells % 0 % 01/30/18 Unknown Nucleated RBC % Not Reportable 01/30/18 Unknown Seg Neutrophils # 4.3 K/mm3 (1.8-7.7) 02/06/18 07:52 Seg Neutrophils # Man 12.2 K/mm3 (1.8-7.7) H 01/30/18 Unknown Band Neutrophils # 0.3 K/mm3 01/30/18 Unknown Lymphocytes # (Manual) 0.1 K/mm3 (1.2-5.4) L 01/30/18 Unknown Abs React Lymphs (Man) 0.0 K/mm3 01/30/18 Unknown Monocytes # (Manual) 0.3 K/mm3 (0.0-0.8) 01/30/18 Unknown Eosinophils # (Manual) 0.0 K/mm3 (0.0-0.4) 01/30/18 Unknown Basophils # (Manual) 0.0 K/mm3 (0.0-0.1) 01/30/18 Unknown Metamyelocytes # 0.0 K/mm3 01/30/18 Unknown Myelocytes # 0.0 K/mm3 01/30/18 Unknown Promyelocytes # 0.0 K/mm3 01/30/18 Unknown Blast Cells # 0.0 K/mm3 01/30/18 Unknown WBC Morphology Not Reportable 01/30/18 Unknown Hypersegmented Neuts Not Reportable 01/30/18 Unknown Hyposegmented Neuts Not Reportable 01/30/18 Unknown Hypogranular Neuts Not Reportable 01/30/18 Unknown Smudge Cells Not Reportable 01/30/18 Unknown Toxic Granulation Not Reportable 01/30/18 Unknown Toxic Vacuolation Not Reportable 01/30/18 Unknown Dohle Bodies Not Reportable 01/30/18 Unknown Pelger-Huet Anomaly Not Reportable 01/30/18 Unknown [place]al Rods Not Reportable 01/30/18 Unknown Platelet Estimate Consistent w auto 01/30/18 Unknown Clumped Platelets Not Reportable 01/30/18 Unknown Plt Clumps, EDTA Not Reportable 01/30/18 Unknown Large Platelets Not Reportable 01/30/18 Unknown Giant Platelets Not Reportable 01/30/18 Unknown Platelet Satelliting Not Reportable 01/30/18 Unknown Plt Morphology Comment Not Reportable 01/30/18 Unknown RBC Morphology Not Reportable 01/30/18 Unknown Dimorphic RBCs Not Reportable 01/30/18 Unknown Polychromasia Not Reportable 01/30/18 Unknown Hypochromasia 1+ 01/30/18 Unknown Poikilocytosis Not Reportable 01/30/18 Unknown Anisocytosis Not Reportable 01/30/18 Unknown Microcytosis Few 01/30/18 Unknown Macrocytosis Not Reportable 01/30/18 Unknown Spherocytes Not Reportable 01/30/18 Unknown Pappenheimer Bodies Not Reportable 01/30/18 Unknown Sickle Cells Not Reportable 01/30/18 Unknown Target Cells Not Reportable 01/30/18 Unknown Tear Drop Cells Not Reportable 01/30/18 Unknown Ovalocytes Not Reportable 01/30/18 Unknown Stomatocytes Few 01/30/18 Unknown Helmet Cells Not Reportable 01/30/18 Unknown [place] Bodies Not Reportable 01/30/18 Unknown [place] Rings Not Reportable 01/30/18 Unknown [place] Cells Not Reportable 01/30/18 Unknown Bite Cells Not Reportable 01/30/18 Unknown Crenated Cell Not Reportable 01/30/18 Unknown Elliptocytes Not Reportable 01/30/18 Unknown Acanthocytes (Spur) Not Reportable 01/30/18 Unknown Rouleaux Not Reportable 01/30/18 Unknown Hemoglobin C Crystals Not Reportable 01/30/18 Unknown Schistocytes Not Reportable 01/30/18 Unknown Malaria parasites Not Reportable 01/30/18 Unknown Brock Bodies Not Reportable 01/30/18 Unknown Hem Pathologist Commnt No 01/30/18 Unknown PT 17.5 Sec. (12.2-14.9) H 01/20/18 07:00 INR 1.35 (0.87-1.13) H 01/20/18 07:00 Heparin Anti-Xa, Unfract Negative (Negative) 01/20/18 11:03 POC ABG pH 7.441 (7.35-7.45) 02/04/18 15:05 POC ABG pCO2 43.6 (35-45) 02/04/18 15:05 POC ABG pO2 109 (80-105) H 02/04/18 15:05 POC ABG HCO3 29.7 02/04/18 15:05 POC ABG Total CO2 31 02/04/18 15:05 POC ABG O2 Sat 98 02/04/18 15:05 POC ABG Base Excess 6 02/04/18 15:05 VBG pH 7.273 (7.320-7.420) L 01/17/18 16:54 FiO2 35 % 02/04/18 15:05 Sodium 142 mmol/L (137-145) 02/07/18 07:45 Potassium 3.9 mmol/L (3.6-5.0) D 02/07/18 07:45 Chloride 101.7 mmol/L (98-107) 02/07/18 07:45 Carbon Dioxide 27 mmol/L (22-30) 02/07/18 07:45 Anion Gap 17 mmol/L 02/07/18 07:45 BUN 48 mg/dL (7-17) H 02/07/18 07:45 Creatinine 2.1 mg/dL (0.7-1.2) H 02/07/18 07:45 Estimated GFR 24 ml/min 02/07/18 07:45 BUN/Creatinine Ratio 23 % 02/07/18 07:45 Glucose 96 mg/dL (65-100) 02/07/18 07:45 POC Glucose 78 (70-105) 02/07/18 05:58 Hemoglobin A1c 9.0 % (4-6) H 01/17/18 22:36 Lactic Acid 1.40 mmol/L (0.7-2.0) 01/24/18 15:08 Calcium 8.1 mg/dL (8.4-10.2) L 02/07/18 07:45 Ionized Calcium 3.9 mg/dL (4.8-5.6) L 01/29/18 06:00 Magnesium 1.80 mg/dL (1.7-2.3) 01/29/18 06:00 Total Bilirubin 0.50 mg/dL (0.1-1.2) 01/29/18 06:00 AST 21 units/L (5-40) 01/29/18 06:00 ALT 53 units/L (7-56) 01/29/18 06:00 Alkaline Phosphatase 88 units/L (35-129) 01/29/18 06:00 C-Reactive Protein 3.30 mg/dL (0.00-1.30) H 01/24/18 15:08 Total Protein 4.5 g/dL (6.3-8.2) L 01/29/18 06:00 Albumin 2.0 g/dL (3.9-5) L 01/29/18 06:00 Albumin/Globulin Ratio 0.8 % 01/29/18 06:00 Serotonin Release Assay See scanned report 01/20/18 11:03 Random Vancomycin 19.8 ug/mL (0-40.0) 01/27/18 05:20 ALISA Screen Negative (Negative) 01/20/18 Unknown Heparin-induced Plt Ab Negative (Negative) 01/20/18 11:03 UF Heparin High Dose 0 % Release 01/20/18 11:03 NEGRITA UFH Low Dose 0.1 0 % Release 01/20/18 11:03 NEGRITA UFH Low Dose 0.5 0 % Release 01/20/18 11:03 Complement C3 47 mg/dL (83-193) L 01/20/18 Unknown Complement C4 9 mg/dL (15-57) L 01/20/18 Unknown Hepatitis A IgM Ab Non-reactive (NonReactive) 01/20/18 07:00 Hep Bs Antigen Non-reactive (Negative) 01/20/18 07:00 Hep B Core IgM Ab Non-reactive (NonReactive) 01/20/18 07:00 Hepatitis C Antibody Non-reactive (NonReactive) 01/20/18 07:00 HIV 1&2 Antibody Rapid Non react (Non React) 01/20/18 Unknown HIV P24 Antigen Non react (Non React) 01/20/18 Unknown
[2018-02-07] MEDS: PEPCID PO SCH (17:01)
[2018-02-07] MEDS: SODIUM CHLORIDE FLUSH SYRINGE 10 ML IV SCH ×2 (17:01→22:25)
--- NOTE | 2018-02-07 19:47 | Progress Note ---
Assessment and Plan Patient resting on 2 litrs O2 at this time.O2 saturation 96%. Patient afebrile. No acute respiratory distress. - Patient Problems (1) Acute respiratory failure Current Visit: Yes Status: Acute Plan to address problem: Patient presently resting on nasal canula 2 litrs, O2 saturation 96%. Brovanna/budesonide aerosol treatments q 12 hours. Albuterol/atrovent aerosol treatments q 6 hours PRN for shortness of breath. Heparin 5000 units S/C q 8 hours Continue Famotadine. (2) Pleural effusion Current Visit: Yes Status: Acute Plan to address problem: Left Heim[place]ick chest tube placement. (3) Acute renal failure Current Visit: Yes Status: Acute Plan to address problem: Management as per nephrology. (4) Encephalopathy Current Visit: Yes Status: Acute Plan to address problem: Management as per primary care and neurology. (5) Gangrene of lower extremity Current Visit: Yes Status: Acute Plan to address problem: Management as per vascular surgery. (6) Gas gangrene of upper extremity Current Visit: Yes Status: Acute Plan to address problem: Management as per vascular surgery. Subjective Date of service: 02/07/18 Principal diagnosis: Acute hypoxic respiratory failure, severe sepsis with shock , encephalopathy Interval history: Patient resting on 2 litrs O2 at this time.O2 saturation 96%. Patient afebrile. No acute respiratory distress. Objective Vital Signs - 12hr 02/07/18 10:00 Pulse Rate 96 H Constitutional: no acute distress, lethargic, asleep Eyes: non-icteric ENT: oropharynx moist, other (ETT 20 cm MARGOT and advanced to 23cm MARGOT) Neck: supple, no lymphadenopathy, no JVD Effort: mildly labored Ascultation: Bilateral: diminished breath sounds, rales Percussion: Bilateral: not dull Cardiovascular: regular rate and rhythm, other (no rubs or murmurs) Gastrointestinal: normoactive bowel sounds, soft, non-tender, non-distended, other (no palpb[place] HSM) Integumentary: other (Gangrene extremities.) Extremities: other (Gangrene extremities.) Neurologic: non-focal exam (grossly), pupils equal and round, CN II-XII normal Psychiatric: other (calm) CBC and BMP: 02/07/18 07:45 02/07/18 07:45 ABG, PT/INR, D-dimer: ABG POC ABG pH 7.441 (7.35-7.45) 02/04/18 15:05 POC ABG pCO2 43.6 (35-45) 02/04/18 15:05 POC ABG pO2 109 (80-105) H 02/04/18 15:05 POC ABG HCO3 29.7 02/04/18 15:05 POC ABG Total CO2 31 02/04/18 15:05 POC ABG O2 Sat 98 02/04/18 15:05 PT/INR, D-dimer PT 17.5 Sec. (12.2-14.9) H 01/20/18 07:00 INR 1.35 (0.87-1.13) H 01/20/18 07:00 Abnormal lab findings: Abnormal Labs 01/17/18 01/17/18 01/17/18 15:25 16:15 16:48 WBC RBC Hgb Hct MCH RDW Plt Count Lymph % (Auto) [place] % (Auto) Lymph # [place] # Seg Neutrophils % Seg Neuts % (Manual) Lymphocytes % (Manual) Monocytes % (Manual) Nucleated RBC % Seg Neutrophils # Seg Neutrophils # Man Lymphocytes # (Manual) Monocytes # (Manual) PT INR POC ABG pH 7.099 L POC ABG pCO2 58.9 H POC ABG pO2 149 H VBG pH Sodium Potassium Chloride Carbon Dioxide BUN Creatinine Glucose POC Glucose < 40 L 121 H Hemoglobin A1c Lactic Acid Calcium Ionized Calcium Total Bilirubin AST ALT Alkaline Phosphatase C-Reactive Protein Total Protein Albumin Complement C3 Complement C4 01/17/18 01/17/18 01/17/18 16:54 16:54 16:54 WBC RBC Hgb Hct MCH RDW Plt Count Lymph % (Auto) [place] % (Auto) Lymph # [place] # Seg Neutrophils % Seg Neuts % (Manual) 72.0 H Lymphocytes % (Manual) 3.0 L Monocytes % (Manual) Nucleated RBC % Seg Neutrophils # Seg Neutrophils # Man Lymphocytes # (Manual) 0.2 L Monocytes # (Manual) PT 18.5 H INR 1.45 H POC ABG pH POC ABG pCO2 POC ABG pO2 VBG pH Sodium 136 L Potassium Chloride 97.8 L Carbon Dioxide 16 L BUN 43 H Creatinine 3.3 H Glucose 121 H POC Glucose Hemoglobin A1c Lactic Acid Calcium 6.7 L Ionized Calcium Total Bilirubin AST ALT Alkaline Phosphatase C-Reactive Protein Total Protein 4.4 L Albumin 2.3 L Complement C3 Complement C4 01/17/18 01/17/18 01/17/18 16:54 16:54 17:11 WBC RBC Hgb Hct MCH RDW Plt Count Lymph % (Auto) [place] % (Auto) Lymph # [place] # Seg Neutrophils % Seg Neuts % (Manual) Lymphocytes % (Manual) Monocytes % (Manual) Nucleated RBC % Seg Neutrophils # Seg Neutrophils # Man Lymphocytes # (Manual) Monocytes # (Manual) PT INR POC ABG pH POC ABG pCO2 POC ABG pO2 VBG pH 7.273 L Sodium Potassium Chloride Carbon Dioxide BUN Creatinine Glucose POC Glucose Hemoglobin A1c Lactic Acid 4.70 H* 4.30 H* Calcium Ionized Calcium Total Bilirubin AST ALT Alkaline Phosphatase C-Reactive Protein Total Protein Albumin Complement C3 Complement C4 01/17/18 01/17/18 01/17/18 18:02 18:15 19:21 WBC RBC Hgb Hct MCH RDW Plt Count Lymph % (Auto) [place] % (Auto) Lymph # [place] # Seg Neutrophils % Seg Neuts % (Manual) Lymphocytes % (Manual) Monocytes % (Manual) Nucleated RBC % Seg Neutrophils # Seg Neutrophils # Man Lymphocytes # (Manual) Monocytes # (Manual) PT INR POC ABG pH 7.177 L POC ABG pCO2 POC ABG pO2 VBG pH Sodium Potassium Chloride Carbon Dioxide BUN Creatinine Glucose POC Glucose < 40 L Hemoglobin A1c Lactic Acid 3.00 H* Calcium Ionized Calcium Total Bilirubin AST ALT Alkaline Phosphatase C-Reactive Protein Total Protein Albumin Complement C3 Complement C4 01/17/18 01/17/18 01/17/18 22:36 22:36 23:16 WBC RBC Hgb Hct MCH RDW Plt Count Lymph % (Auto) [place] % (Auto) Lymph # [place] # Seg Neutrophils % Seg Neuts % (Manual) Lymphocytes % (Manual) Monocytes % (Manual) Nucleated RBC % Seg Neutrophils # Seg Neutrophils # Man Lymphocytes # (Manual) Monocytes # (Manual) PT INR POC ABG pH 7.112 L POC ABG pCO2 50.1 H POC ABG pO2 50 L VBG pH Sodium Potassium Chloride Carbon Dioxide BUN Creatinine Glucose POC Glucose Hemoglobin A1c 9.0 H Lactic Acid 5.50 H* Calcium Ionized Calcium Total Bilirubin AST ALT Alkaline Phosphatase C-Reactive Protein Total Protein Albumin Complement C3 Complement C4 01/18/18 01/18/18 01/18/18 01:26 03:21 03:21 WBC RBC Hgb Hct MCH RDW Plt Count Lymph % (Auto) [place] % (Auto) Lymph # [place] # Seg Neutrophils % Seg Neuts % (Manual) 27.0 L Lymphocytes % (Manual) 3.0 L Monocytes % (Manual) 14.0 H Nucleated RBC % Seg Neutrophils # Seg Neutrophils # Man Lymphocytes # (Manual) 0.3 L Monocytes # (Manual) 1.4 H PT INR POC ABG pH POC ABG pCO2 POC ABG pO2 VBG pH Sodium Potassium Chloride Carbon Dioxide BUN Creatinine Glucose POC Glucose 107 H Hemoglobin A1c Lactic Acid 8.00 H* Calcium Ionized Calcium Total Bilirubin AST ALT Alkaline Phosphatase C-Reactive Protein Total Protein Albumin Complement C3 Complement C4 01/18/18 01/18/18 01/18/18 03:21 04:40 05:07 WBC RBC Hgb Hct MCH RDW Plt Count Lymph % (Auto) [place] % (Auto) Lymph # [place] # Seg Neutrophils % Seg Neuts % (Manual) Lymphocytes % (Manual) Monocytes % (Manual) Nucleated RBC % Seg Neutrophils # Seg Neutrophils # Man Lymphocytes # (Manual) Monocytes # (Manual) PT INR POC ABG pH 7.093 L POC ABG pCO2 31.5 L POC ABG pO2 77 L VBG pH Sodium Potassium Chloride 96.9 L Carbon Dioxide 14 L BUN 47 H Creatinine 3.4 H Glucose POC Glucose Hemoglobin A1c Lactic Acid 11.10 H* Calcium 6.4 L Ionized Calcium Total Bilirubin AST 47 H ALT Alkaline Phosphatase C-Reactive Protein Total Protein 4.3 L Albumin 2.4 L Complement C3 Complement C4 01/18/18 01/18/18 01/18/18 06:29 07:06 11:44 WBC RBC Hgb Hct MCH RDW Plt Count Lymph % (Auto) [place] % (Auto) Lymph # [place] # Seg Neutrophils % Seg Neuts % (Manual) Lymphocytes % (Manual) Monocytes % (Manual) Nucleated RBC % Seg Neutrophils # Seg Neutrophils # Man Lymphocytes # (Manual) Monocytes # (Manual) PT INR POC ABG pH POC ABG pCO2 POC ABG pO2 VBG pH Sodium Potassium Chloride Carbon Dioxide BUN Creatinine Glucose POC Glucose 47 L 149 H < 40 L Hemoglobin A1c Lactic Acid Calcium Ionized Calcium Total Bilirubin AST ALT Alkaline Phosphatase C-Reactive Protein Total Protein Albumin Complement C3 Complement C4 01/18/18 01/18/18 01/18/18 11:46 14:15 18:01 WBC RBC Hgb Hct MCH RDW Plt Count Lymph % (Auto) [place] % (Auto) Lymph # [place] # Seg Neutrophils % Seg Neuts % (Manual) Lymphocytes % (Manual) Monocytes % (Manual) Nucleated RBC % Seg Neutrophils # Seg Neutrophils # Man Lymphocytes # (Manual) Monocytes # (Manual) PT INR POC ABG pH POC ABG pCO2 POC ABG pO2 VBG pH Sodium Potassium Chloride Carbon Dioxide BUN Creatinine Glucose POC Glucose 116 H < 40 L Hemoglobin A1c Lactic Acid 10.00 H* Calcium Ionized Calcium Total Bilirubin AST ALT Alkaline Phosphatase C-Reactive Protein Total Protein Albumin Complement C3 Complement C4 01/18/18 01/18/18 01/18/18 18:02 23:25 23:27 WBC RBC Hgb Hct MCH RDW Plt Count Lymph % (Auto) [place] % (Auto) Lymph # [place] # Seg Neutrophils % Seg Neuts % (Manual) Lymphocytes % (Manual) Monocytes % (Manual) Nucleated RBC % Seg Neutrophils # Seg Neutrophils # Man Lymphocytes # (Manual) Monocytes # (Manual) PT INR POC ABG pH POC ABG pCO2 POC ABG pO2 VBG pH Sodium Potassium Chloride Carbon Dioxide BUN Creatinine Glucose POC Glucose 136 H < 40 L < 40 L Hemoglobin A1c Lactic Acid Calcium Ionized Calcium Total Bilirubin AST ALT Alkaline Phosphatase C-Reactive Protein Total Protein Albumin Complement C3 Complement C4 01/19/18 01/19/18 01/19/18 04:02 06:50 06:50 WBC 18.5 H RBC Hgb Hct MCH RDW Plt Count 136 L Lymph % (Auto) [place] % (Auto) Lymph # [place] # Seg Neutrophils % Seg Neuts % (Manual) 86.0 H Lymphocytes % (Manual) 4.0 L Monocytes % (Manual) Nucleated RBC % Seg Neutrophils # Seg Neutrophils # Man 15.9 H Lymphocytes # (Manual) 0.7 L Monocytes # (Manual) 1.1 H PT 21.3 H INR 1.73 H POC ABG pH POC ABG pCO2 28.3 L POC ABG pO2 57 L VBG pH Sodium Potassium Chloride Carbon Dioxide BUN Creatinine Glucose POC Glucose Hemoglobin A1c Lactic Acid Calcium Ionized Calcium Total Bilirubin AST ALT Alkaline Phosphatase C-Reactive Protein Total Protein Albumin Complement C3 Complement C4 01/19/18 01/19/18 01/19/18 06:50 08:45 11:17 WBC RBC Hgb Hct MCH RDW Plt Count Lymph % (Auto) [place] % (Auto) Lymph # [place] # Seg Neutrophils % Seg Neuts % (Manual) Lymphocytes % (Manual) Monocytes % (Manual) Nucleated RBC % Seg Neutrophils # Seg Neutrophils # Man Lymphocytes # (Manual) Monocytes # (Manual) PT INR POC ABG pH POC ABG pCO2 POC ABG pO2 VBG pH Sodium 135 L Potassium Chloride 92.8 L Carbon Dioxide 19 L BUN 31 H Creatinine 2.6 H Glucose POC Glucose 110 H Hemoglobin A1c Lactic Acid 7.90 H* Calcium 7.1 L Ionized Calcium Total Bilirubin 1.60 H AST 2526 H ALT 1187 H Alkaline Phosphatase 133 H C-Reactive Protein Total Protein 4.8 L Albumin 2.0 L Complement C3 Complement C4 01/19/18 01/19/18 01/19/18 11:31 22:12 23:34 WBC RBC Hgb Hct MCH RDW Plt Count Lymph % (Auto) [place] % (Auto) Lymph # [place] # Seg Neutrophils % Seg Neuts % (Manual) Lymphocytes % (Manual) Monocytes % (Manual) Nucleated RBC % Seg Neutrophils # Seg Neutrophils # Man Lymphocytes # (Manual) Monocytes # (Manual) PT INR POC ABG pH POC ABG pCO2 31.6 L POC ABG pO2 59 L VBG pH Sodium Potassium Chloride Carbon Dioxide BUN Creatinine Glucose POC Glucose 131 H 53 L Hemoglobin A1c Lactic Acid Calcium Ionized Calcium Total Bilirubin AST ALT Alkaline Phosphatase C-Reactive Protein Total Protein Albumin Complement C3 Complement C4 01/20/18 01/20/18 01/20/18 05:18 05:18 05:19 WBC 19.7 H RBC Hgb Hct MCH 27 L RDW Plt Count 84 L Lymph % (Auto) [place] % (Auto) Lymph # [place] # Seg Neutrophils % Seg Neuts % (Manual) 84.0 H Lymphocytes % (Manual) 2.0 L Monocytes % (Manual) 8.0 H Nucleated RBC % Seg Neutrophils # Seg Neutrophils # Man 16.5 H Lymphocytes # (Manual) 0.4 L Monocytes # (Manual) 1.6 H PT INR POC ABG pH POC ABG pCO2 POC ABG pO2 VBG pH Sodium 136 L Potassium Chloride 96.9 L Carbon Dioxide 17 L BUN 65 H Creatinine 4.1 H D Glucose 104 H POC Glucose 125 H Hemoglobin A1c Lactic Acid Calcium 7.1 L Ionized Calcium Total Bilirubin 1.60 H AST 1702 H ALT 1141 H Alkaline Phosphatase 172 H C-Reactive Protein Total Protein 5.0 L Albumin 1.7 L Complement C3 Complement C4 01/20/18 01/20/18 01/20/18 07:00 11:48 13:54 WBC RBC Hgb Hct MCH RDW Plt Count Lymph % (Auto) [place] % (Auto) Lymph # [place] # Seg Neutrophils % Seg Neuts % (Manual) Lymphocytes % (Manual) Monocytes % (Manual) Nucleated RBC % Seg Neutrophils # Seg Neutrophils # Man Lymphocytes # (Manual) Monocytes # (Manual) PT 17.5 H INR 1.35 H POC ABG pH POC ABG pCO2 POC ABG pO2 VBG pH Sodium Potassium Chloride Carbon Dioxide BUN Creatinine Glucose POC Glucose 109 H Hemoglobin A1c Lactic Acid Calcium Ionized Calcium Total Bilirubin AST ALT Alkaline Phosphatase C-Reactive Protein 37.50 H Total Protein Albumin Complement C3 Complement C4 01/20/18 01/20/18 01/20/18 17:28 17:51 20:50 WBC RBC Hgb Hct MCH RDW Plt Count Lymph % (Auto) [place] % (Auto) Lymph # [place] # Seg Neutrophils % Seg Neuts % (Manual) Lymphocytes % (Manual) Monocytes % (Manual) Nucleated RBC % Seg Neutrophils # Seg Neutrophils # Man Lymphocytes # (Manual) Monocytes # (Manual) PT INR POC ABG pH POC ABG pCO2 POC ABG pO2 VBG pH Sodium Potassium Chloride Carbon Dioxide BUN Creatinine Glucose POC Glucose 140 H Hemoglobin A1c Lactic Acid 2.70 H* 2.30 H* Calcium Ionized Calcium Total Bilirubin AST ALT Alkaline Phosphatase C-Reactive Protein Total Protein Albumin Complement C3 Complement C4 01/20/18 01/20/18 01/20/18 23:55 Unknown Unknown WBC RBC Hgb Hct MCH RDW Plt Count Lymph % (Auto) [place] % (Auto) Lymph # [place] # Seg Neutrophils % Seg Neuts % (Manual) Lymphocytes % (Manual) Monocytes % (Manual) Nucleated RBC % Seg Neutrophils # Seg Neutrophils # Man Lymphocytes # (Manual) Monocytes # (Manual) PT INR POC ABG pH POC ABG pCO2 POC ABG pO2 VBG pH Sodium Potassium Chloride Carbon Dioxide BUN Creatinine Glucose POC Glucose 149 H Hemoglobin A1c Lactic Acid 2.50 H* Calcium Ionized Calcium Total Bilirubin AST ALT Alkaline Phosphatase C-Reactive Protein Total Protein Albumin Complement C3 47 L Complement C4 01/20/18 01/21/18 01/21/18 Unknown 00:12 04:27 WBC RBC Hgb Hct MCH RDW Plt Count Lymph % (Auto) [place] % (Auto) Lymph # [place] # Seg Neutrophils % Seg Neuts % (Manual) Lymphocytes % (Manual) Monocytes % (Manual) Nucleated RBC % Seg Neutrophils # Seg Neutrophils # Man Lymphocytes # (Manual) Monocytes # (Manual) PT INR POC ABG pH POC ABG pCO2 33.8 L POC ABG pO2 72 L VBG pH Sodium Potassium Chloride Carbon Dioxide BUN Creatinine Glucose POC Glucose 134 H Hemoglobin A1c Lactic Acid Calcium Ionized Calcium Total Bilirubin AST ALT Alkaline Phosphatase C-Reactive Protein Total Protein Albumin Complement C3 Complement C4 9 L 01/21/18 01/21/18 01/21/18 05:00 05:00 05:00 WBC 21.7 H RBC Hgb Hct MCH 27 L RDW Plt Count 67 L Lymph % (Auto) [place] % (Auto) Lymph # [place] # Seg Neutrophils % Seg Neuts % (Manual) 71.0 H Lymphocytes % (Manual) 9.0 L Monocytes % (Manual) Nucleated RBC % 4.0 H Seg Neutrophils # Seg Neutrophils # Man 15.4 H Lymphocytes # (Manual) Monocytes # (Manual) PT INR POC ABG pH POC ABG pCO2 POC ABG pO2 VBG pH Sodium Potassium Chloride Carbon Dioxide 21 L BUN 71 H Creatinine 4.1 H Glucose 149 H POC Glucose Hemoglobin A1c Lactic Acid 2.10 H* Calcium 7.5 L Ionized Calcium Total Bilirubin AST 494 H ALT 780 H Alkaline Phosphatase 151 H C-Reactive Protein Total Protein 4.9 L Albumin 1.9 L Complement C3 Complement C4 01/21/18 01/21/18 01/21/18 05:18 12:20 18:07 WBC RBC Hgb Hct MCH RDW Plt Count Lymph % (Auto) [place] % (Auto) Lymph # [place] # Seg Neutrophils % Seg Neuts % (Manual) Lymphocytes % (Manual) Monocytes % (Manual) Nucleated RBC % Seg Neutrophils # Seg Neutrophils # Man Lymphocytes # (Manual) Monocytes # (Manual) PT INR POC ABG pH POC ABG pCO2 POC ABG pO2 VBG pH Sodium Potassium Chloride Carbon Dioxide BUN Creatinine Glucose POC Glucose 132 H 158 H 143 H Hemoglobin A1c Lactic Acid Calcium Ionized Calcium Total Bilirubin AST ALT Alkaline Phosphatase C-Reactive Protein Total Protein Albumin Complement C3 Complement C4 01/21/18 01/22/18 01/22/18 23:40 03:48 04:10 WBC 24.9 H RBC Hgb Hct MCH 27 L RDW Plt Count 80 L Lymph % (Auto) [place] % (Auto) Lymph # [place] # Seg Neutrophils % Seg Neuts % (Manual) Lymphocytes % (Manual) Monocytes % (Manual) Nucleated RBC % Seg Neutrophils # Seg Neutrophils # Man Lymphocytes # (Manual) Monocytes # (Manual) PT INR POC ABG pH POC ABG pCO2 POC ABG pO2 65 L VBG pH Sodium Potassium Chloride Carbon Dioxide BUN Creatinine Glucose POC Glucose 136 H Hemoglobin A1c Lactic Acid Calcium Ionized Calcium Total Bilirubin AST ALT Alkaline Phosphatase C-Reactive Protein Total Protein Albumin Complement C3 Complement C4 01/22/18 01/22/18 01/22/18 04:10 05:56 11:30 WBC RBC Hgb Hct MCH RDW Plt Count Lymph % (Auto) [place] % (Auto) Lymph # [place] # Seg Neutrophils % Seg Neuts % (Manual) Lymphocytes % (Manual) Monocytes % (Manual) Nucleated RBC % Seg Neutrophils # Seg Neutrophils # Man Lymphocytes # (Manual) Monocytes # (Manual) PT INR POC ABG pH POC ABG pCO2 POC ABG pO2 VBG pH Sodium Potassium Chloride 97.7 L Carbon Dioxide BUN 72 H Creatinine 3.6 H Glucose 145 H POC Glucose 139 H 156 H Hemoglobin A1c Lactic Acid Calcium 7.3 L Ionized Calcium Total Bilirubin AST 146 H ALT 547 H Alkaline Phosphatase C-Reactive Protein Total Protein 5.2 L Albumin 2.3 L Complement C3 Complement C4 01/22/18 01/23/18 01/23/18 17:41 00:00 04:39 WBC RBC Hgb Hct MCH RDW Plt Count Lymph % (Auto) [place] % (Auto) Lymph # [place] # Seg Neutrophils % Seg Neuts % (Manual) Lymphocytes % (Manual) Monocytes % (Manual) Nucleated RBC % Seg Neutrophils # Seg Neutrophils # Man Lymphocytes # (Manual) Monocytes # (Manual) PT INR POC ABG pH POC ABG pCO2 31.9 L POC ABG pO2 62 L VBG pH Sodium Potassium Chloride Carbon Dioxide BUN Creatinine Glucose POC Glucose 185 H 150 H Hemoglobin A1c Lactic Acid Calcium Ionized Calcium Total Bilirubin AST ALT Alkaline Phosphatase C-Reactive Protein Total Protein Albumin Complement C3 Complement C4 01/23/18 01/23/18 01/23/18 05:24 11:38 14:20 WBC RBC Hgb Hct MCH RDW Plt Count Lymph % (Auto) [place] % (Auto) Lymph # [place] # Seg Neutrophils % Seg Neuts % (Manual) Lymphocytes % (Manual) Monocytes % (Manual) Nucleated RBC % Seg Neutrophils # Seg Neutrophils # Man Lymphocytes # (Manual) Monocytes # (Manual) PT INR POC ABG pH POC ABG pCO2 31.4 L POC ABG pO2 55 L VBG pH Sodium Potassium Chloride Carbon Dioxide BUN Creatinine Glucose POC Glucose 215 H 182 H Hemoglobin A1c Lactic Acid Calcium Ionized Calcium Total Bilirubin AST ALT Alkaline Phosphatase C-Reactive Protein Total Protein Albumin Complement C3 Complement C4 01/23/18 01/24/18 01/24/18 17:26 00:10 03:40 WBC 34.5 H RBC Hgb Hct MCH 27 L RDW Plt Count 130 L Lymph % (Auto) [place] % (Auto) Lymph # [place] # Seg Neutrophils % Seg Neuts % (Manual) Lymphocytes % (Manual) Monocytes % (Manual) Nucleated RBC % Seg Neutrophils # Seg Neutrophils # Man Lymphocytes # (Manual) Monocytes # (Manual) PT INR POC ABG pH POC ABG pCO2 POC ABG pO2 VBG pH Sodium Potassium Chloride Carbon Dioxide BUN Creatinine Glucose POC Glucose 252 H 225 H Hemoglobin A1c Lactic Acid Calcium Ionized Calcium Total Bilirubin AST ALT Alkaline Phosphatase C-Reactive Protein Total Protein Albumin Complement C3 Complement C4 01/24/18 01/24/18 01/24/18 03:40 06:06 11:36 WBC RBC Hgb Hct MCH RDW Plt Count Lymph % (Auto) [place] % (Auto) Lymph # [place] # Seg Neutrophils % Seg Neuts % (Manual) Lymphocytes % (Manual) Monocytes % (Manual) Nucleated RBC % Seg Neutrophils # Seg Neutrophils # Man Lymphocytes # (Manual) Monocytes # (Manual) PT INR POC ABG pH POC ABG pCO2 POC ABG pO2 VBG pH Sodium Potassium 5.7 H D Chloride 95.6 L Carbon Dioxide 20 L BUN 96 H Creatinine 4.2 H Glucose 166 H POC Glucose 162 H 160 H Hemoglobin A1c Lactic Acid Calcium 7.3 L Ionized Calcium Total Bilirubin AST 52 H ALT 235 H Alkaline Phosphatase C-Reactive Protein Total Protein 5.1 L Albumin 2.5 L Complement C3 Complement C4 01/24/18 01/24/18 01/25/18 15:08 17:32 00:04 WBC RBC Hgb Hct MCH RDW Plt Count Lymph % (Auto) [place] % (Auto) Lymph # [place] # Seg Neutrophils % Seg Neuts % (Manual) Lymphocytes % (Manual) Monocytes % (Manual) Nucleated RBC % Seg Neutrophils # Seg Neutrophils # Man Lymphocytes # (Manual) Monocytes # (Manual) PT INR POC ABG pH POC ABG pCO2 POC ABG pO2 VBG pH Sodium Potassium Chloride Carbon Dioxide BUN Creatinine Glucose POC Glucose 160 H 169 H Hemoglobin A1c Lactic Acid Calcium Ionized Calcium Total Bilirubin AST ALT Alkaline Phosphatase C-Reactive Protein 3.30 H Total Protein Albumin Complement C3 Complement C4 01/25/18 01/25/18 01/25/18 04:34 05:25 11:46 WBC RBC Hgb Hct MCH RDW Plt Count Lymph % (Auto) [place] % (Auto) Lymph # [place] # Seg Neutrophils % Seg Neuts % (Manual) Lymphocytes % (Manual) Monocytes % (Manual) Nucleated RBC % Seg Neutrophils # Seg Neutrophils # Man Lymphocytes # (Manual) Monocytes # (Manual) PT INR POC ABG pH 7.342 L POC ABG pCO2 48.7 H POC ABG pO2 VBG pH Sodium Potassium Chloride Carbon Dioxide BUN Creatinine Glucose POC Glucose 133 H 121 H Hemoglobin A1c Lactic Acid Calcium Ionized Calcium Total Bilirubin AST ALT Alkaline Phosphatase C-Reactive Protein Total Protein Albumin Complement C3 Complement C4 01/25/18 01/25/18 01/26/18 17:42 23:50 04:13 WBC RBC Hgb Hct MCH RDW Plt Count Lymph % (Auto) [place] % (Auto) Lymph # [place] # Seg Neutrophils % Seg Neuts % (Manual) Lymphocytes % (Manual) Monocytes % (Manual) Nucleated RBC % Seg Neutrophils # Seg Neutrophils # Man Lymphocytes # (Manual) Monocytes # (Manual) PT INR POC ABG pH POC ABG pCO2 POC ABG pO2 70 L VBG pH Sodium Potassium Chloride Carbon Dioxide BUN Creatinine Glucose POC Glucose 150 H 149 H Hemoglobin A1c Lactic Acid Calcium Ionized Calcium Total Bilirubin AST ALT Alkaline Phosphatase C-Reactive Protein Total Protein Albumin Complement C3 Complement C4 01/26/18 01/26/18 01/26/18 05:25 06:20 06:20 WBC 21.0 H RBC Hgb Hct MCH RDW Plt Count Lymph % (Auto) [place] % (Auto) Lymph # [place] # Seg Neutrophils % Seg Neuts % (Manual) 95.0 H Lymphocytes % (Manual) 1.0 L Monocytes % (Manual) Nucleated RBC % Seg Neutrophils # Seg Neutrophils # Man 20.0 H Lymphocytes # (Manual) 0.2 L Monocytes # (Manual) PT INR POC ABG pH POC ABG pCO2 POC ABG pO2 VBG pH Sodium Potassium 5.9 H Chloride 95.7 L Carbon Dioxide BUN 102 H Creatinine 4.6 H Glucose POC Glucose 107 H Hemoglobin A1c Lactic Acid Calcium 6.6 L Ionized Calcium Total Bilirubin AST ALT Alkaline Phosphatase C-Reactive Protein Total Protein Albumin Complement C3 Complement C4 01/26/18 01/26/18 01/27/18 12:19 18:09 00:17 WBC RBC Hgb Hct MCH RDW Plt Count Lymph % (Auto) [place] % (Auto) Lymph # [place] # Seg Neutrophils % Seg Neuts % (Manual) Lymphocytes % (Manual) Monocytes % (Manual) Nucleated RBC % Seg Neutrophils # Seg Neutrophils # Man Lymphocytes # (Manual) Monocytes # (Manual) PT INR POC ABG pH POC ABG pCO2 POC ABG pO2 VBG pH Sodium Potassium Chloride Carbon Dioxide BUN Creatinine Glucose POC Glucose 151 H 110 H 159 H Hemoglobin A1c Lactic Acid Calcium Ionized Calcium Total Bilirubin AST ALT Alkaline Phosphatase C-Reactive Protein Total Protein Albumin Complement C3 Complement C4 01/27/18 01/27/18 01/27/18 05:20 05:20 05:43 WBC 23.3 H RBC Hgb Hct MCH 27 L RDW Plt Count Lymph % (Auto) [place] % (Auto) Lymph # [place] # Seg Neutrophils % Seg Neuts % (Manual) 97.0 H Lymphocytes % (Manual) 0 L Monocytes % (Manual) Nucleated RBC % Seg Neutrophils # Seg Neutrophils # Man 22.6 H Lymphocytes # (Manual) 0.0 L Monocytes # (Manual) PT INR POC ABG pH POC ABG pCO2 POC ABG pO2 VBG pH Sodium Potassium 5.7 H Chloride 93.9 L Carbon Dioxide 21 L BUN 121 H Creatinine 5.2 H Glucose 131 H POC Glucose 121 H Hemoglobin A1c Lactic Acid Calcium 6.1 L Ionized Calcium Total Bilirubin AST ALT Alkaline Phosphatase C-Reactive Protein Total Protein Albumin Complement C3 Complement C4 01/27/18 01/27/18 01/28/18 12:16 17:32 00:05 WBC RBC Hgb Hct MCH RDW Plt Count Lymph % (Auto) [place] % (Auto) Lymph # [place] # Seg Neutrophils % Seg Neuts % (Manual) Lymphocytes % (Manual) Monocytes % (Manual) Nucleated RBC % Seg Neutrophils # Seg Neutrophils # Man Lymphocytes # (Manual) Monocytes # (Manual) PT INR POC ABG pH POC ABG pCO2 POC ABG pO2 VBG pH Sodium Potassium Chloride Carbon Dioxide BUN Creatinine Glucose POC Glucose 161 H 146 H 128 H Hemoglobin A1c Lactic Acid Calcium Ionized Calcium Total Bilirubin AST ALT Alkaline Phosphatase C-Reactive Protein Total Protein Albumin Complement C3 Complement C4 01/28/18 01/28/18 01/28/18 04:24 05:43 06:30 WBC 24.8 H RBC Hgb Hct MCH RDW Plt Count Lymph % (Auto) [place] % (Auto) Lymph # [place] # Seg Neutrophils % Seg Neuts % (Manual) 91.0 H Lymphocytes % (Manual) 4.0 L Monocytes % (Manual) Nucleated RBC % Seg Neutrophils # Seg Neutrophils # Man 22.6 H Lymphocytes # (Manual) 1.0 L Monocytes # (Manual) 1.0 H PT INR POC ABG pH POC ABG pCO2 POC ABG pO2 77 L VBG pH Sodium Potassium Chloride Carbon Dioxide BUN Creatinine Glucose POC Glucose 137 H Hemoglobin A1c Lactic Acid Calcium Ionized Calcium Total Bilirubin AST ALT Alkaline Phosphatase C-Reactive Protein Total Protein Albumin Complement C3 Complement C4 01/28/18 01/28/18 01/28/18 06:30 11:30 18:08 WBC RBC Hgb Hct MCH RDW Plt Count Lymph % (Auto) [place] % (Auto) Lymph # [place] # Seg Neutrophils % Seg Neuts % (Manual) Lymphocytes % (Manual) Monocytes % (Manual) Nucleated RBC % Seg Neutrophils # Seg Neutrophils # Man Lymphocytes # (Manual) Monocytes # (Manual) PT INR POC ABG pH POC ABG pCO2 POC ABG pO2 VBG pH Sodium Potassium Chloride 95.2 L Carbon Dioxide BUN 70 H Creatinine 3.7 H Glucose 135 H POC Glucose 183 H 129 H Hemoglobin A1c Lactic Acid Calcium 6.4 L Ionized Calcium Total Bilirubin AST ALT Alkaline Phosphatase C-Reactive Protein Total Protein Albumin Complement C3 Complement C4 01/29/18 01/29/18 01/29/18 00:00 05:50 06:00 WBC 15.8 H RBC 3.37 L Hgb 9.1 L Hct 28.6 L MCH 27 L RDW Plt Count Lymph % (Auto) [place] % (Auto) Lymph # [place] # Seg Neutrophils % Seg Neuts % (Manual) 87.0 H Lymphocytes % (Manual) 7.0 L Monocytes % (Manual) Nucleated RBC % Seg Neutrophils # Seg Neutrophils # Man 13.7 H Lymphocytes # (Manual) 1.1 L Monocytes # (Manual) PT INR POC ABG pH POC ABG pCO2 POC ABG pO2 VBG pH Sodium Potassium Chloride Carbon Dioxide BUN Creatinine Glucose POC Glucose 111 H 120 H Hemoglobin A1c Lactic Acid Calcium Ionized Calcium Total Bilirubin AST ALT Alkaline Phosphatase C-Reactive Protein Total Protein Albumin Complement C3 Complement C4 03/21/18 03/21/18 03/21/18 06:00 06:00 12:29 WBC RBC Hgb Hct MCH RDW Plt Count Lymph % (Auto) [place] % (Auto) Lymph # [place] # Seg Neutrophils % Seg Neuts % (Manual) Lymphocytes % (Manual) Monocytes % (Manual) Nucleated RBC % Seg Neutrophils # Seg Neutrophils # Man Lymphocytes # (Manual) Monocytes # (Manual) PT INR POC ABG pH POC ABG pCO2 POC ABG pO2 VBG pH Sodium 136 L Potassium Chloride 95.4 L Carbon Dioxide BUN 94 H Creatinine 4.2 H Glucose 120 H POC Glucose 134 H Hemoglobin A1c Lactic Acid Calcium 6.5 L Ionized Calcium 3.9 L Total Bilirubin AST ALT Alkaline Phosphatase C-Reactive Protein Total Protein 4.5 L Albumin 2.0 L Complement C3 Complement C4 01/29/18 01/30/18 01/30/18 18:32 00:12 04:47 WBC RBC Hgb Hct MCH RDW Plt Count Lymph % (Auto) [place] % (Auto) Lymph # [place] # Seg Neutrophils % Seg Neuts % (Manual) Lymphocytes % (Manual) Monocytes % (Manual) Nucleated RBC % Seg Neutrophils # Seg Neutrophils # Man Lymphocytes # (Manual) Monocytes # (Manual) PT INR POC ABG pH 7.456 H POC ABG pCO2 POC ABG pO2 VBG pH Sodium Potassium Chloride Carbon Dioxide BUN Creatinine Glucose POC Glucose 158 H 155 H Hemoglobin A1c Lactic Acid Calcium Ionized Calcium Total Bilirubin AST ALT Alkaline Phosphatase C-Reactive Protein Total Protein Albumin Complement C3 Complement C4 01/30/18 01/30/18 01/30/18 12:06 17:46 Unknown WBC 12.8 H RBC 3.09 L Hgb 8.4 L Hct 26.2 L MCH 27 L RDW Plt Count Lymph % (Auto) [place] % (Auto) Lymph # [place] # Seg Neutrophils % Seg Neuts % (Manual) 95.0 H Lymphocytes % (Manual) 1.0 L Monocytes % (Manual) Nucleated RBC % Seg Neutrophils # Seg Neutrophils # Man 12.2 H Lymphocytes # (Manual) 0.1 L Monocytes # (Manual) PT INR POC ABG pH POC ABG pCO2 POC ABG pO2 VBG pH Sodium Potassium Chloride Carbon Dioxide BUN Creatinine Glucose POC Glucose 117 H 166 H Hemoglobin A1c Lactic Acid Calcium Ionized Calcium Total Bilirubin AST ALT Alkaline Phosphatase C-Reactive Protein Total Protein Albumin Complement C3 Complement C4 01/30/18 01/31/18 01/31/18 Unknown 00:04 04:50 WBC 13.6 H RBC 3.53 L Hgb 9.8 L Hct 30.0 L MCH RDW 15.4 H Plt Count Lymph % (Auto) 3.6 L [place] % (Auto) 8.7 H Lymph # 0.5 L [place] # 1.2 H Seg Neutrophils % 87.1 H Seg Neuts % (Manual) Lymphocytes % (Manual) Monocytes % (Manual) Nucleated RBC % Seg Neutrophils # 11.8 H Seg Neutrophils # Man Lymphocytes # (Manual) Monocytes # (Manual) PT INR POC ABG pH POC ABG pCO2 POC ABG pO2 VBG pH Sodium Potassium Chloride Carbon Dioxide BUN 52 H Creatinine 2.9 H Glucose 105 H POC Glucose 155 H Hemoglobin A1c Lactic Acid Calcium 6.7 L Ionized Calcium Total Bilirubin AST ALT Alkaline Phosphatase C-Reactive Protein Total Protein Albumin Complement C3 Complement C4 01/31/18 01/31/18 01/31/18 04:50 17:08 23:38 WBC RBC Hgb Hct MCH RDW Plt Count Lymph % (Auto) [place] % (Auto) Lymph # [place] # Seg Neutrophils % Seg Neuts % (Manual) Lymphocytes % (Manual) Monocytes % (Manual) Nucleated RBC % Seg Neutrophils # Seg Neutrophils # Man Lymphocytes # (Manual) Monocytes # (Manual) PT INR POC ABG pH POC ABG pCO2 POC ABG pO2 VBG pH Sodium Potassium Chloride Carbon Dioxide BUN 70 H Creatinine 3.3 H Glucose 102 H POC Glucose 106 H 136 H Hemoglobin A1c Lactic Acid Calcium 7.1 L Ionized Calcium Total Bilirubin AST ALT Alkaline Phosphatase C-Reactive Protein Total Protein Albumin Complement C3 Complement C4 02/01/18 02/01/18 02/01/18 04:00 04:00 05:25 WBC RBC 3.16 L Hgb 8.7 L Hct 27.5 L MCH RDW Plt Count Lymph % (Auto) 6.4 L [place] % (Auto) 10.2 H Lymph # 0.7 L [place] # 1.1 H Seg Neutrophils % 81.7 H Seg Neuts % (Manual) Lymphocytes % (Manual) Monocytes % (Manual) Nucleated RBC % Seg Neutrophils # 8.6 H Seg Neutrophils # Man Lymphocytes # (Manual) Monocytes # (Manual) PT INR POC ABG pH POC ABG pCO2 POC ABG pO2 VBG pH Sodium Potassium 3.4 L Chloride Carbon Dioxide 31 H BUN 42 H Creatinine 2.2 H Glucose 101 H POC Glucose 163 H Hemoglobin A1c Lactic Acid Calcium 7.1 L Ionized Calcium Total Bilirubin AST ALT Alkaline Phosphatase C-Reactive Protein Total Protein Albumin Complement C3 Complement C4 02/01/18 02/01/18 02/01/18 11:54 18:21 23:34 WBC RBC Hgb Hct MCH RDW Plt Count Lymph % (Auto) [place] % (Auto) Lymph # [place] # Seg Neutrophils % Seg Neuts % (Manual) Lymphocytes % (Manual) Monocytes % (Manual) Nucleated RBC % Seg Neutrophils # Seg Neutrophils # Man Lymphocytes # (Manual) Monocytes # (Manual) PT INR POC ABG pH POC ABG pCO2 POC ABG pO2 VBG pH Sodium Potassium Chloride Carbon Dioxide BUN Creatinine Glucose POC Glucose 123 H 157 H 114 H Hemoglobin A1c Lactic Acid Calcium Ionized Calcium Total Bilirubin AST ALT Alkaline Phosphatase C-Reactive Protein Total Protein Albumin Complement C3 Complement C4 02/02/18 02/02/18 02/02/18 03:30 05:45 17:27 WBC RBC Hgb Hct MCH RDW Plt Count Lymph % (Auto) [place] % (Auto) Lymph # [place] # Seg Neutrophils % Seg Neuts % (Manual) Lymphocytes % (Manual) Monocytes % (Manual) Nucleated RBC % Seg Neutrophils # Seg Neutrophils # Man Lymphocytes # (Manual) Monocytes # (Manual) PT INR POC ABG pH POC ABG pCO2 POC ABG pO2 VBG pH Sodium Potassium 3.3 L Chloride 97.8 L Carbon Dioxide BUN 58 H Creatinine 2.7 H Glucose 111 H POC Glucose 110 H 125 H Hemoglobin A1c Lactic Acid Calcium 7.1 L Ionized Calcium Total Bilirubin AST ALT Alkaline Phosphatase C-Reactive Protein Total Protein Albumin Complement C3 Complement C4 02/02/18 02/03/18 02/03/18 23:34 04:45 05:38 WBC RBC Hgb Hct MCH RDW Plt Count Lymph % (Auto) [place] % (Auto) Lymph # [place] # Seg Neutrophils % Seg Neuts % (Manual) Lymphocytes % (Manual) Monocytes % (Manual) Nucleated RBC % Seg Neutrophils # Seg Neutrophils # Man Lymphocytes # (Manual) Monocytes # (Manual) PT INR POC ABG pH POC ABG pCO2 POC ABG pO2 VBG pH Sodium Potassium Chloride Carbon Dioxide BUN 72 H Creatinine 3.2 H Glucose POC Glucose 153 H 111 H Hemoglobin A1c Lactic Acid Calcium 7.6 L Ionized Calcium Total Bilirubin AST ALT Alkaline Phosphatase C-Reactive Protein Total Protein Albumin Complement C3 Complement C4 02/03/18 02/03/18 02/03/18 11:36 18:26 22:45 WBC RBC Hgb Hct MCH RDW Plt Count Lymph % (Auto) [place] % (Auto) Lymph # [place] # Seg Neutrophils % Seg Neuts % (Manual) Lymphocytes % (Manual) Monocytes % (Manual) Nucleated RBC % Seg Neutrophils # Seg Neutrophils # Man Lymphocytes # (Manual) Monocytes # (Manual) PT INR POC ABG pH POC ABG pCO2 POC ABG pO2 VBG pH Sodium Potassium Chloride Carbon Dioxide BUN Creatinine Glucose POC Glucose 108 H 155 H 141 H Hemoglobin A1c Lactic Acid Calcium Ionized Calcium Total Bilirubin AST ALT Alkaline Phosphatase C-Reactive Protein Total Protein Albumin Complement C3 Complement C4 02/04/18 02/04/18 02/04/18 04:06 11:57 15:05 WBC RBC Hgb Hct MCH RDW Plt Count Lymph % (Auto) [place] % (Auto) Lymph # [place] # Seg Neutrophils % Seg Neuts % (Manual) Lymphocytes % (Manual) Monocytes % (Manual) Nucleated RBC % Seg Neutrophils # Seg Neutrophils # Man Lymphocytes # (Manual) Monocytes # (Manual) PT INR POC ABG pH POC ABG pCO2 POC ABG pO2 109 H VBG pH Sodium 136 L Potassium 3.4 L Chloride 96.7 L Carbon Dioxide BUN 42 H Creatinine 1.9 H Glucose POC Glucose 119 H Hemoglobin A1c Lactic Acid Calcium 7.3 L Ionized Calcium Total Bilirubin AST ALT Alkaline Phosphatase C-Reactive Protein Total Protein Albumin Complement C3 Complement C4 02/05/18 02/05/18 02/05/18 04:10 05:04 18:02 WBC RBC Hgb Hct MCH RDW Plt Count Lymph % (Auto) [place] % (Auto) Lymph # [place] # Seg Neutrophils % Seg Neuts % (Manual) Lymphocytes % (Manual) Monocytes % (Manual) Nucleated RBC % Seg Neutrophils # Seg Neutrophils # Man Lymphocytes # (Manual) Monocytes # (Manual) PT INR POC ABG pH POC ABG pCO2 POC ABG pO2 VBG pH Sodium Potassium 3.5 L Chloride Carbon Dioxide BUN 52 H Creatinine 2.2 H Glucose POC Glucose 108 H 124 H Hemoglobin A1c Lactic Acid Calcium 7.5 L Ionized Calcium Total Bilirubin AST ALT Alkaline Phosphatase C-Reactive Protein Total Protein Albumin Complement C3 Complement C4 02/06/18 02/06/18 02/06/18 05:38 07:52 07:52 WBC RBC 2.91 L Hgb 8.1 L Hct 24.6 L MCH RDW Plt Count Lymph % (Auto) 11.2 L [place] % (Auto) 8.5 H Lymph # 0.6 L [place] # Seg Neutrophils % 76.9 H Seg Neuts % (Manual) Lymphocytes % (Manual) Monocytes % (Manual) Nucleated RBC % Seg Neutrophils # Seg Neutrophils # Man Lymphocytes # (Manual) Monocytes # (Manual) PT INR POC ABG pH POC ABG pCO2 POC ABG pO2 VBG pH Sodium Potassium 3.2 L Chloride Carbon Dioxide BUN 37 H Creatinine 1.6 H Glucose 109 H POC Glucose 119 H Hemoglobin A1c Lactic Acid Calcium 8.1 L Ionized Calcium Total Bilirubin AST ALT Alkaline Phosphatase C-Reactive Protein Total Protein Albumin Complement C3 Complement C4 02/07/18 02/07/18 07:45 07:45 WBC RBC 2.61 L Hgb 7.4 L Hct 22.7 L MCH RDW Plt Count Lymph % (Auto) [place] % (Auto) Lymph # [place] # Seg Neutrophils % Seg Neuts % (Manual) Lymphocytes % (Manual) Monocytes % (Manual) Nucleated RBC % Seg Neutrophils # Seg Neutrophils # Man Lymphocytes # (Manual) Monocytes # (Manual) PT INR POC ABG pH POC ABG pCO2 POC ABG pO2 VBG pH Sodium Potassium Chloride Carbon Dioxide BUN 48 H Creatinine 2.1 H Glucose POC Glucose Hemoglobin A1c Lactic Acid Calcium 8.1 L Ionized Calcium Total Bilirubin AST ALT Alkaline Phosphatase C-Reactive Protein Total Protein Albumin Complement C3 Complement C4 Allied health notes reviewed: nursing
[2018-02-07] MEDS: DILAUDID IV PRN (23:29)
[2018-02-08] MEDS: HumaLOG SUB-Q SCH ×4 (06:09→13:10)
[2018-02-08] MEDS: HEPARIN SUB-Q SCH ×2 (06:09→15:43)
[2018-02-08] MEDS: PULMICORT IH SCH ×2 (08:19→20:25)
[2018-02-08] MEDS: BROVANA NEBU IH SCH ×2 (08:19→20:25)
[2018-02-08 08:50] LABS: Hematocrit 21.5 % (30.3-42.9); Mean Corpuscular HGB Conc 32 % (30-34); Mean Corpuscular Hemoglobin 28 pg (28-32); Mean Corpuscular Volume 86 fl (79-97); Platelet Count 195 K/mm3 (140-440); Red Blood Count 2.49 M/mm3 (3.65-5.03); Red Cell Distribution Width 14.5 % (13.2-15.2)
[2018-02-08 09:19] LABS: Calcium 8.3 mg/dL (8.4-10.2)
[2018-02-08] MEDS: PEPCID PO SCH (10:43)
--- NOTE | 2018-02-08 10:43 | Progress Note ---
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 History of cocaine abuse, Acute encephalopathy-improving Left PTX, left pleural drain in place Thrombocytopenia-improving Pleural efffusion-improving Cardiomyopathy - HD/UF per nephrology for toxin and volume clearance - continue steroid taper - continue stress ulcer prophylaxis - continue supplemental oxygen to wean for oxygen saturations >90% - continue other care per attending/other consultants -get CXR if left lung remains fully expanded plan to discontinue pleural drain Subjective Date of service: 02/08/18 Principal diagnosis: Acute hypoxic respiratory failure, severe sepsis with shock , encephalopathy Interval history: Patient seen today for: Acute hypoxic respiratory failure, Left PTX, sepsis, aspiration pneumonia Seen and examined at bedside; 24-hour events reviewed; nursing and respiratory care staff consulted; no adverse overnight events reported to me; Vitals, labs, medications, chart reviewed. Objective Vital Signs - 12hr 02/08/18 02/08/18 02/08/18 01:23 05:20 05:56 Temperature 97.7 F 99.1 F Pulse Rate 99 H 92 H 94 H Pulse Rate [ Bilateral Throughout] Respiratory 20 20 Rate Respiratory Rate [Bilateral Throughout] Blood Pressure 169/86 141/85 O2 Sat by Pulse 100 97 Oximetry 02/08/18 02/08/18 02/08/18 08:19 08:22 08:52 Temperature Pulse Rate Pulse Rate [ 94 H 87 Bilateral Throughout] Respiratory Rate Respiratory 18 20 Rate [Bilateral Throughout] Blood Pressure O2 Sat by Pulse 96 Oximetry Constitutional: no acute distress Eyes: non-icteric ENT: oropharynx moist Neck: supple, no lymphadenopathy, no JVD Effort: mildly labored Ascultation: Bilateral: diminished breath sounds, rales Percussion: Bilateral: not dull Cardiovascular: regular rate and rhythm, other (no rubs or murmurs) Gastrointestinal: normoactive bowel sounds, soft, non-tender, non-distended, other (no [place] HSM) Integumentary: normal Extremities: no cyanosis, no edema, pink and warm, pulses normal Neurologic: non-focal exam (grossly), pupils equal and round, CN II-XII normal, motor strength normal and Psychiatric: other (calm) CBC and BMP: 02/12/18 06:09 02/14/18 06:04 ABG, PT/INR, D-dimer: ABG POC ABG pH 7.441 (7.35-7.45) 02/04/18 15:05 POC ABG pCO2 43.6 (35-45) 02/04/18 15:05 POC ABG pO2 109 (80-105) H 02/04/18 15:05 POC ABG HCO3 29.7 02/04/18 15:05 POC ABG Total CO2 31 02/04/18 15:05 POC ABG O2 Sat 98 02/04/18 15:05 PT/INR, D-dimer PT 17.5 Sec. (12.2-14.9) H 01/20/18 07:00 INR 1.35 (0.87-1.13) H 01/20/18 07:00 Abnormal lab findings: Abnormal Labs 01/17/18 01/17/18 01/17/18 15:25 16:15 16:48 WBC RBC Hgb Hct MCH RDW Plt Count Lymph % (Auto) [place] % (Auto) Lymph # [place] # Seg Neutrophils % Seg Neuts % (Manual) Lymphocytes % (Manual) Monocytes % (Manual) Nucleated RBC % Seg Neutrophils # Seg Neutrophils # Man Lymphocytes # (Manual) Monocytes # (Manual) PT INR POC ABG pH 7.099 L POC ABG pCO2 58.9 H POC ABG pO2 149 H VBG pH Sodium Potassium Chloride Carbon Dioxide BUN Creatinine Glucose POC Glucose < 40 L 121 H Hemoglobin A1c Lactic Acid Calcium Ionized Calcium Total Bilirubin AST ALT Alkaline Phosphatase C-Reactive Protein Total Protein Albumin Complement C3 Complement C4 01/17/18 01/17/18 01/17/18 16:54 16:54 16:54 WBC RBC Hgb Hct MCH RDW Plt Count Lymph % (Auto) [place] % (Auto) Lymph # [place] # Seg Neutrophils % Seg Neuts % (Manual) 72.0 H Lymphocytes % (Manual) 3.0 L Monocytes % (Manual) Nucleated RBC % Seg Neutrophils # Seg Neutrophils # Man Lymphocytes # (Manual) 0.2 L Monocytes # (Manual) PT 18.5 H INR 1.45 H POC ABG pH POC ABG pCO2 POC ABG pO2 VBG pH Sodium 136 L Potassium Chloride 97.8 L Carbon Dioxide 16 L BUN 43 H Creatinine 3.3 H Glucose 121 H POC Glucose Hemoglobin A1c Lactic Acid Calcium 6.7 L Ionized Calcium Total Bilirubin AST ALT Alkaline Phosphatase C-Reactive Protein Total Protein 4.4 L Albumin 2.3 L Complement C3 Complement C4 01/17/18 01/17/18 01/17/18 16:54 16:54 17:11 WBC RBC Hgb Hct MCH RDW Plt Count Lymph % (Auto) [place] % (Auto) Lymph # [place] # Seg Neutrophils % Seg Neuts % (Manual) Lymphocytes % (Manual) Monocytes % (Manual) Nucleated RBC % Seg Neutrophils # Seg Neutrophils # Man Lymphocytes # (Manual) Monocytes # (Manual) PT INR POC ABG pH POC ABG pCO2 POC ABG pO2 VBG pH 7.273 L Sodium Potassium Chloride Carbon Dioxide BUN Creatinine Glucose POC Glucose Hemoglobin A1c Lactic Acid 4.70 H* 4.30 H* Calcium Ionized Calcium Total Bilirubin AST ALT Alkaline Phosphatase C-Reactive Protein Total Protein Albumin Complement C3 Complement C4 01/17/18 01/17/18 01/17/18 18:02 18:15 19:21 WBC RBC Hgb Hct MCH RDW Plt Count Lymph % (Auto) [place] % (Auto) Lymph # [place] # Seg Neutrophils % Seg Neuts % (Manual) Lymphocytes % (Manual) Monocytes % (Manual) Nucleated RBC % Seg Neutrophils # Seg Neutrophils # Man Lymphocytes # (Manual) Monocytes # (Manual) PT INR POC ABG pH 7.177 L POC ABG pCO2 POC ABG pO2 VBG pH Sodium Potassium Chloride Carbon Dioxide BUN Creatinine Glucose POC Glucose < 40 L Hemoglobin A1c Lactic Acid 3.00 H* Calcium Ionized Calcium Total Bilirubin AST ALT Alkaline Phosphatase C-Reactive Protein Total Protein Albumin Complement C3 Complement C4 01/17/18 01/17/18 01/17/18 22:36 22:36 23:16 WBC RBC Hgb Hct MCH RDW Plt Count Lymph % (Auto) [place] % (Auto) Lymph # [place] # Seg Neutrophils % Seg Neuts % (Manual) Lymphocytes % (Manual) Monocytes % (Manual) Nucleated RBC % Seg Neutrophils # Seg Neutrophils # Man Lymphocytes # (Manual) Monocytes # (Manual) PT INR POC ABG pH 7.112 L POC ABG pCO2 50.1 H POC ABG pO2 50 L VBG pH Sodium Potassium Chloride Carbon Dioxide BUN Creatinine Glucose POC Glucose Hemoglobin A1c 9.0 H Lactic Acid 5.50 H* Calcium Ionized Calcium Total Bilirubin AST ALT Alkaline Phosphatase C-Reactive Protein Total Protein Albumin Complement C3 Complement C4 01/18/18 01/18/18 01/18/18 01:26 03:21 03:21 WBC RBC Hgb Hct MCH RDW Plt Count Lymph % (Auto) [place] % (Auto) Lymph # [place] # Seg Neutrophils % Seg Neuts % (Manual) 27.0 L Lymphocytes % (Manual) 3.0 L Monocytes % (Manual) 14.0 H Nucleated RBC % Seg Neutrophils # Seg Neutrophils # Man Lymphocytes # (Manual) 0.3 L Monocytes # (Manual) 1.4 H PT INR POC ABG pH POC ABG pCO2 POC ABG pO2 VBG pH Sodium Potassium Chloride Carbon Dioxide BUN Creatinine Glucose POC Glucose 107 H Hemoglobin A1c Lactic Acid 8.00 H* Calcium Ionized Calcium Total Bilirubin AST ALT Alkaline Phosphatase C-Reactive Protein Total Protein Albumin Complement C3 Complement C4 01/18/18 01/18/18 01/18/18 03:21 04:40 05:07 WBC RBC Hgb Hct MCH RDW Plt Count Lymph % (Auto) [place] % (Auto) Lymph # [place] # Seg Neutrophils % Seg Neuts % (Manual) Lymphocytes % (Manual) Monocytes % (Manual) Nucleated RBC % Seg Neutrophils # Seg Neutrophils # Man Lymphocytes # (Manual) Monocytes # (Manual) PT INR POC ABG pH 7.093 L POC ABG pCO2 31.5 L POC ABG pO2 77 L VBG pH Sodium Potassium Chloride 96.9 L Carbon Dioxide 14 L BUN 47 H Creatinine 3.4 H Glucose POC Glucose Hemoglobin A1c Lactic Acid 11.10 H* Calcium 6.4 L Ionized Calcium Total Bilirubin AST 47 H ALT Alkaline Phosphatase C-Reactive Protein Total Protein 4.3 L Albumin 2.4 L Complement C3 Complement C4 01/18/18 01/18/18 01/18/18 06:29 07:06 11:44 WBC RBC Hgb Hct MCH RDW Plt Count Lymph % (Auto) [place] % (Auto) Lymph # [place] # Seg Neutrophils % Seg Neuts % (Manual) Lymphocytes % (Manual) Monocytes % (Manual) Nucleated RBC % Seg Neutrophils # Seg Neutrophils # Man Lymphocytes # (Manual) Monocytes # (Manual) PT INR POC ABG pH POC ABG pCO2 POC ABG pO2 VBG pH Sodium Potassium Chloride Carbon Dioxide BUN Creatinine Glucose POC Glucose 47 L 149 H < 40 L Hemoglobin A1c Lactic Acid Calcium Ionized Calcium Total Bilirubin AST ALT Alkaline Phosphatase C-Reactive Protein Total Protein Albumin Complement C3 Complement C4 01/18/18 01/18/18 01/18/18 11:46 14:15 18:01 WBC RBC Hgb Hct MCH RDW Plt Count Lymph % (Auto) [place] % (Auto) Lymph # [place] # Seg Neutrophils % Seg Neuts % (Manual) Lymphocytes % (Manual) Monocytes % (Manual) Nucleated RBC % Seg Neutrophils # Seg Neutrophils # Man Lymphocytes # (Manual) Monocytes # (Manual) PT INR POC ABG pH POC ABG pCO2 POC ABG pO2 VBG pH Sodium Potassium Chloride Carbon Dioxide BUN Creatinine Glucose POC Glucose 116 H < 40 L Hemoglobin A1c Lactic Acid 10.00 H* Calcium Ionized Calcium Total Bilirubin AST ALT Alkaline Phosphatase C-Reactive Protein Total Protein Albumin Complement C3 Complement C4 01/18/18 01/18/18 01/18/18 18:02 23:25 23:27 WBC RBC Hgb Hct MCH RDW Plt Count Lymph % (Auto) [place] % (Auto) Lymph # [place] # Seg Neutrophils % Seg Neuts % (Manual) Lymphocytes % (Manual) Monocytes % (Manual) Nucleated RBC % Seg Neutrophils # Seg Neutrophils # Man Lymphocytes # (Manual) Monocytes # (Manual) PT INR POC ABG pH POC ABG pCO2 POC ABG pO2 VBG pH Sodium Potassium Chloride Carbon Dioxide BUN Creatinine Glucose POC Glucose 136 H < 40 L < 40 L Hemoglobin A1c Lactic Acid Calcium Ionized Calcium Total Bilirubin AST ALT Alkaline Phosphatase C-Reactive Protein Total Protein Albumin Complement C3 Complement C4 01/19/18 01/19/18 01/19/18 04:02 06:50 06:50 WBC 18.5 H RBC Hgb Hct MCH RDW Plt Count 136 L Lymph % (Auto) [place] % (Auto) Lymph # [place] # Seg Neutrophils % Seg Neuts % (Manual) 86.0 H Lymphocytes % (Manual) 4.0 L Monocytes % (Manual) Nucleated RBC % Seg Neutrophils # Seg Neutrophils # Man 15.9 H Lymphocytes # (Manual) 0.7 L Monocytes # (Manual) 1.1 H PT 21.3 H INR 1.73 H POC ABG pH POC ABG pCO2 28.3 L POC ABG pO2 57 L VBG pH Sodium Potassium Chloride Carbon Dioxide BUN Creatinine Glucose POC Glucose Hemoglobin A1c Lactic Acid Calcium Ionized Calcium Total Bilirubin AST ALT Alkaline Phosphatase C-Reactive Protein Total Protein Albumin Complement C3 Complement C4 01/19/18 01/19/18 01/19/18 06:50 08:45 11:17 WBC RBC Hgb Hct MCH RDW Plt Count Lymph % (Auto) [place] % (Auto) Lymph # [place] # Seg Neutrophils % Seg Neuts % (Manual) Lymphocytes % (Manual) Monocytes % (Manual) Nucleated RBC % Seg Neutrophils # Seg Neutrophils # Man Lymphocytes # (Manual) Monocytes # (Manual) PT INR POC ABG pH POC ABG pCO2 POC ABG pO2 VBG pH Sodium 135 L Potassium Chloride 92.8 L Carbon Dioxide 19 L BUN 31 H Creatinine 2.6 H Glucose POC Glucose 110 H Hemoglobin A1c Lactic Acid 7.90 H* Calcium 7.1 L Ionized Calcium Total Bilirubin 1.60 H AST 2526 H ALT 1187 H Alkaline Phosphatase 133 H C-Reactive Protein Total Protein 4.8 L Albumin 2.0 L Complement C3 Complement C4 01/19/18 01/19/18 01/19/18 11:31 22:12 23:34 WBC RBC Hgb Hct MCH RDW Plt Count Lymph % (Auto) [place] % (Auto) Lymph # [place] # Seg Neutrophils % Seg Neuts % (Manual) Lymphocytes % (Manual) Monocytes % (Manual) Nucleated RBC % Seg Neutrophils # Seg Neutrophils # Man Lymphocytes # (Manual) Monocytes # (Manual) PT INR POC ABG pH POC ABG pCO2 31.6 L POC ABG pO2 59 L VBG pH Sodium Potassium Chloride Carbon Dioxide BUN Creatinine Glucose POC Glucose 131 H 53 L Hemoglobin A1c Lactic Acid Calcium Ionized Calcium Total Bilirubin AST ALT Alkaline Phosphatase C-Reactive Protein Total Protein Albumin Complement C3 Complement C4 01/20/18 01/20/18 01/20/18 05:18 05:18 05:19 WBC 19.7 H RBC Hgb Hct MCH 27 L RDW Plt Count 84 L Lymph % (Auto) [place] % (Auto) Lymph # [place] # Seg Neutrophils % Seg Neuts % (Manual) 84.0 H Lymphocytes % (Manual) 2.0 L Monocytes % (Manual) 8.0 H Nucleated RBC % Seg Neutrophils # Seg Neutrophils # Man 16.5 H Lymphocytes # (Manual) 0.4 L Monocytes # (Manual) 1.6 H PT INR POC ABG pH POC ABG pCO2 POC ABG pO2 VBG pH Sodium 136 L Potassium Chloride 96.9 L Carbon Dioxide 17 L BUN 65 H Creatinine 4.1 H D Glucose 104 H POC Glucose 125 H Hemoglobin A1c Lactic Acid Calcium 7.1 L Ionized Calcium Total Bilirubin 1.60 H AST 1702 H ALT 1141 H Alkaline Phosphatase 172 H C-Reactive Protein Total Protein 5.0 L Albumin 1.7 L Complement C3 Complement C4 01/20/18 01/20/18 01/20/18 07:00 11:48 13:54 WBC RBC Hgb Hct MCH RDW Plt Count Lymph % (Auto) [place] % (Auto) Lymph # [place] # Seg Neutrophils % Seg Neuts % (Manual) Lymphocytes % (Manual) Monocytes % (Manual) Nucleated RBC % Seg Neutrophils # Seg Neutrophils # Man Lymphocytes # (Manual) Monocytes # (Manual) PT 17.5 H INR 1.35 H POC ABG pH POC ABG pCO2 POC ABG pO2 VBG pH Sodium Potassium Chloride Carbon Dioxide BUN Creatinine Glucose POC Glucose 109 H Hemoglobin A1c Lactic Acid Calcium Ionized Calcium Total Bilirubin AST ALT Alkaline Phosphatase C-Reactive Protein 37.50 H Total Protein Albumin Complement C3 Complement C4 01/20/18 01/20/18 01/20/18 17:28 17:51 20:50 WBC RBC Hgb Hct MCH RDW Plt Count Lymph % (Auto) [place] % (Auto) Lymph # [place] # Seg Neutrophils % Seg Neuts % (Manual) Lymphocytes % (Manual) Monocytes % (Manual) Nucleated RBC % Seg Neutrophils # Seg Neutrophils # Man Lymphocytes # (Manual) Monocytes # (Manual) PT INR POC ABG pH POC ABG pCO2 POC ABG pO2 VBG pH Sodium Potassium Chloride Carbon Dioxide BUN Creatinine Glucose POC Glucose 140 H Hemoglobin A1c Lactic Acid 2.70 H* 2.30 H* Calcium Ionized Calcium Total Bilirubin AST ALT Alkaline Phosphatase C-Reactive Protein Total Protein Albumin Complement C3 Complement C4 01/20/18 01/20/18 01/20/18 23:55 Unknown Unknown WBC RBC Hgb Hct MCH RDW Plt Count Lymph % (Auto) [place] % (Auto) Lymph # [place] # Seg Neutrophils % Seg Neuts % (Manual) Lymphocytes % (Manual) Monocytes % (Manual) Nucleated RBC % Seg Neutrophils # Seg Neutrophils # Man Lymphocytes # (Manual) Monocytes # (Manual) PT INR POC ABG pH POC ABG pCO2 POC ABG pO2 VBG pH Sodium Potassium Chloride Carbon Dioxide BUN Creatinine Glucose POC Glucose 149 H Hemoglobin A1c Lactic Acid 2.50 H* Calcium Ionized Calcium Total Bilirubin AST ALT Alkaline Phosphatase C-Reactive Protein Total Protein Albumin Complement C3 47 L Complement C4 01/20/18 01/21/18 01/21/18 Unknown 00:12 04:27 WBC RBC Hgb Hct MCH RDW Plt Count Lymph % (Auto) [place] % (Auto) Lymph # [place] # Seg Neutrophils % Seg Neuts % (Manual) Lymphocytes % (Manual) Monocytes % (Manual) Nucleated RBC % Seg Neutrophils # Seg Neutrophils # Man Lymphocytes # (Manual) Monocytes # (Manual) PT INR POC ABG pH POC ABG pCO2 33.8 L POC ABG pO2 72 L VBG pH Sodium Potassium Chloride Carbon Dioxide BUN Creatinine Glucose POC Glucose 134 H Hemoglobin A1c Lactic Acid Calcium Ionized Calcium Total Bilirubin AST ALT Alkaline Phosphatase C-Reactive Protein Total Protein Albumin Complement C3 Complement C4 9 L 01/21/18 01/21/18 01/21/18 05:00 05:00 05:00 WBC 21.7 H RBC Hgb Hct MCH 27 L RDW Plt Count 67 L Lymph % (Auto) [place] % (Auto) Lymph # [place] # Seg Neutrophils % Seg Neuts % (Manual) 71.0 H Lymphocytes % (Manual) 9.0 L Monocytes % (Manual) Nucleated RBC % 4.0 H Seg Neutrophils # Seg Neutrophils # Man 15.4 H Lymphocytes # (Manual) Monocytes # (Manual) PT INR POC ABG pH POC ABG pCO2 POC ABG pO2 VBG pH Sodium Potassium Chloride Carbon Dioxide 21 L BUN 71 H Creatinine 4.1 H Glucose 149 H POC Glucose Hemoglobin A1c Lactic Acid 2.10 H* Calcium 7.5 L Ionized Calcium Total Bilirubin AST 494 H ALT 780 H Alkaline Phosphatase 151 H C-Reactive Protein Total Protein 4.9 L Albumin 1.9 L Complement C3 Complement C4 01/21/18 01/21/18 01/21/18 05:18 12:20 18:07 WBC RBC Hgb Hct MCH RDW Plt Count Lymph % (Auto) [place] % (Auto) Lymph # [place] # Seg Neutrophils % Seg Neuts % (Manual) Lymphocytes % (Manual) Monocytes % (Manual) Nucleated RBC % Seg Neutrophils # Seg Neutrophils # Man Lymphocytes # (Manual) Monocytes # (Manual) PT INR POC ABG pH POC ABG pCO2 POC ABG pO2 VBG pH Sodium Potassium Chloride Carbon Dioxide BUN Creatinine Glucose POC Glucose 132 H 158 H 143 H Hemoglobin A1c Lactic Acid Calcium Ionized Calcium Total Bilirubin AST ALT Alkaline Phosphatase C-Reactive Protein Total Protein Albumin Complement C3 Complement C4 01/21/18 01/22/18 01/22/18 23:40 03:48 04:10 WBC 24.9 H RBC Hgb Hct MCH 27 L RDW Plt Count 80 L Lymph % (Auto) [place] % (Auto) Lymph # [place] # Seg Neutrophils % Seg Neuts % (Manual) Lymphocytes % (Manual) Monocytes % (Manual) Nucleated RBC % Seg Neutrophils # Seg Neutrophils # Man Lymphocytes # (Manual) Monocytes # (Manual) PT INR POC ABG pH POC ABG pCO2 POC ABG pO2 65 L VBG pH Sodium Potassium Chloride Carbon Dioxide BUN Creatinine Glucose POC Glucose 136 H Hemoglobin A1c Lactic Acid Calcium Ionized Calcium Total Bilirubin AST ALT Alkaline Phosphatase C-Reactive Protein Total Protein Albumin Complement C3 Complement C4 01/22/18 01/22/18 01/22/18 04:10 05:56 11:30 WBC RBC Hgb Hct MCH RDW Plt Count Lymph % (Auto) [place] % (Auto) Lymph # [place] # Seg Neutrophils % Seg Neuts % (Manual) Lymphocytes % (Manual) Monocytes % (Manual) Nucleated RBC % Seg Neutrophils # Seg Neutrophils # Man Lymphocytes # (Manual) Monocytes # (Manual) PT INR POC ABG pH POC ABG pCO2 POC ABG pO2 VBG pH Sodium Potassium Chloride 97.7 L Carbon Dioxide BUN 72 H Creatinine 3.6 H Glucose 145 H POC Glucose 139 H 156 H Hemoglobin A1c Lactic Acid Calcium 7.3 L Ionized Calcium Total Bilirubin AST 146 H ALT 547 H Alkaline Phosphatase C-Reactive Protein Total Protein 5.2 L Albumin 2.3 L Complement C3 Complement C4 01/22/18 01/23/18 01/23/18 17:41 00:00 04:39 WBC RBC Hgb Hct MCH RDW Plt Count Lymph % (Auto) [place] % (Auto) Lymph # [place] # Seg Neutrophils % Seg Neuts % (Manual) Lymphocytes % (Manual) Monocytes % (Manual) Nucleated RBC % Seg Neutrophils # Seg Neutrophils # Man Lymphocytes # (Manual) Monocytes # (Manual) PT INR POC ABG pH POC ABG pCO2 31.9 L POC ABG pO2 62 L VBG pH Sodium Potassium Chloride Carbon Dioxide BUN Creatinine Glucose POC Glucose 185 H 150 H Hemoglobin A1c Lactic Acid Calcium Ionized Calcium Total Bilirubin AST ALT Alkaline Phosphatase C-Reactive Protein Total Protein Albumin Complement C3 Complement C4 01/23/18 01/23/18 01/23/18 05:24 11:38 14:20 WBC RBC Hgb Hct MCH RDW Plt Count Lymph % (Auto) [place] % (Auto) Lymph # [place] # Seg Neutrophils % Seg Neuts % (Manual) Lymphocytes % (Manual) Monocytes % (Manual) Nucleated RBC % Seg Neutrophils # Seg Neutrophils # Man Lymphocytes # (Manual) Monocytes # (Manual) PT INR POC ABG pH POC ABG pCO2 31.4 L POC ABG pO2 55 L VBG pH Sodium Potassium Chloride Carbon Dioxide BUN Creatinine Glucose POC Glucose 215 H 182 H Hemoglobin A1c Lactic Acid Calcium Ionized Calcium Total Bilirubin AST ALT Alkaline Phosphatase C-Reactive Protein Total Protein Albumin Complement C3 Complement C4 01/23/18 01/24/18 01/24/18 17:26 00:10 03:40 WBC 34.5 H RBC Hgb Hct MCH 27 L RDW Plt Count 130 L Lymph % (Auto) [place] % (Auto) Lymph # [place] # Seg Neutrophils % Seg Neuts % (Manual) Lymphocytes % (Manual) Monocytes % (Manual) Nucleated RBC % Seg Neutrophils # Seg Neutrophils # Man Lymphocytes # (Manual) Monocytes # (Manual) PT INR POC ABG pH POC ABG pCO2 POC ABG pO2 VBG pH Sodium Potassium Chloride Carbon Dioxide BUN Creatinine Glucose POC Glucose 252 H 225 H Hemoglobin A1c Lactic Acid Calcium Ionized Calcium Total Bilirubin AST ALT Alkaline Phosphatase C-Reactive Protein Total Protein Albumin Complement C3 Complement C4 01/24/18 01/24/18 01/24/18 03:40 06:06 11:36 WBC RBC Hgb Hct MCH RDW Plt Count Lymph % (Auto) [place] % (Auto) Lymph # [place] # Seg Neutrophils % Seg Neuts % (Manual) Lymphocytes % (Manual) Monocytes % (Manual) Nucleated RBC % Seg Neutrophils # Seg Neutrophils # Man Lymphocytes # (Manual) Monocytes # (Manual) PT INR POC ABG pH POC ABG pCO2 POC ABG pO2 VBG pH Sodium Potassium 5.7 H D Chloride 95.6 L Carbon Dioxide 20 L BUN 96 H Creatinine 4.2 H Glucose 166 H POC Glucose 162 H 160 H Hemoglobin A1c Lactic Acid Calcium 7.3 L Ionized Calcium Total Bilirubin AST 52 H ALT 235 H Alkaline Phosphatase C-Reactive Protein Total Protein 5.1 L Albumin 2.5 L Complement C3 Complement C4 01/24/18 01/24/18 01/25/18 15:08 17:32 00:04 WBC RBC Hgb Hct MCH RDW Plt Count Lymph % (Auto) [place] % (Auto) Lymph # [place] # Seg Neutrophils % Seg Neuts % (Manual) Lymphocytes % (Manual) Monocytes % (Manual) Nucleated RBC % Seg Neutrophils # Seg Neutrophils # Man Lymphocytes # (Manual) Monocytes # (Manual) PT INR POC ABG pH POC ABG pCO2 POC ABG pO2 VBG pH Sodium Potassium Chloride Carbon Dioxide BUN Creatinine Glucose POC Glucose 160 H 169 H Hemoglobin A1c Lactic Acid Calcium Ionized Calcium Total Bilirubin AST ALT Alkaline Phosphatase C-Reactive Protein 3.30 H Total Protein Albumin Complement C3 Complement C4 01/25/18 01/25/18 01/25/18 04:34 05:25 11:46 WBC RBC Hgb Hct MCH RDW Plt Count Lymph % (Auto) [place] % (Auto) Lymph # [place] # Seg Neutrophils % Seg Neuts % (Manual) Lymphocytes % (Manual) Monocytes % (Manual) Nucleated RBC % Seg Neutrophils # Seg Neutrophils # Man Lymphocytes # (Manual) Monocytes # (Manual) PT INR POC ABG pH 7.342 L POC ABG pCO2 48.7 H POC ABG pO2 VBG pH Sodium Potassium Chloride Carbon Dioxide BUN Creatinine Glucose POC Glucose 133 H 121 H Hemoglobin A1c Lactic Acid Calcium Ionized Calcium Total Bilirubin AST ALT Alkaline Phosphatase C-Reactive Protein Total Protein Albumin Complement C3 Complement C4 01/25/18 01/25/18 01/26/18 17:42 23:50 04:13 WBC RBC Hgb Hct MCH RDW Plt Count Lymph % (Auto) [place] % (Auto) Lymph # [place] # Seg Neutrophils % Seg Neuts % (Manual) Lymphocytes % (Manual) Monocytes % (Manual) Nucleated RBC % Seg Neutrophils # Seg Neutrophils # Man Lymphocytes # (Manual) Monocytes # (Manual) PT INR POC ABG pH POC ABG pCO2 POC ABG pO2 70 L VBG pH Sodium Potassium Chloride Carbon Dioxide BUN Creatinine Glucose POC Glucose 150 H 149 H Hemoglobin A1c Lactic Acid Calcium Ionized Calcium Total Bilirubin AST ALT Alkaline Phosphatase C-Reactive Protein Total Protein Albumin Complement C3 Complement C4 01/26/18 01/26/18 01/26/18 05:25 06:20 06:20 WBC 21.0 H RBC Hgb Hct MCH RDW Plt Count Lymph % (Auto) [place] % (Auto) Lymph # [place] # Seg Neutrophils % Seg Neuts % (Manual) 95.0 H Lymphocytes % (Manual) 1.0 L Monocytes % (Manual) Nucleated RBC % Seg Neutrophils # Seg Neutrophils # Man 20.0 H Lymphocytes # (Manual) 0.2 L Monocytes # (Manual) PT INR POC ABG pH POC ABG pCO2 POC ABG pO2 VBG pH Sodium Potassium 5.9 H Chloride 95.7 L Carbon Dioxide BUN 102 H Creatinine 4.6 H Glucose POC Glucose 107 H Hemoglobin A1c Lactic Acid Calcium 6.6 L Ionized Calcium Total Bilirubin AST ALT Alkaline Phosphatase C-Reactive Protein Total Protein Albumin Complement C3 Complement C4 01/26/18 01/26/18 01/27/18 12:19 18:09 00:17 WBC RBC Hgb Hct MCH RDW Plt Count Lymph % (Auto) [place] % (Auto) Lymph # [place] # Seg Neutrophils % Seg Neuts % (Manual) Lymphocytes % (Manual) Monocytes % (Manual) Nucleated RBC % Seg Neutrophils # Seg Neutrophils # Man Lymphocytes # (Manual) Monocytes # (Manual) PT INR POC ABG pH POC ABG pCO2 POC ABG pO2 VBG pH Sodium Potassium Chloride Carbon Dioxide BUN Creatinine Glucose POC Glucose 151 H 110 H 159 H Hemoglobin A1c Lactic Acid Calcium Ionized Calcium Total Bilirubin AST ALT Alkaline Phosphatase C-Reactive Protein Total Protein Albumin Complement C3 Complement C4 01/27/18 01/27/18 01/27/18 05:20 05:20 05:43 WBC 23.3 H RBC Hgb Hct MCH 27 L RDW Plt Count Lymph % (Auto) [place] % (Auto) Lymph # [place] # Seg Neutrophils % Seg Neuts % (Manual) 97.0 H Lymphocytes % (Manual) 0 L Monocytes % (Manual) Nucleated RBC % Seg Neutrophils # Seg Neutrophils # Man 22.6 H Lymphocytes # (Manual) 0.0 L Monocytes # (Manual) PT INR POC ABG pH POC ABG pCO2 POC ABG pO2 VBG pH Sodium Potassium 5.7 H Chloride 93.9 L Carbon Dioxide 21 L BUN 121 H Creatinine 5.2 H Glucose 131 H POC Glucose 121 H Hemoglobin A1c Lactic Acid Calcium 6.1 L Ionized Calcium Total Bilirubin AST ALT Alkaline Phosphatase C-Reactive Protein Total Protein Albumin Complement C3 Complement C4 01/27/18 01/27/18 01/28/18 12:16 17:32 00:05 WBC RBC Hgb Hct MCH RDW Plt Count Lymph % (Auto) [place] % (Auto) Lymph # [place] # Seg Neutrophils % Seg Neuts % (Manual) Lymphocytes % (Manual) Monocytes % (Manual) Nucleated RBC % Seg Neutrophils # Seg Neutrophils # Man Lymphocytes # (Manual) Monocytes # (Manual) PT INR POC ABG pH POC ABG pCO2 POC ABG pO2 VBG pH Sodium Potassium Chloride Carbon Dioxide BUN Creatinine Glucose POC Glucose 161 H 146 H 128 H Hemoglobin A1c Lactic Acid Calcium Ionized Calcium Total Bilirubin AST ALT Alkaline Phosphatase C-Reactive Protein Total Protein Albumin Complement C3 Complement C4 01/28/18 01/28/18 01/28/18 04:24 05:43 06:30 WBC 24.8 H RBC Hgb Hct MCH RDW Plt Count Lymph % (Auto) [place] % (Auto) Lymph # [place] # Seg Neutrophils % Seg Neuts % (Manual) 91.0 H Lymphocytes % (Manual) 4.0 L Monocytes % (Manual) Nucleated RBC % Seg Neutrophils # Seg Neutrophils # Man 22.6 H Lymphocytes # (Manual) 1.0 L Monocytes # (Manual) 1.0 H PT INR POC ABG pH POC ABG pCO2 POC ABG pO2 77 L VBG pH Sodium Potassium Chloride Carbon Dioxide BUN Creatinine Glucose POC Glucose 137 H Hemoglobin A1c Lactic Acid Calcium Ionized Calcium Total Bilirubin AST ALT Alkaline Phosphatase C-Reactive Protein Total Protein Albumin Complement C3 Complement C4 01/28/18 01/28/18 01/28/18 06:30 11:30 18:08 WBC RBC Hgb Hct MCH RDW Plt Count Lymph % (Auto) [place] % (Auto) Lymph # [place] # Seg Neutrophils % Seg Neuts % (Manual) Lymphocytes % (Manual) Monocytes % (Manual) Nucleated RBC % Seg Neutrophils # Seg Neutrophils # Man Lymphocytes # (Manual) Monocytes # (Manual) PT INR POC ABG pH POC ABG pCO2 POC ABG pO2 VBG pH Sodium Potassium Chloride 95.2 L Carbon Dioxide BUN 70 H Creatinine 3.7 H Glucose 135 H POC Glucose 183 H 129 H Hemoglobin A1c Lactic Acid Calcium 6.4 L Ionized Calcium Total Bilirubin AST ALT Alkaline Phosphatase C-Reactive Protein Total Protein Albumin Complement C3 Complement C4 01/29/18 01/29/18 01/29/18 00:00 05:50 06:00 WBC 15.8 H RBC 3.37 L Hgb 9.1 L Hct 28.6 L MCH 27 L RDW Plt Count Lymph % (Auto) [place] % (Auto) Lymph # [place] # Seg Neutrophils % Seg Neuts % (Manual) 87.0 H Lymphocytes % (Manual) 7.0 L Monocytes % (Manual) Nucleated RBC % Seg Neutrophils # Seg Neutrophils # Man 13.7 H Lymphocytes # (Manual) 1.1 L Monocytes # (Manual) PT INR POC ABG pH POC ABG pCO2 POC ABG pO2 VBG pH Sodium Potassium Chloride Carbon Dioxide BUN Creatinine Glucose POC Glucose 111 H 120 H Hemoglobin A1c Lactic Acid Calcium Ionized Calcium Total Bilirubin AST ALT Alkaline Phosphatase C-Reactive Protein Total Protein Albumin Complement C3 Complement C4 01/29/18 01/29/18 01/29/18 06:00 06:00 12:29 WBC RBC Hgb Hct MCH RDW Plt Count Lymph % (Auto) [place] % (Auto) Lymph # [place] # Seg Neutrophils % Seg Neuts % (Manual) Lymphocytes % (Manual) Monocytes % (Manual) Nucleated RBC % Seg Neutrophils # Seg Neutrophils # Man Lymphocytes # (Manual) Monocytes # (Manual) PT INR POC ABG pH POC ABG pCO2 POC ABG pO2 VBG pH Sodium 136 L Potassium Chloride 95.4 L Carbon Dioxide BUN 94 H Creatinine 4.2 H Glucose 120 H POC Glucose 134 H Hemoglobin A1c Lactic Acid Calcium 6.5 L Ionized Calcium 3.9 L Total Bilirubin AST ALT Alkaline Phosphatase C-Reactive Protein Total Protein 4.5 L Albumin 2.0 L Complement C3 Complement C4 01/29/18 01/30/18 01/30/18 18:32 00:12 04:47 WBC RBC Hgb Hct MCH RDW Plt Count Lymph % (Auto) [place] % (Auto) Lymph # [place] # Seg Neutrophils % Seg Neuts % (Manual) Lymphocytes % (Manual) Monocytes % (Manual) Nucleated RBC % Seg Neutrophils # Seg Neutrophils # Man Lymphocytes # (Manual) Monocytes # (Manual) PT INR POC ABG pH 7.456 H POC ABG pCO2 POC ABG pO2 VBG pH Sodium Potassium Chloride Carbon Dioxide BUN Creatinine Glucose POC Glucose 158 H 155 H Hemoglobin A1c Lactic Acid Calcium Ionized Calcium Total Bilirubin AST ALT Alkaline Phosphatase C-Reactive Protein Total Protein Albumin Complement C3 Complement C4 01/30/18 01/30/18 01/30/18 12:06 17:46 Unknown WBC 12.8 H RBC 3.09 L Hgb 8.4 L Hct 26.2 L MCH 27 L RDW Plt Count Lymph % (Auto) [place] % (Auto) Lymph # [place] # Seg Neutrophils % Seg Neuts % (Manual) 95.0 H Lymphocytes % (Manual) 1.0 L Monocytes % (Manual) Nucleated RBC % Seg Neutrophils # Seg Neutrophils # Man 12.2 H Lymphocytes # (Manual) 0.1 L Monocytes # (Manual) PT INR POC ABG pH POC ABG pCO2 POC ABG pO2 VBG pH Sodium Potassium Chloride Carbon Dioxide BUN Creatinine Glucose POC Glucose 117 H 166 H Hemoglobin A1c Lactic Acid Calcium Ionized Calcium Total Bilirubin AST ALT Alkaline Phosphatase C-Reactive Protein Total Protein Albumin Complement C3 Complement C4 01/30/18 01/31/18 01/31/18 Unknown 00:04 04:50 WBC 13.6 H RBC 3.53 L Hgb 9.8 L Hct 30.0 L MCH RDW 15.4 H Plt Count Lymph % (Auto) 3.6 L [place] % (Auto) 8.7 H Lymph # 0.5 L [place] # 1.2 H Seg Neutrophils % 87.1 H Seg Neuts % (Manual) Lymphocytes % (Manual) Monocytes % (Manual) Nucleated RBC % Seg Neutrophils # 11.8 H Seg Neutrophils # Man Lymphocytes # (Manual) Monocytes # (Manual) PT INR POC ABG pH POC ABG pCO2 POC ABG pO2 VBG pH Sodium Potassium Chloride Carbon Dioxide BUN 52 H Creatinine 2.9 H Glucose 105 H POC Glucose 155 H Hemoglobin A1c Lactic Acid Calcium 6.7 L Ionized Calcium Total Bilirubin AST ALT Alkaline Phosphatase C-Reactive Protein Total Protein Albumin Complement C3 Complement C4 01/31/18 01/31/18 01/31/18 04:50 17:08 23:38 WBC RBC Hgb Hct MCH RDW Plt Count Lymph % (Auto) [place] % (Auto) Lymph # [place] # Seg Neutrophils % Seg Neuts % (Manual) Lymphocytes % (Manual) Monocytes % (Manual) Nucleated RBC % Seg Neutrophils # Seg Neutrophils # Man Lymphocytes # (Manual) Monocytes # (Manual) PT INR POC ABG pH POC ABG pCO2 POC ABG pO2 VBG pH Sodium Potassium Chloride Carbon Dioxide BUN 70 H Creatinine 3.3 H Glucose 102 H POC Glucose 106 H 136 H Hemoglobin A1c Lactic Acid Calcium 7.1 L Ionized Calcium Total Bilirubin AST ALT Alkaline Phosphatase C-Reactive Protein Total Protein Albumin Complement C3 Complement C4 02/01/18 02/01/18 02/01/18 04:00 04:00 05:25 WBC RBC 3.16 L Hgb 8.7 L Hct 27.5 L MCH RDW Plt Count Lymph % (Auto) 6.4 L [place] % (Auto) 10.2 H Lymph # 0.7 L [place] # 1.1 H Seg Neutrophils % 81.7 H Seg Neuts % (Manual) Lymphocytes % (Manual) Monocytes % (Manual) Nucleated RBC % Seg Neutrophils # 8.6 H Seg Neutrophils # Man Lymphocytes # (Manual) Monocytes # (Manual) PT INR POC ABG pH POC ABG pCO2 POC ABG pO2 VBG pH Sodium Potassium 3.4 L Chloride Carbon Dioxide 31 H BUN 42 H Creatinine 2.2 H Glucose 101 H POC Glucose 163 H Hemoglobin A1c Lactic Acid Calcium 7.1 L Ionized Calcium Total Bilirubin AST ALT Alkaline Phosphatase C-Reactive Protein Total Protein Albumin Complement C3 Complement C4 02/01/18 02/01/18 02/01/18 11:54 18:21 23:34 WBC RBC Hgb Hct MCH RDW Plt Count Lymph % (Auto) [place] % (Auto) Lymph # [place] # Seg Neutrophils % Seg Neuts % (Manual) Lymphocytes % (Manual) Monocytes % (Manual) Nucleated RBC % Seg Neutrophils # Seg Neutrophils # Man Lymphocytes # (Manual) Monocytes # (Manual) PT INR POC ABG pH POC ABG pCO2 POC ABG pO2 VBG pH Sodium Potassium Chloride Carbon Dioxide BUN Creatinine Glucose POC Glucose 123 H 157 H 114 H Hemoglobin A1c Lactic Acid Calcium Ionized Calcium Total Bilirubin AST ALT Alkaline Phosphatase C-Reactive Protein Total Protein Albumin Complement C3 Complement C4 02/02/18 02/02/18 02/02/18 03:30 05:45 17:27 WBC RBC Hgb Hct MCH RDW Plt Count Lymph % (Auto) [place] % (Auto) Lymph # [place] # Seg Neutrophils % Seg Neuts % (Manual) Lymphocytes % (Manual) Monocytes % (Manual) Nucleated RBC % Seg Neutrophils # Seg Neutrophils # Man Lymphocytes # (Manual) Monocytes # (Manual) PT INR POC ABG pH POC ABG pCO2 POC ABG pO2 VBG pH Sodium Potassium 3.3 L Chloride 97.8 L Carbon Dioxide BUN 58 H Creatinine 2.7 H Glucose 111 H POC Glucose 110 H 125 H Hemoglobin A1c Lactic Acid Calcium 7.1 L Ionized Calcium Total Bilirubin AST ALT Alkaline Phosphatase C-Reactive Protein Total Protein Albumin Complement C3 Complement C4 02/02/18 02/03/18 02/03/18 23:34 04:45 05:38 WBC RBC Hgb Hct MCH RDW Plt Count Lymph % (Auto) [place] % (Auto) Lymph # [place] # Seg Neutrophils % Seg Neuts % (Manual) Lymphocytes % (Manual) Monocytes % (Manual) Nucleated RBC % Seg Neutrophils # Seg Neutrophils # Man Lymphocytes # (Manual) Monocytes # (Manual) PT INR POC ABG pH POC ABG pCO2 POC ABG pO2 VBG pH Sodium Potassium Chloride Carbon Dioxide BUN 72 H Creatinine 3.2 H Glucose POC Glucose 153 H 111 H Hemoglobin A1c Lactic Acid Calcium 7.6 L Ionized Calcium Total Bilirubin AST ALT Alkaline Phosphatase C-Reactive Protein Total Protein Albumin Complement C3 Complement C4 02/03/18 02/03/18 02/03/18 11:36 18:26 22:45 WBC RBC Hgb Hct MCH RDW Plt Count Lymph % (Auto) [place] % (Auto) Lymph # [place] # Seg Neutrophils % Seg Neuts % (Manual) Lymphocytes % (Manual) Monocytes % (Manual) Nucleated RBC % Seg Neutrophils # Seg Neutrophils # Man Lymphocytes # (Manual) Monocytes # (Manual) PT INR POC ABG pH POC ABG pCO2 POC ABG pO2 VBG pH Sodium Potassium Chloride Carbon Dioxide BUN Creatinine Glucose POC Glucose 108 H 155 H 141 H Hemoglobin A1c Lactic Acid Calcium Ionized Calcium Total Bilirubin AST ALT Alkaline Phosphatase C-Reactive Protein Total Protein Albumin Complement C3 Complement C4 02/04/18 02/04/18 02/04/18 04:06 11:57 15:05 WBC RBC Hgb Hct MCH RDW Plt Count Lymph % (Auto) [place] % (Auto) Lymph # [place] # Seg Neutrophils % Seg Neuts % (Manual) Lymphocytes % (Manual) Monocytes % (Manual) Nucleated RBC % Seg Neutrophils # Seg Neutrophils # Man Lymphocytes # (Manual) Monocytes # (Manual) PT INR POC ABG pH POC ABG pCO2 POC ABG pO2 109 H VBG pH Sodium 136 L Potassium 3.4 L Chloride 96.7 L Carbon Dioxide BUN 42 H Creatinine 1.9 H Glucose POC Glucose 119 H Hemoglobin A1c Lactic Acid Calcium 7.3 L Ionized Calcium Total Bilirubin AST ALT Alkaline Phosphatase C-Reactive Protein Total Protein Albumin Complement C3 Complement C4 02/05/18 02/05/18 02/05/18 04:10 05:04 18:02 WBC RBC Hgb Hct MCH RDW Plt Count Lymph % (Auto) [place] % (Auto) Lymph # [place] # Seg Neutrophils % Seg Neuts % (Manual) Lymphocytes % (Manual) Monocytes % (Manual) Nucleated RBC % Seg Neutrophils # Seg Neutrophils # Man Lymphocytes # (Manual) Monocytes # (Manual) PT INR POC ABG pH POC ABG pCO2 POC ABG pO2 VBG pH Sodium Potassium 3.5 L Chloride Carbon Dioxide BUN 52 H Creatinine 2.2 H Glucose POC Glucose 108 H 124 H Hemoglobin A1c Lactic Acid Calcium 7.5 L Ionized Calcium Total Bilirubin AST ALT Alkaline Phosphatase C-Reactive Protein Total Protein Albumin Complement C3 Complement C4 02/06/18 02/06/18 02/06/18 05:38 07:52 07:52 WBC RBC 2.91 L Hgb 8.1 L Hct 24.6 L MCH RDW Plt Count Lymph % (Auto) 11.2 L [place] % (Auto) 8.5 H Lymph # 0.6 L [place] # Seg Neutrophils % 76.9 H Seg Neuts % (Manual) Lymphocytes % (Manual) Monocytes % (Manual) Nucleated RBC % Seg Neutrophils # Seg Neutrophils # Man Lymphocytes # (Manual) Monocytes # (Manual) PT INR POC ABG pH POC ABG pCO2 POC ABG pO2 VBG pH Sodium Potassium 3.2 L Chloride Carbon Dioxide BUN 37 H Creatinine 1.6 H Glucose 109 H POC Glucose 119 H Hemoglobin A1c Lactic Acid Calcium 8.1 L Ionized Calcium Total Bilirubin AST ALT Alkaline Phosphatase C-Reactive Protein Total Protein Albumin Complement C3 Complement C4 02/06/18 02/06/18 02/07/18 12:14 17:20 07:45 WBC RBC 2.61 L Hgb 7.4 L Hct 22.7 L MCH RDW Plt Count Lymph % (Auto) [place] % (Auto) Lymph # [place] # Seg Neutrophils % Seg Neuts % (Manual) Lymphocytes % (Manual) Monocytes % (Manual) Nucleated RBC % Seg Neutrophils # Seg Neutrophils # Man Lymphocytes # (Manual) Monocytes # (Manual) PT INR POC ABG pH POC ABG pCO2 POC ABG pO2 VBG pH Sodium Potassium Chloride Carbon Dioxide BUN Creatinine Glucose POC Glucose 109 H 106 H Hemoglobin A1c Lactic Acid Calcium Ionized Calcium Total Bilirubin AST ALT Alkaline Phosphatase C-Reactive Protein Total Protein Albumin Complement C3 Complement C4 02/07/18 02/08/18 02/08/18 07:45 08:16 08:16 WBC 3.7 L RBC 2.49 L Hgb 7.0 L Hct 21.5 L MCH RDW Plt Count Lymph % (Auto) [place] % (Auto) Lymph # [place] # Seg Neutrophils % Seg Neuts % (Manual) Lymphocytes % (Manual) Monocytes % (Manual) Nucleated RBC % Seg Neutrophils # Seg Neutrophils # Man Lymphocytes # (Manual) Monocytes # (Manual) PT INR POC ABG pH POC ABG pCO2 POC ABG pO2 VBG pH Sodium Potassium Chloride Carbon Dioxide BUN 48 H 52 H Creatinine 2.1 H 2.0 H Glucose POC Glucose Hemoglobin A1c Lactic Acid Calcium 8.1 L 8.3 L Ionized Calcium Total Bilirubin AST ALT Alkaline Phosphatase C-Reactive Protein Total Protein Albumin Complement C3 Complement C4 Allied health notes reviewed: nursing
[2018-02-08] MEDS: SODIUM CHLORIDE FLUSH SYRINGE 10 ML IV SCH (10:44)
--- NOTE | 2018-02-08 11:39 | XRay Report ---
AP CHEST: HISTORY: Chest tube, pneumothorax. Left chest tube is unchanged in position since 02/06/18. No recurrent pneumothorax is demonstrated. The remainder of the examination is unchanged. IMPRESSION: No change.
[2018-02-08] MEDS: DILAUDID IV PRN ×2 (13:11→22:05)
--- NOTE | 2018-02-08 16:45 | Progress Note ---
Assessment and Plan Assessment and plan: Patient is a 63-year-old woman with a history of coronary artery disease status post coronary artery disease status post stent, permanent pacemaker, hypertension and polysubstance abuse including methamphetamine and cocaine, who presented to the emergency department on 01/17/2018 after being found unresponsive at home. She was intubated and hypotensive requiring vasopressor admission to the ICU. She was extubated 02/05/2018 and transferred out of the icu * 01/20/18 Renal Ultrasound Bilateral IMPRESSION: Unremarkable renal ultrasound. A cystic mass is identified in the superior pelvis just above the uterine fundus , please see above. This cystic mass would likely best be evaluated with CT with IV and oral contrast if needed. I am assuming this patient is postmenopausal, the endometrium measures 13 mm. Consider further evaluation with pelvic ultrasound. * 01/21/18 Pelvic ultrasound IMPRESSION: Very limited evaluation of the uterus. Possible endometrial thickening. There are either large cysts in the right pelvis versus focal fluid collections. Consider further evaluation with CT with IV and oral contrast. * 01/25/18 CT abd/pelvis wo Impression: Faint linear lucencies within the spleen may be artifactual or related to ischemia/trauma. Further evaluation with contrast study advised. Nonobstructing calculi left kidney. Large cyst with thin septa anterosuperior to the uterus. Solid appearing mass left of the uterus in the pelvis. Further correlation with sonography may be recommended. Diverticulosis sigmoid colon without evidence of diverticulitis. * 02/03/18 CT chest w/ contrast IMPRESSION: The left chest tube terminates in the anterior left pleural space adjacent to lingula. There is decreased left lower lobe atelectasis although a cavitating lesion in the left lower lobe is now visualized most consistent with a pneumatocele. Bilateral pleural effusions as described. 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 speech eval pending, remove ngt if she passes swallow evaluation 02/07/18: Ordered PT/OT, still with Chest tube, pulmonology is managing. Disposition: Placement/SNF will be difficult because she is unfunded per case management. Possibly home with daughter once chest tube removed. 02/08/18: spoke with Pulmonology regarding chest tube, Dr. Allan will follow up. History Interval history: Patient was seen and examined. Follow-up on current diagnosis of shortness of breath which has improved. Overnight uneventful. Patient denies any chest pain , nausea/vomiting or severe headaches. Imaging, nursing note, chart, labs and old chart reviewed. Discussed with patient. Hospitalist Physical - Physical exam Narrative exam: GEN: ill appearing/deconditioned, nad, BMI 35.3 NAD, arousable ORIENTATED HEENT: NCAT, EOMI, PERRL, OP Clear, ngt removed NECK: supple, no adenopathy, no thyromegaly, no JVD CVS/HEART: RRR, NORMAL S1S2, pulses present bilaterally CHEST/LUNGS: Diminished breath sounds bilaterally, Symmetrical chest expansion, adequate air entry bilaterally, chest tube in place on left GI/Abdomen: soft, NTND, good bowel sounds, no guarding or rebound /Bladder: no suprapubic tenderness, no CVA or paraspinal tenderness EXT/Skin: necrotic limbs x 4 MSK: FROM x 4 Neuro: CN 2-12 grossly intact, no new focal deficits Psych: calm - Constitutional Vitals: Temp Pulse Resp BP Pulse Ox 99.1 F 86 20 141/85 96 02/08/18 05:20 02/08/18 10:00 02/08/18 08:52 02/08/18 05:20 02/08/18 08:22 General appearance: Present: no acute distress Results - Labs CBC & Chem 7: 02/08/18 08:16 02/08/18 08:16 Labs: Laboratory Last Values WBC 3.7 K/mm3 (4.5-11.0) L 02/08/18 08:16 RBC 2.49 M/mm3 (3.65-5.03) L 02/08/18 08:16 Hgb 7.0 gm/dl (10.1-14.3) L 02/08/18 08:16 Hct 21.5 % (30.3-42.9) L 02/08/18 08:16 MCV 86 fl (79-97) 02/08/18 08:16 MCH 28 pg (28-32) 02/08/18 08:16 MCHC 32 % (30-34) 02/08/18 08:16 RDW 14.5 % (13.2-15.2) 02/08/18 08:16 Plt Count 195 K/mm3 (140-440) 02/08/18 08:16 Lymph % (Auto) 11.2 % (13.4-35.0) L 02/06/18 07:52 [place] % (Auto) 8.5 % (0.0-7.3) H 02/06/18 07:52 Eos % (Auto) 2.7 % (0.0-4.3) 02/06/18 07:52 Baso % (Auto) 0.7 % (0.0-1.8) 02/06/18 07:52 Lymph # 0.6 K/mm3 (1.2-5.4) L 02/06/18 07:52 [place] # 0.5 K/mm3 (0.0-0.8) 02/06/18 07:52 Eos # 0.2 K/mm3 (0.0-0.4) 02/06/18 07:52 Baso # 0.0 K/mm3 (0.0-0.1) 02/06/18 07:52 Add Manual Diff Complete 01/30/18 Unknown Total Counted 100 01/30/18 Unknown Seg Neutrophils % 76.9 % (40.0-70.0) H 02/06/18 07:52 Seg Neuts % (Manual) 95.0 % (40.0-70.0) H 01/30/18 Unknown Band Neutrophils % 2.0 % 01/30/18 Unknown Lymphocytes % (Manual) 1.0 % (13.4-35.0) L 01/30/18 Unknown Reactive Lymphs % (Man) 0 % 01/30/18 Unknown Monocytes % (Manual) 2.0 % (0.0-7.3) 01/30/18 Unknown Eosinophils % (Manual) 0 % (0.0-4.3) 01/30/18 Unknown Basophils % (Manual) 0 % (0.0-1.8) 01/30/18 Unknown Metamyelocytes % 0 % 01/30/18 Unknown Myelocytes % 0 % 01/30/18 Unknown Promyelocytes % 0 % 01/30/18 Unknown Blast Cells % 0 % 01/30/18 Unknown Nucleated RBC % Not Reportable 01/30/18 Unknown Seg Neutrophils # 4.3 K/mm3 (1.8-7.7) 02/06/18 07:52 Seg Neutrophils # Man 12.2 K/mm3 (1.8-7.7) H 01/30/18 Unknown Band Neutrophils # 0.3 K/mm3 01/30/18 Unknown Lymphocytes # (Manual) 0.1 K/mm3 (1.2-5.4) L 01/30/18 Unknown Abs React Lymphs (Man) 0.0 K/mm3 01/30/18 Unknown Monocytes # (Manual) 0.3 K/mm3 (0.0-0.8) 01/30/18 Unknown Eosinophils # (Manual) 0.0 K/mm3 (0.0-0.4) 01/30/18 Unknown Basophils # (Manual) 0.0 K/mm3 (0.0-0.1) 01/30/18 Unknown Metamyelocytes # 0.0 K/mm3 01/30/18 Unknown Myelocytes # 0.0 K/mm3 01/30/18 Unknown Promyelocytes # 0.0 K/mm3 01/30/18 Unknown Blast Cells # 0.0 K/mm3 01/30/18 Unknown WBC Morphology Not Reportable 01/30/18 Unknown Hypersegmented Neuts Not Reportable 01/30/18 Unknown Hyposegmented Neuts Not Reportable 01/30/18 Unknown Hypogranular Neuts Not Reportable 01/30/18 Unknown Smudge Cells Not Reportable 01/30/18 Unknown Toxic Granulation Not Reportable 01/30/18 Unknown Toxic Vacuolation Not Reportable 01/30/18 Unknown Dohle Bodies Not Reportable 01/30/18 Unknown Pelger-Huet Anomaly Not Reportable 01/30/18 Unknown Opal Rods Not Reportable 01/30/18 Unknown Platelet Estimate Consistent w auto 01/30/18 Unknown Clumped Platelets Not Reportable 01/30/18 Unknown Plt Clumps, EDTA Not Reportable 01/30/18 Unknown Large Platelets Not Reportable 01/30/18 Unknown Giant Platelets Not Reportable 01/30/18 Unknown Platelet Satelliting Not Reportable 01/30/18 Unknown Plt Morphology Comment Not Reportable 01/30/18 Unknown RBC Morphology Not Reportable 01/30/18 Unknown Dimorphic RBCs Not Reportable 01/30/18 Unknown Polychromasia Not Reportable 01/30/18 Unknown Hypochromasia 1+ 01/30/18 Unknown Poikilocytosis Not Reportable 01/30/18 Unknown Anisocytosis Not Reportable 01/30/18 Unknown Microcytosis Few 01/30/18 Unknown Macrocytosis Not Reportable 01/30/18 Unknown Spherocytes Not Reportable 01/30/18 Unknown Pappenheimer Bodies Not Reportable 01/30/18 Unknown Sickle Cells Not Reportable 01/30/18 Unknown Target Cells Not Reportable 01/30/18 Unknown Tear Drop Cells Not Reportable 01/30/18 Unknown Ovalocytes Not Reportable 01/30/18 Unknown Stomatocytes Few 01/30/18 Unknown Helmet Cells Not Reportable 01/30/18 Unknown Frankel-Tenafly Bodies Not Reportable 01/30/18 Unknown Mobile Rings Not Reportable 01/30/18 Unknown Jaclyn Cells Not Reportable 01/30/18 Unknown Bite Cells Not Reportable 01/30/18 Unknown Crenated Cell Not Reportable 01/30/18 Unknown Elliptocytes Not Reportable 01/30/18 Unknown Acanthocytes (Spur) Not Reportable 01/30/18 Unknown Rouleaux Not Reportable 01/30/18 Unknown Hemoglobin C Crystals Not Reportable 01/30/18 Unknown Schistocytes Not Reportable 01/30/18 Unknown Malaria parasites Not Reportable 01/30/18 Unknown Brock Bodies Not Reportable 01/30/18 Unknown Hem Pathologist Commnt No 01/30/18 Unknown PT 17.5 Sec. (12.2-14.9) H 01/20/18 07:00 INR 1.35 (0.87-1.13) H 01/20/18 07:00 Heparin Anti-Xa, Unfract Negative (Negative) 01/20/18 11:03 POC ABG pH 7.441 (7.35-7.45) 02/04/18 15:05 POC ABG pCO2 43.6 (35-45) 02/04/18 15:05 POC ABG pO2 109 (80-105) H 02/04/18 15:05 POC ABG HCO3 29.7 02/04/18 15:05 POC ABG Total CO2 31 02/04/18 15:05 POC ABG O2 Sat 98 02/04/18 15:05 POC ABG Base Excess 6 02/04/18 15:05 VBG pH 7.273 (7.320-7.420) L 01/17/18 16:54 FiO2 35 % 02/04/18 15:05 Sodium 144 mmol/L (137-145) 02/08/18 08:16 Potassium 3.7 mmol/L (3.6-5.0) 02/08/18 08:16 Chloride 103.7 mmol/L (98-107) 02/08/18 08:16 Carbon Dioxide 26 mmol/L (22-30) 02/08/18 08:16 Anion Gap 18 mmol/L 02/08/18 08:16 BUN 52 mg/dL (7-17) H 02/08/18 08:16 Creatinine 2.0 mg/dL (0.7-1.2) H 02/08/18 08:16 Estimated GFR 25 ml/min 02/08/18 08:16 BUN/Creatinine Ratio 26 % 02/08/18 08:16 Glucose 89 mg/dL (65-100) 02/08/18 08:16 POC Glucose 121 (70-105) H 02/08/18 16:35 Hemoglobin A1c 9.0 % (4-6) H 01/17/18 22:36 Lactic Acid 1.40 mmol/L (0.7-2.0) 01/24/18 15:08 Calcium 8.3 mg/dL (8.4-10.2) L 02/08/18 08:16 Ionized Calcium 3.9 mg/dL (4.8-5.6) L 01/29/18 06:00 Magnesium 1.80 mg/dL (1.7-2.3) 01/29/18 06:00 Total Bilirubin 0.50 mg/dL (0.1-1.2) 01/29/18 06:00 AST 21 units/L (5-40) 01/29/18 06:00 ALT 53 units/L (7-56) 01/29/18 06:00 Alkaline Phosphatase 88 units/L (35-129) 01/29/18 06:00 C-Reactive Protein 3.30 mg/dL (0.00-1.30) H 01/24/18 15:08 Total Protein 4.5 g/dL (6.3-8.2) L 01/29/18 06:00 Albumin 2.0 g/dL (3.9-5) L 01/29/18 06:00 Albumin/Globulin Ratio 0.8 % 01/29/18 06:00 Serotonin Release Assay See scanned report 01/20/18 11:03 Random Vancomycin 19.8 ug/mL (0-40.0) 01/27/18 05:20 ALISA Screen Negative (Negative) 01/20/18 Unknown Heparin-induced Plt Ab Negative (Negative) 01/20/18 11:03 UF Heparin High Dose 0 % Release 01/20/18 11:03 NEGRITA UFH Low Dose 0.1 0 % Release 01/20/18 11:03 NEGRITA UFH Low Dose 0.5 0 % Release 01/20/18 11:03 Complement C3 47 mg/dL (83-193) L 01/20/18 Unknown Complement C4 9 mg/dL (15-57) L 01/20/18 Unknown Hepatitis A IgM Ab Non-reactive (NonReactive) 01/20/18 07:00 Hep Bs Antigen Non-reactive (Negative) 01/20/18 07:00 Hep B Core IgM Ab Non-reactive (NonReactive) 01/20/18 07:00 Hepatitis C Antibody Non-reactive (NonReactive) 01/20/18 07:00 HIV 1&2 Antibody Rapid Non react (Non React) 01/20/18 Unknown HIV P24 Antigen Non react (Non React) 01/20/18 Unknown
--- NOTE | 2018-02-08 16:48 | Progress Note ---
Assessment and Plan Impression: * Acute kidney injury secondary to ATN - on hemodialysis * Acute respiratory failure - extubated * Spontaneous left pneumothorax s/p chest tube insertion * Sepsis * Pleural effusion * Cardiomyopathy * Anemia * Polysubstance abuse * Type II DM * Ischemic, necrotic digits of hands/feet * Pelvic mass Plan: * Continue to hold HD - SCr is stable - 2.0mg/dL today * Patient appears to have recovered renal function * Continue to monitor; if renal function remains stable, will arrange for removal of vascath next week * Consultants' recommendations noted * Abx per ID * Strict i/os * Avoid nephrotoxins * Daily lytes Subjective Date of service: 02/08/18 Principal diagnosis: Acute hypoxic respiratory failure, severe sepsis with shock , encephalopathy Interval history: Patient has no complaints today. Objective - Vital Signs Vital signs: Vital Signs - 12hr 02/08/18 02/08/18 02/08/18 05:20 05:56 08:19 Temperature 99.1 F Pulse Rate 92 H 94 H Pulse Rate [ 94 H Bilateral Throughout] Respiratory 20 Rate Respiratory 18 Rate [Bilateral Throughout] Blood Pressure 141/85 O2 Sat by Pulse 97 Oximetry 02/08/18 02/08/18 02/08/18 08:22 08:52 10:00 Temperature Pulse Rate 86 Pulse Rate [ 87 Bilateral Throughout] Respiratory Rate Respiratory 20 Rate [Bilateral Throughout] Blood Pressure O2 Sat by Pulse 96 Oximetry - General Appearance General appearance: well-developed, well-nourished EENT: ATNC Respiratory: Present: Decreased Breath Sounds Cardiology: regular, S1S2 Gastrointestinal: normal, no tenderness, no distended Integumentary: other (ischemic changes to digits of hands and feet) Musculoskeletal: other (trace edema) Psychiatric: cooperative - Lab 02/08/18 08:16 02/08/18 08:16 Most recent lab results Calcium 8.3 mg/dL (8.4-10.2) L 02/08/18 08:16 Magnesium 1.80 mg/dL (1.7-2.3) 01/29/18 06:00
[2018-02-09] MEDS: DILAUDID IV PRN ×3 (05:20→21:47)
[2018-02-09 06:38] LABS: Hematocrit 20.3 % (30.3-42.9); Hemoglobin 6.8 gm/dl (10.1-14.3); Mean Corpuscular HGB Conc 34 % (30-34); Mean Corpuscular Hemoglobin 29 pg (28-32); Mean Corpuscular Volume 85 fl (79-97); Red Blood Count 2.38 M/mm3 (3.65-5.03); Red Cell Distribution Width 14.6 % (13.2-15.2)
[2018-02-09 06:56] LABS: Platelet Count 173 K/mm3 (140-440)
[2018-02-09] MEDS: BROVANA NEBU IH SCH ×2 (07:33→19:14)
[2018-02-09] MEDS: PULMICORT IH SCH ×2 (07:33→19:14)
[2018-02-09] MEDS: PEPCID PO SCH (11:12)
--- NOTE | 2018-02-09 11:52 | Progress Note ---
Assessment and Plan Impression: * Acute kidney injury secondary to ATN - on hemodialysis * Acute respiratory failure - extubated * Spontaneous left pneumothorax s/p chest tube insertion * Sepsis * Pleural effusion * Cardiomyopathy * Anemia * Polysubstance abuse * Type II DM * Ischemic, necrotic digits of hands/feet * Pelvic mass Plan: * Continue to hold HD - SCr is stable - 1.6mg/dL today - patient has recovered renal function * Continue to monitor; if renal function remains stable, will arrange for removal of vascath next week * Consultants' recommendations noted * Abx per ID * Strict i/os * Avoid nephrotoxins * Daily lytes Subjective Date of service: 02/09/18 Principal diagnosis: Acute hypoxic respiratory failure, severe sepsis with shock , encephalopathy Interval history: Patient without complaint Objective - Vital Signs Vital signs: Vital Signs - 12hr 02/09/18 02/09/18 02/09/18 02:18 08:12 09:14 Temperature 98.5 F 99.1 F 98.5 F Pulse Rate 98 H 99 H 91 H Respiratory 22 22 18 Rate Blood Pressure 137/80 156/87 132/74 [Left] O2 Sat by Pulse 97 95 Oximetry 02/09/18 02/09/18 10:00 11:17 Temperature Pulse Rate 86 Respiratory 18 Rate Blood Pressure [Left] O2 Sat by Pulse 96 Oximetry - General Appearance General appearance: well-developed, well-nourished EENT: ATNC Respiratory: Present: Clear to Ascultation Cardiology: regular, S1S2 Gastrointestinal: normal, no tenderness, no distended Integumentary: other (ischemic, necrotic changes to digits of hands/feet) Musculoskeletal: other (no edema) Psychiatric: cooperative - Lab 02/09/18 05:31 02/09/18 05:31 Most recent lab results Calcium 8.0 mg/dL (8.4-10.2) L 02/09/18 05:31 Magnesium 1.80 mg/dL (1.7-2.3) 01/29/18 06:00
--- NOTE | 2018-02-09 14:17 | Gastroenterology Consultation ---
History of Present Illness - Reason for Consult Consult date: 02/09/18 anemia Requesting physician: MARY SINGER - History of Present Illness Ms Preciado is a 63 yo wf with extensive past medical history as detailed below , who presented with unresponsiveness. She has a h/o decompensated heart failure, CAD, polysubstance abuse, and was in respiratory failure on admission. 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 She was initially in the ICU but was transferred to the floor a couple days ago with improvement of acute medical issues. She is awake/alert and able to answer questions appropriately. She has been tolerating solid diet today. She reports having some abd pain yesterday which has since resolved. + constipation, and has not noticed any blood in stool on previous bm's. Denies n/v/or signs of upper gi bleeding. Denies h/o overt gi bleeding, or prior endoscopy/colonoscopy. She has had a slow decline in hct since admission. Past History Past Medical History: CAD, hypertension, hyperlipidemia, liver disease, PVD, other (gangrene) Past Surgical History: Other (pacemaker) Social history: smoking, other (nasal methamphetamine frequently per daughter). denies: alcohol abuse (1 pack per day) Family history: hypertension (both parents), other (no history of seizures). denies: stroke Medications and Allergies Allergies Allergy/AdvReac Type Severity Reaction Status Date / Time Penicillins Allergy Hives Verified 01/17/18 15:27 Home Medications Medication Instructions Recorded Confirmed Last Taken Type Lisinopril 40 mg PO DAILY 01/17/18 01/17/18 Unknown History Active Meds: Active Medications Acetaminophen (Tylenol) 650 mg FEEDTUBE Q6H PRN PRN Reason: Pain MILD(1-3)/Fever >100.5/WHEELER Last Admin: 02/04/18 21:39 Dose: 650 mg Albuterol (Proventil) 2.5 mg IH Q4HRT PRN PRN Reason: Shortness Of Breath Lipase/Protease/Amylase (Mackenzie Jarrell 10,500 Unit) 1 each FEEDTUBE PRN PRN PRN Reason: For Clogged Feeding Tube Arformoterol Tartrate (Brovana Nebu) 15 mcg IH Q12HRT RIGOBERTO Last Admin: 02/09/18 07:33 Dose: 15 mcg Budesonide (Pulmicort) 0.5 mg IH Q12HRT RIGOBERTO Last Admin: 02/09/18 07:33 Dose: 0.5 mg Famotidine (Pepcid) 20 mg PO DAILY [facility] Last Admin: 02/09/18 11:12 Dose: 20 mg Heparin Sodium (Porcine) (Heparin) 5,000 unit IV PAYAL PRN PRN Reason: hemodialysis Last Admin: 02/03/18 21:14 Dose: 5,000 unit Hydralazine HCl (Apresoline) 10 mg IV Q4H PRN PRN Reason: Hypertension Last Admin: 02/02/18 17:47 Dose: 10 mg Hydromorphone HCl (Dilaudid) 0.5 mg IV Q3H PRN PRN Reason: Pain , Severe (7-10) Last Admin: 02/09/18 05:20 Dose: 0.5 mg Sodium Chloride (Nacl 0.9%) 100 mls @ 999 mls/hr IV PAYAL PRN PRN Reason: Hypotension Metoclopramide HCl (Reglan) 10 mg IV Q6H PRN PRN Reason: Nausea And Vomiting Last Admin: 02/05/18 17:58 Dose: 10 mg Metoprolol Tartrate (Lopressor) 5 mg IV Q6HR PRN PRN Reason: HR > 110, SBP > 160 Quetiapine Fumarate (Seroquel) 200 mg PO QHS [facility] Last Admin: 02/08/18 22:50 Dose: 200 mg Review of Systems - Review of Systems All systems: negative (per hpi) Exam - Constitutional Vital Signs: Temp Pulse Resp BP Pulse Ox 98.5 F 86 18 132/74 96 02/09/18 09:14 02/09/18 10:00 02/09/18 11:17 02/09/18 09:14 02/09/18 11:17 General appearance: no acute distress, obese, other (appears older than stated age) - EENT Eyes: PERRL, EOM intact ENT: hearing intact, poor dentition - Respiratory Respiratory effort: normal Respiratory: bilateral: CTA - Cardiovascular Rhythm: regular Heart Sounds: Present: S1 & S2 Extremities: abnormal (+ gangrene of lower extremities and digits of fingers) - Gastrointestinal General gastrointestinal: Present: soft, non-tender, non-distended - Neurologic Neurological: alert and oriented x3 - Psychiatric Psychiatric: appropriate mood/affect - Labs CBC & Chem 7: 02/09/18 05:31 04/01/18 05:31 Lab Results: Laboratory Results - last 24 hr 02/08/18 02/09/18 02/09/18 16:35 00:19 05:31 WBC 3.7 L RBC 2.38 L Hgb 6.8 L Hct 20.3 L MCV 85 MCH 29 MCHC 34 RDW 14.6 Plt Count 173 Sodium Potassium Chloride Carbon Dioxide Anion Gap BUN Creatinine Estimated GFR BUN/Creatinine Ratio Glucose POC Glucose 121 H 171 H Calcium 02/09/18 02/09/18 05:31 11:49 WBC RBC Hgb Hct MCV MCH MCHC RDW Plt Count Sodium 146 H Potassium 4.2 Chloride 103.6 Carbon Dioxide 27 Anion Gap 20 BUN 48 H Creatinine 1.7 H Estimated GFR 30 BUN/Creatinine Ratio 28 Glucose 89 POC Glucose 102 Calcium 8.0 L - Imaging CT Scan: report reviewed Assessment and Plan 1. Worsening anemia 2. PVD/Gangrene of extremities 3. CAD/cardiomyopathy 4. h/o polysubstance abuse 5. Kidney disease -pt with slow worsening of anemia since admission. however, no signs of overt gi bleeding (no recent bm's). tolerating po. suspect multifactorial etiology 2 /2 anemia of chronic disease (renal insufficiency, sepsis, etc). may have contributing gi source as well. given other acute medical issues, would hold off on endoscopic work-up unless there are signs of overt gi bleeding. discussed with pt who is in agreement with plan. -transfusions prn per primary team -anti-acid daily for ppx
--- NOTE | 2018-02-09 15:05 | Progress Note ---
Assessment and Plan Assessment and plan: Patient is a 63-year-old woman with a history of coronary artery disease status post coronary artery disease status post stent, permanent pacemaker, hypertension and polysubstance abuse including methamphetamine and cocaine, who presented to the emergency department on 01/17/2018 after being found unresponsive at home. She was intubated and hypotensive requiring vasopressor admission to the ICU. She was extubated 02/05/2018 and transferred out of the icu * 01/20/18 Renal Ultrasound Bilateral IMPRESSION: Unremarkable renal ultrasound. A cystic mass is identified in the superior pelvis just above the uterine fundus , please see above. This cystic mass would likely best be evaluated with CT with IV and oral contrast if needed. I am assuming this patient is postmenopausal, the endometrium measures 13 mm. Consider further evaluation with pelvic ultrasound. * 01/21/18 Pelvic ultrasound IMPRESSION: Very limited evaluation of the uterus. Possible endometrial thickening. There are either large cysts in the right pelvis versus focal fluid collections. Consider further evaluation with CT with IV and oral contrast. * 01/25/18 CT abd/pelvis wo Impression: Faint linear lucencies within the spleen may be artifactual or related to ischemia/trauma. Further evaluation with contrast study advised. Nonobstructing calculi left kidney. Large cyst with thin septa anterosuperior to the uterus. Solid appearing mass left of the uterus in the pelvis. Further correlation with sonography may be recommended. Diverticulosis sigmoid colon without evidence of diverticulitis. * 02/03/18 CT chest w/ contrast IMPRESSION: The left chest tube terminates in the anterior left pleural space adjacent to lingula. There is decreased left lower lobe atelectasis although a cavitating lesion in the left lower lobe is now visualized most consistent with a pneumatocele. Bilateral pleural effusions as described. 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 speech eval pending, remove ngt if she passes swallow evaluation 02/07/18: Ordered PT/OT, still with Chest tube, pulmonology is managing. Disposition: Placement/SNF will be difficult because she is unfunded per case management. Possibly home with daughter once chest tube removed. 02/08/18: spoke with Pulmonology regarding chest tube, Dr. Allan will follow up. 02/09/18: Still with chest tube without drainage, pulmonology to follow up. h/h steady declining, so i consulted GI. History Interval history: Patient was seen and examined. Follow-up on current diagnosis of shortness of breath which has improved. Overnight uneventful. Patient denies any chest pain , nausea/vomiting or severe headaches. Imaging, nursing note, chart, labs and old chart reviewed. Discussed with patient. Hospitalist Physical - Physical exam Narrative exam: GEN: ill appearing/deconditioned, nad, BMI 35.3 NAD, arousable ORIENTATED HEENT: NCAT, EOMI, PERRL, OP Clear, ngt removed NECK: supple, no adenopathy, no thyromegaly, no JVD CVS/HEART: RRR, NORMAL S1S2, pulses present bilaterally CHEST/LUNGS: Diminished breath sounds bilaterally, Symmetrical chest expansion, adequate air entry bilaterally, chest tube in place on left GI/Abdomen: soft, NTND, good bowel sounds, no guarding or rebound /Bladder: no suprapubic tenderness, no CVA or paraspinal tenderness EXT/Skin: necrotic limbs x 4 MSK: FROM x 4 Neuro: CN 2-12 grossly intact, no new focal deficits Psych: calm - Constitutional Vitals: Temp Pulse Resp BP Pulse Ox 98.3 F 87 18 144/67 95 02/09/18 14:31 02/09/18 14:31 02/09/18 14:31 02/09/18 14:31 02/09/18 14:31 General appearance: Present: no acute distress Results - Labs CBC & Chem 7: 02/09/18 05:31 02/09/18 05:31 Labs: Laboratory Last Values WBC 3.7 K/mm3 (4.5-11.0) L 02/09/18 05:31 RBC 2.38 M/mm3 (3.65-5.03) L 02/09/18 05:31 Hgb 6.8 gm/dl (10.1-14.3) L 02/09/18 05:31 Hct 20.3 % (30.3-42.9) L 02/09/18 05:31 MCV 85 fl (79-97) 02/09/18 05:31 MCH 29 pg (28-32) 02/09/18 05:31 MCHC 34 % (30-34) 02/09/18 05:31 RDW 14.6 % (13.2-15.2) 02/09/18 05:31 Plt Count 173 K/mm3 (140-440) 02/09/18 05:31 Lymph % (Auto) 11.2 % (13.4-35.0) L 02/06/18 07:52 Price % (Auto) 8.5 % (0.0-7.3) H 02/06/18 07:52 Eos % (Auto) 2.7 % (0.0-4.3) 02/06/18 07:52 Baso % (Auto) 0.7 % (0.0-1.8) 02/06/18 07:52 Lymph # 0.6 K/mm3 (1.2-5.4) L 02/06/18 07:52 Price # 0.5 K/mm3 (0.0-0.8) 02/06/18 07:52 Eos # 0.2 K/mm3 (0.0-0.4) 02/06/18 07:52 Baso # 0.0 K/mm3 (0.0-0.1) 02/06/18 07:52 Add Manual Diff Complete 01/30/18 Unknown Total Counted 100 01/30/18 Unknown Seg Neutrophils % 76.9 % (40.0-70.0) H 02/06/18 07:52 Seg Neuts % (Manual) 95.0 % (40.0-70.0) H 01/30/18 Unknown Band Neutrophils % 2.0 % 01/30/18 Unknown Lymphocytes % (Manual) 1.0 % (13.4-35.0) L 01/30/18 Unknown Reactive Lymphs % (Man) 0 % 01/30/18 Unknown Monocytes % (Manual) 2.0 % (0.0-7.3) 01/30/18 Unknown Eosinophils % (Manual) 0 % (0.0-4.3) 01/30/18 Unknown Basophils % (Manual) 0 % (0.0-1.8) 01/30/18 Unknown Metamyelocytes % 0 % 01/30/18 Unknown Myelocytes % 0 % 01/30/18 Unknown Promyelocytes % 0 % 01/30/18 Unknown Blast Cells % 0 % 01/30/18 Unknown Nucleated RBC % Not Reportable 01/30/18 Unknown Seg Neutrophils # 4.3 K/mm3 (1.8-7.7) 02/06/18 07:52 Seg Neutrophils # Man 12.2 K/mm3 (1.8-7.7) H 01/30/18 Unknown Band Neutrophils # 0.3 K/mm3 01/30/18 Unknown Lymphocytes # (Manual) 0.1 K/mm3 (1.2-5.4) L 01/30/18 Unknown Abs React Lymphs (Man) 0.0 K/mm3 01/30/18 Unknown Monocytes # (Manual) 0.3 K/mm3 (0.0-0.8) 01/30/18 Unknown Eosinophils # (Manual) 0.0 K/mm3 (0.0-0.4) 01/30/18 Unknown Basophils # (Manual) 0.0 K/mm3 (0.0-0.1) 01/30/18 Unknown Metamyelocytes # 0.0 K/mm3 01/30/18 Unknown Myelocytes # 0.0 K/mm3 01/30/18 Unknown Promyelocytes # 0.0 K/mm3 01/30/18 Unknown Blast Cells # 0.0 K/mm3 01/30/18 Unknown WBC Morphology Not Reportable 01/30/18 Unknown Hypersegmented Neuts Not Reportable 01/30/18 Unknown Hyposegmented Neuts Not Reportable 01/30/18 Unknown Hypogranular Neuts Not Reportable 01/30/18 Unknown Smudge Cells Not Reportable 01/30/18 Unknown Toxic Granulation Not Reportable 01/30/18 Unknown Toxic Vacuolation Not Reportable 01/30/18 Unknown Dohle Bodies Not Reportable 01/30/18 Unknown Pelger-Huet Anomaly Not Reportable 01/30/18 Unknown Opal Rods Not Reportable 01/30/18 Unknown Platelet Estimate Consistent w auto 01/30/18 Unknown Clumped Platelets Not Reportable 01/30/18 Unknown Plt Clumps, EDTA Not Reportable 01/30/18 Unknown Large Platelets Not Reportable 01/30/18 Unknown Giant Platelets Not Reportable 01/30/18 Unknown Platelet Satelliting Not Reportable 01/30/18 Unknown Plt Morphology Comment Not Reportable 01/30/18 Unknown RBC Morphology Not Reportable 01/30/18 Unknown Dimorphic RBCs Not Reportable 01/30/18 Unknown Polychromasia Not Reportable 01/30/18 Unknown Hypochromasia 1+ 01/30/18 Unknown Poikilocytosis Not Reportable 01/30/18 Unknown Anisocytosis Not Reportable 01/30/18 Unknown Microcytosis Few 01/30/18 Unknown Macrocytosis Not Reportable 01/30/18 Unknown Spherocytes Not Reportable 01/30/18 Unknown Pappenheimer Bodies Not Reportable 01/30/18 Unknown Sickle Cells Not Reportable 01/30/18 Unknown Target Cells Not Reportable 01/30/18 Unknown Tear Drop Cells Not Reportable 01/30/18 Unknown Ovalocytes Not Reportable 01/30/18 Unknown Stomatocytes Few 01/30/18 Unknown Helmet Cells Not Reportable 01/30/18 Unknown Frank[place] Bodies Not Reportable 01/30/18 Unknown Charlo Rings Not Reportable 01/30/18 Unknown [place] Cells Not Reportable 01/30/18 Unknown Bite Cells Not Reportable 01/30/18 Unknown Crenated Cell Not Reportable 01/30/18 Unknown Elliptocytes Not Reportable 01/30/18 Unknown Acanthocytes (Spur) Not Reportable 01/30/18 Unknown Rouleaux Not Reportable 01/30/18 Unknown Hemoglobin C Crystals Not Reportable 01/30/18 Unknown Schistocytes Not Reportable 01/30/18 Unknown Malaria parasites Not Reportable 01/30/18 Unknown Brock Bodies Not Reportable 01/30/18 Unknown Hem Pathologist Commnt No 01/30/18 Unknown PT 17.5 Sec. (12.2-14.9) H 01/20/18 07:00 INR 1.35 (0.87-1.13) H 01/20/18 07:00 Heparin Anti-Xa, Unfract Negative (Negative) 01/20/18 11:03 POC ABG pH 7.441 (7.35-7.45) 02/04/18 15:05 POC ABG pCO2 43.6 (35-45) 02/04/18 15:05 POC ABG pO2 109 (80-105) H 02/04/18 15:05 POC ABG HCO3 29.7 02/04/18 15:05 POC ABG Total CO2 31 02/04/18 15:05 POC ABG O2 Sat 98 02/04/18 15:05 POC ABG Base Excess 6 02/04/18 15:05 VBG pH 7.273 (7.320-7.420) L 01/17/18 16:54 FiO2 35 % 02/04/18 15:05 Sodium 146 mmol/L (137-145) H 02/09/18 05:31 Potassium 4.2 mmol/L (3.6-5.0) 02/09/18 05:31 Chloride 103.6 mmol/L (98-107) 02/09/18 05:31 Carbon Dioxide 27 mmol/L (22-30) 02/09/18 05:31 Anion Gap 20 mmol/L 02/09/18 05:31 BUN 48 mg/dL (7-17) H 02/09/18 05:31 Creatinine 1.7 mg/dL (0.7-1.2) H 02/09/18 05:31 Estimated GFR 30 ml/min 02/09/18 05:31 BUN/Creatinine Ratio 28 % 02/09/18 05:31 Glucose 89 mg/dL (65-100) 02/09/18 05:31 POC Glucose 102 (70-105) 02/09/18 11:49 Hemoglobin A1c 9.0 % (4-6) H 01/17/18 22:36 Lactic Acid 1.40 mmol/L (0.7-2.0) 01/24/18 15:08 Calcium 8.0 mg/dL (8.4-10.2) L 02/09/18 05:31 Ionized Calcium 3.9 mg/dL (4.8-5.6) L 01/29/18 06:00 Magnesium 1.80 mg/dL (1.7-2.3) 01/29/18 06:00 Total Bilirubin 0.50 mg/dL (0.1-1.2) 01/29/18 06:00 AST 21 units/L (5-40) 01/29/18 06:00 ALT 53 units/L (7-56) 01/29/18 06:00 Alkaline Phosphatase 88 units/L (35-129) 01/29/18 06:00 C-Reactive Protein 3.30 mg/dL (0.00-1.30) H 01/24/18 15:08 Total Protein 4.5 g/dL (6.3-8.2) L 01/29/18 06:00 Albumin 2.0 g/dL (3.9-5) L 01/29/18 06:00 Albumin/Globulin Ratio 0.8 % 01/29/18 06:00 Serotonin Release Assay See scanned report 01/20/18 11:03 Random Vancomycin 19.8 ug/mL (0-40.0) 01/27/18 05:20 ALISA Screen Negative (Negative) 01/20/18 Unknown Heparin-induced Plt Ab Negative (Negative) 01/20/18 11:03 UF Heparin High Dose 0 % Release 01/20/18 11:03 NEGRITA UFH Low Dose 0.1 0 % Release 01/20/18 11:03 NEGRITA UFH Low Dose 0.5 0 % Release 01/20/18 11:03 Complement C3 47 mg/dL (83-193) L 01/20/18 Unknown Complement C4 9 mg/dL (15-57) L 01/20/18 Unknown Hepatitis A IgM Ab Non-reactive (NonReactive) 01/20/18 07:00 Hep Bs Antigen Non-reactive (Negative) 01/20/18 07:00 Hep B Core IgM Ab Non-reactive (NonReactive) 01/20/18 07:00 Hepatitis C Antibody Non-reactive (NonReactive) 01/20/18 07:00 HIV 1&2 Antibody Rapid Non react (Non React) 01/20/18 Unknown HIV P24 Antigen Non react (Non React) 01/20/18 Unknown
[2018-02-09] MEDS: APRESOLINE IV PRN (23:08)
[2018-02-10] MEDS: PULMICORT IH SCH ×2 (08:26→20:39)
[2018-02-10] MEDS: BROVANA NEBU IH SCH ×2 (08:26→20:38)
[2018-02-10] MEDS: PEPCID PO SCH (09:45)
--- NOTE | 2018-02-10 11:43 | Gastroenterology Progress Note ---
<CANDY LADD - Last Filed: 02/10/18 11:44> Assessment and Plan 1. Worsening anemia 2. PVD/Gangrene of extremities 3. CAD/cardiomyopathy 4. h/o polysubstance abuse 5. Kidney disease -pt with slow worsening of anemia since admission -no clinical evidence of active GI bleeding -etiology- suspect multifactorial 2/2 anemia of chronic disease (renal insufficency, sepsis, etc) -given acute medical issues recommend holding off on endoscopic evaluation at this time unless overt bleeding develops (plan discussed with pt and she is in agreement) -continue to monitor H/H and transfuse as needed -continue PPI and supportive care -no further GI recommendations at this time, will sign off, please call if needed Subjective Date of service: 02/10/18 Principal diagnosis: anemia Interval history: No active signs of bleeding overnight or this am. Objective - Constitutional Vitals: Temp Pulse Resp BP Pulse Ox 98.4 F 92 H 18 135/68 98 02/10/18 08:40 02/10/18 08:45 02/10/18 08:45 02/10/18 08:40 02/10/18 08:40 General appearance: no acute distress - Respiratory Respiratory: bilateral: CTA - Cardiovascular Rhythm: regular Heart Sounds: Present: S1 & S2 - Extremities Extremity abnormal: other (+gangrene on BLE and digits of fingers) - Gastrointestinal General gastrointestinal: Present: soft, non-tender, non-distended, normal bowel sounds - Neurologic Neurological: alert and oriented x3 - Labs CBC & Chem 7: 02/09/18 05:31 02/09/18 05:31 Labs: Laboratory Results - last 24 hr 02/09/18 02/09/18 02/10/18 11:49 17:17 00:16 POC Glucose 102 121 H 162 H 02/10/18 05:33 POC Glucose 98 <KORINA BELTRE - Last Filed: 02/10/18 21:33> Assessment and Plan pt seen and examined. agree with note by candy ladd. Objective - Constitutional Vitals: Temp Pulse Resp BP Pulse Ox 98.3 F 101 H 18 153/79 95 02/10/18 20:00 02/10/18 20:56 02/10/18 20:56 02/10/18 20:00 02/10/18 20:40 - Labs CBC & Chem 7: 02/09/18 05:31 02/09/18 05:31 Labs: Laboratory Results - last 24 hr 02/10/18 02/10/18 02/10/18 00:16 05:33 11:58 POC Glucose 162 H 98 151 H Blood Type Antibody Screen Crossmatch 02/10/18 02/10/18 17:04 17:58 POC Glucose 131 H Blood Type B NEGATIVE Antibody Screen Negative Crossmatch See Detail
[2018-02-10] MEDS: DILAUDID IV PRN ×2 (13:27→22:14)
--- NOTE | 2018-02-10 13:55 | Progress Note ---
Assessment and Plan Impression: * Acute kidney injury secondary to ATN - on hemodialysis * Acute respiratory failure - extubated * Spontaneous left pneumothorax s/p chest tube insertion * Sepsis * Pleural effusion * Cardiomyopathy * Anemia * Polysubstance abuse * Type II DM * Ischemic, necrotic digits of hands/feet * Pelvic mass * Anemia Plan: * Continue to hold HD * Will arrange for removal of vascath tomorrow * Transfuse pRBC prn; Hb 6.8 yesterday - but does not appear to have received blood, will order 1 unit * Consultants' recommendations noted * Abx per ID * Strict i/os * Avoid nephrotoxins * Daily lytes Subjective Date of service: 02/10/18 Principal diagnosis: anemia Interval history: Patient seen resting comfortably. Objective - Vital Signs Vital signs: Vital Signs - 12hr 02/10/18 02/10/18 02/10/18 04:25 08:13 08:26 Temperature 98.8 F Pulse Rate 102 H Pulse Rate [ 91 H Bilateral Throughout] Pulse Rate [ 94 H From Monitor] Respiratory 20 Rate Respiratory 18 Rate [Bilateral Throughout] Blood Pressure 120/56 [Left] O2 Sat by Pulse 97 Oximetry 02/10/18 02/10/18 02/10/18 08:28 08:40 08:45 Temperature 98.4 F Pulse Rate 89 Pulse Rate [ 92 H Bilateral Throughout] Pulse Rate [ From Monitor] Respiratory 18 Rate Respiratory 18 Rate [Bilateral Throughout] Blood Pressure 135/68 [Left] O2 Sat by Pulse 100 98 Oximetry - General Appearance General appearance: well-developed, well-nourished EENT: ATNC Respiratory: Present: Decreased Breath Sounds Cardiology: regular, S1S2 Gastrointestinal: normal, no tenderness, no distended Integumentary: other (ischemic/necrotic changes to digits of hands/feet) Neurologic: no focal deficit Musculoskeletal: other (trace edema) Psychiatric: cooperative - Lab 02/09/18 05:31 02/09/18 05:31 Most recent lab results Calcium 8.0 mg/dL (8.4-10.2) L 02/09/18 05:31 Magnesium 1.80 mg/dL (1.7-2.3) 01/29/18 06:00
--- NOTE | 2018-02-10 16:02 | Progress Note ---
Assessment and Plan Assessment and plan: Patient is a 63-year-old woman with a history of coronary artery disease status post coronary artery disease status post stent, permanent pacemaker, hypertension and polysubstance abuse including methamphetamine and cocaine, who presented to the emergency department on 01/17/2018 after being found unresponsive at home. She was intubated and hypotensive requiring vasopressor admission to the ICU. She was extubated 02/05/2018 and transferred out of the icu * 01/20/18 Renal Ultrasound Bilateral IMPRESSION: Unremarkable renal ultrasound. A cystic mass is identified in the superior pelvis just above the uterine fundus , please see above. This cystic mass would likely best be evaluated with CT with IV and oral contrast if needed. I am assuming this patient is postmenopausal, the endometrium measures 13 mm. Consider further evaluation with pelvic ultrasound. * 01/21/18 Pelvic ultrasound IMPRESSION: Very limited evaluation of the uterus. Possible endometrial thickening. There are either large cysts in the right pelvis versus focal fluid collections. Consider further evaluation with CT with IV and oral contrast. * 01/25/18 CT abd/pelvis wo Impression: Faint linear lucencies within the spleen may be artifactual or related to ischemia/trauma. Further evaluation with contrast study advised. Nonobstructing calculi left kidney. Large cyst with thin septa anterosuperior to the uterus. Solid appearing mass left of the uterus in the pelvis. Further correlation with sonography may be recommended. Diverticulosis sigmoid colon without evidence of diverticulitis. * 02/03/18 CT chest w/ contrast IMPRESSION: The left chest tube terminates in the anterior left pleural space adjacent to lingula. There is decreased left lower lobe atelectasis although a cavitating lesion in the left lower lobe is now visualized most consistent with a pneumatocele. Bilateral pleural effusions as described. 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 speech eval pending, remove ngt if she passes swallow evaluation 02/07/18: Ordered PT/OT, still with Chest tube, pulmonology is managing. 02/08/18: spoke with Pulmonology regarding chest tube, Dr. Allan will follow up. 02/09/18: Still with chest tube without drainage, pulmonology to follow up. h/h steady declining, so i consulted GI. 02/10/18: still with chest tube. Gi is following the anemia, repeat level in am. Disposition: Placement/SNF will be difficult because she is unfunded per case management. Possibly home with daughter once chest tube removed. History Interval history: Patient was seen and examined. Follow-up on current diagnosis of shortness of breath which has improved. Overnight uneventful. Patient denies any chest pain , nausea/vomiting or severe headaches. Imaging, nursing note, chart, labs and old chart reviewed. Discussed with patient. Hospitalist Physical - Physical exam Narrative exam: GEN: ill appearing/deconditioned, nad, BMI 35.3 NAD, arousable ORIENTATED HEENT: NCAT, EOMI, PERRL, OP Clear, ngt removed NECK: supple, no adenopathy, no thyromegaly, no JVD CVS/HEART: RRR, NORMAL S1S2, pulses present bilaterally CHEST/LUNGS: Diminished breath sounds bilaterally, Symmetrical chest expansion, adequate air entry bilaterally, chest tube in place on left GI/Abdomen: soft, NTND, good bowel sounds, no guarding or rebound /Bladder: no suprapubic tenderness, no CVA or paraspinal tenderness EXT/Skin: necrotic limbs x 4 MSK: FROM x 4 Neuro: CN 2-12 grossly intact, no new focal deficits Psych: calm - Constitutional Vitals: Temp Pulse Resp BP Pulse Ox 98.4 F 92 H 18 135/68 98 02/10/18 08:40 02/10/18 08:45 02/10/18 08:45 02/10/18 08:40 02/10/18 08:40 General appearance: Present: no acute distress Results - Labs CBC & Chem 7: 02/09/18 05:31 02/09/18 05:31 Labs: Laboratory Last Values WBC 3.7 K/mm3 (4.5-11.0) L 02/09/18 05:31 RBC 2.38 M/mm3 (3.65-5.03) L 02/09/18 05:31 Hgb 6.8 gm/dl (10.1-14.3) L 02/09/18 05:31 Hct 20.3 % (30.3-42.9) L 02/09/18 05:31 MCV 85 fl (79-97) 02/09/18 05:31 MCH 29 pg (28-32) 02/09/18 05:31 MCHC 34 % (30-34) 02/09/18 05:31 RDW 14.6 % (13.2-15.2) 02/09/18 05:31 Plt Count 173 K/mm3 (140-440) 02/09/18 05:31 Lymph % (Auto) 11.2 % (13.4-35.0) L 02/06/18 07:52 [place] % (Auto) 8.5 % (0.0-7.3) H 02/06/18 07:52 Eos % (Auto) 2.7 % (0.0-4.3) 02/06/18 07:52 Baso % (Auto) 0.7 % (0.0-1.8) 02/06/18 07:52 Lymph # 0.6 K/mm3 (1.2-5.4) L 02/06/18 07:52 [place] # 0.5 K/mm3 (0.0-0.8) 02/06/18 07:52 Eos # 0.2 K/mm3 (0.0-0.4) 02/06/18 07:52 Baso # 0.0 K/mm3 (0.0-0.1) 02/06/18 07:52 Add Manual Diff Complete 01/30/18 Unknown Total Counted 100 01/30/18 Unknown Seg Neutrophils % 76.9 % (40.0-70.0) H 02/06/18 07:52 Seg Neuts % (Manual) 95.0 % (40.0-70.0) H 01/30/18 Unknown Band Neutrophils % 2.0 % 01/30/18 Unknown Lymphocytes % (Manual) 1.0 % (13.4-35.0) L 01/30/18 Unknown Reactive Lymphs % (Man) 0 % 01/30/18 Unknown Monocytes % (Manual) 2.0 % (0.0-7.3) 01/30/18 Unknown Eosinophils % (Manual) 0 % (0.0-4.3) 01/30/18 Unknown Basophils % (Manual) 0 % (0.0-1.8) 01/30/18 Unknown Metamyelocytes % 0 % 01/30/18 Unknown Myelocytes % 0 % 01/30/18 Unknown Promyelocytes % 0 % 01/30/18 Unknown Blast Cells % 0 % 01/30/18 Unknown Nucleated RBC % Not Reportable 01/30/18 Unknown Seg Neutrophils # 4.3 K/mm3 (1.8-7.7) 02/06/18 07:52 Seg Neutrophils # Man 12.2 K/mm3 (1.8-7.7) H 01/30/18 Unknown Band Neutrophils # 0.3 K/mm3 01/30/18 Unknown Lymphocytes # (Manual) 0.1 K/mm3 (1.2-5.4) L 01/30/18 Unknown Abs React Lymphs (Man) 0.0 K/mm3 01/30/18 Unknown Monocytes # (Manual) 0.3 K/mm3 (0.0-0.8) 01/30/18 Unknown Eosinophils # (Manual) 0.0 K/mm3 (0.0-0.4) 01/30/18 Unknown Basophils # (Manual) 0.0 K/mm3 (0.0-0.1) 01/30/18 Unknown Metamyelocytes # 0.0 K/mm3 01/30/18 Unknown Myelocytes # 0.0 K/mm3 01/30/18 Unknown Promyelocytes # 0.0 K/mm3 01/30/18 Unknown Blast Cells # 0.0 K/mm3 01/30/18 Unknown WBC Morphology Not Reportable 01/30/18 Unknown Hypersegmented Neuts Not Reportable 01/30/18 Unknown Hyposegmented Neuts Not Reportable 01/30/18 Unknown Hypogranular Neuts Not Reportable 01/30/18 Unknown Smudge Cells Not Reportable 01/30/18 Unknown Toxic Granulation Not Reportable 01/30/18 Unknown Toxic Vacuolation Not Reportable 01/30/18 Unknown Dohle Bodies Not Reportable 01/30/18 Unknown Pelger-Huet Anomaly Not Reportable 01/30/18 Unknown Opal Rods Not Reportable 01/30/18 Unknown Platelet Estimate Consistent w auto 01/30/18 Unknown Clumped Platelets Not Reportable 01/30/18 Unknown Plt Clumps, EDTA Not Reportable 01/30/18 Unknown Large Platelets Not Reportable 01/30/18 Unknown Giant Platelets Not Reportable 01/30/18 Unknown Platelet Satelliting Not Reportable 01/30/18 Unknown Plt Morphology Comment Not Reportable 01/30/18 Unknown RBC Morphology Not Reportable 01/30/18 Unknown Dimorphic RBCs Not Reportable 01/30/18 Unknown Polychromasia Not Reportable 01/30/18 Unknown Hypochromasia 1+ 01/30/18 Unknown Poikilocytosis Not Reportable 01/30/18 Unknown Anisocytosis Not Reportable 01/30/18 Unknown Microcytosis Few 01/30/18 Unknown Macrocytosis Not Reportable 01/30/18 Unknown Spherocytes Not Reportable 01/30/18 Unknown Pappenheimer Bodies Not Reportable 01/30/18 Unknown Sickle Cells Not Reportable 01/30/18 Unknown Target Cells Not Reportable 01/30/18 Unknown Tear Drop Cells Not Reportable 01/30/18 Unknown Ovalocytes Not Reportable 01/30/18 Unknown Stomatocytes Few 01/30/18 Unknown Helmet Cells Not Reportable 01/30/18 Unknown [place] Bodies Not Reportable 01/30/18 Unknown [place] Rings Not Reportable 01/30/18 Unknown Jaclyn Cells Not Reportable 01/30/18 Unknown Bite Cells Not Reportable 01/30/18 Unknown Crenated Cell Not Reportable 01/30/18 Unknown Elliptocytes Not Reportable 01/30/18 Unknown Acanthocytes (Spur) Not Reportable 01/30/18 Unknown Rouleaux Not Reportable 01/30/18 Unknown Hemoglobin C Crystals Not Reportable 01/30/18 Unknown Schistocytes Not Reportable 01/30/18 Unknown Malaria parasites Not Reportable 01/30/18 Unknown Brock Bodies Not Reportable 01/30/18 Unknown Hem Pathologist Commnt No 01/30/18 Unknown PT 17.5 Sec. (12.2-14.9) H 01/20/18 07:00 INR 1.35 (0.87-1.13) H 01/20/18 07:00 Heparin Anti-Xa, Unfract Negative (Negative) 01/20/18 11:03 POC ABG pH 7.441 (7.35-7.45) 02/04/18 15:05 POC ABG pCO2 43.6 (35-45) 02/04/18 15:05 POC ABG pO2 109 (80-105) H 02/04/18 15:05 POC ABG HCO3 29.7 02/04/18 15:05 POC ABG Total CO2 31 02/04/18 15:05 POC ABG O2 Sat 98 02/04/18 15:05 POC ABG Base Excess 6 02/04/18 15:05 VBG pH 7.273 (7.320-7.420) L 01/17/18 16:54 FiO2 35 % 02/04/18 15:05 Sodium 146 mmol/L (137-145) H 02/09/18 05:31 Potassium 4.2 mmol/L (3.6-5.0) 02/09/18 05:31 Chloride 103.6 mmol/L (98-107) 02/09/18 05:31 Carbon Dioxide 27 mmol/L (22-30) 02/09/18 05:31 Anion Gap 20 mmol/L 02/09/18 05:31 BUN 48 mg/dL (7-17) H 02/09/18 05:31 Creatinine 1.7 mg/dL (0.7-1.2) H 02/09/18 05:31 Estimated GFR 30 ml/min 02/09/18 05:31 BUN/Creatinine Ratio 28 % 02/09/18 05:31 Glucose 89 mg/dL (65-100) 02/09/18 05:31 POC Glucose 151 (70-105) H 02/10/18 11:58 Hemoglobin A1c 9.0 % (4-6) H 01/17/18 22:36 Lactic Acid 1.40 mmol/L (0.7-2.0) 01/24/18 15:08 Calcium 8.0 mg/dL (8.4-10.2) L 02/09/18 05:31 Ionized Calcium 3.9 mg/dL (4.8-5.6) L 01/29/18 06:00 Magnesium 1.80 mg/dL (1.7-2.3) 01/29/18 06:00 Total Bilirubin 0.50 mg/dL (0.1-1.2) 01/29/18 06:00 AST 21 units/L (5-40) 01/29/18 06:00 ALT 53 units/L (7-56) 01/29/18 06:00 Alkaline Phosphatase 88 units/L (35-129) 01/29/18 06:00 C-Reactive Protein 3.30 mg/dL (0.00-1.30) H 01/24/18 15:08 Total Protein 4.5 g/dL (6.3-8.2) L 01/29/18 06:00 Albumin 2.0 g/dL (3.9-5) L 01/29/18 06:00 Albumin/Globulin Ratio 0.8 % 01/29/18 06:00 Serotonin Release Assay See scanned report 01/20/18 11:03 Random Vancomycin 19.8 ug/mL (0-40.0) 01/27/18 05:20 ALISA Screen Negative (Negative) 01/20/18 Unknown Heparin-induced Plt Ab Negative (Negative) 01/20/18 11:03 UF Heparin High Dose 0 % Release 01/20/18 11:03 NEGRITA UFH Low Dose 0.1 0 % Release 01/20/18 11:03 NEGRITA UFH Low Dose 0.5 0 % Release 01/20/18 11:03 Complement C3 47 mg/dL (83-193) L 01/20/18 Unknown Complement C4 9 mg/dL (15-57) L 01/20/18 Unknown Hepatitis A IgM Ab Non-reactive (NonReactive) 01/20/18 07:00 Hep Bs Antigen Non-reactive (Negative) 01/20/18 07:00 Hep B Core IgM Ab Non-reactive (NonReactive) 01/20/18 07:00 Hepatitis C Antibody Non-reactive (NonReactive) 01/20/18 07:00 HIV 1&2 Antibody Rapid Non react (Non React) 01/20/18 Unknown HIV P24 Antigen Non react (Non React) 01/20/18 Unknown
[2018-02-10] MEDS ORDERED: NACL 0.9% 500 ML 500 ML IV SCH (16:32)
[2018-02-11] MEDS ORDERED: NACL 0.9% 500 ML 500 ML IV SCH (02:30)
[2018-02-11 08:10] LABS: Hematocrit 24.6 % (30.3-42.9); Hemoglobin 7.9 gm/dl (10.1-14.3); Mean Corpuscular HGB Conc 32 % (30-34); Mean Corpuscular Hemoglobin 28 pg (28-32); Mean Corpuscular Volume 87 fl (79-97); Platelet Count 262 K/mm3 (140-440); Red Blood Count 2.84 M/mm3 (3.65-5.03); Red Cell Distribution Width 14.5 % (13.2-15.2)
[2018-02-11] MEDS: PEPCID PO SCH (09:09)
[2018-02-11] MEDS: DILAUDID IV PRN ×3 (09:23→22:59)
[2018-02-11 09:39] LABS: Calcium 8.4 mg/dL (8.4-10.2)
[2018-02-11] MEDS: BROVANA NEBU IH SCH ×2 (09:42→19:47)
[2018-02-11] MEDS: PULMICORT IH SCH ×2 (09:43→19:47)
--- NOTE | 2018-02-11 09:47 | Progress Note ---
Assessment and Plan Impression: * Acute kidney injury secondary to ATN - on hemodialysis * Acute respiratory failure - extubated * Spontaneous left pneumothorax s/p chest tube insertion * Sepsis * Pleural effusion * Cardiomyopathy * Anemia * Polysubstance abuse * Type II DM * Ischemic, necrotic digits of hands/feet * Pelvic mass * Anemia Plan: * Renal function is improving . Continue to hold HD * Awaiting vascath removal * Patient is hypernatremic and her urine output is lower. Shall hydrate her gently * Transfuse pRBC prn; * Consultants' recommendations noted * Abx per ID * Strict i/os * Avoid nephrotoxins * Daily lytes Subjective Date of service: 02/11/18 Principal diagnosis: anemia Interval history: Patient is comfortable. Denies any shortness of breath. No nausea or vomiting. States that her urine output is not too much as she is not drinking enough. Objective - Vital Signs Vital signs: Vital Signs - 12hr 02/10/18 02/11/18 02/11/18 22:00 00:00 03:06 Temperature 98.4 F 99.1 F Pulse Rate 90 102 H 91 H Respiratory 18 18 Rate Blood Pressure 120/75 134/61 [Left] O2 Sat by Pulse 98 96 Oximetry 02/11/18 02/11/18 02/11/18 03:20 03:50 04:50 Temperature 98.7 F 98.6 F 98.3 F Pulse Rate 98 H 91 H 89 Respiratory 18 18 18 Rate Blood Pressure 150/76 148/76 155/73 [Left] O2 Sat by Pulse 96 95 100 Oximetry 02/11/18 02/11/18 05:34 08:41 Temperature 98.3 F 98.2 F Pulse Rate 87 79 Respiratory 18 18 Rate Blood Pressure 157/75 165/89 [Left] O2 Sat by Pulse 97 97 Oximetry - General Appearance General appearance: well-developed, well-nourished, appears stated age EENT: PERRL, mucous membranes moist Neck: no JVD, no thyromegaly, no carotid bruit, supple, other (left IJ vascath in place ) Respiratory: Present: [place], Other (Left chest tube in place ) Cardiology: regular, normal heart rate Gastrointestinal: normal, normoactive bowel sounds Integumentary: other (gangrene of all her fingers and toes ) - Lab 02/11/18 07:40 02/11/18 07:40 Most recent lab results Calcium 8.4 mg/dL (8.4-10.2) 02/11/18 07:40 Magnesium 1.80 mg/dL (1.7-2.3) 01/29/18 06:00
[2018-02-11] MEDS: NACL 0.45% 1000 ML 1,000 ML IV SCH (11:07)
--- NOTE | 2018-02-11 11:54 | Progress Note ---
Assessment and Plan Assessment and plan: -Acute combined respiratory failure on ventilator greater than 96 hours status post extubation: still with oxygen via nasal cannula -Septic shock, resolved, s/p vasopressors -Acute on chronic combined heart failure improved, Cardiology has signed off -Large left pleural effusion status post left chest tube: Pulmonology is following -Acute renal failure due to ATN present on admission, improved. Patient previously on hemodialysis which now is on hold. -Acute toxic metabolic encephalopathy, POA. Resolved. 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 -Pelvic masses, ?incidental findings. [employer] follow-up. -DVT prophylaxis: sq heparin -Disposition. NHP History Interval history: 62-year-old admitted with hx of htn, polysubstance drug abuse per family, admitted after she was found unresponsive found in the bathroom of a friends home, noted with severe lactic acidosis, hypotensive on vasopressors, hypercapenic respiratory failure requiring intubation. Patient now extubated and has been transferred to the floor. Hospitalist Physical - Constitutional Vitals: Temp Pulse Resp BP Pulse Ox 98.2 F 87 18 165/89 96 02/11/18 08:41 02/11/18 10:00 02/11/18 09:44 02/11/18 08:41 02/11/18 09:47 General appearance: Present: no acute distress - EENT Eyes: Present: PERRL, EOM intact ENT: hearing intact, clear oral mucosa, dentition normal - Neck Neck: Present: supple, normal ROM - Respiratory Respiratory effort: normal Respiratory: bilateral: CTA - Cardiovascular Rhythm: regular Heart Sounds: Present: S1 & S2. Absent: gallop, rub - Extremities Extremities: no ischemia, No edema, Full ROM - Abdominal General gastrointestinal: soft, non-tender, non-distended, normal bowel sounds - Integumentary Integumentary: Present: clear, warm, dry - Neurologic Neurologic: CNII-XII intact, moves all extremities Results - Labs CBC & Chem 7: 02/11/18 07:40 02/11/18 07:40 Labs: Laboratory Last Values WBC 4.3 K/mm3 (4.5-11.0) L 02/11/18 07:40 RBC 2.84 M/mm3 (3.65-5.03) L 02/11/18 07:40 Hgb 7.9 gm/dl (10.1-14.3) L 02/11/18 07:40 Hct 24.6 % (30.3-42.9) L 02/11/18 07:40 MCV 87 fl (79-97) 02/11/18 07:40 MCH 28 pg (28-32) 02/11/18 07:40 MCHC 32 % (30-34) 02/11/18 07:40 RDW 14.5 % (13.2-15.2) 02/11/18 07:40 Plt Count 262 K/mm3 (140-440) 02/11/18 07:40 Lymph % (Auto) 11.2 % (13.4-35.0) L 02/06/18 07:52 [place] % (Auto) 8.5 % (0.0-7.3) H 02/06/18 07:52 Eos % (Auto) 2.7 % (0.0-4.3) 02/06/18 07:52 Baso % (Auto) 0.7 % (0.0-1.8) 02/06/18 07:52 Lymph # 0.6 K/mm3 (1.2-5.4) L 02/06/18 07:52 [place] # 0.5 K/mm3 (0.0-0.8) 02/06/18 07:52 Eos # 0.2 K/mm3 (0.0-0.4) 02/06/18 07:52 Baso # 0.0 K/mm3 (0.0-0.1) 02/06/18 07:52 Add Manual Diff Complete 01/30/18 Unknown Total Counted 100 01/30/18 Unknown Seg Neutrophils % 76.9 % (40.0-70.0) H 02/06/18 07:52 Seg Neuts % (Manual) 95.0 % (40.0-70.0) H 01/30/18 Unknown Band Neutrophils % 2.0 % 01/30/18 Unknown Lymphocytes % (Manual) 1.0 % (13.4-35.0) L 01/30/18 Unknown Reactive Lymphs % (Man) 0 % 01/30/18 Unknown Monocytes % (Manual) 2.0 % (0.0-7.3) 01/30/18 Unknown Eosinophils % (Manual) 0 % (0.0-4.3) 01/30/18 Unknown Basophils % (Manual) 0 % (0.0-1.8) 01/30/18 Unknown Metamyelocytes % 0 % 01/30/18 Unknown Myelocytes % 0 % 01/30/18 Unknown Promyelocytes % 0 % 01/30/18 Unknown Blast Cells % 0 % 01/30/18 Unknown Nucleated RBC % Not Reportable 01/30/18 Unknown Seg Neutrophils # 4.3 K/mm3 (1.8-7.7) 02/06/18 07:52 Seg Neutrophils # Man 12.2 K/mm3 (1.8-7.7) H 01/30/18 Unknown Band Neutrophils # 0.3 K/mm3 01/30/18 Unknown Lymphocytes # (Manual) 0.1 K/mm3 (1.2-5.4) L 01/30/18 Unknown Abs React Lymphs (Man) 0.0 K/mm3 01/30/18 Unknown Monocytes # (Manual) 0.3 K/mm3 (0.0-0.8) 01/30/18 Unknown Eosinophils # (Manual) 0.0 K/mm3 (0.0-0.4) 01/30/18 Unknown Basophils # (Manual) 0.0 K/mm3 (0.0-0.1) 01/30/18 Unknown Metamyelocytes # 0.0 K/mm3 01/30/18 Unknown Myelocytes # 0.0 K/mm3 01/30/18 Unknown Promyelocytes # 0.0 K/mm3 01/30/18 Unknown Blast Cells # 0.0 K/mm3 01/30/18 Unknown WBC Morphology Not Reportable 01/30/18 Unknown Hypersegmented Neuts Not Reportable 01/30/18 Unknown Hyposegmented Neuts Not Reportable 01/30/18 Unknown Hypogranular Neuts Not Reportable 01/30/18 Unknown Smudge Cells Not Reportable 01/30/18 Unknown Toxic Granulation Not Reportable 01/30/18 Unknown Toxic Vacuolation Not Reportable 01/30/18 Unknown Dohle Bodies Not Reportable 01/30/18 Unknown Pelger-Huet Anomaly Not Reportable 01/30/18 Unknown Opal Rods Not Reportable 01/30/18 Unknown Platelet Estimate Consistent w auto 01/30/18 Unknown Clumped Platelets Not Reportable 01/30/18 Unknown Plt Clumps, EDTA Not Reportable 01/30/18 Unknown Large Platelets Not Reportable 01/30/18 Unknown Giant Platelets Not Reportable 01/30/18 Unknown Platelet Satelliting Not Reportable 01/30/18 Unknown Plt Morphology Comment Not Reportable 01/30/18 Unknown RBC Morphology Not Reportable 01/30/18 Unknown Dimorphic RBCs Not Reportable 01/30/18 Unknown Polychromasia Not Reportable 01/30/18 Unknown Hypochromasia 1+ 01/30/18 Unknown Poikilocytosis Not Reportable 01/30/18 Unknown Anisocytosis Not Reportable 01/30/18 Unknown Microcytosis Few 01/30/18 Unknown Macrocytosis Not Reportable 01/30/18 Unknown Spherocytes Not Reportable 01/30/18 Unknown Pappenheimer Bodies Not Reportable 01/30/18 Unknown Sickle Cells Not Reportable 01/30/18 Unknown Target Cells Not Reportable 01/30/18 Unknown Tear Drop Cells Not Reportable 01/30/18 Unknown Ovalocytes Not Reportable 01/30/18 Unknown Stomatocytes Few 01/30/18 Unknown Helmet Cells Not Reportable 01/30/[address] [address] Bodies Not Reportable 01/30/18 Unknown [place] Rings Not Reportable 01/30/18 Unknown [place] Cells Not Reportable 01/30/18 Unknown Bite Cells Not Reportable 01/30/18 Unknown Crenated Cell Not Reportable 01/30/18 Unknown Elliptocytes Not Reportable 01/30/18 Unknown Acanthocytes (Spur) Not Reportable 01/30/18 Unknown Rouleaux Not Reportable 01/30/18 Unknown Hemoglobin C Crystals Not Reportable 01/30/18 Unknown Schistocytes Not Reportable 01/30/18 Unknown Malaria parasites Not Reportable 01/30/18 Unknown Brock Bodies Not Reportable 01/30/18 Unknown Hem Pathologist Commnt No 01/30/18 Unknown PT 17.5 Sec. (12.2-14.9) H 01/20/18 07:00 INR 1.35 (0.87-1.13) H 01/20/18 07:00 Heparin Anti-Xa, Unfract Negative (Negative) 01/20/18 11:03 POC ABG pH 7.441 (7.35-7.45) 02/04/18 15:05 POC ABG pCO2 43.6 (35-45) 02/04/18 15:05 POC ABG pO2 109 (80-105) H 02/04/18 15:05 POC ABG HCO3 29.7 02/04/18 15:05 POC ABG Total CO2 31 02/04/18 15:05 POC ABG O2 Sat 98 02/04/18 15:05 POC ABG Base Excess 6 02/04/18 15:05 VBG pH 7.273 (7.320-7.420) L 01/17/18 16:54 FiO2 35 % 02/04/18 15:05 Sodium 150 mmol/L (137-145) H 02/11/18 07:40 Potassium 3.7 mmol/L (3.6-5.0) 02/11/18 07:40 Chloride 109.5 mmol/L (98-107) H 02/11/18 07:40 Carbon Dioxide 30 mmol/L (22-30) 02/11/18 07:40 Anion Gap 14 mmol/L 02/11/18 07:40 BUN 35 mg/dL (7-17) H 02/11/18 07:40 Creatinine 1.2 mg/dL (0.7-1.2) 02/11/18 07:40 Estimated GFR 45 ml/min 02/11/18 07:40 BUN/Creatinine Ratio 29 % 02/11/18 07:40 Glucose 95 mg/dL (65-100) 02/11/18 07:40 POC Glucose 89 (70-105) 02/11/18 06:30 Hemoglobin A1c 9.0 % (4-6) H 01/17/18 22:36 Lactic Acid 1.40 mmol/L (0.7-2.0) 01/24/18 15:08 Calcium 8.4 mg/dL (8.4-10.2) 02/11/18 07:40 Ionized Calcium 3.9 mg/dL (4.8-5.6) L 01/29/18 06:00 Magnesium 1.80 mg/dL (1.7-2.3) 01/29/18 06:00 Total Bilirubin 0.50 mg/dL (0.1-1.2) 01/29/18 06:00 AST 21 units/L (5-40) 01/29/18 06:00 ALT 53 units/L (7-56) 01/29/18 06:00 Alkaline Phosphatase 88 units/L (35-129) 01/29/18 06:00 C-Reactive Protein 3.30 mg/dL (0.00-1.30) H 01/24/18 15:08 Total Protein 4.5 g/dL (6.3-8.2) L 01/29/18 06:00 Albumin 2.0 g/dL (3.9-5) L 01/29/18 06:00 Albumin/Globulin Ratio 0.8 % 01/29/18 06:00 Serotonin Release Assay See scanned report 01/20/18 11:03 Random Vancomycin 19.8 ug/mL (0-40.0) 01/27/18 05:20 ALISA Screen Negative (Negative) 01/20/18 Unknown Heparin-induced Plt Ab Negative (Negative) 01/20/18 11:03 UF Heparin High Dose 0 % Release 01/20/18 11:03 NEGRITA UFH Low Dose 0.1 0 % Release 01/20/18 11:03 NEGRITA UFH Low Dose 0.5 0 % Release 01/20/18 11:03 Complement C3 47 mg/dL (83-193) L 01/20/18 Unknown Complement C4 9 mg/dL (15-57) L 01/20/18 Unknown Hepatitis A IgM Ab Non-reactive (NonReactive) 01/20/18 07:00 Hep Bs Antigen Non-reactive (Negative) 01/20/18 07:00 Hep B Core IgM Ab Non-reactive (NonReactive) 01/20/18 07:00 Hepatitis C Antibody Non-reactive (NonReactive) 01/20/18 07:00 HIV 1&2 Antibody Rapid Non react (Non React) 01/20/18 Unknown HIV P24 Antigen Non react (Non React) 01/20/18 Unknown Blood Type B NEGATIVE 02/10/18 17:04 Antibody Screen Negative 02/10/18 17:04 Crossmatch See Detail 02/10/18 17:04
[2018-02-12] MEDS: NACL 0.45% 1000 ML 1,000 ML IV SCH ×2 (00:25→15:46)
[2018-02-12 06:42] LABS: Hematocrit 25.5 % (30.3-42.9); Hemoglobin 8.2 gm/dl (10.1-14.3); Mean Corpuscular HGB Conc 32 % (30-34); Mean Corpuscular Hemoglobin 28 pg (28-32); Mean Corpuscular Volume 88 fl (79-97); Platelet Count 296 K/mm3 (140-440); Red Blood Count 2.92 M/mm3 (3.65-5.03); Red Cell Distribution Width 14.5 % (13.2-15.2)
[2018-02-12 08:28] LABS: Anisocytosis 1+; Basophils % (Manual) 0 % (0.0-1.8); Stomatocytes 1+; Total Cells Counted 100
[2018-02-12 08:29] LABS: Platelet Estimate Cons
[2018-02-12] MEDS: BROVANA NEBU IH SCH ×2 (08:42→20:54)
[2018-02-12] MEDS: PULMICORT IH SCH ×2 (08:42→20:54)
[2018-02-12] MEDS: DILAUDID IV PRN ×2 (08:52→19:06)
--- NOTE | 2018-02-12 09:53 | Progress Note ---
Assessment and Plan Impression: * Acute kidney injury secondary to ATN - on hemodialysis * Acute respiratory failure - extubated * Spontaneous left pneumothorax s/p chest tube insertion * Sepsis * Pleural effusion * Cardiomyopathy * Anemia * Polysubstance abuse * Type II DM * Ischemic, necrotic digits of hands/feet * Pelvic mass * Anemia Plan: * Renal function is improving . Continue to hold HD * vascath removed 02/11/2018 * hypernatremia improving with IV hydration * Transfuse pRBC prn; * Consultants' recommendations noted * Abx per ID * Strict i/os * Avoid nephrotoxins * Daily lytes Subjective Date of service: 02/12/18 Principal diagnosis: anemia Interval history: Patient is comfortable this morning. Her appetite however remains poor. Her left IJ Vas-Cath has been removed. Objective - Vital Signs Vital signs: Vital Signs - 12hr 02/11/18 02/12/18 02/12/18 23:35 05:00 05:02 Temperature 98.2 F 97.9 F Pulse Rate 94 H 84 Pulse Rate [ Bilateral Throughout] Respiratory 18 18 Rate Respiratory Rate [Bilateral Throughout] Blood Pressure 137/79 152/87 O2 Sat by Pulse 100 Oximetry 02/12/18 02/12/18 02/12/18 05:17 08:01 08:42 Temperature 97.8 F 98.3 F Pulse Rate 105 H Pulse Rate [ 80 Bilateral Throughout] Respiratory 18 20 Rate Respiratory 18 Rate [Bilateral Throughout] Blood Pressure 157/87 156/81 O2 Sat by Pulse 95 Oximetry 02/12/18 02/12/18 08:45 09:01 Temperature Pulse Rate Pulse Rate [ 83 Bilateral Throughout] Respiratory Rate Respiratory 18 Rate [Bilateral Throughout] Blood Pressure O2 Sat by Pulse 99 Oximetry - General Appearance General appearance: well-developed, well-nourished, appears stated age EENT: PERRL, mucous membranes moist Neck: no JVD, no thyromegaly, no carotid bruit, supple Respiratory: Present: Clear to Ascultation Cardiology: regular, normal heart rate, S1S2, no murmurs Gastrointestinal: normal, normoactive bowel sounds Integumentary: other (gangrene of all her fingers and toes ) - Lab 02/12/18 06:09 02/12/18 06:09 Most recent lab results Calcium 8.0 mg/dL (8.4-10.2) L 02/12/18 06:09 Magnesium 1.80 mg/dL (1.7-2.3) 01/29/18 06:00
[2018-02-12] MEDS: PEPCID PO SCH (10:57)
--- NOTE | 2018-02-12 11:04 | Progress Note ---
Assessment and Plan Assessment and plan: -Acute combined respiratory failure on ventilator greater than 96 hours status post extubation: Resolving, still with oxygen via nasal cannula -Septic shock, resolved, s/p vasopressors -Acute on chronic combined heart failure improved, Cardiology has signed off -Large left pleural effusion status post left chest tube: Pulmonology is following -Acute renal failure due to ATN present on admission, improved. Patient previously on hemodialysis which now is on hold. -Acute toxic metabolic encephalopathy, POA. Resolved. 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 -Pelvic masses, ?incidental findings. 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 -DVT prophylaxis: sq heparin -Disposition. NHP History Interval history: 62-year-old admitted with hx of htn, polysubstance drug abuse per family, admitted after she was found unresponsive found in the bathroom of a friends home, noted with severe lactic acidosis, hypotensive on vasopressors, hypercapenic respiratory failure requiring intubation. Patient now extubated and has been transferred to the floor. Hospitalist Physical - Constitutional Vitals: Temp Pulse Resp BP Pulse Ox 98.3 F 83 20 156/81 99 02/12/18 08:01 02/12/18 09:01 02/12/18 10:50 02/12/18 08:01 02/12/18 08:45 General appearance: Present: no acute distress - EENT Eyes: Present: PERRL, EOM intact ENT: hearing intact, clear oral mucosa, dentition normal - Neck Neck: Present: supple, normal ROM - Respiratory Respiratory effort: normal Respiratory: bilateral: CTA - Cardiovascular Rhythm: regular Heart Sounds: Present: S1 & S2. Absent: gallop, rub - Extremities Extremities: no ischemia, No edema, Full ROM - Abdominal General gastrointestinal: soft, non-tender, non-distended, normal bowel sounds - Integumentary Integumentary: Present: clear, warm, dry - Neurologic Neurologic: CNII-XII intact, moves all extremities Results - Labs CBC & Chem 7: 02/12/18 06:09 02/12/18 06:09 Labs: Laboratory Last Values WBC 4.0 K/mm3 (4.5-11.0) L 02/12/18 06:09 RBC 2.92 M/mm3 (3.65-5.03) L 02/12/18 06:09 Hgb 8.2 gm/dl (10.1-14.3) L 02/12/18 06:09 Hct 25.5 % (30.3-42.9) L 02/12/18 06:09 MCV 88 fl (79-97) 02/12/18 06:09 MCH 28 pg (28-32) 02/12/18 06:09 MCHC 32 % (30-34) 02/12/18 06:09 RDW 14.5 % (13.2-15.2) 02/12/18 06:09 Plt Count 296 K/mm3 (140-440) 02/12/18 06:09 Lymph % (Auto) 11.2 % (13.4-35.0) L 02/06/18 07:52 [place] % (Auto) 8.5 % (0.0-7.3) H 02/06/18 07:52 Eos % (Auto) 2.7 % (0.0-4.3) 02/06/18 07:52 Baso % (Auto) 0.7 % (0.0-1.8) 02/06/18 07:52 Lymph # 0.6 K/mm3 (1.2-5.4) L 02/06/18 07:52 [place] # 0.5 K/mm3 (0.0-0.8) 02/06/18 07:52 Eos # 0.2 K/mm3 (0.0-0.4) 02/06/18 07:52 Baso # 0.0 K/mm3 (0.0-0.1) 02/06/18 07:52 Add Manual Diff Complete 02/12/18 06:09 Total Counted 100 02/12/18 06:09 Seg Neutrophils % 76.9 % (40.0-70.0) H 02/06/18 07:52 Seg Neuts % (Manual) 71.0 % (40.0-70.0) H 02/12/18 06:09 Band Neutrophils % 1.0 % 02/12/18 06:09 Lymphocytes % (Manual) 17.0 % (13.4-35.0) 02/12/18 06:09 Reactive Lymphs % (Man) 1.0 % 02/12/18 06:09 Monocytes % (Manual) 5.0 % (0.0-7.3) 02/12/18 06:09 Eosinophils % (Manual) 5.0 % (0.0-4.3) H 02/12/18 06:09 Basophils % (Manual) 0 % (0.0-1.8) 02/12/18 06:09 Metamyelocytes % 0 % 02/12/18 06:09 Myelocytes % 0 % 02/12/18 06:09 Promyelocytes % 0 % 02/12/18 06:09 Blast Cells % 0 % 02/12/18 06:09 Nucleated RBC % Not Reportable 02/12/18 06:09 Seg Neutrophils # 4.3 K/mm3 (1.8-7.7) 02/06/18 07:52 Seg Neutrophils # Man 2.8 K/mm3 (1.8-7.7) 02/12/18 06:09 Band Neutrophils # 0.0 K/mm3 02/12/18 06:09 Lymphocytes # (Manual) 0.7 K/mm3 (1.2-5.4) L 02/12/18 06:09 Abs React Lymphs (Man) 0.0 K/mm3 02/12/18 06:09 Monocytes # (Manual) 0.2 K/mm3 (0.0-0.8) 02/12/18 06:09 Eosinophils # (Manual) 0.2 K/mm3 (0.0-0.4) 02/12/18 06:09 Basophils # (Manual) 0.0 K/mm3 (0.0-0.1) 02/12/18 06:09 Metamyelocytes # 0.0 K/mm3 02/12/18 06:09 Myelocytes # 0.0 K/mm3 02/12/18 06:09 Promyelocytes # 0.0 K/mm3 02/12/18 06:09 Blast Cells # 0.0 K/mm3 02/12/18 06:09 WBC Morphology Not Reportable 02/12/18 06:09 Hypersegmented Neuts Not Reportable 02/12/18 06:09 Hyposegmented Neuts Not Reportable 02/12/18 06:09 Hypogranular Neuts Not Reportable 02/12/18 06:09 Smudge Cells Not Reportable 02/12/18 06:09 Toxic Granulation Not Reportable 02/12/18 06:09 Toxic Vacuolation Not Reportable 02/12/18 06:09 Dohle Bodies Not Reportable 02/12/18 06:09 Pelger-Huet Anomaly Not Reportable 02/12/18 06:09 Opal Rods Not Reportable 02/12/18 06:09 Platelet Estimate Cons 02/12/18 06:09 Clumped Platelets Not Reportable 02/12/18 06:09 Plt Clumps, EDTA Not Reportable 02/12/18 06:09 Large Platelets Not Reportable 02/12/18 06:09 Giant Platelets Not Reportable 02/12/18 06:09 Platelet Satelliting Not Reportable 02/12/18 06:09 Plt Morphology Comment Not Reportable 02/12/18 06:09 RBC Morphology Not Reportable 02/12/18 06:09 Dimorphic RBCs Not Reportable 02/12/18 06:09 Polychromasia Not Reportable 02/12/18 06:09 Hypochromasia Not Reportable 02/12/18 06:09 Poikilocytosis Not Reportable 02/12/18 06:09 Anisocytosis 1+ 02/12/18 06:09 Microcytosis Not Reportable 02/12/18 06:09 Macrocytosis Not Reportable 02/12/18 06:09 Spherocytes Not Reportable 02/12/18 06:09 Pappenheimer Bodies Not Reportable 02/12/18 06:09 Sickle Cells Not Reportable 02/12/18 06:09 Target Cells Not Reportable 02/12/18 06:09 Tear Drop Cells Not Reportable 02/12/18 06:09 Ovalocytes Not Reportable 02/12/18 06:09 Stomatocytes 1+ 02/12/18 06:09 Helmet Cells Not Reportable 02/12/18 06:09 [place] Bodies Not Reportable 02/12/18 06:09 [place] Rings Not Reportable 02/12/18 06:09 Jaclyn Cells Not Reportable 02/12/18 06:09 Bite Cells Not Reportable 02/12/18 06:09 Crenated Cell Not Reportable 02/12/18 06:09 Elliptocytes Not Reportable 02/12/18 06:09 Acanthocytes (Spur) Not Reportable 02/12/18 06:09 Rouleaux Not Reportable 02/12/18 06:09 Hemoglobin C Crystals Not Reportable 02/12/18 06:09 Schistocytes Not Reportable 02/12/18 06:09 Malaria parasites Not Reportable 02/12/18 06:09 Brock Bodies Not Reportable 02/12/18 06:09 Hem Pathologist Commnt No 02/12/18 06:09 PT 17.5 Sec. (12.2-14.9) H 01/20/18 07:00 INR 1.35 (0.87-1.13) H 01/20/18 07:00 Heparin Anti-Xa, Unfract Negative (Negative) 01/20/18 11:03 POC ABG pH 7.441 (7.35-7.45) 02/04/18 15:05 POC ABG pCO2 43.6 (35-45) 02/04/18 15:05 POC ABG pO2 109 (80-105) H 02/04/18 15:05 POC ABG HCO3 29.7 02/04/18 15:05 POC ABG Total CO2 31 02/04/18 15:05 POC ABG O2 Sat 98 02/04/18 15:05 POC ABG Base Excess 6 02/04/18 15:05 VBG pH 7.273 (7.320-7.420) L 01/17/18 16:54 FiO2 35 % 02/04/18 15:05 Sodium 145 mmol/L (137-145) 02/12/18 06:09 Potassium 3.6 mmol/L (3.6-5.0) 02/12/18 06:09 Chloride 106.4 mmol/L (98-107) 02/12/18 06:09 Carbon Dioxide 27 mmol/L (22-30) 02/12/18 06:09 Anion Gap 15 mmol/L 02/12/18 06:09 BUN 28 mg/dL (7-17) H 02/12/18 06:09 Creatinine 1.1 mg/dL (0.7-1.2) 02/12/18 06:09 Estimated GFR 50 ml/min 02/12/18 06:09 BUN/Creatinine Ratio 25 % 02/12/18 06:09 Glucose 87 mg/dL (65-100) 02/12/18 06:09 POC Glucose 96 (70-105) 02/12/18 05:12 Hemoglobin A1c 9.0 % (4-6) H 01/17/18 22:36 Lactic Acid 1.40 mmol/L (0.7-2.0) 01/24/18 15:08 Calcium 8.0 mg/dL (8.4-10.2) L 02/12/18 06:09 Ionized Calcium 3.9 mg/dL (4.8-5.6) L 01/29/18 06:00 Magnesium 1.80 mg/dL (1.7-2.3) 01/29/18 06:00 Total Bilirubin 0.50 mg/dL (0.1-1.2) 01/29/18 06:00 AST 21 units/L (5-40) 01/29/18 06:00 ALT 53 units/L (7-56) 01/29/18 06:00 Alkaline Phosphatase 88 units/L (35-129) 01/29/18 06:00 C-Reactive Protein 3.30 mg/dL (0.00-1.30) H 01/24/18 15:08 Total Protein 4.5 g/dL (6.3-8.2) L 01/29/18 06:00 Albumin 2.0 g/dL (3.9-5) L 01/29/18 06:00 Albumin/Globulin Ratio 0.8 % 01/29/18 06:00 Serotonin Release Assay See scanned report 01/20/18 11:03 Random Vancomycin 19.8 ug/mL (0-40.0) 01/27/18 05:20 ALISA Screen Negative (Negative) 01/20/18 Unknown Heparin-induced Plt Ab Negative (Negative) 01/20/18 11:03 UF Heparin High Dose 0 % Release 01/20/18 11:03 NEGRITA UFH Low Dose 0.1 0 % Release 01/20/18 11:03 NEGRITA UFH Low Dose 0.5 0 % Release 01/20/18 11:03 Complement C3 47 mg/dL (83-193) L 01/20/18 Unknown Complement C4 9 mg/dL (15-57) L 01/20/18 Unknown Hepatitis A IgM Ab Non-reactive (NonReactive) 01/20/18 07:00 Hep Bs Antigen Non-reactive (Negative) 01/20/18 07:00 Hep B Core IgM Ab Non-reactive (NonReactive) 01/20/18 07:00 Hepatitis C Antibody Non-reactive (NonReactive) 01/20/18 07:00 HIV 1&2 Antibody Rapid Non react (Non React) 01/20/18 Unknown HIV P24 Antigen Non react (Non React) 01/20/18 Unknown Blood Type B NEGATIVE 02/10/18 17:04 Antibody Screen Negative 02/10/18 17:04 Crossmatch See Detail 02/10/18 17:04
[2018-02-12] MEDS ORDERED: Fluarix Quad 2017-2018(36 MOS+ IM ONE (12:00)
[2018-02-13] MEDS: NACL 0.45% 1000 ML 1,000 ML IV SCH ×2 (05:42→21:26)
[2018-02-13] MEDS: PULMICORT IH SCH ×2 (07:58→19:41)
[2018-02-13] MEDS: BROVANA NEBU IH SCH ×2 (07:58→19:41)
--- NOTE | 2018-02-13 09:40 | Progress Note ---
Assessment and Plan Impression: * Acute kidney injury secondary to ATN - on hemodialysis * Acute respiratory failure - extubated * Spontaneous left pneumothorax s/p chest tube insertion * Sepsis * Pleural effusion * Cardiomyopathy * Anemia * Polysubstance abuse * Type II DM * Ischemic, necrotic digits of hands/feet * Pelvic mass * Anemia Plan: * Renal function is has improved. She has been on dialysis for more than a week * vascath removed 02/11/2018 * hypernatremia improving with IV hydration * Transfuse pRBC prn; * Consultants' recommendations noted * Abx per ID * Strict i/os * Avoid nephrotoxins * Daily lytes * Shall reduce her IV fluid. May discontinue when oral intake improves Subjective Date of service: 02/13/18 Principal diagnosis: anemia Interval history: Patient is awake and alert. Denies any shortness of breath. No nausea or vomiting. Oral intake remains poor. Objective - Vital Signs Vital signs: Vital Signs - 12hr 02/12/18 02/13/18 02/13/18 22:00 00:22 00:25 Temperature 98.1 F Pulse Rate 83 90 Pulse Rate [ Bilateral Throughout] Respiratory 20 Rate Respiratory Rate [Bilateral Throughout] Blood Pressure 138/74 O2 Sat by Pulse Oximetry 02/13/18 02/13/18 04:11 07:59 Temperature 98.7 F Pulse Rate 89 Pulse Rate [ 86 Bilateral Throughout] Respiratory 20 Rate Respiratory 18 Rate [Bilateral Throughout] Blood Pressure 145/77 O2 Sat by Pulse 97 97 Oximetry - General Appearance General appearance: well-developed, well-nourished, appears stated age EENT: PERRL, mucous membranes moist Neck: no JVD, no thyromegaly Respiratory: Present: [place], Other (left sided chest tube in place) Cardiology: regular, normal heart rate Gastrointestinal: normal, normoactive bowel sounds Integumentary: other (gangrene noted in all her fingers and toes. 1+ edema) - Lab 02/12/18 06:09 02/13/18 04:36 Most recent lab results Calcium 8.0 mg/dL (8.4-10.2) L 02/13/18 04:36 Magnesium 1.80 mg/dL (1.7-2.3) 01/29/18 06:00
[2018-02-13] MEDS: DILAUDID IV PRN ×2 (11:35→18:15)
--- NOTE | 2018-02-13 11:46 | Progress Note ---
Assessment and Plan Assessment and plan: -Acute combined respiratory failure on ventilator greater than 96 hours status post extubation: Resolving, still with oxygen via nasal cannula -Septic shock, resolved, s/p vasopressors -Acute on chronic combined heart failure improved, Cardiology has signed off -Large left pleural effusion status post left chest tube: Pulmonology is following -Acute renal failure due to ATN present on admission, improved. Patient previously on hemodialysis which now is on hold. -Acute toxic metabolic encephalopathy, POA. Resolved. 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 -Pelvic masses, ?incidental findings. 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 -DVT prophylaxis: sq heparin -Disposition. NHP History Interval history: 62-year-old admitted with hx of htn, polysubstance drug abuse per family, admitted after she was found unresponsive found in the bathroom of a friends home, noted with severe lactic acidosis, hypotensive on vasopressors, hypercapenic respiratory failure requiring intubation. Patient now extubated and has been transferred to the floor. Hospitalist Physical - Constitutional Vitals: Temp Pulse Resp BP Pulse Ox 98.2 F 85 18 160/76 98 02/13/18 08:12 02/13/18 10:00 02/13/18 08:12 02/13/18 08:12 02/13/18 08:12 General appearance: Present: no acute distress - EENT Eyes: Present: PERRL, EOM intact ENT: hearing intact, clear oral mucosa, dentition normal - Neck Neck: Present: supple, normal ROM - Respiratory Respiratory effort: normal Respiratory: bilateral: CTA - Cardiovascular Rhythm: regular Heart Sounds: Present: S1 & S2. Absent: gallop, rub - Extremities Extremities: no ischemia, No edema, Full ROM - Abdominal General gastrointestinal: soft, non-tender, non-distended, normal bowel sounds - Integumentary Integumentary: Present: clear, warm, dry - Neurologic Neurologic: CNII-XII intact, moves all extremities Results - Labs CBC & Chem 7: 02/12/18 06:09 02/13/18 04:36 Labs: Laboratory Last Values WBC 4.0 K/mm3 (4.5-11.0) L 02/12/18 06:09 RBC 2.92 M/mm3 (3.65-5.03) L 02/12/18 06:09 Hgb 8.2 gm/dl (10.1-14.3) L 02/12/18 06:09 Hct 25.5 % (30.3-42.9) L 02/12/18 06:09 MCV 88 fl (79-97) 02/12/18 06:09 MCH 28 pg (28-32) 02/12/18 06:09 MCHC 32 % (30-34) 02/12/18 06:09 RDW 14.5 % (13.2-15.2) 02/12/18 06:09 Plt Count 296 K/mm3 (140-440) 02/12/18 06:09 Lymph % (Auto) 11.2 % (13.4-35.0) L 02/06/18 07:52 [place] % (Auto) 8.5 % (0.0-7.3) H 02/06/18 07:52 Eos % (Auto) 2.7 % (0.0-4.3) 02/06/18 07:52 Baso % (Auto) 0.7 % (0.0-1.8) 02/06/18 07:52 Lymph # 0.6 K/mm3 (1.2-5.4) L 02/06/18 07:52 [place] # 0.5 K/mm3 (0.0-0.8) 02/06/18 07:52 Eos # 0.2 K/mm3 (0.0-0.4) 02/06/18 07:52 Baso # 0.0 K/mm3 (0.0-0.1) 02/06/18 07:52 Add Manual Diff Complete 02/12/18 06:09 Total Counted 100 02/12/18 06:09 Seg Neutrophils % 76.9 % (40.0-70.0) H 02/06/18 07:52 Seg Neuts % (Manual) 71.0 % (40.0-70.0) H 02/12/18 06:09 Band Neutrophils % 1.0 % 02/12/18 06:09 Lymphocytes % (Manual) 17.0 % (13.4-35.0) 02/12/18 06:09 Reactive Lymphs % (Man) 1.0 % 02/12/18 06:09 Monocytes % (Manual) 5.0 % (0.0-7.3) 02/12/18 06:09 Eosinophils % (Manual) 5.0 % (0.0-4.3) H 02/12/18 06:09 Basophils % (Manual) 0 % (0.0-1.8) 02/12/18 06:09 Metamyelocytes % 0 % 02/12/18 06:09 Myelocytes % 0 % 02/12/18 06:09 Promyelocytes % 0 % 02/12/18 06:09 Blast Cells % 0 % 02/12/18 06:09 Nucleated RBC % Not Reportable 02/12/18 06:09 Seg Neutrophils # 4.3 K/mm3 (1.8-7.7) 02/06/18 07:52 Seg Neutrophils # Man 2.8 K/mm3 (1.8-7.7) 02/12/18 06:09 Band Neutrophils # 0.0 K/mm3 02/12/18 06:09 Lymphocytes # (Manual) 0.7 K/mm3 (1.2-5.4) L 02/12/18 06:09 Abs React Lymphs (Man) 0.0 K/mm3 02/12/18 06:09 Monocytes # (Manual) 0.2 K/mm3 (0.0-0.8) 02/12/18 06:09 Eosinophils # (Manual) 0.2 K/mm3 (0.0-0.4) 02/12/18 06:09 Basophils # (Manual) 0.0 K/mm3 (0.0-0.1) 02/12/18 06:09 Metamyelocytes # 0.0 K/mm3 02/12/18 06:09 Myelocytes # 0.0 K/mm3 02/12/18 06:09 Promyelocytes # 0.0 K/mm3 02/12/18 06:09 Blast Cells # 0.0 K/mm3 02/12/18 06:09 WBC Morphology Not Reportable 02/12/18 06:09 Hypersegmented Neuts Not Reportable 02/12/18 06:09 Hyposegmented Neuts Not Reportable 02/12/18 06:09 Hypogranular Neuts Not Reportable 02/12/18 06:09 Smudge Cells Not Reportable 02/12/18 06:09 Toxic Granulation Not Reportable 02/12/18 06:09 Toxic Vacuolation Not Reportable 02/12/18 06:09 Dohle Bodies Not Reportable 02/12/18 06:09 Pelger-Huet Anomaly Not Reportable 02/12/18 06:09 Opal Rods Not Reportable 02/12/18 06:09 Platelet Estimate Cons 02/12/18 06:09 Clumped Platelets Not Reportable 02/12/18 06:09 Plt Clumps, EDTA Not Reportable 02/12/18 06:09 Large Platelets Not Reportable 02/12/18 06:09 Giant Platelets Not Reportable 02/12/18 06:09 Platelet Satelliting Not Reportable 02/12/18 06:09 Plt Morphology Comment Not Reportable 02/12/18 06:09 RBC Morphology Not Reportable 02/12/18 06:09 Dimorphic RBCs Not Reportable 02/12/18 06:09 Polychromasia Not Reportable 02/12/18 06:09 Hypochromasia Not Reportable 02/12/18 06:09 Poikilocytosis Not Reportable 02/12/18 06:09 Anisocytosis 1+ 02/12/18 06:09 Microcytosis Not Reportable 02/12/18 06:09 Macrocytosis Not Reportable 02/12/18 06:09 Spherocytes Not Reportable 02/12/18 06:09 Pappenheimer Bodies Not Reportable 02/12/18 06:09 Sickle Cells Not Reportable 02/12/18 06:09 Target Cells Not Reportable 02/12/18 06:09 Tear Drop Cells Not Reportable 02/12/18 06:09 Ovalocytes Not Reportable 02/12/18 06:09 Stomatocytes 1+ 02/12/18 06:09 Helmet Cells Not Reportable 02/12/18 06:09 Frank[place] Bodies Not Reportable 02/12/18 06:09 [place] Rings Not Reportable 02/12/18 06:09 Jaclyn Cells Not Reportable 02/12/18 06:09 Bite Cells Not Reportable 02/12/18 06:09 Crenated Cell Not Reportable 02/12/18 06:09 Elliptocytes Not Reportable 02/12/18 06:09 Acanthocytes (Spur) Not Reportable 02/12/18 06:09 Rouleaux Not Reportable 02/12/18 06:09 Hemoglobin C Crystals Not Reportable 02/12/18 06:09 Schistocytes Not Reportable 02/12/18 06:09 Malaria parasites Not Reportable 02/12/18 06:09 Brock Bodies Not Reportable 02/12/18 06:09 Hem Pathologist Commnt No 02/12/18 06:09 PT 17.5 Sec. (12.2-14.9) H 01/20/18 07:00 INR 1.35 (0.87-1.13) H 01/20/18 07:00 Heparin Anti-Xa, Unfract Negative (Negative) 01/20/18 11:03 POC ABG pH 7.441 (7.35-7.45) 02/04/18 15:05 POC ABG pCO2 43.6 (35-45) 02/04/18 15:05 POC ABG pO2 109 (80-105) H 02/04/18 15:05 POC ABG HCO3 29.7 02/04/18 15:05 POC ABG Total CO2 31 02/04/18 15:05 POC ABG O2 Sat 98 02/04/18 15:05 POC ABG Base Excess 6 02/04/18 15:05 VBG pH 7.273 (7.320-7.420) L 01/17/18 16:54 FiO2 35 % 02/04/18 15:05 Sodium 142 mmol/L (137-145) 02/13/18 04:36 Potassium 3.3 mmol/L (3.6-5.0) L 02/13/18 04:36 Chloride 104.6 mmol/L (98-107) 02/13/18 04:36 Carbon Dioxide 26 mmol/L (22-30) 02/13/18 04:36 Anion Gap 15 mmol/L 02/13/18 04:36 BUN 25 mg/dL (7-17) H 02/13/18 04:36 Creatinine 1.0 mg/dL (0.7-1.2) 02/13/18 04:36 Estimated GFR 56 ml/min 02/13/18 04:36 BUN/Creatinine Ratio 25 % 02/13/18 04:36 Glucose 81 mg/dL (65-100) 02/13/18 04:36 POC Glucose 93 (70-105) 02/13/18 06:38 Hemoglobin A1c 9.0 % (4-6) H 01/17/18 22:36 Lactic Acid 1.40 mmol/L (0.7-2.0) 01/24/18 15:08 Calcium 8.0 mg/dL (8.4-10.2) L 02/13/18 04:36 Ionized Calcium 3.9 mg/dL (4.8-5.6) L 01/29/18 06:00 Magnesium 1.80 mg/dL (1.7-2.3) 01/29/18 06:00 Total Bilirubin 0.50 mg/dL (0.1-1.2) 01/29/18 06:00 AST 21 units/L (5-40) 01/29/18 06:00 ALT 53 units/L (7-56) 01/29/18 06:00 Alkaline Phosphatase 88 units/L (35-129) 01/29/18 06:00 C-Reactive Protein 3.30 mg/dL (0.00-1.30) H 01/24/18 15:08 Total Protein 4.5 g/dL (6.3-8.2) L 01/29/18 06:00 Albumin 2.0 g/dL (3.9-5) L 01/29/18 06:00 Albumin/Globulin Ratio 0.8 % 01/29/18 06:00 Serotonin Release Assay See scanned report 01/20/18 11:03 Random Vancomycin 19.8 ug/mL (0-40.0) 01/27/18 05:20 ALISA Screen Negative (Negative) 01/20/18 Unknown Heparin-induced Plt Ab Negative (Negative) 01/20/18 11:03 UF Heparin High Dose 0 % Release 01/20/18 11:03 NEGRITA UFH Low Dose 0.1 0 % Release 01/20/18 11:03 NEGRITA UFH Low Dose 0.5 0 % Release 01/20/18 11:03 Complement C3 47 mg/dL (83-193) L 01/20/18 Unknown Complement C4 9 mg/dL (15-57) L 01/20/18 Unknown Hepatitis A IgM Ab Non-reactive (NonReactive) 01/20/18 07:00 Hep Bs Antigen Non-reactive (Negative) 01/20/18 07:00 Hep B Core IgM Ab Non-reactive (NonReactive) 01/20/18 07:00 Hepatitis C Antibody Non-reactive (NonReactive) 01/20/18 07:00 HIV 1&2 Antibody Rapid Non react (Non React) 01/20/18 Unknown HIV P24 Antigen Non react (Non React) 01/20/18 Unknown Blood Type B NEGATIVE 02/10/18 17:04 Antibody Screen Negative 02/10/18 17:04 Crossmatch See Detail 02/10/18 17:04
[2018-02-13] MEDS ORDERED: Fluarix Quad 2017-2018(36 MOS+ IM ONE (12:00)
--- NOTE | 2018-02-13 21:26 | Progress Note ---
Assessment and Plan Patient sleeping at this time on room air. No acute respiratory distress.Patient afebrile. O2 saturation 96%.Patient still has left sided chest tube. Chest tube can be removed tomorrow by interventional radiology. - Patient Problems (1) Acute respiratory failure Current Visit: Yes Status: Acute Plan to address problem: Patient presently sleeping on room air., O2 saturation 96%. Brovanna/budesonide aerosol treatments q 12 hours. Albuterol/atrovent aerosol treatments q 6 hours PRN for shortness of breath. Heparin 5000 units S/C q 8 hours Continue Famotadine. (2) Pleural effusion Current Visit: Yes Status: Acute Plan to address problem: Left [place] chest tube placement. Left sided pleural effusion improved. Patients chest tube can be removed by interventional radiology. (3) Acute renal failure Current Visit: Yes Status: Acute Plan to address problem: Management as per nephrology. (4) Encephalopathy Current Visit: Yes Status: Acute Plan to address problem: Management as per primary care and neurology. (5) Gangrene of lower extremity Current Visit: Yes Status: Acute Plan to address problem: Management as per vascular surgery. (6) Gas gangrene of upper extremity Current Visit: Yes Status: Acute Plan to address problem: Management as per vascular surgery. Subjective Date of service: 02/13/18 Principal diagnosis: anemia Interval history: Patient sleeping at this time on room air. No acute respiratory distress.Patient afebrile. O2 saturation 96%.Patient still has left sided chest tube. Chest tube can be removed tomorrow by interventional radiology. Objective Vital Signs - 12hr 02/13/18 02/13/18 02/13/18 10:00 12:35 13:00 Temperature 97.5 F L Pulse Rate 85 93 H Pulse Rate [ 83 Apical] Pulse Rate [ Bilateral Throughout] Respiratory 18 18 Rate Respiratory Rate [Bilateral Throughout] Blood Pressure 143/73 Blood Pressure [Left] O2 Sat by Pulse 93 97 Oximetry 02/13/18 02/13/18 02/13/18 19:03 19:41 19:42 Temperature 97.9 F Pulse Rate 103 H Pulse Rate [ Apical] Pulse Rate [ 86 Bilateral Throughout] Respiratory 16 Rate Respiratory 18 Rate [Bilateral Throughout] Blood Pressure Blood Pressure 161/87 [Left] O2 Sat by Pulse 98 96 Oximetry 02/13/18 19:49 Temperature Pulse Rate Pulse Rate [ Apical] Pulse Rate [ 84 Bilateral Throughout] Respiratory Rate Respiratory 16 Rate [Bilateral Throughout] Blood Pressure Blood Pressure [Left] O2 Sat by Pulse Oximetry Constitutional: no acute distress Eyes: non-icteric ENT: oropharynx moist, other (ETT 20 cm MARGOT and advanced to 23cm MARGOT) Neck: supple, no lymphadenopathy, no JVD Effort: mildly labored Ascultation: Bilateral: diminished breath sounds, rales Percussion: Bilateral: not dull Cardiovascular: regular rate and rhythm, other (no rubs or murmurs) Gastrointestinal: normoactive bowel sounds, soft, non-tender, non-distended, other (no [place] HSM) Integumentary: normal Extremities: no cyanosis, no edema, pink and warm, pulses normal Neurologic: non-focal exam (grossly), pupils equal and round, CN II-XII normal Psychiatric: other (Sleeping at this time.) CBC and BMP: 02/12/18 06:09 02/13/18 04:36 ABG, PT/INR, D-dimer: ABG POC ABG pH 7.441 (7.35-7.45) 02/04/18 15:05 POC ABG pCO2 43.6 (35-45) 02/04/18 15:05 POC ABG pO2 109 (80-105) H 02/04/18 15:05 POC ABG HCO3 29.7 02/04/18 15:05 POC ABG Total CO2 31 02/04/18 15:05 POC ABG O2 Sat 98 02/04/18 15:05 PT/INR, D-dimer PT 17.5 Sec. (12.2-14.9) H 01/20/18 07:00 INR 1.35 (0.87-1.13) H 01/20/18 07:00 Abnormal lab findings: Abnormal Labs 01/17/18 01/17/18 01/17/18 15:25 16:15 16:48 WBC RBC Hgb Hct MCH RDW Plt Count Lymph % (Auto) [place] % (Auto) Lymph # [place] # Seg Neutrophils % Seg Neuts % (Manual) Lymphocytes % (Manual) Monocytes % (Manual) Eosinophils % (Manual) Nucleated RBC % Seg Neutrophils # Seg Neutrophils # Man Lymphocytes # (Manual) Monocytes # (Manual) PT INR POC ABG pH 7.099 L POC ABG pCO2 58.9 H POC ABG pO2 149 H VBG pH Sodium Potassium Chloride Carbon Dioxide BUN Creatinine Glucose POC Glucose < 40 L 121 H Hemoglobin A1c Lactic Acid Calcium Ionized Calcium Total Bilirubin AST ALT Alkaline Phosphatase C-Reactive Protein Total Protein Albumin Complement C3 Complement C4 Crossmatch 01/17/18 01/17/18 01/17/18 16:54 16:54 16:54 WBC RBC Hgb Hct MCH RDW Plt Count Lymph % (Auto) [place] % (Auto) Lymph # [place] # Seg Neutrophils % Seg Neuts % (Manual) 72.0 H Lymphocytes % (Manual) 3.0 L Monocytes % (Manual) Eosinophils % (Manual) Nucleated RBC % Seg Neutrophils # Seg Neutrophils # Man Lymphocytes # (Manual) 0.2 L Monocytes # (Manual) PT 18.5 H INR 1.45 H POC ABG pH POC ABG pCO2 POC ABG pO2 VBG pH Sodium 136 L Potassium Chloride 97.8 L Carbon Dioxide 16 L BUN 43 H Creatinine 3.3 H Glucose 121 H POC Glucose Hemoglobin A1c Lactic Acid Calcium 6.7 L Ionized Calcium Total Bilirubin AST ALT Alkaline Phosphatase C-Reactive Protein Total Protein 4.4 L Albumin 2.3 L Complement C3 Complement C4 Crossmatch 01/17/18 01/17/18 01/17/18 16:54 16:54 17:11 WBC RBC Hgb Hct MCH RDW Plt Count Lymph % (Auto) [place] % (Auto) Lymph # [place] # Seg Neutrophils % Seg Neuts % (Manual) Lymphocytes % (Manual) Monocytes % (Manual) Eosinophils % (Manual) Nucleated RBC % Seg Neutrophils # Seg Neutrophils # Man Lymphocytes # (Manual) Monocytes # (Manual) PT INR POC ABG pH POC ABG pCO2 POC ABG pO2 VBG pH 7.273 L Sodium Potassium Chloride Carbon Dioxide BUN Creatinine Glucose POC Glucose Hemoglobin A1c Lactic Acid 4.70 H* 4.30 H* Calcium Ionized Calcium Total Bilirubin AST ALT Alkaline Phosphatase C-Reactive Protein Total Protein Albumin Complement C3 Complement C4 Crossmatch 01/17/18 01/17/18 01/17/18 18:02 18:15 19:21 WBC RBC Hgb Hct MCH RDW Plt Count Lymph % (Auto) [place] % (Auto) Lymph # [place] # Seg Neutrophils % Seg Neuts % (Manual) Lymphocytes % (Manual) Monocytes % (Manual) Eosinophils % (Manual) Nucleated RBC % Seg Neutrophils # Seg Neutrophils # Man Lymphocytes # (Manual) Monocytes # (Manual) PT INR POC ABG pH 7.177 L POC ABG pCO2 POC ABG pO2 VBG pH Sodium Potassium Chloride Carbon Dioxide BUN Creatinine Glucose POC Glucose < 40 L Hemoglobin A1c Lactic Acid 3.00 H* Calcium Ionized Calcium Total Bilirubin AST ALT Alkaline Phosphatase C-Reactive Protein Total Protein Albumin Complement C3 Complement C4 Crossmatch 01/17/18 01/17/18 01/17/18 22:36 22:36 23:16 WBC RBC Hgb Hct MCH RDW Plt Count Lymph % (Auto) [place] % (Auto) Lymph # [place] # Seg Neutrophils % Seg Neuts % (Manual) Lymphocytes % (Manual) Monocytes % (Manual) Eosinophils % (Manual) Nucleated RBC % Seg Neutrophils # Seg Neutrophils # Man Lymphocytes # (Manual) Monocytes # (Manual) PT INR POC ABG pH 7.112 L POC ABG pCO2 50.1 H POC ABG pO2 50 L VBG pH Sodium Potassium Chloride Carbon Dioxide BUN Creatinine Glucose POC Glucose Hemoglobin A1c 9.0 H Lactic Acid 5.50 H* Calcium Ionized Calcium Total Bilirubin AST ALT Alkaline Phosphatase C-Reactive Protein Total Protein Albumin Complement C3 Complement C4 Crossmatch 01/18/18 01/18/18 01/18/18 01:26 03:21 03:21 WBC RBC Hgb Hct MCH RDW Plt Count Lymph % (Auto) [place] % (Auto) Lymph # [place] # Seg Neutrophils % Seg Neuts % (Manual) 27.0 L Lymphocytes % (Manual) 3.0 L Monocytes % (Manual) 14.0 H Eosinophils % (Manual) Nucleated RBC % Seg Neutrophils # Seg Neutrophils # Man Lymphocytes # (Manual) 0.3 L Monocytes # (Manual) 1.4 H PT INR POC ABG pH POC ABG pCO2 POC ABG pO2 VBG pH Sodium Potassium Chloride Carbon Dioxide BUN Creatinine Glucose POC Glucose 107 H Hemoglobin A1c Lactic Acid 8.00 H* Calcium Ionized Calcium Total Bilirubin AST ALT Alkaline Phosphatase C-Reactive Protein Total Protein Albumin Complement C3 Complement C4 Crossmatch 01/18/18 01/18/18 01/18/18 03:21 04:40 05:07 WBC RBC Hgb Hct MCH RDW Plt Count Lymph % (Auto) [place] % (Auto) Lymph # [place] # Seg Neutrophils % Seg Neuts % (Manual) Lymphocytes % (Manual) Monocytes % (Manual) Eosinophils % (Manual) Nucleated RBC % Seg Neutrophils # Seg Neutrophils # Man Lymphocytes # (Manual) Monocytes # (Manual) PT INR POC ABG pH 7.093 L POC ABG pCO2 31.5 L POC ABG pO2 77 L VBG pH Sodium Potassium Chloride 96.9 L Carbon Dioxide 14 L BUN 47 H Creatinine 3.4 H Glucose POC Glucose Hemoglobin A1c Lactic Acid 11.10 H* Calcium 6.4 L Ionized Calcium Total Bilirubin AST 47 H ALT Alkaline Phosphatase C-Reactive Protein Total Protein 4.3 L Albumin 2.4 L Complement C3 Complement C4 Crossmatch 01/18/18 01/18/18 01/18/18 06:29 07:06 11:44 WBC RBC Hgb Hct MCH RDW Plt Count Lymph % (Auto) [place] % (Auto) Lymph # [place] # Seg Neutrophils % Seg Neuts % (Manual) Lymphocytes % (Manual) Monocytes % (Manual) Eosinophils % (Manual) Nucleated RBC % Seg Neutrophils # Seg Neutrophils # Man Lymphocytes # (Manual) Monocytes # (Manual) PT INR POC ABG pH POC ABG pCO2 POC ABG pO2 VBG pH Sodium Potassium Chloride Carbon Dioxide BUN Creatinine Glucose POC Glucose 47 L 149 H < 40 L Hemoglobin A1c Lactic Acid Calcium Ionized Calcium Total Bilirubin AST ALT Alkaline Phosphatase C-Reactive Protein Total Protein Albumin Complement C3 Complement C4 Crossmatch 01/18/18 01/18/18 01/18/18 11:46 14:15 18:01 WBC RBC Hgb Hct MCH RDW Plt Count Lymph % (Auto) [place] % (Auto) Lymph # [place] # Seg Neutrophils % Seg Neuts % (Manual) Lymphocytes % (Manual) Monocytes % (Manual) Eosinophils % (Manual) Nucleated RBC % Seg Neutrophils # Seg Neutrophils # Man Lymphocytes # (Manual) Monocytes # (Manual) PT INR POC ABG pH POC ABG pCO2 POC ABG pO2 VBG pH Sodium Potassium Chloride Carbon Dioxide BUN Creatinine Glucose POC Glucose 116 H < 40 L Hemoglobin A1c Lactic Acid 10.00 H* Calcium Ionized Calcium Total Bilirubin AST ALT Alkaline Phosphatase C-Reactive Protein Total Protein Albumin Complement C3 Complement C4 Crossmatch 01/18/18 01/18/18 01/18/18 18:02 23:25 23:27 WBC RBC Hgb Hct MCH RDW Plt Count Lymph % (Auto) [place] % (Auto) Lymph # [place] # Seg Neutrophils % Seg Neuts % (Manual) Lymphocytes % (Manual) Monocytes % (Manual) Eosinophils % (Manual) Nucleated RBC % Seg Neutrophils # Seg Neutrophils # Man Lymphocytes # (Manual) Monocytes # (Manual) PT INR POC ABG pH POC ABG pCO2 POC ABG pO2 VBG pH Sodium Potassium Chloride Carbon Dioxide BUN Creatinine Glucose POC Glucose 136 H < 40 L < 40 L Hemoglobin A1c Lactic Acid Calcium Ionized Calcium Total Bilirubin AST ALT Alkaline Phosphatase C-Reactive Protein Total Protein Albumin Complement C3 Complement C4 Crossmatch 01/19/18 01/19/18 01/19/18 04:02 06:50 06:50 WBC 18.5 H RBC Hgb Hct MCH RDW Plt Count 136 L Lymph % (Auto) [place] % (Auto) Lymph # [place] # Seg Neutrophils % Seg Neuts % (Manual) 86.0 H Lymphocytes % (Manual) 4.0 L Monocytes % (Manual) Eosinophils % (Manual) Nucleated RBC % Seg Neutrophils # Seg Neutrophils # Man 15.9 H Lymphocytes # (Manual) 0.7 L Monocytes # (Manual) 1.1 H PT 21.3 H INR 1.73 H POC ABG pH POC ABG pCO2 28.3 L POC ABG pO2 57 L VBG pH Sodium Potassium Chloride Carbon Dioxide BUN Creatinine Glucose POC Glucose Hemoglobin A1c Lactic Acid Calcium Ionized Calcium Total Bilirubin AST ALT Alkaline Phosphatase C-Reactive Protein Total Protein Albumin Complement C3 Complement C4 Crossmatch 01/19/18 01/19/18 01/19/18 06:50 08:45 11:17 WBC RBC Hgb Hct MCH RDW Plt Count Lymph % (Auto) [place] % (Auto) Lymph # [place] # Seg Neutrophils % Seg Neuts % (Manual) Lymphocytes % (Manual) Monocytes % (Manual) Eosinophils % (Manual) Nucleated RBC % Seg Neutrophils # Seg Neutrophils # Man Lymphocytes # (Manual) Monocytes # (Manual) PT INR POC ABG pH POC ABG pCO2 POC ABG pO2 VBG pH Sodium 135 L Potassium Chloride 92.8 L Carbon Dioxide 19 L BUN 31 H Creatinine 2.6 H Glucose POC Glucose 110 H Hemoglobin A1c Lactic Acid 7.90 H* Calcium 7.1 L Ionized Calcium Total Bilirubin 1.60 H AST 2526 H ALT 1187 H Alkaline Phosphatase 133 H C-Reactive Protein Total Protein 4.8 L Albumin 2.0 L Complement C3 Complement C4 Crossmatch 01/19/18 01/19/18 01/19/18 11:31 22:12 23:34 WBC RBC Hgb Hct MCH RDW Plt Count Lymph % (Auto) [place] % (Auto) Lymph # [place] # Seg Neutrophils % Seg Neuts % (Manual) Lymphocytes % (Manual) Monocytes % (Manual) Eosinophils % (Manual) Nucleated RBC % Seg Neutrophils # Seg Neutrophils # Man Lymphocytes # (Manual) Monocytes # (Manual) PT INR POC ABG pH POC ABG pCO2 31.6 L POC ABG pO2 59 L VBG pH Sodium Potassium Chloride Carbon Dioxide BUN Creatinine Glucose POC Glucose 131 H 53 L Hemoglobin A1c Lactic Acid Calcium Ionized Calcium Total Bilirubin AST ALT Alkaline Phosphatase C-Reactive Protein Total Protein Albumin Complement C3 Complement C4 Crossmatch 01/20/18 01/20/18 01/20/18 05:18 05:18 05:19 WBC 19.7 H RBC Hgb Hct MCH 27 L RDW Plt Count 84 L Lymph % (Auto) [place] % (Auto) Lymph # [place] # Seg Neutrophils % Seg Neuts % (Manual) 84.0 H Lymphocytes % (Manual) 2.0 L Monocytes % (Manual) 8.0 H Eosinophils % (Manual) Nucleated RBC % Seg Neutrophils # Seg Neutrophils # Man 16.5 H Lymphocytes # (Manual) 0.4 L Monocytes # (Manual) 1.6 H PT INR POC ABG pH POC ABG pCO2 POC ABG pO2 VBG pH Sodium 136 L Potassium Chloride 96.9 L Carbon Dioxide 17 L BUN 65 H Creatinine 4.1 H D Glucose 104 H POC Glucose 125 H Hemoglobin A1c Lactic Acid Calcium 7.1 L Ionized Calcium Total Bilirubin 1.60 H AST 1702 H ALT 1141 H Alkaline Phosphatase 172 H C-Reactive Protein Total Protein 5.0 L Albumin 1.7 L Complement C3 Complement C4 Crossmatch 01/20/18 01/20/18 01/20/18 07:00 11:48 13:54 WBC RBC Hgb Hct MCH RDW Plt Count Lymph % (Auto) [place] % (Auto) Lymph # [place] # Seg Neutrophils % Seg Neuts % (Manual) Lymphocytes % (Manual) Monocytes % (Manual) Eosinophils % (Manual) Nucleated RBC % Seg Neutrophils # Seg Neutrophils # Man Lymphocytes # (Manual) Monocytes # (Manual) PT 17.5 H INR 1.35 H POC ABG pH POC ABG pCO2 POC ABG pO2 VBG pH Sodium Potassium Chloride Carbon Dioxide BUN Creatinine Glucose POC Glucose 109 H Hemoglobin A1c Lactic Acid Calcium Ionized Calcium Total Bilirubin AST ALT Alkaline Phosphatase C-Reactive Protein 37.50 H Total Protein Albumin Complement C3 Complement C4 Crossmatch 01/20/18 01/20/18 01/20/18 17:28 17:51 20:50 WBC RBC Hgb Hct MCH RDW Plt Count Lymph % (Auto) [place] % (Auto) Lymph # [place] # Seg Neutrophils % Seg Neuts % (Manual) Lymphocytes % (Manual) Monocytes % (Manual) Eosinophils % (Manual) Nucleated RBC % Seg Neutrophils # Seg Neutrophils # Man Lymphocytes # (Manual) Monocytes # (Manual) PT INR POC ABG pH POC ABG pCO2 POC ABG pO2 VBG pH Sodium Potassium Chloride Carbon Dioxide BUN Creatinine Glucose POC Glucose 140 H Hemoglobin A1c Lactic Acid 2.70 H* 2.30 H* Calcium Ionized Calcium Total Bilirubin AST ALT Alkaline Phosphatase C-Reactive Protein Total Protein Albumin Complement C3 Complement C4 Crossmatch 01/20/18 01/20/18 01/20/18 23:55 Unknown Unknown WBC RBC Hgb Hct MCH RDW Plt Count Lymph % (Auto) [place] % (Auto) Lymph # [place] # Seg Neutrophils % Seg Neuts % (Manual) Lymphocytes % (Manual) Monocytes % (Manual) Eosinophils % (Manual) Nucleated RBC % Seg Neutrophils # Seg Neutrophils # Man Lymphocytes # (Manual) Monocytes # (Manual) PT INR POC ABG pH POC ABG pCO2 POC ABG pO2 VBG pH Sodium Potassium Chloride Carbon Dioxide BUN Creatinine Glucose POC Glucose 149 H Hemoglobin A1c Lactic Acid 2.50 H* Calcium Ionized Calcium Total Bilirubin AST ALT Alkaline Phosphatase C-Reactive Protein Total Protein Albumin Complement C3 47 L Complement C4 Crossmatch 01/20/18 01/21/18 01/21/18 Unknown 00:12 04:27 WBC RBC Hgb Hct MCH RDW Plt Count Lymph % (Auto) [place] % (Auto) Lymph # [place] # Seg Neutrophils % Seg Neuts % (Manual) Lymphocytes % (Manual) Monocytes % (Manual) Eosinophils % (Manual) Nucleated RBC % Seg Neutrophils # Seg Neutrophils # Man Lymphocytes # (Manual) Monocytes # (Manual) PT INR POC ABG pH POC ABG pCO2 33.8 L POC ABG pO2 72 L VBG pH Sodium Potassium Chloride Carbon Dioxide BUN Creatinine Glucose POC Glucose 134 H Hemoglobin A1c Lactic Acid Calcium Ionized Calcium Total Bilirubin AST ALT Alkaline Phosphatase C-Reactive Protein Total Protein Albumin Complement C3 Complement C4 9 L Crossmatch 01/21/18 01/21/18 01/21/18 05:00 05:00 05:00 WBC 21.7 H RBC Hgb Hct MCH 27 L RDW Plt Count 67 L Lymph % (Auto) [place] % (Auto) Lymph # [place] # Seg Neutrophils % Seg Neuts % (Manual) 71.0 H Lymphocytes % (Manual) 9.0 L Monocytes % (Manual) Eosinophils % (Manual) Nucleated RBC % 4.0 H Seg Neutrophils # Seg Neutrophils # Man 15.4 H Lymphocytes # (Manual) Monocytes # (Manual) PT INR POC ABG pH POC ABG pCO2 POC ABG pO2 VBG pH Sodium Potassium Chloride Carbon Dioxide 21 L BUN 71 H Creatinine 4.1 H Glucose 149 H POC Glucose Hemoglobin A1c Lactic Acid 2.10 H* Calcium 7.5 L Ionized Calcium Total Bilirubin AST 494 H ALT 780 H Alkaline Phosphatase 151 H C-Reactive Protein Total Protein 4.9 L Albumin 1.9 L Complement C3 Complement C4 Crossmatch 01/21/18 01/21/18 01/21/18 05:18 12:20 18:07 WBC RBC Hgb Hct MCH RDW Plt Count Lymph % (Auto) [place] % (Auto) Lymph # [place] # Seg Neutrophils % Seg Neuts % (Manual) Lymphocytes % (Manual) Monocytes % (Manual) Eosinophils % (Manual) Nucleated RBC % Seg Neutrophils # Seg Neutrophils # Man Lymphocytes # (Manual) Monocytes # (Manual) PT INR POC ABG pH POC ABG pCO2 POC ABG pO2 VBG pH Sodium Potassium Chloride Carbon Dioxide BUN Creatinine Glucose POC Glucose 132 H 158 H 143 H Hemoglobin A1c Lactic Acid Calcium Ionized Calcium Total Bilirubin AST ALT Alkaline Phosphatase C-Reactive Protein Total Protein Albumin Complement C3 Complement C4 Crossmatch 01/21/18 01/22/18 01/22/18 23:40 03:48 04:10 WBC 24.9 H RBC Hgb Hct MCH 27 L RDW Plt Count 80 L Lymph % (Auto) [place] % (Auto) Lymph # [place] # Seg Neutrophils % Seg Neuts % (Manual) Lymphocytes % (Manual) Monocytes % (Manual) Eosinophils % (Manual) Nucleated RBC % Seg Neutrophils # Seg Neutrophils # Man Lymphocytes # (Manual) Monocytes # (Manual) PT INR POC ABG pH POC ABG pCO2 POC ABG pO2 65 L VBG pH Sodium Potassium Chloride Carbon Dioxide BUN Creatinine Glucose POC Glucose 136 H Hemoglobin A1c Lactic Acid Calcium Ionized Calcium Total Bilirubin AST ALT Alkaline Phosphatase C-Reactive Protein Total Protein Albumin Complement C3 Complement C4 Crossmatch 01/22/18 01/22/18 01/22/18 04:10 05:56 11:30 WBC RBC Hgb Hct MCH RDW Plt Count Lymph % (Auto) [place] % (Auto) Lymph # [place] # Seg Neutrophils % Seg Neuts % (Manual) Lymphocytes % (Manual) Monocytes % (Manual) Eosinophils % (Manual) Nucleated RBC % Seg Neutrophils # Seg Neutrophils # Man Lymphocytes # (Manual) Monocytes # (Manual) PT INR POC ABG pH POC ABG pCO2 POC ABG pO2 VBG pH Sodium Potassium Chloride 97.7 L Carbon Dioxide BUN 72 H Creatinine 3.6 H Glucose 145 H POC Glucose 139 H 156 H Hemoglobin A1c Lactic Acid Calcium 7.3 L Ionized Calcium Total Bilirubin AST 146 H ALT 547 H Alkaline Phosphatase C-Reactive Protein Total Protein 5.2 L Albumin 2.3 L Complement C3 Complement C4 Crossmatch 01/22/18 01/23/18 01/23/18 17:41 00:00 04:39 WBC RBC Hgb Hct MCH RDW Plt Count Lymph % (Auto) [place] % (Auto) Lymph # [place] # Seg Neutrophils % Seg Neuts % (Manual) Lymphocytes % (Manual) Monocytes % (Manual) Eosinophils % (Manual) Nucleated RBC % Seg Neutrophils # Seg Neutrophils # Man Lymphocytes # (Manual) Monocytes # (Manual) PT INR POC ABG pH POC ABG pCO2 31.9 L POC ABG pO2 62 L VBG pH Sodium Potassium Chloride Carbon Dioxide BUN Creatinine Glucose POC Glucose 185 H 150 H Hemoglobin A1c Lactic Acid Calcium Ionized Calcium Total Bilirubin AST ALT Alkaline Phosphatase C-Reactive Protein Total Protein Albumin Complement C3 Complement C4 Crossmatch 01/23/18 01/23/18 01/23/18 05:24 11:38 14:20 WBC RBC Hgb Hct MCH RDW Plt Count Lymph % (Auto) [place] % (Auto) Lymph # [place] # Seg Neutrophils % Seg Neuts % (Manual) Lymphocytes % (Manual) Monocytes % (Manual) Eosinophils % (Manual) Nucleated RBC % Seg Neutrophils # Seg Neutrophils # Man Lymphocytes # (Manual) Monocytes # (Manual) PT INR POC ABG pH POC ABG pCO2 31.4 L POC ABG pO2 55 L VBG pH Sodium Potassium Chloride Carbon Dioxide BUN Creatinine Glucose POC Glucose 215 H 182 H Hemoglobin A1c Lactic Acid Calcium Ionized Calcium Total Bilirubin AST ALT Alkaline Phosphatase C-Reactive Protein Total Protein Albumin Complement C3 Complement C4 Crossmatch 01/23/18 01/24/18 01/24/18 17:26 00:10 03:40 WBC 34.5 H RBC Hgb Hct MCH 27 L RDW Plt Count 130 L Lymph % (Auto) [place] % (Auto) Lymph # [place] # Seg Neutrophils % Seg Neuts % (Manual) Lymphocytes % (Manual) Monocytes % (Manual) Eosinophils % (Manual) Nucleated RBC % Seg Neutrophils # Seg Neutrophils # Man Lymphocytes # (Manual) Monocytes # (Manual) PT INR POC ABG pH POC ABG pCO2 POC ABG pO2 VBG pH Sodium Potassium Chloride Carbon Dioxide BUN Creatinine Glucose POC Glucose 252 H 225 H Hemoglobin A1c Lactic Acid Calcium Ionized Calcium Total Bilirubin AST ALT Alkaline Phosphatase C-Reactive Protein Total Protein Albumin Complement C3 Complement C4 Crossmatch 01/24/18 01/24/18 01/24/18 03:40 06:06 11:36 WBC RBC Hgb Hct MCH RDW Plt Count Lymph % (Auto) [place] % (Auto) Lymph # [place] # Seg Neutrophils % Seg Neuts % (Manual) Lymphocytes % (Manual) Monocytes % (Manual) Eosinophils % (Manual) Nucleated RBC % Seg Neutrophils # Seg Neutrophils # Man Lymphocytes # (Manual) Monocytes # (Manual) PT INR POC ABG pH POC ABG pCO2 POC ABG pO2 VBG pH Sodium Potassium 5.7 H D Chloride 95.6 L Carbon Dioxide 20 L BUN 96 H Creatinine 4.2 H Glucose 166 H POC Glucose 162 H 160 H Hemoglobin A1c Lactic Acid Calcium 7.3 L Ionized Calcium Total Bilirubin AST 52 H ALT 235 H Alkaline Phosphatase C-Reactive Protein Total Protein 5.1 L Albumin 2.5 L Complement C3 Complement C4 Crossmatch 01/24/18 01/24/18 01/25/18 15:08 17:32 00:04 WBC RBC Hgb Hct MCH RDW Plt Count Lymph % (Auto) [place] % (Auto) Lymph # [place] # Seg Neutrophils % Seg Neuts % (Manual) Lymphocytes % (Manual) Monocytes % (Manual) Eosinophils % (Manual) Nucleated RBC % Seg Neutrophils # Seg Neutrophils # Man Lymphocytes # (Manual) Monocytes # (Manual) PT INR POC ABG pH POC ABG pCO2 POC ABG pO2 VBG pH Sodium Potassium Chloride Carbon Dioxide BUN Creatinine Glucose POC Glucose 160 H 169 H Hemoglobin A1c Lactic Acid Calcium Ionized Calcium Total Bilirubin AST ALT Alkaline Phosphatase C-Reactive Protein 3.30 H Total Protein Albumin Complement C3 Complement C4 Crossmatch 01/25/18 01/25/18 01/25/18 04:34 05:25 11:46 WBC RBC Hgb Hct MCH RDW Plt Count Lymph % (Auto) [place] % (Auto) Lymph # [place] # Seg Neutrophils % Seg Neuts % (Manual) Lymphocytes % (Manual) Monocytes % (Manual) Eosinophils % (Manual) Nucleated RBC % Seg Neutrophils # Seg Neutrophils # Man Lymphocytes # (Manual) Monocytes # (Manual) PT INR POC ABG pH 7.342 L POC ABG pCO2 48.7 H POC ABG pO2 VBG pH Sodium Potassium Chloride Carbon Dioxide BUN Creatinine Glucose POC Glucose 133 H 121 H Hemoglobin A1c Lactic Acid Calcium Ionized Calcium Total Bilirubin AST ALT Alkaline Phosphatase C-Reactive Protein Total Protein Albumin Complement C3 Complement C4 Crossmatch 01/25/18 01/25/18 01/26/18 17:42 23:50 04:13 WBC RBC Hgb Hct MCH RDW Plt Count Lymph % (Auto) [place] % (Auto) Lymph # [place] # Seg Neutrophils % Seg Neuts % (Manual) Lymphocytes % (Manual) Monocytes % (Manual) Eosinophils % (Manual) Nucleated RBC % Seg Neutrophils # Seg Neutrophils # Man Lymphocytes # (Manual) Monocytes # (Manual) PT INR POC ABG pH POC ABG pCO2 POC ABG pO2 70 L VBG pH Sodium Potassium Chloride Carbon Dioxide BUN Creatinine Glucose POC Glucose 150 H 149 H Hemoglobin A1c Lactic Acid Calcium Ionized Calcium Total Bilirubin AST ALT Alkaline Phosphatase C-Reactive Protein Total Protein Albumin Complement C3 Complement C4 Crossmatch 01/26/18 01/26/18 01/26/18 05:25 06:20 06:20 WBC 21.0 H RBC Hgb Hct MCH RDW Plt Count Lymph % (Auto) [place] % (Auto) Lymph # [place] # Seg Neutrophils % Seg Neuts % (Manual) 95.0 H Lymphocytes % (Manual) 1.0 L Monocytes % (Manual) Eosinophils % (Manual) Nucleated RBC % Seg Neutrophils # Seg Neutrophils # Man 20.0 H Lymphocytes # (Manual) 0.2 L Monocytes # (Manual) PT INR POC ABG pH POC ABG pCO2 POC ABG pO2 VBG pH Sodium Potassium 5.9 H Chloride 95.7 L Carbon Dioxide BUN 102 H Creatinine 4.6 H Glucose POC Glucose 107 H Hemoglobin A1c Lactic Acid Calcium 6.6 L Ionized Calcium Total Bilirubin AST ALT Alkaline Phosphatase C-Reactive Protein Total Protein Albumin Complement C3 Complement C4 Crossmatch 01/26/18 01/26/18 01/27/18 12:19 18:09 00:17 WBC RBC Hgb Hct MCH RDW Plt Count Lymph % (Auto) [place] % (Auto) Lymph # [place] # Seg Neutrophils % Seg Neuts % (Manual) Lymphocytes % (Manual) Monocytes % (Manual) Eosinophils % (Manual) Nucleated RBC % Seg Neutrophils # Seg Neutrophils # Man Lymphocytes # (Manual) Monocytes # (Manual) PT INR POC ABG pH POC ABG pCO2 POC ABG pO2 VBG pH Sodium Potassium Chloride Carbon Dioxide BUN Creatinine Glucose POC Glucose 151 H 110 H 159 H Hemoglobin A1c Lactic Acid Calcium Ionized Calcium Total Bilirubin AST ALT Alkaline Phosphatase C-Reactive Protein Total Protein Albumin Complement C3 Complement C4 Crossmatch 01/27/18 01/27/18 01/27/18 05:20 05:20 05:43 WBC 23.3 H RBC Hgb Hct MCH 27 L RDW Plt Count Lymph % (Auto) [place] % (Auto) Lymph # [place] # Seg Neutrophils % Seg Neuts % (Manual) 97.0 H Lymphocytes % (Manual) 0 L Monocytes % (Manual) Eosinophils % (Manual) Nucleated RBC % Seg Neutrophils # Seg Neutrophils # Man 22.6 H Lymphocytes # (Manual) 0.0 L Monocytes # (Manual) PT INR POC ABG pH POC ABG pCO2 POC ABG pO2 VBG pH Sodium Potassium 5.7 H Chloride 93.9 L Carbon Dioxide 21 L BUN 121 H Creatinine 5.2 H Glucose 131 H POC Glucose 121 H Hemoglobin A1c Lactic Acid Calcium 6.1 L Ionized Calcium Total Bilirubin AST ALT Alkaline Phosphatase C-Reactive Protein Total Protein Albumin Complement C3 Complement C4 Crossmatch 01/27/18 01/27/18 01/28/18 12:16 17:32 00:05 WBC RBC Hgb Hct MCH RDW Plt Count Lymph % (Auto) [place] % (Auto) Lymph # [place] # Seg Neutrophils % Seg Neuts % (Manual) Lymphocytes % (Manual) Monocytes % (Manual) Eosinophils % (Manual) Nucleated RBC % Seg Neutrophils # Seg Neutrophils # Man Lymphocytes # (Manual) Monocytes # (Manual) PT INR POC ABG pH POC ABG pCO2 POC ABG pO2 VBG pH Sodium Potassium Chloride Carbon Dioxide BUN Creatinine Glucose POC Glucose 161 H 146 H 128 H Hemoglobin A1c Lactic Acid Calcium Ionized Calcium Total Bilirubin AST ALT Alkaline Phosphatase C-Reactive Protein Total Protein Albumin Complement C3 Complement C4 Crossmatch 01/28/18 01/28/18 01/28/18 04:24 05:43 06:30 WBC 24.8 H RBC Hgb Hct MCH RDW Plt Count Lymph % (Auto) [place] % (Auto) Lymph # [place] # Seg Neutrophils % Seg Neuts % (Manual) 91.0 H Lymphocytes % (Manual) 4.0 L Monocytes % (Manual) Eosinophils % (Manual) Nucleated RBC % Seg Neutrophils # Seg Neutrophils # Man 22.6 H Lymphocytes # (Manual) 1.0 L Monocytes # (Manual) 1.0 H PT INR POC ABG pH POC ABG pCO2 POC ABG pO2 77 L VBG pH Sodium Potassium Chloride Carbon Dioxide BUN Creatinine Glucose POC Glucose 137 H Hemoglobin A1c Lactic Acid Calcium Ionized Calcium Total Bilirubin AST ALT Alkaline Phosphatase C-Reactive Protein Total Protein Albumin Complement C3 Complement C4 Crossmatch 01/28/18 01/28/18 01/28/18 06:30 11:30 18:08 WBC RBC Hgb Hct MCH RDW Plt Count Lymph % (Auto) [place] % (Auto) Lymph # [place] # Seg Neutrophils % Seg Neuts % (Manual) Lymphocytes % (Manual) Monocytes % (Manual) Eosinophils % (Manual) Nucleated RBC % Seg Neutrophils # Seg Neutrophils # Man Lymphocytes # (Manual) Monocytes # (Manual) PT INR POC ABG pH POC ABG pCO2 POC ABG pO2 VBG pH Sodium Potassium Chloride 95.2 L Carbon Dioxide BUN 70 H Creatinine 3.7 H Glucose 135 H POC Glucose 183 H 129 H Hemoglobin A1c Lactic Acid Calcium 6.4 L Ionized Calcium Total Bilirubin AST ALT Alkaline Phosphatase C-Reactive Protein Total Protein Albumin Complement C3 Complement C4 Crossmatch 01/29/18 01/29/18 01/29/18 00:00 05:50 06:00 WBC 15.8 H RBC 3.37 L Hgb 9.1 L Hct 28.6 L MCH 27 L RDW Plt Count Lymph % (Auto) [place] % (Auto) Lymph # [place] # Seg Neutrophils % Seg Neuts % (Manual) 87.0 H Lymphocytes % (Manual) 7.0 L Monocytes % (Manual) Eosinophils % (Manual) Nucleated RBC % Seg Neutrophils # Seg Neutrophils # Man 13.7 H Lymphocytes # (Manual) 1.1 L Monocytes # (Manual) PT INR POC ABG pH POC ABG pCO2 POC ABG pO2 VBG pH Sodium Potassium Chloride Carbon Dioxide BUN Creatinine Glucose POC Glucose 111 H 120 H Hemoglobin A1c Lactic Acid Calcium Ionized Calcium Total Bilirubin AST ALT Alkaline Phosphatase C-Reactive Protein Total Protein Albumin Complement C3 Complement C4 Crossmatch 01/29/18 01/29/18 01/29/18 06:00 06:00 12:29 WBC RBC Hgb Hct MCH RDW Plt Count Lymph % (Auto) [place] % (Auto) Lymph # [place] # Seg Neutrophils % Seg Neuts % (Manual) Lymphocytes % (Manual) Monocytes % (Manual) Eosinophils % (Manual) Nucleated RBC % Seg Neutrophils # Seg Neutrophils # Man Lymphocytes # (Manual) Monocytes # (Manual) PT INR POC ABG pH POC ABG pCO2 POC ABG pO2 VBG pH Sodium 136 L Potassium Chloride 95.4 L Carbon Dioxide BUN 94 H Creatinine 4.2 H Glucose 120 H POC Glucose 134 H Hemoglobin A1c Lactic Acid Calcium 6.5 L Ionized Calcium 3.9 L Total Bilirubin AST ALT Alkaline Phosphatase C-Reactive Protein Total Protein 4.5 L Albumin 2.0 L Complement C3 Complement C4 Crossmatch 01/29/18 01/30/18 01/30/18 18:32 00:12 04:47 WBC RBC Hgb Hct MCH RDW Plt Count Lymph % (Auto) [place] % (Auto) Lymph # [place] # Seg Neutrophils % Seg Neuts % (Manual) Lymphocytes % (Manual) Monocytes % (Manual) Eosinophils % (Manual) Nucleated RBC % Seg Neutrophils # Seg Neutrophils # Man Lymphocytes # (Manual) Monocytes # (Manual) PT INR POC ABG pH 7.456 H POC ABG pCO2 POC ABG pO2 VBG pH Sodium Potassium Chloride Carbon Dioxide BUN Creatinine Glucose POC Glucose 158 H 155 H Hemoglobin A1c Lactic Acid Calcium Ionized Calcium Total Bilirubin AST ALT Alkaline Phosphatase C-Reactive Protein Total Protein Albumin Complement C3 Complement C4 Crossmatch 01/30/18 01/30/18 01/30/18 12:06 17:46 Unknown WBC 12.8 H RBC 3.09 L Hgb 8.4 L Hct 26.2 L MCH 27 L RDW Plt Count Lymph % (Auto) [place] % (Auto) Lymph # [place] # Seg Neutrophils % Seg Neuts % (Manual) 95.0 H Lymphocytes % (Manual) 1.0 L Monocytes % (Manual) Eosinophils % (Manual) Nucleated RBC % Seg Neutrophils # Seg Neutrophils # Man 12.2 H Lymphocytes # (Manual) 0.1 L Monocytes # (Manual) PT INR POC ABG pH POC ABG pCO2 POC ABG pO2 VBG pH Sodium Potassium Chloride Carbon Dioxide BUN Creatinine Glucose POC Glucose 117 H 166 H Hemoglobin A1c Lactic Acid Calcium Ionized Calcium Total Bilirubin AST ALT Alkaline Phosphatase C-Reactive Protein Total Protein Albumin Complement C3 Complement C4 Crossmatch 01/30/18 01/31/18 01/31/18 Unknown 00:04 04:50 WBC 13.6 H RBC 3.53 L Hgb 9.8 L Hct 30.0 L MCH RDW 15.4 H Plt Count Lymph % (Auto) 3.6 L [place] % (Auto) 8.7 H Lymph # 0.5 L [place] # 1.2 H Seg Neutrophils % 87.1 H Seg Neuts % (Manual) Lymphocytes % (Manual) Monocytes % (Manual) Eosinophils % (Manual) Nucleated RBC % Seg Neutrophils # 11.8 H Seg Neutrophils # Man Lymphocytes # (Manual) Monocytes # (Manual) PT INR POC ABG pH POC ABG pCO2 POC ABG pO2 VBG pH Sodium Potassium Chloride Carbon Dioxide BUN 52 H Creatinine 2.9 H Glucose 105 H POC Glucose 155 H Hemoglobin A1c Lactic Acid Calcium 6.7 L Ionized Calcium Total Bilirubin AST ALT Alkaline Phosphatase C-Reactive Protein Total Protein Albumin Complement C3 Complement C4 Crossmatch 01/31/18 01/31/18 01/31/18 04:50 17:08 23:38 WBC RBC Hgb Hct MCH RDW Plt Count Lymph % (Auto) [place] % (Auto) Lymph # [place] # Seg Neutrophils % Seg Neuts % (Manual) Lymphocytes % (Manual) Monocytes % (Manual) Eosinophils % (Manual) Nucleated RBC % Seg Neutrophils # Seg Neutrophils # Man Lymphocytes # (Manual) Monocytes # (Manual) PT INR POC ABG pH POC ABG pCO2 POC ABG pO2 VBG pH Sodium Potassium Chloride Carbon Dioxide BUN 70 H Creatinine 3.3 H Glucose 102 H POC Glucose 106 H 136 H Hemoglobin A1c Lactic Acid Calcium 7.1 L Ionized Calcium Total Bilirubin AST ALT Alkaline Phosphatase C-Reactive Protein Total Protein Albumin Complement C3 Complement C4 Crossmatch 02/01/18 02/01/18 02/01/18 04:00 04:00 05:25 WBC RBC 3.16 L Hgb 8.7 L Hct 27.5 L MCH RDW Plt Count Lymph % (Auto) 6.4 L [place] % (Auto) 10.2 H Lymph # 0.7 L [place] # 1.1 H Seg Neutrophils % 81.7 H Seg Neuts % (Manual) Lymphocytes % (Manual) Monocytes % (Manual) Eosinophils % (Manual) Nucleated RBC % Seg Neutrophils # 8.6 H Seg Neutrophils # Man Lymphocytes # (Manual) Monocytes # (Manual) PT INR POC ABG pH POC ABG pCO2 POC ABG pO2 VBG pH Sodium Potassium 3.4 L Chloride Carbon Dioxide 31 H BUN 42 H Creatinine 2.2 H Glucose 101 H POC Glucose 163 H Hemoglobin A1c Lactic Acid Calcium 7.1 L Ionized Calcium Total Bilirubin AST ALT Alkaline Phosphatase C-Reactive Protein Total Protein Albumin Complement C3 Complement C4 Crossmatch 02/01/18 02/01/18 02/01/18 11:54 18:21 23:34 WBC RBC Hgb Hct MCH RDW Plt Count Lymph % (Auto) [place] % (Auto) Lymph # [place] # Seg Neutrophils % Seg Neuts % (Manual) Lymphocytes % (Manual) Monocytes % (Manual) Eosinophils % (Manual) Nucleated RBC % Seg Neutrophils # Seg Neutrophils # Man Lymphocytes # (Manual) Monocytes # (Manual) PT INR POC ABG pH POC ABG pCO2 POC ABG pO2 VBG pH Sodium Potassium Chloride Carbon Dioxide BUN Creatinine Glucose POC Glucose 123 H 157 H 114 H Hemoglobin A1c Lactic Acid Calcium Ionized Calcium Total Bilirubin AST ALT Alkaline Phosphatase C-Reactive Protein Total Protein Albumin Complement C3 Complement C4 Crossmatch 02/02/18 02/02/18 02/02/18 03:30 05:45 17:27 WBC RBC Hgb Hct MCH RDW Plt Count Lymph % (Auto) [place] % (Auto) Lymph # [place] # Seg Neutrophils % Seg Neuts % (Manual) Lymphocytes % (Manual) Monocytes % (Manual) Eosinophils % (Manual) Nucleated RBC % Seg Neutrophils # Seg Neutrophils # Man Lymphocytes # (Manual) Monocytes # (Manual) PT INR POC ABG pH POC ABG pCO2 POC ABG pO2 VBG pH Sodium Potassium 3.3 L Chloride 97.8 L Carbon Dioxide BUN 58 H Creatinine 2.7 H Glucose 111 H POC Glucose 110 H 125 H Hemoglobin A1c Lactic Acid Calcium 7.1 L Ionized Calcium Total Bilirubin AST ALT Alkaline Phosphatase C-Reactive Protein Total Protein Albumin Complement C3 Complement C4 Crossmatch 02/02/18 02/03/18 02/03/18 23:34 04:45 05:38 WBC RBC Hgb Hct MCH RDW Plt Count Lymph % (Auto) [place] % (Auto) Lymph # [place] # Seg Neutrophils % Seg Neuts % (Manual) Lymphocytes % (Manual) Monocytes % (Manual) Eosinophils % (Manual) Nucleated RBC % Seg Neutrophils # Seg Neutrophils # Man Lymphocytes # (Manual) Monocytes # (Manual) PT INR POC ABG pH POC ABG pCO2 POC ABG pO2 VBG pH Sodium Potassium Chloride Carbon Dioxide BUN 72 H Creatinine 3.2 H Glucose POC Glucose 153 H 111 H Hemoglobin A1c Lactic Acid Calcium 7.6 L Ionized Calcium Total Bilirubin AST ALT Alkaline Phosphatase C-Reactive Protein Total Protein Albumin Complement C3 Complement C4 Crossmatch 02/03/18 02/03/18 02/03/18 11:36 18:26 22:45 WBC RBC Hgb Hct MCH RDW Plt Count Lymph % (Auto) [place] % (Auto) Lymph # [place] # Seg Neutrophils % Seg Neuts % (Manual) Lymphocytes % (Manual) Monocytes % (Manual) Eosinophils % (Manual) Nucleated RBC % Seg Neutrophils # Seg Neutrophils # Man Lymphocytes # (Manual) Monocytes # (Manual) PT INR POC ABG pH POC ABG pCO2 POC ABG pO2 VBG pH Sodium Potassium Chloride Carbon Dioxide BUN Creatinine Glucose POC Glucose 108 H 155 H 141 H Hemoglobin A1c Lactic Acid Calcium Ionized Calcium Total Bilirubin AST ALT Alkaline Phosphatase C-Reactive Protein Total Protein Albumin Complement C3 Complement C4 Crossmatch 02/04/18 02/04/18 02/04/18 04:06 11:57 15:05 WBC RBC Hgb Hct MCH RDW Plt Count Lymph % (Auto) [place] % (Auto) Lymph # [place] # Seg Neutrophils % Seg Neuts % (Manual) Lymphocytes % (Manual) Monocytes % (Manual) Eosinophils % (Manual) Nucleated RBC % Seg Neutrophils # Seg Neutrophils # Man Lymphocytes # (Manual) Monocytes # (Manual) PT INR POC ABG pH POC ABG pCO2 POC ABG pO2 109 H VBG pH Sodium 136 L Potassium 3.4 L Chloride 96.7 L Carbon Dioxide BUN 42 H Creatinine 1.9 H Glucose POC Glucose 119 H Hemoglobin A1c Lactic Acid Calcium 7.3 L Ionized Calcium Total Bilirubin AST ALT Alkaline Phosphatase C-Reactive Protein Total Protein Albumin Complement C3 Complement C4 Crossmatch 02/05/18 02/05/18 02/05/18 04:10 05:04 18:02 WBC RBC Hgb Hct MCH RDW Plt Count Lymph % (Auto) [place] % (Auto) Lymph # [place] # Seg Neutrophils % Seg Neuts % (Manual) Lymphocytes % (Manual) Monocytes % (Manual) Eosinophils % (Manual) Nucleated RBC % Seg Neutrophils # Seg Neutrophils # Man Lymphocytes # (Manual) Monocytes # (Manual) PT INR POC ABG pH POC ABG pCO2 POC ABG pO2 VBG pH Sodium Potassium 3.5 L Chloride Carbon Dioxide BUN 52 H Creatinine 2.2 H Glucose POC Glucose 108 H 124 H Hemoglobin A1c Lactic Acid Calcium 7.5 L Ionized Calcium Total Bilirubin AST ALT Alkaline Phosphatase C-Reactive Protein Total Protein Albumin Complement C3 Complement C4 Crossmatch 02/06/18 02/06/18 02/06/18 05:38 07:52 07:52 WBC RBC 2.91 L Hgb 8.1 L Hct 24.6 L MCH RDW Plt Count Lymph % (Auto) 11.2 L [place] % (Auto) 8.5 H Lymph # 0.6 L [place] # Seg Neutrophils % 76.9 H Seg Neuts % (Manual) Lymphocytes % (Manual) Monocytes % (Manual) Eosinophils % (Manual) Nucleated RBC % Seg Neutrophils # Seg Neutrophils # Man Lymphocytes # (Manual) Monocytes # (Manual) PT INR POC ABG pH POC ABG pCO2 POC ABG pO2 VBG pH Sodium Potassium 3.2 L Chloride Carbon Dioxide BUN 37 H Creatinine 1.6 H Glucose 109 H POC Glucose 119 H Hemoglobin A1c Lactic Acid Calcium 8.1 L Ionized Calcium Total Bilirubin AST ALT Alkaline Phosphatase C-Reactive Protein Total Protein Albumin Complement C3 Complement C4 Crossmatch 02/06/18 02/06/18 02/07/18 12:14 17:20 07:45 WBC RBC 2.61 L Hgb 7.4 L Hct 22.7 L MCH RDW Plt Count Lymph % (Auto) [place] % (Auto) Lymph # [place] # Seg Neutrophils % Seg Neuts % (Manual) Lymphocytes % (Manual) Monocytes % (Manual) Eosinophils % (Manual) Nucleated RBC % Seg Neutrophils # Seg Neutrophils # Man Lymphocytes # (Manual) Monocytes # (Manual) PT INR POC ABG pH POC ABG pCO2 POC ABG pO2 VBG pH Sodium Potassium Chloride Carbon Dioxide BUN Creatinine Glucose POC Glucose 109 H 106 H Hemoglobin A1c Lactic Acid Calcium Ionized Calcium Total Bilirubin AST ALT Alkaline Phosphatase C-Reactive Protein Total Protein Albumin Complement C3 Complement C4 Crossmatch 02/07/18 02/08/18 02/08/18 07:45 08:16 08:16 WBC 3.7 L RBC 2.49 L Hgb 7.0 L Hct 21.5 L MCH RDW Plt Count Lymph % (Auto) [place] % (Auto) Lymph # [place] # Seg Neutrophils % Seg Neuts % (Manual) Lymphocytes % (Manual) Monocytes % (Manual) Eosinophils % (Manual) Nucleated RBC % Seg Neutrophils # Seg Neutrophils # Man Lymphocytes # (Manual) Monocytes # (Manual) PT INR POC ABG pH POC ABG pCO2 POC ABG pO2 VBG pH Sodium Potassium Chloride Carbon Dioxide BUN 48 H 52 H Creatinine 2.1 H 2.0 H Glucose POC Glucose Hemoglobin A1c Lactic Acid Calcium 8.1 L 8.3 L Ionized Calcium Total Bilirubin AST ALT Alkaline Phosphatase C-Reactive Protein Total Protein Albumin Complement C3 Complement C4 Crossmatch 02/08/18 02/09/18 02/09/18 16:35 00:19 05:31 WBC 3.7 L RBC 2.38 L Hgb 6.8 L Hct 20.3 L MCH RDW Plt Count Lymph % (Auto) [place] % (Auto) Lymph # [place] # Seg Neutrophils % Seg Neuts % (Manual) Lymphocytes % (Manual) Monocytes % (Manual) Eosinophils % (Manual) Nucleated RBC % Seg Neutrophils # Seg Neutrophils # Man Lymphocytes # (Manual) Monocytes # (Manual) PT INR POC ABG pH POC ABG pCO2 POC ABG pO2 VBG pH Sodium Potassium Chloride Carbon Dioxide BUN Creatinine Glucose POC Glucose 121 H 171 H Hemoglobin A1c Lactic Acid Calcium Ionized Calcium Total Bilirubin AST ALT Alkaline Phosphatase C-Reactive Protein Total Protein Albumin Complement C3 Complement C4 Crossmatch 02/09/18 02/09/18 02/10/18 05:31 17:17 00:16 WBC RBC Hgb Hct MCH RDW Plt Count Lymph % (Auto) [place] % (Auto) Lymph # [place] # Seg Neutrophils % Seg Neuts % (Manual) Lymphocytes % (Manual) Monocytes % (Manual) Eosinophils % (Manual) Nucleated RBC % Seg Neutrophils # Seg Neutrophils # Man Lymphocytes # (Manual) Monocytes # (Manual) PT INR POC ABG pH POC ABG pCO2 POC ABG pO2 VBG pH Sodium 146 H Potassium Chloride Carbon Dioxide BUN 48 H Creatinine 1.7 H Glucose POC Glucose 121 H 162 H Hemoglobin A1c Lactic Acid Calcium 8.0 L Ionized Calcium Total Bilirubin AST ALT Alkaline Phosphatase C-Reactive Protein Total Protein Albumin Complement C3 Complement C4 Crossmatch 02/10/18 02/10/18 02/10/18 11:58 17:04 17:58 WBC RBC Hgb Hct MCH RDW Plt Count Lymph % (Auto) [place] % (Auto) Lymph # [place] # Seg Neutrophils % Seg Neuts % (Manual) Lymphocytes % (Manual) Monocytes % (Manual) Eosinophils % (Manual) Nucleated RBC % Seg Neutrophils # Seg Neutrophils # Man Lymphocytes # (Manual) Monocytes # (Manual) PT INR POC ABG pH POC ABG pCO2 POC ABG pO2 VBG pH Sodium Potassium Chloride Carbon Dioxide BUN Creatinine Glucose POC Glucose 151 H 131 H Hemoglobin A1c Lactic Acid Calcium Ionized Calcium Total Bilirubin AST ALT Alkaline Phosphatase C-Reactive Protein Total Protein Albumin Complement C3 Complement C4 Crossmatch See Detail 02/11/18 02/11/18 02/11/18 00:08 07:40 07:40 WBC 4.3 L RBC 2.84 L Hgb 7.9 L Hct 24.6 L MCH RDW Plt Count Lymph % (Auto) [place] % (Auto) Lymph # [place] # Seg Neutrophils % Seg Neuts % (Manual) Lymphocytes % (Manual) Monocytes % (Manual) Eosinophils % (Manual) Nucleated RBC % Seg Neutrophils # Seg Neutrophils # Man Lymphocytes # (Manual) Monocytes # (Manual) PT INR POC ABG pH POC ABG pCO2 POC ABG pO2 VBG pH Sodium 150 H Potassium Chloride 109.5 H Carbon Dioxide BUN 35 H Creatinine Glucose POC Glucose 113 H Hemoglobin A1c Lactic Acid Calcium Ionized Calcium Total Bilirubin AST ALT Alkaline Phosphatase C-Reactive Protein Total Protein Albumin Complement C3 Complement C4 Crossmatch 02/11/18 02/11/18 02/12/18 12:36 17:37 06:09 WBC RBC Hgb Hct MCH RDW Plt Count Lymph % (Auto) [place] % (Auto) Lymph # [place] # Seg Neutrophils % Seg Neuts % (Manual) Lymphocytes % (Manual) Monocytes % (Manual) Eosinophils % (Manual) Nucleated RBC % Seg Neutrophils # Seg Neutrophils # Man Lymphocytes # (Manual) Monocytes # (Manual) PT INR POC ABG pH POC ABG pCO2 POC ABG pO2 VBG pH Sodium Potassium Chloride Carbon Dioxide BUN 28 H Creatinine Glucose POC Glucose 138 H 205 H Hemoglobin A1c Lactic Acid Calcium 8.0 L Ionized Calcium Total Bilirubin AST ALT Alkaline Phosphatase C-Reactive Protein Total Protein Albumin Complement C3 Complement C4 Crossmatch 02/12/18 02/12/18 02/12/18 06:09 13:06 16:53 WBC 4.0 L RBC 2.92 L Hgb 8.2 L Hct 25.5 L MCH RDW Plt Count Lymph % (Auto) [place] % (Auto) Lymph # [place] # Seg Neutrophils % Seg Neuts % (Manual) 71.0 H Lymphocytes % (Manual) Monocytes % (Manual) Eosinophils % (Manual) 5.0 H Nucleated RBC % Seg Neutrophils # Seg Neutrophils # Man Lymphocytes # (Manual) 0.7 L Monocytes # (Manual) PT INR POC ABG pH POC ABG pCO2 POC ABG pO2 VBG pH Sodium Potassium Chloride Carbon Dioxide BUN Creatinine Glucose POC Glucose 132 H 146 H Hemoglobin A1c Lactic Acid Calcium Ionized Calcium Total Bilirubin AST ALT Alkaline Phosphatase C-Reactive Protein Total Protein Albumin Complement C3 Complement C4 Crossmatch 02/13/18 02/13/18 02/13/18 01:23 04:36 12:45 WBC RBC Hgb Hct MCH RDW Plt Count Lymph % (Auto) [place] % (Auto) Lymph # [place] # Seg Neutrophils % Seg Neuts % (Manual) Lymphocytes % (Manual) Monocytes % (Manual) Eosinophils % (Manual) Nucleated RBC % Seg Neutrophils # Seg Neutrophils # Man Lymphocytes # (Manual) Monocytes # (Manual) PT INR POC ABG pH POC ABG pCO2 POC ABG pO2 VBG pH Sodium Potassium 3.3 L Chloride Carbon Dioxide BUN 25 H Creatinine Glucose POC Glucose 108 H 116 H Hemoglobin A1c Lactic Acid Calcium 8.0 L Ionized Calcium Total Bilirubin AST ALT Alkaline Phosphatase C-Reactive Protein Total Protein Albumin Complement C3 Complement C4 Crossmatch Chest x-ray: image reviewed (Left pleural effusion improved.) Allied health notes reviewed: nursing
[2018-02-13] MEDS: APRESOLINE IV PRN (21:27)
[2018-02-14] MEDS: PEPCID PO SCH ×2 (06:00→09:49)
[2018-02-14] MEDS: DILAUDID IV PRN ×3 (06:01→16:43)
[2018-02-14 06:46] LABS: BUN/Creatinine Ratio 22; Blood Urea Nitrogen 20 mg/dL (7-17); Calcium 7.9 mg/dL (8.4-10.2); Hemolysis Index 5
[2018-02-14] MEDS: PULMICORT IH SCH ×2 (08:35→21:01)
[2018-02-14] MEDS: BROVANA NEBU IH SCH ×2 (08:35→21:01)
[2018-02-14] MEDS: REGLAN IV PRN ×2 (11:33→17:43)
--- NOTE | 2018-02-14 11:38 | Progress Note ---
Assessment and Plan Assessment and plan: -Acute combined respiratory failure on ventilator greater than 96 hours status post extubation: Resolving, still with oxygen via nasal cannula -Septic shock, resolved, s/p vasopressors -Acute on chronic combined heart failure improved, Cardiology has signed off -Large left pleural effusion status post left chest tube. Chest tube removal per interventional radiology today. -Acute renal failure due to ATN present on admission, improved. Patient previously on hemodialysis which now is on hold. -Acute toxic metabolic encephalopathy, POA. Resolved. 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 -Pelvic masses, ?incidental findings. ENV[employer]MENT[employer] TECH follow-up. -DVT prophylaxis: sq heparin -Disposition. NHP History Interval history: 62-year-old admitted with hx of htn, polysubstance drug abuse per family, admitted after she was found unresponsive found in the bathroom of a friends home, noted with severe lactic acidosis, hypotensive on vasopressors, hypercapenic respiratory failure requiring intubation. Patient now extubated and has been transferred to the floor. Hospitalist Physical - Constitutional Vitals: Temp Pulse Resp BP Pulse Ox 98.6 F 98 H 22 145/86 95 02/14/18 01:30 02/14/18 05:19 02/14/18 05:19 02/14/18 05:19 02/14/18 05:19 General appearance: Present: no acute distress - EENT Eyes: Present: PERRL, EOM intact ENT: hearing intact, clear oral mucosa, dentition normal - Neck Neck: Present: supple, normal ROM - Respiratory Respiratory effort: normal Respiratory: bilateral: CTA - Cardiovascular Rhythm: regular Heart Sounds: Present: S1 & S2. Absent: gallop, rub - Extremities Extremities: no ischemia, No edema, Full ROM - Abdominal General gastrointestinal: soft, non-tender, non-distended, normal bowel sounds - Integumentary Integumentary: Present: clear, warm, dry - Neurologic Neurologic: CNII-XII intact, moves all extremities Results - Labs CBC & Chem 7: 02/12/18 06:09 02/14/18 06:04 Labs: Laboratory Last Values WBC 4.0 K/mm3 (4.5-11.0) L 02/12/18 06:09 RBC 2.92 M/mm3 (3.65-5.03) L 02/12/18 06:09 Hgb 8.2 gm/dl (10.1-14.3) L 02/12/18 06:09 Hct 25.5 % (30.3-42.9) L 02/12/18 06:09 MCV 88 fl (79-97) 02/12/18 06:09 MCH 28 pg (28-32) 02/12/18 06:09 MCHC 32 % (30-34) 02/12/18 06:09 RDW 14.5 % (13.2-15.2) 02/12/18 06:09 Plt Count 296 K/mm3 (140-440) 02/12/18 06:09 Lymph % (Auto) 11.2 % (13.4-35.0) L 02/06/18 07:52 Sanders % (Auto) 8.5 % (0.0-7.3) H 02/06/18 07:52 Eos % (Auto) 2.7 % (0.0-4.3) 02/06/18 07:52 Baso % (Auto) 0.7 % (0.0-1.8) 02/06/18 07:52 Lymph # 0.6 K/mm3 (1.2-5.4) L 02/06/18 07:52 Sanders # 0.5 K/mm3 (0.0-0.8) 02/06/18 07:52 Eos # 0.2 K/mm3 (0.0-0.4) 02/06/18 07:52 Baso # 0.0 K/mm3 (0.0-0.1) 02/06/18 07:52 Add Manual Diff Complete 02/12/18 06:09 Total Counted 100 02/12/18 06:09 Seg Neutrophils % 76.9 % (40.0-70.0) H 02/06/18 07:52 Seg Neuts % (Manual) 71.0 % (40.0-70.0) H 02/12/18 06:09 Band Neutrophils % 1.0 % 02/12/18 06:09 Lymphocytes % (Manual) 17.0 % (13.4-35.0) 02/12/18 06:09 Reactive Lymphs % (Man) 1.0 % 02/12/18 06:09 Monocytes % (Manual) 5.0 % (0.0-7.3) 02/12/18 06:09 Eosinophils % (Manual) 5.0 % (0.0-4.3) H 02/12/18 06:09 Basophils % (Manual) 0 % (0.0-1.8) 02/12/18 06:09 Metamyelocytes % 0 % 02/12/18 06:09 Myelocytes % 0 % 02/12/18 06:09 Promyelocytes % 0 % 02/12/18 06:09 Blast Cells % 0 % 02/12/18 06:09 Nucleated RBC % Not Reportable 02/12/18 06:09 Seg Neutrophils # 4.3 K/mm3 (1.8-7.7) 02/06/18 07:52 Seg Neutrophils # Man 2.8 K/mm3 (1.8-7.7) 02/12/18 06:09 Band Neutrophils # 0.0 K/mm3 02/12/18 06:09 Lymphocytes # (Manual) 0.7 K/mm3 (1.2-5.4) L 02/12/18 06:09 Abs React Lymphs (Man) 0.0 K/mm3 02/12/18 06:09 Monocytes # (Manual) 0.2 K/mm3 (0.0-0.8) 02/12/18 06:09 Eosinophils # (Manual) 0.2 K/mm3 (0.0-0.4) 02/12/18 06:09 Basophils # (Manual) 0.0 K/mm3 (0.0-0.1) 02/12/18 06:09 Metamyelocytes # 0.0 K/mm3 02/12/18 06:09 Myelocytes # 0.0 K/mm3 02/12/18 06:09 Promyelocytes # 0.0 K/mm3 02/12/18 06:09 Blast Cells # 0.0 K/mm3 02/12/18 06:09 WBC Morphology Not Reportable 02/12/18 06:09 Hypersegmented Neuts Not Reportable 02/12/18 06:09 Hyposegmented Neuts Not Reportable 02/12/18 06:09 Hypogranular Neuts Not Reportable 02/12/18 06:09 Smudge Cells Not Reportable 02/12/18 06:09 Toxic Granulation Not Reportable 02/12/18 06:09 Toxic Vacuolation Not Reportable 02/12/18 06:09 Dohle Bodies Not Reportable 02/12/18 06:09 Pelger-Huet Anomaly Not Reportable 02/12/18 06:09 Opal Rods Not Reportable 02/12/18 06:09 Platelet Estimate Cons 02/12/18 06:09 Clumped Platelets Not Reportable 02/12/18 06:09 Plt Clumps, EDTA Not Reportable 02/12/18 06:09 Large Platelets Not Reportable 02/12/18 06:09 Giant Platelets Not Reportable 02/12/18 06:09 Platelet Satelliting Not Reportable 02/12/18 06:09 Plt Morphology Comment Not Reportable 02/12/18 06:09 RBC Morphology Not Reportable 02/12/18 06:09 Dimorphic RBCs Not Reportable 02/12/18 06:09 Polychromasia Not Reportable 02/12/18 06:09 Hypochromasia Not Reportable 02/12/18 06:09 Poikilocytosis Not Reportable 02/12/18 06:09 Anisocytosis 1+ 02/12/18 06:09 Microcytosis Not Reportable 02/12/18 06:09 Macrocytosis Not Reportable 02/12/18 06:09 Spherocytes Not Reportable 02/12/18 06:09 Pappenheimer Bodies Not Reportable 02/12/18 06:09 Sickle Cells Not Reportable 02/12/18 06:09 Target Cells Not Reportable 02/12/18 06:09 Tear Drop Cells Not Reportable 02/12/18 06:09 Ovalocytes Not Reportable 02/12/18 06:09 Stomatocytes 1+ 02/12/18 06:09 Helmet Cells Not Reportable 02/12/18 06:09 [place] Bodies Not Reportable 02/12/18 06:09 [place] Rings Not Reportable 02/12/18 06:09 Jaclyn Cells Not Reportable 02/12/18 06:09 Bite Cells Not Reportable 02/12/18 06:09 Crenated Cell Not Reportable 02/12/18 06:09 Elliptocytes Not Reportable 02/12/18 06:09 Acanthocytes (Spur) Not Reportable 02/12/18 06:09 Rouleaux Not Reportable 02/12/18 06:09 Hemoglobin C Crystals Not Reportable 02/12/18 06:09 Schistocytes Not Reportable 02/12/18 06:09 Malaria parasites Not Reportable 02/12/18 06:09 Brock Bodies Not Reportable 02/12/18 06:09 Hem Pathologist Commnt No 02/12/18 06:09 PT 17.5 Sec. (12.2-14.9) H 01/20/18 07:00 INR 1.35 (0.87-1.13) H 01/20/18 07:00 Heparin Anti-Xa, Unfract Negative (Negative) 01/20/18 11:03 POC ABG pH 7.441 (7.35-7.45) 02/04/18 15:05 POC ABG pCO2 43.6 (35-45) 02/04/18 15:05 POC ABG pO2 109 (80-105) H 02/04/18 15:05 POC ABG HCO3 29.7 02/04/18 15:05 POC ABG Total CO2 31 02/04/18 15:05 POC ABG O2 Sat 98 02/04/18 15:05 POC ABG Base Excess 6 02/04/18 15:05 VBG pH 7.273 (7.320-7.420) L 01/17/18 16:54 FiO2 35 % 02/04/18 15:05 Sodium 142 mmol/L (137-145) 02/14/18 06:04 Potassium 3.4 mmol/L (3.6-5.0) L 02/14/18 06:04 Chloride 103.0 mmol/L (98-107) 02/14/18 06:04 Carbon Dioxide 25 mmol/L (22-30) 02/14/18 06:04 Anion Gap 17 mmol/L 02/14/18 06:04 BUN 20 mg/dL (7-17) H 02/14/18 06:04 Creatinine 0.9 mg/dL (0.7-1.2) 02/14/18 06:04 Estimated GFR > 60 ml/min 02/14/18 06:04 BUN/Creatinine Ratio 22 % 02/14/18 06:04 Glucose 91 mg/dL (65-100) 02/14/18 06:04 POC Glucose 120 (70-105) H 02/14/18 00:16 Hemoglobin A1c 9.0 % (4-6) H 01/17/18 22:36 Lactic Acid 1.40 mmol/L (0.7-2.0) 01/24/18 15:08 Calcium 7.9 mg/dL (8.4-10.2) L 02/14/18 06:04 Ionized Calcium 3.9 mg/dL (4.8-5.6) L 01/29/18 06:00 Magnesium 1.80 mg/dL (1.7-2.3) 01/29/18 06:00 Total Bilirubin 0.50 mg/dL (0.1-1.2) 01/29/18 06:00 AST 21 units/L (5-40) 01/29/18 06:00 ALT 53 units/L (7-56) 01/29/18 06:00 Alkaline Phosphatase 88 units/L (35-129) 01/29/18 06:00 C-Reactive Protein 3.30 mg/dL (0.00-1.30) H 01/24/18 15:08 Total Protein 4.5 g/dL (6.3-8.2) L 01/29/18 06:00 Albumin 2.0 g/dL (3.9-5) L 01/29/18 06:00 Albumin/Globulin Ratio 0.8 % 01/29/18 06:00 Serotonin Release Assay See scanned report 01/20/18 11:03 Random Vancomycin 19.8 ug/mL (0-40.0) 01/27/18 05:20 ALISA Screen Negative (Negative) 01/20/18 Unknown Heparin-induced Plt Ab Negative (Negative) 01/20/18 11:03 UF Heparin High Dose 0 % Release 01/20/18 11:03 NEGRITA UFH Low Dose 0.1 0 % Release 01/20/18 11:03 NEGRITA UFH Low Dose 0.5 0 % Release 01/20/18 11:03 Complement C3 47 mg/dL (83-193) L 01/20/18 Unknown Complement C4 9 mg/dL (15-57) L 01/20/18 Unknown Hepatitis A IgM Ab Non-reactive (NonReactive) 01/20/18 07:00 Hep Bs Antigen Non-reactive (Negative) 01/20/18 07:00 Hep B Core IgM Ab Non-reactive (NonReactive) 01/20/18 07:00 Hepatitis C Antibody Non-reactive (NonReactive) 01/20/18 07:00 HIV 1&2 Antibody Rapid Non react (Non React) 01/20/18 Unknown HIV P24 Antigen Non react (Non React) 01/20/18 Unknown Blood Type B NEGATIVE 02/10/18 17:04 Antibody Screen Negative 02/10/18 17:04 Crossmatch See Detail 02/10/18 17:04
--- NOTE | 2018-02-14 13:32 | Progress Note ---
Subjective Date of service: 02/14/18 Principal diagnosis: anemia Objective - Vital Signs Vital signs: Vital Signs - 12hr 02/14/18 02/14/18 05:19 10:00 Pulse Rate 98 H 100 H Pulse Rate [ 100 H Apical] Respiratory 22 20 Rate Blood Pressure 145/86 O2 Sat by Pulse 95 96 Oximetry - Lab 02/12/18 06:09 02/14/18 06:04 Most recent lab results Calcium 7.9 mg/dL (8.4-10.2) L 02/14/18 06:04 Magnesium 1.80 mg/dL (1.7-2.3) 01/29/18 06:00
--- NOTE | 2018-02-14 15:23 | Operative Report ---
Operative Report Operative Report: EXAM: CHEST TUBE REMOVAL CLINICAL INDICATION: CHEST TUBE NO LONGER NEEDED DATE: 02/14/2018 PROCEDURE: Following an explanation of the risks, benefits and alternatives; informed consent was obtained. The procedure was performed at bedside in the patient's room. Patient's indwelling left chest tube sutures were cut. The catheter was cut to release the pigtail and the chest tube removed intact. A sterile hemostatic dressing was then applied. Patient tolerated the procedure well. There were no immediate post procedure complications Post procedure chest x-ray was ordered IMPRESSION: 1) Chest tube removal
--- NOTE | 2018-02-14 15:25 | Progress Note ---
Assessment and Plan Impression: * Acute kidney injury secondary to ATN - on hemodialysis * Acute respiratory failure - extubated * Spontaneous left pneumothorax s/p chest tube insertion * Sepsis * Pleural effusion * Cardiomyopathy * Anemia * Polysubstance abuse * Type II DM * Ischemic, necrotic digits of hands/feet * Pelvic mass * Anemia Plan: * Renal function is has improved. She has been on dialysis for more than a week * vascath removed 02/11/2018 * hypernatremia improving with IV hydration * Transfuse pRBC prn; * Consultants' recommendations noted * Abx per ID * Strict i/os * Avoid nephrotoxins * Daily lytes * Shall sign off for now . May stop IV fluid once po intake improves Subjective Date of service: 02/14/18 Principal diagnosis: anemia Interval history: Patient is awake and alert. Denies any shortness of breath. No nausea or vomiting. Oral intake remains poor. Objective - Vital Signs Vital signs: Vital Signs - 12hr 02/14/18 02/14/18 05:19 10:00 Pulse Rate 98 H 100 H Pulse Rate [ 100 H Apical] Respiratory 22 20 Rate Blood Pressure 145/86 O2 Sat by Pulse 95 96 Oximetry - General Appearance General appearance: well-developed, well-nourished, appears stated age EENT: PERRL, mucous membranes dry Neck: no JVD, no thyromegaly, no carotid bruit, supple Respiratory: Present: Clear to Ascultation Cardiology: regular, normal heart rate Gastrointestinal: normal, normoactive bowel sounds Integumentary: other (gangrene of all her fingers and toes ) - Lab 02/12/18 06:09 02/14/18 06:04 Most recent lab results Calcium 7.9 mg/dL (8.4-10.2) L 02/14/18 06:04 Magnesium 1.80 mg/dL (1.7-2.3) 01/29/18 06:00
[2018-02-14] MEDS: NACL 0.45% 1000 ML 1,000 ML IV SCH (15:52)
--- NOTE | 2018-02-14 17:34 | XRay Report ---
FINAL REPORT EXAM: XR CHEST 1V AP HISTORY: left chest tube removal TECHNIQUE: Frontal chest radiograph. PRIORS: 02/13/2018. FINDINGS: Unchanged right chest pacemaker. Unchanged atherosclerotic calculi in the thoracic aorta. Unchanged cardiomegaly. The left thoracostomy tube has been removed. Mild left lower lobe atelectasis is unchanged. No pleural effusion. No pneumothorax. No acute osseous abnormality. IMPRESSION: No pneumothorax post left thoracostomy tube removal. Unchanged mild left lower lobe atelectasis.
--- NOTE | 2018-02-14 17:36 | XRay Report ---
FINAL REPORT EXAM: XR CHEST 1V AP HISTORY: chest tube need reaccess TECHNIQUE: Frontal chest radiograph. PRIORS: Chest radiograph from 01/26/2018. FINDINGS: Unchanged right chest pacemaker. Unchanged cardiomegaly. Unchanged atherosclerotic calculi in the thoracic aorta. A left chest tube is present. Patchy left lower lobe opacities are seen. Probable small left pleural effusion is seen. No pneumothorax. No acute osseous abnormality. IMPRESSION: Small left pleural effusion with left lower lobe atelectasis versus pneumonia. Left thoracostomy tube in place.
--- NOTE | 2018-02-14 18:01 | Progress Note ---
Assessment and Plan Patient sleeping at this time on room air. No acute respiratory distress.Patient afebrile. O2 saturation 96%.Left chest tube removed. - Patient Problems (1) Acute respiratory failure Current Visit: Yes Status: Acute Plan to address problem: Patient presently sleeping on room air., O2 saturation 96%. Brovanna/budesonide aerosol treatments q 12 hours. Albuterol/atrovent aerosol treatments q 6 hours PRN for shortness of breath. Heparin 5000 units S/C q 8 hours Continue Famotadine. (2) Pleural effusion Current Visit: Yes Status: Acute Plan to address problem: Left chest tube removed.. Left sided pleural effusion improved. (3) Acute renal failure Current Visit: Yes Status: Acute Plan to address problem: Management as per nephrology. (4) Encephalopathy Current Visit: Yes Status: Acute Plan to address problem: Management as per primary care and neurology. (5) Gangrene of lower extremity Current Visit: Yes Status: Acute Plan to address problem: Management as per vascular surgery. (6) Gas gangrene of upper extremity Current Visit: Yes Status: Acute Plan to address problem: Management as per vascular surgery. Subjective Date of service: 02/14/18 Principal diagnosis: anemia Interval history: Patient sleeping at this time on room air. No acute respiratory distress.Patient afebrile. O2 saturation 96%.Left sided chest tube removed. Objective Vital Signs - 12hr 02/14/18 02/14/18 02/14/18 08:35 08:45 10:00 Pulse Rate 100 H Pulse Rate [ 100 H Apical] Pulse Rate [ 98 H 94 H Bilateral Throughout] Respiratory 20 Rate Respiratory 18 18 Rate [Bilateral Throughout] O2 Sat by Pulse 93 96 Oximetry Constitutional: no acute distress Eyes: non-icteric ENT: oropharynx moist, other (ETT 20 cm MARGOT and advanced to 23cm MARGOT) Neck: supple, no lymphadenopathy, no JVD Effort: mildly labored Ascultation: Bilateral: diminished breath sounds, rales Percussion: Bilateral: not dull Cardiovascular: regular rate and rhythm, other (no rubs or murmurs) Gastrointestinal: normoactive bowel sounds, soft, non-tender, non-distended, other (no [place] HSM) Integumentary: normal Extremities: no cyanosis, no edema, pink and warm, pulses normal Neurologic: non-focal exam (grossly), pupils equal and round, CN II-XII normal Psychiatric: other (Sleeping at this time.) CBC and BMP: 02/12/18 06:09 02/14/18 06:04 ABG, PT/INR, D-dimer: ABG POC ABG pH 7.441 (7.35-7.45) 02/04/18 15:05 POC ABG pCO2 43.6 (35-45) 02/04/18 15:05 POC ABG pO2 109 (80-105) H 02/04/18 15:05 POC ABG HCO3 29.7 02/04/18 15:05 POC ABG Total CO2 31 02/04/18 15:05 POC ABG O2 Sat 98 02/04/18 15:05 PT/INR, D-dimer PT 17.5 Sec. (12.2-14.9) H 01/20/18 07:00 INR 1.35 (0.87-1.13) H 01/20/18 07:00 Abnormal lab findings: Abnormal Labs 01/17/18 01/17/18 01/17/18 15:25 16:15 16:48 WBC RBC Hgb Hct MCH RDW Plt Count Lymph % (Auto) Mcpherson % (Auto) Lymph # Mcpherson # Seg Neutrophils % Seg Neuts % (Manual) Lymphocytes % (Manual) Monocytes % (Manual) Eosinophils % (Manual) Nucleated RBC % Seg Neutrophils # Seg Neutrophils # Man Lymphocytes # (Manual) Monocytes # (Manual) PT INR POC ABG pH 7.099 L POC ABG pCO2 58.9 H POC ABG pO2 149 H VBG pH Sodium Potassium Chloride Carbon Dioxide BUN Creatinine Glucose POC Glucose < 40 L 121 H Hemoglobin A1c Lactic Acid Calcium Ionized Calcium Total Bilirubin AST ALT Alkaline Phosphatase C-Reactive Protein Total Protein Albumin Complement C3 Complement C4 Crossmatch 01/17/18 01/17/18 01/17/18 16:54 16:54 16:54 WBC RBC Hgb Hct MCH RDW Plt Count Lymph % (Auto) [place]son % (Auto) Lymph # [place]son # Seg Neutrophils % Seg Neuts % (Manual) 72.0 H Lymphocytes % (Manual) 3.0 L Monocytes % (Manual) Eosinophils % (Manual) Nucleated RBC % Seg Neutrophils # Seg Neutrophils # Man Lymphocytes # (Manual) 0.2 L Monocytes # (Manual) PT 18.5 H INR 1.45 H POC ABG pH POC ABG pCO2 POC ABG pO2 VBG pH Sodium 136 L Potassium Chloride 97.8 L Carbon Dioxide 16 L BUN 43 H Creatinine 3.3 H Glucose 121 H POC Glucose Hemoglobin A1c Lactic Acid Calcium 6.7 L Ionized Calcium Total Bilirubin AST ALT Alkaline Phosphatase C-Reactive Protein Total Protein 4.4 L Albumin 2.3 L Complement C3 Complement C4 Crossmatch 01/17/18 01/17/18 01/17/18 16:54 16:54 17:11 WBC RBC Hgb Hct MCH RDW Plt Count Lymph % (Auto) [place]son % (Auto) Lymph # [place]son # Seg Neutrophils % Seg Neuts % (Manual) Lymphocytes % (Manual) Monocytes % (Manual) Eosinophils % (Manual) Nucleated RBC % Seg Neutrophils # Seg Neutrophils # Man Lymphocytes # (Manual) Monocytes # (Manual) PT INR POC ABG pH POC ABG pCO2 POC ABG pO2 VBG pH 7.273 L Sodium Potassium Chloride Carbon Dioxide BUN Creatinine Glucose POC Glucose Hemoglobin A1c Lactic Acid 4.70 H* 4.30 H* Calcium Ionized Calcium Total Bilirubin AST ALT Alkaline Phosphatase C-Reactive Protein Total Protein Albumin Complement C3 Complement C4 Crossmatch 01/17/18 01/17/18 01/17/18 18:02 18:15 19:21 WBC RBC Hgb Hct MCH RDW Plt Count Lymph % (Auto) [place] % (Auto) Lymph # [place]son # Seg Neutrophils % Seg Neuts % (Manual) Lymphocytes % (Manual) Monocytes % (Manual) Eosinophils % (Manual) Nucleated RBC % Seg Neutrophils # Seg Neutrophils # Man Lymphocytes # (Manual) Monocytes # (Manual) PT INR POC ABG pH 7.177 L POC ABG pCO2 POC ABG pO2 VBG pH Sodium Potassium Chloride Carbon Dioxide BUN Creatinine Glucose POC Glucose < 40 L Hemoglobin A1c Lactic Acid 3.00 H* Calcium Ionized Calcium Total Bilirubin AST ALT Alkaline Phosphatase C-Reactive Protein Total Protein Albumin Complement C3 Complement C4 Crossmatch 01/17/18 01/17/18 01/17/18 22:36 22:36 23:16 WBC RBC Hgb Hct MCH RDW Plt Count Lymph % (Auto) [place] % (Auto) Lymph # [place] # Seg Neutrophils % Seg Neuts % (Manual) Lymphocytes % (Manual) Monocytes % (Manual) Eosinophils % (Manual) Nucleated RBC % Seg Neutrophils # Seg Neutrophils # Man Lymphocytes # (Manual) Monocytes # (Manual) PT INR POC ABG pH 7.112 L POC ABG pCO2 50.1 H POC ABG pO2 50 L VBG pH Sodium Potassium Chloride Carbon Dioxide BUN Creatinine Glucose POC Glucose Hemoglobin A1c 9.0 H Lactic Acid 5.50 H* Calcium Ionized Calcium Total Bilirubin AST ALT Alkaline Phosphatase C-Reactive Protein Total Protein Albumin Complement C3 Complement C4 Crossmatch 01/18/18 01/18/18 01/18/18 01:26 03:21 03:21 WBC RBC Hgb Hct MCH RDW Plt Count Lymph % (Auto) [place] % (Auto) Lymph # [place]son # Seg Neutrophils % Seg Neuts % (Manual) 27.0 L Lymphocytes % (Manual) 3.0 L Monocytes % (Manual) 14.0 H Eosinophils % (Manual) Nucleated RBC % Seg Neutrophils # Seg Neutrophils # Man Lymphocytes # (Manual) 0.3 L Monocytes # (Manual) 1.4 H PT INR POC ABG pH POC ABG pCO2 POC ABG pO2 VBG pH Sodium Potassium Chloride Carbon Dioxide BUN Creatinine Glucose POC Glucose 107 H Hemoglobin A1c Lactic Acid 8.00 H* Calcium Ionized Calcium Total Bilirubin AST ALT Alkaline Phosphatase C-Reactive Protein Total Protein Albumin Complement C3 Complement C4 Crossmatch 01/18/18 01/18/18 01/18/18 03:21 04:40 05:07 WBC RBC Hgb Hct MCH RDW Plt Count Lymph % (Auto) [place] % (Auto) Lymph # [place]son # Seg Neutrophils % Seg Neuts % (Manual) Lymphocytes % (Manual) Monocytes % (Manual) Eosinophils % (Manual) Nucleated RBC % Seg Neutrophils # Seg Neutrophils # Man Lymphocytes # (Manual) Monocytes # (Manual) PT INR POC ABG pH 7.093 L POC ABG pCO2 31.5 L POC ABG pO2 77 L VBG pH Sodium Potassium Chloride 96.9 L Carbon Dioxide 14 L BUN 47 H Creatinine 3.4 H Glucose POC Glucose Hemoglobin A1c Lactic Acid 11.10 H* Calcium 6.4 L Ionized Calcium Total Bilirubin AST 47 H ALT Alkaline Phosphatase C-Reactive Protein Total Protein 4.3 L Albumin 2.4 L Complement C3 Complement C4 Crossmatch 01/18/18 01/18/18 01/18/18 06:29 07:06 11:44 WBC RBC Hgb Hct MCH RDW Plt Count Lymph % (Auto) [place] % (Auto) Lymph # [place] # Seg Neutrophils % Seg Neuts % (Manual) Lymphocytes % (Manual) Monocytes % (Manual) Eosinophils % (Manual) Nucleated RBC % Seg Neutrophils # Seg Neutrophils # Man Lymphocytes # (Manual) Monocytes # (Manual) PT INR POC ABG pH POC ABG pCO2 POC ABG pO2 VBG pH Sodium Potassium Chloride Carbon Dioxide BUN Creatinine Glucose POC Glucose 47 L 149 H < 40 L Hemoglobin A1c Lactic Acid Calcium Ionized Calcium Total Bilirubin AST ALT Alkaline Phosphatase C-Reactive Protein Total Protein Albumin Complement C3 Complement C4 Crossmatch 01/18/18 01/18/18 01/18/18 11:46 14:15 18:01 WBC RBC Hgb Hct MCH RDW Plt Count Lymph % (Auto) [place] % (Auto) Lymph # [place]son # Seg Neutrophils % Seg Neuts % (Manual) Lymphocytes % (Manual) Monocytes % (Manual) Eosinophils % (Manual) Nucleated RBC % Seg Neutrophils # Seg Neutrophils # Man Lymphocytes # (Manual) Monocytes # (Manual) PT INR POC ABG pH POC ABG pCO2 POC ABG pO2 VBG pH Sodium Potassium Chloride Carbon Dioxide BUN Creatinine Glucose POC Glucose 116 H < 40 L Hemoglobin A1c Lactic Acid 10.00 H* Calcium Ionized Calcium Total Bilirubin AST ALT Alkaline Phosphatase C-Reactive Protein Total Protein Albumin Complement C3 Complement C4 Crossmatch 01/18/18 01/18/18 01/18/18 18:02 23:25 23:27 WBC RBC Hgb Hct MCH RDW Plt Count Lymph % (Auto) [place] % (Auto) Lymph # [place] # Seg Neutrophils % Seg Neuts % (Manual) Lymphocytes % (Manual) Monocytes % (Manual) Eosinophils % (Manual) Nucleated RBC % Seg Neutrophils # Seg Neutrophils # Man Lymphocytes # (Manual) Monocytes # (Manual) PT INR POC ABG pH POC ABG pCO2 POC ABG pO2 VBG pH Sodium Potassium Chloride Carbon Dioxide BUN Creatinine Glucose POC Glucose 136 H < 40 L < 40 L Hemoglobin A1c Lactic Acid Calcium Ionized Calcium Total Bilirubin AST ALT Alkaline Phosphatase C-Reactive Protein Total Protein Albumin Complement C3 Complement C4 Crossmatch 01/19/18 01/19/18 01/19/18 04:02 06:50 06:50 WBC 18.5 H RBC Hgb Hct MCH RDW Plt Count 136 L Lymph % (Auto) [place]son % (Auto) Lymph # [place]son # Seg Neutrophils % Seg Neuts % (Manual) 86.0 H Lymphocytes % (Manual) 4.0 L Monocytes % (Manual) Eosinophils % (Manual) Nucleated RBC % Seg Neutrophils # Seg Neutrophils # Man 15.9 H Lymphocytes # (Manual) 0.7 L Monocytes # (Manual) 1.1 H PT 21.3 H INR 1.73 H POC ABG pH POC ABG pCO2 28.3 L POC ABG pO2 57 L VBG pH Sodium Potassium Chloride Carbon Dioxide BUN Creatinine Glucose POC Glucose Hemoglobin A1c Lactic Acid Calcium Ionized Calcium Total Bilirubin AST ALT Alkaline Phosphatase C-Reactive Protein Total Protein Albumin Complement C3 Complement C4 Crossmatch 01/19/18 01/19/18 01/19/18 06:50 08:45 11:17 WBC RBC Hgb Hct MCH RDW Plt Count Lymph % (Auto) [place] % (Auto) Lymph # [place] # Seg Neutrophils % Seg Neuts % (Manual) Lymphocytes % (Manual) Monocytes % (Manual) Eosinophils % (Manual) Nucleated RBC % Seg Neutrophils # Seg Neutrophils # Man Lymphocytes # (Manual) Monocytes # (Manual) PT INR POC ABG pH POC ABG pCO2 POC ABG pO2 VBG pH Sodium 135 L Potassium Chloride 92.8 L Carbon Dioxide 19 L BUN 31 H Creatinine 2.6 H Glucose POC Glucose 110 H Hemoglobin A1c Lactic Acid 7.90 H* Calcium 7.1 L Ionized Calcium Total Bilirubin 1.60 H AST 2526 H ALT 1187 H Alkaline Phosphatase 133 H C-Reactive Protein Total Protein 4.8 L Albumin 2.0 L Complement C3 Complement C4 Crossmatch 01/19/18 01/19/18 01/19/18 11:31 22:12 23:34 WBC RBC Hgb Hct MCH RDW Plt Count Lymph % (Auto) [place] % (Auto) Lymph # [place] # Seg Neutrophils % Seg Neuts % (Manual) Lymphocytes % (Manual) Monocytes % (Manual) Eosinophils % (Manual) Nucleated RBC % Seg Neutrophils # Seg Neutrophils # Man Lymphocytes # (Manual) Monocytes # (Manual) PT INR POC ABG pH POC ABG pCO2 31.6 L POC ABG pO2 59 L VBG pH Sodium Potassium Chloride Carbon Dioxide BUN Creatinine Glucose POC Glucose 131 H 53 L Hemoglobin A1c Lactic Acid Calcium Ionized Calcium Total Bilirubin AST ALT Alkaline Phosphatase C-Reactive Protein Total Protein Albumin Complement C3 Complement C4 Crossmatch 01/20/18 01/20/18 01/20/18 05:18 05:18 05:19 WBC 19.7 H RBC Hgb Hct MCH 27 L RDW Plt Count 84 L Lymph % (Auto) [place]son % (Auto) Lymph # [place]son # Seg Neutrophils % Seg Neuts % (Manual) 84.0 H Lymphocytes % (Manual) 2.0 L Monocytes % (Manual) 8.0 H Eosinophils % (Manual) Nucleated RBC % Seg Neutrophils # Seg Neutrophils # Man 16.5 H Lymphocytes # (Manual) 0.4 L Monocytes # (Manual) 1.6 H PT INR POC ABG pH POC ABG pCO2 POC ABG pO2 VBG pH Sodium 136 L Potassium Chloride 96.9 L Carbon Dioxide 17 L BUN 65 H Creatinine 4.1 H D Glucose 104 H POC Glucose 125 H Hemoglobin A1c Lactic Acid Calcium 7.1 L Ionized Calcium Total Bilirubin 1.60 H AST 1702 H ALT 1141 H Alkaline Phosphatase 172 H C-Reactive Protein Total Protein 5.0 L Albumin 1.7 L Complement C3 Complement C4 Crossmatch 01/20/18 01/20/18 01/20/18 07:00 11:48 13:54 WBC RBC Hgb Hct MCH RDW Plt Count Lymph % (Auto) [place] % (Auto) Lymph # [place] # Seg Neutrophils % Seg Neuts % (Manual) Lymphocytes % (Manual) Monocytes % (Manual) Eosinophils % (Manual) Nucleated RBC % Seg Neutrophils # Seg Neutrophils # Man Lymphocytes # (Manual) Monocytes # (Manual) PT 17.5 H INR 1.35 H POC ABG pH POC ABG pCO2 POC ABG pO2 VBG pH Sodium Potassium Chloride Carbon Dioxide BUN Creatinine Glucose POC Glucose 109 H Hemoglobin A1c Lactic Acid Calcium Ionized Calcium Total Bilirubin AST ALT Alkaline Phosphatase C-Reactive Protein 37.50 H Total Protein Albumin Complement C3 Complement C4 Crossmatch 01/20/18 01/20/18 01/20/18 17:28 17:51 20:50 WBC RBC Hgb Hct MCH RDW Plt Count Lymph % (Auto) [place] % (Auto) Lymph # [place]son # Seg Neutrophils % Seg Neuts % (Manual) Lymphocytes % (Manual) Monocytes % (Manual) Eosinophils % (Manual) Nucleated RBC % Seg Neutrophils # Seg Neutrophils # Man Lymphocytes # (Manual) Monocytes # (Manual) PT INR POC ABG pH POC ABG pCO2 POC ABG pO2 VBG pH Sodium Potassium Chloride Carbon Dioxide BUN Creatinine Glucose POC Glucose 140 H Hemoglobin A1c Lactic Acid 2.70 H* 2.30 H* Calcium Ionized Calcium Total Bilirubin AST ALT Alkaline Phosphatase C-Reactive Protein Total Protein Albumin Complement C3 Complement C4 Crossmatch 01/20/18 01/20/18 01/20/18 23:55 Unknown Unknown WBC RBC Hgb Hct MCH RDW Plt Count Lymph % (Auto) [place] % (Auto) Lymph # [place] # Seg Neutrophils % Seg Neuts % (Manual) Lymphocytes % (Manual) Monocytes % (Manual) Eosinophils % (Manual) Nucleated RBC % Seg Neutrophils # Seg Neutrophils # Man Lymphocytes # (Manual) Monocytes # (Manual) PT INR POC ABG pH POC ABG pCO2 POC ABG pO2 VBG pH Sodium Potassium Chloride Carbon Dioxide BUN Creatinine Glucose POC Glucose 149 H Hemoglobin A1c Lactic Acid 2.50 H* Calcium Ionized Calcium Total Bilirubin AST ALT Alkaline Phosphatase C-Reactive Protein Total Protein Albumin Complement C3 47 L Complement C4 Crossmatch 01/20/18 01/21/18 01/21/18 Unknown 00:12 04:27 WBC RBC Hgb Hct MCH RDW Plt Count Lymph % (Auto) [place] % (Auto) Lymph # [place] # Seg Neutrophils % Seg Neuts % (Manual) Lymphocytes % (Manual) Monocytes % (Manual) Eosinophils % (Manual) Nucleated RBC % Seg Neutrophils # Seg Neutrophils # Man Lymphocytes # (Manual) Monocytes # (Manual) PT INR POC ABG pH POC ABG pCO2 33.8 L POC ABG pO2 72 L VBG pH Sodium Potassium Chloride Carbon Dioxide BUN Creatinine Glucose POC Glucose 134 H Hemoglobin A1c Lactic Acid Calcium Ionized Calcium Total Bilirubin AST ALT Alkaline Phosphatase C-Reactive Protein Total Protein Albumin Complement C3 Complement C4 9 L Crossmatch 01/21/18 01/21/18 01/21/18 05:00 05:00 05:00 WBC 21.7 H RBC Hgb Hct MCH 27 L RDW Plt Count 67 L Lymph % (Auto) [place]son % (Auto) Lymph # [place]son # Seg Neutrophils % Seg Neuts % (Manual) 71.0 H Lymphocytes % (Manual) 9.0 L Monocytes % (Manual) Eosinophils % (Manual) Nucleated RBC % 4.0 H Seg Neutrophils # Seg Neutrophils # Man 15.4 H Lymphocytes # (Manual) Monocytes # (Manual) PT INR POC ABG pH POC ABG pCO2 POC ABG pO2 VBG pH Sodium Potassium Chloride Carbon Dioxide 21 L BUN 71 H Creatinine 4.1 H Glucose 149 H POC Glucose Hemoglobin A1c Lactic Acid 2.10 H* Calcium 7.5 L Ionized Calcium Total Bilirubin AST 494 H ALT 780 H Alkaline Phosphatase 151 H C-Reactive Protein Total Protein 4.9 L Albumin 1.9 L Complement C3 Complement C4 Crossmatch 01/21/18 01/21/18 01/21/18 05:18 12:20 18:07 WBC RBC Hgb Hct MCH RDW Plt Count Lymph % (Auto) [place] % (Auto) Lymph # [place] # Seg Neutrophils % Seg Neuts % (Manual) Lymphocytes % (Manual) Monocytes % (Manual) Eosinophils % (Manual) Nucleated RBC % Seg Neutrophils # Seg Neutrophils # Man Lymphocytes # (Manual) Monocytes # (Manual) PT INR POC ABG pH POC ABG pCO2 POC ABG pO2 VBG pH Sodium Potassium Chloride Carbon Dioxide BUN Creatinine Glucose POC Glucose 132 H 158 H 143 H Hemoglobin A1c Lactic Acid Calcium Ionized Calcium Total Bilirubin AST ALT Alkaline Phosphatase C-Reactive Protein Total Protein Albumin Complement C3 Complement C4 Crossmatch 01/21/18 01/22/18 01/22/18 23:40 03:48 04:10 WBC 24.9 H RBC Hgb Hct MCH 27 L RDW Plt Count 80 L Lymph % (Auto) [place]son % (Auto) Lymph # [place]son # Seg Neutrophils % Seg Neuts % (Manual) Lymphocytes % (Manual) Monocytes % (Manual) Eosinophils % (Manual) Nucleated RBC % Seg Neutrophils # Seg Neutrophils # Man Lymphocytes # (Manual) Monocytes # (Manual) PT INR POC ABG pH POC ABG pCO2 POC ABG pO2 65 L VBG pH Sodium Potassium Chloride Carbon Dioxide BUN Creatinine Glucose POC Glucose 136 H Hemoglobin A1c Lactic Acid Calcium Ionized Calcium Total Bilirubin AST ALT Alkaline Phosphatase C-Reactive Protein Total Protein Albumin Complement C3 Complement C4 Crossmatch 01/22/18 01/22/18 01/22/18 04:10 05:56 11:30 WBC RBC Hgb Hct MCH RDW Plt Count Lymph % (Auto) [place] % (Auto) Lymph # [place] # Seg Neutrophils % Seg Neuts % (Manual) Lymphocytes % (Manual) Monocytes % (Manual) Eosinophils % (Manual) Nucleated RBC % Seg Neutrophils # Seg Neutrophils # Man Lymphocytes # (Manual) Monocytes # (Manual) PT INR POC ABG pH POC ABG pCO2 POC ABG pO2 VBG pH Sodium Potassium Chloride 97.7 L Carbon Dioxide BUN 72 H Creatinine 3.6 H Glucose 145 H POC Glucose 139 H 156 H Hemoglobin A1c Lactic Acid Calcium 7.3 L Ionized Calcium Total Bilirubin AST 146 H ALT 547 H Alkaline Phosphatase C-Reactive Protein Total Protein 5.2 L Albumin 2.3 L Complement C3 Complement C4 Crossmatch 01/22/18 01/23/18 01/23/18 17:41 00:00 04:39 WBC RBC Hgb Hct MCH RDW Plt Count Lymph % (Auto) [place] % (Auto) Lymph # [place] # Seg Neutrophils % Seg Neuts % (Manual) Lymphocytes % (Manual) Monocytes % (Manual) Eosinophils % (Manual) Nucleated RBC % Seg Neutrophils # Seg Neutrophils # Man Lymphocytes # (Manual) Monocytes # (Manual) PT INR POC ABG pH POC ABG pCO2 31.9 L POC ABG pO2 62 L VBG pH Sodium Potassium Chloride Carbon Dioxide BUN Creatinine Glucose POC Glucose 185 H 150 H Hemoglobin A1c Lactic Acid Calcium Ionized Calcium Total Bilirubin AST ALT Alkaline Phosphatase C-Reactive Protein Total Protein Albumin Complement C3 Complement C4 Crossmatch 01/23/18 01/23/18 01/23/18 05:24 11:38 14:20 WBC RBC Hgb Hct MCH RDW Plt Count Lymph % (Auto) [place] % (Auto) Lymph # [place] # Seg Neutrophils % Seg Neuts % (Manual) Lymphocytes % (Manual) Monocytes % (Manual) Eosinophils % (Manual) Nucleated RBC % Seg Neutrophils # Seg Neutrophils # Man Lymphocytes # (Manual) Monocytes # (Manual) PT INR POC ABG pH POC ABG pCO2 31.4 L POC ABG pO2 55 L VBG pH Sodium Potassium Chloride Carbon Dioxide BUN Creatinine Glucose POC Glucose 215 H 182 H Hemoglobin A1c Lactic Acid Calcium Ionized Calcium Total Bilirubin AST ALT Alkaline Phosphatase C-Reactive Protein Total Protein Albumin Complement C3 Complement C4 Crossmatch 01/23/18 01/24/18 01/24/18 17:26 00:10 03:40 WBC 34.5 H RBC Hgb Hct MCH 27 L RDW Plt Count 130 L Lymph % (Auto) [place]son % (Auto) Lymph # [place]son # Seg Neutrophils % Seg Neuts % (Manual) Lymphocytes % (Manual) Monocytes % (Manual) Eosinophils % (Manual) Nucleated RBC % Seg Neutrophils # Seg Neutrophils # Man Lymphocytes # (Manual) Monocytes # (Manual) PT INR POC ABG pH POC ABG pCO2 POC ABG pO2 VBG pH Sodium Potassium Chloride Carbon Dioxide BUN Creatinine Glucose POC Glucose 252 H 225 H Hemoglobin A1c Lactic Acid Calcium Ionized Calcium Total Bilirubin AST ALT Alkaline Phosphatase C-Reactive Protein Total Protein Albumin Complement C3 Complement C4 Crossmatch 01/24/18 01/24/18 01/24/18 03:40 06:06 11:36 WBC RBC Hgb Hct MCH RDW Plt Count Lymph % (Auto) [place] % (Auto) Lymph # [place] # Seg Neutrophils % Seg Neuts % (Manual) Lymphocytes % (Manual) Monocytes % (Manual) Eosinophils % (Manual) Nucleated RBC % Seg Neutrophils # Seg Neutrophils # Man Lymphocytes # (Manual) Monocytes # (Manual) PT INR POC ABG pH POC ABG pCO2 POC ABG pO2 VBG pH Sodium Potassium 5.7 H D Chloride 95.6 L Carbon Dioxide 20 L BUN 96 H Creatinine 4.2 H Glucose 166 H POC Glucose 162 H 160 H Hemoglobin A1c Lactic Acid Calcium 7.3 L Ionized Calcium Total Bilirubin AST 52 H ALT 235 H Alkaline Phosphatase C-Reactive Protein Total Protein 5.1 L Albumin 2.5 L Complement C3 Complement C4 Crossmatch 01/24/18 01/24/18 01/25/18 15:08 17:32 00:04 WBC RBC Hgb Hct MCH RDW Plt Count Lymph % (Auto) [place] % (Auto) Lymph # [place] # Seg Neutrophils % Seg Neuts % (Manual) Lymphocytes % (Manual) Monocytes % (Manual) Eosinophils % (Manual) Nucleated RBC % Seg Neutrophils # Seg Neutrophils # Man Lymphocytes # (Manual) Monocytes # (Manual) PT INR POC ABG pH POC ABG pCO2 POC ABG pO2 VBG pH Sodium Potassium Chloride Carbon Dioxide BUN Creatinine Glucose POC Glucose 160 H 169 H Hemoglobin A1c Lactic Acid Calcium Ionized Calcium Total Bilirubin AST ALT Alkaline Phosphatase C-Reactive Protein 3.30 H Total Protein Albumin Complement C3 Complement C4 Crossmatch 01/25/18 01/25/18 01/25/18 04:34 05:25 11:46 WBC RBC Hgb Hct MCH RDW Plt Count Lymph % (Auto) [place] % (Auto) Lymph # [place] # Seg Neutrophils % Seg Neuts % (Manual) Lymphocytes % (Manual) Monocytes % (Manual) Eosinophils % (Manual) Nucleated RBC % Seg Neutrophils # Seg Neutrophils # Man Lymphocytes # (Manual) Monocytes # (Manual) PT INR POC ABG pH 7.342 L POC ABG pCO2 48.7 H POC ABG pO2 VBG pH Sodium Potassium Chloride Carbon Dioxide BUN Creatinine Glucose POC Glucose 133 H 121 H Hemoglobin A1c Lactic Acid Calcium Ionized Calcium Total Bilirubin AST ALT Alkaline Phosphatase C-Reactive Protein Total Protein Albumin Complement C3 Complement C4 Crossmatch 01/25/18 01/25/18 01/26/18 17:42 23:50 04:13 WBC RBC Hgb Hct MCH RDW Plt Count Lymph % (Auto) [place] % (Auto) Lymph # [place]son # Seg Neutrophils % Seg Neuts % (Manual) Lymphocytes % (Manual) Monocytes % (Manual) Eosinophils % (Manual) Nucleated RBC % Seg Neutrophils # Seg Neutrophils # Man Lymphocytes # (Manual) Monocytes # (Manual) PT INR POC ABG pH POC ABG pCO2 POC ABG pO2 70 L VBG pH Sodium Potassium Chloride Carbon Dioxide BUN Creatinine Glucose POC Glucose 150 H 149 H Hemoglobin A1c Lactic Acid Calcium Ionized Calcium Total Bilirubin AST ALT Alkaline Phosphatase C-Reactive Protein Total Protein Albumin Complement C3 Complement C4 Crossmatch 01/26/18 01/26/18 01/26/18 05:25 06:20 06:20 WBC 21.0 H RBC Hgb Hct MCH RDW Plt Count Lymph % (Auto) [place]son % (Auto) Lymph # [place]son # Seg Neutrophils % Seg Neuts % (Manual) 95.0 H Lymphocytes % (Manual) 1.0 L Monocytes % (Manual) Eosinophils % (Manual) Nucleated RBC % Seg Neutrophils # Seg Neutrophils # Man 20.0 H Lymphocytes # (Manual) 0.2 L Monocytes # (Manual) PT INR POC ABG pH POC ABG pCO2 POC ABG pO2 VBG pH Sodium Potassium 5.9 H Chloride 95.7 L Carbon Dioxide BUN 102 H Creatinine 4.6 H Glucose POC Glucose 107 H Hemoglobin A1c Lactic Acid Calcium 6.6 L Ionized Calcium Total Bilirubin AST ALT Alkaline Phosphatase C-Reactive Protein Total Protein Albumin Complement C3 Complement C4 Crossmatch 01/26/18 01/26/18 01/27/18 12:19 18:09 00:17 WBC RBC Hgb Hct MCH RDW Plt Count Lymph % (Auto) [place] % (Auto) Lymph # [place]son # Seg Neutrophils % Seg Neuts % (Manual) Lymphocytes % (Manual) Monocytes % (Manual) Eosinophils % (Manual) Nucleated RBC % Seg Neutrophils # Seg Neutrophils # Man Lymphocytes # (Manual) Monocytes # (Manual) PT INR POC ABG pH POC ABG pCO2 POC ABG pO2 VBG pH Sodium Potassium Chloride Carbon Dioxide BUN Creatinine Glucose POC Glucose 151 H 110 H 159 H Hemoglobin A1c Lactic Acid Calcium Ionized Calcium Total Bilirubin AST ALT Alkaline Phosphatase C-Reactive Protein Total Protein Albumin Complement C3 Complement C4 Crossmatch 01/27/18 01/27/18 01/27/18 05:20 05:20 05:43 WBC 23.3 H RBC Hgb Hct MCH 27 L RDW Plt Count Lymph % (Auto) [place]son % (Auto) Lymph # Mcpherson # Seg Neutrophils % Seg Neuts % (Manual) 97.0 H Lymphocytes % (Manual) 0 L Monocytes % (Manual) Eosinophils % (Manual) Nucleated RBC % Seg Neutrophils # Seg Neutrophils # Man 22.6 H Lymphocytes # (Manual) 0.0 L Monocytes # (Manual) PT INR POC ABG pH POC ABG pCO2 POC ABG pO2 VBG pH Sodium Potassium 5.7 H Chloride 93.9 L Carbon Dioxide 21 L BUN 121 H Creatinine 5.2 H Glucose 131 H POC Glucose 121 H Hemoglobin A1c Lactic Acid Calcium 6.1 L Ionized Calcium Total Bilirubin AST ALT Alkaline Phosphatase C-Reactive Protein Total Protein Albumin Complement C3 Complement C4 Crossmatch 01/27/18 01/27/18 01/28/18 12:16 17:32 00:05 WBC RBC Hgb Hct MCH RDW Plt Count Lymph % (Auto) [place]son % (Auto) Lymph # [place] # Seg Neutrophils % Seg Neuts % (Manual) Lymphocytes % (Manual) Monocytes % (Manual) Eosinophils % (Manual) Nucleated RBC % Seg Neutrophils # Seg Neutrophils # Man Lymphocytes # (Manual) Monocytes # (Manual) PT INR POC ABG pH POC ABG pCO2 POC ABG pO2 VBG pH Sodium Potassium Chloride Carbon Dioxide BUN Creatinine Glucose POC Glucose 161 H 146 H 128 H Hemoglobin A1c Lactic Acid Calcium Ionized Calcium Total Bilirubin AST ALT Alkaline Phosphatase C-Reactive Protein Total Protein Albumin Complement C3 Complement C4 Crossmatch 01/28/18 01/28/18 01/28/18 04:24 05:43 06:30 WBC 24.8 H RBC Hgb Hct MCH RDW Plt Count Lymph % (Auto) [place]son % (Auto) Lymph # [place]son # Seg Neutrophils % Seg Neuts % (Manual) 91.0 H Lymphocytes % (Manual) 4.0 L Monocytes % (Manual) Eosinophils % (Manual) Nucleated RBC % Seg Neutrophils # Seg Neutrophils # Man 22.6 H Lymphocytes # (Manual) 1.0 L Monocytes # (Manual) 1.0 H PT INR POC ABG pH POC ABG pCO2 POC ABG pO2 77 L VBG pH Sodium Potassium Chloride Carbon Dioxide BUN Creatinine Glucose POC Glucose 137 H Hemoglobin A1c Lactic Acid Calcium Ionized Calcium Total Bilirubin AST ALT Alkaline Phosphatase C-Reactive Protein Total Protein Albumin Complement C3 Complement C4 Crossmatch 01/28/18 01/28/18 01/28/18 06:30 11:30 18:08 WBC RBC Hgb Hct MCH RDW Plt Count Lymph % (Auto) [place] % (Auto) Lymph # [place]son # Seg Neutrophils % Seg Neuts % (Manual) Lymphocytes % (Manual) Monocytes % (Manual) Eosinophils % (Manual) Nucleated RBC % Seg Neutrophils # Seg Neutrophils # Man Lymphocytes # (Manual) Monocytes # (Manual) PT INR POC ABG pH POC ABG pCO2 POC ABG pO2 VBG pH Sodium Potassium Chloride 95.2 L Carbon Dioxide BUN 70 H Creatinine 3.7 H Glucose 135 H POC Glucose 183 H 129 H Hemoglobin A1c Lactic Acid Calcium 6.4 L Ionized Calcium Total Bilirubin AST ALT Alkaline Phosphatase C-Reactive Protein Total Protein Albumin Complement C3 Complement C4 Crossmatch 01/29/18 01/29/18 01/29/18 00:00 05:50 06:00 WBC 15.8 H RBC 3.37 L Hgb 9.1 L Hct 28.6 L MCH 27 L RDW Plt Count Lymph % (Auto) [place]son % (Auto) Lymph # [place] # Seg Neutrophils % Seg Neuts % (Manual) 87.0 H Lymphocytes % (Manual) 7.0 L Monocytes % (Manual) Eosinophils % (Manual) Nucleated RBC % Seg Neutrophils # Seg Neutrophils # Man 13.7 H Lymphocytes # (Manual) 1.1 L Monocytes # (Manual) PT INR POC ABG pH POC ABG pCO2 POC ABG pO2 VBG pH Sodium Potassium Chloride Carbon Dioxide BUN Creatinine Glucose POC Glucose 111 H 120 H Hemoglobin A1c Lactic Acid Calcium Ionized Calcium Total Bilirubin AST ALT Alkaline Phosphatase C-Reactive Protein Total Protein Albumin Complement C3 Complement C4 Crossmatch 01/29/18 01/29/18 01/29/18 06:00 06:00 12:29 WBC RBC Hgb Hct MCH RDW Plt Count Lymph % (Auto) [place] % (Auto) Lymph # [place] # Seg Neutrophils % Seg Neuts % (Manual) Lymphocytes % (Manual) Monocytes % (Manual) Eosinophils % (Manual) Nucleated RBC % Seg Neutrophils # Seg Neutrophils # Man Lymphocytes # (Manual) Monocytes # (Manual) PT INR POC ABG pH POC ABG pCO2 POC ABG pO2 VBG pH Sodium 136 L Potassium Chloride 95.4 L Carbon Dioxide BUN 94 H Creatinine 4.2 H Glucose 120 H POC Glucose 134 H Hemoglobin A1c Lactic Acid Calcium 6.5 L Ionized Calcium 3.9 L Total Bilirubin AST ALT Alkaline Phosphatase C-Reactive Protein Total Protein 4.5 L Albumin 2.0 L Complement C3 Complement C4 Crossmatch 01/29/18 01/30/1801/30/18 18:32 00:12 04:47 WBC RBC Hgb Hct MCH RDW Plt Count Lymph % (Auto) [place] % (Auto) Lymph # [place] # Seg Neutrophils % Seg Neuts % (Manual) Lymphocytes % (Manual) Monocytes % (Manual) Eosinophils % (Manual) Nucleated RBC % Seg Neutrophils # Seg Neutrophils # Man Lymphocytes # (Manual) Monocytes # (Manual) PT INR POC ABG pH 7.456 H POC ABG pCO2 POC ABG pO2 VBG pH Sodium Potassium Chloride Carbon Dioxide BUN Creatinine Glucose POC Glucose 158 H 155 H Hemoglobin A1c Lactic Acid Calcium Ionized Calcium Total Bilirubin AST ALT Alkaline Phosphatase C-Reactive Protein Total Protein Albumin Complement C3 Complement C4 Crossmatch 01/30/18 01/30/18 01/30/18 12:06 17:46 Unknown WBC 12.8 H RBC 3.09 L Hgb 8.4 L Hct 26.2 L MCH 27 L RDW Plt Count Lymph % (Auto) [place] % (Auto) Lymph # [place] # Seg Neutrophils % Seg Neuts % (Manual) 95.0 H Lymphocytes % (Manual) 1.0 L Monocytes % (Manual) Eosinophils % (Manual) Nucleated RBC % Seg Neutrophils # Seg Neutrophils # Man 12.2 H Lymphocytes # (Manual) 0.1 L Monocytes # (Manual) PT INR POC ABG pH POC ABG pCO2 POC ABG pO2 VBG pH Sodium Potassium Chloride Carbon Dioxide BUN Creatinine Glucose POC Glucose 117 H 166 H Hemoglobin A1c Lactic Acid Calcium Ionized Calcium Total Bilirubin AST ALT Alkaline Phosphatase C-Reactive Protein Total Protein Albumin Complement C3 Complement C4 Crossmatch 01/30/18 01/31/18 01/31/18 Unknown 00:04 04:50 WBC 13.6 H RBC 3.53 L Hgb 9.8 L Hct 30.0 L MCH RDW 15.4 H Plt Count Lymph % (Auto) 3.6 L [place]son % (Auto) 8.7 H Lymph # 0.5 L [place]pherson # 1.2 H Seg Neutrophils % 87.1 H Seg Neuts % (Manual) Lymphocytes % (Manual) Monocytes % (Manual) Eosinophils % (Manual) Nucleated RBC % Seg Neutrophils # 11.8 H Seg Neutrophils # Man Lymphocytes # (Manual) Monocytes # (Manual) PT INR POC ABG pH POC ABG pCO2 POC ABG pO2 VBG pH Sodium Potassium Chloride Carbon Dioxide BUN 52 H Creatinine 2.9 H Glucose 105 H POC Glucose 155 H Hemoglobin A1c Lactic Acid Calcium 6.7 L Ionized Calcium Total Bilirubin AST ALT Alkaline Phosphatase C-Reactive Protein Total Protein Albumin Complement C3 Complement C4 Crossmatch 01/31/18 01/31/18 01/31/18 04:50 17:08 23:38 WBC RBC Hgb Hct MCH RDW Plt Count Lymph % (Auto) [place] % (Auto) Lymph # [place] # Seg Neutrophils % Seg Neuts % (Manual) Lymphocytes % (Manual) Monocytes % (Manual) Eosinophils % (Manual) Nucleated RBC % Seg Neutrophils # Seg Neutrophils # Man Lymphocytes # (Manual) Monocytes # (Manual) PT INR POC ABG pH POC ABG pCO2 POC ABG pO2 VBG pH Sodium Potassium Chloride Carbon Dioxide BUN 70 H Creatinine 3.3 H Glucose 102 H POC Glucose 106 H 136 H Hemoglobin A1c Lactic Acid Calcium 7.1 L Ionized Calcium Total Bilirubin AST ALT Alkaline Phosphatase C-Reactive Protein Total Protein Albumin Complement C3 Complement C4 Crossmatch 02/01/18 02/01/18 02/01/18 04:00 04:00 05:25 WBC RBC 3.16 L Hgb 8.7 L Hct 27.5 L MCH RDW Plt Count Lymph % (Auto) 6.4 L [place]son % (Auto) 10.2 H Lymph # 0.7 L [place]pherson # 1.1 H Seg Neutrophils % 81.7 H Seg Neuts % (Manual) Lymphocytes % (Manual) Monocytes % (Manual) Eosinophils % (Manual) Nucleated RBC % Seg Neutrophils # 8.6 H Seg Neutrophils # Man Lymphocytes # (Manual) Monocytes # (Manual) PT INR POC ABG pH POC ABG pCO2 POC ABG pO2 VBG pH Sodium Potassium 3.4 L Chloride Carbon Dioxide 31 H BUN 42 H Creatinine 2.2 H Glucose 101 H POC Glucose 163 H Hemoglobin A1c Lactic Acid Calcium 7.1 L Ionized Calcium Total Bilirubin AST ALT Alkaline Phosphatase C-Reactive Protein Total Protein Albumin Complement C3 Complement C4 Crossmatch 02/01/18 02/01/18 02/01/18 11:54 18:21 23:34 WBC RBC Hgb Hct MCH RDW Plt Count Lymph % (Auto) [place] % (Auto) Lymph # [place] # Seg Neutrophils % Seg Neuts % (Manual) Lymphocytes % (Manual) Monocytes % (Manual) Eosinophils % (Manual) Nucleated RBC % Seg Neutrophils # Seg Neutrophils # Man Lymphocytes # (Manual) Monocytes # (Manual) PT INR POC ABG pH POC ABG pCO2 POC ABG pO2 VBG pH Sodium Potassium Chloride Carbon Dioxide BUN Creatinine Glucose POC Glucose 123 H 157 H 114 H Hemoglobin A1c Lactic Acid Calcium Ionized Calcium Total Bilirubin AST ALT Alkaline Phosphatase C-Reactive Protein Total Protein Albumin Complement C3 Complement C4 Crossmatch 02/02/18 02/02/18 02/02/18 03:30 05:45 17:27 WBC RBC Hgb Hct MCH RDW Plt Count Lymph % (Auto) [place] % (Auto) Lymph # [place] # Seg Neutrophils % Seg Neuts % (Manual) Lymphocytes % (Manual) Monocytes % (Manual) Eosinophils % (Manual) Nucleated RBC % Seg Neutrophils # Seg Neutrophils # Man Lymphocytes # (Manual) Monocytes # (Manual) PT INR POC ABG pH POC ABG pCO2 POC ABG pO2 VBG pH Sodium Potassium 3.3 L Chloride 97.8 L Carbon Dioxide BUN 58 H Creatinine 2.7 H Glucose 111 H POC Glucose 110 H 125 H Hemoglobin A1c Lactic Acid Calcium 7.1 L Ionized Calcium Total Bilirubin AST ALT Alkaline Phosphatase C-Reactive Protein Total Protein Albumin Complement C3 Complement C4 Crossmatch 02/02/18 02/03/18 02/03/18 23:34 04:45 05:38 WBC RBC Hgb Hct MCH RDW Plt Count Lymph % (Auto) [place] % (Auto) Lymph # [place] # Seg Neutrophils % Seg Neuts % (Manual) Lymphocytes % (Manual) Monocytes % (Manual) Eosinophils % (Manual) Nucleated RBC % Seg Neutrophils # Seg Neutrophils # Man Lymphocytes # (Manual) Monocytes # (Manual) PT INR POC ABG pH POC ABG pCO2 POC ABG pO2 VBG pH Sodium Potassium Chloride Carbon Dioxide BUN 72 H Creatinine 3.2 H Glucose POC Glucose 153 H 111 H Hemoglobin A1c Lactic Acid Calcium 7.6 L Ionized Calcium Total Bilirubin AST ALT Alkaline Phosphatase C-Reactive Protein Total Protein Albumin Complement C3 Complement C4 Crossmatch 02/03/18 02/03/18 02/03/18 11:36 18:26 22:45 WBC RBC Hgb Hct MCH RDW Plt Count Lymph % (Auto) [place] % (Auto) Lymph # [place] # Seg Neutrophils % Seg Neuts % (Manual) Lymphocytes % (Manual) Monocytes % (Manual) Eosinophils % (Manual) Nucleated RBC % Seg Neutrophils # Seg Neutrophils # Man Lymphocytes # (Manual) Monocytes # (Manual) PT INR POC ABG pH POC ABG pCO2 POC ABG pO2 VBG pH Sodium Potassium Chloride Carbon Dioxide BUN Creatinine Glucose POC Glucose 108 H 155 H 141 H Hemoglobin A1c Lactic Acid Calcium Ionized Calcium Total Bilirubin AST ALT Alkaline Phosphatase C-Reactive Protein Total Protein Albumin Complement C3 Complement C4 Crossmatch 02/04/18 02/04/18 02/04/18 04:06 11:57 15:05 WBC RBC Hgb Hct MCH RDW Plt Count Lymph % (Auto) [place] % (Auto) Lymph # [place] # Seg Neutrophils % Seg Neuts % (Manual) Lymphocytes % (Manual) Monocytes % (Manual) Eosinophils % (Manual) Nucleated RBC % Seg Neutrophils # Seg Neutrophils # Man Lymphocytes # (Manual) Monocytes # (Manual) PT INR POC ABG pH POC ABG pCO2 POC ABG pO2 109 H VBG pH Sodium 136 L Potassium 3.4 L Chloride 96.7 L Carbon Dioxide BUN 42 H Creatinine 1.9 H Glucose POC Glucose 119 H Hemoglobin A1c Lactic Acid Calcium 7.3 L Ionized Calcium Total Bilirubin AST ALT Alkaline Phosphatase C-Reactive Protein Total Protein Albumin Complement C3 Complement C4 Crossmatch 02/05/18 02/05/18 02/05/18 04:10 05:04 18:02 WBC RBC Hgb Hct MCH RDW Plt Count Lymph % (Auto) [place] % (Auto) Lymph # [place] # Seg Neutrophils % Seg Neuts % (Manual) Lymphocytes % (Manual) Monocytes % (Manual) Eosinophils % (Manual) Nucleated RBC % Seg Neutrophils # Seg Neutrophils # Man Lymphocytes # (Manual) Monocytes # (Manual) PT INR POC ABG pH POC ABG pCO2 POC ABG pO2 VBG pH Sodium Potassium 3.5 L Chloride Carbon Dioxide BUN 52 H Creatinine 2.2 H Glucose POC Glucose 108 H 124 H Hemoglobin A1c Lactic Acid Calcium 7.5 L Ionized Calcium Total Bilirubin AST ALT Alkaline Phosphatase C-Reactive Protein Total Protein Albumin Complement C3 Complement C4 Crossmatch 02/06/18 02/06/18 02/06/18 05:38 07:52 07:52 WBC RBC 2.91 L Hgb 8.1 L Hct 24.6 L MCH RDW Plt Count Lymph % (Auto) 11.2 L [place]son % (Auto) 8.5 H Lymph # 0.6 L [place] # Seg Neutrophils % 76.9 H Seg Neuts % (Manual) Lymphocytes % (Manual) Monocytes % (Manual) Eosinophils % (Manual) Nucleated RBC % Seg Neutrophils # Seg Neutrophils # Man Lymphocytes # (Manual) Monocytes # (Manual) PT INR POC ABG pH POC ABG pCO2 POC ABG pO2 VBG pH Sodium Potassium 3.2 L Chloride Carbon Dioxide BUN 37 H Creatinine 1.6 H Glucose 109 H POC Glucose 119 H Hemoglobin A1c Lactic Acid Calcium 8.1 L Ionized Calcium Total Bilirubin AST ALT Alkaline Phosphatase C-Reactive Protein Total Protein Albumin Complement C3 Complement C4 Crossmatch 02/06/18 02/06/18 02/07/18 12:14 17:20 07:45 WBC RBC 2.61 L Hgb 7.4 L Hct 22.7 L MCH RDW Plt Count Lymph % (Auto) [place] % (Auto) Lymph # [place] # Seg Neutrophils % Seg Neuts % (Manual) Lymphocytes % (Manual) Monocytes % (Manual) Eosinophils % (Manual) Nucleated RBC % Seg Neutrophils # Seg Neutrophils # Man Lymphocytes # (Manual) Monocytes # (Manual) PT INR POC ABG pH POC ABG pCO2 POC ABG pO2 VBG pH Sodium Potassium Chloride Carbon Dioxide BUN Creatinine Glucose POC Glucose 109 H 106 H Hemoglobin A1c Lactic Acid Calcium Ionized Calcium Total Bilirubin AST ALT Alkaline Phosphatase C-Reactive Protein Total Protein Albumin Complement C3 Complement C4 Crossmatch 02/07/18 02/08/18 02/08/18 07:45 08:16 08:16 WBC 3.7 L RBC 2.49 L Hgb 7.0 L Hct 21.5 L MCH RDW Plt Count Lymph % (Auto) [place] % (Auto) Lymph # [place] # Seg Neutrophils % Seg Neuts % (Manual) Lymphocytes % (Manual) Monocytes % (Manual) Eosinophils % (Manual) Nucleated RBC % Seg Neutrophils # Seg Neutrophils # Man Lymphocytes # (Manual) Monocytes # (Manual) PT INR POC ABG pH POC ABG pCO2 POC ABG pO2 VBG pH Sodium Potassium Chloride Carbon Dioxide BUN 48 H 52 H Creatinine 2.1 H 2.0 H Glucose POC Glucose Hemoglobin A1c Lactic Acid Calcium 8.1 L 8.3 L Ionized Calcium Total Bilirubin AST ALT Alkaline Phosphatase C-Reactive Protein Total Protein Albumin Complement C3 Complement C4 Crossmatch 02/08/18 02/09/18 02/09/18 16:35 00:19 05:31 WBC 3.7 L RBC 2.38 L Hgb 6.8 L Hct 20.3 L MCH RDW Plt Count Lymph % (Auto) [place] % (Auto) Lymph # [place] # Seg Neutrophils % Seg Neuts % (Manual) Lymphocytes % (Manual) Monocytes % (Manual) Eosinophils % (Manual) Nucleated RBC % Seg Neutrophils # Seg Neutrophils # Man Lymphocytes # (Manual) Monocytes # (Manual) PT INR POC ABG pH POC ABG pCO2 POC ABG pO2 VBG pH Sodium Potassium Chloride Carbon Dioxide BUN Creatinine Glucose POC Glucose 121 H 171 H Hemoglobin A1c Lactic Acid Calcium Ionized Calcium Total Bilirubin AST ALT Alkaline Phosphatase C-Reactive Protein Total Protein Albumin Complement C3 Complement C4 Crossmatch 02/09/18 02/09/18 02/10/18 05:31 17:17 00:16 WBC RBC Hgb Hct MCH RDW Plt Count Lymph % (Auto) [place] % (Auto) Lymph # [place] # Seg Neutrophils % Seg Neuts % (Manual) Lymphocytes % (Manual) Monocytes % (Manual) Eosinophils % (Manual) Nucleated RBC % Seg Neutrophils # Seg Neutrophils # Man Lymphocytes # (Manual) Monocytes # (Manual) PT INR POC ABG pH POC ABG pCO2 POC ABG pO2 VBG pH Sodium 146 H Potassium Chloride Carbon Dioxide BUN 48 H Creatinine 1.7 H Glucose POC Glucose 121 H 162 H Hemoglobin A1c Lactic Acid Calcium 8.0 L Ionized Calcium Total Bilirubin AST ALT Alkaline Phosphatase C-Reactive Protein Total Protein Albumin Complement C3 Complement C4 Crossmatch 02/10/18 02/10/18 02/10/18 11:58 17:04 17:58 WBC RBC Hgb Hct MCH RDW Plt Count Lymph % (Auto) [place] % (Auto) Lymph # [place] # Seg Neutrophils % Seg Neuts % (Manual) Lymphocytes % (Manual) Monocytes % (Manual) Eosinophils % (Manual) Nucleated RBC % Seg Neutrophils # Seg Neutrophils # Man Lymphocytes # (Manual) Monocytes # (Manual) PT INR POC ABG pH POC ABG pCO2 POC ABG pO2 VBG pH Sodium Potassium Chloride Carbon Dioxide BUN Creatinine Glucose POC Glucose 151 H 131 H Hemoglobin A1c Lactic Acid Calcium Ionized Calcium Total Bilirubin AST ALT Alkaline Phosphatase C-Reactive Protein Total Protein Albumin Complement C3 Complement C4 Crossmatch See Detail 02/11/18 02/11/18 02/11/18 00:08 07:40 07:40 WBC 4.3 L RBC 2.84 L Hgb 7.9 L Hct 24.6 L MCH RDW Plt Count Lymph % (Auto) [place] % (Auto) Lymph # [place] # Seg Neutrophils % Seg Neuts % (Manual) Lymphocytes % (Manual) Monocytes % (Manual) Eosinophils % (Manual) Nucleated RBC % Seg Neutrophils # Seg Neutrophils # Man Lymphocytes # (Manual) Monocytes # (Manual) PT INR POC ABG pH POC ABG pCO2 POC ABG pO2 VBG pH Sodium 150 H Potassium Chloride 109.5 H Carbon Dioxide BUN 35 H Creatinine Glucose POC Glucose 113 H Hemoglobin A1c Lactic Acid Calcium Ionized Calcium Total Bilirubin AST ALT Alkaline Phosphatase C-Reactive Protein Total Protein Albumin Complement C3 Complement C4 Crossmatch 02/11/18 02/11/18 02/12/18 12:36 17:37 06:09 WBC RBC Hgb Hct MCH RDW Plt Count Lymph % (Auto) [place] % (Auto) Lymph # [place] # Seg Neutrophils % Seg Neuts % (Manual) Lymphocytes % (Manual) Monocytes % (Manual) Eosinophils % (Manual) Nucleated RBC % Seg Neutrophils # Seg Neutrophils # Man Lymphocytes # (Manual) Monocytes # (Manual) PT INR POC ABG pH POC ABG pCO2 POC ABG pO2 VBG pH Sodium Potassium Chloride Carbon Dioxide BUN 28 H Creatinine Glucose POC Glucose 138 H 205 H Hemoglobin A1c Lactic Acid Calcium 8.0 L Ionized Calcium Total Bilirubin AST ALT Alkaline Phosphatase C-Reactive Protein Total Protein Albumin Complement C3 Complement C4 Crossmatch 02/12/18 02/12/18 02/12/18 06:09 13:06 16:53 WBC 4.0 L RBC 2.92 L Hgb 8.2 L Hct 25.5 L MCH RDW Plt Count Lymph % (Auto) [place] % (Auto) Lymph # [place] # Seg Neutrophils % Seg Neuts % (Manual) 71.0 H Lymphocytes % (Manual) Monocytes % (Manual) Eosinophils % (Manual) 5.0 H Nucleated RBC % Seg Neutrophils # Seg Neutrophils # Man Lymphocytes # (Manual) 0.7 L Monocytes # (Manual) PT INR POC ABG pH POC ABG pCO2 POC ABG pO2 VBG pH Sodium Potassium Chloride Carbon Dioxide BUN Creatinine Glucose POC Glucose 132 H 146 H Hemoglobin A1c Lactic Acid Calcium Ionized Calcium Total Bilirubin AST ALT Alkaline Phosphatase C-Reactive Protein Total Protein Albumin Complement C3 Complement C4 Crossmatch 02/13/18 02/13/18 02/13/18 01:23 04:36 12:45 WBC RBC Hgb Hct MCH RDW Plt Count Lymph % (Auto) [place] % (Auto) Lymph # [place] # Seg Neutrophils % Seg Neuts % (Manual) Lymphocytes % (Manual) Monocytes % (Manual) Eosinophils % (Manual) Nucleated RBC % Seg Neutrophils # Seg Neutrophils # Man Lymphocytes # (Manual) Monocytes # (Manual) PT INR POC ABG pH POC ABG pCO2 POC ABG pO2 VBG pH Sodium Potassium 3.3 L Chloride Carbon Dioxide BUN 25 H Creatinine Glucose POC Glucose 108 H 116 H Hemoglobin A1c Lactic Acid Calcium 8.0 L Ionized Calcium Total Bilirubin AST ALT Alkaline Phosphatase C-Reactive Protein Total Protein Albumin Complement C3 Complement C4 Crossmatch 02/13/18 02/14/18 02/14/18 17:46 00:16 06:04 WBC RBC Hgb Hct MCH RDW Plt Count Lymph % (Auto) [place] % (Auto) Lymph # [place] # Seg Neutrophils % Seg Neuts % (Manual) Lymphocytes % (Manual) Monocytes % (Manual) Eosinophils % (Manual) Nucleated RBC % Seg Neutrophils # Seg Neutrophils # Man Lymphocytes # (Manual) Monocytes # (Manual) PT INR POC ABG pH POC ABG pCO2 POC ABG pO2 VBG pH Sodium Potassium 3.4 L Chloride Carbon Dioxide BUN 20 H Creatinine Glucose POC Glucose 114 H 120 H Hemoglobin A1c Lactic Acid Calcium 7.9 L Ionized Calcium Total Bilirubin AST ALT Alkaline Phosphatase C-Reactive Protein Total Protein Albumin Complement C3 Complement C4 Crossmatch 02/14/18 02/14/18 12:09 17:23 WBC RBC Hgb Hct MCH RDW Plt Count Lymph % (Auto) [place] % (Auto) Lymph # [place] # Seg Neutrophils % Seg Neuts % (Manual) Lymphocytes % (Manual) Monocytes % (Manual) Eosinophils % (Manual) Nucleated RBC % Seg Neutrophils # Seg Neutrophils # Man Lymphocytes # (Manual) Monocytes # (Manual) PT INR POC ABG pH POC ABG pCO2 POC ABG pO2 VBG pH Sodium Potassium Chloride Carbon Dioxide BUN Creatinine Glucose POC Glucose 118 H 133 H Hemoglobin A1c Lactic Acid Calcium Ionized Calcium Total Bilirubin AST ALT Alkaline Phosphatase C-Reactive Protein Total Protein Albumin Complement C3 Complement C4 Crossmatch Chest x-ray: report reviewed (Left chest tube removed.), image reviewed Allied health notes reviewed: nursing
[2018-02-15] MEDS: DILAUDID IV PRN ×4 (02:54→21:06)
[2018-02-15] MEDS: PULMICORT IH SCH ×2 (08:36→21:02)
[2018-02-15] MEDS: BROVANA NEBU IH SCH ×2 (08:36→21:02)
[2018-02-15] MEDS: PEPCID PO SCH (09:30)
[2018-02-15] MEDS: NACL 0.45% 1000 ML 1,000 ML IV SCH (09:43)
--- NOTE | 2018-02-15 11:15 | Progress Note ---
Assessment and Plan Assessment and plan: -Acute combined respiratory failure on ventilator greater than 96 hours status post extubation: Resolving, still with oxygen via nasal cannula -Septic shock, resolved, s/p vasopressors -Acute on chronic combined heart failure improved, Cardiology has signed off -Large left pleural effusion status post left chest tube. Chest tube removal per interventional radiology today. -Acute renal failure due to ATN present on admission, improved. Patient previously on hemodialysis which now is on hold. -Acute toxic metabolic encephalopathy, POA. Resolved. 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 -Pelvic masses, ?incidental findings. [facility] follow-up. -DVT prophylaxis: sq heparin -Disposition. Awaiting NHP History Interval history: 62-year-old admitted with hx of htn, polysubstance drug abuse per family, admitted after she was found unresponsive found in the bathroom of a friends home, noted with severe lactic acidosis, hypotensive on vasopressors, hypercapenic respiratory failure requiring intubation. Patient now extubated and has been transferred to the floor. Hospitalist Physical - Constitutional Vitals: Temp Pulse Resp BP Pulse Ox 99.2 F 85 18 116/56 90 02/15/18 07:37 02/15/18 10:00 02/15/18 10:00 02/15/18 07:37 02/15/18 07:37 General appearance: Present: no acute distress - EENT Eyes: Present: PERRL, EOM intact ENT: hearing intact, clear oral mucosa, dentition normal - Neck Neck: Present: supple, normal ROM - Respiratory Respiratory effort: normal Respiratory: bilateral: CTA - Cardiovascular Rhythm: regular Heart Sounds: Present: S1 & S2. Absent: gallop, rub - Extremities Extremities: No edema, normal color, Full ROM Extremity abnormal: edema, cyanosis, black, cold, other (bilateral extremities) - Abdominal General gastrointestinal: soft, non-tender, non-distended, normal bowel sounds - Integumentary Integumentary: Present: clear, warm, dry - Neurologic Neurologic: CNII-XII intact, moves all extremities Results - Labs CBC & Chem 7: 02/12/18 06:09 02/14/18 06:04 Labs: Laboratory Last Values WBC 4.0 K/mm3 (4.5-11.0) L 02/12/18 06:09 RBC 2.92 M/mm3 (3.65-5.03) L 02/12/18 06:09 Hgb 8.2 gm/dl (10.1-14.3) L 02/12/18 06:09 Hct 25.5 % (30.3-42.9) L 02/12/18 06:09 MCV 88 fl (79-97) 02/12/18 06:09 MCH 28 pg (28-32) 02/12/18 06:09 MCHC 32 % (30-34) 02/12/18 06:09 RDW 14.5 % (13.2-15.2) 02/12/18 06:09 Plt Count 296 K/mm3 (140-440) 02/12/18 06:09 Lymph % (Auto) 11.2 % (13.4-35.0) L 02/06/18 07:52 [place] % (Auto) 8.5 % (0.0-7.3) H 02/06/18 07:52 Eos % (Auto) 2.7 % (0.0-4.3) 02/06/18 07:52 Baso % (Auto) 0.7 % (0.0-1.8) 02/06/18 07:52 Lymph # 0.6 K/mm3 (1.2-5.4) L 02/06/18 07:52 [place] # 0.5 K/mm3 (0.0-0.8) 02/06/18 07:52 Eos # 0.2 K/mm3 (0.0-0.4) 02/06/18 07:52 Baso # 0.0 K/mm3 (0.0-0.1) 02/06/18 07:52 Add Manual Diff Complete 02/12/18 06:09 Total Counted 100 02/12/18 06:09 Seg Neutrophils % 76.9 % (40.0-70.0) H 02/06/18 07:52 Seg Neuts % (Manual) 71.0 % (40.0-70.0) H 02/12/18 06:09 Band Neutrophils % 1.0 % 02/12/18 06:09 Lymphocytes % (Manual) 17.0 % (13.4-35.0) 02/12/18 06:09 Reactive Lymphs % (Man) 1.0 % 02/12/18 06:09 Monocytes % (Manual) 5.0 % (0.0-7.3) 02/12/18 06:09 Eosinophils % (Manual) 5.0 % (0.0-4.3) H 02/12/18 06:09 Basophils % (Manual) 0 % (0.0-1.8) 02/12/18 06:09 Metamyelocytes % 0 % 02/12/18 06:09 Myelocytes % 0 % 02/12/18 06:09 Promyelocytes % 0 % 02/12/18 06:09 Blast Cells % 0 % 02/12/18 06:09 Nucleated RBC % Not Reportable 02/12/18 06:09 Seg Neutrophils # 4.3 K/mm3 (1.8-7.7) 02/06/18 07:52 Seg Neutrophils # Man 2.8 K/mm3 (1.8-7.7) 02/12/18 06:09 Band Neutrophils # 0.0 K/mm3 02/12/18 06:09 Lymphocytes # (Manual) 0.7 K/mm3 (1.2-5.4) L 02/12/18 06:09 Abs React Lymphs (Man) 0.0 K/mm3 02/12/18 06:09 Monocytes # (Manual) 0.2 K/mm3 (0.0-0.8) 02/12/18 06:09 Eosinophils # (Manual) 0.2 K/mm3 (0.0-0.4) 02/12/18 06:09 Basophils # (Manual) 0.0 K/mm3 (0.0-0.1) 02/12/18 06:09 Metamyelocytes # 0.0 K/mm3 02/12/18 06:09 Myelocytes # 0.0 K/mm3 02/12/18 06:09 Promyelocytes # 0.0 K/mm3 02/12/18 06:09 Blast Cells # 0.0 K/mm3 02/12/18 06:09 WBC Morphology Not Reportable 02/12/18 06:09 Hypersegmented Neuts Not Reportable 02/12/18 06:09 Hyposegmented Neuts Not Reportable 02/12/18 06:09 Hypogranular Neuts Not Reportable 02/12/18 06:09 Smudge Cells Not Reportable 02/12/18 06:09 Toxic Granulation Not Reportable 02/12/18 06:09 Toxic Vacuolation Not Reportable 02/12/18 06:09 Dohle Bodies Not Reportable 02/12/18 06:09 Pelger-Huet Anomaly Not Reportable 02/12/18 06:09 Opal Rods Not Reportable 02/12/18 06:09 Platelet Estimate Cons 02/12/18 06:09 Clumped Platelets Not Reportable 02/12/18 06:09 Plt Clumps, EDTA Not Reportable 02/12/18 06:09 Large Platelets Not Reportable 02/12/18 06:09 Giant Platelets Not Reportable 02/12/18 06:09 Platelet Satelliting Not Reportable 02/12/18 06:09 Plt Morphology Comment Not Reportable 02/12/18 06:09 RBC Morphology Not Reportable 02/12/18 06:09 Dimorphic RBCs Not Reportable 02/12/18 06:09 Polychromasia Not Reportable 02/12/18 06:09 Hypochromasia Not Reportable 02/12/18 06:09 Poikilocytosis Not Reportable 02/12/18 06:09 Anisocytosis 1+ 02/12/18 06:09 Microcytosis Not Reportable 02/12/18 06:09 Macrocytosis Not Reportable 02/12/18 06:09 Spherocytes Not Reportable 02/12/18 06:09 Pappenheimer Bodies Not Reportable 02/12/18 06:09 Sickle Cells Not Reportable 02/12/18 06:09 Target Cells Not Reportable 02/12/18 06:09 Tear Drop Cells Not Reportable 02/12/18 06:09 Ovalocytes Not Reportable 02/12/18 06:09 Stomatocytes 1+ 02/12/18 06:09 Helmet Cells Not Reportable 02/12/18 06:09 Frank[place] Bodies Not Reportable 02/12/18 06:09 Topmost Rings Not Reportable 02/12/18 06:09 [place] Cells Not Reportable 02/12/18 06:09 Bite Cells Not Reportable 02/12/18 06:09 Crenated Cell Not Reportable 02/12/18 06:09 Elliptocytes Not Reportable 02/12/18 06:09 Acanthocytes (Spur) Not Reportable 02/12/18 06:09 Rouleaux Not Reportable 02/12/18 06:09 Hemoglobin C Crystals Not Reportable 02/12/18 06:09 Schistocytes Not Reportable 02/12/18 06:09 Malaria parasites Not Reportable 02/12/18 06:09 Brock Bodies Not Reportable 02/12/18 06:09 Hem Pathologist Commnt No 02/12/18 06:09 PT 17.5 Sec. (12.2-14.9) H 01/20/18 07:00 INR 1.35 (0.87-1.13) H 01/20/18 07:00 Heparin Anti-Xa, Unfract Negative (Negative) 01/20/18 11:03 POC ABG pH 7.441 (7.35-7.45) 02/04/18 15:05 POC ABG pCO2 43.6 (35-45) 02/04/18 15:05 POC ABG pO2 109 (80-105) H 02/04/18 15:05 POC ABG HCO3 29.7 02/04/18 15:05 POC ABG Total CO2 31 02/04/18 15:05 POC ABG O2 Sat 98 02/04/18 15:05 POC ABG Base Excess 6 02/04/18 15:05 VBG pH 7.273 (7.320-7.420) L 01/17/18 16:54 FiO2 35 % 02/04/18 15:05 Sodium 142 mmol/L (137-145) 02/14/18 06:04 Potassium 3.4 mmol/L (3.6-5.0) L 02/14/18 06:04 Chloride 103.0 mmol/L (98-107) 02/14/18 06:04 Carbon Dioxide 25 mmol/L (22-30) 02/14/18 06:04 Anion Gap 17 mmol/L 02/14/18 06:04 BUN 20 mg/dL (7-17) H 02/14/18 06:04 Creatinine 0.9 mg/dL (0.7-1.2) 02/14/18 06:04 Estimated GFR > 60 ml/min 02/14/18 06:04 BUN/Creatinine Ratio 22 % 02/14/18 06:04 Glucose 91 mg/dL (65-100) 04/06/18 06:04 POC Glucose 122 (70-105) H 02/15/18 01:26 Hemoglobin A1c 9.0 % (4-6) H 01/17/18 22:36 Lactic Acid 1.40 mmol/L (0.7-2.0) 01/24/18 15:08 Calcium 7.9 mg/dL (8.4-10.2) L 02/14/18 06:04 Ionized Calcium 3.9 mg/dL (4.8-5.6) L 01/29/18 06:00 Magnesium 1.80 mg/dL (1.7-2.3) 01/29/18 06:00 Total Bilirubin 0.50 mg/dL (0.1-1.2) 01/29/18 06:00 AST 21 units/L (5-40) 01/29/18 06:00 ALT 53 units/L (7-56) 01/29/18 06:00 Alkaline Phosphatase 88 units/L (35-129) 01/29/18 06:00 C-Reactive Protein 3.30 mg/dL (0.00-1.30) H 01/24/18 15:08 Total Protein 4.5 g/dL (6.3-8.2) L 01/29/18 06:00 Albumin 2.0 g/dL (3.9-5) L 01/29/18 06:00 Albumin/Globulin Ratio 0.8 % 01/29/18 06:00 Serotonin Release Assay See scanned report 01/20/18 11:03 Random Vancomycin 19.8 ug/mL (0-40.0) 01/27/18 05:20 ALISA Screen Negative (Negative) 01/20/18 Unknown Heparin-induced Plt Ab Negative (Negative) 01/20/18 11:03 UF Heparin High Dose 0 % Release 01/20/18 11:03 NEGRITA UFH Low Dose 0.1 0 % Release 01/20/18 11:03 NEGRITA UFH Low Dose 0.5 0 % Release 01/20/18 11:03 Complement C3 47 mg/dL (83-193) L 01/20/18 Unknown Complement C4 9 mg/dL (15-57) L 01/20/18 Unknown Hepatitis A IgM Ab Non-reactive (NonReactive) 01/20/18 07:00 Hep Bs Antigen Non-reactive (Negative) 01/20/18 07:00 Hep B Core IgM Ab Non-reactive (NonReactive) 01/20/18 07:00 Hepatitis C Antibody Non-reactive (NonReactive) 01/20/18 07:00 HIV 1&2 Antibody Rapid Non react (Non React) 01/20/18 Unknown HIV P24 Antigen Non react (Non React) 01/20/18 Unknown Blood Type B NEGATIVE 02/10/18 17:04 Antibody Screen Negative 02/10/18 17:04 Crossmatch See Detail 02/10/18 17:04
--- NOTE | 2018-02-15 14:35 | Progress Note ---
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 Hyperkalemia History of cocaine abuse, Acute encephalopathy Lactic acidosis Thrombocytopenia - s/p left chest tube for spontaneous pneumothorax and now removed - continue seroquel re: delirium issues prior but taper to off as tolerated slowly - continue HD/UF per nephrology for toxin and volume clearance (M/W/F) - continue VTE prophylaxis with eliquis - trend CRP & lactate (Significantly improved) - tapered off steroids - continue stress ulcer prophylaxis - off antibiotics - continue supplemental oxygen to wean for oxygen saturations >90% - continue other care per attending/other consultants - d/c planning ongoing concurrently .... ' Subjective Date of service: 02/15/18 Principal diagnosis: Acute hypoxic respiratory failure, severe sepsis with shock , encephalopathy Interval history: Patient seen today for: Acute hypoxic respiratory failure, severe sepsis with shock, encephalopathy Seen and examined at bedside; 24-hour events reviewed; nursing and respiratory care staff consulted; no adverse overnight events reported to me; alert; denies acute chest pains or increased SOB; chest tube pulled; no cough or hemoptysis; still with digital gangrene. Objective Vital Signs - 12hr 02/15/18 02/15/18 02/15/18 04:35 07:37 08:36 Temperature 99.1 F 99.2 F Pulse Rate 87 85 Pulse Rate [ 91 H Bilateral Throughout] Respiratory 18 20 Rate Respiratory Rate [Bilateral Leg] Respiratory 18 Rate [Bilateral Throughout] Blood Pressure 95/47 116/56 O2 Sat by Pulse 93 90 Oximetry 02/15/18 02/15/18 02/15/18 08:58 09:46 09:59 Temperature Pulse Rate Pulse Rate [ 92 H Bilateral Throughout] Respiratory 18 20 Rate Respiratory Rate [Bilateral Leg] Respiratory 18 Rate [Bilateral Throughout] Blood Pressure O2 Sat by Pulse Oximetry 02/15/18 10:00 Temperature Pulse Rate 85 Pulse Rate [ Bilateral Throughout] Respiratory Rate Respiratory 18 Rate [Bilateral Leg] Respiratory Rate [Bilateral Throughout] Blood Pressure O2 Sat by Pulse Oximetry Constitutional: no acute distress Eyes: non-icteric ENT: oropharynx moist, other (mallampatti 3) Neck: supple, no lymphadenopathy, no JVD, other (no thyromegaly) Effort: mildly labored Ascultation: Bilateral: diminished breath sounds, rales Percussion: Bilateral: not dull Cardiovascular: regular rate and rhythm, other (no rubs or murmurs) Gastrointestinal: normoactive bowel sounds, soft, non-tender, non-distended, other (no [place] HSM) Integumentary: normal Extremities: no cyanosis, no edema, pink and warm, pulses normal Neurologic: normal mental status, non-focal exam (grossly), pupils equal and round, CN II-XII normal, motor strength normal and Psychiatric: mood appropriate, affect normal CBC and BMP: 02/12/18 06:09 02/14/18 06:04 ABG, PT/INR, D-dimer: ABG POC ABG pH 7.441 (7.35-7.45) 02/04/18 15:05 POC ABG pCO2 43.6 (35-45) 02/04/18 15:05 POC ABG pO2 109 (80-105) H 02/04/18 15:05 POC ABG HCO3 29.7 02/04/18 15:05 POC ABG Total CO2 31 02/04/18 15:05 POC ABG O2 Sat 98 02/04/18 15:05 PT/INR, D-dimer PT 17.5 Sec. (12.2-14.9) H 01/20/18 07:00 INR 1.35 (0.87-1.13) H 01/20/18 07:00 Abnormal lab findings: Abnormal Labs 01/17/18 01/17/18 01/17/18 15:25 16:15 16:48 WBC RBC Hgb Hct MCH RDW Plt Count Lymph % (Auto) [place] % (Auto) Lymph # [place] # Seg Neutrophils % Seg Neuts % (Manual) Lymphocytes % (Manual) Monocytes % (Manual) Eosinophils % (Manual) Nucleated RBC % Seg Neutrophils # Seg Neutrophils # Man Lymphocytes # (Manual) Monocytes # (Manual) PT INR POC ABG pH 7.099 L POC ABG pCO2 58.9 H POC ABG pO2 149 H VBG pH Sodium Potassium Chloride Carbon Dioxide BUN Creatinine Glucose POC Glucose < 40 L 121 H Hemoglobin A1c Lactic Acid Calcium Ionized Calcium Total Bilirubin AST ALT Alkaline Phosphatase C-Reactive Protein Total Protein Albumin Complement C3 Complement C4 Crossmatch 01/17/18 01/17/18 01/17/18 16:54 16:54 16:54 WBC RBC Hgb Hct MCH RDW Plt Count Lymph % (Auto) [place] % (Auto) Lymph # [place] # Seg Neutrophils % Seg Neuts % (Manual) 72.0 H Lymphocytes % (Manual) 3.0 L Monocytes % (Manual) Eosinophils % (Manual) Nucleated RBC % Seg Neutrophils # Seg Neutrophils # Man Lymphocytes # (Manual) 0.2 L Monocytes # (Manual) PT 18.5 H INR 1.45 H POC ABG pH POC ABG pCO2 POC ABG pO2 VBG pH Sodium 136 L Potassium Chloride 97.8 L Carbon Dioxide 16 L BUN 43 H Creatinine 3.3 H Glucose 121 H POC Glucose Hemoglobin A1c Lactic Acid Calcium 6.7 L Ionized Calcium Total Bilirubin AST ALT Alkaline Phosphatase C-Reactive Protein Total Protein 4.4 L Albumin 2.3 L Complement C3 Complement C4 Crossmatch 01/17/18 01/17/18 01/17/18 16:54 16:54 17:11 WBC RBC Hgb Hct MCH RDW Plt Count Lymph % (Auto) [place] % (Auto) Lymph # [place] # Seg Neutrophils % Seg Neuts % (Manual) Lymphocytes % (Manual) Monocytes % (Manual) Eosinophils % (Manual) Nucleated RBC % Seg Neutrophils # Seg Neutrophils # Man Lymphocytes # (Manual) Monocytes # (Manual) PT INR POC ABG pH POC ABG pCO2 POC ABG pO2 VBG pH 7.273 L Sodium Potassium Chloride Carbon Dioxide BUN Creatinine Glucose POC Glucose Hemoglobin A1c Lactic Acid 4.70 H* 4.30 H* Calcium Ionized Calcium Total Bilirubin AST ALT Alkaline Phosphatase C-Reactive Protein Total Protein Albumin Complement C3 Complement C4 Crossmatch 01/17/18 01/17/18 01/17/18 18:02 18:15 19:21 WBC RBC Hgb Hct MCH RDW Plt Count Lymph % (Auto) [place] % (Auto) Lymph # [place] # Seg Neutrophils % Seg Neuts % (Manual) Lymphocytes % (Manual) Monocytes % (Manual) Eosinophils % (Manual) Nucleated RBC % Seg Neutrophils # Seg Neutrophils # Man Lymphocytes # (Manual) Monocytes # (Manual) PT INR POC ABG pH 7.177 L POC ABG pCO2 POC ABG pO2 VBG pH Sodium Potassium Chloride Carbon Dioxide BUN Creatinine Glucose POC Glucose < 40 L Hemoglobin A1c Lactic Acid 3.00 H* Calcium Ionized Calcium Total Bilirubin AST ALT Alkaline Phosphatase C-Reactive Protein Total Protein Albumin Complement C3 Complement C4 Crossmatch 01/17/18 01/17/18 01/17/18 22:36 22:36 23:16 WBC RBC Hgb Hct MCH RDW Plt Count Lymph % (Auto) [place] % (Auto) Lymph # [place] # Seg Neutrophils % Seg Neuts % (Manual) Lymphocytes % (Manual) Monocytes % (Manual) Eosinophils % (Manual) Nucleated RBC % Seg Neutrophils # Seg Neutrophils # Man Lymphocytes # (Manual) Monocytes # (Manual) PT INR POC ABG pH 7.112 L POC ABG pCO2 50.1 H POC ABG pO2 50 L VBG pH Sodium Potassium Chloride Carbon Dioxide BUN Creatinine Glucose POC Glucose Hemoglobin A1c 9.0 H Lactic Acid 5.50 H* Calcium Ionized Calcium Total Bilirubin AST ALT Alkaline Phosphatase C-Reactive Protein Total Protein Albumin Complement C3 Complement C4 Crossmatch 01/18/18 01/18/18 01/18/18 01:26 03:21 03:21 WBC RBC Hgb Hct MCH RDW Plt Count Lymph % (Auto) [place] % (Auto) Lymph # [place] # Seg Neutrophils % Seg Neuts % (Manual) 27.0 L Lymphocytes % (Manual) 3.0 L Monocytes % (Manual) 14.0 H Eosinophils % (Manual) Nucleated RBC % Seg Neutrophils # Seg Neutrophils # Man Lymphocytes # (Manual) 0.3 L Monocytes # (Manual) 1.4 H PT INR POC ABG pH POC ABG pCO2 POC ABG pO2 VBG pH Sodium Potassium Chloride Carbon Dioxide BUN Creatinine Glucose POC Glucose 107 H Hemoglobin A1c Lactic Acid 8.00 H* Calcium Ionized Calcium Total Bilirubin AST ALT Alkaline Phosphatase C-Reactive Protein Total Protein Albumin Complement C3 Complement C4 Crossmatch 01/18/18 01/18/18 01/18/18 03:21 04:40 05:07 WBC RBC Hgb Hct MCH RDW Plt Count Lymph % (Auto) [place] % (Auto) Lymph # [place] # Seg Neutrophils % Seg Neuts % (Manual) Lymphocytes % (Manual) Monocytes % (Manual) Eosinophils % (Manual) Nucleated RBC % Seg Neutrophils # Seg Neutrophils # Man Lymphocytes # (Manual) Monocytes # (Manual) PT INR POC ABG pH 7.093 L POC ABG pCO2 31.5 L POC ABG pO2 77 L VBG pH Sodium Potassium Chloride 96.9 L Carbon Dioxide 14 L BUN 47 H Creatinine 3.4 H Glucose POC Glucose Hemoglobin A1c Lactic Acid 11.10 H* Calcium 6.4 L Ionized Calcium Total Bilirubin AST 47 H ALT Alkaline Phosphatase C-Reactive Protein Total Protein 4.3 L Albumin 2.4 L Complement C3 Complement C4 Crossmatch 01/18/18 01/18/18 01/18/18 06:29 07:06 11:44 WBC RBC Hgb Hct MCH RDW Plt Count Lymph % (Auto) [place] % (Auto) Lymph # [place] # Seg Neutrophils % Seg Neuts % (Manual) Lymphocytes % (Manual) Monocytes % (Manual) Eosinophils % (Manual) Nucleated RBC % Seg Neutrophils # Seg Neutrophils # Man Lymphocytes # (Manual) Monocytes # (Manual) PT INR POC ABG pH POC ABG pCO2 POC ABG pO2 VBG pH Sodium Potassium Chloride Carbon Dioxide BUN Creatinine Glucose POC Glucose 47 L 149 H < 40 L Hemoglobin A1c Lactic Acid Calcium Ionized Calcium Total Bilirubin AST ALT Alkaline Phosphatase C-Reactive Protein Total Protein Albumin Complement C3 Complement C4 Crossmatch 01/18/18 01/18/18 01/18/18 11:46 14:15 18:01 WBC RBC Hgb Hct MCH RDW Plt Count Lymph % (Auto) [place] % (Auto) Lymph # [place] # Seg Neutrophils % Seg Neuts % (Manual) Lymphocytes % (Manual) Monocytes % (Manual) Eosinophils % (Manual) Nucleated RBC % Seg Neutrophils # Seg Neutrophils # Man Lymphocytes # (Manual) Monocytes # (Manual) PT INR POC ABG pH POC ABG pCO2 POC ABG pO2 VBG pH Sodium Potassium Chloride Carbon Dioxide BUN Creatinine Glucose POC Glucose 116 H < 40 L Hemoglobin A1c Lactic Acid 10.00 H* Calcium Ionized Calcium Total Bilirubin AST ALT Alkaline Phosphatase C-Reactive Protein Total Protein Albumin Complement C3 Complement C4 Crossmatch 01/18/18 01/18/18 01/18/18 18:02 23:25 23:27 WBC RBC Hgb Hct MCH RDW Plt Count Lymph % (Auto) [place] % (Auto) Lymph # [place] # Seg Neutrophils % Seg Neuts % (Manual) Lymphocytes % (Manual) Monocytes % (Manual) Eosinophils % (Manual) Nucleated RBC % Seg Neutrophils # Seg Neutrophils # Man Lymphocytes # (Manual) Monocytes # (Manual) PT INR POC ABG pH POC ABG pCO2 POC ABG pO2 VBG pH Sodium Potassium Chloride Carbon Dioxide BUN Creatinine Glucose POC Glucose 136 H < 40 L < 40 L Hemoglobin A1c Lactic Acid Calcium Ionized Calcium Total Bilirubin AST ALT Alkaline Phosphatase C-Reactive Protein Total Protein Albumin Complement C3 Complement C4 Crossmatch 01/19/18 01/19/18 01/19/18 04:02 06:50 06:50 WBC 18.5 H RBC Hgb Hct MCH RDW Plt Count 136 L Lymph % (Auto) [place] % (Auto) Lymph # [place] # Seg Neutrophils % Seg Neuts % (Manual) 86.0 H Lymphocytes % (Manual) 4.0 L Monocytes % (Manual) Eosinophils % (Manual) Nucleated RBC % Seg Neutrophils # Seg Neutrophils # Man 15.9 H Lymphocytes # (Manual) 0.7 L Monocytes # (Manual) 1.1 H PT 21.3 H INR 1.73 H POC ABG pH POC ABG pCO2 28.3 L POC ABG pO2 57 L VBG pH Sodium Potassium Chloride Carbon Dioxide BUN Creatinine Glucose POC Glucose Hemoglobin A1c Lactic Acid Calcium Ionized Calcium Total Bilirubin AST ALT Alkaline Phosphatase C-Reactive Protein Total Protein Albumin Complement C3 Complement C4 Crossmatch 01/19/18 01/19/18 01/19/18 06:50 08:45 11:17 WBC RBC Hgb Hct MCH RDW Plt Count Lymph % (Auto) [place] % (Auto) Lymph # [place] # Seg Neutrophils % Seg Neuts % (Manual) Lymphocytes % (Manual) Monocytes % (Manual) Eosinophils % (Manual) Nucleated RBC % Seg Neutrophils # Seg Neutrophils # Man Lymphocytes # (Manual) Monocytes # (Manual) PT INR POC ABG pH POC ABG pCO2 POC ABG pO2 VBG pH Sodium 135 L Potassium Chloride 92.8 L Carbon Dioxide 19 L BUN 31 H Creatinine 2.6 H Glucose POC Glucose 110 H Hemoglobin A1c Lactic Acid 7.90 H* Calcium 7.1 L Ionized Calcium Total Bilirubin 1.60 H AST 2526 H ALT 1187 H Alkaline Phosphatase 133 H C-Reactive Protein Total Protein 4.8 L Albumin 2.0 L Complement C3 Complement C4 Crossmatch 01/19/18 01/19/18 01/19/18 11:31 22:12 23:34 WBC RBC Hgb Hct MCH RDW Plt Count Lymph % (Auto) [place] % (Auto) Lymph # [place] # Seg Neutrophils % Seg Neuts % (Manual) Lymphocytes % (Manual) Monocytes % (Manual) Eosinophils % (Manual) Nucleated RBC % Seg Neutrophils # Seg Neutrophils # Man Lymphocytes # (Manual) Monocytes # (Manual) PT INR POC ABG pH POC ABG pCO2 31.6 L POC ABG pO2 59 L VBG pH Sodium Potassium Chloride Carbon Dioxide BUN Creatinine Glucose POC Glucose 131 H 53 L Hemoglobin A1c Lactic Acid Calcium Ionized Calcium Total Bilirubin AST ALT Alkaline Phosphatase C-Reactive Protein Total Protein Albumin Complement C3 Complement C4 Crossmatch 01/20/18 01/20/18 01/20/18 05:18 05:18 05:19 WBC 19.7 H RBC Hgb Hct MCH 27 L RDW Plt Count 84 L Lymph % (Auto) [place] % (Auto) Lymph # [place] # Seg Neutrophils % Seg Neuts % (Manual) 84.0 H Lymphocytes % (Manual) 2.0 L Monocytes % (Manual) 8.0 H Eosinophils % (Manual) Nucleated RBC % Seg Neutrophils # Seg Neutrophils # Man 16.5 H Lymphocytes # (Manual) 0.4 L Monocytes # (Manual) 1.6 H PT INR POC ABG pH POC ABG pCO2 POC ABG pO2 VBG pH Sodium 136 L Potassium Chloride 96.9 L Carbon Dioxide 17 L BUN 65 H Creatinine 4.1 H D Glucose 104 H POC Glucose 125 H Hemoglobin A1c Lactic Acid Calcium 7.1 L Ionized Calcium Total Bilirubin 1.60 H AST 1702 H ALT 1141 H Alkaline Phosphatase 172 H C-Reactive Protein Total Protein 5.0 L Albumin 1.7 L Complement C3 Complement C4 Crossmatch 01/20/18 01/20/18 01/20/18 07:00 11:48 13:54 WBC RBC Hgb Hct MCH RDW Plt Count Lymph % (Auto) [place] % (Auto) Lymph # [place] # Seg Neutrophils % Seg Neuts % (Manual) Lymphocytes % (Manual) Monocytes % (Manual) Eosinophils % (Manual) Nucleated RBC % Seg Neutrophils # Seg Neutrophils # Man Lymphocytes # (Manual) Monocytes # (Manual) PT 17.5 H INR 1.35 H POC ABG pH POC ABG pCO2 POC ABG pO2 VBG pH Sodium Potassium Chloride Carbon Dioxide BUN Creatinine Glucose POC Glucose 109 H Hemoglobin A1c Lactic Acid Calcium Ionized Calcium Total Bilirubin AST ALT Alkaline Phosphatase C-Reactive Protein 37.50 H Total Protein Albumin Complement C3 Complement C4 Crossmatch 01/20/18 01/20/18 01/20/18 17:28 17:51 20:50 WBC RBC Hgb Hct MCH RDW Plt Count Lymph % (Auto) [place] % (Auto) Lymph # [place] # Seg Neutrophils % Seg Neuts % (Manual) Lymphocytes % (Manual) Monocytes % (Manual) Eosinophils % (Manual) Nucleated RBC % Seg Neutrophils # Seg Neutrophils # Man Lymphocytes # (Manual) Monocytes # (Manual) PT INR POC ABG pH POC ABG pCO2 POC ABG pO2 VBG pH Sodium Potassium Chloride Carbon Dioxide BUN Creatinine Glucose POC Glucose 140 H Hemoglobin A1c Lactic Acid 2.70 H* 2.30 H* Calcium Ionized Calcium Total Bilirubin AST ALT Alkaline Phosphatase C-Reactive Protein Total Protein Albumin Complement C3 Complement C4 Crossmatch 01/20/18 01/20/18 01/20/18 23:55 Unknown Unknown WBC RBC Hgb Hct MCH RDW Plt Count Lymph % (Auto) [place] % (Auto) Lymph # [place] # Seg Neutrophils % Seg Neuts % (Manual) Lymphocytes % (Manual) Monocytes % (Manual) Eosinophils % (Manual) Nucleated RBC % Seg Neutrophils # Seg Neutrophils # Man Lymphocytes # (Manual) Monocytes # (Manual) PT INR POC ABG pH POC ABG pCO2 POC ABG pO2 VBG pH Sodium Potassium Chloride Carbon Dioxide BUN Creatinine Glucose POC Glucose 149 H Hemoglobin A1c Lactic Acid 2.50 H* Calcium Ionized Calcium Total Bilirubin AST ALT Alkaline Phosphatase C-Reactive Protein Total Protein Albumin Complement C3 47 L Complement C4 Crossmatch 01/20/18 01/21/18 01/21/18 Unknown 00:12 04:27 WBC RBC Hgb Hct MCH RDW Plt Count Lymph % (Auto) [place] % (Auto) Lymph # [place] # Seg Neutrophils % Seg Neuts % (Manual) Lymphocytes % (Manual) Monocytes % (Manual) Eosinophils % (Manual) Nucleated RBC % Seg Neutrophils # Seg Neutrophils # Man Lymphocytes # (Manual) Monocytes # (Manual) PT INR POC ABG pH POC ABG pCO2 33.8 L POC ABG pO2 72 L VBG pH Sodium Potassium Chloride Carbon Dioxide BUN Creatinine Glucose POC Glucose 134 H Hemoglobin A1c Lactic Acid Calcium Ionized Calcium Total Bilirubin AST ALT Alkaline Phosphatase C-Reactive Protein Total Protein Albumin Complement C3 Complement C4 9 L Crossmatch 01/21/18 01/21/18 01/21/18 05:00 05:00 05:00 WBC 21.7 H RBC Hgb Hct MCH 27 L RDW Plt Count 67 L Lymph % (Auto) [place] % (Auto) Lymph # [place] # Seg Neutrophils % Seg Neuts % (Manual) 71.0 H Lymphocytes % (Manual) 9.0 L Monocytes % (Manual) Eosinophils % (Manual) Nucleated RBC % 4.0 H Seg Neutrophils # Seg Neutrophils # Man 15.4 H Lymphocytes # (Manual) Monocytes # (Manual) PT INR POC ABG pH POC ABG pCO2 POC ABG pO2 VBG pH Sodium Potassium Chloride Carbon Dioxide 21 L BUN 71 H Creatinine 4.1 H Glucose 149 H POC Glucose Hemoglobin A1c Lactic Acid 2.10 H* Calcium 7.5 L Ionized Calcium Total Bilirubin AST 494 H ALT 780 H Alkaline Phosphatase 151 H C-Reactive Protein Total Protein 4.9 L Albumin 1.9 L Complement C3 Complement C4 Crossmatch 01/21/18 01/21/18 01/21/18 05:18 12:20 18:07 WBC RBC Hgb Hct MCH RDW Plt Count Lymph % (Auto) [place] % (Auto) Lymph # [place] # Seg Neutrophils % Seg Neuts % (Manual) Lymphocytes % (Manual) Monocytes % (Manual) Eosinophils % (Manual) Nucleated RBC % Seg Neutrophils # Seg Neutrophils # Man Lymphocytes # (Manual) Monocytes # (Manual) PT INR POC ABG pH POC ABG pCO2 POC ABG pO2 VBG pH Sodium Potassium Chloride Carbon Dioxide BUN Creatinine Glucose POC Glucose 132 H 158 H 143 H Hemoglobin A1c Lactic Acid Calcium Ionized Calcium Total Bilirubin AST ALT Alkaline Phosphatase C-Reactive Protein Total Protein Albumin Complement C3 Complement C4 Crossmatch 01/21/18 01/22/18 01/22/18 23:40 03:48 04:10 WBC 24.9 H RBC Hgb Hct MCH 27 L RDW Plt Count 80 L Lymph % (Auto) [place] % (Auto) Lymph # [place] # Seg Neutrophils % Seg Neuts % (Manual) Lymphocytes % (Manual) Monocytes % (Manual) Eosinophils % (Manual) Nucleated RBC % Seg Neutrophils # Seg Neutrophils # Man Lymphocytes # (Manual) Monocytes # (Manual) PT INR POC ABG pH POC ABG pCO2 POC ABG pO2 65 L VBG pH Sodium Potassium Chloride Carbon Dioxide BUN Creatinine Glucose POC Glucose 136 H Hemoglobin A1c Lactic Acid Calcium Ionized Calcium Total Bilirubin AST ALT Alkaline Phosphatase C-Reactive Protein Total Protein Albumin Complement C3 Complement C4 Crossmatch 01/22/18 01/22/18 01/22/18 04:10 05:56 11:30 WBC RBC Hgb Hct MCH RDW Plt Count Lymph % (Auto) [place] % (Auto) Lymph # [place] # Seg Neutrophils % Seg Neuts % (Manual) Lymphocytes % (Manual) Monocytes % (Manual) Eosinophils % (Manual) Nucleated RBC % Seg Neutrophils # Seg Neutrophils # Man Lymphocytes # (Manual) Monocytes # (Manual) PT INR POC ABG pH POC ABG pCO2 POC ABG pO2 VBG pH Sodium Potassium Chloride 97.7 L Carbon Dioxide BUN 72 H Creatinine 3.6 H Glucose 145 H POC Glucose 139 H 156 H Hemoglobin A1c Lactic Acid Calcium 7.3 L Ionized Calcium Total Bilirubin AST 146 H ALT 547 H Alkaline Phosphatase C-Reactive Protein Total Protein 5.2 L Albumin 2.3 L Complement C3 Complement C4 Crossmatch 01/22/18 01/23/18 01/23/18 17:41 00:00 04:39 WBC RBC Hgb Hct MCH RDW Plt Count Lymph % (Auto) [place] % (Auto) Lymph # [place] # Seg Neutrophils % Seg Neuts % (Manual) Lymphocytes % (Manual) Monocytes % (Manual) Eosinophils % (Manual) Nucleated RBC % Seg Neutrophils # Seg Neutrophils # Man Lymphocytes # (Manual) Monocytes # (Manual) PT INR POC ABG pH POC ABG pCO2 31.9 L POC ABG pO2 62 L VBG pH Sodium Potassium Chloride Carbon Dioxide BUN Creatinine Glucose POC Glucose 185 H 150 H Hemoglobin A1c Lactic Acid Calcium Ionized Calcium Total Bilirubin AST ALT Alkaline Phosphatase C-Reactive Protein Total Protein Albumin Complement C3 Complement C4 Crossmatch 01/23/18 01/23/18 01/23/18 05:24 11:38 14:20 WBC RBC Hgb Hct MCH RDW Plt Count Lymph % (Auto) [place] % (Auto) Lymph # [place] # Seg Neutrophils % Seg Neuts % (Manual) Lymphocytes % (Manual) Monocytes % (Manual) Eosinophils % (Manual) Nucleated RBC % Seg Neutrophils # Seg Neutrophils # Man Lymphocytes # (Manual) Monocytes # (Manual) PT INR POC ABG pH POC ABG pCO2 31.4 L POC ABG pO2 55 L VBG pH Sodium Potassium Chloride Carbon Dioxide BUN Creatinine Glucose POC Glucose 215 H 182 H Hemoglobin A1c Lactic Acid Calcium Ionized Calcium Total Bilirubin AST ALT Alkaline Phosphatase C-Reactive Protein Total Protein Albumin Complement C3 Complement C4 Crossmatch 01/23/18 01/24/18 01/24/18 17:26 00:10 03:40 WBC 34.5 H RBC Hgb Hct MCH 27 L RDW Plt Count 130 L Lymph % (Auto) [place] % (Auto) Lymph # [place] # Seg Neutrophils % Seg Neuts % (Manual) Lymphocytes % (Manual) Monocytes % (Manual) Eosinophils % (Manual) Nucleated RBC % Seg Neutrophils # Seg Neutrophils # Man Lymphocytes # (Manual) Monocytes # (Manual) PT INR POC ABG pH POC ABG pCO2 POC ABG pO2 VBG pH Sodium Potassium Chloride Carbon Dioxide BUN Creatinine Glucose POC Glucose 252 H 225 H Hemoglobin A1c Lactic Acid Calcium Ionized Calcium Total Bilirubin AST ALT Alkaline Phosphatase C-Reactive Protein Total Protein Albumin Complement C3 Complement C4 Crossmatch 01/24/18 01/24/18 01/24/18 03:40 06:06 11:36 WBC RBC Hgb Hct MCH RDW Plt Count Lymph % (Auto) [place] % (Auto) Lymph # [place] # Seg Neutrophils % Seg Neuts % (Manual) Lymphocytes % (Manual) Monocytes % (Manual) Eosinophils % (Manual) Nucleated RBC % Seg Neutrophils # Seg Neutrophils # Man Lymphocytes # (Manual) Monocytes # (Manual) PT INR POC ABG pH POC ABG pCO2 POC ABG pO2 VBG pH Sodium Potassium 5.7 H D Chloride 95.6 L Carbon Dioxide 20 L BUN 96 H Creatinine 4.2 H Glucose 166 H POC Glucose 162 H 160 H Hemoglobin A1c Lactic Acid Calcium 7.3 L Ionized Calcium Total Bilirubin AST 52 H ALT 235 H Alkaline Phosphatase C-Reactive Protein Total Protein 5.1 L Albumin 2.5 L Complement C3 Complement C4 Crossmatch 01/24/18 01/24/18 01/25/18 15:08 17:32 00:04 WBC RBC Hgb Hct MCH RDW Plt Count Lymph % (Auto) [place] % (Auto) Lymph # [place] # Seg Neutrophils % Seg Neuts % (Manual) Lymphocytes % (Manual) Monocytes % (Manual) Eosinophils % (Manual) Nucleated RBC % Seg Neutrophils # Seg Neutrophils # Man Lymphocytes # (Manual) Monocytes # (Manual) PT INR POC ABG pH POC ABG pCO2 POC ABG pO2 VBG pH Sodium Potassium Chloride Carbon Dioxide BUN Creatinine Glucose POC Glucose 160 H 169 H Hemoglobin A1c Lactic Acid Calcium Ionized Calcium Total Bilirubin AST ALT Alkaline Phosphatase C-Reactive Protein 3.30 H Total Protein Albumin Complement C3 Complement C4 Crossmatch 01/25/18 01/25/18 01/25/18 04:34 05:25 11:46 WBC RBC Hgb Hct MCH RDW Plt Count Lymph % (Auto) [place] % (Auto) Lymph # [place] # Seg Neutrophils % Seg Neuts % (Manual) Lymphocytes % (Manual) Monocytes % (Manual) Eosinophils % (Manual) Nucleated RBC % Seg Neutrophils # Seg Neutrophils # Man Lymphocytes # (Manual) Monocytes # (Manual) PT INR POC ABG pH 7.342 L POC ABG pCO2 48.7 H POC ABG pO2 VBG pH Sodium Potassium Chloride Carbon Dioxide BUN Creatinine Glucose POC Glucose 133 H 121 H Hemoglobin A1c Lactic Acid Calcium Ionized Calcium Total Bilirubin AST ALT Alkaline Phosphatase C-Reactive Protein Total Protein Albumin Complement C3 Complement C4 Crossmatch 01/25/18 01/25/18 01/26/18 17:42 23:50 04:13 WBC RBC Hgb Hct MCH RDW Plt Count Lymph % (Auto) [place] % (Auto) Lymph # [place] # Seg Neutrophils % Seg Neuts % (Manual) Lymphocytes % (Manual) Monocytes % (Manual) Eosinophils % (Manual) Nucleated RBC % Seg Neutrophils # Seg Neutrophils # Man Lymphocytes # (Manual) Monocytes # (Manual) PT INR POC ABG pH POC ABG pCO2 POC ABG pO2 70 L VBG pH Sodium Potassium Chloride Carbon Dioxide BUN Creatinine Glucose POC Glucose 150 H 149 H Hemoglobin A1c Lactic Acid Calcium Ionized Calcium Total Bilirubin AST ALT Alkaline Phosphatase C-Reactive Protein Total Protein Albumin Complement C3 Complement C4 Crossmatch 01/26/18 01/26/18 01/26/18 05:25 06:20 06:20 WBC 21.0 H RBC Hgb Hct MCH RDW Plt Count Lymph % (Auto) [place] % (Auto) Lymph # [place] # Seg Neutrophils % Seg Neuts % (Manual) 95.0 H Lymphocytes % (Manual) 1.0 L Monocytes % (Manual) Eosinophils % (Manual) Nucleated RBC % Seg Neutrophils # Seg Neutrophils # Man 20.0 H Lymphocytes # (Manual) 0.2 L Monocytes # (Manual) PT INR POC ABG pH POC ABG pCO2 POC ABG pO2 VBG pH Sodium Potassium 5.9 H Chloride 95.7 L Carbon Dioxide BUN 102 H Creatinine 4.6 H Glucose POC Glucose 107 H Hemoglobin A1c Lactic Acid Calcium 6.6 L Ionized Calcium Total Bilirubin AST ALT Alkaline Phosphatase C-Reactive Protein Total Protein Albumin Complement C3 Complement C4 Crossmatch 01/26/18 01/26/18 01/27/18 12:19 18:09 00:17 WBC RBC Hgb Hct MCH RDW Plt Count Lymph % (Auto) [place] % (Auto) Lymph # [place] # Seg Neutrophils % Seg Neuts % (Manual) Lymphocytes % (Manual) Monocytes % (Manual) Eosinophils % (Manual) Nucleated RBC % Seg Neutrophils # Seg Neutrophils # Man Lymphocytes # (Manual) Monocytes # (Manual) PT INR POC ABG pH POC ABG pCO2 POC ABG pO2 VBG pH Sodium Potassium Chloride Carbon Dioxide BUN Creatinine Glucose POC Glucose 151 H 110 H 159 H Hemoglobin A1c Lactic Acid Calcium Ionized Calcium Total Bilirubin AST ALT Alkaline Phosphatase C-Reactive Protein Total Protein Albumin Complement C3 Complement C4 Crossmatch 01/27/18 01/27/18 01/27/18 05:20 05:20 05:43 WBC 23.3 H RBC Hgb Hct MCH 27 L RDW Plt Count Lymph % (Auto) [place] % (Auto) Lymph # [place] # Seg Neutrophils % Seg Neuts % (Manual) 97.0 H Lymphocytes % (Manual) 0 L Monocytes % (Manual) Eosinophils % (Manual) Nucleated RBC % Seg Neutrophils # Seg Neutrophils # Man 22.6 H Lymphocytes # (Manual) 0.0 L Monocytes # (Manual) PT INR POC ABG pH POC ABG pCO2 POC ABG pO2 VBG pH Sodium Potassium 5.7 H Chloride 93.9 L Carbon Dioxide 21 L BUN 121 H Creatinine 5.2 H Glucose 131 H POC Glucose 121 H Hemoglobin A1c Lactic Acid Calcium 6.1 L Ionized Calcium Total Bilirubin AST ALT Alkaline Phosphatase C-Reactive Protein Total Protein Albumin Complement C3 Complement C4 Crossmatch 01/27/18 01/27/18 01/28/18 12:16 17:32 00:05 WBC RBC Hgb Hct MCH RDW Plt Count Lymph % (Auto) [place] % (Auto) Lymph # [place] # Seg Neutrophils % Seg Neuts % (Manual) Lymphocytes % (Manual) Monocytes % (Manual) Eosinophils % (Manual) Nucleated RBC % Seg Neutrophils # Seg Neutrophils # Man Lymphocytes # (Manual) Monocytes # (Manual) PT INR POC ABG pH POC ABG pCO2 POC ABG pO2 VBG pH Sodium Potassium Chloride Carbon Dioxide BUN Creatinine Glucose POC Glucose 161 H 146 H 128 H Hemoglobin A1c Lactic Acid Calcium Ionized Calcium Total Bilirubin AST ALT Alkaline Phosphatase C-Reactive Protein Total Protein Albumin Complement C3 Complement C4 Crossmatch 01/28/18 01/28/18 01/28/18 04:24 05:43 06:30 WBC 24.8 H RBC Hgb Hct MCH RDW Plt Count Lymph % (Auto) [place] % (Auto) Lymph # [place] # Seg Neutrophils % Seg Neuts % (Manual) 91.0 H Lymphocytes % (Manual) 4.0 L Monocytes % (Manual) Eosinophils % (Manual) Nucleated RBC % Seg Neutrophils # Seg Neutrophils # Man 22.6 H Lymphocytes # (Manual) 1.0 L Monocytes # (Manual) 1.0 H PT INR POC ABG pH POC ABG pCO2 POC ABG pO2 77 L VBG pH Sodium Potassium Chloride Carbon Dioxide BUN Creatinine Glucose POC Glucose 137 H Hemoglobin A1c Lactic Acid Calcium Ionized Calcium Total Bilirubin AST ALT Alkaline Phosphatase C-Reactive Protein Total Protein Albumin Complement C3 Complement C4 Crossmatch 01/28/18 01/28/18 01/28/18 06:30 11:30 18:08 WBC RBC Hgb Hct MCH RDW Plt Count Lymph % (Auto) [place] % (Auto) Lymph # [place] # Seg Neutrophils % Seg Neuts % (Manual) Lymphocytes % (Manual) Monocytes % (Manual) Eosinophils % (Manual) Nucleated RBC % Seg Neutrophils # Seg Neutrophils # Man Lymphocytes # (Manual) Monocytes # (Manual) PT INR POC ABG pH POC ABG pCO2 POC ABG pO2 VBG pH Sodium Potassium Chloride 95.2 L Carbon Dioxide BUN 70 H Creatinine 3.7 H Glucose 135 H POC Glucose 183 H 129 H Hemoglobin A1c Lactic Acid Calcium 6.4 L Ionized Calcium Total Bilirubin AST ALT Alkaline Phosphatase C-Reactive Protein Total Protein Albumin Complement C3 Complement C4 Crossmatch 01/29/18 01/29/18 01/29/18 00:00 05:50 06:00 WBC 15.8 H RBC 3.37 L Hgb 9.1 L Hct 28.6 L MCH 27 L RDW Plt Count Lymph % (Auto) [place] % (Auto) Lymph # [place] # Seg Neutrophils % Seg Neuts % (Manual) 87.0 H Lymphocytes % (Manual) 7.0 L Monocytes % (Manual) Eosinophils % (Manual) Nucleated RBC % Seg Neutrophils # Seg Neutrophils # Man 13.7 H Lymphocytes # (Manual) 1.1 L Monocytes # (Manual) PT INR POC ABG pH POC ABG pCO2 POC ABG pO2 VBG pH Sodium Potassium Chloride Carbon Dioxide BUN Creatinine Glucose POC Glucose 111 H 120 H Hemoglobin A1c Lactic Acid Calcium Ionized Calcium Total Bilirubin AST ALT Alkaline Phosphatase C-Reactive Protein Total Protein Albumin Complement C3 Complement C4 Crossmatch 01/29/18 01/29/18 01/29/18 06:00 06:00 12:29 WBC RBC Hgb Hct MCH RDW Plt Count Lymph % (Auto) [place] % (Auto) Lymph # [place] # Seg Neutrophils % Seg Neuts % (Manual) Lymphocytes % (Manual) Monocytes % (Manual) Eosinophils % (Manual) Nucleated RBC % Seg Neutrophils # Seg Neutrophils # Man Lymphocytes # (Manual) Monocytes # (Manual) PT INR POC ABG pH POC ABG pCO2 POC ABG pO2 VBG pH Sodium 136 L Potassium Chloride 95.4 L Carbon Dioxide BUN 94 H Creatinine 4.2 H Glucose 120 H POC Glucose 134 H Hemoglobin A1c Lactic Acid Calcium 6.5 L Ionized Calcium 3.9 L Total Bilirubin AST ALT Alkaline Phosphatase C-Reactive Protein Total Protein 4.5 L Albumin 2.0 L Complement C3 Complement C4 Crossmatch 01/29/18 01/30/18 01/30/18 18:32 00:12 04:47 WBC RBC Hgb Hct MCH RDW Plt Count Lymph % (Auto) [place] % (Auto) Lymph # [place] # Seg Neutrophils % Seg Neuts % (Manual) Lymphocytes % (Manual) Monocytes % (Manual) Eosinophils % (Manual) Nucleated RBC % Seg Neutrophils # Seg Neutrophils # Man Lymphocytes # (Manual) Monocytes # (Manual) PT INR POC ABG pH 7.456 H POC ABG pCO2 POC ABG pO2 VBG pH Sodium Potassium Chloride Carbon Dioxide BUN Creatinine Glucose POC Glucose 158 H 155 H Hemoglobin A1c Lactic Acid Calcium Ionized Calcium Total Bilirubin AST ALT Alkaline Phosphatase C-Reactive Protein Total Protein Albumin Complement C3 Complement C4 Crossmatch 01/30/18 01/30/18 01/30/18 12:06 17:46 Unknown WBC 12.8 H RBC 3.09 L Hgb 8.4 L Hct 26.2 L MCH 27 L RDW Plt Count Lymph % (Auto) [place] % (Auto) Lymph # [place] # Seg Neutrophils % Seg Neuts % (Manual) 95.0 H Lymphocytes % (Manual) 1.0 L Monocytes % (Manual) Eosinophils % (Manual) Nucleated RBC % Seg Neutrophils # Seg Neutrophils # Man 12.2 H Lymphocytes # (Manual) 0.1 L Monocytes # (Manual) PT INR POC ABG pH POC ABG pCO2 POC ABG pO2 VBG pH Sodium Potassium Chloride Carbon Dioxide BUN Creatinine Glucose POC Glucose 117 H 166 H Hemoglobin A1c Lactic Acid Calcium Ionized Calcium Total Bilirubin AST ALT Alkaline Phosphatase C-Reactive Protein Total Protein Albumin Complement C3 Complement C4 Crossmatch 01/30/18 01/31/18 01/31/18 Unknown 00:04 04:50 WBC 13.6 H RBC 3.53 L Hgb 9.8 L Hct 30.0 L MCH RDW 15.4 H Plt Count Lymph % (Auto) 3.6 L [place] % (Auto) 8.7 H Lymph # 0.5 L [place] # 1.2 H Seg Neutrophils % 87.1 H Seg Neuts % (Manual) Lymphocytes % (Manual) Monocytes % (Manual) Eosinophils % (Manual) Nucleated RBC % Seg Neutrophils # 11.8 H Seg Neutrophils # Man Lymphocytes # (Manual) Monocytes # (Manual) PT INR POC ABG pH POC ABG pCO2 POC ABG pO2 VBG pH Sodium Potassium Chloride Carbon Dioxide BUN 52 H Creatinine 2.9 H Glucose 105 H POC Glucose 155 H Hemoglobin A1c Lactic Acid Calcium 6.7 L Ionized Calcium Total Bilirubin AST ALT Alkaline Phosphatase C-Reactive Protein Total Protein Albumin Complement C3 Complement C4 Crossmatch 01/31/18 01/31/18 01/31/18 04:50 17:08 23:38 WBC RBC Hgb Hct MCH RDW Plt Count Lymph % (Auto) [place] % (Auto) Lymph # [place] # Seg Neutrophils % Seg Neuts % (Manual) Lymphocytes % (Manual) Monocytes % (Manual) Eosinophils % (Manual) Nucleated RBC % Seg Neutrophils # Seg Neutrophils # Man Lymphocytes # (Manual) Monocytes # (Manual) PT INR POC ABG pH POC ABG pCO2 POC ABG pO2 VBG pH Sodium Potassium Chloride Carbon Dioxide BUN 70 H Creatinine 3.3 H Glucose 102 H POC Glucose 106 H 136 H Hemoglobin A1c Lactic Acid Calcium 7.1 L Ionized Calcium Total Bilirubin AST ALT Alkaline Phosphatase C-Reactive Protein Total Protein Albumin Complement C3 Complement C4 Crossmatch 02/01/18 02/01/18 02/01/18 04:00 04:00 05:25 WBC RBC 3.16 L Hgb 8.7 L Hct 27.5 L MCH RDW Plt Count Lymph % (Auto) 6.4 L [place] % (Auto) 10.2 H Lymph # 0.7 L [place] # 1.1 H Seg Neutrophils % 81.7 H Seg Neuts % (Manual) Lymphocytes % (Manual) Monocytes % (Manual) Eosinophils % (Manual) Nucleated RBC % Seg Neutrophils # 8.6 H Seg Neutrophils # Man Lymphocytes # (Manual) Monocytes # (Manual) PT INR POC ABG pH POC ABG pCO2 POC ABG pO2 VBG pH Sodium Potassium 3.4 L Chloride Carbon Dioxide 31 H BUN 42 H Creatinine 2.2 H Glucose 101 H POC Glucose 163 H Hemoglobin A1c Lactic Acid Calcium 7.1 L Ionized Calcium Total Bilirubin AST ALT Alkaline Phosphatase C-Reactive Protein Total Protein Albumin Complement C3 Complement C4 Crossmatch 02/01/18 02/01/18 02/01/18 11:54 18:21 23:34 WBC RBC Hgb Hct MCH RDW Plt Count Lymph % (Auto) [place] % (Auto) Lymph # [place] # Seg Neutrophils % Seg Neuts % (Manual) Lymphocytes % (Manual) Monocytes % (Manual) Eosinophils % (Manual) Nucleated RBC % Seg Neutrophils # Seg Neutrophils # Man Lymphocytes # (Manual) Monocytes # (Manual) PT INR POC ABG pH POC ABG pCO2 POC ABG pO2 VBG pH Sodium Potassium Chloride Carbon Dioxide BUN Creatinine Glucose POC Glucose 123 H 157 H 114 H Hemoglobin A1c Lactic Acid Calcium Ionized Calcium Total Bilirubin AST ALT Alkaline Phosphatase C-Reactive Protein Total Protein Albumin Complement C3 Complement C4 Crossmatch 02/02/18 02/02/18 02/02/18 03:30 05:45 17:27 WBC RBC Hgb Hct MCH RDW Plt Count Lymph % (Auto) [place] % (Auto) Lymph # [place] # Seg Neutrophils % Seg Neuts % (Manual) Lymphocytes % (Manual) Monocytes % (Manual) Eosinophils % (Manual) Nucleated RBC % Seg Neutrophils # Seg Neutrophils # Man Lymphocytes # (Manual) Monocytes # (Manual) PT INR POC ABG pH POC ABG pCO2 POC ABG pO2 VBG pH Sodium Potassium 3.3 L Chloride 97.8 L Carbon Dioxide BUN 58 H Creatinine 2.7 H Glucose 111 H POC Glucose 110 H 125 H Hemoglobin A1c Lactic Acid Calcium 7.1 L Ionized Calcium Total Bilirubin AST ALT Alkaline Phosphatase C-Reactive Protein Total Protein Albumin Complement C3 Complement C4 Crossmatch 02/02/18 02/03/18 02/03/18 23:34 04:45 05:38 WBC RBC Hgb Hct MCH RDW Plt Count Lymph % (Auto) [place] % (Auto) Lymph # [place] # Seg Neutrophils % Seg Neuts % (Manual) Lymphocytes % (Manual) Monocytes % (Manual) Eosinophils % (Manual) Nucleated RBC % Seg Neutrophils # Seg Neutrophils # Man Lymphocytes # (Manual) Monocytes # (Manual) PT INR POC ABG pH POC ABG pCO2 POC ABG pO2 VBG pH Sodium Potassium Chloride Carbon Dioxide BUN 72 H Creatinine 3.2 H Glucose POC Glucose 153 H 111 H Hemoglobin A1c Lactic Acid Calcium 7.6 L Ionized Calcium Total Bilirubin AST ALT Alkaline Phosphatase C-Reactive Protein Total Protein Albumin Complement C3 Complement C4 Crossmatch 02/03/18 02/03/18 02/03/18 11:36 18:26 22:45 WBC RBC Hgb Hct MCH RDW Plt Count Lymph % (Auto) [place] % (Auto) Lymph # [place] # Seg Neutrophils % Seg Neuts % (Manual) Lymphocytes % (Manual) Monocytes % (Manual) Eosinophils % (Manual) Nucleated RBC % Seg Neutrophils # Seg Neutrophils # Man Lymphocytes # (Manual) Monocytes # (Manual) PT INR POC ABG pH POC ABG pCO2 POC ABG pO2 VBG pH Sodium Potassium Chloride Carbon Dioxide BUN Creatinine Glucose POC Glucose 108 H 155 H 141 H Hemoglobin A1c Lactic Acid Calcium Ionized Calcium Total Bilirubin AST ALT Alkaline Phosphatase C-Reactive Protein Total Protein Albumin Complement C3 Complement C4 Crossmatch 02/04/18 02/04/18 02/04/18 04:06 11:57 15:05 WBC RBC Hgb Hct MCH RDW Plt Count Lymph % (Auto) [place] % (Auto) Lymph # [place] # Seg Neutrophils % Seg Neuts % (Manual) Lymphocytes % (Manual) Monocytes % (Manual) Eosinophils % (Manual) Nucleated RBC % Seg Neutrophils # Seg Neutrophils # Man Lymphocytes # (Manual) Monocytes # (Manual) PT INR POC ABG pH POC ABG pCO2 POC ABG pO2 109 H VBG pH Sodium 136 L Potassium 3.4 L Chloride 96.7 L Carbon Dioxide BUN 42 H Creatinine 1.9 H Glucose POC Glucose 119 H Hemoglobin A1c Lactic Acid Calcium 7.3 L Ionized Calcium Total Bilirubin AST ALT Alkaline Phosphatase C-Reactive Protein Total Protein Albumin Complement C3 Complement C4 Crossmatch 02/05/18 02/05/18 02/05/18 04:10 05:04 18:02 WBC RBC Hgb Hct MCH RDW Plt Count Lymph % (Auto) [place] % (Auto) Lymph # [place] # Seg Neutrophils % Seg Neuts % (Manual) Lymphocytes % (Manual) Monocytes % (Manual) Eosinophils % (Manual) Nucleated RBC % Seg Neutrophils # Seg Neutrophils # Man Lymphocytes # (Manual) Monocytes # (Manual) PT INR POC ABG pH POC ABG pCO2 POC ABG pO2 VBG pH Sodium Potassium 3.5 L Chloride Carbon Dioxide BUN 52 H Creatinine 2.2 H Glucose POC Glucose 108 H 124 H Hemoglobin A1c Lactic Acid Calcium 7.5 L Ionized Calcium Total Bilirubin AST ALT Alkaline Phosphatase C-Reactive Protein Total Protein Albumin Complement C3 Complement C4 Crossmatch 02/06/18 02/06/18 02/06/18 05:38 07:52 07:52 WBC RBC 2.91 L Hgb 8.1 L Hct 24.6 L MCH RDW Plt Count Lymph % (Auto) 11.2 L [place] % (Auto) 8.5 H Lymph # 0.6 L [place] # Seg Neutrophils % 76.9 H Seg Neuts % (Manual) Lymphocytes % (Manual) Monocytes % (Manual) Eosinophils % (Manual) Nucleated RBC % Seg Neutrophils # Seg Neutrophils # Man Lymphocytes # (Manual) Monocytes # (Manual) PT INR POC ABG pH POC ABG pCO2 POC ABG pO2 VBG pH Sodium Potassium 3.2 L Chloride Carbon Dioxide BUN 37 H Creatinine 1.6 H Glucose 109 H POC Glucose 119 H Hemoglobin A1c Lactic Acid Calcium 8.1 L Ionized Calcium Total Bilirubin AST ALT Alkaline Phosphatase C-Reactive Protein Total Protein Albumin Complement C3 Complement C4 Crossmatch 02/06/18 02/06/18 02/07/18 12:14 17:20 07:45 WBC RBC 2.61 L Hgb 7.4 L Hct 22.7 L MCH RDW Plt Count Lymph % (Auto) [place] % (Auto) Lymph # [place] # Seg Neutrophils % Seg Neuts % (Manual) Lymphocytes % (Manual) Monocytes % (Manual) Eosinophils % (Manual) Nucleated RBC % Seg Neutrophils # Seg Neutrophils # Man Lymphocytes # (Manual) Monocytes # (Manual) PT INR POC ABG pH POC ABG pCO2 POC ABG pO2 VBG pH Sodium Potassium Chloride Carbon Dioxide BUN Creatinine Glucose POC Glucose 109 H 106 H Hemoglobin A1c Lactic Acid Calcium Ionized Calcium Total Bilirubin AST ALT Alkaline Phosphatase C-Reactive Protein Total Protein Albumin Complement C3 Complement C4 Crossmatch 02/07/18 02/08/18 02/08/18 07:45 08:16 08:16 WBC 3.7 L RBC 2.49 L Hgb 7.0 L Hct 21.5 L MCH RDW Plt Count Lymph % (Auto) [place] % (Auto) Lymph # [place] # Seg Neutrophils % Seg Neuts % (Manual) Lymphocytes % (Manual) Monocytes % (Manual) Eosinophils % (Manual) Nucleated RBC % Seg Neutrophils # Seg Neutrophils # Man Lymphocytes # (Manual) Monocytes # (Manual) PT INR POC ABG pH POC ABG pCO2 POC ABG pO2 VBG pH Sodium Potassium Chloride Carbon Dioxide BUN 48 H 52 H Creatinine 2.1 H 2.0 H Glucose POC Glucose Hemoglobin A1c Lactic Acid Calcium 8.1 L 8.3 L Ionized Calcium Total Bilirubin AST ALT Alkaline Phosphatase C-Reactive Protein Total Protein Albumin Complement C3 Complement C4 Crossmatch 02/08/18 02/09/18 02/09/18 16:35 00:19 05:31 WBC 3.7 L RBC 2.38 L Hgb 6.8 L Hct 20.3 L MCH RDW Plt Count Lymph % (Auto) [place] % (Auto) Lymph # [place] # Seg Neutrophils % Seg Neuts % (Manual) Lymphocytes % (Manual) Monocytes % (Manual) Eosinophils % (Manual) Nucleated RBC % Seg Neutrophils # Seg Neutrophils # Man Lymphocytes # (Manual) Monocytes # (Manual) PT INR POC ABG pH POC ABG pCO2 POC ABG pO2 VBG pH Sodium Potassium Chloride Carbon Dioxide BUN Creatinine Glucose POC Glucose 121 H 171 H Hemoglobin A1c Lactic Acid Calcium Ionized Calcium Total Bilirubin AST ALT Alkaline Phosphatase C-Reactive Protein Total Protein Albumin Complement C3 Complement C4 Crossmatch 02/09/18 02/09/18 02/10/18 05:31 17:17 00:16 WBC RBC Hgb Hct MCH RDW Plt Count Lymph % (Auto) [place] % (Auto) Lymph # [place] # Seg Neutrophils % Seg Neuts % (Manual) Lymphocytes % (Manual) Monocytes % (Manual) Eosinophils % (Manual) Nucleated RBC % Seg Neutrophils # Seg Neutrophils # Man Lymphocytes # (Manual) Monocytes # (Manual) PT INR POC ABG pH POC ABG pCO2 POC ABG pO2 VBG pH Sodium 146 H Potassium Chloride Carbon Dioxide BUN 48 H Creatinine 1.7 H Glucose POC Glucose 121 H 162 H Hemoglobin A1c Lactic Acid Calcium 8.0 L Ionized Calcium Total Bilirubin AST ALT Alkaline Phosphatase C-Reactive Protein Total Protein Albumin Complement C3 Complement C4 Crossmatch 02/10/18 02/10/18 02/10/18 11:58 17:04 17:58 WBC RBC Hgb Hct MCH RDW Plt Count Lymph % (Auto) [place] % (Auto) Lymph # [place] # Seg Neutrophils % Seg Neuts % (Manual) Lymphocytes % (Manual) Monocytes % (Manual) Eosinophils % (Manual) Nucleated RBC % Seg Neutrophils # Seg Neutrophils # Man Lymphocytes # (Manual) Monocytes # (Manual) PT INR POC ABG pH POC ABG pCO2 POC ABG pO2 VBG pH Sodium Potassium Chloride Carbon Dioxide BUN Creatinine Glucose POC Glucose 151 H 131 H Hemoglobin A1c Lactic Acid Calcium Ionized Calcium Total Bilirubin AST ALT Alkaline Phosphatase C-Reactive Protein Total Protein Albumin Complement C3 Complement C4 Crossmatch See Detail 02/11/18 02/11/18 02/11/18 00:08 07:40 07:40 WBC 4.3 L RBC 2.84 L Hgb 7.9 L Hct 24.6 L MCH RDW Plt Count Lymph % (Auto) [place] % (Auto) Lymph # [place] # Seg Neutrophils % Seg Neuts % (Manual) Lymphocytes % (Manual) Monocytes % (Manual) Eosinophils % (Manual) Nucleated RBC % Seg Neutrophils # Seg Neutrophils # Man Lymphocytes # (Manual) Monocytes # (Manual) PT INR POC ABG pH POC ABG pCO2 POC ABG pO2 VBG pH Sodium 150 H Potassium Chloride 109.5 H Carbon Dioxide BUN 35 H Creatinine Glucose POC Glucose 113 H Hemoglobin A1c Lactic Acid Calcium Ionized Calcium Total Bilirubin AST ALT Alkaline Phosphatase C-Reactive Protein Total Protein Albumin Complement C3 Complement C4 Crossmatch 02/11/18 02/11/18 02/12/18 12:36 17:37 06:09 WBC RBC Hgb Hct MCH RDW Plt Count Lymph % (Auto) [place] % (Auto) Lymph # [place] # Seg Neutrophils % Seg Neuts % (Manual) Lymphocytes % (Manual) Monocytes % (Manual) Eosinophils % (Manual) Nucleated RBC % Seg Neutrophils # Seg Neutrophils # Man Lymphocytes # (Manual) Monocytes # (Manual) PT INR POC ABG pH POC ABG pCO2 POC ABG pO2 VBG pH Sodium Potassium Chloride Carbon Dioxide BUN 28 H Creatinine Glucose POC Glucose 138 H 205 H Hemoglobin A1c Lactic Acid Calcium 8.0 L Ionized Calcium Total Bilirubin AST ALT Alkaline Phosphatase C-Reactive Protein Total Protein Albumin Complement C3 Complement C4 Crossmatch 02/12/18 02/12/18 02/12/18 06:09 13:06 16:53 WBC 4.0 L RBC 2.92 L Hgb 8.2 L Hct 25.5 L MCH RDW Plt Count Lymph % (Auto) [place] % (Auto) Lymph # [place] # Seg Neutrophils % Seg Neuts % (Manual) 71.0 H Lymphocytes % (Manual) Monocytes % (Manual) Eosinophils % (Manual) 5.0 H Nucleated RBC % Seg Neutrophils # Seg Neutrophils # Man Lymphocytes # (Manual) 0.7 L Monocytes # (Manual) PT INR POC ABG pH POC ABG pCO2 POC ABG pO2 VBG pH Sodium Potassium Chloride Carbon Dioxide BUN Creatinine Glucose POC Glucose 132 H 146 H Hemoglobin A1c Lactic Acid Calcium Ionized Calcium Total Bilirubin AST ALT Alkaline Phosphatase C-Reactive Protein Total Protein Albumin Complement C3 Complement C4 Crossmatch 02/13/18 02/13/1802/13/18 01:23 04:36 12:45 WBC RBC Hgb Hct MCH RDW Plt Count Lymph % (Auto) [place] % (Auto) Lymph # [place] # Seg Neutrophils % Seg Neuts % (Manual) Lymphocytes % (Manual) Monocytes % (Manual) Eosinophils % (Manual) Nucleated RBC % Seg Neutrophils # Seg Neutrophils # Man Lymphocytes # (Manual) Monocytes # (Manual) PT INR POC ABG pH POC ABG pCO2 POC ABG pO2 VBG pH Sodium Potassium 3.3 L Chloride Carbon Dioxide BUN 25 H Creatinine Glucose POC Glucose 108 H 116 H Hemoglobin A1c Lactic Acid Calcium 8.0 L Ionized Calcium Total Bilirubin AST ALT Alkaline Phosphatase C-Reactive Protein Total Protein Albumin Complement C3 Complement C4 Crossmatch 02/13/18 02/14/18 02/14/18 17:46 00:16 06:04 WBC RBC Hgb Hct MCH RDW Plt Count Lymph % (Auto) [place] % (Auto) Lymph # [place] # Seg Neutrophils % Seg Neuts % (Manual) Lymphocytes % (Manual) Monocytes % (Manual) Eosinophils % (Manual) Nucleated RBC % Seg Neutrophils # Seg Neutrophils # Man Lymphocytes # (Manual) Monocytes # (Manual) PT INR POC ABG pH POC ABG pCO2 POC ABG pO2 VBG pH Sodium Potassium 3.4 L Chloride Carbon Dioxide BUN 20 H Creatinine Glucose POC Glucose 114 H 120 H Hemoglobin A1c Lactic Acid Calcium 7.9 L Ionized Calcium Total Bilirubin AST ALT Alkaline Phosphatase C-Reactive Protein Total Protein Albumin Complement C3 Complement C4 Crossmatch 02/14/18 02/14/18 02/15/18 12:09 17:23 01:26 WBC RBC Hgb Hct MCH RDW Plt Count Lymph % (Auto) [place] % (Auto) Lymph # [place] # Seg Neutrophils % Seg Neuts % (Manual) Lymphocytes % (Manual) Monocytes % (Manual) Eosinophils % (Manual) Nucleated RBC % Seg Neutrophils # Seg Neutrophils # Man Lymphocytes # (Manual) Monocytes # (Manual) PT INR POC ABG pH POC ABG pCO2 POC ABG pO2 VBG pH Sodium Potassium Chloride Carbon Dioxide BUN Creatinine Glucose POC Glucose 118 H 133 H 122 H Hemoglobin A1c Lactic Acid Calcium Ionized Calcium Total Bilirubin AST ALT Alkaline Phosphatase C-Reactive Protein Total Protein Albumin Complement C3 Complement C4 Crossmatch 02/15/18 11:34 WBC RBC Hgb Hct MCH RDW Plt Count Lymph % (Auto) [place] % (Auto) Lymph # [place] # Seg Neutrophils % Seg Neuts % (Manual) Lymphocytes % (Manual) Monocytes % (Manual) Eosinophils % (Manual) Nucleated RBC % Seg Neutrophils # Seg Neutrophils # Man Lymphocytes # (Manual) Monocytes # (Manual) PT INR POC ABG pH POC ABG pCO2 POC ABG pO2 VBG pH Sodium Potassium Chloride Carbon Dioxide BUN Creatinine Glucose POC Glucose 168 H Hemoglobin A1c Lactic Acid Calcium Ionized Calcium Total Bilirubin AST ALT Alkaline Phosphatase C-Reactive Protein Total Protein Albumin Complement C3 Complement C4 Crossmatch Chest x-ray: image reviewed (no pneumothorax) Allied health notes reviewed: nursing
[2018-02-15] MEDS: REGLAN IV PRN (17:37)
[2018-02-16] MEDS: DILAUDID IV PRN ×4 (07:08→22:27)
[2018-02-16] MEDS: BROVANA NEBU IH SCH ×2 (08:29→20:26)
[2018-02-16] MEDS: PULMICORT IH SCH ×2 (08:29→20:26)
--- NOTE | 2018-02-16 08:42 | Progress Note ---
Assessment and Plan Assessment and plan: -Acute combined respiratory failure on ventilator greater than 96 hours status post extubation: Resolving, still with oxygen via nasal cannula -Septic shock, resolved, s/p vasopressors -Acute on chronic combined heart failure improved, Cardiology has signed off -Large left pleural effusion status post left chest tube. Chest tube removal per interventional radiology today. -Acute renal failure due to ATN present on admission, improved. Patient previously on hemodialysis which now is on hold. -Acute toxic metabolic encephalopathy, POA. Resolved. 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 -Pelvic masses, ?incidental findings. 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 -DVT prophylaxis: sq heparin -Disposition. Awaiting NHP History Interval history: 62-year-old admitted with hx of htn, polysubstance drug abuse per family, admitted after she was found unresponsive found in the bathroom of a friends home, noted with severe lactic acidosis, hypotensive on vasopressors, hypercapenic respiratory failure requiring intubation. Patient now extubated and has been transferred to the floor. Hospitalist Physical - Constitutional Vitals: Temp Pulse Resp BP Pulse Ox 99.1 F 87 20 131/73 90 02/16/18 07:29 02/16/18 07:29 02/16/18 07:29 02/16/18 07:29 02/16/18 07:29 General appearance: Present: no acute distress - EENT Eyes: Present: PERRL, EOM intact ENT: hearing intact, clear oral mucosa, dentition normal - Neck Neck: Present: supple, normal ROM - Respiratory Respiratory effort: normal Respiratory: bilateral: CTA - Cardiovascular Rhythm: regular Heart Sounds: Present: S1 & S2. Absent: gallop, rub - Extremities Extremities: Full ROM Extremity abnormal: edema, cyanosis, black, cold (bilateral extremities) - Abdominal General gastrointestinal: soft, non-tender, non-distended, normal bowel sounds - Integumentary Integumentary: Present: clear, warm, dry - Neurologic Neurologic: CNII-XII intact, moves all extremities Results - Labs CBC & Chem 7: 02/12/18 06:09 02/14/18 06:04 Labs: Laboratory Last Values WBC 4.0 K/mm3 (4.5-11.0) L 02/12/18 06:09 RBC 2.92 M/mm3 (3.65-5.03) L 02/12/18 06:09 Hgb 8.2 gm/dl (10.1-14.3) L 02/12/18 06:09 Hct 25.5 % (30.3-42.9) L 02/12/18 06:09 MCV 88 fl (79-97) 02/12/18 06:09 MCH 28 pg (28-32) 02/12/18 06:09 MCHC 32 % (30-34) 02/12/18 06:09 RDW 14.5 % (13.2-15.2) 02/12/18 06:09 Plt Count 296 K/mm3 (140-440) 02/12/18 06:09 Lymph % (Auto) 11.2 % (13.4-35.0) L 02/06/18 07:52 Ripley % (Auto) 8.5 % (0.0-7.3) H 02/06/18 07:52 Eos % (Auto) 2.7 % (0.0-4.3) 02/06/18 07:52 Baso % (Auto) 0.7 % (0.0-1.8) 02/06/18 07:52 Lymph # 0.6 K/mm3 (1.2-5.4) L 02/06/18 07:52 Ripley # 0.5 K/mm3 (0.0-0.8) 02/06/18 07:52 Eos # 0.2 K/mm3 (0.0-0.4) 02/06/18 07:52 Baso # 0.0 K/mm3 (0.0-0.1) 02/06/18 07:52 Add Manual Diff Complete 02/12/18 06:09 Total Counted 100 02/12/18 06:09 Seg Neutrophils % 76.9 % (40.0-70.0) H 02/06/18 07:52 Seg Neuts % (Manual) 71.0 % (40.0-70.0) H 02/12/18 06:09 Band Neutrophils % 1.0 % 02/12/18 06:09 Lymphocytes % (Manual) 17.0 % (13.4-35.0) 02/12/18 06:09 Reactive Lymphs % (Man) 1.0 % 02/12/18 06:09 Monocytes % (Manual) 5.0 % (0.0-7.3) 02/12/18 06:09 Eosinophils % (Manual) 5.0 % (0.0-4.3) H 02/12/18 06:09 Basophils % (Manual) 0 % (0.0-1.8) 02/12/18 06:09 Metamyelocytes % 0 % 02/12/18 06:09 Myelocytes % 0 % 02/12/18 06:09 Promyelocytes % 0 % 02/12/18 06:09 Blast Cells % 0 % 02/12/18 06:09 Nucleated RBC % Not Reportable 02/12/18 06:09 Seg Neutrophils # 4.3 K/mm3 (1.8-7.7) 02/06/18 07:52 Seg Neutrophils # Man 2.8 K/mm3 (1.8-7.7) 02/12/18 06:09 Band Neutrophils # 0.0 K/mm3 02/12/18 06:09 Lymphocytes # (Manual) 0.7 K/mm3 (1.2-5.4) L 02/12/18 06:09 Abs React Lymphs (Man) 0.0 K/mm3 02/12/18 06:09 Monocytes # (Manual) 0.2 K/mm3 (0.0-0.8) 02/12/18 06:09 Eosinophils # (Manual) 0.2 K/mm3 (0.0-0.4) 02/12/18 06:09 Basophils # (Manual) 0.0 K/mm3 (0.0-0.1) 02/12/18 06:09 Metamyelocytes # 0.0 K/mm3 02/12/18 06:09 Myelocytes # 0.0 K/mm3 02/12/18 06:09 Promyelocytes # 0.0 K/mm3 02/12/18 06:09 Blast Cells # 0.0 K/mm3 02/12/18 06:09 WBC Morphology Not Reportable 02/12/18 06:09 Hypersegmented Neuts Not Reportable 02/12/18 06:09 Hyposegmented Neuts Not Reportable 02/12/18 06:09 Hypogranular Neuts Not Reportable 02/12/18 06:09 Smudge Cells Not Reportable 02/12/18 06:09 Toxic Granulation Not Reportable 02/12/18 06:09 Toxic Vacuolation Not Reportable 02/12/18 06:09 Dohle Bodies Not Reportable 02/12/18 06:09 Pelger-Huet Anomaly Not Reportable 02/12/18 06:09 Opal Rods Not Reportable 02/12/18 06:09 Platelet Estimate Cons 02/12/18 06:09 Clumped Platelets Not Reportable 02/12/18 06:09 Plt Clumps, EDTA Not Reportable 02/12/18 06:09 Large Platelets Not Reportable 02/12/18 06:09 Giant Platelets Not Reportable 02/12/18 06:09 Platelet Satelliting Not Reportable 02/12/18 06:09 Plt Morphology Comment Not Reportable 02/12/18 06:09 RBC Morphology Not Reportable 02/12/18 06:09 Dimorphic RBCs Not Reportable 02/12/18 06:09 Polychromasia Not Reportable 02/12/18 06:09 Hypochromasia Not Reportable 02/12/18 06:09 Poikilocytosis Not Reportable 02/12/18 06:09 Anisocytosis 1+ 02/12/18 06:09 Microcytosis Not Reportable 02/12/18 06:09 Macrocytosis Not Reportable 02/12/18 06:09 Spherocytes Not Reportable 02/12/18 06:09 Pappenheimer Bodies Not Reportable 02/12/18 06:09 Sickle Cells Not Reportable 02/12/18 06:09 Target Cells Not Reportable 02/12/18 06:09 Tear Drop Cells Not Reportable 02/12/18 06:09 Ovalocytes Not Reportable 02/12/18 06:09 Stomatocytes 1+ 02/12/18 06:09 Helmet Cells Not Reportable 02/12/18 06:09 Frankel-Rodriguez Hevia Bodies Not Reportable 02/12/18 06:09 Bivalve Rings Not Reportable 02/12/18 06:09 Jaclyn Cells Not Reportable 02/12/18 06:09 Bite Cells Not Reportable 02/12/18 06:09 Crenated Cell Not Reportable 02/12/18 06:09 Elliptocytes Not Reportable 02/12/18 06:09 Acanthocytes (Spur) Not Reportable 02/12/18 06:09 Rouleaux Not Reportable 02/12/18 06:09 Hemoglobin C Crystals Not Reportable 02/12/18 06:09 Schistocytes Not Reportable 02/12/18 06:09 Malaria parasites Not Reportable 02/12/18 06:09 Brock Bodies Not Reportable 02/12/18 06:09 Hem Pathologist Commnt No 02/12/18 06:09 PT 17.5 Sec. (12.2-14.9) H 01/20/18 07:00 INR 1.35 (0.87-1.13) H 01/20/18 07:00 Heparin Anti-Xa, Unfract Negative (Negative) 01/20/18 11:03 POC ABG pH 7.441 (7.35-7.45) 02/04/18 15:05 POC ABG pCO2 43.6 (35-45) 02/04/18 15:05 POC ABG pO2 109 (80-105) H 02/04/18 15:05 POC ABG HCO3 29.7 02/04/18 15:05 POC ABG Total CO2 31 02/04/18 15:05 POC ABG O2 Sat 98 02/04/18 15:05 POC ABG Base Excess 6 02/04/18 15:05 VBG pH 7.273 (7.320-7.420) L 01/17/18 16:54 FiO2 35 % 02/04/18 15:05 Sodium 142 mmol/L (137-145) 02/14/18 06:04 Potassium 3.4 mmol/L (3.6-5.0) L 02/14/18 06:04 Chloride 103.0 mmol/L (98-107) 02/14/18 06:04 Carbon Dioxide 25 mmol/L (22-30) 02/14/18 06:04 Anion Gap 17 mmol/L 02/14/18 06:04 BUN 20 mg/dL (7-17) H 02/14/18 06:04 Creatinine 0.9 mg/dL (0.7-1.2) 02/14/18 06:04 Estimated GFR > 60 ml/min 02/14/18 06:04 BUN/Creatinine Ratio 22 % 02/14/18 06:04 Glucose 91 mg/dL (65-100) 02/14/18 06:04 POC Glucose 101 (70-105) 02/16/18 06:41 Hemoglobin A1c 9.0 % (4-6) H 01/17/18 22:36 Lactic Acid 1.40 mmol/L (0.7-2.0) 01/24/18 15:08 Calcium 7.9 mg/dL (8.4-10.2) L 02/14/18 06:04 Ionized Calcium 3.9 mg/dL (4.8-5.6) L 01/29/18 06:00 Magnesium 1.80 mg/dL (1.7-2.3) 01/29/18 06:00 Total Bilirubin 0.50 mg/dL (0.1-1.2) 01/29/18 06:00 AST 21 units/L (5-40) 01/29/18 06:00 ALT 53 units/L (7-56) 01/29/18 06:00 Alkaline Phosphatase 88 units/L (35-129) 01/29/18 06:00 C-Reactive Protein 3.30 mg/dL (0.00-1.30) H 01/24/18 15:08 Total Protein 4.5 g/dL (6.3-8.2) L 01/29/18 06:00 Albumin 2.0 g/dL (3.9-5) L 01/29/18 06:00 Albumin/Globulin Ratio 0.8 % 01/29/18 06:00 Serotonin Release Assay See scanned report 01/20/18 11:03 Random Vancomycin 19.8 ug/mL (0-40.0) 01/27/18 05:20 ALISA Screen Negative (Negative) 01/20/18 Unknown Heparin-induced Plt Ab Negative (Negative) 01/20/18 11:03 UF Heparin High Dose 0 % Release 01/20/18 11:03 NEGRITA UFH Low Dose 0.1 0 % Release 01/20/18 11:03 NEGRITA UFH Low Dose 0.5 0 % Release 01/20/18 11:03 Complement C3 47 mg/dL (83-193) L 01/20/18 Unknown Complement C4 9 mg/dL (15-57) L 01/20/18 Unknown Hepatitis A IgM Ab Non-reactive (NonReactive) 01/20/18 07:00 Hep Bs Antigen Non-reactive (Negative) 01/20/18 07:00 Hep B Core IgM Ab Non-reactive (NonReactive) 01/20/18 07:00 Hepatitis C Antibody Non-reactive (NonReactive) 01/20/18 07:00 HIV 1&2 Antibody Rapid Non react (Non React) 01/20/18 Unknown HIV P24 Antigen Non react (Non React) 01/20/18 Unknown Blood Type B NEGATIVE 02/10/18 17:04 Antibody Screen Negative 02/10/18 17:04 Crossmatch See Detail 02/10/18 17:04
[2018-02-16] MEDS: PEPCID PO SCH (10:55)
--- NOTE | 2018-02-16 11:12 | XRay Report ---
AP CHEST: HISTORY: Pneumothorax No change since 02/14/18. No recurrent pneumothorax. There is minor scarring or atelectasis at the left lung base, otherwise, the lungs are clear. Borderline to mild cardiomegaly is stable. The pacemaker device is unchanged. IMPRESSION: No change.
--- NOTE | 2018-02-16 21:34 | Progress Note ---
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 ' Subjective Date of service: 02/16/18 Principal diagnosis: Acute hypoxic respiratory failure, severe sepsis with shock , encephalopathy Interval history: Patient seen today for: Acute hypoxic respiratory failure, severe sepsis with shock, encephalopathy Seen and examined at bedside; 24-hour events reviewed; nursing and respiratory care staff consulted; no adverse overnight events reported to me; alert; denies acute chest pains or increased SOB; no evidence of recurrent PTX clinically and repeat CXR negative Objective Vital Signs - 12hr 02/16/18 02/16/18 02/16/18 10:00 10:58 11:03 Temperature 68.3 F L 98.6 F Pulse Rate 92 H 91 H 91 H Pulse Rate [ 92 H Apical] Respiratory 20 20 20 Rate Blood Pressure 159/85 Blood Pressure 159/85 [Left] O2 Sat by Pulse 92 95 97 Oximetry 02/16/18 02/16/18 02/16/18 15:08 15:09 20:49 Temperature 97.6 F 99.5 F Pulse Rate 100 H 98 H Pulse Rate [ Apical] Respiratory 20 Rate Blood Pressure 177/97 177/97 Blood Pressure [Left] O2 Sat by Pulse 92 100 Oximetry 02/16/18 20:51 Temperature Pulse Rate 106 H Pulse Rate [ Apical] Respiratory 24 Rate Blood Pressure Blood Pressure 184/91 [Left] O2 Sat by Pulse 93 Oximetry Constitutional: no acute distress Eyes: non-icteric ENT: oropharynx moist, other (mallampatti 3) Neck: supple, no lymphadenopathy, no JVD, other (no thyromegaly) Effort: mildly labored Ascultation: Bilateral: diminished breath sounds, rales Percussion: Bilateral: not dull Cardiovascular: regular rate and rhythm, other (no rubs or murmurs) Gastrointestinal: normoactive bowel sounds, soft, non-tender, non-distended, other (no [place] HSM) Integumentary: normal Extremities: no cyanosis, no edema, pink and warm, pulses normal Neurologic: normal mental status, non-focal exam (grossly), pupils equal and round, CN II-XII normal, motor strength normal and Psychiatric: mood appropriate, affect normal CBC and BMP: 02/12/18 06:09 02/14/18 06:04 ABG, PT/INR, D-dimer: ABG POC ABG pH 7.441 (7.35-7.45) 02/04/18 15:05 POC ABG pCO2 43.6 (35-45) 02/04/18 15:05 POC ABG pO2 109 (80-105) H 02/04/18 15:05 POC ABG HCO3 29.7 02/04/18 15:05 POC ABG Total CO2 31 02/04/18 15:05 POC ABG O2 Sat 98 02/04/18 15:05 PT/INR, D-dimer PT 17.5 Sec. (12.2-14.9) H 01/20/18 07:00 INR 1.35 (0.87-1.13) H 01/20/18 07:00 Abnormal lab findings: Abnormal Labs 01/17/18 01/17/18 01/17/18 15:25 16:15 16:48 WBC RBC Hgb Hct MCH RDW Plt Count Lymph % (Auto) [place] % (Auto) Lymph # [place] # Seg Neutrophils % Seg Neuts % (Manual) Lymphocytes % (Manual) Monocytes % (Manual) Eosinophils % (Manual) Nucleated RBC % Seg Neutrophils # Seg Neutrophils # Man Lymphocytes # (Manual) Monocytes # (Manual) PT INR POC ABG pH 7.099 L POC ABG pCO2 58.9 H POC ABG pO2 149 H VBG pH Sodium Potassium Chloride Carbon Dioxide BUN Creatinine Glucose POC Glucose < 40 L 121 H Hemoglobin A1c Lactic Acid Calcium Ionized Calcium Total Bilirubin AST ALT Alkaline Phosphatase C-Reactive Protein Total Protein Albumin Complement C3 Complement C4 Crossmatch 01/17/18 01/17/18 01/17/18 16:54 16:54 16:54 WBC RBC Hgb Hct MCH RDW Plt Count Lymph % (Auto) [place] % (Auto) Lymph # [place] # Seg Neutrophils % Seg Neuts % (Manual) 72.0 H Lymphocytes % (Manual) 3.0 L Monocytes % (Manual) Eosinophils % (Manual) Nucleated RBC % Seg Neutrophils # Seg Neutrophils # Man Lymphocytes # (Manual) 0.2 L Monocytes # (Manual) PT 18.5 H INR 1.45 H POC ABG pH POC ABG pCO2 POC ABG pO2 VBG pH Sodium 136 L Potassium Chloride 97.8 L Carbon Dioxide 16 L BUN 43 H Creatinine 3.3 H Glucose 121 H POC Glucose Hemoglobin A1c Lactic Acid Calcium 6.7 L Ionized Calcium Total Bilirubin AST ALT Alkaline Phosphatase C-Reactive Protein Total Protein 4.4 L Albumin 2.3 L Complement C3 Complement C4 Crossmatch 01/17/18 01/17/18 01/17/18 16:54 16:54 17:11 WBC RBC Hgb Hct MCH RDW Plt Count Lymph % (Auto) [place] % (Auto) Lymph # [place] # Seg Neutrophils % Seg Neuts % (Manual) Lymphocytes % (Manual) Monocytes % (Manual) Eosinophils % (Manual) Nucleated RBC % Seg Neutrophils # Seg Neutrophils # Man Lymphocytes # (Manual) Monocytes # (Manual) PT INR POC ABG pH POC ABG pCO2 POC ABG pO2 VBG pH 7.273 L Sodium Potassium Chloride Carbon Dioxide BUN Creatinine Glucose POC Glucose Hemoglobin A1c Lactic Acid 4.70 H* 4.30 H* Calcium Ionized Calcium Total Bilirubin AST ALT Alkaline Phosphatase C-Reactive Protein Total Protein Albumin Complement C3 Complement C4 Crossmatch 01/17/18 01/17/18 01/17/18 18:02 18:15 19:21 WBC RBC Hgb Hct MCH RDW Plt Count Lymph % (Auto) [place] % (Auto) Lymph # [place] # Seg Neutrophils % Seg Neuts % (Manual) Lymphocytes % (Manual) Monocytes % (Manual) Eosinophils % (Manual) Nucleated RBC % Seg Neutrophils # Seg Neutrophils # Man Lymphocytes # (Manual) Monocytes # (Manual) PT INR POC ABG pH 7.177 L POC ABG pCO2 POC ABG pO2 VBG pH Sodium Potassium Chloride Carbon Dioxide BUN Creatinine Glucose POC Glucose < 40 L Hemoglobin A1c Lactic Acid 3.00 H* Calcium Ionized Calcium Total Bilirubin AST ALT Alkaline Phosphatase C-Reactive Protein Total Protein Albumin Complement C3 Complement C4 Crossmatch 01/17/18 01/17/18 01/17/18 22:36 22:36 23:16 WBC RBC Hgb Hct MCH RDW Plt Count Lymph % (Auto) [place] % (Auto) Lymph # [place] # Seg Neutrophils % Seg Neuts % (Manual) Lymphocytes % (Manual) Monocytes % (Manual) Eosinophils % (Manual) Nucleated RBC % Seg Neutrophils # Seg Neutrophils # Man Lymphocytes # (Manual) Monocytes # (Manual) PT INR POC ABG pH 7.112 L POC ABG pCO2 50.1 H POC ABG pO2 50 L VBG pH Sodium Potassium Chloride Carbon Dioxide BUN Creatinine Glucose POC Glucose Hemoglobin A1c 9.0 H Lactic Acid 5.50 H* Calcium Ionized Calcium Total Bilirubin AST ALT Alkaline Phosphatase C-Reactive Protein Total Protein Albumin Complement C3 Complement C4 Crossmatch 01/18/18 01/18/18 01/18/18 01:26 03:21 03:21 WBC RBC Hgb Hct MCH RDW Plt Count Lymph % (Auto) [place] % (Auto) Lymph # [place] # Seg Neutrophils % Seg Neuts % (Manual) 27.0 L Lymphocytes % (Manual) 3.0 L Monocytes % (Manual) 14.0 H Eosinophils % (Manual) Nucleated RBC % Seg Neutrophils # Seg Neutrophils # Man Lymphocytes # (Manual) 0.3 L Monocytes # (Manual) 1.4 H PT INR POC ABG pH POC ABG pCO2 POC ABG pO2 VBG pH Sodium Potassium Chloride Carbon Dioxide BUN Creatinine Glucose POC Glucose 107 H Hemoglobin A1c Lactic Acid 8.00 H* Calcium Ionized Calcium Total Bilirubin AST ALT Alkaline Phosphatase C-Reactive Protein Total Protein Albumin Complement C3 Complement C4 Crossmatch 01/18/18 01/18/18 01/18/18 03:21 04:40 05:07 WBC RBC Hgb Hct MCH RDW Plt Count Lymph % (Auto) [place] % (Auto) Lymph # [place] # Seg Neutrophils % Seg Neuts % (Manual) Lymphocytes % (Manual) Monocytes % (Manual) Eosinophils % (Manual) Nucleated RBC % Seg Neutrophils # Seg Neutrophils # Man Lymphocytes # (Manual) Monocytes # (Manual) PT INR POC ABG pH 7.093 L POC ABG pCO2 31.5 L POC ABG pO2 77 L VBG pH Sodium Potassium Chloride 96.9 L Carbon Dioxide 14 L BUN 47 H Creatinine 3.4 H Glucose POC Glucose Hemoglobin A1c Lactic Acid 11.10 H* Calcium 6.4 L Ionized Calcium Total Bilirubin AST 47 H ALT Alkaline Phosphatase C-Reactive Protein Total Protein 4.3 L Albumin 2.4 L Complement C3 Complement C4 Crossmatch 01/18/18 01/18/18 01/18/18 06:29 07:06 11:44 WBC RBC Hgb Hct MCH RDW Plt Count Lymph % (Auto) [place] % (Auto) Lymph # [place] # Seg Neutrophils % Seg Neuts % (Manual) Lymphocytes % (Manual) Monocytes % (Manual) Eosinophils % (Manual) Nucleated RBC % Seg Neutrophils # Seg Neutrophils # Man Lymphocytes # (Manual) Monocytes # (Manual) PT INR POC ABG pH POC ABG pCO2 POC ABG pO2 VBG pH Sodium Potassium Chloride Carbon Dioxide BUN Creatinine Glucose POC Glucose 47 L 149 H < 40 L Hemoglobin A1c Lactic Acid Calcium Ionized Calcium Total Bilirubin AST ALT Alkaline Phosphatase C-Reactive Protein Total Protein Albumin Complement C3 Complement C4 Crossmatch 01/18/18 01/18/18 01/18/18 11:46 14:15 18:01 WBC RBC Hgb Hct MCH RDW Plt Count Lymph % (Auto) [place] % (Auto) Lymph # [place] # Seg Neutrophils % Seg Neuts % (Manual) Lymphocytes % (Manual) Monocytes % (Manual) Eosinophils % (Manual) Nucleated RBC % Seg Neutrophils # Seg Neutrophils # Man Lymphocytes # (Manual) Monocytes # (Manual) PT INR POC ABG pH POC ABG pCO2 POC ABG pO2 VBG pH Sodium Potassium Chloride Carbon Dioxide BUN Creatinine Glucose POC Glucose 116 H < 40 L Hemoglobin A1c Lactic Acid 10.00 H* Calcium Ionized Calcium Total Bilirubin AST ALT Alkaline Phosphatase C-Reactive Protein Total Protein Albumin Complement C3 Complement C4 Crossmatch 01/18/18 01/18/18 01/18/18 18:02 23:25 23:27 WBC RBC Hgb Hct MCH RDW Plt Count Lymph % (Auto) [place] % (Auto) Lymph # [place] # Seg Neutrophils % Seg Neuts % (Manual) Lymphocytes % (Manual) Monocytes % (Manual) Eosinophils % (Manual) Nucleated RBC % Seg Neutrophils # Seg Neutrophils # Man Lymphocytes # (Manual) Monocytes # (Manual) PT INR POC ABG pH POC ABG pCO2 POC ABG pO2 VBG pH Sodium Potassium Chloride Carbon Dioxide BUN Creatinine Glucose POC Glucose 136 H < 40 L < 40 L Hemoglobin A1c Lactic Acid Calcium Ionized Calcium Total Bilirubin AST ALT Alkaline Phosphatase C-Reactive Protein Total Protein Albumin Complement C3 Complement C4 Crossmatch 01/19/18 01/19/18 01/19/18 04:02 06:50 06:50 WBC 18.5 H RBC Hgb Hct MCH RDW Plt Count 136 L Lymph % (Auto) [place] % (Auto) Lymph # [place] # Seg Neutrophils % Seg Neuts % (Manual) 86.0 H Lymphocytes % (Manual) 4.0 L Monocytes % (Manual) Eosinophils % (Manual) Nucleated RBC % Seg Neutrophils # Seg Neutrophils # Man 15.9 H Lymphocytes # (Manual) 0.7 L Monocytes # (Manual) 1.1 H PT 21.3 H INR 1.73 H POC ABG pH POC ABG pCO2 28.3 L POC ABG pO2 57 L VBG pH Sodium Potassium Chloride Carbon Dioxide BUN Creatinine Glucose POC Glucose Hemoglobin A1c Lactic Acid Calcium Ionized Calcium Total Bilirubin AST ALT Alkaline Phosphatase C-Reactive Protein Total Protein Albumin Complement C3 Complement C4 Crossmatch 01/19/18 01/19/18 01/19/18 06:50 08:45 11:17 WBC RBC Hgb Hct MCH RDW Plt Count Lymph % (Auto) [place] % (Auto) Lymph # [place] # Seg Neutrophils % Seg Neuts % (Manual) Lymphocytes % (Manual) Monocytes % (Manual) Eosinophils % (Manual) Nucleated RBC % Seg Neutrophils # Seg Neutrophils # Man Lymphocytes # (Manual) Monocytes # (Manual) PT INR POC ABG pH POC ABG pCO2 POC ABG pO2 VBG pH Sodium 135 L Potassium Chloride 92.8 L Carbon Dioxide 19 L BUN 31 H Creatinine 2.6 H Glucose POC Glucose 110 H Hemoglobin A1c Lactic Acid 7.90 H* Calcium 7.1 L Ionized Calcium Total Bilirubin 1.60 H AST 2526 H ALT 1187 H Alkaline Phosphatase 133 H C-Reactive Protein Total Protein 4.8 L Albumin 2.0 L Complement C3 Complement C4 Crossmatch 01/19/18 01/19/18 01/19/18 11:31 22:12 23:34 WBC RBC Hgb Hct MCH RDW Plt Count Lymph % (Auto) [place] % (Auto) Lymph # [place] # Seg Neutrophils % Seg Neuts % (Manual) Lymphocytes % (Manual) Monocytes % (Manual) Eosinophils % (Manual) Nucleated RBC % Seg Neutrophils # Seg Neutrophils # Man Lymphocytes # (Manual) Monocytes # (Manual) PT INR POC ABG pH POC ABG pCO2 31.6 L POC ABG pO2 59 L VBG pH Sodium Potassium Chloride Carbon Dioxide BUN Creatinine Glucose POC Glucose 131 H 53 L Hemoglobin A1c Lactic Acid Calcium Ionized Calcium Total Bilirubin AST ALT Alkaline Phosphatase C-Reactive Protein Total Protein Albumin Complement C3 Complement C4 Crossmatch 01/20/18 01/20/18 01/20/18 05:18 05:18 05:19 WBC 19.7 H RBC Hgb Hct MCH 27 L RDW Plt Count 84 L Lymph % (Auto) [place] % (Auto) Lymph # [place] # Seg Neutrophils % Seg Neuts % (Manual) 84.0 H Lymphocytes % (Manual) 2.0 L Monocytes % (Manual) 8.0 H Eosinophils % (Manual) Nucleated RBC % Seg Neutrophils # Seg Neutrophils # Man 16.5 H Lymphocytes # (Manual) 0.4 L Monocytes # (Manual) 1.6 H PT INR POC ABG pH POC ABG pCO2 POC ABG pO2 VBG pH Sodium 136 L Potassium Chloride 96.9 L Carbon Dioxide 17 L BUN 65 H Creatinine 4.1 H D Glucose 104 H POC Glucose 125 H Hemoglobin A1c Lactic Acid Calcium 7.1 L Ionized Calcium Total Bilirubin 1.60 H AST 1702 H ALT 1141 H Alkaline Phosphatase 172 H C-Reactive Protein Total Protein 5.0 L Albumin 1.7 L Complement C3 Complement C4 Crossmatch 01/20/18 01/20/18 01/20/18 07:00 11:48 13:54 WBC RBC Hgb Hct MCH RDW Plt Count Lymph % (Auto) [place] % (Auto) Lymph # [place] # Seg Neutrophils % Seg Neuts % (Manual) Lymphocytes % (Manual) Monocytes % (Manual) Eosinophils % (Manual) Nucleated RBC % Seg Neutrophils # Seg Neutrophils # Man Lymphocytes # (Manual) Monocytes # (Manual) PT 17.5 H INR 1.35 H POC ABG pH POC ABG pCO2 POC ABG pO2 VBG pH Sodium Potassium Chloride Carbon Dioxide BUN Creatinine Glucose POC Glucose 109 H Hemoglobin A1c Lactic Acid Calcium Ionized Calcium Total Bilirubin AST ALT Alkaline Phosphatase C-Reactive Protein 37.50 H Total Protein Albumin Complement C3 Complement C4 Crossmatch 01/20/18 01/20/18 01/20/18 17:28 17:51 20:50 WBC RBC Hgb Hct MCH RDW Plt Count Lymph % (Auto) [place] % (Auto) Lymph # [place] # Seg Neutrophils % Seg Neuts % (Manual) Lymphocytes % (Manual) Monocytes % (Manual) Eosinophils % (Manual) Nucleated RBC % Seg Neutrophils # Seg Neutrophils # Man Lymphocytes # (Manual) Monocytes # (Manual) PT INR POC ABG pH POC ABG pCO2 POC ABG pO2 VBG pH Sodium Potassium Chloride Carbon Dioxide BUN Creatinine Glucose POC Glucose 140 H Hemoglobin A1c Lactic Acid 2.70 H* 2.30 H* Calcium Ionized Calcium Total Bilirubin AST ALT Alkaline Phosphatase C-Reactive Protein Total Protein Albumin Complement C3 Complement C4 Crossmatch 01/20/18 01/20/18 01/20/18 23:55 Unknown Unknown WBC RBC Hgb Hct MCH RDW Plt Count Lymph % (Auto) [place] % (Auto) Lymph # [place] # Seg Neutrophils % Seg Neuts % (Manual) Lymphocytes % (Manual) Monocytes % (Manual) Eosinophils % (Manual) Nucleated RBC % Seg Neutrophils # Seg Neutrophils # Man Lymphocytes # (Manual) Monocytes # (Manual) PT INR POC ABG pH POC ABG pCO2 POC ABG pO2 VBG pH Sodium Potassium Chloride Carbon Dioxide BUN Creatinine Glucose POC Glucose 149 H Hemoglobin A1c Lactic Acid 2.50 H* Calcium Ionized Calcium Total Bilirubin AST ALT Alkaline Phosphatase C-Reactive Protein Total Protein Albumin Complement C3 47 L Complement C4 Crossmatch 01/20/18 01/21/18 01/21/18 Unknown 00:12 04:27 WBC RBC Hgb Hct MCH RDW Plt Count Lymph % (Auto) [place] % (Auto) Lymph # [place] # Seg Neutrophils % Seg Neuts % (Manual) Lymphocytes % (Manual) Monocytes % (Manual) Eosinophils % (Manual) Nucleated RBC % Seg Neutrophils # Seg Neutrophils # Man Lymphocytes # (Manual) Monocytes # (Manual) PT INR POC ABG pH POC ABG pCO2 33.8 L POC ABG pO2 72 L VBG pH Sodium Potassium Chloride Carbon Dioxide BUN Creatinine Glucose POC Glucose 134 H Hemoglobin A1c Lactic Acid Calcium Ionized Calcium Total Bilirubin AST ALT Alkaline Phosphatase C-Reactive Protein Total Protein Albumin Complement C3 Complement C4 9 L Crossmatch 01/21/18 01/21/18 01/21/18 05:00 05:00 05:00 WBC 21.7 H RBC Hgb Hct MCH 27 L RDW Plt Count 67 L Lymph % (Auto) [place] % (Auto) Lymph # [place] # Seg Neutrophils % Seg Neuts % (Manual) 71.0 H Lymphocytes % (Manual) 9.0 L Monocytes % (Manual) Eosinophils % (Manual) Nucleated RBC % 4.0 H Seg Neutrophils # Seg Neutrophils # Man 15.4 H Lymphocytes # (Manual) Monocytes # (Manual) PT INR POC ABG pH POC ABG pCO2 POC ABG pO2 VBG pH Sodium Potassium Chloride Carbon Dioxide 21 L BUN 71 H Creatinine 4.1 H Glucose 149 H POC Glucose Hemoglobin A1c Lactic Acid 2.10 H* Calcium 7.5 L Ionized Calcium Total Bilirubin AST 494 H ALT 780 H Alkaline Phosphatase 151 H C-Reactive Protein Total Protein 4.9 L Albumin 1.9 L Complement C3 Complement C4 Crossmatch 01/21/18 01/21/18 01/21/18 05:18 12:20 18:07 WBC RBC Hgb Hct MCH RDW Plt Count Lymph % (Auto) [place] % (Auto) Lymph # [place] # Seg Neutrophils % Seg Neuts % (Manual) Lymphocytes % (Manual) Monocytes % (Manual) Eosinophils % (Manual) Nucleated RBC % Seg Neutrophils # Seg Neutrophils # Man Lymphocytes # (Manual) Monocytes # (Manual) PT INR POC ABG pH POC ABG pCO2 POC ABG pO2 VBG pH Sodium Potassium Chloride Carbon Dioxide BUN Creatinine Glucose POC Glucose 132 H 158 H 143 H Hemoglobin A1c Lactic Acid Calcium Ionized Calcium Total Bilirubin AST ALT Alkaline Phosphatase C-Reactive Protein Total Protein Albumin Complement C3 Complement C4 Crossmatch 01/21/18 01/22/18 01/22/18 23:40 03:48 04:10 WBC 24.9 H RBC Hgb Hct MCH 27 L RDW Plt Count 80 L Lymph % (Auto) [place] % (Auto) Lymph # [place] # Seg Neutrophils % Seg Neuts % (Manual) Lymphocytes % (Manual) Monocytes % (Manual) Eosinophils % (Manual) Nucleated RBC % Seg Neutrophils # Seg Neutrophils # Man Lymphocytes # (Manual) Monocytes # (Manual) PT INR POC ABG pH POC ABG pCO2 POC ABG pO2 65 L VBG pH Sodium Potassium Chloride Carbon Dioxide BUN Creatinine Glucose POC Glucose 136 H Hemoglobin A1c Lactic Acid Calcium Ionized Calcium Total Bilirubin AST ALT Alkaline Phosphatase C-Reactive Protein Total Protein Albumin Complement C3 Complement C4 Crossmatch 01/22/18 01/22/18 01/22/18 04:10 05:56 11:30 WBC RBC Hgb Hct MCH RDW Plt Count Lymph % (Auto) [place] % (Auto) Lymph # [place] # Seg Neutrophils % Seg Neuts % (Manual) Lymphocytes % (Manual) Monocytes % (Manual) Eosinophils % (Manual) Nucleated RBC % Seg Neutrophils # Seg Neutrophils # Man Lymphocytes # (Manual) Monocytes # (Manual) PT INR POC ABG pH POC ABG pCO2 POC ABG pO2 VBG pH Sodium Potassium Chloride 97.7 L Carbon Dioxide BUN 72 H Creatinine 3.6 H Glucose 145 H POC Glucose 139 H 156 H Hemoglobin A1c Lactic Acid Calcium 7.3 L Ionized Calcium Total Bilirubin AST 146 H ALT 547 H Alkaline Phosphatase C-Reactive Protein Total Protein 5.2 L Albumin 2.3 L Complement C3 Complement C4 Crossmatch 01/22/18 01/23/18 01/23/18 17:41 00:00 04:39 WBC RBC Hgb Hct MCH RDW Plt Count Lymph % (Auto) [place] % (Auto) Lymph # [place] # Seg Neutrophils % Seg Neuts % (Manual) Lymphocytes % (Manual) Monocytes % (Manual) Eosinophils % (Manual) Nucleated RBC % Seg Neutrophils # Seg Neutrophils # Man Lymphocytes # (Manual) Monocytes # (Manual) PT INR POC ABG pH POC ABG pCO2 31.9 L POC ABG pO2 62 L VBG pH Sodium Potassium Chloride Carbon Dioxide BUN Creatinine Glucose POC Glucose 185 H 150 H Hemoglobin A1c Lactic Acid Calcium Ionized Calcium Total Bilirubin AST ALT Alkaline Phosphatase C-Reactive Protein Total Protein Albumin Complement C3 Complement C4 Crossmatch 01/23/18 01/23/18 01/23/18 05:24 11:38 14:20 WBC RBC Hgb Hct MCH RDW Plt Count Lymph % (Auto) [place] % (Auto) Lymph # [place] # Seg Neutrophils % Seg Neuts % (Manual) Lymphocytes % (Manual) Monocytes % (Manual) Eosinophils % (Manual) Nucleated RBC % Seg Neutrophils # Seg Neutrophils # Man Lymphocytes # (Manual) Monocytes # (Manual) PT INR POC ABG pH POC ABG pCO2 31.4 L POC ABG pO2 55 L VBG pH Sodium Potassium Chloride Carbon Dioxide BUN Creatinine Glucose POC Glucose 215 H 182 H Hemoglobin A1c Lactic Acid Calcium Ionized Calcium Total Bilirubin AST ALT Alkaline Phosphatase C-Reactive Protein Total Protein Albumin Complement C3 Complement C4 Crossmatch 01/23/18 01/24/18 01/24/18 17:26 00:10 03:40 WBC 34.5 H RBC Hgb Hct MCH 27 L RDW Plt Count 130 L Lymph % (Auto) [place] % (Auto) Lymph # [place] # Seg Neutrophils % Seg Neuts % (Manual) Lymphocytes % (Manual) Monocytes % (Manual) Eosinophils % (Manual) Nucleated RBC % Seg Neutrophils # Seg Neutrophils # Man Lymphocytes # (Manual) Monocytes # (Manual) PT INR POC ABG pH POC ABG pCO2 POC ABG pO2 VBG pH Sodium Potassium Chloride Carbon Dioxide BUN Creatinine Glucose POC Glucose 252 H 225 H Hemoglobin A1c Lactic Acid Calcium Ionized Calcium Total Bilirubin AST ALT Alkaline Phosphatase C-Reactive Protein Total Protein Albumin Complement C3 Complement C4 Crossmatch 01/24/18 01/24/18 01/24/18 03:40 06:06 11:36 WBC RBC Hgb Hct MCH RDW Plt Count Lymph % (Auto) [place] % (Auto) Lymph # [place] # Seg Neutrophils % Seg Neuts % (Manual) Lymphocytes % (Manual) Monocytes % (Manual) Eosinophils % (Manual) Nucleated RBC % Seg Neutrophils # Seg Neutrophils # Man Lymphocytes # (Manual) Monocytes # (Manual) PT INR POC ABG pH POC ABG pCO2 POC ABG pO2 VBG pH Sodium Potassium 5.7 H D Chloride 95.6 L Carbon Dioxide 20 L BUN 96 H Creatinine 4.2 H Glucose 166 H POC Glucose 162 H 160 H Hemoglobin A1c Lactic Acid Calcium 7.3 L Ionized Calcium Total Bilirubin AST 52 H ALT 235 H Alkaline Phosphatase C-Reactive Protein Total Protein 5.1 L Albumin 2.5 L Complement C3 Complement C4 Crossmatch 01/24/18 01/24/18 01/25/18 15:08 17:32 00:04 WBC RBC Hgb Hct MCH RDW Plt Count Lymph % (Auto) [place] % (Auto) Lymph # [place] # Seg Neutrophils % Seg Neuts % (Manual) Lymphocytes % (Manual) Monocytes % (Manual) Eosinophils % (Manual) Nucleated RBC % Seg Neutrophils # Seg Neutrophils # Man Lymphocytes # (Manual) Monocytes # (Manual) PT INR POC ABG pH POC ABG pCO2 POC ABG pO2 VBG pH Sodium Potassium Chloride Carbon Dioxide BUN Creatinine Glucose POC Glucose 160 H 169 H Hemoglobin A1c Lactic Acid Calcium Ionized Calcium Total Bilirubin AST ALT Alkaline Phosphatase C-Reactive Protein 3.30 H Total Protein Albumin Complement C3 Complement C4 Crossmatch 01/25/18 01/25/18 01/25/18 04:34 05:25 11:46 WBC RBC Hgb Hct MCH RDW Plt Count Lymph % (Auto) [place] % (Auto) Lymph # [place] # Seg Neutrophils % Seg Neuts % (Manual) Lymphocytes % (Manual) Monocytes % (Manual) Eosinophils % (Manual) Nucleated RBC % Seg Neutrophils # Seg Neutrophils # Man Lymphocytes # (Manual) Monocytes # (Manual) PT INR POC ABG pH 7.342 L POC ABG pCO2 48.7 H POC ABG pO2 VBG pH Sodium Potassium Chloride Carbon Dioxide BUN Creatinine Glucose POC Glucose 133 H 121 H Hemoglobin A1c Lactic Acid Calcium Ionized Calcium Total Bilirubin AST ALT Alkaline Phosphatase C-Reactive Protein Total Protein Albumin Complement C3 Complement C4 Crossmatch 01/25/18 01/25/18 01/26/18 17:42 23:50 04:13 WBC RBC Hgb Hct MCH RDW Plt Count Lymph % (Auto) [place] % (Auto) Lymph # [place] # Seg Neutrophils % Seg Neuts % (Manual) Lymphocytes % (Manual) Monocytes % (Manual) Eosinophils % (Manual) Nucleated RBC % Seg Neutrophils # Seg Neutrophils # Man Lymphocytes # (Manual) Monocytes # (Manual) PT INR POC ABG pH POC ABG pCO2 POC ABG pO2 70 L VBG pH Sodium Potassium Chloride Carbon Dioxide BUN Creatinine Glucose POC Glucose 150 H 149 H Hemoglobin A1c Lactic Acid Calcium Ionized Calcium Total Bilirubin AST ALT Alkaline Phosphatase C-Reactive Protein Total Protein Albumin Complement C3 Complement C4 Crossmatch 01/26/18 01/26/18 01/26/18 05:25 06:20 06:20 WBC 21.0 H RBC Hgb Hct MCH RDW Plt Count Lymph % (Auto) [place] % (Auto) Lymph # [place] # Seg Neutrophils % Seg Neuts % (Manual) 95.0 H Lymphocytes % (Manual) 1.0 L Monocytes % (Manual) Eosinophils % (Manual) Nucleated RBC % Seg Neutrophils # Seg Neutrophils # Man 20.0 H Lymphocytes # (Manual) 0.2 L Monocytes # (Manual) PT INR POC ABG pH POC ABG pCO2 POC ABG pO2 VBG pH Sodium Potassium 5.9 H Chloride 95.7 L Carbon Dioxide BUN 102 H Creatinine 4.6 H Glucose POC Glucose 107 H Hemoglobin A1c Lactic Acid Calcium 6.6 L Ionized Calcium Total Bilirubin AST ALT Alkaline Phosphatase C-Reactive Protein Total Protein Albumin Complement C3 Complement C4 Crossmatch 01/26/18 01/26/18 01/27/18 12:19 18:09 00:17 WBC RBC Hgb Hct MCH RDW Plt Count Lymph % (Auto) [place] % (Auto) Lymph # [place] # Seg Neutrophils % Seg Neuts % (Manual) Lymphocytes % (Manual) Monocytes % (Manual) Eosinophils % (Manual) Nucleated RBC % Seg Neutrophils # Seg Neutrophils # Man Lymphocytes # (Manual) Monocytes # (Manual) PT INR POC ABG pH POC ABG pCO2 POC ABG pO2 VBG pH Sodium Potassium Chloride Carbon Dioxide BUN Creatinine Glucose POC Glucose 151 H 110 H 159 H Hemoglobin A1c Lactic Acid Calcium Ionized Calcium Total Bilirubin AST ALT Alkaline Phosphatase C-Reactive Protein Total Protein Albumin Complement C3 Complement C4 Crossmatch 01/27/18 01/27/18 01/27/18 05:20 05:20 05:43 WBC 23.3 H RBC Hgb Hct MCH 27 L RDW Plt Count Lymph % (Auto) [place] % (Auto) Lymph # [place] # Seg Neutrophils % Seg Neuts % (Manual) 97.0 H Lymphocytes % (Manual) 0 L Monocytes % (Manual) Eosinophils % (Manual) Nucleated RBC % Seg Neutrophils # Seg Neutrophils # Man 22.6 H Lymphocytes # (Manual) 0.0 L Monocytes # (Manual) PT INR POC ABG pH POC ABG pCO2 POC ABG pO2 VBG pH Sodium Potassium 5.7 H Chloride 93.9 L Carbon Dioxide 21 L BUN 121 H Creatinine 5.2 H Glucose 131 H POC Glucose 121 H Hemoglobin A1c Lactic Acid Calcium 6.1 L Ionized Calcium Total Bilirubin AST ALT Alkaline Phosphatase C-Reactive Protein Total Protein Albumin Complement C3 Complement C4 Crossmatch 01/27/18 01/27/18 01/28/18 12:16 17:32 00:05 WBC RBC Hgb Hct MCH RDW Plt Count Lymph % (Auto) [place] % (Auto) Lymph # [place] # Seg Neutrophils % Seg Neuts % (Manual) Lymphocytes % (Manual) Monocytes % (Manual) Eosinophils % (Manual) Nucleated RBC % Seg Neutrophils # Seg Neutrophils # Man Lymphocytes # (Manual) Monocytes # (Manual) PT INR POC ABG pH POC ABG pCO2 POC ABG pO2 VBG pH Sodium Potassium Chloride Carbon Dioxide BUN Creatinine Glucose POC Glucose 161 H 146 H 128 H Hemoglobin A1c Lactic Acid Calcium Ionized Calcium Total Bilirubin AST ALT Alkaline Phosphatase C-Reactive Protein Total Protein Albumin Complement C3 Complement C4 Crossmatch 01/28/18 01/28/18 01/28/18 04:24 05:43 06:30 WBC 24.8 H RBC Hgb Hct MCH RDW Plt Count Lymph % (Auto) [place] % (Auto) Lymph # [place] # Seg Neutrophils % Seg Neuts % (Manual) 91.0 H Lymphocytes % (Manual) 4.0 L Monocytes % (Manual) Eosinophils % (Manual) Nucleated RBC % Seg Neutrophils # Seg Neutrophils # Man 22.6 H Lymphocytes # (Manual) 1.0 L Monocytes # (Manual) 1.0 H PT INR POC ABG pH POC ABG pCO2 POC ABG pO2 77 L VBG pH Sodium Potassium Chloride Carbon Dioxide BUN Creatinine Glucose POC Glucose 137 H Hemoglobin A1c Lactic Acid Calcium Ionized Calcium Total Bilirubin AST ALT Alkaline Phosphatase C-Reactive Protein Total Protein Albumin Complement C3 Complement C4 Crossmatch 01/28/18 01/28/18 01/28/18 06:30 11:30 18:08 WBC RBC Hgb Hct MCH RDW Plt Count Lymph % (Auto) [place] % (Auto) Lymph # [place] # Seg Neutrophils % Seg Neuts % (Manual) Lymphocytes % (Manual) Monocytes % (Manual) Eosinophils % (Manual) Nucleated RBC % Seg Neutrophils # Seg Neutrophils # Man Lymphocytes # (Manual) Monocytes # (Manual) PT INR POC ABG pH POC ABG pCO2 POC ABG pO2 VBG pH Sodium Potassium Chloride 95.2 L Carbon Dioxide BUN 70 H Creatinine 3.7 H Glucose 135 H POC Glucose 183 H 129 H Hemoglobin A1c Lactic Acid Calcium 6.4 L Ionized Calcium Total Bilirubin AST ALT Alkaline Phosphatase C-Reactive Protein Total Protein Albumin Complement C3 Complement C4 Crossmatch 01/29/18 01/29/18 01/29/18 00:00 05:50 06:00 WBC 15.8 H RBC 3.37 L Hgb 9.1 L Hct 28.6 L MCH 27 L RDW Plt Count Lymph % (Auto) [place] % (Auto) Lymph # [place] # Seg Neutrophils % Seg Neuts % (Manual) 87.0 H Lymphocytes % (Manual) 7.0 L Monocytes % (Manual) Eosinophils % (Manual) Nucleated RBC % Seg Neutrophils # Seg Neutrophils # Man 13.7 H Lymphocytes # (Manual) 1.1 L Monocytes # (Manual) PT INR POC ABG pH POC ABG pCO2 POC ABG pO2 VBG pH Sodium Potassium Chloride Carbon Dioxide BUN Creatinine Glucose POC Glucose 111 H 120 H Hemoglobin A1c Lactic Acid Calcium Ionized Calcium Total Bilirubin AST ALT Alkaline Phosphatase C-Reactive Protein Total Protein Albumin Complement C3 Complement C4 Crossmatch 01/29/18 01/29/18 01/29/18 06:00 06:00 12:29 WBC RBC Hgb Hct MCH RDW Plt Count Lymph % (Auto) [place] % (Auto) Lymph # [place] # Seg Neutrophils % Seg Neuts % (Manual) Lymphocytes % (Manual) Monocytes % (Manual) Eosinophils % (Manual) Nucleated RBC % Seg Neutrophils # Seg Neutrophils # Man Lymphocytes # (Manual) Monocytes # (Manual) PT INR POC ABG pH POC ABG pCO2 POC ABG pO2 VBG pH Sodium 136 L Potassium Chloride 95.4 L Carbon Dioxide BUN 94 H Creatinine 4.2 H Glucose 120 H POC Glucose 134 H Hemoglobin A1c Lactic Acid Calcium 6.5 L Ionized Calcium 3.9 L Total Bilirubin AST ALT Alkaline Phosphatase C-Reactive Protein Total Protein 4.5 L Albumin 2.0 L Complement C3 Complement C4 Crossmatch 01/29/18 01/30/18 01/30/18 18:32 00:12 04:47 WBC RBC Hgb Hct MCH RDW Plt Count Lymph % (Auto) [place] % (Auto) Lymph # [place] # Seg Neutrophils % Seg Neuts % (Manual) Lymphocytes % (Manual) Monocytes % (Manual) Eosinophils % (Manual) Nucleated RBC % Seg Neutrophils # Seg Neutrophils # Man Lymphocytes # (Manual) Monocytes # (Manual) PT INR POC ABG pH 7.456 H POC ABG pCO2 POC ABG pO2 VBG pH Sodium Potassium Chloride Carbon Dioxide BUN Creatinine Glucose POC Glucose 158 H 155 H Hemoglobin A1c Lactic Acid Calcium Ionized Calcium Total Bilirubin AST ALT Alkaline Phosphatase C-Reactive Protein Total Protein Albumin Complement C3 Complement C4 Crossmatch 01/30/18 01/30/18 01/30/18 12:06 17:46 Unknown WBC 12.8 H RBC 3.09 L Hgb 8.4 L Hct 26.2 L MCH 27 L RDW Plt Count Lymph % (Auto) [place] % (Auto) Lymph # [place] # Seg Neutrophils % Seg Neuts % (Manual) 95.0 H Lymphocytes % (Manual) 1.0 L Monocytes % (Manual) Eosinophils % (Manual) Nucleated RBC % Seg Neutrophils # Seg Neutrophils # Man 12.2 H Lymphocytes # (Manual) 0.1 L Monocytes # (Manual) PT INR POC ABG pH POC ABG pCO2 POC ABG pO2 VBG pH Sodium Potassium Chloride Carbon Dioxide BUN Creatinine Glucose POC Glucose 117 H 166 H Hemoglobin A1c Lactic Acid Calcium Ionized Calcium Total Bilirubin AST ALT Alkaline Phosphatase C-Reactive Protein Total Protein Albumin Complement C3 Complement C4 Crossmatch 01/30/18 01/31/18 01/31/18 Unknown 00:04 04:50 WBC 13.6 H RBC 3.53 L Hgb 9.8 L Hct 30.0 L MCH RDW 15.4 H Plt Count Lymph % (Auto) 3.6 L [place] % (Auto) 8.7 H Lymph # 0.5 L [place] # 1.2 H Seg Neutrophils % 87.1 H Seg Neuts % (Manual) Lymphocytes % (Manual) Monocytes % (Manual) Eosinophils % (Manual) Nucleated RBC % Seg Neutrophils # 11.8 H Seg Neutrophils # Man Lymphocytes # (Manual) Monocytes # (Manual) PT INR POC ABG pH POC ABG pCO2 POC ABG pO2 VBG pH Sodium Potassium Chloride Carbon Dioxide BUN 52 H Creatinine 2.9 H Glucose 105 H POC Glucose 155 H Hemoglobin A1c Lactic Acid Calcium 6.7 L Ionized Calcium Total Bilirubin AST ALT Alkaline Phosphatase C-Reactive Protein Total Protein Albumin Complement C3 Complement C4 Crossmatch 01/31/18 01/31/18 01/31/18 04:50 17:08 23:38 WBC RBC Hgb Hct MCH RDW Plt Count Lymph % (Auto) [place] % (Auto) Lymph # [place] # Seg Neutrophils % Seg Neuts % (Manual) Lymphocytes % (Manual) Monocytes % (Manual) Eosinophils % (Manual) Nucleated RBC % Seg Neutrophils # Seg Neutrophils # Man Lymphocytes # (Manual) Monocytes # (Manual) PT INR POC ABG pH POC ABG pCO2 POC ABG pO2 VBG pH Sodium Potassium Chloride Carbon Dioxide BUN 70 H Creatinine 3.3 H Glucose 102 H POC Glucose 106 H 136 H Hemoglobin A1c Lactic Acid Calcium 7.1 L Ionized Calcium Total Bilirubin AST ALT Alkaline Phosphatase C-Reactive Protein Total Protein Albumin Complement C3 Complement C4 Crossmatch 02/01/18 02/01/18 02/01/18 04:00 04:00 05:25 WBC RBC 3.16 L Hgb 8.7 L Hct 27.5 L MCH RDW Plt Count Lymph % (Auto) 6.4 L [place] % (Auto) 10.2 H Lymph # 0.7 L [place] # 1.1 H Seg Neutrophils % 81.7 H Seg Neuts % (Manual) Lymphocytes % (Manual) Monocytes % (Manual) Eosinophils % (Manual) Nucleated RBC % Seg Neutrophils # 8.6 H Seg Neutrophils # Man Lymphocytes # (Manual) Monocytes # (Manual) PT INR POC ABG pH POC ABG pCO2 POC ABG pO2 VBG pH Sodium Potassium 3.4 L Chloride Carbon Dioxide 31 H BUN 42 H Creatinine 2.2 H Glucose 101 H POC Glucose 163 H Hemoglobin A1c Lactic Acid Calcium 7.1 L Ionized Calcium Total Bilirubin AST ALT Alkaline Phosphatase C-Reactive Protein Total Protein Albumin Complement C3 Complement C4 Crossmatch 02/01/18 02/01/18 02/01/18 11:54 18:21 23:34 WBC RBC Hgb Hct MCH RDW Plt Count Lymph % (Auto) [place] % (Auto) Lymph # [place] # Seg Neutrophils % Seg Neuts % (Manual) Lymphocytes % (Manual) Monocytes % (Manual) Eosinophils % (Manual) Nucleated RBC % Seg Neutrophils # Seg Neutrophils # Man Lymphocytes # (Manual) Monocytes # (Manual) PT INR POC ABG pH POC ABG pCO2 POC ABG pO2 VBG pH Sodium Potassium Chloride Carbon Dioxide BUN Creatinine Glucose POC Glucose 123 H 157 H 114 H Hemoglobin A1c Lactic Acid Calcium Ionized Calcium Total Bilirubin AST ALT Alkaline Phosphatase C-Reactive Protein Total Protein Albumin Complement C3 Complement C4 Crossmatch 02/02/18 02/02/18 02/02/18 03:30 05:45 17:27 WBC RBC Hgb Hct MCH RDW Plt Count Lymph % (Auto) [place] % (Auto) Lymph # [place] # Seg Neutrophils % Seg Neuts % (Manual) Lymphocytes % (Manual) Monocytes % (Manual) Eosinophils % (Manual) Nucleated RBC % Seg Neutrophils # Seg Neutrophils # Man Lymphocytes # (Manual) Monocytes # (Manual) PT INR POC ABG pH POC ABG pCO2 POC ABG pO2 VBG pH Sodium Potassium 3.3 L Chloride 97.8 L Carbon Dioxide BUN 58 H Creatinine 2.7 H Glucose 111 H POC Glucose 110 H 125 H Hemoglobin A1c Lactic Acid Calcium 7.1 L Ionized Calcium Total Bilirubin AST ALT Alkaline Phosphatase C-Reactive Protein Total Protein Albumin Complement C3 Complement C4 Crossmatch 02/02/18 02/03/18 02/03/18 23:34 04:45 05:38 WBC RBC Hgb Hct MCH RDW Plt Count Lymph % (Auto) [place] % (Auto) Lymph # [place] # Seg Neutrophils % Seg Neuts % (Manual) Lymphocytes % (Manual) Monocytes % (Manual) Eosinophils % (Manual) Nucleated RBC % Seg Neutrophils # Seg Neutrophils # Man Lymphocytes # (Manual) Monocytes # (Manual) PT INR POC ABG pH POC ABG pCO2 POC ABG pO2 VBG pH Sodium Potassium Chloride Carbon Dioxide BUN 72 H Creatinine 3.2 H Glucose POC Glucose 153 H 111 H Hemoglobin A1c Lactic Acid Calcium 7.6 L Ionized Calcium Total Bilirubin AST ALT Alkaline Phosphatase C-Reactive Protein Total Protein Albumin Complement C3 Complement C4 Crossmatch 02/03/18 02/03/18 02/03/18 11:36 18:26 22:45 WBC RBC Hgb Hct MCH RDW Plt Count Lymph % (Auto) [place] % (Auto) Lymph # [place] # Seg Neutrophils % Seg Neuts % (Manual) Lymphocytes % (Manual) Monocytes % (Manual) Eosinophils % (Manual) Nucleated RBC % Seg Neutrophils # Seg Neutrophils # Man Lymphocytes # (Manual) Monocytes # (Manual) PT INR POC ABG pH POC ABG pCO2 POC ABG pO2 VBG pH Sodium Potassium Chloride Carbon Dioxide BUN Creatinine Glucose POC Glucose 108 H 155 H 141 H Hemoglobin A1c Lactic Acid Calcium Ionized Calcium Total Bilirubin AST ALT Alkaline Phosphatase C-Reactive Protein Total Protein Albumin Complement C3 Complement C4 Crossmatch 02/04/18 02/04/18 02/04/18 04:06 11:57 15:05 WBC RBC Hgb Hct MCH RDW Plt Count Lymph % (Auto) [place] % (Auto) Lymph # [place] # Seg Neutrophils % Seg Neuts % (Manual) Lymphocytes % (Manual) Monocytes % (Manual) Eosinophils % (Manual) Nucleated RBC % Seg Neutrophils # Seg Neutrophils # Man Lymphocytes # (Manual) Monocytes # (Manual) PT INR POC ABG pH POC ABG pCO2 POC ABG pO2 109 H VBG pH Sodium 136 L Potassium 3.4 L Chloride 96.7 L Carbon Dioxide BUN 42 H Creatinine 1.9 H Glucose POC Glucose 119 H Hemoglobin A1c Lactic Acid Calcium 7.3 L Ionized Calcium Total Bilirubin AST ALT Alkaline Phosphatase C-Reactive Protein Total Protein Albumin Complement C3 Complement C4 Crossmatch 02/05/18 02/05/18 02/05/18 04:10 05:04 18:02 WBC RBC Hgb Hct MCH RDW Plt Count Lymph % (Auto) [place] % (Auto) Lymph # [place] # Seg Neutrophils % Seg Neuts % (Manual) Lymphocytes % (Manual) Monocytes % (Manual) Eosinophils % (Manual) Nucleated RBC % Seg Neutrophils # Seg Neutrophils # Man Lymphocytes # (Manual) Monocytes # (Manual) PT INR POC ABG pH POC ABG pCO2 POC ABG pO2 VBG pH Sodium Potassium 3.5 L Chloride Carbon Dioxide BUN 52 H Creatinine 2.2 H Glucose POC Glucose 108 H 124 H Hemoglobin A1c Lactic Acid Calcium 7.5 L Ionized Calcium Total Bilirubin AST ALT Alkaline Phosphatase C-Reactive Protein Total Protein Albumin Complement C3 Complement C4 Crossmatch 02/06/18 02/06/18 02/06/18 05:38 07:52 07:52 WBC RBC 2.91 L Hgb 8.1 L Hct 24.6 L MCH RDW Plt Count Lymph % (Auto) 11.2 L [place] % (Auto) 8.5 H Lymph # 0.6 L [place] # Seg Neutrophils % 76.9 H Seg Neuts % (Manual) Lymphocytes % (Manual) Monocytes % (Manual) Eosinophils % (Manual) Nucleated RBC % Seg Neutrophils # Seg Neutrophils # Man Lymphocytes # (Manual) Monocytes # (Manual) PT INR POC ABG pH POC ABG pCO2 POC ABG pO2 VBG pH Sodium Potassium 3.2 L Chloride Carbon Dioxide BUN 37 H Creatinine 1.6 H Glucose 109 H POC Glucose 119 H Hemoglobin A1c Lactic Acid Calcium 8.1 L Ionized Calcium Total Bilirubin AST ALT Alkaline Phosphatase C-Reactive Protein Total Protein Albumin Complement C3 Complement C4 Crossmatch 02/06/18 02/06/18 02/07/18 12:14 17:20 07:45 WBC RBC 2.61 L Hgb 7.4 L Hct 22.7 L MCH RDW Plt Count Lymph % (Auto) [place] % (Auto) Lymph # [place] # Seg Neutrophils % Seg Neuts % (Manual) Lymphocytes % (Manual) Monocytes % (Manual) Eosinophils % (Manual) Nucleated RBC % Seg Neutrophils # Seg Neutrophils # Man Lymphocytes # (Manual) Monocytes # (Manual) PT INR POC ABG pH POC ABG pCO2 POC ABG pO2 VBG pH Sodium Potassium Chloride Carbon Dioxide BUN Creatinine Glucose POC Glucose 109 H 106 H Hemoglobin A1c Lactic Acid Calcium Ionized Calcium Total Bilirubin AST ALT Alkaline Phosphatase C-Reactive Protein Total Protein Albumin Complement C3 Complement C4 Crossmatch 02/07/18 02/08/18 02/08/18 07:45 08:16 08:16 WBC 3.7 L RBC 2.49 L Hgb 7.0 L Hct 21.5 L MCH RDW Plt Count Lymph % (Auto) [place] % (Auto) Lymph # [place] # Seg Neutrophils % Seg Neuts % (Manual) Lymphocytes % (Manual) Monocytes % (Manual) Eosinophils % (Manual) Nucleated RBC % Seg Neutrophils # Seg Neutrophils # Man Lymphocytes # (Manual) Monocytes # (Manual) PT INR POC ABG pH POC ABG pCO2 POC ABG pO2 VBG pH Sodium Potassium Chloride Carbon Dioxide BUN 48 H 52 H Creatinine 2.1 H 2.0 H Glucose POC Glucose Hemoglobin A1c Lactic Acid Calcium 8.1 L 8.3 L Ionized Calcium Total Bilirubin AST ALT Alkaline Phosphatase C-Reactive Protein Total Protein Albumin Complement C3 Complement C4 Crossmatch 02/08/18 02/09/18 02/09/18 16:35 00:19 05:31 WBC 3.7 L RBC 2.38 L Hgb 6.8 L Hct 20.3 L MCH RDW Plt Count Lymph % (Auto) [place] % (Auto) Lymph # [place] # Seg Neutrophils % Seg Neuts % (Manual) Lymphocytes % (Manual) Monocytes % (Manual) Eosinophils % (Manual) Nucleated RBC % Seg Neutrophils # Seg Neutrophils # Man Lymphocytes # (Manual) Monocytes # (Manual) PT INR POC ABG pH POC ABG pCO2 POC ABG pO2 VBG pH Sodium Potassium Chloride Carbon Dioxide BUN Creatinine Glucose POC Glucose 121 H 171 H Hemoglobin A1c Lactic Acid Calcium Ionized Calcium Total Bilirubin AST ALT Alkaline Phosphatase C-Reactive Protein Total Protein Albumin Complement C3 Complement C4 Crossmatch 02/09/18 02/09/18 02/10/18 05:31 17:17 00:16 WBC RBC Hgb Hct MCH RDW Plt Count Lymph % (Auto) [place] % (Auto) Lymph # [place] # Seg Neutrophils % Seg Neuts % (Manual) Lymphocytes % (Manual) Monocytes % (Manual) Eosinophils % (Manual) Nucleated RBC % Seg Neutrophils # Seg Neutrophils # Man Lymphocytes # (Manual) Monocytes # (Manual) PT INR POC ABG pH POC ABG pCO2 POC ABG pO2 VBG pH Sodium 146 H Potassium Chloride Carbon Dioxide BUN 48 H Creatinine 1.7 H Glucose POC Glucose 121 H 162 H Hemoglobin A1c Lactic Acid Calcium 8.0 L Ionized Calcium Total Bilirubin AST ALT Alkaline Phosphatase C-Reactive Protein Total Protein Albumin Complement C3 Complement C4 Crossmatch 02/10/18 02/10/18 02/10/18 11:58 17:04 17:58 WBC RBC Hgb Hct MCH RDW Plt Count Lymph % (Auto) [place] % (Auto) Lymph # [place] # Seg Neutrophils % Seg Neuts % (Manual) Lymphocytes % (Manual) Monocytes % (Manual) Eosinophils % (Manual) Nucleated RBC % Seg Neutrophils # Seg Neutrophils # Man Lymphocytes # (Manual) Monocytes # (Manual) PT INR POC ABG pH POC ABG pCO2 POC ABG pO2 VBG pH Sodium Potassium Chloride Carbon Dioxide BUN Creatinine Glucose POC Glucose 151 H 131 H Hemoglobin A1c Lactic Acid Calcium Ionized Calcium Total Bilirubin AST ALT Alkaline Phosphatase C-Reactive Protein Total Protein Albumin Complement C3 Complement C4 Crossmatch See Detail 02/11/18 02/11/18 02/11/18 00:08 07:40 07:40 WBC 4.3 L RBC 2.84 L Hgb 7.9 L Hct 24.6 L MCH RDW Plt Count Lymph % (Auto) [place] % (Auto) Lymph # [place] # Seg Neutrophils % Seg Neuts % (Manual) Lymphocytes % (Manual) Monocytes % (Manual) Eosinophils % (Manual) Nucleated RBC % Seg Neutrophils # Seg Neutrophils # Man Lymphocytes # (Manual) Monocytes # (Manual) PT INR POC ABG pH POC ABG pCO2 POC ABG pO2 VBG pH Sodium 150 H Potassium Chloride 109.5 H Carbon Dioxide BUN 35 H Creatinine Glucose POC Glucose 113 H Hemoglobin A1c Lactic Acid Calcium Ionized Calcium Total Bilirubin AST ALT Alkaline Phosphatase C-Reactive Protein Total Protein Albumin Complement C3 Complement C4 Crossmatch 02/11/18 02/11/18 02/12/18 12:36 17:37 06:09 WBC RBC Hgb Hct MCH RDW Plt Count Lymph % (Auto) [place] % (Auto) Lymph # [place] # Seg Neutrophils % Seg Neuts % (Manual) Lymphocytes % (Manual) Monocytes % (Manual) Eosinophils % (Manual) Nucleated RBC % Seg Neutrophils # Seg Neutrophils # Man Lymphocytes # (Manual) Monocytes # (Manual) PT INR POC ABG pH POC ABG pCO2 POC ABG pO2 VBG pH Sodium Potassium Chloride Carbon Dioxide BUN 28 H Creatinine Glucose POC Glucose 138 H 205 H Hemoglobin A1c Lactic Acid Calcium 8.0 L Ionized Calcium Total Bilirubin AST ALT Alkaline Phosphatase C-Reactive Protein Total Protein Albumin Complement C3 Complement C4 Crossmatch 02/12/18 02/12/18 02/12/18 06:09 13:06 16:53 WBC 4.0 L RBC 2.92 L Hgb 8.2 L Hct 25.5 L MCH RDW Plt Count Lymph % (Auto) [place] % (Auto) Lymph # [place] # Seg Neutrophils % Seg Neuts % (Manual) 71.0 H Lymphocytes % (Manual) Monocytes % (Manual) Eosinophils % (Manual) 5.0 H Nucleated RBC % Seg Neutrophils # Seg Neutrophils # Man Lymphocytes # (Manual) 0.7 L Monocytes # (Manual) PT INR POC ABG pH POC ABG pCO2 POC ABG pO2 VBG pH Sodium Potassium Chloride Carbon Dioxide BUN Creatinine Glucose POC Glucose 132 H 146 H Hemoglobin A1c Lactic Acid Calcium Ionized Calcium Total Bilirubin AST ALT Alkaline Phosphatase C-Reactive Protein Total Protein Albumin Complement C3 Complement C4 Crossmatch 02/13/18 02/13/18 02/13/18 01:23 04:36 12:45 WBC RBC Hgb Hct MCH RDW Plt Count Lymph % (Auto) [place] % (Auto) Lymph # [place] # Seg Neutrophils % Seg Neuts % (Manual) Lymphocytes % (Manual) Monocytes % (Manual) Eosinophils % (Manual) Nucleated RBC % Seg Neutrophils # Seg Neutrophils # Man Lymphocytes # (Manual) Monocytes # (Manual) PT INR POC ABG pH POC ABG pCO2 POC ABG pO2 VBG pH Sodium Potassium 3.3 L Chloride Carbon Dioxide BUN 25 H Creatinine Glucose POC Glucose 108 H 116 H Hemoglobin A1c Lactic Acid Calcium 8.0 L Ionized Calcium Total Bilirubin AST ALT Alkaline Phosphatase C-Reactive Protein Total Protein Albumin Complement C3 Complement C4 Crossmatch 02/13/18 02/14/18 02/14/18 17:46 00:16 06:04 WBC RBC Hgb Hct MCH RDW Plt Count Lymph % (Auto) [place] % (Auto) Lymph # [place] # Seg Neutrophils % Seg Neuts % (Manual) Lymphocytes % (Manual) Monocytes % (Manual) Eosinophils % (Manual) Nucleated RBC % Seg Neutrophils # Seg Neutrophils # Man Lymphocytes # (Manual) Monocytes # (Manual) PT INR POC ABG pH POC ABG pCO2 POC ABG pO2 VBG pH Sodium Potassium 3.4 L Chloride Carbon Dioxide BUN 20 H Creatinine Glucose POC Glucose 114 H 120 H Hemoglobin A1c Lactic Acid Calcium 7.9 L Ionized Calcium Total Bilirubin AST ALT Alkaline Phosphatase C-Reactive Protein Total Protein Albumin Complement C3 Complement C4 Crossmatch 02/14/18 02/14/18 02/15/18 12:09 17:23 01:26 WBC RBC Hgb Hct MCH RDW Plt Count Lymph % (Auto) [place] % (Auto) Lymph # [place] # Seg Neutrophils % Seg Neuts % (Manual) Lymphocytes % (Manual) Monocytes % (Manual) Eosinophils % (Manual) Nucleated RBC % Seg Neutrophils # Seg Neutrophils # Man Lymphocytes # (Manual) Monocytes # (Manual) PT INR POC ABG pH POC ABG pCO2 POC ABG pO2 VBG pH Sodium Potassium Chloride Carbon Dioxide BUN Creatinine Glucose POC Glucose 118 H 133 H 122 H Hemoglobin A1c Lactic Acid Calcium Ionized Calcium Total Bilirubin AST ALT Alkaline Phosphatase C-Reactive Protein Total Protein Albumin Complement C3 Complement C4 Crossmatch 02/15/18 02/15/18 11:34 18:14 WBC RBC Hgb Hct MCH RDW Plt Count Lymph % (Auto) [place] % (Auto) Lymph # [place] # Seg Neutrophils % Seg Neuts % (Manual) Lymphocytes % (Manual) Monocytes % (Manual) Eosinophils % (Manual) Nucleated RBC % Seg Neutrophils # Seg Neutrophils # Man Lymphocytes # (Manual) Monocytes # (Manual) PT INR POC ABG pH POC ABG pCO2 POC ABG pO2 VBG pH Sodium Potassium Chloride Carbon Dioxide BUN Creatinine Glucose POC Glucose 168 H 137 H Hemoglobin A1c Lactic Acid Calcium Ionized Calcium Total Bilirubin AST ALT Alkaline Phosphatase C-Reactive Protein Total Protein Albumin Complement C3 Complement C4 Crossmatch Allied health notes reviewed: nursing
[2018-02-17] MEDS: NACL 0.45% 1000 ML 1,000 ML IV SCH ×2 (05:21→18:45)
[2018-02-17] MEDS: BROVANA NEBU IH SCH ×2 (08:18→20:20)
[2018-02-17] MEDS: PULMICORT IH SCH ×2 (08:18→20:20)
[2018-02-17] MEDS: PEPCID PO SCH (08:40)
[2018-02-17] MEDS: DILAUDID IV PRN ×5 (08:40→21:38)
--- NOTE | 2018-02-17 11:41 | Progress Note ---
Assessment and Plan Assessment and plan: -Acute combined respiratory failure on ventilator greater than 96 hours status post extubation: Resoved, continue oxygen via nasal cannula as needed -Septic shock, resolved, s/p vasopressors -Acute on chronic combined heart failure improved, Cardiology has signed off -Large left pleural effusion status post left chest tube. Chest tube was removed by interventional radiology -Acute renal failure due to ATN present on admission, improved. Patient previously on hemodialysis which now is on hold. Follow-up BMP -Acute toxic metabolic encephalopathy, POA. Resolved. -Shock liver/ischemic hepatitis. Resolved. 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 Continue pain control. -Pelvic masses, ?incidental findings. 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 -DVT prophylaxis: sq heparin -Disposition. Awaiting [facility] History Interval history: 62-year-old admitted with hx of htn, polysubstance drug abuse per family, admitted after she was found unresponsive found in the bathroom of a friends home, noted with severe lactic acidosis, hypotensive on vasopressors, hypercapenic respiratory failure requiring intubation. Patient now extubated and has been transferred to the floor. Patient has had chest tube removed. Patient complaining of bilateral pain on her digits Hospitalist Physical - Constitutional Vitals: Temp Pulse Resp BP Pulse Ox 98.0 F 91 H 17 140/71 93 02/17/18 07:27 02/17/18 10:00 02/17/18 10:00 02/17/18 07:27 02/17/18 08:18 General appearance: Present: no acute distress - EENT Eyes: Present: PERRL, EOM intact ENT: hearing intact, clear oral mucosa, dentition normal - Neck Neck: Present: supple, normal ROM - Respiratory Respiratory effort: normal Respiratory: bilateral: CTA - Cardiovascular Rhythm: regular Heart Sounds: Present: S1 & S2. Absent: gallop, rub - Extremities Extremities: no ischemia, No edema, Full ROM - Abdominal General gastrointestinal: soft, non-tender, non-distended, normal bowel sounds - Integumentary Integumentary: Present: clear, warm, dry - Neurologic Neurologic: CNII-XII intact, moves all extremities Results - Labs CBC & Chem 7: 02/12/18 06:09 02/14/18 06:04 Labs: Laboratory Last Values WBC 4.0 K/mm3 (4.5-11.0) L 02/12/18 06:09 RBC 2.92 M/mm3 (3.65-5.03) L 02/12/18 06:09 Hgb 8.2 gm/dl (10.1-14.3) L 02/12/18 06:09 Hct 25.5 % (30.3-42.9) L 02/12/18 06:09 MCV 88 fl (79-97) 02/12/18 06:09 MCH 28 pg (28-32) 02/12/18 06:09 MCHC 32 % (30-34) 02/12/18 06:09 RDW 14.5 % (13.2-15.2) 02/12/18 06:09 Plt Count 296 K/mm3 (140-440) 02/12/18 06:09 Lymph % (Auto) 11.2 % (13.4-35.0) L 02/06/18 07:52 [place] % (Auto) 8.5 % (0.0-7.3) H 02/06/18 07:52 Eos % (Auto) 2.7 % (0.0-4.3) 02/06/18 07:52 Baso % (Auto) 0.7 % (0.0-1.8) 02/06/18 07:52 Lymph # 0.6 K/mm3 (1.2-5.4) L 02/06/18 07:52 [place] # 0.5 K/mm3 (0.0-0.8) 02/06/18 07:52 Eos # 0.2 K/mm3 (0.0-0.4) 02/06/18 07:52 Baso # 0.0 K/mm3 (0.0-0.1) 02/06/18 07:52 Add Manual Diff Complete 02/12/18 06:09 Total Counted 100 02/12/18 06:09 Seg Neutrophils % 76.9 % (40.0-70.0) H 02/06/18 07:52 Seg Neuts % (Manual) 71.0 % (40.0-70.0) H 02/12/18 06:09 Band Neutrophils % 1.0 % 02/12/18 06:09 Lymphocytes % (Manual) 17.0 % (13.4-35.0) 02/12/18 06:09 Reactive Lymphs % (Man) 1.0 % 02/12/18 06:09 Monocytes % (Manual) 5.0 % (0.0-7.3) 02/12/18 06:09 Eosinophils % (Manual) 5.0 % (0.0-4.3) H 02/12/18 06:09 Basophils % (Manual) 0 % (0.0-1.8) 02/12/18 06:09 Metamyelocytes % 0 % 02/12/18 06:09 Myelocytes % 0 % 02/12/18 06:09 Promyelocytes % 0 % 02/12/18 06:09 Blast Cells % 0 % 02/12/18 06:09 Nucleated RBC % Not Reportable 02/12/18 06:09 Seg Neutrophils # 4.3 K/mm3 (1.8-7.7) 02/06/18 07:52 Seg Neutrophils # Man 2.8 K/mm3 (1.8-7.7) 02/12/18 06:09 Band Neutrophils # 0.0 K/mm3 02/12/18 06:09 Lymphocytes # (Manual) 0.7 K/mm3 (1.2-5.4) L 02/12/18 06:09 Abs React Lymphs (Man) 0.0 K/mm3 02/12/18 06:09 Monocytes # (Manual) 0.2 K/mm3 (0.0-0.8) 02/12/18 06:09 Eosinophils # (Manual) 0.2 K/mm3 (0.0-0.4) 02/12/18 06:09 Basophils # (Manual) 0.0 K/mm3 (0.0-0.1) 02/12/18 06:09 Metamyelocytes # 0.0 K/mm3 02/12/18 06:09 Myelocytes # 0.0 K/mm3 02/12/18 06:09 Promyelocytes # 0.0 K/mm3 02/12/18 06:09 Blast Cells # 0.0 K/mm3 02/12/18 06:09 WBC Morphology Not Reportable 02/12/18 06:09 Hypersegmented Neuts Not Reportable 02/12/18 06:09 Hyposegmented Neuts Not Reportable 02/12/18 06:09 Hypogranular Neuts Not Reportable 02/12/18 06:09 Smudge Cells Not Reportable 02/12/18 06:09 Toxic Granulation Not Reportable 02/12/18 06:09 Toxic Vacuolation Not Reportable 02/12/18 06:09 Dohle Bodies Not Reportable 02/12/18 06:09 Pelger-Huet Anomaly Not Reportable 02/12/18 06:09 Opal Rods Not Reportable 02/12/18 06:09 Platelet Estimate Cons 02/12/18 06:09 Clumped Platelets Not Reportable 02/12/18 06:09 Plt Clumps, EDTA Not Reportable 02/12/18 06:09 Large Platelets Not Reportable 02/12/18 06:09 Giant Platelets Not Reportable 02/12/18 06:09 Platelet Satelliting Not Reportable 02/12/18 06:09 Plt Morphology Comment Not Reportable 02/12/18 06:09 RBC Morphology Not Reportable 02/12/18 06:09 Dimorphic RBCs Not Reportable 02/12/18 06:09 Polychromasia Not Reportable 02/12/18 06:09 Hypochromasia Not Reportable 02/12/18 06:09 Poikilocytosis Not Reportable 02/12/18 06:09 Anisocytosis 1+ 02/12/18 06:09 Microcytosis Not Reportable 02/12/18 06:09 Macrocytosis Not Reportable 02/12/18 06:09 Spherocytes Not Reportable 02/12/18 06:09 Pappenheimer Bodies Not Reportable 02/12/18 06:09 Sickle Cells Not Reportable 02/12/18 06:09 Target Cells Not Reportable 02/12/18 06:09 Tear Drop Cells Not Reportable 02/12/18 06:09 Ovalocytes Not Reportable 02/12/18 06:09 Stomatocytes 1+ 02/12/18 06:09 Helmet Cells Not Reportable 02/12/18 06:09 [place] Bodies Not Reportable 02/12/18 06:09 [place] Rings Not Reportable 02/12/18 06:09 [place] Cells Not Reportable 02/12/18 06:09 Bite Cells Not Reportable 02/12/18 06:09 Crenated Cell Not Reportable 02/12/18 06:09 Elliptocytes Not Reportable 02/12/18 06:09 Acanthocytes (Spur) Not Reportable 02/12/18 06:09 Rouleaux Not Reportable 02/12/18 06:09 Hemoglobin C Crystals Not Reportable 02/12/18 06:09 Schistocytes Not Reportable 02/12/18 06:09 Malaria parasites Not Reportable 02/12/18 06:09 Brock Bodies Not Reportable 02/12/18 06:09 Hem Pathologist Commnt No 02/12/18 06:09 PT 17.5 Sec. (12.2-14.9) H 01/20/18 07:00 INR 1.35 (0.87-1.13) H 01/20/18 07:00 Heparin Anti-Xa, Unfract Negative (Negative) 01/20/18 11:03 POC ABG pH 7.441 (7.35-7.45) 02/04/18 15:05 POC ABG pCO2 43.6 (35-45) 02/04/18 15:05 POC ABG pO2 109 (80-105) H 02/04/18 15:05 POC ABG HCO3 29.7 02/04/18 15:05 POC ABG Total CO2 31 02/04/18 15:05 POC ABG O2 Sat 98 02/04/18 15:05 POC ABG Base Excess 6 02/04/18 15:05 VBG pH 7.273 (7.320-7.420) L 01/17/18 16:54 FiO2 35 % 02/04/18 15:05 Sodium 142 mmol/L (137-145) 02/14/18 06:04 Potassium 3.4 mmol/L (3.6-5.0) L 02/14/18 06:04 Chloride 103.0 mmol/L (98-107) 02/14/18 06:04 Carbon Dioxide 25 mmol/L (22-30) 02/14/18 06:04 Anion Gap 17 mmol/L 02/14/18 06:04 BUN 20 mg/dL (7-17) H 02/14/18 06:04 Creatinine 0.9 mg/dL (0.7-1.2) 02/14/18 06:04 Estimated GFR > 60 ml/min 02/14/18 06:04 BUN/Creatinine Ratio 22 % 02/14/18 06:04 Glucose 91 mg/dL (65-100) 02/14/18 06:04 POC Glucose 102 (70-105) 02/17/18 06:00 Hemoglobin A1c 9.0 % (4-6) H 01/17/18 22:36 Lactic Acid 1.40 mmol/L (0.7-2.0) 01/24/18 15:08 Calcium 7.9 mg/dL (8.4-10.2) L 02/14/18 06:04 Ionized Calcium 3.9 mg/dL (4.8-5.6) L 01/29/18 06:00 Magnesium 1.80 mg/dL (1.7-2.3) 01/29/18 06:00 Total Bilirubin 0.50 mg/dL (0.1-1.2) 01/29/18 06:00 AST 21 units/L (5-40) 01/29/18 06:00 ALT 53 units/L (7-56) 01/29/18 06:00 Alkaline Phosphatase 88 units/L (35-129) 01/29/18 06:00 C-Reactive Protein 3.30 mg/dL (0.00-1.30) H 01/24/18 15:08 Total Protein 4.5 g/dL (6.3-8.2) L 01/29/18 06:00 Albumin 2.0 g/dL (3.9-5) L 01/29/18 06:00 Albumin/Globulin Ratio 0.8 % 01/29/18 06:00 Serotonin Release Assay See scanned report 01/20/18 11:03 Random Vancomycin 19.8 ug/mL (0-40.0) 01/27/18 05:20 ALISA Screen Negative (Negative) 01/20/18 Unknown Heparin-induced Plt Ab Negative (Negative) 01/20/18 11:03 UF Heparin High Dose 0 % Release 01/20/18 11:03 NEGRITA UFH Low Dose 0.1 0 % Release 01/20/18 11:03 NEGRITA UFH Low Dose 0.5 0 % Release 01/20/18 11:03 Complement C3 47 mg/dL (83-193) L 01/20/18 Unknown Complement C4 9 mg/dL (15-57) L 01/20/18 Unknown Hepatitis A IgM Ab Non-reactive (NonReactive) 01/20/18 07:00 Hep Bs Antigen Non-reactive (Negative) 01/20/18 07:00 Hep B Core IgM Ab Non-reactive (NonReactive) 01/20/18 07:00 Hepatitis C Antibody Non-reactive (NonReactive) 01/20/18 07:00 HIV 1&2 Antibody Rapid Non react (Non React) 01/20/18 Unknown HIV P24 Antigen Non react (Non React) 01/20/18 Unknown Blood Type B NEGATIVE 02/10/18 17:04 Antibody Screen Negative 02/10/18 17:04 Crossmatch See Detail 02/10/18 17:04
[2018-02-18] MEDS: DILAUDID IV PRN ×2 (05:33→22:17)
[2018-02-18] MEDS: PULMICORT IH SCH ×2 (10:22→20:12)
[2018-02-18] MEDS: BROVANA NEBU IH SCH ×2 (10:22→20:12)
[2018-02-18] MEDS: PEPCID PO SCH (11:07)
--- NOTE | 2018-02-18 16:43 | Progress Note ---
Assessment and Plan Assessment and plan: 62-year-old admitted with hx of htn, polysubstance drug abuse per family, admitted after she was found unresponsive found in the bathroom pf a friends home, noted with severe lactic acidosis, hypotensive on vasopressors, hypercapeniac respiratory failure requiring intubation . Patient now extubated and has been transferred to the floor. Patient has had chest tube removed. she did sustain necrotic injury to the bilateral upper and lower ext limbs. -Acute combined respiratory failure on ventilator greater than 96 hours status post extubation: Resoved, continue oxygen via nasal cannula as needed -Septic shock, resolved, s/p vasopressors -Acute on chronic combined heart failure improved, Cardiology has signed off -Large left pleural effusion status post left chest tube. Chest tube was removed by interventional radiology -Acute renal failure due to ATN present on admission, improved. Patient previously on hemodialysis which now is on hold. Follow-up BMP -Acute toxic metabolic encephalopathy, POA. Resolved. -Shock liver/ischemic hepatitis. Resolved. 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 Continue pain control. -Pelvic masses, ?incidental findings. 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 -DVT prophylaxis: sq heparin -Disposition. Awaiting [facility] History Interval history: Patient seen and examined, doing well on the medical floor no new event noted. Hospitalist Physical - Constitutional Vitals: Temp Pulse Resp BP Pulse Ox 98.5 F 90 18 135/73 96 02/18/18 08:03 02/18/18 10:23 02/18/18 10:23 02/18/18 08:03 02/18/18 10:00 General appearance: Present: no acute distress Results - Labs CBC & Chem 7: 02/12/18 06:09 02/14/18 06:04 Labs: Laboratory Last Values WBC 4.0 K/mm3 (4.5-11.0) L 02/12/18 06:09 RBC 2.92 M/mm3 (3.65-5.03) L 02/12/18 06:09 Hgb 8.2 gm/dl (10.1-14.3) L 02/12/18 06:09 Hct 25.5 % (30.3-42.9) L 02/12/18 06:09 MCV 88 fl (79-97) 02/12/18 06:09 MCH 28 pg (28-32) 02/12/18 06:09 MCHC 32 % (30-34) 02/12/18 06:09 RDW 14.5 % (13.2-15.2) 02/12/18 06:09 Plt Count 296 K/mm3 (140-440) 02/12/18 06:09 Lymph % (Auto) 11.2 % (13.4-35.0) L 02/06/18 07:52 [place] % (Auto) 8.5 % (0.0-7.3) H 02/06/18 07:52 Eos % (Auto) 2.7 % (0.0-4.3) 02/06/18 07:52 Baso % (Auto) 0.7 % (0.0-1.8) 02/06/18 07:52 Lymph # 0.6 K/mm3 (1.2-5.4) L 02/06/18 07:52 [place] # 0.5 K/mm3 (0.0-0.8) 02/06/18 07:52 Eos # 0.2 K/mm3 (0.0-0.4) 02/06/18 07:52 Baso # 0.0 K/mm3 (0.0-0.1) 02/06/18 07:52 Add Manual Diff Complete 02/12/18 06:09 Total Counted 100 02/12/18 06:09 Seg Neutrophils % 76.9 % (40.0-70.0) H 02/06/18 07:52 Seg Neuts % (Manual) 71.0 % (40.0-70.0) H 02/12/18 06:09 Band Neutrophils % 1.0 % 02/12/18 06:09 Lymphocytes % (Manual) 17.0 % (13.4-35.0) 02/12/18 06:09 Reactive Lymphs % (Man) 1.0 % 02/12/18 06:09 Monocytes % (Manual) 5.0 % (0.0-7.3) 02/12/18 06:09 Eosinophils % (Manual) 5.0 % (0.0-4.3) H 02/12/18 06:09 Basophils % (Manual) 0 % (0.0-1.8) 02/12/18 06:09 Metamyelocytes % 0 % 02/12/18 06:09 Myelocytes % 0 % 02/12/18 06:09 Promyelocytes % 0 % 02/12/18 06:09 Blast Cells % 0 % 02/12/18 06:09 Nucleated RBC % Not Reportable 02/12/18 06:09 Seg Neutrophils # 4.3 K/mm3 (1.8-7.7) 02/06/18 07:52 Seg Neutrophils # Man 2.8 K/mm3 (1.8-7.7) 02/12/18 06:09 Band Neutrophils # 0.0 K/mm3 02/12/18 06:09 Lymphocytes # (Manual) 0.7 K/mm3 (1.2-5.4) L 02/12/18 06:09 Abs React Lymphs (Man) 0.0 K/mm3 02/12/18 06:09 Monocytes # (Manual) 0.2 K/mm3 (0.0-0.8) 02/12/18 06:09 Eosinophils # (Manual) 0.2 K/mm3 (0.0-0.4) 02/12/18 06:09 Basophils # (Manual) 0.0 K/mm3 (0.0-0.1) 02/12/18 06:09 Metamyelocytes # 0.0 K/mm3 02/12/18 06:09 Myelocytes # 0.0 K/mm3 02/12/18 06:09 Promyelocytes # 0.0 K/mm3 02/12/18 06:09 Blast Cells # 0.0 K/mm3 02/12/18 06:09 WBC Morphology Not Reportable 02/12/18 06:09 Hypersegmented Neuts Not Reportable 02/12/18 06:09 Hyposegmented Neuts Not Reportable 02/12/18 06:09 Hypogranular Neuts Not Reportable 02/12/18 06:09 Smudge Cells Not Reportable 02/12/18 06:09 Toxic Granulation Not Reportable 02/12/18 06:09 Toxic Vacuolation Not Reportable 02/12/18 06:09 Dohle Bodies Not Reportable 02/12/18 06:09 Pelger-Huet Anomaly Not Reportable 02/12/18 06:09 Opal Rods Not Reportable 02/12/18 06:09 Platelet Estimate Cons 02/12/18 06:09 Clumped Platelets Not Reportable 02/12/18 06:09 Plt Clumps, EDTA Not Reportable 02/12/18 06:09 Large Platelets Not Reportable 02/12/18 06:09 Giant Platelets Not Reportable 02/12/18 06:09 Platelet Satelliting Not Reportable 02/12/18 06:09 Plt Morphology Comment Not Reportable 02/12/18 06:09 RBC Morphology Not Reportable 02/12/18 06:09 Dimorphic RBCs Not Reportable 02/12/18 06:09 Polychromasia Not Reportable 02/12/18 06:09 Hypochromasia Not Reportable 02/12/18 06:09 Poikilocytosis Not Reportable 02/12/18 06:09 Anisocytosis 1+ 02/12/18 06:09 Microcytosis Not Reportable 02/12/18 06:09 Macrocytosis Not Reportable 02/12/18 06:09 Spherocytes Not Reportable 02/12/18 06:09 Pappenheimer Bodies Not Reportable 02/12/18 06:09 Sickle Cells Not Reportable 02/12/18 06:09 Target Cells Not Reportable 02/12/18 06:09 Tear Drop Cells Not Reportable 02/12/18 06:09 Ovalocytes Not Reportable 02/12/18 06:09 Stomatocytes 1+ 02/12/18 06:09 Helmet Cells Not Reportable 02/12/18 06:09 [place] Bodies Not Reportable 02/12/18 06:09 [place] Rings Not Reportable 02/12/18 06:09 [place] Cells Not Reportable 02/12/18 06:09 Bite Cells Not Reportable 02/12/18 06:09 Crenated Cell Not Reportable 02/12/18 06:09 Elliptocytes Not Reportable 02/12/18 06:09 Acanthocytes (Spur) Not Reportable 02/12/18 06:09 Rouleaux Not Reportable 02/12/18 06:09 Hemoglobin C Crystals Not Reportable 02/12/18 06:09 Schistocytes Not Reportable 02/12/18 06:09 Malaria parasites Not Reportable 02/12/18 06:09 Brock Bodies Not Reportable 02/12/18 06:09 Hem Pathologist Commnt No 02/12/18 06:09 PT 17.5 Sec. (12.2-14.9) H 01/20/18 07:00 INR 1.35 (0.87-1.13) H 01/20/18 07:00 Heparin Anti-Xa, Unfract Negative (Negative) 01/20/18 11:03 POC ABG pH 7.441 (7.35-7.45) 02/04/18 15:05 POC ABG pCO2 43.6 (35-45) 02/04/18 15:05 POC ABG pO2 109 (80-105) H 02/04/18 15:05 POC ABG HCO3 29.7 02/04/18 15:05 POC ABG Total CO2 31 02/04/18 15:05 POC ABG O2 Sat 98 02/04/18 15:05 POC ABG Base Excess 6 02/04/18 15:05 VBG pH 7.273 (7.320-7.420) L 01/17/18 16:54 FiO2 35 % 02/04/18 15:05 Sodium 142 mmol/L (137-145) 02/14/18 06:04 Potassium 3.4 mmol/L (3.6-5.0) L 02/14/18 06:04 Chloride 103.0 mmol/L (98-107) 02/14/18 06:04 Carbon Dioxide 25 mmol/L (22-30) 02/14/18 06:04 Anion Gap 17 mmol/L 02/14/18 06:04 BUN 20 mg/dL (7-17) H 02/14/18 06:04 Creatinine 0.9 mg/dL (0.7-1.2) 02/14/18 06:04 Estimated GFR > 60 ml/min 02/14/18 06:04 BUN/Creatinine Ratio 22 % 02/14/18 06:04 Glucose 91 mg/dL (65-100) 02/14/18 06:04 POC Glucose 89 (70-105) 02/17/18 21:19 Hemoglobin A1c 9.0 % (4-6) H 01/17/18 22:36 Lactic Acid 1.40 mmol/L (0.7-2.0) 01/24/18 15:08 Calcium 7.9 mg/dL (8.4-10.2) L 02/14/18 06:04 Ionized Calcium 3.9 mg/dL (4.8-5.6) L 01/29/18 06:00 Magnesium 1.80 mg/dL (1.7-2.3) 01/29/18 06:00 Total Bilirubin 0.50 mg/dL (0.1-1.2) 01/29/18 06:00 AST 21 units/L (5-40) 01/29/18 06:00 ALT 53 units/L (7-56) 01/29/18 06:00 Alkaline Phosphatase 88 units/L (35-129) 01/29/18 06:00 C-Reactive Protein 3.30 mg/dL (0.00-1.30) H 01/24/18 15:08 Total Protein 4.5 g/dL (6.3-8.2) L 01/29/18 06:00 Albumin 2.0 g/dL (3.9-5) L 01/29/18 06:00 Albumin/Globulin Ratio 0.8 % 01/29/18 06:00 Serotonin Release Assay See scanned report 01/20/18 11:03 Random Vancomycin 19.8 ug/mL (0-40.0) 01/27/18 05:20 ALISA Screen Negative (Negative) 01/20/18 Unknown Heparin-induced Plt Ab Negative (Negative) 01/20/18 11:03 UF Heparin High Dose 0 % Release 01/20/18 11:03 NEGRITA UFH Low Dose 0.1 0 % Release 01/20/18 11:03 NEGRITA UFH Low Dose 0.5 0 % Release 01/20/18 11:03 Complement C3 47 mg/dL (83-193) L 01/20/18 Unknown Complement C4 9 mg/dL (15-57) L 01/20/18 Unknown Hepatitis A IgM Ab Non-reactive (NonReactive) 01/20/18 07:00 Hep Bs Antigen Non-reactive (Negative) 01/20/18 07:00 Hep B Core IgM Ab Non-reactive (NonReactive) 01/20/18 07:00 Hepatitis C Antibody Non-reactive (NonReactive) 01/20/18 07:00 HIV 1&2 Antibody Rapid Non react (Non React) 01/20/18 Unknown HIV P24 Antigen Non react (Non React) 01/20/18 Unknown Blood Type B NEGATIVE 02/10/18 17:04 Antibody Screen Negative 02/10/18 17:04 Crossmatch See Detail 02/10/18 17:04
[2018-02-18] MEDS: NACL 0.45% 1000 ML 1,000 ML IV SCH (17:17)
--- NOTE | 2018-02-18 20:03 | Progress Note ---
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 History of cocaine abuse, Acute encephalopathy-improving Left PTX, left pleural drain discontinued Thrombocytopenia-improving Pleural efffusion-improving Cardiomyopathy - HD/UF per nephrology for toxin and volume clearance - continue steroid taper - continue stress ulcer prophylaxis - continue supplemental oxygen to wean for oxygen saturations >90% - continue other care per attending/other consultants Subjective Date of service: 02/18/18 Principal diagnosis: Acute hypoxic respiratory failure, severe sepsis with shock , encephalopathy Interval history: Patient seen today for: Acute hypoxic respiratory failure, Left PTX, sepsis, aspiration pneumonia Seen and examined at bedside; 24-hour events reviewed Vitals, labs, medications, chart reviewed. Awake and alert Denies acute chest pains or increased SOB;no fevers or chills. No abdominal pain, no diarrhea. Objective - Exam Narrative Exam: GENERAL: Elderly WF lying on bed , not in any distress HEENT: Normocephalic. Atraumatic. No conjunctival congestion or icterus. Patient has dry mucous membranes. NECK: Supple. Trachea midline. CHEST/LUNGS: Clear to auscultated bilaterally Positive for a few wheezes, crackles or rhonchi. HEART/CARDIOVASCULAR: tachycardic. S1 and S2 positive. ABDOMEN: Abdomen is soft, nontender. Patient has normal bowel sounds. SKIN: There is no rash. Warm and dry. NEURO: Awake, alert, obeying commands MUSCULOSKELETAL: No joint effusion EXTRIMITY: No edema, cyanosis of the toes and fingers possible ischmia, fingers much worse skin: multiple tattoes Vital Signs - 12hr 02/18/18 02/18/18 02/18/18 08:03 10:00 10:23 Temperature 98.5 F Pulse Rate 92 H 95 H Pulse Rate [ 90 Anterior Bilateral Throughout] Pulse Rate [ 94 H Apical] Pulse Rate [ 87 Posterior Bilateral Throughout] Respiratory 18 Rate Respiratory 18 Rate [Anterior Bilateral Throughout] Respiratory 17 Rate [Bilateral Leg] Respiratory 18 Rate [ Generalized] Respiratory 20 Rate [Posterior Bilateral Throughout] Blood Pressure 135/73 O2 Sat by Pulse 98 96 Oximetry 02/18/18 02/18/18 02/18/18 12:15 15:28 19:46 Temperature 97.5 F L 98.6 F Pulse Rate 90 94 H Pulse Rate [ Anterior Bilateral Throughout] Pulse Rate [ Apical] Pulse Rate [ Posterior Bilateral Throughout] Respiratory 18 18 20 Rate Respiratory Rate [Anterior Bilateral Throughout] Respiratory Rate [Bilateral Leg] Respiratory Rate [ Generalized] Respiratory Rate [Posterior Bilateral Throughout] Blood Pressure 137/83 156/82 O2 Sat by Pulse 96 98 Oximetry Constitutional: no acute distress Eyes: non-icteric ENT: oropharynx moist Neck: supple, no lymphadenopathy, no JVD Effort: mildly labored Ascultation: Bilateral: diminished breath sounds, rales Percussion: Bilateral: not dull Cardiovascular: regular rate and rhythm, other (no rubs or murmurs) Gastrointestinal: normoactive bowel sounds, soft, non-tender, non-distended, other (no [place] HSM) Integumentary: normal Extremities: no cyanosis, no edema, pink and warm, pulses normal Neurologic: non-focal exam (grossly), pupils equal and round, CN II-XII normal, motor strength normal and Psychiatric: other (calm) CBC and BMP: 02/12/18 06:09 02/14/18 06:04 ABG, PT/INR, D-dimer: ABG POC ABG pH 7.441 (7.35-7.45) 02/04/18 15:05 POC ABG pCO2 43.6 (35-45) 02/04/18 15:05 POC ABG pO2 109 (80-105) H 02/04/18 15:05 POC ABG HCO3 29.7 02/04/18 15:05 POC ABG Total CO2 31 02/04/18 15:05 POC ABG O2 Sat 98 02/04/18 15:05 PT/INR, D-dimer PT 17.5 Sec. (12.2-14.9) H 01/20/18 07:00 INR 1.35 (0.87-1.13) H 01/20/18 07:00 Abnormal lab findings: Abnormal Labs 01/17/18 01/17/18 01/17/18 15:25 16:15 16:48 WBC RBC Hgb Hct MCH RDW Plt Count Lymph % (Auto) [place] % (Auto) Lymph # [place] # Seg Neutrophils % Seg Neuts % (Manual) Lymphocytes % (Manual) Monocytes % (Manual) Eosinophils % (Manual) Nucleated RBC % Seg Neutrophils # Seg Neutrophils # Man Lymphocytes # (Manual) Monocytes # (Manual) PT INR POC ABG pH 7.099 L POC ABG pCO2 58.9 H POC ABG pO2 149 H VBG pH Sodium Potassium Chloride Carbon Dioxide BUN Creatinine Glucose POC Glucose < 40 L 121 H Hemoglobin A1c Lactic Acid Calcium Ionized Calcium Total Bilirubin AST ALT Alkaline Phosphatase C-Reactive Protein Total Protein Albumin Complement C3 Complement C4 Crossmatch 01/17/18 01/17/18 01/17/18 16:54 16:54 16:54 WBC RBC Hgb Hct MCH RDW Plt Count Lymph % (Auto) [place] % (Auto) Lymph # [place] # Seg Neutrophils % Seg Neuts % (Manual) 72.0 H Lymphocytes % (Manual) 3.0 L Monocytes % (Manual) Eosinophils % (Manual) Nucleated RBC % Seg Neutrophils # Seg Neutrophils # Man Lymphocytes # (Manual) 0.2 L Monocytes # (Manual) PT 18.5 H INR 1.45 H POC ABG pH POC ABG pCO2 POC ABG pO2 VBG pH Sodium 136 L Potassium Chloride 97.8 L Carbon Dioxide 16 L BUN 43 H Creatinine 3.3 H Glucose 121 H POC Glucose Hemoglobin A1c Lactic Acid Calcium 6.7 L Ionized Calcium Total Bilirubin AST ALT Alkaline Phosphatase C-Reactive Protein Total Protein 4.4 L Albumin 2.3 L Complement C3 Complement C4 Crossmatch 01/17/18 01/17/18 01/17/18 16:54 16:54 17:11 WBC RBC Hgb Hct MCH RDW Plt Count Lymph % (Auto) [place] % (Auto) Lymph # [place] # Seg Neutrophils % Seg Neuts % (Manual) Lymphocytes % (Manual) Monocytes % (Manual) Eosinophils % (Manual) Nucleated RBC % Seg Neutrophils # Seg Neutrophils # Man Lymphocytes # (Manual) Monocytes # (Manual) PT INR POC ABG pH POC ABG pCO2 POC ABG pO2 VBG pH 7.273 L Sodium Potassium Chloride Carbon Dioxide BUN Creatinine Glucose POC Glucose Hemoglobin A1c Lactic Acid 4.70 H* 4.30 H* Calcium Ionized Calcium Total Bilirubin AST ALT Alkaline Phosphatase C-Reactive Protein Total Protein Albumin Complement C3 Complement C4 Crossmatch 01/17/18 01/17/18 01/17/18 18:02 18:15 19:21 WBC RBC Hgb Hct MCH RDW Plt Count Lymph % (Auto) [place] % (Auto) Lymph # [place] # Seg Neutrophils % Seg Neuts % (Manual) Lymphocytes % (Manual) Monocytes % (Manual) Eosinophils % (Manual) Nucleated RBC % Seg Neutrophils # Seg Neutrophils # Man Lymphocytes # (Manual) Monocytes # (Manual) PT INR POC ABG pH 7.177 L POC ABG pCO2 POC ABG pO2 VBG pH Sodium Potassium Chloride Carbon Dioxide BUN Creatinine Glucose POC Glucose < 40 L Hemoglobin A1c Lactic Acid 3.00 H* Calcium Ionized Calcium Total Bilirubin AST ALT Alkaline Phosphatase C-Reactive Protein Total Protein Albumin Complement C3 Complement C4 Crossmatch 01/17/18 01/17/18 01/17/18 22:36 22:36 23:16 WBC RBC Hgb Hct MCH RDW Plt Count Lymph % (Auto) [place] % (Auto) Lymph # [place] # Seg Neutrophils % Seg Neuts % (Manual) Lymphocytes % (Manual) Monocytes % (Manual) Eosinophils % (Manual) Nucleated RBC % Seg Neutrophils # Seg Neutrophils # Man Lymphocytes # (Manual) Monocytes # (Manual) PT INR POC ABG pH 7.112 L POC ABG pCO2 50.1 H POC ABG pO2 50 L VBG pH Sodium Potassium Chloride Carbon Dioxide BUN Creatinine Glucose POC Glucose Hemoglobin A1c 9.0 H Lactic Acid 5.50 H* Calcium Ionized Calcium Total Bilirubin AST ALT Alkaline Phosphatase C-Reactive Protein Total Protein Albumin Complement C3 Complement C4 Crossmatch 01/18/18 01/18/18 01/18/18 01:26 03:21 03:21 WBC RBC Hgb Hct MCH RDW Plt Count Lymph % (Auto) [place] % (Auto) Lymph # [place] # Seg Neutrophils % Seg Neuts % (Manual) 27.0 L Lymphocytes % (Manual) 3.0 L Monocytes % (Manual) 14.0 H Eosinophils % (Manual) Nucleated RBC % Seg Neutrophils # Seg Neutrophils # Man Lymphocytes # (Manual) 0.3 L Monocytes # (Manual) 1.4 H PT INR POC ABG pH POC ABG pCO2 POC ABG pO2 VBG pH Sodium Potassium Chloride Carbon Dioxide BUN Creatinine Glucose POC Glucose 107 H Hemoglobin A1c Lactic Acid 8.00 H* Calcium Ionized Calcium Total Bilirubin AST ALT Alkaline Phosphatase C-Reactive Protein Total Protein Albumin Complement C3 Complement C4 Crossmatch 01/18/18 01/18/18 01/18/18 03:21 04:40 05:07 WBC RBC Hgb Hct MCH RDW Plt Count Lymph % (Auto) [place] % (Auto) Lymph # [place] # Seg Neutrophils % Seg Neuts % (Manual) Lymphocytes % (Manual) Monocytes % (Manual) Eosinophils % (Manual) Nucleated RBC % Seg Neutrophils # Seg Neutrophils # Man Lymphocytes # (Manual) Monocytes # (Manual) PT INR POC ABG pH 7.093 L POC ABG pCO2 31.5 L POC ABG pO2 77 L VBG pH Sodium Potassium Chloride 96.9 L Carbon Dioxide 14 L BUN 47 H Creatinine 3.4 H Glucose POC Glucose Hemoglobin A1c Lactic Acid 11.10 H* Calcium 6.4 L Ionized Calcium Total Bilirubin AST 47 H ALT Alkaline Phosphatase C-Reactive Protein Total Protein 4.3 L Albumin 2.4 L Complement C3 Complement C4 Crossmatch 01/18/18 01/18/18 01/18/18 06:29 07:06 11:44 WBC RBC Hgb Hct MCH RDW Plt Count Lymph % (Auto) [place] % (Auto) Lymph # [place] # Seg Neutrophils % Seg Neuts % (Manual) Lymphocytes % (Manual) Monocytes % (Manual) Eosinophils % (Manual) Nucleated RBC % Seg Neutrophils # Seg Neutrophils # Man Lymphocytes # (Manual) Monocytes # (Manual) PT INR POC ABG pH POC ABG pCO2 POC ABG pO2 VBG pH Sodium Potassium Chloride Carbon Dioxide BUN Creatinine Glucose POC Glucose 47 L 149 H < 40 L Hemoglobin A1c Lactic Acid Calcium Ionized Calcium Total Bilirubin AST ALT Alkaline Phosphatase C-Reactive Protein Total Protein Albumin Complement C3 Complement C4 Crossmatch 01/18/18 01/18/18 01/18/18 11:46 14:15 18:01 WBC RBC Hgb Hct MCH RDW Plt Count Lymph % (Auto) [place] % (Auto) Lymph # [place] # Seg Neutrophils % Seg Neuts % (Manual) Lymphocytes % (Manual) Monocytes % (Manual) Eosinophils % (Manual) Nucleated RBC % Seg Neutrophils # Seg Neutrophils # Man Lymphocytes # (Manual) Monocytes # (Manual) PT INR POC ABG pH POC ABG pCO2 POC ABG pO2 VBG pH Sodium Potassium Chloride Carbon Dioxide BUN Creatinine Glucose POC Glucose 116 H < 40 L Hemoglobin A1c Lactic Acid 10.00 H* Calcium Ionized Calcium Total Bilirubin AST ALT Alkaline Phosphatase C-Reactive Protein Total Protein Albumin Complement C3 Complement C4 Crossmatch 01/18/18 01/18/18 01/18/18 18:02 23:25 23:27 WBC RBC Hgb Hct MCH RDW Plt Count Lymph % (Auto) [place] % (Auto) Lymph # [place] # Seg Neutrophils % Seg Neuts % (Manual) Lymphocytes % (Manual) Monocytes % (Manual) Eosinophils % (Manual) Nucleated RBC % Seg Neutrophils # Seg Neutrophils # Man Lymphocytes # (Manual) Monocytes # (Manual) PT INR POC ABG pH POC ABG pCO2 POC ABG pO2 VBG pH Sodium Potassium Chloride Carbon Dioxide BUN Creatinine Glucose POC Glucose 136 H < 40 L < 40 L Hemoglobin A1c Lactic Acid Calcium Ionized Calcium Total Bilirubin AST ALT Alkaline Phosphatase C-Reactive Protein Total Protein Albumin Complement C3 Complement C4 Crossmatch 01/19/18 01/19/18 01/19/18 04:02 06:50 06:50 WBC 18.5 H RBC Hgb Hct MCH RDW Plt Count 136 L Lymph % (Auto) [place] % (Auto) Lymph # [place] # Seg Neutrophils % Seg Neuts % (Manual) 86.0 H Lymphocytes % (Manual) 4.0 L Monocytes % (Manual) Eosinophils % (Manual) Nucleated RBC % Seg Neutrophils # Seg Neutrophils # Man 15.9 H Lymphocytes # (Manual) 0.7 L Monocytes # (Manual) 1.1 H PT 21.3 H INR 1.73 H POC ABG pH POC ABG pCO2 28.3 L POC ABG pO2 57 L VBG pH Sodium Potassium Chloride Carbon Dioxide BUN Creatinine Glucose POC Glucose Hemoglobin A1c Lactic Acid Calcium Ionized Calcium Total Bilirubin AST ALT Alkaline Phosphatase C-Reactive Protein Total Protein Albumin Complement C3 Complement C4 Crossmatch 01/19/18 01/19/18 01/19/18 06:50 08:45 11:17 WBC RBC Hgb Hct MCH RDW Plt Count Lymph % (Auto) [place] % (Auto) Lymph # [place] # Seg Neutrophils % Seg Neuts % (Manual) Lymphocytes % (Manual) Monocytes % (Manual) Eosinophils % (Manual) Nucleated RBC % Seg Neutrophils # Seg Neutrophils # Man Lymphocytes # (Manual) Monocytes # (Manual) PT INR POC ABG pH POC ABG pCO2 POC ABG pO2 VBG pH Sodium 135 L Potassium Chloride 92.8 L Carbon Dioxide 19 L BUN 31 H Creatinine 2.6 H Glucose POC Glucose 110 H Hemoglobin A1c Lactic Acid 7.90 H* Calcium 7.1 L Ionized Calcium Total Bilirubin 1.60 H AST 2526 H ALT 1187 H Alkaline Phosphatase 133 H C-Reactive Protein Total Protein 4.8 L Albumin 2.0 L Complement C3 Complement C4 Crossmatch 01/19/18 01/19/18 01/19/18 11:31 22:12 23:34 WBC RBC Hgb Hct MCH RDW Plt Count Lymph % (Auto) [place] % (Auto) Lymph # [place] # Seg Neutrophils % Seg Neuts % (Manual) Lymphocytes % (Manual) Monocytes % (Manual) Eosinophils % (Manual) Nucleated RBC % Seg Neutrophils # Seg Neutrophils # Man Lymphocytes # (Manual) Monocytes # (Manual) PT INR POC ABG pH POC ABG pCO2 31.6 L POC ABG pO2 59 L VBG pH Sodium Potassium Chloride Carbon Dioxide BUN Creatinine Glucose POC Glucose 131 H 53 L Hemoglobin A1c Lactic Acid Calcium Ionized Calcium Total Bilirubin AST ALT Alkaline Phosphatase C-Reactive Protein Total Protein Albumin Complement C3 Complement C4 Crossmatch 01/20/18 01/20/18 01/20/18 05:18 05:18 05:19 WBC 19.7 H RBC Hgb Hct MCH 27 L RDW Plt Count 84 L Lymph % (Auto) [place] % (Auto) Lymph # [place] # Seg Neutrophils % Seg Neuts % (Manual) 84.0 H Lymphocytes % (Manual) 2.0 L Monocytes % (Manual) 8.0 H Eosinophils % (Manual) Nucleated RBC % Seg Neutrophils # Seg Neutrophils # Man 16.5 H Lymphocytes # (Manual) 0.4 L Monocytes # (Manual) 1.6 H PT INR POC ABG pH POC ABG pCO2 POC ABG pO2 VBG pH Sodium 136 L Potassium Chloride 96.9 L Carbon Dioxide 17 L BUN 65 H Creatinine 4.1 H D Glucose 104 H POC Glucose 125 H Hemoglobin A1c Lactic Acid Calcium 7.1 L Ionized Calcium Total Bilirubin 1.60 H AST 1702 H ALT 1141 H Alkaline Phosphatase 172 H C-Reactive Protein Total Protein 5.0 L Albumin 1.7 L Complement C3 Complement C4 Crossmatch 01/20/18 01/20/18 01/20/18 07:00 11:48 13:54 WBC RBC Hgb Hct MCH RDW Plt Count Lymph % (Auto) [place] % (Auto) Lymph # [place] # Seg Neutrophils % Seg Neuts % (Manual) Lymphocytes % (Manual) Monocytes % (Manual) Eosinophils % (Manual) Nucleated RBC % Seg Neutrophils # Seg Neutrophils # Man Lymphocytes # (Manual) Monocytes # (Manual) PT 17.5 H INR 1.35 H POC ABG pH POC ABG pCO2 POC ABG pO2 VBG pH Sodium Potassium Chloride Carbon Dioxide BUN Creatinine Glucose POC Glucose 109 H Hemoglobin A1c Lactic Acid Calcium Ionized Calcium Total Bilirubin AST ALT Alkaline Phosphatase C-Reactive Protein 37.50 H Total Protein Albumin Complement C3 Complement C4 Crossmatch 01/20/18 01/20/18 01/20/18 17:28 17:51 20:50 WBC RBC Hgb Hct MCH RDW Plt Count Lymph % (Auto) [place] % (Auto) Lymph # [place] # Seg Neutrophils % Seg Neuts % (Manual) Lymphocytes % (Manual) Monocytes % (Manual) Eosinophils % (Manual) Nucleated RBC % Seg Neutrophils # Seg Neutrophils # Man Lymphocytes # (Manual) Monocytes # (Manual) PT INR POC ABG pH POC ABG pCO2 POC ABG pO2 VBG pH Sodium Potassium Chloride Carbon Dioxide BUN Creatinine Glucose POC Glucose 140 H Hemoglobin A1c Lactic Acid 2.70 H* 2.30 H* Calcium Ionized Calcium Total Bilirubin AST ALT Alkaline Phosphatase C-Reactive Protein Total Protein Albumin Complement C3 Complement C4 Crossmatch 01/20/18 01/20/18 01/20/18 23:55 Unknown Unknown WBC RBC Hgb Hct MCH RDW Plt Count Lymph % (Auto) [place] % (Auto) Lymph # [place] # Seg Neutrophils % Seg Neuts % (Manual) Lymphocytes % (Manual) Monocytes % (Manual) Eosinophils % (Manual) Nucleated RBC % Seg Neutrophils # Seg Neutrophils # Man Lymphocytes # (Manual) Monocytes # (Manual) PT INR POC ABG pH POC ABG pCO2 POC ABG pO2 VBG pH Sodium Potassium Chloride Carbon Dioxide BUN Creatinine Glucose POC Glucose 149 H Hemoglobin A1c Lactic Acid 2.50 H* Calcium Ionized Calcium Total Bilirubin AST ALT Alkaline Phosphatase C-Reactive Protein Total Protein Albumin Complement C3 47 L Complement C4 Crossmatch 01/20/18 01/21/18 01/21/18 Unknown 00:12 04:27 WBC RBC Hgb Hct MCH RDW Plt Count Lymph % (Auto) [place] % (Auto) Lymph # [place] # Seg Neutrophils % Seg Neuts % (Manual) Lymphocytes % (Manual) Monocytes % (Manual) Eosinophils % (Manual) Nucleated RBC % Seg Neutrophils # Seg Neutrophils # Man Lymphocytes # (Manual) Monocytes # (Manual) PT INR POC ABG pH POC ABG pCO2 33.8 L POC ABG pO2 72 L VBG pH Sodium Potassium Chloride Carbon Dioxide BUN Creatinine Glucose POC Glucose 134 H Hemoglobin A1c Lactic Acid Calcium Ionized Calcium Total Bilirubin AST ALT Alkaline Phosphatase C-Reactive Protein Total Protein Albumin Complement C3 Complement C4 9 L Crossmatch 01/21/18 01/21/18 01/21/18 05:00 05:00 05:00 WBC 21.7 H RBC Hgb Hct MCH 27 L RDW Plt Count 67 L Lymph % (Auto) [place] % (Auto) Lymph # [place] # Seg Neutrophils % Seg Neuts % (Manual) 71.0 H Lymphocytes % (Manual) 9.0 L Monocytes % (Manual) Eosinophils % (Manual) Nucleated RBC % 4.0 H Seg Neutrophils # Seg Neutrophils # Man 15.4 H Lymphocytes # (Manual) Monocytes # (Manual) PT INR POC ABG pH POC ABG pCO2 POC ABG pO2 VBG pH Sodium Potassium Chloride Carbon Dioxide 21 L BUN 71 H Creatinine 4.1 H Glucose 149 H POC Glucose Hemoglobin A1c Lactic Acid 2.10 H* Calcium 7.5 L Ionized Calcium Total Bilirubin AST 494 H ALT 780 H Alkaline Phosphatase 151 H C-Reactive Protein Total Protein 4.9 L Albumin 1.9 L Complement C3 Complement C4 Crossmatch 01/21/18 01/21/18 01/21/18 05:18 12:20 18:07 WBC RBC Hgb Hct MCH RDW Plt Count Lymph % (Auto) [place] % (Auto) Lymph # [place] # Seg Neutrophils % Seg Neuts % (Manual) Lymphocytes % (Manual) Monocytes % (Manual) Eosinophils % (Manual) Nucleated RBC % Seg Neutrophils # Seg Neutrophils # Man Lymphocytes # (Manual) Monocytes # (Manual) PT INR POC ABG pH POC ABG pCO2 POC ABG pO2 VBG pH Sodium Potassium Chloride Carbon Dioxide BUN Creatinine Glucose POC Glucose 132 H 158 H 143 H Hemoglobin A1c Lactic Acid Calcium Ionized Calcium Total Bilirubin AST ALT Alkaline Phosphatase C-Reactive Protein Total Protein Albumin Complement C3 Complement C4 Crossmatch 01/21/18 01/22/18 01/22/18 23:40 03:48 04:10 WBC 24.9 H RBC Hgb Hct MCH 27 L RDW Plt Count 80 L Lymph % (Auto) [place] % (Auto) Lymph # [place] # Seg Neutrophils % Seg Neuts % (Manual) Lymphocytes % (Manual) Monocytes % (Manual) Eosinophils % (Manual) Nucleated RBC % Seg Neutrophils # Seg Neutrophils # Man Lymphocytes # (Manual) Monocytes # (Manual) PT INR POC ABG pH POC ABG pCO2 POC ABG pO2 65 L VBG pH Sodium Potassium Chloride Carbon Dioxide BUN Creatinine Glucose POC Glucose 136 H Hemoglobin A1c Lactic Acid Calcium Ionized Calcium Total Bilirubin AST ALT Alkaline Phosphatase C-Reactive Protein Total Protein Albumin Complement C3 Complement C4 Crossmatch 01/22/18 01/22/18 01/22/18 04:10 05:56 11:30 WBC RBC Hgb Hct MCH RDW Plt Count Lymph % (Auto) [place] % (Auto) Lymph # [place] # Seg Neutrophils % Seg Neuts % (Manual) Lymphocytes % (Manual) Monocytes % (Manual) Eosinophils % (Manual) Nucleated RBC % Seg Neutrophils # Seg Neutrophils # Man Lymphocytes # (Manual) Monocytes # (Manual) PT INR POC ABG pH POC ABG pCO2 POC ABG pO2 VBG pH Sodium Potassium Chloride 97.7 L Carbon Dioxide BUN 72 H Creatinine 3.6 H Glucose 145 H POC Glucose 139 H 156 H Hemoglobin A1c Lactic Acid Calcium 7.3 L Ionized Calcium Total Bilirubin AST 146 H ALT 547 H Alkaline Phosphatase C-Reactive Protein Total Protein 5.2 L Albumin 2.3 L Complement C3 Complement C4 Crossmatch 01/22/18 01/23/18 01/23/18 17:41 00:00 04:39 WBC RBC Hgb Hct MCH RDW Plt Count Lymph % (Auto) [place] % (Auto) Lymph # [place] # Seg Neutrophils % Seg Neuts % (Manual) Lymphocytes % (Manual) Monocytes % (Manual) Eosinophils % (Manual) Nucleated RBC % Seg Neutrophils # Seg Neutrophils # Man Lymphocytes # (Manual) Monocytes # (Manual) PT INR POC ABG pH POC ABG pCO2 31.9 L POC ABG pO2 62 L VBG pH Sodium Potassium Chloride Carbon Dioxide BUN Creatinine Glucose POC Glucose 185 H 150 H Hemoglobin A1c Lactic Acid Calcium Ionized Calcium Total Bilirubin AST ALT Alkaline Phosphatase C-Reactive Protein Total Protein Albumin Complement C3 Complement C4 Crossmatch 01/23/18 01/23/18 01/23/18 05:24 11:38 14:20 WBC RBC Hgb Hct MCH RDW Plt Count Lymph % (Auto) [place] % (Auto) Lymph # [place] # Seg Neutrophils % Seg Neuts % (Manual) Lymphocytes % (Manual) Monocytes % (Manual) Eosinophils % (Manual) Nucleated RBC % Seg Neutrophils # Seg Neutrophils # Man Lymphocytes # (Manual) Monocytes # (Manual) PT INR POC ABG pH POC ABG pCO2 31.4 L POC ABG pO2 55 L VBG pH Sodium Potassium Chloride Carbon Dioxide BUN Creatinine Glucose POC Glucose 215 H 182 H Hemoglobin A1c Lactic Acid Calcium Ionized Calcium Total Bilirubin AST ALT Alkaline Phosphatase C-Reactive Protein Total Protein Albumin Complement C3 Complement C4 Crossmatch 01/23/18 01/24/18 01/24/18 17:26 00:10 03:40 WBC 34.5 H RBC Hgb Hct MCH 27 L RDW Plt Count 130 L Lymph % (Auto) [place] % (Auto) Lymph # [place] # Seg Neutrophils % Seg Neuts % (Manual) Lymphocytes % (Manual) Monocytes % (Manual) Eosinophils % (Manual) Nucleated RBC % Seg Neutrophils # Seg Neutrophils # Man Lymphocytes # (Manual) Monocytes # (Manual) PT INR POC ABG pH POC ABG pCO2 POC ABG pO2 VBG pH Sodium Potassium Chloride Carbon Dioxide BUN Creatinine Glucose POC Glucose 252 H 225 H Hemoglobin A1c Lactic Acid Calcium Ionized Calcium Total Bilirubin AST ALT Alkaline Phosphatase C-Reactive Protein Total Protein Albumin Complement C3 Complement C4 Crossmatch 01/24/18 01/24/18 01/24/18 03:40 06:06 11:36 WBC RBC Hgb Hct MCH RDW Plt Count Lymph % (Auto) [place] % (Auto) Lymph # [place] # Seg Neutrophils % Seg Neuts % (Manual) Lymphocytes % (Manual) Monocytes % (Manual) Eosinophils % (Manual) Nucleated RBC % Seg Neutrophils # Seg Neutrophils # Man Lymphocytes # (Manual) Monocytes # (Manual) PT INR POC ABG pH POC ABG pCO2 POC ABG pO2 VBG pH Sodium Potassium 5.7 H D Chloride 95.6 L Carbon Dioxide 20 L BUN 96 H Creatinine 4.2 H Glucose 166 H POC Glucose 162 H 160 H Hemoglobin A1c Lactic Acid Calcium 7.3 L Ionized Calcium Total Bilirubin AST 52 H ALT 235 H Alkaline Phosphatase C-Reactive Protein Total Protein 5.1 L Albumin 2.5 L Complement C3 Complement C4 Crossmatch 01/24/18 01/24/18 01/25/18 15:08 17:32 00:04 WBC RBC Hgb Hct MCH RDW Plt Count Lymph % (Auto) [place] % (Auto) Lymph # [place] # Seg Neutrophils % Seg Neuts % (Manual) Lymphocytes % (Manual) Monocytes % (Manual) Eosinophils % (Manual) Nucleated RBC % Seg Neutrophils # Seg Neutrophils # Man Lymphocytes # (Manual) Monocytes # (Manual) PT INR POC ABG pH POC ABG pCO2 POC ABG pO2 VBG pH Sodium Potassium Chloride Carbon Dioxide BUN Creatinine Glucose POC Glucose 160 H 169 H Hemoglobin A1c Lactic Acid Calcium Ionized Calcium Total Bilirubin AST ALT Alkaline Phosphatase C-Reactive Protein 3.30 H Total Protein Albumin Complement C3 Complement C4 Crossmatch 01/25/18 01/25/18 01/25/18 04:34 05:25 11:46 WBC RBC Hgb Hct MCH RDW Plt Count Lymph % (Auto) [place] % (Auto) Lymph # [place] # Seg Neutrophils % Seg Neuts % (Manual) Lymphocytes % (Manual) Monocytes % (Manual) Eosinophils % (Manual) Nucleated RBC % Seg Neutrophils # Seg Neutrophils # Man Lymphocytes # (Manual) Monocytes # (Manual) PT INR POC ABG pH 7.342 L POC ABG pCO2 48.7 H POC ABG pO2 VBG pH Sodium Potassium Chloride Carbon Dioxide BUN Creatinine Glucose POC Glucose 133 H 121 H Hemoglobin A1c Lactic Acid Calcium Ionized Calcium Total Bilirubin AST ALT Alkaline Phosphatase C-Reactive Protein Total Protein Albumin Complement C3 Complement C4 Crossmatch 01/25/18 01/25/18 01/26/18 17:42 23:50 04:13 WBC RBC Hgb Hct MCH RDW Plt Count Lymph % (Auto) [place] % (Auto) Lymph # [place] # Seg Neutrophils % Seg Neuts % (Manual) Lymphocytes % (Manual) Monocytes % (Manual) Eosinophils % (Manual) Nucleated RBC % Seg Neutrophils # Seg Neutrophils # Man Lymphocytes # (Manual) Monocytes # (Manual) PT INR POC ABG pH POC ABG pCO2 POC ABG pO2 70 L VBG pH Sodium Potassium Chloride Carbon Dioxide BUN Creatinine Glucose POC Glucose 150 H 149 H Hemoglobin A1c Lactic Acid Calcium Ionized Calcium Total Bilirubin AST ALT Alkaline Phosphatase C-Reactive Protein Total Protein Albumin Complement C3 Complement C4 Crossmatch 01/26/18 01/26/18 01/26/18 05:25 06:20 06:20 WBC 21.0 H RBC Hgb Hct MCH RDW Plt Count Lymph % (Auto) [place] % (Auto) Lymph # [place] # Seg Neutrophils % Seg Neuts % (Manual) 95.0 H Lymphocytes % (Manual) 1.0 L Monocytes % (Manual) Eosinophils % (Manual) Nucleated RBC % Seg Neutrophils # Seg Neutrophils # Man 20.0 H Lymphocytes # (Manual) 0.2 L Monocytes # (Manual) PT INR POC ABG pH POC ABG pCO2 POC ABG pO2 VBG pH Sodium Potassium 5.9 H Chloride 95.7 L Carbon Dioxide BUN 102 H Creatinine 4.6 H Glucose POC Glucose 107 H Hemoglobin A1c Lactic Acid Calcium 6.6 L Ionized Calcium Total Bilirubin AST ALT Alkaline Phosphatase C-Reactive Protein Total Protein Albumin Complement C3 Complement C4 Crossmatch 01/26/18 01/26/18 01/27/18 12:19 18:09 00:17 WBC RBC Hgb Hct MCH RDW Plt Count Lymph % (Auto) [place] % (Auto) Lymph # [place] # Seg Neutrophils % Seg Neuts % (Manual) Lymphocytes % (Manual) Monocytes % (Manual) Eosinophils % (Manual) Nucleated RBC % Seg Neutrophils # Seg Neutrophils # Man Lymphocytes # (Manual) Monocytes # (Manual) PT INR POC ABG pH POC ABG pCO2 POC ABG pO2 VBG pH Sodium Potassium Chloride Carbon Dioxide BUN Creatinine Glucose POC Glucose 151 H 110 H 159 H Hemoglobin A1c Lactic Acid Calcium Ionized Calcium Total Bilirubin AST ALT Alkaline Phosphatase C-Reactive Protein Total Protein Albumin Complement C3 Complement C4 Crossmatch 01/27/18 01/27/18 01/27/18 05:20 05:20 05:43 WBC 23.3 H RBC Hgb Hct MCH 27 L RDW Plt Count Lymph % (Auto) [place] % (Auto) Lymph # [place] # Seg Neutrophils % Seg Neuts % (Manual) 97.0 H Lymphocytes % (Manual) 0 L Monocytes % (Manual) Eosinophils % (Manual) Nucleated RBC % Seg Neutrophils # Seg Neutrophils # Man 22.6 H Lymphocytes # (Manual) 0.0 L Monocytes # (Manual) PT INR POC ABG pH POC ABG pCO2 POC ABG pO2 VBG pH Sodium Potassium 5.7 H Chloride 93.9 L Carbon Dioxide 21 L BUN 121 H Creatinine 5.2 H Glucose 131 H POC Glucose 121 H Hemoglobin A1c Lactic Acid Calcium 6.1 L Ionized Calcium Total Bilirubin AST ALT Alkaline Phosphatase C-Reactive Protein Total Protein Albumin Complement C3 Complement C4 Crossmatch 01/27/18 01/27/18 01/28/18 12:16 17:32 00:05 WBC RBC Hgb Hct MCH RDW Plt Count Lymph % (Auto) [place] % (Auto) Lymph # [place] # Seg Neutrophils % Seg Neuts % (Manual) Lymphocytes % (Manual) Monocytes % (Manual) Eosinophils % (Manual) Nucleated RBC % Seg Neutrophils # Seg Neutrophils # Man Lymphocytes # (Manual) Monocytes # (Manual) PT INR POC ABG pH POC ABG pCO2 POC ABG pO2 VBG pH Sodium Potassium Chloride Carbon Dioxide BUN Creatinine Glucose POC Glucose 161 H 146 H 128 H Hemoglobin A1c Lactic Acid Calcium Ionized Calcium Total Bilirubin AST ALT Alkaline Phosphatase C-Reactive Protein Total Protein Albumin Complement C3 Complement C4 Crossmatch 01/28/18 01/28/18 01/28/18 04:24 05:43 06:30 WBC 24.8 H RBC Hgb Hct MCH RDW Plt Count Lymph % (Auto) [place] % (Auto) Lymph # [place] # Seg Neutrophils % Seg Neuts % (Manual) 91.0 H Lymphocytes % (Manual) 4.0 L Monocytes % (Manual) Eosinophils % (Manual) Nucleated RBC % Seg Neutrophils # Seg Neutrophils # Man 22.6 H Lymphocytes # (Manual) 1.0 L Monocytes # (Manual) 1.0 H PT INR POC ABG pH POC ABG pCO2 POC ABG pO2 77 L VBG pH Sodium Potassium Chloride Carbon Dioxide BUN Creatinine Glucose POC Glucose 137 H Hemoglobin A1c Lactic Acid Calcium Ionized Calcium Total Bilirubin AST ALT Alkaline Phosphatase C-Reactive Protein Total Protein Albumin Complement C3 Complement C4 Crossmatch 01/28/18 01/28/18 01/28/18 06:30 11:30 18:08 WBC RBC Hgb Hct MCH RDW Plt Count Lymph % (Auto) [place] % (Auto) Lymph # [place] # Seg Neutrophils % Seg Neuts % (Manual) Lymphocytes % (Manual) Monocytes % (Manual) Eosinophils % (Manual) Nucleated RBC % Seg Neutrophils # Seg Neutrophils # Man Lymphocytes # (Manual) Monocytes # (Manual) PT INR POC ABG pH POC ABG pCO2 POC ABG pO2 VBG pH Sodium Potassium Chloride 95.2 L Carbon Dioxide BUN 70 H Creatinine 3.7 H Glucose 135 H POC Glucose 183 H 129 H Hemoglobin A1c Lactic Acid Calcium 6.4 L Ionized Calcium Total Bilirubin AST ALT Alkaline Phosphatase C-Reactive Protein Total Protein Albumin Complement C3 Complement C4 Crossmatch 01/29/18 01/29/18 01/29/18 00:00 05:50 06:00 WBC 15.8 H RBC 3.37 L Hgb 9.1 L Hct 28.6 L MCH 27 L RDW Plt Count Lymph % (Auto) [place] % (Auto) Lymph # [place] # Seg Neutrophils % Seg Neuts % (Manual) 87.0 H Lymphocytes % (Manual) 7.0 L Monocytes % (Manual) Eosinophils % (Manual) Nucleated RBC % Seg Neutrophils # Seg Neutrophils # Man 13.7 H Lymphocytes # (Manual) 1.1 L Monocytes # (Manual) PT INR POC ABG pH POC ABG pCO2 POC ABG pO2 VBG pH Sodium Potassium Chloride Carbon Dioxide BUN Creatinine Glucose POC Glucose 111 H 120 H Hemoglobin A1c Lactic Acid Calcium Ionized Calcium Total Bilirubin AST ALT Alkaline Phosphatase C-Reactive Protein Total Protein Albumin Complement C3 Complement C4 Crossmatch 01/29/18 01/29/18 01/29/18 06:00 06:00 12:29 WBC RBC Hgb Hct MCH RDW Plt Count Lymph % (Auto) [place] % (Auto) Lymph # [place] # Seg Neutrophils % Seg Neuts % (Manual) Lymphocytes % (Manual) Monocytes % (Manual) Eosinophils % (Manual) Nucleated RBC % Seg Neutrophils # Seg Neutrophils # Man Lymphocytes # (Manual) Monocytes # (Manual) PT INR POC ABG pH POC ABG pCO2 POC ABG pO2 VBG pH Sodium 136 L Potassium Chloride 95.4 L Carbon Dioxide BUN 94 H Creatinine 4.2 H Glucose 120 H POC Glucose 134 H Hemoglobin A1c Lactic Acid Calcium 6.5 L Ionized Calcium 3.9 L Total Bilirubin AST ALT Alkaline Phosphatase C-Reactive Protein Total Protein 4.5 L Albumin 2.0 L Complement C3 Complement C4 Crossmatch 01/29/18 01/30/18 01/30/18 18:32 00:12 04:47 WBC RBC Hgb Hct MCH RDW Plt Count Lymph % (Auto) [place] % (Auto) Lymph # [place] # Seg Neutrophils % Seg Neuts % (Manual) Lymphocytes % (Manual) Monocytes % (Manual) Eosinophils % (Manual) Nucleated RBC % Seg Neutrophils # Seg Neutrophils # Man Lymphocytes # (Manual) Monocytes # (Manual) PT INR POC ABG pH 7.456 H POC ABG pCO2 POC ABG pO2 VBG pH Sodium Potassium Chloride Carbon Dioxide BUN Creatinine Glucose POC Glucose 158 H 155 H Hemoglobin A1c Lactic Acid Calcium Ionized Calcium Total Bilirubin AST ALT Alkaline Phosphatase C-Reactive Protein Total Protein Albumin Complement C3 Complement C4 Crossmatch 01/30/18 01/30/18 01/30/18 12:06 17:46 Unknown WBC 12.8 H RBC 3.09 L Hgb 8.4 L Hct 26.2 L MCH 27 L RDW Plt Count Lymph % (Auto) [place] % (Auto) Lymph # [place] # Seg Neutrophils % Seg Neuts % (Manual) 95.0 H Lymphocytes % (Manual) 1.0 L Monocytes % (Manual) Eosinophils % (Manual) Nucleated RBC % Seg Neutrophils # Seg Neutrophils # Man 12.2 H Lymphocytes # (Manual) 0.1 L Monocytes # (Manual) PT INR POC ABG pH POC ABG pCO2 POC ABG pO2 VBG pH Sodium Potassium Chloride Carbon Dioxide BUN Creatinine Glucose POC Glucose 117 H 166 H Hemoglobin A1c Lactic Acid Calcium Ionized Calcium Total Bilirubin AST ALT Alkaline Phosphatase C-Reactive Protein Total Protein Albumin Complement C3 Complement C4 Crossmatch 01/30/18 01/31/18 01/31/18 Unknown 00:04 04:50 WBC 13.6 H RBC 3.53 L Hgb 9.8 L Hct 30.0 L MCH RDW 15.4 H Plt Count Lymph % (Auto) 3.6 L [place] % (Auto) 8.7 H Lymph # 0.5 L [place] # 1.2 H Seg Neutrophils % 87.1 H Seg Neuts % (Manual) Lymphocytes % (Manual) Monocytes % (Manual) Eosinophils % (Manual) Nucleated RBC % Seg Neutrophils # 11.8 H Seg Neutrophils # Man Lymphocytes # (Manual) Monocytes # (Manual) PT INR POC ABG pH POC ABG pCO2 POC ABG pO2 VBG pH Sodium Potassium Chloride Carbon Dioxide BUN 52 H Creatinine 2.9 H Glucose 105 H POC Glucose 155 H Hemoglobin A1c Lactic Acid Calcium 6.7 L Ionized Calcium Total Bilirubin AST ALT Alkaline Phosphatase C-Reactive Protein Total Protein Albumin Complement C3 Complement C4 Crossmatch 01/31/18 01/31/18 01/31/18 04:50 17:08 23:38 WBC RBC Hgb Hct MCH RDW Plt Count Lymph % (Auto) [place] % (Auto) Lymph # [place] # Seg Neutrophils % Seg Neuts % (Manual) Lymphocytes % (Manual) Monocytes % (Manual) Eosinophils % (Manual) Nucleated RBC % Seg Neutrophils # Seg Neutrophils # Man Lymphocytes # (Manual) Monocytes # (Manual) PT INR POC ABG pH POC ABG pCO2 POC ABG pO2 VBG pH Sodium Potassium Chloride Carbon Dioxide BUN 70 H Creatinine 3.3 H Glucose 102 H POC Glucose 106 H 136 H Hemoglobin A1c Lactic Acid Calcium 7.1 L Ionized Calcium Total Bilirubin AST ALT Alkaline Phosphatase C-Reactive Protein Total Protein Albumin Complement C3 Complement C4 Crossmatch 02/01/18 02/01/18 02/01/18 04:00 04:00 05:25 WBC RBC 3.16 L Hgb 8.7 L Hct 27.5 L MCH RDW Plt Count Lymph % (Auto) 6.4 L [place] % (Auto) 10.2 H Lymph # 0.7 L [place] # 1.1 H Seg Neutrophils % 81.7 H Seg Neuts % (Manual) Lymphocytes % (Manual) Monocytes % (Manual) Eosinophils % (Manual) Nucleated RBC % Seg Neutrophils # 8.6 H Seg Neutrophils # Man Lymphocytes # (Manual) Monocytes # (Manual) PT INR POC ABG pH POC ABG pCO2 POC ABG pO2 VBG pH Sodium Potassium 3.4 L Chloride Carbon Dioxide 31 H BUN 42 H Creatinine 2.2 H Glucose 101 H POC Glucose 163 H Hemoglobin A1c Lactic Acid Calcium 7.1 L Ionized Calcium Total Bilirubin AST ALT Alkaline Phosphatase C-Reactive Protein Total Protein Albumin Complement C3 Complement C4 Crossmatch 02/01/18 02/01/18 02/01/18 11:54 18:21 23:34 WBC RBC Hgb Hct MCH RDW Plt Count Lymph % (Auto) [place] % (Auto) Lymph # [place] # Seg Neutrophils % Seg Neuts % (Manual) Lymphocytes % (Manual) Monocytes % (Manual) Eosinophils % (Manual) Nucleated RBC % Seg Neutrophils # Seg Neutrophils # Man Lymphocytes # (Manual) Monocytes # (Manual) PT INR POC ABG pH POC ABG pCO2 POC ABG pO2 VBG pH Sodium Potassium Chloride Carbon Dioxide BUN Creatinine Glucose POC Glucose 123 H 157 H 114 H Hemoglobin A1c Lactic Acid Calcium Ionized Calcium Total Bilirubin AST ALT Alkaline Phosphatase C-Reactive Protein Total Protein Albumin Complement C3 Complement C4 Crossmatch 02/02/18 02/02/18 02/02/18 03:30 05:45 17:27 WBC RBC Hgb Hct MCH RDW Plt Count Lymph % (Auto) [place] % (Auto) Lymph # [place] # Seg Neutrophils % Seg Neuts % (Manual) Lymphocytes % (Manual) Monocytes % (Manual) Eosinophils % (Manual) Nucleated RBC % Seg Neutrophils # Seg Neutrophils # Man Lymphocytes # (Manual) Monocytes # (Manual) PT INR POC ABG pH POC ABG pCO2 POC ABG pO2 VBG pH Sodium Potassium 3.3 L Chloride 97.8 L Carbon Dioxide BUN 58 H Creatinine 2.7 H Glucose 111 H POC Glucose 110 H 125 H Hemoglobin A1c Lactic Acid Calcium 7.1 L Ionized Calcium Total Bilirubin AST ALT Alkaline Phosphatase C-Reactive Protein Total Protein Albumin Complement C3 Complement C4 Crossmatch 02/02/18 02/03/18 02/03/18 23:34 04:45 05:38 WBC RBC Hgb Hct MCH RDW Plt Count Lymph % (Auto) [place] % (Auto) Lymph # [place] # Seg Neutrophils % Seg Neuts % (Manual) Lymphocytes % (Manual) Monocytes % (Manual) Eosinophils % (Manual) Nucleated RBC % Seg Neutrophils # Seg Neutrophils # Man Lymphocytes # (Manual) Monocytes # (Manual) PT INR POC ABG pH POC ABG pCO2 POC ABG pO2 VBG pH Sodium Potassium Chloride Carbon Dioxide BUN 72 H Creatinine 3.2 H Glucose POC Glucose 153 H 111 H Hemoglobin A1c Lactic Acid Calcium 7.6 L Ionized Calcium Total Bilirubin AST ALT Alkaline Phosphatase C-Reactive Protein Total Protein Albumin Complement C3 Complement C4 Crossmatch 02/03/18 02/03/18 02/03/18 11:36 18:26 22:45 WBC RBC Hgb Hct MCH RDW Plt Count Lymph % (Auto) [place] % (Auto) Lymph # [place] # Seg Neutrophils % Seg Neuts % (Manual) Lymphocytes % (Manual) Monocytes % (Manual) Eosinophils % (Manual) Nucleated RBC % Seg Neutrophils # Seg Neutrophils # Man Lymphocytes # (Manual) Monocytes # (Manual) PT INR POC ABG pH POC ABG pCO2 POC ABG pO2 VBG pH Sodium Potassium Chloride Carbon Dioxide BUN Creatinine Glucose POC Glucose 108 H 155 H 141 H Hemoglobin A1c Lactic Acid Calcium Ionized Calcium Total Bilirubin AST ALT Alkaline Phosphatase C-Reactive Protein Total Protein Albumin Complement C3 Complement C4 Crossmatch 02/04/18 02/04/18 02/04/18 04:06 11:57 15:05 WBC RBC Hgb Hct MCH RDW Plt Count Lymph % (Auto) [place] % (Auto) Lymph # [place] # Seg Neutrophils % Seg Neuts % (Manual) Lymphocytes % (Manual) Monocytes % (Manual) Eosinophils % (Manual) Nucleated RBC % Seg Neutrophils # Seg Neutrophils # Man Lymphocytes # (Manual) Monocytes # (Manual) PT INR POC ABG pH POC ABG pCO2 POC ABG pO2 109 H VBG pH Sodium 136 L Potassium 3.4 L Chloride 96.7 L Carbon Dioxide BUN 42 H Creatinine 1.9 H Glucose POC Glucose 119 H Hemoglobin A1c Lactic Acid Calcium 7.3 L Ionized Calcium Total Bilirubin AST ALT Alkaline Phosphatase C-Reactive Protein Total Protein Albumin Complement C3 Complement C4 Crossmatch 02/05/18 02/05/18 02/05/18 04:10 05:04 18:02 WBC RBC Hgb Hct MCH RDW Plt Count Lymph % (Auto) [place] % (Auto) Lymph # [place] # Seg Neutrophils % Seg Neuts % (Manual) Lymphocytes % (Manual) Monocytes % (Manual) Eosinophils % (Manual) Nucleated RBC % Seg Neutrophils # Seg Neutrophils # Man Lymphocytes # (Manual) Monocytes # (Manual) PT INR POC ABG pH POC ABG pCO2 POC ABG pO2 VBG pH Sodium Potassium 3.5 L Chloride Carbon Dioxide BUN 52 H Creatinine 2.2 H Glucose POC Glucose 108 H 124 H Hemoglobin A1c Lactic Acid Calcium 7.5 L Ionized Calcium Total Bilirubin AST ALT Alkaline Phosphatase C-Reactive Protein Total Protein Albumin Complement C3 Complement C4 Crossmatch 02/06/18 02/06/18 02/06/18 05:38 07:52 07:52 WBC RBC 2.91 L Hgb 8.1 L Hct 24.6 L MCH RDW Plt Count Lymph % (Auto) 11.2 L [place] % (Auto) 8.5 H Lymph # 0.6 L [place] # Seg Neutrophils % 76.9 H Seg Neuts % (Manual) Lymphocytes % (Manual) Monocytes % (Manual) Eosinophils % (Manual) Nucleated RBC % Seg Neutrophils # Seg Neutrophils # Man Lymphocytes # (Manual) Monocytes # (Manual) PT INR POC ABG pH POC ABG pCO2 POC ABG pO2 VBG pH Sodium Potassium 3.2 L Chloride Carbon Dioxide BUN 37 H Creatinine 1.6 H Glucose 109 H POC Glucose 119 H Hemoglobin A1c Lactic Acid Calcium 8.1 L Ionized Calcium Total Bilirubin AST ALT Alkaline Phosphatase C-Reactive Protein Total Protein Albumin Complement C3 Complement C4 Crossmatch 02/06/18 02/06/18 02/07/18 12:14 17:20 07:45 WBC RBC 2.61 L Hgb 7.4 L Hct 22.7 L MCH RDW Plt Count Lymph % (Auto) [place] % (Auto) Lymph # [place] # Seg Neutrophils % Seg Neuts % (Manual) Lymphocytes % (Manual) Monocytes % (Manual) Eosinophils % (Manual) Nucleated RBC % Seg Neutrophils # Seg Neutrophils # Man Lymphocytes # (Manual) Monocytes # (Manual) PT INR POC ABG pH POC ABG pCO2 POC ABG pO2 VBG pH Sodium Potassium Chloride Carbon Dioxide BUN Creatinine Glucose POC Glucose 109 H 106 H Hemoglobin A1c Lactic Acid Calcium Ionized Calcium Total Bilirubin AST ALT Alkaline Phosphatase C-Reactive Protein Total Protein Albumin Complement C3 Complement C4 Crossmatch 02/07/18 02/08/18 02/08/18 07:45 08:16 08:16 WBC 3.7 L RBC 2.49 L Hgb 7.0 L Hct 21.5 L MCH RDW Plt Count Lymph % (Auto) [place] % (Auto) Lymph # [place] # Seg Neutrophils % Seg Neuts % (Manual) Lymphocytes % (Manual) Monocytes % (Manual) Eosinophils % (Manual) Nucleated RBC % Seg Neutrophils # Seg Neutrophils # Man Lymphocytes # (Manual) Monocytes # (Manual) PT INR POC ABG pH POC ABG pCO2 POC ABG pO2 VBG pH Sodium Potassium Chloride Carbon Dioxide BUN 48 H 52 H Creatinine 2.1 H 2.0 H Glucose POC Glucose Hemoglobin A1c Lactic Acid Calcium 8.1 L 8.3 L Ionized Calcium Total Bilirubin AST ALT Alkaline Phosphatase C-Reactive Protein Total Protein Albumin Complement C3 Complement C4 Crossmatch 02/08/18 02/09/18 02/09/18 16:35 00:19 05:31 WBC 3.7 L RBC 2.38 L Hgb 6.8 L Hct 20.3 L MCH RDW Plt Count Lymph % (Auto) [place] % (Auto) Lymph # [place] # Seg Neutrophils % Seg Neuts % (Manual) Lymphocytes % (Manual) Monocytes % (Manual) Eosinophils % (Manual) Nucleated RBC % Seg Neutrophils # Seg Neutrophils # Man Lymphocytes # (Manual) Monocytes # (Manual) PT INR POC ABG pH POC ABG pCO2 POC ABG pO2 VBG pH Sodium Potassium Chloride Carbon Dioxide BUN Creatinine Glucose POC Glucose 121 H 171 H Hemoglobin A1c Lactic Acid Calcium Ionized Calcium Total Bilirubin AST ALT Alkaline Phosphatase C-Reactive Protein Total Protein Albumin Complement C3 Complement C4 Crossmatch 02/09/18 02/09/18 02/10/18 05:31 17:17 00:16 WBC RBC Hgb Hct MCH RDW Plt Count Lymph % (Auto) [place] % (Auto) Lymph # [place] # Seg Neutrophils % Seg Neuts % (Manual) Lymphocytes % (Manual) Monocytes % (Manual) Eosinophils % (Manual) Nucleated RBC % Seg Neutrophils # Seg Neutrophils # Man Lymphocytes # (Manual) Monocytes # (Manual) PT INR POC ABG pH POC ABG pCO2 POC ABG pO2 VBG pH Sodium 146 H Potassium Chloride Carbon Dioxide BUN 48 H Creatinine 1.7 H Glucose POC Glucose 121 H 162 H Hemoglobin A1c Lactic Acid Calcium 8.0 L Ionized Calcium Total Bilirubin AST ALT Alkaline Phosphatase C-Reactive Protein Total Protein Albumin Complement C3 Complement C4 Crossmatch 02/10/18 02/10/18 02/10/18 11:58 17:04 17:58 WBC RBC Hgb Hct MCH RDW Plt Count Lymph % (Auto) [place] % (Auto) Lymph # [place] # Seg Neutrophils % Seg Neuts % (Manual) Lymphocytes % (Manual) Monocytes % (Manual) Eosinophils % (Manual) Nucleated RBC % Seg Neutrophils # Seg Neutrophils # Man Lymphocytes # (Manual) Monocytes # (Manual) PT INR POC ABG pH POC ABG pCO2 POC ABG pO2 VBG pH Sodium Potassium Chloride Carbon Dioxide BUN Creatinine Glucose POC Glucose 151 H 131 H Hemoglobin A1c Lactic Acid Calcium Ionized Calcium Total Bilirubin AST ALT Alkaline Phosphatase C-Reactive Protein Total Protein Albumin Complement C3 Complement C4 Crossmatch See Detail 02/11/18 02/11/18 02/11/18 00:08 07:40 07:40 WBC 4.3 L RBC 2.84 L Hgb 7.9 L Hct 24.6 L MCH RDW Plt Count Lymph % (Auto) [place] % (Auto) Lymph # [place] # Seg Neutrophils % Seg Neuts % (Manual) Lymphocytes % (Manual) Monocytes % (Manual) Eosinophils % (Manual) Nucleated RBC % Seg Neutrophils # Seg Neutrophils # Man Lymphocytes # (Manual) Monocytes # (Manual) PT INR POC ABG pH POC ABG pCO2 POC ABG pO2 VBG pH Sodium 150 H Potassium Chloride 109.5 H Carbon Dioxide BUN 35 H Creatinine Glucose POC Glucose 113 H Hemoglobin A1c Lactic Acid Calcium Ionized Calcium Total Bilirubin AST ALT Alkaline Phosphatase C-Reactive Protein Total Protein Albumin Complement C3 Complement C4 Crossmatch 02/11/18 02/11/18 02/12/18 12:36 17:37 06:09 WBC RBC Hgb Hct MCH RDW Plt Count Lymph % (Auto) [place] % (Auto) Lymph # [place] # Seg Neutrophils % Seg Neuts % (Manual) Lymphocytes % (Manual) Monocytes % (Manual) Eosinophils % (Manual) Nucleated RBC % Seg Neutrophils # Seg Neutrophils # Man Lymphocytes # (Manual) Monocytes # (Manual) PT INR POC ABG pH POC ABG pCO2 POC ABG pO2 VBG pH Sodium Potassium Chloride Carbon Dioxide BUN 28 H Creatinine Glucose POC Glucose 138 H 205 H Hemoglobin A1c Lactic Acid Calcium 8.0 L Ionized Calcium Total Bilirubin AST ALT Alkaline Phosphatase C-Reactive Protein Total Protein Albumin Complement C3 Complement C4 Crossmatch 02/12/18 02/12/18 02/12/18 06:09 13:06 16:53 WBC 4.0 L RBC 2.92 L Hgb 8.2 L Hct 25.5 L MCH RDW Plt Count Lymph % (Auto) [place] % (Auto) Lymph # [place] # Seg Neutrophils % Seg Neuts % (Manual) 71.0 H Lymphocytes % (Manual) Monocytes % (Manual) Eosinophils % (Manual) 5.0 H Nucleated RBC % Seg Neutrophils # Seg Neutrophils # Man Lymphocytes # (Manual) 0.7 L Monocytes # (Manual) PT INR POC ABG pH POC ABG pCO2 POC ABG pO2 VBG pH Sodium Potassium Chloride Carbon Dioxide BUN Creatinine Glucose POC Glucose 132 H 146 H Hemoglobin A1c Lactic Acid Calcium Ionized Calcium Total Bilirubin AST ALT Alkaline Phosphatase C-Reactive Protein Total Protein Albumin Complement C3 Complement C4 Crossmatch 02/13/18 02/13/18 02/13/18 01:23 04:36 12:45 WBC RBC Hgb Hct MCH RDW Plt Count Lymph % (Auto) [place] % (Auto) Lymph # [place] # Seg Neutrophils % Seg Neuts % (Manual) Lymphocytes % (Manual) Monocytes % (Manual) Eosinophils % (Manual) Nucleated RBC % Seg Neutrophils # Seg Neutrophils # Man Lymphocytes # (Manual) Monocytes # (Manual) PT INR POC ABG pH POC ABG pCO2 POC ABG pO2 VBG pH Sodium Potassium 3.3 L Chloride Carbon Dioxide BUN 25 H Creatinine Glucose POC Glucose 108 H 116 H Hemoglobin A1c Lactic Acid Calcium 8.0 L Ionized Calcium Total Bilirubin AST ALT Alkaline Phosphatase C-Reactive Protein Total Protein Albumin Complement C3 Complement C4 Crossmatch 02/13/18 02/14/18 02/14/18 17:46 00:16 06:04 WBC RBC Hgb Hct MCH RDW Plt Count Lymph % (Auto) [place] % (Auto) Lymph # [place] # Seg Neutrophils % Seg Neuts % (Manual) Lymphocytes % (Manual) Monocytes % (Manual) Eosinophils % (Manual) Nucleated RBC % Seg Neutrophils # Seg Neutrophils # Man Lymphocytes # (Manual) Monocytes # (Manual) PT INR POC ABG pH POC ABG pCO2 POC ABG pO2 VBG pH Sodium Potassium 3.4 L Chloride Carbon Dioxide BUN 20 H Creatinine Glucose POC Glucose 114 H 120 H Hemoglobin A1c Lactic Acid Calcium 7.9 L Ionized Calcium Total Bilirubin AST ALT Alkaline Phosphatase C-Reactive Protein Total Protein Albumin Complement C3 Complement C4 Crossmatch 02/14/18 02/14/18 02/15/18 12:09 17:23 01:26 WBC RBC Hgb Hct MCH RDW Plt Count Lymph % (Auto) [place] % (Auto) Lymph # [place] # Seg Neutrophils % Seg Neuts % (Manual) Lymphocytes % (Manual) Monocytes % (Manual) Eosinophils % (Manual) Nucleated RBC % Seg Neutrophils # Seg Neutrophils # Man Lymphocytes # (Manual) Monocytes # (Manual) PT INR POC ABG pH POC ABG pCO2 POC ABG pO2 VBG pH Sodium Potassium Chloride Carbon Dioxide BUN Creatinine Glucose POC Glucose 118 H 133 H 122 H Hemoglobin A1c Lactic Acid Calcium Ionized Calcium Total Bilirubin AST ALT Alkaline Phosphatase C-Reactive Protein Total Protein Albumin Complement C3 Complement C4 Crossmatch 02/15/18 02/15/18 02/17/18 11:34 18:14 11:47 WBC RBC Hgb Hct MCH RDW Plt Count Lymph % (Auto) [place] % (Auto) Lymph # [place] # Seg Neutrophils % Seg Neuts % (Manual) Lymphocytes % (Manual) Monocytes % (Manual) Eosinophils % (Manual) Nucleated RBC % Seg Neutrophils # Seg Neutrophils # Man Lymphocytes # (Manual) Monocytes # (Manual) PT INR POC ABG pH POC ABG pCO2 POC ABG pO2 VBG pH Sodium Potassium Chloride Carbon Dioxide BUN Creatinine Glucose POC Glucose 168 H 137 H 131 H Hemoglobin A1c Lactic Acid Calcium Ionized Calcium Total Bilirubin AST ALT Alkaline Phosphatase C-Reactive Protein Total Protein Albumin Complement C3 Complement C4 Crossmatch Allied health notes reviewed: nursing
[2018-02-19] MEDS: BROVANA NEBU IH SCH ×2 (08:29→20:23)
[2018-02-19] MEDS: PULMICORT IH SCH ×2 (08:29→20:23)
[2018-02-19] MEDS: PEPCID PO SCH (09:50)
--- NOTE | 2018-02-19 10:42 | Progress Note ---
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 25' Subjective Date of service: 02/19/18 Principal diagnosis: Acute hypoxic respiratory failure, severe sepsis with shock , encephalopathy Interval history: Patient seen today for: Acute hypoxic respiratory failure, severe sepsis with shock, encephalopathy Seen and examined at bedside; 24-hour events reviewed; nursing and respiratory care staff consulted; no adverse overnight events reported to me; alert; denies acute chest pains or increased SOB; no new issues otherwise; awaiting placement Objective Vital Signs - 12hr 02/18/18 02/19/18 02/19/18 22:47 00:35 05:44 Temperature 100.1 F H 98.6 F Pulse Rate 96 H 88 Pulse Rate [ Posterior Bilateral Throughout] Respiratory 20 20 20 Rate Respiratory Rate [Posterior Bilateral Throughout] Blood Pressure 125/60 125/69 Blood Pressure [Left] O2 Sat by Pulse 92 95 Oximetry 02/19/18 02/19/18 02/19/18 08:20 08:32 08:33 Temperature Pulse Rate Pulse Rate [ 92 H 93 H Posterior Bilateral Throughout] Respiratory Rate Respiratory 18 18 Rate [Posterior Bilateral Throughout] Blood Pressure Blood Pressure [Left] O2 Sat by Pulse 95 Oximetry 02/19/18 09:12 Temperature 98.2 F Pulse Rate 91 H Pulse Rate [ Posterior Bilateral Throughout] Respiratory 24 Rate Respiratory Rate [Posterior Bilateral Throughout] Blood Pressure Blood Pressure 127/72 [Left] O2 Sat by Pulse 94 Oximetry Constitutional: no acute distress Eyes: non-icteric ENT: oropharynx moist Neck: supple, no lymphadenopathy, no JVD Effort: mildly labored Ascultation: Bilateral: diminished breath sounds, rales Percussion: Bilateral: not dull Cardiovascular: regular rate and rhythm, other (no rubs or murmurs) Gastrointestinal: normoactive bowel sounds, soft, non-tender, non-distended, other (no [place] HSM) Integumentary: normal Extremities: no cyanosis, no edema, pink and warm, pulses normal, other ( digital gangrene to all four extremities) Neurologic: non-focal exam (grossly), pupils equal and round, CN II-XII normal, motor strength normal and Psychiatric: other (calm) CBC and BMP: 02/12/18 06:09 02/14/18 06:04 ABG, PT/INR, D-dimer: ABG POC ABG pH 7.441 (7.35-7.45) 02/04/18 15:05 POC ABG pCO2 43.6 (35-45) 02/04/18 15:05 POC ABG pO2 109 (80-105) H 02/04/18 15:05 POC ABG HCO3 29.7 02/04/18 15:05 POC ABG Total CO2 31 02/04/18 15:05 POC ABG O2 Sat 98 02/04/18 15:05 PT/INR, D-dimer PT 17.5 Sec. (12.2-14.9) H 01/20/18 07:00 INR 1.35 (0.87-1.13) H 01/20/18 07:00 Abnormal lab findings: Abnormal Labs 01/17/18 01/17/18 01/17/18 15:25 16:15 16:48 WBC RBC Hgb Hct MCH RDW Plt Count Lymph % (Auto) [place] % (Auto) Lymph # [place] # Seg Neutrophils % Seg Neuts % (Manual) Lymphocytes % (Manual) Monocytes % (Manual) Eosinophils % (Manual) Nucleated RBC % Seg Neutrophils # Seg Neutrophils # Man Lymphocytes # (Manual) Monocytes # (Manual) PT INR POC ABG pH 7.099 L POC ABG pCO2 58.9 H POC ABG pO2 149 H VBG pH Sodium Potassium Chloride Carbon Dioxide BUN Creatinine Glucose POC Glucose < 40 L 121 H Hemoglobin A1c Lactic Acid Calcium Ionized Calcium Total Bilirubin AST ALT Alkaline Phosphatase C-Reactive Protein Total Protein Albumin Complement C3 Complement C4 Crossmatch 01/17/18 01/17/18 01/17/18 16:54 16:54 16:54 WBC RBC Hgb Hct MCH RDW Plt Count Lymph % (Auto) [place] % (Auto) Lymph # [place] # Seg Neutrophils % Seg Neuts % (Manual) 72.0 H Lymphocytes % (Manual) 3.0 L Monocytes % (Manual) Eosinophils % (Manual) Nucleated RBC % Seg Neutrophils # Seg Neutrophils # Man Lymphocytes # (Manual) 0.2 L Monocytes # (Manual) PT 18.5 H INR 1.45 H POC ABG pH POC ABG pCO2 POC ABG pO2 VBG pH Sodium 136 L Potassium Chloride 97.8 L Carbon Dioxide 16 L BUN 43 H Creatinine 3.3 H Glucose 121 H POC Glucose Hemoglobin A1c Lactic Acid Calcium 6.7 L Ionized Calcium Total Bilirubin AST ALT Alkaline Phosphatase C-Reactive Protein Total Protein 4.4 L Albumin 2.3 L Complement C3 Complement C4 Crossmatch 01/17/18 01/17/18 01/17/18 16:54 16:54 17:11 WBC RBC Hgb Hct MCH RDW Plt Count Lymph % (Auto) [place] % (Auto) Lymph # [place] # Seg Neutrophils % Seg Neuts % (Manual) Lymphocytes % (Manual) Monocytes % (Manual) Eosinophils % (Manual) Nucleated RBC % Seg Neutrophils # Seg Neutrophils # Man Lymphocytes # (Manual) Monocytes # (Manual) PT INR POC ABG pH POC ABG pCO2 POC ABG pO2 VBG pH 7.273 L Sodium Potassium Chloride Carbon Dioxide BUN Creatinine Glucose POC Glucose Hemoglobin A1c Lactic Acid 4.70 H* 4.30 H* Calcium Ionized Calcium Total Bilirubin AST ALT Alkaline Phosphatase C-Reactive Protein Total Protein Albumin Complement C3 Complement C4 Crossmatch 01/17/18 01/17/18 01/17/18 18:02 18:15 19:21 WBC RBC Hgb Hct MCH RDW Plt Count Lymph % (Auto) [place] % (Auto) Lymph # [place] # Seg Neutrophils % Seg Neuts % (Manual) Lymphocytes % (Manual) Monocytes % (Manual) Eosinophils % (Manual) Nucleated RBC % Seg Neutrophils # Seg Neutrophils # Man Lymphocytes # (Manual) Monocytes # (Manual) PT INR POC ABG pH 7.177 L POC ABG pCO2 POC ABG pO2 VBG pH Sodium Potassium Chloride Carbon Dioxide BUN Creatinine Glucose POC Glucose < 40 L Hemoglobin A1c Lactic Acid 3.00 H* Calcium Ionized Calcium Total Bilirubin AST ALT Alkaline Phosphatase C-Reactive Protein Total Protein Albumin Complement C3 Complement C4 Crossmatch 01/17/18 01/17/18 01/17/18 22:36 22:36 23:16 WBC RBC Hgb Hct MCH RDW Plt Count Lymph % (Auto) [place] % (Auto) Lymph # [place] # Seg Neutrophils % Seg Neuts % (Manual) Lymphocytes % (Manual) Monocytes % (Manual) Eosinophils % (Manual) Nucleated RBC % Seg Neutrophils # Seg Neutrophils # Man Lymphocytes # (Manual) Monocytes # (Manual) PT INR POC ABG pH 7.112 L POC ABG pCO2 50.1 H POC ABG pO2 50 L VBG pH Sodium Potassium Chloride Carbon Dioxide BUN Creatinine Glucose POC Glucose Hemoglobin A1c 9.0 H Lactic Acid 5.50 H* Calcium Ionized Calcium Total Bilirubin AST ALT Alkaline Phosphatase C-Reactive Protein Total Protein Albumin Complement C3 Complement C4 Crossmatch 01/18/18 01/18/18 01/18/18 01:26 03:21 03:21 WBC RBC Hgb Hct MCH RDW Plt Count Lymph % (Auto) [place] % (Auto) Lymph # [place] # Seg Neutrophils % Seg Neuts % (Manual) 27.0 L Lymphocytes % (Manual) 3.0 L Monocytes % (Manual) 14.0 H Eosinophils % (Manual) Nucleated RBC % Seg Neutrophils # Seg Neutrophils # Man Lymphocytes # (Manual) 0.3 L Monocytes # (Manual) 1.4 H PT INR POC ABG pH POC ABG pCO2 POC ABG pO2 VBG pH Sodium Potassium Chloride Carbon Dioxide BUN Creatinine Glucose POC Glucose 107 H Hemoglobin A1c Lactic Acid 8.00 H* Calcium Ionized Calcium Total Bilirubin AST ALT Alkaline Phosphatase C-Reactive Protein Total Protein Albumin Complement C3 Complement C4 Crossmatch 01/18/18 01/18/18 01/18/18 03:21 04:40 05:07 WBC RBC Hgb Hct MCH RDW Plt Count Lymph % (Auto) [place] % (Auto) Lymph # [place] # Seg Neutrophils % Seg Neuts % (Manual) Lymphocytes % (Manual) Monocytes % (Manual) Eosinophils % (Manual) Nucleated RBC % Seg Neutrophils # Seg Neutrophils # Man Lymphocytes # (Manual) Monocytes # (Manual) PT INR POC ABG pH 7.093 L POC ABG pCO2 31.5 L POC ABG pO2 77 L VBG pH Sodium Potassium Chloride 96.9 L Carbon Dioxide 14 L BUN 47 H Creatinine 3.4 H Glucose POC Glucose Hemoglobin A1c Lactic Acid 11.10 H* Calcium 6.4 L Ionized Calcium Total Bilirubin AST 47 H ALT Alkaline Phosphatase C-Reactive Protein Total Protein 4.3 L Albumin 2.4 L Complement C3 Complement C4 Crossmatch 01/18/18 01/18/18 01/18/18 06:29 07:06 11:44 WBC RBC Hgb Hct MCH RDW Plt Count Lymph % (Auto) [place] % (Auto) Lymph # [place] # Seg Neutrophils % Seg Neuts % (Manual) Lymphocytes % (Manual) Monocytes % (Manual) Eosinophils % (Manual) Nucleated RBC % Seg Neutrophils # Seg Neutrophils # Man Lymphocytes # (Manual) Monocytes # (Manual) PT INR POC ABG pH POC ABG pCO2 POC ABG pO2 VBG pH Sodium Potassium Chloride Carbon Dioxide BUN Creatinine Glucose POC Glucose 47 L 149 H < 40 L Hemoglobin A1c Lactic Acid Calcium Ionized Calcium Total Bilirubin AST ALT Alkaline Phosphatase C-Reactive Protein Total Protein Albumin Complement C3 Complement C4 Crossmatch 01/18/18 01/18/18 01/18/18 11:46 14:15 18:01 WBC RBC Hgb Hct MCH RDW Plt Count Lymph % (Auto) [place] % (Auto) Lymph # [place] # Seg Neutrophils % Seg Neuts % (Manual) Lymphocytes % (Manual) Monocytes % (Manual) Eosinophils % (Manual) Nucleated RBC % Seg Neutrophils # Seg Neutrophils # Man Lymphocytes # (Manual) Monocytes # (Manual) PT INR POC ABG pH POC ABG pCO2 POC ABG pO2 VBG pH Sodium Potassium Chloride Carbon Dioxide BUN Creatinine Glucose POC Glucose 116 H < 40 L Hemoglobin A1c Lactic Acid 10.00 H* Calcium Ionized Calcium Total Bilirubin AST ALT Alkaline Phosphatase C-Reactive Protein Total Protein Albumin Complement C3 Complement C4 Crossmatch 01/18/18 01/18/18 01/18/18 18:02 23:25 23:27 WBC RBC Hgb Hct MCH RDW Plt Count Lymph % (Auto) [place] % (Auto) Lymph # [place] # Seg Neutrophils % Seg Neuts % (Manual) Lymphocytes % (Manual) Monocytes % (Manual) Eosinophils % (Manual) Nucleated RBC % Seg Neutrophils # Seg Neutrophils # Man Lymphocytes # (Manual) Monocytes # (Manual) PT INR POC ABG pH POC ABG pCO2 POC ABG pO2 VBG pH Sodium Potassium Chloride Carbon Dioxide BUN Creatinine Glucose POC Glucose 136 H < 40 L < 40 L Hemoglobin A1c Lactic Acid Calcium Ionized Calcium Total Bilirubin AST ALT Alkaline Phosphatase C-Reactive Protein Total Protein Albumin Complement C3 Complement C4 Crossmatch 01/19/18 01/19/18 01/19/18 04:02 06:50 06:50 WBC 18.5 H RBC Hgb Hct MCH RDW Plt Count 136 L Lymph % (Auto) [place] % (Auto) Lymph # [place] # Seg Neutrophils % Seg Neuts % (Manual) 86.0 H Lymphocytes % (Manual) 4.0 L Monocytes % (Manual) Eosinophils % (Manual) Nucleated RBC % Seg Neutrophils # Seg Neutrophils # Man 15.9 H Lymphocytes # (Manual) 0.7 L Monocytes # (Manual) 1.1 H PT 21.3 H INR 1.73 H POC ABG pH POC ABG pCO2 28.3 L POC ABG pO2 57 L VBG pH Sodium Potassium Chloride Carbon Dioxide BUN Creatinine Glucose POC Glucose Hemoglobin A1c Lactic Acid Calcium Ionized Calcium Total Bilirubin AST ALT Alkaline Phosphatase C-Reactive Protein Total Protein Albumin Complement C3 Complement C4 Crossmatch 01/19/18 01/19/18 01/19/18 06:50 08:45 11:17 WBC RBC Hgb Hct MCH RDW Plt Count Lymph % (Auto) [place] % (Auto) Lymph # [place] # Seg Neutrophils % Seg Neuts % (Manual) Lymphocytes % (Manual) Monocytes % (Manual) Eosinophils % (Manual) Nucleated RBC % Seg Neutrophils # Seg Neutrophils # Man Lymphocytes # (Manual) Monocytes # (Manual) PT INR POC ABG pH POC ABG pCO2 POC ABG pO2 VBG pH Sodium 135 L Potassium Chloride 92.8 L Carbon Dioxide 19 L BUN 31 H Creatinine 2.6 H Glucose POC Glucose 110 H Hemoglobin A1c Lactic Acid 7.90 H* Calcium 7.1 L Ionized Calcium Total Bilirubin 1.60 H AST 2526 H ALT 1187 H Alkaline Phosphatase 133 H C-Reactive Protein Total Protein 4.8 L Albumin 2.0 L Complement C3 Complement C4 Crossmatch 01/19/18 01/19/18 01/19/18 11:31 22:12 23:34 WBC RBC Hgb Hct MCH RDW Plt Count Lymph % (Auto) [place] % (Auto) Lymph # [place] # Seg Neutrophils % Seg Neuts % (Manual) Lymphocytes % (Manual) Monocytes % (Manual) Eosinophils % (Manual) Nucleated RBC % Seg Neutrophils # Seg Neutrophils # Man Lymphocytes # (Manual) Monocytes # (Manual) PT INR POC ABG pH POC ABG pCO2 31.6 L POC ABG pO2 59 L VBG pH Sodium Potassium Chloride Carbon Dioxide BUN Creatinine Glucose POC Glucose 131 H 53 L Hemoglobin A1c Lactic Acid Calcium Ionized Calcium Total Bilirubin AST ALT Alkaline Phosphatase C-Reactive Protein Total Protein Albumin Complement C3 Complement C4 Crossmatch 01/20/18 01/20/18 01/20/18 05:18 05:18 05:19 WBC 19.7 H RBC Hgb Hct MCH 27 L RDW Plt Count 84 L Lymph % (Auto) [place] % (Auto) Lymph # [place] # Seg Neutrophils % Seg Neuts % (Manual) 84.0 H Lymphocytes % (Manual) 2.0 L Monocytes % (Manual) 8.0 H Eosinophils % (Manual) Nucleated RBC % Seg Neutrophils # Seg Neutrophils # Man 16.5 H Lymphocytes # (Manual) 0.4 L Monocytes # (Manual) 1.6 H PT INR POC ABG pH POC ABG pCO2 POC ABG pO2 VBG pH Sodium 136 L Potassium Chloride 96.9 L Carbon Dioxide 17 L BUN 65 H Creatinine 4.1 H D Glucose 104 H POC Glucose 125 H Hemoglobin A1c Lactic Acid Calcium 7.1 L Ionized Calcium Total Bilirubin 1.60 H AST 1702 H ALT 1141 H Alkaline Phosphatase 172 H C-Reactive Protein Total Protein 5.0 L Albumin 1.7 L Complement C3 Complement C4 Crossmatch 01/20/18 01/20/18 01/20/18 07:00 11:48 13:54 WBC RBC Hgb Hct MCH RDW Plt Count Lymph % (Auto) [place] % (Auto) Lymph # [place] # Seg Neutrophils % Seg Neuts % (Manual) Lymphocytes % (Manual) Monocytes % (Manual) Eosinophils % (Manual) Nucleated RBC % Seg Neutrophils # Seg Neutrophils # Man Lymphocytes # (Manual) Monocytes # (Manual) PT 17.5 H INR 1.35 H POC ABG pH POC ABG pCO2 POC ABG pO2 VBG pH Sodium Potassium Chloride Carbon Dioxide BUN Creatinine Glucose POC Glucose 109 H Hemoglobin A1c Lactic Acid Calcium Ionized Calcium Total Bilirubin AST ALT Alkaline Phosphatase C-Reactive Protein 37.50 H Total Protein Albumin Complement C3 Complement C4 Crossmatch 01/20/18 01/20/18 01/20/18 17:28 17:51 20:50 WBC RBC Hgb Hct MCH RDW Plt Count Lymph % (Auto) [place] % (Auto) Lymph # [place] # Seg Neutrophils % Seg Neuts % (Manual) Lymphocytes % (Manual) Monocytes % (Manual) Eosinophils % (Manual) Nucleated RBC % Seg Neutrophils # Seg Neutrophils # Man Lymphocytes # (Manual) Monocytes # (Manual) PT INR POC ABG pH POC ABG pCO2 POC ABG pO2 VBG pH Sodium Potassium Chloride Carbon Dioxide BUN Creatinine Glucose POC Glucose 140 H Hemoglobin A1c Lactic Acid 2.70 H* 2.30 H* Calcium Ionized Calcium Total Bilirubin AST ALT Alkaline Phosphatase C-Reactive Protein Total Protein Albumin Complement C3 Complement C4 Crossmatch 01/20/18 01/20/18 01/20/18 23:55 Unknown Unknown WBC RBC Hgb Hct MCH RDW Plt Count Lymph % (Auto) [place] % (Auto) Lymph # [place] # Seg Neutrophils % Seg Neuts % (Manual) Lymphocytes % (Manual) Monocytes % (Manual) Eosinophils % (Manual) Nucleated RBC % Seg Neutrophils # Seg Neutrophils # Man Lymphocytes # (Manual) Monocytes # (Manual) PT INR POC ABG pH POC ABG pCO2 POC ABG pO2 VBG pH Sodium Potassium Chloride Carbon Dioxide BUN Creatinine Glucose POC Glucose 149 H Hemoglobin A1c Lactic Acid 2.50 H* Calcium Ionized Calcium Total Bilirubin AST ALT Alkaline Phosphatase C-Reactive Protein Total Protein Albumin Complement C3 47 L Complement C4 Crossmatch 01/20/18 01/21/18 01/21/18 Unknown 00:12 04:27 WBC RBC Hgb Hct MCH RDW Plt Count Lymph % (Auto) [place] % (Auto) Lymph # [place] # Seg Neutrophils % Seg Neuts % (Manual) Lymphocytes % (Manual) Monocytes % (Manual) Eosinophils % (Manual) Nucleated RBC % Seg Neutrophils # Seg Neutrophils # Man Lymphocytes # (Manual) Monocytes # (Manual) PT INR POC ABG pH POC ABG pCO2 33.8 L POC ABG pO2 72 L VBG pH Sodium Potassium Chloride Carbon Dioxide BUN Creatinine Glucose POC Glucose 134 H Hemoglobin A1c Lactic Acid Calcium Ionized Calcium Total Bilirubin AST ALT Alkaline Phosphatase C-Reactive Protein Total Protein Albumin Complement C3 Complement C4 9 L Crossmatch 01/21/18 01/21/18 01/21/18 05:00 05:00 05:00 WBC 21.7 H RBC Hgb Hct MCH 27 L RDW Plt Count 67 L Lymph % (Auto) [place] % (Auto) Lymph # [place] # Seg Neutrophils % Seg Neuts % (Manual) 71.0 H Lymphocytes % (Manual) 9.0 L Monocytes % (Manual) Eosinophils % (Manual) Nucleated RBC % 4.0 H Seg Neutrophils # Seg Neutrophils # Man 15.4 H Lymphocytes # (Manual) Monocytes # (Manual) PT INR POC ABG pH POC ABG pCO2 POC ABG pO2 VBG pH Sodium Potassium Chloride Carbon Dioxide 21 L BUN 71 H Creatinine 4.1 H Glucose 149 H POC Glucose Hemoglobin A1c Lactic Acid 2.10 H* Calcium 7.5 L Ionized Calcium Total Bilirubin AST 494 H ALT 780 H Alkaline Phosphatase 151 H C-Reactive Protein Total Protein 4.9 L Albumin 1.9 L Complement C3 Complement C4 Crossmatch 01/21/18 01/21/18 01/21/18 05:18 12:20 18:07 WBC RBC Hgb Hct MCH RDW Plt Count Lymph % (Auto) [place] % (Auto) Lymph # [place] # Seg Neutrophils % Seg Neuts % (Manual) Lymphocytes % (Manual) Monocytes % (Manual) Eosinophils % (Manual) Nucleated RBC % Seg Neutrophils # Seg Neutrophils # Man Lymphocytes # (Manual) Monocytes # (Manual) PT INR POC ABG pH POC ABG pCO2 POC ABG pO2 VBG pH Sodium Potassium Chloride Carbon Dioxide BUN Creatinine Glucose POC Glucose 132 H 158 H 143 H Hemoglobin A1c Lactic Acid Calcium Ionized Calcium Total Bilirubin AST ALT Alkaline Phosphatase C-Reactive Protein Total Protein Albumin Complement C3 Complement C4 Crossmatch 01/21/18 01/22/18 01/22/18 23:40 03:48 04:10 WBC 24.9 H RBC Hgb Hct MCH 27 L RDW Plt Count 80 L Lymph % (Auto) [place] % (Auto) Lymph # [place] # Seg Neutrophils % Seg Neuts % (Manual) Lymphocytes % (Manual) Monocytes % (Manual) Eosinophils % (Manual) Nucleated RBC % Seg Neutrophils # Seg Neutrophils # Man Lymphocytes # (Manual) Monocytes # (Manual) PT INR POC ABG pH POC ABG pCO2 POC ABG pO2 65 L VBG pH Sodium Potassium Chloride Carbon Dioxide BUN Creatinine Glucose POC Glucose 136 H Hemoglobin A1c Lactic Acid Calcium Ionized Calcium Total Bilirubin AST ALT Alkaline Phosphatase C-Reactive Protein Total Protein Albumin Complement C3 Complement C4 Crossmatch 01/22/18 01/22/18 01/22/18 04:10 05:56 11:30 WBC RBC Hgb Hct MCH RDW Plt Count Lymph % (Auto) [place] % (Auto) Lymph # [place] # Seg Neutrophils % Seg Neuts % (Manual) Lymphocytes % (Manual) Monocytes % (Manual) Eosinophils % (Manual) Nucleated RBC % Seg Neutrophils # Seg Neutrophils # Man Lymphocytes # (Manual) Monocytes # (Manual) PT INR POC ABG pH POC ABG pCO2 POC ABG pO2 VBG pH Sodium Potassium Chloride 97.7 L Carbon Dioxide BUN 72 H Creatinine 3.6 H Glucose 145 H POC Glucose 139 H 156 H Hemoglobin A1c Lactic Acid Calcium 7.3 L Ionized Calcium Total Bilirubin AST 146 H ALT 547 H Alkaline Phosphatase C-Reactive Protein Total Protein 5.2 L Albumin 2.3 L Complement C3 Complement C4 Crossmatch 01/22/18 01/23/18 01/23/18 17:41 00:00 04:39 WBC RBC Hgb Hct MCH RDW Plt Count Lymph % (Auto) [place] % (Auto) Lymph # [place] # Seg Neutrophils % Seg Neuts % (Manual) Lymphocytes % (Manual) Monocytes % (Manual) Eosinophils % (Manual) Nucleated RBC % Seg Neutrophils # Seg Neutrophils # Man Lymphocytes # (Manual) Monocytes # (Manual) PT INR POC ABG pH POC ABG pCO2 31.9 L POC ABG pO2 62 L VBG pH Sodium Potassium Chloride Carbon Dioxide BUN Creatinine Glucose POC Glucose 185 H 150 H Hemoglobin A1c Lactic Acid Calcium Ionized Calcium Total Bilirubin AST ALT Alkaline Phosphatase C-Reactive Protein Total Protein Albumin Complement C3 Complement C4 Crossmatch 01/23/18 01/23/18 01/23/18 05:24 11:38 14:20 WBC RBC Hgb Hct MCH RDW Plt Count Lymph % (Auto) [place] % (Auto) Lymph # [place] # Seg Neutrophils % Seg Neuts % (Manual) Lymphocytes % (Manual) Monocytes % (Manual) Eosinophils % (Manual) Nucleated RBC % Seg Neutrophils # Seg Neutrophils # Man Lymphocytes # (Manual) Monocytes # (Manual) PT INR POC ABG pH POC ABG pCO2 31.4 L POC ABG pO2 55 L VBG pH Sodium Potassium Chloride Carbon Dioxide BUN Creatinine Glucose POC Glucose 215 H 182 H Hemoglobin A1c Lactic Acid Calcium Ionized Calcium Total Bilirubin AST ALT Alkaline Phosphatase C-Reactive Protein Total Protein Albumin Complement C3 Complement C4 Crossmatch 01/23/18 01/24/18 01/24/18 17:26 00:10 03:40 WBC 34.5 H RBC Hgb Hct MCH 27 L RDW Plt Count 130 L Lymph % (Auto) [place] % (Auto) Lymph # [place] # Seg Neutrophils % Seg Neuts % (Manual) Lymphocytes % (Manual) Monocytes % (Manual) Eosinophils % (Manual) Nucleated RBC % Seg Neutrophils # Seg Neutrophils # Man Lymphocytes # (Manual) Monocytes # (Manual) PT INR POC ABG pH POC ABG pCO2 POC ABG pO2 VBG pH Sodium Potassium Chloride Carbon Dioxide BUN Creatinine Glucose POC Glucose 252 H 225 H Hemoglobin A1c Lactic Acid Calcium Ionized Calcium Total Bilirubin AST ALT Alkaline Phosphatase C-Reactive Protein Total Protein Albumin Complement C3 Complement C4 Crossmatch 01/24/18 01/24/18 01/24/18 03:40 06:06 11:36 WBC RBC Hgb Hct MCH RDW Plt Count Lymph % (Auto) [place] % (Auto) Lymph # [place] # Seg Neutrophils % Seg Neuts % (Manual) Lymphocytes % (Manual) Monocytes % (Manual) Eosinophils % (Manual) Nucleated RBC % Seg Neutrophils # Seg Neutrophils # Man Lymphocytes # (Manual) Monocytes # (Manual) PT INR POC ABG pH POC ABG pCO2 POC ABG pO2 VBG pH Sodium Potassium 5.7 H D Chloride 95.6 L Carbon Dioxide 20 L BUN 96 H Creatinine 4.2 H Glucose 166 H POC Glucose 162 H 160 H Hemoglobin A1c Lactic Acid Calcium 7.3 L Ionized Calcium Total Bilirubin AST 52 H ALT 235 H Alkaline Phosphatase C-Reactive Protein Total Protein 5.1 L Albumin 2.5 L Complement C3 Complement C4 Crossmatch 01/24/18 01/24/18 01/25/18 15:08 17:32 00:04 WBC RBC Hgb Hct MCH RDW Plt Count Lymph % (Auto) [place] % (Auto) Lymph # [place] # Seg Neutrophils % Seg Neuts % (Manual) Lymphocytes % (Manual) Monocytes % (Manual) Eosinophils % (Manual) Nucleated RBC % Seg Neutrophils # Seg Neutrophils # Man Lymphocytes # (Manual) Monocytes # (Manual) PT INR POC ABG pH POC ABG pCO2 POC ABG pO2 VBG pH Sodium Potassium Chloride Carbon Dioxide BUN Creatinine Glucose POC Glucose 160 H 169 H Hemoglobin A1c Lactic Acid Calcium Ionized Calcium Total Bilirubin AST ALT Alkaline Phosphatase C-Reactive Protein 3.30 H Total Protein Albumin Complement C3 Complement C4 Crossmatch 01/25/18 01/25/18 01/25/18 04:34 05:25 11:46 WBC RBC Hgb Hct MCH RDW Plt Count Lymph % (Auto) [place] % (Auto) Lymph # [place] # Seg Neutrophils % Seg Neuts % (Manual) Lymphocytes % (Manual) Monocytes % (Manual) Eosinophils % (Manual) Nucleated RBC % Seg Neutrophils # Seg Neutrophils # Man Lymphocytes # (Manual) Monocytes # (Manual) PT INR POC ABG pH 7.342 L POC ABG pCO2 48.7 H POC ABG pO2 VBG pH Sodium Potassium Chloride Carbon Dioxide BUN Creatinine Glucose POC Glucose 133 H 121 H Hemoglobin A1c Lactic Acid Calcium Ionized Calcium Total Bilirubin AST ALT Alkaline Phosphatase C-Reactive Protein Total Protein Albumin Complement C3 Complement C4 Crossmatch 01/25/18 01/25/18 01/26/18 17:42 23:50 04:13 WBC RBC Hgb Hct MCH RDW Plt Count Lymph % (Auto) [place] % (Auto) Lymph # [place] # Seg Neutrophils % Seg Neuts % (Manual) Lymphocytes % (Manual) Monocytes % (Manual) Eosinophils % (Manual) Nucleated RBC % Seg Neutrophils # Seg Neutrophils # Man Lymphocytes # (Manual) Monocytes # (Manual) PT INR POC ABG pH POC ABG pCO2 POC ABG pO2 70 L VBG pH Sodium Potassium Chloride Carbon Dioxide BUN Creatinine Glucose POC Glucose 150 H 149 H Hemoglobin A1c Lactic Acid Calcium Ionized Calcium Total Bilirubin AST ALT Alkaline Phosphatase C-Reactive Protein Total Protein Albumin Complement C3 Complement C4 Crossmatch 01/26/18 01/26/18 01/26/18 05:25 06:20 06:20 WBC 21.0 H RBC Hgb Hct MCH RDW Plt Count Lymph % (Auto) [place] % (Auto) Lymph # [place] # Seg Neutrophils % Seg Neuts % (Manual) 95.0 H Lymphocytes % (Manual) 1.0 L Monocytes % (Manual) Eosinophils % (Manual) Nucleated RBC % Seg Neutrophils # Seg Neutrophils # Man 20.0 H Lymphocytes # (Manual) 0.2 L Monocytes # (Manual) PT INR POC ABG pH POC ABG pCO2 POC ABG pO2 VBG pH Sodium Potassium 5.9 H Chloride 95.7 L Carbon Dioxide BUN 102 H Creatinine 4.6 H Glucose POC Glucose 107 H Hemoglobin A1c Lactic Acid Calcium 6.6 L Ionized Calcium Total Bilirubin AST ALT Alkaline Phosphatase C-Reactive Protein Total Protein Albumin Complement C3 Complement C4 Crossmatch 01/26/18 01/26/18 01/27/18 12:19 18:09 00:17 WBC RBC Hgb Hct MCH RDW Plt Count Lymph % (Auto) [place] % (Auto) Lymph # [place] # Seg Neutrophils % Seg Neuts % (Manual) Lymphocytes % (Manual) Monocytes % (Manual) Eosinophils % (Manual) Nucleated RBC % Seg Neutrophils # Seg Neutrophils # Man Lymphocytes # (Manual) Monocytes # (Manual) PT INR POC ABG pH POC ABG pCO2 POC ABG pO2 VBG pH Sodium Potassium Chloride Carbon Dioxide BUN Creatinine Glucose POC Glucose 151 H 110 H 159 H Hemoglobin A1c Lactic Acid Calcium Ionized Calcium Total Bilirubin AST ALT Alkaline Phosphatase C-Reactive Protein Total Protein Albumin Complement C3 Complement C4 Crossmatch 01/27/18 01/27/18 01/27/18 05:20 05:20 05:43 WBC 23.3 H RBC Hgb Hct MCH 27 L RDW Plt Count Lymph % (Auto) [place] % (Auto) Lymph # [place] # Seg Neutrophils % Seg Neuts % (Manual) 97.0 H Lymphocytes % (Manual) 0 L Monocytes % (Manual) Eosinophils % (Manual) Nucleated RBC % Seg Neutrophils # Seg Neutrophils # Man 22.6 H Lymphocytes # (Manual) 0.0 L Monocytes # (Manual) PT INR POC ABG pH POC ABG pCO2 POC ABG pO2 VBG pH Sodium Potassium 5.7 H Chloride 93.9 L Carbon Dioxide 21 L BUN 121 H Creatinine 5.2 H Glucose 131 H POC Glucose 121 H Hemoglobin A1c Lactic Acid Calcium 6.1 L Ionized Calcium Total Bilirubin AST ALT Alkaline Phosphatase C-Reactive Protein Total Protein Albumin Complement C3 Complement C4 Crossmatch 01/27/18 01/27/18 01/28/18 12:16 17:32 00:05 WBC RBC Hgb Hct MCH RDW Plt Count Lymph % (Auto) [place] % (Auto) Lymph # [place] # Seg Neutrophils % Seg Neuts % (Manual) Lymphocytes % (Manual) Monocytes % (Manual) Eosinophils % (Manual) Nucleated RBC % Seg Neutrophils # Seg Neutrophils # Man Lymphocytes # (Manual) Monocytes # (Manual) PT INR POC ABG pH POC ABG pCO2 POC ABG pO2 VBG pH Sodium Potassium Chloride Carbon Dioxide BUN Creatinine Glucose POC Glucose 161 H 146 H 128 H Hemoglobin A1c Lactic Acid Calcium Ionized Calcium Total Bilirubin AST ALT Alkaline Phosphatase C-Reactive Protein Total Protein Albumin Complement C3 Complement C4 Crossmatch 01/28/18 01/28/18 01/28/18 04:24 05:43 06:30 WBC 24.8 H RBC Hgb Hct MCH RDW Plt Count Lymph % (Auto) [place] % (Auto) Lymph # [place] # Seg Neutrophils % Seg Neuts % (Manual) 91.0 H Lymphocytes % (Manual) 4.0 L Monocytes % (Manual) Eosinophils % (Manual) Nucleated RBC % Seg Neutrophils # Seg Neutrophils # Man 22.6 H Lymphocytes # (Manual) 1.0 L Monocytes # (Manual) 1.0 H PT INR POC ABG pH POC ABG pCO2 POC ABG pO2 77 L VBG pH Sodium Potassium Chloride Carbon Dioxide BUN Creatinine Glucose POC Glucose 137 H Hemoglobin A1c Lactic Acid Calcium Ionized Calcium Total Bilirubin AST ALT Alkaline Phosphatase C-Reactive Protein Total Protein Albumin Complement C3 Complement C4 Crossmatch 01/28/18 01/28/18 01/28/18 06:30 11:30 18:08 WBC RBC Hgb Hct MCH RDW Plt Count Lymph % (Auto) [place] % (Auto) Lymph # [place] # Seg Neutrophils % Seg Neuts % (Manual) Lymphocytes % (Manual) Monocytes % (Manual) Eosinophils % (Manual) Nucleated RBC % Seg Neutrophils # Seg Neutrophils # Man Lymphocytes # (Manual) Monocytes # (Manual) PT INR POC ABG pH POC ABG pCO2 POC ABG pO2 VBG pH Sodium Potassium Chloride 95.2 L Carbon Dioxide BUN 70 H Creatinine 3.7 H Glucose 135 H POC Glucose 183 H 129 H Hemoglobin A1c Lactic Acid Calcium 6.4 L Ionized Calcium Total Bilirubin AST ALT Alkaline Phosphatase C-Reactive Protein Total Protein Albumin Complement C3 Complement C4 Crossmatch 01/29/18 01/29/18 01/29/18 00:00 05:50 06:00 WBC 15.8 H RBC 3.37 L Hgb 9.1 L Hct 28.6 L MCH 27 L RDW Plt Count Lymph % (Auto) [place] % (Auto) Lymph # [place] # Seg Neutrophils % Seg Neuts % (Manual) 87.0 H Lymphocytes % (Manual) 7.0 L Monocytes % (Manual) Eosinophils % (Manual) Nucleated RBC % Seg Neutrophils # Seg Neutrophils # Man 13.7 H Lymphocytes # (Manual) 1.1 L Monocytes # (Manual) PT INR POC ABG pH POC ABG pCO2 POC ABG pO2 VBG pH Sodium Potassium Chloride Carbon Dioxide BUN Creatinine Glucose POC Glucose 111 H 120 H Hemoglobin A1c Lactic Acid Calcium Ionized Calcium Total Bilirubin AST ALT Alkaline Phosphatase C-Reactive Protein Total Protein Albumin Complement C3 Complement C4 Crossmatch 01/29/18 01/29/18 01/29/18 06:00 06:00 12:29 WBC RBC Hgb Hct MCH RDW Plt Count Lymph % (Auto) [place] % (Auto) Lymph # [place] # Seg Neutrophils % Seg Neuts % (Manual) Lymphocytes % (Manual) Monocytes % (Manual) Eosinophils % (Manual) Nucleated RBC % Seg Neutrophils # Seg Neutrophils # Man Lymphocytes # (Manual) Monocytes # (Manual) PT INR POC ABG pH POC ABG pCO2 POC ABG pO2 VBG pH Sodium 136 L Potassium Chloride 95.4 L Carbon Dioxide BUN 94 H Creatinine 4.2 H Glucose 120 H POC Glucose 134 H Hemoglobin A1c Lactic Acid Calcium 6.5 L Ionized Calcium 3.9 L Total Bilirubin AST ALT Alkaline Phosphatase C-Reactive Protein Total Protein 4.5 L Albumin 2.0 L Complement C3 Complement C4 Crossmatch 01/29/18 01/30/18 01/30/18 18:32 00:12 04:47 WBC RBC Hgb Hct MCH RDW Plt Count Lymph % (Auto) [place] % (Auto) Lymph # [place] # Seg Neutrophils % Seg Neuts % (Manual) Lymphocytes % (Manual) Monocytes % (Manual) Eosinophils % (Manual) Nucleated RBC % Seg Neutrophils # Seg Neutrophils # Man Lymphocytes # (Manual) Monocytes # (Manual) PT INR POC ABG pH 7.456 H POC ABG pCO2 POC ABG pO2 VBG pH Sodium Potassium Chloride Carbon Dioxide BUN Creatinine Glucose POC Glucose 158 H 155 H Hemoglobin A1c Lactic Acid Calcium Ionized Calcium Total Bilirubin AST ALT Alkaline Phosphatase C-Reactive Protein Total Protein Albumin Complement C3 Complement C4 Crossmatch 01/30/18 01/30/18 01/30/18 12:06 17:46 Unknown WBC 12.8 H RBC 3.09 L Hgb 8.4 L Hct 26.2 L MCH 27 L RDW Plt Count Lymph % (Auto) [place] % (Auto) Lymph # [place] # Seg Neutrophils % Seg Neuts % (Manual) 95.0 H Lymphocytes % (Manual) 1.0 L Monocytes % (Manual) Eosinophils % (Manual) Nucleated RBC % Seg Neutrophils # Seg Neutrophils # Man 12.2 H Lymphocytes # (Manual) 0.1 L Monocytes # (Manual) PT INR POC ABG pH POC ABG pCO2 POC ABG pO2 VBG pH Sodium Potassium Chloride Carbon Dioxide BUN Creatinine Glucose POC Glucose 117 H 166 H Hemoglobin A1c Lactic Acid Calcium Ionized Calcium Total Bilirubin AST ALT Alkaline Phosphatase C-Reactive Protein Total Protein Albumin Complement C3 Complement C4 Crossmatch 01/30/18 01/31/18 01/31/18 Unknown 00:04 04:50 WBC 13.6 H RBC 3.53 L Hgb 9.8 L Hct 30.0 L MCH RDW 15.4 H Plt Count Lymph % (Auto) 3.6 L [place] % (Auto) 8.7 H Lymph # 0.5 L [place] # 1.2 H Seg Neutrophils % 87.1 H Seg Neuts % (Manual) Lymphocytes % (Manual) Monocytes % (Manual) Eosinophils % (Manual) Nucleated RBC % Seg Neutrophils # 11.8 H Seg Neutrophils # Man Lymphocytes # (Manual) Monocytes # (Manual) PT INR POC ABG pH POC ABG pCO2 POC ABG pO2 VBG pH Sodium Potassium Chloride Carbon Dioxide BUN 52 H Creatinine 2.9 H Glucose 105 H POC Glucose 155 H Hemoglobin A1c Lactic Acid Calcium 6.7 L Ionized Calcium Total Bilirubin AST ALT Alkaline Phosphatase C-Reactive Protein Total Protein Albumin Complement C3 Complement C4 Crossmatch 01/31/18 01/31/18 01/31/18 04:50 17:08 23:38 WBC RBC Hgb Hct MCH RDW Plt Count Lymph % (Auto) [place] % (Auto) Lymph # [place] # Seg Neutrophils % Seg Neuts % (Manual) Lymphocytes % (Manual) Monocytes % (Manual) Eosinophils % (Manual) Nucleated RBC % Seg Neutrophils # Seg Neutrophils # Man Lymphocytes # (Manual) Monocytes # (Manual) PT INR POC ABG pH POC ABG pCO2 POC ABG pO2 VBG pH Sodium Potassium Chloride Carbon Dioxide BUN 70 H Creatinine 3.3 H Glucose 102 H POC Glucose 106 H 136 H Hemoglobin A1c Lactic Acid Calcium 7.1 L Ionized Calcium Total Bilirubin AST ALT Alkaline Phosphatase C-Reactive Protein Total Protein Albumin Complement C3 Complement C4 Crossmatch 02/01/18 02/01/18 02/01/18 04:00 04:00 05:25 WBC RBC 3.16 L Hgb 8.7 L Hct 27.5 L MCH RDW Plt Count Lymph % (Auto) 6.4 L [place] % (Auto) 10.2 H Lymph # 0.7 L [place] # 1.1 H Seg Neutrophils % 81.7 H Seg Neuts % (Manual) Lymphocytes % (Manual) Monocytes % (Manual) Eosinophils % (Manual) Nucleated RBC % Seg Neutrophils # 8.6 H Seg Neutrophils # Man Lymphocytes # (Manual) Monocytes # (Manual) PT INR POC ABG pH POC ABG pCO2 POC ABG pO2 VBG pH Sodium Potassium 3.4 L Chloride Carbon Dioxide 31 H BUN 42 H Creatinine 2.2 H Glucose 101 H POC Glucose 163 H Hemoglobin A1c Lactic Acid Calcium 7.1 L Ionized Calcium Total Bilirubin AST ALT Alkaline Phosphatase C-Reactive Protein Total Protein Albumin Complement C3 Complement C4 Crossmatch 02/01/18 02/01/18 02/01/18 11:54 18:21 23:34 WBC RBC Hgb Hct MCH RDW Plt Count Lymph % (Auto) [place] % (Auto) Lymph # [place] # Seg Neutrophils % Seg Neuts % (Manual) Lymphocytes % (Manual) Monocytes % (Manual) Eosinophils % (Manual) Nucleated RBC % Seg Neutrophils # Seg Neutrophils # Man Lymphocytes # (Manual) Monocytes # (Manual) PT INR POC ABG pH POC ABG pCO2 POC ABG pO2 VBG pH Sodium Potassium Chloride Carbon Dioxide BUN Creatinine Glucose POC Glucose 123 H 157 H 114 H Hemoglobin A1c Lactic Acid Calcium Ionized Calcium Total Bilirubin AST ALT Alkaline Phosphatase C-Reactive Protein Total Protein Albumin Complement C3 Complement C4 Crossmatch 02/02/18 02/02/18 02/02/18 03:30 05:45 17:27 WBC RBC Hgb Hct MCH RDW Plt Count Lymph % (Auto) [place] % (Auto) Lymph # [place] # Seg Neutrophils % Seg Neuts % (Manual) Lymphocytes % (Manual) Monocytes % (Manual) Eosinophils % (Manual) Nucleated RBC % Seg Neutrophils # Seg Neutrophils # Man Lymphocytes # (Manual) Monocytes # (Manual) PT INR POC ABG pH POC ABG pCO2 POC ABG pO2 VBG pH Sodium Potassium 3.3 L Chloride 97.8 L Carbon Dioxide BUN 58 H Creatinine 2.7 H Glucose 111 H POC Glucose 110 H 125 H Hemoglobin A1c Lactic Acid Calcium 7.1 L Ionized Calcium Total Bilirubin AST ALT Alkaline Phosphatase C-Reactive Protein Total Protein Albumin Complement C3 Complement C4 Crossmatch 02/02/18 02/03/18 02/03/18 23:34 04:45 05:38 WBC RBC Hgb Hct MCH RDW Plt Count Lymph % (Auto) [place] % (Auto) Lymph # [place] # Seg Neutrophils % Seg Neuts % (Manual) Lymphocytes % (Manual) Monocytes % (Manual) Eosinophils % (Manual) Nucleated RBC % Seg Neutrophils # Seg Neutrophils # Man Lymphocytes # (Manual) Monocytes # (Manual) PT INR POC ABG pH POC ABG pCO2 POC ABG pO2 VBG pH Sodium Potassium Chloride Carbon Dioxide BUN 72 H Creatinine 3.2 H Glucose POC Glucose 153 H 111 H Hemoglobin A1c Lactic Acid Calcium 7.6 L Ionized Calcium Total Bilirubin AST ALT Alkaline Phosphatase C-Reactive Protein Total Protein Albumin Complement C3 Complement C4 Crossmatch 02/03/18 02/03/18 02/03/18 11:36 18:26 22:45 WBC RBC Hgb Hct MCH RDW Plt Count Lymph % (Auto) [place] % (Auto) Lymph # [place] # Seg Neutrophils % Seg Neuts % (Manual) Lymphocytes % (Manual) Monocytes % (Manual) Eosinophils % (Manual) Nucleated RBC % Seg Neutrophils # Seg Neutrophils # Man Lymphocytes # (Manual) Monocytes # (Manual) PT INR POC ABG pH POC ABG pCO2 POC ABG pO2 VBG pH Sodium Potassium Chloride Carbon Dioxide BUN Creatinine Glucose POC Glucose 108 H 155 H 141 H Hemoglobin A1c Lactic Acid Calcium Ionized Calcium Total Bilirubin AST ALT Alkaline Phosphatase C-Reactive Protein Total Protein Albumin Complement C3 Complement C4 Crossmatch 02/04/18 02/04/18 02/04/18 04:06 11:57 15:05 WBC RBC Hgb Hct MCH RDW Plt Count Lymph % (Auto) [place] % (Auto) Lymph # [place] # Seg Neutrophils % Seg Neuts % (Manual) Lymphocytes % (Manual) Monocytes % (Manual) Eosinophils % (Manual) Nucleated RBC % Seg Neutrophils # Seg Neutrophils # Man Lymphocytes # (Manual) Monocytes # (Manual) PT INR POC ABG pH POC ABG pCO2 POC ABG pO2 109 H VBG pH Sodium 136 L Potassium 3.4 L Chloride 96.7 L Carbon Dioxide BUN 42 H Creatinine 1.9 H Glucose POC Glucose 119 H Hemoglobin A1c Lactic Acid Calcium 7.3 L Ionized Calcium Total Bilirubin AST ALT Alkaline Phosphatase C-Reactive Protein Total Protein Albumin Complement C3 Complement C4 Crossmatch 02/05/18 02/05/18 02/05/18 04:10 05:04 18:02 WBC RBC Hgb Hct MCH RDW Plt Count Lymph % (Auto) [place] % (Auto) Lymph # [place] # Seg Neutrophils % Seg Neuts % (Manual) Lymphocytes % (Manual) Monocytes % (Manual) Eosinophils % (Manual) Nucleated RBC % Seg Neutrophils # Seg Neutrophils # Man Lymphocytes # (Manual) Monocytes # (Manual) PT INR POC ABG pH POC ABG pCO2 POC ABG pO2 VBG pH Sodium Potassium 3.5 L Chloride Carbon Dioxide BUN 52 H Creatinine 2.2 H Glucose POC Glucose 108 H 124 H Hemoglobin A1c Lactic Acid Calcium 7.5 L Ionized Calcium Total Bilirubin AST ALT Alkaline Phosphatase C-Reactive Protein Total Protein Albumin Complement C3 Complement C4 Crossmatch 02/06/18 02/06/18 02/06/18 05:38 07:52 07:52 WBC RBC 2.91 L Hgb 8.1 L Hct 24.6 L MCH RDW Plt Count Lymph % (Auto) 11.2 L [place] % (Auto) 8.5 H Lymph # 0.6 L [place] # Seg Neutrophils % 76.9 H Seg Neuts % (Manual) Lymphocytes % (Manual) Monocytes % (Manual) Eosinophils % (Manual) Nucleated RBC % Seg Neutrophils # Seg Neutrophils # Man Lymphocytes # (Manual) Monocytes # (Manual) PT INR POC ABG pH POC ABG pCO2 POC ABG pO2 VBG pH Sodium Potassium 3.2 L Chloride Carbon Dioxide BUN 37 H Creatinine 1.6 H Glucose 109 H POC Glucose 119 H Hemoglobin A1c Lactic Acid Calcium 8.1 L Ionized Calcium Total Bilirubin AST ALT Alkaline Phosphatase C-Reactive Protein Total Protein Albumin Complement C3 Complement C4 Crossmatch 02/06/18 02/06/18 02/07/18 12:14 17:20 07:45 WBC RBC 2.61 L Hgb 7.4 L Hct 22.7 L MCH RDW Plt Count Lymph % (Auto) [place] % (Auto) Lymph # [place] # Seg Neutrophils % Seg Neuts % (Manual) Lymphocytes % (Manual) Monocytes % (Manual) Eosinophils % (Manual) Nucleated RBC % Seg Neutrophils # Seg Neutrophils # Man Lymphocytes # (Manual) Monocytes # (Manual) PT INR POC ABG pH POC ABG pCO2 POC ABG pO2 VBG pH Sodium Potassium Chloride Carbon Dioxide BUN Creatinine Glucose POC Glucose 109 H 106 H Hemoglobin A1c Lactic Acid Calcium Ionized Calcium Total Bilirubin AST ALT Alkaline Phosphatase C-Reactive Protein Total Protein Albumin Complement C3 Complement C4 Crossmatch 02/07/18 02/08/18 02/08/18 07:45 08:16 08:16 WBC 3.7 L RBC 2.49 L Hgb 7.0 L Hct 21.5 L MCH RDW Plt Count Lymph % (Auto) [place] % (Auto) Lymph # [place] # Seg Neutrophils % Seg Neuts % (Manual) Lymphocytes % (Manual) Monocytes % (Manual) Eosinophils % (Manual) Nucleated RBC % Seg Neutrophils # Seg Neutrophils # Man Lymphocytes # (Manual) Monocytes # (Manual) PT INR POC ABG pH POC ABG pCO2 POC ABG pO2 VBG pH Sodium Potassium Chloride Carbon Dioxide BUN 48 H 52 H Creatinine 2.1 H 2.0 H Glucose POC Glucose Hemoglobin A1c Lactic Acid Calcium 8.1 L 8.3 L Ionized Calcium Total Bilirubin AST ALT Alkaline Phosphatase C-Reactive Protein Total Protein Albumin Complement C3 Complement C4 Crossmatch 02/08/18 02/09/18 02/09/18 16:35 00:19 05:31 WBC 3.7 L RBC 2.38 L Hgb 6.8 L Hct 20.3 L MCH RDW Plt Count Lymph % (Auto) [place] % (Auto) Lymph # [place] # Seg Neutrophils % Seg Neuts % (Manual) Lymphocytes % (Manual) Monocytes % (Manual) Eosinophils % (Manual) Nucleated RBC % Seg Neutrophils # Seg Neutrophils # Man Lymphocytes # (Manual) Monocytes # (Manual) PT INR POC ABG pH POC ABG pCO2 POC ABG pO2 VBG pH Sodium Potassium Chloride Carbon Dioxide BUN Creatinine Glucose POC Glucose 121 H 171 H Hemoglobin A1c Lactic Acid Calcium Ionized Calcium Total Bilirubin AST ALT Alkaline Phosphatase C-Reactive Protein Total Protein Albumin Complement C3 Complement C4 Crossmatch 02/09/18 02/09/18 02/10/18 05:31 17:17 00:16 WBC RBC Hgb Hct MCH RDW Plt Count Lymph % (Auto) [place] % (Auto) Lymph # [place] # Seg Neutrophils % Seg Neuts % (Manual) Lymphocytes % (Manual) Monocytes % (Manual) Eosinophils % (Manual) Nucleated RBC % Seg Neutrophils # Seg Neutrophils # Man Lymphocytes # (Manual) Monocytes # (Manual) PT INR POC ABG pH POC ABG pCO2 POC ABG pO2 VBG pH Sodium 146 H Potassium Chloride Carbon Dioxide BUN 48 H Creatinine 1.7 H Glucose POC Glucose 121 H 162 H Hemoglobin A1c Lactic Acid Calcium 8.0 L Ionized Calcium Total Bilirubin AST ALT Alkaline Phosphatase C-Reactive Protein Total Protein Albumin Complement C3 Complement C4 Crossmatch 02/10/18 02/10/18 02/10/18 11:58 17:04 17:58 WBC RBC Hgb Hct MCH RDW Plt Count Lymph % (Auto) [place] % (Auto) Lymph # [place] # Seg Neutrophils % Seg Neuts % (Manual) Lymphocytes % (Manual) Monocytes % (Manual) Eosinophils % (Manual) Nucleated RBC % Seg Neutrophils # Seg Neutrophils # Man Lymphocytes # (Manual) Monocytes # (Manual) PT INR POC ABG pH POC ABG pCO2 POC ABG pO2 VBG pH Sodium Potassium Chloride Carbon Dioxide BUN Creatinine Glucose POC Glucose 151 H 131 H Hemoglobin A1c Lactic Acid Calcium Ionized Calcium Total Bilirubin AST ALT Alkaline Phosphatase C-Reactive Protein Total Protein Albumin Complement C3 Complement C4 Crossmatch See Detail 02/11/18 02/11/18 02/11/18 00:08 07:40 07:40 WBC 4.3 L RBC 2.84 L Hgb 7.9 L Hct 24.6 L MCH RDW Plt Count Lymph % (Auto) [place] % (Auto) Lymph # [place] # Seg Neutrophils % Seg Neuts % (Manual) Lymphocytes % (Manual) Monocytes % (Manual) Eosinophils % (Manual) Nucleated RBC % Seg Neutrophils # Seg Neutrophils # Man Lymphocytes # (Manual) Monocytes # (Manual) PT INR POC ABG pH POC ABG pCO2 POC ABG pO2 VBG pH Sodium 150 H Potassium Chloride 109.5 H Carbon Dioxide BUN 35 H Creatinine Glucose POC Glucose 113 H Hemoglobin A1c Lactic Acid Calcium Ionized Calcium Total Bilirubin AST ALT Alkaline Phosphatase C-Reactive Protein Total Protein Albumin Complement C3 Complement C4 Crossmatch 02/11/18 02/11/18 02/12/18 12:36 17:37 06:09 WBC RBC Hgb Hct MCH RDW Plt Count Lymph % (Auto) [place] % (Auto) Lymph # [place] # Seg Neutrophils % Seg Neuts % (Manual) Lymphocytes % (Manual) Monocytes % (Manual) Eosinophils % (Manual) Nucleated RBC % Seg Neutrophils # Seg Neutrophils # Man Lymphocytes # (Manual) Monocytes # (Manual) PT INR POC ABG pH POC ABG pCO2 POC ABG pO2 VBG pH Sodium Potassium Chloride Carbon Dioxide BUN 28 H Creatinine Glucose POC Glucose 138 H 205 H Hemoglobin A1c Lactic Acid Calcium 8.0 L Ionized Calcium Total Bilirubin AST ALT Alkaline Phosphatase C-Reactive Protein Total Protein Albumin Complement C3 Complement C4 Crossmatch 02/12/18 02/12/18 02/12/18 06:09 13:06 16:53 WBC 4.0 L RBC 2.92 L Hgb 8.2 L Hct 25.5 L MCH RDW Plt Count Lymph % (Auto) [place] % (Auto) Lymph # [place] # Seg Neutrophils % Seg Neuts % (Manual) 71.0 H Lymphocytes % (Manual) Monocytes % (Manual) Eosinophils % (Manual) 5.0 H Nucleated RBC % Seg Neutrophils # Seg Neutrophils # Man Lymphocytes # (Manual) 0.7 L Monocytes # (Manual) PT INR POC ABG pH POC ABG pCO2 POC ABG pO2 VBG pH Sodium Potassium Chloride Carbon Dioxide BUN Creatinine Glucose POC Glucose 132 H 146 H Hemoglobin A1c Lactic Acid Calcium Ionized Calcium Total Bilirubin AST ALT Alkaline Phosphatase C-Reactive Protein Total Protein Albumin Complement C3 Complement C4 Crossmatch 02/13/18 02/13/18 02/13/18 01:23 04:36 12:45 WBC RBC Hgb Hct MCH RDW Plt Count Lymph % (Auto) [place] % (Auto) Lymph # [place] # Seg Neutrophils % Seg Neuts % (Manual) Lymphocytes % (Manual) Monocytes % (Manual) Eosinophils % (Manual) Nucleated RBC % Seg Neutrophils # Seg Neutrophils # Man Lymphocytes # (Manual) Monocytes # (Manual) PT INR POC ABG pH POC ABG pCO2 POC ABG pO2 VBG pH Sodium Potassium 3.3 L Chloride Carbon Dioxide BUN 25 H Creatinine Glucose POC Glucose 108 H 116 H Hemoglobin A1c Lactic Acid Calcium 8.0 L Ionized Calcium Total Bilirubin AST ALT Alkaline Phosphatase C-Reactive Protein Total Protein Albumin Complement C3 Complement C4 Crossmatch 02/13/18 02/14/18 02/14/18 17:46 00:16 06:04 WBC RBC Hgb Hct MCH RDW Plt Count Lymph % (Auto) [place] % (Auto) Lymph # [place] # Seg Neutrophils % Seg Neuts % (Manual) Lymphocytes % (Manual) Monocytes % (Manual) Eosinophils % (Manual) Nucleated RBC % Seg Neutrophils # Seg Neutrophils # Man Lymphocytes # (Manual) Monocytes # (Manual) PT INR POC ABG pH POC ABG pCO2 POC ABG pO2 VBG pH Sodium Potassium 3.4 L Chloride Carbon Dioxide BUN 20 H Creatinine Glucose POC Glucose 114 H 120 H Hemoglobin A1c Lactic Acid Calcium 7.9 L Ionized Calcium Total Bilirubin AST ALT Alkaline Phosphatase C-Reactive Protein Total Protein Albumin Complement C3 Complement C4 Crossmatch 02/14/18 02/14/18 02/15/18 12:09 17:23 01:26 WBC RBC Hgb Hct MCH RDW Plt Count Lymph % (Auto) [place] % (Auto) Lymph # [place] # Seg Neutrophils % Seg Neuts % (Manual) Lymphocytes % (Manual) Monocytes % (Manual) Eosinophils % (Manual) Nucleated RBC % Seg Neutrophils # Seg Neutrophils # Man Lymphocytes # (Manual) Monocytes # (Manual) PT INR POC ABG pH POC ABG pCO2 POC ABG pO2 VBG pH Sodium Potassium Chloride Carbon Dioxide BUN Creatinine Glucose POC Glucose 118 H 133 H 122 H Hemoglobin A1c Lactic Acid Calcium Ionized Calcium Total Bilirubin AST ALT Alkaline Phosphatase C-Reactive Protein Total Protein Albumin Complement C3 Complement C4 Crossmatch 02/15/18 02/15/18 02/17/18 11:34 18:14 11:47 WBC RBC Hgb Hct MCH RDW Plt Count Lymph % (Auto) [place] % (Auto) Lymph # [place] # Seg Neutrophils % Seg Neuts % (Manual) Lymphocytes % (Manual) Monocytes % (Manual) Eosinophils % (Manual) Nucleated RBC % Seg Neutrophils # Seg Neutrophils # Man Lymphocytes # (Manual) Monocytes # (Manual) PT INR POC ABG pH POC ABG pCO2 POC ABG pO2 VBG pH Sodium Potassium Chloride Carbon Dioxide BUN Creatinine Glucose POC Glucose 168 H 137 H 131 H Hemoglobin A1c Lactic Acid Calcium Ionized Calcium Total Bilirubin AST ALT Alkaline Phosphatase C-Reactive Protein Total Protein Albumin Complement C3 Complement C4 Crossmatch Allied health notes reviewed: nursing
[2018-02-19] MEDS: DILAUDID IV PRN ×3 (13:23→20:58)
--- NOTE | 2018-02-19 16:12 | Progress Note ---
Assessment and Plan Assessment and plan: 62-year-old admitted with hx of htn, polysubstance drug abuse per family, admitted after she was found unresponsive found in the bathroom pf a friends home, noted with severe lactic acidosis, hypotensive on vasopressors, hypercapeniac respiratory failure requiring intubation . Patient now extubated and has been transferred to the floor. Patient has had chest tube removed. she did sustain necrotic injury to the bilateral upper and lower ext limbs. -Acute combined respiratory failure on ventilator greater than 96 hours status post extubation: Resoved, continue oxygen via nasal cannula as needed -Septic shock, resolved, s/p vasopressors -Acute on chronic combined heart failure improved, Cardiology has signed off -Large left pleural effusion status post left chest tube. Chest tube was removed by interventional radiology -Acute renal failure due to ATN present on admission, improved. Patient previously on hemodialysis which now is on hold. Follow-up BMP -Acute toxic metabolic encephalopathy, POA. Resolved. -Shock liver/ischemic hepatitis. Resolved. 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 Continue pain control. -Pelvic masses, ?incidental findings. 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 -DVT prophylaxis: sq heparin -Disposition. Awaiting [facility] History Interval history: Patient seen and examined, doing well on the medical floor no new event noted. Hospitalist Physical - Physical exam Narrative exam: GENERAL: Elderly WF lying on bed intubated and unresponsive HEENT: Normocephalic. Atraumatic. No conjunctival congestion or icterus. Patient has dry mucous membranes. NECK: Supple. Trachea midline. ET tube in place CHEST/LUNGS: Clear to auscultated bilaterally, breathing under vent. Positive for a few wheezes, crackles or rhonchi. HEART/CARDIOVASCULAR: tachycardic. S1 and S2 positive. ABDOMEN: Abdomen is soft, nontender. Patient has normal bowel sounds. SKIN: There is no rash. Warm and dry. NEURO: Sedated, does not follow any command MUSCULOSKELETAL: No joint effusion EXTRIMITY: No edema, cyanosis of the toes and fingers possible ischmeia, fingers much worse PSYCH: Unable to assess skin: multiple tattoes - Constitutional Vitals: Temp Pulse Resp BP Pulse Ox 98.2 F 91 H 24 127/72 94 02/19/18 09:12 02/19/18 10:00 02/19/18 10:00 02/19/18 09:12 02/19/18 10:00 General appearance: Present: no acute distress Results - Labs CBC & Chem 7: 02/12/18 06:09 02/14/18 06:04 Labs: Laboratory Last Values WBC 4.0 K/mm3 (4.5-11.0) L 02/12/18 06:09 RBC 2.92 M/mm3 (3.65-5.03) L 02/12/18 06:09 Hgb 8.2 gm/dl (10.1-14.3) L 02/12/18 06:09 Hct 25.5 % (30.3-42.9) L 02/12/18 06:09 MCV 88 fl (79-97) 02/12/18 06:09 MCH 28 pg (28-32) 02/12/18 06:09 MCHC 32 % (30-34) 02/12/18 06:09 RDW 14.5 % (13.2-15.2) 02/12/18 06:09 Plt Count 296 K/mm3 (140-440) 02/12/18 06:09 Lymph % (Auto) 11.2 % (13.4-35.0) L 02/06/18 07:52 [place] % (Auto) 8.5 % (0.0-7.3) H 02/06/18 07:52 Eos % (Auto) 2.7 % (0.0-4.3) 02/06/18 07:52 Baso % (Auto) 0.7 % (0.0-1.8) 02/06/18 07:52 Lymph # 0.6 K/mm3 (1.2-5.4) L 02/06/18 07:52 [place] # 0.5 K/mm3 (0.0-0.8) 02/06/18 07:52 Eos # 0.2 K/mm3 (0.0-0.4) 02/06/18 07:52 Baso # 0.0 K/mm3 (0.0-0.1) 02/06/18 07:52 Add Manual Diff Complete 02/12/18 06:09 Total Counted 100 02/12/18 06:09 Seg Neutrophils % 76.9 % (40.0-70.0) H 02/06/18 07:52 Seg Neuts % (Manual) 71.0 % (40.0-70.0) H 02/12/18 06:09 Band Neutrophils % 1.0 % 02/12/18 06:09 Lymphocytes % (Manual) 17.0 % (13.4-35.0) 02/12/18 06:09 Reactive Lymphs % (Man) 1.0 % 02/12/18 06:09 Monocytes % (Manual) 5.0 % (0.0-7.3) 02/12/18 06:09 Eosinophils % (Manual) 5.0 % (0.0-4.3) H 02/12/18 06:09 Basophils % (Manual) 0 % (0.0-1.8) 02/12/18 06:09 Metamyelocytes % 0 % 02/12/18 06:09 Myelocytes % 0 % 02/12/18 06:09 Promyelocytes % 0 % 02/12/18 06:09 Blast Cells % 0 % 02/12/18 06:09 Nucleated RBC % Not Reportable 02/12/18 06:09 Seg Neutrophils # 4.3 K/mm3 (1.8-7.7) 02/06/18 07:52 Seg Neutrophils # Man 2.8 K/mm3 (1.8-7.7) 02/12/18 06:09 Band Neutrophils # 0.0 K/mm3 02/12/18 06:09 Lymphocytes # (Manual) 0.7 K/mm3 (1.2-5.4) L 02/12/18 06:09 Abs React Lymphs (Man) 0.0 K/mm3 02/12/18 06:09 Monocytes # (Manual) 0.2 K/mm3 (0.0-0.8) 02/12/18 06:09 Eosinophils # (Manual) 0.2 K/mm3 (0.0-0.4) 02/12/18 06:09 Basophils # (Manual) 0.0 K/mm3 (0.0-0.1) 02/12/18 06:09 Metamyelocytes # 0.0 K/mm3 02/12/18 06:09 Myelocytes # 0.0 K/mm3 02/12/18 06:09 Promyelocytes # 0.0 K/mm3 02/12/18 06:09 Blast Cells # 0.0 K/mm3 02/12/18 06:09 WBC Morphology Not Reportable 02/12/18 06:09 Hypersegmented Neuts Not Reportable 02/12/18 06:09 Hyposegmented Neuts Not Reportable 02/12/18 06:09 Hypogranular Neuts Not Reportable 02/12/18 06:09 Smudge Cells Not Reportable 02/12/18 06:09 Toxic Granulation Not Reportable 02/12/18 06:09 Toxic Vacuolation Not Reportable 02/12/18 06:09 Dohle Bodies Not Reportable 02/12/18 06:09 Pelger-Huet Anomaly Not Reportable 02/12/18 06:09 Opal Rods Not Reportable 02/12/18 06:09 Platelet Estimate Cons 02/12/18 06:09 Clumped Platelets Not Reportable 02/12/18 06:09 Plt Clumps, EDTA Not Reportable 02/12/18 06:09 Large Platelets Not Reportable 02/12/18 06:09 Giant Platelets Not Reportable 02/12/18 06:09 Platelet Satelliting Not Reportable 02/12/18 06:09 Plt Morphology Comment Not Reportable 02/12/18 06:09 RBC Morphology Not Reportable 02/12/18 06:09 Dimorphic RBCs Not Reportable 02/12/18 06:09 Polychromasia Not Reportable 02/12/18 06:09 Hypochromasia Not Reportable 02/12/18 06:09 Poikilocytosis Not Reportable 02/12/18 06:09 Anisocytosis 1+ 02/12/18 06:09 Microcytosis Not Reportable 02/12/18 06:09 Macrocytosis Not Reportable 02/12/18 06:09 Spherocytes Not Reportable 02/12/18 06:09 Pappenheimer Bodies Not Reportable 02/12/18 06:09 Sickle Cells Not Reportable 02/12/18 06:09 Target Cells Not Reportable 02/12/18 06:09 Tear Drop Cells Not Reportable 02/12/18 06:09 Ovalocytes Not Reportable 02/12/18 06:09 Stomatocytes 1+ 02/12/18 06:09 Helmet Cells Not Reportable 02/12/18 06:09 [place] Bodies Not Reportable 02/12/18 06:09 [place] Rings Not Reportable 02/12/18 06:09 [place] Cells Not Reportable 02/12/18 06:09 Bite Cells Not Reportable 02/12/18 06:09 Crenated Cell Not Reportable 02/12/18 06:09 Elliptocytes Not Reportable 02/12/18 06:09 Acanthocytes (Spur) Not Reportable 02/12/18 06:09 Rouleaux Not Reportable 02/12/18 06:09 Hemoglobin C Crystals Not Reportable 02/12/18 06:09 Schistocytes Not Reportable 02/12/18 06:09 Malaria parasites Not Reportable 02/12/18 06:09 Brock Bodies Not Reportable 02/12/18 06:09 Hem Pathologist Commnt No 02/12/18 06:09 PT 17.5 Sec. (12.2-14.9) H 01/20/18 07:00 INR 1.35 (0.87-1.13) H 01/20/18 07:00 Heparin Anti-Xa, Unfract Negative (Negative) 01/20/18 11:03 POC ABG pH 7.441 (7.35-7.45) 02/04/18 15:05 POC ABG pCO2 43.6 (35-45) 02/04/18 15:05 POC ABG pO2 109 (80-105) H 02/04/18 15:05 POC ABG HCO3 29.7 02/04/18 15:05 POC ABG Total CO2 31 02/04/18 15:05 POC ABG O2 Sat 98 02/04/18 15:05 POC ABG Base Excess 6 02/04/18 15:05 VBG pH 7.273 (7.320-7.420) L 01/17/18 16:54 FiO2 35 % 02/04/18 15:05 Sodium 142 mmol/L (137-145) 02/14/18 06:04 Potassium 3.4 mmol/L (3.6-5.0) L 02/14/18 06:04 Chloride 103.0 mmol/L (98-107) 02/14/18 06:04 Carbon Dioxide 25 mmol/L (22-30) 02/14/18 06:04 Anion Gap 17 mmol/L 02/14/18 06:04 BUN 20 mg/dL (7-17) H 02/14/18 06:04 Creatinine 0.9 mg/dL (0.7-1.2) 02/14/18 06:04 Estimated GFR > 60 ml/min 02/14/18 06:04 BUN/Creatinine Ratio 22 % 02/14/18 06:04 Glucose 91 mg/dL (65-100) 02/14/18 06:04 POC Glucose 84 (70-105) 02/19/18 06:18 Hemoglobin A1c 9.0 % (4-6) H 01/17/18 22:36 Lactic Acid 1.40 mmol/L (0.7-2.0) 01/24/18 15:08 Calcium 7.9 mg/dL (8.4-10.2) L 02/14/18 06:04 Ionized Calcium 3.9 mg/dL (4.8-5.6) L 01/29/18 06:00 Magnesium 1.80 mg/dL (1.7-2.3) 01/29/18 06:00 Total Bilirubin 0.50 mg/dL (0.1-1.2) 01/29/18 06:00 AST 21 units/L (5-40) 01/29/18 06:00 ALT 53 units/L (7-56) 01/29/18 06:00 Alkaline Phosphatase 88 units/L (35-129) 01/29/18 06:00 C-Reactive Protein 3.30 mg/dL (0.00-1.30) H 01/24/18 15:08 Total Protein 4.5 g/dL (6.3-8.2) L 01/29/18 06:00 Albumin 2.0 g/dL (3.9-5) L 01/29/18 06:00 Albumin/Globulin Ratio 0.8 % 01/29/18 06:00 Serotonin Release Assay See scanned report 01/20/18 11:03 Random Vancomycin 19.8 ug/mL (0-40.0) 01/27/18 05:20 ALISA Screen Negative (Negative) 01/20/18 Unknown Heparin-induced Plt Ab Negative (Negative) 01/20/18 11:03 UF Heparin High Dose 0 % Release 01/20/18 11:03 NEGRITA UFH Low Dose 0.1 0 % Release 01/20/18 11:03 NEGRITA UFH Low Dose 0.5 0 % Release 01/20/18 11:03 Complement C3 47 mg/dL (83-193) L 01/20/18 Unknown Complement C4 9 mg/dL (15-57) L 01/20/18 Unknown Hepatitis A IgM Ab Non-reactive (NonReactive) 01/20/18 07:00 Hep Bs Antigen Non-reactive (Negative) 01/20/18 07:00 Hep B Core IgM Ab Non-reactive (NonReactive) 01/20/18 07:00 Hepatitis C Antibody Non-reactive (NonReactive) 01/20/18 07:00 HIV 1&2 Antibody Rapid Non react (Non React) 01/20/18 Unknown HIV P24 Antigen Non react (Non React) 01/20/18 Unknown Blood Type B NEGATIVE 02/10/18 17:04 Antibody Screen Negative 02/10/18 17:04 Crossmatch See Detail 02/10/18 17:04
[2018-02-19] MEDS: REGLAN IV PRN (20:58)
[2018-02-20] MEDS: PEPCID PO SCH (10:05)
[2018-02-20] MEDS: NACL 0.45% 1000 ML 1,000 ML IV SCH (10:13)
[2018-02-20] MEDS: BROVANA NEBU IH SCH ×2 (10:54→20:46)
[2018-02-20] MEDS: PULMICORT IH SCH ×2 (10:55→20:46)
[2018-02-20] MEDS: DILAUDID IV PRN ×2 (11:48→17:24)
--- NOTE | 2018-02-20 12:43 | Discharge Summary ---
Providers - Providers Date of Admission: 01/17/18 22:07 Attending physician: MANI SWANSON MD 01/18/18 08:00 Consult to Physician [CONS] Urgent Consulting Provider: AB WARD Reason For Exam: BUN /Crea elevated Place consult to:: Keerthi Ramirez Notified:: Oly Phone number called:: [phone] Was contact made?: Yes If yes, spoke with:: Oly Time called:: 06:55 01/18/18 11:45 Consult to Physician [CONS] Urgent Consulting Provider: IVAN DESIR Reason For Exam: cvc for hd Place consult to:: informed to Notified:: yes 01/19/18 00:35 Consult to Dietitian/Nutrition [CONS] Routine Physician Instructions: Assess nutrtn needs, initiate, modify, manage TF Reason For Exam: Reason for Consult: Write/Manage Tube Feeding Reason for Consult: Write/Manage Tube Feeding 01/20/18 11:49 Consult to Physician [CONS] Routine Consulting Provider: MAHOGANY CENTENO Reason For Exam: Fever Place consult to:: ID Notified:: Yes Was contact made?: Yes If yes, spoke with:: Dr. Fulton Comment:: Dr. Fulton in the unit 01/21/18 11:29 Consult to Physician [CONS] Routine Consulting Provider: IVAN CALLOWAY Reason For Exam: b/l hand ischemic changes at fingers Place consult to:: Dr. Calloway Notified:: Yes Phone number called:: [phone] Was contact made?: Yes If yes, spoke with:: Darcy Time called:: 16:27 Comment:: ITZEL called back 01/21/18 12:39 Consult to Physician [CONS] Routine Consulting Provider: CAROLINA JUDGE Reason For Exam: pelvic mass/abcess Place consult to:: Carolina Gaming Notified:: Yes Phone number called:: [phone] Was contact made?: Yes If yes, spoke with:: Tabatha Time called:: 16:50 01/23/18 09:29 Consult to Physician [CONS] Routine Consulting Provider: IVAN CATALAN Reason For Exam: AMS Place consult to:: Inspector And Hand Packager Regla Gandhi Notified:: yes Phone number called:: [phone] Was contact made?: Yes If yes, spoke with:: Lucio Gandhi Time called:: 10:46 01/28/18 11:52 Consult to Interventional Radiology [CONS] Routine Consulting Provider: IVAN DESIR Reason For Exam: drain pelvic cyst ?abscess Place consult to:: Luis Notified:: yes Comment:: seen by doctor 01/28/18 11:58 Consult to Interventional Radiology [CONS] Routine Consulting Provider: IVAN DESIR Reason For Exam: Chest tube placement for PTX Place consult to:: Luis Notified:: yes 01/30/18 15:20 Consult to Wound/ET Nurse [CONS] Routine Reason For Exam: assess right breast-excoriation and slough 01/30/18 20:02 Consult to Wound/ET Nurse [CONS] Routine Reason For Exam: NECROSIS EVAL TO DIGITS/TOES, FEET, BLISTER, RASH 02/05/18 10:30 Consult to Physician [CONS] Routine Comment: Consulting Provider: LAVERNE WESTBROOK Physician Instructions: Reason For Exam: ovariancystic masses 02/05/18 19:51 Speech Therapy Evaluation and Treat [CONS] Routine Reason For Exam: recent extubation- swallow eval needed 02/07/18 15:34 Occupational Therapy Evaluate and Treat [CONS] Routine Comment: has necrotic fingers Reason For Exam: deconditioning/ S/P vent Physical Therapy Evaluation and Treat [CONS] Routine Comment: has necrotic juan feet Reason For Exam: deconditioning/ S/P vent 02/09/18 09:15 Consult to Physician [CONS] Routine Comment: Consulting Provider: KORINA BELTRE Physician Instructions: Reason For Exam: Anemia, dropping h/h 02/14/18 11:30 Consult to Interventional Radiology [CONS] Routine Consulting Provider: IVAN DESIR Reason For Exam: chest tube removal Place consult to:: Lakeisha Notified:: service Phone number called:: [phone] Was contact made?: Yes Time called:: 12:15 Primary care physician: AUDIO VIDEO REPAIRER Hospitalization Reason for admission: ACUTE RESPIRATORY FAILURE Condition: Stable Hospital course: 62-year-old admitted with hx of htn, polysubstance drug abuse per family, admitted after she was found unresponsive found in the bathroom pf a friends home, noted with severe lactic acidosis, hypotensive on vasopressors, hypercapeniac respiratory failure requiring intubation . Patient now extubated and has been transferred to the floor. Patient has had chest tube removed. she did sustain necrotic injury to the bilateral upper and lower ext limbs. Patient received extensive counseling about drug use cessation. On discharge she elected for home hospice. She did have large pleural effusion for which a chest tube was placed and subsequently discontinued. Patient is to follow with Vascular and ortho for continued management of ischmic limb changes Discharge diagnosis -Acute combined respiratory failure on ventilator greater than 96 hours status post extubation: -Septic shock, -Acute on chronic combined heart failure improved, -Large left pleural effusion status post left chest tube. -Acute renal failure due to ATN present on admission, -Acute toxic metabolic encephalopathy, POA. -Shock liver/ischemic hepatitis. -Gangrene of the digits due to the above: -Pelvic masses, ?incidental findings. Disposition: DC-50 TO HOSPICE (HOME) Time spent for discharge: 35 MINS Core Measure Documentation - Palliative Care Palliative Care/ Comfort Measures: Not Applicable - Core Measures Any of the following diagnoses?: heart failure, none - VTE Discharge Requirements Deep Vein Thrombosis/Pulmonary Embolism Present on Admission: No - Heart Failure Discharge Requirements MARY ANNE/ARB for LVSD if EF <40%: Yes Beta dejuan at discharge: Yes Exam - Physical Exam Narrative exam: GENERAL: Elderly WF lying on bed intubated and unresponsive HEENT: Normocephalic. Atraumatic. No conjunctival congestion or icterus. Patient has dry mucous membranes. NECK: Supple. Trachea midline. ET tube in place CHEST/LUNGS: Clear to auscultated bilaterally, breathing under vent. Positive for a few wheezes, crackles or rhonchi. HEART/CARDIOVASCULAR: tachycardic. S1 and S2 positive. ABDOMEN: Abdomen is soft, nontender. Patient has normal bowel sounds. SKIN: There is no rash. Warm and dry. NEURO: Sedated, does not follow any command MUSCULOSKELETAL: No joint effusion EXTRIMITY: No edema, cyanosis of the toes and fingers possible ischmeia, fingers much worse PSYCH: Unable to assess skin: multiple tattoes - Constitutional Vitals: Temp Pulse Resp BP Pulse Ox 99.6 F 98 H 24 121/64 96 02/20/18 07:37 02/20/18 10:00 02/20/18 10:00 02/20/18 07:37 02/20/18 10:31 Plan Activity: advance as tolerated, fall precautions Diet: low cholesterol Special Instructions: record daily weights, record daily BP diary Follow up with: RHONA VARNER MD [Staff Physician] - 7 Days PRIMARY CARE, [Primary Care Provider] - 7 Days VALDEMAR PIMENTEL MD [Staff Physician] - 7 Days IVAN CALLOWAY MD [Staff Physician] - 7 Days ANGELO OWENS MD [Staff Physician] - 7 Days Prescriptions: QUEtiapine [SEROquel] 200 mg PO QHS #30 tablet ALBUTEROL Inhaler [ProAir HFA Inhaler] 2 puff IH QID PRN #1 inhalation PRN Reason: Shortness Of Breath Arformoterol Nebu [Brovana Nebu] 15 mcg IH Q12HRT #60 ml Budesonide [Pulmicort Respules] 0.5 mg IH Q12HRT #60 nebu Famotidine [Pepcid] 20 mg PO DAILY #30 tablet Lisinopril [Zestril] 10 mg PO DAILY #30 tablet traMADol [Ultram] 50 mg PO Q6HR PRN #20 tablet PRN Reason: Pain
--- NOTE | 2018-02-20 19:23 | Progress Note ---
Assessment and Plan Patient sleeping at this time on room air. No acute respiratory distress.Patient afebrile. O2 saturation 90%.Left chest tube removed. - Patient Problems (1) Acute respiratory failure Current Visit: Yes Status: Acute Plan to address problem: Patient presently sleeping on room air., O2 saturation 90%. Brovanna/budesonide aerosol treatments q 12 hours. Albuterol/atrovent aerosol treatments q 6 hours PRN for shortness of breath. Heparin 5000 units S/C q 8 hours Continue Famotadine. (2) Pleural effusion Current Visit: Yes Status: Acute Plan to address problem: Left chest tube removed.. Left sided pleural effusion improved. (3) Acute renal failure Current Visit: Yes Status: Acute Plan to address problem: Management as per nephrology. (4) Encephalopathy Current Visit: Yes Status: Acute Plan to address problem: Management as per primary care and neurology. (5) Gangrene of lower extremity Current Visit: Yes Status: Acute Plan to address problem: Management as per vascular surgery. (6) Gas gangrene of upper extremity Current Visit: Yes Status: Acute Plan to address problem: Management as per vascular surgery. Subjective Date of service: 02/20/18 Principal diagnosis: Acute hypoxic respiratory failure, severe sepsis with shock , encephalopathy Interval history: Patient sleeping at this time on room air. No acute respiratory distress.Patient afebrile. O2 saturation 90%.Left sided chest tube removed. Objective Vital Signs - 12hr 02/20/18 02/20/18 02/20/18 07:37 10:00 10:31 Temperature 99.6 F Pulse Rate 98 H 98 H Pulse Rate [ 98 H From Monitor] Respiratory 24 24 Rate Blood Pressure 121/64 O2 Sat by Pulse 91 91 96 Oximetry 02/20/18 02/20/18 13:17 17:38 Temperature 99.0 F 97.9 F Pulse Rate 95 H 96 H Pulse Rate [ From Monitor] Respiratory 22 20 Rate Blood Pressure 129/77 159/73 O2 Sat by Pulse 90 90 Oximetry Constitutional: no acute distress Eyes: non-icteric ENT: oropharynx moist Neck: supple, no lymphadenopathy, no JVD Effort: mildly labored Ascultation: Bilateral: diminished breath sounds, rales Percussion: Bilateral: not dull Cardiovascular: regular rate and rhythm, other (no rubs or murmurs) Gastrointestinal: normoactive bowel sounds, soft, non-tender, non-distended, other (no [place] HSM) Integumentary: normal Extremities: no cyanosis, no edema, pink and warm, pulses normal, other ( digital gangrene to all four extremities) Neurologic: non-focal exam (grossly), pupils equal and round, CN II-XII normal, motor strength normal and Psychiatric: other (calm) CBC and BMP: 02/12/18 06:09 02/14/18 06:04 ABG, PT/INR, D-dimer: ABG POC ABG pH 7.441 (7.35-7.45) 02/04/18 15:05 POC ABG pCO2 43.6 (35-45) 02/04/18 15:05 POC ABG pO2 109 (80-105) H 02/04/18 15:05 POC ABG HCO3 29.7 02/04/18 15:05 POC ABG Total CO2 31 02/04/18 15:05 POC ABG O2 Sat 98 02/04/18 15:05 PT/INR, D-dimer PT 17.5 Sec. (12.2-14.9) H 01/20/18 07:00 INR 1.35 (0.87-1.13) H 01/20/18 07:00 Abnormal lab findings: Abnormal Labs 01/17/18 01/17/18 01/17/18 15:25 16:15 16:48 WBC RBC Hgb Hct MCH RDW Plt Count Lymph % (Auto) [place] % (Auto) Lymph # [place] # Seg Neutrophils % Seg Neuts % (Manual) Lymphocytes % (Manual) Monocytes % (Manual) Eosinophils % (Manual) Nucleated RBC % Seg Neutrophils # Seg Neutrophils # Man Lymphocytes # (Manual) Monocytes # (Manual) PT INR POC ABG pH 7.099 L POC ABG pCO2 58.9 H POC ABG pO2 149 H VBG pH Sodium Potassium Chloride Carbon Dioxide BUN Creatinine Glucose POC Glucose < 40 L 121 H Hemoglobin A1c Lactic Acid Calcium Ionized Calcium Total Bilirubin AST ALT Alkaline Phosphatase C-Reactive Protein Total Protein Albumin Complement C3 Complement C4 Crossmatch 01/17/18 01/17/18 01/17/18 16:54 16:54 16:54 WBC RBC Hgb Hct MCH RDW Plt Count Lymph % (Auto) [place] % (Auto) Lymph # [place] # Seg Neutrophils % Seg Neuts % (Manual) 72.0 H Lymphocytes % (Manual) 3.0 L Monocytes % (Manual) Eosinophils % (Manual) Nucleated RBC % Seg Neutrophils # Seg Neutrophils # Man Lymphocytes # (Manual) 0.2 L Monocytes # (Manual) PT 18.5 H INR 1.45 H POC ABG pH POC ABG pCO2 POC ABG pO2 VBG pH Sodium 136 L Potassium Chloride 97.8 L Carbon Dioxide 16 L BUN 43 H Creatinine 3.3 H Glucose 121 H POC Glucose Hemoglobin A1c Lactic Acid Calcium 6.7 L Ionized Calcium Total Bilirubin AST ALT Alkaline Phosphatase C-Reactive Protein Total Protein 4.4 L Albumin 2.3 L Complement C3 Complement C4 Crossmatch 01/17/18 01/17/18 01/17/18 16:54 16:54 17:11 WBC RBC Hgb Hct MCH RDW Plt Count Lymph % (Auto) [place] % (Auto) Lymph # [place] # Seg Neutrophils % Seg Neuts % (Manual) Lymphocytes % (Manual) Monocytes % (Manual) Eosinophils % (Manual) Nucleated RBC % Seg Neutrophils # Seg Neutrophils # Man Lymphocytes # (Manual) Monocytes # (Manual) PT INR POC ABG pH POC ABG pCO2 POC ABG pO2 VBG pH 7.273 L Sodium Potassium Chloride Carbon Dioxide BUN Creatinine Glucose POC Glucose Hemoglobin A1c Lactic Acid 4.70 H* 4.30 H* Calcium Ionized Calcium Total Bilirubin AST ALT Alkaline Phosphatase C-Reactive Protein Total Protein Albumin Complement C3 Complement C4 Crossmatch 01/17/18 01/17/18 01/17/18 18:02 18:15 19:21 WBC RBC Hgb Hct MCH RDW Plt Count Lymph % (Auto) [place] % (Auto) Lymph # [place] # Seg Neutrophils % Seg Neuts % (Manual) Lymphocytes % (Manual) Monocytes % (Manual) Eosinophils % (Manual) Nucleated RBC % Seg Neutrophils # Seg Neutrophils # Man Lymphocytes # (Manual) Monocytes # (Manual) PT INR POC ABG pH 7.177 L POC ABG pCO2 POC ABG pO2 VBG pH Sodium Potassium Chloride Carbon Dioxide BUN Creatinine Glucose POC Glucose < 40 L Hemoglobin A1c Lactic Acid 3.00 H* Calcium Ionized Calcium Total Bilirubin AST ALT Alkaline Phosphatase C-Reactive Protein Total Protein Albumin Complement C3 Complement C4 Crossmatch 01/17/18 01/17/18 01/17/18 22:36 22:36 23:16 WBC RBC Hgb Hct MCH RDW Plt Count Lymph % (Auto) [place] % (Auto) Lymph # [place] # Seg Neutrophils % Seg Neuts % (Manual) Lymphocytes % (Manual) Monocytes % (Manual) Eosinophils % (Manual) Nucleated RBC % Seg Neutrophils # Seg Neutrophils # Man Lymphocytes # (Manual) Monocytes # (Manual) PT INR POC ABG pH 7.112 L POC ABG pCO2 50.1 H POC ABG pO2 50 L VBG pH Sodium Potassium Chloride Carbon Dioxide BUN Creatinine Glucose POC Glucose Hemoglobin A1c 9.0 H Lactic Acid 5.50 H* Calcium Ionized Calcium Total Bilirubin AST ALT Alkaline Phosphatase C-Reactive Protein Total Protein Albumin Complement C3 Complement C4 Crossmatch 01/18/18 01/18/18 01/18/18 01:26 03:21 03:21 WBC RBC Hgb Hct MCH RDW Plt Count Lymph % (Auto) [place] % (Auto) Lymph # [place] # Seg Neutrophils % Seg Neuts % (Manual) 27.0 L Lymphocytes % (Manual) 3.0 L Monocytes % (Manual) 14.0 H Eosinophils % (Manual) Nucleated RBC % Seg Neutrophils # Seg Neutrophils # Man Lymphocytes # (Manual) 0.3 L Monocytes # (Manual) 1.4 H PT INR POC ABG pH POC ABG pCO2 POC ABG pO2 VBG pH Sodium Potassium Chloride Carbon Dioxide BUN Creatinine Glucose POC Glucose 107 H Hemoglobin A1c Lactic Acid 8.00 H* Calcium Ionized Calcium Total Bilirubin AST ALT Alkaline Phosphatase C-Reactive Protein Total Protein Albumin Complement C3 Complement C4 Crossmatch 01/18/18 01/18/18 01/18/18 03:21 04:40 05:07 WBC RBC Hgb Hct MCH RDW Plt Count Lymph % (Auto) [place] % (Auto) Lymph # [place] # Seg Neutrophils % Seg Neuts % (Manual) Lymphocytes % (Manual) Monocytes % (Manual) Eosinophils % (Manual) Nucleated RBC % Seg Neutrophils # Seg Neutrophils # Man Lymphocytes # (Manual) Monocytes # (Manual) PT INR POC ABG pH 7.093 L POC ABG pCO2 31.5 L POC ABG pO2 77 L VBG pH Sodium Potassium Chloride 96.9 L Carbon Dioxide 14 L BUN 47 H Creatinine 3.4 H Glucose POC Glucose Hemoglobin A1c Lactic Acid 11.10 H* Calcium 6.4 L Ionized Calcium Total Bilirubin AST 47 H ALT Alkaline Phosphatase C-Reactive Protein Total Protein 4.3 L Albumin 2.4 L Complement C3 Complement C4 Crossmatch 01/18/18 01/18/1818 06:29 07:06 11:44 WBC RBC Hgb Hct MCH RDW Plt Count Lymph % (Auto) [place] % (Auto) Lymph # [place] # Seg Neutrophils % Seg Neuts % (Manual) Lymphocytes % (Manual) Monocytes % (Manual) Eosinophils % (Manual) Nucleated RBC % Seg Neutrophils # Seg Neutrophils # Man Lymphocytes # (Manual) Monocytes # (Manual) PT INR POC ABG pH POC ABG pCO2 POC ABG pO2 VBG pH Sodium Potassium Chloride Carbon Dioxide BUN Creatinine Glucose POC Glucose 47 L 149 H < 40 L Hemoglobin A1c Lactic Acid Calcium Ionized Calcium Total Bilirubin AST ALT Alkaline Phosphatase C-Reactive Protein Total Protein Albumin Complement C3 Complement C4 Crossmatch 01/18/18 01/18/18 01/18/18 11:46 14:15 18:01 WBC RBC Hgb Hct MCH RDW Plt Count Lymph % (Auto) [place] % (Auto) Lymph # [place] # Seg Neutrophils % Seg Neuts % (Manual) Lymphocytes % (Manual) Monocytes % (Manual) Eosinophils % (Manual) Nucleated RBC % Seg Neutrophils # Seg Neutrophils # Man Lymphocytes # (Manual) Monocytes # (Manual) PT INR POC ABG pH POC ABG pCO2 POC ABG pO2 VBG pH Sodium Potassium Chloride Carbon Dioxide BUN Creatinine Glucose POC Glucose 116 H < 40 L Hemoglobin A1c Lactic Acid 10.00 H* Calcium Ionized Calcium Total Bilirubin AST ALT Alkaline Phosphatase C-Reactive Protein Total Protein Albumin Complement C3 Complement C4 Crossmatch 01/18/18 01/18/18 01/18/18 18:02 23:25 23:27 WBC RBC Hgb Hct MCH RDW Plt Count Lymph % (Auto) [place] % (Auto) Lymph # [place] # Seg Neutrophils % Seg Neuts % (Manual) Lymphocytes % (Manual) Monocytes % (Manual) Eosinophils % (Manual) Nucleated RBC % Seg Neutrophils # Seg Neutrophils # Man Lymphocytes # (Manual) Monocytes # (Manual) PT INR POC ABG pH POC ABG pCO2 POC ABG pO2 VBG pH Sodium Potassium Chloride Carbon Dioxide BUN Creatinine Glucose POC Glucose 136 H < 40 L < 40 L Hemoglobin A1c Lactic Acid Calcium Ionized Calcium Total Bilirubin AST ALT Alkaline Phosphatase C-Reactive Protein Total Protein Albumin Complement C3 Complement C4 Crossmatch 01/19/18 01/19/18 01/19/18 04:02 06:50 06:50 WBC 18.5 H RBC Hgb Hct MCH RDW Plt Count 136 L Lymph % (Auto) [place] % (Auto) Lymph # [place] # Seg Neutrophils % Seg Neuts % (Manual) 86.0 H Lymphocytes % (Manual) 4.0 L Monocytes % (Manual) Eosinophils % (Manual) Nucleated RBC % Seg Neutrophils # Seg Neutrophils # Man 15.9 H Lymphocytes # (Manual) 0.7 L Monocytes # (Manual) 1.1 H PT 21.3 H INR 1.73 H POC ABG pH POC ABG pCO2 28.3 L POC ABG pO2 57 L VBG pH Sodium Potassium Chloride Carbon Dioxide BUN Creatinine Glucose POC Glucose Hemoglobin A1c Lactic Acid Calcium Ionized Calcium Total Bilirubin AST ALT Alkaline Phosphatase C-Reactive Protein Total Protein Albumin Complement C3 Complement C4 Crossmatch 01/19/18 01/19/18 01/19/18 06:50 08:45 11:17 WBC RBC Hgb Hct MCH RDW Plt Count Lymph % (Auto) [place] % (Auto) Lymph # [place] # Seg Neutrophils % Seg Neuts % (Manual) Lymphocytes % (Manual) Monocytes % (Manual) Eosinophils % (Manual) Nucleated RBC % Seg Neutrophils # Seg Neutrophils # Man Lymphocytes # (Manual) Monocytes # (Manual) PT INR POC ABG pH POC ABG pCO2 POC ABG pO2 VBG pH Sodium 135 L Potassium Chloride 92.8 L Carbon Dioxide 19 L BUN 31 H Creatinine 2.6 H Glucose POC Glucose 110 H Hemoglobin A1c Lactic Acid 7.90 H* Calcium 7.1 L Ionized Calcium Total Bilirubin 1.60 H AST 2526 H ALT 1187 H Alkaline Phosphatase 133 H C-Reactive Protein Total Protein 4.8 L Albumin 2.0 L Complement C3 Complement C4 Crossmatch 01/19/18 01/19/18 01/19/18 11:31 22:12 23:34 WBC RBC Hgb Hct MCH RDW Plt Count Lymph % (Auto) [place] % (Auto) Lymph # [place] # Seg Neutrophils % Seg Neuts % (Manual) Lymphocytes % (Manual) Monocytes % (Manual) Eosinophils % (Manual) Nucleated RBC % Seg Neutrophils # Seg Neutrophils # Man Lymphocytes # (Manual) Monocytes # (Manual) PT INR POC ABG pH POC ABG pCO2 31.6 L POC ABG pO2 59 L VBG pH Sodium Potassium Chloride Carbon Dioxide BUN Creatinine Glucose POC Glucose 131 H 53 L Hemoglobin A1c Lactic Acid Calcium Ionized Calcium Total Bilirubin AST ALT Alkaline Phosphatase C-Reactive Protein Total Protein Albumin Complement C3 Complement C4 Crossmatch 03/10/2801/20/18 01/20/18 05:18 05:18 05:19 WBC 19.7 H RBC Hgb Hct MCH 27 L RDW Plt Count 84 L Lymph % (Auto) [place] % (Auto) Lymph # [place] # Seg Neutrophils % Seg Neuts % (Manual) 84.0 H Lymphocytes % (Manual) 2.0 L Monocytes % (Manual) 8.0 H Eosinophils % (Manual) Nucleated RBC % Seg Neutrophils # Seg Neutrophils # Man 16.5 H Lymphocytes # (Manual) 0.4 L Monocytes # (Manual) 1.6 H PT INR POC ABG pH POC ABG pCO2 POC ABG pO2 VBG pH Sodium 136 L Potassium Chloride 96.9 L Carbon Dioxide 17 L BUN 65 H Creatinine 4.1 H D Glucose 104 H POC Glucose 125 H Hemoglobin A1c Lactic Acid Calcium 7.1 L Ionized Calcium Total Bilirubin 1.60 H AST 1702 H ALT 1141 H Alkaline Phosphatase 172 H C-Reactive Protein Total Protein 5.0 L Albumin 1.7 L Complement C3 Complement C4 Crossmatch 01/20/18 01/20/18 01/20/18 07:00 11:48 13:54 WBC RBC Hgb Hct MCH RDW Plt Count Lymph % (Auto) [place] % (Auto) Lymph # [place] # Seg Neutrophils % Seg Neuts % (Manual) Lymphocytes % (Manual) Monocytes % (Manual) Eosinophils % (Manual) Nucleated RBC % Seg Neutrophils # Seg Neutrophils # Man Lymphocytes # (Manual) Monocytes # (Manual) PT 17.5 H INR 1.35 H POC ABG pH POC ABG pCO2 POC ABG pO2 VBG pH Sodium Potassium Chloride Carbon Dioxide BUN Creatinine Glucose POC Glucose 109 H Hemoglobin A1c Lactic Acid Calcium Ionized Calcium Total Bilirubin AST ALT Alkaline Phosphatase C-Reactive Protein 37.50 H Total Protein Albumin Complement C3 Complement C4 Crossmatch 01/20/18 01/20/18 01/20/18 17:28 17:51 20:50 WBC RBC Hgb Hct MCH RDW Plt Count Lymph % (Auto) [place] % (Auto) Lymph # [place] # Seg Neutrophils % Seg Neuts % (Manual) Lymphocytes % (Manual) Monocytes % (Manual) Eosinophils % (Manual) Nucleated RBC % Seg Neutrophils # Seg Neutrophils # Man Lymphocytes # (Manual) Monocytes # (Manual) PT INR POC ABG pH POC ABG pCO2 POC ABG pO2 VBG pH Sodium Potassium Chloride Carbon Dioxide BUN Creatinine Glucose POC Glucose 140 H Hemoglobin A1c Lactic Acid 2.70 H* 2.30 H* Calcium Ionized Calcium Total Bilirubin AST ALT Alkaline Phosphatase C-Reactive Protein Total Protein Albumin Complement C3 Complement C4 Crossmatch 01/20/18 01/20/18 01/20/18 23:55 Unknown Unknown WBC RBC Hgb Hct MCH RDW Plt Count Lymph % (Auto) [place] % (Auto) Lymph # [place] # Seg Neutrophils % Seg Neuts % (Manual) Lymphocytes % (Manual) Monocytes % (Manual) Eosinophils % (Manual) Nucleated RBC % Seg Neutrophils # Seg Neutrophils # Man Lymphocytes # (Manual) Monocytes # (Manual) PT INR POC ABG pH POC ABG pCO2 POC ABG pO2 VBG pH Sodium Potassium Chloride Carbon Dioxide BUN Creatinine Glucose POC Glucose 149 H Hemoglobin A1c Lactic Acid 2.50 H* Calcium Ionized Calcium Total Bilirubin AST ALT Alkaline Phosphatase C-Reactive Protein Total Protein Albumin Complement C3 47 L Complement C4 Crossmatch 01/20/18 01/21/18 01/21/18 Unknown 00:12 04:27 WBC RBC Hgb Hct MCH RDW Plt Count Lymph % (Auto) [place] % (Auto) Lymph # [place] # Seg Neutrophils % Seg Neuts % (Manual) Lymphocytes % (Manual) Monocytes % (Manual) Eosinophils % (Manual) Nucleated RBC % Seg Neutrophils # Seg Neutrophils # Man Lymphocytes # (Manual) Monocytes # (Manual) PT INR POC ABG pH POC ABG pCO2 33.8 L POC ABG pO2 72 L VBG pH Sodium Potassium Chloride Carbon Dioxide BUN Creatinine Glucose POC Glucose 134 H Hemoglobin A1c Lactic Acid Calcium Ionized Calcium Total Bilirubin AST ALT Alkaline Phosphatase C-Reactive Protein Total Protein Albumin Complement C3 Complement C4 9 L Crossmatch 01/21/18 01/21/18 01/21/18 05:00 05:00 05:00 WBC 21.7 H RBC Hgb Hct MCH 27 L RDW Plt Count 67 L Lymph % (Auto) [place] % (Auto) Lymph # [place] # Seg Neutrophils % Seg Neuts % (Manual) 71.0 H Lymphocytes % (Manual) 9.0 L Monocytes % (Manual) Eosinophils % (Manual) Nucleated RBC % 4.0 H Seg Neutrophils # Seg Neutrophils # Man 15.4 H Lymphocytes # (Manual) Monocytes # (Manual) PT INR POC ABG pH POC ABG pCO2 POC ABG pO2 VBG pH Sodium Potassium Chloride Carbon Dioxide 21 L BUN 71 H Creatinine 4.1 H Glucose 149 H POC Glucose Hemoglobin A1c Lactic Acid 2.10 H* Calcium 7.5 L Ionized Calcium Total Bilirubin AST 494 H ALT 780 H Alkaline Phosphatase 151 H C-Reactive Protein Total Protein 4.9 L Albumin 1.9 L Complement C3 Complement C4 Crossmatch 01/21/18 01/21/18 01/21/18 05:18 12:20 18:07 WBC RBC Hgb Hct MCH RDW Plt Count Lymph % (Auto) [place] % (Auto) Lymph # [place] # Seg Neutrophils % Seg Neuts % (Manual) Lymphocytes % (Manual) Monocytes % (Manual) Eosinophils % (Manual) Nucleated RBC % Seg Neutrophils # Seg Neutrophils # Man Lymphocytes # (Manual) Monocytes # (Manual) PT INR POC ABG pH POC ABG pCO2 POC ABG pO2 VBG pH Sodium Potassium Chloride Carbon Dioxide BUN Creatinine Glucose POC Glucose 132 H 158 H 143 H Hemoglobin A1c Lactic Acid Calcium Ionized Calcium Total Bilirubin AST ALT Alkaline Phosphatase C-Reactive Protein Total Protein Albumin Complement C3 Complement C4 Crossmatch 01/21/18 01/22/18 01/22/18 23:40 03:48 04:10 WBC 24.9 H RBC Hgb Hct MCH 27 L RDW Plt Count 80 L Lymph % (Auto) [place] % (Auto) Lymph # [place] # Seg Neutrophils % Seg Neuts % (Manual) Lymphocytes % (Manual) Monocytes % (Manual) Eosinophils % (Manual) Nucleated RBC % Seg Neutrophils # Seg Neutrophils # Man Lymphocytes # (Manual) Monocytes # (Manual) PT INR POC ABG pH POC ABG pCO2 POC ABG pO2 65 L VBG pH Sodium Potassium Chloride Carbon Dioxide BUN Creatinine Glucose POC Glucose 136 H Hemoglobin A1c Lactic Acid Calcium Ionized Calcium Total Bilirubin AST ALT Alkaline Phosphatase C-Reactive Protein Total Protein Albumin Complement C3 Complement C4 Crossmatch 01/22/18 01/22/18 01/22/18 04:10 05:56 11:30 WBC RBC Hgb Hct MCH RDW Plt Count Lymph % (Auto) [place] % (Auto) Lymph # [place] # Seg Neutrophils % Seg Neuts % (Manual) Lymphocytes % (Manual) Monocytes % (Manual) Eosinophils % (Manual) Nucleated RBC % Seg Neutrophils # Seg Neutrophils # Man Lymphocytes # (Manual) Monocytes # (Manual) PT INR POC ABG pH POC ABG pCO2 POC ABG pO2 VBG pH Sodium Potassium Chloride 97.7 L Carbon Dioxide BUN 72 H Creatinine 3.6 H Glucose 145 H POC Glucose 139 H 156 H Hemoglobin A1c Lactic Acid Calcium 7.3 L Ionized Calcium Total Bilirubin AST 146 H ALT 547 H Alkaline Phosphatase C-Reactive Protein Total Protein 5.2 L Albumin 2.3 L Complement C3 Complement C4 Crossmatch 01/22/18 01/23/18 01/23/18 17:41 00:00 04:39 WBC RBC Hgb Hct MCH RDW Plt Count Lymph % (Auto) [place] % (Auto) Lymph # [place] # Seg Neutrophils % Seg Neuts % (Manual) Lymphocytes % (Manual) Monocytes % (Manual) Eosinophils % (Manual) Nucleated RBC % Seg Neutrophils # Seg Neutrophils # Man Lymphocytes # (Manual) Monocytes # (Manual) PT INR POC ABG pH POC ABG pCO2 31.9 L POC ABG pO2 62 L VBG pH Sodium Potassium Chloride Carbon Dioxide BUN Creatinine Glucose POC Glucose 185 H 150 H Hemoglobin A1c Lactic Acid Calcium Ionized Calcium Total Bilirubin AST ALT Alkaline Phosphatase C-Reactive Protein Total Protein Albumin Complement C3 Complement C4 Crossmatch 01/23/18 01/23/18 01/23/18 05:24 11:38 14:20 WBC RBC Hgb Hct MCH RDW Plt Count Lymph % (Auto) [place] % (Auto) Lymph # [place] # Seg Neutrophils % Seg Neuts % (Manual) Lymphocytes % (Manual) Monocytes % (Manual) Eosinophils % (Manual) Nucleated RBC % Seg Neutrophils # Seg Neutrophils # Man Lymphocytes # (Manual) Monocytes # (Manual) PT INR POC ABG pH POC ABG pCO2 31.4 L POC ABG pO2 55 L VBG pH Sodium Potassium Chloride Carbon Dioxide BUN Creatinine Glucose POC Glucose 215 H 182 H Hemoglobin A1c Lactic Acid Calcium Ionized Calcium Total Bilirubin AST ALT Alkaline Phosphatase C-Reactive Protein Total Protein Albumin Complement C3 Complement C4 Crossmatch 01/23/18 01/24/18 01/24/18 17:26 00:10 03:40 WBC 34.5 H RBC Hgb Hct MCH 27 L RDW Plt Count 130 L Lymph % (Auto) [place] % (Auto) Lymph # [place] # Seg Neutrophils % Seg Neuts % (Manual) Lymphocytes % (Manual) Monocytes % (Manual) Eosinophils % (Manual) Nucleated RBC % Seg Neutrophils # Seg Neutrophils # Man Lymphocytes # (Manual) Monocytes # (Manual) PT INR POC ABG pH POC ABG pCO2 POC ABG pO2 VBG pH Sodium Potassium Chloride Carbon Dioxide BUN Creatinine Glucose POC Glucose 252 H 225 H Hemoglobin A1c Lactic Acid Calcium Ionized Calcium Total Bilirubin AST ALT Alkaline Phosphatase C-Reactive Protein Total Protein Albumin Complement C3 Complement C4 Crossmatch 01/24/18 01/24/18 01/24/18 03:40 06:06 11:36 WBC RBC Hgb Hct MCH RDW Plt Count Lymph % (Auto) [place] % (Auto) Lymph # [place] # Seg Neutrophils % Seg Neuts % (Manual) Lymphocytes % (Manual) Monocytes % (Manual) Eosinophils % (Manual) Nucleated RBC % Seg Neutrophils # Seg Neutrophils # Man Lymphocytes # (Manual) Monocytes # (Manual) PT INR POC ABG pH POC ABG pCO2 POC ABG pO2 VBG pH Sodium Potassium 5.7 H D Chloride 95.6 L Carbon Dioxide 20 L BUN 96 H Creatinine 4.2 H Glucose 166 H POC Glucose 162 H 160 H Hemoglobin A1c Lactic Acid Calcium 7.3 L Ionized Calcium Total Bilirubin AST 52 H ALT 235 H Alkaline Phosphatase C-Reactive Protein Total Protein 5.1 L Albumin 2.5 L Complement C3 Complement C4 Crossmatch 01/24/18 01/24/18 01/25/18 15:08 17:32 00:04 WBC RBC Hgb Hct MCH RDW Plt Count Lymph % (Auto) [place] % (Auto) Lymph # [place] # Seg Neutrophils % Seg Neuts % (Manual) Lymphocytes % (Manual) Monocytes % (Manual) Eosinophils % (Manual) Nucleated RBC % Seg Neutrophils # Seg Neutrophils # Man Lymphocytes # (Manual) Monocytes # (Manual) PT INR POC ABG pH POC ABG pCO2 POC ABG pO2 VBG pH Sodium Potassium Chloride Carbon Dioxide BUN Creatinine Glucose POC Glucose 160 H 169 H Hemoglobin A1c Lactic Acid Calcium Ionized Calcium Total Bilirubin AST ALT Alkaline Phosphatase C-Reactive Protein 3.30 H Total Protein Albumin Complement C3 Complement C4 Crossmatch 01/25/18 01/25/18 01/25/18 04:34 05:25 11:46 WBC RBC Hgb Hct MCH RDW Plt Count Lymph % (Auto) [place] % (Auto) Lymph # [place] # Seg Neutrophils % Seg Neuts % (Manual) Lymphocytes % (Manual) Monocytes % (Manual) Eosinophils % (Manual) Nucleated RBC % Seg Neutrophils # Seg Neutrophils # Man Lymphocytes # (Manual) Monocytes # (Manual) PT INR POC ABG pH 7.342 L POC ABG pCO2 48.7 H POC ABG pO2 VBG pH Sodium Potassium Chloride Carbon Dioxide BUN Creatinine Glucose POC Glucose 133 H 121 H Hemoglobin A1c Lactic Acid Calcium Ionized Calcium Total Bilirubin AST ALT Alkaline Phosphatase C-Reactive Protein Total Protein Albumin Complement C3 Complement C4 Crossmatch 01/25/18 01/25/18 01/26/18 17:42 23:50 04:13 WBC RBC Hgb Hct MCH RDW Plt Count Lymph % (Auto) [place] % (Auto) Lymph # [place] # Seg Neutrophils % Seg Neuts % (Manual) Lymphocytes % (Manual) Monocytes % (Manual) Eosinophils % (Manual) Nucleated RBC % Seg Neutrophils # Seg Neutrophils # Man Lymphocytes # (Manual) Monocytes # (Manual) PT INR POC ABG pH POC ABG pCO2 POC ABG pO2 70 L VBG pH Sodium Potassium Chloride Carbon Dioxide BUN Creatinine Glucose POC Glucose 150 H 149 H Hemoglobin A1c Lactic Acid Calcium Ionized Calcium Total Bilirubin AST ALT Alkaline Phosphatase C-Reactive Protein Total Protein Albumin Complement C3 Complement C4 Crossmatch 01/26/18 01/26/18 01/26/18 05:25 06:20 06:20 WBC 21.0 H RBC Hgb Hct MCH RDW Plt Count Lymph % (Auto) [place] % (Auto) Lymph # [place] # Seg Neutrophils % Seg Neuts % (Manual) 95.0 H Lymphocytes % (Manual) 1.0 L Monocytes % (Manual) Eosinophils % (Manual) Nucleated RBC % Seg Neutrophils # Seg Neutrophils # Man 20.0 H Lymphocytes # (Manual) 0.2 L Monocytes # (Manual) PT INR POC ABG pH POC ABG pCO2 POC ABG pO2 VBG pH Sodium Potassium 5.9 H Chloride 95.7 L Carbon Dioxide BUN 102 H Creatinine 4.6 H Glucose POC Glucose 107 H Hemoglobin A1c Lactic Acid Calcium 6.6 L Ionized Calcium Total Bilirubin AST ALT Alkaline Phosphatase C-Reactive Protein Total Protein Albumin Complement C3 Complement C4 Crossmatch 01/26/18 01/26/18 01/27/18 12:19 18:09 00:17 WBC RBC Hgb Hct MCH RDW Plt Count Lymph % (Auto) [place] % (Auto) Lymph # [place] # Seg Neutrophils % Seg Neuts % (Manual) Lymphocytes % (Manual) Monocytes % (Manual) Eosinophils % (Manual) Nucleated RBC % Seg Neutrophils # Seg Neutrophils # Man Lymphocytes # (Manual) Monocytes # (Manual) PT INR POC ABG pH POC ABG pCO2 POC ABG pO2 VBG pH Sodium Potassium Chloride Carbon Dioxide BUN Creatinine Glucose POC Glucose 151 H 110 H 159 H Hemoglobin A1c Lactic Acid Calcium Ionized Calcium Total Bilirubin AST ALT Alkaline Phosphatase C-Reactive Protein Total Protein Albumin Complement C3 Complement C4 Crossmatch 01/27/18 01/27/18 01/27/18 05:20 05:20 05:43 WBC 23.3 H RBC Hgb Hct MCH 27 L RDW Plt Count Lymph % (Auto) [place] % (Auto) Lymph # [place] # Seg Neutrophils % Seg Neuts % (Manual) 97.0 H Lymphocytes % (Manual) 0 L Monocytes % (Manual) Eosinophils % (Manual) Nucleated RBC % Seg Neutrophils # Seg Neutrophils # Man 22.6 H Lymphocytes # (Manual) 0.0 L Monocytes # (Manual) PT INR POC ABG pH POC ABG pCO2 POC ABG pO2 VBG pH Sodium Potassium 5.7 H Chloride 93.9 L Carbon Dioxide 21 L BUN 121 H Creatinine 5.2 H Glucose 131 H POC Glucose 121 H Hemoglobin A1c Lactic Acid Calcium 6.1 L Ionized Calcium Total Bilirubin AST ALT Alkaline Phosphatase C-Reactive Protein Total Protein Albumin Complement C3 Complement C4 Crossmatch 01/27/18 01/27/18 01/28/18 12:16 17:32 00:05 WBC RBC Hgb Hct MCH RDW Plt Count Lymph % (Auto) [place] % (Auto) Lymph # [place] # Seg Neutrophils % Seg Neuts % (Manual) Lymphocytes % (Manual) Monocytes % (Manual) Eosinophils % (Manual) Nucleated RBC % Seg Neutrophils # Seg Neutrophils # Man Lymphocytes # (Manual) Monocytes # (Manual) PT INR POC ABG pH POC ABG pCO2 POC ABG pO2 VBG pH Sodium Potassium Chloride Carbon Dioxide BUN Creatinine Glucose POC Glucose 161 H 146 H 128 H Hemoglobin A1c Lactic Acid Calcium Ionized Calcium Total Bilirubin AST ALT Alkaline Phosphatase C-Reactive Protein Total Protein Albumin Complement C3 Complement C4 Crossmatch 01/28/18 01/28/18 01/28/18 04:24 05:43 06:30 WBC 24.8 H RBC Hgb Hct MCH RDW Plt Count Lymph % (Auto) [place] % (Auto) Lymph # [place] # Seg Neutrophils % Seg Neuts % (Manual) 91.0 H Lymphocytes % (Manual) 4.0 L Monocytes % (Manual) Eosinophils % (Manual) Nucleated RBC % Seg Neutrophils # Seg Neutrophils # Man 22.6 H Lymphocytes # (Manual) 1.0 L Monocytes # (Manual) 1.0 H PT INR POC ABG pH POC ABG pCO2 POC ABG pO2 77 L VBG pH Sodium Potassium Chloride Carbon Dioxide BUN Creatinine Glucose POC Glucose 137 H Hemoglobin A1c Lactic Acid Calcium Ionized Calcium Total Bilirubin AST ALT Alkaline Phosphatase C-Reactive Protein Total Protein Albumin Complement C3 Complement C4 Crossmatch 01/28/18 01/28/18 01/28/18 06:30 11:30 18:08 WBC RBC Hgb Hct MCH RDW Plt Count Lymph % (Auto) [place] % (Auto) Lymph # [place] # Seg Neutrophils % Seg Neuts % (Manual) Lymphocytes % (Manual) Monocytes % (Manual) Eosinophils % (Manual) Nucleated RBC % Seg Neutrophils # Seg Neutrophils # Man Lymphocytes # (Manual) Monocytes # (Manual) PT INR POC ABG pH POC ABG pCO2 POC ABG pO2 VBG pH Sodium Potassium Chloride 95.2 L Carbon Dioxide BUN 70 H Creatinine 3.7 H Glucose 135 H POC Glucose 183 H 129 H Hemoglobin A1c Lactic Acid Calcium 6.4 L Ionized Calcium Total Bilirubin AST ALT Alkaline Phosphatase C-Reactive Protein Total Protein Albumin Complement C3 Complement C4 Crossmatch 01/29/18 01/29/18 01/29/18 00:00 05:50 06:00 WBC 15.8 H RBC 3.37 L Hgb 9.1 L Hct 28.6 L MCH 27 L RDW Plt Count Lymph % (Auto) [place] % (Auto) Lymph # [place] # Seg Neutrophils % Seg Neuts % (Manual) 87.0 H Lymphocytes % (Manual) 7.0 L Monocytes % (Manual) Eosinophils % (Manual) Nucleated RBC % Seg Neutrophils # Seg Neutrophils # Man 13.7 H Lymphocytes # (Manual) 1.1 L Monocytes # (Manual) PT INR POC ABG pH POC ABG pCO2 POC ABG pO2 VBG pH Sodium Potassium Chloride Carbon Dioxide BUN Creatinine Glucose POC Glucose 111 H 120 H Hemoglobin A1c Lactic Acid Calcium Ionized Calcium Total Bilirubin AST ALT Alkaline Phosphatase C-Reactive Protein Total Protein Albumin Complement C3 Complement C4 Crossmatch 01/29/18 01/29/18 01/29/18 06:00 06:00 12:29 WBC RBC Hgb Hct MCH RDW Plt Count Lymph % (Auto) [place] % (Auto) Lymph # [place] # Seg Neutrophils % Seg Neuts % (Manual) Lymphocytes % (Manual) Monocytes % (Manual) Eosinophils % (Manual) Nucleated RBC % Seg Neutrophils # Seg Neutrophils # Man Lymphocytes # (Manual) Monocytes # (Manual) PT INR POC ABG pH POC ABG pCO2 POC ABG pO2 VBG pH Sodium 136 L Potassium Chloride 95.4 L Carbon Dioxide BUN 94 H Creatinine 4.2 H Glucose 120 H POC Glucose 134 H Hemoglobin A1c Lactic Acid Calcium 6.5 L Ionized Calcium 3.9 L Total Bilirubin AST ALT Alkaline Phosphatase C-Reactive Protein Total Protein 4.5 L Albumin 2.0 L Complement C3 Complement C4 Crossmatch 01/29/18 01/30/18 01/30/18 18:32 00:12 04:47 WBC RBC Hgb Hct MCH RDW Plt Count Lymph % (Auto) [place] % (Auto) Lymph # [place] # Seg Neutrophils % Seg Neuts % (Manual) Lymphocytes % (Manual) Monocytes % (Manual) Eosinophils % (Manual) Nucleated RBC % Seg Neutrophils # Seg Neutrophils # Man Lymphocytes # (Manual) Monocytes # (Manual) PT INR POC ABG pH 7.456 H POC ABG pCO2 POC ABG pO2 VBG pH Sodium Potassium Chloride Carbon Dioxide BUN Creatinine Glucose POC Glucose 158 H 155 H Hemoglobin A1c Lactic Acid Calcium Ionized Calcium Total Bilirubin AST ALT Alkaline Phosphatase C-Reactive Protein Total Protein Albumin Complement C3 Complement C4 Crossmatch 01/30/18 01/30/18 01/30/18 12:06 17:46 Unknown WBC 12.8 H RBC 3.09 L Hgb 8.4 L Hct 26.2 L MCH 27 L RDW Plt Count Lymph % (Auto) [place] % (Auto) Lymph # [place] # Seg Neutrophils % Seg Neuts % (Manual) 95.0 H Lymphocytes % (Manual) 1.0 L Monocytes % (Manual) Eosinophils % (Manual) Nucleated RBC % Seg Neutrophils # Seg Neutrophils # Man 12.2 H Lymphocytes # (Manual) 0.1 L Monocytes # (Manual) PT INR POC ABG pH POC ABG pCO2 POC ABG pO2 VBG pH Sodium Potassium Chloride Carbon Dioxide BUN Creatinine Glucose POC Glucose 117 H 166 H Hemoglobin A1c Lactic Acid Calcium Ionized Calcium Total Bilirubin AST ALT Alkaline Phosphatase C-Reactive Protein Total Protein Albumin Complement C3 Complement C4 Crossmatch 01/30/18 01/31/18 01/31/18 Unknown 00:04 04:50 WBC 13.6 H RBC 3.53 L Hgb 9.8 L Hct 30.0 L MCH RDW 15.4 H Plt Count Lymph % (Auto) 3.6 L [place] % (Auto) 8.7 H Lymph # 0.5 L [place] # 1.2 H Seg Neutrophils % 87.1 H Seg Neuts % (Manual) Lymphocytes % (Manual) Monocytes % (Manual) Eosinophils % (Manual) Nucleated RBC % Seg Neutrophils # 11.8 H Seg Neutrophils # Man Lymphocytes # (Manual) Monocytes # (Manual) PT INR POC ABG pH POC ABG pCO2 POC ABG pO2 VBG pH Sodium Potassium Chloride Carbon Dioxide BUN 52 H Creatinine 2.9 H Glucose 105 H POC Glucose 155 H Hemoglobin A1c Lactic Acid Calcium 6.7 L Ionized Calcium Total Bilirubin AST ALT Alkaline Phosphatase C-Reactive Protein Total Protein Albumin Complement C3 Complement C4 Crossmatch 01/31/18 01/31/18 01/31/18 04:50 17:08 23:38 WBC RBC Hgb Hct MCH RDW Plt Count Lymph % (Auto) [place] % (Auto) Lymph # [place] # Seg Neutrophils % Seg Neuts % (Manual) Lymphocytes % (Manual) Monocytes % (Manual) Eosinophils % (Manual) Nucleated RBC % Seg Neutrophils # Seg Neutrophils # Man Lymphocytes # (Manual) Monocytes # (Manual) PT INR POC ABG pH POC ABG pCO2 POC ABG pO2 VBG pH Sodium Potassium Chloride Carbon Dioxide BUN 70 H Creatinine 3.3 H Glucose 102 H POC Glucose 106 H 136 H Hemoglobin A1c Lactic Acid Calcium 7.1 L Ionized Calcium Total Bilirubin AST ALT Alkaline Phosphatase C-Reactive Protein Total Protein Albumin Complement C3 Complement C4 Crossmatch 02/01/18 02/01/18 02/01/18 04:00 04:00 05:25 WBC RBC 3.16 L Hgb 8.7 L Hct 27.5 L MCH RDW Plt Count Lymph % (Auto) 6.4 L [place] % (Auto) 10.2 H Lymph # 0.7 L [place] # 1.1 H Seg Neutrophils % 81.7 H Seg Neuts % (Manual) Lymphocytes % (Manual) Monocytes % (Manual) Eosinophils % (Manual) Nucleated RBC % Seg Neutrophils # 8.6 H Seg Neutrophils # Man Lymphocytes # (Manual) Monocytes # (Manual) PT INR POC ABG pH POC ABG pCO2 POC ABG pO2 VBG pH Sodium Potassium 3.4 L Chloride Carbon Dioxide 31 H BUN 42 H Creatinine 2.2 H Glucose 101 H POC Glucose 163 H Hemoglobin A1c Lactic Acid Calcium 7.1 L Ionized Calcium Total Bilirubin AST ALT Alkaline Phosphatase C-Reactive Protein Total Protein Albumin Complement C3 Complement C4 Crossmatch 02/01/18 02/01/18 02/01/18 11:54 18:21 23:34 WBC RBC Hgb Hct MCH RDW Plt Count Lymph % (Auto) [place] % (Auto) Lymph # [place] # Seg Neutrophils % Seg Neuts % (Manual) Lymphocytes % (Manual) Monocytes % (Manual) Eosinophils % (Manual) Nucleated RBC % Seg Neutrophils # Seg Neutrophils # Man Lymphocytes # (Manual) Monocytes # (Manual) PT INR POC ABG pH POC ABG pCO2 POC ABG pO2 VBG pH Sodium Potassium Chloride Carbon Dioxide BUN Creatinine Glucose POC Glucose 123 H 157 H 114 H Hemoglobin A1c Lactic Acid Calcium Ionized Calcium Total Bilirubin AST ALT Alkaline Phosphatase C-Reactive Protein Total Protein Albumin Complement C3 Complement C4 Crossmatch 02/02/18 02/02/18 02/02/18 03:30 05:45 17:27 WBC RBC Hgb Hct MCH RDW Plt Count Lymph % (Auto) [place] % (Auto) Lymph # [place] # Seg Neutrophils % Seg Neuts % (Manual) Lymphocytes % (Manual) Monocytes % (Manual) Eosinophils % (Manual) Nucleated RBC % Seg Neutrophils # Seg Neutrophils # Man Lymphocytes # (Manual) Monocytes # (Manual) PT INR POC ABG pH POC ABG pCO2 POC ABG pO2 VBG pH Sodium Potassium 3.3 L Chloride 97.8 L Carbon Dioxide BUN 58 H Creatinine 2.7 H Glucose 111 H POC Glucose 110 H 125 H Hemoglobin A1c Lactic Acid Calcium 7.1 L Ionized Calcium Total Bilirubin AST ALT Alkaline Phosphatase C-Reactive Protein Total Protein Albumin Complement C3 Complement C4 Crossmatch 02/02/18 02/03/18 02/03/18 23:34 04:45 05:38 WBC RBC Hgb Hct MCH RDW Plt Count Lymph % (Auto) [place] % (Auto) Lymph # [place] # Seg Neutrophils % Seg Neuts % (Manual) Lymphocytes % (Manual) Monocytes % (Manual) Eosinophils % (Manual) Nucleated RBC % Seg Neutrophils # Seg Neutrophils # Man Lymphocytes # (Manual) Monocytes # (Manual) PT INR POC ABG pH POC ABG pCO2 POC ABG pO2 VBG pH Sodium Potassium Chloride Carbon Dioxide BUN 72 H Creatinine 3.2 H Glucose POC Glucose 153 H 111 H Hemoglobin A1c Lactic Acid Calcium 7.6 L Ionized Calcium Total Bilirubin AST ALT Alkaline Phosphatase C-Reactive Protein Total Protein Albumin Complement C3 Complement C4 Crossmatch 02/03/18 02/03/18 02/03/18 11:36 18:26 22:45 WBC RBC Hgb Hct MCH RDW Plt Count Lymph % (Auto) [place] % (Auto) Lymph # [place] # Seg Neutrophils % Seg Neuts % (Manual) Lymphocytes % (Manual) Monocytes % (Manual) Eosinophils % (Manual) Nucleated RBC % Seg Neutrophils # Seg Neutrophils # Man Lymphocytes # (Manual) Monocytes # (Manual) PT INR POC ABG pH POC ABG pCO2 POC ABG pO2 VBG pH Sodium Potassium Chloride Carbon Dioxide BUN Creatinine Glucose POC Glucose 108 H 155 H 141 H Hemoglobin A1c Lactic Acid Calcium Ionized Calcium Total Bilirubin AST ALT Alkaline Phosphatase C-Reactive Protein Total Protein Albumin Complement C3 Complement C4 Crossmatch 02/04/18 02/04/18 02/04/18 04:06 11:57 15:05 WBC RBC Hgb Hct MCH RDW Plt Count Lymph % (Auto) [place] % (Auto) Lymph # [place] # Seg Neutrophils % Seg Neuts % (Manual) Lymphocytes % (Manual) Monocytes % (Manual) Eosinophils % (Manual) Nucleated RBC % Seg Neutrophils # Seg Neutrophils # Man Lymphocytes # (Manual) Monocytes # (Manual) PT INR POC ABG pH POC ABG pCO2 POC ABG pO2 109 H VBG pH Sodium 136 L Potassium 3.4 L Chloride 96.7 L Carbon Dioxide BUN 42 H Creatinine 1.9 H Glucose POC Glucose 119 H Hemoglobin A1c Lactic Acid Calcium 7.3 L Ionized Calcium Total Bilirubin AST ALT Alkaline Phosphatase C-Reactive Protein Total Protein Albumin Complement C3 Complement C4 Crossmatch 02/05/18 02/05/18 02/05/18 04:10 05:04 18:02 WBC RBC Hgb Hct MCH RDW Plt Count Lymph % (Auto) [place] % (Auto) Lymph # [place] # Seg Neutrophils % Seg Neuts % (Manual) Lymphocytes % (Manual) Monocytes % (Manual) Eosinophils % (Manual) Nucleated RBC % Seg Neutrophils # Seg Neutrophils # Man Lymphocytes # (Manual) Monocytes # (Manual) PT INR POC ABG pH POC ABG pCO2 POC ABG pO2 VBG pH Sodium Potassium 3.5 L Chloride Carbon Dioxide BUN 52 H Creatinine 2.2 H Glucose POC Glucose 108 H 124 H Hemoglobin A1c Lactic Acid Calcium 7.5 L Ionized Calcium Total Bilirubin AST ALT Alkaline Phosphatase C-Reactive Protein Total Protein Albumin Complement C3 Complement C4 Crossmatch 02/06/18 02/06/18 02/06/18 05:38 07:52 07:52 WBC RBC 2.91 L Hgb 8.1 L Hct 24.6 L MCH RDW Plt Count Lymph % (Auto) 11.2 L [place] % (Auto) 8.5 H Lymph # 0.6 L [place] # Seg Neutrophils % 76.9 H Seg Neuts % (Manual) Lymphocytes % (Manual) Monocytes % (Manual) Eosinophils % (Manual) Nucleated RBC % Seg Neutrophils # Seg Neutrophils # Man Lymphocytes # (Manual) Monocytes # (Manual) PT INR POC ABG pH POC ABG pCO2 POC ABG pO2 VBG pH Sodium Potassium 3.2 L Chloride Carbon Dioxide BUN 37 H Creatinine 1.6 H Glucose 109 H POC Glucose 119 H Hemoglobin A1c Lactic Acid Calcium 8.1 L Ionized Calcium Total Bilirubin AST ALT Alkaline Phosphatase C-Reactive Protein Total Protein Albumin Complement C3 Complement C4 Crossmatch 02/06/18 02/06/18 02/07/18 12:14 17:20 07:45 WBC RBC 2.61 L Hgb 7.4 L Hct 22.7 L MCH RDW Plt Count Lymph % (Auto) [place] % (Auto) Lymph # [place] # Seg Neutrophils % Seg Neuts % (Manual) Lymphocytes % (Manual) Monocytes % (Manual) Eosinophils % (Manual) Nucleated RBC % Seg Neutrophils # Seg Neutrophils # Man Lymphocytes # (Manual) Monocytes # (Manual) PT INR POC ABG pH POC ABG pCO2 POC ABG pO2 VBG pH Sodium Potassium Chloride Carbon Dioxide BUN Creatinine Glucose POC Glucose 109 H 106 H Hemoglobin A1c Lactic Acid Calcium Ionized Calcium Total Bilirubin AST ALT Alkaline Phosphatase C-Reactive Protein Total Protein Albumin Complement C3 Complement C4 Crossmatch 02/07/18 02/08/18 02/08/18 07:45 08:16 08:16 WBC 3.7 L RBC 2.49 L Hgb 7.0 L Hct 21.5 L MCH RDW Plt Count Lymph % (Auto) [place] % (Auto) Lymph # [place] # Seg Neutrophils % Seg Neuts % (Manual) Lymphocytes % (Manual) Monocytes % (Manual) Eosinophils % (Manual) Nucleated RBC % Seg Neutrophils # Seg Neutrophils # Man Lymphocytes # (Manual) Monocytes # (Manual) PT INR POC ABG pH POC ABG pCO2 POC ABG pO2 VBG pH Sodium Potassium Chloride Carbon Dioxide BUN 48 H 52 H Creatinine 2.1 H 2.0 H Glucose POC Glucose Hemoglobin A1c Lactic Acid Calcium 8.1 L 8.3 L Ionized Calcium Total Bilirubin AST ALT Alkaline Phosphatase C-Reactive Protein Total Protein Albumin Complement C3 Complement C4 Crossmatch 02/08/18 02/09/18 02/09/18 16:35 00:19 05:31 WBC 3.7 L RBC 2.38 L Hgb 6.8 L Hct 20.3 L MCH RDW Plt Count Lymph % (Auto) [place] % (Auto) Lymph # [place] # Seg Neutrophils % Seg Neuts % (Manual) Lymphocytes % (Manual) Monocytes % (Manual) Eosinophils % (Manual) Nucleated RBC % Seg Neutrophils # Seg Neutrophils # Man Lymphocytes # (Manual) Monocytes # (Manual) PT INR POC ABG pH POC ABG pCO2 POC ABG pO2 VBG pH Sodium Potassium Chloride Carbon Dioxide BUN Creatinine Glucose POC Glucose 121 H 171 H Hemoglobin A1c Lactic Acid Calcium Ionized Calcium Total Bilirubin AST ALT Alkaline Phosphatase C-Reactive Protein Total Protein Albumin Complement C3 Complement C4 Crossmatch 02/09/18 02/09/18 02/10/18 05:31 17:17 00:16 WBC RBC Hgb Hct MCH RDW Plt Count Lymph % (Auto) [place] % (Auto) Lymph # [place] # Seg Neutrophils % Seg Neuts % (Manual) Lymphocytes % (Manual) Monocytes % (Manual) Eosinophils % (Manual) Nucleated RBC % Seg Neutrophils # Seg Neutrophils # Man Lymphocytes # (Manual) Monocytes # (Manual) PT INR POC ABG pH POC ABG pCO2 POC ABG pO2 VBG pH Sodium 146 H Potassium Chloride Carbon Dioxide BUN 48 H Creatinine 1.7 H Glucose POC Glucose 121 H 162 H Hemoglobin A1c Lactic Acid Calcium 8.0 L Ionized Calcium Total Bilirubin AST ALT Alkaline Phosphatase C-Reactive Protein Total Protein Albumin Complement C3 Complement C4 Crossmatch 02/10/18 02/10/18 02/10/18 11:58 17:04 17:58 WBC RBC Hgb Hct MCH RDW Plt Count Lymph % (Auto) [place] % (Auto) Lymph # [place] # Seg Neutrophils % Seg Neuts % (Manual) Lymphocytes % (Manual) Monocytes % (Manual) Eosinophils % (Manual) Nucleated RBC % Seg Neutrophils # Seg Neutrophils # Man Lymphocytes # (Manual) Monocytes # (Manual) PT INR POC ABG pH POC ABG pCO2 POC ABG pO2 VBG pH Sodium Potassium Chloride Carbon Dioxide BUN Creatinine Glucose POC Glucose 151 H 131 H Hemoglobin A1c Lactic Acid Calcium Ionized Calcium Total Bilirubin AST ALT Alkaline Phosphatase C-Reactive Protein Total Protein Albumin Complement C3 Complement C4 Crossmatch See Detail 02/11/18 02/11/18 02/11/18 00:08 07:40 07:40 WBC 4.3 L RBC 2.84 L Hgb 7.9 L Hct 24.6 L MCH RDW Plt Count Lymph % (Auto) [place] % (Auto) Lymph # [place] # Seg Neutrophils % Seg Neuts % (Manual) Lymphocytes % (Manual) Monocytes % (Manual) Eosinophils % (Manual) Nucleated RBC % Seg Neutrophils # Seg Neutrophils # Man Lymphocytes # (Manual) Monocytes # (Manual) PT INR POC ABG pH POC ABG pCO2 POC ABG pO2 VBG pH Sodium 150 H Potassium Chloride 109.5 H Carbon Dioxide BUN 35 H Creatinine Glucose POC Glucose 113 H Hemoglobin A1c Lactic Acid Calcium Ionized Calcium Total Bilirubin AST ALT Alkaline Phosphatase C-Reactive Protein Total Protein Albumin Complement C3 Complement C4 Crossmatch 02/11/18 02/11/18 02/12/18 12:36 17:37 06:09 WBC RBC Hgb Hct MCH RDW Plt Count Lymph % (Auto) [place] % (Auto) Lymph # [place] # Seg Neutrophils % Seg Neuts % (Manual) Lymphocytes % (Manual) Monocytes % (Manual) Eosinophils % (Manual) Nucleated RBC % Seg Neutrophils # Seg Neutrophils # Man Lymphocytes # (Manual) Monocytes # (Manual) PT INR POC ABG pH POC ABG pCO2 POC ABG pO2 VBG pH Sodium Potassium Chloride Carbon Dioxide BUN 28 H Creatinine Glucose POC Glucose 138 H 205 H Hemoglobin A1c Lactic Acid Calcium 8.0 L Ionized Calcium Total Bilirubin AST ALT Alkaline Phosphatase C-Reactive Protein Total Protein Albumin Complement C3 Complement C4 Crossmatch 02/12/18 02/12/18 02/12/18 06:09 13:06 16:53 WBC 4.0 L RBC 2.92 L Hgb 8.2 L Hct 25.5 L MCH RDW Plt Count Lymph % (Auto) [place] % (Auto) Lymph # [place] # Seg Neutrophils % Seg Neuts % (Manual) 71.0 H Lymphocytes % (Manual) Monocytes % (Manual) Eosinophils % (Manual) 5.0 H Nucleated RBC % Seg Neutrophils # Seg Neutrophils # Man Lymphocytes # (Manual) 0.7 L Monocytes # (Manual) PT INR POC ABG pH POC ABG pCO2 POC ABG pO2 VBG pH Sodium Potassium Chloride Carbon Dioxide BUN Creatinine Glucose POC Glucose 132 H 146 H Hemoglobin A1c Lactic Acid Calcium Ionized Calcium Total Bilirubin AST ALT Alkaline Phosphatase C-Reactive Protein Total Protein Albumin Complement C3 Complement C4 Crossmatch 02/13/18 02/13/18 02/13/18 01:23 04:36 12:45 WBC RBC Hgb Hct MCH RDW Plt Count Lymph % (Auto) [place] % (Auto) Lymph # [place] # Seg Neutrophils % Seg Neuts % (Manual) Lymphocytes % (Manual) Monocytes % (Manual) Eosinophils % (Manual) Nucleated RBC % Seg Neutrophils # Seg Neutrophils # Man Lymphocytes # (Manual) Monocytes # (Manual) PT INR POC ABG pH POC ABG pCO2 POC ABG pO2 VBG pH Sodium Potassium 3.3 L Chloride Carbon Dioxide BUN 25 H Creatinine Glucose POC Glucose 108 H 116 H Hemoglobin A1c Lactic Acid Calcium 8.0 L Ionized Calcium Total Bilirubin AST ALT Alkaline Phosphatase C-Reactive Protein Total Protein Albumin Complement C3 Complement C4 Crossmatch 02/13/18 02/14/18 02/14/18 17:46 00:16 06:04 WBC RBC Hgb Hct MCH RDW Plt Count Lymph % (Auto) [place] % (Auto) Lymph # [place] # Seg Neutrophils % Seg Neuts % (Manual) Lymphocytes % (Manual) Monocytes % (Manual) Eosinophils % (Manual) Nucleated RBC % Seg Neutrophils # Seg Neutrophils # Man Lymphocytes # (Manual) Monocytes # (Manual) PT INR POC ABG pH POC ABG pCO2 POC ABG pO2 VBG pH Sodium Potassium 3.4 L Chloride Carbon Dioxide BUN 20 H Creatinine Glucose POC Glucose 114 H 120 H Hemoglobin A1c Lactic Acid Calcium 7.9 L Ionized Calcium Total Bilirubin AST ALT Alkaline Phosphatase C-Reactive Protein Total Protein Albumin Complement C3 Complement C4 Crossmatch 02/14/18 02/14/18 02/15/18 12:09 17:23 01:26 WBC RBC Hgb Hct MCH RDW Plt Count Lymph % (Auto) [place] % (Auto) Lymph # [place] # Seg Neutrophils % Seg Neuts % (Manual) Lymphocytes % (Manual) Monocytes % (Manual) Eosinophils % (Manual) Nucleated RBC % Seg Neutrophils # Seg Neutrophils # Man Lymphocytes # (Manual) Monocytes # (Manual) PT INR POC ABG pH POC ABG pCO2 POC ABG pO2 VBG pH Sodium Potassium Chloride Carbon Dioxide BUN Creatinine Glucose POC Glucose 118 H 133 H 122 H Hemoglobin A1c Lactic Acid Calcium Ionized Calcium Total Bilirubin AST ALT Alkaline Phosphatase C-Reactive Protein Total Protein Albumin Complement C3 Complement C4 Crossmatch 02/15/18 02/15/18 02/17/18 11:34 18:14 11:47 WBC RBC Hgb Hct MCH RDW Plt Count Lymph % (Auto) [place] % (Auto) Lymph # [place] # Seg Neutrophils % Seg Neuts % (Manual) Lymphocytes % (Manual) Monocytes % (Manual) Eosinophils % (Manual) Nucleated RBC % Seg Neutrophils # Seg Neutrophils # Man Lymphocytes # (Manual) Monocytes # (Manual) PT INR POC ABG pH POC ABG pCO2 POC ABG pO2 VBG pH Sodium Potassium Chloride Carbon Dioxide BUN Creatinine Glucose POC Glucose 168 H 137 H 131 H Hemoglobin A1c Lactic Acid Calcium Ionized Calcium Total Bilirubin AST ALT Alkaline Phosphatase C-Reactive Protein Total Protein Albumin Complement C3 Complement C4 Crossmatch 02/19/18 02/19/18 02/20/18 11:47 22:10 12:08 WBC RBC Hgb Hct MCH RDW Plt Count Lymph % (Auto) [place] % (Auto) Lymph # [place] # Seg Neutrophils % Seg Neuts % (Manual) Lymphocytes % (Manual) Monocytes % (Manual) Eosinophils % (Manual) Nucleated RBC % Seg Neutrophils # Seg Neutrophils # Man Lymphocytes # (Manual) Monocytes # (Manual) PT INR POC ABG pH POC ABG pCO2 POC ABG pO2 VBG pH Sodium Potassium Chloride Carbon Dioxide BUN Creatinine Glucose POC Glucose 126 H 116 H 159 H Hemoglobin A1c Lactic Acid Calcium Ionized Calcium Total Bilirubin AST ALT Alkaline Phosphatase C-Reactive Protein Total Protein Albumin Complement C3 Complement C4 Crossmatch 02/20/18 16:29 WBC RBC Hgb Hct MCH RDW Plt Count Lymph % (Auto) [place] % (Auto) Lymph # [place] # Seg Neutrophils % Seg Neuts % (Manual) Lymphocytes % (Manual) Monocytes % (Manual) Eosinophils % (Manual) Nucleated RBC % Seg Neutrophils # Seg Neutrophils # Man Lymphocytes # (Manual) Monocytes # (Manual) PT INR POC ABG pH POC ABG pCO2 POC ABG pO2 VBG pH Sodium Potassium Chloride Carbon Dioxide BUN Creatinine Glucose POC Glucose 158 H Hemoglobin A1c Lactic Acid Calcium Ionized Calcium Total Bilirubin AST ALT Alkaline Phosphatase C-Reactive Protein Total Protein Albumin Complement C3 Complement C4 Crossmatch Allied health notes reviewed: nursing
[2018-02-20] MEDS: APRESOLINE IV PRN (21:43)
[2018-02-21 08:14] VITALS: BP 136/74
[2018-02-21] MEDS: PULMICORT IH SCH (08:51)
[2018-02-21] MEDS: BROVANA NEBU IH SCH (08:51)
[2018-02-21] MEDS: TYLENOL FEEDTUBE PRN (09:32)
[2018-02-21] MEDS: PEPCID PO SCH (09:32)
[2018-02-21] MEDS ORDERED: PERCOCET 5/325 PO PRN (10:08)
--- NOTE | 2018-02-21 12:37 | Progress Note ---
Assessment and Plan Assessment and plan: 62-year-old admitted with hx of htn, polysubstance drug abuse per family, admitted after she was found unresponsive found in the bathroom pf a friends home, noted with severe lactic acidosis, hypotensive on vasopressors, hypercapeniac respiratory failure requiring intubation . Patient now extubated and has been transferred to the floor. Patient has had chest tube removed. she did sustain necrotic injury to the bilateral upper and lower ext limbs. -Acute combined respiratory failure on ventilator greater than 96 hours status post extubation: Resoved, continue oxygen via nasal cannula as needed -Septic shock, resolved, s/p vasopressors -Acute on chronic combined heart failure improved, Cardiology has signed off -Large left pleural effusion status post left chest tube. Chest tube was removed by interventional radiology -Acute renal failure due to ATN present on admission, improved. Patient previously on hemodialysis which now is on hold. Follow-up BMP -Acute toxic metabolic encephalopathy, POA. Resolved. -Shock liver/ischemic hepatitis. Resolved. 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 Continue pain control. -Pelvic masses, ?incidental findings. [employer] follow-up as outpatient. -DVT prophylaxis: sq heparin -Disposition. please see discharge note. patient discharged yesterday but awaiting placement History Interval history: Patient seen and examined, doing well on the medical floor no new event noted. Hospitalist Physical - Physical exam Narrative exam: GENERAL: Elderly WF lying on bed intubated and unresponsive HEENT: Normocephalic. Atraumatic. No conjunctival congestion or icterus. Patient has dry mucous membranes. NECK: Supple. Trachea midline. ET tube in place CHEST/LUNGS: Clear to auscultated bilaterally, breathing under vent. Positive for a few wheezes, crackles or rhonchi. HEART/CARDIOVASCULAR: tachycardic. S1 and S2 positive. ABDOMEN: Abdomen is soft, nontender. Patient has normal bowel sounds. SKIN: There is no rash. Warm and dry. NEURO: Sedated, does not follow any command MUSCULOSKELETAL: No joint effusion EXTRIMITY: No edema, cyanosis of the toes and fingers possible ischmia, fingers much worse PSYCH: Unable to assess skin: multiple tattoes - Constitutional Vitals: Temp Pulse Resp BP Pulse Ox 97.9 F 90 18 136/74 98 02/21/18 07:18 02/21/18 08:49 02/21/18 08:49 02/21/18 07:18 02/21/18 08:49 General appearance: Present: no acute distress Results - Labs CBC & Chem 7: 02/12/18 06:09 02/14/18 06:04 Labs: Laboratory Last Values WBC 4.0 K/mm3 (4.5-11.0) L 02/12/18 06:09 RBC 2.92 M/mm3 (3.65-5.03) L 02/12/18 06:09 Hgb 8.2 gm/dl (10.1-14.3) L 02/12/18 06:09 Hct 25.5 % (30.3-42.9) L 02/12/18 06:09 MCV 88 fl (79-97) 02/12/18 06:09 MCH 28 pg (28-32) 02/12/18 06:09 MCHC 32 % (30-34) 02/12/18 06:09 RDW 14.5 % (13.2-15.2) 02/12/18 06:09 Plt Count 296 K/mm3 (140-440) 02/12/18 06:09 Lymph % (Auto) 11.2 % (13.4-35.0) L 02/06/18 07:52 [place] % (Auto) 8.5 % (0.0-7.3) H 02/06/18 07:52 Eos % (Auto) 2.7 % (0.0-4.3) 02/06/18 07:52 Baso % (Auto) 0.7 % (0.0-1.8) 02/06/18 07:52 Lymph # 0.6 K/mm3 (1.2-5.4) L 02/06/18 07:52 [place] # 0.5 K/mm3 (0.0-0.8) 02/06/18 07:52 Eos # 0.2 K/mm3 (0.0-0.4) 02/06/18 07:52 Baso # 0.0 K/mm3 (0.0-0.1) 02/06/18 07:52 Add Manual Diff Complete 02/12/18 06:09 Total Counted 100 02/12/18 06:09 Seg Neutrophils % 76.9 % (40.0-70.0) H 02/06/18 07:52 Seg Neuts % (Manual) 71.0 % (40.0-70.0) H 02/12/18 06:09 Band Neutrophils % 1.0 % 02/12/18 06:09 Lymphocytes % (Manual) 17.0 % (13.4-35.0) 02/12/18 06:09 Reactive Lymphs % (Man) 1.0 % 02/12/18 06:09 Monocytes % (Manual) 5.0 % (0.0-7.3) 02/12/18 06:09 Eosinophils % (Manual) 5.0 % (0.0-4.3) H 02/12/18 06:09 Basophils % (Manual) 0 % (0.0-1.8) 02/12/18 06:09 Metamyelocytes % 0 % 02/12/18 06:09 Myelocytes % 0 % 02/12/18 06:09 Promyelocytes % 0 % 02/12/18 06:09 Blast Cells % 0 % 02/12/18 06:09 Nucleated RBC % Not Reportable 02/12/18 06:09 Seg Neutrophils # 4.3 K/mm3 (1.8-7.7) 02/06/18 07:52 Seg Neutrophils # Man 2.8 K/mm3 (1.8-7.7) 02/12/18 06:09 Band Neutrophils # 0.0 K/mm3 02/12/18 06:09 Lymphocytes # (Manual) 0.7 K/mm3 (1.2-5.4) L 02/12/18 06:09 Abs React Lymphs (Man) 0.0 K/mm3 02/12/18 06:09 Monocytes # (Manual) 0.2 K/mm3 (0.0-0.8) 02/12/18 06:09 Eosinophils # (Manual) 0.2 K/mm3 (0.0-0.4) 02/12/18 06:09 Basophils # (Manual) 0.0 K/mm3 (0.0-0.1) 02/12/18 06:09 Metamyelocytes # 0.0 K/mm3 02/12/18 06:09 Myelocytes # 0.0 K/mm3 02/12/18 06:09 Promyelocytes # 0.0 K/mm3 02/12/18 06:09 Blast Cells # 0.0 K/mm3 02/12/18 06:09 WBC Morphology Not Reportable 02/12/18 06:09 Hypersegmented Neuts Not Reportable 02/12/18 06:09 Hyposegmented Neuts Not Reportable 02/12/18 06:09 Hypogranular Neuts Not Reportable 02/12/18 06:09 Smudge Cells Not Reportable 02/12/18 06:09 Toxic Granulation Not Reportable 02/12/18 06:09 Toxic Vacuolation Not Reportable 02/12/18 06:09 Dohle Bodies Not Reportable 02/12/18 06:09 Pelger-Huet Anomaly Not Reportable 02/12/18 06:09 Opal Rods Not Reportable 02/12/18 06:09 Platelet Estimate Cons 02/12/18 06:09 Clumped Platelets Not Reportable 02/12/18 06:09 Plt Clumps, EDTA Not Reportable 02/12/18 06:09 Large Platelets Not Reportable 02/12/18 06:09 Giant Platelets Not Reportable 02/12/18 06:09 Platelet Satelliting Not Reportable 02/12/18 06:09 Plt Morphology Comment Not Reportable 02/12/18 06:09 RBC Morphology Not Reportable 02/12/18 06:09 Dimorphic RBCs Not Reportable 02/12/18 06:09 Polychromasia Not Reportable 02/12/18 06:09 Hypochromasia Not Reportable 02/12/18 06:09 Poikilocytosis Not Reportable 02/12/18 06:09 Anisocytosis 1+ 02/12/18 06:09 Microcytosis Not Reportable 02/12/18 06:09 Macrocytosis Not Reportable 02/12/18 06:09 Spherocytes Not Reportable 02/12/18 06:09 Pappenheimer Bodies Not Reportable 02/12/18 06:09 Sickle Cells Not Reportable 02/12/18 06:09 Target Cells Not Reportable 02/12/18 06:09 Tear Drop Cells Not Reportable 02/12/18 06:09 Ovalocytes Not Reportable 02/12/18 06:09 Stomatocytes 1+ 02/12/18 06:09 Helmet Cells Not Reportable 02/12/18 06:09 [place] Bodies Not Reportable 02/12/18 06:09 [place] Rings Not Reportable 02/12/18 06:09 [place] Cells Not Reportable 02/12/18 06:09 Bite Cells Not Reportable 02/12/18 06:09 Crenated Cell Not Reportable 02/12/18 06:09 Elliptocytes Not Reportable 02/12/18 06:09 Acanthocytes (Spur) Not Reportable 02/12/18 06:09 Rouleaux Not Reportable 02/12/18 06:09 Hemoglobin C Crystals Not Reportable 02/12/18 06:09 Schistocytes Not Reportable 02/12/18 06:09 Malaria parasites Not Reportable 02/12/18 06:09 Brock Bodies Not Reportable 02/12/18 06:09 Hem Pathologist Commnt No 02/12/18 06:09 PT 17.5 Sec. (12.2-14.9) H 01/20/18 07:00 INR 1.35 (0.87-1.13) H 01/20/18 07:00 Heparin Anti-Xa, Unfract Negative (Negative) 01/20/18 11:03 POC ABG pH 7.441 (7.35-7.45) 02/04/18 15:05 POC ABG pCO2 43.6 (35-45) 02/04/18 15:05 POC ABG pO2 109 (80-105) H 02/04/18 15:05 POC ABG HCO3 29.7 02/04/18 15:05 POC ABG Total CO2 31 02/04/18 15:05 POC ABG O2 Sat 98 02/04/18 15:05 POC ABG Base Excess 6 02/04/18 15:05 VBG pH 7.273 (7.320-7.420) L 01/17/18 16:54 FiO2 35 % 02/04/18 15:05 Sodium 142 mmol/L (137-145) 02/14/18 06:04 Potassium 3.4 mmol/L (3.6-5.0) L 02/14/18 06:04 Chloride 103.0 mmol/L (98-107) 02/14/18 06:04 Carbon Dioxide 25 mmol/L (22-30) 02/14/18 06:04 Anion Gap 17 mmol/L 02/14/18 06:04 BUN 20 mg/dL (7-17) H 02/14/18 06:04 Creatinine 0.9 mg/dL (0.7-1.2) 02/14/18 06:04 Estimated GFR > 60 ml/min 02/14/18 06:04 BUN/Creatinine Ratio 22 % 02/14/18 06:04 Glucose 91 mg/dL (65-100) 02/14/18 06:04 POC Glucose 101 (70-105) 02/21/18 06:18 Hemoglobin A1c 9.0 % (4-6) H 01/17/18 22:36 Lactic Acid 1.40 mmol/L (0.7-2.0) 01/24/18 15:08 Calcium 7.9 mg/dL (8.4-10.2) L 02/14/18 06:04 Ionized Calcium 3.9 mg/dL (4.8-5.6) L 01/29/18 06:00 Magnesium 1.80 mg/dL (1.7-2.3) 01/29/18 06:00 Total Bilirubin 0.50 mg/dL (0.1-1.2) 01/29/18 06:00 AST 21 units/L (5-40) 01/29/18 06:00 ALT 53 units/L (7-56) 01/29/18 06:00 Alkaline Phosphatase 88 units/L (35-129) 01/29/18 06:00 C-Reactive Protein 3.30 mg/dL (0.00-1.30) H 01/24/18 15:08 Total Protein 4.5 g/dL (6.3-8.2) L 01/29/18 06:00 Albumin 2.0 g/dL (3.9-5) L 01/29/18 06:00 Albumin/Globulin Ratio 0.8 % 01/29/18 06:00 Serotonin Release Assay See scanned report 01/20/18 11:03 Random Vancomycin 19.8 ug/mL (0-40.0) 01/27/18 05:20 ALISA Screen Negative (Negative) 01/20/18 Unknown Heparin-induced Plt Ab Negative (Negative) 01/20/18 11:03 UF Heparin High Dose 0 % Release 01/20/18 11:03 NEGRITA UFH Low Dose 0.1 0 % Release 01/20/18 11:03 NEGRITA UFH Low Dose 0.5 0 % Release 01/20/18 11:03 Complement C3 47 mg/dL (83-193) L 01/20/18 Unknown Complement C4 9 mg/dL (15-57) L 01/20/18 Unknown Hepatitis A IgM Ab Non-reactive (NonReactive) 01/20/18 07:00 Hep Bs Antigen Non-reactive (Negative) 01/20/18 07:00 Hep B Core IgM Ab Non-reactive (NonReactive) 01/20/18 07:00 Hepatitis C Antibody Non-reactive (NonReactive) 01/20/18 07:00 HIV 1&2 Antibody Rapid Non react (Non React) 01/20/18 Unknown HIV P24 Antigen Non react (Non React) 01/20/18 Unknown Blood Type B NEGATIVE 02/10/18 17:04 Antibody Screen Negative 02/10/18 17:04 Crossmatch See Detail 02/10/18 17:04
== END 2018-02-21 12:31 | disposition hospice, home (50) | DRG 870 ==
LOC: ED 15:17 → CC1 22:07 → 4A 02-05 20:55
PROVIDERS: ADMIT Internal Medicine; ATTEND Internal Medicine
PROC: 5A1955Z Respiratory Ventilation, Greater than 96 Consecutive Hours (ICD-10-PCS; 2018-01-17)
PROC: 4A033R1 Measurement of Arterial Saturation, Peripheral, Percutaneous Approach (ICD-10-PCS; 2018-01-17)
PROC: 0BH17EZ Insertion of Endotracheal Airway into Trachea, Via Natural or Artificial Opening (ICD-10-PCS; 2018-01-17)
PROC: 02HV33Z Insertion of Infusion Device into Superior Vena Cava, Percutaneous Approach (ICD-10-PCS; 2018-01-17)
PROC: B548ZZA Ultrasonography of Superior Vena Cava, Guidance (ICD-10-PCS; 2018-01-17)
PROC: 5A1D70Z Performance of Urinary Filtration, Intermittent, Less than 6 Hours Per Day (ICD-10-PCS; 2018-01-18)
PROC: 06HM33Z Insertion of Infusion Device into Right Femoral Vein, Percutaneous Approach (ICD-10-PCS; 2018-01-18)
PROC: B54BZZA Ultrasonography of Right Lower Extremity Veins, Guidance (ICD-10-PCS; 2018-01-18)
PROC: 5A1D70Z Performance of Urinary Filtration, Intermittent, Less than 6 Hours Per Day (ICD-10-PCS; 2018-01-20)
PROC: 5A1D70Z Performance of Urinary Filtration, Intermittent, Less than 6 Hours Per Day (ICD-10-PCS; 2018-01-21)
PROC: 5A1D70Z Performance of Urinary Filtration, Intermittent, Less than 6 Hours Per Day (ICD-10-PCS; 2018-01-23)
PROC: 5A1D70Z Performance of Urinary Filtration, Intermittent, Less than 6 Hours Per Day (ICD-10-PCS; 2018-01-24)
PROC: 5A1D70Z Performance of Urinary Filtration, Intermittent, Less than 6 Hours Per Day (ICD-10-PCS; 2018-01-27)
PROC: 0W9B30Z Drainage of Left Pleural Cavity with Drainage Device, Percutaneous Approach (ICD-10-PCS; 2018-01-28)
PROC: 5A1D70Z Performance of Urinary Filtration, Intermittent, Less than 6 Hours Per Day (ICD-10-PCS; 2018-01-29)
PROC: 5A1D70Z Performance of Urinary Filtration, Intermittent, Less than 6 Hours Per Day (ICD-10-PCS; 2018-01-31)
PROC: 5A1D70Z Performance of Urinary Filtration, Intermittent, Less than 6 Hours Per Day (ICD-10-PCS; 2018-02-03)
PROC: 02HV33Z Insertion of Infusion Device into Superior Vena Cava, Percutaneous Approach (ICD-10-PCS; 2018-02-03)
PROC: B548ZZA Ultrasonography of Superior Vena Cava, Guidance (ICD-10-PCS; 2018-02-03)
PROC: 5A1D70Z Performance of Urinary Filtration, Intermittent, Less than 6 Hours Per Day (ICD-10-PCS; 2018-02-05)
PROC: 30233N1 Transfusion of Nonautologous Red Blood Cells into Peripheral Vein, Percutaneous Approach (ICD-10-PCS; principal; 2018-02-11)
PROC: 0WP8X0Z Removal of Drainage Device from Chest Wall, External Approach (ICD-10-PCS; 2018-02-14)
DX: A41.9 Sepsis, unspecified organism (principal); J69.0 Pneumonitis due to inhalation of food and vomit; R65.21 Severe sepsis with septic shock; N17.0 Acute kidney failure with tubular necrosis; G92 Toxic encephalopathy; K72.00 Acute and subacute hepatic failure without coma; I50.43 Acute on chronic combined systolic (congestive) and diastolic (congestive) heart failure; J96.22 Acute and chronic respiratory failure with hypercapnia; A48.0 Gas gangrene; J93.83 Other pneumothorax; E44.0 Moderate protein-calorie malnutrition; J90 Pleural effusion, not elsewhere classified; D68.9 Coagulation defect, unspecified; I70.269 Atherosclerosis of native arteries of extremities with gangrene, unspecified extremity; Z88.0 Allergy status to penicillin; E11.649 Type 2 diabetes mellitus with hypoglycemia without coma; Z79.4 Long term (current) use of insulin; Z79.899 Other long term (current) drug therapy; Z95.0 Presence of cardiac pacemaker; E83.51 Hypocalcemia; K75.89 Other specified inflammatory liver diseases
CPT/HCPCS: 32557; 36415; 36600; 70450; 71045; 71250; 71260; 74018; 74176; 76770; 76856; 80048; 80053; 80074; 80202; 82140; 82330; 82803; 82805; 82962; 83036; 83735; 85007; 85025; 85027; 85610; 86022; 86038; 86140; 86160; 86850; 86900; 86901; 86920; 87040; 87070; 87205; 87806; 90686; 93005; 93010; 93306; 93925; 93930; 93970; 94002; 94003; 94640; 94760; 95819; 96365; 96367; 96375; 96376; C1729; J0330; J0360; J1170; J1200; J1265; J1644; J1815; J1956; J2060; J2250; J2270; J2543; J2704; J2765; J2930; J2997; J3010; J3370; J7030; J7040; J7042; J7050; J7070; J7512; P9016; Q9967

== ENCOUNTER 2018-02-23 20:07 | Emergency (ER) | payer SELFPAY ==
--- NOTE | 2018-02-23 20:32 | Emergency Department Report ---
ED General Adult HPI - General Stated complaint: CARDIAC ARREST Time Seen by Provider: 02/23/18 20:27 Source: EMS - History of Present Illness Initial comments: 68-year-old female with significant past medical history of COPD, diabetes, peripheral vascular disease, gangrene of bilateral feet was brought in as a cardiac arrest with downtime of about 40 minutes. Patient was unresponsive at home and the squad was called. Patient was recently admitted in the hospital for septic shock and was discharged about 2 days ago. At the time of arrival patient did not have any pulse patient was given multiple rounds of epi on the field. Patient was given of 4 rounds of epi in the ER for rounds of pulse checks were done patient did not have any pulses were the time in the ER. A bedside ultrasound was done which did not show any cardiac activity. Patient's daughter Arely was bedside, and did not want anymore CPR done and wanted RESUSCITATIVE efforts to be stopped. Patient's daughter is the power of claim attorney for the patient and per her to stop all CPR and patient was pronounced . MD Complaint: cardiac arrest -: Sudden Severity scale (0 -10): 10 - Related Data Previous Rx's Medication Instructions Recorded Last Taken Type ALBUTEROL Inhaler [ProAir HFA 2 puff IH QID PRN #1 inhalation 02/20/18 Unknown Rx Inhaler] Arformoterol Nebu [Brovana Nebu] 15 mcg IH Q12HRT #60 ml 02/20/18 Unknown Rx Budesonide [Pulmicort Respules] 0.5 mg IH Q12HRT #60 nebu 02/20/18 Unknown Rx Famotidine [Pepcid] 20 mg PO DAILY #30 tablet 02/20/18 Unknown Rx Lisinopril [Zestril] 10 mg PO DAILY #30 tablet 02/20/18 Unknown Rx QUEtiapine [SEROquel] 200 mg PO QHS #30 tablet 02/20/18 Unknown Rx traMADol [Ultram] 50 mg PO Q6HR PRN #20 tablet 02/20/18 Unknown Rx Allergies Allergy/AdvReac Type Severity Reaction Status Date / Time Penicillins Allergy Hives Verified 01/17/18 15:27 ED Review of Systems ROS: Stated complaint: CARDIAC ARREST Other details as noted in HPI Comment: Unobtainable due to pts medical conditions ED Past Medical Hx - Past Medical History Hx Hypertension: Yes Hx Heart Attack/AMI: Yes Hx COPD: Yes Hx HIV: No - Social History Smoking Status: Unknown if ever smoked - Medications Home Medications: Home Medications Medication Instructions Recorded Confirmed Last Taken Type ALBUTEROL Inhaler [ProAir HFA 2 puff IH QID PRN #1 inhalation 02/20/18 Unknown Rx Inhaler] Arformoterol Nebu [Brovana Nebu] 15 mcg IH Q12HRT #60 ml 02/20/18 Unknown Rx Budesonide [Pulmicort Respules] 0.5 mg IH Q12HRT #60 nebu 02/20/18 Unknown Rx Famotidine [Pepcid] 20 mg PO DAILY #30 tablet 02/20/18 Unknown Rx Lisinopril [Zestril] 10 mg PO DAILY #30 tablet 02/20/18 Unknown Rx QUEtiapine [SEROquel] 200 mg PO QHS #30 tablet 02/20/18 Unknown Rx traMADol [Ultram] 50 mg PO Q6HR PRN #20 tablet 02/20/18 Unknown Rx ED Physical Exam - General General appearance: other (pt is unresponsive and is getting bagged in the ER) - Eye Eye exam: Present: other (pupils are dilated, fixed, non responsive to light) - ENT ENT exam: Present: other (pt was intubated) - Neck Neck exam: Present: normal inspection - Respiratory Respiratory exam: Present: other (pt is not breathing and being intubated) - Cardiovascular Cardiovascular Exam: Present: other (no heart sounds heard) - GI/Abdominal GI/Abdominal exam: Present: distended - Neurological Exam Neurological exam: Present: other (pt is unresponsive, not breathing) - Intubation Sedative: none Laryngoscope: Juan Size: 4 ET Tube Size: 7.5 Tube Secured Depth (cm): 22 Critical care attestation.: If time is entered above; I have spent that time in minutes in the direct care of this critically ill patient, excluding procedure time. ED Disposition Referrals: PRIMARY CARE, [Primary Care Provider] - 3-5 Days
[2018-02-23] MEDS ORDERED: D50W (25GM) Syringe IV ONE (23:00)
[2018-02-23] MEDS ORDERED: ADRENALIN ONE (23:00)
== END 2018-02-24 00:15 ==
LOC: ED 20:07
DX: I46.9 Cardiac arrest, cause unspecified (principal); E11.9 Type 2 diabetes mellitus without complications; J44.9 Chronic obstructive pulmonary disease, unspecified
CPT/HCPCS: 31500; 82962; 99285; J0171; 92950